=== PATIENT | female | born 1980 | race Caucasian/White ===

== ENCOUNTER 2017-01-29 21:24 | Observation (INO) | payer MEDICAID, SELFPAY ==
[2017-01-29] VITALS (8 sets, daily range): BP systolic 115–186; BP diastolic 80–134; PULSE 58–71; RESP 14–20; TEMP 37.1; O2SAT 95–96; BMI 30.5
--- NOTE | 2017-01-29 21:51 | RAD_ITS ---
STUDY: X-RAY CHEST REASON FOR EXAM: Female, 36 years old. Chest pain TECHNIQUE: Frontal and lateral views of the chest. COMPARISON: January 15, 2017 FINDINGS: There are minimal coarse opacities in both lung bases. There is no focal airspace disease. There is no demonstrated pleural abnormality. Normal size heart. Normal mediastinum and neyda. Normal visualized pulmonary arteries. Normal visualized aortic arch and descending thoracic aorta. Normal visualized thoracic spine. Normal visualized ribs, clavicles, and shoulders. Sternotomy wires are present. There is no demonstrated abnormality of the visualized soft tissue structures of the upper abdomen. RAD/Chest PA and Lateral IMPRESSION: No acute cardiopulmonary abnormalities or changes. There are mild chronic changes in the lung bases. Electronically Signed: Corinne Iglesias MD at 22:28 EDT Tel [phone], Service support ,
--- NOTE | 2017-01-29 21:51 | EKG12_ITS ---
Test Reason : CP Blood Pressure : / mmHG Vent. Rate : 065 BPM Atrial Rate : 065 BPM P-R Int : 140 ms QRS Dur : 086 ms QT Int : 458 ms P-R-T Axes : 048 025 066 degrees QTc Int : 476 ms Normal sinus rhythm Nonspecific ST and T wave abnormality Abnormal ECG Confirmed by RELL LANGSTON ([id number]), communications editor OANH AGARWAL ([id number]) on 01/31/2017 10:54:46 AM Referred By: SUMAN Confirmed By:RELL LANGSTON
[2017-01-29] MEDS: Ondansetron 4 MG/2 ML Vial IV (21:57)
[2017-01-29 21:59] LABS: Absolute Lymphocyte Count 1.42 X10^3/ul (0.83-4.51); Basophil# 0.03 X10^3/uL; Basophil% 0.6 % (0-1); Eosinophil# 0.15 X10^3/uL; Eosinophils% 2.8 % (0-5); Hematocrit 36.2 % (37-47); Hemoglobin 12.4 g/dl (12.0-15.0); Lymphocyte # 1.42 X10^3/ul (4.0); Lymphocyte % 26.2 % (19-41); Mean Corp Hgb Conc 34.3 g/gl (32-36); Mean Corpuscular Hgb 30.2 pg (27.0-32.0); Mean Corpuscular Volume 88.3 fL (81-99); Mean Platelet Vol. 10.3 fl (6.2-12.0); Monocyte# 0.86 X10^3/uL; Monocyte% 15.8 % (0-10); Neutrophil # 2.96 X10^3/uL (2.7-7.7); Neutrophil % 54.4 % (47-70); Platelet Count 215 K/mm3 (150-450); RBC Distribution Width CV 13.6 % (11.6-14.6); RBC Distribution Width SD 43.6 fl (35.1-43.9); White Blood Count 5.4 K/mm3 (4.4-11.0)
[2017-01-29 22:00] LABS: POSITIVE COUNT NO; POSITIVE DIFFERENTIAL NO; POSITIVE MORPHOLOGY NO
[2017-01-29 22:05] LABS: International Normalized Ratio 1.1; Prothrombin Time (Protime)PT. 13.6 SECONDS (11.7-14.9)
[2017-01-29 22:15] LABS: Anion Gap 6 (5-15); BUN 11 mg/dL (7-18); BUN/Creat Ratio 14.3 RATIO (10-20); Calcium,Total 8.6 mg/dL (8.5-10.1); Chloride 108 mmol/L (98-107); Creatinine, Serum 0.77 mg/dL (0.55-1.02); EST Glomerular Filtration Rate 89 mL/min (>60); Est Glom Filt Rate - Afr Amer 108 mL/min (>60); Estimated Creatinine Clearance 85.54 ml/min; Glucose 106 mg/dL (70-110); Potassium 3.5 mmol/L (3.5-5.1); Sodium Level 141 mmol/L (136-145)
[2017-01-29 22:28] LABS: BNP,B-Type NATRIURETIC PEPTIDE 101.5 pg/mL (0-100)
--- NOTE | 2017-01-29 23:05 | ED.VISSUMM ---
- ER Visit Summary Date of Service: 01/29/17 Chief Complaint: Chest pain History of Present Illness: The patient is a 36 F who presents with chest pain. It began about 1 hour ago. She complains of severe left-sided chest heaviness. She has associated shortness of breath on exertion over the past couple of days. She denies any nausea or vomiting. No diaphoresis. She has had some cough and mucus chills and sweats as well. She has had a temperature up to 100.5. She has accompanied medical history including aortic valve repair atrial septal defect repair cardiac catheterization pulmonary hypertension. She also had an acute respiratory failure earlier this year which was of uncertain etiology but did improve with steroid treatment. Physical Examination: Initial blood pressure 174/110 afebrile pulse ox 95% on room air Patient appears uncomfortable Mucous membranes are moist Heart is regular rate and rhythm Diminished air exchange bilaterally and tachypneic but no rales rhonchi or wheezing Abdomen soft Alert and oriented with no focal or lateralizing neurological deficits Test Results: EKG shows sinus rhythm at a rate of [address] there is some subtle ST depression in V2 through V4 as well as lateral T-wave inversions. CBC BMP unremarkable. Troponin negative. BNP 101. INR normal at 1.1. Chest x-ray shows no acute process. Emergency Department Course and Treatment: Patient was given sublingual nitroglycerin as well as morphine and Zofran. Workup notable for EKG changes but otherwise negative. I do feel she needs cardiac monitoring repeat EKGs and cardiac enzymes. She was discussed with the hospitalist and admitted. Treatment Plan: [] Disposition: Admit Impression: Chest pain Hypertension Nonspecific EKG changes ED Disposition - Plan for ED Patient: Chief Complaint: Chest Pain Referrals: Bill Dai MD [Primary Care Provider] -
--- NOTE | 2017-01-29 23:16 | PCM.HP.STD ---
Problem List (1) Chest pain Status: Acute (2) SOB (shortness of breath) Status: Acute (3) Cough Status: Acute History of Present Illness Date of Admission: 01/30/17 Chief Complaint: cough and chest pain The patient is a 36 year old F she reports some cough over the past few days, nothing came up she had on and off chest pains center and pressure like, some more over the the left over the last few days. she then had more significant chest pressure last night at 9:30 central heaviness pressure like worse with exhaling, frequent coughing happens at rest, she has not exerted herself to see if gets worse with exertion. Past Medical History Past Medical History (Chronic Problems): Chronic Problems Tricuspid regurgitation (Chronic) Pulmonary hypertension (Chronic) Seizure disorder (Chronic) Hypertension (Chronic) AI (aortic insufficiency) (Chronic) Fibromyalgia (Chronic) Anxiety disorder (Chronic) age17,mitral valve prolapse,bicuspid aor (Chronic) atrial septic defect- repaired (Chronic) Arthritis (Chronic) Exercise-induced asthma (Chronic) Migraine (Chronic) Syringomyelia (Chronic) Leiomyosarcoma (Chronic) Allergies amitriptyline Allergy (Verified 01/29/17 21:26) Other states rhabdomyolosis from it amoxicillin [Amoxicillin] Allergy (Verified 01/29/17 21:26) Rash erythromycin base [Erythromycin Base] Allergy (Verified 01/29/17 21:26) Rash levofloxacin [From Levaquin] Allergy (Verified 01/29/17 21:26) Swelling milnacipran Allergy (Verified 01/29/17 21:26) Other states got rhabdomyolysis from it milnacipran HCl [From Savella] Allergy (Verified 01/29/17 21:26) Other states had rhabdomyolysis acetaminophen [From Tylenol] Adverse Reaction (Mild, Verified 01/29/17 21:26) Vomiting Only when taking in large amounts celecoxib [From Celebrex] Adverse Reaction (Verified 01/29/17 21:26) Other suicidal thoughts diphenhydramine HCl [From Benadryl] Adverse Reaction (Verified 01/29/17 21:26) muscle spasms duloxetine HCl [From Cymbalta] Adverse Reaction (Verified 01/29/17 21:26) Other states causes suicidal thoughts meloxicam Adverse Reaction (Verified 01/29/17 21:26) Swelling of legs/chest pain Home Medications: Ambulatory Orders Medication Instructions Recorded Gabapentin [Neurontin] 400 mg PO 4X/DAY 12/23/15 Tizanidine HCl [Zanaflex] 4 mg PO Q8H PRN 12/23/15 Clonazepam [Klonopin] 0.5 mg PO QHS 02/23/16 Fluoxetine [Prozac] 40 mg PO DAILY 03/15/16 MedroxyPROGESTERone [Depo-Provera] 150 mg IM .[id number] 03/15/16 Carvedilol [Coreg (Beta Ector)] 6.25 mg PO BID #60 tablet 09/27/16 Famotidine [Pepcid] 20 mg PO BID #60 tablet 09/27/16 Levetiracetam [Keppra] 1,500 mg PO BID #180 tablet 09/27/16 Trazodone HCl [Desyrel] 150 mg PO HS #30 tablet 09/27/16 Albuterol Inhaler [Ventolin Hfa 1 puff INHALATION Q4H PRN PRN 10/02/16 (SP)] Naproxen [Naprosyn] 660 mg PO BID 10/02/16 Surgical History: adenoidectomy, - - 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 repair 2000, mitral valve repair, repair of atrial septal defect. History of , and left oophorectomy. BL TKR by Dr. 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 Denies: Edema Respiratory: Reports: Cough, Shortness of Breath, Shortness of breath at rest. Denies: Sputum production Gastrointestinal: Reports: Nausea. Denies: Diarrhea, Vomiting Genitourinary: Reports: Frequency. Denies: Dysuria, Hematuria Skin: Denies: Rash Neurological: Reports: Confusion. Denies: Balance problems, Change in Speech, Slurred speech Endocrine: Denies: Change in Body Habitus Hematologic/ Lymphatic: Denies: Adenopathy VTE Information - Inpt Only VTE Present on Admission: No Patient Problems: Active and Suspected Problems Chest pain (Acute) SOB (shortness of breath) (Acute) Cough (Acute) - Physical Exam General: Alert - mild resp distress due to coughing, some audible wheezing., - HEENT: Atraumatic, PERRLA Oral: Moist Mucosa Neck: Supple Lungs: Diminished, Wheezes Cardiovascular: Regular rate, Regular Rhythm, Normal S1, Normal S2, No murmurs Abdomen: Soft, Non Tender, Non-Distended Extremities: No edema Skin: No rashes Musculoskeletal: No Tenderness to Palpation of Joints or Extremities Lymphatic: No Cervical, Supraclavicular, or Inguinal Adenopathy Neurological: Neuro grossly intact Psych/Mental Status: - - mild distress due to sob Vital Signs Temp Pulse Resp BP Pulse Ox 98.7 F 63 14 136/100 96 01/29/17 21:27 01/29/17 22:39 01/29/17 22:39 01/29/17 22:39 01/29/17 22:39 Oxygen Flow Rate 2 Oxygen Delivery Method Room Air Weight: 178 lb 2.136 oz Body Mass Index (BMI) 30.5 Laboratory Tests Past 24 Hrs 01/29/17 01/29/17 01/29/17 21:40 21:40 21:40 WBC 5.4 RBC 4.10 L Hgb 12.4 Hct 36.2 L MCV 88.3 MCH 30.2 MCHC 34.3 RDW 13.6 RDW Differential 43.6 Plt Count 215 MPV 10.3 Immature Gran % (Auto) 0.200 Neut % (Auto) 54.4 Lymph % (Auto) 26.2 Hand % (Auto) 15.8 H Eos % (Auto) 2.8 Baso % (Auto) 0.6 Absolute Neuts (auto) 3.0 Absolute Lymphs (auto) 1.42 Total Counted Not Reportable PT 13.6 INR 1.1 Sodium 141 Potassium 3.5 Chloride 108 H Carbon Dioxide 27.0 Anion Gap 6 BUN 11 Creatinine 0.77 Estim Creat Clear Calc 85.54 Est GFR (MDRD) Af Amer 108 Est GFR (MDRD) Non-Af 89 BUN/Creatinine Ratio 14.3 Glucose 106 Calcium 8.6 Troponin I < 0.02 B-Natriuretic Peptide 01/29/17 21:40 WBC RBC Hgb Hct MCV MCH MCHC RDW RDW Differential Plt Count MPV Immature Gran % (Auto) Neut % (Auto) Lymph % (Auto) Hand % (Auto) Eos % (Auto) Baso % (Auto) Absolute Neuts (auto) Absolute Lymphs (auto) Total Counted PT INR Sodium Potassium Chloride Carbon Dioxide Anion Gap BUN Creatinine Estim Creat Clear Calc Est GFR (MDRD) Af Amer Est GFR (MDRD) Non-Af BUN/Creatinine Ratio Glucose Calcium Troponin I B-Natriuretic Peptide 101.5 H Assessment/Plan Active and Suspected Problems Chest pain (Acute) SOB (shortness of breath) (Acute) Cough (Acute) ekg with sinus rhythm, nonspecific st changes 1 chest pressure and coughing she had a recent admission at [facility] ~3weeks ago the was negative per verbal report reports neg heart cath in many years ago before valve surgery that was normal no known history of cad but sig valvular disease last echo in august of this year ef 53% and pulmonary htn pa pressure of 50 she is on oxygen with exertion at home reports recent neg sleep study, pft done show mild restrictive defect with decreased dlco she does have a history of pulmonary embulus/dvt but is off anticoagulation she was also admitted in august of this year with resp failure and intubation for 8 days though due to + ards/infection/possible steroid responsive interstitual lung disease. strongly suspect primary pulmonary process due to sob, cough wheezing and recent history complicated pulmonary history will draw cardiac enzymes refer to cardiology due to ongoing chest pain doubt infection was treated with zithromax 3 week ago and no sign of infection on cxr. However I did follow up with a CTA of the chest due to her history of PE and DVT there is no evidence of blood clots is no evidence of failure or infiltrate suspect return or flare up of interstitual lung disease could be causing her shortness of breath and symptoms I discussed with pulmonary in the past she was steroid responsive they may consider restarting steroids after reviewing her recent CAT scan asthma She is being supplied with oxygen and breathing treatments she does have some wheezing on exam 2history aortic valve surgery and asd repair no evidence of failure 3 anxiety cont klonipin 4h/o dvt and pe. off anticoagulation lovenox for dvt prophylaxis 5 h/o seizure disorder cont keppra
[2017-01-30] VITALS (20 sets, daily range): BP systolic 81–129; BP diastolic 46–78; PULSE 55–70; RESP 16–19; TEMP 36.2–37.1; O2SAT 93–99; BMI 29.8; BMI 29.9
--- NOTE | 2017-01-30 02:24 | CT_ITS ---
STUDY: CTA CHEST REASON FOR EXAM: Female, 36 years old. Chest pain and cough, history of leiomyosarcoma RADIATION DOSAGE (If Supplied By Facility): CTDIvol = ( 12.73 ) mGy, DLP = ( 517.35 ) mGycm TECHNIQUE: The examination was performed with the intravenous administration of 100ml ml of Isovue 370 contrast material. Post-processing of the angiographic images was performed, with multiplanar reformation and 3D reconstruction. Individualized dose optimization techniques were used for this CT. COMPARISON: 11/17/2016 FINDINGS: Median sternotomy wires. Normal enhancement of the main pulmonary artery and right and left pulmonary arteries. Normal enhancement of the bilateral peripheral pulmonary arteries. There is no demonstrated pulmonary embolism. Normal thoracic aorta and visualized great vessels. There is no demonstrated aortic dissection. Normal heart and pericardium. Normal mediastinum. Normal hilar regions. Normal visualized trachea and bronchi. The lungs are well expanded. Normal pulmonary parenchyma. Normal pleura. Normal chest wall structures. Remote right rib deformities. Scarring along the vertical fissure on the right. Normal visualized upper abdomen. CT/CTA Chest W/WO Contrast IMPRESSION: Normal CTA chest examination, without a demonstrated pulmonary embolism or arterial dissection. Electronically Signed: Bill Valdez MD at 3:33 EDT Tel , Service support ,
[2017-01-30] MEDS: Ondansetron 4 MG/2 ML Vial IV (04:40)
[2017-01-30 08:03] LABS: CRP, High Sensitivity Cardiac 0.58 mg/L
[2017-01-30 08:14] LABS: Erythrocyte Sedimentation Rate < 1 mm/hr (0-20)
[2017-01-30] MEDS: oxyCODONE 5 MG Tablet PO ×4 (08:16→21:35)
[2017-01-30] MEDS: Gabapentin 400 MG Capsule PO ×4 (08:16→21:32)
--- NOTE | 2017-01-30 09:22 | PCM.CONS.C ---
Problem List (1) asd repair Status: Acute (2) H/O aortic valve repair Status: Acute (3) Chest pain Status: Acute (4) Cough Status: Acute (5) SOB (shortness of breath) Status: Acute (6) Pulmonary hypertension Status: Chronic Reason for Consult Date of Consultation: 01/30/17 Reason for Consultation: Chest pain, history of ASD repair, history of aortic valve repair, mitral valve prolapse, hypertension, tobacco abuse. History of Present Illness: The patient is a 36 year old F, with multiple medical problems, recently admitted for pneumonia around August 2016 which apparently deteriorated to the point where she required intubation. From a cardiac standpoint she has a history of ASD repair and supposedly aortic valve repair performed at the [facility] in 2000. 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 Daigle in the [facility]. The patient also has a history of mild global LV dysfunction with an EF of 50%, moderate pulmonary hypertension with an RVSP of 50 mmHg, with recent echocardiogram dated 09/16/16. The patient reports that she had a catheterization prior to her ASD repair and was told she had normal coronary arteries in 2000. She has not had a catheterization since that time. Patient states that she developed new onset atypical nonexertional chest pain yesterday evening with associated shortness of breath. This was localized over the left side of her chest and was unrelieved with morphine or nitroglycerin. Upon arrival the patient was very hypertensive, but her blood pressure has improved with pain management therapy. Her initial EKG showed normal sinus rhythm with nonspecific anterior ST segment changes, no acute ST elevation. She was admitted and placed on intermittent doses of morphine, nitroglycerin, and ruled out for myocardial infarction with troponins negative ?3. She underwent a CTA of her chest which demonstrated no evidence of pneumonia, infiltrates, or pulmonary embolism. Nonetheless she was placed on subcu Lovenox therapy. Patient underwent a non-walking dobutamine echocardiogram as she is unable to walk due to her knee and the fact that she got oxycodone to relieve her chest pain. Her debridement echocardiogram was negative for inducible ischemia. She had no additional chest pain symptoms. She did have transient bigeminy during the low doses of dobutamine which then resolved with higher doses of dobutamine. [] Past Medical History Allergies/Adverse Reactions: Allergies amitriptyline Allergy (Verified 01/29/17 21:26) Other states rhabdomyolosis from it amoxicillin [Amoxicillin] Allergy (Verified 01/29/17 21:26) Rash erythromycin base [Erythromycin Base] Allergy (Verified 01/29/17 21:26) Rash levofloxacin [From Levaquin] Allergy (Verified 01/29/17 21:26) Swelling milnacipran Allergy (Verified 01/29/17 21:26) Other states got rhabdomyolysis from it milnacipran HCl [From Savella] Allergy (Verified 01/29/17 21:26) Other states had rhabdomyolysis acetaminophen [From Tylenol] Adverse Reaction (Mild, Verified 01/29/17 21:26) Vomiting Only when taking in large amounts celecoxib [From Celebrex] Adverse Reaction (Verified 01/29/17 21:26) Other suicidal thoughts diphenhydramine HCl [From Benadryl] Adverse Reaction (Verified 01/29/17 21:26) muscle spasms duloxetine HCl [From Cymbalta] Adverse Reaction (Verified 01/29/17 21:26) Other states causes suicidal thoughts meloxicam Adverse Reaction (Verified 01/29/17 21:26) Swelling of legs/chest pain Home Medications: Ambulatory Orders Medication Instructions Recorded Gabapentin [Neurontin] 400 mg PO 4X/DAY 12/23/15 Tizanidine HCl [Zanaflex] 4 mg PO Q8H PRN 12/23/15 Clonazepam [Klonopin] 0.5 mg PO QHS 02/23/16 Fluoxetine [Prozac] 40 mg PO DAILY 03/15/16 MedroxyPROGESTERone [Depo-Provera] 150 mg IM .[id number] 03/15/16 Carvedilol [Coreg (Beta Ector)] 6.25 mg PO BID #60 tablet 09/27/16 Famotidine [Pepcid] 20 mg PO BID #60 tablet 09/27/16 Levetiracetam [Keppra] 1,500 mg PO BID #180 tablet 09/27/16 Trazodone HCl [Desyrel] 150 mg PO HS #30 tablet 09/27/16 Albuterol Inhaler [Ventolin Hfa 1 puff INHALATION Q4H PRN PRN 10/02/16 (SP)] Naproxen [Naprosyn] 660 mg PO BID 10/02/16 Past Medical History (Chronic Problems): Chronic Problems AI (aortic insufficiency) (Chronic) Anxiety disorder (Chronic) Arthritis (Chronic) Exercise-induced asthma (Chronic) Fibromyalgia (Chronic) Hypertension (Chronic) Leiomyosarcoma (Chronic) Migraine (Chronic) Pulmonary hypertension (Chronic) Seizure disorder (Chronic) Syringomyelia (Chronic) Tricuspid regurgitation (Chronic) age17,mitral valve prolapse,bicuspid aor (Chronic) atrial septic defect- repaired (Chronic) Surgical History: adenoidectomy, - - 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 repair 2000, mitral valve repair, repair of atrial septal defect. History of , and left oophorectomy. BL TKR by Dr. 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 Denies: Chest Discomfort, Shortness of Breath, Orthopnea, PND, Peripheral Edema, Palpitations, Lightheadedness, Dizziness, Near Syncope, Syncope Respiratory: Denies: Cough, Sputum Production, Hemoptysis Gastrointestinal: Denies: Hematemesis, Hematochezia, Melena Genitourinary: Denies: Dysuria, Hematuria Skin: Denies: Rash Subjectve: Patient resting comfortably, does have significant cough, patient states her pain is worse when she exhales. Her pain is dull and constant other than that. Objective: Vital Signs Temp Pulse Resp BP Pulse Ox 97.4 F 57 18 110/57 94 01/30/17 08:08 01/30/17 08:08 01/30/17 08:08 01/30/17 08:08 01/30/17 08:08 Oxygen Flow Rate 2 Oxygen Delivery Method Room Air Weight: 79.1 kg Body Mass Index (BMI) 29.8 Intake and Output for Last 24 Hours 01/28/17 01/29/17 01/30/17 23:59 23:59 23:59 Intake Total 400 Balance 400 General: Awake, Alert, Oriented x 3 HEENT: PERRL, EOMI, Sclera Non Icteric Neck: Supple, Good ROM, No Lymph Node Enlargement Lungs: Clear to auscultation Cardiovascular: Regular Rhythm, Normal S1, Normal S2, No Murmurs, No Rubs, No Gallops Vascular: No Carotid Bruits, Normal Femoral Pulses, Normal Radial Pulses, Normal Dorsalis Pedal Pulse, Normal Posterior Tibial Pulses Abdomen: Bowel Sounds Present, Soft, Non Tender, No HSM, No Organomegaly Extremities: No Cyanosis, No Clubbing, No edema Neurological: No Focal Motor or Sensory Deficit 01/30/17 01:54: Troponin I < 0.02 01/30/17 05:40: Troponin I < 0.02 Rhythm: EKG: As above ECHO: Pending, preliminary result shows mild global LV dysfunction with an EF around 5 0%, moderate right ventricular enlargement. Stress Test: Debridement echocardiogram performed with Definity agent and with atropine assistance showed no overt ischemia, no additional chest pain recorded during infusion. Vital results pending. Cardiac Cath: PCI: CT Surgery: Holter monitor: EPS: PPM: CXR: Chest CT Scan: Assessment/Plan #1. Atypical chest pain: Patient presents with atypical nonexertional chest pain, no significant dynamic EKG changes although she does have some minor ST segment nonspecific changes in the anterior leads which were not present on her previous EKG. Her troponins are negative ?3, and an ESR and high sensitive CRP are pending. Her CTA was negative for overt pulmonary emboli, although this does not exclude the possibility of smaller pulmonary emboli given the pleuritic nature of her chest pain. Pulmonary results of her dobutamine echocardiogram this morning are negative for inducible ischemia. At this point I do not believe the patient requires a diagnostic coronary angiogram however this may be necessary in order to rule out possible coronary disease given her ongoing smoking, and previous history. At this point I would recommend continuing baby aspirin, obtaining a d-dimer to determine if she may have a nondetectable pulmonary embolism. Recommend continuing Coreg for heart rate and blood pressure control and adding Cozaar 25 mg p.o. daily for afterload reduction given her mild LV dysfunction. Her mild LV dysfunction is at baseline and most likely was a result of her ongoing ASD prior to its repair and possible aortic insufficiency prior to her suppose it aortic valve repair as well. Recommend obtaining the old records from Dr. Daigle's office or the [facility] as to the exact nature of her surgical procedure. 2. Pleuritis: The patient has signs and symptoms of possible pleuritis and has a history of pneumonia in the past. Her pericardial sac does not appear to have any pericardial effusion is most likely not pericarditis, and no rubs are detected on physical exam. Patient appears to have a allergy to meloxicam and other NSAIDs, so would not recommend ibuprofen at this time. Recommend prednisone p.o. if her sed rate or hs CRP are elevated. 3. Tobacco cessation: I had a long and thorough discussion with the patient regarding tobacco use, and strongly recommended that she discontinue all tobacco products. 4. Hyperlipidemia: Recommend obtaining a fasting lipid profile. #5. Thank you very much for the opportunity to put dissipate in the cardiac care of your patient. Consultation time took place between 745 and 8:15 AM.
--- NOTE | 2017-01-30 09:33 | CON.PCM_ITS ---
Problem List (1) asd repair Status: Acute (2) H/O aortic valve repair Status: Acute (3) Chest pain Status: Acute (4) Cough Status: Acute (5) SOB (shortness of breath) Status: Acute (6) Pulmonary hypertension Status: Chronic Reason for Consult Date of Consultation: 01/30/17 Reason for Consultation: Chest pain, history of ASD repair, history of aortic valve repair, mitral valve prolapse, hypertension, tobacco abuse. History of Present Illness: The patient is a 36 year old F, with multiple medical problems, recently admitted for pneumonia around August 2016 which apparently deteriorated to the point where she required intubation. From a cardiac standpoint she has a history of ASD repair and supposedly aortic valve repair performed at the [facility] in 2000. Her primary it integration architect is Dr. Daigle in the [facility]. The patient also has a history of mild global LV dysfunction with an EF of 50%, moderate pulmonary hypertension with an RVSP of 50 mmHg, with recent echocardiogram dated 09/16/16. The patient reports that she had a catheterization prior to her ASD repair and was told she had normal coronary arteries in 2000. She has not had a catheterization since that time. Patient states that she developed new onset atypical nonexertional chest pain yesterday evening with associated shortness of breath. This was localized over the left side of her chest and was unrelieved with morphine or nitroglycerin. Upon arrival the patient was very hypertensive, but her blood pressure has improved with pain management therapy. Her initial EKG showed normal sinus rhythm with nonspecific anterior ST segment changes, no acute ST elevation. She was admitted and placed on intermittent doses of morphine, nitroglycerin, and ruled out for myocardial infarction with troponins negative ?3. She underwent a CTA of her chest which demonstrated no evidence of pneumonia, infiltrates, or pulmonary embolism. Nonetheless she was placed on subcu Lovenox therapy. Patient underwent a non-walking dobutamine echocardiogram as she is unable to walk due to her knee and the fact that she got oxycodone to relieve her chest pain. Her debridement echocardiogram was negative for inducible ischemia. She had no additional chest pain symptoms. She did have transient bigeminy during the low doses of dobutamine which then resolved with higher doses of dobutamine. [] Past Medical History Allergies/Adverse Reactions: Allergies amitriptyline Allergy (Verified 01/29/17 21:26) Other states rhabdomyolosis from it amoxicillin [Amoxicillin] Allergy (Verified 01/29/17 21:26) Rash erythromycin base [Erythromycin Base] Allergy (Verified 01/29/17 21:26) Rash levofloxacin [From Levaquin] Allergy (Verified 01/29/17 21:26) Swelling milnacipran Allergy (Verified 01/29/17 21:26) Other states got rhabdomyolysis from it milnacipran HCl [From Savella] Allergy (Verified 01/29/17 21:26) Other states had rhabdomyolysis acetaminophen [From Tylenol] Adverse Reaction (Mild, Verified 01/29/17 21:26) Vomiting Only when taking in large amounts celecoxib [From Celebrex] Adverse Reaction (Verified 01/29/17 21:26) Other suicidal thoughts diphenhydramine HCl [From Benadryl] Adverse Reaction (Verified 01/29/17 21:26) muscle spasms duloxetine HCl [From Cymbalta] Adverse Reaction (Verified 01/29/17 21:26) Other states causes suicidal thoughts meloxicam Adverse Reaction (Verified 01/29/17 21:26) Swelling of legs/chest pain Home Medications: Ambulatory Orders Medication Instructions Recorded Gabapentin [Neurontin] 400 mg PO 4X/DAY 12/23/15 Tizanidine HCl [Zanaflex] 4 mg PO Q8H PRN 12/23/15 Clonazepam [Klonopin] 0.5 mg PO QHS 02/23/16 Fluoxetine [Prozac] 40 mg PO DAILY 03/15/16 MedroxyPROGESTERone [Depo-Provera] 150 mg IM [id number] 03/15/16 Carvedilol [Coreg (Beta Ector)] 6.25 mg PO BID #60 tablet 09/27/16 Famotidine [Pepcid] 20 mg PO BID #60 tablet 09/27/16 Levetiracetam [Keppra] 1,500 mg PO BID #180 tablet 09/27/16 Trazodone HCl [Desyrel] 150 mg PO HS #30 tablet 09/27/16 Albuterol Inhaler [Ventolin Hfa 1 puff INHALATION Q4H PRN PRN 10/02/16 (SP)] Naproxen [Naprosyn] 660 mg PO BID 10/02/16 Past Medical History (Chronic Problems): Chronic Problems AI (aortic insufficiency) (Chronic) Anxiety disorder (Chronic) Arthritis (Chronic) Exercise-induced asthma (Chronic) Fibromyalgia (Chronic) Hypertension (Chronic) Leiomyosarcoma (Chronic) Migraine (Chronic) Pulmonary hypertension (Chronic) Seizure disorder (Chronic) Syringomyelia (Chronic) Tricuspid regurgitation (Chronic) age17,mitral valve prolapse,bicuspid aor (Chronic) atrial septic defect- repaired (Chronic) Surgical History: adenoidectomy, - - 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 repair 2000, mitral valve repair, repair of atrial septal defect. History of , and left oophorectomy. BL TKR by Dr. Lyon at the [facility] in August Psychiatric History: Anxiety CLINICAL RECRUITER History: No pertinent CLINICAL RECRUITER history - *Family History Maternal History Items: - - alive age 59: breast cancer, stroke, diabetes,heart attack Paternal History Items: No pertinent history - alive age 62 Smoking Status: Current every day smoker Tobacco Use: Cigarettes Alcohol: None Review of Systems - Review of Systems General: Denies: Fever, Night Sweats, Fatigue Cardiovascular: Reports: Chest Discomfort at Rest, Shortness of Breath at Rest. Denies: Chest Discomfort, Shortness of Breath, Orthopnea, PND, Peripheral Edema, Palpitations, Lightheadedness, Dizziness, Near Syncope, Syncope Respiratory: Denies: Cough, Sputum Production, Hemoptysis Gastrointestinal: Denies: Hematemesis, Hematochezia, Melena Genitourinary: Denies: Dysuria, Hematuria Skin: Denies: Rash Subjectve: Patient resting comfortably, does have significant cough, patient states her pain is worse when she exhales. Her pain is dull and constant other than that. Objective: Vital Signs Temp Pulse Resp BP Pulse Ox 97.4 F 57 18 110/57 94 01/30/17 08:08 01/30/17 08:08 01/30/17 08:08 01/30/17 08:08 01/30/17 08:08 Oxygen Flow Rate 2 Oxygen Delivery Method Room Air Weight: 79.1 kg Body Mass Index (BMI) 29.8 Intake and Output for Last 24 Hours 01/28/17 01/29/17 01/30/17 23:59 23:59 23:59 Intake Total 400 Balance 400 General: Awake, Alert, Oriented x 3 HEENT: PERRL, EOMI, Sclera Non Icteric Neck: Supple, Good ROM, No Lymph Node Enlargement Lungs: Clear to auscultation Cardiovascular: Regular Rhythm, Normal S1, Normal S2, No Murmurs, No Rubs, No Gallops Vascular: No Carotid Bruits, Normal Femoral Pulses, Normal Radial Pulses, Normal Dorsalis Pedal Pulse, Normal Posterior Tibial Pulses Abdomen: Bowel Sounds Present, Soft, Non Tender, No HSM, No Organomegaly Extremities: No Cyanosis, No Clubbing, No edema Neurological: No Focal Motor or Sensory Deficit 01/30/17 01:54: Troponin I < 0.02 01/30/17 05:40: Troponin I < 0.02 Rhythm: EKG: As above ECHO: Pending, preliminary result shows mild global LV dysfunction with an EF around 5 0%, moderate right ventricular enlargement. Stress Test: Debridement echocardiogram performed with Definity agent and with atropine assistance showed no overt ischemia, no additional chest pain recorded during infusion. Vital results pending. Cardiac Cath: PCI: CT Surgery: Holter monitor: EPS: PPM: CXR: Chest CT Scan: Assessment/Plan #1. Atypical chest pain: Patient presents with atypical nonexertional chest pain, no significant dynamic EKG changes although she does have some minor ST segment nonspecific changes in the anterior leads which were not present on her previous EKG. Her troponins are negative ?3, and an ESR and high sensitive CRP are pending. Her CTA was negative for overt pulmonary emboli, although this does not exclude the possibility of smaller pulmonary emboli given the pleuritic nature of her chest pain. Pulmonary results of her dobutamine echocardiogram this morning are negative for inducible ischemia. At this point I do not believe the patient requires a diagnostic coronary angiogram however this may be necessary in order to rule out possible coronary disease given her ongoing smoking, and previous history. At this point I would recommend continuing baby aspirin, obtaining a d-dimer to determine if she may have a nondetectable pulmonary embolism. Recommend continuing Coreg for heart rate and blood pressure control and adding Cozaar 25 mg p.o. daily for afterload reduction given her mild LV dysfunction. Her mild LV dysfunction is at baseline and most likely was a result of her ongoing ASD prior to its repair and possible aortic insufficiency prior to her suppose it aortic valve repair as well. Recommend obtaining the old records from Dr. Daigle 's office or the [facility] as to the exact nature of her surgical procedure. 2. Pleuritis: The patient has signs and symptoms of possible pleuritis and has a history of pneumonia in the past. Her pericardial sac does not appear to have any pericardial effusion is most likely not pericarditis, and no rubs are detected on physical exam. Patient appears to have a allergy to meloxicam and other NSAIDs, so would not recommend ibuprofen at this time. Recommend prednisone p.o. if her sed rate or hs CRP are elevated. 3. Tobacco cessation: I had a long and thorough discussion with the patient regarding tobacco use, and strongly recommended that she discontinue all tobacco products. 4. Hyperlipidemia: Recommend obtaining a fasting lipid profile. #5. Thank you very much for the opportunity to put dissipate in the cardiac care of your patient. Consultation time took place between 745 and 8:15 AM.
[2017-01-30] MEDS: Famotidine 20 MG Tablet PO ×2 (09:56→21:31)
[2017-01-30] MEDS: FLUoxetine 20 MG Capsule 40 MG PO (09:56)
[2017-01-30] MEDS: levETIRAcetam 500 MG Tablet 1500 MG PO ×2 (09:56→21:32)
--- NOTE | 2017-01-30 10:22 | PCM.PROGNOTE ---
<Tony Briceno - Last Filed: 01/30/17 10:22> Patient Problems: Active and Suspected Problems Chest pain (Acute) Cough (Acute) H/O aortic valve repair (Acute) SOB (shortness of breath) (Acute) asd repair (Acute) Subjective: Pt continues to have 7/10 chest and back pain she describes as pressure that radiates from her left anterior chest into the left side of her neck, somewhat alleviated with IV morphine. She has a dry cough, no SOB. She feels confused and states yesterday when this started she was very confused and the people around her told her she was not making any sense. She has mild nausea without vomiting. She has LLQ pain with urinary frequency and no dysuria - recently treated with macrobid and recently had a stone. We discussed smoking cessation, she says she is not addicted, only smokes less than 1 ppd and can quit anytime and agrees to quit at [place]. No dizziness or LH. - Physical Exam General: Alert, Oriented x3, Cooperative HEENT: Atraumatic, PERRLA, EOMI, Normocephalic Neck: Supple, No JVD, Negative Carotid Bruits Lungs: Clear to auscultation, Normal air movement Cardiovascular: Regular rate, No murmurs Abdomen: Bowel Sounds Present, Soft, Non Tender Extremities: No edema, Capillary Refill Less than 3 Seconds Skin: No rashes, No breakdown Musculoskeletal: No Tenderness to Palpation of Joints or Extremities Neurological: Cranial nerves II-XII grossly intact Psych/Mental Status: Normal Affect, Appropriate, Alert and oriented to time, place, person, mood and affect Vital Signs Temp Pulse Resp BP Pulse Ox 97.7 F 64 18 90/52 94 01/30/17 10:17 01/30/17 10:17 01/30/17 10:17 01/30/17 10:01/30/17 10:17 Oxygen Flow Rate 2 Oxygen Delivery Method Room Air Weight: 79.1 kg Body Mass Index (BMI) 29.8 Intake and Output for Last 24 Hours 01/28/17 01/29/17 01/30/17 23:59 23:59 23:59 Intake Total 400 Balance 400 Laboratory Tests Past 24 Hrs 01/30/17 01/30/17 01/30/17 01:54 05:40 05:40 ESR < 1 Troponin I < 0.02 < 0.02 C-React Prot High Sens 01/30/17 05:40 ESR Troponin I C-React Prot High Sens 0.58 Assessment/Plan Active and Suspected Problems Chest pain (Acute) Cough (Acute) H/O aortic valve repair (Acute) SOB (shortness of breath) (Acute) asd repair (Acute) A/P: 1. Chest pain - stress test pending. Cards following - per their note stress echo is negative, and they do not recommend cath, instead continue coreg, add cozaar, continue aspirin. . Trop neg x 3. BNP 101.5. CRP and ESR neg. CTA neg. Does have hx of pneumonia that required intubation (august) and has dry cough, requesting cough medicine. Add robitussin. No evidence of pericarditis. Stop IV pain medications. Prior heart cath 2000 with normal coronaries. 2. Currently low BP however was just treated for HTN down at stress test and then received dose of morphine when she arrived at the floor. 3. Tobacco abuse - pt denies addiction and states she will quit starting now. 4. HLD - lipid panel tomorrow AM. 5. Anx/Dep/?borderline personality disorder - prozac, klonopin, trazodone, compazine 6. H/o Seizure Disorder - keppra 7. Hx of DVT PE - not on OAC, CTA neg. 8. Hx of AV repair and ASD repair DVT ppx: lovenox DC planning: advance diet and change pain control to PO only. Wait for HTN to improve, antihtn increased but will need to monitor for continued hypotension. <Juan Miguel Diaz - Last Filed: 01/30/17 13:29> - Physical Exam General: Alert, Cooperative HEENT: Atraumatic, PERRLA, EOMI, Normocephalic Neck: Supple, No JVD, Negative Carotid Bruits Lungs: Clear to auscultation, Normal air movement Cardiovascular: Regular rate, Regular Rhythm, Normal S1, Normal S2, No murmurs Abdomen: Bowel Sounds Present, Soft, Non Tender Extremities: No edema, Capillary Refill Less than 3 Seconds Skin: No rashes, No breakdown Psych/Mental Status: Normal Affect, Appropriate Vital Signs Temp Pulse Resp BP Pulse Ox 36.6 C 55 18 113/69 99 01/30/17 13:26 01/30/17 13:26 01/30/17 13:26 01/30/17 13:26 01/30/17 13:26 Oxygen Flow Rate 2 Oxygen Delivery Method Nasal Cannula Weight: 79.1 kg Body Mass Index (BMI) 29.8 Intake and Output for Last 24 Hours 01/28/17 01/29/17 01/30/17 23:59 23:59 23:59 Intake Total 760 Balance 760 Laboratory Tests Past 24 Hrs 01/30/17 01/30/17 01/30/17 01:54 05:40 05:40 ESR < 1 D-Dimer Quant (PE/DVT) Troponin I < 0.02 < 0.02 C-React Prot High Sens 01/30/17 01/30/17 01/30/17 05:40 11:35 11:35 ESR D-Dimer Quant (PE/DVT) 0.27 Troponin I 0.25 H C-React Prot High Sens 0.58 Assessment/Plan She seen and examined independently. Agree with the above note by the physician mailroom assistant 1. Chest pain: Patient stress test was normal, however fortunately came back at 0.25. Patient's previous workup and been negative as well. Cardiology has been notified and plans for left heart catheterization in the morning. We will check a urine drug screen to rule out any drug-induced vasospasm, such as cocaine or methamphetamines.
--- NOTE | 2017-01-30 10:37 | PN_ITS ---
Addendum entered and electronically signed by Tony Briceno PA 01/30/17 12:50: Fourth troponin was elevated, discharge canceled, consult cardiology. Original Note: <Tony Briceno - Last Filed: 01/30/17 10:22> Patient Problems: Active and Suspected Problems Chest pain (Acute) Cough (Acute) H/O aortic valve repair (Acute) SOB (shortness of breath) (Acute) asd repair (Acute) Subjective: Pt continues to have 7/10 chest and back pain she describes as pressure that radiates from her left anterior chest into the left side of her neck, somewhat alleviated with IV morphine. She has a dry cough, no SOB. She feels confused and states yesterday when this started she was very confused and the people around her told her she was not making any sense. She has mild nausea without vomiting. She has LLQ pain with urinary frequency and no dysuria - recently treated with macrobid and recently had a stone. We discussed smoking cessation, she says she is not addicted, only smokes less than 1 ppd and can quit anytime and agrees to quit at [place]. No dizziness or LH. - Physical Exam General: Alert, Oriented x3, Cooperative HEENT: Atraumatic, PERRLA, EOMI, Normocephalic Neck: Supple, No JVD, Negative Carotid Bruits Lungs: Clear to auscultation, Normal air movement Cardiovascular: Regular rate, No murmurs Abdomen: Bowel Sounds Present, Soft, Non Tender Extremities: No edema, Capillary Refill Less than 3 Seconds Skin: No rashes, No breakdown Musculoskeletal: No Tenderness to Palpation of Joints or Extremities Neurological: Cranial nerves II-XII grossly intact Psych/Mental Status: Normal Affect, Appropriate, Alert and oriented to time, place, person, mood and affect Vital Signs Temp Pulse Resp BP Pulse Ox 97.7 F 64 18 90/52 94 01/30/17 10:01/30/17 10:01/30/17 10:01/30/17 10:01/30/17 10:17 Oxygen Flow Rate 2 Oxygen Delivery Method Room Air Weight: 79.1 kg Body Mass Index (BMI) 29.8 Intake and Output for Last 24 Hours 01/28/17 01/29/17 01/30/17 23:59 23:59 23:59 Intake Total 400 Balance 400 Laboratory Tests Past 24 Hrs 01/30/17 01/30/17 01/30/17 01:54 05:40 05:40 ESR < 1 Troponin I < 0.02 < 0.02 C-React Prot High Sens 01/30/17 05:40 ESR Troponin I C-React Prot High Sens 0.58 Assessment/Plan Active and Suspected Problems Chest pain (Acute) Cough (Acute) H/O aortic valve repair (Acute) SOB (shortness of breath) (Acute) asd repair (Acute) A/P: 1. Chest pain - stress test pending. Cards following - per their note stress echo is negative, and they do not recommend cath, instead continue coreg, add cozaar, continue aspirin. . Trop neg x 3. BNP 101.5. CRP and ESR neg. CTA neg. Does have hx of pneumonia that required intubation (august) and has dry cough, requesting cough medicine. Add robitussin. No evidence of pericarditis. Stop IV pain medications. Prior heart cath 2000 with normal coronaries. 2. Currently low BP however was just treated for HTN down at stress test and then received dose of morphine when she arrived at the floor. 3. Tobacco abuse - pt denies addiction and states she will quit starting now. 4. HLD - lipid panel tomorrow AM. 5. Anx/Dep/?borderline personality disorder - prozac, klonopin, trazodone, compazine 6. H/o Seizure Disorder - keppra 7. Hx of DVT PE - not on OAC, CTA neg. 8. Hx of AV repair and ASD repair DVT ppx: lovenox DC planning: advance diet and change pain control to PO only. Wait for HTN to improve, antihtn increased but will need to monitor for continued hypotension. <Juan Miguel Diaz - Last Filed: 01/30/17 13:29> - Physical Exam General: Alert, Cooperative HEENT: Atraumatic, PERRLA, EOMI, Normocephalic Neck: Supple, No JVD, Negative Carotid Bruits Lungs: Clear to auscultation, Normal air movement Cardiovascular: Regular rate, Regular Rhythm, Normal S1, Normal S2, No murmurs Abdomen: Bowel Sounds Present, Soft, Non Tender Extremities: No edema, Capillary Refill Less than 3 Seconds Skin: No rashes, No breakdown Psych/Mental Status: Normal Affect, Appropriate Vital Signs Temp Pulse Resp BP Pulse Ox 36.6 C 55 18 113/69 99 01/30/17 13:26 01/30/17 13:26 01/30/17 13:26 01/30/17 13:26 01/30/17 13:26 Oxygen Flow Rate 2 Oxygen Delivery Method Nasal Cannula Weight: 79.1 kg Body Mass Index (BMI) 29.8 Intake and Output for Last 24 Hours 01/28/17 01/29/17 01/30/17 23:59 23:59 23:59 Intake Total 760 Balance 760 Laboratory Tests Past 24 Hrs 01/30/17 01/30/17 01/30/17 01:54 05:40 05:40 ESR < 1 D-Dimer Quant (PE/DVT) Troponin I < 0.02 < 0.02 C-React Prot High Sens 01/30/17 01/30/17 01/30/17 05:40 11:35 11:35 ESR D-Dimer Quant (PE/DVT) 0.27 Troponin I 0.25 H C-React Prot High Sens 0.58 Assessment/Plan She seen and examined independently. Agree with the above note by the physician assistant financial accountant 1. Chest pain: Patient stress test was normal, however fortunately came back at 0.25. Patient's previous workup and been negative as well. Cardiology has been notified and plans for left heart catheterization in the morning. We will check a urine drug screen to rule out any drug-induced vasospasm, such as cocaine or methamphetamines.
[2017-01-30] MEDS: guaiFENesin 10 ML UDC (200MG/10ML) PO ×3 (11:35→23:47)
--- NOTE | 2017-01-30 12:18 | PCM.DC ---
- Discharge Diagnoses Current Active Problems: Current Active and Chronic Problems Chest pain (Acute) Cough (Acute) H/O aortic valve repair (Acute) SOB (shortness of breath) (Acute) asd repair (Acute) You will use the following diet at home:: Cardiac Your food should be the consistency of: Regular Your liquids should be the consistency of: Regular/Thin Discharge Activity: Return to Normal Activity Allergies/Adverse Reactions: Allergies amitriptyline Allergy (Verified 01/29/17 21:26) Other states rhabdomyolosis from it amoxicillin [Amoxicillin] Allergy (Verified 01/29/17 21:26) Rash erythromycin base [Erythromycin Base] Allergy (Verified 01/29/17 21:26) Rash levofloxacin [From Levaquin] Allergy (Verified 01/29/17 21:26) Swelling milnacipran Allergy (Verified 01/29/17 21:26) Other states got rhabdomyolysis from it milnacipran HCl [From Savella] Allergy (Verified 01/29/17 21:26) Other states had rhabdomyolysis acetaminophen [From Tylenol] Adverse Reaction (Mild, Verified 01/29/17 21:26) Vomiting Only when taking in large amounts celecoxib [From Celebrex] Adverse Reaction (Verified 01/29/17 21:26) Other suicidal thoughts diphenhydramine HCl [From Benadryl] Adverse Reaction (Verified 01/29/17 21:26) muscle spasms duloxetine HCl [From Cymbalta] Adverse Reaction (Verified 01/29/17 21:26) Other states causes suicidal thoughts meloxicam Adverse Reaction (Verified 01/29/17 21:26) Swelling of legs/chest pain Medications to take at Discharge Gabapentin [Neurontin] 400 mg PO 4X/DAY 12/23/15 Tizanidine HCl [Zanaflex] 4 mg PO Q8H PRN 12/23/15 Clonazepam [Klonopin] 0.5 mg PO QHS 02/23/16 Fluoxetine [Prozac] 40 mg PO DAILY 03/15/16 MedroxyPROGESTERone [Depo-Provera] 150 mg IM [id number] 03/15/16 Carvedilol [Coreg (Beta Ector)] 6.25 mg PO BID #60 tablet 09/27/16 Famotidine [Pepcid] 20 mg PO BID #60 tablet 09/27/16 Levetiracetam [Keppra] 1,500 mg PO BID #180 tablet 09/27/16 Trazodone HCl [Desyrel] 150 mg PO HS #30 tablet 09/27/16 Albuterol Inhaler [Ventolin Hfa] 1 puff INHALATION Q4H PRN PRN 10/02/16 Naproxen [Naprosyn] 660 mg PO BID 10/02/16 Aspirin [Aspirin, Baby] 81 mg PO DAILY@0800 #1 bottle 01/30/17 Guaifenesin/Codeine [Robitussin AC] 5 ml PO Q6H PRN PRN #100 ml 01/30/17 Losartan Potassium [Cozaar] 25 mg PO DAILY #30 tablet 01/30/17 The following prescriptions were given: Aspirin [Aspirin, Baby] 81 mg PO DAILY@0800 #1 bottle Guaifenesin/Codeine [Robitussin AC] 5 ml PO Q6H PRN PRN #100 ml PRN Reason: Cough Losartan Potassium [Cozaar] 25 mg PO DAILY #30 tablet Primary Care Physician: Bill Dai MD [Primary Care Provider] - Please follow up with your Primary Care Physician in: 1-2 weeks Please Follow Up With: cardiology When: 1-2 weeks
--- NOTE | 2017-01-30 12:20 | PCM.DC.SUM ---
Discharge Date and Diagnosis - Problem List Patient Problems: Active and Suspected Problems Chest pain (Acute) Cough (Acute) H/O aortic valve repair (Acute) SOB (shortness of breath) (Acute) asd repair (Acute) Date of Admission: 01/30/17 Date of Discharge: 01/30/17 - Primary Discharge Diagnosis Active and Suspected Problems Chest pain (Acute) Cough (Acute) H/O aortic valve repair (Acute) SOB (shortness of breath) (Acute) asd repair (Acute) - Secondary Discharge Diagnosis Chronic Problems AI (aortic insufficiency) (Chronic) Anxiety disorder (Chronic) Arthritis (Chronic) Exercise-induced asthma (Chronic) Fibromyalgia (Chronic) Hypertension (Chronic) Leiomyosarcoma (Chronic) Migraine (Chronic) Pulmonary hypertension (Chronic) Seizure disorder (Chronic) Syringomyelia (Chronic) Tricuspid regurgitation (Chronic) age17,mitral valve prolapse,bicuspid aor (Chronic) atrial septic defect- repaired (Chronic) Hospital Course and Treatment Imaging Results: 01/30/17 07:32 Stress Test Echo W/Contrast [ECHO] Routine Jolly - cards Operations: None Procedures: 2-D Echocardiogram, Stress test Summary of Care Provided: Physical exam on day of discharge: See daily progress note Hospital course: The patient is a 36 year old F with a hx of aortic valve and ASD repair, hypertension, MVP, tobacco abuse, and a recent hospitalization requiring intubation with pneumonia, who presented to the emergency room with chest pain and a dry cough that started the night prior. She described it as a 7 out of 10 pain in her left anterior chest and back radiating into her neck described as a squeezing that was somewhat alleviated with morphine. No relief with nitroglycerin. She had nonspecific anterior ST segment changes without any acute ST elevation in her EKG. She is admitted for cardiac workup. Troponin was cycled ?4 and was negative. ESR and CRP were negative. BNP was elevated somewhat at 101.5. Stress echo was done which was negative. Cardiology was consulted and recommended adding Cozaar 25 daily, and a baby aspirin daily. She was given Robitussin-AC for cough. Cardiology did not recommend any further intervention. She was counseled on smoking cessation and agreed to quit smoking starting now as she felt that she was not actually addicted and smoked less than half pack a day. She is on multiple home medications and we recommended continuing these for now. She remained in stable condition and was discharged home, and should follow-up with her coil connector repairer and PCP within 1-2 weeks. [] Discharge Diet: Low fat/ Low Cholesterol, 4000 mg Sodium Diet Discharge Activity: Return to Normal Activity Home Medications: Medications to take at Discharge Gabapentin [Neurontin] 400 mg PO 4X/DAY 12/23/15 Tizanidine HCl [Zanaflex] 4 mg PO Q8H PRN 12/23/15 Clonazepam [Klonopin] 0.5 mg PO QHS 02/23/16 Fluoxetine [Prozac] 40 mg PO DAILY 03/15/16 MedroxyPROGESTERone [Depo-Provera] 150 mg IM .[id number] 03/15/16 Carvedilol [Coreg (Beta Ector)] 6.25 mg PO BID #60 tablet 09/27/16 Famotidine [Pepcid] 20 mg PO BID #60 tablet 09/27/16 Levetiracetam [Keppra] 1,500 mg PO BID #180 tablet 09/27/16 Trazodone HCl [Desyrel] 150 mg PO HS #30 tablet 09/27/16 Albuterol Inhaler [Ventolin Hfa] 1 puff INHALATION Q4H PRN PRN 10/02/16 Naproxen [Naprosyn] 660 mg PO BID 10/02/16 Aspirin [Aspirin, Baby] 81 mg PO DAILY@0800 #1 bottle 01/30/17 Guaifenesin/Codeine [Robitussin AC] 5 ml PO Q6H PRN PRN #100 ml 01/30/17 Losartan Potassium [Cozaar] 25 mg PO DAILY #30 tablet 01/30/17 Following Prescrptions Were Given to Patient: Aspirin [Aspirin, Baby] 81 mg PO DAILY@0800 #1 bottle Guaifenesin/Codeine [Robitussin AC] 5 ml PO Q6H PRN PRN #100 ml PRN Reason: Cough Losartan Potassium [Cozaar] 25 mg PO DAILY #30 tablet Primary Care Physician: Bill Dai MD [Primary Care Provider] - Please follow up with your Primary Care Physician in: 1-2 weeks Please Follow Up With: cardiology When: 1-2 weeks Disposition: Home Minutes spent on discharge:: 40 Patient Condition:: Stable Meaningful Use Info Meaningful Use Diagnoses (Choose all that apply): None applicable
[2017-01-30 12:29] LABS: D-Dimer Quantitative (DVT/PE) 0.27 FEU/ug/m (0.27-0.49)
[2017-01-30] MEDS: Clopidogrel Bisulfate 300 MG Tablet PO (13:35)
[2017-01-30 14:42] LABS: Internal QC Validated? YES +Cl - CLEAR BKGD; Pregnancy, Urine Negative Negative
--- NOTE | 2017-01-30 15:07 | EKG12_ITS ---
Test Reason : CP Blood Pressure : / mmHG Vent. Rate : 057 BPM Atrial Rate : 057 BPM P-R Int : 132 ms QRS Dur : 082 ms QT Int : 458 ms P-R-T Axes : 023 020 067 degrees QTc Int : 445 ms Sinus bradycardia Otherwise normal ECG When compared with ECG of 29-JAN-2017 21:33, MANUAL COMPARISON REQUIRED, DATA IS UNCONFIRMED Confirmed by CIERA ADAMS, MEENA ([id number]), fashion editor OANH AGARWAL ([id number]) on 02/04/2017 1:42:50 PM Referred By: REFUGIO Confirmed By:MEENA VANG MD
--- NOTE | 2017-01-30 15:08 | NURSING ---
Pt called out c/o chest pain, sob. no pain medication available. EKG ordered.
[2017-01-30] MEDS: Albuterol 2.5 MG/3 ML VIAL.NEB. INHALATION (15:43)
--- NOTE | 2017-01-30 16:41 | CASEMGMT ---
Social Work: Met with patient to discuss self pay status. Patient states that she has always had [employer] in the past but that [facility] states that she will be switched to regular medicaid. Patient states she went to see her machine adjuster leader case trim at [facility] yesterday and the machine adjuster leader case trim gave her a from to fill out to become eligible for Medicaid again. Patient verifies that she will take care of this once she is discharged. Patient denies need for assistance with this. MENTAL TELEPATHIST encouraged patient to ask for a social media campaign manager if additional questions arise. JEANNA Naqvi
[2017-01-30] MEDS: Carvedilol 6.25 MG Tablet PO (21:31)
[2017-01-30] MEDS: traZODone 50 MG Tablet 150 MG PO (21:32)
[2017-01-30] MEDS: clonazePAM 0.5 MG Tablet PO (21:33)
[2017-01-31] VITALS (18 sets, daily range): BP systolic 96–126; BP diastolic 58–85; PULSE 56–77; RESP 16–18; TEMP 36.7–37.1; O2SAT 95–98
[2017-01-31 04:43] LABS: Absolute Lymphocyte Count 1.24 X10^3/ul (0.83-4.51); Absolute Neutrophil Count 2.1 X10^3/uL (2.0-7.7); Basophil# 0.01 X10^3/uL; Basophil% 0.2 % (0-1); Eosinophil# 0.16 X10^3/uL; Eosinophils% 3.9 % (0-5); Hematocrit 35.3 % (37-47); Hemoglobin 11.6 g/dl (12.0-15.0); Lymphocyte # 1.24 X10^3/ul (4.0); Lymphocyte % 30.2 % (19-41); Mean Corp Hgb Conc 32.9 g/gl (32-36); Mean Corpuscular Hgb 29.6 pg (27.0-32.0); Mean Corpuscular Volume 90.1 fL (81-99); Mean Platelet Vol. 10.4 fl (6.2-12.0); Monocyte# 0.59 X10^3/uL; Monocyte% 14.4 % (0-10); Neutrophil # 2.11 X10^3/uL (2.7-7.7); Neutrophil % 51.3 % (47-70); Platelet Count 183 K/mm3 (150-450); RBC Distribution Width SD 46.3 fl (35.1-43.9); Red Blood Count 3.92 M/mm3 (4.2-5.4); White Blood Count 4.1 K/mm3 (4.4-11.0)
[2017-01-31 04:46] LABS: POSITIVE COUNT NO; POSITIVE DIFFERENTIAL NO; POSITIVE MORPHOLOGY NO
[2017-01-31 04:49] LABS: International Normalized Ratio 1.1; Prothrombin Time (Protime)PT. 13.6 SECONDS (11.7-14.9)
[2017-01-31 04:50] LABS: Partial Thromboplast Time 27.5 Seconds (24.1-36.2)
[2017-01-31 04:55] LABS: Anion Gap 8 (5-15); BUN 14 mg/dL (7-18); BUN/Creat Ratio 16.7 RATIO (10-20); Calcium,Total 8.1 mg/dL (8.5-10.1); Chloride 109 mmol/L (98-107); Cholesterol 140 mg/dL (200); Creatinine, Serum 0.84 mg/dL (0.55-1.02); EST Glomerular Filtration Rate 81 mL/min (>60); Est Glom Filt Rate - Afr Amer 97 mL/min (>60); Estimated Creatinine Clearance 78.41 ml/min; Glucose 98 mg/dL (70-110); High Density Lipoprotein 42 mg/dL; Sodium Level 140 mmol/L (136-145); Triglycerides 141 mg/dL; Very Low Density Lipoprotein 28 mg/dL (5-40)
[2017-01-31] MEDS: Clopidogrel Bisulfate 75 MG Tablet PO (08:49)
[2017-01-31] MEDS: Carvedilol 6.25 MG Tablet PO ×2 (08:49→22:18)
[2017-01-31] MEDS: guaiFENesin 10 ML UDC (200MG/10ML) PO ×3 (08:49→22:19)
[2017-01-31] MEDS: levETIRAcetam 500 MG Tablet 1500 MG PO ×2 (08:49→22:18)
[2017-01-31] MEDS: Aspirin 81 MG TAB.CHEW PO (08:49)
--- NOTE | 2017-01-31 10:42 | PCM.PROGNOTE ---
<Tony Briceno - Last Filed: 01/31/17 10:42> Patient Problems: Active and Suspected Problems Chest pain (Acute) Cough (Acute) H/O aortic valve repair (Acute) SOB (shortness of breath) (Acute) asd repair (Acute) Subjective: Chest pain/pressure continues today with no relief. Patient reports continued dry cough without sputum production with throat pain. Some relief with Robitussin. She is agreeable to heart catheterization today. No dizziness lightheadedness, racing or palpitation. No abdominal pain, nausea or vomiting. No dysuria, fevers, chills. - Physical Exam General: Alert, Oriented x3, Cooperative HEENT: Atraumatic, PERRLA, EOMI, Normocephalic Neck: Supple, No JVD, Negative Carotid Bruits Lungs: Clear to auscultation, Normal air movement Cardiovascular: Regular rate, No murmurs Abdomen: Bowel Sounds Present, Soft, Non Tender Extremities: No edema, Capillary Refill Less than 3 Seconds Skin: No rashes, No breakdown Musculoskeletal: No Tenderness to Palpation of Joints or Extremities Neurological: Cranial nerves II-XII grossly intact Psych/Mental Status: Normal Affect, Appropriate Vital Signs Temp Pulse Resp BP Pulse Ox 98.2 F 57 18 96/58 96 01/31/17 04:23 01/31/17 06:52 01/31/17 08:45 01/31/17 04:23 01/31/17 07:36 Oxygen Flow Rate 2 Oxygen Delivery Method Nasal Cannula Weight: 79 kg Body Mass Index (BMI) 29.8 Intake and Output for Last 24 Hours 01/29/17 01/30/17 01/31/17 23:59 23:59 23:59 Intake Total 1640 Balance 1640 Laboratory Tests Past 24 Hrs 01/30/17 01/30/17 01/30/17 11:35 11:35 14:20 WBC RBC Hgb Hct MCV MCH MCHC RDW RDW Differential Plt Count MPV Immature Gran % (Auto) Neut % (Auto) Lymph % (Auto) [place] % (Auto) Eos % (Auto) Baso % (Auto) Absolute Neuts (auto) Absolute Lymphs (auto) Total Counted PT INR APTT D-Dimer Quant (PE/DVT) 0.27 Sodium Potassium Chloride Carbon Dioxide Anion Gap BUN Creatinine Estim Creat Clear Calc Est GFR (MDRD) Af Amer Est GFR (MDRD) Non-Af BUN/Creatinine Ratio Glucose Calcium Troponin I 0.25 H Triglycerides Cholesterol LDL Cholesterol VLDL Cholesterol HDL Cholesterol Urine Test Urine Amphetamine Pending U Amphetamines Confirm Pending Urine Cocaine Confirm Pending U Cocaine Metab Screen Pending U Benzoylecgonine GC/MS Pending Urine Ethyl Alcohol Pending 01/30/17 01/31/17 01/31/17 14:20 03:54 03:54 WBC 4.1 L RBC 3.92 L Hgb 11.6 L Hct 35.3 L MCV 90.1 MCH 29.6 MCHC 32.9 RDW 14.0 RDW Differential 46.3 H Plt Count 183 MPV 10.4 Immature Gran % (Auto) 0.000 Neut % (Auto) 51.3 Lymph % (Auto) 30.2 [place] % (Auto) 14.4 H Eos % (Auto) 3.9 Baso % (Auto) 0.2 Absolute Neuts (auto) 2.1 Absolute Lymphs (auto) 1.24 Total Counted Not Reportable PT INR APTT D-Dimer Quant (PE/DVT) Sodium 140 Potassium 4.0 Chloride 109 H Carbon Dioxide 23.0 Anion Gap 8 BUN 14 Creatinine 0.84 Estim Creat Clear Calc 78.41 Est GFR (MDRD) Af Amer 97 Est GFR (MDRD) Non-Af 81 BUN/Creatinine Ratio 16.7 Glucose 98 Calcium 8.1 L Troponin I Triglycerides 141 Cholesterol 140 LDL Cholesterol 70 VLDL Cholesterol 28 HDL Cholesterol 42 Urine Test Negative Urine Amphetamine U Amphetamines Confirm Urine Cocaine Confirm U Cocaine Metab Screen U Benzoylecgonine GC/MS Urine Ethyl Alcohol 01/31/17 03:54 WBC RBC Hgb Hct MCV MCH MCHC RDW RDW Differential Plt Count MPV Immature Gran % (Auto) Neut % (Auto) Lymph % (Auto) [place] % (Auto) Eos % (Auto) Baso % (Auto) Absolute Neuts (auto) Absolute Lymphs (auto) Total Counted PT 13.6 INR 1.1 APTT 27.5 D-Dimer Quant (PE/DVT) Sodium Potassium Chloride Carbon Dioxide Anion Gap BUN Creatinine Estim Creat Clear Calc Est GFR (MDRD) Af Amer Est GFR (MDRD) Non-Af BUN/Creatinine Ratio Glucose Calcium Troponin I Triglycerides Cholesterol LDL Cholesterol VLDL Cholesterol HDL Cholesterol Urine Test Urine Amphetamine U Amphetamines Confirm Urine Cocaine Confirm U Cocaine Metab Screen U Benzoylecgonine GC/MS Urine Ethyl Alcohol Assessment/Plan Active and Suspected Problems Chest pain (Acute) Cough (Acute) H/O aortic valve repair (Acute) SOB (shortness of breath) (Acute) asd repair (Acute) A/P: 1. Chest pain - stress test pending. Fourth troponin was elevated, stress echo was negative. Heart catheterization per Dr. Jolly today. Continue Coreg and Cozaar. Baby aspirin daily. Plavix started. LDL is 70. CRP and ESR are negative, d-dimer is negative. Urine drug screen is pending. test is negative. 2. hypertension-stable 3. Tobacco abuse - pt denies addiction and states she will quit starting now. 4. HLD -LDL at goal. 5. Anx/Dep/?borderline personality disorder - prozac, klonopin, trazodone, compazine 6. H/o Seizure Disorder - keppra 7. Hx of DVT PE - not on OAC, CTA neg. 8. Hx of AV repair and ASD repair DVT ppx: lovenox DC planning: Pending results of heart cath. <Juan Miguel Diaz - Last Filed: 01/31/17 16:40> - Physical Exam General: Alert, Cooperative HEENT: Atraumatic, Normocephalic Neck: Supple, No JVD, Negative Carotid Bruits Lungs: Clear to auscultation, Normal air movement Cardiovascular: Regular rate, Regular Rhythm, Normal S1, Normal S2, No murmurs Abdomen: Bowel Sounds Present, Soft, Non Tender Extremities: No edema, Capillary Refill Less than 3 Seconds Skin: No rashes, No breakdown Musculoskeletal: No Tenderness to Palpation of Joints or Extremities Psych/Mental Status: Normal Affect, Appropriate Vital Signs Temp Pulse Resp BP Pulse Ox 37.1 C 71 16 121/79 95 01/31/17 15:15 01/31/17 15:15 01/31/17 15:15 01/31/17 15:15 01/31/17 15:15 Oxygen Flow Rate 2 Oxygen Delivery Method Room Air Weight: 79 kg Body Mass Index (BMI) 29.8 Intake and Output for Last 24 Hours 01/29/17 01/30/17 01/31/17 23:59 23:59 23:59 Intake Total 1640 480 Balance 1640 480 Laboratory Tests Past 24 Hrs 0901/31/17 01/31/17 03:54 03:54 03:54 WBC 4.1 L RBC 3.92 L Hgb 11.6 L Hct 35.3 L MCV 90.1 MCH 29.6 MCHC 32.9 RDW 14.0 RDW Differential 46.3 H Plt Count 183 MPV 10.4 Immature Gran % (Auto) 0.000 Neut % (Auto) 51.3 Lymph % (Auto) 30.2 [place] % (Auto) 14.4 H Eos % (Auto) 3.9 Baso % (Auto) 0.2 Absolute Neuts (auto) 2.1 Absolute Lymphs (auto) 1.24 Total Counted Not Reportable PT 13.6 INR 1.1 APTT 27.5 Sodium 140 Potassium 4.0 Chloride 109 H Carbon Dioxide 23.0 Anion Gap 8 BUN 14 Creatinine 0.84 Estim Creat Clear Calc 78.41 Est GFR (MDRD) Af Amer 97 Est GFR (MDRD) Non-Af 81 BUN/Creatinine Ratio 16.7 Glucose 98 Calcium 8.1 L Magnesium Triglycerides 141 Cholesterol 140 LDL Cholesterol 70 VLDL Cholesterol 28 HDL Cholesterol 42 01/31/17 03:54 WBC RBC Hgb Hct MCV MCH MCHC RDW RDW Differential Plt Count MPV Immature Gran % (Auto) Neut % (Auto) Lymph % (Auto) [place] % (Auto) Eos % (Auto) Baso % (Auto) Absolute Neuts (auto) Absolute Lymphs (auto) Total Counted PT INR APTT Sodium Potassium Chloride Carbon Dioxide Anion Gap BUN Creatinine Estim Creat Clear Calc Est GFR (MDRD) Af Amer Est GFR (MDRD) Non-Af BUN/Creatinine Ratio Glucose Calcium Magnesium 2.2 Triglycerides Cholesterol LDL Cholesterol VLDL Cholesterol HDL Cholesterol Assessment/Plan Pt seen and examined independently, I agree with the above PA note. LHC normal. Prolonged QTC. monitor overnight. Recheck EKG in AM.
--- NOTE | 2017-01-31 10:57 | CL.D_ITS ---
Patient Name: CONCEPCION CR Study Date: 01/31/2017 Performing: Schuyler Jolly MD Ht: 64.17 inches 163 cm : 1980 Wt: 174.17 lbs 79 kg Age: 36 Gender: female BSA: 1.85 PROCEDURE(S) PERFORMED OL14-QER/COR/LV CLINICAL PROFILE AND INDICATIONS INDICATIONS: Chest-Pain syndrome of unclear etiology , Class II Stress/Imaging Stress Echocardiogram: Yes Result: NegativeStress Echocardiogram: Negative CAD Presentations: Unstable angina. Comorbidities/Risk Factors: Hypertension Prior CHF CONCLUSIONS Normal coronary arteries Global LV systolic dysfunction- Mild Seperate ostia for LCX and LAD requiring JL5 and JL4 catheters. RECOMMENDATIONS Management as per referring [place] Professor d/c plavix d/w Dr Diaz. Pt noted to have prolonged QTc interval over baseline ECG yesterday. Advised Dr Diaz of ECG findi ngs and advised avoidance of fluroquinolones and adjustment of seizure meds/anti depressants to corre ct this. DESCRIPTION OF PROCEDURE The patient arrived to the procedure lab. The risks and benefits of the procedure as well as a full d escription of our services here and current unavailability of surgical backup were fully explained to the patient and/or their significant other prior to the catheterization. The Timeout was completed, verifying the correct patient and procedure. The patient's procedural site was prepped and draped in the usual fashion. Local anesthetic was given subcutaneously to right groin region with Lidocaine 2%. Using a modified Seldinger technique, arterial access was obtained via the right femoral artery, a 4 Fr sheath was inserted. Left Coronary Artery selective angiography was performed in multiple views u sing a 4 Fr. JL5 catheter. Left Coronary Artery selective angiography was performed in multiple views using a 4 Fr. JL4 catheter. Right Coronary Artery selective angiography was then performed in multip le views using a 4 Fr. 3DRC catheter. Left Ventriculography was performed in ADAME projection using a 4 Fr. Pigtail catheter. LV to AO pullback pressures were then recorded.The arterial sheath was pulled and manual compression applied until hemostasis is achieved. CORONARY ANGIOGRAPHY DOMINANCE: Left Dominant LEFT HEART ASSESSMENT Left Ventricular Ejection Fraction: by LV Gram 50-55 % Global Hypokinesis - Mild Depressed Left Ventricular systolic function Elevated Left Ventricular End Diastolic Pressure LEFT MAIN: Angiographically normal LEFT ANTERIOR DECENDING ARTERY: Angiographically normal CIRCUMFLEX ARTERY: Angiographically normal RIGHT CORONARY ARTERY: Angiographically normal VALVE FINDINGS: Normal Aortic Valve function COMPLICATIONS No Complications PROCEDURE MEDICATIONS Oxygen: 2 L/min via nasal cannula SUMMARY OF HEMODYNAMIC DATA Time AIR REST ECG 10:13:53 AO 123/70 (92) SA 10:34:44 LV 120/-8, 16 10:44:10 LV 117/-11, 19 10:44:16 LVp 121/-11, 22 10:44:24 AOp 195/69 (121) 10:44:29 Signed By Schuyler Jolly MD On 01/31/2017 10:56:52 AM Schuyler Jolly MD
--- NOTE | 2017-01-31 11:00 | PN.CARD_ITS ---
Subjectve: No further chest pain. Telemetry negative. Objective: Vital Signs Temp Pulse Resp BP Pulse Ox 98.2 F 57 18 96/58 96 01/31/17 04:23 01/31/17 06:52 01/31/17 08:45 01/31/17 04:23 01/31/17 07:36 Oxygen Flow Rate 2 Oxygen Delivery Method Nasal Cannula Weight: 79 kg Body Mass Index (BMI) 29.8 Intake and Output for Last 24 Hours 01/29/17 01/30/17 01/31/17 23:59 23:59 23:59 Intake Total 1640 Balance 1640 General: Awake, Alert, Oriented x 3 HEENT: PERRL, EOMI, Sclera Non Icteric Neck: Supple, Good ROM, No Lymph Node Enlargement Lungs: Clear to auscultation Cardiovascular: Regular Rhythm, Normal S1, Normal S2, No Murmurs, No Rubs, No Gallops Vascular: No Carotid Bruits, Normal Femoral Pulses, Normal Radial Pulses, Normal Dorsalis Pedal Pulse, Normal Posterior Tibial Pulses Abdomen: Bowel Sounds Present, Soft, Non Tender, No HSM, No Organomegaly Extremities: No Cyanosis, No Clubbing, No edema Neurological: No Focal Motor or Sensory Deficit 01/30/17 11:35: Troponin I 0.25 H 01/30/17 11:35: D-Dimer Quant (PE/DVT) 0.27 01/31/17 03:54: Sodium 140, Potassium 4.0, Chloride 109 H, Carbon Dioxide 23.0, Anion Gap 8, BUN 14, Creatinine 0.84, Est GFR (MDRD) Af Amer 97, Est GFR (MDRD) Non-Af 81, BUN/Creatinine Ratio 16.7, Glucose 98, Calcium 8.1 L, Triglycerides 141, Cholesterol 140, LDL Cholesterol 70, VLDL Cholesterol 28, HDL Cholesterol 42 01/31/17 03:54: WBC 4.1 L, RBC 3.92 L, Hgb 11.6 L, Hct 35.3 L, MCV 90.1, MCH 29.6, MCHC 32.9, RDW 14.0, RDW Differential 46.3 H, Plt Count 183, MPV 10.4, Immature Gran % (Auto) 0.000, Neut % (Auto) 51.3, Lymph % (Auto) 30.2, [place] % ( Auto) 14.4 H, Eos % (Auto) 3.9, Baso % (Auto) 0.2, Absolute Neuts (auto) 2.1, Total Counted Not Reportable 01/31/17 03:54: PT 13.6, INR 1.1, APTT 27.5 Rhythm: EKG: ECHO: Stress Test: Cardiac Cath: Normal coronary arteries, no intervention recommended. PCI: CT Surgery: Holter monitor: EPS: PPM: CXR: Chest CT Scan: Assessment/Plan #1. Atypical chest pain: Patient presents with atypical nonexertional chest pain, no significant dynamic EKG changes although she does have some minor ST segment nonspecific changes in the anterior leads which were not present on her previous EKG. Her troponins are negative ?3, and an ESR and high sensitive CRP are pending. Her CTA was negative for overt pulmonary emboli, although this does not exclude the possibility of smaller pulmonary emboli given the pleuritic nature of her chest pain. Patient underwent wound debridement echocardiogram yesterday which was negative for inducible ischemia however her fourth troponin was mildly elevated 0.25. Given the patient's constellation of symptoms and risk factors, and abnormal troponin a left heart catheterization was recommended. This was performed today which demonstrated normal coronary arteries, separate ostia of the left circumflex and LAD, and nondominant right coronary artery. LV function was mildly depressed at 5 0%, and aortic valve appeared to be intact. At this point I would discontinue her Plavix and continue her Coreg. She does not require any additional testing at this time. Her abnormal troponin may have been a result of her dobutamine echocardiogram, as well as possible pericarditis to explain her symptoms. In addition her EKG demonstrated prolonged QT corrected interval over baseline EKG which may be result of some of her anti-depressant and antiseizure medications. I have advised Dr. Diaz to adjust these medications as indicated or allowable. Also advised him to avoid fluoroquinolones which can also prolong QT corrected interval particularly azithromycin. 2. Pleuritis: The patient has signs and symptoms of possible pleuritis and has a history of pneumonia in the past. Her pericardial sac does not appear to have any pericardial effusion is most likely not pericarditis, and no rubs are detected on physical exam. Patient appears to have a allergy to meloxicam and other NSAIDs, so would not recommend ibuprofen at this time. Recommend prednisone p.o. if her sed rate or hs CRP are elevated. 3. Tobacco cessation: I had a long and thorough discussion with the patient regarding tobacco use, and strongly recommended that she discontinue all tobacco products. 4. Hyperlipidemia: Recommend obtaining a fasting lipid profile. #5. Thank you very much for the opportunity to participate in the cardiac care of your patient. Discussed with Dr. Diaz.
[2017-01-31] MEDS: oxyCODONE 5 MG Tablet PO ×3 (13:25→22:19)
[2017-01-31] MEDS: FLUoxetine 20 MG Capsule 40 MG PO (13:26)
[2017-01-31] MEDS: Famotidine 20 MG Tablet PO ×2 (13:26→22:19)
[2017-01-31] MEDS: Gabapentin 400 MG Capsule PO ×3 (13:26→22:19)
[2017-01-31 14:33] LABS: Magnesium 2.2 mg/dL (1.8-2.4)
[2017-01-31] MEDS: traZODone 50 MG Tablet 150 MG PO (22:18)
[2017-01-31] MEDS: clonazePAM 0.5 MG Tablet PO (22:19)
[2017-02-01] VITALS (14 sets, daily range): BP systolic 108–119; BP diastolic 55–78; PULSE 60–78; RESP 16–20; TEMP 36.4–36.8; O2SAT 92–97
[2017-02-01] MEDS: guaiFENesin 10 ML UDC (200MG/10ML) PO ×2 (04:52→12:23)
[2017-02-01] MEDS: oxyCODONE 5 MG Tablet PO ×5 (04:52→23:46)
--- NOTE | 2017-02-01 05:55 | EKG12_ITS ---
Test Reason : AM EKG Blood Pressure : / mmHG Vent. Rate : 055 BPM Atrial Rate : 055 BPM P-R Int : 128 ms QRS Dur : 082 ms QT Int : 548 ms P-R-T Axes : 009 016 045 degrees QTc Int : 524 ms Sinus bradycardia Prolonged QT Abnormal ECG Confirmed by CIERA ADAMS, MEENA ([id number]), web editor OANH AGARWAL ([id number]) on 02/04/2017 1:36:23 PM Referred By: BECKIE MUNIZ Confirmed By:MEENA VANG MD
[2017-02-01] MEDS: levETIRAcetam 500 MG Tablet 1500 MG PO ×2 (09:08→20:55)
[2017-02-01] MEDS: Aspirin 81 MG TAB.CHEW PO (09:08)
[2017-02-01] MEDS: Carvedilol 6.25 MG Tablet PO (09:09)
[2017-02-01] MEDS: FLUoxetine 20 MG Capsule 40 MG PO (09:09)
[2017-02-01] MEDS: Gabapentin 400 MG Capsule PO ×4 (09:09→20:55)
[2017-02-01] MEDS: Famotidine 20 MG Tablet PO ×2 (09:09→20:55)
--- NOTE | 2017-02-01 09:22 | PN.CARD_ITS ---
Subjectve: Patient seen and evaluated and does not appear to have any chest pain/coronary syndromes or complaints Objective: Vital Signs Temp Pulse Resp BP Pulse Ox 97.5 F 60 18 119/78 95 02/01/17 09:02 02/01/17 09:02 02/01/17 09:02 02/01/17 09:02 02/01/17 09:02 Oxygen Flow Rate 1 Oxygen Delivery Method Room Air Weight: 79.6 kg Body Mass Index (BMI) 29.8 Intake and Output for Last 24 Hours 01/30/17 01/31/17 02/01/17 23:59 23:59 23:59 Intake Total 1640 480 750 Balance 1640 480 750 General: Awake, Alert, Oriented x 3 HEENT: PERRL, EOMI, Sclera Non Icteric Neck: Supple, Good ROM, No Lymph Node Enlargement Lungs: Clear to auscultation Cardiovascular: Regular Rhythm, Normal S1, Normal S2, No Murmurs, No Rubs, No Gallops 01/31/17 03:54: Magnesium 2.2 R Assessment/Plan #1. Atypical chest pain: Patient presented with atypical nonexertional chest pain, no significant dynamic EKG changes although she does have some minor ST segment nonspecific changes in the anterior leads which were not present on her previous EKG. . Given the patient's constellation of symptoms and risk factors , and abnormal troponin a left heart catheterization was recommended. This was performed yesterday which demonstrated normal coronary arteries, separate ostia of the left circumflex and LAD, and nondominant right coronary artery. LV function was mildly depressed at 50%, and aortic valve appeared to be intact. 2. Pleuritis: The patient has signs and symptoms of possible pleuritis and has a history of pneumonia in the past. Her pericardial sac does not appear to have any pericardial effusion is most likely not pericarditis, and no rubs are detected on physical exam. Patient appears to have a allergy to meloxicam and other NSAIDs, so would not recommend ibuprofen at this time. 3. Tobacco cessation: I had a long and thorough discussion with the patient regarding tobacco use, and strongly recommended that she discontinue all tobacco products. 4. Hyperlipidemia: Recommend obtaining a fasting lipid profile. Stable from the cardiac standpoint for discharge and outpatient follow-up with primary physician.
[2017-02-01] MEDS: Albuterol 2.5 MG/3 ML VIAL.NEB. INHALATION (11:27)
--- NOTE | 2017-02-01 14:48 | PCM.PROGNOTE ---
<Tony Briceno - Last Filed: 02/01/17 14:48> Patient Problems: Active and Suspected Problems Chest pain (Acute) Cough (Acute) H/O aortic valve repair (Acute) SOB (shortness of breath) (Acute) asd repair (Acute) Subjective: Dry cough continues intermittently with sore throat and decreased voice. Chest pain continues. No heart racing or palp. No dizziness or LH. No fever or chills. No SOB. - Physical Exam General: Alert, Oriented x3, Cooperative HEENT: Atraumatic, PERRLA, EOMI, Normocephalic Neck: Supple, No JVD, Negative Carotid Bruits Lungs: Clear to auscultation, Normal air movement Cardiovascular: Regular rate, No murmurs Abdomen: Bowel Sounds Present, Soft, Non Tender Extremities: No edema, Capillary Refill Less than 3 Seconds Skin: No rashes, No breakdown Musculoskeletal: No Tenderness to Palpation of Joints or Extremities Neurological: Cranial nerves II-XII grossly intact Psych/Mental Status: Normal Affect, Appropriate Vital Signs Temp Pulse Resp BP Pulse Ox 98.3 F 65 19 112/71 95 02/01/17 13:56 02/01/17 13:56 02/01/17 13:56 02/01/17 13:56 02/01/17 13:56 Oxygen Flow Rate 1 Oxygen Delivery Method Room Air Weight: 79.6 kg Body Mass Index (BMI) 29.8 Intake and Output for Last 24 Hours 01/30/17 01/31/17 02/01/17 23:59 23:59 23:59 Intake Total 1324 487 4510 Balance 2232 430 3620 Assessment/Plan Active and Suspected Problems Chest pain (Acute) Cough (Acute) H/O aortic valve repair (Acute) SOB (shortness of breath) (Acute) asd repair (Acute) A/P: 1. Chest pain - stress test pending. Fourth troponin was elevated, stress echo was negative. Heart catheterization per Dr. Jolly yesterday. Coreg and Cozaar. Baby aspirin daily. Plavix started. LDL is 70. CRP and ESR are negative, d-dimer is negative. Urine drug screen is pending. test is negative. Pt kept in hospital due to new QT prolongation which was worse this AM on EKG. Cardiology recomends stop beta andrews and prozac and recheck in AM. 2. hypertension-stable 3. Tobacco abuse - pt denies addiction and states she will quit starting now. 4. HLD -LDL at goal. 5. Anx/Dep/?borderline personality disorder - prozac, klonopin, trazodone - prozac stopped. Will need to see her psychiatrist at [facility] for medication changes. 6. H/o Seizure Disorder - keppra 7. Hx of DVT PE - not on OAC, CTA neg. 8. Hx of AV repair and ASD repair 9. Cough - continue supportive care. Suspect viral laryngitis. Afebrile with no leukocytosis. DVT ppx: lovenox [place] planning: Cath neg. Follow EKG for QT interval prolongation. <Juan Miguel Diaz - Last Filed: 02/01/17 15:41> Subjective: no BM since Friday. - Physical Exam General: Alert, - - appears much more comfortable HEENT: Atraumatic, Normocephalic Neck: Supple, No JVD, Negative Carotid Bruits Lungs: Clear to auscultation, Normal air movement Cardiovascular: Regular rate, Regular Rhythm, Normal S1, Normal S2, No murmurs Abdomen: Bowel Sounds Present, Soft, Non Tender Extremities: No edema, Capillary Refill Less than 3 Seconds Skin: No rashes, No breakdown Musculoskeletal: No Tenderness to Palpation of Joints or Extremities Psych/Mental Status: Normal Affect, Appropriate Vital Signs Temp Pulse Resp BP Pulse Ox 36.8 C 65 19 112/71 95 02/01/17 13:56 02/01/17 13:56 02/01/17 13:56 02/01/17 13:56 02/01/17 13:56 Oxygen Flow Rate 1 Oxygen Delivery Method Room Air Weight: 79.6 kg Intake and Output for Last 24 Hours 01/30/17 01/31/17 02/01/17 23:59 23:59 23:59 Intake Total 175 473 1408 Balance 487 997 6547 Assessment/Plan Patient seen and examined and family. Agree with the above note by the physician assistant director of security. 1. Chest pain: Patient workup was unremarkable except for mildly elevated troponin. Left heart catheterization was unremarkable. No additional cardiac workup is necessary. 2. Prolonged QTC: Unclear why it suddenly has gone up since been here. Electrolytes have been okay. Patient's Prozac has been held though she did get her dose this morning. We will follow-up EKG in the morning. Patient still requires hospitalization to ensure improvement of her QTc interval.
--- NOTE | 2017-02-01 14:53 | PN_ITS ---
<Tony Briceno - Last Filed: 02/01/17 14:48> Patient Problems: Active and Suspected Problems Chest pain (Acute) Cough (Acute) H/O aortic valve repair (Acute) SOB (shortness of breath) (Acute) asd repair (Acute) Subjective: Dry cough continues intermittently with sore throat and decreased voice. Chest pain continues. No heart racing or palp. No dizziness or LH. No fever or chills. No SOB. - Physical Exam General: Alert, Oriented x3, Cooperative HEENT: Atraumatic, PERRLA, EOMI, Normocephalic Neck: Supple, No JVD, Negative Carotid Bruits Lungs: Clear to auscultation, Normal air movement Cardiovascular: Regular rate, No murmurs Abdomen: Bowel Sounds Present, Soft, Non Tender Extremities: No edema, Capillary Refill Less than 3 Seconds Skin: No rashes, No breakdown Musculoskeletal: No Tenderness to Palpation of Joints or Extremities Neurological: Cranial nerves II-XII grossly intact Psych/Mental Status: Normal Affect, Appropriate Vital Signs Temp Pulse Resp BP Pulse Ox 98.3 F 65 19 112/71 95 02/01/17 13:56 02/01/17 13:56 02/01/17 13:56 02/01/17 13:56 02/01/17 13:56 Oxygen Flow Rate 1 Oxygen Delivery Method Room Air Weight: 79.6 kg Body Mass Index (BMI) 29.8 Intake and Output for Last 24 Hours 01/30/17 01/31/17 02/01/17 23:59 23:59 23:59 Intake Total 5792 371 1089 Balance 4459 971 6385 Assessment/Plan Active and Suspected Problems Chest pain (Acute) Cough (Acute) H/O aortic valve repair (Acute) SOB (shortness of breath) (Acute) asd repair (Acute) A/P: 1. Chest pain - stress test pending. Fourth troponin was elevated, stress echo was negative. Heart catheterization per Dr. Jolly yesterday. Coreg and Cozaar. Baby aspirin daily. Plavix started. LDL is 70. CRP and ESR are negative, d-dimer is negative. Urine drug screen is pending. test is negative. Pt kept in hospital due to new QT prolongation which was worse this AM on EKG. Cardiology recomends stop beta andrews and prozac and recheck in AM. 2. hypertension-stable 3. Tobacco abuse - pt denies addiction and states she will quit starting now. 4. HLD -LDL at goal. 5. Anx/Dep/?borderline personality disorder - prozac, klonopin, trazodone - prozac stopped. Will need to see her psychiatrist at [place] for medication changes. 6. H/o Seizure Disorder - keppra 7. Hx of DVT PE - not on OAC, CTA neg. 8. Hx of AV repair and ASD repair 9. Cough - continue supportive care. Suspect viral laryngitis. Afebrile with no leukocytosis. DVT ppx: lovenox [place] planning: Cath neg. Follow EKG for QT interval prolongation. <Juan Miguel Diaz - Last Filed: 02/01/17 15:41> Subjective: no BM since Friday. - Physical Exam General: Alert, - - appears much more comfortable HEENT: Atraumatic, Normocephalic Neck: Supple, No JVD, Negative Carotid Bruits Lungs: Clear to auscultation, Normal air movement Cardiovascular: Regular rate, Regular Rhythm, Normal S1, Normal S2, No murmurs Abdomen: Bowel Sounds Present, Soft, Non Tender Extremities: No edema, Capillary Refill Less than 3 Seconds Skin: No rashes, No breakdown Musculoskeletal: No Tenderness to Palpation of Joints or Extremities Psych/Mental Status: Normal Affect, Appropriate Vital Signs Temp Pulse Resp BP Pulse Ox 36.8 C 65 19 112/71 95 02/01/17 13:56 02/01/17 13:56 02/01/17 13:56 02/01/17 13:56 02/01/17 13:56 Oxygen Flow Rate 1 Oxygen Delivery Method Room Air Weight: 79.6 kg Intake and Output for Last 24 Hours 01/30/17 01/31/17 02/01/17 23:59 23:59 23:59 Intake Total 317 710 5747 Balance 453 040 0223 Assessment/Plan Patient seen and examined and family. Agree with the above note by the physician assistant case manager. 1. Chest pain: Patient workup was unremarkable except for mildly elevated troponin. Left heart catheterization was unremarkable. No additional cardiac workup is necessary. 2. Prolonged QTC: Unclear why it suddenly has gone up since been here. Electrolytes have been okay. Patient's Prozac has been held though she did get her dose this morning. We will follow-up EKG in the morning. Patient still requires hospitalization to ensure improvement of her QTc interval.
--- NOTE | 2017-02-01 15:44 | EKG12_ITS ---
Test Reason : CP Blood Pressure : / mmHG Vent. Rate : 060 BPM Atrial Rate : 060 BPM P-R Int : 154 ms QRS Dur : 084 ms QT Int : 504 ms P-R-T Axes : 028 036 064 degrees QTc Int : 504 ms Normal sinus rhythm Prolonged QT Abnormal ECG No previous ECGs available Confirmed by CIERA ADAMS, MEENA ([id number]), order editor OANH AGARWAL ([id number] on 02/04/2017 1:38:17 PM Referred By: CRISTY Confirmed By:MEENA VANG MD
[2017-02-01] MEDS: Bisacodyl 5 MG Tablet 10 MG PO (16:08)
[2017-02-01] MEDS: tiZANidine HCl 2 MG Tablet 4 MG PO (19:56)
[2017-02-01] MEDS: traZODone 50 MG Tablet 150 MG PO (20:55)
[2017-02-01] MEDS: clonazePAM 0.5 MG Tablet PO (20:56)
--- NOTE | 2017-02-01 20:59 | EKG12_ITS ---
Test Reason : Blood Pressure : / mmHG Vent. Rate : 057 BPM Atrial Rate : 057 BPM P-R Int : 138 ms QRS Dur : 084 ms QT Int : 572 ms P-R-T Axes : 024 018 052 degrees QTc Int : 556 ms Sinus bradycardia Prolonged QT Abnormal ECG When compared with ECG of 31-JAN-2017 05:15, MANUAL COMPARISON REQUIRED, DATA IS UNCONFIRMED Confirmed by CIERA ADAMS, MEENA ([id number]), news videotape editor OANH AGARWAL ([id number]) on 02/04/2017 1:39:02 PM Referred By: Confirmed By:MEENA VANG MD
[2017-02-02] VITALS (9 sets, daily range): BP systolic 110–121; BP diastolic 64–84; PULSE 58–72; RESP 16–18; TEMP 36.4–37.1; O2SAT 95–98
[2017-02-02] MEDS: oxyCODONE 5 MG Tablet PO ×4 (04:04→17:01)
[2017-02-02] MEDS: guaiFENesin 10 ML UDC (200MG/10ML) PO ×2 (04:07→10:18)
--- NOTE | 2017-02-02 05:55 | EKG12_ITS ---
Test Reason : CP Blood Pressure : / mmHG Vent. Rate : 060 BPM Atrial Rate : 060 BPM P-R Int : 136 ms QRS Dur : 084 ms QT Int : 524 ms P-R-T Axes : 027 007 043 degrees QTc Int : 524 ms Normal sinus rhythm Prolonged QT Abnormal ECG When compared with ECG of 01-FEB-2017 05:47, MANUAL COMPARISON REQUIRED, DATA IS UNCONFIRMED Confirmed by CIERA ADAMS, MEENA ([id number]), offline editor OANH AGARWAL ([id number]) on 02/04/2017 1:37:53 PM Referred By: CRISTY Confirmed By:MEENA VANG MD
[2017-02-02] MEDS: tiZANidine HCl 2 MG Tablet 4 MG PO (08:31)
[2017-02-02] MEDS: Aspirin 81 MG TAB.CHEW PO (08:31)
[2017-02-02] MEDS: Gabapentin 400 MG Capsule PO ×2 (08:32→11:59)
[2017-02-02 09:46] LABS: Hematocrit 36.7 % (37-47); Hemoglobin 12.3 g/dl (12.0-15.0)
--- NOTE | 2017-02-02 09:46 | PN.CARD_ITS ---
Subjectve: Patient was seen and evaluated and appears to be doing well from the cardiovascular standpoint Objective: Vital Signs Temp Pulse Resp BP Pulse Ox 97.6 F 65 18 112/71 95 02/02/17 08:29 02/02/17 08:29 02/02/17 08:29 02/02/17 08:29 02/02/17 08:29 Oxygen Flow Rate 2 Oxygen Delivery Method Room Air Weight: 79 kg Intake and Output for Last 24 Hours 01/31/17 02/01/17 02/02/17 23:59 23:59 23:59 Intake Total 480 2395 Balance 480 2395 General: Awake, Lethargic HEENT: Atraumatic Neck: Supple Lungs: Clear to auscultation Cardiovascular: Regular Rhythm Vascular: No Carotid Bruits Abdomen: Bowel Sounds Present Extremities: No edema Neurological: No Focal Motor or Sensory Deficit Psych/Mental Status: Flat Affect Rhythm: EKG: Normal sinus rhythm with QT prolongation Assessment/Plan #1. Atypical chest pain: Patient presented with atypical nonexertional chest pain, no significant dynamic EKG changes although she does have some minor ST segment nonspecific changes in the anterior leads which were not present on her previous EKG. . Given the patient's constellation of symptoms and risk factors , and abnormal troponin a left heart catheterization was recommended. This was performed which demonstrated normal coronary arteries, separate ostia of the left circumflex and LAD, and nondominant right coronary artery. LV function was mildly depressed at 50%, and aortic valve appeared to be intact. 2. Tobacco cessation: I had a long and thorough discussion with the patient regarding tobacco use, and strongly recommended that she discontinue all tobacco products. 3. Hyperlipidemia: Recommend obtaining a fasting lipid profile. 4. QT prolongation Patient was noted to have QT prolongation on her follow-up EKGs in the hospital. In comparison to the EKG from yesterday her QTC appears to be shorter though she still has some U waves. Her beta-andrews and Prozac were discontinued Serum calcium was noted to be 8.1 on 01/31. Would recommend replacing with 1 g of calcium gluconate and repeating EKG at noon. If QT interval is improved then would recommend discharge.
[2017-02-02] MEDS: Famotidine 20 MG Tablet PO (10:18)
[2017-02-02] MEDS: levETIRAcetam 500 MG Tablet 1500 MG PO (10:18)
--- NOTE | 2017-02-02 10:35 | PCM.PROGNOTE ---
<Tony Briceno - Last Filed: 02/02/17 10:35> Patient Problems: Active and Suspected Problems Chest pain (Acute) Cough (Acute) H/O aortic valve repair (Acute) SOB (shortness of breath) (Acute) asd repair (Acute) Subjective: Pt reports improvement in CP and her cough. However she is very concerned as she has new symptoms today. This morning she had a loose BM with dark blood in it. She reports after the BM she became dizzy, lightheaded, mildly dyspneic and had heart palpitations. She also now has cramping abdominal pain. She is sure that she is not experiencing menstruation. - Physical Exam General: Alert, Oriented x3, Cooperative HEENT: Atraumatic, PERRLA, EOMI, Normocephalic Neck: Supple, No JVD, Negative Carotid Bruits Lungs: Clear to auscultation, Normal air movement Cardiovascular: Regular rate, No murmurs Abdomen: Bowel Sounds Present, Soft, Non Tender Extremities: No edema, Capillary Refill Less than 3 Seconds Skin: No rashes, No breakdown Musculoskeletal: No Tenderness to Palpation of Joints or Extremities Neurological: Cranial nerves II-XII grossly intact Psych/Mental Status: Normal Affect, Appropriate, Alert and oriented to time, place, person, mood and affect Vital Signs Temp Pulse Resp BP Pulse Ox 97.6 F 65 18 112/71 95 02/02/17 08:29 02/02/17 08:29 02/02/17 08:29 02/02/17 08:29 02/02/17 08:29 Oxygen Flow Rate 2 Oxygen Delivery Method Room Air Weight: 79 kg Intake and Output for Last 24 Hours 01/31/17 02/01/17 02/02/17 23:59 23:59 23:59 Intake Total 480 2395 Balance 480 2395 Laboratory Tests Past 24 Hrs 02/02/17 09:37 Hgb 12.3 Hct 36.7 L Assessment/Plan Active and Suspected Problems Chest pain (Acute) Cough (Acute) H/O aortic valve repair (Acute) SOB (shortness of breath) (Acute) asd repair (Acute) A/P: 1. Chest pain - stress test negative Fourth troponin was elevated, stress echo was negative. Heart catheterization negative. Continue cozar. Baby aspirin daily. Plavix started. LDL is 70. CRP and ESR are negative, d-dimer is negative. Urine drug screen is pending. test is negative. Pt kept in hospital due to new QT prolongation which was worse this AM on EKG. Despite stoppage of beta andrews and prozac no improvement in QT interval. 2. GI bleed - not observed. Reported dark red blood in loose still this AM with cramping abdominal pain. Last colonoscopy 4 years ago was normal. Pt feels confident it is not related to menstruation. test neg. Check stool occult blood. Check H/H now. Check C diff. 2. hypertension-stable 3. Tobacco abuse - pt denies addiction and states she will quit starting now. 4. HLD -LDL at goal. 5. Anx/Dep/?borderline personality disorder - prozac, klonopin, trazodone - prozac stopped. Will need to see her psychiatrist at [place] for medication changes. 6. H/o Seizure Disorder - adi 7. Hx of DVT PE - not on OAC, CTA neg. 8. Hx of AV repair and ASD repair 9. Cough - continue supportive care. Suspect viral laryngitis. Afebrile with no leukocytosis. DVT ppx: lovenox [place] planning: Cath neg. Follow EKG for QT interval prolongation. If pt is actually experiencing GI bleed she will need a colonoscopy. <Juan Miguel Diaz - Last Filed: 02/02/17 14:27> Subjective: [place] yesterday. Patient states that this is similar to when she has had colitis in the past. 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 She is unable to tell me what type of colitis she has had. - Physical Exam General: Alert HEENT: Atraumatic, Normocephalic Lungs: Clear to auscultation, Normal air movement, No rhonchi, No wheeze Cardiovascular: Regular rate, Regular Rhythm, Normal S1, Normal S2 Abdomen: Bowel Sounds Present, Soft, Non Tender, Non-Distended Extremities: No edema Psych/Mental Status: Normal Affect, Appropriate Vital Signs Temp Pulse Resp BP Pulse Ox 36.9 C 59 17 121/84 97 02/02/17 14:17 02/02/17 14:17 02/02/17 14:17 02/02/17 14:17 02/02/17 14:17 Oxygen Flow Rate 2 Oxygen Delivery Method Room Air Weight: 79 kg Intake and Output for Last 24 Hours 01/31/17 02/01/17 02/02/17 23:59 23:59 23:59 Intake Total 480 6665 109 Balance 480 2884 225 Laboratory Tests Past 24 Hrs 02/02/17 02/02/17 02/02/17 09:37 12:55 12:55 WBC 6.7 RBC 4.07 L Hgb 12.3 12.1 Hct 36.7 L 36.7 L MCV 90.2 MCH 29.7 MCHC 33.0 RDW 13.7 RDW Differential 44.2 H Plt Count 185 MPV 10.3 Immature Gran % (Auto) 0.200 Neut % (Auto) 56.1 Lymph % (Auto) 29.5 [place] % (Auto) 9.6 Eos % (Auto) 3.8 Baso % (Auto) 0.8 Absolute Neuts (auto) 3.7 Absolute Lymphs (auto) 1.96 Total Counted Not Reportable Sodium 142 Potassium 4.4 Chloride 109 H Carbon Dioxide 25.0 Anion Gap 8 BUN 9 Creatinine 0.74 Estim Creat Clear Calc 89.01 Est GFR (MDRD) Af Amer 112 Est GFR (MDRD) Non-Af 93 BUN/Creatinine Ratio 12.1 Glucose 98 Calcium 9.1 Total Bilirubin 0.20 AST 16 ALT 22 Alkaline Phosphatase 78 Total Protein 6.5 Albumin 3.3 L Globulin 3.2 Albumin/Globulin Ratio 1.0 Assessment/Plan Patient seen and examined independently. Agree with the above note as written by the physician assistant store manager sales. 1. Hematochezia: Self-reported. Waiting on stool for occult blood. Patient's hemoglobin has been stable. If patient has recurrent hematochezia she may need to be transferred to a tertiary facility for further stabilization and management though to include potentially urgent EGD, bleeding scan. 2. Diarrhea: Stool sent for C. difficile. We will follow that up if no C. difficile and patient still having diarrhea and then could initiate Imodium. 3. Chest pain: Workup has been unremarkable. No additional workup necessary. 4. Prolonged QTC: Improved today. Repeat EKG pending. Disposition is pending resolution of her prolonged QTC as well as ensuring patient not have any further medication or melena.
--- NOTE | 2017-02-02 10:40 | PN_ITS ---
<Tony Briceno - Last Filed: 02/02/17 10:35> Patient Problems: Active and Suspected Problems Chest pain (Acute) Cough (Acute) H/O aortic valve repair (Acute) SOB (shortness of breath) (Acute) asd repair (Acute) Subjective: Pt reports improvement in CP and her cough. However she is very concerned as she has new symptoms today. This morning she had a loose BM with dark blood in it. She reports after the BM she became dizzy, lightheaded, mildly dyspneic and had heart palpitations. She also now has cramping abdominal pain. She is sure that she is not experiencing menstruation. - Physical Exam General: Alert, Oriented x3, Cooperative HEENT: Atraumatic, PERRLA, EOMI, Normocephalic Neck: Supple, No JVD, Negative Carotid Bruits Lungs: Clear to auscultation, Normal air movement Cardiovascular: Regular rate, No murmurs Abdomen: Bowel Sounds Present, Soft, Non Tender Extremities: No edema, Capillary Refill Less than 3 Seconds Skin: No rashes, No breakdown Musculoskeletal: No Tenderness to Palpation of Joints or Extremities Neurological: Cranial nerves II-XII grossly intact Psych/Mental Status: Normal Affect, Appropriate, Alert and oriented to time, place, person, mood and affect Vital Signs Temp Pulse Resp BP Pulse Ox 97.6 F 65 18 112/71 95 02/02/17 08:29 02/02/17 08:29 02/02/17 08:29 02/02/17 08:29 02/02/17 08:29 Oxygen Flow Rate 2 Oxygen Delivery Method Room Air Weight: 79 kg Intake and Output for Last 24 Hours 01/31/17 02/01/17 02/02/17 23:59 23:59 23:59 Intake Total 480 2395 Balance 480 2395 Laboratory Tests Past 24 Hrs 02/02/17 09:37 Hgb 12.3 Hct 36.7 L Assessment/Plan Active and Suspected Problems Chest pain (Acute) Cough (Acute) H/O aortic valve repair (Acute) SOB (shortness of breath) (Acute) asd repair (Acute) A/P: 1. Chest pain - stress test negative Fourth troponin was elevated, stress echo was negative. Heart catheterization negative. Continue cozar. Baby aspirin daily. Plavix started. LDL is 70. CRP and ESR are negative, d-dimer is negative. Urine drug screen is pending. test is negative. Pt kept in hospital due to new QT prolongation which was worse this AM on EKG. Despite stoppage of beta andrews and prozac no improvement in QT interval. 2. GI bleed - not observed. Reported dark red blood in loose still this AM with cramping abdominal pain. Last colonoscopy 4 years ago was normal. Pt feels confident it is not related to menstruation. test neg. Check stool occult blood. Check H/H now. Check C diff. 2. hypertension-stable 3. Tobacco abuse - pt denies addiction and states she will quit starting now. 4. HLD -LDL at goal. 5. Anx/Dep/?borderline personality disorder - prozac, klonopin, trazodone - prozac stopped. Will need to see her psychiatrist at [place] for medication changes. 6. H/o Seizure Disorder - adi 7. Hx of DVT PE - not on OAC, CTA neg. 8. Hx of AV repair and ASD repair 9. Cough - continue supportive care. Suspect viral laryngitis. Afebrile with no leukocytosis. DVT ppx: lovenox [place] planning: Cath neg. Follow EKG for QT interval prolongation. If pt is actually experiencing GI bleed she will need a colonoscopy. <Juan Miguel Diaz - Last Filed: 02/02/17 14:27> Subjective: [place] yesterday. Patient states that this is similar to when she has had colitis in the past. 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 She is unable to tell me what type of colitis she has had. - Physical Exam General: Alert HEENT: Atraumatic, Normocephalic Lungs: Clear to auscultation, Normal air movement, No rhonchi, No wheeze Cardiovascular: Regular rate, Regular Rhythm, Normal S1, Normal S2 Abdomen: Bowel Sounds Present, Soft, Non Tender, Non-Distended Extremities: No edema Psych/Mental Status: Normal Affect, Appropriate Vital Signs Temp Pulse Resp BP Pulse Ox 36.9 C 59 17 121/84 97 02/02/17 14:17 02/02/17 14:17 02/02/17 14:17 02/02/17 14:17 02/02/17 14:17 Oxygen Flow Rate 2 Oxygen Delivery Method Room Air Weight: 79 kg Intake and Output for Last 24 Hours 01/31/17 02/01/17 02/02/17 23:59 23:59 23:59 Intake Total 480 0080 485 Balance 480 6529 204 Laboratory Tests Past 24 Hrs 02/02/17 02/02/17 02/02/17 09:37 12:55 12:55 WBC 6.7 RBC 4.07 L Hgb 12.3 12.1 Hct 36.7 L 36.7 L MCV 90.2 MCH 29.7 MCHC 33.0 RDW 13.7 RDW Differential 44.2 H Plt Count 185 MPV 10.3 Immature Gran % (Auto) 0.200 Neut % (Auto) 56.1 Lymph % (Auto) 29.5 [place] % (Auto) 9.6 Eos % (Auto) 3.8 Baso % (Auto) 0.8 Absolute Neuts (auto) 3.7 Absolute Lymphs (auto) 1.96 Total Counted Not Reportable Sodium 142 Potassium 4.4 Chloride 109 H Carbon Dioxide 25.0 Anion Gap 8 BUN 9 Creatinine 0.74 Estim Creat Clear Calc 89.01 Est GFR (MDRD) Af Amer 112 Est GFR (MDRD) Non-Af 93 BUN/Creatinine Ratio 12.1 Glucose 98 Calcium 9.1 Total Bilirubin 0.20 AST 16 ALT 22 Alkaline Phosphatase 78 Total Protein 6.5 Albumin 3.3 L Globulin 3.2 Albumin/Globulin Ratio 1.0 Assessment/Plan Patient seen and examined independently. Agree with the above note as written by the physician executive assistant. 1. Hematochezia: Self-reported. Waiting on stool for occult blood. Patient's hemoglobin has been stable. If patient has recurrent hematochezia she may need to be transferred to a tertiary facility for further stabilization and management though to include potentially urgent EGD, bleeding scan. 2. Diarrhea: Stool sent for C. difficile. We will follow that up if no C. difficile and patient still having diarrhea and then could initiate Imodium. 3. Chest pain: Workup has been unremarkable. No additional workup necessary. 4. Prolonged QTC: Improved today. Repeat EKG pending. Disposition is pending resolution of her prolonged QTC as well as ensuring patient not have any further medication or melena.
--- NOTE | 2017-02-02 12:36 | CT_ITS ---
STUDY: CT ABDOMEN AND PELVIS WITH CONTRAST REASON FOR EXAM: Female, 36 years old. Abdominal pain RADIATION DOSAGE (If Supplied By Facility): CTDIvol = ( 16.73 ) mGy, DLP = ( 1136.06 ) mGycm TECHNIQUE: Transaxial images were obtained from the dome of the diaphragm to the symphysis pubis with oral contrast. 100 ml of Isovue 300 contrast was administered. Sagittal and coronal images were reconstructed. Individualized dose optimization techniques were used for this CT. COMPARISON: January 15, 2017 FINDINGS: There is minimal atelectasis in both lung bases. There is no pleural effusion. The visualized portions of the heart are within normal limits. Normal liver. Normal gallbladder and extrahepatic biliary system. Normal spleen. Normal pancreas. Normal bilateral adrenal glands. Normal right kidney. Normal left kidney. Normal visualized stomach. Normal small intestine. Normal colon. The appendix is visualized and appears normal. Normal abdominal aorta. Normal inferior vena cava. Normal retroperitoneum. Normal urinary bladder. The uterus is normal in appearance. There are no abnormal masses in the adnexal regions. Normal abdominal wall. There are old rib fractures on the right side. There are mild degenerative changes in the visualized spine. CT/Abdomen/Pelvis WITH Contrast IMPRESSION: No acute abnormalities are seen in the abdomen or pelvis. There are no acute bowel abnormalities. There is no ascites, inflammation or significant lymphadenopathy. Electronically Signed: Corinne Iglesias MD at 15:35 EDT Tel [phone], Service support ,
--- NOTE | 2017-02-02 13:00 | EKG12_ITS ---
Test Reason : MEDICATION Blood Pressure : / mmHG Vent. Rate : 058 BPM Atrial Rate : 058 BPM P-R Int : 150 ms QRS Dur : 084 ms QT Int : 510 ms P-R-T Axes : 040 025 056 degrees QTc Int : 500 ms Sinus bradycardia Prolonged QT Abnormal ECG When compared with ECG of 02-FEB-2017 04:46, MANUAL COMPARISON REQUIRED, DATA IS UNCONFIRMED Confirmed by CIERA ADAMS, MEENA ([id number]), development editor OANH AGARWAL ([id number]) on 02/07/2017 1:55:17 PM Referred By: DR VANG Confirmed By:MEENA VANG MD
[2017-02-02 13:06] LABS: Absolute Lymphocyte Count 1.96 X10^3/ul (0.83-4.51); Absolute Neutrophil Count 3.7 X10^3/uL (2.0-7.7); Basophil# 0.05 X10^3/uL; Basophil% 0.8 % (0-1); Eosinophil# 0.25 X10^3/uL; Eosinophils% 3.8 % (0-5); Hematocrit 36.7 % (37-47); Hemoglobin 12.1 g/dl (12.0-15.0); Lymphocyte # 1.96 X10^3/ul (4.0); Lymphocyte % 29.5 % (19-41); Mean Corpuscular Hgb 29.7 pg (27.0-32.0); Mean Corpuscular Volume 90.2 fL (81-99); Mean Platelet Vol. 10.3 fl (6.2-12.0); Monocyte# 0.64 X10^3/uL; Monocyte% 9.6 % (0-10); Neutrophil # 3.74 X10^3/uL (2.7-7.7); Neutrophil % 56.1 % (47-70); Platelet Count 185 K/mm3 (150-450); RBC Distribution Width CV 13.7 % (11.6-14.6); RBC Distribution Width SD 44.2 fl (35.1-43.9); Red Blood Count 4.07 M/mm3 (4.2-5.4); White Blood Count 6.7 K/mm3 (4.4-11.0)
[2017-02-02 13:08] LABS: POSITIVE COUNT NO; POSITIVE DIFFERENTIAL NO; POSITIVE MORPHOLOGY NO
[2017-02-02 13:32] LABS: AST(SGOT) 16 U/L (15-37); Alanine Aminotransfer ALT/SGPT 22 U/L (12-78); Albumin, Serum 3.3 g/dL (3.4-5.0); Alkaline Phosphatase 78 U/L (45-117); Anion Gap 8 (5-15); BUN 9 mg/dL (7-18); BUN/Creat Ratio 12.1 RATIO (10-20); Calcium,Total 9.1 mg/dL (8.5-10.1); Chloride 109 mmol/L (98-107); Creatinine, Serum 0.74 mg/dL (0.55-1.02); EST Glomerular Filtration Rate 93 mL/min (>60); Est Glom Filt Rate - Afr Amer 112 mL/min (>60); Estimated Creatinine Clearance 89.01 ml/min; Globulin 3.2 g/dL (2.3-3.5); Glucose 98 mg/dL (70-110); Potassium 4.4 mmol/L (3.5-5.1); Protein, Total 6.5 g/dL (6.4-8.2); Sodium Level 142 mmol/L (136-145)
[2017-02-02] MEDS: Albuterol 2.5 MG/3 ML VIAL.NEB. INHALATION (14:52)
--- NOTE | 2017-02-02 16:25 | PCM.DC ---
- Discharge Diagnoses Current Active Problems: Current Active and Chronic Problems Chest pain (Acute) Cough (Acute) H/O aortic valve repair (Acute) SOB (shortness of breath) (Acute) asd repair (Acute) You will use the following diet at home:: Cardiac Your food should be the consistency of: Regular Your liquids should be the consistency of: Regular/Thin Discharge Activity: Return to Normal Activity Allergies/Adverse Reactions: Allergies amitriptyline Allergy (Verified 01/29/17 21:26) Other states rhabdomyolosis from it amoxicillin [Amoxicillin] Allergy (Verified 01/29/17 21:26) Rash erythromycin base [Erythromycin Base] Allergy (Verified 01/29/17 21:26) Rash levofloxacin [From Levaquin] Allergy (Verified 01/29/17 21:26) Swelling milnacipran Allergy (Verified 01/29/17 21:26) Other states got rhabdomyolysis from it milnacipran HCl [From Savella] Allergy (Verified 01/29/17 21:26) Other states had rhabdomyolysis acetaminophen [From Tylenol] Adverse Reaction (Mild, Verified 01/29/17 21:26) Vomiting Only when taking in large amounts celecoxib [From Celebrex] Adverse Reaction (Verified 01/29/17 21:26) Other suicidal thoughts diphenhydramine HCl [From Benadryl] Adverse Reaction (Verified 01/29/17 21:26) muscle spasms duloxetine HCl [From Cymbalta] Adverse Reaction (Verified 01/29/17 21:26) Other states causes suicidal thoughts meloxicam Adverse Reaction (Verified 01/29/17 21:26) Swelling of legs/chest pain Medications to take at Discharge Gabapentin [Neurontin] 400 mg PO 4X/DAY 12/23/15 Tizanidine HCl [Zanaflex] 4 mg PO Q8H PRN 12/23/15 Clonazepam [Klonopin] 0.5 mg PO QHS 02/23/16 MedroxyPROGESTERone [Depo-Provera] 150 mg IM [id number] 03/15/16 Famotidine [Pepcid] 20 mg PO BID #60 tablet 09/27/16 Levetiracetam [Keppra] 1,500 mg PO BID #180 tablet 09/27/16 Trazodone HCl [Desyrel] 150 mg PO HS #30 tablet 09/27/16 Albuterol Inhaler [Ventolin Hfa] 1 puff INHALATION Q4H PRN PRN 10/02/16 Naproxen [Naprosyn] 660 mg PO BID 10/02/16 Aspirin [Aspirin, Baby] 81 mg PO DAILY@0800 #1 bottle 01/30/17 The following prescriptions were given: Aspirin [Aspirin, Baby] 81 mg PO DAILY@0800 #1 bottle Primary Care Physician: Bill Dai MD [Primary Care Provider] - Please follow up with your Primary Care Physician in: 1-2 weeks Please Follow Up With: cardiology When: 1-2 weeks Proposed Discharge Date: 02/02/17
--- NOTE | 2017-02-02 16:26 | PCM.DC.SUM ---
Discharge Date and Diagnosis - Problem List Patient Problems: Active and Suspected Problems Chest pain (Acute) Cough (Acute) H/O aortic valve repair (Acute) SOB (shortness of breath) (Acute) asd repair (Acute) Date of Admission: 01/30/17 Date of Discharge: 02/02/17 - Primary Discharge Diagnosis Active and Suspected Problems Chest pain (Acute) Prolonged QT interval Troponin elevation Acute GI bleed ruled out. Cough (Acute) H/O aortic valve repair (Acute) SOB (shortness of breath) (Acute) asd repair (Acute) - Secondary Discharge Diagnosis Chronic Problems AI (aortic insufficiency) (Chronic) Anxiety disorder (Chronic) Arthritis (Chronic) Exercise-induced asthma (Chronic) Fibromyalgia (Chronic) Hypertension (Chronic) Leiomyosarcoma (Chronic) Migraine (Chronic) Pulmonary hypertension (Chronic) Seizure disorder (Chronic) Syringomyelia (Chronic) Tricuspid regurgitation (Chronic) age17,mitral valve prolapse,bicuspid aor (Chronic) atrial septic defect- repaired (Chronic) Hospital Course and Treatment Imaging Results: Stress echo-negative CTA of the chest-negative CT of the abdomen-negative Chest [id number] Rik/Steven - cardiology Operations: None Procedures: 2-D Echocardiogram, Cardiac catheterization, Stress test Summary of Care Provided: Physical exam on day of discharge: See daily progress note Hospital course: The patient is a 36 year old F who presented to the emergency room with 9 out of 10 chest pressure and pain, coughing, shortness of breath, wheezing who is a smoker, who had nonspecific ST changes and a negative troponin. She was admitted for cardiac workup. CT of the chest was done which was negative to rule out DVT. D-dimer was also negative. She underwent a stress test with echo and had her support troponin cycle the following day. Stress echo was negative however her fourth troponin did elevate so a heart cath was recommended per cardiology especially in light of her continued chest pain with no relief. Heart cath was negative. She was started on Coreg, losartan, baby aspirin daily, Plavix. After her heart cath her EKG demonstrated a prolonged QT interval that was the present prior to catheterization. She is kept in the hospital to monitor QT interval. After the heart cath Plavix was stopped. With the QT interval prolonged her Coreg and SSRI were stopped. No improvement the following day however calcium level was noticeably low. She is given calcium gluconate. Her QT interval did improve after the calcium administration. On the morning of discharge she thought that she had dark red blood in her bowel movement and reported a loose bowel movement. She also had new onset of cramping abdominal pain. CT of the abdomen was obtained and stool was sent for C. difficile and occult blood. An H&H followed by CBC were obtained. Her blood counts improved. Her occult blood was negative. CT of the abdomen was negative. It was not felt that she had any active GI bleeding at that time. She remained in stable condition and was discharged home. She will need to follow-up with her PCP, cardiology, and her psychiatrist.] Discharge Diet: Low fat/ Low Cholesterol, 4000 mg Sodium Diet Discharge Activity: Return to Normal Activity Home Medications: Medications to take at Discharge Gabapentin [Neurontin] 400 mg PO 4X/DAY 12/23/15 Tizanidine HCl [Zanaflex] 4 mg PO Q8H PRN 12/23/15 Clonazepam [Klonopin] 0.5 mg PO QHS 02/23/16 MedroxyPROGESTERone [Depo-Provera] 150 mg IM [id number] 03/15/16 Famotidine [Pepcid] 20 mg PO BID #60 tablet 09/27/16 Levetiracetam [Keppra] 1,500 mg PO BID #180 tablet 09/27/16 Trazodone HCl [Desyrel] 150 mg PO HS #30 tablet 09/27/16 Albuterol Inhaler [Ventolin Hfa] 1 puff INHALATION Q4H PRN PRN 10/02/16 Naproxen [Naprosyn] 660 mg PO BID 10/02/16 Aspirin [Aspirin, Baby] 81 mg PO DAILY@0800 #1 bottle 01/30/17 Following Prescrptions Were Given to Patient: Aspirin [Aspirin, Baby] 81 mg PO DAILY@0800 #1 bottle Primary Care Physician: Bill Dai MD [Primary Care Provider] - Please follow up with your Primary Care Physician in: 1-2 weeks Please Follow Up With: cardiology When: 1-2 weeks Disposition: Home Meaningful Use Info Meaningful Use Diagnoses (Choose all that apply): None applicable
--- NOTE | 2017-02-11 15:18 | CASEMGMT ---
Post-discharge call made. Patient expressed understanding of home care and discharge instructions.
[2017-02-12 03:06] LABS: Barbiturates Negative ng/mL (Cutoff=300); Cannabinoid Negative ng/mL (Cutoff=50); Cocaine Negative ng/mL (Cutoff=300); Codeine Negative (Cutoff=300); Morphine Positive (.); Phencyclidine Negative ng/mL (Cutoff=25)
[2017-02-12 10:44] LABS: Amphetamines Negative ng/mL (Cutoff=1000); Opiates Positive (Cutoff=300); Opiates See Final Results ng/mL (Cutoff=300)
== END 2017-02-02 17:32 | disposition home or self-care (01) | DRG 287 ==
LOC: ED 12-03 10:52 → PCU 12-03 10:52
PROVIDERS: Internal Medicine Cardiovascular Disease; Physician Assistant; Admitting Provider Internal Medicine; Emergency Provider Emergency Medicine; Family Provider Family Medicine; PCP Family Medicine
DX: R07.89 Other chest pain (principal); I27.2 Other secondary pulmonary hypertension; G40.909 Epilepsy, unspecified, not intractable, without status epilepticus; I10 Essential (primary) hypertension; R05 Cough; F17.210 Nicotine dependence, cigarettes, uncomplicated; Z96.653 Presence of artificial knee joint, bilateral; F41.9 Anxiety disorder, unspecified; M79.7 Fibromyalgia; I34.1 Nonrheumatic mitral (valve) prolapse; Z86.718 Personal history of other venous thrombosis and embolism; Z87.74 Personal history of (corrected) congenital malformations of heart and circulatory system; Z79.899 Other long term (current) drug therapy; G43.909 Migraine, unspecified, not intractable, without status migrainosus; Z86.711 Personal history of pulmonary embolism; K21.9 Gastro-esophageal reflux disease without esophagitis; E78.5 Hyperlipidemia, unspecified; I45.81 Long QT syndrome
CPT/HCPCS: 36415; 71020; 71275; 74177; 80048; 80053; 80061; 80307; 81025; 82274; 83735; 83880; 84484; 85014; 85018; 85025; 85379; 85610; 85652; 85730; 86141; 87493; 93005; 93017; 93350; 93458; 94640; 99218; 99285; 99406; J7040; Q9957; Q9967; A4216; C1769; C1894; C8928; G0378; J0610; J2405

== ENCOUNTER 2017-07-14 18:09 | Emergency (ER) | payer MEDICAID, SELFPAY ==
[2017-07-14 18:13] VITALS: BP 128/79; PULSE 68; RESP 18; TEMP 36.6; O2SAT 97; BMI 31.8
--- NOTE | 2017-07-14 18:41 | EKG12_ITS ---
Test Reason : CP Blood Pressure : / mmHG Vent. Rate : 068 BPM Atrial Rate : 068 BPM P-R Int : 134 ms QRS Dur : 080 ms QT Int : 432 ms P-R-T Axes : 036 046 068 degrees QTc Int : 459 ms Normal sinus rhythm Normal ECG Confirmed by DIPIKA ADAMS, CONCEPCION ([id number]), editor managing newspaper OANH AGARWAL ([id number]) on 07/16/2017 1:34:59 PM Referred By: ROLAN
--- NOTE | 2017-07-14 18:52 | RAD_ITS ---
STUDY: X-RAY CHEST REASON FOR EXAM: Female, 36 years old. Chest pressure TECHNIQUE: AP COMPARISON: 06/13/2017 FINDINGS: The lungs are clear and expanded. There is no demonstrated pleural abnormality. Normal size heart. Sternotomy wires are noted. Normal mediastinum and neyda. Normal visualized pulmonary arteries. Normal visualized aortic arch and descending thoracic aorta. Normal visualized thoracic spine. Stable old fracture of the posterior right eighth rib. There is no demonstrated abnormality of the visualized soft tissue structures of the upper abdomen. RAD/Chest 1 View (Portable) IMPRESSION: Stable, nonacute portable x-ray examination of the chest. Electronically Signed: Erickson Modi MD at 19:29 EST , Service support ,
[2017-07-14 19:12] LABS: Absolute Lymphocyte Count 2.05 X10^3/ul (0.83-4.51); Absolute Neutrophil Count 5.6 X10^3/uL (2.0-7.7); Basophil# 0.02 X10^3/uL; Basophil% 0.2 % (0-1); Eosinophils% 2.3 % (0-5); Hematocrit 40.4 % (37-47); Hemoglobin 13.4 g/dl (12.0-15.0); Lymphocyte # 2.05 X10^3/ul (4.0); Lymphocyte % 23.8 % (19-41); Mean Corp Hgb Conc 33.2 g/gl (32-36); Mean Corpuscular Hgb 29.7 pg (27.0-32.0); Mean Corpuscular Volume 89.6 fL (81-99); Monocyte# 0.74 X10^3/uL; Monocyte% 8.6 % (0-10); Neutrophil # 5.59 X10^3/uL (2.7-7.7); Platelet Count 261 K/mm3 (150-450); RBC Distribution Width CV 13.7 % (11.6-14.6); RBC Distribution Width SD 44.9 fl (35.1-43.9); Red Blood Count 4.51 M/mm3 (4.2-5.4); White Blood Count 8.6 K/mm3 (4.4-11.0)
[2017-07-14 19:14] LABS: POSITIVE COUNT NO; POSITIVE DIFFERENTIAL NO; POSITIVE MORPHOLOGY NO
[2017-07-14 19:22] LABS: International Normalized Ratio 1.1; Prothrombin Time (Protime)PT. 13.9 SECONDS (11.7-14.9)
[2017-07-14 19:38] LABS: Anion Gap 5 (5-15); BUN 24 mg/dL (7-18); BUN/Creat Ratio 15.3 RATIO (10-20); Calcium,Total 8.6 mg/dL (8.5-10.1); Chloride 111 mmol/L (98-107); Creatinine, Serum 1.57 mg/dL (0.55-1.02); EST Glomerular Filtration Rate 39 mL/min (>60); Est Glom Filt Rate - Afr Amer 47 mL/min (>60); Estimated Creatinine Clearance 40.19 ml/min; Glucose 85 mg/dL (74-106); Potassium 4.3 mmol/L (3.5-5.1); Sodium Level 140 mmol/L (136-145)
--- NOTE | 2017-07-14 19:50 | ED.VISSUMM ---
- ER Visit Summary Date of Service: 07/14/17 Chief Complaint: Left-sided chest pain and upper extremity pain History of Present Illness: The patient is a 36 F who has multiple medical problems who presents with a 2-3 day history of left-sided chest pain and upper extremity pain. There is no alleviating, precipitating or exacerbating factors. She denies fever, chills night sweats. She denies weight gain or weight loss. She denies any ocular, visual auditory symptoms. She denies shortness of breath. There is no pleuritic component. The there is no positional component. She localizes the pain to the mid chest. She denies nausea, vomiting diarrhea. She denies food intolerance. She denies any leg pain, swelling or discoloration. She does complain of numbness right and left knee. There is no history of trauma. Past medical history of COPD, hypertension, DVT and PE status post total knee arthroplasty. She does have a borderline personality disorder. She had aortic valve repair and ASD repair. Per old records history of ARDS/respiratory failure. Physical Examination: Appears in no distress. Vital signs are normal. She is not febrile nor she hypoxic. Head is atraumatic normocephalic. Pupils are equal round reactive. Extraocular muscles are intact. TMs are pearly white with landmarks noted. Nares patent with no drainage. Posterior pharynx without erythema or exudate. Uvula is midline. There is no dysphonia or dysphasia. Trachea is midline. There is no stridor with auscultation of the neck. Heart is regular without murmur, gallop or rub. S1 and S2 are normal. Lungs are clear to auscultation with good movement of air bilaterally. There is no reproducible pain. Abdomen is soft nontender. There is no asymmetry, swelling, discoloration, leg vein distention, palpable cords or tenderness along the distribution of the deep venous system. Well-healed scars are noted right and left knee secondary to total knee arthroplasty. Examination left upper extremity reveals no rash or evidence of trauma. Axillary, median, radial and ulnar function intact. Test Results: EKG is normal. Chest x-ray is normal. Film is limited secondary to the fact it is portable and respiratory volume is limited. CBC is unremarkable. Troponin is less than 0.02. Creatinine is elevated 1.57. Emergency Department Course and Treatment: Seen protocol was initiated and an EKG, chest x-ray and blood work was obtained. Heart score is 1 Treatment Plan: Since patient's workup is negative she will be discharged home to follow-up with her primary care physician. Her heart score is 1 and she has a normal EKG and troponin with 2 3 days of pain will discharge to home Disposition: Discharged to home Impression: 1. Mid sternal chest discomfort unknown etiology 2. History of borderline personality disorder 3. History hypertension 4. History of COPD This note was generated with [employer] software. It may contain incorrect words, spelling, and punctuation that were not noted in review of the chart prior to signing ED Disposition - Plan for ED Patient: Disposition: Home or Assisted Living Chief Complaint: Chest Pain Instructions: ED Chest Pain NonCardiac Referrals: Bill Dai MD [Primary Care Provider] - 3-5 Days Additional Instructions: It is in your best interest to stop smoking.
[2017-07-14 20:05] VITALS: BP 119/73; PULSE 68
== END 2017-07-14 20:06 | disposition home or self-care (01) ==
PROVIDERS: Emergency Provider Emergency Medicine; Family Provider Family Medicine; PCP Family Medicine
DX: R07.89 Other chest pain (principal); F60.3 Borderline personality disorder; I10 Essential (primary) hypertension; J44.9 Chronic obstructive pulmonary disease, unspecified; J80 Acute respiratory distress syndrome; Z79.899 Other long term (current) drug therapy; Z95.2 Presence of prosthetic heart valve; Z87.74 Personal history of (corrected) congenital malformations of heart and circulatory system; Z72.0 Tobacco use
CPT/HCPCS: 71045; 80048; 84484; 85025; 85610; 93005; 99283; A4216

== ENCOUNTER 2017-07-18 16:09 | Emergency (ER) | payer MEDICAID, SELFPAY ==
[2017-07-18 16:10] VITALS: BP 120/81; PULSE 69; RESP 16; TEMP 37.2; O2SAT 96; BMI 32.1
--- NOTE | 2017-07-18 16:29 | CT_ITS ---
STUDY: CT ABDOMEN AND PELVIS WITH CONTRAST REASON FOR EXAM: Female, 37 years old. Right lower quadrant pain RADIATION DOSAGE (If Supplied By Facility): CTDIvol = ( 15.47 ) mGy, DLP = ( 992.88 ) mGycm TECHNIQUE: Transaxial images were obtained from the dome of the diaphragm to the symphysis pubis without oral contrast. 100 ml of Isovue 300 contrast was administered. Sagittal and coronal images were reconstructed. Individualized dose optimization techniques were used for this CT. COMPARISON: June 25, 2016 FINDINGS: The visualized lung bases are unremarkable. The visualized portions of the heart are within normal limits. Normal liver. Normal gallbladder and extrahepatic biliary system. Normal spleen. Normal pancreas. Normal bilateral adrenal glands. Normal right kidney. Normal left kidney. Normal visualized stomach. Normal small intestine. Normal colon. The appendix is visualized and appears normal. Normal abdominal aorta. Normal inferior vena cava. Normal retroperitoneum. Normal urinary bladder. There are minor cystic changes in the ovaries bilaterally. No significant change since prior exam. Normal abdominal wall. Normal osseous structures. CT/Abdomen/Pelvis W IV Cont ONLY IMPRESSION: Minor cystic changes of the ovaries bilaterally. No acute abnormalities and specifically no evidence for hydronephrosis or ureteral calculus. Normal appendix. Electronically Signed: Jaun Decker MD at 18:57 EST , Service support ,
[2017-07-18 16:48] LABS: Mucous, Urine 0 SEEN /hpf (<or=2+); Red Blood Cells-Urine 0 SEEN /hpf (0-5)
[2017-07-18 16:54] LABS: Internal QC Validated? YES +Cl - CLEAR BKGD
[2017-07-18 16:55] LABS: Pregnancy, Urine Negative Negative
[2017-07-18 16:56] LABS: Color, Urine Yellow (Yellow); Glucose, Dipstick Normal (Normal); Ketone-Dipstick Negative (Negative); Leukocyte Esterase-Dipstick 25 /ul (Negative); Nitrite-Dipstick Negative (Negative); Occult Blood-Urine Negative /ul (Negative); Protein-Dipstick Negative (Negative); Urine Bilirubin Dipstick Negative (Negative); Urine Clarity Clear (Clear); Urine Urobilinogen Normal (Normal)
[2017-07-18 17:02] LABS: Bacteria 2+ /hpf (None Seen); Squamous Epithelial Cells - UA 0-5 SEEN /hpf (5-10); White Blood Cells 0-5 SEEN /hpf (0-5)
[2017-07-18 17:45] LABS: Absolute Lymphocyte Count 1.74 X10^3/ul (0.83-4.51); Basophil# 0.02 X10^3/uL; Basophil% 0.3 % (0-1); Eosinophil# 0.21 X10^3/uL; Eosinophils% 2.7 % (0-5); Hematocrit 38.5 % (37-47); Hemoglobin 13.1 g/dl (12.0-15.0); Lymphocyte # 1.74 X10^3/ul (4.0); Lymphocyte % 22.4 % (19-41); Mean Corpuscular Hgb 30.2 pg (27.0-32.0); Mean Corpuscular Volume 88.7 fL (81-99); Mean Platelet Vol. 10.1 fl (6.2-12.0); Monocyte% 10.3 % (0-10); Neutrophil # 4.97 X10^3/uL (2.7-7.7); Platelet Count 276 K/mm3 (150-450); RBC Distribution Width CV 13.5 % (11.6-14.6); RBC Distribution Width SD 43.1 fl (35.1-43.9); Red Blood Count 4.34 M/mm3 (4.2-5.4); White Blood Count 7.8 K/mm3 (4.4-11.0)
[2017-07-18 17:51] LABS: POSITIVE COUNT NO; POSITIVE DIFFERENTIAL NO; POSITIVE MORPHOLOGY NO
[2017-07-18] MEDS: Ondansetron 4 MG/2 ML Vial IV (17:52)
[2017-07-18] MEDS: 0.9% Normal Saline 1,000 ML 250 ML IV (17:52)
[2017-07-18] MEDS: fentaNYL 100 MCG/2 ML Ampul 50 MCG IV (17:54)
[2017-07-18 17:55] LABS: ALB/GLOB Ratio 1.1 RATIO (0.9-2.4); AST(SGOT) 15 U/L (15-37); Alanine Aminotransfer ALT/SGPT 21 U/L (13-56); Albumin, Serum 3.8 g/dL (3.2-5.0); Alkaline Phosphatase 75 U/L (45-117); Anion Gap 6 (5-15); BUN 17 mg/dL (7-18); BUN/Creat Ratio 19.3 RATIO (10-20); Calcium,Total 8.6 mg/dL (8.5-10.1); Chloride 109 mmol/L (98-107); Creatinine, Serum 0.88 mg/dL (0.55-1.02); EST Glomerular Filtration Rate 76 mL/min (>60); Est Glom Filt Rate - Afr Amer 92 mL/min (>60); Globulin 3.4 g/dL (2.2-4.2); Glucose 83 mg/dL (74-106); Potassium 4.2 mmol/L (3.5-5.1); Protein, Total 7.2 g/dL (6.4-8.2); Sodium Level 139 mmol/L (136-145)
--- NOTE | 2017-07-18 19:01 | ED.VISSUMM ---
- ER Visit Summary Date of Service: 07/18/17 Chief Complaint: Abdominal pain History of Present Illness: The patient is a 37 F with right lower quadrant abdominal pain that started yesterday, more gradually, much worse today. She went to urgent care and was referred here to have evaluation for appendicitis. She has been nauseated, the pain does radiate into her back a little bit, but the pain has not been migratory. Last bowel movement was 3-4 days ago but she states that is not unusual for her. Normal urination. Denies being . Denies any prior abdominal surgeries. No fevers. She has a history of kidney stones but states she has no idea of this feels similar to a prior one or not. She also has a history of fibromyalgia, pulmonary hypertension, she had a pulmonary embolus postoperatively after 1 of her knee replacements and is no longer on anticoagulants, mitral valve prolapse, bicuspid aortic valve, migraines. Physical Examination: Uncomfortable. Anxious. Vital signs unremarkable. Very tender in the right lower quadrant, more into the pelvis than McBurney's point. There is voluntary guarding there. No rebound tenderness. No distention. Abdomen is soft and with normal bowel sounds and otherwise nontender. No CVA tenderness. Lungs clear, heart is regular without tachycardia. No rashes. Test Results: Labs are normal, urinalysis shows no acute infection, negative, CT abdomen and pelvis with IV contrast shows no acute abnormalities. A normal appendix was visualized. Emergency Department Course and Treatment: Noted on CT incidentally was multicystic ovaries unchanged compared with the prior. There was not a large amount of free fluid noted, although small amounts are better seen on ultrasound. It is possible she had a ruptured ovarian cyst. This was not a sudden onset severe pain that would make me more suspicious of a torsion. Her pain is better controlled after IV fluids, Zofran, fentanyl. Will discharge her home on a short course of pain medication. Treatment Plan: Supportive care and follow-up Disposition: Discharge home Impression: Right lower quadrant abdominal pain This note was generated with [employer] dictation software. It may contain incorrect words, spelling, and punctuation that were not noted in review of the chart prior to signing ED Disposition - Plan for ED Patient: Disposition: Home or Assisted Living Chief Complaint: Abd Pain Instructions: ED Abdominal Pain Unkn Cause, ED Cyst Ovarian Prescriptions: Hydrocodone/Acetaminophen [[place] 5-325 Tablet] 1 ea PO Q4H PRN 2 Days #8 tab PRN Reason: Pain Referrals: Danielle Reagan MD [STAFF PHYSICIAN] - 3-5 Days if not improving
[2017-07-18 19:30] VITALS: BP 136/87; PULSE 65; RESP 18; O2SAT 94
[2017-07-18] MEDS: Ketorolac 30 MG/ML Syringe IV (19:39)
== END 2017-07-18 19:40 | disposition home or self-care (01) ==
PROVIDERS: Emergency Provider Emergency Medicine; Family Provider Family Medicine; PCP Family Medicine
DX: N83.202 Unspecified ovarian cyst, left side (principal); N83.201 Unspecified ovarian cyst, right side; R10.31 Right lower quadrant pain; R11.0 Nausea; I27.20 Pulmonary hypertension, unspecified; I34.1 Nonrheumatic mitral (valve) prolapse; Q23.1 Congenital insufficiency of aortic valve; M79.7 Fibromyalgia; Z87.442 Personal history of urinary calculi; Z79.899 Other long term (current) drug therapy
CPT/HCPCS: 74177; 80053; 81001; 81025; 85025; 96361; 96374; 96375; 99282; J7030; Q9967; A4216; J2405

== ENCOUNTER 2017-09-08 00:57 | Emergency (ER) | payer MEDICAID, SELFPAY ==
[2017-09-08 00:58] VITALS: BP 138/79; PULSE 88; RESP 16; TEMP 36.6; O2SAT 99; BMI 33.7
[2017-09-08] MEDS: HYDROcodone Bitartrate/Apap 5/325 Tablet PO (01:31)
[2017-09-08 01:55] LABS: Internal QC Validated? YES +Cl - CLEAR BKGD; Pregnancy, Urine Negative Negative
[2017-09-08 02:44] LABS: Bacteria 0 SEEN /hpf (None Seen); Mucous, Urine 0 SEEN /hpf (<or=2+); Red Blood Cells-Urine 0 SEEN /hpf (0-5)
[2017-09-08 02:49] LABS: Color, Urine Yellow (Yellow); Glucose, Dipstick Normal (Normal); Ketone-Dipstick Negative (Negative); Leukocyte Esterase-Dipstick 500 /ul (Negative); Nitrite-Dipstick Negative (Negative); Occult Blood-Urine 10 /ul (Negative); Protein-Dipstick 15 mg/dl (Negative); Specific Gravity, Urine 1.025 (1.002-1.030); Urine Bilirubin Dipstick Negative (Negative); Urine Clarity Sl. Cloudy (Clear); Urine Urobilinogen Normal (Normal)
--- NOTE | 2017-09-08 02:54 | ED.VISSUMM ---
- ER Visit Summary Date of Service: 09/08/17 Chief Complaint: Pain History of Present Illness: The patient is a 37 F with suprapubic cramping for several hours. She also has back pain. This is a chronic issue. Patient reports a history of ovarian cyst and fibroids. Denies fevers. Denies any other GI symptoms. Denies vaginal bleeding or discharge. She does have Depo-Provera. Physical Examination: Afebrile and vital signs unremarkable. Nontoxic and in no acute distress. Heart regular. Lungs clear. Abdomen is soft and nontender. Back is nontender. Skin appears normal. Test Results: test negative. Urinalysis pending. Emergency Department Course and Treatment: Patient treated with [place] while awaiting results. Urinalysis is likely contaminated, but there is some suggestion of an infection. Culture was sent. She was given a dose of Macrobid. Prescription for home. Follow-up with primary care. Return if worse. Treatment Plan: Above Disposition: Discharged Impression: 1. UTI, acute cystitis This note was generated with [employer] dictation software. It may contain incorrect words, spelling, and punctuation that were not noted in review of the chart prior to signing ED Disposition - Plan for ED Patient: Chief Complaint: Flank Pain Referrals: Bill Dai MD [Primary Care Provider] -
[2017-09-08 02:55] LABS: Squamous Epithelial Cells - UA 25-50 SEEN /hpf (5-10); White Blood Cells 5-10 SEEN /hpf (0-5)
--- NOTE | 2017-09-08 02:58 | ED.DEP ---
ED Disposition - Plan for ED Patient: Chief Complaint: Flank Pain Instructions: ED UTI Cystitis Female Prescriptions: Nitrofurantoin Monohyd/M-Cryst [Macrobid 100 mg Capsule] 100 mg PO BID #14 cap Referrals: Bill Dai MD [Primary Care Provider] -
[2017-09-08 03:03] VITALS: PULSE 86; RESP 16; O2SAT 99
[2017-09-08] MEDS: Nitrofurantoin Macrocrystals 100 MG Capsule PO (03:04)
== END 2017-09-08 03:05 | disposition home or self-care (01) ==
PROVIDERS: Emergency Provider Emergency Medicine; Family Provider Family Medicine; PCP Family Medicine
DX: N30.00 Acute cystitis without hematuria (principal); D25.9 Leiomyoma of uterus, unspecified; N83.209 Unspecified ovarian cyst, unspecified side; F41.9 Anxiety disorder, unspecified; M79.7 Fibromyalgia; G40.909 Epilepsy, unspecified, not intractable, without status epilepticus; G89.29 Other chronic pain; Z72.0 Tobacco use
CPT/HCPCS: 81001; 81025; 87086; 87088; 99283

== ENCOUNTER 2017-09-14 18:13 | Emergency (ER) | payer MEDICAID, SELFPAY ==
[2017-09-14 18:14] VITALS: BP 118/71; PULSE 85; RESP 16; TEMP 36.8; O2SAT 95; BMI 33.6
--- NOTE | 2017-09-14 18:35 | RAD_ITS ---
STUDY: X-RAY - RIGHT HAND REASON FOR EXAM: Female, 37 years old. Injury TECHNIQUE: 3 view(s) of the hand. COMPARISON: None. FINDINGS: Normal radiocarpal articulation. Normal distal radioulnar joint. Normal visualized carpal bones. Normal carpal articulations Normal carpometacarpal articulation of the thumb. Normal second through fifth carpometacarpal joints. Normal metacarpi. Normal metacarpophalangeal joint of the thumb. Normal interphalangeal joint of the thumb. Normal proximal and distal phalanges of the thumb. Normal metacarpophalangeal joints of the second through fifth fingers. Normal proximal and distal interphalangeal joints of the second through fifth fingers. Normal phalanges of the second through fifth fingers. The soft tissue structures are unremarkable. RAD/Hand Min 3 Views IMPRESSION: Normal x-ray examination of the hand. Electronically Signed: Zka Carlson DO at 18:56 EDT , Service support ,
--- NOTE | 2017-09-14 19:22 | ED.DCSUM_ITS ---
- ER Visit Summary Date of Service: 09/14/17 Chief Complaint: Left hand injury History of Present Illness: The patient is a 37 F who presents with left hand injury. Patient states that 4 days ago she dropped a barbell on her left hand. She then today closed her left hand in a car door. She has pain and swelling of the back of her left hand. She is right-hand dominant. Physical Examination: Vital signs are unremarkable. Patient sitting upright in bed no acute distress. Left upper extremity examination significant for edema and early ecchymosis over the metacarpals of the left hand. There is no tenderness over the phalanges. She is normal cap refill. There is no tenderness at the wrist, elbow, or shoulder. There are no abrasions. Test Results: Left hand x-rays are unremarkable. Emergency Department Course and Treatment: She was given ice pack here. Following x-ray read she is placed in an Lester wrap. She is instructed to use Tylenol or ibuprofen. Treatment Plan: [] Disposition: Discharge Impression: Crush injury left hand This note was generated with [employer] dictation software. It may contain incorrect words, spelling, and punctuation that were not noted in review of the chart prior to signing ED Disposition - Plan for ED Patient: Disposition: Home or Assisted Living Chief Complaint: Upper Extremity Injury Instructions: ED Crush Injury Finger No Fx Referrals: Bill Dai MD [Primary Care Provider] - 1 Week
[2017-09-14 19:30] VITALS: RESP 16
== END 2017-09-14 19:31 | disposition home or self-care (01) ==
PROVIDERS: Emergency Provider Emergency Medicine; Family Provider Family Medicine; PCP Family Medicine
DX: S67.22XA Crushing injury of left hand, initial encounter (principal); W20.8XXA Other cause of strike by thrown, projected or falling object, initial encounter; Y93.9 Activity, unspecified; Y92.9 Unspecified place or not applicable; I25.2 Old myocardial infarction; J45.909 Unspecified asthma, uncomplicated; M79.7 Fibromyalgia; G40.909 Epilepsy, unspecified, not intractable, without status epilepticus; F32.9 Major depressive disorder, single episode, unspecified; F41.9 Anxiety disorder, unspecified; Z79.899 Other long term (current) drug therapy; Z72.0 Tobacco use
CPT/HCPCS: 73130; 99282

== ENCOUNTER 2017-09-20 19:46 | Emergency (ER) | payer MEDICAID, SELFPAY ==
[2017-09-20 19:47] VITALS: BP 121/83; PULSE 76; RESP 19; TEMP 37; O2SAT 97; BMI 34.2
--- NOTE | 2017-09-20 20:03 | EKG12_ITS ---
Test Reason : Blood Pressure : / mmHG Vent. Rate : 073 BPM Atrial Rate : 073 BPM P-R Int : 128 ms QRS Dur : 078 ms QT Int : 410 ms P-R-T Axes : 040 016 063 degrees QTc Int : 451 ms Normal sinus rhythm Nonspecific ST and T wave abnormality Abnormal ECG Confirmed by CIERA ADAMS, MEENA ([id number]), editorial manager OANH AGARWAL ([id number]) on 09/23/2017 2:07:09 PM Referred By: Confirmed By:MEENA VANG MD
--- NOTE | 2017-09-20 20:20 | RAD_ITS ---
STUDY: X-RAY CHEST REASON FOR EXAM: Female, 37 years old. Chest pains with shortness of breath x1 day TECHNIQUE: PA and lateral views of the chest. COMPARISON: Previous study of July 14, 2017 FINDINGS: laboratory monitor leads are present. The lungs are clear and expanded. There is no demonstrated pleural abnormality. Status post sternotomy changes are present. Normal mediastinum and neyda. Normal visualized pulmonary arteries. Normal visualized aortic arch and descending thoracic aorta. Normal visualized thoracic spine. There is an old healed fracture of the right eighth rib. There is no demonstrated abnormality of the visualized soft tissue structures of the upper abdomen. RAD/Chest PA and Lateral IMPRESSION: Status post sternotomy. Old healed fracture of the posterior right eighth rib. No acute cardiopulmonary disease process is seen. Chest findings are stable in the interval. Electronically Signed: Micah Gaxiola MD at 21:02 EDT , Service support ,
--- NOTE | 2017-09-20 21:08 | ED.VISSUMM ---
- ER Visit Summary Date of Service: 09/20/17 Chief Complaint: Pain bottom of my heart History of Present Illness: The patient is a 37 F [place] with a palpitation squeezing discomfort bottom of her heart without radiation or associated symptoms. This occurred at rest 1 hour prior to presentation. She does give URI symptoms of nasal congestion, runny nose, nonproductive cough. She is a smoker of one quarter pack per day. Last stress test was approximately 3 years ago and negative. She has past history of chest pain of unknown etiology as well as fibromyalgia. She also has past history significant for ASD repair and repair of her aortic valve. Patient denies any fever, chills or night sweats. She denies any ocular, visual or auditory symptoms. She denies any nausea, vomiting or diarrhea. Denies hematemesis, melena hematochezia. She denies any back pain. She denies any leg pain, swelling discoloration. There is a prior history of PE and DVT. Physical Examination: Vital signs are normal. BMI is 34.2. There was no eye contact during the history or physical examination. Head is atraumatic normocephalic. Pupils are equal round reactive. Extraocular muscles are intact. TMs are pearly white with landmarks noted. Nares patent with no drainage. Posterior pharynx without erythema or exudate. Uvula is midline. There is no dysphonia or dysphasia. Trachea is midline. There is no stridor with auscultation of the neck. Heart is regular without murmur, gallop or rub. S1 and S2 are normal. Lungs are clear to auscultation with good movement of air bilaterally. There is no reproducible chest pain or abdominal pain. There is no hepatomegaly. Bowel sounds are present normal. There is no asymmetry, swelling, discoloration, leg vein distention, palpable cords or tenderness along the distribution of the deep venous system. She is alert she is oriented. She has a restrictive affect. Test Results: EKG with pain reveals a sinus rhythm with artifact. Two-view chest x-ray reveals sternotomy wire secondary to prior cardiac surgery and evidence of a prior left rib fracture, rib 7 or 8. Troponin less than 0.02. Emergency Department Course and Treatment: To evaluation patient's symptoms EKG chest x-ray and troponin were obtained. Treatment Plan: Heart score is 0. In my professional medical opinion this does not represent cardiac ischemic pain. Since this is not pleuritic and she denies any shortness of breath it is my opinion that this does not represent a pulmonary embolus. Disposition: Discharge with instructions to follow-up with PCP Dr. Beltran Impression: Chest pain of unknown etiology History of fibromyalgia History of PE and DVT History of prior chest pain of unknown etiology History of personality disorder History of depression History of seizure disorder This note was generated with [employer] software. It may contain incorrect words, spelling, and punctuation that were not noted in review of the chart prior to signing ED Disposition - Plan for ED Patient: Disposition: Home or Assisted Living Chief Complaint: Chest Pain Instructions: ED Chest Pain NonCardiac Referrals: Bill Dai MD [Primary Care Provider] - 3-5 Days if not improving
[2017-09-20 21:27] VITALS: BP 111/66; PULSE 68; RESP 20; O2SAT 97
== END 2017-09-20 21:27 | disposition home or self-care (01) ==
PROVIDERS: Emergency Provider Emergency Medicine; Family Provider Family Medicine; PCP Family Medicine
DX: R07.9 Chest pain, unspecified (principal); M79.7 Fibromyalgia; F60.9 Personality disorder, unspecified; F32.9 Major depressive disorder, single episode, unspecified; G40.909 Epilepsy, unspecified, not intractable, without status epilepticus; F17.200 Nicotine dependence, unspecified, uncomplicated; Z86.718 Personal history of other venous thrombosis and embolism; Z86.711 Personal history of pulmonary embolism; Z79.899 Other long term (current) drug therapy
CPT/HCPCS: 71046; 84484; 93005; 99285

== ENCOUNTER 2017-09-20 23:53 | Emergency (ER) | payer MEDICAID, SELFPAY ==
[2017-09-20 23:54] VITALS: BP 126/85; PULSE 75; RESP 15; TEMP 37; BMI 33.6
--- NOTE | 2017-09-21 00:30 | EKG12_ITS ---
Test Reason : Blood Pressure : / mmHG Vent. Rate : 064 BPM Atrial Rate : 064 BPM P-R Int : 152 ms QRS Dur : 084 ms QT Int : 446 ms P-R-T Axes : 044 029 075 degrees QTc Int : 460 ms Normal sinus rhythm T wave abnormality, consider anterior ischemia Prolonged QT Abnormal ECG Confirmed by CIERA ADAMS, MEENA ([id number]), newspaper editor managing OANH AGARWAL ([id number]) on 09/23/2017 2:07:30 PM Referred By: LLOYD Confirmed By:MEENA VANG MD
[2017-09-21 00:52] LABS: Erythrocyte Sedimentation Rate 4 mm/hr (0-20)
[2017-09-21 01:15] LABS: D-Dimer Quantitative (DVT/PE) 0.45 FEU/ug/m (0.27-0.49)
[2017-09-21 01:34] VITALS: BP 129/84; PULSE 68; RESP 15; O2SAT 96
--- NOTE | 2017-09-21 01:46 | ED.DCSUM_ITS ---
- ER Visit Summary Date of Service: 09/21/17 Chief Complaint: Chest pain History of Present Illness: The patient is a 37 F presenting for evaluation secondary chest pain. Patient states that she had a relatively sudden onset of chest pain today at 1800. This occurred while she was at rest. She states that since then it is been a continuous sharp chest pain located over the left side of her chest. Patient states that it is improved by sitting upright and worsened by lying flat. It has been associated with dyspnea and lightheadedness. Patient states that she had a low-grade temperature 99.2 a couple days ago, but has not had any other infectious signs or symptoms. Patient has a prior history of aortic valve repair as well as DVT and PE there were a result of a knee replacement surgery. She is not currently on any sort of anticoagulants. Patient was seen in the emergency department earlier today for this and had a workup including chest x-ray lab work and EKG and was discharged. Patient states that she simply feels that she is not getting any better so she presented back to the emergency department for repeat evaluation. Physical Examination: Vital signs are within normal limits, patient is afebrile. General: Patient is well-nourished well-developed and in no acute distress. Head: Normocephalic, atraumatic Eyes: Pupils equal round and reactive bilaterally, extra occular motion intact bialterally ENT: Moist mucous membranes Neck: Supple, no lymphadenopathy, no JVD, no meningismus CVS: Heart regular rate and rhythm, 2 out of 6 systolic murmur noted, rubs or gallops, radial pulses 2+ bilaterally Resp: Respirations nondistressed, lung sounds clear bilaterally, left anterior chest tenderness Abdomen: Soft, nontender, nondistended, no palpable masses, normal bowel sounds Back: Nontender Extremities: Nontender, atraumatic, active full range of motion, no peripheral edema Skin: warm, no rashes, no petechia Neuro: Alert and oriented x 4, CN 2-12 intact, no lateralizing neurological defecits Psyc: Normal affect Test Results: EKG shows a sinus rhythm of 75 with nonspecific T changes that are consistent with prior EKGs and unchanged. Troponin negative, d-dimer negative, ESR negative Emergency Department Course and Treatment: Patient presented secondary chest pain. She has had continuous chest pain over the course of the last 6 hours. She had a negative workup before, she was complaining of some positional component to this so there was at least some concern for the possibility of pericarditis and ESR was obtained and was negative, she also complained of a pleuritic component d-dimer was obtained and was found to be negative. Patient does have an underlying history of tobacco use, hypertension, and had some nonspecific EKG changes so her heart score is 2 making her low risk. GABRIELA risk score is 1 for aspirin use. I do not believe that she requires admission at this point. Her pain is reproducible making it likely more a musculoskeletal etiology such as costochondritis. At this point patient will be discharged with continued conservative management. She will follow-up with primary care. Disposition: Discharge Impression: 1. Atypical chest pain, likely costochondritis This note was generated with [employer] dictation software. It may contain incorrect words, spelling, and punctuation that were not noted in review of the chart prior to signing ED Disposition - Plan for ED Patient: Disposition: Home or Assisted Living Chief Complaint: Chest Pain Diagnosis: Costochondritis, acute Instructions: ED Chest Wall Pain [facility] Referrals: Bill Dai MD [Primary Care Provider] - 3-5 Days
[2017-09-21 02:00] VITALS: BP 129/84; PULSE 68; RESP 15; O2SAT 96
--- NOTE | 2017-09-22 10:12 | CASEMGMT ---
Social Work Note Referral from Dr. Casiano for EDCP. Pt has had 10 ED visits since 05/28/17 and primarily for chest pain. Placed call to pt, and introduced self and role at [facility]. Pt confirms that her PCP is Dr. Dai and her preferred pharmacy is [facility] ([place]). Pt denies having a follow-up appointment scheduled with Dr. Dai at this time, and SW encourages her to do so in the next 1-2 weeks. Pt reports to be employed and have access to transportation. Denies financial concerns and does have medical insurance through Medicaid ([facility]). Reports a hx of anxiety and depression. She has a counseling appointment this week, and sees a psychiatrist every 6 months. Discussed the significance of the pt having 10 ED visits so far just this year and encouraged her to follow up with her PCP or if it is more related to anxiety to contact her counselor prior to visiting the ED. Pt expresses understanding and denies further needs. Pt made aware that SW is available if needs/questions arise. Will continue to follow and assist. EDCP to be incorporated into care for continuity. Sarah Najera, SUPPORT ASSOCIATE, LIFT SUPERVISOR
== END 2017-09-21 02:01 | disposition home or self-care (01) ==
PROVIDERS: Emergency Provider Emergency Medicine; Family Provider Family Medicine; PCP Family Medicine
DX: R07.89 Other chest pain (principal); I10 Essential (primary) hypertension; I27.20 Pulmonary hypertension, unspecified; M79.7 Fibromyalgia; G40.909 Epilepsy, unspecified, not intractable, without status epilepticus; F60.9 Personality disorder, unspecified; F32.9 Major depressive disorder, single episode, unspecified; F17.200 Nicotine dependence, unspecified, uncomplicated; Z86.718 Personal history of other venous thrombosis and embolism; Z86.711 Personal history of pulmonary embolism; Z79.01 Long term (current) use of anticoagulants; Z79.899 Other long term (current) drug therapy; Z95.2 Presence of prosthetic heart valve
CPT/HCPCS: 71046; 84484; 85379; 85652; 93005; 99282; 99285; A4216

== ENCOUNTER 2017-09-23 13:33 | Emergency (ER) | payer MEDICAID, SELFPAY ==
--- NOTE | 2017-09-23 13:40 | EKG12_ITS ---
Test Reason : CP Blood Pressure : / mmHG Vent. Rate : 056 BPM Atrial Rate : 056 BPM P-R Int : 154 ms QRS Dur : 082 ms QT Int : 458 ms P-R-T Axes : 053 028 065 degrees QTc Int : 441 ms Sinus bradycardia Otherwise normal ECG Confirmed by CIERA ADAMS, MEENA ([id number]), videotape editor OANH AGARWAL ([id number]) on 09/26/2017 3:22:09 PM Referred By: ISAAC Confirmed By:MEENA VANG MD
[2017-09-23 13:44] VITALS: BP 114/82; BP 126/78; PULSE 58; PULSE 59; RESP 15; RESP 9; TEMP 36.8; O2SAT 97; O2SAT 98; O2SAT 99; BMI 33.6
--- NOTE | 2017-09-23 13:45 | RAD_ITS ---
STUDY: X-RAY CHEST REASON FOR EXAM: Female, 37 years old. chest pain since 11am today, HX open heart surgery in 2000 TECHNIQUE: Single AP portable view of the chest. COMPARISON: None. FINDINGS: The lungs are clear and expanded. There is no demonstrated pleural abnormality. Normal size heart. Normal mediastinum and neyda. Normal visualized pulmonary arteries. Normal visualized aortic arch and descending thoracic aorta. Normal visualized thoracic spine. Normal visualized ribs, clavicles, and shoulders. There is no demonstrated abnormality of the visualized soft tissue structures of the upper abdomen. RAD/Chest 1 View (Portable) IMPRESSION: No demonstrated acute cardiopulmonary process. Electronically Signed: Rui Ward MD at 14:27 EDT Tel , Service support ,
[2017-09-23 14:01] LABS: Absolute Lymphocyte Count 1.17 X10^3/ul (0.83-4.51); Absolute Neutrophil Count 6.2 X10^3/uL (2.0-7.7); Basophil# 0.03 X10^3/uL; Basophil% 0.4 % (0-1); Eosinophil# 0.09 X10^3/uL; Eosinophils% 1.1 % (0-5); Hematocrit 37.6 % (37-47); Hemoglobin 12.4 g/dl (12.0-15.0); Lymphocyte # 1.17 X10^3/ul (4.0); Lymphocyte % 14.6 % (19-41); Mean Corpuscular Hgb 30.1 pg (27.0-32.0); Mean Corpuscular Volume 91.3 fL (81-99); Mean Platelet Vol. 10.2 fl (6.2-12.0); Monocyte% 6.3 % (0-10); Neutrophil # 6.19 X10^3/uL (2.7-7.7); Neutrophil % 77.3 % (47-70); POSITIVE COUNT NO; POSITIVE DIFFERENTIAL NO; POSITIVE MORPHOLOGY NO; Platelet Count 274 K/mm3 (150-450); RBC Distribution Width CV 13.2 % (11.6-14.6); RBC Distribution Width SD 44.1 fl (35.1-43.9); Red Blood Count 4.12 M/mm3 (4.2-5.4)
[2017-09-23 14:14] LABS: Anion Gap 9 (5-15); BUN 18 mg/dL (7-18); BUN/Creat Ratio 16.5 RATIO (10-20); Calcium,Total 8.6 mg/dL (8.5-10.1); Chloride 107 mmol/L (98-107); Creatinine, Serum 1.09 mg/dL (0.55-1.02); EST Glomerular Filtration Rate 59 mL/min (>60); Est Glom Filt Rate - Afr Amer 72 mL/min (>60); Estimated Creatinine Clearance 57.32 ml/min; Glucose 99 mg/dL (74-106); Potassium 4.2 mmol/L (3.5-5.1); Sodium Level 138 mmol/L (136-145)
[2017-09-23 14:55] VITALS: BP 127/70; PULSE 66; RESP 21; O2SAT 97
[2017-09-23] MEDS: Ketorolac 30 MG/ML Syringe IV (15:08)
[2017-09-23 15:18] LABS: D-Dimer Quantitative (DVT/PE) 0.54 FEU/ug/m (0.27-0.49)
--- NOTE | 2017-09-23 15:20 | CT_ITS ---
STUDY: CTA CHEST REASON FOR EXAM: Female, 37 years old. CP, ABN D DIMER RADIATION DOSAGE (If Supplied By Facility): CTDIvol = ( 15.36 ) mGy, DLP = ( 442.84 ) mGycm TECHNIQUE: The examination was performed with the intravenous administration of 75 ml of Isovue 370 contrast material. Post-processing of the angiographic images was performed, with multiplanar reformation and 3D reconstruction. Individualized dose optimization techniques were used for this CT. COMPARISON: None. FINDINGS: Normal enhancement of the main pulmonary artery and right and left pulmonary arteries. Normal enhancement of the bilateral peripheral pulmonary arteries. There is no demonstrated pulmonary embolism. Normal thoracic aorta and visualized great vessels. There is no demonstrated aortic dissection. Normal heart and pericardium. Normal mediastinum. Normal hilar regions. Normal visualized trachea and bronchi. The lungs are well expanded. Ill-defined groundglass opacities are seen in the anterior segment of right lung upper lobe and in the right middle lobe may represent early pneumonia. Normal pleura. Normal chest wall structures. Normal osseous structures. Normal visualized upper abdomen. CT/CTA Chest W/WO Contrast IMPRESSION: No demonstrated pulmonary embolism or arterial dissection. Possible pneumonia in the right upper lobe and right middle lobe. Electronically Signed: Rui Ward MD at 16:13 EDT Tel , Service support ,
--- NOTE | 2017-09-23 15:21 | ED.RN ---
Critical D-Dimer reported to Dr. Singh and primary RN.
--- NOTE | 2017-09-23 15:47 | ED.RN ---
LAB CALLED WITH D-DIMER 0.54. DR. ESPINOZA WAS INFORMED, ORDERS RECEIVED.
[2017-09-23 16:20] VITALS: BP 144/90; PULSE 54; RESP 16; O2SAT 97
--- NOTE | 2017-09-23 16:23 | ED.VISSUMM ---
- ER Visit Summary Date of Service: 09/23/17 Chief Complaint: Chest pain History of Present Illness: The patient is a 37 F history of prior TIA, DVT and PE and bicuspid aortic valve. Also mitral valve prolapse. She had a cardiac cath years ago and has had both aortic valve and ASD repair years ago. Patient complaining of chest pain intermittently for weeks. Worse today at 1130. States it comes and goes is not associated with exertion she denies any hemoptysis. She denies any recent travel, surgery or mobilization. Reportedly she is not . She has had prior ER visits workups that were negative. Physical Examination: Anxious female vital signs are stable afebrile. Pulse ox 90% room air no signs of hypoxia. H EENT exam unremarkable neck nontender no JVD. Lungs clear to auscultation bilaterally. Heart regular rate and rhythm no murmur. Chest wall nontender. Abdomen soft nontender normal bowel sounds no peritoneal signs. Moving all 4 extremities. Neurovascular intact. He has pulses are equal symmetrical. Calves are nontender without edema or cords. Her logically she is awake and alert with no focal motor deficits. Test Results: Patient with atypical chest pain test results chest x-ray is normal as read by the radiologist and myself. CBC normal. BMP normal. Troponin normal. EKG sinus bradycardia rate of 56 with no signs of ID or ischemia. No change from a prior EKG from September 21. D-dimer slightly elevated 0.54. Patient did undergo a CT of the chest which showed no acute abnormality. No PE or dissection. I did review the CAT scan myself and was officially read by the radiologist. Emergency Department Course and Treatment: Repeat exam patient doing well she will be discharged home. Treatment Plan: Motrin for pain. Follow-up with her primary care physician Dr. Dai Disposition: Discharge Impression: Acute atypical chest pain of uncertain etiology History of prior valve surgery and atrial septal defect This note was generated with [employer] dictation software. It may contain incorrect words, spelling, and punctuation that were not noted in review of the chart prior to signing ED Disposition - Plan for ED Patient: Chief Complaint: Chest Pain Referrals: Bill Dai MD [Primary Care Provider] -
--- NOTE | 2017-09-23 16:28 | ED.DCSUM_ITS ---
- ER Visit Summary Date of Service: 09/23/17 Chief Complaint: Chest pain History of Present Illness: The patient is a 37 F history of prior TIA, DVT and PE and bicuspid aortic valve. Also mitral valve prolapse. She had a cardiac cath years ago and has had both aortic valve and ASD repair years ago. Patient complaining of chest pain intermittently for weeks. Worse today at 1130. States it comes and goes is not associated with exertion she denies any hemoptysis. She denies any recent travel, surgery or mobilization. Reportedly she is not . She has had prior ER visits workups that were negative. Physical Examination: Anxious female vital signs are stable afebrile. Pulse ox 90% room air no signs of hypoxia. H EENT exam unremarkable neck nontender no JVD. Lungs clear to auscultation bilaterally. Heart regular rate and rhythm no murmur. Chest wall nontender. Abdomen soft nontender normal bowel sounds no peritoneal signs. Moving all 4 extremities. Neurovascular intact. He has pulses are equal symmetrical. Calves are nontender without edema or cords. Her logically she is awake and alert with no focal motor deficits. Test Results: Patient with atypical chest pain test results chest x-ray is normal as read by the radiologist and myself. CBC normal. BMP normal. Troponin normal. EKG sinus bradycardia rate of 56 with no signs of OK or ischemia. No change from a prior EKG from September 21. D-dimer slightly elevated 0.54. Patient did undergo a CT of the chest which showed no acute abnormality. No PE or dissection. I did review the CAT scan myself and was officially read by the radiologist. Emergency Department Course and Treatment: Repeat exam patient doing well she will be discharged home. Treatment Plan: Motrin for pain. Follow-up with her primary care physician Dr. Dai Disposition: Discharge Impression: Acute atypical chest pain of uncertain etiology History of prior valve surgery and atrial septal defect This note was generated with [employer] dictation software. It may contain incorrect words, spelling, and punctuation that were not noted in review of the chart prior to signing ED Disposition - Plan for ED Patient: Chief Complaint: Chest Pain Referrals: Bill Dai MD [Primary Care Provider] -
--- NOTE | 2017-09-23 16:28 | ED.DEP ---
ED Disposition - Plan for ED Patient: Disposition: Home or Assisted Living Chief Complaint: Chest Pain Instructions: ED Chest Pain Atypical Unkn Cause Referrals: Bill Dai MD [Primary Care Provider] - As soon as possible Additional Instructions: Call and follow-up your primary care physician soon as possible. Your tests today were unremarkable as was your CAT scan and chest x-ray.
[2017-09-23 16:35] VITALS: BP 150/96; PULSE 56; RESP 20; O2SAT 97
== END 2017-09-23 16:39 | disposition home or self-care (01) ==
PROVIDERS: Emergency Provider Emergency Medicine; Family Provider Family Medicine; PCP Family Medicine
DX: R07.89 Other chest pain (principal); Z87.74 Personal history of (corrected) congenital malformations of heart and circulatory system; Z98.890 Other specified postprocedural states; R79.89 Other specified abnormal findings of blood chemistry; Q23.1 Congenital insufficiency of aortic valve; I34.1 Nonrheumatic mitral (valve) prolapse; Z86.73 Personal history of transient ischemic attack (TIA), and cerebral infarction without residual deficits; Z86.718 Personal history of other venous thrombosis and embolism; Z86.711 Personal history of pulmonary embolism; Z79.899 Other long term (current) drug therapy; Z72.0 Tobacco use
CPT/HCPCS: 71045; 71275; 80048; 84484; 85025; 85379; 93005; 96374; 99284; Q9967; A4216

== ENCOUNTER 2017-09-30 20:35 | Emergency (ER) | payer MEDICAID, SELFPAY ==
[2017-09-30 20:35] VITALS: BP 111/70; PULSE 72; RESP 16; TEMP 36; O2SAT 96; BMI 32.8
--- NOTE | 2017-09-30 21:40 | ED.DCSUM_ITS ---
- ER Visit Summary Date of Service: 09/30/17 Chief Complaint: Back hips and knee pain History of Present Illness: The patient is a 37 F states that yesterday she did 13,000 steps and then went to the. She states she feels like she overdid it as she has pain in the back the hips the knees. States she feels very sore. She states that this is sometimes what happens. She states that when this happened she comes the emergency department for breakthrough pain control. This is her 12th emergency department visit this year. She has no red flag symptoms such as loss of bowel or bladder control muscle weakness or sensation loss fevers rashes. Physical Examination: Afebrile vital signs are stable Gen: Well-nourished well-developed Head: Normocephalic atraumatic Eyes: Perrl EOMI ENT: TMs clear no rhinorrhea moist mucous membranes Neck: Supple no lymphadenopathy no JVD nontender CVS: Regular rate rhythm no murmurs normal S1-S2 Respiratory: No distress clear to auscultation bilaterally chest nontender Abdomen: Soft nontender nondistended normal bowel sounds no masses Back: Paraspinal musculature tenderness to palpation Extremity: Nontender no edema Skin: Normal color no rash Neuro: alert orientated ?3 CN II-XII intact normal strength sensation reflexes Psych: Normal affect normal mood Emergency Department Course and Treatment: Patient was given a shot of Toradol. She will be discharged home. Advised her to fluid hydration and active rest. Impression: 1. Generalized myalgias This note was generated with [employer] dictation software. It may contain incorrect words, spelling, and punctuation that were not noted in review of the chart prior to signing ED Disposition - Plan for ED Patient: Disposition: Home or Assisted Living Chief Complaint: Lower Extremity Injury Instructions: ED Muscle Aching Referrals: Bill Dai MD [Primary Care Provider] - 1 Week if not improving
[2017-09-30] MEDS: Ketorolac 60 MG/2 ML Vial IM (21:48)
[2017-09-30 21:51] VITALS: BP 127/79; PULSE 61; RESP 18; O2SAT 99
[2017-09-30 22:03] VITALS: BP 127/79; PULSE 61; RESP 16; O2SAT 99
--- NOTE | 2017-09-30 22:03 | ED.RN ---
NO REACTION TO INJECTION SITE. THIS RN DISCUSSED DISCHARGE INFORMATION WITH PT, PT STATES SHE UNDERSTANDS DISCHARGE INFORMATION. PT USED WHEELCHAIR FOR DISCHARGE. SON PUSHED THE PT.
== END 2017-09-30 22:05 | disposition home or self-care (01) ==
LOC: ED 21:44
PROVIDERS: Emergency Provider Emergency Medicine; Family Provider Family Medicine; PCP Family Medicine
DX: M79.1 Myalgia (principal); Z86.718 Personal history of other venous thrombosis and embolism; Z86.711 Personal history of pulmonary embolism; Z95.2 Presence of prosthetic heart valve; Z79.899 Other long term (current) drug therapy; Z72.0 Tobacco use
CPT/HCPCS: 96372; 99282

== ENCOUNTER 2017-10-09 20:16 | Emergency (ER) | payer MEDICAID, SELFPAY ==
[2017-10-09 20:16] VITALS: BP 121/82; PULSE 62; RESP 16; TEMP 36.4; O2SAT 100; BMI 33.6
[2017-10-09 20:33] VITALS: O2SAT 100
--- NOTE | 2017-10-09 21:17 | RAD_ITS ---
STUDY: X-RAY - LEFT KNEE REASON FOR EXAM: Female, 37 years old. Trauma TECHNIQUE: 3 view(s) of the knee. COMPARISON: None. FINDINGS: Knee prosthesis is present in anatomic alignment and position. No evidence for acute fracture or dislocation RAD/Knee 3 Views IMPRESSION: Stable appearance to left knee prosthesis Electronically Signed: Jaun Decker MD at 21:52 EDT , Service support ,
--- NOTE | 2017-10-09 21:30 | RAD_ITS ---
STUDY: X-RAY - PELVIS AND LEFT HIP REASON FOR EXAM: Female, 37 years old. Trauma TECHNIQUE: Radiological exam, hip, unilateral, with pelvis when performed; 2 or 3 views. COMPARISON: None. FINDINGS: There is a non-specific bowel gas pattern. Normal visualized soft tissue structures. Normal bilateral iliac wings, sacroiliac joints and visualized sacrum. Normal bilateral superior and inferior pubic rami. Normal pubic symphysis. Normal bilateral ischial tuberosities. Normal visualized femoral head. Normal acetabulum. Normal hip joint. RAD/Hip 2-3 Views with Pelvis IMPRESSION: Normal x-ray examination of the pelvis and hip. Electronically Signed: Jaun Decker MD at 21:53 EDT , Service support ,
--- NOTE | 2017-10-09 22:25 | ED.VISSUMM ---
- ER Visit Summary Date of Service: 10/09/17 Chief Complaint: [Fall] History of Present Illness: The patient is a 37 F [presents the emergency department after sustaining a fall around 11 PM yesterday. Patient states that she was going up some steps to her friend's apartment when she fell backwards injuring her left knee and left hip. Patient denies loss of consciousness although she did hit her head. Patient has been ambulatory. She denies any chest or abdomen pain.] Physical Examination: [HEENT-PERRLA, EOMI. Cranial nerves II through XII grossly intact. TMs clear. Mucous membranes moist. No adenopathy. No C-spine tenderness on palpation with normal active range of motion. Cardiovascular-regular rate and rhythm without murmur or ectopy Lungs-clear to auscultation, chest wall stable without crepitus or subcu emphysema Abdomen-normoactive bowel sounds, soft, nontender, no rebound or rigidity, no peritoneal signs. Extremities-intact ?4, normal range of motion, normal pulses, atraumatic]. Left knee-patient has some tenderness palpation over the lateral aspect of the left knee. Patient has pain with flexion extension of the knee but no obvious effusion noted. The knee has had prior replacement surgery. Ligamentously appears stable but somewhat limited due to pain. Left hip-patient has some mild tenderness with logrolling over the left hip. There is no shortening or external rotation of the extremity. Test Results: [X-rays of the left knee and left hip and pelvis were obtained which were negative for fractures] Emergency Department Course and Treatment: [Patient will be given a knee immobilizer] Treatment Plan: [Patient to use her knee immobilizer. Patient to use her Percocet for pain as needed.] Patient to follow-up with her orthopedic surgeon within the next 5-7 days. Disposition: [Discharged home in stable condition] Impression: [Mechanical fall Left knee sprain-possible internal derangement Left hip contusion] This note was generated with [employer] dictation software. It may contain incorrect words, spelling, and punctuation that were not noted in review of the chart prior to signing ED Disposition - Plan for ED Patient: Chief Complaint: Fall Referrals: Bill Dai MD [Primary Care Provider] -
--- NOTE | 2017-10-09 22:28 | ED.DCSUM_ITS ---
- ER Visit Summary Date of Service: 10/09/17 Chief Complaint: [Fall] History of Present Illness: The patient is a 37 F [presents the emergency department after sustaining a fall around 11 PM yesterday. Patient states that she was going up some steps to her friend's apartment when she fell backwards injuring her left knee and left hip. Patient denies loss of consciousness although she did hit her head. Patient has been ambulatory. She denies any chest or abdomen pain.] Physical Examination: [HEENT-PERRLA, EOMI. Cranial nerves II through XII grossly intact. TMs clear. Mucous membranes moist. No adenopathy. No C- spine tenderness on palpation with normal active range of motion. Cardiovascular-regular rate and rhythm without murmur or ectopy Lungs-clear to auscultation, chest wall stable without crepitus or subcu emphysema Abdomen-normoactive bowel sounds, soft, nontender, no rebound or rigidity, no peritoneal signs. Extremities-intact ?4, normal range of motion, normal pulses, atraumatic]. Left knee-patient has some tenderness palpation over the lateral aspect of the left knee. Patient has pain with flexion extension of the knee but no obvious effusion noted. The knee has had prior replacement surgery. Ligamentously appears stable but somewhat limited due to pain. Left hip-patient has some mild tenderness with logrolling over the left hip. There is no shortening or external rotation of the extremity. Test Results: [X-rays of the left knee and left hip and pelvis were obtained which were negative for fractures] Emergency Department Course and Treatment: [Patient will be given a knee immobilizer] Treatment Plan: [Patient to use her knee immobilizer. Patient to use her Percocet for pain as needed.] Patient to follow-up with her orthopedic surgeon within the next 5-7 days. Disposition: [Discharged home in stable condition] Impression: [Mechanical fall Left knee sprain-possible internal derangement Left hip contusion] This note was generated with [employer] dictation software. It may contain incorrect words, spelling, and punctuation that were not noted in review of the chart prior to signing ED Disposition - Plan for ED Patient: Chief Complaint: Fall Referrals: Bill Dai MD [Primary Care Provider] -
--- NOTE | 2017-10-09 22:28 | ED.DEP ---
ED Disposition - Plan for ED Patient: Chief Complaint: Fall Instructions: ED Mechanical Fall, ED Sprain Knee, ED Contusion Hip Referrals: Bill Dai MD [Primary Care Provider] - Francisco Lyon MD [STAFF PHYSICIAN] - 5-7 Days
[2017-10-09 22:42] VITALS: BP 118/74; PULSE 89; RESP 16; O2SAT 99
== END 2017-10-09 22:43 | disposition home or self-care (01) ==
LOC: ED 21:38
PROVIDERS: Emergency Provider Emergency Medicine; Family Provider Family Medicine; PCP Family Medicine
DX: S83.92XA Sprain of unspecified site of left knee, initial encounter (principal); S70.02XA Contusion of left hip, initial encounter; W10.8XXA Fall (on) (from) other stairs and steps, initial encounter; Y93.01 Activity, walking, marching and hiking; Y92.038 Other place in apartment as the place of occurrence of the external cause; G40.909 Epilepsy, unspecified, not intractable, without status epilepticus; I34.1 Nonrheumatic mitral (valve) prolapse; Q23.1 Congenital insufficiency of aortic valve; Z79.899 Other long term (current) drug therapy; Z72.0 Tobacco use
CPT/HCPCS: 73502; 73562; 99283

== ENCOUNTER 2017-10-22 23:24 | Emergency (ER) | payer MEDICAID, SELFPAY ==
[2017-10-22 23:26] VITALS: BP 109/75; PULSE 62; RESP 18; TEMP 36.2; O2SAT 97; BMI 33.5
--- NOTE | 2017-10-22 23:42 | ED.VISSUMM ---
- ER Visit Summary Date of Service: 10/22/17 Chief Complaint: Neck pain History of Present Illness: The patient is a [address] Dai. She reports that 5 days ago her left leg gave out and she fell and injured her neck. She reports that she has a sharp pain in the right trapezius muscle Zeta 10 with movement 6 out of 10 at rest. She did hit her head. No loss of consciousness. No other injuries. Physical Examination: Vitals: Stable. Afebrile. Neck: No vertebral tenderness. Full ROM without difficulty. Cleared by NEXUS criteria. Return palpation over the right trapezius muscle. No spasm. Back: Mild tenderness palpation over her entire thoracic and lumbar spine. No point tenderness.. General: A&O x 3. NAD. Cardiovascular exam: Regular rate and rhythm, no murmur, rub or gallop. Respiratory exam: Chest nontender. No crepitus. Clear to auscultation bilaterally. No wheezes or stridor. Abdominal exam: Soft, nontender, nondistended, normal bowel sounds. No pain in RUQ or LUQ specifically. No peritoneal signs. Extremity: Atraumatic. No pain with range of motion. Emergency Department Course and Treatment: She was treated with ibuprofen is resting comfortably. Treatment Plan: An OARRS report was obtained which show she had 10 prescription for opiates in the past year. She is also had prescriptions for muscle relaxants and benzodiazepines. This is her 14th visit to the emergency department in 2018. I do not think treating her with an opiate medication is in her best interest. She will be discharged instructed use Tylenol and/or ibuprofen for pain. Follow-up Dr. Dai in 1 week if not improving. Disposition: To home in improved and stable condition. Impression: 1. Fall. 2. Cervical strain. This note was generated with [employer] dictation software. It may contain incorrect words, spelling, and punctuation that were not noted in review of the chart prior to signing ED Disposition - Plan for ED Patient: Disposition: Home or Assisted Living Chief Complaint: Fall Instructions: ED Sprain Strain Neck Referrals: Bill Dai MD [Primary Care Provider] - 1 Week if not improving
[2017-10-22] MEDS: Ibuprofen 600 MG Tablet PO (23:51)
[2017-10-22 23:53] VITALS: O2SAT 96
== END 2017-10-22 23:55 | disposition home or self-care (01) ==
LOC: ED 23:46
PROVIDERS: Emergency Provider Emergency Medicine; Family Provider Family Medicine; PCP Family Medicine
DX: S16.1XXA Strain of muscle, fascia and tendon at neck level, initial encounter (principal); W19.XXXA Unspecified fall, initial encounter; Y93.9 Activity, unspecified; Y92.9 Unspecified place or not applicable; J45.909 Unspecified asthma, uncomplicated; M79.7 Fibromyalgia; Q23.1 Congenital insufficiency of aortic valve; F17.200 Nicotine dependence, unspecified, uncomplicated; Z79.899 Other long term (current) drug therapy
CPT/HCPCS: 99283

== ENCOUNTER 2017-11-03 23:19 | Emergency (ER) | payer MEDICAID, SELFPAY ==
--- NOTE | 2017-11-03 23:19 | DT_ITS ---
This patient was seen during an EMR downtime October 27, 2017 - November 03, 2017. This patient may have a combination of paper and electronic documentation or all paper documentation. All documentation is viewable within the e-chart portion of [employer] for each patient visit.
[2017-11-03 23:20] VITALS: BP 119/79; PULSE 70; RESP 16; TEMP 37.4; O2SAT 98; BMI 33.6
[2017-11-04 00:17] LABS: Absolute Neutrophil Count 5.4 X10^3/uL (2.0-7.7); Basophil# 0.03 X10^3/uL; Basophil% 0.4 % (0-1); Eosinophil# 0.18 X10^3/uL; Eosinophils% 2.1 % (0-5); Hematocrit 38.9 % (37-47); Hemoglobin 12.7 g/dl (12.0-15.0); Lymphocyte % 21.1 % (19-41); Mean Corp Hgb Conc 32.6 g/gl (32-36); Mean Corpuscular Hgb 30.2 pg (27.0-32.0); Mean Corpuscular Volume 92.4 fL (81-99); Mean Platelet Vol. 10.2 fl (6.2-12.0); Monocyte# 1.13 X10^3/uL; Monocyte% 13.3 % (0-10); Neutrophil # 5.36 X10^3/uL (2.7-7.7); Neutrophil % 62.9 % (47-70); Platelet Count 288 K/mm3 (150-450); RBC Distribution Width CV 13.5 % (11.6-14.6); RBC Distribution Width SD 45.1 fl (35.1-43.9); Red Blood Count 4.21 M/mm3 (4.2-5.4); White Blood Count 8.5 K/mm3 (4.4-11.0)
[2017-11-04 00:18] LABS: POSITIVE COUNT NO; POSITIVE DIFFERENTIAL NO; POSITIVE MORPHOLOGY NO
[2017-11-04] MEDS: Ondansetron 4 MG/2 ML Vial IV (00:21)
[2017-11-04] MEDS: Ketorolac 30 MG/ML Syringe IV (00:21)
[2017-11-04] MEDS: 0.9% Normal Saline 1,000 ML 250 ML IV (00:21)
[2017-11-04 00:32] LABS: Pregnancy, Serum, hCG Quali. NEGATIVE Negative (0-9 Nonpreg)
[2017-11-04 00:35] LABS: Mucous, Urine 0 SEEN /hpf (<or=2+)
[2017-11-04 00:37] LABS: Color, Urine Yellow (Yellow); Glucose, Dipstick Normal (Normal); Ketone-Dipstick Negative (Negative); Leukocyte Esterase-Dipstick 500 /ul (Negative); Nitrite-Dipstick Negative (Negative); Occult Blood-Urine 25 /ul (Negative); Protein-Dipstick 15 mg/dl (Negative); Urine Bilirubin Dipstick Negative (Negative); Urine Clarity Sl. Cloudy (Clear); Urine Urobilinogen Normal (Normal); Urine pH 6.5 (5.0 - 8.0)
[2017-11-04 00:44] LABS: Bacteria RARE /hpf (None Seen); Red Blood Cells-Urine 0-5 SEEN /hpf (0-5); Squamous Epithelial Cells - UA 10-25 SEEN /hpf (5-10); White Blood Cells 50-100 SEEN /hpf (0-5)
--- NOTE | 2017-11-04 00:54 | NURSING ---
DR. GONGORA MADE AWARE OF PATIENT'S PAIN NOT DECREASING FROM IV TORADOL. HE IS NOT GOING TO GIVE HER ANYTHING ELSE.
--- NOTE | 2017-11-04 00:55 | ED.VISSUMM ---
- ER Visit Summary Date of Service: 11/04/17 Chief Complaint: Patient complains of acute left sided lower abdominal pain that started 4 hours prior to presentation. History of Present Illness: The patient is a 37 F She states it is crampy achy and sharp. It is presently an 8 out of 10. She states walking makes it worse. She denies any pain with change in position or coughing. She denies any history of trauma. She denies any alleviating factors or precipitating factors. She reports history of fibromyalgia, ovarian cysts, fibroids and kidney stones. She denies any fever, chills or night sweats. She does report nausea without vomiting or diarrhea. She denies dysuria, frequency, urgency or hematuria. She is on double shots and states she has not had a menstrual period in a long time. She does report chronic back pain. She denies flank pain. Review of systems is otherwise negative. There is a past history of COPD, endometriosis, fibroids, renal calculi, seizure disorder and DVT. She had a similar presentation was found to have a UTI several months ago. She also reports history of fibromyalgia. Physical Examination: Vital signs are normal. There was no eye contact during history or physical examination. HEENT exam is unremarkable. Insert cardiopulmonary exam abdominal exam is remarkable for pain to light tactile stimulus of the left lower quadrant. Of note when she was asked to scoot up on the cot she grimaces as if she was in pain. However, when asked to local his her back pain she moved freely without grimacing or hesitation. Test Results: CBC is normal. Serum test is negative. UA is contaminated. Of note there are no bacteria noted. Emergency Department Course and Treatment: To evaluate patient's left lower quadrant pain in light of her history of renal calculi UTI and history of diverticulitis CBC, UA and points tests were obtained. Since her exam indicates that she has pain out of proportion to tactile stimuli and she has no guarding rebound tenderness and a negative UA plan is to discharge to home. Treatment Plan: Discharge to home with appropriate home-going instructions. Disposition: Discharged to home, stable Impression: Left lower quadrant abdominal pain unknown etiology History of uterine fibroids History of endometriosis History of renal calculi History of fibromyalgia This note was generated with [employer] software. It may contain incorrect words, spelling, and punctuation that were not noted in review of the chart prior to signing ED Disposition - Plan for ED Patient: Disposition: Home or Assisted Living Chief Complaint: Abd Pain Instructions: ED Abdominal Pain Unkn Cause Referrals: Bill Dai MD [Primary Care Provider] - As Needed
[2017-11-04 01:14] VITALS: BP 135/89; PULSE 66; RESP 18; O2SAT 97
--- NOTE | 2017-11-17 16:50 | CM.ED ---
Social Work Note EDCP completed and approved. Mailed out via certified mail this date. Tracking number: [id number] Sarah Najera MSW, [employer]
== END 2017-11-04 01:17 | disposition home or self-care (01) ==
PROVIDERS: Emergency Provider Emergency Medicine; Family Provider Family Medicine; PCP Family Medicine
DX: R10.32 Left lower quadrant pain (principal); M79.7 Fibromyalgia; J44.9 Chronic obstructive pulmonary disease, unspecified; G40.909 Epilepsy, unspecified, not intractable, without status epilepticus; Z86.718 Personal history of other venous thrombosis and embolism; Z87.442 Personal history of urinary calculi
CPT/HCPCS: 81001; 84703; 85025; 96361; 96374; 96375; 99283; A4216; J2405

== ENCOUNTER 2017-11-11 01:20 | Emergency (ER) | payer MEDICAID, SELFPAY ==
--- NOTE | 2017-11-11 01:22 | ED.RN ---
CALLED FOR EKG PER RN REQUEST, PULLED OLD EKG'S FOR
--- NOTE | 2017-11-11 02:24 | CT_ITS ---
STUDY: CTA CHEST REASON FOR EXAM: Female, 37 years old. Chest pain. History of leiomyosarcoma. RADIATION DOSAGE (If Supplied By Facility): CTDIvol = ( 16.89 ) mGy, DLP = ( 556.42 ) mGycm TECHNIQUE: The examination was performed with the intravenous administration of 100ML ml of Isovue 370 contrast material. Post-processing of the angiographic images was performed, with multiplanar reformation and 3D reconstruction. Individualized dose optimization techniques were used for this CT. COMPARISON: September 23, 2017. FINDINGS: Normal enhancement of the main pulmonary artery and right and left pulmonary arteries. Normal enhancement of the bilateral peripheral pulmonary arteries. There is no demonstrated pulmonary embolism. Normal thoracic aorta and visualized great vessels. There is no demonstrated aortic dissection. Normal heart and pericardium. Normal mediastinum. Normal hilar regions. Normal visualized trachea and bronchi. The lungs are well expanded. Normal pulmonary parenchyma. Normal pleura. Normal chest wall structures. Normal osseous structures. Normal visualized upper abdomen. CT/CTA Chest W/WO Contrast IMPRESSION: Normal CTA chest examination, without a demonstrated pulmonary embolism or arterial dissection. Electronically Signed: Francisco You MD at 5:37 EDT , Service support ,
--- NOTE | 2017-11-11 02:24 | EKG12_ITS ---
Test Reason : CP Blood Pressure : / mmHG Vent. Rate : 062 BPM Atrial Rate : 062 BPM P-R Int : 138 ms QRS Dur : 082 ms QT Int : 474 ms P-R-T Axes : 034 023 065 degrees QTc Int : 481 ms Normal sinus rhythm Prolonged QT Abnormal ECG Confirmed by CIERA ADAMS, MEENA ([id number]), story editor OANH AGARWAL ([id number]) on 11/13/2017 8:57:35 AM Referred By: NEEL Confirmed By:MEENA VANG MD
[2017-11-11 02:30] VITALS: BP 164/78; PULSE 102; RESP 20; TEMP 36.7; O2SAT 98; BMI 39.1
[2017-11-11 03:19] VITALS: PULSE 58; RESP 13; O2SAT 98
[2017-11-11] MEDS: 0.9% Normal Saline 1,000 ML 1000 ML IV (03:24)
[2017-11-11] MEDS: Morphine 4 MG/ML Syringe IV ×2 (03:24→05:10)
[2017-11-11 03:35] LABS: Absolute Lymphocyte Count 1.95 X10^3/ul (0.83-4.51); Absolute Neutrophil Count 4.5 X10^3/uL (2.0-7.7); Basophil# 0.03 X10^3/uL; Basophil% 0.4 % (0-1); Eosinophil# 0.15 X10^3/uL; Hematocrit 35.5 % (37-47); Hemoglobin 11.8 g/dl (12.0-15.0); International Normalized Ratio 1.1; Lymphocyte # 1.95 X10^3/ul (4.0); Lymphocyte % 25.6 % (19-41); Mean Corp Hgb Conc 33.2 g/gl (32-36); Mean Corpuscular Hgb 31.1 pg (27.0-32.0); Mean Corpuscular Volume 93.7 fL (81-99); Mean Platelet Vol. 10.2 fl (6.2-12.0); Monocyte# 0.94 X10^3/uL; Monocyte% 12.4 % (0-10); Neutrophil # 4.53 X10^3/uL (2.7-7.7); Neutrophil % 59.5 % (47-70); POSITIVE COUNT NO; POSITIVE DIFFERENTIAL NO; POSITIVE MORPHOLOGY NO; Partial Thromboplast Time 24.7 Seconds (24.1-36.2); Platelet Count 283 K/mm3 (150-450); Prothrombin Time (Protime)PT. 13.7 SECONDS (11.7-14.9); RBC Distribution Width CV 13.4 % (11.6-14.6); RBC Distribution Width SD 44.2 fl (35.1-43.9); Red Blood Count 3.79 M/mm3 (4.2-5.4); White Blood Count 7.6 K/mm3 (4.4-11.0)
[2017-11-11 03:41] LABS: BUN 19 mg/dL (7-18); Creatinine, Serum 1.22 mg/dL (0.55-1.02); Glucose 100 mg/dL (74-106)
[2017-11-11 03:42] LABS: Anion Gap 10 (5-15); BUN/Creat Ratio 15.6 RATIO (10-20); Calcium,Total 8.6 mg/dL (8.5-10.1); Chloride 108 mmol/L (98-107); EST Glomerular Filtration Rate 52 mL/min (>60); Est Glom Filt Rate - Afr Amer 63 mL/min (>60); Potassium 3.8 mmol/L (3.5-5.1); Pregnancy, Serum, hCG Quali. NEGATIVE Negative (0-9 Nonpreg); Sodium Level 143 mmol/L (136-145)
[2017-11-11 05:09] VITALS: BP 109/71; PULSE 59; RESP 16; O2SAT 97
--- NOTE | 2017-11-11 05:53 | ED.DCSUM_ITS ---
- ER Visit Summary Date of Service: 11/11/17 Chief Complaint: Pain History of Present Illness: The patient is a 37 F with chest pain that started around 12:30 AM. The pain is over her left chest and worse with breathing. She had a brief syncopal episode. She does have a history of similar symptoms with PE. She also has a history of seizures but denies any seizure activity. She is being monitored and evaluated for PVCs. She had some associated diaphoresis but no other symptoms. Does not take blood thinners currently. Physical Examination: Vital signs unremarkable. Patient is afebrile. No acute distress. Heart regular rate and rhythm. Lungs clear throughout. Extremities soft and nontender. Skin appears normal without diaphoresis or pallor. Test Results: EKG showed sinus rhythm at a rate of 62. QTc 481. No sign of acute ischemia or infarction. Hemo-globin stable at 11.8. BUN 19 and creatinine 1.22. Coags normal. Troponin and test normal. CT abdomen was unremarkable. No evidence of PE. Emergency Department Course and Treatment: Patient was treated with morphine and fluids while awaiting results. Her story was concerning for PE. Workup was unremarkable. Nothing to suggest ACS. No indication for admission. I believe she is appropriate for an outpatient follow-up. She will be discharged. Treatment Plan: Above Disposition: Discharged Impression: 1. Chest wall pain This note was generated with [employer] dictation software. It may contain incorrect words, spelling, and punctuation that were not noted in review of the chart prior to signing ED Disposition - Plan for ED Patient: Chief Complaint: Chest Pain Referrals: Bill Dai MD [Primary Care Provider] -
--- NOTE | 2017-11-11 05:53 | ED.DEP ---
ED Disposition - Plan for ED Patient: Chief Complaint: Chest Pain Instructions: ED Chest Pain [facility] Prescriptions: Ibuprofen [Motrin] 800 mg PO TID PRN PRN #20 tab PRN Reason: Pain Referrals: Bill Dai MD [Primary Care Provider] -
[2017-11-11 06:23] VITALS: BP 146/87; PULSE 78; RESP 18; O2SAT 97
== END 2017-11-11 06:27 | disposition home or self-care (01) ==
LOC: ED 02:24
PROVIDERS: Emergency Provider Emergency Medicine; Family Provider Family Medicine; PCP Family Medicine
DX: R07.89 Other chest pain (principal); G40.909 Epilepsy, unspecified, not intractable, without status epilepticus; I49.3 Ventricular premature depolarization; Z86.711 Personal history of pulmonary embolism; Z79.899 Other long term (current) drug therapy
CPT/HCPCS: 71275; 80048; 84484; 84703; 85025; 85610; 85730; 93005; 96361; 96374; 99285; J7030; Q9967; A4216

== ENCOUNTER 2017-11-12 18:57 | Emergency (ER) | payer MEDICAID, SELFPAY ==
[2017-11-12 18:58] VITALS: BP 93/61; PULSE 61; RESP 16; TEMP 36.3; O2SAT 97; BMI 32.8
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
[2017-11-12] MEDS: Ketorolac 60 MG/2 ML Vial IM (20:25)
[2017-11-12 21:37] VITALS: BP 120/90; PULSE 63; RESP 16; O2SAT 98
== END 2017-11-12 21:38 | disposition home or self-care (01) ==
PROVIDERS: Emergency Provider Emergency Medicine; Family Provider Family Medicine; PCP Family Medicine
DX: M54.5 Low back pain (principal); Z79.899 Other long term (current) drug therapy; Z72.0 Tobacco use
CPT/HCPCS: 96372; 99282

== ENCOUNTER 2017-11-18 22:21 | Emergency (ER) | payer MEDICAID, SELFPAY ==
[2017-11-18 22:22] VITALS: BP 92/60; PULSE 82; RESP 14; TEMP 37.2; O2SAT 96; BMI 33.6
--- NOTE | 2017-11-18 23:31 | ED.VISSUMM ---
- ER Visit Summary Date of Service: 11/18/17 Chief Complaint: Back pain History of Present Illness: The patient is a [address] Hills and Dr. Dai. She reports that she has back pain that is chronic, but worsened 2 weeks ago. It is a throbbing pain that is 10 out of 10 at worst 9-10 currently. Is worsened by movement. She relieved partially by heating pad, oxycodone, and prednisone. She reports that it radiates to her left buttock. She denies any numbness or weakness in her legs. She reports that she did have incontinence of bowel and urine earlier today. She denies any fever, chills, or abdominal pain. Physical Examination: Vitals: Stable. Afebrile. General: A&O x 3. NAD. Cardiovascular exam: Regular rate and rhythm, no murmur, rub or gallop. Respiratory exam: Clear to auscultation bilaterally. No wheezes or stridor. Abdominal exam: Soft, nontender, nondistended, normal bowel sounds. No peritoneal signs. Back: Diffuse moderate tenderness to palpation over the lumbar spine and the paraspinous musculature in the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. No point tenderness. Negative straight leg bilaterally. 5/5 DF, PF, EHL bilaterally. Normal sensation to light touch throughout. Extremity: No clubbing, cyanosis, or edema. Emergency Department Course and Treatment: Patient refused a rectal exam and post void residual catheterization. She was given a dose of Toradol IM. I had a blunt discussion with the patient about pain control and intoxicating medications. This is her 18th visit to the emergency department this year. Her OARS report shows that she has had 10 prescriptions for opiates in the past year. She currently has an active prescription for Percocet. 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 Disposition: To home in improved and stable condition. Impression: 1. Acute on chronic back pain. This note was generated with [employer] dictation software. It may contain incorrect words, spelling, and punctuation that were not noted in review of the chart prior to signing ED Disposition - Plan for ED Patient: Disposition: Home or Assisted Living Chief Complaint: Back Instructions: ED Neck Back Pain General Referrals: Satya Elizabeth [NON-STAFF] - As soon as possible
--- NOTE | 2017-11-18 23:37 | ED.DCSUM_ITS ---
- ER Visit Summary Date of Service: 11/18/17 Chief Complaint: Back pain History of Present Illness: The patient is a [address] Hills and Dr. Dai. She reports that she has back pain that is chronic, but worsened 2 weeks ago. It is a throbbing pain that is 10 out of 10 at worst 9-10 currently. Is worsened by movement. She relieved partially by heating pad, oxycodone, and prednisone. She reports that it radiates to her left buttock. She denies any numbness or weakness in her legs. She reports that she did have incontinence of bowel and urine earlier today. She denies any fever, chills, or abdominal pain. Physical Examination: Vitals: Stable. Afebrile. General: A&O x 3. NAD. Cardiovascular exam: Regular rate and rhythm, no murmur, rub or gallop. Respiratory exam: Clear to auscultation bilaterally. No wheezes or stridor. Abdominal exam: Soft, nontender, nondistended, normal bowel sounds. No peritoneal signs. Back: Diffuse moderate tenderness to palpation over the lumbar spine and the paraspinous musculature in the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. No point tenderness. Negative straight leg bilaterally. 5/5 DF, PF, EHL bilaterally. Normal sensation to light touch throughout. Extremity: No clubbing, cyanosis, or edema. Emergency Department Course and Treatment: Patient refused a rectal exam and post void residual catheterization. She was given a dose of Toradol IM. I had a blunt discussion with the patient about pain control and intoxicating medications. This is her 18th visit to the emergency department this year. Her OARS report shows that she has had 10 prescriptions for opiates in the past year. She currently has an active prescription for Percocet. Treatment Plan: Patient will be discharged instructions to follow-up with her roller painter as soon as possible. Disposition: To home in improved and stable condition. Impression: 1. Acute on chronic back pain. This note was generated with [employer] dictation software. It may contain incorrect words, spelling, and punctuation that were not noted in review of the chart prior to signing ED Disposition - Plan for ED Patient: Disposition: Home or Assisted Living Chief Complaint: Back Instructions: ED Neck Back Pain General Referrals: Satya Elizabeth [NON-STAFF] - As soon as possible
--- NOTE | 2017-11-18 23:48 | NURSING ---
THIS RN IN ROOM WHILE DR. WHEELER DISCUSSED PLAN OF CARE WITH PATIENT. MD WAS PROFESSIONALLY FIRM WITH PATIENT AND HER CHRONIC PAIN ISSUES. PT STATES THAT SHE IS OKAY WITH THE PLAN OF CARE BEING A TORADOL SHOT FOR PAIN TONIGHT AND BEING DISCHARGED.
[2017-11-18 23:52] VITALS: BP 122/70; PULSE 67; RESP 15; O2SAT 94
[2017-11-18] MEDS: Ketorolac 60 MG/2 ML Vial IM (23:53)
--- NOTE | 2017-11-19 00:10 | ED.RN ---
pt given verbal and written discharge instructions and pt verbalizes understanding and denies any further questions. this rn observed pt stand and pivot into her wheelchair. pt son wheeled pt out of dept.
== END 2017-11-19 00:11 | disposition home or self-care (01) ==
LOC: ED 23:24
PROVIDERS: Emergency Provider Emergency Medicine; Family Provider Family Medicine; PCP Family Medicine
DX: M54.5 Low back pain (principal); G89.29 Other chronic pain; E78.00 Pure hypercholesterolemia, unspecified; J45.909 Unspecified asthma, uncomplicated; M79.7 Fibromyalgia; I34.1 Nonrheumatic mitral (valve) prolapse; Q23.1 Congenital insufficiency of aortic valve; Z79.899 Other long term (current) drug therapy; Z86.73 Personal history of transient ischemic attack (TIA), and cerebral infarction without residual deficits; Z72.0 Tobacco use
CPT/HCPCS: 96372; 99282

== ENCOUNTER 2017-11-24 01:31 | Emergency (ER) | payer MEDICAID, SELFPAY ==
[2017-11-24 01:33] VITALS: BP 115/61; PULSE 74; RESP 16; TEMP 36.8; O2SAT 98; BMI 33.6
--- NOTE | 2017-11-24 02:07 | ED.VISSUMM ---
- ER Visit Summary Date of Service: 11/24/17 Chief Complaint: Asthma flare History of Present Illness: The patient is a 37 F history of asthma, mitral valve prolapse, prior DVT and PEs. Patient states that she started having wheezing last 3 days with nonproductive cough. Denies fever. Denies chest pain. Denies hemoptysis. States this feels like 1 of her prior asthma flares. She is currently on prednisone taper. Physical Examination: 37-year-old female vital signs are stable afebrile on 4 L 98%. Squad states she was 98% on room air at home. No hypoxia. H EENT exam unremarkable. Neck nontender no JVD. No lymphadenopathy. Lungs expiratory wheezes throughout both sides. Equal symmetrical. No rhonchi. No rales. Heart regular rhythm rate about 80 no murmur. Chest wall nontender. No subcu air. Abdomen soft nontender. Normal bowel sounds. No peritoneal signs. Moving all 4 extremities. Neurovascular intact. Calves nontender without edema or cords. Back exam nontender. Neurologically awake and alert with no focal motor deficits. Test Results: None Emergency Department Course and Treatment: Treated with p.o. prednisone and DuoNeb and albuterol aerosols. Treatment Plan: Repeat exam wheezing is much improved. She has good air movement. She will be discharged home. Disposition: Discharge Impression: Dyspnea secondary to acute exacerbation of asthma Tobacco abuse This note was generated with [employer] dictation software. It may contain incorrect words, spelling, and punctuation that were not noted in review of the chart prior to signing ED Disposition - Plan for ED Patient: Chief Complaint: Shortness of Breath Referrals: Bill Dai MD [Primary Care Provider] -
[2017-11-24 02:08] VITALS: O2SAT 96
--- NOTE | 2017-11-24 02:09 | ED.DEP ---
ED Disposition - Plan for ED Patient: Disposition: Home or Assisted Living Chief Complaint: Shortness of Breath Instructions: ED Bronchitis Asthmatic Prescriptions: Prednisone [Deltasone] 40 mg PO DAILY 5 Days tab Referrals: Bill Dai MD [Primary Care Provider] - 3-5 Days if not improving Additional Instructions: Absolutely must stop smoking. Prednisone 40 mg a day till gone. Stop your taper and just use 40 mg a day for the next 5 days. Follow-up with primary care physician or return to ER feeling a lot worse.
[2017-11-24] MEDS: predniSONE 20 MG Tablet 40 MG PO (02:13)
[2017-11-24 02:18] VITALS: PULSE 68; RESP 18
[2017-11-24] MEDS: Ipratropium/Albuterol Sulfate 3 ML AMPUL.NEB INHALATION (02:18)
[2017-11-24] MEDS: Albuterol 2.5 MG/3 ML VIAL.NEB. INHALATION ×2 (02:20→02:33)
[2017-11-24 02:33] VITALS: PULSE 77; RESP 18
[2017-11-24 04:05] VITALS: PULSE 70; RESP 18; O2SAT 98
== END 2017-11-24 04:05 | disposition home or self-care (01) ==
PROVIDERS: Emergency Provider Emergency Medicine; Family Provider Family Medicine; PCP Family Medicine
DX: J45.901 Unspecified asthma with (acute) exacerbation (principal); F17.200 Nicotine dependence, unspecified, uncomplicated; Z79.899 Other long term (current) drug therapy
CPT/HCPCS: 94640; 99284

== ENCOUNTER 2017-12-25 15:20 | Emergency (ER) | payer MEDICAID, SELFPAY ==
[2017-12-25 15:20] VITALS: BP 101/65; PULSE 70; RESP 18; TEMP 36.3; O2SAT 97; BMI 32.8
--- NOTE | 2017-12-25 16:22 | RAD_ITS ---
STUDY: X-RAY - LEFT ANKLE REASON FOR EXAM: Female, 37 years old. Fell through steps. Lateral lower leg pain. TECHNIQUE: 3 view(s) of the ankle. COMPARISON: Left tibia-fibula, December 25, 2017. Left foot, December 25, 2014. FINDINGS: Normal visualized distal tibia and fibula. Normal medial and lateral malleoli. Normal tibiotalar articulation and ankle mortise. Normal visualized talus and calcaneus. The visualized subtalar, talonavicular, calcaneocuboid and tarsal articulations are normal. The soft tissue structures are unremarkable. RAD/Ankle min 3 Views IMPRESSION: No acute fracture or dislocation. Electronically Signed: Harris Ochoa DO at 17:46 EDT Tel [phone], Service support ,
--- NOTE | 2017-12-25 16:22 | RAD_ITS ---
STUDY: X-RAY - LEFT TIBIA AND FIBULA REASON FOR EXAM: Female, 37 years old. Fell through steps. Lateral pain. TECHNIQUE: 2 view(s) of the tibia and fibula were obtained. COMPARISON: Ankle, December 30, 2017. Left knee, October 09, 2017. FINDINGS: Normal visualized tibia. Normal visualized fibula. There is a right artificial knee which appears intact and unchanged from prior study. The ankle appears intact. The soft tissue structures are unremarkable. RAD/Tibia & Fibula 2 Views IMPRESSION: Intact left total knee arthroplasty. The lower leg is otherwise unremarkable. Electronically Signed: Harris Ochoa DO at 17:44 EDT Tel [phone], Service support ,
--- NOTE | 2017-12-25 16:51 | ED.DCSUM_ITS ---
- ER Visit Summary Date of Service: 12/25/17 Chief Complaint: Left lower extremity pain History of Present Illness: The patient is a 37 F presenting with left lower extremity pain. Patient states that she missed a step going down the steps and fell injuring her left lower extremity. She has had painful ambulation since. She denies knee or ankle pain. Pain is in the lateral left lower extremity. She did not hit her head or lose consciousness. No other injuries. Physical Examination: Vitals are stable. Patient is afebrile. Alert no acute distress. HEENT exam is unremarkable. Neck is supple. Lungs are clear and equal bilaterally. Heart is regular rate and rhythm. Abdomen is soft nontender nondistended. Extremities left lateral lower extremity tenderness with no swelling or deformity Skin is warm and dry. No focal neurologic deficit. Remainder of exam is unremarkable. Emergency Department Course and Treatment: Left tib-fib x-ray shows no acute process, left ankle x-ray shows no acute process. Patient is advised to ice and elevate. Advised use Tylenol for pain. Advised to follow-up with primary care physician. Advised return ED if worsening complaints. Disposition: Discharge home Impression: Left lower extremity injury This note was generated with [employer] dictation software. It may contain incorrect words, spelling, and punctuation that were not noted in review of the chart prior to signing ED Disposition - Plan for ED Patient: Disposition: Home or Assisted Living Chief Complaint: Lower Extremity Injury Instructions: ED Contusion Lower Ext Referrals: Bill Dai MD [Primary Care Provider] -
--- NOTE | 2017-12-25 17:55 | ED.DEP ---
ED Disposition - Plan for ED Patient: Chief Complaint: Lower Extremity Injury Instructions: ED Contusion Lower Ext Referrals: Bill Dai MD [Primary Care Provider] -
== END 2017-12-25 18:06 | disposition home or self-care (01) ==
PROVIDERS: Emergency Provider Emergency Medicine; Family Provider Family Medicine; PCP Family Medicine
DX: S80.12XA Contusion of left lower leg, initial encounter (principal); W10.9XXA Fall (on) (from) unspecified stairs and steps, initial encounter; Y93.01 Activity, walking, marching and hiking; Y92.9 Unspecified place or not applicable; I34.1 Nonrheumatic mitral (valve) prolapse; G40.909 Epilepsy, unspecified, not intractable, without status epilepticus; M79.7 Fibromyalgia; Z86.73 Personal history of transient ischemic attack (TIA), and cerebral infarction without residual deficits; Z79.899 Other long term (current) drug therapy; Z72.0 Tobacco use
CPT/HCPCS: 73590; 73610; 99282

== ENCOUNTER 2018-02-23 17:50 | Emergency (ER) | payer MEDICAID, SELFPAY ==
[2018-02-23 17:51] VITALS: BP 131/95; PULSE 82; RESP 18; TEMP 36.4; O2SAT 96; BMI 33.6
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
[2018-02-23 18:54] LABS: Bacteria 0 SEEN /hpf (None Seen); Mucous, Urine 0 SEEN /hpf (<or=2+); Red Blood Cells-Urine 0 SEEN /hpf (0-5)
[2018-02-23] MEDS: 0.9% Normal Saline 1,000 ML 1000 ML IV (19:02)
[2018-02-23] MEDS: Ondansetron 4 MG/2 ML Vial IV (19:02)
[2018-02-23] MEDS: Morphine 4 MG/ML Syringe IV ×2 (19:03→20:25)
[2018-02-23 19:04] LABS: Color, Urine Yellow (Yellow); Glucose, Dipstick Normal (Normal); Ketone-Dipstick Negative (Negative); Leukocyte Esterase-Dipstick Negative /ul (Negative); Nitrite-Dipstick Negative (Negative); Occult Blood-Urine Negative /ul (Negative); Protein-Dipstick Negative (Negative); Specific Gravity, Urine 1.005 (1.002-1.030); Urine Bilirubin Dipstick Negative (Negative); Urine Clarity Sl. Cloudy (Clear); Urine Urobilinogen Normal (Normal)
[2018-02-23 19:06] LABS: Absolute Lymphocyte Count 2.22 X10^3/ul (0.83-4.51); Absolute Neutrophil Count 5.5 X10^3/uL (2.0-7.7); Basophil# 0.02 X10^3/uL; Basophil% 0.2 % (0-1); Eosinophil# 0.17 X10^3/uL; Hematocrit 40.9 % (37-47); Hemoglobin 13.6 g/dl (12.0-15.0); Lymphocyte # 2.22 X10^3/ul (4.0); Lymphocyte % 25.6 % (19-41); Mean Corp Hgb Conc 33.3 g/gl (32-36); Mean Corpuscular Hgb 31.1 pg (27.0-32.0); Mean Corpuscular Volume 93.6 fL (81-99); Mean Platelet Vol. 10.2 fl (6.2-12.0); Monocyte% 9.2 % (0-10); Neutrophil # 5.45 X10^3/uL (2.7-7.7); Neutrophil % 62.9 % (47-70); Platelet Count 318 K/mm3 (150-450); RBC Distribution Width CV 14.4 % (11.6-14.6); Red Blood Count 4.37 M/mm3 (4.2-5.4); White Blood Count 8.7 K/mm3 (4.4-11.0)
[2018-02-23 19:08] LABS: POSITIVE COUNT NO; POSITIVE DIFFERENTIAL NO; POSITIVE MORPHOLOGY NO
[2018-02-23 19:09] LABS: Internal QC Validated? YES +Cl - CLEAR BKGD; Pregnancy, Urine Negative Negative
[2018-02-23 19:13] LABS: Squamous Epithelial Cells - UA 0-5 SEEN /hpf (5-10); White Blood Cells 0-5 SEEN /hpf (0-5)
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
[2018-02-23 19:20] LABS: ALB/GLOB Ratio 1.1 RATIO (0.9-2.4); AST(SGOT) 21 U/L (15-37); Alanine Aminotransfer ALT/SGPT 26 U/L (13-56); Albumin, Serum 4.1 g/dL (3.2-5.0); Alkaline Phosphatase 53 U/L (45-117); Anion Gap 12 (5-15); BUN 18 mg/dL (7-18); BUN/Creat Ratio 14.5 RATIO (10-20); Calcium,Total 8.9 mg/dL (8.5-10.1); Chloride 108 mmol/L (98-107); Creatinine, Serum 1.24 mg/dL (0.55-1.02); EST Glomerular Filtration Rate 51 mL/min (>60); Est Glom Filt Rate - Afr Amer 62 mL/min (>60); Estimated Creatinine Clearance 50.39 ml/min; Globulin 3.6 g/dL (2.2-4.2); Glucose 77 mg/dL (74-106); Protein, Total 7.7 g/dL (6.4-8.2); Sodium Level 140 mmol/L (136-145)
[2018-02-23 22:08] VITALS: BP 171/89; PULSE 69; RESP 18; O2SAT 99
== END 2018-02-23 22:09 | disposition home or self-care (01) ==
PROVIDERS: Emergency Provider Emergency Medicine; Family Provider Family Medicine; PCP Family Medicine
DX: R10.31 Right lower quadrant pain (principal); K92.1 Melena; V89.2XXA Person injured in unspecified motor-vehicle accident, traffic, initial encounter; I10 Essential (primary) hypertension; M79.7 Fibromyalgia; M19.90 Unspecified osteoarthritis, unspecified site; J45.998 Other asthma; F41.9 Anxiety disorder, unspecified; F60.3 Borderline personality disorder; F17.200 Nicotine dependence, unspecified, uncomplicated; Z79.899 Other long term (current) drug therapy
CPT/HCPCS: 74177; 80053; 81001; 81025; 85025; 96361; 96374; 96375; 96376; 99283; J7030; Q9967; A4216; J2405

== ENCOUNTER 2018-03-05 11:49 | Emergency (ER) | payer MEDICAID, SELFPAY ==
[2018-03-05 11:51] VITALS: BP 144/93; PULSE 71; RESP 18; TEMP 36.1; O2SAT 96; BMI 34.0
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
[2018-03-05] MEDS: Ondansetron ODT 4 MG Tablet PO (13:45)
[2018-03-05 14:00] VITALS: BP 156/99; PULSE 62; RESP 16
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
[2018-03-05] MEDS: Acetaminophen 500 MG Tablet 1000 MG PO (16:08)
--- NOTE | 2018-03-05 16:19 | ED.VISSUMM ---
- ER Visit Summary Date of Service: 03/05/18 Chief Complaint: Head injury History of Present Illness: The patient is a 37 F who states that earlier today she slipped on a rug falling head first into a brick wall. This happened approximately 3-1/2 hours before examination. Nausea but no vomiting. Continued headache as well as neck pain. History of fibromyalgia and anxiety as well as ARDS pulmonary hypertension migraines. She has had aortic valve repair bilateral knee replacements. Physical Examination: Afebrile vital signs stable Gen: Well-nourished well-developed Head: Normocephalic atraumatic Eyes: Perrl EOMI ENT: TMs clear no rhinorrhea moist mucous membranes Neck: Supple no lymphadenopathy no JVD tender palpation of the paraspinal musculature as well as in the midline CVS: Regular rate rhythm no murmurs normal S1-S2 Respiratory: No distress clear to auscultation bilaterally chest nontender Abdomen: Soft nontender nondistended normal bowel sounds no masses Back: Nontender Extremity: Nontender no edema Skin: Normal color no rash Neuro: alert orientated ?3 CN II-XII intact normal strength sensation reflexes gait cerebellar Psych: Normal affect normal mood Test Results: Cervical spine x-rays did not demonstrate any obvious fracture but it was recommended to obtain CT scan. Head CT and cervical spine CT were negative. Emergency Department Course and Treatment: Patient received Tylenol and Zofran. She will be discharged home with supportive care. Impression: 1. Head injury 2. Cervical strain This note was generated with [employer] dictation software. It may contain incorrect words, spelling, and punctuation that were not noted in review of the chart prior to signing ED Disposition - Plan for ED Patient: Disposition: Home or Assisted Living Chief Complaint: Fall Instructions: ED Head Injury Closed Prescriptions: Ondansetron [Zofran Odt] 4 mg PO Q6H PRN PRN #10 tab PRN Reason: Nausea Referrals: Bill Dai MD [Primary Care Provider] - 1 Week
--- NOTE | 2018-03-05 16:24 | ED.DCSUM_ITS ---
- ER Visit Summary Date of Service: 03/05/18 Chief Complaint: Head injury History of Present Illness: The patient is a 37 F who states that earlier today she slipped on a rug falling head first into a brick wall. This happened approximately 3-1/2 hours before examination. Nausea but no vomiting. Continue d headache as well as neck pain. History of fibromyalgia and anxiety as well as ARDS pulmonary hypertension migraines. She has had aortic valve repair bilateral knee replacements. Physical Examination: Afebrile vital signs stable Gen: Well-nourished well-developed Head: Normocephalic atraumatic Eyes: Perrl EOMI ENT: TMs clear no rhinorrhea moist mucous membranes Neck: Supple no lymphadenopathy no JVD tender palpation of the paraspinal musculature as well as in the midline CVS: Regular rate rhythm no murmurs normal S1-S2 Respiratory: No distress clear to auscultation bilaterally chest nontender Abdomen: Soft nontender nondistended normal bowel sounds no masses Back: Nontender Extremity: Nontender no edema Skin: Normal color no rash Neuro: alert orientated ?3 CN II-XII intact normal strength sensation reflexes gait cerebellar Psych: Normal affect normal mood Test Results: Cervical spine x-rays did not demonstrate any obvious fracture but it was recommended to obtain CT scan. Head CT and cervical spine CT were negative. Emergency Department Course and Treatment: Patient received Tylenol and Zofran. She will be discharged home with supportive care. Impression: 1. Head injury 2. Cervical strain This note was generated with [employer] dictation software. It may contain incorrect words, spelling, and punctuation that were not noted in review of the chart prior to signing ED Disposition - Plan for ED Patient: Disposition: Home or Assisted Living Chief Complaint: Fall Instructions: ED Head Injury Closed Prescriptions: Ondansetron [Zofran Odt] 4 mg PO Q6H PRN PRN #10 tab PRN Reason: Nausea Referrals: Bill Dai MD [Primary Care Provider] - 1 Week
== END 2018-03-05 16:40 | disposition home or self-care (01) ==
PROVIDERS: Emergency Provider Emergency Medicine; Family Provider Family Medicine; PCP Family Medicine
DX: S09.90XA Unspecified injury of head, initial encounter (principal); S16.1XXA Strain of muscle, fascia and tendon at neck level, initial encounter; W01.198A Fall on same level from slipping, tripping and stumbling with subsequent striking against other object, initial encounter; Y93.9 Activity, unspecified; M79.7 Fibromyalgia; F41.9 Anxiety disorder, unspecified; J80 Acute respiratory distress syndrome; Z79.899 Other long term (current) drug therapy; Z72.0 Tobacco use
CPT/HCPCS: 70450; 72040; 72125; 99283

== ENCOUNTER 2018-04-02 14:21 | Emergency (ER) | payer MEDICAID, SELFPAY ==
[2018-04-02 14:23] VITALS: BP 137/73; PULSE 82; RESP 18; TEMP 37.1; O2SAT 98; BMI 36.4
--- NOTE | 2018-04-02 14:34 | EKG12_ITS ---
Test Reason : REPEAT-CP Blood Pressure : / mmHG Vent. Rate : 071 BPM Atrial Rate : 071 BPM P-R Int : 146 ms QRS Dur : 084 ms QT Int : 440 ms P-R-T Axes : 013 022 056 degrees QTc Int : 478 ms Normal sinus rhythm Nonspecific T wave abnormality Abnormal ECG Confirmed by RELL LANGSTON ([id number]), index editor OANH AGARWAL ([id number] on 04/06/2018 2:23:27 PM Referred By: SUMMER Confirmed By:RELL LANGSTON
[2018-04-02] MEDS: 0.9% Normal Saline 1,000 ML 150 ML IV (14:42)
[2018-04-02] MEDS: Aspirin 81 MG TAB.CHEW 324 MG PO (14:42)
--- NOTE | 2018-04-02 14:58 | RAD_ITS ---
STUDY: X-RAY CHEST REASON FOR EXAM: Female, 37 years old. Chest pain. TECHNIQUE: Single AP portable view of the chest. COMPARISON: Comparison is made with prior study dated September 23, 2017. FINDINGS: EKG electrodes are seen. The lungs are clear and expanded. There is no demonstrated pleural abnormality. Sternal cerclage wires are present from a prior sternotomy. Normal mediastinum and neyda. Normal visualized pulmonary arteries. Normal visualized aortic arch and descending thoracic aorta. Normal visualized thoracic spine. Normal visualized ribs, clavicles, and shoulders. There is no demonstrated abnormality of the visualized soft tissue structures of the upper abdomen. RAD/Chest 1 View (Portable) IMPRESSION: Normal x-ray examination of the chest. Electronically Signed: Tenzin Persaud MD at 15:11 EST Tel [phone], Service support ,
[2018-04-02 15:05] LABS: Absolute Lymphocyte Count 2.01 X10^3/ul (0.83-4.51); Absolute Neutrophil Count 5.7 X10^3/uL (2.0-7.7); Basophil# 0.02 X10^3/uL; Basophil% 0.2 % (0-1); Eosinophil# 0.19 X10^3/uL; Eosinophils% 2.2 % (0-5); Hematocrit 40.3 % (37-47); Lymphocyte # 2.01 X10^3/ul (4.0); Lymphocyte % 23.2 % (19-41); Mean Corp Hgb Conc 32.3 g/gl (32-36); Mean Corpuscular Hgb 30.8 pg (27.0-32.0); Mean Corpuscular Volume 95.5 fL (81-99); Mean Platelet Vol. 10.8 fl (6.2-12.0); Monocyte# 0.75 X10^3/uL; Monocyte% 8.7 % (0-10); Neutrophil # 5.67 X10^3/uL (2.7-7.7); Neutrophil % 65.4 % (47-70); Platelet Count 274 K/mm3 (150-450); RBC Distribution Width CV 13.4 % (11.6-14.6); RBC Distribution Width SD 46.5 fl (35.1-43.9); Red Blood Count 4.22 M/mm3 (4.2-5.4); White Blood Count 8.7 K/mm3 (4.4-11.0)
[2018-04-02 15:08] LABS: POSITIVE COUNT NO; POSITIVE DIFFERENTIAL NO; POSITIVE MORPHOLOGY NO
[2018-04-02 15:16] LABS: D-Dimer Quantitative (DVT/PE) 0.52 FEU/ug/m (0.27-0.49)
[2018-04-02 15:22] LABS: Anion Gap 7 (5-15); BUN 15 mg/dL (7-18); BUN/Creat Ratio 16.3 RATIO (10-20); Calcium,Total 8.8 mg/dL (8.5-10.1); Chloride 110 mmol/L (98-107); Creatinine, Serum 0.92 mg/dL (0.55-1.02); EST Glomerular Filtration Rate 72 mL/min (>60); Est Glom Filt Rate - Afr Amer 87 mL/min (>60); Estimated Creatinine Clearance 67.91 ml/min; Glucose 98 mg/dL (74-106); Potassium 3.6 mmol/L (3.5-5.1); Sodium Level 140 mmol/L (136-145)
--- NOTE | 2018-04-02 15:31 | CT_ITS ---
STUDY: CTA CHEST REASON FOR EXAM: Female, 37 years old. Chest pain. Short of breath. Previous aortic repair. RADIATION DOSAGE (If Supplied By Facility): CTDIvol = ( 14.26 ) mGy, DLP = ( 638.89 ) mGycm TECHNIQUE: The examination was performed with the intravenous administration of 100 ml of Isovue 370 contrast material. Post-processing of the angiographic images was performed, with multiplanar reformation and 3D reconstruction. Individualized dose optimization techniques were used for this CT. COMPARISON: 11/11/2017. FINDINGS: Normal enhancement of the main pulmonary artery and right and left pulmonary arteries. Normal enhancement of the bilateral peripheral pulmonary arteries. There is no demonstrated pulmonary embolism. Normal thoracic aorta and visualized great vessels. There is no demonstrated aortic dissection. Normal heart and pericardium. Sternal cerclage wires are present from a prior sternotomy. Normal mediastinum. Normal hilar regions. Normal visualized trachea and bronchi. The lungs are well expanded. Stable probable scarring along the inferior aspect of the right major fissure. Otherwise normal parenchyma. Normal pleura. Normal chest wall structures. Normal osseous structures. Normal visualized upper abdomen. CT/CTA Chest W/WO Contrast IMPRESSION: Normal CTA chest examination, without a demonstrated pulmonary embolism or arterial dissection. No acute chest disease. Electronically Signed: Narinder Trinidad MD at 17:01 EST , Service support ,
[2018-04-02 15:33] LABS: Pregnancy, Serum, hCG Quali. NEGATIVE Negative (0-9 Nonpreg)
[2018-04-02 15:41] VITALS: BP 165/100; PULSE 78; RESP 17
[2018-04-02] MEDS: Ketorolac 30 MG/ML Syringe IV (16:28)
--- NOTE | 2018-04-02 16:43 | EKG12_ITS ---
Test Reason : CP Blood Pressure : / mmHG Vent. Rate : 081 BPM Atrial Rate : 081 BPM P-R Int : 120 ms QRS Dur : 086 ms QT Int : 376 ms P-R-T Axes : 010 021 049 degrees QTc Int : 436 ms Normal sinus rhythm T wave abnormality, consider anterior ischemia Abnormal ECG Confirmed by RELL LANGSTON ([id number]), purchasing expeditor OANH AGARWAL ([id number] on 04/06/2018 2:23:48 PM Referred By: NEEL/SUMMER Confirmed By:RELL LANGSTON
[2018-04-02 17:15] VITALS: PULSE 73; RESP 17; O2SAT 98
--- NOTE | 2018-04-02 17:25 | ED.VISSUMM ---
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 She reports that she has chest pain that began 20 minutes ago while driving. There is a sharp pain is 10 out of 10 at worst and 7-10 currently. Is worsened by breathing. Is relieved by sitting up. She reports she is been nauseated and short of breath with this. There is no radiation of the pain. She denies having had similar symptoms previously. Patient does have a history of a PE in 2016. She also has a history of an aortic valve repair in 2000 and an atrial septal defect repair in 2000. Physical Examination: Vitals: Stable. Afebrile. General: Well-nourished and well-developed. Head: Normocephalic atraumatic. Neck: Supple, no lymphadenopathy. No JVD. Nontender. Cardiovascular: Regular rate and rhythm. No murmurs. Respiratory: No respiratory distress. Clear to auscultation bilaterally. Abdominal: Soft, nontender, nondistended, normal bowel sounds. No guarding, rebound, or peritoneal signs. Back: Nontender. Extremities: Nontender, no edema. Skin: Normal color, no rash. Neurologic: Alert and oriented ?3. Cranial nerves II through XII are intact. Normal strength and sensation. Psych: Normal affect. Test Results: EKG is sinus at 81 with T wave inversions in leads V2 to V6. This is a change from October of this year. Repeat EKG shows the T wave inversions in leads V4 to V6 to have flattened. However, she does still have T wave inversions in leads V2 and V3. Initial troponin is negative. D-dimer 0.52. test is negative. Chem-7 is more for chloride 110. CBC is normal. Chest x-ray is normal. CTA of the chest shows no evidence of PE or dissection. Repeat troponin will be obtained 3 hours after her initial one was drawn. Emergency Department Course and Treatment: Patient was treated with aspirin. She was given Toradol IV. She is refused Tylenol. I did review the chart. She had a heart catheterization February 02, 2017 that showed normal coronary arteries. She had separate ostia for her left circumflex and left anterior descending artery. Nondominant right coronary artery. Her ejection fraction was 50%. The patient has frequent visits to the ER. In fact, this is her 23rd visit this year. I do not think that treating her opiate medications is in in her best interest. Treatment Plan: I did discuss the EKG changes with Dr. Harris. He asked that the patient have a 3-hour troponin. If this is negative. 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 Return to the emergency department for any worsening symptoms. Disposition: Pending the repeat troponin. Impression: 1. Atypical chest pain. This note was generated with [employer] dictation software. It may contain incorrect words, spelling, and punctuation that were not noted in review of the chart prior to signing ED Disposition - Plan for ED Patient: Chief Complaint: Chest Pain Instructions: ED Chest Pain Atypical Unkn Cause Referrals: Bill Dai MD [Primary Care Provider] - 1-2 Days if not improving Additional Instructions: Follow up with your Travel Accommodations Rater as soon as possible.
--- NOTE | 2018-04-02 17:28 | ED.DCSUM_ITS ---
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 She reports that she has chest pain that began 20 minutes ago while driving. There is a sharp pain is 10 out of 10 at worst and 7-10 currently. Is worsened by breathing. Is relieved by sitting up. She reports she is been nauseated and short of breath with this. There is no radiation of the pain. She denies having had similar symptoms previously. Patient does have a history of a PE in 2016. She also has a history of an aortic valve repair in 2000 and an atrial septal defect repair in 2000. Physical Examination: Vitals: Stable. Afebrile. General: Well-nourished and well-developed. Head: Normocephalic atraumatic. Neck: Supple, no lymphadenopathy. No JVD. Nontender. Cardiovascular: Regular rate and rhythm. No murmurs. Respiratory: No respiratory distress. Clear to auscultation bilaterally. Abdominal: Soft, nontender, nondistended, normal bowel sounds. No guarding, rebound, or peritoneal signs. Back: Nontender. Extremities: Nontender, no edema. Skin: Normal color, no rash. Neurologic: Alert and oriented ?3. Cranial nerves II through XII are intact. Normal strength and sensation. Psych: Normal affect. Test Results: EKG is sinus at 81 with T wave inversions in leads V2 to V6. This is a change from October of this year. Repeat EKG shows the T wave inversions in leads V4 to V6 to have flattened. However, she does still have T wave inversions in leads V2 and V3. Initial troponin is negative. D-dimer 0.52. test is negative. Chem-7 is more for chloride 110. CBC is normal. Chest x-ray is normal. CTA of the chest shows no evidence of PE or dissection. Repeat troponin will be obtained 3 hours after her initial one was drawn. Emergency Department Course and Treatment: Patient was treated with aspirin. She was given Toradol IV. She is refused Tylenol. I did review the chart. She had a heart catheterization February 02, 2017 that showed normal coronary arteries. She had separate ostia for her left circumflex and left anterior descending artery. Nondominant right coronary artery. Her ejection fraction was 50%. The patient has frequent visits to the ER. In fact, this is her 23rd visit this year. I do not think that treating her opiate medications is in in her best interest. Treatment Plan: I did discuss the EKG changes with Dr. Harris. He asked that the patient have a 3-hour troponin. If this is negative. 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 Return to the emergency department for any worsening symptoms. Disposition: Pending the repeat troponin. Impression: 1. Atypical chest pain. This note was generated with [employer] dictation software. It may contain incorrect words, spelling, and punctuation that were not noted in review of the chart prior to signing ED Disposition - Plan for ED Patient: Chief Complaint: Chest Pain Instructions: ED Chest Pain Atypical Unkn Cause Referrals: Bill Dai MD [Primary Care Provider] - 1-2 Days if not improving Additional Instructions: Follow up with your Batch Or Continuous Still Operator as soon as possible.
[2018-04-02 19:18] VITALS: PULSE 73; RESP 19; O2SAT 95
[2018-04-02 20:00] VITALS: BP 143/68; PULSE 71; RESP 16; O2SAT 97
== END 2018-04-02 20:01 | disposition home or self-care (01) ==
PROVIDERS: Emergency Provider Emergency Medicine; Family Provider Family Medicine; PCP Family Medicine
DX: R07.89 Other chest pain (principal); Z86.73 Personal history of transient ischemic attack (TIA), and cerebral infarction without residual deficits; Z79.899 Other long term (current) drug therapy; Z72.0 Tobacco use
CPT/HCPCS: 36415; 71045; 71275; 80048; 84484; 84703; 85025; 85379; 93005; 96361; 96374; 99285; J7030; Q9967; A4216

== ENCOUNTER 2018-04-25 19:08 | Emergency (ER) | payer MEDICAID, SELFPAY ==
[2018-04-25 19:11] VITALS: BP 145/82; PULSE 63; RESP 16; TEMP 36.5; O2SAT 94; BMI 35.2
--- NOTE | 2018-04-25 19:19 | EKG12_ITS ---
Test Reason : STROKE Blood Pressure : / mmHG Vent. Rate : 060 BPM Atrial Rate : 060 BPM P-R Int : 136 ms QRS Dur : 086 ms QT Int : 446 ms P-R-T Axes : 054 054 078 degrees QTc Int : 446 ms Normal sinus rhythm Normal ECG Confirmed by DIPIKA ADAMS, CONCEPCION ([id number]), science editor OANH AGARWAL ([id number] on 04/28/2018 2:55:51 PM Referred By: ISABELLE Confirmed By:CONCEPCION BAR MD
--- NOTE | 2018-04-25 19:20 | ED.VISSUMM ---
- ER Visit Summary Date of Service: 04/25/18 Chief Complaint: [place] like everything was going dark History of Present Illness: The patient is a 37 F history of mitral valve prolapse, fibromyalgia, leiomyosarcoma, bicuspid valve surgery and prior bilateral knee replacements. Patient states she was driving down the road today and felt like everything was going dark. Her son I believe then called the squad who brought her in. Physical Examination: Middle-aged female. No acute distress. Vital signs are stable. She is afebrile. She is in no distress. HEENT exam pupils round reactive light. Extra motions are intact. No facial droop. Normal speech. No signs of trauma to her face or scalp. Nontender. Neck nontender. Trachea midline. No lymphadenopathy. Full range of motion her neck. Able to touch chin to chest. Lungs clear to auscultation bilaterally. Heart regular rate and rhythm no murmur. Rate about 60. Abdomen soft nontender. Normal bowel sounds no peritoneal signs. Patient is moving all 4 extremities. Neurovascular intact. She does have well-healed surgical incisions on her knees from prior replacements. She has bilateral 5 out of 5 canary raiser strength. Bilateral dorsi and plantar flexion equal symmetrical 5 out of 5 strength. Neurologically she is awake. She is alert. She answers questions. She follows commands. Her NIH score is 0. Negative to nose within normal limits. She can raise either leg off the bed. Test Results: EKG shows a sinus rhythm rate of 60 no acute abnormality. CBC shows no acute abnormality. BMP shows no acute abnormality. Emergency Department Course and Treatment: Patient is very well-known to this emergency department. She has had multiple prior visits often with extensive but negative workups. Clinically I do not think this is an acute neurologic event. She has a normal exam at this time. On repeat exam patient is doing well at 2021. Her son and another family member present in the room. We discussed her test results. They are comfortable taking her home. Her exam remains normal. Treatment Plan: Follow-up with her primary care physician this week. Disposition: Discharge Impression: Transient mental status change resolved of uncertain etiology. This note was generated with [employer] software. It may contain incorrect words, spelling, and punctuation that were not noted in review of the chart prior to signing ED Disposition - Plan for ED Patient: Chief Complaint: Neuro S/Sx Referrals: Bill Dai MD [Primary Care Provider] -
--- NOTE | 2018-04-25 19:25 | ED.DCSUM_ITS ---
- ER Visit Summary Date of Service: 04/25/18 Chief Complaint: [place] like everything was going dark History of Present Illness: The patient is a 37 F history of mitral valve prolapse, fibromyalgia, leiomyosarcoma, bicuspid valve surgery and prior bilateral knee replacements. Patient states she was driving down the road today and felt like everything was going dark. Her son I believe then called the squad who brought her in. Physical Examination: Middle-aged female. No acute distress. Vital signs are stable. She is afebrile. She is in no distress. HEENT exam pupils round reactive light. Extra motions are intact. No facial droop. Normal speech. No signs of trauma to her face or scalp. Nontender. Neck nontender. Trachea midline. No lymphadenopathy. Full range of motion her neck. Able to touch chin to chest. Lungs clear to auscultation bilaterally. Heart regular rate and rhythm no murmur. Rate about 60. Abdomen soft nontender. Normal bowel sounds no peritoneal signs. Patient is moving all 4 extremities. Neurovascular intact. She does have well-healed surgical incisions on her knees from prior replacements. 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 Bilateral dorsi and plantar flexion equal symmetrical 5 out of 5 strength. Neurologically she is awake. She is alert. She answers questions. She follows commands. Her NIH score is 0. Negative to nose within normal limits. She can raise either leg off the bed. Test Results: EKG shows a sinus rhythm rate of 60 no acute abnormality. CBC shows no acute abnormality. BMP shows no acute abnormality. Emergency Department Course and Treatment: Patient is very well-known to this emergency department. She has had multiple prior visits often with extensive but negative workups. Clinically I do not think this is an acute neurologic event. She has a normal exam at this time. On repeat exam patient is doing well at 2021. Her son and another family member present in the room. We discussed her test results. They are comfortable taking her home. Her exam remains normal. Treatment Plan: Follow-up with her primary care physician this week. Disposition: Discharge Impression: Transient mental status change resolved of uncertain etiology. This note was generated with [employer] software. It may contain incorrect words, spelling, and punctuation that were not noted in review of the chart prior to signing ED Disposition - Plan for ED Patient: Chief Complaint: Neuro S/Sx Referrals: Bill Dai MD [Primary Care Provider] -
[2018-04-25 19:48] LABS: Anion Gap 8 (5-15); BUN 21 mg/dL (7-18); BUN/Creat Ratio 18.4 RATIO (10-20); Calcium,Total 8.6 mg/dL (8.5-10.1); Chloride 105 mmol/L (98-107); Creatinine, Serum 1.14 mg/dL (0.55-1.02); EST Glomerular Filtration Rate 56 mL/min (>60); Est Glom Filt Rate - Afr Amer 68 mL/min (>60); Estimated Creatinine Clearance 62.02 ml/min; Glucose 90 mg/dL (74-106); Sodium Level 137 mmol/L (136-145)
[2018-04-25 20:00] LABS: Absolute Lymphocyte Count 2.52 X10^3/ul (0.83-4.51); Basophil# 0.05 X10^3/uL; Basophil% 0.6 % (0-1); Eosinophil# 0.17 X10^3/uL; Hematocrit 39.6 % (37-47); Lymphocyte # 2.52 X10^3/ul (4.0); Lymphocyte % 29.8 % (19-41); Mean Corp Hgb Conc 32.8 g/gl (32-36); Mean Corpuscular Hgb 30.9 pg (27.0-32.0); Mean Corpuscular Volume 94.1 fL (81-99); Mean Platelet Vol. 10.6 fl (6.2-12.0); Monocyte# 0.73 X10^3/uL; Monocyte% 8.6 % (0-10); Neutrophil # 4.96 X10^3/uL (2.7-7.7); Neutrophil % 58.8 % (47-70); Platelet Count 331 K/mm3 (150-450); Red Blood Count 4.21 M/mm3 (4.2-5.4); White Blood Count 8.5 K/mm3 (4.4-11.0)
[2018-04-25 20:01] LABS: POSITIVE COUNT NO; POSITIVE DIFFERENTIAL NO; POSITIVE MORPHOLOGY NO
[2018-04-25 20:15] VITALS: BP 142/83; PULSE 61; RESP 16; O2SAT 97
--- NOTE | 2018-04-25 20:24 | ED.DEP ---
ED Disposition - Plan for ED Patient: Disposition: Home or Assisted Living Chief Complaint: Neuro S/Sx Referrals: Bill Dai MD [Primary Care Provider] - As soon as possible Additional Instructions: Your exam and labs are unremarkable today. We do not have a specific cause for your symptoms resolved. Follow-up your doctor this week.
[2018-04-25 20:38] VITALS: BP 129/89; PULSE 68; RESP 16; O2SAT 97
[2018-04-26 14:26] LABS: Bedside Glucose 101 mg/dL (70-110)
--- OUTSIDE RECORDS SUMMARY | 2018-06-19 21:41 | XMS RPT_ITS ---
:1980 Author Organization OHIP Support Name Relationship Address Phone [employer] Unavailable [address] + [place] [address] ERIK LOYA Unavailable [address] + [place] [address] FORD LOYA Unavailable Unavailable + FORD LOYA Unavailable Unavailable + FORD LOYA Unavailable Unavailable + LESTER LOYA Unavailable [address] + [place] [address] ERIK LOYA Unavailable [address] + [place] [address] UE Unavailable Unavailable Unavailable NOT GIVEN Unavailable Un[place] [address] NORY LOYA Unavailable Unavailable + FORD LOYA Unavailable Unavailable + OSEAS LOYAORES Unavailable Unavailable + OSEAS LOYAORES Unavailable Unavailable + HEBER LESTER Unavailable [address] + [place] [address] ERIK LOYA Unavailable [address] + [place] [address] UE Unavailable Unavailable Unavailable ERIK LOYA Unavailable [address] + [place] [address] UE Unavailable Unavailable Unavailable ERIK LOYA Unavailable [address] + [place] [address] UE Unavailable Unavailable Unavailable FORD LOYA Unavailable Unavailable + HEBER FORD Unavailable Unavailable + LOYA, FORD Unavailable Unavailable + LOYA LESTER Unavailable [address] + [place] [address] LOYA, FORD Unavailable Unavailable + LOYA, FORD Unavailable Unavailable + LOYA, FORD Unavailable Unavailable + LOYA, LESTER Unavailable [address] + [place] [address] LOYA, FORD Unavailable Unavailable + LOYA, FORD Unavailable Unavailable + LOYA, FORD Unavailable Unavailable + LOYA, LESTER Unavailable [address] + [place] [address] ERIK LOYA Unavailable [address] + [place] [address] UE Unavailable Unavailable Unavailable NOT GIVEN Unavailable Unavailable Unavailable PATRICK LOYAORIS Unavailable Unavailable + ERIK LOYA Unavailable [address] + [place] [address] UE Unavailable Unavailable Unavailable LOYA, FORD Unavailable Unavailable + LOYA, FORD Unavailable Unavailable + LOYA FORD Unavailable Unavailable + LOYAPATRICKLESTER Unavailable [address] + [place] [address] ERIK LOYA Unavailable [address] + [place] [address] UE Unavailable Unavailable Unavailable ERIK LOYA Unavailable [address] + [place] [address] UE Unavailable Unavailable Unavailable ERIK LOYA Unavailable [address] + [place] [address] UE Unavailable Unavailable Unavailable LOYA, FORD Unavailable Unavailable + LOYA, FORD Unavailable Unavailable + LOYA, FORD Unavailable Unavailable + LOYA, LESTER Unavailable [address] + [place] [address] ERIK LOYA Unavailable [address] + [place] [address] UE Unavailable Unavailable Unavailable ERIK LOYA Unavailable [address] + [place] [address] UE Unavailable Unavailable Unavailable NOT GIVEN Unavailable Unavailable Unavailable PATRICK LOYAORIS Unavailable Unavailable + HONEYBAKED HAM Unavailable [address] + [address] [place] [address] ERIK LOYA Unavailable [address] + [place] [address] HONEYBAKED HAM Unavailable [address] + [address] [place] [address] ERIK LOYA Unavailable [address] + [place] [address] HEBER FORD Unavailable Unavailable + HEBER FORD Unavailable Unavailable + LOYA, FORD Unavailable Unavailable + LOYA, LESTER Unavailable [address] + [place] [address] HONEYBAKED HAM Unavailable [address] + [address] [place] [address] ERIK LOYA Unavailable [address] + [place] [address] HONEYBAKED HAM Unavailable [address] + [address] [place] [address] ERIK LOYA Unavailable [address] + [place] [address] HONEYBAKED HAM Unavailable [address] + [address] [place] [address] ERIK LOYA Unavailable [address] + [place] [address] NOT GIVEN Unavailable Unavailable Unavailable NORY LOYA Unavailable Unavailable + HONEYBAKED HAM Unavailable [address] + [address] [place] [address] ERIK LOYA Unavailable [address] + [place] [address] HONEYBAKED HAM Unavailable [address] + [address] [place] [address] MARILYN LOYAN Unavailable [address] + [place] [address] S Unavailable Unavailable Unavailable MARILYN LOYAN Unavailable [address] + [place] [address] MARILYN LOYAN Unavailable [address] + [place] [address] TACOBELL Unavailable [address] + [place] [address] MARILYN LOYAN Unavailable [address] + [place] [address] T[place]LL Unavailable [address] + [place] [address] MARILYN LOYAN Unavailable [address] + [place] [address] T[place]LL Unavailable [address] + [place] [address] MARILYN LOYAN Unavailable [address] + [place] [address] T[place] Unavailable [address] + [place] [address] MARILYN LOYAN Unavailable [address] + [place] [address] [place] Unavailable [address] + [place] [address] Care Team Providers Name Role Phone [place], Bill Primary Care Unavailable Jaun Singh Attending Unavailable [place], Bill Primary Care Unavailable Dayana Henderson Attending Unavailable [place], Bill Primary Care Unavailable Cecilio Young Attending Unavailable [place], Bill Primary Care Unavailable Neil Casiano Attending Unavailable [place], Bill Primary Care Unavailable Topher Colon Attending Unavailable [place], Bill Primary Care Unavailable FRANCISCO EMANUEL Attending Unavailable [place], Bill Primary Care Unavailable Schuyler Villarreal Attending Unavailable [place], Bill Primary Care Unavailable Corinne Gallegos Attending Unavailable Carmine, Bill Primary Care Unavailable Colon, Topher Attending Unavailable [place], Bill Primary Care Unavailable Arcadio Yanes Attending Unavailable Carmine, Bill Primary Care Unavailable Arcadio Shepard Attending Unavailable Carmine, Bill Primary Care Unavailable Jaun Singh Attending Unavailable Carmine, Bill Primary Care Unavailable Schuyler Ceballos Attending Unavailable Carmine, Bill Primary Care Unavailable Whitley Chiu Attending Unavailable Carmine, Bill Primary Care Unavailable Neil Casiano Attending Unavailable Carmine, Bill Primary Care Unavailable Colon, Topher Attending Unavailable Carmine, Bill Primary Care Unavailable Schuyler Villarreal Attending Unavailable Carmine, Bill Primary Care Unavailable Colon, Topher Attending Unavailable [place], Bill Primary Care Unavailable Neil Casiano Attending Unavailable Carmine, Bill Primary Care Unavailable Jaun Singh Attending Unavailable Carmine, Bill Primary Care Unavailable Lynda Wheatley Attending Unavailable Carmine, Bill Primary Care Unavailable FRANCISCO EMANUEL Attending Unavailable [place], Bill Primary Care Unavailable Schuyler Ceballos Attending Unavailable Carmine, Bill Primary Care Unavailable Neil Casiano Attending Unavailable Carmine, Bill Primary Care Unavailable Jaun Singh Attending Unavailable CARMINE, BILL J Attending Unavailable CARMINE, BILL J Referring Unavailable CARMINE, BILL J Attending Unavailable ANGELLA FERRER (RIVET SPINNER) Attending Unavailable CARMINE, BILL J Attending Unavailable CHELSEA ALLEN Attending Unavailable MAURICIO GATES Referring Unavailable ANA REED (RIVET SPINNER) Attending Unavailable MAURICIO GATES Referring Unavailable CARMINE, BILL Arnold Attending Unavailable Lila GOMEZ (PA-C) Attending Unavailable ROMAIN ARAGON (PT) Attending Unavailable Lila GOMEZ (PA-C) Referring Unavailable CARMINE, BILL Arnold Attending Unavailable Lila GOMEZ (PA-C) Referring Unavailable ROMAIN ARAGON (PT) Attending Unavailable Lila GOMEZ (PA-C) Referring Unavailable CARMINE, BILL Arnold Attending Unavailable CARMINEBILL J Referring Unavailable ROMAIN ARAGON (PT) Attending Unavailable Lila GOMEZ (PA-C) Referring Unavailable GERALDINE JAUREGUI (RIVET SPINNER) Attending Unavailable SATYA MAY Referring Unavailable MARLENI CARLOS (PA) Attending Unavailable FRANCISCO MAE Attending Unavailable CARMINEBILL Attending Unavailable SATYA MAY Attending Unavailable CINTHIA NICOLAS (RIVET SPINNER) Attending Unavailable CINTHIA NICOLAS (RIVET SPINNER) Referring Unavailable CARMINE, BILL J Attending Unavailable BILL LOU Referring Unavailable Lila GOMEZ (PA-C) Attending Unavailable GERALDINE JAUREGUI (RIVET SPINNER) Attending Unavailable BILL LOU Attending Unavailable GERALDINE JAUREGUI (RIVET SPINNER) Attending Unavailable FRANCISCO MAE Attending Unavailable FRANCISCO MAE Referring Unavailable CARMINEBILL Vega Attending Unavailable GERALDINE JAUREGUI (RIVET SPINNER) Attending Unavailable BILL LOU Referring Unavailable CARMINE, BILL Arnold Referring Unavailable CARMINEBILL Vega Attending Unavailable CARMINE, BILL Arnold Referring Unavailable RYAN ESCALONA Attending Unavailable CARMINE ADAMS, BILL Primary Care Unavailable DALLAS MANZO CNP Attending Unavailable CARMINE ADAMS, BILL Primary Care Unavailable MURPHY AGARWAL DO Attending Unavailable CARMINE ADAMS, BILL Primary Care Unavailable DALLAS MANZO CNP Attending Unavailable CARMINE ADAMS, BILL Primary Care Unavailable JOVANY SEE, DALLAS Attending Unavailable CARMINE ADAMS, BILL Primary Care Unavailable JOVANY SEE, DALLAS Attending Unavailable CARMINE ADAMS, BILL Primary Care Unavailable IRISH CORLEY Attending Unavailable CARMINE ADAMS, BILL Primary Care Unavailable DALLAS MANZO CNP Attending Unavailable BILL LOU MD Primary Care Unavailable SATYA MAY Admitting Unavailable SATYA MAY Attending Unavailable SATYA MAY Referring Unavailable SATYA MAY Admitting Unavailable SATYA MAY Attending Unavailable GELA HALL Attending Unavailable SATYA MAY Admitting Unavailable SATYA MAY Attending Unavailable GUILHERME MONTEJO DO Admitting Unavailable GUILHERME MONTEJO DO Attending Unavailable CARMINEBILL Referring Unavailable GUILHERME MONTEJO DO Primary Care Unavailable CARMINE, BILL Consulting Unavailable PROVIDER, UNKNOWN Consulting Unavailable ANISHA, DR MATTHEW Barnes Admitting Unavailable ANISHA, DR MATTHEW Barnes Attending Unavailable CARMINE, BILL Referring Unavailable DR MATTHEW LANCASTER Primary Care Unavailable CARMINE, BILL Consulting Unavailable PROVIDER, UNKNOWN Consulting Unavailable TON, DR BILL Gomez Admitting Unavailable TON, DR BILL Gomez Attending Unavailable TON, DR BILL Gomez Primary Care Unavailable CARMINE, BILL Consulting Unavailable CARMINE, BILL Referring Unavailable PROVIDER, UNKNOWN Consulting Unavailable ERIN PAYTON Admitting Unavailable ERIN PAYTON Attending Unavailable CARMINEBILL Vega Referring Unavailable ERIN PAYTON Primary Care Unavailable CARMINE, BILL Consulting Unavailable PROVIDER, UNKNOWN Consulting Unavailable PROBLEMS PROBLEMS DATE TYPE CONDITION / CODE ATTENDING STATUS SOURCE 05/06/2018 Active Headache / NA Active Tim R51(ICD-10) [facility] Repository 04/13/2018 Active Fibromyalgia / NA Active Tim M79.7(ICD-10) [facility] [place] Repository 03/12/2018 Active Radiculopathy, SATYA MAY Active [facility]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 / Clinic Other M54.16(ICD-10) [place] Repository 03/12/2018 Active Chest pain, BUDZIAK, Active [facility] unspecified / [facility] Other R07.9(ICD-10) [facility] Repository 03/12/2018 Active Other specified BUDZIAK, Active [facility] abnormal findings of [facility] Other blood chemistry / [facility] R79.89(ICD-10) Repository 12/12/2017 Active Paresthesia of skin NA Active [facility] / R20.2(ICD-10) [facility] [place] Repository 11/17/2017 Active Sacrococcygeal SATYA MAY Active [facility] disorders, not Clinic Other elsewhere classified [place] / M53.3(ICD-10) Repository 11/17/2017 Active Other chronic pain / SATYA MAY Active [facility] G89.29(ICD-10) Clinic Other [place] Repository 11/27/2017 Active Bronchitis, not NA Active [facility] specified as acute [facility] or chronic / [place] J40(ICD-10) Repository 10/09/2017 Active 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, [facility]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 / [place] M51.36(ICD-10) Repository 10/09/2017 Active Unspecified SATYA MAY Active [facility] 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, [place]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 / M46.98(ICD-10) 11/18/2014 Active Cervicalgia / SATYA MAY Active [facility] M54.2(ICD-10) [facility] [place] Repository 11/21/2017 Unknown R10.32 - Left lower Colon, Topher Active [place] quadrant pain / [facility] R10.32(ICD-10) Hospital Repository 10/01/2017 Active Pain in right hand / NA Active [facility] M79.641(ICD-10) [facility] [place] Repository 09/17/2017 Active Unknown / ROMAIN ARAGON Active Tim UNK(Unknown) (PT) [facility] [place] Repository 2017 Unknown R10.31 - Right lower JENAE, FRANCISCO Active [place] quadrant pain / Community R10.31(ICD-10) Hospital Repository 05/28/2017 Unknown J40 - Bronchitis, Singh, Jaun Active [place] not specified as [facility] acute or chronic / Hospital J40(ICD-10) Repository 05/23/2017 Active Unspecified injury NA Active [facility] of left wrist, hand [facility] and finger(s), [place] initial encounter / Repository S69.92XA(ICD-10) PROCEDURES PROCEDURES No Procedure Records FoundRESULTS RESULTS EMERGENCY DEPARTMENT Observed: 05/12/2018 Status: F Source: [place] SUMMARY 10:39 PM [facility] REPOSITORY [facility] Medical Records Department [address] [place] [address] Emergency Department Summary 05/12/18 1517 MR#: [id number] Acct: [id number] Name: CHRISSIE CR Rep #: [id number] : 1980 37 From: Arcadio Shepard MD PCP: Bill Lou MD Status: DEP ER - ER Visit Summary Date of Service: 05/12/18 Chief Complaint: Difficulty urinating History of Present Illness: The patient is a 37 F presents to the emergency department with urinary difficulties. Patient woke this morning and thinks that she may want herself overnight. She states she was walking today and feels like it happened again. She denies any numbness in her groin. She denies any pain down her legs. She does have history of chronic back pain, but denies any new injury. She states that she feels like she has to go and can just not make it to the bathroom. She feels like she is fully able to empty her bladder when she gets there. She is had no change in bowel habits. She denies any fevers or chills. She does not take anticoagulants. Physical Examination: Afebrile, vitals unremarkable. Well- appearing female no acute distress. Head is normocephalic, atraumatic. Pupil's equal round reactive, extraocular muscles intact. Neck supple. Heart regular rate and rhythm. Lungs clear, chest nontender. Abdomen soft, nontender, nondistended. No pulsatile mass. Patient has paraspinal tenderness in the lumbar area, but no bony tenderness. Straight leg raise is negative bilaterally. 2+ symmetric lower extremity pulses. 2+ reflexes. No clonus. No weakness of dorsiflexion, plantar flexion, or extensor hallucis longus bilaterally. Test Results: [] Emergency Department Course and Treatment: The patient states that she had an episode of urinary incontinence. Her exam is unremarkable. She has normal strength of her lower extremities. She has normal pulses. She has normal reflexes. She has no change in her perianal sensation. The patient urinated and post void residual was 13 cc. I did obtain plain films which are unremarkable. Her lumbar spine was unremarkable. It does show constipation. I do feel that this is likely contributing to her symptoms. I do not suspect that this is cauda equina or other dangerous process. In review of the patient's records, she is actually had this presentation multiple times in the past. I do not feel that emergent MRI is necessary. I am going to treat the patient with stool softeners. She will be discharged home. Treatment Plan: [] Disposition: Discharge Impression: 1. Exacerbation of chronic back pain This note was generated with VinPerfectation software. It may contain incorrect words, spelling, and punctuation that were not noted in review of the chart prior to signing ED Disposition - Plan for ED Patient: Chief Complaint: Complaint Instructions: ED Low Back Pain Injury Referrals: Bill Lou MD [Primary Care Provider] - What to do if you have Problems For any increased pain, shortness of breath, bleeding, nausea or vomiting, chest pain, or any unexpected problems, contact your Primary Care Provider. Call [facility] ([phone]) or report to the closest Emergency Room. Call 911 if necessary. 05/12/18 2238 <Electronically signed by Arcadio Shepard MD> Date Arcadio Shepard MD Cosigner Signature (If Indicated): Date CC: Bill Lou MD URINALYSIS, COMPLETE Collected: 05/12/2018 Status: F Source: [place] 3:30 PM [facility] REPOSITORY Order Comment: How was Urine Obtained? CLEAN CATCH TYPE CODE TESTS RESULT OUT OF RANGE REFERENCE UNITS LAB L400.3000 Yellow COLOR Normal Yellow LAB L400.3050 Clear Normal CLARITY Clear LAB L400.3200 Normal mg/dl Normal GLUCOSE, UR Normal LAB L400.3300 Negative mg/dL Normal BILIRUBIN URINE Negative LAB L400.3400 Negative mg/dl Normal KETONE UR Negative LAB L400.3465 1.002-1.030 Normal SP.GR. DIPSTX 1.015 LAB L400.3550 5.0 - 8.0 pH UR Normal 6.0 LAB L400.3600 Negative mg/dl PROT Normal DIPSTX Negative LAB L400.3700 Normal mg/dl Normal UROBILI Normal LAB L400.3750 Negative Normal NITRITE UR Negative LAB L400.3780 Negative /ul Normal OCCULT BLOOD-UR Negative LAB L400.3800 Negative /ul High LEUK 25 ESTERASE LAB L400.4050 0-5 /hpf WBC Normal 0-5 SEEN LAB L400.4100 0-5 /hpf 0 Normal RBC-UA SEEN LAB L400.4150 5-10 /hpf SQUAM 0 Normal EPI SEEN LAB L400.4300 None Seen /hpf 1+ Normal BACTERIA LAB L400.4350 <or=2+ /hpf 0 Normal MUCUS, URINE SEEN Performed By: #### L400.0001 #### [facility] [address] [place], [address] LUMBAR SPINE 2 OR 3 Observed: 05/12/2018 Status: F Source: [place] VIEWS 2:53 PM [facility] REPOSITORY [facility] Imaging Services [address] [place] [address] Lumbar Spine 2 or 3 Views MR#: [id number] Acct: [id number] Name: CHRISSIE CR Rep #: [id number] : 1980 F 37 From: Tenzin Persaud MD PCP: Bill Lou MD Status: REG ER Study: Lumbar Spine 2 or 3 Views Date of Exam: 05/12/18 Exam# [id number] Ordering Dr: Arcadio Shepard MD STUDY: X-RAY - LUMBAR SPINE REASON FOR EXAM: Female, 37 years old. Lower back pain following a fall. TECHNIQUE: 3 view(s) of the lumbar spine were obtained. COMPARISON: Comparison is made with prior study dated April 27, 2017. FINDINGS: Normal lumbar lordosis. There is no substantial scoliosis. There is a normal alignment of the vertebrae. Normal vertebral bodies and endplates. Normal disc space heights. Large amount of fecal material is seen in the colon. RAD/Lumbar Spine 2 or 3 Views IMPRESSION: Normal x-ray examination of the lumbar spine. 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 C-REACTIVE PROTEIN Collected: 05/06/2018 Status: F Source: [place] 3:52 PM [facility] REPOSITORY TYPE CODE TESTS RESULT OUT OF REFERENCE UNITS RANGE LAB CRP <0.9 mg/dL C-Reactive <0.1 Protein Performed By: #### CRP, WSR, ANAS #### [facility] [employer] [address] [place] [address] SED RATE WESTERGREN Collected: 05/06/2018 Status: F Source: [place] 3:52 PM [facility] REPOSITORY TYPE CODE TESTS RESULT OUT OF REFERENCE UNITS RANGE LAB WSR 0-20 mm/hr Sed Rate Westergren 5 Performed By: #### CRP, WSR, ANAS #### [facility] [employer] [address] [place], [place] [address] ADAM Collected: 05/06/2018 Status: F Source: [place] 3:52 PM [facility] REPOSITORY TYPE CODE TESTS RESULT OUT OF REFERENCE UNITS RANGE LAB ANAQL Negative ADAM Negative by EIA, Qual LAB ANAEIA OD Ratio ADAM 0.3 by EIA Result Comment: OD Ratio is interpreted as follows: Negative <1.0 Positive >=1.0 Performed By: #### CRP, WSR, ANAS #### [facility] [employer] [address] [place], [place] [address] CBC AND DIFFERENTIAL Collected: 05/06/2018 Status: F Source: [place] 3:50 PM [facility] REPOSITORY TYPE CODE TESTS RESULT OUT OF REFERENCE UNITS RANGE LAB WBC 3.70-11.00 k/uL WBC 8.16 LAB RBC 3.90-5.20 m/uL RBC 3.90 LAB HGB 11.5-15.5 g/dL Hemoglobin 12.0 LAB HCT 36.0-46.0 % Hematocrit 37.2 LAB MCV 80.0-100.0 fL MCV 95.4 LAB MCH 26.0-34.0 pG MCH 30.8 LAB MCHC 30.5-36.0 g/dL MCHC 32.3 LAB RDWCV 11.5-15.0 % RDW-CV 12.6 LAB PLTCT 150-400 k/uL Platelet Count 273 LAB MPV 9.0-12.7 fL MPV 10.9 LAB ANEUT % Neut% 64.2 LAB AANEUT 1.45-7.50 k/uL Abs Neut 5.24 LAB ALYMP % Lymph% 24.6 LAB AALYMP 1.00-4.00 k/uL Abs Lymph 2.01 LAB AMONO % Payne% 8.1 LAB AAMONO <0.87 k/uL Abs Payne 0.66 LAB AEOS % Eosin% 2.5 LAB AAEOS <0.46 k/uL Abs Eosin 0.20 LAB ABASO % Baso% 0.6 LAB AABASO <0.11 k/uL Abs Baso 0.05 LAB AUNRBC 0 /100 WBC NRBCs 0.0 LAB ABNRBC <0.01 k/uL Absolute nRBC <0.01 LAB DTYP DTYPE Auto Diff Performed By: #### CBCDIF, CMP, TSH #### [facility] [address] [place] [id number] COMP METABOLIC PANEL Collected: 05/06/2018 Status: F Source: [place] 3:50 PM [facility] REPOSITORY TYPE CODE TESTS RESULT OUT OF REFERENCE UNITS RANGE LAB TP 6.3-8.0 g/dL Protein, Total 7.2 LAB ALB 3.9-4.9 g/dL Albumin 4.4 LAB CA 8.5-10.2 mg/dL Calcium, Total 9.4 LAB TBIL 0.2-1.3 mg/dL Bilirubin, Total 0.2 LAB ALKP 34-123 U/L Alkaline Phosphatase 50 LAB AST 13-35 U/L AST 34 LAB GLU 74-99 mg/dL Low Glucose 67 Result Comment: The [place] [employer] (ADA) provides guidance for cutoff values for fasting glucose and random glucose. The ADA defines fasting as no caloric intake for at least 8 hours. Fas ting plasma glucose results between 100 to 125 mg/dL indicate increased risk for diabetes (prediabetes). Fasting plasma glucose results greater than or equal to 126 mg/dL meet the criteria for diagnosis of diabetes. In the absence of unequivocal hyperglycemia, results should be confirmed by repeat testing. In a patient with classic symptoms of hyperglycemia or hyperglycemic crisis, random plasma glucose results greater than or equal to 200 mg/dL meet the criteria for diagnosis of diabetes. Reference: Standards of Medical Care in Diabetes 2016, [place] [employer]. Diabetes Care. 2016.39(Suppl 1). LAB BUN 7-21 mg/dL BUN High 22 LAB CRET 0.58-0.96 mg/dL Creatinine High 1.11 LAB NA 136-144 mmol/L Sodium 141 LAB K 3.7-5.1 mmol/L Potassium 3.8 LAB CL 97-105 mmol/L Chloride 104 LAB CO2 22-30 mmol/L CO2 22 LAB AGAP 9-18 mmol/L Anion Gap 15 LAB ALT 7-38 U/L ALT 31 LAB GFRAA eGFR- Amer. >60 LAB GFRNAA . eGFR-All Other Races 55 Result Comment: eGFR (Estimated GFR) Units of measure: mL/min/1.73 meters squared eGFR is derived from the reexpressed MDRD Study equation using the following parameters: serum creatinine, age, gender and race. The creatinine assay has been calibrated to be traceable to IDMS. An eGFR <60 mL/min/1.73m2 for >3 months is consistent with chronic kidney disease. Refer to KDOQI guidelines for clinical interpretation. In patients with unstable renal function, e.g. those with acute kidney injury, the eGFR may not accurately reflect actual GFR. Performed By: #### CBCDIF, CMP, TSH #### [facility] [address] [place], [place] [address] TSH Collected: 05/06/2018 Status: F Source: [place] 3:50 PM [facility] REPOSITORY TYPE CODE TESTS RESULT OUT OF RANGE REFERENCE UNITS LAB TSH 0.400-5.500 uU/mL TSH 2.380 Result Comment: If the patient is , TSH reference range varies by gestational period: First Trimester 0.100-2.500 uU/mL Second Trimester 0.200-3.000 uU/mL Third Trimester 0.300-3.000 uU/mL References: 1. Clancy L, Frandy M, Paras EK, et al. Management of Thyroid Dysfunction during and : An Endocrine Society Clinical Practice Guideline. J Clin Endocrinol Metab, 2012:97:1032-8761. 2. Mychal RAYO. Overview of thyroid disease in . UpToDate. 2016. Accessed on November 10, 2015. Performed By: #### CBCDIF, CMP, TSH #### [facility] [address] [place], [place] [address] PROGRESS Observed: 05/06/2018 Status: COMPLETED Source: [place] 3:11 PM [facility] [place] REPOSITORY HNO ID: [id number] Author: Bill Lou Service: (none) Author Type: Physician Type: Progress Notes Filed: 05/06/2018 3:29 PM Note Text: Patient presents with: Headache HPI: Patient presents today for office visit for an acute visit. Nursing Notes: Agatha Can Ma 05/06/2018 3:06 PM Unsigned HEADACHES: Pt c/o headaches for the last 3 weeks. Mostly on top of head and back of head. She is taking Tylenol for the pain. Tried Imitrex with no relief. Pt went to ER last week for slurring of her words and vision disturbance. Was told she was fine, no stroke. Has a hx of remote migraines. Had been quiet for awhile but has been happening again. Headaches are identical to what she had before. Not currently the worst headache in the past. Had slurring of her words. No imaging done. Not sure labs were done as well. Did have some vision disturbance. She states both eyes became blurred and then went black. Vision is fine now. Did hit her head on a brick wall over a month ago. No LOC. No focal weakness or numbness. No new chest pain or shortness of breath. No seizures. Still following with cardiology and psych. No seizures.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 BILL LOU MD on 05/06/18 12 LEAD ELECTROCARDIOGRAM Observed: 04/28/2018 Status: F Source: [place] 2:55 PM [facility] REPOSITORY [facility] Cardiovascular Services [address] [place] [address] 12 Lead EKG 04/25/18 191 MR#: [id number] Acct: [id number] Name: CHRISSIE CR Rep #: [id number] : 1980 37 From: Satya Lopez MD Attending Dr: Status: DEP ER Ordering Dr: Jaun Singh MD Date: 04/25/18 Location: ED Sex: F C Admitted: Test Reason : STROKE Blood Pressure : / mmHG Vent. Rate : 060 BPM Atrial Rate : 060 BPM P-R Int : 136 ms QRS Dur : 086 ms QT Int : 446 ms P-R-T Axes : 054 054 078 degrees QTc Int : 446 ms Normal sinus rhythm Normal ECG Confirmed by IDPIKA ADAMS, SATYA ([id number]), book or script editor OANH AGARWAL ([id number]) on 04/28/2018 2:55:51 PM Referred By: ISABELLE Confirmed By:SATYA LOPEZ MD 04/28/18 1455 Date Staya Lopez MD CC: Jaun Singh MD; Bill Lou MD Signed EMERGENCY DEPARTMENT Observed: 04/25/2018 Status: F Source: [place] SUMMARY 9:51 PM [facility] REPOSITORY [facility] Medical Records Department [address] [place] [address] Emergency Department Summary 04/25/181919 MR#: [id number] Acct: [id number] Name: CHRISSIE CR Rep #: [id number] : 1980 37 From: Jaun Singh MD PCP: Bill Lou MD Status: DEP ER - ER Visit Summary Date of Service: 04/25/18 Chief Complaint: Elaine like everything was going dark History of Present Illness: The patient is a 37 F history of mitral valve prolapse, fibromyalgia, leiomyosarcoma, bicuspid valve surgery and prior bilateral knee replacements. Patient states she was driving down the road today and felt like everything was going dark. Her son I believe then called the squad who brought her in. Physical Examination: Middle-aged female. No acute distress. Vital signs are stable. She is afebrile. She is in no distress. HEENT exam pupils round reactive light. Extra motions are intact. No facial droop. Normal speech. No signs of trauma to her face or scalp. Nontender. Neck nontender. Trachea midline. No lymphadenopathy. Full range of motion her neck. Able to touch chin to chest. Lungs clear to auscultation bilaterally. Heart regular rate and rhythm no murmur. Rate about 60. Abdomen soft nontender. Normal bowel sounds no peritoneal signs. Patient is moving all 4 extremities. Neurovascular intact. She does have well-healed surgical incisions on her knees from prior replacements. 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 Bilateral dorsi and plantar flexion equal symmetrical 5 out of 5 strength. Neurologically she is awake. She is alert. She answers questions. She follows commands. Her NIH score is 0. Negative to nose within normal limits. She can raise either leg off the bed. Test Results: EKG shows a sinus rhythm rate of 60 no acute abnormality. CBC shows no acute abnormality. BMP shows no acute abnormality. Emergency Department Course and Treatment: Patient is very well-known to this emergency department. She has had multiple prior visits often with extensive but negative workups. Clinically I do not think this is an acute neurologic event. She has a normal exam at this time. On repeat exam patient is doing well at 2021. Her son and another family member present in the room. We discussed her test results. They are comfortable taking her home. Her exam remains normal. Treatment Plan: Follow-up with her primary care physician this week. Disposition: Discharge Impression: Transient mental status change resolved of uncertain etiology. This note was generated with NeuroPace dictation software. It may contain incorrect words, spelling, and punctuation that were not noted in review of the chart prior to signing ED Disposition - Plan for ED Patient: Chief Complaint: Neuro S/Sx Referrals: Bill Lou MD [Primary Care Provider] - What to do if you have Problems For any increased pain, shortness of breath, bleeding, nausea or vomiting, chest pain, or any unexpected problems, contact your Primary Care Provider. Call [facility] ([phone]) or report to the closest Emergency Room. Call 911 if necessary. 04/25/182150 <Electronically signed by Jaun Singh MD> Date Jaun Singh MD Cosigner Signature (If Indicated): Date CC: Bill Lou MD DISCHARGE INSTRUCTION Observed: 04/25/2018 Status: F Source: [place] 9:51 PM [facility] REPOSITORY [facility] Medical Records Department [address] [place] [address] Discharge Instruction 04/25/182023 MR#: [id number] Acct: [id number] Name: CHRISSIE CR Rep #: [id number] : 1980 37 From: Jaun Singh MD PCP: Bill Lou MD Status: [facility] ER ED Disposition - Plan for ED Patient: Disposition: Home or Assisted Living Chief Complaint: Neuro S/Sx Referrals: Bill Lou MD [Primary Care Provider] - As soon as possible Additional Instructions: Your exam and labs are unremarkable today. We do not have a specific cause for your symptoms resolved. Follow-up your doctor this week. What to do if you have Problems For any increased pain, shortness of breath, bleeding, nausea or vomiting, chest pain, or any unexpected problems, contact your Primary Care Provider. Call [facility] ([phone]) or report to the closest Emergency Room. Call 911 if necessary. 04/25/18 2151 <Electronically signed by Jaun Singh MD> Date Jaun Singh MD Cosigner Signature (If Indicated): Date CC: Bill Lou MD BASIC METABOLIC Collected: 04/25/2018 Status: F Source: [facility] ([facility]) 7:23 PM [facility] REPOSITORY TYPE CODE TESTS RESULT OUT OF RANGE REFERENCE UNITS LAB L501.0100 74-106 mg/dL Normal GLU 90 Result Comment: Please note revised GLUCOSE reference range effective 2017. LAB L501.1000 7-18 mg/dL High BUN 21 LAB L501.1100 0.55-1.02 mg/dL High CREAT,SERUM 1.14 Result Comment: The validity of the calculated GFR AND GFRAA in patients over 70 years has not been determined. Clinical correlation is essential. LAB L501.1110 >60 mL/min Low EST GFR 56 Result Comment: Non- GFR Calc LAB L501.1115 >60 mL/min Normal EST GFR - AA 68 Result Comment: GFR Calc LAB L501.1255 ml/min Normal Estimated CRCL 62.02 LAB L501.1300 10-20 RATIO Normal BUN/CRE 18.4 LAB L501.2200 8.5-10 mg/dL Normal .1 CA 8.6 LAB L501.5300 136-14 mmol/L Normal 5 NA 137 LAB L501.5600 3.5-5. mmol/L Normal 1 K 4.0 LAB L501.5900 98-107 mmol/L Normal CL 105 LAB L501.6100 21.0-3 mmol/L Normal 2.0 CO2 24.0 LAB L501.6200 5-15 Normal GAP 8 Performed By: #### L500.2500 #### [facility] [address] [place], [address] CBC W/DIFF, AUTOMATED Collected: 04/25/2018 Status: F Source: [place] 7:23 PM [facility] REPOSITORY TYPE CODE TESTS RESULT OUT OF RANGE REFERENCE UNITS LAB L100.1000 4.4-11.0 K/mm3 Normal WBC 8.5 LAB L100.1200 4.2-5.4 M/mm3 Normal RBC 4.21 LAB L100.1300 12.0-15.0 g/dl Normal HGB 13.0 LAB L100.1400 37-47 % Normal HCT 39.6 LAB L100.1500 81-99 fL Normal MCV 94.1 LAB L100.1600 27.0-32.0 pg Normal MCH 30.9 LAB L100.1700 32-36 g/gl Normal MCHC 32.8 LAB L100.1810 11.6-14.6 % Normal RDW CV 13.0 LAB L100.1820 35.1-43.9 fl High RDW SD 45.0 LAB L100.1900 150-450 K/mm3 Normal PLT 331 LAB L100.2000 6.2-12.0 fl Normal MPV 10.6 LAB L100.2100 47-70 % Normal NEUT% 58.8 LAB L100.2200 19-41 % Normal LY% 29.8 LAB L100.2300 0-10 % Normal MONO% 8.6 LAB L100.2400 0-5 % Normal EO% 2.0 LAB L100.2500 0-1 % Normal BASO% 0.6 LAB L100.2550 0.0-0.9 % Normal IM GRAN % 0.200 Result Comment: IG% - Immature Granulocytes (promyelocytes, myelocytes and metamyelocytes) > 1% indicates that a LEFT SHIFT is Present. LAB L100.2620 2.0-7.7 X10 3/uL Normal Absolute Neut 5.0 LAB L100.2720 0.83-4.51 X10 3/ul Normal Absolute Lymph 2.52 Performed By: #### L100.0100 #### [facility] [address] [place], [address] BEDSIDE GLUCOSE Collected: 04/25/2018 Status: F Source: [place] 7:11 PM [facility] REPOSITORY TYPE CODE TESTS RESULT OUT OF RANGE REFERENCE UNITS LAB L501.080 70-110 mg/dL Normal BEDSIDE GLU 101 Result Comment: Dr Horn Followed MANAGEMENT OF PATIENT CARE PER NURSING PROTOCOL Performed By: #### L501.080 #### [facility] Point of Care [address] [place] [address] PROGRESS Observed: 04/22/2018 Status: COMPLETED Source: [place] 2:59 PM [facility] REPOSITORY HNO ID: [id number] Author: Crissy Munroe LPN Service: (none) Author Type: (none) Type: Progress Notes Filed: 04/22/2018 3:13 PM Note Text: Manual Readin/88 Pulse: 62 Reason for blood pressure check - Last BP elevated Patient is: Taking medication as prescribed Yes Took medication today Yes If no, date medication last taken N/A Experiencing side effects No BP was elevated at last appt 03/11/18. No BP medication changes were made at that time. However, pt states that her Coreg was changed to 12.5mg twice daily in addition to 6.25mg once daily one week ago. Tolerating medication change well. Reports chest pain/palpitations, does have shortness of breath with exertion, daily dizziness, and daily headaches; not treating headaches with anything. Daily caffeine use with soda. Current everyday tobacco use. Alert and oriented. Pt has been identified by name and birthdate: Yes Allergies reviewed: Yes Latex allergy: no. Medication - prescribed and OTC reviewed and updated: Yes Do you need any prescription refills prior to your next visit: No Health Maintenance: Reviewed and not up to date and provider notified Patient advised to continue with current medications and would be contacted with any further instructions after review by PCP. Crissy Munroe LPN CNNURSE Observed: 04/22/2018 Status: COMPLETED Source: [place] 2:45 PM [facility] REPOSITORY Nurse Visit (FAMPWS) SHAYECHRISSIE Mikhail ([id number]) 1980 F HPR Date Time Provider Department 04/22/18 2:45 PM [place] NURSE SAADIA During your visit today, we recorded the following information about you: Pulse Blood pressure 62/minute 132/88 Crissy Munroe LPN 04/22/2018 3:13 PM Signed Manual Readin/88 Pulse: 62 Reason for blood pressure check - Last BP elevated Patient is: Taking medication as prescribed Yes Took medication today Yes If no, date medication last taken N/A Experiencing side effects No BP was elevated at last appt 03/11/18. No BP medication changes were made at that time. However, pt states that her Coreg was changed to 12.5mg twice daily in addition to 6.25mg once daily one week ago. Tolerating medication change well. Reports chest pain/palpitations, does have shortness of breath with exertion, daily dizziness, and daily headaches; not treating headaches with anything. Daily caffeine use with soda. Current everyday tobacco use. Alert and oriented. Pt has been identified by name and birthdate: Yes Allergies reviewed: Yes Latex allergy: no. Medication - prescribed and OTC reviewed and updated: Yes Do you need any prescription refills prior to your next visit: No Health Maintenance: Reviewed and not up to date and provider notified Patient advised to continue with current medications and would be contacted with any further instructions after review by PCP. Crissy Munroe LPN Referring Provider: BILL LOU [[id number]] Allergies As of Date: 04/22/2018 Noted Allergy Reaction ERYTHROMYCIN 09/26/2005 11 - Vomiting AMITRIPTYLINE 05/29/2015 14 - Other: See Comments Comments: sweating AMOXICILLIN 12/02/2000 2 - Rash Comments: REACTION WHEN SHE WAS A CHILD BENADRYL (DIPHENHYDRAMINE HCL) 12/14/2013 14 - Other: See Comments Comments: Muscle spasms CELECOXIB 14 - Other: See Comments CYMBALTA (DULOXETINE) 04/11/2014 14 - Other: See Comments Comments: Worsened depression LEVAQUIN (LEVOFLOXACIN) 04/16/2016 4 - Hives Comments: bilsters over entire body MELOXICAM 10/16/2012 5 - Intolerance Comments: Caused pt to have restless legs and arms SAVELLA (MILNACIPRAN) 05/29/2015 14 - Other: See Comments Comments: Elevated BP, ? rhabdomyolysis TYLENOL (ACETAMINOPHEN) 09/30/2012 8 - GI Upset Date Reviewed: 04/07/2018 Reviewed by: Baldomero Mckeon) MARILU Muse - Fully Assessed Reason for Visit: Blood Pressure Check [195] Primary Visit Diagnosis:Essential hypertension [I10] Prescriptions as of 04/22/2018 Sig: CARVEDILOL 6.25 MG TABLET Take 6.25 mg by mouth once da* TIZANIDINE 4 MG TABLET Take 1 tablet by mouth every * FLUOXETINE 20 MG CAPSULE Take 20 mg by mouth once mariel* FUROSEMIDE 20 MG TABLET Take 20 mg by mouth once mariel* OXAPROZIN 600 MG TABLET Take 2 tablets by mouth once * FLUOXETINE 40 MG CAPSULE Take 40 mg by mouth once mariel* MIRTAZAPINE 15 MG TABLET Take 15 mg by mouth daily at * FAMOTIDINE 20 MG TABLET Take 1 tablet by mouth twice * COMPOUNDED PRESCRIPTION Nebulizer ALBUTEROL SULFATE 2.5 MG/3 ML* Use 3 mL via nebulizer every * CARVEDILOL 6.25 MG TABLET Take 1 tablet by mouth twice * Patient taking differently: Take 12.5 mg by mouth twice d* MEDROXYPROGESTERONE 150 MG/ML* INJECT 1ML INTRAMUSCULARLY EV* MONTELUKAST 10 MG TABLET Take 1 tablet by mouth daily * LEVETIRACETAM 750 MG TABLET Take 2 tablets by mouth twice* CLONAZEPAM 0.5 MG TABLET Take 0.5 mg by mouth at bedti* ALBUTEROL SULFATE HFA 90 MCG/* Inhale 2 Puffs as instructed * COMPOUNDED PRESCRIPTION BLOOD PRESSURE CUFF FOR HOME * PREGABALIN 150 MG CAPSULE Take 1 capsule by mouth twice* Problem List As Of Date 04/22/2018 Noted Resolved 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 disorder [I35.9] Priority: A SUPERVIS OTHER NORMAL PREG [Z34.80] INVALID FOR*02/10/2008 THREATEN ABORT-ANTEPART [O20.0] INVALID FOR*02/10/2008 Migraine, unspecified, without mention of intra*INVALID FOR* Priority: A 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 DDD (degenerative disc disease), lumbar [M51.36]INVALID FOR* Priority: D More... Genital warts [A63.0] INVALID FOR* Priority: E SI (sacroiliac) joint dysfunction [M53.3] INVALID FOR*07/12/2015 Priority: D SI joint arthritis [M46.98] INVALID FOR* Priority: D Edema [R60.9] INVALID FOR* Priority: A Exercise-induced asthma [J45.990] INVALID FOR* Priority: A GERD (gastroesophageal reflux disease) [K21.9] INVALID FOR* Priority: A HTN (hypertension) [I10] INVALID FOR* Priority: A Elevated LFTs [R94.5] INVALID FOR* Controlled substance agreement signed [Z79.899] INVALID FOR* Dysphagia [R13.10] INVALID FOR* Severe episode of recurrent major depressive di*INVALID FOR* More... 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] More... Primary osteoarthritis of both knees [M17.0] INVALID FOR* S/p total knee replacement, bilateral [Z96.653] INVALID FOR* Right leg DVT (HCC) [I82.401] INVALID FOR* More... Pulmonary emboli (HCC) [I26.99] INVALID FOR* More... Lacunar infarct, acute (HCC) [I63.81] INVALID FOR* More... 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 Radiculopathy,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 [M54.16] INVALID FOR* More... Encounter Status:Closed by CRISSY MUNROE LPN on 04/22/18 CT CHEST (PE PROTOCOL) Observed: 04/14/2018 Status: F Source: [facility] 6:09 PM [place] [address] Patient: CHRISSIE CR Phone#: : 1980 Age: 37 Gender: F Pt. Type: ER Account: [id number] Location: 052 Ordering: DR. ERIN YBARRA Exam Date: 04/14/2018/17:57 Family Phys: BILL LOU Charge Code: [id number] Physician: Ellis Order #: [id number] DLP Dose#: PROCEDURE: CT CHEST WITH CONTRAST FOR PE COMPARISON: [facility], CT, CHEST PE W CON, 01/11/2017, 11:47. INDICATIONS: Chest pain TECHNIQUE: After obtaining the patient's consent, CT images were obtained with non-ionic intravenous contrast material. Multi-planar images were created to optimize visualization of vascular anatomy with MPR/MIPS and 3D imaging. All CT scans at this facility use dose modulation, iterative reconstruction, and/or weight based dosing when appropriate to reduce radiation dose to as low as reasonably achievable. IV CONTRAST: Omnipaque 350,74ml TOTAL DOSE: 8.5 CTDIvol(mGy) FINDINGS: VASCULATURE: Normal. No visible pulmonary arterial thrombus or attenuation. AORTA: Normal. No aneurysm or dissection. LUNGS: Mild patchy groundglass density in the prior exam. May be related to chronic interstitial change. NEYDA: Normal. No mass or adenopathy. MEDIASTINUM: Normal. No mass or adenopathy. CARDIAC: Cardiomegaly similar to prior exam. PLEURA: Normal. No mass or effusion. CHEST WALL: Normal. No mass or axillary adenopathy. LIMITED ABDOMEN: Normal. Limited images of the upper abdomen are unremarkable. BONES: Sternotomy sutures are present. OTHER: Negative. CONCLUSION: Continued Report - Page 2 of 2 Patient: CHRISSIE CR Phone#: : 1980 Age: 37 Gender: F Pt. Type: ER Account: [id number] Location: 052 Ordering: DR. ERIN YBARRA Exam Date: 04/14/2018/17:57 Family Phys: BILL LOU Charge Code: [id number] Physician: Ellis Order #: [id number] DLP Dose#: 1. There is no evidence of pulmonary embolus. 2. There has been no significant change since previous exam. Dictated by: Jaime Mason MD on 04/14/2018 at 18:15 Approved by: Jaime Mason MD on 04/14/2018 at 18:15 CBC Collected: 04/14/2018 Status: F Source: [place] 5:12 PM [facility] REPOSITORY TYPE CODE TESTS RESULT OUT OF RANGE REFERENCE UNITS LAB CBC(LOINC) CBC Result Comment: CBC-COMPLETE BLOOD COUNT LAB WBC(LOINC) 4.5 - 10.8 x 10EE3/UL WBC High 11.2 LAB RBC(LOINC) 4.10 - x 10EE6/UL 5.30 RBC 4.33 LAB HEMOGLOBIN(LOINC 12.0 - g/dl ) 16.0 HEMOGLOBIN 13.8 LAB HEMATOCRIT(LOINC 34.0 - % ) 46.0 HEMATOCRIT 39.6 LAB MCV(LOINC) 80 - 99 fl MCV 92 LAB MCH(LOINC) 27 - 33 pg MCH 32 LAB MCHC(LOINC) 32 - 36 X10 3 MCHC 35 LAB RDW/CV(LOINC) 12.0 - % 15.6 RDW/CV 13.4 LAB PLATELET(LOINC) 150 - 450 x10EE3/UL PLATELET 368 LAB MPV(LOINC) 6.6 - 10.5 fl MPV 9.2 Result Comment: AUTOMATED DIFFERENTIAL LAB NEUT %(LOINC) 46.0 - 76.0 % NEUT % 66.5 LAB LYMPH %(LOINC) 20.0 - 45.0 % LYMPH % 21.1 LAB MONOS %(LOINC) 0.0 - 10.0 % MONOS % 9.0 LAB EO %(LOINC) 0.0 - 7.0 % EO % 2.4 LAB BASO %(LOINC) 0.0 - 2.0 % BASO % 1.0 LAB Lymph #(LOINC) 0.80 - 2.80 x10EE3/U L Lymph # 2.40 LAB Neut #(LOINC) 1.50 - 7.10 x10EE3/U L Neut # High 7.50 LAB Payne #(LOINC) 0.20 - 1.00 x10EE3/U L Payne # 1.00 LAB EO #(LOINC) 0.00 - 0.50 x10EE3/U L EO # 0.30 LAB Baso #(LOINC) 0.00 - 0.10 x10EE3/U L Baso # 0.10 LAB MANUAL DIFF(LOINC) MANUAL DIFF N/A LAB MORPHOLOGY(INC ) MORPHOLOGY N/A Result Comment: {CD] Performed By: #### [id number] #### [facility],[address] [place] [address] BMP WITH EGFR Collected: 04/14/2018 Status: F Source: [facility] 5:12 PM [facility] REPOSITORY TYPE CODE TESTS RESULT OUT OF RANGE REFERENCE UNITS LAB BMP with eGFR(INC) BMP with eGFR Result Comment: BASIC METABOLIC PANEL LAB SODIUM(LOINC) 136 - 145 mmol/l SODIUM 138 LAB POTASSIUM(LOINC) 3.5 - 5.1 mmol/L POTASSIUM 4.0 LAB CHLORIDE(LOINC) 98 - 107 mmol/L CHLORIDE 105 LAB CO2(LOINC) 21.0 - mmol/L 31.0 CO2 23.0 LAB GLUCOSE(LOINC) 74 - 106 mg/dl GLUCOSE 84 LAB BUN(LOINC) 6 - 20 mg/dl BUN High 22 LAB CREATININE(LOINC) 0.6 - 1.2 mg/dl CREATININE 1.0 LAB CALCIUM(LOINC) 8.6 - mg/dl 10.2 CALCIUM 9.7 LAB ANION GAP(LOINC) 10 - 20 mmol/L ANION GAP 14 LAB AGE(LOINC) years AGE 37 LAB eGFR(LOINC) 60 - 999 ML/MINUTE eGFR >60 LAB eGFR(AA)(LOINC) 60 - 999 ML/MINUTE eGFR(AA) >60 Result Comment: ACCORDING TO THE NATIONAL KIDNEY DISEASE EDUCATION PROGRAM(NKDE), A NORMAL eGFR IS A VALUE GREATER THAN OR EQUAL TO 60 ML/MIN/1.73 SQ METERS. CHRONIC KIDNEY DISEASE: <60mL/MIN/1.73 SQ METERS KIDNEY FAILURE: <15mL/MIN/1.73 SQ METERS THIS TEST SHOULD ONLY BE USED FOR PATIENTS 18 YEARS OF AGE AND OLDER. Performed By: #### [id number] #### [place] [address] BNP (B-TYPE NATRIURETIC Collected: 04/14/2018 Status: F Source: [facility] [place]) 5:12 PM [facility] REPOSITORY TYPE CODE TESTS RESULT OUT OF RANGE REFERENCE UNITS LAB BNP(LOINC) 1 - 100 pg/ml BNP 14 Performed By: #### [id number] #### [place] [address] DRUG SCREEN URINE Collected: 04/14/2018 Status: F Source: [facility] 4:57 PM [facility] REPOSITORY TYPE CODE TESTS RESULT OUT OF REFERENCE UNITS RANGE LAB DRUG SCREEN URINE MEDIC(LOINC) DRUG SCREEN URINE MEDIC Result Comment: DRUG SCREEN - URINE LAB PCP(LOINC) PCP NEG LAB COCAINE(LOINC) COCAINE NEG LAB OPIATES(LOINC) OPIATES NEG LAB AMPHETAMINES(LOINC ) AMPHETAMINES NEG LAB B-DIAZEPINES(LOINC ) B-DIAZEPINES POS LAB TCA(LOINC) TCA NEG LAB METHADONE(LOINC) METHADONE NEG LAB BARBITURATES(LOINC ) BARBITURATES NEG LAB THC(LOINC) THC NEG Result Comment: PATIENTS RECEIVING PROTON PUMP INHIBITORS MAY DEMONSTRATE FALSE POSITIVE THC/CANNABINOID RESULTS. AN ALTERNATIVE CONFIRMATORY METHOD SHOULD BE CONSIDERED TO VERIFY POSITIVE RESULTS. Performed By: #### [id number] #### [place] [address] CHEST 1 VIEW Observed: 04/14/2018 Status: F Source: [facility] 4:41 PM [place] [address] Patient: CHRISSIE CR Phone#: : 1980 Age: 37 Gender: F Pt. Type: ER Account: [id number] Location: [facility] Ordering: DR. ERIN YBARRA Exam Date: 04/14/2018/16:29 Family Phys: BILL LOU Charge Code: [id number] Physician: Ellis Order #: [id number] DLP Dose#: PROCEDURE: X-RAY CHEST 1 VIEW COMPARISON: [facility], XR, CHEST 1 VIEW, 09/18/2017, 19:51. INDICATIONS: Chest pain FINDINGS: LUNGS: mild VASCULATURE: Normal. Unremarkable pulmonary vasculature. CARDIAC: Normal. No cardiac silhouette abnormality or cardiomegaly. MEDIASTINUM: Normal. No visible mass or adenopathy. PLEURA: Normal. No effusion or pleural thickening. BONES: Normal. No fracture or visible bony lesion. OTHER: Sternotomy sutures are present. CONCLUSION: No acute disease. No significant change has occurred. Dictated by: Jaime Mason MD on 04/14/2018 at 16:44 Approved by: Jaime Mason MD on 04/14/2018 at 16:44 CBC AND DIFFERENTIAL Collected: 04/13/2018 Status: F Source: [place] 4:00 PM [facility] REPOSITORY TYPE CODE TESTS RESULT OUT OF REFERENCE UNITS RANGE LAB WBC 3.70-11.00 k/uL WBC 8.80 LAB RBC 3.90-5.20 m/uL RBC 4.29 LAB HGB 11.5-15.5 g/dL Hemoglobin 13.1 LAB HCT 36.0-46.0 % Hematocrit 40.6 LAB MCV 80.0-100.0 fL MCV 94.6 LAB MCH 26.0-34.0 pG MCH 30.5 LAB MCHC 30.5-36.0 g/dL MCHC 32.3 LAB RDWCV 11.5-15.0 % RDW-CV 12.9 LAB PLTCT 150-400 k/uL Platelet Count 362 LAB MPV 9.0-12.7 fL MPV 11.2 LAB ANEUT % Neut% 64.9 LAB AANEUT 1.45-7.50 k/uL Abs Neut 5.72 LAB ALYMP % Lymph% 22.3 LAB AALYMP 1.00-4.00 k/uL Abs Lymph 1.96 LAB AMONO % Payne% 8.9 LAB AAMONO <0.87 k/uL Abs Payne 0.78 LAB AEOS % Eosin% 3.1 LAB AAEOS <0.46 k/uL Abs Eosin 0.27 LAB ABASO % Baso% 0.8 LAB AABASO <0.11 k/uL Abs Baso 0.07 LAB AUNRBC 0 /100 WBC NRBCs 0.0 LAB ABNRBC <0.01 k/uL Absolute nRBC <0.01 LAB DTYP DTYPE Auto Diff Performed By: #### CBCDIF, WSR, CMP, CRP #### [facility] [address] [place], [place] [address] SED RATE WESTERGREN Collected: 04/13/2018 Status: F Source: [place] 4:00 PM [facility] REPOSITORY TYPE CODE TESTS RESULT OUT OF REFERENCE UNITS RANGE LAB WSR 0-20 mm/hr Sed Rate Westergren 9 Performed By: #### CBCDIF, WSR, CMP, CRP #### [facility] [address] [place], [place] [address] COMP METABOLIC PANEL Collected: 04/13/2018 Status: F Source: [place] 4:00 [facility] REPOSITORY TYPE CODE TESTS RESULT OUT OF REFERENCE UNITS RANGE LAB TP 6.3-8.0 g/dL Protein, Total 7.5 LAB ALB 3.9-4.9 g/dL Albumin 4.6 LAB CA 8.5-10.2 mg/dL Calcium, Total 9.6 LAB TBIL 0.2-1.3 mg/dL Bilirubin, Total 0.3 LAB ALKP 34-123 U/L Alkaline Phosphatase 67 LAB AST 13-35 U/L AST 29 LAB GLU 74-99 mg/dL Glucose 92 Result Comment: The [place] Diabetes Association (ADA) provides guidance for cutoff values for fasting glucose and random glucose. The ADA defines fasting as no caloric intake for at least 8 hours. Fas ting plasma glucose results between 100 to 125 mg/dL indicate increased risk for diabetes (prediabetes). Fasting plasma glucose results greater than or equal to 126 mg/dL meet the criteria for diagnosis of diabetes. In the absence of unequivocal hyperglycemia, results should be confirmed by repeat testing. In a patient with classic symptoms of hyperglycemia or hyperglycemic crisis, random plasma glucose results greater than or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 (Fatty Liver) Mother - other (epilepsy) Mother - other (back pain) Mother spinal stimulator - other (back pain) Father pain pump - other (kidney stones) Father paternal uncle and grandmother also - Coronary Artery Disease Maternal Grandmother - COPD Maternal Grandmother - Diabetes Maternal Grandmother - COPD Maternal Grandfather - other (Lung cancer) Maternal Grandfather at 68 - other (Thyroid nodules, skin bumps) Paternal Grandmother - other (Bone cancer) Paternal Grandfather at 50 - other (uterine fibroids) Maternal Aunt BINDU @ 18 - other (Uterine Fibroids) Maternal Aunt BINDU - other (HLRCC) Paternal Uncle - other (HLRCC) Other Paternal Cousin Social History Social History Main Topics - Smoking status: Never Smoker - Smokeless tobacco: Never Used - Alcohol use Yes Comment: Occasionally, 3-4 drinks per year - Drug use: No - Sexual activity: Not Currently Partners: Male ALLERGIES Allergen Reactions - Erythromycin Vomiting - Amitriptyline Other: See Comments sweating - Amoxicillin Rash REACTION WHEN SHE WAS A CHILD - Benadryl [Diphenhyd* Other: See Comments Muscle spasms - Celecoxib Other: See Comments - Cymbalta [Duloxetin* Other: See Comments Worsened depression - Levaquin [Levofloxa* Hives bilsters over entire body - Meloxicam Intolerance Caused pt to have restless legs and arms - Savella [Milnacipra* Other: See Comments Elevated BP, ? rhabdomyolysis - Tylenol [Acetaminop* GI Upset Review of Systems Constitutional: Negative. HENT: Negative. Respiratory: Negative for shortness of breath. Cardiovascular: Positive for chest pain. Negative for syncope. Gastrointestinal: Negative for abdominal pain and vomiting. Genitourinary: Negative. Neurological: Negative for weakness. All other systems reviewed and are negative. Physical Exam BP 155/87 Pulse 70 Temp 97 Resp 16 Ht 5' 3 (1.60m) Wt 190 lb (86.2kg) SpO2 100% BMI 33.67 kg/(m2). Physical Exam Constitutional: She is oriented to person, place, and time. She appears well-developed and well-nourished. HENT: Head: Normocephalic and atraumatic. Eyes: Right eye exhibits no discharge. Left eye exhibits no discharge. Neck: No JVD present. No thyromegaly present. Cardiovascular: Normal rate and regular rhythm. Exam reveals no gallop and no friction rub. Murmur heard. Pulmonary/Chest: Effort normal and breath sounds normal. No respiratory distress. She has no wheezes. She has no rales. Abdominal: Soft. She exhibits no distension and no mass. There is no tenderness. There is no rebound and no guarding. Musculoskeletal: She exhibits no edema or tenderness. Lymphadenopathy: She has no cervical adenopathy. Neurological: She is alert and oriented to person, place, and time. Skin: Skin is warm and dry. Psychiatric: She has a normal mood and affect. Her behavior is normal. Judgment and thought content normal. Nursing note and vitals reviewed. Diagnostic Testing ED Labs Ordered and Reviewed - No data to display Procedures ED Course / Clinical Impression Clinical Impressions as of Mar 12 2039 Chest pain, unspecified type Positive D dimer MDM / Disposition / Plan 37 year old female pt with PMH of chronic pain, HTN, DVT, PE, and aortic valve repair presents with left sided chest pain while driving today. Pt with mild hypertension in her vitals, and no fever, or tachycardia. EKG 13:45 SR rate 68, with normal intervals,no stemi, no axis deviation, no ectopy Review of medical record. 01/16 Stress test, no evidence of inducible cardiac ischemia. 02/05 Cardiac Cath, normal coronary arteries. Pt given ASA in the ED. Labs with normal electrolytes, no leukocytosis, normal Hgb, and negative troponin. CXR also without acute findings. SIGNATURE: MD Gela Bergman MD 03/12/18 1355 Gela Hall MD 03/12/18 1506 Gela Hall MD 03/12/18 1508 Gela Hall MD 03/12/18 1514 Gela Hall MD 03/12/18 2040 PROGRESS Observed: 03/12/2018 Status: COMPLETED Source: [place] 11:17 AM [facility] REPOSITORY HNO ID: [id number] Author: Geraldine Sharp (Ramon Jauregui Service: (none) Author Type: Nurse Practitioner Type: Progress Notes Filed: 03/12/2018 11:47 AM Note Text: SUBJECTIVE: Chrissie Cr presents to [facility] Pain Management Department for a followup appointment for low back pain. Since the last visit, Chrissie Cr states the pain has been getting worse. Current pain intensity is 8 on a scale of 0-10. Pain located in Back area and does not radiate. Pain described as aching The patient Reports morning stiffness. Symptoms interfere with physical activity and work. Pain is exacerbated by standing, forward flexion, lifting, getting up from sitting and walking. Pain is mitigated by medications. The medications are effective. The patient states the last dose of Lyrica/pregabalin was taken this morning. REVIEW OF SYSTEMS: Constitutional: (-) Fever (+) Night Sweats (-) Weight Gain (-) Weight Loss (+) Fatigue Cardiovascular: (-) Chest Pain (-) Palpitations (-) Lightheadedness (+) Swelling of Ankles (+) Hx Heart Surgery Respiratory: (-) Shortness of Breath (-) Cough (+) Wheezing (-) Snoring Gastrointestinal: (-) Incontinence (-) Abdominal Pain (-) Diarrhea (-) Constipation (-) Nausea/Vomiting (+) Heart Burn Endocrine: (-) Thyroid Disorder (-) Diabetes Hematologic: (-) Prolonged Bleeding (-) Easy Bruising Genitourinary: (-) Incontinence (-) Frequency (-) Urinary Urgency Skin: (-) Rashes (-) Itching (-) Other Lesions Neurologic: (+) Headache (-) Double Vision (-) Confusion (-) Paralysis Psychiatric: (-) Depression (+) Anxiety (-) Delusions (-) Hallucinations (-) Personal History of Alcohol or Substance Abuse (-) Family History of Alcohol or Substance Abuse OBJECTIVE: Pulse 79 Wt 197 lb (89.4kg) SpO2 97% PHYSICAL EXAMINATION: General appearance: Well appearing, in no acute distress, alert Skin: Skin color, texture, turgor normal, no rashes or lesions Neck: No pain to palpation over the cervical paraspinous muscles. No pain with neck flexion, extension, or lateral flexion Cardiovascular: Regular rate Lungs: Normal respiratory rate and rhythm Abdomen: Abdomen soft and non-tender. Back: Intact range of motion with pain reproduction. Straight Leg Raise: sitting bilateral SI JOINT: bilateral PSIS tenderness, neg Rodolfo's, neg Sacral thrust. Spine: Reports Tenderness on palpation: Lumbar/Pelvic right L5-S1 Extremities: No deformities, edema, or skin discoloration. Good capillary refill. Musculoskeletal: Joint pain denies Neuro: No loss of sensation is noted. Station and Gait: Normal stance, normal gait. Motor: Exhibits full strength in all four extremities. Trigger points: none. ASSESSMENT: Assessment : Patient reports increased lower back pain, bilateral SI tenderness and left anterior thigh radicular symptoms to the level of the knee She has done well with bilateral SI injections. Insurance will not cover the cold SI RFA's, they consider experimental. She had the ablations a few years ago and it lasted a few years. 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 She reports she does wear sneakers She has tried and failed Cymbalta, Elavil, Topamax, and gabapentin. She is currently on Lyrica 150 mg twice a day and Zanaflex 4 mg 3 times a day I have done a total of 4 short scripts for Percocet 5/325 mg #28 pills in September, October, December, January. OARRS shows multiple short scripts from various providers. I discussed that I cannot continue to write short scripts for benign pain. Patient may benefit from counseling to help with coping skills related to chronic pain. Recommend daily stretching, exercise and walking Today we discussed a few options: 1. Chronic pain rehabilitation program, 2. Integrative medicine program, 3 . Consult to spine surgery for further evaluation. Encounter Diagnosis ICD-10-CM 1. DDD (degenerative disc disease), lumbar M51.36 2. 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 Chronic SI joint pain M53.3 G89.29 PDMP website checked and validated. All prescriptions have been APPROPRIATELY filled. No suspicious activity was identified. 03/12/2018 by Kinjal Villarreal MA Narcotic Agreement reviewed and signed?: N/A on March 12, 2018 Urine Panel: Lab Results Component Value Date Cannabinoid Quant, Urine <16 12/12/2017 Benzoylecognine Quant, Urine <24 12/12/2017 6-Acetylmorphine Quant, Urine <5 12/12/2017 Amphetamine Quant, Urine <5 12/12/2017 Methamphetamine Quant, Urine <8 12/12/2017 Methamphetamine, Urine Non-Detected 01/20/2018 Buprenorphine Quant, Urine <20 12/12/2017 Norbuprenorphine Quant, Urine <20 12/12/2017 Methadone Quant, Urine <16 12/12/2017 EDDP Quant, Urine <6 12/12/2017 Tramadol Quant, Urine <25 12/12/2017 Desmethyltramadol Quant, Urine <20 12/12/2017 Fentanyl Quant, Urine <6 12/12/2017 Norfentanyl Quant, Urine <6 12/12/2017 Codeine Quant, Urine <11 12/12/2017 Morphine Quant, Urine <10 12/12/2017 Dihydrocodeine Quant, Urine <5 12/12/2017 Hydrocodone Quant, Urine <8 12/12/2017 Oxycodone Quant, Urine <10 (H) 12/12/2017 Hydromorphone Quant, Urine <5 12/12/2017 Oxymorphone Quant, Urine <5 12/12/2017 Creatinine,Ur Pain Anaya 133.6 12/12/2017 Urine pH, Pain Anaya 6.5 12/12/2017 Specific [place],Ur Pain Anaya 1.015 12/12/2017 Oxidants,Ur <38 12/12/2017 Specimen Quality, Ur Pain Anaya Possible sample dilution indicated. 06/12/2015 The pain panel was Reviewed - No inconsistencies noted. Discussion: A discussion was entertained regarding multicomponent back pain source. Discussed conservative options and focus on improvement of function. Discussed the rationale behind interventional approach and how it can facilitate improvement of pain but also diagnostic information that procedures provide. USP use of any opioid pain medication is discouraged in chronic benign pain. PLAN: Injection history was reviewed. Medication use and compliance were reviewed. 1. I do not recommend opioid pain medications for this condition.The patient understands that I will not provide further prescriptions for opioids 2. Continue Lyrica 150 mg twice a day and Zanaflex 4 mg 3 times a day, prn 3. Interventional procedure options discussed. Ordered and schedule left L5-S1 transforaminal injection 4. encouraged daily exercises, stretching, and walking 5. Discussed chronic rehabilitation program vs integrative medicine vs surgical consult for further evaluation 6) F/U in 2 months This note was partially generated using [employer] voice recognition system. Electronically Signed: Geraldine Jauregui APRN.FILIBERTO March 12, 2018 11:44 AM The above plan and management options were discussed at length with patient. Patient is in agreement with the above and verbalized understanding. Geraldine Jauregui APRN, FILIBERTO March 12, 2018 CNOV Observed: 03/12/2018 Status: COMPLETED Source: [place] 11:00 AM [facility] RE[facility] Office Visit (PNMDNA) CHRISSIE CR ([id number]) 1980 F H[facility] Date Time Provider Department 03/12/18 11:00 AM GERALDINE JAUREGUI ([facility]) PNMDNA During your visit today, we recorded the following information about you: Pulse Weight 79/minute 89.4 kg Geraldine Jauregui APRN.CNP 03/12/2018 11:47 AM Signed SUBJECTIVE: Chrissie Cr presents to [facility] Management Department for a followup appointment for low back pain. Since the last visit, Chrissie Cr states the pain has been getting worse. Current pain intensity is 8 on a scale of 0-10. Pain located in Back area and does not radiate. Pain described as aching The patient Reports morning stiffness. Symptoms interfere with physical activity and work. Pain is exacerbated by standing, forward flexion, lifting, getting up from sitting and walking. Pain is mitigated by medications. The medications are effective. The patient states the last dose of Lyrica/pregabalin was taken this morning. REVIEW OF SYSTEMS: Constitutional: (-) Fever (+) Night Sweats (-) Weight Gain (-) Weight Loss (+) Fatigue Cardiovascular: (-) Chest Pain (-) Palpitations (-) Lightheadedness (+) Swelling of Ankles (+) Hx Heart Surgery Respiratory: (-) Shortness of Breath (-) Cough (+) Wheezing (-) Snoring Gastrointestinal: (-) Incontinence (-) Abdominal Pain (-) Diarrhea (-) Constipation (-) Nausea/Vomiting (+) Heart Burn Endocrine: (-) Thyroid Disorder (-) Diabetes Hematologic: (-) Prolonged Bleeding (-) Easy Bruising Genitourinary: (-) Incontinence (-) Frequency (-) Urinary Urgency Skin: (-) Rashes (-) Itching (-) Other Lesions Neurologic: (+) Headache (-) Double Vision (-) Confusion (-) Paralysis Psychiatric: (-) Depression (+) Anxiety (-) Delusions (-) Hallucinations (-) Personal History of Alcohol or Substance Abuse (-) Family History of Alcohol or Substance Abuse OBJECTIVE: Pulse 79 Wt 197 lb (89.4kg) SpO2 97% PHYSICAL EXAMINATION: General appearance: Well appearing, in no acute distress, alert Skin: Skin color, texture, turgor normal, no rashes or lesions Neck: No pain to palpation over the cervical paraspinous muscles. No pain with neck flexion, extension, or lateral flexion Cardiovascular: Regular rate Lungs: Normal respiratory rate and rhythm Abdomen: Abdomen soft and non-tender. Back: Intact range of motion with pain reproduction. Straight Leg Raise: sitting bilateral SI JOINT: bilateral PSIS tenderness, neg Rodolfo's, neg Sacral thrust. Spine: Reports Tenderness on palpation: Lumbar/Pelvic right L5-S1 Extremities: No deformities, edema, or skin discoloration. Good capillary refill. Musculoskeletal: Joint pain denies Neuro: No loss of sensation is noted. Station and Gait: Normal stance, normal gait. Motor: Exhibits full strength in all four extremities. Trigger points: none. ASSESSMENT: Assessment : Patient reports increased lower back pain, bilateral SI tenderness and left anterior thigh radicular symptoms to the level of the knee She has done well with bilateral SI injections. Insurance will not cover the cold SI RFA's, they consider experimental. She had the ablations a few years ago and it lasted a few years. 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 She reports she does wear sneakers She has tried and failed Cymbalta, Elavil, Topamax, and gabapentin. She is currently on Lyrica 150 mg twice a day and Zanaflex 4 mg 3 times a day I have done a total of 4 short scripts for Percocet 5/325 mg #28 pills in September, October, December, January. OARRS shows multiple short scripts from various providers. I discussed that I cannot continue to write short scripts for benign pain. Patient may benefit from counseling to help with coping skills related to chronic pain. Recommend daily stretching, exercise and walking Today we discussed a few options: 1. Chronic pain rehabilitation program, 2. Integrative medicine program, 3 . Consult to spine surgery for further evaluation. Encounter Diagnosis ICD-10-CM 1. DDD (degenerative disc disease), lumbar M51.36 2. 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 Chronic SI joint pain M53.3 G89.29 PDMP website checked and validated. All prescriptions have been APPROPRIATELY filled. No suspicious activity was identified. 03/12/2018 by Kinjal Villarreal MA Narcotic Agreement reviewed and signed?: N/A on March 12, 2018 Urine Panel: Lab Results Component Value Date Cannabinoid Quant, Urine <16 12/12/2017 Benzoylecognine Quant, Urine <24 12/12/2017 6-Acetylmorphine Quant, Urine <5 12/12/2017 Amphetamine Quant, Urine <5 12/12/2017 Methamphetamine Quant, Urine <8 12/12/2017 Methamphetamine, Urine Non-Detected 01/20/2018 Buprenorphine Quant, Urine <20 12/12/2017 Norbuprenorphine Quant, Urine <20 12/12/2017 Methadone Quant, Urine <16 12/12/2017 EDDP Quant, Urine <6 12/12/2017 Tramadol Quant, Urine <25 12/12/2017 Desmethyltramadol Quant, Urine <20 12/12/2017 Fentanyl Quant, Urine <6 12/12/2017 Norfentanyl Quant, Urine <6 12/12/2017 Codeine Quant, Urine <11 12/12/2017 Morphine Quant, Urine <10 12/12/2017 Dihydrocodeine Quant, Urine <5 12/12/2017 Hydrocodone Quant, Urine <8 12/12/2017 Oxycodone Quant, Urine <10 (H) 12/12/2017 Hydromorphone Quant, Urine <5 12/12/2017 Oxymorphone Quant, Urine <5 12/12/2017 Creatinine,Ur Pain Anaya 133.6 12/12/2017 Urine pH, Pain Anaya 6.5 12/12/2017 Specific [place],Ur Pain Anaya 1.015 12/12/2017 Oxidants,Ur <38 12/12/2017 Specimen Quality, Ur Pain Anaya Possible sample dilution indicated. 06/12/2015 The pain panel was Reviewed - No inconsistencies noted. Discussion: A discussion was entertained regarding multicomponent back pain source. Discussed conservative options and focus on improvement of function. Discussed the rationale behind interventional approach and how it can facilitate improvement of pain but also diagnostic information that procedures provide. 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 PLAN: Injection history was reviewed. Medication use and compliance were reviewed. 1. I do not recommend opioid pain medications for this condition.The patient understands that I will not provide further prescriptions for opioids 2. Continue Lyrica 150 mg twice a day and Zanaflex 4 mg 3 times a day, prn 3. Interventional procedure options discussed. Ordered and schedule left L5-S1 transforaminal injection 4. encouraged daily exercises, stretching, and walking 5. Discussed chronic rehabilitation program vs integrative medicine vs surgical consult for further evaluation 6) F/U in 2 months This note was partially generated using [employer] voice recognition system. Electronically Signed: Geraldine aJuregui APRN.FILIBERTO March 12, 2018 11:44 AM The above plan and management options were discussed at length with patient. Patient is in agreement with the above and verbalized understanding. Geraldine Jauregui APRN, FILIBERTO March 12, 2018 Referring Provider: SELF [[id number]] Allergies As of Date: 03/12/2018 Noted Allergy Reaction ERYTHROMYCIN 09/26/2005 11 - Vomiting AMITRIPTYLINE 05/29/2015 14 - Other: See Comments Comments: sweating AMOXICILLIN 12/02/2000 2 - Rash Comments: REACTION WHEN SHE WAS A CHILD BENADRYL (DIPHENHYDRAMINE HCL) 12/14/2013 14 - Other: See Comments Comments: Muscle spasms CELECOXIB 14 - Other: See Comments CYMBALTA (DULOXETINE) 04/11/2014 14 - Other: See Comments Comments: Worsened depression LEVAQUIN (LEVOFLOXACIN) 04/16/2016 4 - Hives Comments: bilsters over entire body MELOXICAM 10/16/2012 5 - Intolerance Comments: Caused pt to have restless legs and arms SAVELLA (MILNACIPRAN) 05/29/2015 14 - Other: See Comments Comments: Elevated BP, ? rhabdomyolysis TYLENOL (ACETAMINOPHEN) 09/30/2012 8 - GI Upset Date Reviewed: 03/12/2018 Reviewed by: Kinjal Villarreal MA - Fully Assessed Reason for Visit: Established Patient [175] Low Back Pain [126] Primary Visit Diagnosis:DDD (degenerative disc disease), lumbar [M51.36] Other Visit Diagnoses:SI joint arthritis [M46.98] Chronic SI joint pain [M53.3, G89.29] Radiculopathy,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 [M54.16] Order(s):INJ TRANSFORAMINAL EPID ANES/STER LS SINGL [[id number]] Order #: [id number] Prescriptions as of 03/12/2018 Sig: FLUOXETINE 20 MG CAPSULE Take 20 mg by mouth once mariel* TIZANIDINE 4 MG TABLET Take 1 tablet by mouth every * FUROSEMIDE 20 MG TABLET Take 20 mg by mouth once mariel* PREGABALIN 150 MG CAPSULE Take 1 capsule by mouth twice* OXAPROZIN 600 MG TABLET Take 2 tablets by mouth once * FLUOXETINE 40 MG CAPSULE Take 40 mg by mouth once mariel* MIRTAZAPINE 15 MG TABLET Take 15 mg by mouth daily at * FAMOTIDINE 20 MG TABLET Take 1 tablet by mouth twice * COMPOUNDED PRESCRIPTION Nebulizer ALBUTEROL SULFATE 2.5 MG/3 ML* Use 3 mL via nebulizer every * CARVEDILOL 6.25 MG TABLET Take 1 tablet by mouth twice * MEDROXYPROGESTERONE 150 MG/ML* INJECT 1ML INTRAMUSCULARLY EV* MONTELUKAST 10 MG TABLET Take 1 tablet by mouth daily * LEVETIRACETAM 750 MG TABLET Take 2 tablets by mouth twice* CLONAZEPAM 0.5 MG TABLET Take 0.5 mg by mouth at bedti* ALBUTEROL SULFATE HFA 90 MCG/* Inhale 2 Puffs as instructed * COMPOUNDED PRESCRIPTION BLOOD PRESSURE CUFF FOR HOME * Problem List As Of Date 03/12/2018 Noted Resolved 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 disorder [I35.9] Priority: A SUPERVIS OTHER NORMAL PREG [Z34.80] INVALID FOR*02/10/2008 THREATEN ABORT-ANTEPART [O20.0] INVALID FOR*02/10/2008 Migraine, unspecified, without mention of intra*INVALID FOR* Priority: A 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 DDD (degenerative disc disease), lumbar [M51.36]INVALID FOR* Priority: D More... Genital warts [A63.0] INVALID FOR* Priority: E SI (sacroiliac) joint dysfunction [M53.3] INVALID FOR*07/12/2015 Priority: D SI joint arthritis [M46.98] INVALID FOR* Priority: D Edema [R60.9] INVALID FOR* Priority: A Exercise-induced asthma [J45.990] INVALID FOR* Priority: A GERD (gastroesophageal reflux disease) [K21.9] INVALID FOR* Priority: A HTN (hypertension) [I10] INVALID FOR* Priority: A Elevated LFTs [R94.5] INVALID FOR* Controlled substance agreement signed [Z79.899] INVALID FOR* Dysphagia [R13.10] INVALID FOR* Severe episode of recurrent major depressive di*INVALID FOR* More... 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] More... Primary osteoarthritis of both knees [M17.0] INVALID FOR* S/p total knee replacement, bilateral [Z96.653] INVALID FOR* Right leg DVT (HCC) [I82.401] INVALID FOR* More... Pulmonary emboli (HCC) [I26.99] INVALID FOR* More... Lacunar infarct, acute (HCC) [I63.81] INVALID FOR* More... 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 Encounter Status:Closed by GERALDINE JAUREGUI on 03/12/18 HOSP Observed: 03/12/2018 Status: COMPLETED Source: [place] 12:00 AM CLINIC OTHER CAMPUS REPOSITORY Patient:Chrissie Cr MRN: <[id number]> Height:5' 3(1.6 m) Weight:190 lb (86.183 kg) Outpatient Medications as of 04/07/18: tiZANidine (ZANAFLEX) 4 mg tablet FLUoxetine (PROZAC) 20 mg capsule furosemide (LASIX) 20 mg tablet pregabalin (LYRICA) 150 mg capsule oxaprozin (DAYPRO) 600 mg tablet FLUoxetine HCl (PROZAC) 40 mg capsule mirtazapine (REMERON) 15 mg tablet famotidine (PEPCID) 20 mg tablet COMPOUNDED PRESCRIPTION albuterol (PROVENTIL) 2.5 mg /3 mL (0.083 %) nebulizer solution carvedilol (COREG) 6.25 mg tablet medroxyPROGESTERone (DEPO-PROVERA) 150 mg/mL syrg montelukast (SINGULAIR) 10 mg tablet levETIRAcetam (KEPPRA) 750 mg tablet clonazePAM (KLONOPIN) 0.5 mg tablet albuterol HFA (VENTOLIN HFA) 90 mcg/actuation inhaler COMPOUNDED PRESCRIPTION Admission/Clinic Administered Medications as of 04/07/18: NaCl 0.9% iv infusion Problem List: 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 disorder [I35.9] Migraine, unspecified, without mention of intractable migraine without mention of status migrainosus [G43.909] 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] Status post aortic valve repair [Z98.890] Myofascial pain [M79.18] Lumbago [M54.5] Cervicalgia [M54.2] Syringomyelia (HCC) [G95.0] Anxiety [F41.9] Insomnia [G47.00] 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] DDD (degenerative disc disease), lumbar [M51.36] Genital warts [A63.0] SI joint arthritis [M46.98] Edema [R60.9] Exercise-induced asthma [J45.990] GERD (gastroesophageal reflux disease) [K21.9] HTN (hypertension) [I10] Elevated LFTs [R94.5] Controlled substance agreement signed [Z79.899] Dysphagia [R13.10] Severe episode of recurrent major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 [place], [place], [address] URINALYSIS, COMPLETE Collected: 02/23/2018 Status: F Source: [place] 6:40 PM [facility] REPOSITORY Order Comment: Order Date: 02/23/18 How was Urine Obtained? CLEAN CATCH TYPE CODE TESTS RESULT OUT OF RANGE REFERENCE UNITS LAB L400.3000 Yellow COLOR Normal Yellow LAB L400.3050 Clear Normal CLARITY Sl. Cloudy LAB L400.3200 Normal mg/dl Normal GLUCOSE, UR Normal LAB L400.3300 Negative mg/dL Normal BILIRUBIN URINE Negative LAB L400.3400 Negative mg/dl Normal KETONE UR Negative LAB L400.3465 1.002-1.030 Normal SP.GR. DIPSTX 1.005 LAB L400.3550 5.0 - 8.0 pH UR Normal 5.0 LAB L400.3600 Negative mg/dl PROT Normal DIPSTX Negative LAB L400.3700 Normal mg/dl Normal UROBILI Normal LAB L400.3750 Negative Normal NITRITE UR Negative LAB L400.3780 Negative /ul Normal OCCULT BLOOD-UR Negative LAB L400.3800 Negative /ul LEUK Normal ESTERASE Negative LAB L400.4050 0-5 /hpf WBC Normal 0-5 SEEN LAB L400.4100 0-5 /hpf 0 Normal RBC-UA SEEN LAB L400.4150 5-10 /hpf SQUAM Normal EPI 0-5 SEEN LAB L400.4300 None Seen /hpf 0 Normal BACTERIA SEEN LAB L400.4350 <or=2+ /hpf 0 Normal MUCUS, URINE SEEN Performed By: #### L400.0001 #### [facility] [address] [facility] [place], [address] ABDOMEN/PELVIS W IV CONT Observed: 02/23/2018 Status: F Source: [place] 6:34 PM [facility] REPOSITORY [facility] Imaging Services [address] [place] [address] Abdomen/Pelvis W IV Cont ONLY MR#: [id number] Acct: [id number] Name: CHRISSIE CR Rep #: [id number] : 1980 F 37 From: Jerry Orellana DO PCP: Bill Lou MD Status: REG ER Study: Abdomen/Pelvis W IV Cont ONLY Date of Exam: 02/23/18 Exam# [id number] Ordering Dr: Francisco Emanuel MD STUDY: CT ABDOMEN AND PELVIS WITH CONTRAST REASON FOR EXAM: Female, 37 years old. Right lower quadrant pain and bloody stool, blunt trauma RADIATION DOSAGE (If Supplied By Facility): CTDIvol = ( 14.45 ) mGy, DLP = ( 1093.30 ) mGycm TECHNIQUE: Transaxial images were obtained from the dome of the diaphragm to the symphysis pubis without oral contrast. 100 ml of Isovue 300 contrast was administered. Sagittal and coronal images were reconstructed. Individualized dose optimization techniques were used for this CT. COMPARISON: None. FINDINGS: The visualized lung bases are unremarkable. The visualized portions of the heart are within normal limits. Normal liver. Normal gallbladder and extrahepatic biliary system. Normal spleen. Normal pancreas. Normal bilateral adrenal glands. Normal right kidney. Normal left kidney. Normal visualized stomach. Normal small intestine. Fecal retention in the colon. The appendix is visualized and appears normal. Normal abdominal aorta. Normal inferior vena cava. Normal retroperitoneum. Normal urinary bladder. Normal uterus. Mild fatty umbilical hernia. Normal osseous structures. CT/Abdomen/Pelvis W IV Cont ONLY IMPRESSION: Diffuse colonic colonic fecal retention. Normal appendix. 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 Chrissie Cr is a 37 year old female who returns about 3 months after she had injured the left knee. At times it can be 6 out of 10 and achy across the front and top part of the knee. She has been taking her Daypro icing and heating. She has not been having any other treatments. ASSESSMENT: M25.562, G89.29 Chronic pain of left knee (primary encounter diagnosis) PLAN: her films from the incident look appropriate without any acute problems. Her exam shows a stable knee arthroplasty with some just tenderness superior to the patella. She very well may have just strained or injured some of the muscle or tendinous area. I recommendation is to continue her anti-inflammatory and we will begin a strengthening program for her again. Follow-up as needed. OBJECTIVE: Ms. Chrissie Cr is a pleasant 37 year old in no apparent distress. Gen:There were no vitals taken for this visit. nl development, non obese, no deformities ENT: Normocephalic, normal hearing, moist mucosa CV: Pulses:DP/PT= 2+ and symmetric, capillary refill < 2 secs, no peripheral edema/varicosities Skin: no rash, bruising or lesions. Good turgor. Psych: cooperative and appropriate, alert and oriented x 3, good mood and affect. Musculoskeletal: left knee with out any effusion. Excellent range of motion. No patellar crepitance. Medial and lateral ligamentous structures are stable. There is no flexion instability. She is mildly tender over the quadriceps tendon without any defect. Extensor mechanism is intact. Neurovascular exam is intact. Imaging: deferred today Supporting Subjective Information Below: Past Surgical History: PAST SURGICAL HISTORY Procedure Laterality Date - BREAST LUMPECTOMY HX Right 2013 - DELIVERY ONLY 05/02/2006 , low cervical - COLONOSCOPY 11/22/2003 normal - COLONOSCOPY 09/23/14 negative biopsies, Dr. Aguilera Gastro - COLPOSCOPY (VAGINOSCOPY) 07/02/2006 Colposcopy - EGD W/O OR W/BRUSH/WASH 09/01/13 non-severe reflux esophagitis, bilious gastic fluid - EGD W/O OR W/BRUSH/WASH 11/03/2015 EGD: retained food, no active bleeding. otherwise unremarkable. 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 - TOTAL KNEE REPLACEMENT Bilateral 09/20/2015 bilateral TKA Medications: Current Outpatient Prescriptions: furosemide (LASIX) 20 mg tablet Take 20 mg by mouth once daily. pregabalin (LYRICA) 150 mg capsule Take 1 capsule by mouth twice daily for 30 days. oxyCODONE-acetaminophen (PERCOCET) 5-325 mg tablet Take 1 tablet by mouth every 4 hours as needed for Pain for up to 7 days. oxaprozin (DAYPRO) 600 mg tablet Take 2 tablets by mouth once daily. tiZANidine (ZANAFLEX) 4 mg tablet Take 1 tablet by mouth every 8 hours as needed. FLUoxetine HCl (PROZAC) 40 mg capsule Take 40 mg by mouth once daily. FLUoxetine (PROZAC) 10 mg capsule Take 20 mg by mouth once daily. mirtazapine (REMERON) 15 mg tablet Take 15 mg by mouth daily at bedtime. famotidine (PEPCID) 20 mg tablet Take 1 tablet by mouth twice daily. albuterol (PROVENTIL) 2.5 mg /3 mL (0.083 %) nebulizer solution Use 3 mL via nebulizer every 6 hours as needed for Wheezing/Shortness of Breath. Use over 5-15minutes. carvedilol (COREG) 6.25 mg tablet Take 1 tablet by mouth twice daily with meals. medroxyPROGESTERone (DEPO-PROVERA) 150 mg/mL syrg INJECT 1ML INTRAMUSCULARLY EVERY 12 WEEKS montelukast (SINGULAIR) 10 mg tablet Take 1 tablet by mouth daily at bedtime. levETIRAcetam (KEPPRA) 750 mg tablet Take 2 tablets by mouth twice daily. clonazePAM (KLONOPIN) 0.5 mg tablet Take 0.5 mg by mouth at bedtime as needed. albuterol HFA (VENTOLIN HFA) 90 mcg/actuation inhaler Inhale 2 Puffs as instructed every 4 hours as needed. gabapentin (NEURONTIN) 400 mg capsule Take 1 capsule by mouth four times daily for 90 days. topiramate (TOPAMAX) 25 mg tablet Take 1 tablet by mouth at bedtime as needed. COMPOUNDED PRESCRIPTION Nebulizer COMPOUNDED PRESCRIPTION BLOOD PRESSURE CUFF FOR HOME USE. DX: LABILE BLOOD PRESSURE No current facility-administered medications for this visit. Allergies: Erythromycin; Amitriptyline; Amoxicillin; Benadryl [Diphenhydramine Hcl]; Celecoxib; Cymbalta [Duloxetine]; Levaquin [Levofloxacin]; Meloxicam; Savella [Milnacipran]; Tylenol [Acetaminophen] ROS: General (negative for fatigue, malaise, weight loss/gain) HEENT (negative for headache, earache, recent vision changes, sinus pain, sore throat) Respiratory (no recent shortness of breath, hemoptysis) CV (negative for chest tightness, palpitations) Musculoskeletal (see HPI) Psych (no depression, anxiety) This note was partially generated using [employer] voice recognition system, and there may be some incorrect words, spellings, and punctuation that were not noted in checking the note before saving. Francisco Mae MD PROGRESS Observed: 02/19/2018 Status: COMPLETED Source: [place] 8:16 AM [facility] REPOSITORY HNO ID: [id number] Author: Acosta (Rn) MARILU Johnson Service: (none) Author Type: Registered Nurse Type: Progress Notes Filed: 02/19/2018 9:55 AM Note Text: AMB ROOMING INTAKE FLOWSHEET DATA Pain Pain Score: 6/10 Pain Location: Knee-Left Description: Aching Duration Amount of Time: 2 Duration Units: Months Frequency: Intermittent Intervention: Cold, Heat, Medication (daypro ) Patient presents with: Established Patient: 3 month post visit left knee pain, (s/p b/l TKA 09/19/17) patient is here for left knee pain, patient states the pain is located in anterior part of knee. Patient fell 2 months ago and she has had pain ever since. Patient went to [facility] ER at that time. Xray- 12/25/17. Patient is taking percocet and daypro, ice and heat. Acosta Johnson RN CNOV Observed: 02/19/2018 Status: COMPLETED Source: [place] 8:10 AM [facility] REPOSITORY Office Visit (LISA) CHRISSIE CR ([id number]) 1980 F HPR Date Time Provider Department 02/19/18 8:10 AM FRANCISCO MAE During your visit today, we recorded the following information about you: Acosta Johnson RN, RN 02/19/2018 9:55 AM Signed AMB ROOMING INTAKE FLOWSHEET DATA Pain Pain Score: 6/10 Pain Location: Knee-Left Description: Aching Duration Amount of Time: 2 Duration Units: Months Frequency: Intermittent Intervention: Cold, Heat, Medication (daypro ) Patient presents with: Established Patient: 3 month post visit left knee pain, (s/p b/l TKA 09/19/17) patient is here for left knee pain, patient states the pain is located in anterior part of knee. Patient fell 2 months ago and she has had pain ever since. Patient went to [facility] ER at that time. Xray- 12/25/17. Patient is taking percocet and daypro, ice and heat. MARILU Ocampo MD 02/19/2018 9:55 AM Signed Francisco Mae MD Department of Orthopaedics Orthopaedics [address] [place] [address] Dept: [phone] Dept February 19, 2018 CHIEF COMPLAINT: Established Patient (3 month post visit left knee pain, (s/p b/l TKA 09/19/17)) Ms. Chrissie Cr is a 37 year old female who returns about 3 months after she had injured the left knee. At times it can be 6 out of 10 and achy across the front and top part of the knee. She has been taking her Daypro icing and heating. She has not been having any other treatments. ASSESSMENT: M25.562, G89.29 Chronic pain of left knee (primary encounter diagnosis) PLAN: her films from the incident look appropriate without any acute problems. Her exam shows a stable knee arthroplasty with some just tenderness superior to the patella. She very well may have just strained or injured some of the muscle or tendinous area. I recommendation is to continue her anti- inflammatory and we will begin a strengthening program for her again. Follow- up as needed. OBJECTIVE: Ms. Chrissie Cr is a pleasant 37 year old in no apparent distress. Gen:There were no vitals taken for this visit. nl development, non obese, no deformities ENT: Normocephalic, normal hearing, moist mucosa CV: Pulses:DP/PT= 2+ and symmetric, capillary refill < 2 secs, no peripheral edema/varicosities Skin: no rash, bruising or lesions. Good turgor. Psych: cooperative and appropriate, alert and oriented x 3, good mood and affect. Musculoskeletal: left knee with out any effusion. Excellent range of motion. No patellar crepitance. Medial and lateral ligamentous structures are stable. There is no flexion instability. She is mildly tender over the quadriceps tendon without any defect. Extensor mechanism is intact. Neurovascular exam is intact. Imaging: deferred today Supporting Subjective Information Below: Past Surgical History: PAST SURGICAL HISTORY Procedure Laterality Date - BREAST LUMPECTOMY HX Right 2013 - DELIVERY ONLY 05/02/2006 , low cervical - COLONOSCOPY 11/22/2003 normal - COLONOSCOPY 09/23/14 negative biopsies, Dr. Aguilera Gastro - COLPOSCOPY (VAGINOSCOPY) 07/02/2006 Colposcopy - EGD W/O OR W/BRUSH/WASH 09/01/13 non-severe reflux esophagitis, bilious gastic fluid - EGD W/O OR W/BRUSH/WASH 11/03/2015 EGD: retained food, no active bleeding. otherwise unremarkable. 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 - TOTAL KNEE REPLACEMENT Bilateral 09/20/2015 bilateral TKA Medications: Current Outpatient Prescriptions: furosemide (LASIX) 20 mg tablet Take 20 mg by mouth once daily. pregabalin (LYRICA) 150 mg capsule Take 1 capsule by mouth twice daily for 30 days. oxyCODONE-acetaminophen (PERCOCET) 5-325 mg tablet Take 1 tablet by mouth every 4 hours as needed for Pain for up to 7 days. oxaprozin (DAYPRO) 600 mg tablet Take 2 tablets by mouth once daily. tiZANidine (ZANAFLEX) 4 mg tablet Take 1 tablet by mouth every 8 hours as needed. FLUoxetine HCl (PROZAC) 40 mg capsule Take 40 mg by mouth once daily. FLUoxetine (PROZAC) 10 mg capsule Take 20 mg by mouth once daily. mirtazapine (REMERON) 15 mg tablet Take 15 mg by mouth daily at bedtime. famotidine (PEPCID) 20 mg tablet Take 1 tablet by mouth twice daily. albuterol (PROVENTIL) 2.5 mg /3 mL (0.083 %) nebulizer solution Use 3 mL via nebulizer every 6 hours as needed for Wheezing/Shortness of Breath. Use over 5-15minutes. carvedilol (COREG) 6.25 mg tablet Take 1 tablet by mouth twice daily with meals. medroxyPROGESTERone (DEPO-PROVERA) 150 mg/mL syrg INJECT 1ML INTRAMUSCULARLY EVERY 12 WEEKS montelukast (SINGULAIR) 10 mg tablet Take 1 tablet by mouth daily at bedtime. levETIRAcetam (KEPPRA) 750 mg tablet Take 2 tablets by mouth twice daily. clonazePAM (KLONOPIN) 0.5 mg tablet Take 0.5 mg by mouth at bedtime as needed. albuterol HFA (VENTOLIN HFA) 90 mcg/actuation inhaler Inhale 2 Puffs as instructed every 4 hours as needed. gabapentin (NEURONTIN) 400 mg capsule Take 1 capsule by mouth four times daily for 90 days. topiramate (TOPAMAX) 25 mg tablet Take 1 tablet by mouth at bedtime as needed. COMPOUNDED PRESCRIPTION Nebulizer COMPOUNDED PRESCRIPTION BLOOD PRESSURE CUFF FOR HOME USE. DX: LABILE BLOOD PRESSURE No current facility-administered medications for this visit. Allergies: Erythromycin; Amitriptyline; Amoxicillin; Benadryl [Diphenhydramine Hcl]; Celecoxib; Cymbalta [Duloxetine]; Levaquin [Levofloxacin]; Meloxicam; Savella [Milnacipran]; Tylenol [Acetaminophen] ROS: General (negative for fatigue, malaise, weight loss/gain) HEENT (negative for headache, earache, recent vision changes, sinus pain, sore throat) Respiratory (no recent shortness of breath, hemoptysis) CV (negative for chest tightness, palpitations) Musculoskeletal (see HPI) Psych (no depression, anxiety) This note was partially generated using Neuro[employer] voice recognition system, and there may be some incorrect words, spellings, and punctuation that were not noted in checking the note before saving. Francisco Mae MD Referring Provider: FRANCISCO MAE [[id number]] Allergies As of Date: 02/19/2018 Noted Allergy Reaction ERYTHROMYCIN 09/26/2005 11 - Vomiting AMITRIPTYLINE 05/29/2015 14 - Other: See Comments Comments: sweating AMOXICILLIN 12/02/2000 2 - Rash Comments: REACTION WHEN SHE WAS A CHILD BENADRYL (DIPHENHYDRAMINE HCL) 12/14/2013 14 - Other: See Comments Comments: Muscle spasms CELECOXIB 14 - Other: See Comments CYMBALTA (DULOXETINE) 04/11/2014 14 - Other: See Comments Comments: Worsened depression LEVAQUIN (LEVOFLOXACIN) 04/16/2016 4 - Hives Comments: bilsters over entire body MELOXICAM 10/16/2012 5 - Intolerance Comments: Caused pt to have restless legs and arms SAVELLA (MILNACIPRAN) 05/29/2015 14 - Other: See Comments Comments: Elevated BP, ? rhabdomyolysis TYLENOL (ACETAMINOPHEN) 09/30/2012 8 - GI Upset Date Reviewed: 02/19/2018 Reviewed by: Francisco Mae - Fully Assessed Reason for Visit: Established Patient [175] Cmt: 3 month post visit left knee pain, (s/p b/l TKA 09/19/17) Primary Visit Diagnosis:Chronic pain of left knee [M25.562, G89.29] Prescriptions as of 02/19/2018 Sig: FUROSEMIDE 20 MG TABLET Take 20 mg by mouth once mariel* PREGABALIN 150 MG CAPSULE Take 1 capsule by mouth twice* OXYCODONE-ACETAMINOPHEN 5 MG-* Take 1 tablet by mouth every * OXAPROZIN 600 MG TABLET Take 2 tablets by mouth once * TIZANIDINE 4 MG TABLET Take 1 tablet by mouth every * FLUOXETINE 40 MG CAPSULE Take 40 mg by mouth once mariel* FLUOXETINE 10 MG CAPSULE Take 20 mg by mouth once mariel* MIRTAZAPINE 15 MG TABLET Take 15 mg by mouth daily at * FAMOTIDINE 20 MG TABLET Take 1 tablet by mouth twice * ALBUTEROL SULFATE 2.5 MG/3 ML* Use 3 mL via nebulizer every * CARVEDILOL 6.25 MG TABLET Take 1 tablet by mouth twice * MEDROXYPROGESTERONE 150 MG/ML* INJECT 1ML INTRAMUSCULARLY EV* MONTELUKAST 10 MG TABLET Take 1 tablet by mouth daily * LEVETIRACETAM 750 MG TABLET Take 2 tablets by mouth twice* CLONAZEPAM 0.5 MG TABLET Take 0.5 mg by mouth at bedti* ALBUTEROL SULFATE HFA 90 MCG/* Inhale 2 Puffs as instructed * GABAPENTIN 400 MG CAPSULE Take 1 capsule by mouth four * TOPIRAMATE 25 MG TABLET Take 1 tablet by mouth at bed* COMPOUNDED PRESCRIPTION Nebulizer COMPOUNDED PRESCRIPTION BLOOD PRESSURE CUFF FOR HOME * Medication notes this encounter GABAPENTIN 400 MG CAPSULE >> Acosta Johnson, MARILU, RN 02/19/2018 8:15 AM >> ACOSTA JOHNSON [place] Feb 19, 2018 8:15 AM Not taking TOPIRAMATE 25 MG TABLET >> Acosta Johnson RN, RN 02/19/2018 8:14 AM >> ACOSTA JOHNSON [place] Feb 19, 2018 8:14 AM Not taking Problem List As Of Date 02/19/2018 Noted Resolved 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 disorder [I35.9] Priority: A SUPERVIS OTHER NORMAL PREG [Z34.80] INVALID FOR*02/10/2008 THREATEN ABORT-ANTEPART [O20.0] INVALID FOR*02/10/2008 Migraine, unspecified, without mention of intra*INVALID FOR* Priority: A 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 DDD (degenerative disc disease), lumbar [M51.36]INVALID FOR* Priority: D More... Genital warts [A63.0] INVALID FOR* Priority: E SI (sacroiliac) joint dysfunction [M53.3] INVALID FOR*07/12/2015 Priority: D SI joint arthritis [M46.98] INVALID FOR* Priority: D Edema [R60.9] INVALID FOR* Priority: A Exercise-induced asthma [J45.990] INVALID FOR* Priority: A GERD (gastroesophageal reflux disease) [K21.9] INVALID FOR* Priority: A HTN (hypertension) [I10] INVALID FOR* Priority: A Elevated LFTs [R94.5] INVALID FOR* Controlled substance agreement signed [Z79.899] INVALID FOR* Dysphagia [R13.10] INVALID FOR* Severe episode of recurrent major depressive di*INVALID FOR* More... 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] More... Primary osteoarthritis of both knees [M17.0] INVALID FOR* S/p total knee replacement, bilateral [Z96.653] INVALID FOR* Right leg DVT (HCC) [I82.401] INVALID FOR* More... Pulmonary emboli (HCC) [I26.99] INVALID FOR* More... Lacunar infarct, acute (HCC) [I63.9] INVALID FOR* More... 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 Encounter Status:Closed by FRANCISCO MAE MD on 02/19/18 PROGRESS Observed: 02/18/2018 Status: COMPLETED Source: [place] 2:09 PM [facility] REPOSITORY HNO ID: [id number] Author: Geraldine Sahrp (Filiberto) Mala Service: (none) Author Type: Nurse Practitioner Type: Progress Notes Filed: 02/18/2018 2:53 PM Note Text: SUBJECTIVE: Chrissie Cr presents to [facility] for a followup appointment for low back pain radiating up to mid back. Since the last visit, Chrissie Cr states the pain has been constant. Current pain intensity is 6 on a scale of 0-10. Pain located in back area and radiates up to mid back. Pain described as throbbing The patient Reports morning stiffness and tingling. Symptoms interfere with physical activity. Pain is exacerbated by forward flexion, lifting, getting up from sitting and walking. Pain is mitigated by lying down, medications and heat. The patient is overall improved with the injections by 85%. REVIEW OF SYSTEMS: Constitutional: (-) Fever (-) Night Sweats (-) Weight Gain (-) Weight Loss (-) Fatigue Cardiovascular: (-) Chest Pain (-) Palpitations (-) Lightheadedness (-) Swelling of Ankles (-) Hx Heart Surgery Respiratory: (-) Shortness of Breath (-) Cough (-) Wheezing (-) Snoring Gastrointestinal: (-) Incontinence (-) Abdominal Pain (-) Diarrhea (-) Constipation (-) Nausea/Vomiting (-) Heart Burn Endocrine: (-) Thyroid Disorder (-) Diabetes Hematologic: (-) Prolonged Bleeding (-) Easy Bruising Genitourinary: (-) Incontinence (-) Frequency (-) Urinary Urgency Skin: (-) Rashes (-) Itching (-) Other Lesions Neurologic: (-) Headache (-) Double Vision (-) Confusion (-) Paralysis Psychiatric: (-) Depression (-) Anxiety (-) Delusions (-) Hallucinations (-) Personal History of Alcohol or Substance Abuse (-) Family History of Alcohol or Substance Abuse OBJECTIVE: Pulse 68 Ht 5' 3 (1.60m) Wt 189 lb 4.8 oz (85.9kg) SpO2 96% BMI 33.54 kg/(m2). PHYSICAL EXAMINATION: General appearance: Well appearing, in no acute distress, alert Skin: Skin color, texture, turgor normal, no rashes or lesions Neck: No pain to palpation over the cervical paraspinous muscles. No pain with neck flexion, extension, or lateral flexion Cardiovascular: Regular rate Lungs: Normal respiratory rate and rhythm Abdomen: Abdomen soft and non-tender. Back: Intact range of motion with pain reproduction. Spine: Reports Tenderness on palpation: Bilateral SI tenderness, positive sacral thrust, postive patricks Extremities: No deformities, edema, or skin discoloration. Good capillary refill. Musculoskeletal: Bilateral upper and lower extremity strength is normal and symmetric. No atrophy or tone abnormalities are noted. Neuro: No loss of sensation is noted. Station and Gait: Normal stance, normal gait. Motor: Exhibits full strength in all four extremities. Trigger points: none. ASSESSMENT: Assessment : Patient reports lower back pain with bilateral SI tenderness with intermittent bilateral posterior radicular symptoms She had repeat bilateral SI injections on ??18 and reports 85% improvement. She would like to proceed with the ablation starting with the left side first and then the right She reports she had great results in 2014 from the SI ablations She is currently taking gabapentin 1600 mg daily and Topamax 25 mg at bedtime and feels that it is not effective. She has tried and failed Cymbalta and Elavil. We'll try Lyrica 150 mg twice a day Encounter Diagnosis ICD-10-CM 1. DDD (degenerative disc disease), lumbar M51.36 2. 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 Chronic SI joint pain M53.3 G89.29 4.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 Specific [place],Ur Pain Anaya 1.015 12/12/2017 Oxidants,Ur <38 12/12/2017 Specimen Quality, Ur Pain Anaya Possible sample dilution indicated. 06/12/2015 The pain panel was Shows possible sample dilution indicated, accident should be negative and specific gravity is low PLAN: 1) patient is currently taking gabapentin 1600 mg. Will add Topamax 25 mg at bedtime for 30 days. Patient will keep us updated effectiveness of the Topamax and gabapentin 2) patient has tried and failed Cymbalta and Elavil. 3) consider Lyrica 4) encourage daily exercising, stretching, and walking 5) RTC 3 months The above plan and management options were discussed at length with patient. Patient is in agreement with the above and verbalized understanding. Geraldine Jauregui APRN, FILIBERTO January 21, 2018 Previous Version Progress Notes ([facility]): Jasmin Stock LPN 01/08/2018 8:34 AM Signed Message from [employer]: Chrissie Cr would like a refill of the following medications: tiZANidine (ZANAFLEX) 4 mg tablet [Lila Gomez PA-C] Preferred pharmacy: [facility] [address] [place] [phone] [phone] [facility] ED NOTE Observed: 01/20/2018 Status: COMPLETED Source: [place] 7:36 PM [facility] [place] REPOSITORY HNO ID: [id number] Author: Agatha Mckeon) MARILU Loya Service: Emergency Medicine Author Type: Registered Nurse Type: ED Notes Filed: 01/21/2018 10:59 AM Note Text: Patient Call Back Information ? How are you doing ? better ? Did we appropriately manage your pain? Yes ? Did you understand your discharge instructions? Yes ? Did you get your prescriptions filled? n/a ? Were you able to make a follow-up appointment with your physician? Yes ? Were you comfortable during your stay here? Yes ? Did a member of the ER nursing team round on you during your visit? Yes ? You will receive a patient satisfaction survey in the mail in the nest 2 weeks, please take the time to fill out the survey as your input from your ER visit is very important to us. Yes ? Can we do anything else to help you? No ED NOTE Observed: 01/20/2018 Status: COMPLETED Source: [place] 7:35 PM [facility] REPOSITORY HNO ID: [id number] Author: Lien JimenezRn) MARILU Rashid Service: Emergency Medicine Author Type: Registered Nurse Type: ED Notes Filed: 01/20/2018 7:35 PM Note Text: Dc instr to fu w pmd, return prn. Verb und. ED NOTE Observed: 01/20/2018 Status: COMPLETED Source: [place] 7:30 PM [facility] REPOSITORY HNO ID: [id number] Author: Lien JimenezRn) MARILU Rashid Service: Emergency Medicine Author Type: Registered Nurse Type: ED Notes Filed: 01/20/2018 7:31 PM Note Text: Assumed care of pt. Pt is AANDO, wdp, resps even and unlabored, relaxed expression and posture. Pt appears to be in no distress. PO percocet given per order. Pt aware pending dc. ED NOTE Observed: 01/20/2018 Status: COMPLETED Source: [place] 7:30 PM [facility] REPOSITORY HNO ID: [id number] Author: Lien JimenezRn) MARILU Rashid Service: Emergency Medicine Author Type: Registered Nurse Type: ED Notes Filed: 01/20/2018 8:01 PM Note Text: Patient informed: the name of medication, why we are giving it, possible side effects, what they may expect to feel, and was offered a chance to ask questions, prior to the administration of percocet ED NOTE Observed: 01/20/2018 Status: COMPLETED Source: [place] 6:46 PM [facility] REPOSITORY HNO ID: [id number] Author: Fer JimenezRn) MARILU Langford Service: Emergency Medicine Author Type: Registered Nurse Type: ED Notes Filed: 01/20/2018 6:48 PM Note Text: Pt called on [facility] It feels like someone is sitting on my chest, doctor made aware and 12 lead EKG ordered, pt NRS at a rate of 60 ED NOTE Observed: 01/20/2018 Status: COMPLETED Source: [place] 6:19 PM [facility] REPOSITORY HNO ID: [id number] Author: Cari JimenezRn) MARILU Moore Service: Emergency Medicine Author Type: Registered Nurse Type: ED Notes Filed: 01/20/2018 6:19 PM Note Text: Records received from [facility], given to dr browning ED NOTE Observed: 01/20/2018 Status: COMPLETED Source: [place] 5:44 PM [facility] REPOSITORY O ID: [id number] Author: Cari (Rn) MARILU Moore Service: Emergency Medicine Author Type: Registered Nurse Type: ED Notes Filed: 01/20/2018 5:45 PM Note Text: Release of medical record sent to [facility], spoke with nursing traffic personnel supervisor. Message left for nursing traffic personnel supervisor at [facility] regarding release of pt's medical records CHEST 1 VIEW Observed: 01/20/2018 Status: F Source: [facility] 5:43 PM HEALTH SYSTEM REPOSITORY Performed at [facility] APPROVED BY: Ori Senior MD Exam: Portable view of the chest dated 01/20/2018 17:33. Indication: Chest pain. Comparison: 09/01/2014. Findings: Evaluation somewhat limited by overlying support devices and patient body habitus. The lungs are grossly clear. There is no evidence of pneumothorax or pleural effusion. The cardiomediastinal silhouett e is within normal limits. There is an acute appearing fracture of the right posterior eighth rib. IMPRESSION: Acute-appearing eighth posterior right rib fracture. URINALYSIS ROUTINE Collected: 01/20/2018 Status: F Source: [facility] 5:20 PM HEALTH SYSTEM REPOSITORY TYPE CODE TESTS RESULT OUT OF RANGE REFERENCE UNITS LAB LCOLR(LOIN C) Urine Color YELLOW LAB LAPPU(LOIN C) Urine Appearance CLEAR LAB LGLUR(LOIN Negative C) Glucose Urine NEGATIVE LAB LKETO(LOIN Negative C) Ketone Urine NEGATIVE LAB LHGBU(LOIN Negative C) Hemoglobin,Urin NEGATIVE e LAB LPRTU(LOIN Negative C) Protein Urine NEGATIVE LAB LNITR(LOIN Negative C) Nitrites Urine NEGATIVE LAB LBILU(LOIN Negative C) Bilirubin Urine NEGATIVE LAB LSPG(LOINC 1.005-1.030 ) Specific 1.010 [place], Ur LAB LPHUR(LOIN 5.0-8.0 C) pH,Urine 6.0 LAB LUROB(LOIN 0.0-1.0 EU/dL C) Urobilinogen,Ur 0.2 LAB LLEUK(LOIN Negative C) Abnormal Leukocytes 1+ Esterase LAB LWBCU(LOIN 0-5 /hpf C) WBC, Urine 1-3 LAB LRBCU(LOIN 0-3 /hpf C) RBC,Urine 0-3 LAB LEPIT(LOIN 0-5 /hpf C) Ep Cells Urine 2-5 LAB LBACT(LOIN None C) Abnormal Bacteria Urine FEW Performed By: #### DEYVI #### [facility] [address] [id number] URINE DRUG SCREEN Collected: 01/20/2018 Status: F Source: [facility] 5:20 PM HEALTH SYSTEM REPOSITORY TYPE CODE TESTS RESULT OUT OF REFERENCE UNITS RANGE LAB LUAMP(LOIN Non-Detected C) Urine Amphetamine Non-Detecte d LAB LUBAR(LOIN Non-Detected C) Urine Barbiturates Non-Detecte d LAB LUBNZ(LOIN Non-Detected C) Urine Benzodiazepine Non-Detecte d LAB LUCOC(LOIN Non-Detected C) Urine Cocaine Non-Detecte d LAB LUMMP(LOIN Non-Detected C) Urine Methamphetamine Non-Detecte d LAB LUMTD(LOIN Non-Detected C) Urine Methadone Non-Detecte d LAB LUOPI(LOIN Non-Detected C) Urine Opiate Non-Detecte d LAB LUPCP(LOIN Non-Detected C) Urine PCP Non-Detecte d LAB LUOXY(LOIN Non-Detected C) Urine Oxycodone Non-Detecte d LAB LUPPX(LOIN Non-Detected C) Urine Propoxyphene Non-Detecte d LAB LUTCA(LOIN Non-Detected C) Urine Tricyclics Non-Detecte d LAB LTHCU(LOIN Non-Detected C) Urine THC Non-Detecte d LAB LUBUP(LOIN Non-Detected C) Urine Buprenorphine Non-Detecte d Result Comment: Urine Drug Cutoff Levels Urine Amphetamine 500 ng/mL Urine Barbituate 200 ng/mL Urine Benzodiazepines 150 ng/mL Urine Cocaine 150 ng/mL Urine Methamphetamines 500 ng/mL Urine Methadone 200 ng/mL Urine Opiates 100 ng/mL Urine Oxycodone 100 ng/mL Urine Phencyclidine (PCP) 25 ng/mL Urine Propoxyphene 300 ng/mL Urine Tricyclics 300 ng/mL Urine THC 50 ng/mL Urine Buprenorphine 10 ng/mL The results of these analytes are unconfirmed and reported qualitatively as detected or non-detected relative to the cutoff value. Detected results indicate the sample is likely to contain the analyte. Non-detected results indicate that either the sample does not contain the analyte or it is present in concentrations below the cutoff level. This drug screen should be used for medical diagnostic purposes only. Testing Performed at: [place] [id number] Performed By: #### LUDR2 #### [place] [address] HEMOGRAM/DIFF Collected: 01/20/2018 Status: F Source: [facility] 5:10 PM HEALTH SYSTEM REPOSITORY TYPE CODE TESTS RESULT OUT OF REFERENCE UNITS RANGE LAB LWBC(LOINC 4.8-10.8 thou/cmm ) WBC 8.8 LAB LRBC(LOINC 4.20-5.40 mil/cmm ) Low RBC 4.18 LAB LHGB(LOINC 12.0-16.0 g/dL ) Hgb 12.8 LAB LHCT(LOINC 37.0-47.0 % ) Hct 39.4 LAB LMCV(LOINC 81.0-99.0 fl ) MCV 94.3 LAB LMCH(LOINC 27.0-31.0 pg ) MCH 30.6 LAB LMCHC(LOIN 32.0-36.0 % C) MCHC 32.5 LAB LRDW(LOINC 11.5-15.9 % ) RDW 14.4 LAB LPLT(LOINC 150-400 thou/cmm ) Platelet 352 LAB LMPV(LOINC 7.1-10.5 fl ) MPV High 10.8 LAB LSEGT(LOIN % C) Seg Neutrophil 66.3 LAB LLYMP(LOIN % C) Lymphocyte 22.4 LAB LMNO(LOINC % ) Monocyte 9.2 LAB KAUSHAL(LOINC % ) Eosinophil 1.8 LAB LBASO(LOIN % C) Basophil 0.3 LAB LSEGN(LOIN 3.00-5.67 thou/cmm C) Abs. High Neut (ANC) 5.83 LAB LLYMN(LOIN 1.50-3.65 thou/cmm C) Abs. Lymph 1.97 LAB LMONN(LOIN 0.20-1.00 thou/cmm C) Abs. Payne 0.81 LAB LEOSN(LOIN 0.00-0.41 thou/cmm C) Abs. Eosin 0.16 LAB LBASN(LOIN 0.00-0.08 thou/cmm C) Abs. Baso 0.03 Performed By: #### LCBCD #### [facility] [address] [address] COMPREHENSIVE PANEL Collected: 01/20/2018 Status: F Source: [facility] 5:10 PM HEALTH SYSTEM REPOSITORY TYPE CODE TESTS RESULT OUT OF REFERENCE UNITS RANGE LAB [employer] ASS[employer]IATE(LOINC) 136-145 mEq/L Sodium Blood 140 LAB LK(LOINC) 3.5-5.1 mEq/L Potassium Blood 4.4 LAB LCL(LOINC) 98-107 mEq/L Chloride High Blood 110 LAB LCO2(LOINC 21-32 mEq/L ) CO2 Blood 21 LAB LGLU(LOINC 70-99 mg/dL ) Glucose Blood 93 LAB LBUN(LOINC 7-25 mg/dL ) BUN Blood 21 LAB LCREA(LOIN 0.51-0.95 mg/dL C) Creatinine Blood 0.94 LAB LCA(LOINC) 8.5-10.1 mg/dL Calcium Blood 9.2 LAB LALB(LOINC 3.4-5.0 g/dL ) Albumin Blood 4.0 LAB LTP(LOINC) 6.4-8.2 g/dL Total Protein 7.4 LAB LAST(LOINC 15-37 U/L ) AST-SGOT Blood 22 LAB LALT(LOINC 14-63 U/L ) ALT-SGPT Blood 23 LAB LALKP(LOIN 46-116 U/L C) Alk Phosphatase 57 LAB LBILT(LOIN 0.2-1.0 mg/dL C) Total Bilirubin 0.2 LAB LANGP(LOIN 8-20 C) Anion Gap 13 LAB LBNCR(LOIN 10-20 C) High BUN/Creatinine 22 Ratio Performed By: #### LP14 #### [facility] [address] [address] HCG,TOTAL Collected: 01/20/2018 Status: F Source: [facility] 5:10 PM HEALTH SYSTEM REPOSITORY TYPE CODE TESTS RESULT OUT OF RANGE REFERENCE UNITS LAB LHCG(LOINC) mIU/mL HCG,Total <1.0 Result Comment: Male <2 Non- female <6 female 0-1 Week 0 - 50 1-2 Weeks 40 - 300 2-3 Weeks 100 - 1000 3-4 Weeks 500 - 6000 1-2 Months 5000 - [id number] 2-3 Months [id number] - [id number] 2nd Trimester 3000 - 36646 The concentration of hCG in maternal serum rises rapidly in early . hCG levels less than 25 mIU/mL do NOT exclude . A further sample should be tested after 48 hours if is suspected. Performed By: #### LHCG #### [facility] [address] [address] MDRD EGFR Collected: 01/20/2018 Status: F Source: [facility] 5:10 PM HEALTH SYSTEM REPOSITORY TYPE CODE TESTS RESULT OUT OF RANGE REFERENCE UNITS LAB LGFRF(LOINC >60mL/min/1.73m ) 2 eGFR >60 Result Comment: If the patient is , multiply the result by 1.210. Performed By: #### LGFR #### [place] [address] TROPONIN I Collected: 01/20/2018 Status: F Source: [facility] 5:10 PM HEALTH SYSTEM REPOSITORY TYPE CODE TESTS RESULT OUT OF REFERENCE UNITS RANGE LAB LTRP(LOINC) <=0.07 ng/mL Troponin I <0.03 Performed By: #### LTRP #### [place] [address] D-DIMER QUANTITATIVE Collected: 01/20/2018 Status: F Source: [facility] 5:10 HEALTH SYSTEM REPOSITORY TYPE CODE TESTS RESULT OUT OF REFERENCE UNITS RANGE LAB LDMR(LOINC <450 ng/mL(FEU) ) D-Dimer Quantitative 369 Result Comment: The cutoff level recommended for the exclusion of deep vein thrombosis (DVT) or pulmonary embolism (PE) is 450 ng/mL(FEU). It is recommended that DVT or PE exclusion be restricted to suspected outpatients with a low to moderate pretest probability model. Performed By: #### LDMR #### [place] [id number] ED PROV NOTE Observed: 01/20/2018 Status: COMPLETED Source: [place] 5:06 PM [facility] REPOSITORY HNO ID: [id number] Author: Denisa Browning MD Service: Emergency Medicine Author Type: Physician Type: ED Provider Notes Filed: 01/20/2018 7:24 PM Note Text: ED Provider Note Patient Name: Chrissie Cr SERVICE DATE: 01/20/18 History Patient presents with: Chest Pain The patient reports numerous episodes of this exact type of pain for the past 20 years. She reports she had ASD and aortic valve repair about 1999. Has had numerous DVT/PE's but has not been on blood thinners for at least 2 years. All of her testing was done at [facility] or [facility] and her wire walker was murdered last year. Most recent echo about 18 months ago and has a new one scheduled. No known gallblodder disease. Pulmonary hypertension Left oophorectomy for torsion No DM, HTN, renal disease Has reflux. Unclear why this pain was so severe that she was frightened and called 911. Agrees we can contact those hospitals Smokes Admits she is wheezing History provided by: Patient and EMS personnel electronic sales and service technician used: No Chest Pain Pain location: Substernal area Pain quality: aching and crushing Pain radiates to: Does not radiate Pain severity: Severe Onset quality: Sudden (onset while driving. 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 - Fibromyalgia - Hypertension - Irritable bowel syndrome - Leiomyosarcoma (HCC) - Major depression, recurrent (HCC) - Mitral valve disorders(424.0) MVP with regurge - PTSD (post-traumatic stress disorder) - Pulmonary embolism (HCC) 2001, 10/01/2015 bilateral PE's after TKA 10/01/2015 - SBE (subacute bacterial endocarditis) prophylaxis candidate due to h/o aortic valve repair - Stroke (HCC) - TIA (transient ischemic attack) - Unspecified asthma(493.90) - Unspecified migraine PAST SURGICAL HISTORY Procedure Laterality Date - BREAST LUMPECTOMY HX Right 2013 - DELIVERY ONLY 05/02/2006 , low cervical - COLONOSCOPY 11/22/2003 normal - COLONOSCOPY 09/23/14 negative biopsies, Dr. Aguilera [facility]astro - COLPOSCOPY (VAGINOSCOPY) 07/02/2006 Colposcopy - EGD W/O OR W/BRUSH/WASH 09/01/13 non-severe reflux esophagitis, bilious gastic fluid - EGD W/O OR W/BRUSH/WASH 11/03/2015 EGD: retained food, no active bleeding. otherwise unremarkable. 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 - TOTAL KNEE REPLACEMENT Bilateral 09/20/2015 bilateral TKA FAMILY HISTORY Problem Relation Age of Onset - Breast Cancer Mother 36 - Stroke Mother - Coronary Artery Disease Mother 46 [place] x 2 - Hyperlipidemia Mother - other (ovarian cysts, BINDU-BSO, GI polyps) Mother - other (Fatty Liver) Mother - other (epilepsy) Mother - other (back pain) Mother spinal stimulator - other (back pain) Father pain pump - other (kidney stones) Father paternal uncle and grandmother also - Coronary Artery Disease Maternal Grandmother - COPD Maternal Grandmother - Diabetes Maternal Grandmother - COPD Maternal Grandfather - other (Lung cancer) Maternal Grandfather at 68 - other (Thyroid nodules, skin bumps) Paternal Grandmother - other (Bone cancer) Paternal Grandfather at 50 - other (uterine fibroids) Maternal Aunt BINDU @ 18 - other (Uterine Fibroids) Maternal Aunt BINDU - other (HLRCC) Paternal Uncle - other (HLRCC) Other Paternal Cousin Social History Social History Main Topics - Smoking status: Never Smoker - Smokeless tobacco: Never Used - Alcohol use Yes Comment: Occasionally, 3-4 drinks per year - Drug use: No - Sexual activity: Not Currently Partners: Male ALLERGIES Allergen Reactions - Erythromycin Vomiting - Amitriptyline Other: See Comments sweating - Amoxicillin Rash REACTION WHEN SHE WAS A CHILD - Benadryl [Diphenhyd* Other: See Comments Muscle spasms - Celecoxib Other: See Comments - Cymbalta [Duloxetin* Other: See Comments Worsened depression - Levaquin [Levofloxa* Hives bilsters over entire body - Meloxicam Intolerance Caused pt to have restless legs and arms - Savella [Milnacipra* Other: See Comments Elevated BP, ? rhabdomyolysis - Tylenol [Acetaminop* GI Upset Review of Systems Constitutional: Negative for activity change and fever. HENT: Negative. Eyes: Negative. Respiratory: Positive for wheezing. Negative for shortness of breath. Cardiovascular: Positive for chest pain. Gastrointestinal: Negative for abdominal pain and heartburn. Genitourinary: Negative. Musculoskeletal: Negative for back pain. Neurological: Negative for speech difficulty. Psychiatric/Behavioral: Negative. Physical Exam BP 158/81 Pulse 60[NSR[ Temp (Src) 97.1 (Oral) Resp 16 Ht 5' 3 (1.60m) Wt 185 lb (83.9kg) SpO2 100% BMI 32.78 kg/(m2). Physical Exam Constitutional: She is oriented to person, place, and time. She appears well-developed and well-nourished. She appears distressed. HENT: Head: Normocephalic and atraumatic. Right Ear: External ear normal. Left Ear: External ear normal. Eyes: Pupils are equal, round, and reactive to light. No scleral icterus. Neck: Normal range of motion. Neck supple. Cardiovascular: Normal rate, regular rhythm, normal heart sounds and intact distal pulses. No murmur heard. Pulmonary/Chest: Effort normal. No respiratory distress. She has wheezes. She exhibits no tenderness. Specifically no chest wall tenderness on the posterior right. Abdominal: Soft. She exhibits no distension. Musculoskeletal: Normal range of motion. She exhibits no tenderness. Sitting cross legged on the bed in no distress. Able to move abaout easily for exam Neurological: She is alert and oriented to person, place, and time. Skin: Skin is warm and dry. She is not diaphoretic. Psychiatric: She has a normal mood and affect. Nursing note and vitals reviewed. Diagnostic Testing ED Labs Ordered and Reviewed COMPREHENSIVE METABOLIC PANEL (AK,AV,EU,FV,HL,MARCELINO,MM,SP) - Abnormal; Notable for the following: Result Value Ref Range Chloride 110 (*) 98 - 107 mEq/L BUN/CREATININE RATIO 22 (*) 10 - 20 All other components within normal limits CBC + AUTO DIFF (AK,AV,EU,FV,HL,MARCELINO,MM,SP) - Abnormal; Notable for the following: RBC 4.18 (*) 4.20 - 5.40 mil/cmm MPV 10.8 (*) 7.1 - 10.5 fl Abs. Neut(Anc) 5.83 (*) 3.00 - 5.67 thou/cmm All other components within normal limits URINALYSIS WITH MICROSCOPIC (EU,FV,HL,MARCELINO,MM,SP) - Abnormal; Notable for the following: Leukocytes Esterase 1+ (*) Negative Bacteria Urine (Manual) FEW (*) None All other components within normal limits TROPONIN I (AK) D-DIMER (AK,AV,EU,FV,HL,MARCELINO,MM,SP) HCG QUANTITATIVE BLOOD (AK,AV,EU,FV,HL,MARCELINO,MM,SP) MEDTOX SCREEN, URINE (AK) MDRD GFR Procedures ED Course / Clinical Impression ED Course as of Jan 21 1924 Denisa Browning's Documentation Tue Jan 20, 2018 1745 CBC ok WBC: 8.8 1755 Leukocytes Esterase: (!) 1+ 1755 Bacteria Urine (Manual): (!) FEW 1755 HCG: <1.0 1840 All labs reviewed Troponin I: <0.03 1903 D-Dimer, Quant.: 369 1903 Repeat EKG nothing acute very slightly elevated QT from earlier. Review of the old records shows this has been an issue before 1919 Reviewed and discussed all. She is comfortable now and now longer wheezing. Can take a deep breath. We feel 2 percocets will handle the pain for now and she can followup with her back pain doctor tomorrow. Nothing to indicate acute life threatening condition at this time. Clinical Impressions as of Jan 21 1924 Chest pain, non-cardiac MDM / Disposition / Plan Patient asked EMS and nursing and me for fentanyl or morphine for her chest pain. Advised with normal EKG no currently indicated. In 1999 at the time of ASD repair she also had unknown repair to aortic and mitral valve with residual mild AI. Normal cardiac cath at the time of this repair Pages of documentes at 1820 ED visit chimacum 12/25/17 LE injury. 11/11/17 CTA chest NO PE or other abnormality 07/18/17 CT ab compared with same May 2016 only bilateral ovarian cysts History of knee replacement Neg sleep study in 2016 Normal EEG in 2017 Discharge 02/02/17 from [facility]. Dx chest pain that was described as new non exertional , cough, H/O AV repair, SOB, ASD repair. Prolong QT, has chronic AI, anxiety, arthritis, exercise induced asthma, fibromyalgia, HTN, migriane, pulmonary hypertension, leimyosarcoma, With neg stress echo, and negative Chest xray , CT cervical spine, CT brain. She had a CARDIAC CATHETERIZATION THAT WAS NEGATIVE on 02/01/17 Long QT at time of above hospitalization thought to be secondary to low calcium Review of old medical records show all of the above. Cardiac pain, pneumonia, GERD, cholelithiasis considered as differential diagnoses. Differential diagnoses were considered less likely because of the following reasons HANDPANDER eval exclude. Additional Tests or Interventions: ECG (second EKG essentially unchanged. very minor increase in QT but insignificant to treat) EKG INTERPRETATION: Ordered and Reviewed Rhythm: Normal sinus rhythm Rate: [place]: Normal axis Intervals: Normal [place] interval QRS Complex: Normal ST Segment: Normal ST-T segments QT Interval: Normal Compared with Prior: Interpretation performed by Denisa Browning MD Disposition The patient was discharged. Counseled patient and family regarding suspected diagnosis, radiology results and lab results. As well as the need for follow-up. Discharged home with verbal and written instructions. They were instructed to return as needed for persistent or worsening symptoms or any new concerns. Condition at disposition is stable and improved. SIGNATURE: MD Denisa Gomez MD 01/20/18 1924 PROGRESS Observed: 01/01/2018 Status: COMPLETED Source: [place] 3:24 PM [facility] REPOSITORY HNO ID: [id number] Author: Lila Gomez Service: (none) Author Type: Physician Data Analytics Analyst Type: Progress Notes Filed: 01/01/2018 3:30 PM Note Text: 37 year old female with c/o fell down steps in dark. Hurt left leg. Went to [facility] ED and had normal xray. Still painful. Making hip hurt due to walking abnormally. HISTORIES FAMILY HISTORY Problem Relation Age of Onset - Breast Cancer Mother 36 - Stroke Mother - Coronary Artery Disease Mother 46 [place] x 2 - Hyperlipidemia Mother - ovarian cysts, BINDU-BSO, GI polyps [OTHER] Mother - Fatty Liver [OTHER] Mother - epilepsy [OTHER] Mother - back pain [OTHER] Mother spinal stimulator - back pain [OTHER] Father pain pump - kidney stones [OTHER] Father paternal uncle and grandmother also - Coronary Artery Disease Maternal Grandmother - COPD Maternal Grandmother - Diabetes Maternal Grandmother - COPD Maternal Grandfather - Lung cancer [OTHER] Maternal Grandfather at 68 - Thyroid nodules, skin bumps [OTHER] Paternal Grandmother - Bone cancer [OTHER] Paternal Grandfather at 50 - uterine fibroids [OTHER] Maternal Aunt BINUD @ 18 - Uterine Fibroids [OTHER] Maternal Aunt BINDU - HLRCC [OTHER] Paternal Uncle - HLRCC [OTHER] Other Paternal Cousin 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 - Fibromyalgia - Hypertension - Irritable bowel syndrome - Leiomyosarcoma (HCC) - Major depression, recurrent (HCC) - Mitral valve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 Dictated by : ORI GAUTHIER MD This examination was interpreted and the report reviewed and electronically signed by: ORI GAUTHIER MD on Nov 27 2017 3:38PM EST [id number] PROGRESS Observed: 11/27/2017 Status: COMPLETED Source: [place] 2:49 PM [facility] REPOSITORY HNO ID: [id number] Author: Lucie Elizondo (Rt) Odessa Beal Service: (none) Author Type: Stone And Plate Preparer Apprentice Type: Progress Notes Filed: 11/27/2017 2:56 PM Note Text: Radiology Service Progress Note PATIENT NAME: Chrissie Cr DATE OF SERVICE: November 27, 2017 TIME: 2:49 PM PATIENT IDENTITY VERIFICATION COMPLETED USING TWO (2) METHODS: Patient confirmed name verbally and Date of . PATIENT GENDER DATA: Female. status: : No status: NO. PATIENT RELEVANT IMPLANT DATA REVIEWED: Not Applicable RADIOLOGY DEPARTMENT: General X-ray: Exam(s) Completed: Chest X-Ray PERIPHERAL IV DATA: Not applicable SIGNED BY: RT Lamont November 27, 2017 2:49 PM CNOV Observed: 11/27/2017 Status: COMPLETED Source: [place] 2:00 PM [facility] REPOSITORY Office Visit (FAMPWS) CHRISSIE CR ([id number]) 1980 F HPR Date Time Provider Department 11/27/17 2:00 PM [facility] During your visit today, we recorded the following information about you: Temperature Pulse Respiration Blood pressure 99.5 degrees 68/minute 20/minute 112/72 Weight 84.4 kg Cinthia Nicolas APRN.CNP 11/27/2017 2:54 PM Signed 37 year old female with c/o URI sx over the last week. Refers last year was in the hospital on a ventilator with pneumonia. Refers that she was at the ER on Friday. Refers that they gave her three breathing treatments while there. They started on prednisone and tessalon. Pt reports no chest xray. Reports that the tessalon isn't helping cough. She is using albuterol MDI 4-6 times daily. Sore throat: No. Runny/stuffy nose: Yes. Postnasal drip: Yes. Throat clearing: No. Sinus pain/ pressure: No. Teeth pain: No. Headache No. Body aches No. Ear pain: No. Cough: Yes. Production: No. Fever: Yes. States around 100. Hx asthma Yes. Hx pneumonia Yes. Smoker: Yes. Refers one cigarette daily since this started. OTC meds tried: prednisone and tessalon. States prednisone twice daily X 10 days. 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 Myofascial Pain Lumbago Cervicalgia Syringomyelia (Hcc) Anxiety Insomnia Congenital Musculoskeletal Deformity of Spine Ddd (Degenerative Disc Disease), Lumbar Genital Warts SI joint arthritis Edema Exercise-Induced Asthma Gerd (Gastroesophageal Reflux Disease) Htn (Hypertension) Elevated Lfts Controlled Substance Agreement Signed Dysphagia Severe Episode of Recurrent Major Depressive Disorder, Without Psychotic Features (Hcc) Leiomyosarcoma (Hcc) Primary Osteoarthritis of Both Knees S/P Total Knee Replacement, Bilateral Right Leg Dvt (Hcc) Pulmonary Emboli (Hcc) Lacunar Infarct, Acute (Hcc) Homocystinemia (Hcc) Chronic Si Joint Pain Current Outpatient Prescriptions: predniSONE (DELTASONE) 20 mg tablet Take 20 mg by mouth twice daily. Disp: Rfl: albuterol (PROVENTIL) 2.5 mg /3 mL (0.083 %) nebulizer solution Use 3 mL via nebulizer every 6 hours as needed for Wheezing/Shortness of Breath. Use over 5-15minutes. Disp: 120 Vial Rfl: 1 oxaprozin (DAYPRO) 600 mg tablet Take 2 tablets by mouth once daily. Disp: 60 tablet Rfl: 2 carvedilol (COREG) 6.25 mg tablet Take 1 tablet by mouth twice daily with meals. Disp: 60 tablet Rfl: 11 tiZANidine (ZANAFLEX) 4 mg tablet Take 1 tablet by mouth every 8 hours as needed. Disp: 90 tablet Rfl: 0 medroxyPROGESTERone (DEPO-PROVERA) 150 mg/mL syrg INJECT 1ML INTRAMUSCULARLY EVERY 12 WEEKS Disp: 1 Syringe Rfl: 1 gabapentin (NEURONTIN) 400 mg capsule Take 400 mg by mouth four times daily. Disp: Rfl: montelukast (SINGULAIR) 10 mg tablet Take 1 tablet by mouth daily at bedtime. Disp: 30 tablet Rfl: 1 famotidine (PEPCID) 20 mg tablet Take 1 tablet by mouth twice daily. Disp: 60 tablet Rfl: 11 traZODone (DESYREL) 150 mg tablet Take 1 tablet by mouth daily at bedtime. Disp: Rfl: 0 levETIRAcetam (KEPPRA) 750 mg tablet Take 2 tablets by mouth twice daily. Disp: Rfl: 0 clonazePAM (KLONOPIN) 0.5 mg tablet Take 0.5 mg by mouth at bedtime as needed. Disp: Rfl: albuterol HFA (VENTOLIN HFA) 90 mcg/actuation inhaler Inhale 2 Puffs as instructed every 4 hours as needed. Disp: 1 Inhaler Rfl: 0 COMPOUNDED PRESCRIPTION Nebulizer Disp: 1 Each Rfl: 0 methylPREDNISolone (MEDROL DOSE-PACK) 4 mg Dose-Pack Take 1 tablet by mouth once daily for 6 days. As Instructed per package Disp: 1 Package Rfl: 0 gabapentin (NEURONTIN) 400 mg capsule Take 1 capsule by mouth four times daily for 30 days. Disp: 120 capsule Rfl: 2 albuterol (PROVENTIL) 5 mg/mL nebu Inhale 0.5 mL as instructed one time only for 1 dose. 1 DOSE NOW - BACK OFFICE. PLACE 0.5 ML PER DROPPER AND 2.5 ML OF NORMAL SALINE INTO RESERVOIR. Disp: 1 mL Rfl: 0 COMPOUNDED PRESCRIPTION BLOOD PRESSURE CUFF FOR HOME USE. DX: LABILE BLOOD PRESSURE Disp: 1 Each Rfl: 0 No current facility-administered medications for this visit. OBJECTIVE: BP 112/72 Pulse 68 Temp 37.5 ?C (99.5 ?F) (Tympanic) Resp 20 Wt 84.4 kg (186 lb) SpO2 93% BMI 32.95 kg/m? General Appearance: Well appearing, alert, in no acute distress, well-hydrated, well nourished.. Skin: Skin color, texture, turgor normal, no suspicious rashes or lesions. Head: Normocephalic, no masses, lesions, tenderness or abnormalities. Eyes: Anicteric sclera. Extraocular movements are intact. . Ears: External ears normal, canals clear, Normal TMs bilaterally. Nose/Sinuses: Nares normal, septum midline, mucosa normal, no drainage or sinus tenderness. Oropharynx: Lips, mucosa, and tongue normal, teeth and gums normal, oropharynx normal. Neck: Supple, no adenopathy Lungs: Scattered expiratory wheezes throughout. Heart: RRR without murmur, gallop, or rubs. No ectopy. Neurologic: Gait normal. ASSESSMENT/PLAN: 1. Bronchitis - ICD9: 490, ICD10: J40 (primary diagnosis) - XR CHEST 2V FRONTAL/LAT - DOXYCYCLINE MONOHYDRATE 100 MG CAPSULE - continue prednisone. 2. Exercise-induced asthma - ICD9: 493.81, ICD10: J45.990 Mild intermittent Asthma worse - Continue current meds - Avoidance of triggers recommended - COMPOUNDED PRESCRIPTION 3. Cough - ICD9: 786.2, ICD10: R05 - PROMETHAZINE-DM 6.25 MG-15 MG/5 ML SYRUP Discussed treatment plan and patient voices understanding. Patient's questions answered appropriately. Medications and potential side effects were discussed and patient voices understanding. Return to the office as scheduled or as needed for worsening/no improvement. KATHI Nichols APRN.CNP 11/27/2017 2:16 PM Signed 1. Get chest xray. 2. Start doxy -- one twice daily X 10 days. 3. Continue prednisone. 4. Cough syrup to the pharmacy. 5. Lot of fluids. 6. Get nebulizer machine. Referring Provider: SELF [200] Allergies As of Date: 11/27/2017 Noted Allergy Reaction ERYTHROMYCIN 09/26/2005 11 - Vomiting AMITRIPTYLINE 05/29/2015 14 - Other: See Comments Comments: sweating AMOXICILLIN 12/02/2000 2 - Rash Comments: REACTION WHEN SHE WAS A CHILD BENADRYL (DIPHENHYDRAMINE HCL) 12/14/2013 14 - Other: See Comments Comments: Muscle spasms CELECOXIB 14 - Other: See Comments CYMBALTA (DULOXETINE) 04/11/2014 14 - Other: See Comments Comments: Worsened depression LEVAQUIN (LEVOFLOXACIN) 04/16/2016 4 - Hives Comments: bilsters over entire body MELOXICAM 10/16/2012 5 - Intolerance Comments: Caused pt to have restless legs and arms SAVELLA (MILNACIPRAN) 05/29/2015 14 - Other: See Comments Comments: Elevated BP, ? rhabdomyolysis TYLENOL (ACETAMINOPHEN) 09/30/2012 8 - GI Upset Date Reviewed: 11/27/2017 Reviewed by: Geena Gates LPN - Fully Assessed Reason for Visit: Cough [28] Cmt: x 1 week moist sounding Nasal Congestion [235] Cmt: with yellow drainge Primary Visit Diagnosis:Bronchitis [J40] Other Visit Diagnoses:Exercise-induced asthma [J45.990] Cough [R05] Order(s):famotidine (PEPCID) 20 mg tabletTake 1 tablet by mouth twice daily.Disp: 60 tabletRfl: 11 COMPOUNDED PRESCRIPTIONNebulizerDisp: 1 EachRfl: 0 XR CHEST 2V FRONTAL/LAT [2377613] Order #: [id number] FUTURE doxycycline monohydrate (MONODOX) 100 mg capsuleTake 1 capsule by mouth twice daily.Disp: 20 capsuleRfl: 0 Promethazine-DM (PHENERGAN-DM) 6.25-15 mg/5 mL syrupTake 5 mL by mouth four times daily as needed.Disp: 120 mLRfl: 0 Prescriptions as of 11/27/2017 Sig: PREDNISONE 20 MG TABLET Take 20 mg by mouth twice bruce* FAMOTIDINE 20 MG TABLET Take 1 tablet by mouth twice * ALBUTEROL SULFATE 2.5 MG/3 ML* Use 3 mL via nebulizer every * OXAPROZIN 600 MG TABLET Take 2 tablets by mouth once * CARVEDILOL 6.25 MG TABLET Take 1 tablet by mouth twice * TIZANIDINE 4 MG TABLET Take 1 tablet by mouth every * MEDROXYPROGESTERONE 150 MG/ML* INJECT 1ML INTRAMUSCULARLY EV* GABAPENTIN 400 MG CAPSULE Take 400 mg by mouth four parviz* MONTELUKAST 10 MG TABLET Take 1 tablet by mouth daily * TRAZODONE 150 MG TABLET Take 1 tablet by mouth daily * LEVETIRACETAM 750 MG TABLET Take 2 tablets by mouth twice* CLONAZEPAM 0.5 MG TABLET Take 0.5 mg by mouth at bedti* ALBUTEROL SULFATE HFA 90 MCG/* Inhale 2 Puffs as instructed * COMPOUNDED PRESCRIPTION Nebulizer DOXYCYCLINE MONOHYDRATE 100 M* Take 1 capsule by mouth twice* PROMETHAZINE-DM 6.25 MG-15 MG* Take 5 mL by mouth four times* GABAPENTIN 400 MG CAPSULE Take 1 capsule by mouth four * ALBUTEROL SULFATE CONCENTRATE* Inhale 0.5 mL as instructed o* COMPOUNDED PRESCRIPTION BLOOD PRESSURE CUFF FOR HOME * Problem List As Of Date 11/27/2017 Noted Resolved 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 disorder [I35.9] Priority: A SUPERVIS OTHER NORMAL PREG [Z34.80] INVALID FOR*02/10/2008 THREATEN ABORT-ANTEPART [O20.0] INVALID FOR*02/10/2008 Migraine, unspecified, without mention of intra*INVALID FOR* Priority: A 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] INVALID FOR* Priority: C SUPRV HIGH-RISK PREG NOS [O09.90] INVALID FOR*02/10/2008 MILD/NOS PREECLAMP-ANTEP [[id number]] INVALID FOR*02/10/2008 ABDOMINAL PAIN LLQ [R10.32] INVALID FOR*02/10/2008 Abnormal mammogram, unspecified [R92.8] INVALID FOR*01/01/2016 Priority: C Status post aortic valve repair [Z98.890] INVALID FOR* Priority: A Myofascial pain [M79.1] INVALID FOR* Priority: D Thoracic sprain and strain [[id number]] INVALID FOR*07/12/2015 Priority: D Lumbago [M54.5] INVALID FOR* Priority: D More... 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 DDD (degenerative disc disease), lumbar [M51.36]INVALID FOR* Priority: D More... Genital warts [A63.0] INVALID FOR* Priority: E SI (sacroiliac) joint dysfunction [M53.3] INVALID FOR*07/12/2015 Priority: D SI joint arthritis [M46.98] INVALID FOR* Priority: D Edema [R60.9] INVALID FOR* Priority: A Exercise-induced asthma [J45.990] INVALID FOR* Priority: A GERD (gastroesophageal reflux disease) [K21.9] INVALID FOR* Priority: A HTN (hypertension) [I10] INVALID FOR* Priority: A Elevated LFTs [R94.5] INVALID FOR* Controlled substance agreement signed [Z79.899] INVALID FOR* Dysphagia [R13.10] INVALID FOR* Severe episode of recurrent major depressive di*INVALID FOR* More... 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 Pulmonary emboli (HCC) [I26.99] INVALID FOR* More... Lacunar infarct, acute (HCC) [I63.9] INVALID FOR* More... 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 Other instructions from your clinician: 1. Get chest xray. 2. Start doxy -- one twice daily X 10 days. 3. Continue prednisone. 4. Cough syrup to the pharmacy. 5. Lot of fluids. 6. Get nebulizer machine. Prescriptions ordered this encounter Disp Refills Start End FAMOTIDINE 20 MG TABLET 60 t* 11 11/27/2017 Route: ORAL Sig: Take 1 tablet by mouth twice daily. COMPOUNDED PRESCRIPTION 1 Ea* 0 11/27/2017 Class: Print RX Sig: Nebulizer DOXYCYCLINE MONOHYDRATE 100 MG CAPSU* 20 c* 0 11/27/2017 Route: ORAL Sig: Take 1 capsule by mouth twice daily. PROMETHAZINE-DM 6.25 MG-15 MG/5 ML S* 120 * 0 11/27/2017 Route: ORAL Sig: Take 5 mL by mouth four times daily as needed. Medications Discontinued During This Encounter methylPREDNISolone (MEDROL DOSE-PACK* 1 Pa* 0 11/14/2017 11/27/2017 Route: ORAL Sig: Take 1 tablet by mouth once daily for 6 days. As Instructed per package Disc: Course of therapy completed famotidine (PEPCID) 20 mg tablet 60 t* 11 10/24/2016 11/27/2017 Route: ORAL Sig: Take 1 tablet by mouth twice daily. Disc: Reason for discontinue is not on file. COMPOUNDED PRESCRIPTION 1 Ea* 0 11/24/2017 11/27/2017 Class: Print RX Sig: Nebulizer Disc: Reason for discontinue is not on file. Encounter Status:Closed by CINTHIA NICOLAS CNP on 11/27/17 PROGRESS Observed: 11/27/2017 Status: COMPLETED Source: [place] 1:59 PM [facility] [place] REPOSITORY O ID: [id number] Author: Cinthia Velasquez) Fidencio Service: (none) Author Type: Nurse Practitioner Type: Progress Notes Filed: 11/27/2017 2:54 PM Note Text: 37 year old female with c/o URI sx over the last week. Refers last year was in the hospital on a ventilator with pneumonia. Refers that she was at the ER on Friday. Refers that they gave her three breathing treatments while there. They started on prednisone and tessalon. Pt reports no chest xray. Reports that the tessalon isn't helping cough. She is using albuterol MDI 4-6 times daily. Sore throat: No. Runny/stuffy nose: Yes. Postnasal drip: Yes. Throat clearing: No. Sinus pain/ pressure: No. Teeth pain: No. Headache No. Body aches No. Ear pain: No. Cough: Yes. Production: No. Fever: Yes. States around 100. Hx asthma Yes. Hx pneumonia Yes. Smoker: Yes. Refers one cigarette daily since this started. OTC meds tried: prednisone and tessalon. States prednisone twice daily X 10 days. 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 Myofascial Pain Lumbago Cervicalgia Syringomyelia (Hcc) Anxiety Insomnia Congenital Musculoskeletal Deformity of Spine Ddd (Degenerative Disc Disease), Lumbar Genital Warts SI joint arthritis Edema Exercise-Induced Asthma Gerd (Gastroesophageal Reflux Disease) Htn (Hypertension) Elevated Lfts Controlled Substance Agreement Signed Dysphagia Severe Episode of Recurrent Major Depressive Disorder, Without Psychotic Features (Hcc) Leiomyosarcoma (Hcc) Primary Osteoarthritis of Both Knees S/P Total Knee Replacement, Bilateral Right Leg Dvt (Hcc) Pulmonary Emboli (Hcc) Lacunar Infarct, Acute (Hcc) Homocystinemia (Hcc) Chronic Si Joint Pain Current Outpatient Prescriptions: predniSONE (DELTASONE) 20 mg tablet Take 20 mg by mouth twice daily. Disp: Rfl: albuterol (PROVENTIL) 2.5 mg /3 mL (0.083 %) nebulizer solution Use 3 mL via nebulizer every 6 hours as needed for Wheezing/Shortness of Breath. Use over 5-15minutes. Disp: 120 Vial Rfl: 1 oxaprozin (DAYPRO) 600 mg tablet Take 2 tablets by mouth once daily. Disp: 60 tablet Rfl: 2 carvedilol (COREG) 6.25 mg tablet Take 1 tablet by mouth twice daily with meals. Disp: 60 tablet Rfl: 11 tiZANidine (ZANAFLEX) 4 mg tablet Take 1 tablet by mouth every 8 hours as needed. Disp: 90 tablet Rfl: 0 medroxyPROGESTERone (DEPO-PROVERA) 150 mg/mL syrg INJECT 1ML INTRAMUSCULARLY EVERY 12 WEEKS Disp: 1 Syringe Rfl: 1 gabapentin (NEURONTIN) 400 mg capsule Take 400 mg by mouth four times daily. Disp: Rfl: montelukast (SINGULAIR) 10 mg tablet Take 1 tablet by mouth daily at bedtime. Disp: 30 tablet Rfl: 1 famotidine (PEPCID) 20 mg tablet Take 1 tablet by mouth twice daily. Disp: 60 tablet Rfl: 11 traZODone (DESYREL) 150 mg tablet Take 1 tablet by mouth daily at bedtime. Disp: Rfl: 0 levETIRAcetam (KEPPRA) 750 mg tablet Take 2 tablets by mouth twice daily. Disp: Rfl: 0 clonazePAM (KLONOPIN) 0.5 mg tablet Take 0.5 mg by mouth at bedtime as needed. Disp: Rfl: albuterol HFA (VENTOLIN HFA) 90 mcg/actuation inhaler Inhale 2 Puffs as instructed every 4 hours as needed. Disp: 1 Inhaler Rfl: 0 COMPOUNDED PRESCRIPTION Nebulizer Disp: 1 Each Rfl: 0 methylPREDNISolone (MEDROL DOSE-PACK) 4 mg Dose-Pack Take 1 tablet by mouth once daily for 6 days. As Instructed per package Disp: 1 Package Rfl: 0 gabapentin (NEURONTIN) 400 mg capsule Take 1 capsule by mouth four times daily for 30 days. Disp: 120 capsule Rfl: 2 albuterol (PROVENTIL) 5 mg/mL nebu Inhale 0.5 mL as instructed one time only for 1 dose. 1 DOSE NOW - BACK OFFICE. PLACE 0.5 ML PER DROPPER AND 2.5 ML OF NORMAL SALINE INTO RESERVOIR. Disp: 1 mL Rfl: 0 COMPOUNDED PRESCRIPTION BLOOD PRESSURE CUFF FOR HOME USE. DX: LABILE BLOOD PRESSURE Disp: 1 Each Rfl: 0 No current facility-administered medications for this visit. OBJECTIVE: BP 112/72 Pulse 68 Temp 37.5 ?C (99.5 ?F) (Tympanic) Resp 20 Wt 84.4 kg (186 lb) SpO2 93% BMI 32.95 kg/m? General Appearance: Well appearing, alert, in no acute distress, well-hydrated, well nourished.. Skin: Skin color, texture, turgor normal, no suspicious rashes or lesions. Head: Normocephalic, no masses, lesions, tenderness or abnormalities. Eyes: Anicteric sclera. Extraocular movements are intact. . Ears: External ears normal, canals clear, Normal TMs bilaterally. Nose/Sinuses: Nares normal, septum midline, mucosa normal, no drainage or sinus tenderness. Oropharynx: Lips, mucosa, and tongue normal, teeth and gums normal, oropharynx normal. Neck: Supple, no adenopathy Lungs: Scattered expiratory wheezes throughout. Heart: RRR without murmur, gallop, or rubs. No ectopy. Neurologic: Gait normal. ASSESSMENT/PLAN: 1. Bronchitis - ICD9: 490, ICD10: J40 (primary diagnosis) - XR CHEST 2V FRONTAL/LAT - DOXYCYCLINE MONOHYDRATE 100 MG CAPSULE - continue prednisone. 2. Exercise-induced asthma - ICD9: 493.81, ICD10: J45.990 Mild intermittent Asthma worse - Continue current meds - Avoidance of triggers recommended - COMPOUNDED PRESCRIPTION 3. Cough - ICD9: 786.2, ICD10: R05 - PROMETHAZINE-DM 6.25 MG-15 MG/5 ML SYRUP Discussed treatment plan and patient voices understanding. Patient's questions answered appropriately. Medications and potential side effects were discussed and patient voices understanding. Return to the office as scheduled or as needed for worsening/no improvement. Cinthia Nicolas APRN.[facility] EMERGENCY DEPARTMENT Observed: 11/24/2017 Status: F Source: [place] SUMMARY 6:59 AM [facility] Medical Records Department [address] [place] [address] Emergency Department Summary 11/24/17 0207 MR#: [id number] Acct: [id number] Name: CHRISSIE CR Rep #: [id number] : 1980 37 From: Jaun Singh MD PCP: Bill Lou MD Status: DEP ER - ER Visit Summary Date of Service: 11/24/17 Chief Complaint: Asthma flare History of Present Illness: The patient is a 37 F history of asthma, mitral valve prolapse, prior DVT and PEs. Patient states that she started having wheezing last 3 days with nonproductive cough. Denies fever. Denies chest pain. Denies hemoptysis. States this feels like 1 of her prior asthma flares. She is currently on prednisone taper. Physical Examination: 37-year-old female vital signs are stable afebrile on 4 L 98%. Squad states she was 98% on room air at home. No hypoxia. H EENT exam unremarkable. Neck nontender no JVD. No lymphadenopathy. Lungs expiratory wheezes throughout both sides. Equal symmetrical. No rhonchi. No rales. Heart regular rhythm rate about 80 no murmur. Chest wall nontender. No subcu air. Abdomen soft nontender. Normal bowel sounds. No peritoneal signs. Moving all 4 extremities. Neurovascular intact. Calves nontender without edema or cords. Back exam nontender. Neurologically awake and alert with no focal motor deficits. Test Results: None Emergency Department Course and Treatment: Treated with p.o. prednisone and DuoNeb and albuterol aerosols. Treatment Plan: Repeat exam wheezing is much improved. She has good air movement. She will be discharged home. Disposition: Discharge Impression: Dyspnea secondary to acute exacerbation of asthma Tobacco abuse This note was generated with NeuroPace dictation software. It may contain incorrect words, spelling, and punctuation that were not noted in review of the chart prior to signing ED Disposition - Plan for ED Patient: Chief Complaint: Shortness of Breath Referrals: Bill Lou MD [Primary Care Provider] - What to do if you have Problems For any increased pain, shortness of breath, bleeding, nausea or vomiting, chest pain, or any unexpected problems, contact your Primary Care Provider. Call [facility] ([phone]) or report to the closest Emergency Room. Call 911 if necessary. 11/24/17 0659 <Electronically signed by Jaun Singh MD> Date Jaun Singh MD Cosigner Signature (If Indicated): Date CC: Bill Lou MD DISCHARGE INSTRUCTION Observed: 11/24/2017 Status: F Source: [place] 6:59 AM [facility] REPOSITORY [facility] Medical Records Department [address] [place] [address] Discharge Instruction 11/24/17 0209 MR#: [id number] Acct: [id number] Name: CHRISSIE CR Rep #: [id number] : 1980 37 From: Jaun Singh MD PCP: Bill Lou MD Status: DEP ER ED Disposition - Plan for ED Patient: Disposition: Home or Assisted Living Chief Complaint: Shortness of Breath Instructions: ED Bronchitis Asthmatic Prescriptions: Prednisone [Deltasone] 40 mg PO DAILY 5 Days tab Referrals: Bill Lou MD [Primary Care Provider] - 3-5 Days if not improving Additional Instructions: Absolutely must stop smoking. Prednisone 40 mg a day till gone. Stop your taper and just use 40 mg a day for the next 5 days. Follow-up with primary care physician or return to ER feeling a lot worse. What to do if you have Problems For any increased pain, shortness of breath, bleeding, nausea or vomiting, chest pain, or any unexpected problems, contact your Primary Care Provider. Call [facility] ([phone]) or report to the closest Emergency Room. Call 911 if necessary. 11/24/17 0659 <Electronically signed by Jaun Singh MD> Date Jaun Singh MD Cosigner Signature (If Indicated): Date CC: Bill Lou MD XR CHEST 2 VIEWS Observed: 11/22/2017 Status: F Source: [place] [facility] 8:59 PM [facility] REPOSITORY ORIGINAL XR CHEST 2 VIEWS CLINICAL STATEMENT: Shortness of breath/Cough/Fever. COMPARISON: Chest radiograph 09/24/2017, CTA chest 09/24/2017 FINDINGS: The heart is normal in size. The cardiomediastinal contours are normal. Median sternotomy wires are present. There is no focal consolidation, pleural effusion, vascular congestion, or pneumothorax. No a cute osseous abnormality is identified. IMPRESSION: No acute cardiopulmonary process. I have personally reviewed the images of this examination and agree with the resident's findings and interpretation. Interpreted By: Ori Sanchez MD Preliminary Report By: Lakisha Ochoa DO Electronically Signed By: Ori Sanchez MD Dictated Date: 11/22/2017 9:00:28 PM Prelim Date: 11/22/2017 9:01:45 PM Sign Date: 11/22/2017 9:05:52 PM EMERGENCY DEPARTMENT Observed: 11/19/2017 Status: F Source: [place] SUMMARY 1:03 AM [facility] Medical Records Department [address] [place] [address] Emergency Department Summary 11/18/17 2331 MR#: [id number] Acct: [id number] Name: CHRISSIE CR Rep #: [id number] : 1980 37 From: Neil Casiano MD PCP: Bill Lou MD Status: DEP ER - ER Visit Summary Date of Service: 11/18/17 Chief Complaint: Back pain History of Present Illness: The patient is a [address] Hills and Dr. Lou. She reports that she has back pain that is chronic, but worsened 2 weeks ago. It is a throbbing pain that is 10 out of 10 at worst 9-10 currently. Is worsened by movement. She relieved partially by heating pad, oxycodone, and prednisone. She reports that it radiates to her left buttock. She denies any numbness or weakness in her legs. She reports that she did have incontinence of bowel and urine earlier today. She denies any fever, chills, or abdominal pain. Physical Examination: Vitals: Stable. Afebrile. General: A AND O x 3. NAD. Cardiovascular exam: Regular rate and rhythm, no murmur, rub or gallop. Respiratory exam: Clear to auscultation bilaterally. No wheezes or stridor. Abdominal exam: Soft, nontender, nondistended, normal bowel sounds. No peritoneal signs. Back: Diffuse moderate tenderness to palpation over the lumbar spine and the paraspinous musculature in the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. No point tenderness. Negative straight leg bilaterally. 5/5 DF, PF, EHL bilaterally. Normal sensation to light touch throughout. Extremity: No clubbing, cyanosis, or edema. Emergency Department Course and Treatment: Patient refused a rectal exam and post void residual catheterization. She was given a dose of Toradol IM. I had a blunt discussion with the patient about pain control and intoxicating medications. This is her 18th visit to the emergency department this year. Her OARS report shows that she has had 10 prescriptions for opiates in the past year. She currently has an active prescription for Percocet. Treatment Plan: Patient will be discharged instructions to follow-up with her resin painter as soon as possible. Disposition: To home in improved and stable condition. Impression: 1. Acute on chronic back pain. This note was generated with NeuroPace dictation software. It may contain incorrect words, spelling, and punctuation that were not noted in review of the chart prior to signing ED Disposition - Plan for ED Patient: Disposition: Home or Assisted Living Chief Complaint: Back Instructions: ED Neck Back Pain General Referrals: Satya May [NON-STAFF] - As soon as possible What to do if you have Problems For any increased pain, shortness of breath, bleeding, nausea or vomiting, chest pain, or any unexpected problems, contact your Primary Care Provider. Call [facility] ([phone]) or report to the closest Emergency Room. Call 911 if necessary. 11/19/17 0103 <Electronically signed by Neil Casiano MD> Date Neil Casiano MD Cosigner Signature (If Indicated): Date CC: Bill Lou MD HOSP Observed: 11/17/2017 Status: COMPLETED Source: [place] 12:00 AM [facility] OTHER CAMPUS REPOSITORY Patient:Chrissei Cr MRN: <[id number]> Height:5' 2.992(1.6 m) Weight:186 lb (84.369 kg) Outpatient Medications as of 12/09/17: tiZANidine (ZANAFLEX) 4 mg tablet Promethazine-DM (PHENERGAN-DM) 6.25-15 mg/5 mL syrup predniSONE (DELTASONE) 20 mg tablet famotidine (PEPCID) 20 mg tablet COMPOUNDED PRESCRIPTION doxycycline monohydrate (MONODOX) 100 mg capsule albuterol (PROVENTIL) 2.5 mg /3 mL (0.083 %) nebulizer solution oxaprozin (DAYPRO) 600 mg tablet carvedilol (COREG) 6.25 mg tablet medroxyPROGESTERone (DEPO-PROVERA) 150 mg/mL syrg gabapentin (NEURONTIN) 400 mg capsule gabapentin (NEURONTIN) 400 mg capsule albuterol (PROVENTIL) 5 mg/mL nebu montelukast (SINGULAIR) 10 mg tablet traZODone (DESYREL) 150 mg tablet levETIRAcetam (KEPPRA) 750 mg tablet clonazePAM (KLONOPIN) 0.5 mg tablet albuterol HFA (VENTOLIN HFA) 90 mcg/actuation inhaler COMPOUNDED PRESCRIPTION Admission/Clinic Administered Medications as of 18: NaCl 0.9% iv infusion Problem List: 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 disorder [I35.9] Migraine, unspecified, without mention of intractable migraine without mention of status migrainosus [G43.909] 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] Status post aortic valve repair [Z98.890] Myofascial pain [M79.1] Lumbago [M54.5] Cervicalgia [M54.2] Syringomyelia (HCC) [G95.0] Anxiety [F41.9] Insomnia [G47.00] 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] DDD (degenerative disc disease), lumbar [M51.36] Genital warts [A63.0] SI joint arthritis [M46.98] Edema [R60.9] Exercise-induced asthma [J45.990] GERD (gastroesophageal reflux disease) [K21.9] HTN (hypertension) [I10] Elevated LFTs [R94.5] Controlled substance agreement signed [Z79.899] Dysphagia [R13.10] Severe episode of recurrent major depressive disorder, without psychotic features (HCC) [F33.2] 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] Primary osteoarthritis of both knees [M17.0] S/p total knee replacement, bilateral [Z96.653] Right leg DVT (HCC) [I82.401] Pulmonary emboli (HCC) [I26.99] Lacunar infarct, acute (HCC) [I63.9] 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] Chronic SI joint pain [M53.3, G89.29] Allergies: Erythromycin Amitriptyline Amoxicillin Benadryl [Diphenhydramine Hcl] Celecoxib Cymbalta [Duloxetine] Levaquin [Levofloxacin] Meloxicam Savella [Milnacipran] Tylenol [Acetaminophen] Date Verified: 12/09/17 Lab Values No results within the last 30 days for the following basenames: K,HCT Progress Notes ([facility]): Geena Tez MARKETING CONTENT MANAGER 12/03/2017 2:42 PM Signed Message from [employer]: Chrissie Cr would like a refill of the following medications: tiZANidine (ZANAFLEX) 4 mg tablet [Bill Lou MD] Preferred pharmacy: [facility] [address] [place] [address] Progress Notes ([facility]): Jasmin Stock MARKETING CONTENT MANAGER 12/01/2017 12:41 PM Signed Message from [employer]: Chrissie Cr would like a refill of the following medications: Promethazine-DM (PHENERGAN-DM) 6.25-15 mg/5 mL syrup [Cinthia Nicolas APRN.CNP] Preferred pharmacy: [facility] [address] [place] [id number] [place] [address] Cinthia Nicolas APRN.CNP 12/01/2017 5:07 PM Signed Script sent. Can close encounter if patient aware. Cinthia Nicolas APRN.CNP PROGRESS Observed: 11/14/2017 Status: COMPLETED Source: [place] 11:30 AM [facility] REPOSITORY O ID: [id number] Author: Satya May Service: (none) Author Type: Physician Type: Progress Notes Filed: 11/14/2017 3:30 PM Note Text: [facility] OFFICE NOTE DATE: November 14, 2017 Chief Complaint: chronic lower back SUBJECTIVE: Ms. Cr [facility] office for a follow up appointment regarding chronic lower back pain. She states that since the last visit symptoms have been worsening. The pain is located in the low back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 and radiates down the posterior leg. The pain is described as radiating, sharp and throbbing and is rated as 8 on a scale of 0-10. The patient Reports leg pain and leg weakness. Symptoms interfere with physical activity, work, sexual relations, walking, sleeping, sitting, bathing, driving, cooking, household cleaning, reaching for shelves and lifting. The pain is exacerbated by sitting, standing for long periods of time, forward flexion, lifting, getting up from sitting, lying down and walking. The pain is mitigated by injections. . She is not currently receiving medications through the [facility]. She is not having difficulty with her [facility] medications. The medications are partially effective. The patient states the last dose of Neurontin/gabapentin,DayPro and Zanaflex was taken at November 14, 2017. REVIEW OF SYSTEMS: Constitutional: (-) Fever (+) Night Sweats (-) Weight Gain (-) Weight Loss (+) Fatigue Cardiovascular: (+) Chest Pain (+) Palpitations (-) Lightheadedness (+) Swelling of Ankles (+) Hx Heart Surgery Respiratory: (+) Shortness of Breath (-) Cough (-) Wheezing (-) Snoring Gastrointestinal: (-) Incontinence (-) Abdominal Pain (-) Diarrhea (+) Constipation (-) Nausea/Vomiting (-) Heart Burn Endocrine: (-) Thyroid Disorder (-) Diabetes Hematologic: (-) Prolonged Bleeding (-) Easy Bruising Genitourinary: (-) Incontinence (-) Frequency (-) Urinary Urgency Skin: (-) Rashes (-) Itching (-) Other Lesions Neurologic: (-) Headache (-) Double Vision (-) Confusion (-) Paralysis Psychiatric: (+) Depression (+) Anxiety (-) Delusions (-) Hallucinations (-) Personal History of Alcohol or Substance Abuse (-) Family History of Alcohol or Substance Abuse 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 - Fibromyalgia - Hypertension - Irritable bowel syndrome - Leiomyosarcoma (HCC) - Major depression, recurrent (HCC) - Mitral valve disorders(424.0) MVP with regurge - PTSD (post-traumatic stress disorder) - Pulmonary embolism (HCC) 2001, 10/01/2015 bilateral PE's after TKA 10/01/2015 - SBE (subacute bacterial endocarditis) prophylaxis candidate due to h/o aortic valve repair - Stroke (HCC) - TIA (transient ischemic attack) - Unspecified asthma(493.90) - Unspecified migraine PAST SURGICAL HISTORY Procedure Laterality Date - BREAST LUMPECTOMY HX Right 2013 - DELIVERY ONLY 05/02/2006 , low cervical - COLONOSCOPY 11/22/2003 normal - COLONOSCOPY 09/23/14 negative biopsies, Dr. Aguilera [facility]astro - COLPOSCOPY (VAGINOSCOPY) 07/02/2006 Colposcopy - EGD W/O OR W/BRUSH/WASH 09/01/13 non-severe reflux esophagitis, bilious gastic fluid - EGD W/O OR W/BRUSH/WASH 11/03/2015 EGD: retained food, no active bleeding. otherwise unremarkable. 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 - TOTAL KNEE REPLACEMENT Bilateral 09/20/2015 bilateral TKA ALLERGIES Allergen Reactions - Erythromycin Vomiting - Amitriptyline Other: See Comments sweating - Amoxicillin Rash REACTION WHEN SHE WAS A CHILD - Benadryl [Diphenhyd* Other: See Comments Muscle spasms - Celecoxib Other: See Comments - Cymbalta [Duloxetin* Other: See Comments Worsened depression - Levaquin [Levofloxa* Hives bilsters over entire body - Meloxicam Intolerance Caused pt to have restless legs and arms - Savella [Milnacipra* Other: See Comments Elevated BP, ? rhabdomyolysis - Tylenol [Acetaminop* GI Upset Current Outpatient Prescriptions: tiZANidine (ZANAFLEX) 4 mg tablet Take 1 tablet by mouth every 8 hours as needed. medroxyPROGESTERone (DEPO-PROVERA) 150 mg/mL syrg INJECT 1ML INTRAMUSCULARLY EVERY 12 WEEKS oxaprozin (DAYPRO) 600 mg tablet Take 2 tablets by mouth once daily. gabapentin (NEURONTIN) 400 mg capsule Take 400 mg by mouth four times daily. carvedilol (COREG) 6.25 mg tablet Take 6.25 mg by mouth twice daily with meals. albuterol (PROVENTIL) 5 mg/mL nebu Inhale 0.5 mL as instructed one time only for 1 dose. 1 DOSE NOW - BACK OFFICE. PLACE 0.5 ML PER DROPPER AND 2.5 ML OF NORMAL SALINE INTO RESERVOIR. montelukast (SINGULAIR) 10 mg tablet Take 1 tablet by mouth daily at bedtime. famotidine (PEPCID) 20 mg tablet Take 1 tablet by mouth twice daily. albuterol (PROVENTIL) 2.5 mg /3 mL (0.083 %) nebulizer solution Use 3 mL via nebulizer every 6 hours as needed for Wheezing/Shortness of Breath. Use over 5-15minutes. COMPOUNDED PRESCRIPTION Nebulizer traZODone (DESYREL) 150 mg tablet Take 1 tablet by mouth daily at bedtime. levETIRAcetam (KEPPRA) 750 mg tablet Take 2 tablets by mouth twice daily. clonazePAM (KLONOPIN) 0.5 mg tablet Take 0.5 mg by mouth at bedtime as needed. albuterol HFA (VENTOLIN HFA) 90 mcg/actuation inhaler Inhale 2 Puffs as instructed every 4 hours as needed. COMPOUNDED PRESCRIPTION BLOOD PRESSURE CUFF FOR HOME USE. DX: LABILE BLOOD PRESSURE gabapentin (NEURONTIN) 400 mg capsule Take 1 capsule by mouth four times daily for 30 days. No current facility-administered medications for this visit. I have reviewed the nurses notes and I am aware of the family/social history. Since the last evaluation the medical history has not changed. PHYSICAL EXAMINATION: Vitals: Pulse 58 Ht 5' 3 (1.60m) Wt 0 lb (0.0kg) SpO2 98% Performed in conjunction with observation. The patient is alert and oriented x3. The patient is in no acute distress. Station and Gait: antalgic gait and favoring the right lower extremity Lungs: normal respiratory rate and rhythm. Cardiovascular: regular rate. Neck: Supple. The range of motion is intact. Back: Range of motion of the trunk was generally intact. Spine: Bilateral SI tenderness, positive dina test, positive sacral thrust Extremities: no reported edema or erythema. Left knee brace present Motor: Exhibits full strength in all four extremities. ASSESSMENT: Pt reports increased bilateral SI tenderness. She was involved in PT and had x6 sessions before injuring her left knee 4-6 weeks ago. She reports she tore a patella tendon and currently wearing a left knee immobilizer. This has caused gait disturbance as she is favoring her right leg. The pain has radiated into the right hip. She saw her PCP and had right hip manipulation on 11/12 which caused increased pain. She went to the ED that evening and was given a injection on toradol 60 mg. She previously had right and left SI RFA in 2014 with great results that lasted over 2 years. The insurance has denied the appeal. Discussed repeating the SI injections x2 and resubmitting for RFAs. She is currently on tizandine and daypro from her PCP. She is using heat. She has tried OTC salonpas and reports not effective. She has tried CBD cream and reports helpful Encounter Diagnosis ICD-10-CM 1. DDD (degenerative disc disease), lumbar M51.36 2. 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 Cervicalgia M54.2 OARRS website checked and validated. All prescriptions have been APPROPRIATELY filled. No suspicious activity was identified.- 11/14/2017 by Sarah Jean-Baptiste Ma Narcotic Agreement reviewed and signed?: N/A on November 14, 2017 Urine Panel: Lab Results Component Value Date Cannabinoid Quant, Urine <16 06/12/2015 Benzoylecognine Quant, Urine <24 06/12/2015 6-Acetylmorphine Quant, Urine <5 06/12/2015 Amphetamine Quant, Urine <5 06/12/2015 Methamphetamine Quant, Urine <8 06/12/2015 Buprenorphine Quant, Urine <20 06/12/2015 Norbuprenorphine Quant, Urine <20 06/12/2015 Methadone Quant, Urine <16 06/12/2015 EDDP Quant, Urine <6 06/12/2015 Tramadol Quant, Urine <25 06/12/2015 Desmethyltramadol Quant, Urine <20 06/12/2015 Fentanyl Quant, Urine <6 06/12/2015 Norfentanyl Quant, Urine <6 06/12/2015 Codeine Quant, Urine <11 06/12/2015 Morphine Quant, Urine <10 06/12/2015 Dihydrocodeine Quant, Urine <5 06/12/2015 Hydrocodone Quant, Urine <8 06/12/2015 Oxycodone Quant, Urine <5 06/12/2015 Hydromorphone Quant, Urine <5 06/12/2015 Oxymorphone Quant, Urine 250 (H) 06/12/2015 Creatinine,Ur Pain Anaya 10-20 06/12/2015 Urine pH, Pain Anyaa 4-10 06/12/2015 Specific [place],Ur Pain Anaya 1.002 06/12/2015 Oxidants,Ur Negative 06/12/2015 Specimen Quality, Ur Pain Anaya Possible sample dilution indicated. 06/12/2015 The pain panel was N/A PLAN: Prior available imaging studies were reviewed. Findings were discussed. Injection history was reviewed. Medication use and compliance were reviewed. 1. Ordered lumbar MRI for increase pain. Pt completed x6 PT sessions 2. Short rx for SI flare up. 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 As Instructed per package oxyCODONE-acetaminophen (PERCOCET) 5-325 mg tablet 20 tablet 0 Sig: Take 1 tablet by mouth every 4 hours as needed for Pain for up to 5 days. EFREN Class: C-II 3. Interventional procedure options discussed. Ordered bilateral SI injections x2. 4. Continue regular home exercise program. 5) F/U in 2 months Attending Note I have personally performed a face to face assessment of the patient and have reviewed the PA/SUPERVISOR MOLDING note. My hunt findings include: History is as above Exam is as above Assessment/Plan are as outlined. Other additions or changes: None Signature: Satya May MD Date: 11/14/2017 Time: 3:28 PM cc: Dr. Bill Lou MD cc: SELF Phone: N/A Fax: Results of consultation to be transmitted via electronic medical record for those providers who practice within [facility] or with access to [employer] via MD Connect, or via letter. CNOV Observed: 11/14/2017 Status: COMPLETED Source: [place] 11:10 AM [facility] REPOSITORY Office Visit (PNMDNA) CHRISSIE CR ([id number]) 1980 F HPR Date Time Provider Department 11/14/17 11:10 AM SATYA MAY PNMDNA During your visit today, we recorded the following information about you: Pulse Height 58/minute 1.6 m Satya May MD 11/14/2017 3:30 PM Signed [facility] OFF[facility] NOTE DATE: November 14, 2017 Chief Complaint: chronic lower back SUBJECTIVE: Ms. Cr presents to the [facility] ([facility]) office for a follow up appointment regarding chronic lower back pain. She states that since the last visit symptoms have been worsening. The pain is located in the low back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 and radiates down the posterior leg. The pain is described as radiating, sharp and throbbing and is rated as 8 on a scale of 0-10. The patient Reports leg pain and leg weakness. Symptoms interfere with physical activity, work, sexual relations, walking, sleeping, sitting, bathing, driving, cooking, household cleaning, reaching for shelves and lifting. The pain is exacerbated by sitting, standing for long periods of time, forward flexion, lifting, getting up from sitting, lying down and walking. The pain is mitigated by injections. . She is not currently receiving medications through the [facility]. She is not having difficulty with her [facility] medications. The medications are partially effective. The patient states the last dose of Neurontin/gabapentin,DayPro and Zanaflex was taken at November 14, 2017. REVIEW OF SYSTEMS: Constitutional: (-) Fever (+) Night Sweats (-) Weight Gain (-) Weight Loss (+) Fatigue Cardiovascular: (+) Chest Pain (+) Palpitations (-) Lightheadedness (+) Swelling of Ankles (+) Hx Heart Surgery Respiratory: (+) Shortness of Breath (-) Cough (-) Wheezing (-) Snoring Gastrointestinal: (-) Incontinence (-) Abdominal Pain (-) Diarrhea (+) Constipation (-) Nausea/Vomiting (-) Heart Burn Endocrine: (-) Thyroid Disorder (-) Diabetes Hematologic: (-) Prolonged Bleeding (-) Easy Bruising Genitourinary: (-) Incontinence (-) Frequency (-) Urinary Urgency Skin: (-) Rashes (-) Itching (-) Other Lesions Neurologic: (-) Headache (-) Double Vision (-) Confusion (-) Paralysis Psychiatric: (+) Depression (+) Anxiety (-) Delusions (-) Hallucinations (-) Personal History of Alcohol or Substance Abuse (-) Family History of Alcohol or Substance Abuse 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 - Fibromyalgia - Hypertension - Irritable bowel syndrome - Leiomyosarcoma (HCC) - Major depression, recurrent (HCC) - Mitral valve disorders(424.0) MVP with regurge - PTSD (post-traumatic stress disorder) - Pulmonary embolism (HCC) 2001, 10/01/2015 bilateral PE's after TKA 10/01/2015 - SBE (subacute bacterial endocarditis) prophylaxis candidate due to h/o aortic valve repair - Stroke (HCC) - TIA (transient ischemic attack) - Unspecified asthma(493.90) - Unspecified migraine PAST SURGICAL HISTORY Procedure Laterality Date - BREAST LUMPECTOMY HX Right 2013 - DELIVERY ONLY 05/02/2006 , low cervical - COLONOSCOPY 11/22/2003 normal - COLONOSCOPY 09/23/14 negative biopsies, Dr. Aguilera Gastro - COLPOSCOPY (VAGINOSCOPY) 07/02/2006 Colposcopy - EGD W/O OR W/BRUSH/WASH 09/01/13 non-severe reflux esophagitis, bilious gastic fluid - EGD W/O OR W/BRUSH/WASH 11/03/2015 EGD: retained food, no active bleeding. otherwise unremarkable. 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 - TOTAL KNEE REPLACEMENT Bilateral 09/20/2015 bilateral TKA ALLERGIES Allergen Reactions - Erythromycin Vomiting - Amitriptyline Other: See Comments sweating - Amoxicillin Rash REACTION WHEN SHE WAS A CHILD - Benadryl [Diphenhyd* Other: See Comments Muscle spasms - Celecoxib Other: See Comments - Cymbalta [Duloxetin* Other: See Comments Worsened depression - Levaquin [Levofloxa* Hives bilsters over entire body - Meloxicam Intolerance Caused pt to have restless legs and arms - Savella [Milnacipra* Other: See Comments Elevated BP, ? rhabdomyolysis - Tylenol [Acetaminop* GI Upset Current Outpatient Prescriptions: tiZANidine (ZANAFLEX) 4 mg tablet Take 1 tablet by mouth every 8 hours as needed. medroxyPROGESTERone (DEPO-PROVERA) 150 mg/mL syrg INJECT 1ML INTRAMUSCULARLY EVERY 12 WEEKS oxaprozin (DAYPRO) 600 mg tablet Take 2 tablets by mouth once daily. gabapentin (NEURONTIN) 400 mg capsule Take 400 mg by mouth four times daily. carvedilol (COREG) 6.25 mg tablet Take 6.25 mg by mouth twice daily with meals. albuterol (PROVENTIL) 5 mg/mL nebu Inhale 0.5 mL as instructed one time only for 1 dose. 1 DOSE NOW - BACK OFFICE. PLACE 0.5 ML PER DROPPER AND 2.5 ML OF NORMAL SALINE INTO RESERVOIR. montelukast (SINGULAIR) 10 mg tablet Take 1 tablet by mouth daily at bedtime. famotidine (PEPCID) 20 mg tablet Take 1 tablet by mouth twice daily. albuterol (PROVENTIL) 2.5 mg /3 mL (0.083 %) nebulizer solution Use 3 mL via nebulizer every 6 hours as needed for Wheezing/Shortness of Breath. Use over 5-15minutes. COMPOUNDED PRESCRIPTION Nebulizer traZODone (DESYREL) 150 mg tablet Take 1 tablet by mouth daily at bedtime. levETIRAcetam (KEPPRA) 750 mg tablet Take 2 tablets by mouth twice daily. clonazePAM (KLONOPIN) 0.5 mg tablet Take 0.5 mg by mouth at bedtime as needed. albuterol HFA (VENTOLIN HFA) 90 mcg/actuation inhaler Inhale 2 Puffs as instructed every 4 hours as needed. COMPOUNDED PRESCRIPTION BLOOD PRESSURE CUFF FOR HOME USE. DX: LABILE BLOOD PRESSURE gabapentin (NEURONTIN) 400 mg capsule Take 1 capsule by mouth four times daily for 30 days. No current facility-administered medications for this visit. I have reviewed the nurses notes and I am aware of the family/social history. Since the last evaluation the medical history has not changed. PHYSICAL EXAMINATION: Vitals: Pulse 58 Ht 5' 3 (1.60m) Wt 0 lb (0.0kg) SpO2 98% Performed in conjunction with observation. The patient is alert and oriented x3. The patient is in no acute distress. Station and Gait: antalgic gait and favoring the right lower extremity Lungs: normal respiratory rate and rhythm. Cardiovascular: regular rate. Neck: Supple. The range of motion is intact. Back: Range of motion of the trunk was generally intact. Spine: Bilateral SI tenderness, positive dina test, positive sacral thrust Extremities: no reported edema or erythema. Left knee brace present Motor: Exhibits full strength in all four extremities. ASSESSMENT: Pt reports increased bilateral SI tenderness. She was involved in PT and had x6 sessions before injuring her left knee 4-6 weeks ago. She reports she tore a patella tendon and currently wearing a left knee immobilizer. This has caused gait disturbance as she is favoring her right leg. The pain has radiated into the right hip. She saw her PCP and had right hip manipulation on 11/12 which caused increased pain. She went to the ED that evening and was given a injection on toradol 60 mg. She previously had right and left SI RFA in 2014 with great results that lasted over 2 years. The insurance has denied the appeal. Discussed repeating the SI injections x2 and resubmitting for RFAs. She is currently on tizandine and daypro from her PCP. She is using heat. She has tried OTC salonpas and reports not effective. She has tried CBD cream and reports helpful Encounter Diagnosis ICD-10-CM 1. DDD (degenerative disc disease), lumbar M51.36 2. 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 Cervicalgia M54.2 OARRS website checked and validated. All prescriptions have been APPROPRIATELY filled. No suspicious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 (Degenerative Disc Disease), Lumbar Genital Warts SI joint arthritis Edema Exercise-Induced Asthma Gerd (Gastroesophageal Reflux Disease) Htn (Hypertension) Elevated Lfts Controlled Substance Agreement Signed Dysphagia Severe Episode of Recurrent Major Depressive Disorder, 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 Disp: 90 tablet Rfl: 0 medroxyPROGESTERone (DEPO-PROVERA) 150 mg/mL syrg INJECT 1ML INTRAMUSCULARLY EVERY 12 WEEKS Disp: 1 Syringe Rfl: 1 oxaprozin (DAYPRO) 600 mg tablet Take 2 tablets by mouth once daily. Disp: 60 tablet Rfl: 2 gabapentin (NEURONTIN) 400 mg capsule Take 400 mg by mouth four times daily. Disp: Rfl: carvedilol (COREG) 6.25 mg tablet Take 6.25 mg by mouth twice daily with meals. Disp: Rfl: montelukast (SINGULAIR) 10 mg tablet Take 1 tablet by mouth daily at bedtime. Disp: 30 tablet Rfl: 1 famotidine (PEPCID) 20 mg tablet Take 1 tablet by mouth twice daily. Disp: 60 tablet Rfl: 11 albuterol (PROVENTIL) 2.5 mg /3 mL (0.083 %) nebulizer solution Use 3 mL via nebulizer every 6 hours as needed for Wheezing/Shortness of Breath. Use over 5-15minutes. Disp: Rfl: traZODone (DESYREL) 150 mg tablet Take 1 tablet by mouth daily at bedtime. Disp: Rfl: 0 levETIRAcetam (KEPPRA) 750 mg tablet Take 2 tablets by mouth twice daily. Disp: Rfl: 0 clonazePAM (KLONOPIN) 0.5 mg tablet Take 0.5 mg by mouth at bedtime as needed. Disp: Rfl: albuterol HFA (VENTOLIN HFA) 90 mcg/actuation inhaler Inhale 2 Puffs as instructed every 4 hours as needed. Disp: 1 Inhaler Rfl: 0 gabapentin (NEURONTIN) 400 mg capsule Take 1 capsule by mouth four times daily for 30 days. Disp: 120 capsule Rfl: 2 albuterol (PROVENTIL) 5 mg/mL nebu Inhale 0.5 mL as instructed one time only for 1 dose. 1 DOSE NOW - BACK OFFICE. PLACE 0.5 ML PER DROPPER AND 2.5 ML OF NORMAL SALINE INTO RESERVOIR. Disp: 1 mL Rfl: 0 COMPOUNDED PRESCRIPTION Nebulizer Disp: 1 Each Rfl: 0 COMPOUNDED PRESCRIPTION BLOOD PRESSURE CUFF FOR HOME USE. DX: LABILE BLOOD PRESSURE Disp: 1 Each Rfl: 0 No current facility-administered medications for this visit. DTAP,TDAP,TD(1 - Tdap) due on 05/23/2016 EXAM: BP 144/92 Pulse 68 Temp 37.1 ?C (98.7 ?F) (Tympanic) Resp 20 Wt 84.4 kg (186 lb) BMI 31.93 kg/m? Pleasant overweight adult woman in no acute distress. Alert and oriented all spheres. Normal affect and cognition. Speech normal. No deficits to learning or comprehension. Skin warm, dry, pink to lips and nailbeds. Normal turgor. Respirations regular and unlabored. Mild lordosis. Tender bilateral lumbar muscles. Restricted ROM due to leg in brace and pain. Right SIJ is restricted on forward bending. Extrem: no clubbing, cyanosis, edema. Extremities are warm and pink with prompt capillary refill. OMT: myofascial release to lumbar trigger points, HVLA to right SIJ with some improvement. ASSESSMENT/PLAN: 1. Acute bilateral low back pain without sciatica - ICD9: 724.2, 338.19, ICD10: M54.5 Mechanical low back pain - Ice for localized tenderness - Warm moist heat for 20 min three times a day - Patient given instructions Don Denita spine handout given and reviewed. Muscle energy techniques as shown 30 sec stretch 3-4 reps twice a day. As pain improves may move to additional postural and back strengthening exercises. F/u with Dr. May if not improving M Anton Gomez PA-C Referring Provider: SELF [200] Allergies As of Date: 11/12/2017 Noted Allergy Reaction ERYTHROMYCIN 09/26/2005 11 - Vomiting AMITRIPTYLINE 05/29/2015 14 - Other: See Comments Comments: sweating AMOXICILLIN 12/02/2000 2 - Rash Comments: REACTION WHEN SHE WAS A CHILD BENADRYL (DIPHENHYDRAMINE HCL) 12/14/2013 14 - Other: See Comments Comments: Muscle spasms CELECOXIB 14 - Other: See Comments CYMBALTA (DULOXETINE) 04/11/2014 14 - Other: See Comments Comments: Worsened depression LEVAQUIN (LEVOFLOXACIN) 04/16/2016 4 - Hives Comments: bilsters over entire body MELOXICAM 10/16/2012 5 - Intolerance Comments: Caused pt to have restless legs and arms SAVELLA (MILNACIPRAN) 05/29/2015 14 - Other: See Comments Comments: Elevated BP, ? rhabdomyolysis TYLENOL (ACETAMINOPHEN) 09/30/2012 8 - GI Upset Date Reviewed: 11/12/2017 Reviewed by: Geena Gates LPN - Fully Assessed Reason for Visit: Back Pain [12] Cmt: lower back ER F/U [41] Cmt: [facility] ER 11/11/17 for chest pain. Is on a 4 week holter monitor currently Reason For Visit History Recorded Primary Visit Diagnosis:Acute bilateral low back pain without sciatica [M54.5] Prescriptions as of 11/12/2017 Sig: TIZANIDINE 4 MG TABLET Take 1 tablet by mouth every * MEDROXYPROGESTERONE 150 MG/ML* INJECT 1ML INTRAMUSCULARLY EV* OXAPROZIN 600 MG TABLET Take 2 tablets by mouth once * GABAPENTIN 400 MG CAPSULE Take 400 mg by mouth four parviz* CARVEDILOL 6.25 MG TABLET Take 6.25 mg by mouth twice d* MONTELUKAST 10 MG TABLET Take 1 tablet by mouth daily * FAMOTIDINE 20 MG TABLET Take 1 tablet by mouth twice * ALBUTEROL SULFATE 2.5 MG/3 ML* Use 3 mL via nebulizer every * TRAZODONE 150 MG TABLET Take 1 tablet by mouth daily * LEVETIRACETAM 750 MG TABLET Take 2 tablets by mouth twice* CLONAZEPAM 0.5 MG TABLET Take 0.5 mg by mouth at bedti* ALBUTEROL SULFATE HFA 90 MCG/* Inhale 2 Puffs as instructed * GABAPENTIN 400 MG CAPSULE Take 1 capsule by mouth four * ALBUTEROL SULFATE CONCENTRATE* Inhale 0.5 mL as instructed o* COMPOUNDED PRESCRIPTION Nebulizer COMPOUNDED PRESCRIPTION BLOOD PRESSURE CUFF FOR HOME * Problem List As Of Date 11/12/2017 Noted Resolved 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 disorder [I35.9] Priority: A SUPERVIS OTHER NORMAL PREG [Z34.80] INVALID FOR*02/10/2008 THREATEN ABORT-ANTEPART [O20.0] INVALID FOR*02/10/2008 Migraine, unspecified, without mention of intra*INVALID FOR* Priority: A 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 DDD (degenerative disc disease), lumbar [M51.36]INVALID FOR* Priority: D More... 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 Pulmonary emboli (HCC) [I26.99] INVALID FOR* More... Lacunar infarct, acute (HCC) [I63.9] INVALID FOR* More... 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] INVALID FOR* Encounter Status:Closed by Lila GOMEZ PA-C on 11/12/17 DOWNTIME REPORT Observed: 11/12/2017 Status: F Source: [place] 1:42 PM [facility] REPOSITORY [facility] Medical Records Department [address] [place] [address] Downtime Report MR#: [id number] Acct: [id number] Name: CHRISSIE CR Rep #: [id number] : 1980 37 From: Tamir Agarwal MD PCP: Bill Lou MD Status: DEP This patient was seen during an EMR downtime October 27, 2017 - November 03, 2017. This patient may have a combination of paper and electronic documentation or all paper documentation. All documentation is viewable within the e-chart portion of [facility] for each patient visit. EMERGENCY DEPARTMENT Observed: 11/11/2017 Status: F Source: [place] SUMMARY 7:29 AM [facility] REPOSITORY [facility] Medical Records Department [address] [place] [address] Emergency Department Summary 11/11/17 0551 MR#: [id number] Acct: [id number] Name: CHRISSIE CR Rep #: [id number] : 1980 37 From: Schuyler Villarreal MD PCP: Bill Lou MD Status: DEP ER - ER Visit Summary Date of Service: 11/11/17 Chief Complaint: Pain History of Present Illness: The patient is a 37 F with chest pain that started around 12:30 AM. The pain is over her left chest and worse with breathing. She had a brief syncopal episode. She does have a history of similar symptoms with PE. She also has a history of seizures but denies any seizure activity. She is being monitored and evaluated for PVCs. She had some associated diaphoresis but no other symptoms. Does not take blood thinners currently. Physical Examination: Vital signs unremarkable. Patient is afebrile. No acute distress. Heart regular rate and rhythm. Lungs clear throughout. Extremities soft and nontender. Skin appears normal without diaphoresis or pallor. Test Results: EKG showed sinus rhythm at a rate of 62. QTc 481. No sign of acute ischemia or infarction. Hemo-globin stable at 11.8. BUN 19 and creatinine 1.22. Coags normal. Troponin and test normal. CT abdomen was unremarkable. No evidence of PE. Emergency Department Course and Treatment: Patient was treated with morphine and fluids while awaiting results. Her story was concerning for PE. Workup was unremarkable. Nothing to suggest ACS. No indication for admission. I believe she is appropriate for an outpatient follow-up. She will be discharged. Treatment Plan: Above Disposition: Discharged Impression: 1. Chest wall pain This note was generated with [employer] dictation software. It may contain incorrect words, spelling, and punctuation that were not noted in review of the chart prior to signing ED Disposition - Plan for ED Patient: Chief Complaint: Chest Pain Referrals: Bill Lou MD [Primary Care Provider] - What to do if you have Problems For any increased pain, shortness of breath, bleeding, nausea or vomiting, chest pain, or any unexpected problems, contact your Primary Care Provider. Call [facility] ([phone]) or report to the closest Emergency Room. Call 911 if necessary. 11/11/17 0729 <Electronically signed by Schuyler Villarreal MD> Date Schuyler Villarreal MD Cosigner Signature (If Indicated): Date CC: Bill Lou MD DISCHARGE INSTRUCTION Observed: 11/11/2017 Status: F Source: ZAK 7:29 AM [facility] REPOSITORY [facility] Medical Records Department [address] [place] [address] Discharge Instruction 11/11/17 0553 MR#: [id number] Acct: [id number] Name: CHRISSIE CR Rep #: [id number] : 1980 37 From: Schuylre Villarreal MD PCP: Bill Lou MD Status: DEP ER ED Disposition - Plan for ED Patient: Chief Complaint: Chest Pain Instructions: ED Chest Pain [facility] Prescriptions: Ibuprofen [Motrin] 800 mg PO TID PRN PRN #20 tab PRN Reason: Pain Referrals: Bill Lou MD [Primary Care Provider] - What to do if you have Problems For any increased pain, shortness of breath, bleeding, nausea or vomiting, chest pain, or any unexpected problems, contact your Primary Care Provider. Call [facility] ([phone]) or report to the closest Emergency Room. Call 911 if necessary. 11/11/17 0729 <Electronically signed by Schuyler Villarreal MD> Date Schuyler Villarreal MD Cosigner Signature (If Indicated): Date CC: Bill Lou MD CBC W/DIFF, AUTOMATED Collected: 11/11/2017 Status: F Source: ZAK 3:17 AM [facility] REPOSITORY TYPE CODE TESTS RESULT OUT OF RANGE REFERENCE UNITS LAB L100.1000 4.4-11.0 K/mm3 Normal WBC 7.6 LAB L100.1200 4.2-5.4 M/mm3 Low RBC 3.79 LAB L100.1300 12.0-15.0 g/dl Low HGB 11.8 LAB L100.1400 37-47 % Low HCT 35.5 LAB L100.1500 81-99 fL Normal MCV 93.7 LAB L100.1600 27.0-32.0 pg Normal MCH 31.1 LAB L100.1700 32-36 g/gl Normal MCHC 33.2 LAB L100.1810 11.6-14.6 % Normal RDW CV 13.4 LAB L100.1820 35.1-43.9 fl High RDW SD 44.2 LAB L100.1900 150-450 K/mm3 Normal PLT 283 LAB L100.2000 6.2-12.0 fl Normal MPV 10.2 LAB L100.2100 47-70 % Normal NEUT% 59.5 LAB L100.2200 19-41 % Normal LY% 25.6 LAB L100.2300 0-10 % High MONO% 12.4 LAB L100.2400 0-5 % Normal EO% 2.0 LAB L100.2500 0-1 % Normal BASO% 0.4 LAB L100.2550 0.0-0.9 % Normal IM GRAN % 0.100 Result Comment: IG% - Immature Granulocytes (promyelocytes, myelocytes and metamyelocytes) > 1% indicates that a LEFT SHIFT is Present. LAB L100.2620 2.0-7.7 X10 3/uL Normal Absolute Neut 4.5 LAB L100.2720 0.83-4.51 X10 3/ul Normal Absolute Lymph 1.95 Performed By: #### L100.0100 #### [facility] [address] [place], [place], [address] PROTHROMBIN TIME W/INR Collected: 11/11/2017 Status: F Source: [place] 3:17 AM [facility] REPOSITORY TYPE CODE TESTS RESULT OUT OF RANGE REFERENCE UNITS LAB L300.4150 11.7-14.9 SECONDS Normal PROTIME 13.7 LAB L300.4200 Normal INR 1.1 Performed By: #### L300.3900, L300.4310 #### [facility] [address] [place], [place], [address] PARTIAL THROMBOPLAST Collected: 11/11/2017 Status: F Source: [place] TIME 3:17 AM [facility] REPOSITORY TYPE CODE TESTS RESULT OUT OF RANGE REFERENCE UNITS LAB L300.4310 24.1-36.2 Seconds Normal PTT 24.7 Performed By: #### L300.3900, L300.4310 #### [facility] [address] [place], [place], [id number] BASIC METABOLIC Collected: 11/11/2017 Status: F Source: [place] PROFILE (BMP) 3:17 AM [facility] REPOSITORY TYPE CODE TESTS RESULT OUT OF RANGE REFERENCE UNITS LAB L501.0100 74-106 mg/dL Normal GLU 100 Result Comment: Fasting Glucose result from 100 to 125 mg/dL suggests IMPAIRED HOMEOSTASIS per A.D.A. criteria. Please note revised GLUCOSE reference range effective 2017. LAB L501.1000 7-18 mg/dL High BUN 19 LAB L501.1100 0.55-1.02 mg/dL High CREAT,SERUM 1.22 Result Comment: The validity of the calculated GFR AND GFRAA in patients over 70 years has not been determined. Clinical correlation is essential. LAB L501.1110 >60 mL/min Low EST GFR 52 Result Comment: Non- GFR Calc LAB L501.1115 >60 mL/min Normal EST GFR - AA 63 Result Comment: GFR Calc LAB L501.1300 10-20 RATIO Normal BUN/CRE 15.6 LAB L501.2200 8.5-10.1 mg/dL CA Normal 8.6 LAB L501.5300 136-145 mmol/L NA Normal 143 LAB L501.5600 3.5-5.1 mmol/L K Normal 3.8 LAB L501.5900 98-107 mmol/L High CL 108 LAB L501.6100 21.0-32.0 mmol/L Normal CO2 25.0 LAB L501.6200 5-15 Normal GAP 10 Performed By: #### L500.2500, L501.4010 #### [facility] [address] [place], [address] TROPONIN-I Collected: 11/11/2017 Status: F Source: [place] 3:17 AM [facility] REPOSITORY TYPE CODE TESTS RESULT OUT OF RANGE REFERENCE UNITS LAB L501.4010 <0.045 ng/mL Normal < 0.015 TROPONIN-I Result Comment: TROPONIN-I EXPECTED VALUES <0.045 Negative 0.045 - 0.590 Consistent with Cardiac Damage > OR = 0.600 Critical Value Not every elevated troponin is indicative of WI. These values should be used with clinical judgement in examining the patient's clinical picture for diagnosis. To establish a diagnosis of WI versus myocardial injury, there must be a demonstrated rise and/or fall in the troponin values, in addition to ischemic symptoms, EKG changes, new regional wall motion abnormality, and/or angiographical evidence. PLEASE NOTE: REFERENCE RANGES EDITED 17 Performed By: #### L500.2500, L501.4010 #### [facility] [address] [place], [address] ,SERUM,HCG QUALI. Collected: Status: F Source: [place] 11/11/2017 3:17 AM [facility] REPOSITORY TYPE CODE TESTS RESULT OUT OF REFERENCE UNITS RANGE LAB L700.7000 0-9 Nonpreg Negative Normal HCGSQUAL NEGATIVE LAB L700.6700 =>Qualitative mIU/mL Normal HCG Qual < 1 triggr Performed By: #### L700.6800 #### [facility] [address] [place], [address] CTA CHEST W/WO Observed: 11/11/2017 Status: F Source: [place] CONTRAST 2:26 AM [facility] REPOSITORY [facility] Imaging Services [address] [place] [id number] CTA Chest W/WO Contrast MR#: [id number] Acct: [id number] Name: CHRISSIE CR Rep #: [id number] : 1980 F 37 From: Francisco You PCP: Bill Lou MD Status: REG ER Study: CTA Chest W/WO Contrast Date of Exam: 11/11/17 Exam# [id number] Ordering Dr: Schuyler Villarreal MD STUDY: CTA CHEST REASON FOR EXAM: Female, 37 years old. Chest pain. History of leiomyosarcoma. RADIATION DOSAGE (If Supplied By Facility): CTDIvol = ( 16.89 ) mGy, DLP = ( 556.42 ) mGycm TECHNIQUE: The examination was performed with the intravenous administration of 100ML ml of Isovue 370 contrast material. Post-processing of the angiographic images was performed, with multiplanar reformation and 3D reconstruction. Individualized dose optimization techniques were used for this CT. COMPARISON: September 23, 2017. FINDINGS: Normal enhancement of the main pulmonary artery and right and left pulmonary arteries. Normal enhancement of the bilateral peripheral pulmonary arteries. There is no demonstrated pulmonary embolism. Normal thoracic aorta and visualized great vessels. There is no demonstrated aortic dissection. Normal heart and pericardium. Normal mediastinum. Normal hilar regions. Normal visualized trachea and bronchi. The lungs are well expanded. Normal pulmonary parenchyma. Normal pleura. Normal chest wall structures. Normal osseous structures. Normal visualized upper abdomen. CT/CTA Chest W/WO Contrast IMPRESSION: Normal CTA chest examination, without a demonstrated pulmonary embolism or arterial dissection. Electronically Signed: Francisco You MD at 5:37 EDT , Service support , CC: Schuyler Villarreal MD; Bill Lou MD 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: Signed EMERGENCY DEPARTMENT Observed: 11/04/2017 Status: F Source: [place] SUMMARY 1:06 AM [facility] Medical Records Department [address] [place] [id number] Emergency Department Summary 11/04/17 0055 MR#: [id number] Acct: [id number] Name: CHRISSIE CR Rep #: [id number] : 1980 37 From: Topher Colon MD PCP: Bill Lou MD Status: REG ER - ER Visit Summary Date of Service: 11/04/17 Chief Complaint: Patient complains of acute left sided lower abdominal pain that started 4 hours prior to presentation. History of Present Illness: The patient is a 37 F She states it is crampy achy and sharp. It is presently an 8 out of 10. She states walking makes it worse. She denies any pain with change in position or coughing. She denies any history of trauma. She denies any alleviating factors or precipitating factors. She reports history of fibromyalgia, ovarian cysts, fibroids and kidney stones. She denies any fever, chills or night sweats. She does report nausea without vomiting or diarrhea. She denies dysuria, frequency, urgency or hematuria. She is on double shots and states she has not had a menstrual period in a long time. She does report chronic back pain. She denies flank pain. Review of systems is otherwise negative. There is a past history of COPD, endometriosis, fibroids, renal calculi, seizure disorder and DVT. She had a similar presentation was found to have a UTI several months ago. She also reports history of fibromyalgia. Physical Examination: Vital signs are normal. There was no eye contact during history or physical examination. HEENT exam is unremarkable. Insert cardiopulmonary exam abdominal exam is remarkable for pain to light tactile stimulus of the left lower quadrant. Of note when she was asked to scoot up on the cot she grimaces as if she was in pain. However, when asked to local his her back pain she moved freely without grimacing or hesitation. Test Results: CBC is normal. Serum test is negative. UA is contaminated. Of note there are no bacteria noted. Emergency Department Course and Treatment: To evaluate patient's left lower quadrant pain in light of her history of renal calculi UTI and history of diverticulitis CBC, UA and points tests were obtained. Since her exam indicates that she has pain out of proportion to tactile stimuli and she has no guarding rebound tenderness and a negative UA plan is to discharge to home. Treatment Plan: Discharge to home with appropriate home-going instructions. Disposition: Discharged to home, stable Impression: Left lower quadrant abdominal pain unknown etiology History of uterine fibroids History of endometriosis History of renal calculi History of fibromyalgia This note was generated with NeuroPace dictation software. It may contain incorrect words, spelling, and punctuation that were not noted in review of the chart prior to signing ED Disposition - Plan for ED Patient: Disposition: Home or Assisted Living Chief Complaint: Abd Pain Instructions: ED Abdominal Pain Unkn Cause Referrals: Bill Lou MD [Primary Care Provider] - As Needed What to do if you have Problems For any increased pain, shortness of breath, bleeding, nausea or vomiting, chest pain, or any unexpected problems, contact your Primary Care Provider. Call [facility] ([phone]) or report to the closest Emergency Room. Call 911 if necessary. 11/04/17 0106 <Electronically signed by Topher Colon MD> Date Topher Colon MD Cosigner Signature (If Indicated): Date CC: Bill Lou MD URINALYSIS, COMPLETE Collected: 11/04/2017 Status: F Source: [place] 12:30 AM [facility] REPOSITORY Order Comment: Order Date: 11/04/17 How was Urine Obtained? CLEAN CATCH TYPE CODE TESTS RESULT OUT OF RANGE REFERENCE UNITS LAB L400.3000 Yellow COLOR Normal Yellow LAB L400.3050 Clear Normal CLARITY Sl. Cloudy LAB L400.3200 Normal mg/dl Normal GLUCOSE, UR Normal LAB L400.3300 Negative mg/dL Normal BILIRUBIN URINE Negative LAB L400.3400 Negative mg/dl Normal KETONE UR Negative LAB L400.3465 1.002-1.030 Normal SP.GR. DIPSTX 1.020 LAB L400.3550 5.0 - 8.0 pH UR Normal 6.5 LAB L400.3600 Negative mg/dl High PROT 15 DIPSTX LAB L400.3700 Normal mg/dl Normal UROBILI Normal LAB L400.3750 Negative Normal NITRITE UR Negative LAB L400.3780 Negative /ul High 25 OCCULT BLOOD-UR LAB L400.3800 Negative /ul High LEUK ESTERASE 500 LAB L400.4050 0-5 /hpf WBC Normal 50-100 SEEN LAB L400.4100 0-5 /hpf Normal RBC-UA 0-5 SEEN LAB L400.4150 5-10 /hpf SQUAM Normal EPI 10-25 SEEN LAB L400.4300 None Seen /hpf Normal BACTERIA RARE LAB L400.4350 <or=2+ /hpf 0 Normal MUCUS, URINE SEEN Performed By: #### L400.0001 #### [facility] [address] [place], [place], [address] CBC W/DIFF, AUTOMATED Collected: 11/04/2017 Status: F Source: [place] 12:05 AM [facility] REPOSITORY TYPE CODE TESTS RESULT OUT OF RANGE REFERENCE UNITS LAB L100.1000 4.4-11.0 K/mm3 Normal WBC 8.5 LAB L100.1200 4.2-5.4 M/mm3 Normal RBC 4.21 LAB L100.1300 12.0-15.0 g/dl Normal HGB 12.7 LAB L100.1400 37-47 % Normal HCT 38.9 LAB L100.1500 81-99 fL Normal MCV 92.4 LAB L100.1600 27.0-32.0 pg Normal MCH 30.2 LAB L100.1700 32-36 g/gl Normal MCHC 32.6 LAB L100.1810 11.6-14.6 % Normal RDW CV 13.5 LAB L100.1820 35.1-43.9 fl High RDW SD 45.1 LAB L100.1900 150-450 K/mm3 Normal PLT 288 LAB L100.2000 6.2-12.0 fl Normal MPV 10.2 LAB L100.2100 47-70 % Normal NEUT% 62.9 LAB L100.2200 19-41 % Normal LY% 21.1 LAB L100.2300 0-10 % High MONO% 13.3 LAB L100.2400 0-5 % Normal EO% 2.1 LAB L100.2500 0-1 % Normal BASO% 0.4 LAB L100.2550 0.0-0.9 % Normal IM GRAN % 0.200 Result Comment: IG% - Immature Granulocytes (promyelocytes, myelocytes and metamyelocytes) > 1% indicates that a LEFT SHIFT is Present. LAB L100.2620 2.0-7.7 X10 3/uL Normal Absolute Neut 5.4 LAB L100.2720 0.83-4.51 X10 3/ul Normal Absolute Lymph 1.80 Performed By: #### L100.0100 #### [facility] [address] [place], [address] ,SERUM,HCG QUALI. Collected: Status: F Source: [place] 11/04/2017 12:05 AM [facility] REPOSITORY TYPE CODE TESTS RESULT OUT OF REFERENCE UNITS RANGE LAB L700.6700 =>Qualitative mIU/mL Normal HCG Qual < 1 triggr LAB L700.7000 0-9 Nonpreg Negative Normal HCGSQUAL NEGATIVE Performed By: #### L700.6800 #### [facility] [address] [place], [address] PROGRESS Observed: 10/30/2017 Status: COMPLETED Source: [place] 8:50 AM [facility] REPOSITORY HNO ID: [id number] Author: Francisco Mae Service: (none) Author Type: Physician Type: Progress Notes Filed: 10/30/2017 12:48 PM Note Text: Francisco Mae MD Department of Orthopaedics Orthopaedics [address] [facility] [address] Dept: [phone] Dept October 30, 2017 CHIEF COMPLAINT: Established Patient (2 weeks 1 day post visit left knee pain) Ms. Chrissie Cr is a 37 year old female Who returns with a bit of a new problem with the left knee. 6 out of 10 pain that aching at times sharp. A few weeks ago she was going up and down the stairs at her parents and she had worsening pain in the calf, knee and even into the thigh. She went to an outside hospital and x-rays looked fine. She has been wearing a knee immobilizer and a brace depending on how it feels. She is using crutches but not completely independently. ASSESSMENT: M25.562 Acute pain of left knee (primary encounter diagnosis) PLAN: Her knee looks well on exam. I recommendation is just symptomatic treatment at this time and continuing her strengthening exercises which she sounds like she has been vigilant with. Follow-up as needed. Ms. Chrissie Cr was advised as to contrast therapies and/or to take analgesics/anti-inflammatories as needed and all contraindications were reviewed. OARRS website checked and validated. All prescriptions have been APPROPRIATELY filled. No suspicious activity was identified.- 10/30/2017 by Francisco Mae MD OBJECTIVE: Ms. Chrissie Cr is a pleasant 37 year old in no apparent distress. Gen:There were no vitals taken for this visit. nl development, non obese, no deformities ENT: Normocephalic, normal hearing, moist mucosa CV: Pulses:DP/PT= 2+ and symmetric, capillary refill < 2 secs, no peripheral edema/varicosities Skin: no rash, bruising or lesions. Good turgor. Psych: cooperative and appropriate, alert and oriented x 3, good mood and affect. Musculoskeletal: Left knee without effusion. Some mild tenderness over the proximal fibula and some mild tenderness over the VMO oh but no pain really along the joint line. Some tightness with full flexion but she has excellent motion. Extensor mechanism is intact. Imaging: Films from an outside facility show stable knee replacement. Supporting Subjective Information Below: Past Surgical History: PAST SURGICAL HISTORY Procedure Laterality Date - BREAST LUMPECTOMY HX Right 2013 - DELIVERY ONLY 05/02/2006 , low cervical - COLONOSCOPY 11/22/2003 normal - COLONOSCOPY 09/23/14 negative biopsies, Dr. Aguilera Gastro - COLPOSCOPY (VAGINOSCOPY) 07/02/2006 Colposcopy - EGD W/O OR W/BRUSH/WASH 09/01/13 non-severe reflux esophagitis, bilious gastic fluid - EGD W/O OR W/BRUSH/WASH 11/03/2015 EGD: retained food, no active bleeding. otherwise unremarkable. 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 - TOTAL KNEE REPLACEMENT Bilateral 09/20/2015 bilateral TKA Medications: Current Outpatient Prescriptions: oxaprozin (DAYPRO) 600 mg tablet Take 2 tablets by mouth once daily. gabapentin (NEURONTIN) 400 mg capsule Take 400 mg by mouth four times daily. tiZANidine (ZANAFLEX) 4 mg tablet Take 1 tablet by mouth every 8 hours as needed. carvedilol (COREG) 6.25 mg tablet Take 6.25 mg by mouth twice daily with meals. medroxyPROGESTERone (DEPO-PROVERA) 150 mg/mL syrg Inject 1 mL intramuscularly every 12 weeks. INJECT IM EVERY 12 WEEKS. montelukast (SINGULAIR) 10 mg tablet Take 1 tablet by mouth daily at bedtime. famotidine (PEPCID) 20 mg tablet Take 1 tablet by mouth twice daily. albuterol (PROVENTIL) 2.5 mg /3 mL (0.083 %) nebulizer solution Use 3 mL via nebulizer every 6 hours as needed for Wheezing/Shortness of Breath. Use over 5-15minutes. COMPOUNDED PRESCRIPTION Nebulizer traZODone (DESYREL) 150 mg tablet Take 1 tablet by mouth daily at bedtime. levETIRAcetam (KEPPRA) 750 mg tablet Take 2 tablets by mouth twice daily. clonazePAM (KLONOPIN) 0.5 mg tablet Take 0.5 mg by mouth at bedtime as needed. albuterol HFA (VENTOLIN HFA) 90 mcg/actuation inhaler Inhale 2 Puffs as instructed every 4 hours as needed. COMPOUNDED PRESCRIPTION BLOOD PRESSURE CUFF FOR HOME USE. DX: LABILE BLOOD PRESSURE oxyCODONE-acetaminophen (PERCOCET) 5-325 mg tablet Take 1 tablet by mouth every 4 hours as needed for up to 3 days. gabapentin (NEURONTIN) 400 mg capsule Take 1 capsule by mouth four times daily for 30 days. albuterol (PROVENTIL) 5 mg/mL nebu Inhale 0.5 mL as instructed one time only for 1 dose. 1 DOSE NOW - BACK OFFICE. PLACE 0.5 ML PER DROPPER AND 2.5 ML OF NORMAL SALINE INTO RESERVOIR. No current facility-administered medications for this visit. Allergies: Erythromycin; Amitriptyline; Amoxicillin; Benadryl [Diphenhydramine Hcl]; Celecoxib; Cymbalta [Duloxetine]; Levaquin [Levofloxacin]; Meloxicam; Savella [Milnacipran]; Tylenol [Acetaminophen] ROS: General (negative for fatigue, malaise, weight loss/gain) HEENT (negative for headache, earache, recent vision changes, sinus pain, sore throat) Respiratory (no recent shortness of breath, hemoptysis) CV (negative for chest tightness, palpitations) Musculoskeletal (see HPI) Psych (no depression, anxiety) This note was partially generated using NeuroPace voice recognition system, and there may be some incorrect words, spellings, and punctuation that were not noted in checking the note before saving. Francisco Mae MD PROGRESS Observed: 10/30/2017 Status: COMPLETED Source: [place] 8:34 AM [facility] REPOSITORY HNO ID: [id number] Author: Akilah Krause Ma Service: (none) Author Type: (none) Type: Progress Notes Filed: 10/30/2017 12:48 PM Note Text: Patient presents with: Established Patient: 2 weeks 1 day post visit left knee pain AMB ROOMING INTAKE FLOWSHEET DATA Risk Screening Do you have concerns about personal safety or safety in the home?: No Pain Pain Score: 6/10 Pain Location: Knee-Left Description: Aching, Sharp Duration Amount of Time: (Ongoing) Frequency: Continuous Intervention: Medication Patient states on 10/19 she was going up and down the steps at her parents and had increased pain in her left knee. Seen at [facility] and had x-rays done. She was to hand carry films but was told her there were no changes in her x-rays that were done at [facility]. States she was given a knee immobilizer and has been wearing except today she is wearing her [employer] hinged knee brace to the appointment. Patient arrives in the office with crutches but not really using them as she is ambulating. Patient is also wearing flip flops with her crutches. Taking Daypro for her pain and helps some. CNOV Observed: 10/30/2017 Status: COMPLETED Source: [place] 8:00 AM [facility] REPOSITORY Office Visit (AZALIAWS) CHRISSIE CR ([id number]) 1980 F HPR Date Time Provider Department 10/30/17 8:00 AM FRANCISCO MAE During your visit today, we recorded the following information about you: Akilah Krause Ma 10/30/2017 12:48 PM Signed Patient presents with: Established Patient: 2 weeks 1 day post visit left knee pain AMB ROOMING INTAKE FLOWSHEET DATA Risk Screening Do you have concerns about personal safety or safety in the home?: No Pain Pain Score: 6/10 Pain Location: Knee-Left Description: Aching, Sharp Duration Amount of Time: (Ongoing) Frequency: Continuous Intervention: Medication Patient states on 10/19 she was going up and down the steps at her parents and had increased pain in her left knee. Seen at [facility] and had x-rays done. She was to hand carry films but was told her there were no changes in her x-rays that were done at [facility]. States she was given a knee immobilizer and has been wearing except today she is wearing her [employer] hinged knee brace to the appointment. Patient arrives in the office with crutches but not really using them as she is ambulating. Patient is also wearing flip flops with her crutches. Taking Daypro for her pain and helps some. Francisco Mae MD 10/30/2017 12:48 PM Signed Francisco Mae MD Department of Orthopaedics Orthopaedics [address] [facility] [address] Dept: [phone] Dept October 30, 2017 CHIEF COMPLAINT: Established Patient (2 weeks 1 day post visit left knee pain) Ms. Chrissie Cr is a 37 year old female Who returns with a bit of a new problem with the left knee. 6 out of 10 pain that aching at times sharp. A few weeks ago she was going up and down the stairs at her parents and she had worsening pain in the calf, knee and even into the thigh. She went to an outside hospital and x-rays looked fine. She has been wearing a knee immobilizer and a brace depending on how it feels. She is using crutches but not completely independently. ASSESSMENT: M25.562 Acute pain of left knee (primary encounter diagnosis) PLAN: Her knee looks well on exam. I recommendation is just symptomatic treatment at this time and continuing her strengthening exercises which she sounds like she has been vigilant with. Follow-up as needed. Ms. Chrissie Cr was advised as to contrast therapies and/or to take analgesics/anti-inflammatories as needed and all contraindications were reviewed. OARRS website checked and validated. All prescriptions have been APPROPRIATELY filled. No suspicious activity was identified.- 10/30/2017 by Francisco Mae MD OBJECTIVE: Ms. Chrissie Cr is a pleasant 37 year old in no apparent distress. Gen:There were no vitals taken for this visit. nl development, non obese, no deformities ENT: Normocephalic, normal hearing, moist mucosa CV: Pulses:DP/PT= 2+ and symmetric, capillary refill < 2 secs, no peripheral edema/varicosities Skin: no rash, bruising or lesions. Good turgor. Psych: cooperative and appropriate, alert and oriented x 3, good mood and affect. Musculoskeletal: Left knee without effusion. Some mild tenderness over the proximal fibula and some mild tenderness over the VMO oh but no pain really along the joint line. Some tightness with full flexion but she has excellent motion. Extensor mechanism is intact. Imaging: Films from an outside facility show stable knee replacement. Supporting Subjective Information Below: Past Surgical History: PAST SURGICAL HISTORY Procedure Laterality Date - BREAST LUMPECTOMY HX Right 2013 - DELIVERY ONLY 05/02/2006 , low cervical - COLONOSCOPY 11/22/2003 normal - COLONOSCOPY 09/23/14 negative biopsies, Dr. Aguilera Gastro - COLPOSCOPY (VAGINOSCOPY) 07/02/2006 Colposcopy - EGD W/O OR W/BRUSH/WASH 09/01/13 non-severe reflux esophagitis, bilious gastic fluid - EGD W/O OR W/BRUSH/WASH 11/03/2015 EGD: retained food, no active bleeding. otherwise unremarkable. 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 - TOTAL KNEE REPLACEMENT Bilateral 09/20/2015 bilateral TKA Medications: Current Outpatient Prescriptions: oxaprozin (DAYPRO) 600 mg tablet Take 2 tablets by mouth once daily. gabapentin (NEURONTIN) 400 mg capsule Take 400 mg by mouth four times daily. tiZANidine (ZANAFLEX) 4 mg tablet Take 1 tablet by mouth every 8 hours as needed. carvedilol (COREG) 6.25 mg tablet Take 6.25 mg by mouth twice daily with meals. medroxyPROGESTERone (DEPO-PROVERA) 150 mg/mL syrg Inject 1 mL intramuscularly every 12 weeks. INJECT IM EVERY 12 WEEKS. montelukast (SINGULAIR) 10 mg tablet Take 1 tablet by mouth daily at bedtime. famotidine (PEPCID) 20 mg tablet Take 1 tablet by mouth twice daily. albuterol (PROVENTIL) 2.5 mg /3 mL (0.083 %) nebulizer solution Use 3 mL via nebulizer every 6 hours as needed for Wheezing/Shortness of Breath. Use over 5-15minutes. COMPOUNDED PRESCRIPTION Nebulizer traZODone (DESYREL) 150 mg tablet Take 1 tablet by mouth daily at bedtime. levETIRAcetam (KEPPRA) 750 mg tablet Take 2 tablets by mouth twice daily. clonazePAM (KLONOPIN) 0.5 mg tablet Take 0.5 mg by mouth at bedtime as needed. albuterol HFA (VENTOLIN HFA) 90 mcg/actuation inhaler Inhale 2 Puffs as instructed every 4 hours as needed. COMPOUNDED PRESCRIPTION BLOOD PRESSURE CUFF FOR HOME USE. DX: LABILE BLOOD PRESSURE oxyCODONE-acetaminophen (PERCOCET) 5-325 mg tablet Take 1 tablet by mouth every 4 hours as needed for up to 3 days. gabapentin (NEURONTIN) 400 mg capsule Take 1 capsule by mouth four times daily for 30 days. albuterol (PROVENTIL) 5 mg/mL nebu Inhale 0.5 mL as instructed one time only for 1 dose. 1 DOSE NOW - BACK OFFICE. PLACE 0.5 ML PER DROPPER AND 2.5 ML OF NORMAL SALINE INTO RESERVOIR. No current facility-administered medications for this visit. Allergies: Erythromycin; Amitriptyline; Amoxicillin; Benadryl [Diphenhydramine Hcl]; Celecoxib; Cymbalta [Duloxetine]; Levaquin [Levofloxacin]; Meloxicam; Savella [Milnacipran]; Tylenol [Acetaminophen] ROS: General (negative for fatigue, malaise, weight loss/gain) HEENT (negative for headache, earache, recent vision changes, sinus pain, sore throat) Respiratory (no recent shortness of breath, hemoptysis) CV (negative for chest tightness, palpitations) Musculoskeletal (see HPI) Psych (no depression, anxiety) This note was partially generated using NeuroPace voice recognition system, and there may be some incorrect words, spellings, and punctuation that were not noted in checking the note before saving. Francisco Mae MD Referring Provider: SELF [[id number]] Allergies As of Date: 10/30/2017 Noted Allergy Reaction ERYTHROMYCIN 09/26/2005 11 - Vomiting AMITRIPTYLINE 05/29/2015 14 - Other: See Comments Comments: sweating AMOXICILLIN 12/02/2000 2 - Rash Comments: REACTION WHEN SHE WAS A CHILD BENADRYL (DIPHENHYDRAMINE HCL) 12/14/2013 14 - Other: See Comments Comments: Muscle spasms CELECOXIB 14 - Other: See Comments CYMBALTA (DULOXETINE) 04/11/2014 14 - Other: See Comments Comments: Worsened depression LEVAQUIN (LEVOFLOXACIN) 04/16/2016 4 - Hives Comments: bilsters over entire body MELOXICAM 10/16/2012 5 - Intolerance Comments: Caused pt to have restless legs and arms SAVELLA (MILNACIPRAN) 05/29/2015 14 - Other: See Comments Comments: Elevated BP, ? rhabdomyolysis TYLENOL (ACETAMINOPHEN) 09/30/2012 8 - GI Upset Date Reviewed: 10/30/2017 Reviewed by: Francisco Mae - Fully Assessed Reason for Visit: Established Patient [175] Cmt: 2 weeks 1 day post visit left knee pain Primary Visit Diagnosis:Acute pain of left knee [M25.562] Order(s):oxyCODONE-acetaminophen (PERCOCET) 5-325 mg tabletTake 1 tablet by mouth every 4 hours as needed for up to 3 days.Disp: 12 tabletRfl: 0 Prescriptions as of 10/30/2017 Sig: OXAPROZIN 600 MG TABLET Take 2 tablets by mouth once * GABAPENTIN 400 MG CAPSULE Take 400 mg by mouth four parviz* TIZANIDINE 4 MG TABLET Take 1 tablet by mouth every * CARVEDILOL 6.25 MG TABLET Take 6.25 mg by mouth twice d* MEDROXYPROGESTERONE 150 MG/ML* Inject 1 mL intramuscularly e* MONTELUKAST 10 MG TABLET Take 1 tablet by mouth daily * FAMOTIDINE 20 MG TABLET Take 1 tablet by mouth twice * ALBUTEROL SULFATE 2.5 MG/3 ML* Use 3 mL via nebulizer every * COMPOUNDED PRESCRIPTION Nebulizer TRAZODONE 150 MG TABLET Take 1 tablet by mouth daily * LEVETIRACETAM 750 MG TABLET Take 2 tablets by mouth twice* CLONAZEPAM 0.5 MG TABLET Take 0.5 mg by mouth at bedti* ALBUTEROL SULFATE HFA 90 MCG/* Inhale 2 Puffs as instructed * COMPOUNDED PRESCRIPTION BLOOD PRESSURE CUFF FOR HOME * OXYCODONE-ACETAMINOPHEN 5 MG-* Take 1 tablet by mouth every * GABAPENTIN 400 MG CAPSULE Take 1 capsule by mouth four * ALBUTEROL SULFATE CONCENTRATE* Inhale 0.5 mL as instructed o* Problem List As Of Date 10/30/2017 Noted Resolved 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 disorder [I35.9] Priority: A SUPERVIS OTHER NORMAL PREG [Z34.80] INVALID FOR*02/10/2008 THREATEN ABORT-ANTEPART [O20.0] INVALID FOR*02/10/2008 Migraine, unspecified, without mention of intra*INVALID FOR* Priority: A 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 DDD (degenerative disc disease), lumbar [M51.36]INVALID FOR* Priority: D More... 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 Pulmonary emboli (HCC) [I26.99] INVALID FOR* More... Lacunar infarct, acute (HCC) [I63.9] INVALID FOR* More... 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 Encounter Status:Closed by FRANCISCO MAE MD on 10/30/17 EMERGENCY REPORT Observed: 10/27/2017 Status: F Source: [facility]UMTAZ CARRANZA 7:51 AM [facility] EMERGENCY ROOM REPORT NAME ACCOUNT SEX AGE ADMIT DISCHARGE PT MED. RECORD# NUMBER DATE DATE TYPE CHRISSIE CR [id number] F 37 10/19/17 10/19/17 3 L [id number] ROOM: ER DATE OF : 1980 DICTATING PHYSICIAN: Matthew Lancaster CHIEF COMPLAINT: Left knee pain. HISTORY OF PRESENT ILLNESS: Patient states 2 days ago she fell down 5 steps. Is having ongoing left knee pain since then. She is able to weight bear though with pain. She has had previous surgery to this knee, having bilateral knee replacement surgery. Pain seems to be worse to the anterior aspect of the knee. PAST MEDICAL HISTORY: Significant for a number of chronic medical problems including previous pulmonary embolism, pulmonary hypertension, aortic valve repair, mitral valve repair, previous TIAs, DVTs, myosarcoma. PAST SURGICAL HISTORY: She has had a number of surgeries as noted on the chart. MEDICATIONS: Per medication reconciliation list. ALLERGIES: She has multiple allergies as noted on her allergy list. SOCIAL HISTORY: She lives at home. She does smoke. She does not drink alcohol. PHYSICAL EXAMINATION: This is a 37-year-old female who is alert and appropriate. Patient does not appear toxic. Skin is pink, warm and dry. Exam focused on the left lower extremity. Gross exam to the left leg is unremarkable. She has well-healed bilateral knee incisions anteriorly but there is no redness, bruising, ecchymosis or deformity. Patient has some tenderness over the anterior aspect of the left knee diffusely. Tenderness seems to be focused along the lateral aspect anterolateral of the patella but she does also seem to focus the tenderness at the medial joint line along the MCL area. There is no joint effusion. She is able to flex and extend the knee. There is no negative Remington's but she does seem to have significant laxity to the MCL with valgus stress. Some mild tenderness to the musculature but no soft tissue swelling. Vital signs are normal as noted on the chart. DIAGNOSTIC DATA: Left knee x-ray did not show any bony injury. EMERGENCY DEPARTMENT COURSE AND TREATMENT: She was given a knee immobilizer. She does have crutches at home to use. Page 1 of 2 CHRISSIE CR Emergency Room Report DIAGNOSIS: Left knee injury, possible medial collateral ligament sprain. PLAN/DISPOSITION: She is to followup with her orthopedist within the next 2-5 days for a recheck. Prescriptions for naproxen and tramadol were given. Dictated By: Matthew Lancaster MD 10/19/17 14:58 JOB #: [id number] Transcribed By: jordan 10/20/17 07:57 Electronically signed by: SHAILA Lancaster M.D. 10/27/17 07:48 Page 2 of 2 CHRISSIE CR Emergency Room Report EMERGENCY DEPARTMENT Observed: 10/23/2017 Status: F Source: ZAK SUMMARY 12:48 AM [facility] REPOSITORY [facility] Medical Records Department [address] [place] [address] Emergency Department Summary 10/22/17 2342 MR#: [id number] Acct: [id number] Name: CHRISSIE CR Rep #: [id number] : 1980 37 From: Neil Casiano MD PCP: Bill Lou MD Status: DEP ER - ER Visit Summary Date of Service: 10/22/17 Chief Complaint: Neck pain History of Present Illness: The patient is a [address] Lou. She reports that 5 days ago her left leg gave out and she fell and injured her neck. She reports that she has a sharp pain in the right trapezius muscle Zeta 10 with movement 6 out of 10 at rest. She did hit her head. No loss of consciousness. No other injuries. Physical Examination: Vitals: Stable. Afebrile. Neck: No vertebral tenderness. Full ROM without difficulty. Cleared by NEXUS criteria. Return palpation over the right trapezius muscle. No spasm. Back: Mild tenderness palpation over her entire thoracic and lumbar spine. No point tenderness.. General: A AND O x 3. NAD. Cardiovascular exam: Regular rate and rhythm, no murmur, rub or gallop. Respiratory exam: Chest nontender. No crepitus. Clear to auscultation bilaterally. No wheezes or stridor. Abdominal exam: Soft, nontender, nondistended, normal bowel sounds. No pain in RUQ or LUQ specifically. No peritoneal signs. Extremity: Atraumatic. No pain with range of motion. Emergency Department Course and Treatment: She was treated with ibuprofen is resting comfortably. Treatment Plan: An [facility] report was obtained which show she had 10 prescription for opiates in the past year. She is also had prescriptions for muscle relaxants and benzodiazepines. This is her 14th visit to the emergency department in 2018. I do not think treating her with an opiate medication is in her best interest. She will be discharged instructed use Tylenol and/or ibuprofen for pain. Follow-up Dr. Lou in 1 week if not improving. Disposition: To home in improved and stable condition. Impression: 1. Fall. 2. Cervical strain. This note was generated with NeuroPace dictation software. It may contain incorrect words, spelling, and punctuation that were not noted in review of the chart prior to signing ED Disposition - Plan for ED Patient: Disposition: Home or Assisted Living Chief Complaint: Fall Instructions: ED Sprain Strain Neck Referrals: Bill Lou MD [Primary Care Provider] - 1 Week if not improving What to do if you have Problems For any increased pain, shortness of breath, bleeding, nausea or vomiting, chest pain, or any unexpected problems, contact your Primary Care Provider. Call [facility] ([phone]) or report to the closest Emergency Room. Call 911 if necessary. 10/23/17 0048 <Electronically signed by Neil Casiano MD> Date Neil Casiano MD Cosigner Signature (If Indicated): Date CC: Bill Lou MD KNEE COMPLETE LT MIN Observed: 10/19/2017 Status: F [facility] 2:35 PM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 SULFATE HFA 90 MCG/* Inhale 2 Puffs as instructed * COMPOUNDED PRESCRIPTION BLOOD PRESSURE CUFF FOR HOME * OXYCODONE-ACETAMINOPHEN 5 MG-* Take 1 tablet by mouth every * Patient not taking: Reported on 10/15/2017 GABAPENTIN 400 MG CAPSULE Take 1 capsule by mouth four * ALBUTEROL SULFATE CONCENTRATE* Inhale 0.5 mL as instructed o* Problem List As Of Date 10/15/2017 Noted Resolved 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 disorder [I35.9] Priority: A SUPERVIS OTHER NORMAL PREG [Z34.80] INVALID FOR*02/10/2008 THREATEN ABORT-ANTEPART [O20.0] INVALID FOR*02/10/2008 Migraine, unspecified, without mention of intra*INVALID FOR* Priority: A 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 DDD (degenerative disc disease), lumbar [M51.36]INVALID FOR* Priority: D More... 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 Pulmonary emboli (HCC) [I26.99] INVALID FOR* More... Lacunar infarct, acute (HCC) [I63.9] INVALID FOR* More... 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] INVALID FOR* Encounter Status:Closed by MARLENI CARLOS PA-C on 10/15/17 EMERGENCY DEPARTMENT Observed: 10/09/2017 Status: F Source: [place] SUMMARY 10:28 PM [facility] REPOSITORY [facility] Medical Records Department [address] [place] [address] Emergency Department Summary 10/09/17 2225 MR#: [id number] Acct: [id number] Name: CHRISSIE CR Rep #: [id number] : 1980 37 From: Whitley Chiu DO PCP: Bill Lou MD Status: REG ER - ER Visit Summary Date of Service: 10/09/17 Chief Complaint: [Fall] History of Present Illness: The patient is a 37 F [presents the emergency department after sustaining a fall around 11 PM yesterday. Patient states that she was going up some steps to her friend's apartment when she fell backwards injuring her left knee and left hip. Patient denies loss of consciousness although she did hit her head. Patient has been ambulatory. She denies any chest or abdomen pain.] Physical Examination: [HEENT-PERRLA, EOMI. Cranial nerves II through XII grossly intact. TMs clear. Mucous membranes moist. No adenopathy. No C-spine tenderness on palpation with normal active range of motion. Cardiovascular-regular rate and rhythm without murmur or ectopy Lungs-clear to auscultation, chest wall stable without crepitus or subcu emphysema Abdomen-normoactive bowel sounds, soft, nontender, no rebound or rigidity, no peritoneal signs. Extremities-intact 4, normal range of motion, normal pulses, atraumatic]. Left knee-patient has some tenderness palpation over the lateral aspect of the left knee. Patient has pain with flexion extension of the knee but no obvious effusion noted. The knee has had prior replacement surgery. Ligamentously appears stable but somewhat limited due to pain. Left hip-patient has some mild tenderness with logrolling over the left hip. There is no shortening or external rotation of the extremity. Test Results: [X-rays of the left knee and left hip and pelvis were obtained which were negative for fractures] Emergency Department Course and Treatment: [Patient will be given a knee immobilizer] Treatment Plan: [Patient to use her knee immobilizer. Patient to use her Percocet for pain as needed.] Patient to follow-up with her orthopedic surgeon within the next 5-7 days. Disposition: [Discharged home in stable condition] Impression: [Mechanical fall Left knee sprain-possible internal derangement Left hip contusion] This note was generated with VinPerfectation software. It may contain incorrect words, spelling, and punctuation that were not noted in review of the chart prior to signing ED Disposition - Plan for ED Patient: Chief Complaint: Fall Referrals: Bill Lou MD [Primary Care Provider] - What to do if you have Problems For any increased pain, shortness of breath, bleeding, nausea or vomiting, chest pain, or any unexpected problems, contact your Primary Care Provider. Call [facility] ([phone]) or report to the closest Emergency Room. Call 911 if necessary. 10/09/172227 <Electronically signed by Whitley Chiu DO> Date Whitley Chiu DO Cosigner Signature (If Indicated): Date CC: Bill Lou MD DISCHARGE INSTRUCTION Observed: 10/09/2017 Status: F Source: [place] 10:28 PM [facility] REPOSITORY [facility] Medical Records Department [address] [place] [address] Discharge Instruction 10/09/172227 MR#: [id number] Acct: [id number] Name: SHAYECHRISSIE Mikhail Rep #: [id number] : 1980 37 From: Whitley Chiu DO PCP: Bill Lou MD Status: REG ER ED Disposition - Plan for ED Patient: Chief Complaint: Fall Instructions: ED Mechanical Fall, ED Sprain Knee, ED Contusion Hip Referrals: Bill Lou MD [Primary Care Provider] - Francisco Mae MD [STAFF PHYSICIAN] - 5-7 Days What to do if you have Problems For any increased pain, shortness of breath, bleeding, nausea or vomiting, chest pain, or any unexpected problems, contact your Primary Care Provider. Call [facility] ([phone]) or report to the closest Emergency Room. Call 911 if necessary. 10/09/17 2228 <Electronically signed by Whitley Chiu DO> Date Whitley Chiu DO Cosigner Signature (If Indicated): Date CC: Bill Lou MD KNEE 3 VIEWS Observed: 10/09/2017 Status: F Source: [place] 9:17 PM [facility] REPOSITORY [facility] Imaging Services [address] [place] [id number] Knee 3 Views MR#: [id number] Acct: [id number] Name: CHRISSIE CR Rep #: [id number] : 1980 F 37 From: Jaun Decker MD PCP: Bill Lou MD Status: REG ER Study: Knee 3 Views Date of Exam: 10/09/17 Exam# [id number] Ordering Dr: Whitley Chiu DO STUDY: X-RAY - LEFT KNEE REASON FOR EXAM: Female, 37 years old. Trauma TECHNIQUE: 3 view(s) of the knee. COMPARISON: None. FINDINGS: Knee prosthesis is present in anatomic alignment and position. No evidence for acute fracture or dislocation RAD/Knee 3 Views IMPRESSION: Stable appearance to left knee prosthesis Electronically Signed: Jaun Decker MD at 21:52 EDT , Service support , CC: Whitley Chiu DO; Bill Lou MD 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: Signed HIP 2-3 VIEWS WITH Observed: 10/09/2017 Status: F Source: [place] PELVIS 9:17 PM [facility] REPOSITORY [facility] Imaging Services [address] [place] [address] Hip 2-3 Views with Pelvis MR#: [id number] Acct: [id number] Name: CHRISSIE CR Rep #: [id number] : 1980 F 37 From: Jaun Decker MD PCP: Bill Lou MD Status: REG ER Study: Hip 2-3 Views with Pelvis Date of Exam: 10/09/17 Exam# [id number] Ordering Dr: Whitley Chiu DO STUDY: X-RAY - PELVIS AND LEFT HIP REASON FOR EXAM: Female, 37 years old. Trauma TECHNIQUE: Radiological exam, hip, unilateral, with pelvis when performed; 2 or 3 views. COMPARISON: None. FINDINGS: There is a non-specific bowel gas pattern. Normal visualized soft tissue structures. Normal bilateral iliac wings, sacroiliac joints and visualized sacrum. Normal bilateral superior and inferior pubic rami. Normal pubic symphysis. Normal bilateral ischial tuberosities. Normal visualized femoral head. Normal acetabulum. Normal hip joint. RAD/Hip 2-3 Views with Pelvis IMPRESSION: Normal x-ray examination of the pelvis and hip. Electronically Signed: Jaun Decker MD at 21:53 EDT , Service support , CC: Whitley Chiu DO; Bill Lou MD 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: Signed PROGRESS Observed: 10/08/2017 Status: COMPLETED Source: [place] 2:13 PM [facility] [place] REPOSITORY HNO ID: [id number] Author: Geraldine Sharp (Ramon Jauregui Service: (none) Author Type: Nurse Practitioner Type: Progress Notes Filed: 10/08/2017 4:02 PM Note Text: SUBJECTIVE: Chrissie Cr presents to [facility] Pain Management Department for a followup appointment for back pain. Since the last visit, Chrissie Cr states the pain has been getting worse. Current pain intensity is 6 on a scale of 0-10. Pain located in Back area and does not radiate. Pain described as aching, excruciating, pulsating, severe and throbbing The patient Reports morning stiffness. Symptoms interfere with physical activity, walking and household cleaning. Pain is exacerbated by forward flexion, lifting, getting up from sitting and walking. Pain is mitigated by medications and heat. The patient is overall improved with the injections by 90%. REVIEW OF SYSTEMS: Constitutional: (-) Fever (+) Night Sweats (-) Weight Gain (-) Weight Loss (+) Fatigue Cardiovascular: (-) Chest Pain (-) Palpitations (-) Lightheadedness (+) Swelling of Ankles (+) Hx Heart Surgery Respiratory: (+) Shortness of Breath (-) Cough (-) Wheezing (-) Snoring Gastrointestinal: (-) Incontinence (-) Abdominal Pain (-) Diarrhea (+) Constipation (-) Nausea/Vomiting (-) Heart Burn Endocrine: (-) Thyroid Disorder (-) Diabetes Hematologic: (-) Prolonged Bleeding (-) Easy Bruising Genitourinary: (-) Incontinence (-) Frequency (-) Urinary Urgency Skin: (-) Rashes (-) Itching (-) Other Lesions Neurologic: (-) Headache (-) Double Vision (-) Confusion (-) Paralysis Psychiatric: (+) Depression (+) Anxiety (-) Delusions (-) Hallucinations (-) Personal History of Alcohol or Substance Abuse (-) Family History of Alcohol or Substance Abuse OBJECTIVE: Pulse 79 Wt 188 lb (85.3kg) SpO2 96% PHYSICAL EXAMINATION: General appearance: Well appearing, in no acute distress, alert Skin: Skin color, texture, turgor normal, no rashes or lesions Neck: No pain to palpation over the cervical paraspinous muscles. No pain with neck flexion, extension, or lateral flexion Cardiovascular: Regular rate Lungs: Normal respiratory rate and rhythm Abdomen: Abdomen soft and non-tender. Back: Intact range of motion Spine: Reports Tenderness on palpation: Lumbar/Pelvic, bilateral SI tenderness, positive DINA, positive sacral thrust Extremities: No deformities, edema, or skin discoloration. Good capillary refill. Musculoskeletal: Bilateral upper and lower extremity strength is normal and symmetric. No atrophy or tone abnormalities are noted. Neuro: No loss of sensation is noted. Station and Gait: Normal stance, normal gait. Motor: Exhibits full strength in all four extremities. Trigger points: none. ASSESSMENT: Assessment : Pt reports her neck pain has been stable Pt reports bilaterally SI tenderness. Her last SI RFAs were in 2014 with 90% pain relief for 2 years. The pain has returned and she would like to repeat. Encounter Diagnosis ICD-10-CM 1. Cervicalgia M54.2 2. DDD (degenerative disc disease), lumbar M51.36 NRV DESTR RFA, CHEM OTHER oxyCODONE-acetaminophen (PERCOCET) 5-325 mg tablet 3. 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 All prescriptions have been APPROPRIATELY filled. No suspicious activity was identified.- 10/08/2017 by Kinjal Villarreal MA Narcotic Agreement reviewed and signed?: N/A on October 08, 2017 Urine Panel: Lab Results Component Value Date Cannabinoid Quant, Urine <16 06/12/2015 Benzoylecognine Quant, Urine <24 06/12/2015 6-Acetylmorphine Quant, Urine <5 06/12/2015 Amphetamine Quant, Urine <5 06/12/2015 Methamphetamine Quant, Urine <8 06/12/2015 Buprenorphine Quant, Urine <20 06/12/2015 Norbuprenorphine Quant, Urine <20 06/12/2015 Methadone Quant, Urine <16 06/12/2015 EDDP Quant, Urine <6 06/12/2015 Tramadol Quant, Urine <25 06/12/2015 Desmethyltramadol Quant, Urine <20 06/12/2015 Fentanyl Quant, Urine <6 06/12/2015 Norfentanyl Quant, Urine <6 06/12/2015 Codeine Quant, Urine <11 06/12/2015 Morphine Quant, Urine <10 06/12/2015 Dihydrocodeine Quant, Urine <5 06/12/2015 Hydrocodone Quant, Urine <8 06/12/2015 Oxycodone Quant, Urine <5 06/12/2015 Hydromorphone Quant, Urine <5 06/12/2015 Oxymorphone Quant, Urine 250 (H) 06/12/2015 Creatinine,Ur Pain Anaya 10-20 06/12/2015 Urine pH, Pain Anaya 4-10 06/12/2015 Specific [place],Ur Pain Anaya 1.002 06/12/2015 Oxidants,Ur Negative 06/12/2015 Specimen Quality, Ur Pain Anaya Possible sample dilution indicated. 06/12/2015 The pain panel was N/A PLAN: 1) Ordered right and then left SI RFAs 2) Encouraged daily exercise and stretching 3) RTC 6 months The above plan and management options were discussed at length with patient. Patient is in agreement with the above and verbalized understanding. Geraldine Jauregui APRN, CNP October 08, 2017 CNOV Observed: 10/08/2017 Status: COMPLETED Source: [place] 1:10 PM [facility] REPOSITORY Office Visit (PNMDNA) CHRISSIE CR ([id number]) 1980 F HPR Date Time Provider Department 10/08/17 1:10 PM GERALDINE JAUREGUI (FILIBERTO) PNMDNA During your visit today, we recorded the following information about you: Pulse Weight 79/minute 85.3 kg Geraldine Jauregui APRN.FILIEBRTO 10/08/2017 4:02 PM Signed SUBJECTIVE: Chrissie Cr presents to [facility] Pain Management Department for a followup appointment for back pain. Since the last visit, Chrissie Elizondo Shaye states the pain has been getting worse. Current pain intensity is 6 on a scale of 0-10. Pain located in Back area and does not radiate. Pain described as aching, excruciating, pulsating, severe and throbbing The patient Reports morning stiffness. Symptoms interfere with physical activity, walking and household cleaning. Pain is exacerbated by forward flexion, lifting, getting up from sitting and walking. Pain is mitigated by medications and heat. The patient is overall improved with the injections by 90%. REVIEW OF SYSTEMS: Constitutional: (-) Fever (+) Night Sweats (-) Weight Gain (-) Weight Loss (+) Fatigue Cardiovascular: (-) Chest Pain (-) Palpitations (-) Lightheadedness (+) Swelling of Ankles (+) Hx Heart Surgery Respiratory: (+) Shortness of Breath (-) Cough (-) Wheezing (-) Snoring Gastrointestinal: (-) Incontinence (-) Abdominal Pain (-) Diarrhea (+) Constipation (-) Nausea/Vomiting (-) Heart Burn Endocrine: (-) Thyroid Disorder (-) Diabetes Hematologic: (-) Prolonged Bleeding (-) Easy Bruising Genitourinary: (-) Incontinence (-) Frequency (-) Urinary Urgency Skin: (-) Rashes (-) Itching (-) Other Lesions Neurologic: (-) Headache (-) Double Vision (-) Confusion (-) Paralysis Psychiatric: (+) Depression (+) Anxiety (-) Delusions (-) Hallucinations (-) Personal History of Alcohol or Substance Abuse (-) Family History of Alcohol or Substance Abuse OBJECTIVE: Pulse 79 Wt 188 lb (85.3kg) SpO2 96% PHYSICAL EXAMINATION: General appearance: Well appearing, in no acute distress, alert Skin: Skin color, texture, turgor normal, no rashes or lesions Neck: No pain to palpation over the cervical paraspinous muscles. No pain with neck flexion, extension, or lateral flexion Cardiovascular: Regular rate Lungs: Normal respiratory rate and rhythm Abdomen: Abdomen soft and non-tender. Back: Intact range of motion Spine: Reports Tenderness on palpation: Lumbar/Pelvic, bilateral SI tenderness, positive DINA, positive sacral thrust Extremities: No deformities, edema, or skin discoloration. Good capillary refill. Musculoskeletal: Bilateral upper and lower extremity strength is normal and symmetric. No atrophy or tone abnormalities are noted. Neuro: No loss of sensation is noted. Station and Gait: Normal stance, normal gait. Motor: Exhibits full strength in all four extremities. Trigger points: none. ASSESSMENT: Assessment : Pt reports her neck pain has been stable Pt reports bilaterally SI tenderness. Her last SI RFAs were in 2014 with 90% pain relief for 2 years. The pain has returned and she would like to repeat. Encounter Diagnosis ICD-10-CM 1. Cervicalgia M54.2 2. DDD (degenerative disc disease), lumbar M51.36 NRV DESTR RFA, CHEM OTHER oxyCODONE-acetaminophen (PERCOCET) 5-325 mg tablet 3. 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 All prescriptions have been APPROPRIATELY filled. No suspicious activity was identified.- 10/08/2017 by Kinjal Villarreal MA Narcotic Agreement reviewed and signed?: N/A on October 08, 2017 Urine Panel: Lab Results Component Value Date Cannabinoid Quant, Urine <16 06/12/2015 Benzoylecognine Quant, Urine <24 06/12/2015 6-Acetylmorphine Quant, Urine <5 06/12/2015 Amphetamine Quant, Urine <5 06/12/2015 Methamphetamine Quant, Urine <8 06/12/2015 Buprenorphine Quant, Urine <20 06/12/2015 Norbuprenorphine Quant, Urine <20 06/12/2015 Methadone Quant, Urine <16 06/12/2015 EDDP Quant, Urine <6 06/12/2015 Tramadol Quant, Urine <25 06/12/2015 Desmethyltramadol Quant, Urine <20 06/12/2015 Fentanyl Quant, Urine <6 06/12/2015 Norfentanyl Quant, Urine <6 06/12/2015 Codeine Quant, Urine <11 06/12/2015 Morphine Quant, Urine <10 06/12/2015 Dihydrocodeine Quant, Urine <5 06/12/2015 Hydrocodone Quant, Urine <8 06/12/2015 Oxycodone Quant, Urine <5 06/12/2015 Hydromorphone Quant, Urine <5 06/12/2015 Oxymorphone Quant, Urine 250 (H) 06/12/2015 Creatinine,Ur Pain Anaya 10-20 06/12/2015 Urine pH, Pain Anaya 4-10 06/12/2015 Specific [place],Ur Pain Anaya 1.002 06/12/2015 Oxidants,Ur Negative 06/12/2015 Specimen Quality, Ur Pain Anaya Possible sample dilution indicated. 06/12/2015 The pain panel was N/A PLAN: 1) Ordered right and then left SI RFAs 2) Encouraged daily exercise and stretching 3) RTC 6 months The above plan and management options were discussed at length with patient. Patient is in agreement with the above and verbalized understanding. Geraldine Jauregui APRN, RIVET SPINNER October 08, 2017 Referring Provider: SATYA MAY [[id number]] Allergies As of Date: 10/08/2017 Noted Allergy Reaction ERYTHROMYCIN 09/26/2005 11 - Vomiting AMITRIPTYLINE 05/29/2015 14 - Other: See Comments Comments: sweating AMOXICILLIN 12/02/2000 2 - Rash Comments: REACTION WHEN SHE WAS A CHILD BENADRYL (DIPHENHYDRAMINE HCL) 12/14/2013 14 - Other: See Comments Comments: Muscle spasms CELECOXIB 14 - Other: See Comments CYMBALTA (DULOXETINE) 04/11/2014 14 - Other: See Comments Comments: Worsened depression LEVAQUIN (LEVOFLOXACIN) 04/16/2016 4 - Hives Comments: bilsters over entire body MELOXICAM 10/16/2012 5 - Intolerance Comments: Caused pt to have restless legs and arms SAVELLA (MILNACIPRAN) 05/29/2015 14 - Other: See Comments Comments: Elevated BP, ? rhabdomyolysis TYLENOL (ACETAMINOPHEN) 09/30/2012 8 - GI Upset Date Reviewed: 10/08/2017 Reviewed by: Kinjal Villarreal MA - Fully Assessed Reason for Visit: Follow Up [171] Cmt: Back Pain Primary Visit Diagnosis:Cervicalgia [M54.2] Other Visit Diagnoses:DDD (degenerative disc disease), lumbar [M51.36] SI joint arthritis [M46.98] Order(s):NRV DESTR RFA, CHEM OTHER [[id number]] Order #: [id number] oxyCODONE-acetaminophen (PERCOCET) 5-325 mg tabletTake 1 tablet by mouth every 4 hours as needed for Pain for up to 7 days.Disp: 28 tabletRfl: 0 Prescriptions as of 10/08/2017 Sig: TIZANIDINE 4 MG TABLET Take 1 tablet by mouth every * OXAPROZIN 600 MG TABLET Take 2 tablets by mouth once * CARVEDILOL 6.25 MG TABLET Take 6.25 mg by mouth twice d* MEDROXYPROGESTERONE 150 MG/ML* Inject 1 mL intramuscularly e* MONTELUKAST 10 MG TABLET Take 1 tablet by mouth daily * FAMOTIDINE 20 MG TABLET Take 1 tablet by mouth twice * ALBUTEROL SULFATE 2.5 MG/3 ML* Use 3 mL via nebulizer every * COMPOUNDED PRESCRIPTION Nebulizer TRAZODONE 150 MG TABLET Take 1 tablet by mouth daily * LEVETIRACETAM 750 MG TABLET Take 2 tablets by mouth twice* CLONAZEPAM 0.5 MG TABLET Take 0.5 mg by mouth at bedti* ALBUTEROL SULFATE HFA 90 MCG/* Inhale 2 Puffs as instructed * COMPOUNDED PRESCRIPTION BLOOD PRESSURE CUFF FOR HOME * OXYCODONE-ACETAMINOPHEN 5 MG-* Take 1 tablet by mouth every * GABAPENTIN 400 MG CAPSULE Take 1 capsule by mouth four * ALBUTEROL SULFATE CONCENTRATE* Inhale 0.5 mL as instructed o* Problem List As Of Date 10/08/2017 Noted Resolved 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 disorder [I35.9] Priority: A SUPERVIS OTHER NORMAL PREG [Z34.80] INVALID FOR*02/10/2008 THREATEN ABORT-ANTEPART [O20.0] INVALID FOR*02/10/2008 Migraine, unspecified, without mention of intra*INVALID FOR* Priority: A 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 DDD (degenerative disc disease), lumbar [M51.36]INVALID FOR* Priority: D More... 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 Pulmonary emboli (HCC) [I26.99] INVALID FOR* More... Lacunar infarct, acute (HCC) [I63.9] INVALID FOR* More... 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 Encounter Status:Closed by GERALDINE JAUREGUI on 10/08/17 PROGRESS Observed: 10/06/2017 Status: COMPLETED Source: [place] 11:32 PM [facility] [place] REPOSITORY O ID: [id number] Author: Romain Aragon (Pt) Service: (none) Author Type: Physical Therapist Type: Progress Notes Filed: 10/06/2017 11:39 PM Note Text: Episode Visit Count: 3 Therapist That Will Oversee The Plan Of Care: Romain Aragon Start of Care Date: 09/17/17 Plan of Care Certification Date: 09/17/17 REHABILITATION AND SPORTS THERAPY PHYSICAL THERAPY TREATMENT NOTE ASSESSMENT: Chrissie Cr demonstrated improvements in tolerance for exercises today, progressing to The patient will continue to benefit from continued skilled physical therapy for progressive exercises and decreased pain. PLAN FOR NEXT VISIT: continue to progress exercises per patient tolerance SUBJECTIVE: pt got her hand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 Comments Comments: Worsened depression LEVAQUIN (LEVOFLOXACIN) 04/16/2016 4 - Hives Comments: bilsters over entire body MELOXICAM 10/16/2012 5 - Intolerance Comments: Caused pt to have restless legs and arms SAVELLA (MILNACIPRAN) 05/29/2015 14 - Other: See Comments Comments: Elevated BP, ? rhabdomyolysis TYLENOL (ACETAMINOPHEN) 09/30/2012 8 - GI Upset Date Reviewed: 10/01/2017 Reviewed by: Darcy Hester LPN - Fully Assessed Reason for Visit: left wrist check [Other] Primary Visit Diagnosis:Right hand pain [M79.641] Order(s):XR HAND GENERAL 3V PA/LAT/OBL LT [[id number]] Order #: [id number] FUTURE Prescriptions as of 10/01/2017 Sig: TIZANIDINE 4 MG TABLET Take 1 tablet by mouth every * OXAPROZIN 600 MG TABLET Take 2 tablets by mouth once * CARVEDILOL 6.25 MG TABLET Take 6.25 mg by mouth twice d* MEDROXYPROGESTERONE 150 MG/ML* Inject 1 mL intramuscularly e* MONTELUKAST 10 MG TABLET Take 1 tablet by mouth daily * FAMOTIDINE 20 MG TABLET Take 1 tablet by mouth twice * ALBUTEROL SULFATE 2.5 MG/3 ML* Use 3 mL via nebulizer every * COMPOUNDED PRESCRIPTION Nebulizer TRAZODONE 150 MG TABLET Take 1 tablet by mouth daily * LEVETIRACETAM 750 MG TABLET Take 2 tablets by mouth twice* CLONAZEPAM 0.5 MG TABLET Take 0.5 mg by mouth at bedti* ALBUTEROL SULFATE HFA 90 MCG/* Inhale 2 Puffs as instructed * COMPOUNDED PRESCRIPTION BLOOD PRESSURE CUFF FOR HOME * GABAPENTIN 400 MG CAPSULE Take 1 capsule by mouth four * ALBUTEROL SULFATE CONCENTRATE* Inhale 0.5 mL as instructed o* Problem List As Of Date 10/01/2017 Noted Resolved 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 disorder [I35.9] Priority: A SUPERVIS OTHER NORMAL PREG [Z34.80] INVALID FOR*02/10/2008 THREATEN ABORT-ANTEPART [O20.0] INVALID FOR*02/10/2008 Migraine, unspecified, without mention of intra*INVALID FOR* Priority: A 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 DDD (degenerative disc disease), lumbar [M51.36]INVALID FOR* Priority: D More... 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 Pulmonary emboli (HCC) [I26.99] INVALID FOR* More... Lacunar infarct, acute (HCC) [I63.9] INVALID FOR* More... 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 Patient was exercising and started with pain. This has happened before when she tries to exercise. Patient went to ED last night. Darcy Hester LPN Disposition: Return if symptoms worsen or fail to improve. Follow-up and Disposition History Recorded Encounter Status:Closed by BILL LOU MD on 10/01/17 EMERGENCY DEPARTMENT Observed: 10/01/2017 Status: F Source: [place] SUMMARY 12:08 AM [facility] REPOSITORY [facility] Medical Records Department [address] [place] [address] Emergency Department Summary 09/30/17 2139 MR#: [id number] Acct: [id number] Name: CHRISSIE CR Rep #: [id number] : 1980 37 From: Schuyler Ceballos DO PCP: Bill Lou MD Status: DEP ER - ER Visit Summary Date of Service: 09/30/17 Chief Complaint: Back hips and knee pain History of Present Illness: The patient is a 37 F states that yesterday she did 13,000 steps and then went to the. She states she feels like she overdid it as she has pain in the back the hips the knees. States she feels very sore. She states that this is sometimes what happens. She states that when this happened she comes the emergency department for breakthrough pain control. This is her 12th emergency department visit this year. She has no red flag symptoms such as loss of bowel or bladder control muscle weakness or sensation loss fevers rashes. Physical Examination: Afebrile vital signs are stable Gen: Well-nourished well-developed Head: Normocephalic atraumatic Eyes: Perrl EOMI ENT: TMs clear no rhinorrhea moist mucous membranes Neck: Supple no lymphadenopathy no JVD nontender CVS: Regular rate rhythm no murmurs normal S1-S2 Respiratory: No distress clear to auscultation bilaterally chest nontender Abdomen: Soft nontender nondistended normal bowel sounds no masses Back: Paraspinal musculature tenderness to palpation Extremity: Nontender no edema Skin: Normal color no rash Neuro: alert orientated 3 CN II-XII intact normal strength sensation reflexes Psych: Normal affect normal mood Emergency Department Course and Treatment: Patient was given a shot of Toradol. She will be discharged home. Advised her to fluid hydration and active rest. Impression: 1. Generalized myalgias This note was generated with [employer] dictation software. It may contain incorrect words, spelling, and punctuation that were not noted in review of the chart prior to signing ED Disposition - Plan for ED Patient: Disposition: Home or Assisted Living Chief Complaint: Lower Extremity Injury Instructions: ED Muscle Aching Referrals: Bill Lou MD [Primary Care Provider] - 1 Week if not improving What to do if you have Problems For any increased pain, shortness of breath, bleeding, nausea or vomiting, chest pain, or any unexpected problems, contact your Primary Care Provider. Call [facility] ([phone]) or report to the closest Emergency Room. Call 911 if necessary. 10/01/17 0008 <Electronically signed by Schuyler Ceballos DO> Date Schuyler Ceballos DO Cosigner Signature (If Indicated): Date CC: Bill Lou MD CNTHERAPY Observed: 09/29/2017 Status: COMPLETED Source: [place] 3:30 PM [facility] REPOSITORY OT/PT/Speech Visit (PTWS) CHRISSIE CR ([id number]) 1980 F HPR Date Time Provider Department 09/29/17 3:30 PM ROMAIN ARAGON (PT) PTWS Date Time Provider Department Center 09/29/2017 3:30 PM [id number], SEAN (PT)PTWS [facility] Reason for Visit: Physical Therapy [503] Primary Visit Diagnosis:DDD (degenerative disc disease), lumbar [M51.36] Allergies As of Date: 09/29/2017 Noted Allergy Reaction ERYTHROMYCIN 09/26/2005 11 - Vomiting AMITRIPTYLINE 05/29/2015 14 - Other: See Comments Comments: sweating AMOXICILLIN 12/02/2000 2 - Rash Comments: REACTION WHEN SHE WAS A CHILD BENADRYL (DIPHENHYDRAMINE HCL) 12/14/2013 14 - Other: See Comments Comments: Muscle spasms CELECOXIB 14 - Other: See Comments CYMBALTA (DULOXETINE) 04/11/2014 14 - Other: See Comments Comments: Worsened depression LEVAQUIN (LEVOFLOXACIN) 04/16/2016 4 - Hives Comments: bilsters over entire body MELOXICAM 10/16/2012 5 - Intolerance Comments: Caused pt to have restless legs and arms SAVELLA (MILNACIPRAN) 05/29/2015 14 - Other: See Comments Comments: Elevated BP, ? rhabdomyolysis TYLENOL (ACETAMINOPHEN) 09/30/2012 8 - GI Upset Date Reviewed: 09/17/2017 Reviewed by: Jasmin Stock LPN - Fully Assessed Prescriptions as of 09/29/2017 Sig: TIZANIDINE 4 MG TABLET Take 1 tablet by mouth every * OXAPROZIN 600 MG TABLET Take 2 tablets by mouth once * CARVEDILOL 6.25 MG TABLET Take 6.25 mg by mouth twice d* MEDROXYPROGESTERONE 150 MG/ML* Inject 1 mL intramuscularly e* MONTELUKAST 10 MG TABLET Take 1 tablet by mouth daily * FAMOTIDINE 20 MG TABLET Take 1 tablet by mouth twice * ALBUTEROL SULFATE 2.5 MG/3 ML* Use 3 mL via nebulizer every * COMPOUNDED PRESCRIPTION Nebulizer TRAZODONE 150 MG TABLET Take 1 tablet by mouth daily * LEVETIRACETAM 750 MG TABLET Take 2 tablets by mouth twice* CLONAZEPAM 0.5 MG TABLET Take 0.5 mg by mouth at bedti* ALBUTEROL SULFATE HFA 90 MCG/* Inhale 2 Puffs as instructed * COMPOUNDED PRESCRIPTION BLOOD PRESSURE CUFF FOR HOME * Progress Notes: Romain Aragon (Pt) 10/02/2017 11:40 AM Signed Episode Visit Count: 2 Therapist That Will Oversee The Plan Of Care: Romain Aragon Start of Care Date: 09/17/17 Plan of Care Certification Date: 09/17/17 REHABILITATION AND SPORTS THERAPY PHYSICAL THERAPY TREATMENT NOTE ASSESSMENT: Chrissie Cr demonstrated difficulty with core strengthening exercises today, and needed to quit after a half hour. Patient unable to progress from first session. The patient will continue to benefit from continued skilled physical therapy for core strengthening and manual techniques to decrease back pain and improve overall function. PLAN FOR NEXT VISIT: continue with current exercises, progressing per patient tolerance. SUBJECTIVE: pt with no change currently since first being seen, exercises are going ok. Pain Score: 8/10 Pain Location: Back Description: Sharp;Cramping Frequency: Continuous OBJECTIVE MEASURES WITH LEVEL OF FUNCTION: None taken today TREATMENT: Therapeutic Exercise: 1: Supine TA bracing with 2-3 sec holds, x10 2: Supine TA bracing with alt marching x5/side 3: Supine TA bracing plus alt opposites arms and legs x5/side 4: Supine O Tband perturbations x10 at 5 points 5: RFIL x10 6: SciFit x5 minutes- subjective taken at this time and pt explained purpose and progression of exercise Skilled Intervention: Patient was educated in proper exercise technique and purpose for exercises. Skilled judgment was provided in selection of appropriate interventions. Correct performance of therapeutic exercises was facilitated with verbal and visual cuing. Billing: [facility]: Therapeutic Exercise ([id number]): 1:1 time: 30 minutes (2 units: 23-37 mins) Total time: 30 minutes Romain Aragon PT 12 LEAD ELECTROCARDIOGRAM Observed: 09/26/2017 Status: F Source: [place] 3:22 PM [facility] REPOSITORY [facility] Cardiovascular Services [address] [place] [id number] 12 Lead EKG 09/23/17 1336 MR#: [id number] Acct: [id number] Name: CHRISSIE CR Rep #: [id number] : 1980 37 From: Ross Harris MD Attending Dr: Status: DEP Ordering Dr: Jaun Singh MD Date: 09/23/17 Location: ED Sex: F C Admitted: Test Reason : CP Blood Pressure : / mmHG Vent. Rate : 056 BPM Atrial Rate : 056 BPM P-R Int : 154 ms QRS Dur : 082 ms QT Int : 458 ms P-R-T Axes : 053 028 065 degrees QTc Int : 441 ms Sinus bradycardia Otherwise normal ECG Confirmed by ROSS HARRIS MD ([id number]), book or script editor OANH AGARWAL ([id number]) on 09/26/2017 3:22:09 PM Referred By: ISAAC Confirmed By:ROSS HARRIS MD 09/26/17 1522 Date Ross Harris MD CC: aJun Singh MD; Bill Lou MD Signed CT ANGIOGRAPHY CHEST Observed: 09/24/2017 Status: F Source: [place] W/CONTRAST 11:14 PM [facility] REPOSITORY ORIGINAL CT ANGIOGRAPHY CHEST W/CONTRAST: Multiplanar sagittal, axial, coronal, and 3D reconstructions were reviewed on a separate workstation. This exam was performed according to our departmental dose optimization program, and includes the following measures where applicable: automated exposure control, adjustment of the mAs and/or kVp accord ing to patient size and/or exam, and an iterative reconstruction algorithm. CLINICAL INDICATION: chest pain; suspect PE, history of pulmonary embolism and aortic valve repair COMPARISON: Chest radiographs performed the same day FINDINGS: The contrast bolus is adequate for the evaluation of the lobar and segmental pulmonary arterial branches. No intraluminal thrombus or abrupt arterial cut off is seen to suggest acute pulmonary embolism. The main pulmonary artery is normal in caliber, and there is no evidence of RIGHT ventricular strain. The thoracic aorta is of normal course and caliber. The trachea and mainstem bronchi are patent. The esophagus demonstrates a small hernia. The visualized thyroid exhibits no focal abnormality. No pathologically enlarged axillary, hilar, or mediastinal lymph nodes are identified. No focal consolidation, pleural effusion, or pneumothorax is seen. Scarring and/or atelectasis is noted lateral aspect inferior RIGHT upper lobe. There are no pulmonary masses or suspicious pulmonary nodules. No suspicious osseous lesions are identified. Patient status post median sternotomy. Limited images through the upper abdomen are noncontributory.. IMPRESSION: No evidence of pulmonary embolism to the level of the segmental branches. No acute acute findings within the chest. I have personally reviewed the images of this examination and agree with the resident's findings and interpretation. Interpreted By: Arcadio Tobias MD Preliminary Report By: Murphy Montesinos DO Electronically Signed By: Arcadio Tobias MD Dictated Date: 09/24/2017 11:20:10 PM Prelim Date: 09/24/2017 11:24:16 PM Sign Date: 09/24/2017 11:27:54 PM XR CHEST 2 VIEWS Observed: 09/24/2017 Status: F Source: [place] 10:13 PM [facility] REPOSITORY ORIGINAL XR CHEST 2 VIEWS CLINICAL STATEMENT: Chest Pain COMPARISON: 02/03/2017 FINDINGS: The cardiomediastinal contours are normal. The patient is status post median sternotomy. There is no consolidation, vascular congestion, pleural effusion, or pneumothorax. Minimal linear atele ctasis and/or scarring is noted of the RIGHT lung base. Visualized osseous structures are intact. IMPRESSION: No acute cardiopulmonary process. I have personally reviewed the images of this examination and agree with the resident's findings and interpretation. Interpreted By: Arcadio Tobias MD Preliminary Report By: Murphy Montesinos DO Electronically Signed By: Arcadio Tobias MD Dictated Date: 09/24/2017 10:25:53 PM Prelim Date: 09/24/2017 10:26:55 PM Sign Date: 09/24/2017 10:44:33 PM CBC Collected: 09/24/2017 Status: F Source: [facility] 9:55 [facility] REPOSITORY TYPE CODE TESTS RESULT OUT OF REFERENCE UNITS RANGE LAB WBC(LOINC) 4.60-10.80 10 3/mcL WBC 8.50 LAB RBCCT(LOINC 4.20-5.40 10 6/mcL ) Low RBC 4.12 LAB HGB(LOINC) 12.0-16.0 G/dL Hgb 12.6 LAB HCT(LOINC) 37.0-47.0 % Low Hct 36.6 LAB MCV(LOINC) 80.0-94.0 fL MCV 89.0 LAB MCH(LOINC) 27.0-31.2 pg MCH 30.7 LAB MCHC(LOINC) 33.0-37.0 G/dL MCHC 34.5 LAB RDW(LOINC) 11.5-14.5 % RDW 13.8 LAB PLT(LOINC) 130-400 10 3/mcL Platelet 268 LAB MPV(LOINC) 7.4-10.4 fL MPV 8.6 Performed By: #### ANEU, TROP, GFR, BMP, ADIFF, DIMER, CBC #### [place] [id number] .AUTO DIFF Collected: 09/24/2017 Status: F Source: [facility] 9:55 [facility] REPOSITORY TYPE CODE TESTS RESULT OUT OF REFERENCE UNITS RANGE LAB KOURTNEY(LOINC) 37.0-80.0 % Neutrophil % 68.0 LAB LYM(LOINC) 10.0-50.0 % Lymphocyte % 21.2 LAB MON(LOINC) 1.7-13.0 % Monocyte % 8.3 LAB EO(LOINC) 0.0-7.0 % Eosinophil % 1.6 LAB BAS(LOINC) 0.0-2.5 % Basophil % 0.9 LAB ABLYM(LOIN 0.77-3.85 10 3/mcL C) Lymphocyte, 1.80 Absolute LAB GWEN(LOINC 0.15-1.00 10 3/mcL ) Monocyte, 0.70 Absolute LAB AEOS(LOINC 0.00-0.40 10 3/mcL ) Eosinophil, 0.10 Absolute LAB ABAS(LOINC 0.00-0.19 10 3/mcL ) Basophil, 0.10 Absolute Performed By: #### ANEU, TROP, GFR, BMP, ADIFF, DIMER, CBC #### [place] [id number] .NEUABS Collected: 09/24/2017 Status: F Source: [facility] 9:55 [facility] REPOSITORY TYPE CODE TESTS RESULT OUT OF REFERENCE UNITS RANGE LAB ANEU(LOINC) 2.85-6.16 10 3/mcL Neutrophil, 5.80 Absolute Performed By: #### ANEU, TROP, GFR, BMP, ADIFF, DIMER, CBC #### [place] [address] TROP Collected: 09/24/2017 Status: F Source: [facility] 9:55 [facility] REPOSITORY TYPE CODE TESTS RESULT OUT OF REFERENCE UNITS RANGE LAB TROP(LOINC) 0.00-0.30 ng/mL Troponin <0.30 Result Comment: Below measuring range >=0.30 Consistent with cardiac damage, increased clinical risk and possibility of myocardial infarction. Serial measurements, clinical history, appropriate symptoms and/or ECG changes may help assess possibility of WI. *Other non-acute coronary syndrome conditions such as CHF, myocarditis, pulmonary emboli, sepsis and cardiac surgery could result in myocardial damage and increased troponin levels. Performed By: #### ANEU, TROP, GFR, BMP, ADIFF, DIMER, CBC #### [address] [address] .GFR Collected: 09/24/2017 Status: F Source: [facility] 9:55 PM [facility] REPOSITORY TYPE CODE TESTS RESULT OUT OF REFERENCE UNITS RANGE LAB GFRAA(LOINC ml/min/1.73 ) sqm GFR 77 [place] Result Comment: GFR Population mean for , Non- Americans Ages 20-29 = 116 mL/min/1.73 sq.m. Ages 30-39 = 107 mL/min/1.73 sq.m. Ages 40-49 = 99 mL/min/1.73 sq.m. Ages 50-59 = 93 mL/min/1.73 sq.m. Ages 60-69 = 85 mL/min/1.73 sq.m. Ages 70+ = 75 mL/min/1.73 sq.m. Chronic Kidney Disease: Less than 60 mL/min/1.73 square meters End Stage Renal Disease: Less than 15 mL/min/1.73 square meters LAB GFRNO(LOINC) ml/min/1.73sqm GFR Non- >60 Result Comment: GFR Population mean for , Non- Americans Ages 20-29 = 116 mL/min/1.73 sq.m. Ages 30-39 = 107 mL/min/1.73 sq.m. Ages 40-49 = 99 mL/min/1.73 sq.m. Ages 50-59 = 93 mL/min/1.73 sq.m. Ages 60-69 = 85 mL/min/1.73 sq.m. Ages 70+ = 75 mL/min/1.73 sq.m. Chronic Kidney Disease: Less than 60 mL/min/1.73 square meters End Stage Renal Disease: Less than 15 mL/min/1.73 square meters Performed By: #### ANEU, TROP, GFR, BMP, ADIFF, DIMER, CBC #### [address] [address] DIMER Collected: 09/24/2017 Status: F Source: [facility] REPOSITORY TYPE CODE TESTS RESULT OUT OF RANGE REFERENCE UNITS LAB DIMER(LOINC <=0.49 mcg/mL FEU ) High D-Dimer 0.63 Result Comment: The result of the D-Dimer test should be evaluated in the context of all the clinical and laboratory data available. In those instances where the laboratory result does not agree with the clinical evaluation, additional tests should be performed accordingly. Performed By: #### ANEU, TROP, GFR, BMP, ADIFF, DIMER, CBC #### [place] [address] [place], [place] [address] BMP Collected: 09/24/2017 Status: F Source: [facility] REPOSITORY TYPE CODE TESTS RESULT OUT OF REFERENCE UNITS RANGE LAB 1547-9 70-105 mg/dL GLUCOSE 80 LAB NA(LOINC) 136-146 mEq/L Low Sodium Level 135 LAB K(LOINC) 3.5-5.1 mEq/L Potassium Level 4.0 LAB CL(LOINC) 98-107 mEq/L Chloride 105 LAB CO2(LOINC) 22-29 mEq/L CO2 22 LAB EBAL(LOINC mEq/L ) Electrolyte Balance 8.0 LAB BUN(LOINC) 7.0-18.0 mg/dL BUN High 20.0 LAB CRE(LOINC) 0.6-1.2 mg/dL Creatinine Lvl (s) 1.0 LAB BC(LOINC) 7-27 ratio BUN/Creatinine 20 Ratio LAB CA(LOINC) 8.4-10.2 mg/dL Calcium Lvl 9.6 Performed By: #### ANEU, TROP, GFR, BMP, ADIFF, DIMER, CBC #### [place] [address] [place], [place] [address] 12 LEAD ELECTROCARDIOGRAM Observed: 09/24/2017 Status: F Source: [place] 6:08 PM [facility] REPOSITORY [facility] Cardiovascular Services [address] [place] [address] 12 Lead EKG 09/20/171947 MR#: [id number] Acct: [id number] Name: CHRISSIE CR Mikhail Rep #: [id number] : 1980 37 From: Ross Harris MD Attending Dr: Status: DEP ER Ordering Dr: Topher Colon MD Date: 09/20/17 Location: ED Sex: F C Admitted: Test Reason : Blood Pressure : / mmHG Vent. Rate : 073 BPM Atrial Rate : 073 BPM P-R Int : 128 ms QRS Dur : 078 ms QT Int : 410 ms P-R-T Axes : 040 016 063 degrees QTc Int : 451 ms Normal sinus rhythm Nonspecific ST and T wave abnormality Abnormal ECG Confirmed by CIERA ADAMS, ROSS ([id number]), book or script editor OANH AGARWAL ([id number]) on 09/23/2017 2:07:09 PM Referred By: Confirmed By:ROSS HARRIS MD 09/23/17 140 Date Ross Harris MD CC: Topher Colon MD; Bill Lou MD Signed 12 LEAD ELECTROCARDIOGRAM Observed: 09/24/2017 Status: F Source: [place] 6:08 PM [facility] REPOSITORY [facility] Cardiovascular Services [address] [place] [address] 12 Lead EKG 09/21/17 0041 MR#: [id number] Acct: [id number] Name: CHRISSIE CR Rep #: [id number] : 1980 37 From: Ross Harris MD Attending Dr: Status: DEP ER Ordering Dr: Arcadio Yanes MD Date: 09/21/17 Location: ED Sex: F C Admitted: Test Reason : Blood Pressure : / mmHG Vent. Rate : 064 BPM Atrial Rate : 064 BPM P-R Int : 152 ms QRS Dur : 084 ms QT Int : 446 ms P-R-T Axes : 044 029 075 degrees QTc Int : 460 ms Normal sinus rhythm T wave abnormality, consider anterior ischemia Prolonged QT Abnormal ECG Confirmed by ROSS HARRIS MD ([id number]), book or script editor OANH AGARWAL ([id number]) on 09/23/2017 2:07:30 PM Referred By: LLOYD Confirmed By:ROSS HARRIS MD 09/23/17 140 Date Ross Harris MD CC: Arcadio Yanes; Bill Lou MD Signed EMERGENCY DEPARTMENT Observed: 09/23/2017 Status: F Source: [place] SUMMARY 5:25 PM [facility] REPOSITORY [facility] Medical Records Department [address] [place] [address] Emergency Department Summary 09/23/17 1623 MR#: [id number] Acct: [id number] Name: CHRISSIE CR Rep #: [id number] : 1980 37 From: Jaun Singh MD PCP: Bill Lou MD Status: DEP ER - ER Visit Summary Date of Service: 09/23/17 Chief Complaint: Chest pain History of Present Illness: The patient is a 37 F history of prior TIA, DVT and PE and bicuspid aortic valve. Also mitral valve prolapse. She had a cardiac cath years ago and has had both aortic valve and ASD repair years ago. Patient complaining of chest pain intermittently for weeks. Worse today at 1130. States it comes and goes is not associated with exertion she denies any hemoptysis. She denies any recent travel, surgery or mobilization. Reportedly she is not . She has had prior ER visits workups that were negative. Physical Examination: Anxious female vital signs are stable afebrile. Pulse ox 90% room air no signs of hypoxia. H EENT exam unremarkable neck nontender no JVD. Lungs clear to auscultation bilaterally. Heart regular rate and rhythm no murmur. Chest wall nontender. Abdomen soft nontender normal bowel sounds no peritoneal signs. Moving all 4 extremities. Neurovascular intact. He has pulses are equal symmetrical. Calves are nontender without edema or cords. Her logically she is awake and alert with no focal motor deficits. Test Results: Patient with atypical chest pain test results chest x-ray is normal as read by the radiologist and myself. CBC normal. BMP normal. Troponin normal. EKG sinus bradycardia rate of 56 with no signs of WI or ischemia. No change from a prior EKG from September 21. D-dimer slightly elevated 0.54. Patient did undergo a CT of the chest which showed no acute abnormality. No PE or dissection. I did review the CAT scan myself and was officially read by the radiologist. Emergency Department Course and Treatment: Repeat exam patient doing well she will be discharged home. Treatment Plan: Motrin for pain. Follow-up with her primary care physician Dr. Lou Disposition: Discharge Impression: Acute atypical chest pain of uncertain etiology History of prior valve surgery and atrial septal defect This note was generated with VinPerfectation software. It may contain incorrect words, spelling, and punctuation that were not noted in review of the chart prior to signing ED Disposition - Plan for ED Patient: Chief Complaint: Chest Pain Referrals: Bill Lou MD [Primary Care Provider] - What to do if you have Problems For any increased pain, shortness of breath, bleeding, nausea or vomiting, chest pain, or any unexpected problems, contact your Primary Care Provider. Call [facility] ([phone]) or report to the closest Emergency Room. Call 911 if necessary. 09/23/171724 <Electronically signed by Jaun Singh MD> Date Jaun Singh MD Cosigner Signature (If Indicated): Date CC: Bill Lou MD DISCHARGE INSTRUCTION Observed: 09/23/2017 Status: F Source: [place] 5:25 PM [facility] REPOSITORY [facility] Medical Records Department [address] [place] [address] Discharge Instruction 09/23/17 1628 MR#: [id number] Acct: [id number] Name: CHRISSIE CR Rep #: [id number] : 1980 37 From: Jaun Singh MD PCP: Bill Lou MD Status: [facility] ER ED Disposition - Plan for ED Patient: Disposition: Home or Assisted Living Chief Complaint: Chest Pain Instructions: ED Chest Pain Atypical Unkn Cause Referrals: Bill Lou MD [Primary Care Provider] - As soon as possible Additional Instructions: Call and follow-up your primary care physician soon as possible. Your tests today were unremarkable as was your CAT scan and chest x-ray. What to do if you have Problems For any increased pain, shortness of breath, bleeding, nausea or vomiting, chest pain, or any unexpected problems, contact your Primary Care Provider. Call [facility] ([phone]) or report to the closest Emergency Room. Call 911 if necessary. 09/23/17 1443 <Electronically signed by Jaun Singh MD> Date Jaun Singh MD Cosigner Signature (If Indicated): Date CC: Bill Lou MD CTA CHEST W/WO Observed: 09/23/2017 Status: F Source: [place] CONTRAST 3:22 PM [facility] REPOSITORY [facility] Imaging Services [address] [place] [address] CTA Chest W/WO Contrast MR#: [id number] Acct: [id number] Name: CHRISSIE CR Rep #: [id number] : 1980 F 37 From: Rui Ward MD PCP: Bill Lou MD Status: REG ER Study: CTA Chest W/WO Contrast Date of Exam: 09/23/17 Exam# [id number] Ordering Dr: Jaun Singh MD STUDY: CTA CHEST REASON FOR EXAM: Female, 37 years old. CP, ABN D DIMER RADIATION DOSAGE (If Supplied By Facility): CTDIvol = ( 15.36 ) mGy, DLP = ( 442.84 ) mGycm TECHNIQUE: The examination was performed with the intravenous administration of 75 ml of Isovue 370 contrast material. Post-processing of the angiographic images was performed, with multiplanar reformation and 3D reconstruction. Individualized dose optimization techniques were used for this CT. COMPARISON: None. FINDINGS: Normal enhancement of the main pulmonary artery and right and left pulmonary arteries. Normal enhancement of the bilateral peripheral pulmonary arteries. There is no demonstrated pulmonary embolism. Normal thoracic aorta and visualized great vessels. There is no demonstrated aortic dissection. Normal heart and pericardium. Normal mediastinum. Normal hilar regions. Normal visualized trachea and bronchi. The lungs are well expanded. Ill-defined groundglass opacities are seen in the anterior segment of right lung upper lobe and in the right middle lobe may represent early pneumonia. Normal pleura. Normal chest wall structures. Normal osseous structures. Normal visualized upper abdomen. CT/CTA Chest W/WO Contrast IMPRESSION: No demonstrated pulmonary embolism or arterial dissection. Possible pneumonia in the right upper lobe and right middle lobe. Electronically Signed: Rui Ward MD at 16:13 EDT Tel , Service support , CC: Jaun Singh MD; Bill Lou MD 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: Signed D-DIMER QUANTITATIVE Collected: 09/23/2017 Status: F Source: [place] (DVT/PE) 2:53 PM [facility] REPOSITORY Order Comment: REDRAW. PREVIOUS SPECIMEN REJECTED DUE TO HEMOLYSIS. 09/23/17 1413 Sarah Aguilar. TYPE CODE TESTS RESULT OUT OF RANGE REFERENCE UNITS LAB L300.8000 0.27-0.49 FEU/ug/m High alert D-DIMER 0.54 QUANT Result Comment: D-Dimer ELEVATED (>0.49): Additional studies and clinical assessments are indicated to conclude diagnosis of: Deep Vein Thrombosis (DVT) or Pulmonary Embolism (PE) CRITICAL VALUE VERIFIED. CALLED TO CHUY SEBASTIAN 09/23/17 1517 [place]. RESULTS READ BACK BY SAME. Performed By: #### L300.8000 #### [facility] [address] [place], [address] CBC W/DIFF, AUTOMATED Collected: 09/23/2017 Status: F Source: [place] 1:50 PM [facility] REPOSITORY TYPE CODE TESTS RESULT OUT OF RANGE REFERENCE UNITS LAB L100.1000 4.4-11.0 K/mm3 Normal WBC 8.0 LAB L100.1200 4.2-5.4 M/mm3 Low RBC 4.12 LAB L100.1300 12.0-15.0 g/dl Normal HGB 12.4 LAB L100.1400 37-47 % Normal HCT 37.6 LAB L100.1500 81-99 fL Normal MCV 91.3 LAB L100.1600 27.0-32.0 pg Normal MCH 30.1 LAB L100.1700 32-36 g/gl Normal MCHC 33.0 LAB L100.1810 11.6-14.6 % Normal RDW CV 13.2 LAB L100.1820 35.1-43.9 fl High RDW SD 44.1 LAB L100.1900 150-450 K/mm3 Normal PLT 274 LAB L100.2000 6.2-12.0 fl Normal MPV 10.2 LAB L100.2100 47-70 % High NEUT% 77.3 LAB L100.2200 19-41 % Low LY% 14.6 LAB L100.2300 0-10 % Normal MONO% 6.3 LAB L100.2400 0-5 % Normal EO% 1.1 LAB L100.2500 0-1 % Normal BASO% 0.4 LAB L100.2550 0.0-0.9 % Normal IM GRAN % 0.300 Result Comment: IG% - Immature Granulocytes (promyelocytes, myelocytes and metamyelocytes) > 1% indicates that a LEFT SHIFT is Present. LAB L100.2620 2.0-7.7 X10 3/uL Normal Absolute Neut 6.2 LAB L100.2720 0.83-4.51 X10 3/ul Normal Absolute Lymph 1.17 Performed By: #### L100.0100 #### [facility] [address] [place], [place], [address] BASIC METABOLIC Collected: 09/23/2017 Status: F Source: [place] PROFILE (BMP) 1:50 PM [facility] REPOSITORY Order Comment: 'TROP' Serial specimen #1, #2, #3, or #4: 1 TYPE CODE TESTS RESULT OUT OF RANGE REFERENCE UNITS LAB L501.0100 74-106 mg/dL Normal GLU 99 Result Comment: Please note revised GLUCOSE reference range effective 2017. LAB L501.1000 7-18 mg/dL Normal BUN 18 LAB L501.1100 0.55-1.02 mg/dL High CREAT,SERUM 1.09 Result Comment: The validity of the calculated GFR AND GFRAA in patients over 70 years has not been determined. Clinical correlation is essential. LAB L501.1110 >60 mL/min Low EST GFR 59 Result Comment: Non- GFR Calc LAB L501.1115 >60 mL/min Normal EST GFR - AA 72 Result Comment: GFR Calc LAB L501.1255 ml/min Normal Estimated CRCL 57.32 LAB L501.1300 10-20 RATIO Normal BUN/CRE 16.5 LAB L501.2200 8.5-10 mg/dL Normal .1 CA 8.6 LAB L501.5300 136-14 mmol/L Normal 5 NA 138 LAB L501.5600 3.5-5. mmol/L Normal 1 K 4.2 LAB L501.5900 98-107 mmol/L Normal CL 107 LAB L501.6100 21.0-3 mmol/L Normal 2.0 CO2 22.0 LAB L501.6200 5-15 Normal GAP 9 Performed By: #### L500.2500, L501.4010 #### [facility] [address] [place], [address] TROPONIN-I Collected: 09/23/2017 Status: F Source: [place] 1:50 PM [facility] REPOSITORY Order Comment: 'TROP' Serial specimen #1, #2, #3, or #4: 1 TYPE CODE TESTS RESULT OUT OF RANGE REFERENCE UNITS LAB L501.4010 <0.06 ng/mL Normal < 0.02 TROPONIN-I Result Comment: TROPONIN-I EXPECTED VALUES <0.05 NEGATIVE 0.06 - 0.59 AT RISK OF WI > OR = 0.60 SUGGEST WI Performed By: #### L500.2500, L501.4010 #### [facility] [address] [place], [place], [address] CHEST 1 VIEW Observed: 09/23/2017 Status: F Source: [place] (PORTABLE) 1:41 PM [facility] REPOSITORY [facility] Imaging Services [address] [place] [address] Chest 1 View (Portable) MR#: [id number] Acct: [id number] Name: CHRISSIE CR Rep #: [id number] : 1980 F 37 From: Rui Ward MD PCP: Bill Lou MD Status: REG ER Study: Chest 1 View (Portable) Date of Exam: 09/23/17 Exam# [id number] Ordering Dr: Jaun Singh MD STUDY: X-RAY CHEST REASON FOR EXAM: Female, 37 years old. chest pain since 11am today, HX open heart surgery in 2000 TECHNIQUE: Single AP portable view of the chest. COMPARISON: None. FINDINGS: The lungs are clear and expanded. There is no demonstrated pleural abnormality. Normal size heart. Normal mediastinum and neyda. Normal visualized pulmonary arteries. Normal visualized aortic arch and descending thoracic aorta. Normal visualized thoracic spine. Normal visualized ribs, clavicles, and shoulders. There is no demonstrated abnormality of the visualized soft tissue structures of the upper abdomen. RAD/Chest 1 View (Portable) IMPRESSION: No demonstrated acute cardiopulmonary process. Electronically Signed: Rui Ward MD at 14:27 EDT Tel , Service support , CC: Jaun Singh MD; Bill Lou MD 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: Signed EMERGENCY REPORT Observed: 09/21/2017 Status: F Source: [facility] 9:00 AM [facility] EMERGENCY ROOM REPORT NAME ACCOUNT SEX AGE ADMIT DISCHARGE PT MED. RECORD# NUMBER DATE DATE TYPE CHRISSIE CR [id number] F 37 09/18/17 09/19/17 3 L [id number] ROOM: ER DATE OF : 1980 DICTATING PHYSICIAN: Guilherme Montejo ADDENDUM I did discuss the case with Dr. Jessica. He felt the patient could be sent home since she has had a cardiac workup. I did speak with Dr. Thacker at [facility], where the patient has had her workup. He looked it up for me. He said that she has had a stress echo and heart catheterization. Most of this cardiac workup was done in 2017 and all came back within normal limits. He states that they have seen her quite a few times in the past and he really did not feel that she needed to be admitted again for any further cardiac workup since she has pretty much had it all done, as long as her blood work here was okay. I did explain to him that I have two sets of troponins here that have been negative and the patient clinically looks good. We will treat her urinary tract infection, because I do finally have a urine back and it showed 6 to 10 white cells and 2+ bacteria. We will treat her for urinary tract infection, but let her go home. She can follow up with her primary care physician Dr. Lou in 2 to 3 days for reevaluation. I did give the patient Catapres 0.1 mg p.o. for her blood pressure. She has at times been running heart rate that is a little slow, so I did not feel comfortable giving her a beta andrews at this point. She is to follow up with Dr. Lou. Dictated By: Guilherme Montejo DO 09/18/17 23:43 JOB #: [id number] Transcribed By: denny 09/19/17 19:13 Electronically signed by: E-Sign: Dr. Guilherme Montejo D.O. 09/21/17 08:59 Page 1 of 1 [facility] Report EMERGENCY REPORT Observed: 09/21/2017 Status: F Source: [facility] 8:59 AM [facility] EMERGENCY ROOM REPORT NAME ACCOUNT SEX AGE ADMIT DISCHARGE PT MED. RECORD# NUMBER DATE DATE TYPE CHRISSIE CR [id number] F 37 09/18/17 09/19/17 3 L [id number] ROOM: ER DATE OF : 1980 DICTATING PHYSICIAN: Guilherme Montejo HISTORY OF PRESENT ILLNESS: This is a 37-year-old white female complaining of some midsternal chest pain that started around 5:30 p.m. tonight. She rates the pain as an 8 on a severity scale of 1-10. She states that it is getting worse. It also hurts worse when she takes in a deep breath. She does admit to some associated shortness of breath. She states her pulse has been running in the 40-50 range today. They took her blood sugar in the squad, and it was 55, and she is not a diabetic. She was given 4 baby aspirin and 1 nitroglycerin in the squad. The nitroglycerin did not help her pain, and she states it usually does not. She has had this chest pain before. She did have a stress test 1 to 2 years ago. Her last echocardiogram was done at [facility] about 1 to 2 years ago, and it did show that her valves were leaking. She states the last time she was hospitalized at [facility] her heart rate was slow. The patient also states she started coughing, and her temperature usually runs 96-97. She can take morphine for pain. Her last heart catheterization she thinks was about 2 years ago. It was done at [place] by Dr. Harris. She denies any nausea, vomiting or diaphoresis. PAST MEDICAL HISTORY: Hypertension. She takes carvedilol for this. She did have open heart surgery where she had a bicuspid aortic valve repaired in [address] Lopes at [facility]. She also had an ASD repair at that same time. She has mitral valve prolapse. 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 Last year at this time of year she was in the hospital with double pneumonia, and she states she was on a ventilator for 8 days. She broke her left hand this week, and she is presently wearing a Velcro splint. She used to see Dr. Daigle for Cardiology, but since he has she does not have a wire walker. She states that Dr. Daigle had told her to follow up at the [facility]. Her primary care physician is Dr. Bill Lou at the [facility] in [place]. PAST SURGICAL HISTORY: Past surgeries include a . ALLERGIES: She is allergic to erythromycin, amoxicillin, Celebrex, Cymbalta, Tylenol, Mobic, and Benadryl. SOCIAL HISTORY: The patient is a smoker, she says of 3 to 4 cigarettes a day. She lives at home with her family. REVIEW OF SYSTEMS: The patient denies any nausea, vomiting, or diaphoresis. She does admit to chest pain and shortness of breath. She does admit to cough. She denies any sputum or wheezing, abdominal pain, nausea, vomiting, diarrhea, constipation, melena, hematochezia, headache, numbness, unsteady gait, weakness, neck or back pain, joint pain, skin rash or swelling, hives, hay fever, or swollen glands. Further review of systems is negative. PHYSICAL EXAMINATION: The patient is alert and oriented x3. She presently appears in no Page 1 of 2 CHRISSIE CR Emergency Room Report acute distress. She is pleasant and cooperative. HEENT: Head appears atraumatic. Pupils are equal and reactive to light. Red reflexes are intact bilaterally. Extraocular muscles are intact. No conjunctival injection. No scleral icterus or lid edema. Nose exhibits no rhinorrhea or epistaxis. Mouth: Mucous membranes are moist. No pharyngeal erythema. Uvula is midline and elevates. Neck is supple. Trachea is midline. No JVD or lymphadenopathy. No posterior cervical tenderness. No nuchal rigidity. Lungs are clear to auscultation in all lung dang. No adventitious sounds are noted. CV: Heart rate and rhythm are regular with a grade 3/6 systolic ejection murmur noted. Abdomen is soft and nontender with normoactive bowel sounds x4 quadrants. No guarding or rigidity. No rebound. No palpable abdominal masses. No hepatosplenomegaly. Back exhibits no midline or paraspinal region tenderness. No increased paraspinal muscle rigidity. Negative Dean's sign. Extremities: No edema or cyanosis. Peripheral pulses are intact. No motor or sensory deficits are noted. Hand audit lead are strong and symmetric. Skin is warm and dry. No diaphoresis or rash. Neurologic examination shows the patient to be alert and oriented x4. No motor or sensory deficits are noted. Normal speech. The patient is pleasant and cooperative with a normal affect. DIAGNOSTIC DATA: EKG at 1912 hours shows a normal sinus rhythm at [address]-segment changes are noted. White count was 8.7, hemoglobin 13, hematocrit 37.7, and platelet count 293,000. PT was 11.4, PTT 22.5, and INR 1. D-dimer was normal at 222. BNP is 72, which is normal. Troponin was normal at 0.01. Sodium was 134, potassium 4.7, chloride 104, CO2 of 20.4, BUN 19, creatinine 1, and glucose 75. Liver functions all came back within normal limits. Anion gap is 14. Chest x-ray shows no acute disease. Some cardiomegaly was noted, but no significant change from previous chest x-rays. EMERGENCY DEPARTMENT COURSE AND TREATMENT: I did give the patient nitroglycerin here. It really did not influence her chest pain at all, so I am going to give her some morphine here IV, and we will see if that helps. Presently, I will speak with the hospitalist regarding this patient and see if we can keep her here for further cardiac evaluation or if we will have to transfer her. I spoke with her about this. She does not have any strong feelings one way or the other so at this point we will start with the hospitalist and then go from there, but I do anticipate admission somewhere. DIAGNOSIS: Chest pain. Dictated By: Guilherme Montejo DO 09/18/17 21:22 JOB #: [id number] Transcribed By: jayson 09/19/17 18:07 Electronically signed by: E-Sign: Dr. Guilherme Montejo D.O. 09/21/17 08:59 Page 2 of 2 CHRISSIE CR Emergency Room Report EMERGENCY DEPARTMENT Observed: 09/21/2017 Status: F Source: [place] SUMMARY 6:08 AM [facility] REPOSITORY [facility] Medical Records Department [address] [facility] [place] [address] Emergency Department Summary 09/21/17 0145 MR#: [id number] Acct: [id number] Name: CHRISSIE CR Rep #: [id number] : 1980 37 From: Arcadio Yanes MD PCP: Bill Lou MD Status: DEP ER - ER Visit Summary Date of Service: 09/21/17 Chief Complaint: Chest pain History of Present Illness: The patient is a 37 F presenting for evaluation secondary chest pain. Patient states that she had a relatively sudden onset of chest pain today at 1800. This occurred while she was at rest. She states that since then it is been a continuous sharp chest pain located over the left side of her chest. Patient states that it is improved by sitting upright and worsened by lying flat. It has been associated with dyspnea and lightheadedness. Patient states that she had a low-grade temperature 99.2 a couple days ago, but has not had any other infectious signs or symptoms. Patient has a prior history of aortic valve repair as well as DVT and PE there were a result of a knee replacement surgery. She is not currently on any sort of anticoagulants. Patient was seen in the emergency department earlier today for this and had a workup including chest x-ray lab work and EKG and was discharged. Patient states that she simply feels that she is not getting any better so she presented back to the emergency department for repeat evaluation. Physical Examination: Vital signs are within normal limits, patient is afebrile. General: Patient is well-nourished well-developed and in no acute distress. Head: Normocephalic, atraumatic Eyes: Pupils equal round and reactive bilaterally, extra occular motion intact bialterally ENT: Moist mucous membranes Neck: Supple, no lymphadenopathy, no JVD, no meningismus CVS: Heart regular rate and rhythm, 2 out of 6 systolic murmur noted, rubs or gallops, radial pulses 2+ bilaterally Resp: Respirations nondistressed, lung sounds clear bilaterally, left anterior chest tenderness Abdomen: Soft, nontender, nondistended, no palpable masses, normal bowel sounds Back: Nontender Extremities: Nontender, atraumatic, active full range of motion, no peripheral edema Skin: warm, no rashes, no petechia Neuro: Alert and oriented x 4, CN 2-12 intact, no lateralizing neurological defecits Psyc: Normal affect Test Results: EKG shows a sinus rhythm of 75 with nonspecific T changes that are consistent with prior EKGs and unchanged. Troponin negative, d-dimer negative, ESR negative Emergency Department Course and Treatment: Patient presented secondary chest pain. She has had continuous chest pain over the course of the last 6 hours. She had a negative workup before, she was complaining of some positional component to this so there was at least some concern for the possibility of pericarditis and ESR was obtained and was negative, she also complained of a pleuritic component d-dimer was obtained and was found to be negative. Patient does have an underlying history of tobacco use, hypertension, and had some nonspecific EKG changes so her heart score is 2 making her low risk. GABRIELA risk score is 1 for aspirin use. I do not believe that she requires admission at this point. Her pain is reproducible making it likely more a musculoskeletal etiology such as costochondritis. At this point patient will be discharged with continued conservative management. She will follow-up with primary care. Disposition: Discharge Impression: 1. Atypical chest pain, likely costochondritis This note was generated with NeuroPace dictation software. It may contain incorrect words, spelling, and punctuation that were not noted in review of the chart prior to signing ED Disposition - Plan for ED Patient: Disposition: Home or Assisted Living Chief Complaint: Chest Pain Diagnosis: Costochondritis, acute Instructions: ED Chest Wall Pain [facility] Referrals: Bill Lou MD [Primary Care Provider] - 3-5 Days What to do if you have Problems For any increased pain, shortness of breath, bleeding, nausea or vomiting, chest pain, or any unexpected problems, contact your Primary Care Provider. Call [facility] ([phone]) or report to the closest Emergency Room. Call 911 if necessary. 09/21/17 0608 <Electronically signed by Arcadio Yanes MD> Date Arcadio Yanes MD Cosigner Signature (If Indicated): Date CC: Bill Lou MD ERYTHROCYTE SED RATE Collected: 09/21/2017 Status: F Source: [place] 12:40 AM [facility] REPOSITORY TYPE CODE TESTS RESULT OUT OF RANGE REFERENCE UNITS LAB L102.0000 0-20 mm/hr Normal SED RATE 4 Performed By: #### L101.9900, L300.8000, L501.4010 #### [facility] [address] [place], [place], [id number] D-DIMER QUANTITATIVE Collected: 09/21/2017 Status: F Source: [place] (DVT/PE) 12:40 AM [facility] REPOSITORY TYPE CODE TESTS RESULT OUT OF RANGE REFERENCE UNITS LAB L300.8000 0.27-0.49 FEU/ug/m Normal D-DIMER 0.45 QUANT Result Comment: NORMAL D-Dimer level (<0.50) indicates no DVT or PE. Performed By: #### L101.9900, L300.8000, L501.4010 #### [facility] [address] [place], [place], [address] TROPONIN-I Collected: 09/21/2017 Status: F Source: [place] 12:40 AM [facility] REPOSITORY Order Comment: Has pt arrived? Y 'TROP' Serial specimen #1, #2, #3, or #4: 1 TYPE CODE TESTS RESULT OUT OF RANGE REFERENCE UNITS LAB L501.4010 <0.06 ng/mL Normal < 0.02 TROPONIN-I Result Comment: TROPONIN-I EXPECTED VALUES <0.05 NEGATIVE 0.06 - 0.59 AT RISK OF [place] > OR = 0.60 SUGGEST WI Performed By: #### L101.9900, L300.8000, L501.4010 #### [facility] [address] [place], [address] EMERGENCY DEPARTMENT Observed: 09/20/2017 Status: F Source: [place] SUMMARY 9:14 PM [facility] REPOSITORY [facility] Medical Records Department [address] [place] [address] Emergency Department Summary 09/20/17 2108 MR#: [id number] Acct: [id number] Name: CHRISSIE CR Rep #: [id number] : 1980 37 From: Topher Colon MD PCP: Bill Lou MD Status: REG ER - ER Visit Summary Date of Service: 09/20/17 Chief Complaint: Pain bottom of my heart History of Present Illness: The patient is a 37 F [place] with a palpitation squeezing discomfort bottom of her heart without radiation or associated symptoms. This occurred at rest 1 hour prior to presentation. She does give URI symptoms of nasal congestion, runny nose, nonproductive cough. She is a smoker of one quarter pack per day. Last stress test was approximately 3 years ago and negative. She has past history of chest pain of unknown etiology as well as fibromyalgia. She also has past history significant for ASD repair and repair of her aortic valve. Patient denies any fever, chills or night sweats. She denies any ocular, visual or auditory symptoms. She denies any nausea, vomiting or diarrhea. Denies hematemesis, melena hematochezia. She denies any back pain. She denies any leg pain, swelling discoloration. There is a prior history of PE and DVT. Physical Examination: Vital signs are normal. BMI is 34.2. There was no eye contact during the history or physical examination. Head is atraumatic normocephalic. Pupils are equal round reactive. Extraocular muscles are intact. TMs are pearly white with landmarks noted. Nares patent with no drainage. Posterior pharynx without erythema or exudate. Uvula is midline. There is no dysphonia or dysphasia. Trachea is midline. There is no stridor with auscultation of the neck. Heart is regular without murmur, gallop or rub. S1 and S2 are normal. Lungs are clear to auscultation with good movement of air bilaterally. There is no reproducible chest pain or abdominal pain. There is no hepatomegaly. Bowel sounds are present normal. There is no asymmetry, swelling, discoloration, leg vein distention, palpable cords or tenderness along the distribution of the deep venous system. She is alert she is oriented. She has a restrictive affect. Test Results: EKG with pain reveals a sinus rhythm with artifact. Two-view chest x-ray reveals sternotomy wire secondary to prior cardiac surgery and evidence of a prior left rib fracture, rib 7 or 8. Troponin less than 0.02. Emergency Department Course and Treatment: To evaluation patient's symptoms EKG chest x-ray and troponin were obtained. Treatment Plan: Heart score is 0. In my professional medical opinion this does not represent cardiac ischemic pain. Since this is not pleuritic and she denies any shortness of breath it is my opinion that this does not represent a pulmonary embolus. Disposition: Discharge with instructions to follow-up with PCP Dr. Beltran Impression: Chest pain of unknown etiology History of fibromyalgia History of PE and DVT History of prior chest pain of unknown etiology History of personality disorder History of depression History of seizure disorder This note was generated with NeuroPace dictation software. It may contain incorrect words, spelling, and punctuation that were not noted in review of the chart prior to signing ED Disposition - Plan for ED Patient: Disposition: Home or Assisted Living Chief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 to infectious organism, unspecified laterality, unspecified part of lung - ICD9: 136.9, 484.8, ICD10: J18.9 - CEFUROXIME AXETIL 500 MG TABLET - DOXYCYCLINE MONOHYDRATE 100 MG CAPSULE - CODEINE 10 MG-GUAIFENESIN 100 MG/5 ML ORAL LIQUID- O[facility] website checked and validated. All prescriptions have been APPROPRIATELY filled. No suspicious activity was identified.- 06/16/2017 by Angella Ferrer CNP - f/u with PCP if not improving. Angella Ferrer CNP CNOV Observed: 06/16/2017 Status: COMPLETED Source: [place] 3:40 PM [facility] REPOSITORY Office Visit (FAMPWS) CHRISSIE CR ([id number]) 1980 F [facility] Date Time Provider Department 06/16/17 3:40 PM ANGELLA FERRER (FILIBERTO) FAMPWS During your visit today, we recorded the following information about you: Temperature Pulse Respiration Blood pressure 97.3 degrees 76/minute 16/minute 114/72 Weight 81.2 kg Angella Ferrer CNP, CNP 06/16/2017 4:31 PM Signed This note was created using [employer] Solar[employer]. Subjective Patient is a 36 year old female presenting with respiratory complaint comments. The history is provided by the patient. No speech language pathologist assistant was used. URI She complains of chest tightness, cough, sputum production and wheezing. There is no hemoptysis or shortness of breath. Chronicity: 3 weeks. The problem occurs constantly. The problem has been gradually worsening. The cough is productive of sputum. Associated symptoms include a fever, malaise/fatigue, myalgias and sweats. Seen in ER x3 for the same. Dx with PNA at [facility].by CT. Treated with zpak, prednisone, JALEEL every 4 hours, phenergan DM. Review of Systems Constitutional: Positive for fever and malaise/fatigue. Respiratory: Positive for cough, sputum production and wheezing. Negative for hemoptysis and shortness of breath. Musculoskeletal: Positive for myalgias. Objective BP 114/72 Pulse 76 Temp 36.3 ?C (97.3 ?F) Resp 16 Wt 81.2 kg (179 lb) SpO2 94% BMI 30.73 kg/m2 Physical Exam Constitutional: She appears well-developed and well-nourished. HENT: Head: Normocephalic and atraumatic. Right Ear: External ear normal. Left Ear: External ear normal. Nose: Nose normal. Mouth/Throat: Oropharynx is clear and moist. No oropharyngeal exudate. Eyes: Conjunctivae are normal. Neck: Normal range of motion. Neck supple. Cardiovascular: Normal rate, regular rhythm and normal heart sounds. No murmur heard. Pulmonary/Chest: Effort normal. No respiratory distress. She has decreased breath sounds. She has no wheezes. harsh bronchospasmic cough Lymphadenopathy: Head (right side): No submental, no submandibular, no tonsillar, no preauricular and no posterior auricular adenopathy present. Head (left side): No submental, no submandibular, no tonsillar, no preauricular and no posterior auricular adenopathy present. She has no cervical adenopathy. Skin: Skin is warm and dry. No rash noted. ASSESSMENT/PLAN: 1. Pneumonia due to infectious organism, unspecified laterality, unspecified part of lung - ICD9: 136.9, 484.8, ICD10: J18.9 - CEFUROXIME AXETIL 500 MG TABLET - DOXYCYCLINE MONOHYDRATE 100 MG CAPSULE - CODEINE 10 MG-GUAIFENESIN 100 MG/5 ML ORAL LIQUID- [facility] website checked and validated. All prescriptions have been APPROPRIATELY filled. No suspicious activity was identified.- 06/16/2017 by Angella Ferrer CNP - f/u with PCP if not improving. Angella Ferrer CNP Referring Provider: SELF [[id number]] Allergies As of Date: 06/16/2017 Noted Allergy Reaction ERYTHROMYCIN 09/26/2005 11 - Vomiting AMITRIPTYLINE 05/29/2015 14 - Other: See Comments Comments: sweating AMOXICILLIN 12/02/2000 2 - Rash Comments: REACTION WHEN SHE WAS A CHILD BENADRYL (DIPHENHYDRAMINE HCL) 12/14/2013 14 - Other: See Comments Comments: Muscle spasms CYMBALTA (DULOXETINE) 04/11/2014 14 - Other: See Comments Comments: Worsened depression LEVAQUIN (LEVOFLOXACIN) 04/16/2016 4 - Hives Comments: bilsters over entire body MELOXICAM 10/16/2012 5 - Intolerance Comments: Caused pt to have restless legs and arms SAVELLA (MILNACIPRAN) 05/29/2015 14 - Other: See Comments Comments: Elevated BP, ? rhabdomyolysis TYLENOL (ACETAMINOPHEN) 09/30/2012 8 - GI Upset Date Reviewed: 06/16/2017 Reviewed by: Angella Elizondo (Filiberto) FILIBERTO Ferrer - Fully Assessed Primary Visit Diagnosis:Pneumonia due to infectious organism, unspecified laterality, unspecified part of lung [J18.9] Order(s):cefUROXime (CEFTIN) 500 mg tabletTake 1 tablet by mouth twice daily for 10 days.Disp: 20 tabletRfl: 0 doxycycline monohydrate (MONODOX) 100 mg capsuleTake 1 capsule by mouth twice daily for 10 days.Disp: 20 capsuleRfl: 0 codeine-guaiFENesin (GUAIFENESIN AC) 10-100 mg/5 mL syrupTake 5 mL by mouth three times daily as needed for Cough for up to 7 days.Disp: 105 mLRfl: 0 Prescriptions as of 06/16/2017 Sig: TIZANIDINE 4 MG TABLET Take 1 tablet by mouth every * ALBUTEROL SULFATE CONCENTRATE* Inhale 0.5 mL as instructed o* NAPROXEN 250 MG TABLET Take 250 mg by mouth three ti* GABAPENTIN 400 MG CAPSULE Take 1 capsule by mouth four * MEDROXYPROGESTERONE 150 MG/ML* Inject 1 mL intramuscularly e* MONTELUKAST 10 MG TABLET Take 1 tablet by mouth daily * FERROUS GLUCONATE 324 MG (36 * Take 1 tablet by mouth twice * FAMOTIDINE 20 MG TABLET Take 1 tablet by mouth twice * ALBUTEROL SULFATE 2.5 MG/3 ML* Use 3 mL via nebulizer every * COMPOUNDED PRESCRIPTION Nebulizer TRAZODONE 150 MG TABLET Take 1 tablet by mouth daily * LEVETIRACETAM 750 MG TABLET Take 2 tablets by mouth twice* CLONAZEPAM 0.5 MG TABLET Take 0.5 mg by mouth at bedti* ALBUTEROL SULFATE HFA 90 MCG/* Inhale 2 Puffs as instructed * COMPOUNDED PRESCRIPTION BLOOD PRESSURE CUFF FOR HOME * CEFUROXIME AXETIL 500 MG TABL* Take 1 tablet by mouth twice * DOXYCYCLINE MONOHYDRATE 100 M* Take 1 capsule by mouth twice* CODEINE 10 MG-GUAIFENESIN 100* Take 5 mL by mouth three time* Problem List As Of Date 06/16/2017 Noted Resolved 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 disorder [I35.9] Priority: A SUPERVIS OTHER NORMAL PREG [Z34.80] INVALID FOR*02/10/2008 THREATEN ABORT-ANTEPART [O20.0] INVALID FOR*02/10/2008 Migraine, unspecified, without mention of intra*INVALID FOR* Priority: A 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 DDD (degenerative disc disease), lumbar [M51.36]INVALID FOR* Priority: D More... 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 Pulmonary emboli (HCC) [I26.99] INVALID FOR* More... Lacunar infarct, acute (HCC) [I63.9] INVALID FOR* More... 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 DOXYCYCLINE MONOHYDRATE 100 MG CAPSU* 20 c* 0 06/16/2017 06/26/2017 Route: ORAL Sig: Take 1 capsule by mouth twice daily for 10 days. CODEINE 10 MG-GUAIFENESIN 100 MG/5 M* 105 * 0 06/16/2017 06/23/2017 Class: Print RX Route: ORAL Sig: Take 5 mL by mouth three times daily as needed for Cough for up to 7 days. Medications Discontinued During This Encounter Promethazine-DM (PHENERGAN-DM) 6.25-* 120 * 0 06/09/2017 06/16/2017 Route: ORAL Sig: Take 5 mL by mouth four times daily as needed. Disc: Reason for discontinue is not on file. Encounter Status:Closed by ANGELLA FERRER CNP on 06/16/17 EMERGENCY DEPARTMENT Observed: 06/14/2017 Status: F Source: [place] SUMMARY 12:22 AM [facility] REPOSITORY [facility] Medical Records Department [address] [place] [address] Emergency Department Summary 06/13/17 1854 MR#: [id number] Acct: [id number] Name: CHRISSIE CR Rep #: [id number] : 1980 36 From: Neil Casiano MD PCP: Bill Lou MD Status: DEP ER - ER Visit Summary Date of Service: 06/13/17 Chief Complaint: Cough History of Present Illness: The patient is a [address] Lou. Reports she has a cough began approximately 2 weeks ago. It is nonproductive. She has had subjective fever and chills. She reports that she has mild shortness of breath at rest and moderate shortness of breath with movement. She has an inhaler and nebulizer that she is using. She began steroids approximately 1 week ago. She began a Z-Gabriel approximately 5 days ago. Physical Examination: Vitals: Stable. Afebrile. General: Well-nourished and well-developed. Head: Normocephalic atraumatic. Neck: Supple, no lymphadenopathy. No JVD. Nontender. Cardiovascular: Regular rate and rhythm. No murmurs. Respiratory: No respiratory distress. Clear to auscultation bilaterally. Abdominal: Soft, nontender, nondistended, normal bowel sounds. No guarding, rebound, or peritoneal signs. Back: Nontender. Extremities: Nontender, no edema. Skin: Normal color, no rash. Neurologic: Alert and oriented 3. Cranial nerves II through XII are intact. Normal strength and sensation. Psych: Normal affect. Test Results: CBC is more for a white count of 11.2 (however she is on steroids) hematocrit of 36.4, 7 neutrophils 88, monocytes of 7. Chem-7 is more for chloride 108, BUN 21, creatinine 1.05, glucose 162. Chest x-ray shows no acute disease. Emergency Department Course and Treatment: She was treated with Tylenol. She has no wheezing is resting comfortably. She is not hypoxic and is on appropriate home medications. Had a CTA of the chest 7 days ago that showed no PE. Showed increased markings in the lungs are viral versus interstitial pneumonia. Also had a heart catheterization in January that showed normal coronary arteries. Treatment Plan: She will be discharged symptomatic care. Instructed to continue her steroids and finish her Zithromax. Use her albuterol healer and nebulizer. Push fluids. Tylenol and/or ibuprofen for pain. Follow-up her primary care physician 1 week if not improving. Disposition: To home in improved and stable condition. Impression: 1. URI. This note was generated with NeuroPace dictation software. It may contain incorrect words, spelling, and punctuation that were not noted in review of the chart prior to signing ED Disposition - Plan for ED Patient: Chief Complaint: Shortness of Breath Instructions: ED Upper Resp Infec Abx Tx Referrals: Bill Lou MD [Primary Care Provider] - 1 Week if not improving What to do if you have Problems For any increased pain, shortness of breath, bleeding, nausea or vomiting, chest pain, or any unexpected problems, contact your Primary Care Provider. Call [facility] ([phone]) or report to the closest Emergency Room. Call 911 if necessary. 06/14/17 0022 <Electronically signed by Neil Casiano MD> Date Neil Casiano MD Cosigner Signature (If Indicated): Date CC: Bill Lou MD CBC W/DIFF, AUTOMATED Collected: 06/13/2017 Status: F Source: [place] 6:00 PM [facility] REPOSITORY TYPE CODE TESTS RESULT OUT OF RANGE REFERENCE UNITS LAB L100.1000 4.4-11.0 K/mm3 High WBC 11.2 LAB L100.1200 4.2-5.4 M/mm3 Low RBC 4.02 LAB L100.1300 12.0-15.0 g/dl Normal HGB 12.2 LAB L100.1400 37-47 % Low HCT 36.4 LAB L100.1500 81-99 fL Normal MCV 90.5 LAB L100.1600 27.0-32.0 pg Normal MCH 30.3 LAB L100.1700 32-36 g/gl Normal MCHC 33.5 LAB L100.1810 11.6-14.6 % Normal RDW CV 12.7 LAB L100.1820 35.1-43.9 fl Normal RDW SD 41.0 LAB L100.1900 150-450 K/mm3 Normal PLT 296 LAB L100.2000 6.2-12.0 fl Normal MPV 10.5 LAB L100.2100 47-70 % High NEUT% 88.2 LAB L100.2200 19-41 % Low LY% 6.7 LAB L100.2300 0-10 % Normal MONO% 4.6 LAB L100.2400 0-5 % Normal EO% 0.1 LAB L100.2500 0-1 % Normal BASO% 0.2 LAB L100.2550 0.0-0.9 % Normal IM GRAN % 0.200 Result Comment: IG% - Immature Granulocytes (promyelocytes, myelocytes and metamyelocytes) > 1% indicates that a LEFT SHIFT is Present. LAB L100.2620 2.0-7.7 X10 3/uL High Absolute Neut 9.9 LAB L100.2720 0.83-4.51 X10 3/ul Low Absolute Lymph 0.75 Performed By: #### L100.0100 #### [facility] [address] [place], [place], [id number] BASIC METABOLIC Collected: 06/13/2017 Status: F Source: [place] PROFILE (BMP) 6:00 PM [facility] REPOSITORY TYPE CODE TESTS RESULT OUT OF RANGE REFERENCE UNITS LAB L501.0100 70-110 mg/dL High GLU 162 Result Comment: Fasting Glucose result greater than or equal to 126 mg/dL suggests DIABETES MELLITUS per A.D.A. criteria. LAB L501.1000 7-18 mg/dL High BUN 21 LAB L501.1100 0.55-1.02 mg/dL High CREAT,SERUM 1.05 Result Comment: The validity of the calculated GFR AND GFRAA in patients over 70 years has not been determined. Clinical correlation is essential. LAB L501.1110 >60 mL/min Normal EST GFR 62 Result Comment: Non- GFR Calc LAB L501.1115 >60 mL/min Normal EST GFR - AA 75 Result Comment: GFR Calc LAB L501.1255 ml/min Normal Estimated CRCL 60.09 LAB L501.1300 10-20 RATIO Normal BUN/CRE 20.0 LAB L501.2200 8.5-10 mg/dL Normal .1 CA 8.6 LAB L501.5300 136-14 mmol/L Normal 5 NA 141 LAB L501.5600 3.5-5. mmol/L Normal 1 K 4.2 LAB L501.5900 98-107 mmol/L High CL 108 LAB L501.6100 21.0-3 mmol/L Normal 2.0 CO2 23.0 LAB L501.6200 5-15 Normal GAP 10 Performed By: #### L500.2500 #### [facility] [address] [facility] [place], [place], [id number] CHEST PA AND LATERAL Observed: 06/13/2017 Status: F Source: [place] 5:30 PM [facility] REPOSITORY [facility] Imaging Services [address] [place] [address] Chest PA and Lateral MR#: [id number] Acct: [id number] Name: CHRISSIE CR Mikhail Rep #: [id number] : 1980 F 36 From: Ian Son DO PCP: Bill Lou MD Status: REG ER Study: Chest PA and Lateral Date of Exam: 06/13/17 Exam# [id number] Ordering Dr: Neil Casiano MD STUDY: X-RAY CHEST REASON FOR EXAM: Female, 36 years old. Cough TECHNIQUE: PA and lateral views of the chest. COMPARISON: 05/28/2017 FINDINGS: The lungs are clear and expanded. There is no demonstrated pleural abnormality. Sternal cerclage wires are present from a prior sternotomy. Heart size is within normal limits Normal mediastinum and neyda. Normal visualized pulmonary arteries. Normal visualized aortic arch and descending thoracic aorta. Normal visualized thoracic spine. Normal visualized ribs, clavicles, and shoulders. There is no demonstrated abnormality of the visualized soft tissue structures of the upper abdomen. RAD/Chest PA and Lateral IMPRESSION: No acute findings Electronically Signed: Ian Son DO at 18:47 EST Tel , Service support , CC: Neil Casiano MD; Bill Lou MD 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: Signed 12 LEAD ELECTROCARDIOGRAM Observed: 06/12/2017 Status: F Source: [place] 11:39 AM [facility] REPOSITORY [facility] Cardiovascular Services [address] [place] [id number] 12 Lead EKG 06/09/17 1313 MR#: [id number] Acct: [id number] Name: CHRISSIE CR Rep #: [id number] : 1980 36 From: Schuyler Langston MD Attending Dr: Status: DEP ER Ordering Dr: Cecilio Young MD Date: 06/09/17 Location: ED Sex: F C Admitted: Test Reason : SOB Blood Pressure : / mmHG Vent. Rate : 068 BPM Atrial Rate : 068 BPM P-R Int : 132 ms QRS Dur : 076 ms QT Int : 436 ms P-R-T Axes : 038 017 062 degrees QTc Int : 463 ms Normal sinus rhythm Normal ECG Confirmed by SCHUYLER LANGSTON ([id number]), book or script editor OANH AGARWAL ([id number]) on 06/12/2017 11:39:28 AM Referred By: ISAAC Confirmed By:SCHUYLER LANGSTON 06/12/17 1139 Date Schuyler Langston MD CC: Bill Lou MD Signed 12 LEAD ELECTROCARDIOGRAM Observed: 06/09/2017 Status: F Source: [place] 2:00 PM [facility] REPOSITORY [facility] Cardiovascular Services [address] [place] [address] 12 Lead EKG 06/06/17 1238 MR#: [id number] Acct: [id number] Name: CHRISSIE CR Mikhail Rep #: [id number] : 1980 36 From: Ross Harris MD Attending Dr: Status: DEP ER Ordering Dr: Dayana Henderson Date: 06/06/17 Location: ED Sex: F C Admitted: Test Reason : CP Blood Pressure : / mmHG Vent. Rate : 063 BPM Atrial Rate : 063 BPM P-R Int : 100 ms QRS Dur : 082 ms QT Int : 464 ms P-R-T Axes : 009 024 066 degrees QTc Int : 474 ms Sinus rhythm with short IL Nonspecific ST abnormality Abnormal ECG Confirmed by ROSS HARRIS MD ([id number]), book or script editor OANH AGARWAL ([id number]) on 06/09/2017 2:00:16 PM Referred By: Confirmed By:ROSS HARRIS MD 06/09/17 1400 Date Ross Harris MD CC: Bill Lou MD Signed DISCHARGE INSTRUCTION Observed: 06/09/2017 Status: F Source: [place] 1:49 PM [facility] REPOSITORY [facility] Medical Records Department [address] [place] [address] Discharge Instruction 06/09/17 1347 MR#: [id number] Acct: [id number] Name: FIONA CRMagen Elizondo Rep #: [id number] : 1980 36 From: Cecilio Young MD PCP: Bill Lou MD Status: REG ER ED Disposition - Plan for ED Patient: Disposition: Home or Assisted Living Chief Complaint: Shortness of Breath Instructions: ED Chest Pain Atypical Unkn Cause Prescriptions: Prednisone [Deltasone] 40 mg PO DAILY #10 tab Diflunisal [Dolobid] 500 mg PO TID #21 tab Referrals: Bill Lou MD [Primary Care Provider] - What to do if you have Problems For any increased pain, shortness of breath, bleeding, nausea or vomiting, chest pain, or any unexpected problems, contact your Primary Care Provider. Call [facility] ([phone]) or report to the closest Emergency Room. Call 911 if necessary. 06/09/17 1349 <Electronically signed by Cecilio Young MD> Date Cecilio Young MD Cosigner Signature (If Indicated): Date CC: Bill Lou MD EMERGENCY DEPARTMENT Observed: 06/09/2017 Status: F Source: [place] SUMMARY 1:47 PM [facility] REPOSITORY [facility] Medical Records Department [address] [place] [address] Emergency Department Summary 06/09/17 1259 MR#: [id number] Acct: [id number] Name: CHRISSIE CR Rep #: [id number] : 1980 36 From: Cecilio Young MD PCP: Bill Lou MD Status: REG ER - ER Visit Summary Date of Service: 06/09/17 Chief Complaint: Chest pain, shortness of breath, cough History of Present Illness: The patient is a 36 F who complains of the above symptoms. She was seen here 3 days ago and had labs and a CTA of the chest. It felt that she had an interstitial prominence that could be an atypical pneumonia. She was placed on azithromycin. She is not feeling any better. She now has sharp pain in her chest is radiating to her left shoulder area. She has finished her course of steroids. She has been taking naproxen which has not helped her chest pain. She is also been taking an inhaler and aerosols at home without any relief. Physical Examination: Vital signs reviewed. HEENT exam unremarkable. Heart is regular rate and rhythm without murmurs. Lungs have slight expiratory wheezing. Chest is nontender. Abdomen is soft and nontender. Extremities reveal no edema. Skin exam normal. Neurologic exam normal. Test Results: EKG normal sinus rhythm with a rate of 68. No ST changes. Troponin normal. Emergency Department Course and Treatment: Patient was given morphine and a DuoNeb Treatment Plan: Patient has complained of pain many times in the past. She has had cardiac catheterizations which have been normal. She does have a history of a valve repair. However, her current symptoms are likely due to this pneumonia. She will continue antibiotics. I will put her on prednisone and Dolobid. She will follow-up with her PCP Disposition: Discharge Impression: Chest pain, recent pneumonia This note was generated with NeuroPace dictation software. It may contain incorrect words, spelling, and punctuation that were not noted in review of the chart prior to signing ED Disposition - Plan for ED Patient: Chief Complaint: Shortness of Breath Referrals: Bill Lou MD [Primary Care Provider] - What to do if you have Problems For any increased pain, shortness of breath, bleeding, nausea or vomiting, chest pain, or any unexpected problems, contact your Primary Care Provider. Call [facility] ([phone]) or report to the closest Emergency Room. Call 911 if necessary. 06/09/17 1347 <Electronically signed by Cecilio Young MD> Date Cecilio Young MD Cosigner Signature (If Indicated): Date CC: Bill Lou MD TROPONIN-I Collected: 06/09/2017 Status: F Source: [place] 1:08 PM [facility] REPOSITORY Order Comment: 'TROP' Serial specimen #1, #2, #3, or #4: 1 TYPE CODE TESTS RESULT OUT OF RANGE REFERENCE UNITS LAB L501.4010 <0.06 ng/mL Normal < 0.02 TROPONIN-I Result Comment: TROPONIN-I EXPECTED VALUES <0.05 NEGATIVE 0.06 - 0.59 AT RISK OF [place] > OR = 0.60 SUGGEST [place] Performed By: #### L501.4010 #### [facility] [address] [place], [address] DISCHARGE INSTRUCTION Observed: 06/06/2017 Status: F Source: [place] 3:53 PM [facility] REPOSITORY [facility] Medical Records Department [address] [place] [address] Discharge Instruction 06/06/17 1551 MR#: [id number] Acct: [id number] Name: CHRISSIE CR Rep #: [id number] : 1980 36 From: Dayana Henderson PCP: Bill Lou MD Status: REG ER ED Disposition - Plan for ED Patient: Chief Complaint: Chest Pain Instructions: ED Chest Pain Pleurisy, ED Pneumonia Adult Prescriptions: Azithromycin [Zithromax Z-Gabriel] 250 mg PO UD #1 box Referrals: Bill Lou MD [Primary Care Provider] - 2 Days What to do if you have Problems For any increased pain, shortness of breath, bleeding, nausea or vomiting, chest pain, or any unexpected problems, contact your Primary Care Provider. Call [facility] ([phone]) or report to the closest Emergency Room. Call 911 if necessary. 06/06/17 1553 <Electronically signed by Dayana Henderson > Date Dayana Henderson Cosigner Signature (If Indicated): Date CC: Bill Lou MD EMERGENCY DEPARTMENT Observed: 06/06/2017 Status: F Source: [place] SUMMARY 3:51 PM [facility] REPOSITORY [facility] Medical Records Department [address] [place] [address] Emergency Department Summary 06/06/17 1334 MR#: [id number] Acct: [id number] Name: CHRISSIE CR Rep #: [id number] : 1980 36 From: Dayana Henderson PCP: Bill Lou MD Status: REG ER - ER Visit Summary Date of Service: 06/06/17 Chief Complaint: [Chest pain] History of Present Illness: The patient is a 36 F [who presents the emergency department with chest pain. It was sudden onset. It started about 15 minutes prior to arrival. Is continuous. It is squeezing in the left paraspinal chest and left upper abdomen. She rates as a 10 out of 10. She denies any shortness of breath. She had bronchitis last week and was placed on prednisone. She was lying in bed watching TV when this started. No fevers chills or sweats. No lightheadedness or dizziness. No nausea or vomiting diaphoresis. She has a history of bicuspid aortic valve and ASD with repair and aortic valve repair fibromyalgia history of PEs.] Physical Examination: [] WN WD mild distress due to pain PERRL EOMI MMM NECK supple and nontender, no masses RRR no murmur rub or gallop, no peripheral edema, symmetric radial pulses mild tenderness to palpation in the epigastric left upper quadrant and left lower chest CTAB no respiratory distress ABDOMEN is soft and nontender, normal bowel sounds, no distension, no rebound or guarding SKIN is warm and dry no rashes Alert and Oriented x3, CN II-XII in tact, no motor or sensory deficits, gait normal No lymphadenopathy Test Results: [] Emergency Department Course and Treatment: [EKG is sinus at 63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 Number: Effective Repository Date:2017-12-25 12/01/2017 CHRISSIE L Primary CHRISSIE L Mum[facility] JOHANB: Insurance:[facility]OCUR[facility] [place] CITYE JOHNS [facility] CENTERB: [facility] OUTPATIENTPolic [id number] [facility] RT Number: 05/27 E BALDWIN Repository [address] [place] [address] [id number] [place], [place] [id number]: Date:Plan Name:X3 [id number] () 11/24/2017 CHRISSIE L Primary CHRISSIE L [place] [id number] Insurance:CARESOURCEPo JOHNSONDOB: Critical access hospital Number: [id number] [address] [id number] Repository [address]Qwj: (330) Date:2017-11-24[phone] () 5502ATTN: [place] [address]EQ: 11/24/2017 Secondary NOT GIVENUNK [place] Insurance:SELF PAY [facility] Number: Effective Repository Date:2017-11-24 11/22/2017 CHRISSIE L Primary [facility]ISSIE L [facility]: Insurance:[facility] SHAYEB: [facility] MEDICAIDPolicy Number: [id number] Repository [address] [id number] [address] [place] [address] Date:2017-11-[address] [place] [address]~LUCYGOOSE [id number] 46297Iki: (609) [email or web address] Name:[phone] : [phone], [place] () () [phone]: () [phone] 11/18/2017 CHRISSIE L Primary CHRISSIE L [place] [id number] Insurance:CAREURCPETEo SHAYEDOB: [facility] ParasitXAPT lic Number: [id number] [id number] Repository [address]Fiv: (330) Date:2017-11-18[phone] () 8730ATTN: [place] [address]WF: 11/18/2017 Secondary NOT GIVENUNK [place] Insurance:SELF PAY [facility] Number: Effective Repository Date:2017-11-18 11/12/2017 CHRISSIE L Primary CHRISSIE L [place] [id number] [facility]: [facility]icy Number: [id number] [id number] Repository [address]Obq: (330) Date:2017-11-12[phone] () 4090ATTN: [place] [address]XJ: 11/12/2017 Secondary NOT GIVENUNK [place] Insurance:SELF PAY [facility] Number: Effective Repository Date:2017-11-12 11/11/2017 CHRISSIE L Primary CHRISSIE L Zak [id number] Insurance:CARESOURCEPo SHAYEDOB: [facility] [address]T licy Number: [id number] [id number] Repository [address]Hhe: 330) Date:2017-11-11 [phone] () 2723ATTN: [place] [address]XI: 11/11/2017 Secondary NOT GIVENUNK Zak Insurance:SELF PAY [facility] Number: Effective Repository Date:2017-11-11 11/10/2017 CHRISSIE L Primary CHRISSIE L FirstHealthDOB: Insurance:MICKYREYMUNDO SHAYEB: [facility] MEDICAIDPolicy Number: [id number] Repository [address] [id number] [address] [place] [address] Date:2017-11-[address] [place] [address]~LUCYGOOSE [id number] 05005Nzx: (800) [email or web address]@[email or web address] Name:[phone] : [phone], [place] () () [phone]: () [phone] 11/03/2017 CHRISSIE L Primary CHRISSIE L [place] [id number] Insurance:CARESOURCEPo SHAYEDOB: [facility] [address] licy Number: [id number] [id number] Repository [address]Jaz: 330) Date:2017-11-03 [phone] () 8688ATTN: [place] [address]IF: 11/03/2017 Secondary NOT GIVENUNK Zak Insurance:SELF PAY [facility] Hospital Number: Effective Repository Date:2017-11-03 10/22/2017 CHRISSIE L Primary CHRISSIE L Zak [id number] Insurance:CARESOURCEPo JOHNSONDOB: [facility] licy Number: [id number] [id number] Repository [address]Vrv: (330) Date:2017-10-22[phone] () 8730ATTN: [place] [address]LJ: 10/22/2017 Secondary NOT GIVENUNK [place] Insurance:SELF PAY [facility] Number: Effective Repository Date:2017-10-22 10/19/2017 CHRISSIE L Primary CHRISSIE L Mumtaz CRDOB: Insurance:CARESOURCE SHAYEDOB: [facility] [id number] [facility] [id number] RT Number: 05/27 ADRIAN Repository [address] [place] [address] [id number] [place], [place] [id number]: Date:Plan Name:X3 [phone] () 10/09/2017 CHRISSIE L Primary CHRISSIE L [place] [id number] Insurance:CARESOURCEPo JOHNSONDOB: [facility] BEBE DRAPT licy Number: [id number] [id number] Repository [address]Tyz: (330) Date:2017-10-09 [phone] () 2272ATTN: [place] [address]MB: 10/09/2017 Secondary NOT GIVENUNK Zak Insurance:SELF PAY [facility] Number: Effective Repository Date:2017-10-09 09/30/2017 CHRISSIE L Primary CHRISSIE L [place] [id number] Insurance:CARESOURCEPo JOHNSONDOB: [facility] licy Number: [id number] [id number] Repository [address]Ebf: (330) Date:2017-09-30 [phone] () 8706ATTN: [place] [address]ML: 09/30/2017 Secondary NOT GIVENUNK [place] Insurance:SELF PAY [facility] Number: Effective Repository Date:2017-09-30 09/24/2017 CHRISSIE L Primary [facility]ISSIE L [facility]: Insurance:[facility]B: [facility] MEDICAIDPolicy Number: [id number] Repository [address] [id number] [address] [place] [address] Date:2017-09-[address] [place] [address]~LUCYGOOSE [id number] 39927Pot: (916) [email or web address] Name:[phone] : [phone]) [address] [place] [address] () () [phone]: () [phone] 09/23/2017 CHRISSIE L Primary CHRISSIE L Zak [id number] Insurance:CARESOURCEPo SeatKarmaDOB: [facility] ParasitXAPT lic Number: [id number] [id number] Repository [address]Vve: (330) Date:2017-09-23[phone] () 8730ATTN: [place] [address]LD: 09/23/2017 Secondary NOT GIVENUNK [place] Insurance:SELF PAY [facility] Number: Effective Repository Date:2017-09-23 09/20/2017 CHRISSIE L Primary CHRISSIE L [place] [id number] Insurance:[facility] CENTERURCEPo BLAINEDOB: [facility] HospitalAPT licy Number: [id number] [id number] Repository [address]Fbc: (330) Date:2017-09-20[phone] () 8758ATTN: [place] [address]YH: 09/20/2017 Secondary NOT GIVENUNK Zak Insurance:SELF PAY [facility] Number: Effective Repository Date:2017-09-20 09/20/2017 CHRISSIE L Primary CHRISSIE L Zak [id number] Insurance:CARESOURCEPo JOHNSONDOB: [facility] HospitalAPT licy Number: [id number] [id number] Repository [address]Kie: 330) Date:2017-09-20[phone] () 1930ATTN: [place] [address]DI: 09/20/2017 Secondary NOT GIVENUNK Zak Insurance:SELF PAY [facility] Number: Effective Repository Date:2017-09-20 09/18/2017 CHRISSIE L Primary Chrissie L Mumtaz Jeffery CRDOB: Insurance:[facility] DEVELOPMENTAL CENTERREYMUNDO AmbrizB: [facility] [id number] [facility] [id number] RT Number: 05/27 E BALDWIN Repository [address] [place] [address] [id number] [place], [place] [id number]: Date:Plan Name:X3 [phone] () 09/14/2017 CHRISSIE L Primary CHRISSIE L Zak [id number] Insurance:CARESOURCEPo JOHNSONDOB: [facility] HospitalAP[facility] licy Number: [id number] [id number] Repository [address]Yfr: 330) Date:2017-09-14 [phone] () 3964ATTN: [place] [address]FX: 09/14/2017 Secondary NOT GIVENUNK Zak Insurance:SELF PAY [facility] Number: Effective Repository Date:2017-09-14 09/08/2017 CHRISSIE L Primary CHRISSIE L [place] [id number] Insurance:CARESOURCEPo JOHNSONDOB: [facility] lic Number: [id number] [id number] Repository [address]Bva: [phone] Date:2017-09-08[phone] (HP) [phone]: [place] [id number]: 09/08/2017 Secondary NOT GIVENUNK [place] Insurance:SELF PAY [facility] Number: Effective Repository Date:2017-09-08 2017 Chrissie L Primary Chrissie L [place] [id number] Insurance:CARESOURCEPo JohnsonDOB[facility] licy Number: [id number] [id number] Repository [address]Rxt: ([phone]) Date:2017P [address] [phone] (HP) [phone]: [place] [address]FX: 2017 Secondary NOT GIVENUNK [place] Insurance:SELF PAY [facility] Number: Effective Repository Date:2017 07/14/2017 Chrissie L Primary Chrissie L [place] [id number] Insurance:CARESOURCEPo JohnsonDOB: [facility] BEBE GARCIA licaamir Number: [id number] [id number] Repository [address]Jqo: ([phone]) Date:2017-07-14 [phone] (HP) [phone]: [place] [address]MC: 07/14/2017 Secondary NOT GIVENUNK [place] Insurance:SELF PAY [facility] Number: Effective Repository Date:2017-07-14 06/13/2017 Chrissie L Primary Chrissie L [place] [id number] Insurance:CARESOURCEPo JohnsonDOB: [facility] [place] lic Number: [id number], [place] [id number] Repository [address]Clg: ([phone]) Date:2017-06-13[phone] (HP) [phone]: [place] [address]MU: 06/13/2017 Secondary NOT GIVENUNK [place] Insurance:SELF PAY [facility]: Effective Repository Date:2017-06-13 06/09/2017 Chrissie L Primary Chrissie L [place] [id number] Insurance:CARESOURCEPo JohnsonDOB: [facility] [place] licy Number: [id number], [place] [id number] Repository [address]Zjg: ([phone]) Date:2017-06-09[phone] (HP) [phone]: [place] [address]WZ: 06/09/2017 Secondary NOT GIVENUNK [place] Insurance:SELF PAY [facility] Number: Effective Repository Date:2017-06-09 06/06/2017 Chrissie L Primary Chrissie L [place] [id number] Insurance:CARESOURCEPo JohnsonDOB: [facility] [place] licy Number: [id number], [place] [id number] Repository [address]Fet: ([phone]) Date:2017-06-06 [phone] (HP) [phone]: [place] [address]VB: 06/06/2017 Secondary NOT GIVENUNK [place] Insurance:SELF PAY [facility] Number: Effective Repository Date:2017-06-06 05/28/2017 Chrissie L Primary Chrissie L [place] [id number] Insurance:CARESOURCEPo JohnsonDOB: [facility] [place] licy Number: [id number], [place] [id number] Repository [address]Myy: ([phone]) Date:2017-05-28[phone] (HP) [phone]: [place] [address]HX: 05/28/2017 Secondary NOT GIVENUNK [place] Insurance:SELF PAY [facility] Number: Effective Repository Date:2017-05-28
== END 2018-04-25 20:39 | disposition home or self-care (01) ==
PROVIDERS: Emergency Provider Emergency Medicine; Family Provider Family Medicine; PCP Family Medicine
DX: R40.4 Transient alteration of awareness (principal); I34.1 Nonrheumatic mitral (valve) prolapse; M79.7 Fibromyalgia; Z87.74 Personal history of (corrected) congenital malformations of heart and circulatory system; Z85.831 Personal history of malignant neoplasm of soft tissue; Z96.653 Presence of artificial knee joint, bilateral; Z79.899 Other long term (current) drug therapy; Z72.0 Tobacco use
CPT/HCPCS: 36415; 80048; 82962; 85025; 93005; 99285; J7030; A4216

== ENCOUNTER 2018-05-12 14:32 | Emergency (ER) | payer MEDICAID, SELFPAY ==
[2018-05-12 14:35] VITALS: BP 149/76; PULSE 67; RESP 16; TEMP 36.7; O2SAT 100; BMI 37.8
--- NOTE | 2018-05-12 15:09 | RAD_ITS ---
STUDY: X-RAY - LUMBAR SPINE REASON FOR EXAM: Female, 37 years old. Lower back pain following a fall. TECHNIQUE: 3 view(s) of the lumbar spine were obtained. COMPARISON: Comparison is made with prior study dated April 27, 2017. FINDINGS: Normal lumbar lordosis. There is no substantial scoliosis. There is a normal alignment of the vertebrae. Normal vertebral bodies and endplates. Normal disc space heights. Large amount of fecal material is seen in the colon. RAD/Lumbar Spine 2 or 3 Views IMPRESSION: Normal x-ray examination of the lumbar spine. Electronically Signed: Tenzin Persaud MD at 15:44 EST Tel [phone], Service support ,
--- NOTE | 2018-05-12 15:18 | ED.DCSUM_ITS ---
- ER Visit Summary Date of Service: 05/12/18 Chief Complaint: Difficulty urinating History of Present Illness: The patient is a 37 F presents to the emergency department with urinary difficulties. Patient woke this morning and thinks that she may want herself overnight. She states she was walking today and feels like it happened again. She denies any numbness in her groin. She denies any pain down her legs. She does have history of chronic back pain, but denies any new injury. She states that she feels like she has to go and can just not make it to the bathroom. She feels like she is fully able to empty her bladder when she gets there. She is had no change in bowel habits. She denies any fevers or chills. She does not take anticoagulants. Physical Examination: Afebrile, vitals unremarkable. Well-appearing female no acute distress. Head is normocephalic, atraumatic. Pupil's equal round reactive, extraocular muscles intact. Neck supple. Heart regular rate and rhythm. Lungs clear, chest nontender. Abdomen soft, nontender, nondistended. No pulsatile mass. Patient has paraspinal tenderness in the lumbar area, but no bony tenderness. Straight leg raise is negative bilaterally. 2+ symmetric lower extremity pulses. 2+ reflexes. No clonus. No weakness of dorsiflexion, plantar flexion, or extensor hallucis longus bilaterally. Test Results: [] Emergency Department Course and Treatment: The patient states that she had an episode of urinary incontinence. Her exam is unremarkable. She has normal strength of her lower extremities. She has normal pulses. She has normal reflexes. She has no change in her perianal sensation. The patient urinated and post void residual was 13 cc. I did obtain plain films which are unremarkable. Her lumbar spine was unremarkable. It does show constipation. I do feel that this is likely contributing to her symptoms. I do not suspect that this is cauda equina or other dangerous process. In review of the patient's records, she is actually had this presentation multiple times in the past. I do not feel that emergent MRI is necessary. I am going to treat the patient with stool softeners. She will be discharged home. Treatment Plan: [] Disposition: Discharge Impression: 1. Exacerbation of chronic back pain This note was generated with [employer] software. It may contain incorrect words, spelling, and punctuation that were not noted in review of the chart prior to signing ED Disposition - Plan for ED Patient: Chief Complaint: Complaint Instructions: ED Low Back Pain Injury Referrals: Bill Dai MD [Primary Care Provider] -
[2018-05-12] MEDS: HYDROcodone Bitartrate/Apap 5/325 Tablet PO (15:24)
[2018-05-12 15:34] LABS: Mucous, Urine 0 SEEN /hpf (<or=2+); Red Blood Cells-Urine 0 SEEN /hpf (0-5); Squamous Epithelial Cells - UA 0 SEEN /hpf (5-10)
[2018-05-12 15:40] LABS: Color, Urine Yellow (Yellow); Glucose, Dipstick Normal (Normal); Ketone-Dipstick Negative (Negative); Leukocyte Esterase-Dipstick 25 /ul (Negative); Nitrite-Dipstick Negative (Negative); Occult Blood-Urine Negative /ul (Negative); Protein-Dipstick Negative (Negative); Specific Gravity, Urine 1.015 (1.002-1.030); Urine Bilirubin Dipstick Negative (Negative); Urine Clarity Clear (Clear); Urine Urobilinogen Normal (Normal)
[2018-05-12 15:54] LABS: Bacteria 1+ /hpf (None Seen); White Blood Cells 0-5 SEEN /hpf (0-5)
[2018-05-12 16:42] VITALS: BP 134/64; PULSE 60; RESP 16; O2SAT 98
--- OUTSIDE RECORDS SUMMARY | 2018-08-14 03:59 | XMS RPT_ITS ---
:1980 Author Organization OHIP Support Name Relationship Address Phone BELLSTORES Unavailable [address] + [place] [address] ERIK LOYA Unavailable [address] + [place] [address] LOYA, FORD Unavailable Unavailable + LOYA, FORD Unavailable Unavailable + LOYA, FORD Unavailable Unavailable + LOYA, LESTER Unavailable [address] + [place] [address] NOT GIVEN [place] [address] HEBER NORY Unavailable Unavailable + BELLSTORES Unavailable [address] + [place] [address] HEBER ERIK Unavailable [address] + [place] [address] LOYA, FORD Unavailable Unavailable + LOYA, FORD Unavailable Unavailable + LOYA, FORD Unavailable Unavailable + LOYA, LESTER Unavailable [address] + [place] [address] MARILYN LOYAN Unavailable [address] + [place] [address] UE Unavailable Unavailable Unavailable NOT GIVEN Unavailable [place] [address] LOYA, NORY Unavailable Unavailable + LOYA, FORD Unavailable Unavailable + LOYA, FORD Unavailable Unavailable + LOYA, FORD Unavailable Unavailable + LOYA, LESTER Unavailable [address] + [place] [address] ERIK LOYA Unavailable [address] + [place] [address] UE Unavailable Unavailable Unavailable ERIK LOYA Unavailable [address] + [place] [address] UE Unavailable Unavailable Unavailable ERIK LOYA Unavailable [address] + [place] [address] UE Unavailable Unavailable Unavailable LOYA, FORD Unavailable Unavailable + LOYA, OFRD Unavailable Unavailable + LOYA, FORD Unavailable Unavailable + LOYA, LESTER Unavailable [address] + [place] [address] LOYA, FORD Unavailable Unavailable + LOYA, FORD Unavailable Unavailable + LOYA, FORD Unavailable Unavailable + LOYA, LESTER Unavailable [address] + [place] [address] LOYA, FORD Unavailable Unavailable + LOYA, FORD Unavailable Unavailable + LOYA, FORD Unavailable Unavailable + LOYA, LESTER Unavailable [address] + [place] [address] ERIK LOYA Unavailable [address] + [place] [address] UE Unavailable Unavailable Unavailable NOT GIVEN Unavailable Unavailable Unavailable PATRICK LOYAORIS Unavailable Unavailable + ERIK LOYA Unavailable [address] + [place] [address] UE Unavailable Unavailable Unavailable LOYA, FORD Unavailable Unavailable + LOYA, FORD Unavailable Unavailable + LOYA, FORD Unavailable Unavailable + LOYA, LESTER Unavailable [address] + [place] [address] LOYA, ERIK Unavailable [address] + [place] [address] UE Unavailable Unavailable Unavailable ERIK LOYA Unavailable [address] + [place] [address] UE Unavailable Unavailable Unavailable ERIK LOYA Unavailable [address] + [place] [address] UE Unavailable Unavailable Unavailable OSEAS LOYAORES Unavailable Unavailable + LOYA FORD Unavailable Unavailable + LOYA FORD Unavailable Unavailable + LOYAPATRICKLESTER Unavailable [address] + [place] [address] ERIK LOYA Unavailable [address] + [place] [address] UE Unavailable Unavailable Unavailable ERIK LOYA Unavailable [address] + [place] [address] UE Unavailable Unavailable Unavailable NOT GIVEN Unavailable Unavailable Unavailable NORY LOYA Unavailable Unavailable + HONEYBAKED HAM Unavailable [address] + [address] [place] [address] ERIK LOYA Unavailable [address] + [place] [address] HONEYBAKED HAM Unavailable [address] + [address] [place] [address] ERIK LOYA Unavailable [address] + [place] [address] OSEAS LOYAORES Unavailable Unavailable + LOYA FORD Unavailable Unavailable + LOYA, FORD Unavailable Unavailable + LOYA LESTER Unavailable [address] + [place] [address] HONEYBAKED HAM Unavailable [address] + [address] [place] [address] ERIK LOYA Unavailable [address] + [place] [address] HONEYBAKED HAM Unavailable [address] + [address] [place] [address] ERIK LOYA Unavailable [address] + [place] [address] HONEYBAKED HAM Unavailable [address] + [address] [place] [address] ERIK LOYA Unavailable [address] + [place] [address] NOT GIVEN Unavailable Unavailable Unavailable NORY LOYA Unavailable Unavailable + HONEYBAKED HAM Unavailable [address] + [address] [place] [address] ERIK LOYA Unavailable [address] + [place] [address] HONEYBAKED HAM Unavailable [address] + [address] [place] [address] ERIK LOYA Unavailable [address] + [place] [address] S Unavailable Unavailable Unavailable ERIK LOYA Unavailable [address] + [place] [address] ERIK LOYA Unavailable [address] + [place] [address] TACOBELL Unavailable [address] + [place] [address] Care Team Providers Name Role Phone IQRA RYAN Attending Unavailable BILL LOU MD Primary Care Unavailable DALLAS AMNZO CNP Attending Unavailable BILL LOU MD Primary Care Unavailable MURPHY AGARWAL DO Attending Unavailable BILL LOU MD Primary Care Unavailable DALLAS MANZO CNP Attending Unavailable BILL LOU MD Primary Care Unavailable DALLAS MANZO CNP Attending Unavailable BILL LOU MD Primary Care Unavailable DALLAS MANZO CNP Attending Unavailable BILL LOU MD Primary Care Unavailable IRISH CORLEY Attending Unavailable BILL LOU MD Primary Care Unavailable DALLAS MANZO CNP Attending Unavailable BILL LOU MD Primary Care Unavailable YO CARRINGTON MD Admitting Unavailable YO CARRINGTON MD Attending Unavailable BILL LOU MD Primary Care Unavailable YO CARRINGTON MD Consulting Unavailable BILL LOU MD Consulting Unavailable Carmine, Bill Primary Care Unavailable Colon, Topher Attending Unavailable [place], Bill Primary Care Unavailable FRANCISCO EMANUEL Attending Unavailable [place], Bill Primary Care Unavailable Schuyler Villarreal Attending Unavailable Carmine, Bill Primary Care Unavailable Corinne Gallegos Attending Unavailable Carmine, Bill Primary Care Unavailable Colon, Topher Attending Unavailable Carmine, Bill Primary Care Unavailable Arcadio Yanes Attending Unavailable Carmine, Bill Primary Care Unavailable Jaun Singh Attending Unavailable Carmine, Bill Primary Care Unavailable Schuyler Ceballos Attending Unavailable Carmine, Bill Primary Care Unavailable Whitley Chiu Attending Unavailable Carmine, Bill Primary Care Unavailable Arcadio Shepard Attending Unavailable Carmine, Bill Primary Care Unavailable Cecilio Young Attending Unavailable Carmine, Bill Primary Care Unavailable Neil Casiano Attending Unavailable Carmine, Bill Primary Care Unavailable Colon, Topher Attending Unavailable [place], Bill Primary Care Unavailable Schuyler Villarreal Attending Unavailable Carmine, Bill Primary Care Unavailable Colon, Topher Attending Unavailable [place], Bill Primary Care Unavailable Neil Casiano Attending Unavailable [place], Bill Primary Care Unavailable Jaun Singh Attending Unavailable [place], Bill Primary Care Unavailable Lynda Wheatley Attending Unavailable Carmine, Bill Primary Care Unavailable FRANCISCO EMANUEL Attending Unavailable [place], Bill Primary Care Unavailable Schuyler Ceballos Attending Unavailable [place], Bill Primary Care Unavailable Neil Casiano Attending Unavailable Carmine, Bill Primary Care Unavailable Jaun Singh Attending Unavailable CARMINE, BILL J Attending Unavailable CHELSEA ALLEN Attending Unavailable MAURICIO GATES Referring Unavailable ANA REED (ASSISTANT ATTORNEY GENERAL) Attending Unavailable MAURICIO GATES Referring Unavailable CARMINE, BILL J Attending Unavailable Lila GOMEZ (PA-C) Attending Unavailable ROMAIN ARAGON (PT) Attending Unavailable Lila GOMEZ (PA-C) Referring Unavailable CARMINE, BILL Arnold Attending Unavailable Lila GOMEZ (JARROD-C) Referring Unavailable ROMAIN ARAGON (PT) Attending Unavailable Lila GOMEZ (PA-C) Referring Unavailable CARMINEBILL Attending Unavailable CARMINEBILL J Referring Unavailable ROMAIN ARAGON (PT) Attending Unavailable Lila GOMEZ (PA-C) Referring Unavailable GERALDINE JAUREGUI (ASSISTANT ATTORNEY GENERAL) Attending Unavailable SATYA MAY Referring Unavailable MARLENI CARLOS (PA) Attending Unavailable FRANCISCO MAE Attending Unavailable CARMINE, BILL Arnold Attending Unavailable MAYSATYA Attending Unavailable CINTHIA NICOLAS (ASSISTANT ATTORNEY GENERAL) Attending Unavailable CINTHIA NICOLAS (ASSISTANT ATTORNEY GENERAL) Referring Unavailable CARMINE, BILL Arnold Attending Unavailable CARMINE, BILL Arnold Referring Unavailable Lila GOMEZ (PA-C) Attending Unavailable GERALDINE JAUREGUI (ASSISTANT ATTORNEY GENERAL) Attending Unavailable CARMINE, BILL Arnold Attending Unavailable GERALDINE JAUREGUI (ASSISTANT ATTORNEY GENERAL) Attending Unavailable FRANCISCO MAE Attending Unavailable FRANCISCO MAE Referring Unavailable CARMINE, BILL Arnold Attending Unavailable GERALDINE JAUREGUI (ASSISTANT ATTORNEY GENERAL) Attending Unavailable CARMINE, BILL Arnold Referring Unavailable CARMINE, BILL Arnold Referring Unavailable CARMINE, BILL Arnold Attending Unavailable CARMINE, BILL Arnold Referring Unavailable MAY, SATYA Barnes Attending Unavailable MAY, SATYA Barnes Admitting Unavailable MAY, SATYA Barnes Attending Unavailable MAY, SATYA Barnes Referring Unavailable MAY, SATYA Barnes Admitting Unavailable MAY, SATYA Barnes Attending Unavailable BUDZIGELA RUBI Attending Unavailable MAY, SATYA Barnes Admitting Unavailable MAY, SATYA Barnes Attending Unavailable GUILHERME MONTEJO DO Admitting Unavailable GUILHERME MONTEJO DO Attending Unavailable CARMINE, BILL Referring Unavailable GUILHERME MONTEJO DO Primary Care Unavailable CARMINE, BILL Consulting Unavailable PROVIDER, UNKNOWN Consulting Unavailable ANISHA, DR MATTHEW Barnes Admitting Unavailable LANCASTER, DR MATTHEW Barnes Attending Unavailable CARMNIE, BILL Referring Unavailable LANCASTER, DR MATTHEW Barnes Primary Care Unavailable CARMINE, BILL Consulting Unavailable PROVIDER, UNKNOWN Consulting Unavailable TON, DR BILL Gomez Admitting Unavailable TON, DR BILL Gomez Attending Unavailable TON, DR BILL Gomez Primary Care Unavailable CARMINE, BILL Consulting Unavailable CARMINE, BILL Referring Unavailable PROVIDER, UNKNOWN Consulting Unavailable ERIN PAYTON M Admitting Unavailable ERIN PAYTON Attending Unavailable CARMINE, BILL Referring Unavailable HABEMILEE ERIN M Primary Care Unavailable CARMINE, BILL Consulting Unavailable PROVIDER, UNKNOWN Consulting Unavailable ANISHA, DR MATTHEW Barnes Admitting Unavailable LANCASTER, DR MATTHEW Barnes Attending Unavailable CARMINE, BILL Referring Unavailable ANISHA, DR MATTHEW Barnes Primary Care Unavailable CARMINE, BILL Consulting Unavailable PROVIDER, UNKNOWN Consulting Unavailable PROBLEMS PROBLEMS DATE TYPE CONDITION / CODE ATTENDING STATUS SOURCE 05/06/2018 Active Headache / NA Active [place] R51(ICD-10) [facility] Rep[facility] 04/13/2018 Active Fibromyalgia / NA Active [place] M79.7(ICD-10) [facility] Rep[facility] 03/12/2018 Active Radiculopathy, MAY, SATYA C Active [facility]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 / Clinic Other M54.16(ICD-10) [facility] 03/12/2018 Active Chest pain, BUDZIAK, Active [facility] unspecified / [facility] Other R07.9(ICD-10) [facility] Rep[facility] 03/12/2018 Active Other specified BUDZIAK, Active [facility] abnormal findings of [facility] Other blood chemistry / [facility] R79.89(ICD-10) Repository 12/12/2017 Active Paresthesia of skin NA Active [facility] / R20.2(ICD-10) Clinic Main [facility] 11/17/2017 Active Sacrococcygeal MAYSATYA Active [facility] disorders, not Clinic Other elsewhere classified [facility] / M53.3(ICD-10) Repository 11/17/2017 Active Other chronic pain / MAYSATYA Active [facility] G89.29(ICD-10) Clinic Other [facility] 11/27/2017 Active Bronchitis, not NA Active [facility] specified as acute Clinic Main or chronic / [facility] J40(ICD-10) Repository 10/09/2017 Active Other intervertebral SATYA MAY Active [facility] disc degeneration, Clinic Main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 / [facility] M51.36(ICD-10) Repository 10/09/2017 Active Unspecified MAYSATYA Active [facility] 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, [facility]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 / M46.98(ICD-10) 11/18/2014 Active Cervicalgia / SATYA MAY Active [facility] M54.2(ICD-10) Clinic Main [facility] 11/21/2017 Unknown R10.32 - Left lower Colon, Topher Active [place] quadrant pain / [facility] R10.32(ICD-10) Hospital Repository 10/01/2017 Active Pain in right hand / NA Active [facility] M79.641(ICD-10) Clinic Main [facility] 09/17/2017 Active Unspecified injury NA Active [facility] of left wrist, hand Clinic Main and finger(s), [facility] initial encounter / Repository S69.92XA(ICD-10) 09/17/2017 Active Unknown / ROMAIN ARAGON Active [facility] UNK(Unknown) (PT) Clinic Main [facility] Rep[facility] 2017 Unknown R10.31 - Right lower FRANCISCO EMANUEL Active [place] quadrant pain / Community R10.31(ICD-10) Hospital Repository PROCEDURES PROCEDURES No Procedure Records FoundRESULTS RESULTS PROGRESS Observed: 06/03/2018 Status: COMPLETED Source: [place] 11:[address] [facility] REPOSITORY HNO ID: [id number] Author: Satya May Service: (none) Author Type: Physician Type: Progress Notes Filed: 06/03/2018 12:55 PM Note Text: [facility] OFF[facility] NOTE DATE: June 03, 2018 Chief Complaint: chronic lower back and right lower extremity SUBJECTIVE: Ms. Cr [facility] for a follow up appointment regarding chronic lower back and right lower extremity pain. She states that since the last visit symptoms have been persistent. The pain is located in the Back and Right leg area and radiates down the posterior leg. The pain is described as aching and is rated as 6 on a scale of 0-10. The patient Reports morning stiffness, leg pain and leg weakness. Symptoms interfere with physical activity. The pain is exacerbated by standing, forward flexion, lifting, getting up from sitting and walking. The pain is mitigated by medications. The patient is overall improved with the injections by 75%. She is currently receiving medications through the [facility]. She is not having difficulty with her [facility] medications. The medications are effective. The patient states the last dose of Lyrica was taken last night. 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 pregabalin (LYRICA) 150 mg capsule Take 1 capsule by mouth twice daily for 30 days. hydrOXYzine pamoate (VISTARIL) 50 mg capsule Take 50 mg by mouth three times daily as needed. medroxyPROGESTERone (DEPO-PROVERA) 150 mg/mL syrg Inject 1 mL intramuscularly every 12 weeks. oxaprozin (DAYPRO) 600 mg tablet Take 2 tablets by mouth once daily. carvedilol (COREG) 12.5 mg tablet Take 25 mg by mouth twice daily. FLUoxetine (PROZAC) 20 mg capsule Take 20 mg by mouth once daily. furosemide (LASIX) 20 mg tablet Take 20 mg by mouth once daily. FLUoxetine HCl (PROZAC) 40 mg capsule Take 40 mg by mouth once daily. mirtazapine (REMERON) 15 mg tablet Take 15 mg by mouth daily at bedtime. famotidine (PEPCID) 20 mg tablet Take 1 tablet by mouth twice daily. COMPOUNDED PRESCRIPTION Nebulizer albuterol (PROVENTIL) 2.5 mg /3 mL (0.083 %) nebulizer solution Use 3 mL via nebulizer every 6 hours as needed for Wheezing/Shortness of Breath. Use over 5-15minutes. montelukast (SINGULAIR) 10 mg tablet Take 1 [...] has not changed. PHYSICAL EXAMINATION: Vitals: Pulse 61 Wt 214 lb (97.1kg) SpO2 97% Performed in conjunction with observation. The patient is alert and oriented x3. The patient is in no acute distress. Station and Gait: Normal stance, normal gait. Lungs: normal respiratory rate and rhythm. Cardiovascular: regular rate. Neck: Supple. The range of motion is intact. Back: Range of motion of the trunk was generally intact. Spine: Tenderness to the bilateral SI and lumbar paravertebrals Extremities: no reported edema or erythema. Motor: Exhibits full strength in all four extremities. ASSESSMENT: Patient reports lower back pain and bilateral SI tenderness. She has occasional right buttock pain. She has intermittent left posterior pain that radiates down to behind the knee. Her insurance denied SI RFAs. She had great results in 2014 that lasted 3 years. She had a left L4-5 TFSI on 04-07-18 and reports 75% improvement. Plan to repeat in July. She works out on a [place] and does daily stretching and exercise She takes lyrica 150 mg and zanaflex with occasional short rx for percocet for flare ups Encounter Diagnosis ICD-10-CM 1. DDD (degenerative disc disease), lumbar M51.36 2. SI joint arthritis M47.818 3. Chronic SI joint pain M53.3 G89.29 4. Radiculopathy,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 M54.16 PDMP website checked and validated. All prescriptions have been APPROPRIATELY filled. No suspicious activity was identified. 06/03/2018 by Kinjal Villarreal MA Narcotic Agreement reviewed and signed?: N/A on June 03, 2018 Urine Panel: Lab Results Component Value [...] Urine pH, Pain Anaya 6.5 12/12/2017 Specific [place],Ur Pain Anaya 1.015 12/12/2017 Oxidants,Ur <38 12/12/2017 Specimen Quality, Ur Pain Anaya Possible sample dilution indicated. 06/12/2015 The pain panel was Reviewed - No inconsistencies noted. PLAN: Prior available imaging studies were reviewed. Findings were discussed. Injection history was reviewed. Medication use and compliance were reviewed. 1. Continue medication management through the [facility] 2. For acute exacerbation of pain. Continue Lyrica 150 mg BID. No refills needed today PCP PRESCRIBES ZANAFLEX AND DAYPRO Signed Prescriptions Disp Refills oxyCODONE-acetaminophen (PERCOCET) 5-325 mg tablet 28 tablet 0 Sig: Take 1 tablet by mouth every 4 hours as needed for Pain for up to 7 days. EFREN Class: C-II MARIS: No 3. Interventional procedure options discussed. Ordered and schedule repeat left L4-5 TFSI 4. Continue regular home exercise program. 5) F/U in 3 months The treatment plan was discussed with the patient during the office visit and they verbalized an understanding of it. Geraldine Jauregui APRN.ASSISTANT ATTORNEY GENERAL Attending Note I have personally performed a face to face assessment of the patient and have reviewed the PA/LIMNOLOGY TEACHER note. My hunt findings include: History is reviewed and is as above. Exam is consistent with above. Assessment/Plan are as outlined and with all questions reviewed and discussed. Other additions or changes: None Satya May MD cc: Dr. Bill Lou MD cc: SELF Phone: N/A Fax: Results of consultation to be transmitted via electronic medical record for those providers who practice within [facility] [place] or with access to [employer] via [employer], or via letter. CNOV Observed: 06/03/2018 Status: COMPLETED Source: [place] 11:00 AM [facility] [place] Office Visit (PNMDNA) CHRISSIE CR ([id number]) 1980 F H[facility] Date Time Provider Department 06/03/18 11:00 AM SATYA MAY During your visit today, we recorded the following information about you: Pulse Weight 61/minute 97.1 kg Satya May MD 06/03/2018 12:55 PM Signed [facility] OFFICE NOTE DATE: June 03, 2018 Chief Complaint: chronic lower back and right lower extremity SUBJECTIVE: Ms. Cr presents [facility] office for a follow up appointment regarding chronic lower back and right lower extremity pain. She states that since the last visit symptoms have been persistent. The pain is located in the Back and Right leg area and radiates down the posterior leg. The pain is described as aching and is rated as 6 on a scale of 0-10. The patient Reports morning stiffness, leg pain and leg weakness. Symptoms interfere with physical activity. The pain is exacerbated by standing, forward flexion, lifting, getting up from sitting and walking. The pain is mitigated by medications. The patient is overall improved with the injections by 75%. She is currently receiving medications through the [facility]. She is not having difficulty with her [facility] medications. The medications are effective. The patient states the last dose of Lyrica was taken last night. 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 pregabalin (LYRICA) 150 mg capsule Take 1 capsule by mouth twice daily for 30 days. hydrOXYzine pamoate (VISTARIL) 50 mg capsule Take 50 mg by mouth three times daily as needed. medroxyPROGESTERone (DEPO-PROVERA) 150 mg/mL syrg Inject 1 mL intramuscularly every 12 weeks. oxaprozin (DAYPRO) 600 mg tablet Take 2 tablets by mouth once daily. carvedilol (COREG) 12.5 mg tablet Take 25 mg by mouth twice daily. FLUoxetine (PROZAC) 20 mg capsule Take 20 mg by mouth once daily. furosemide (LASIX) 20 mg tablet Take 20 mg by mouth once daily. FLUoxetine HCl (PROZAC) 40 mg capsule Take 40 mg by mouth once daily. mirtazapine (REMERON) 15 mg tablet Take 15 mg by mouth daily at bedtime. famotidine (PEPCID) 20 mg tablet Take 1 tablet by mouth twice daily. COMPOUNDED PRESCRIPTION Nebulizer albuterol (PROVENTIL) 2.5 mg /3 mL (0.083 %) nebulizer solution Use 3 mL via nebulizer every 6 hours as needed for Wheezing/Shortness of Breath. Use over 5-15minutes. montelukast (SINGULAIR) 10 mg tablet Take 1 [...] has not changed. PHYSICAL EXAMINATION: Vitals: Pulse 61 Wt 214 lb (97.1kg) SpO2 97% Performed in conjunction with observation. The patient is alert and oriented x3. The patient is in no acute distress. Station and Gait: Normal stance, normal gait. Lungs: normal respiratory rate and rhythm. Cardiovascular: regular rate. Neck: Supple. The range of motion is intact. Back: Range of motion of the trunk was generally intact. Spine: Tenderness to the bilateral SI and lumbar paravertebrals Extremities: no reported edema or erythema. Motor: Exhibits full strength in all four extremities. ASSESSMENT: Patient reports lower back pain and bilateral SI tenderness. She has occasional right buttock pain. She has intermittent left posterior pain that radiates down to behind the knee. Her insurance denied SI RFAs. She had great results in 2014 that lasted 3 years. She had a left L4-5 TFSI on 04-07-18 and reports 75% improvement. Plan to repeat in July. She works out on a [place] and does daily stretching and exercise She takes lyrica 150 mg and zanaflex with occasional short rx for percocet for flare ups Encounter Diagnosis ICD-10-CM 1. DDD (degenerative disc disease), lumbar M51.36 2. SI joint arthritis M47.818 3. Chronic SI joint pain M53.3 G89.29 4. Radiculopathy,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 M54.16 PDMP website checked and validated. All prescriptions have been APPROPRIATELY filled. No suspicious activity was identified. 06/03/2018 by Kinjal Villarreal MA Narcotic Agreement reviewed and signed?: N/A on June 03, 2018 Urine Panel: Lab Results Component Value Date Cannabinoid Quant, Urine <16 12/12/2017 Benzoylecognine Quant, Urine <24 12/12/2017 6-Acetylmorphine Quant, Urine <5 12/12/2017 Amphetamine Quant, Urine <12/12/2017 Methamphetamine Quant, Urine <12/12/2017 Methamphetamine, Urine Non-Detected 01/20/2018 Buprenorphine Quant, Urine <12/12/2017 Norbuprenorphine Quant, Urine <20 12/12/2017 Methadone Quant, Urine <16 12/12/2017 EDDP Quant, Urine <12/12/2017 Tramadol Quant, Urine <25 12/12/2017 Desmethyltramadol Quant, Urine <12/12/2017 Fentanyl Quant, Urine <12/12/2017 Norfentanyl Quant, Urine <6 12/12/2017 Codeine Quant, Urine <11 12/12/2017 Morphine Quant, Urine <10 12/12/2017 Dihydrocodeine Quant, Urine <12/12/2017 Hydrocodone Quant, Urine <8 12/12/2017 Oxycodone Quant, Urine <10 (H) 12/12/2017 Hydromorphone Quant, Urine <5 12/12/2017 Oxymorphone Quant, Urine <5 12/12/2017 Creatinine,Ur Pain Anaya 133.6 12/12/2017 Urine pH, Pain Anaya 6.5 12/12/2017 Specific [place],Ur Pain Anaya 1.015 12/12/2017 Oxidants,Ur <38 12/12/2017 Specimen Quality, Ur Pain Anaya Possible sample dilution indicated. 06/12/2015 The pain panel was Reviewed - No inconsistencies noted. PLAN: Prior available imaging studies were reviewed. Findings were discussed. Injection history was reviewed. Medication use and compliance were reviewed. 1. [facility] 2. For acute exacerbation of pain. Continue Lyrica 150 mg BID. No refills needed today PCP PRESCRIBES ZANAFLEX AND DAYPRO Signed Prescriptions Disp Refills oxyCODONE-acetaminophen (PERCOCET) 5-325 mg tablet 28 tablet 0 Sig: Take 1 tablet by mouth every 4 hours as needed for Pain for up to 7 days. EFREN Class: C-II MARIS: No 3. Interventional procedure options discussed. Ordered and schedule repeat left L4-5 TFSI 4. Continue regular home exercise program. 5) F/U in 3 months The treatment plan was discussed with the patient during the office visit and they verbalized an understanding of it. Geraldine Jauregui APRN.ASSISTANT ATTORNEY GENERAL Attending Note I have personally performed a face to face assessment of the patient and have reviewed the PA/LIMNOLOGY TEACHER note. My hunt findings include: History is reviewed and is as above. Exam is consistent with above. Assessment/Plan are as outlined and with all questions reviewed and discussed. Other additions or changes: None Satya May MD cc: Dr. Bill Lou MD cc: SELF Phone: N/A Fax: Results of consultation to be transmitted via electronic medical record for those providers who practice within [facility] [place] or with access to [employer] via MD Connect, or via letter. 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] Chronic SI joint pain [M53.3, G89.29] Radiculopathy,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 [M54.16] Order(s):INJ TRANSFORAMINAL EPID ANES/STER LS SINGL [[id number]] Order #: [id number] oxyCODONE-acetaminophen (PERCOCET) 5-325 mg tabletTake 1 tablet by mouth every 4 hours as needed for Pain for up to 7 days.Disp: 28 tabletRfl: 0 Prescriptions as of 06/03/2018 Sig: TIZANIDINE 4 MG TABLET Take 1 tablet by mouth every * PREGABALIN 150 MG CAPSULE Take 1 capsule by mouth twice* HYDROXYZINE PAMOATE 50 MG CAP* Take 50 mg by mouth three parviz* MEDROXYPROGESTERONE 150 MG/ML* Inject 1 mL intramuscularly e* OXAPROZIN 600 MG TABLET Take 2 tablets by mouth once * CARVEDILOL 12.5 MG TABLET Take 25 mg by mouth twice bruce* FLUOXETINE 20 MG CAPSULE Take 20 mg by mouth once mariel* FUROSEMIDE 20 MG TABLET Take 20 mg by mouth once mariel* FLUOXETINE 40 MG CAPSULE Take 40 mg by mouth once mariel* FAMOTIDINE 20 MG TABLET Take 1 tablet by mouth twice * COMPOUNDED PRESCRIPTION Nebulizer ALBUTEROL SULFATE 2.5 MG/3 ML* Use 3 mL via nebulizer every * MONTELUKAST 10 MG TABLET Take 1 tablet by mouth daily * LEVETIRACETAM 750 MG TABLET Take 2 tablets by mouth twice* ALBUTEROL SULFATE HFA 90 MCG/* Inhale 2 Puffs as instructed * COMPOUNDED PRESCRIPTION BLOOD PRESSURE CUFF FOR HOME * OXYCODONE-ACETAMINOPHEN 5 MG-* Take 1 tablet by mouth every * Problem List As Of Date 06/03/2018 Noted Resolved 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 disorder [I35.9] SUPERVIS OTHER NORMAL PREG [Z34.80] INVALID FOR*02/10/2008 THREATEN ABORT-ANTEPART [O20.0] INVALID FOR*02/10/2008 Migraine, unspecified, without mention of intra*INVALID FOR* 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 [...] Radiculopathy,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 [M54.16] INVALID FOR* More... Prescriptions ordered this encounter Disp Refills Start End OXYCODONE-ACETAMINOPHEN 5 MG-325 MG * 28 t* 0 06/03/2018 06/10/2018 Class: Print RX Route: ORAL Sig: Take 1 tablet by mouth every 4 hours as needed for Pain for up to 7 days. Medications Discontinued During This Encounter mirtazapine (REMERON) 15 mg tablet 06/03/2018 Class: Historical Med Route: ORAL Sig: Take 15 mg by mouth daily at bedtime. Disc: Course of therapy completed clonazePAM (KLONOPIN) 0.5 mg tablet 06/03/2018 Class: Historical Med Route: ORAL Sig: Take 0.5 mg by mouth at bedtime as needed. Disc: Course of therapy completed oxyCODONE-acetaminophen (PERCOCET) 5* 28 t* 0 02/18/2018 06/03/2018 Class: Print RX Route: ORAL Sig: Take 1 tablet by mouth every 4 hours as needed for Pain for up to 7 days. Disc: Reason for discontinue is not on file. Encounter Status:Closed by SATYA MAY MD on 06/03/18 EMERGENCY DEPARTMENT Observed: 05/25/2018 Status: F Source: [place] SUMMARY 2:04 PM [facility] REPOSITORY [facility] Medical Records Department [address] [place] [address] Emergency Department Summary 05/25/18 1401 MR#: [id number] Acct: [id number] Name: CHRISSIE CR Rep #: [id number] : 1980 37 From: Cecilio Young MD PCP: Bill Lou MD Status: REG ER - ER Visit Summary Date of Service: 05/25/18 Chief Complaint: Near syncope History of Present Illness: The patient is a 37 F who presents with near syncopal symptoms. She felt weird at work like she is going to pass out. When she sat down she missed her chair and landed on her backside. She has a history of chronic pain. She has been seen here multiple times. She denies chest pain or shortness of breath. Denies drug or alcohol use. Physical Examination: Vital signs reviewed. HEENT exam unremarkable. Heart is regular rate and rhythm without murmurs. Lungs are clear to auscultation. Abdomen is soft and nontender. Extremities reveal no edema. Skin exam normal. Neurologic exam normal. She is drowsy. Test Results: Laboratory studies are unremarkable. Alcohol normal. Tox screen reveals methamphetamines and benzodiazepine Emergency Department Course and Treatment: Patient denies use of any benzodiazepines at home. There are none on her med list. However, she is positive for this. I feel she is likely drowsy because of taking benzodiazepines. The rest of her exam is unremarkable. I feel she can be discharged home to follow-up with her PCP Treatment Plan: [] Disposition: Discharge Impression: Near syncope This note was generated with StepLeader dictation software. It may contain incorrect words, spelling, and punctuation that were not noted in review of the chart prior to signing ED Disposition - Plan for ED Patient: Chief Complaint: Syncope Referrals: Bill Lou MD [Primary Care Provider] - What to do if you have Problems For any increased pain, shortness of breath, bleeding, nausea or vomiting, chest pain, or any unexpected problems, contact your Primary Care Provider. Call [facility] ([phone]) or report to the closest Emergency Room. Call 911 if necessary. 05/25/18 1404 <Electronically signed by Cecilio Young MD> Date Cecilio Young MD Cosigner Signature (If Indicated): Date CC: Bill Lou MD DISCHARGE INSTRUCTION Observed: 05/25/2018 Status: F Source: [place]AK 2:04 PM [facility] REPOSITORY [facility] Medical Records Department [address] [place] [address] Discharge Instruction 05/25/18 1404 MR#: [id number] Acct: [id number] Name: CHRISSIE CR Rep #: [id number] : 1980 37 From: Cecilio Young MD PCP: Bill Lou MD Status: REG ER ED Disposition - Plan for ED Patient: Disposition: Home or Assisted Living Chief Complaint: Syncope Instructions: ED Near Syncope Unkn Referrals: Bill Lou MD [Primary Care Provider] - What to do if you have Problems For any increased pain, shortness of breath, bleeding, nausea or vomiting, chest pain, or any unexpected problems, contact your Primary Care Provider. Call [facility] ([phone]) or report to the closest Emergency Room. Call 911 if necessary. 05/25/18 1404 <Electronically signed by Cecilio Young MD> Date Cecilio Young MD Cosigner Signature (If Indicated): Date CC: Bill Lou MD URINE DRUG SCREEN Collected: 05/25/2018 Status: F Source: ZAK (VISTA) 1:38 PM [facility] REPOSITORY TYPE CODE TESTS RESULT OUT OF RANGE REFERENCE UNITS LAB L505.0075 TO BE Normal CONFIRMED Result Comment: CONFIRMATORY TESTING FOR ALL POSITIVE URINE DRUG SCREEN RESULTS WILL ONLY BE SENT OUT UPON PHYSICIAN ORDER. VISTA Urine Drug Screen methods provide only preliminary analytical test results. A more specific alternate chemical method must be used in order to obtain a confirmed analytical result. Gas chromatography/mass spectrometery (GC/MS) is the preferred confirmatory method. Clinical consideration and professional judgement should be applied to any drug of abuse test result, particularly when preliminary positive results are used. URINE TCA TESTING MUST BE ORDERED SEPARATELY. USE TEST MNEMONIC: [facility] LAB L505.5005 VISTA UDS PH 5 Normal LAB L505.5015 <1000 ng/mL AMPHETAMINES Normal NEGATIVE LAB L505.5025 < 200 ng/mL BARBITIURATES Normal NEGATIVE LAB L505.5035 < 200 High ng/mL BENZODIAZIPINE POSITIVE LAB L505.5045 < 300 ng/mL COCAINE Normal NEGATIVE LAB L505.5055 < 500 High ng/mL ECSTACY POSITIVE LAB L505.5065 < 300 ng/mL METHADONE Normal NEGATIVE LAB L505.5075 < 300 ng/mL OPIATES Normal NEGATIVE LAB L505.5085 < 25 ng/mL PCP Normal NEGATIVE LAB L505.5095 < 50 ng/mL THC Normal NEGATIVE Performed By: #### L505.5000 #### [facility] [address] [place], [address] CBC W/DIFF, AUTOMATED Collected: 05/25/2018 Status: F Source: [place] 11:16 AM [facility] REPOSITORY TYPE CODE TESTS RESULT OUT OF RANGE REFERENCE UNITS LAB L100.1000 4.4-11.0 K/mm3 Normal WBC 7.9 LAB L100.1200 4.2-5.4 M/mm3 Low RBC 3.97 LAB L100.1300 12.0-15.0 g/dl Normal HGB 12.0 LAB L100.1400 37-47 % Low HCT 36.8 LAB L100.1500 81-99 fL Normal MCV 92.7 LAB L100.1600 27.0-32.0 pg Normal MCH 30.2 LAB L100.1700 32-36 g/gl Normal MCHC 32.6 LAB L100.1810 11.6-14.6 % Normal RDW CV 12.7 LAB L100.1820 35.1-43.9 fl Normal RDW SD 43.1 LAB L100.1900 150-450 K/mm3 Normal PLT 297 LAB L100.2000 6.2-12.0 fl Normal MPV 10.2 LAB L100.2100 47-70 % Normal NEUT% 64.7 LAB L100.2200 19-41 % Normal LY% 25.4 LAB L100.2300 0-10 % Normal MONO% 6.8 LAB L100.2400 0-5 % Normal EO% 2.4 LAB L100.2500 0-1 % Normal BASO% 0.4 LAB L100.2550 0.0-0.9 % Normal IM GRAN % 0.300 Result Comment: IG% - Immature Granulocytes (promyelocytes, myelocytes and metamyelocytes) > 1% indicates that a LEFT SHIFT is Present. LAB L100.2620 2.0-7.7 X10 3/uL Normal Absolute Neut 5.1 LAB L100.2720 0.83-4.51 X10 3/ul Normal Absolute Lymph 2.02 Performed By: #### L100.0100 #### [facility] [address] [facility] [address] [place], [place], [address] ALCOHOL, BLOOD Collected: 05/25/2018 Status: F Source: ZAK (MEDICAL)-SERUM 11:16 AM [facility] REPOSITORY TYPE CODE TESTS RESULT OUT OF RANGE REFERENCE UNITS LAB L501.9100 mg/dL Normal SERUM < 3.0 ETOH Result Comment: The serum:whole blood ethanol ratio is approximately 1.14 and varies slightly with hematocrit. Medical Alcohol reference interval and critical value in non-tolerant individuals; 50 - 100 Impairment 100 Intoxication 100 - 250 Severe Poisoning 250 - 400 Deep/possible fatal coma Performed By: #### L501.9100 #### [facility] [address] [facility] [address] [place], [place], [address] BASIC METABOLIC Collected: 05/25/2018 Status: F Source: ZAK PROFILE (BMP) 11:16 AM [facility] REPOSITORY TYPE CODE TESTS RESULT OUT OF RANGE REFERENCE UNITS LAB L501.0100 74-106 mg/dL Normal GLU 100 Result Comment: Fasting Glucose result from 100 to 125 mg/dL suggests IMPAIRED HOMEOSTASIS per A.D.A. criteria. Please note revised GLUCOSE reference range effective 2017. LAB L501.1000 7-18 mg/dL High BUN 19 LAB L501.1100 0.55-1.02 mg/dL Normal CREAT,SERUM 0.98 Result Comment: The validity of the calculated GFR AND GFRAA in patients over 70 years has not been determined. Clinical correlation is essential. LAB L501.1110 >60 mL/min Normal EST GFR 67 Result Comment: Non- GFR Calc LAB L501.1115 >60 mL/min Normal EST GFR - AA 81 Result Comment: GFR Calc LAB L501.1255 ml/min Normal Estimated CRCL 63.75 LAB L501.1300 10-20 RATIO Normal BUN/CRE 19.4 LAB L501.2200 8.5-10 mg/dL Normal .1 CA 8.6 LAB L501.5300 136-14 mmol/L Normal 5 NA 141 LAB L501.5600 3.5-5. mmol/L Normal 1 K 4.0 LAB L501.5900 98-107 mmol/L High CL 108 LAB L501.6100 21.0-3 mmol/L Low 2.0 CO2 20.0 LAB L501.6200 5-15 Normal GAP 13 Performed By: #### L500.2500 #### [facility] [address] [facility] [place], [address] HSV1,2/VZV AMPLIF Collected: 05/18/2018 Status: F Source: [place] 2:15 PM [facility] [place] [place] TYPE CODE TESTS RESULT OUT OF REFERENCE UNITS RANGE [facility] Spec[facility] Lesion Source LAB HRPSV1 HSV Type 1, Negative for HDA Herpes Simplex virus Type 1 by [facility]. LAB HRPSV2 HSV Type 2, Negative for HDA Herpes Simplex virus Type 2 by [facility]. LAB VZOSV V Zoster Virus, Negative for HDA Varicella Zoster virus by [facility]. Performed By: #### HSVVZV #### [facility] [address] [place], [place] [address] PROGRESS Observed: 05/18/2018 Status: COMPLETED Source: [place] 1:56 PM [facility] [place] HNO ID: [id number] Author: Kinjal (Filiberto) Pat Service: (none) Author Type: Nurse Practitioner Type: Progress Notes Filed: 05/18/2018 2:42 PM Note Text: Subjective HPI HPI Chrissie Cr is a 37 year old female who presents today for CC of blisters on face, she has had off and on for 2 weeks since psychiatrist adjusted medications. She has tried no treatment or medications. She states she recently started a new medication with with her psychiatrist. She is also requesting to have her lyrica renewed. BP 122/80 Pulse 62 Temp 36.7 ?C (98 ?F) (Tympanic) Resp 16 Wt 95.9 kg (211 lb 6.4 oz) BMI 37.45 kg/m? 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 Musculoskeletal: Negative for myalgias. Skin: Negative for itching and rash. Blisters on face and wrist All other systems reviewed and are negative. Objective Physical Exam Constitutional: She is oriented to person, place, and time and well-developed, well-nourished, and in no distress. Pulmonary/Chest: She has no decreased breath sounds. She has no wheezes. She has no rhonchi. She has no rales. Neurological: She is alert and oriented to person, place, and time. Skin: Skin is warm and dry. Rash noted. Rash is not vesicular. There is erythema. Psychiatric: Affect normal. ASSESSMENT/PLAN: 1. Skin lesion - ICD9: 709.9, ICD10: L98.9 Will check cultures Appear to be nodular lesions, not vesicular ]Check with psychiatrist concerning new lesions since starting medication Advise that she needs to see prescribing physician or PCP for lyrica, unable to do in [facility] - HSV 1,2/VZV AMP MOLECULAR DETECT Diagnosis and treatment plan were discussed and questions were answered to the patient's satisfaction. Pt acknowledged understanding of concepts and follow up plan. Specific signs and symptoms that would indicate the need for higher level of care were discussed in detail warranting prompt ER evaluation. Kinjal Stewart APRN.CNP CNOV Observed: 05/18/2018 Status: COMPLETED Source: [place] 1:45 PM [facility] [place] Office Visit (UCWSTR) CHRISSIE CR ([id number]) 1980 F HPR Date Time Provider Department 05/18/18 1:45 PM KINJAL STEWART (ASSISTANT ATTORNEY GENERAL) [facility] During your visit today, we recorded the following information about you: Temperature Pulse Respiration Blood pressure 98 degrees 62/minute 16/minute 122/80 Weight 95.9 kg Kinjal Stewart APRN.CNP 05/18/2018 2:42 PM Signed Subjective HPI HPI Chrissie Cr is a 37 year old female who presents today for CC of blisters on face, she has had off and on for 2 weeks since psychiatrist adjusted medications. She has tried no treatment or medications. She states she recently started a new medication with with her psychiatrist. She is also requesting to have her lyrica renewed. BP 122/80 Pulse 62 Temp 36.7 ?C (98 ?F) (Tympanic) Resp 16 Wt 95.9 kg (211 lb 6.4 oz) BMI 37.45 kg/m? 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 Musculoskeletal: Negative for myalgias. Skin: Negative for itching and rash. Blisters on face and wrist All other systems reviewed and are negative. Objective Physical Exam Constitutional: She is oriented to person, place, and time and well-developed, well-nourished, and in no distress. Pulmonary/Chest: She has no decreased breath sounds. She has no wheezes. She has no rhonchi. She has no rales. Neurological: She is alert and oriented to person, place, and time. Skin: Skin is warm and dry. Rash noted. Rash is not vesicular. There is erythema. Psychiatric: Affect normal. ASSESSMENT/PLAN: 1. Skin lesion - ICD9: 709.9, ICD10: L98.9 Will check cultures Appear to be nodular lesions, not vesicular ]Check with psychiatrist concerning new lesions since starting medication Advise that she needs to see prescribing physician or PCP for lyrica, unable to do in [facility] - HSV 1,2/VZV AMP MOLECULAR DETECT Diagnosis and treatment plan were discussed and questions were answered to the patient's satisfaction. Pt acknowledged understanding of concepts and follow up plan. Specific signs and symptoms that would indicate the need for higher level of care were discussed in detail warranting prompt ER evaluation. Kinjal Stewart APRN.FILIBERTO Stewart APRN.CNP 05/18/2018 2:42 PM Signed ASSESSMENT/PLAN: 1. Skin lesion - ICD9: 709.9, ICD10: L98.9 Will check cultures Appear to be nodular lesions, not vesicular ]Check with psychiatrist concerning new lesions since starting medication Advise that she needs to see prescribing physician or PCP for lyrica, unable to do in [facility] - HSV 1,2/VZV AMP MOLECULAR DETECT Referring Provider: SELF [200] Allergies As of Date: 05/18/2018 Noted Allergy Reaction ERYTHROMYCIN 09/26/2005 11 - [...] 09/30/2012 8 - GI Upset Date Reviewed: 05/18/2018 Reviewed by: [facility] Pat - Fully Assessed Reason for Visit: blisters on face [Other] Cmt: x 2 weeks-also some of left wrist Primary Visit Diagnosis:Skin lesion [L98.9] Order(s):HSV 1,2/VZV AMP MOLECULAR DETECT [[id number]] Order #: [id number] FUTURE Prescriptions as of 05/18/2018 Sig: ALBUTEROL SULFATE 2.5 MG/3 ML* Use [...] Take 20 mg by mouth once mariel* HYDROXYZINE PAMOATE 50 MG CAP* Take 50 mg by mouth three parviz* LEVETIRACETAM 750 MG TABLET Take 2 tablets by mouth twice* MEDROXYPROGESTERONE 150 MG/ML* Inject 1 mL intramuscularly e* MIRTAZAPINE 15 MG TABLET Take 15 mg by mouth daily at * MONTELUKAST 10 MG TABLET Take 1 tablet by mouth daily * OXAPROZIN 600 MG TABLET Take 2 tablets by mouth once * TIZANIDINE 4 MG TABLET Take 1 tablet by mouth every * PREGABALIN 150 MG CAPSULE Take 1 capsule by mouth twice* Problem List As Of Date 05/18/2018 Noted Resolved 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 disorder [I35.9] SUPERVIS OTHER NORMAL PREG [Z34.80] INVALID FOR*02/10/2008 THREATEN ABORT-ANTEPART [O20.0] INVALID FOR*02/10/2008 Migraine, unspecified, without mention of intra*INVALID FOR* 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 [...] Radiculopathy,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 [M54.16] INVALID FOR* More... Other instructions from your clinician: ASSESSMENT/PLAN: 1. Skin lesion - ICD9: 709.9, ICD10: L98.9 Will check cultures Appear to be nodular lesions, not vesicular ]Check with psychiatrist concerning new lesions since starting medication Advise that she needs to see prescribing physician or PCP for lyrica, unable to do in [facility] - HSV 1,2/VZV AMP MOLECULAR DETECT Encounter Status:Closed by KINJAL STEWART CNP on 05/18/18 TROPI Collected: 05/16/2018 Status: F Source: [facility] 1:26 PM [facility]ATION REPOSITORY TYPE CODE TESTS RESULT OUT OF REFERENCE UNITS RANGE LAB TROPI(LOINC 0.000-0.040 ng/mL ) Troponin I <0.015 Result Comment: Troponin I reference ranges (01/31/14): 0.00-0.040 ng/mL Negative and non-diagnostic. >0.040 ng/mL Consistent with cardiac damage, increased clinical risk and possibility of myocardial infarction. Serial measurements, a rise & fall in test results, clinical history, appropriate symptoms and/or ECG changes may help assess possibility of ME. *Other non-acute coronary syndrome conditions such as CHF, myocarditis, pulmonary emboli, sepsis and cardiac surgery could result in myocardial damage and increased troponin levels. Performed By: #### TROPI #### [address] [address] TSH Collected: 05/16/2018 Status: F Source: [employer] 8:04 AM [facility] REPOSITORY TYPE CODE TESTS RESULT OUT OF RANGE REFERENCE UNITS LAB TSH(LOINC) 0.360-3.740 mcIU/mL TSH 3.710 Result Comment: Please note as of 12/07/16 new pediatric reference intervals were added for this test. Performed By: #### TSH #### [place] [id number] XR CHEST 1 VIEW Observed: 05/16/2018 Status: F Source: [employer] 7:57 AM [facility] REPOSITORY ORIGINAL XR CHEST 1 VIEW, portable upright 9:14 AM Clinical Statement: chest pain, Comparison: 04/08/2018 Findings: No consolidation, pneumothorax, pleural fluid, or vascular congestion is seen. Heart size and mediastinal contours are within normal limits for age and projection. No acute skeletal abnormality. Previous sternotomy. IMPRESSION: No acute cardiopulmonary process. Interpreted By: Sylvester Davis MD Preliminary Report By: Sylvester Davis MD Electronically Signed By: Sylvester Davis MD Dictated Date: 05/16/2018 10:52:00 AM Prelim Date: 05/16/2018 10:52:00 AM Sign Date: 05/16/2018 10:52:24 AM TROPI Collected: 05/16/2018 Status: F Source: [employer] 7:42 AM [facility] REPOSITORY TYPE CODE TESTS RESULT OUT OF REFERENCE UNITS RANGE LAB TROPI(LOINC 0.000-0.040 ng/mL ) Troponin I <0.015 Result Comment: Troponin I reference ranges (01/31/14): 0.00-0.040 ng/mL Negative and non-diagnostic. >0.040 ng/mL Consistent with cardiac damage, increased clinical risk and possibility of myocardial infarction. Serial measurements, a rise & fall in test results, clinical history, appropriate symptoms and/or ECG changes may help assess possibility of ME. *Other non-acute coronary syndrome conditions such as CHF, myocarditis, pulmonary emboli, sepsis and cardiac surgery could result in myocardial damage and increased troponin levels. Performed By: #### TROPI #### [place] [address] CBC Collected: 05/16/2018 Status: F Source: [facility] [facility] 1:32 AM [facility] REPOSITORY TYPE CODE TESTS RESULT OUT OF REFERENCE UNITS RANGE LAB WBC(LOINC) 4.50-10.80 10 3/mcL WBC 10.10 LAB RBCCT(LOINC 4.10-5.30 10 6/mcL ) Low RBC 4.06 LAB HGB(LOINC) 12.0-16.0 G/dL Hgb 12.6 LAB HCT(LOINC) 34.0-46.0 % Hct 37.4 LAB MCV(LOINC) 80.0-99.0 fL MCV 92.2 LAB MCH(LOINC) 27.0-33.0 pg MCH 31.0 LAB MCHC(LOINC) 32.0-36.0 G/dL MCHC 33.6 LAB RDW(LOINC) 11.5-15.5 % RDW 13.2 LAB PLT(LOINC) 150-450 10 3/mcL Platelet 319 LAB MPV(LOINC) 6.6-10.5 fL MPV 8.9 Performed By: #### CBC, ADIFF, ANEU, BMP, GFR #### [facility] [address] [place] [address] .AUTO DIFF Collected: 05/16/2018 Status: F Source: [facility] 1:32 [facility] REPOSITORY TYPE CODE TESTS RESULT OUT OF REFERENCE UNITS RANGE LAB KOURTNEY(LOINC) 50.0-75.0 % Neutrophil % 61.4 LAB LYM(LOINC) 20.0-40.0 % Lymphocyte % 27.9 LAB MON(LOINC) 2.0-13.0 % Monocyte % 7.6 LAB EO(LOINC) 0.0-6.0 % Eosinophil % 2.0 LAB BAS(LOINC) 0.0-2.5 % Basophil % 1.1 LAB ABLYM(LOIN 0.90-4.32 10 3/mcL C) Lymphocyte, 2.80 Absolute LAB GWEN(LOINC 0.09-1.40 10 3/mcL ) Monocyte, 0.80 Absolute LAB AEOS(LOINC 0.00-0.65 10 3/mcL ) Eosinophil, 0.20 Absolute LAB ABAS(LOINC 0.00-0.27 10 3/mcL ) Basophil, 0.10 Absolute Performed By: #### CBC, ADIFF, ANEU, BMP, GFR #### [address] [address] .NEUABS Collected: 05/16/2018 Status: F Source: [facility] 1:32 AM [facility] REPOSITORY TYPE CODE TESTS RESULT OUT OF REFERENCE UNITS RANGE LAB ANEU(LOINC) 2.25-8.10 10 3/mcL Neutrophil, 6.20 Absolute Performed By: #### CBC, ADIFF, ANEU, BMP, GFR #### [place] [id number] BMP Collected: 05/16/2018 Status: F Source: [facility] 1:32 AM [facility] REPOSITORY TYPE CODE TESTS RESULT OUT OF REFERENCE UNITS RANGE LAB GLU(LOINC) 70-110 mg/dL Glucose High Level 120 LAB NA(LOINC) 136-145 mEq/L Sodium Level 141 LAB K(LOINC) 3.5-5.0 mEq/L Potassium Level 3.8 LAB CL(LOINC) 98-110 mEq/L Chloride 109 LAB CO2(LOINC) 22-32 mEq/L CO2 24 LAB EBAL(LOINC 4.0-15.0 mEq/L ) Electrolyte Balance 8.0 LAB BUN(LOINC) 8.0-22.0 mg/dL BUN High 23.0 LAB CRE(LOINC) 0.50-1.20 mg/dL Creatinine Lvl (s) 0.99 LAB BC(LOINC) 10.0-22.0 ratio High BUN/Creatinine 23.2 Ratio LAB CA(LOINC) 8.4-10.1 mg/dL Calcium Lvl 8.4 Performed By: #### CBC, ADIFF, ANEU, BMP, GFR #### [address] [address] .GFR Collected: 05/16/2018 Status: F Source: [facility] 1:32 AM [facility] REPOSITORY TYPE CODE TESTS RESULT OUT OF REFERENCE UNITS RANGE LAB GFRAA(LOINC ml/min/1.73 ) sqm GFR >60 Fijian Result Comment: GFR Population mean for , [...] 15 mL/min/1.73 square meters Performed By: #### CBC, ADIFF, ANEU, BMP, GFR #### [address] [address] TROPI Collected: 05/16/2018 Status: F Source: [employer] [facility] [employer] [facility] 1:32 AM [facility] REPOSITORY TYPE CODE TESTS RESULT OUT OF REFERENCE UNITS RANGE LAB TROPI(LOINC 0.000-0.040 ng/mL ) Troponin I <0.015 Result Comment: Troponin I reference ranges (01/31/14): 0.00-0.040 ng/mL Negative and non-diagnostic. >0.040 ng/mL Consistent with cardiac damage, increased clinical risk and possibility of myocardial infarction. Serial measurements, a rise & fall in test results, clinical history, appropriate symptoms and/or ECG changes may help assess possibility of ME. *Other non-acute coronary syndrome conditions such as CHF, myocarditis, pulmonary emboli, sepsis and cardiac surgery could result in myocardial damage and increased troponin levels. Performed By: #### TROPI #### [address] [address] TROPONIN Collected: 05/15/2018 Status: F Source: [facility] 8:55 PM [facility] REPOSITORY TYPE CODE TESTS RESULT [...] such as heterophile antibodies). Performed By: #### [id number] #### [place] [address] CHEST 1 VIEW Observed: 05/15/2018 Status: F Source: [facility] 6:26 PM [facility] REPOSITORY [place] [address] Patient: CHRISSIE CR Phone#: : 1980 Age: 37 Gender: F Pt. Type: ER Account: [id number] Location: [facility] Ordering: MATTHEW LANCASTER Exam Date: 05/15/2018/18:01 Family Phys: BILL BRAMBILAO Charge Code: [id number] Physician: Bandera Order #: [id number] DLP Dose#: PROCEDURE: X-RAY CHEST 1 VIEW COMPARISON: [facility], , CHEST 1 VIEW, 04/14/2018, 16:29. INDICATIONS: Chest pain. FINDINGS: LUNGS: Normal. No significant pulmonary parenchymal abnormalities. VASCULATURE: Normal. Unremarkable pulmonary vasculature. CARDIAC: Normal. No cardiac silhouette abnormality or cardiomegaly. MEDIASTINUM: Normal. No visible mass or adenopathy. PLEURA: Normal. No effusion or pleural thickening. BONES: Normal. No fracture or visible bony lesion. OTHER: Negative. CONCLUSION: No acute disease. No significant change has occurred. Dictated by: Jaime Mason MD on 05/16/2018 at 15:59 Approved by: Jaime Mason MD on 05/16/2018 at 15:59 CBC Collected: 05/15/2018 Status: F Source: [facility] 6:01 PM [facility] REPOSITORY TYPE CODE TESTS RESULT OUT OF RANGE REFERENCE UNITS LAB CBC(LOINC) CBC Result Comment: CBC-COMPLETE BLOOD COUNT LAB WBC(LOINC) 4.5 - 10.8 x 10EE3/UL WBC 9.3 LAB RBC(LOINC) 4.10 - x 10EE6/UL 5.30 RBC 4.24 LAB HEMOGLOBIN(LOINC) 12.0 - g/dl 16.0 HEMOGLOBIN 13.1 LAB HEMATOCRIT(LOINC) 34.0 - % 46.0 HEMATOCRIT 38.6 LAB MCV(LOINC) 80 - 99 fl MCV 91 LAB MCH(LOINC) 27 - 33 pg MCH 31 LAB MCHC(LOINC) 32 - 36 X10 3 MCHC 34 LAB RDW/CV(LOINC) 12.0 - % 15.6 RDW/CV 12.9 LAB PLATELET(LOINC) 150 - 450 x10EE3/UL PLATELET 346 LAB MPV(LOINC) 6.6 - 10.5 fl MPV 9.6 Result Comment: AUTOMATED DIFFERENTIAL LAB NEUT %(LOINC) 46.0 - 76.0 % NEUT % 63.8 LAB LYMPH %(LOINC) 20.0 - 45.0 % LYMPH % 24.9 LAB MONOS %(LOINC) 0.0 - 10.0 % MONOS % 8.4 LAB EO %(LOINC) 0.0 - 7.0 % EO % 2.1 LAB BASO %(LOINC) 0.0 - 2.0 % BASO % 0.8 LAB Lymph #(LOINC) 0.80 - 2.80 x10EE3/U L Lymph # 2.30 LAB Neut #(LOINC) 1.50 - 7.10 x10EE3/U L Neut # 5.90 LAB [place] #(LOINC) 0.20 - 1.00 x10EE3/U L [place] # 0.80 LAB EO #(LOINC) 0.00 - 0.50 x10EE3/U L EO # 0.20 LAB Baso #(LOINC) 0.00 - 0.10 x10EE3/U L Baso # 0.10 LAB MANUAL DIFF(LOINC) MANUAL DIFF N/A LAB MORPHOLOGY(LOINC ) MORPHOLOGY N/A Result Comment: {CD] Performed By: #### [id number] #### [place] [address] TROPONIN Collected: 05/15/2018 Status: F Source: [facility] [address] [place] [address] REPOSITORY TYPE CODE TESTS RESULT OUT OF [...] such as heterophile antibodies). Performed By: #### [id number] #### [place] [address] CMP WITH EGFR Collected: 05/15/2018 Status: F Source: [facility] [address] [place] [address] REPOSITORY TYPE CODE TESTS RESULT OUT OF RANGE REFERENCE UNITS LAB CMP with eGFR(LOINC) CMP with eGFR Result Comment: COMPREHENSIVE METABOLIC PANEL LAB SODIUM(LOINC) 136 - 145 mmol/l SODIUM 139 LAB POTASSIUM(LOINC) 3.5 - 5.1 mmol/L POTASSIUM 3.9 LAB CHLORIDE(LOINC) 98 - 107 mmol/L CHLORIDE High 108 LAB CO2(LOINC) 21.0 - mmol/L 31.0 CO2 22.5 LAB GLUCOSE(LOINC) 74 - 106 mg/dl GLUCOSE 89 LAB BUN(LOINC) 6 - 20 mg/dl BUN 19 LAB CREATININE(LOINC) 0.6 - 1.2 mg/dl CREATININE 1.0 LAB AST/SGOT(LOINC) 13 - 39 U/L AST/SGOT 20 LAB ALK PHOS(LOINC) 38 - 126 U/L ALK PHOS 42 LAB CALCIUM(LOINC) 8.6 - mg/dl 10.2 CALCIUM 9.1 LAB TOTAL 6.4 - 8.3 g/dl PROTEIN(LOINC) TOTAL PROTEIN 6.6 LAB ALBUMIN(LOINC) 3.4 - 4.8 g/dL ALBUMIN 4.2 LAB GLOBULIN(LOINC) 1.5 - 3.8 G/DL GLOBULIN 2.4 LAB A/G RATIO(LOINC) 0.9 - 1.6 A/G High RATIO 1.8 LAB TOTAL BILI(LOINC) 0.0 - 1.5 mg/dl TOTAL BILI 0.4 LAB B/C RATIO(LOINC) 0 - 30 ratio B/C RATIO 19 LAB ALT/SGPT(LOINC) 8 - 35 U/L ALT/SGPT 22 LAB ANION GAP(LOINC) 10 - 20 mmol/L ANION GAP 12 LAB AGE(LOINC) years AGE 37 LAB eGFR(LOINC) [...] OF AGE AND OLDER. Performed By: #### [id number] #### [place] [address] MAGNESIUM Collected: 05/15/2018 Status: F Source: [facility] 6:01 [facility] REPOSITORY TYPE CODE TESTS RESULT OUT OF REFERENCE UNITS RANGE LAB MAGNESIUM( 1.6 - 2.6 mg/dl LOINC) MAGNESIUM 2.1 Performed By: #### [id number] #### [place] [address] BNP (B-TYPE NATRIURETIC Collected: 05/15/2018 Status: F Source: [facility] PEPTIDE) 6:01 PM [facility] REPOSITORY TYPE CODE TESTS RESULT OUT OF RANGE REFERENCE UNITS LAB BNP(LOINC) 1 - 100 pg/ml High BNP 156 Performed By: #### [id number] #### [place] [address] APTT Collected: 05/15/2018 Status: F Source: [facility] [place] 6:01 [facility] REPOSITORY TYPE CODE TESTS RESULT OUT OF RANGE REFERENCE UNITS LAB PTT(LOINC) 25.4 - 38.4 sec Low PTT 15.2 Performed By: #### [id number] #### [place] [address] PROTHROMBIN TIME AND Collected: 05/15/2018 Status: F Source: [facility] INR 6:01 [facility] TYPE CODE TESTS RESULT OUT OF REFERENCE UNITS RANGE LAB PROTHROMBIN TIME AND INR(LOINC) PROTHROMBIN TIME AND INR Result Comment: PROTHROMBIN TIME AND INR LAB PT-COUMADIN(LOINC) sec PT-COUMADIN 11.6 LAB INR(LOINC) 0.8 - 1.2 INR 1.0 Result Comment: [...] 3.5 MECHANICAL HEART VALVES Performed By: #### [id number] #### [place] [address] D-DIMER, QUANTITATIVE Collected: 05/15/2018 Status: F Source: [facility] 6:01 [facility] TYPE CODE TESTS RESULT OUT OF REFERENCE UNITS RANGE LAB D-DIMER, QUANTITATI VE(LOINC) D-DIMER, QUANTITATIVE Result Comment: QUANT D-DIMER LAB D-DIMER QUANT(LOINC) 0 - 230 ng/ml D-DIMER QUANT 144 Performed By: #### [id number] #### [place] [id number] EMERGENCY REPORT Observed: 05/15/2018 Status: F [facility] PM [facility] REPORT NAME ACCOUNT SEX AGE ADMIT DISCHARGE PT MED. RECORD# NUMBER DATE DATE TYPE CHRISSIE CR [id number] F 37 05/15/18 3 L [id number] ROOM: ER DATE OF : 1980 DICTATING PHYSICIAN: Matthew aLncaster CHIEF COMPLAINT: Chest pain, shortness of breath. HISTORY OF PRESENT ILLNESS: Patient states that over the last several days her blood pressure has been running significantly higher than usual. She has developed shortness of breath the last couple of days, somewhat worse with activity. Today she has developed some nausea and chest pressure that seems to radiate up to her left neck area so she presents for evaluation with this. She was not having diaphoresis. No vomiting. PAST MEDICAL HISTORY: Significant for previous aortic valve replacement, longstanding hypertension, TIA, previous some type of carcinoma. She has a history of depression and anxiety. She does not have known coronary artery disease as best she can tell. PAST SURGICAL HISTORY: She has had previous oophorectomy/salpingectomy, bilateral knee surgery, ear tubes. SOCIAL HISTORY: She lives at home. She does smoke, drinks alcohol occasionally. REVIEW OF SYSTEMS: As mentioned above. She has noticed a little more swelling to her legs recently. PHYSICAL EXAMINATION: This is a 27-year-old mildly obese female who seems mildly anxious. She does not appear toxic or in acute distress. Skin is pink, warm and dry. HEENT exam is all within normal limits. Neck is supple without adenopathy. Lungs are clear without crackles or wheezes. Cardiac exam, regular rhythm without any ectopy, murmurs, gallops, or rubs. Abdomen is soft and nontender. She moves extremities appropriately. No focal weaknesses. She has no significantly noticeable clubbing, cyanosis or edema. Vital Signs: Blood pressure 165/105, pulse 70, respirations 18, O2 saturation was 97%. DIAGNOSTIC DATA: Patient had an EKG which showed normal sinus rhythm. She has anterolateral ST and T changes with some T wave inversions and some ST depression, though these were noticeable on previous EKGs. Chest x-ray showed on acute abnormalities. Lab studies were generally unremarkable. Page 1 of 2 CHRISSIE CR Emergency Room Report EMERGENCY DEPARTMENT COURSE AND TREATMENT: She was given some Lopressor, some Nitro paste which helped with her symptoms slightly but she did continue to have some chest discomfort. She does have risk factors and I feel needs additional cardiac workup. With it being a Friday, we are unable to do any of that until Friday, and so she would like to be transferred. Final management and disposition are pending. DIAGNOSIS: Chest pain. Dictated By: Matthew Lancaster MD 05/15/18 19:33 JOB #: [id number] Transcribed By: jordan 05/15/18 19:52 Electronically signed by: SHAILA Lancaster M.D. 06/04/18 19:55 Page 2 of 2 CHRISSIE CR Emergency Room Report EMERGENCY DEPARTMENT Observed: 05/12/2018 Status: F Source: [facility] SUMMARY 10:39 PM [facility] REPOSITORY [facility] Medical Records Department [address] [place] [address] Emergency Department Summary 05/12/18 1517 MR#: [id number] Acct: [id number] Name: CHRSISIE CR Rep #: [id number] : 1980 37 From: Arcadio Shepard MD [...] back pain This note was generated with StepLeader dictation software. It may contain incorrect words, [...] your Primary Care Provider. Call [facility] ([phone]) or report to the closest Emergency Room. Call 911 if necessary. 05/12/18 1759 <Electronically signed by Arcadio Shepard MD> Date Arcadio Shepard MD Cosigner Signature (If Indicated): Date CC: Bill Lou MD URINALYSIS, COMPLETE Collected: 05/12/2018 Status: F Source: [facility] 3:30 PM [facility] REPOSITORY Order Comment: How was Urine Obtained? [...] URINE SEEN Performed By: #### L400.0001 #### [facility] [address] [facility] [place], [address] LUMBAR SPINE 2 OR 3 Observed: 05/12/2018 Status: F Source: [facility] VIEWS 2:53 PM [facility] REPOSITORY [facility] Imaging Services [address] [place] [address] Lumbar Spine 2 or 3 Views MR#: [id number] Acct: [id number] Name: CHRISSIE CR Rep #: [id number] : 1980 F 37 From: Tenzin Persaud MD PCP: Bill Lou MD Status: REG ER Study: Lumbar Spine 2 or 3 Views Date of Exam: 05/12/18 Exam# [id number] Ordering Dr: Arcadio Shepard MD STUDY: X-RAY [...] Tenzin Persaud MD at 15:44 EST Tel [phone], Service support , CC: Arcadio Shepard MD; Bill Lou MD Pain Management Physician: Signed C-REACTIVE PROTEIN Collected: 05/06/2018 Status: F Source: [place] 3:52 PM [facility] [place] TYPE CODE TESTS RESULT OUT OF REFERENCE UNITS RANGE LAB CRP <0.9 mg/dL C-Reactive <0.1 Protein Performed By: #### CRP, WSR, ANAS #### [facility] [address] [place] [address] SED RATE WESTERGREN Collected: 05/06/2018 Status: F Source: [place] 3:52 PM [facility] REPOS[place]ORY TYPE CODE TESTS RESULT OUT OF REFERENCE UNITS RANGE LAB WSR 0-20 mm/hr Sed Rate Westergren 5 Performed By: #### CRP, WSR, ANAS #### [facility] [address] [place] [id number] ADAM Collected: 05/06/2018 Status: F Source: [place] 3:52 PM [facility] REPOSITORY TYPE CODE TESTS RESULT OUT OF REFERENCE UNITS RANGE LAB ANAQL Negative ADAM Negative by EIA, Qual LAB ANAEIA OD Ratio ADAM 0.3 by EIA Result Comment: OD Ratio is interpreted as follows: Negative <1.0 Positive >=1.0 Performed By: #### CRP, WSR, ANAS #### [facility] [address] [place] [address] CBC AND DIFFERENTIAL Collected: 05/06/2018 Status: F Source: [place] 3:50 PM [facility] REPOSIT[place] TYPE CODE TESTS RESULT OUT OF [...] k/uL Abs Lymph 2.01 LAB AMONO % [place]% 8.1 LAB AAMONO <0.87 k/uL Abs [place] 0.66 LAB AEOS % Eosin% 2.5 LAB AAEOS <0.46 k/uL Abs Eosin 0.20 LAB ABASO % Baso% 0.6 LAB AABASO <0.11 k/uL Abs Baso 0.05 LAB AUNRBC 0 /100 WBC NRBCs 0.0 LAB ABNRBC <0.01 k/uL Absolute nRBC <0.01 LAB DTYP DTYPE Auto Diff Performed By: #### CBCDIF, CMP, TSH #### [facility] [address] [place] [id number] COMP METABOLIC PANEL Collected: 05/06/2018 Status: F Source: [place] 3:[address] [facility] REPOSITORY TYPE CODE TESTS RESULT OUT OF REFERENCE UNITS RANGE LAB TP 6.3-8.0 g/dL Protein, Total 7.2 LAB ALB 3.9-4.9 g/dL Albumin 4.4 LAB CA 8.5-10.2 mg/dL Calcium, Total 9.4 LAB TBIL 0.2-1.3 mg/dL Bilirubin, Total 0.2 LAB ALKP 34-123 U/L Alkaline Phosphatase 50 LAB AST 13-35 U/L AST 34 LAB GLU 74-99 mg/dL Low Glucose 67 Result Comment: The [place] Diabetes Association (ADA) provides guidance for cutoff [...] Standards of Medical Care in Diabetes 2016, [place] Diabetes Association. Diabetes Care. 2016.39(Suppl 1). LAB [...] Performed By: #### CBCDIF, CMP, TSH #### [facility] [address] [place] [address] TSH Collected: 05/06/2018 Status: F Source: [place] 3:50 PM [facility] REPOSITORY TYPE CODE TESTS RESULT OUT OF RANGE REFERENCE UNITS LAB TSH 0.400-5.500 uU/mL TSH 2.380 Result Comment: If the patient is , TSH reference range varies by gestational period: First Trimester 0.100-2.500 uU/mL Second Trimester 0.200-3.000 uU/mL Third Trimester 0.300-3.000 uU/mL References: 1. Clancy L, Frandy M, Paras ARMANDO, et al. Management of Thyroid Dysfunction during and : An Endocrine Society Clinical Practice Guideline. J Clin Endocrinol Metab, 2012:97:0210-8860. 2. Mychal RAYO. Overview of thyroid disease in . UpToDate. 2016. Accessed on November 10, 2015. Performed By: #### CBCDIF, CMP, TSH #### [facility] [address] [place] [id number] PROGRESS Observed: 05/06/2018 Status: COMPLETED Source: [place] 3:[address] 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.] valve disorders BICUSPID 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, 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 - Arrhythmia - Bicornuate uterus - Chronic [...] Mother - Coronary Artery Disease Mother 46 ME x 2 - Hyperlipidemia Mother - other [...] [R47.81] Order(s):CONSULT TO OPHTHALMOLOGY [9024] Order #: [id number]: 1 CONSULT TO NEUROLOGY [9019] Order #: [id number]: 1 MRI BRAIN WO/W IVCON [6859801] Order #: [id number] FUTURE iv contrast (will be provided with [...] 0 CBC + DIFF [SQCBCDIF] Order #: [id number] FUTURE COMP METABOLIC PANEL [SQCMP] Order #: [id number] FUTURE TSH BLD [SQTSH] Order #: [id number] FUTURE Prescriptions as of 05/06/2018 Sig: ALBUTEROL [...] PREG NOS [O09.90] INVALID FOR*02/10/2008 MILD/NOS PREECLAMP-ANTEP [AKP6870] INVALID FOR*02/10/2008 ABDOMINAL PAIN LLQ [R10.32] INVALID FOR*02/10/2008 Abnormal mammogram, unspecified [R92.8] INVALID FOR*01/01/2016 Status post aortic valve repair [Z98.890] INVALID FOR* Myofascial pain [M79.18] INVALID FOR* Thoracic sprain and strain [SXC1321] INVALID FOR*07/12/2015 Lumbago [M54.5] INVALID FOR* More... [...] LEAD ELECTROCARDIOGRAM Observed: 04/28/2018 Status: F Source: [place] 2:55 PM [facility] REPOSITORY [facility] Cardiovascular Services [address] [place] [address] 12 Lead EKG 04/25/18 1910 MR#: [id number] Acct: [id number] Name: CHRISSIE CR Rep #: [id number] : 1980 37 From: Satya Lopez MD [...] ECG Confirmed by DIPIKA ADAMS, SATYA ([id number]), art editor OANH AGARWAL ([id number]) on 04/28/2018 2:55:51 PM Referred By: ISABELLE Confirmed By:SATYA LOPEZ MD 04/28/18 8865 Date Satya Lopez MD CC: Jaun Singh MD; Bill Lou MD Signed EMERGENCY DEPARTMENT Observed: 04/25/2018 Status: F Source: [place] SUMMARY 9:51 PM [facility] REPOSITORY [facility] Medical Records Department [address] [place] [address] Emergency Department Summary 04/25/181919 MR#: [id number] Acct: [id number] Name: CHRISSIE CR Rep #: [id number] : 1980 37 From: Jaun Singh MD PCP: Bill Lou MD Status: DEP ER - ER Visit Summary Date of Service: 04/25/18 Chief Complaint: [place] like everything was going dark History of [...] 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 Bilateral dorsi and plantar flexion equal [...] uncertain etiology. This note was generated with StepLeader dictation software. It may contain incorrect words, [...] problems, contact your Primary Care Provider. Call [facility] ([phone]) or report to the closest Emergency Room. Call 911 if necessary. 04/25/182150 <Electronically signed by Jaun Singh MD> Date Jaun Singh MD Cosigner Signature (If Indicated): Date CC: Bill Lou MD DISCHARGE INSTRUCTION Observed: 04/25/2018 Status: F Source: [place] 9:51 PM [facility] REPOSITORY [facility] Medical Records Department [address] [place] [address] Discharge Instruction 04/25/182023 MR#: [id number] Acct: [id number] Name: CHRISSIE CR Rep #: [id number] : 1980 37 From: Jaun Singh MD PCP: Bill Lou MD Status: [facility] ED Disposition - Plan for ED Patient: [...] your Primary Care Provider. Call [facility] ([phone]) or report to the closest Emergency Room. Call 911 if necessary. 04/25/181 <Electronically signed by Jaun Singh MD> Date Jaun Singh MD Cosigner Signature (If Indicated): Date CC: Bill Lou MD BASIC METABOLIC Collected: 04/25/2018 Status: F Source: [facility] PROFILE (BMP) 7:23 PM [facility] REPOSITORY TYPE CODE TESTS RESULT OUT OF [...] GAP 8 Performed By: #### L500.2500 #### [facility] [address] [place], [place], [address] CBC W/DIFF, AUTOMATED Collected: 04/25/2018 Status: F Source: [place] 7:23 PM [facility] REPOSITORY TYPE CODE TESTS RESULT OUT OF [...] Lymph 2.52 Performed By: #### L100.0100 #### [facility] [address] [place], [address] BEDSIDE GLUCOSE Collected: 04/25/2018 Status: F Source: [place] 7:11 PM [facility] REPOSITORY TYPE CODE TESTS RESULT OUT OF RANGE REFERENCE UNITS LAB L501.080 70-110 mg/dL Normal BEDSIDE GLU 101 Result Comment: Dr Horn Followed MANAGEMENT OF PATIENT CARE PER NURSING PROTOCOL Performed By: #### L501.080 #### [facility] Point [place] [address] PROGRESS Observed: 04/22/2018 Status: COMPLETED Source: [place] 2:59 PM [facility] [place] HNO ID: [id number] Author: Crissy Munroe LPN Service: (none) Author [...] LPN CNNURSE Observed: 04/22/2018 Status: COMPLETED Source: [place] 2:45 PM [facility] [place] Nurse Visit (FAMPWS) CHRISSIE CR ([id number]) 1980 F HPR Date Time Provider Department 04/22/18 2:45 PM ME NURSE SAADIA During your visit today, we [...] Crissy Munroe LPN Referring Provider: BILL LOU [[id number]] Allergies As of Date: 04/22/2018 Noted Allergy [...] PREG NOS [O09.90] INVALID FOR*02/10/2008 MILD/NOS PREECLAMP-ANTEP [MRA0632] INVALID FOR*02/10/2008 ABDOMINAL PAIN LLQ [R10.32] INVALID FOR*02/10/2008 Abnormal mammogram, unspecified [R92.8] INVALID FOR*01/01/2016 Priority: C Status post aortic valve repair [Z98.890] INVALID FOR* Priority: A Myofascial pain [M79.18] INVALID FOR* Priority: D Thoracic sprain and strain [YRG2614] INVALID FOR*07/12/2015 Priority: D Lumbago [M54.5] INVALID [...] (PE PROTOCOL) Observed: 04/14/2018 Status: F Source: [facility] 6:09 PM [place] [address] Patient: CHRISSIE CR Phone#: : [phone] Age: 37 Gender: F Pt. Type: ER Account: [id number] Location: [facility] Ordering: DR. ERIN YBARRA Exam Date: 04/14/2018/17:57 Family Phys: BILL LOU Charge Code: [id number] Physician: Bandera Order #: [id number] DLP Dose#: PROCEDURE: CT CHEST WITH CONTRAST FOR PE COMPARISON: [facility], CT, CHEST PE W CON, 01/11/2017, 11:47. [...] 37 Gender: F Pt. Type: ER Account: [id number] Location: 052 Ordering: DR. ERIN YBARRA Exam Date: 04/14/2018/17:57 Family Phys: BILL LOU Charge Code: 613323 Physician: Bandera Order #: [id number] DLP Dose#: 1. There is no evidence of pulmonary embolus. 2. There has been no significant change since previous exam. Dictated by: Jaime Mason MD on 04/14/2018 at 18:15 Approved by: Jaime Mason MD on 04/14/2018 at 18:15 CBC Collected: 04/14/2018 Status: F Source: [facility] 5:12 PM [facility] REPOSITORY TYPE CODE TESTS RESULT [...] x10EE3/U L Neut # High 7.50 LAB [place] #(LOINC) 0.20 - 1.00 x10EE3/U L [place] # 1.00 LAB EO #(LOINC) 0.00 - 0.50 x10EE3/U L EO # 0.30 LAB Baso #(LOINC) 0.00 - 0.10 x10EE3/U L Baso # 0.10 LAB MANUAL DIFF(LOINC) MANUAL DIFF N/A LAB MORPHOLOGY(INC ) MORPHOLOGY N/A Result Comment: {CD] Performed By: #### [id number] #### [facility],[address] [place] [address] BMP WITH EGFR Collected: 04/14/2018 Status: F Source: [facility] 5:12 PM [facility] REPOSITORY TYPE CODE TESTS RESULT OUT OF RANGE REFERENCE UNITS LAB BMP with eGFR(LOINC) BMP with eGFR Result Comment: BASIC METABOLIC [...] OF AGE AND OLDER. Performed By: #### [id number] #### [place] [address] BNP (B-TYPE NATRIURETIC Collected: 04/14/2018 Status: F Source: [facility] HARTLEYVARSHA PEPTIDE) 5:12 PM [facility] REPOSITORY TYPE CODE TESTS RESULT OUT OF RANGE REFERENCE UNITS LAB BNP(LOINC) 1 - 100 pg/ml BNP 14 Performed By: #### [id number] #### [place] [address] DRUG SCREEN URINE Collected: 04/14/2018 Status: F Source: [facility] 4:57 PM [facility] REPOSITORY TYPE CODE TESTS RESULT [...] TO VERIFY POSITIVE RESULTS. Performed By: #### [id number] #### [place] [address] CHEST 1 VIEW Observed: 04/14/2018 Status: F Source: [facility] HARTLEYNE 4:41 PM [place] [address] Patient: CHRISSIE CR Phone#: : [phone] Age: 37 Gender: F Pt. Type: ER Account: [id number] Location: 052 Ordering: DR. ERIN YBARRA Exam Date: 04/14/2018/16:29 Family Phys: BILL LOU Charge Code: [id number] Physician: Bandera Order #: [id number] DLP Dose#: PROCEDURE: X-RAY CHEST 1 VIEW COMPARISON: [facility], XR, CHEST 1 VIEW, 09/18/2017, 19:51. INDICATIONS: [...] AND DIFFERENTIAL Collected: 04/13/2018 Status: F Source: [place] 4:[address] [facility] REPOSITORY TYPE CODE TESTS [...] k/uL Abs Lymph 1.96 LAB AMONO % [place]% 8.9 LAB AAMONO <0.87 k/uL Abs [place] 0.78 LAB AEOS % Eosin% 3.1 LAB AAEOS <0.46 k/uL Abs Eosin 0.27 LAB ABASO % Baso% 0.8 LAB AABASO <0.11 k/uL Abs Baso 0.07 LAB AUNRBC 0 /100 WBC NRBCs 0.0 LAB ABNRBC <0.01 k/uL Absolute nRBC <0.01 LAB DTYP DTYPE Auto Diff Performed By: #### CBCDIF, WSR, CMP, CRP #### [facility] Results [employer] [address] [place], [place] [address] SED RATE WESTERGREN Collected: 04/13/2018 Status: F Source: [place] 4:00 PM [facility] REPOS[place]ORY TYPE CODE TESTS RESULT OUT OF REFERENCE UNITS RANGE LAB WSR 0-20 mm/hr Sed Rate Westergren 9 Performed By: #### CBCDIF, WSR, CMP, CRP #### [facility] Results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 Source: [place] 5:44 PM [facility] REPOSITORY HNO ID: [id number] Author: Cari (Rn) MARILU Moore Service: Emergency Medicine Author Type: Registered Nurse Type: ED Notes Filed: 01/20/2018 5:45 PM Note Text: Release of medical record sent to [facility], spoke with nursing power reactor supervisor. Message left for nursing power reactor supervisor at [facility] regarding release of pt's medical records CHEST 1 VIEW Observed: 01/20/2018 Status: F Source: [facility] 5:43 PM HEALTH SYSTEM REPOSITORY Performed at [facility] APPROVED BY: Ori Senior [...] URINALYSIS ROUTINE Collected: 01/20/2018 Status: F Source: [facility] 5:20 PM HEALTH SYSTEM REPOSITORY TYPE [...] NEGATIVE LAB LSPG(LOINC 1.005-1.030 ) Specific 1.010 [place], Ur LAB LPHUR(LOIN 5.0-8.0 C) pH,Urine 6.0 LAB LUROB(LOIN 0.0-1.0 EU/dL C) Urobilinogen,Ur 0.2 LAB LLEUK(LOIN Negative C) Abnormal Leukocytes 1+ Esterase LAB LWBCU(LOIN 0-5 /hpf C) WBC, Urine 1-3 LAB LRBCU(LOIN 0-3 /hpf C) RBC,Urine 0-3 LAB LEPIT(LOIN 0-5 /hpf C) Ep Cells Urine 2-5 LAB LBACT(LOIN None C) Abnormal Bacteria Urine FEW Performed By: #### DEYVI #### [facility] [address] [address] URINE DRUG SCREEN Collected: 01/20/2018 Status: F Source: [facility] 5:20 PM HEALTH SYSTEM REPOSITORY TYPE [...] medical diagnostic purposes only. Testing Performed at: [address] [address] Performed By: #### LUDR2 #### [address] [address] HEMOGRAM/DIFF Collected: 01/20/2018 Status: F Source: [facility] 5:10 PM HEALTH SYSTEM REPOSITORY TYPE [...] 1.97 LAB LMONN(LOIN 0.20-1.00 thou/cmm C) Abs. [place] 0.81 LAB LEOSN(LOIN 0.00-0.41 thou/cmm C) Abs. Eosin 0.16 LAB LBASN(LOIN 0.00-0.08 thou/cmm C) Abs. Baso 0.03 Performed By: #### LCBCD #### [facility] [address] [address] COMPREHENSIVE PANEL Collected: 01/20/2018 Status: F Source: [facility] 5:10 PM HEALTH SYSTEM REPOSITORY TYPE CODE TESTS RESULT OUT OF REFERENCE UNITS RANGE LAB MICROWAVE SUPERVISOR(LOINC) 136-145 mEq/L Sodium Blood 140 LAB LK(LOINC) [...] 22 Ratio Performed By: #### LP14 #### [facility] [address] [address] HCG,TOTAL Collected: 01/20/2018 Status: F Source: [facility] 5:10 PM HEALTH SYSTEM REPOSITORY TYPE CODE TESTS RESULT OUT OF RANGE REFERENCE UNITS LAB LHCG(LOINC) mIU/mL HCG,Total <1.0 Result Comment: Male <2 Non- female <6 female 0-1 Week 0 - 50 1-2 Weeks 40 - 300 2-3 Weeks 100 - 1000 3-4 Weeks 500 - 6000 1-2 Months 5000 - 573916 2-3 Months 81569 - 096130 2nd Trimester 3000 - 73761 The concentration of hCG in maternal serum rises rapidly in early . hCG levels less than 25 mIU/mL do NOT exclude . A further sample should be tested after 48 hours if is suspected. Performed By: #### LHCG #### [facility] [address] [address] MDRD EGFR Collected: 01/20/2018 Status: F Source: [facility] 5:10 PM HEALTH SYSTEM REPOSITORY TYPE CODE TESTS RESULT OUT OF RANGE REFERENCE UNITS LAB LGFRF(LOINC >60mL/min/1.73m ) 2 eGFR >60 Result Comment: If the patient is , multiply the result by 1.210. Performed By: #### LGFR #### [address] [address] TROPONIN I Collected: 01/20/2018 Status: F Source: [facility] 5:10 PM HEALTH SYSTEM REPOSITORY TYPE CODE TESTS RESULT OUT OF REFERENCE UNITS RANGE LAB LTRP(LOINC) <=0.07 ng/mL Troponin I <0.03 Performed By: #### LTRP #### [address] [address] D-DIMER QUANTITATIVE Collected: 01/20/2018 Status: F Source: [facility] 5:10 PM HEALTH SYSTEM REPOSITORY TYPE [...] probability model. 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 Most recent echo [...] History provided by: Patient and EMS personnel spanish medical interpreter used: No Chest Pain Pain location: Substernal [...] valve disorders BICUSPID 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, 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 - Arrhythmia - Bicornuate uterus - Chronic [...] Mother - Coronary Artery Disease Mother 46 [place] x 2 - Hyperlipidemia Mother - other [...] Pages of documentes at 1820 ED visit [place] 12/25/17 LE injury. 11/11/17 CTA chest NO PE or other abnormality 07/18/17 CT ab compared with same May 2016 only bilateral ovarian cysts History of knee replacement Neg sleep study in 2016 Normal EEG in 2017 Discharge 02/02/17 from [facility]. Dx chest pain that was described [...] and Reviewed Rhythm: Normal sinus rhythm Rate: [place]: Normal axis Intervals: Normal TX interval QRS Complex: Normal ST Segment: Normal [...] 1924 PROGRESS Observed: 01/01/2018 Status: COMPLETED Source: [place] 3:[address] [facility] REPOSITORY O ID: [id number] Author: Lila Walton (Shireen Gomez Service: (none) Author Type: Physician Material Mover Type: Progress Notes Filed: 01/01/2018 3:30 PM Note Text: 37 year old female with c/o fell down steps in dark. Hurt left leg. Went to [facility] ED and had normal xray. Still painful. Making hip hurt due to walking abnormally. HISTORIES FAMILY HISTORY Problem Relation Age of Onset - Breast Cancer Mother 36 - Stroke Mother - Coronary Artery Disease Mother 46 [place] x 2 - Hyperlipidemia Mother - ovarian [...] valve disorders BICUSPID 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, 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 - Arrhythmia - Bicornuate uterus - Chronic [...] PA-C CNOV Observed: 01/01/2018 Status: COMPLETED Source: [place] 3:00 PM [facility] [place] Office Visit (FAMPWS) CHRISSIE CR ([id number]) 1980 [facility] Date Time Provider Department 01/01/18 3:00 PM Lila GOMEZ) FAMPWS During your visit today, we recorded the following information about you: Temperature Pulse Respiration Blood pressure 98.8 degrees 80/minute 16/minute 110/60 Lila Gomez PA-C 01/01/2018 3:30 PM Signed 37 year old female with c/o fell down steps in dark. Hurt left leg. Went to [facility] ED and had normal xray. Still painful. Making hip hurt due to walking abnormally. HISTORIES FAMILY HISTORY Problem Relation Age of Onset - Breast Cancer Mother 36 - Stroke Mother - Coronary Artery Disease Mother 46 [place] x 2 - Hyperlipidemia Mother - ovarian [...] valve disorders BICUSPID 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, 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 - Arrhythmia - Bicornuate uterus - Chronic [...] reduce swelling and throbbing. Compression with an GOLDIE wrap or elastic brace may feel more [...] PREG NOS [O09.90] INVALID FOR*02/10/2008 MILD/NOS PREECLAMP-ANTEP [WAT2003] INVALID FOR*02/10/2008 ABDOMINAL PAIN LLQ [R10.32] INVALID FOR*02/10/2008 Abnormal mammogram, unspecified [R92.8] INVALID FOR*01/01/2016 Priority: C Status post aortic valve repair [Z98.890] INVALID FOR* Priority: A Myofascial pain [M79.1] INVALID FOR* Priority: D Thoracic sprain and strain [RYR2178] INVALID FOR*07/12/2015 Priority: D Lumbago [M54.5] INVALID [...] reduce swelling and throbbing. Compression with an GOLDIE wrap or elastic brace may feel more [...] EMERGENCY DEPARTMENT Observed: 12/26/2017 Status: F Source: [place] SUMMARY 12:02 AM [facility] REPOSITORY [facility] Medical Records Department [address] [address] Emergency Department Summary 12/25/17 1649 MR#: [id number] Acct: [id number] Name: CHRISSIE CR Rep #: [id number] : 1980 37 From: Lynda Wheatley MD [...] extremity injury This note was generated with StepLeader dictation software. It may contain incorrect words, [...] your Primary Care Provider. Call [facility] ([phone]) or report to the closest Emergency Room. Call 911 if necessary. 12/26/17 0002 <Electronically signed by Lynda Wheatley MD> Date Lynda Wheatley MD Cosigner Signature (If Indicated): Date CC: Bill Lou MD DISCHARGE INSTRUCTION Observed: 12/25/2017 Status: F Source: [place] 5:56 PM [facility] REPOSITORY [facility] Medical Records Department [address] [place] [address] Discharge Instruction 12/25/171754 MR#: [id number] Acct: [id number] Name: CHRISSIE CR Mikhail Rep #: [id number] : 1980 37 From: Lynda Wheatley MD [...] your Primary Care Provider. Call [facility] ([phone]) or report to the closest Emergency Room. Call 911 if necessary. 12/25/17 175 <Electronically signed by Lynda Wheatley MD> Date Lynda Wheatley MD Cosigner Signature (If Indicated): Date CC: Bill Lou MD TIBIA AND FIBULA Observed: 12/25/2017 Status: F Source: ZAK 2 VIEWS 4:23 PM [facility] REPOSIT[facility] Imaging Services [address] [place] [address] Tibia AND Fibula 2 Views MR#: [id number] Acct: [id number] Name: CHRISSIE CR Rep #: [id number] : 1980 F 37 From: Harris Ochoa DO PCP: Bill Lou MD Status: REG ER Study: Tibia AND Fibula 2 Views Date of Exam: 12/25/17 Exam# [id number] Ordering Dr: Lynda Wheatley MD STUDY: X-RAY [...] Harris Ochoa DO at 17:44 EDT Tel [phone], Service support , CC: Lynda Wheatley MD; Bill Lou MD Pain Management Physician: Signed ANKLE MIN 3 VIEWS Observed: 12/25/2017 Status: F Source: [place] 4:23 PM [facility] REPOSIT[facility] Imaging Services [address] [place] [address] Ankle min 3 Views MR#: [id number] Acct: [id number] Name: CHRISSIE CR Rep #: [id number] : 1980 F 37 From: Harris Ochoa DO PCP: Bill Lou MD Status: REG ER Study: Ankle min 3 Views Date of Exam: 12/25/17 Exam# [id number] Ordering Dr: Lynda Wheatley MD STUDY: X-RAY [...] Harris Ochoa DO at 17:46 EDT Tel [phone], Service support , CC: Lynda Wheatley MD; Bill Lou MD Pain Management Physician: Signed MRI LUMBAR SPINE WO Observed: 12/16/2017 Status: F Source: [place] 11:48 AM CLINIC OTHER CAMPUS REPOSITORY * * *Final Report* * * DATE OF EXAM: Dec 16 2017 11:48AM [facility] 0303 - MRI LUMBAR SPINE WO IVCON [...] of spinal canal or neural foraminal stenosis. Pain Management Physician: TREV Transcribe Date/Time: Dec 16 2017 1:08P Dictated by : GELA HENRIQUEZ MD This examination was interpreted and the report reviewed and electronically signed by: GELA HENRIQUEZ MD on Dec 16 2017 1:12PM EST [id number] EMERGENCY REPORT Observed: 12/12/2017 Status: F Source: [facility] 9:53 PM [facility] REPORT NAME ACCOUNT SEX AGE ADMIT DISCHARGE PT MED. RECORD# NUMBER DATE DATE TYPE CHRISSIE CR [id number] F 37 12/01/17 12/01/17 3 L [id number] ROOM: ER DATE OF : 1980 DICTATING [...] CHRISSIE CR Emergency Room Report JOB #: [id number] Transcribed By: jaclyn 12/03/17 12:11 Electronically signed by: SHAILA Kerr D.O. 12/12/17 21:53 Page 2 of 2 CHRISSIE CR Emergency Room Report EMERGENCY REPORT Observed: 12/12/2017 Status: F Source: [facility] 9:53 PM [facility] REPORT NAME ACCOUNT SEX AGE ADMIT DISCHARGE PT MED. RECORD# NUMBER DATE DATE TYPE CHRISSIE CR [id number] F 37 12/01/17 12/01/17 3 L [id number] ROOM: ER DATE OF : 1980 DICTATING [...] DO Page 1 of 2 CHRISSIE CR Emergency Room Report 12/02/17 01:05 JOB #: [id number] Transcribed By: leighann 12/02/17 06:32 Electronically signed by: SHAILA Kerr D.O. 12/12/17 21:52 Page 2 of 2 CHRISSIE CR Emergency Room Report QUANT PAIN PANEL, Collected: 12/12/2017 Status: F Source: [place] 3:41 PM [facility] REPOSITORY TYPE CODE TESTS RESULT OUT OF REFERENCE UNITS RANGE LAB UQCANN <16 ng/mL <16 Cannabinoid, Urine Result Comment: Tetrahydrocannabinol carboxylic acid (THCA) is a metabolite of bmawn-4-dipcbzprpoyejejrvjgv which is the main active component of [...] Urine 6.5 LAB UQSPGR 1.002-1.030 Specific 1.015 [place],Ur LAB UQOXID <200 mg/L Oxidants, <38 Urine LAB SVNI01 <51 mg/L <50 NITRITES,URINE LAB SVCH01 <50 mg/L <10 CHROMATE,URINE LAB SVSQ01 Specimen QUALITY,URINE quality results within acceptable limits. LAB UQNOTE Note This test is for Medical use only. Result Comment: This test was developed and its performance characteristics determined by [facility]'s [facility] Pathology and Laboratory Medicine [place] ([facility]). It has not been cleared or approved by the FDA. -[facility] is regulated under CLIA as qualified to perform high-complexity testing. This test is used for clinical purposes. It should not be regarded as investigational or for research. Performed By: #### UQNTPP #### [facility] [address] [place], [place] [address] CBC AND DIFFERENTIAL Collected: 12/12/2017 Status: F Source: [place] 3:40 PM CL[facility]IC [facility]IN [facility] REPOSITORY TYPE CODE [...] k/uL Abs Lymph 2.07 LAB AMONO % [place]% 8.1 LAB AAMONO <0.87 k/uL Abs [place] 0.77 LAB AEOS % Eosin% 0.7 LAB AAEOS <0.46 k/uL Abs Eosin 0.07 LAB ABASO % Baso% 0.4 LAB AABASO <0.11 k/uL Abs Baso 0.04 LAB AUNRBC 0 /100 WBC NRBCs 0.0 LAB ABNRBC <0.01 k/uL Absolute nRBC <0.01 LAB DTYP DTYPE Auto Diff Performed By: #### CBCDIF, WSR, CMP, TSH, B12, SERFOL, SEPG #### [facility] [address] [id number] SED RATE WESTERGREN Collected: 12/12/2017 Status: F Source: [place] 3:40 PM [facility] [place] [place] TYPE CODE TESTS RESULT OUT OF REFERENCE UNITS RANGE LAB WSR 0-20 mm/hr Sed Rate Westergren 2 Performed By: #### CBCDIF, WSR, CMP, TSH, B12, SERFOL, SEPG #### [facility] [address] [address] COMP METABOLIC PANEL Collected: 12/12/2017 Status: F Source: [place] 3:40 PM [facility] [place] TYPE CODE TESTS RESULT OUT OF [...] mg/dL Low Glucose 68 Result Comment: The [place] Diabetes Association (ADA) provides guidance for cutoff [...] Standards of Medical Care in Diabetes 2016, [place] [employer]. Diabetes Care. 2016.39(Suppl 1). LAB [...] WSR, CMP, TSH, B12, SERFOL, SEPG #### [facility] [address] [place], [place] [id number] TSH Collected: 12/12/2017 Status: F Source: [place] 3:40 PM [facility] [place] TYPE CODE TESTS RESULT OUT OF [...] Clinical Practice Guideline. J Clin Endocrinol Metab, 2012:97:1358-0286. 2. Mychal RAYO. Overview of thyroid disease in . UpToDate. 2016. Accessed on November 10, 2015. Performed By: #### CBCDIF, WSR, CMP, TSH, B12, SERFOL, SEPG #### [facility] [address] [place], [place] [address] VITAMIN B12 Collected: 12/12/2017 Status: F Source: [place] 3:40 PM [facility] [place] [place] TYPE CODE TESTS RESULT OUT OF REFERENCE UNITS RANGE LAB B12 232-1245 pg/mL Vitamin B12 643 Performed By: #### CBCDIF, WSR, CMP, TSH, B12, SERFOL, SEPG #### [facility] [address] [place], [place] [address] FOLATE, SERUM Collected: 12/12/2017 Status: F Source: [place] 3:40 PM [facility] [place] [place] TYPE CODE TESTS RESULT OUT OF REFERENCE UNITS RANGE LAB SERFOL >4.7 ng/mL Unable to Folate, assay. Serum Specimen hemolyzed. Result Comment: Account Credited PRIYANK [phone] Performed By: #### CBCDIF, WSR, CMP, TSH, B12, SERFOL, SEPG #### [facility] [address] [place], [place] [address] PROTEIN ELECTROPHOR. Collected: 12/12/2017 Status: F Source: [place] 3:40 PM [facility] [place] TYPE CODE TESTS RESULT OUT OF [...] Staff Review Reviewed by Arcadio Stoll MD ([phone]) Performed By: #### CBCDIF, WSR, CMP, TSH, B12, SERFOL, SEPG #### [facility] [address] [place], [place] [address] PROGRESS Observed: 12/12/2017 Status: COMPLETED Source: [place] 3:04 PM [facility] HNO ID: [id number] Author: Bill Lou Service: (none) Author Type: [...] valve disorders BICUSPID 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, 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 - Arrhythmia - Bicornuate uterus - Chronic [...] Mother - Coronary Artery Disease Mother 46 ME x 2 - Hyperlipidemia Mother - ovarian [...] prn. CNOV Observed: 12/12/2017 Status: COMPLETED Source: [place] 1:40 PM [facility] [place] Office Visit (FAMPWS) CHRISSIE CR ([id number]) 1980 F [facility] Date Time Provider Department [...] valve disorders BICUSPID 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, Dr Seese Tipping Machine Operator Automatic - Arrhythmia - Bicornuate uterus - Chronic [...] Mother - Coronary Artery Disease Mother 46 ME x 2 - Hyperlipidemia Mother - ovarian [...] [R20.2] Order(s):CBC + DIFF [SQCBCDIF] Order #: [id number] FUTURE COMP METABOLIC PANEL [SQCMP] Order #: [id number] FUTURE TSH BLD [SQTSH] Order #: [id number] FUTURE SED RATE [facility] [SQWSR] Order #: [id number] FUTURE VITAMIN B12 BLOOD [SQB12] Order #: [id number] FUTURE FOLATE SERUM [SQSERFOL] Order #: [id number] FUTURE PROTEIN ELECTROPHORESIS W/INTERP [SQSEPG] Order #: [id number] FUTURE Prescriptions as of 12/12/2017 Sig: TIZANIDINE [...] PREG NOS [O09.90] INVALID FOR*02/10/2008 MILD/NOS PREECLAMP-ANTEP [FJS7168] INVALID FOR*02/10/2008 ABDOMINAL PAIN LLQ [R10.32] INVALID FOR*02/10/2008 Abnormal mammogram, unspecified [R92.8] INVALID FOR*01/01/2016 Priority: C Status post aortic valve repair [Z98.890] INVALID FOR* Priority: A Myofascial pain [M79.1] INVALID FOR* Priority: D Thoracic sprain and strain [WQM9055] INVALID FOR*07/12/2015 Priority: D Lumbago [M54.5] INVALID [...] PT ED Observed: 12/09/2017 Status: COMPLETED Source: [place] 12:52 PM [facility] REPOSITORY HNO ID: [id number] Author: Austin (Rn) MARILU Munoz Service: Nursing Author Type: Registered [...] Signed By: Austin Munoz RN In Department: [facility] SURGERY XR FLUOROSCOPY Observed: 12/09/2017 Status: F Source: [place] 12:24 PM [facility] REPOSITORY * * *Final Report* * * [...] procedure note for details regarding this procedure. Pain Management Physician: PSCB Transcribe Date/Time: Dec 09 2017 1:58P Dictated by : CARROLL VALDOVINOS MD This examination was interpreted and the report reviewed and electronically signed by: CARROLL VALDOVINOS MD on Dec 09 2017 1:58PM EST [id number] OPERATIVE NO Observed: 12/09/2017 Status: COMPLETED Source: [place] 12:[address] [facility] REPOSITORY HNO ID: [id number] Author: Satya May Service: Pain Management Author [...] HISTORY PHYSICAL Observed: 12/09/2017 Status: COMPLETED Source: [place] 12:01 PM [facility] OTHER [facility]AMP[facility] REPOSITORY [facility] ID: [id number] Author: Satya May Service: Pain Management Author [...] valve disorders BICUSPID 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, 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 - Arrhythmia - Bicornuate uterus - Chronic [...] Mother - Coronary Artery Disease Mother 46 ME x 2 - Hyperlipidemia Mother - ovarian [...] PT ED Observed: 12/09/2017 Status: COMPLETED Source: [place] 11:20 AM [facility] OTHER [facility] REPOSITORY HNO ID: [id number] Author: Chas (Rn) MARILU Thompson Service: Nursing [...] Signed By: Chas Thompson RN In Department: [facility] SURGERY KNEE COMPLETE LT MIN Observed: 12/01/2017 Status: F Source: [place] 4 VIEWS 9:28 PM [facility] REPOSITORY [place] [address] Patient: CHRISSIE CR Phone#: : 1980 Age: 37 Gender: F Pt. Type: ER Account: [id number] Location: 052 Ordering: BILL KERR Exam Date: 12/01/2017/21:15 Family Phys: BILL LOU Charge Code: 302417 Physician: Bandera Order #: [id number] DLP Dose#: PROCEDURE: X-RAY KNEE LT COMPLETE 4 VIEWS COMPARISON: [facility], XR, KNEE COMPLETE LT MIN 4 VIEWS, [...] 2V FRONTAL/LAT Observed: 11/27/2017 Status: F Source: [place] 2:55 PM [facility] [place] * * *Final Report* * * [...] rib fracture IMPRESSION: No acute radiographic abnormality. Pain Management Physician: PSCB Transcribe Date/Time: Nov 27 2017 3:38P Dictated by : ORI GAUTHIER MD This examination was interpreted and the report reviewed and electronically signed by: ORI GAUTHIER MD on Nov 27 2017 3:38PM EST [id number] PROGRESS Observed: 11/27/2017 Status: COMPLETED Source: [place] 2:49 PM [facility] [place] HNO ID: [id number] Author: Lucie Elizondo (Rt) Odessa Beal Service: (none) Author Type: Instant Powder Supervisor Type: Progress Notes Filed: 11/27/2017 2:56 PM [...] PERIPHERAL IV DATA: Not applicable SIGNED BY: Lucie Mikhail Beal, RT November 27, 2017 2:49 PM CNSHELBIE Observed: 11/27/2017 Status: COMPLETED Source: [place] 2:00 PM [facility] [place] Office Visit (FAMPWS) CHRISSIE CR ([id number]) 1980 F HPR Date Time Provider Department 11/27/17 2:00 PM CINTHIA NICOLAS (FILIBERTO) FAMPWS During your visit today, we [...] as needed for worsening/no improvement. Cinthia Nicolas APRN.FILIBERTO Nicolas APRN.CNP 11/27/2017 2:16 PM Signed 1. Get [...] 1 EachRfl: 0 XR CHEST 2V FRONTAL/LAT [[id number]] Order #: [id number] FUTURE doxycycline monohydrate (MONODOX) 100 mg capsuleTake [...] PREG NOS [O09.90] INVALID FOR*02/10/2008 MILD/NOS PREECLAMP-ANTEP [MSZ0333] INVALID FOR*02/10/2008 ABDOMINAL PAIN LLQ [R10.32] INVALID FOR*02/10/2008 Abnormal mammogram, unspecified [R92.8] INVALID FOR*01/01/2016 Priority: C Status post aortic valve repair [Z98.890] INVALID FOR* Priority: A Myofascial pain [M79.1] INVALID FOR* Priority: D Thoracic sprain and strain [MRB4263] INVALID FOR*07/12/2015 Priority: D Lumbago [M54.5] INVALID [...] 11/27/17 PROGRESS Observed: 11/27/2017 Status: COMPLETED Source: [place] 1:59 PM [facility] REPOSITORY HNO ID: [id number] Author: Cinthia Velasquez) Fidencio Service: (none) Author [...] as needed for worsening/no improvement. Cinthia Nicolas APRN.[facility] EMERGENCY DEPARTMENT Observed: 11/24/2017 Status: F Source: [place] SUMMARY 6:[address] [facility] Medical Records Department [address] [place] [address] Emergency Department Summary 11/24/17 0207 MR#: [id number] Acct: [id number] Name: CHRISSIE CR Rep #: [id number] : 1980 37 From: Jaun Singh MD [...] Tobacco abuse This note was generated with StepLeader dictation software. It may contain incorrect words, [...] your Primary Care Provider. Call [facility] ([phone]) or report to the closest Emergency Room. Call 911 if necessary. 11/24/17 0659 <Electronically signed by Jaun Singh MD> Date Jaun Singh MD Cosigner Signature (If Indicated): Date CC: Bill Lou MD DISCHARGE INSTRUCTION Observed: 11/24/2017 Status: F Source: [place] 6:59 AM [facility] REPOSITORY [facility] Medical Records Department [address] [place] [address] Discharge Instruction 11/24/17 0209 MR#: [id number] Acct: [id number] Name: CHRISSIE CR Rep #: [id number] : 1980 37 From: Jaun Singh MD [...] problems, contact your Primary Care Provider. Call [facility] ([phone]) or report to the closest Emergency Room. Call 911 if necessary. 11/24/17 0659 <Electronically signed by Jaun Singh MD> Date Jaun Singh MD Cosigner Signature (If Indicated): Date CC: Bill Lou MD XR CHEST 2 VIEWS Observed: 11/22/2017 Status: F Source: [facility] 8:59 PM [facility] REPOSITORY ORIGINAL XR CHEST 2 VIEWS CLINICAL [...] EMERGENCY DEPARTMENT Observed: 11/19/2017 Status: F Source: [place] 1:03 AM [facility] REPOSITORY [facility] Medical Records Department [address] [place] [address] Emergency Department Summary 11/18/17 2331 MR#: [id number] Acct: [id number] Name: CHRISSIE CR Rep #: [id number] : 1980 37 From: Neil Casiano MD [...] be discharged instructions to 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 Disposition: To home in improved and stable condition. Impression: 1. Acute on chronic back pain. This note was generated with StepLeader dictation software. It may contain incorrect words, [...] problems, contact your Primary Care Provider. Call [facility] ([phone]) or report to the closest Emergency Room. Call 911 if necessary. 11/19/17 0103 <Electronically signed by Neil Casiano MD> Date Neil Casiano MD Cosigner Signature (If Indicated): Date CC: Bill Lou MD HOSP Observed: 11/17/2017 Status: COMPLETED Source: [place] 12:00 AM [facility]IN[facility] OTHER CAMPUS REPOSITORY Patient:Chrissie Cr MRN: <[id number]> Height:5' 2.992(1.6 m) Weight:186 lb (84.369 kg) [...] COMPOUNDED PRESCRIPTION Admission/Clinic Administered Medications as of 12/09/17: NaCl 0.9% iv infusion Problem List: Aortic [...] for the following basenames: K,HCT Progress Notes ([facility]): Geena Gates SECURITY REPRESENTATIVE 12/03/2017 2:42 PM Signed Message from Q Interactive: Chrissie Cr would like a refill of the following medications: tiZANidine (ZANAFLEX) 4 mg tablet [Bill Lou MD] Preferred pharmacy: [facility] [address] [place] [address] Progress Notes ([facility]): Jasmin Stock SECURITY REPRESENTATIVE 12/01/2017 12:41 PM Signed Message from [employer]: Chrissie Cr would like a refill of the following medications: Promethazine-DM (PHENERGAN-DM) 6.25-15 mg/5 mL syrup [Cinthia Nicolas APRN.CNP] Preferred pharmacy: [facility] [address] [place] [address] Cinthia Nicolas APRN.CNP 12/01/2017 5:07 PM Signed Script sent. Can close encounter if patient aware. Cinthia Nicolas APRN.CNP PROGRESS Observed: 11/14/2017 Status: COMPLETED Source: [place] 11:30 AM [facility] [place] O ID: [id number] Author: Satya May Service: (none) Author Type: Physician Type: Progress Notes Filed: 11/14/2017 3:30 PM Note Text: [facility] PAIN MANAGEMENT OFFICE NOTE DATE: November 14, [...] is not currently receiving medications through the [facility]. She is not having difficulty with her [facility] medications. The medications are partially effective. The [...] valve disorders BICUSPID 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, 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 - Arrhythmia - Bicornuate uterus - Chronic [...] Urine pH, Pain Anaya 4-10 06/12/2015 Specific [place],Ur Pain Anaya 1.002 06/12/2015 Oxidants,Ur Negative 06/12/2015 [...] for SI flare up. Pt aware that seal skinner opoid therapy not recommended Signed Prescriptions Disp [...] of the patient and have reviewed the PA/LIMNOLOGY TEACHER note. My hunt findings include: History is as above Exam is as above Assessment/Plan are as outlined. Other additions or changes: None Signature: Satya May MD Date: 11/14/2017 Time: 3:28 PM cc: Dr. Bill Lou MD cc: SELF Phone: N/A Fax: Results of consultation to be transmitted via electronic medical record for those providers who practice within [facility] [place] or with access to [employer] via [facility] Connect, or via letter. CNOV Observed: 11/14/2017 Status: COMPLETED Source: [place] 11:10 AM [facility] [place] Office Visit (PNMDNA) CHRISSIE CR ([id number]) 1980 F HPR Date Time Provider Department 11/14/17 11:10 AM SATYA MAY PNNINFA During your visit today, we recorded the following information about you: Pulse Height 58/minute 1.6 m Satya May MD 11/14/2017 3:30 PM Signed [facility] PAIN MANAGEMENT OFFICE NOTE DATE: November 14, [...] is not currently receiving medications through the [facility]. She is not having difficulty with her [facility] medications. The medications are partially effective. The [...] valve disorders BICUSPID 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, 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 - Arrhythmia - Bicornuate uterus - Chronic [...] Urine pH, Pain Anaya 4-10 06/12/2015 Specific [place],Ur Pain Anaya 1.002 06/12/2015 Oxidants,Ur Negative 06/12/2015 [...] for SI flare up. Pt aware that detention opoid therapy not recommended Signed Prescriptions Disp [...] of the patient and have reviewed the PA/LIMNOLOGY TEACHER note. My hunt findings include: History is as above Exam is as above Assessment/Plan are as outlined. Other additions or changes: None Signature: Satya May MD Date: 11/14/2017 Time: 3:28 PM cc: Dr. Bill Lou MD cc: SELF Phone: N/A Fax: Results of consultation to be transmitted via electronic medical record for those providers who practice within [facility] [place] or with access to [employer] via MD Connect, or via letter. 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 Cardiovascular Services [address] [address] 12 Lead EKG 11/11/17 0120 MR#: [id number] Acct: [id number] Name: CHRISSIE CR Rep #: [id number] : 1980 37 From: Ross Harris MD [...] rhythm Prolonged QT Abnormal ECG Confirmed by CIERA ADAMS, ROSS ([id number]), art editor OANH AGARWAL ([id number]) on 11/13/2017 8:57:35 AM Referred By: NEEL Confirmed By:ROSS HARRIS MD 11/13/17 0857 Date Ross Harris MD CC: Schuyler Villarreal MD; Bill Lou MD Signed EMERGENCY DEPARTMENT Observed: 11/12/2017 Status: F Source: [place] SUMMARY 9:[address] [facility] Medical Records Department [address] [place] [address] Emergency Department Summary 11/12/171948 MR#: [id number] Acct: [id number] Name: CHRISSIE CR Rep #: [id number] : 1980 37 From: Topher Colon MD [...] skeletal etiology This note was generated with StepLeader dictation software. It may contain incorrect words, [...] problems, contact your Primary Care Provider. Call [facility] ([phone]) or report to the closest Emergency Room. Call 911 if necessary. 11/12/172106 <Electronically signed by Topher Colon MD> Date Topher Colon MD Cosigner Signature (If Indicated): Date CC: Bill Lou MD PROGRESS Observed: 11/12/2017 Status: COMPLETED Source: [place] 3:[address] [facility] REPOSITORY O ID: [id number] Author: Lila Walton (Ashley) Jason Service: (none) Author Type: Physician Material Mover Type: Progress Notes Filed: 11/12/2017 3:16 PM [...] Mother - Coronary Artery Disease Mother 46 ME x 2 - Hyperlipidemia Mother - ovarian [...] valve disorders BICUSPID 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, 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 - Arrhythmia - Bicornuate uterus - Chronic [...] with Dr. May if not improving M ASHLEY Mann Observed: 11/12/2017 Status: COMPLETED Source: [place] 2:00 PM [facility] [place] Office Visit (FAMPWS) SHAYECHRISSIE Mikhail ([id number]) 1980 F HPR Date Time Provider Department 11/12/17 2:00 PM Lila GOMEZ) FAMPWS During your visit today, we recorded the following information about you: Temperature Pulse Respiration Blood pressure 98.7 degrees 68/minute 20/minute 144/92 Weight 84.4 kg M Anton Gomez PA-C 11/12/2017 3:16 PM Signed 37 [...] Mother - Coronary Artery Disease Mother 46 ME x 2 - Hyperlipidemia Mother - ovarian [...] valve disorders BICUSPID 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, 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 - Arrhythmia - Bicornuate uterus - Chronic [...] back ER F/U [41] Cmt: [facility] ER 11/11/17 for chest pain. Is on [...] PREG NOS [O09.90] INVALID FOR*02/10/2008 MILD/NOS PREECLAMP-ANTEP [XJI1283] INVALID FOR*02/10/2008 ABDOMINAL PAIN LLQ [R10.32] INVALID FOR*02/10/2008 Abnormal mammogram, unspecified [R92.8] INVALID FOR*01/01/2016 Priority: C Status post aortic valve repair [Z98.890] INVALID FOR* Priority: A Myofascial pain [M79.1] INVALID FOR* Priority: D Thoracic sprain and strain [URT4440] INVALID FOR*07/12/2015 Priority: D Lumbago [M54.5] INVALID [...] 11/12/2017 Status: F Source: [place] 1:[address] [facility] Medical Records Department [address] [place] [address] Downtime Report MR#: [id number] Acct: [id number] Name: SHAYECHRISSIE Mikhail Rep #: [id number] : 1980 37 From: Tamir Agarwal MD PCP: Bill Lou MD Status: DEP ER This patient was seen during an EMR downtime October 27, 2017 - November 03, 2017. This patient may have a combination of paper and electronic documentation or all paper documentation. All documentation is viewable within the e-chart portion of [employer] for each patient visit. EMERGENCY DEPARTMENT Observed: 11/11/2017 Status: F Source: [place] SUMMARY 7:[address] [facility] Medical Records Department [address] [place] [address] Emergency Department Summary 11/11/17 0551 MR#: [id number] Acct: [id number] Name: SHAYECHRISSIE L Rep #: [id number] : 1980 37 From: Schuyler Villarreal MD [...] wall pain This note was generated with StepLeader dictation software. It may contain incorrect words, [...] problems, contact your Primary Care Provider. Call [facility] [facility] ([phone]) or report to the closest Emergency Room. Call 911 if necessary. 11/11/17 0729 <Electronically signed by Schuyler Villarreal MD> Date Schuyler Villarreal MD Cosigner Signature (If Indicated): Date CC: Bill Lou MD DISCHARGE INSTRUCTION Observed: 11/11/2017 Status: F Source: [place] 7:29 AM [facility] REPOSITORY [facility] Medical Records Department [address] [address] Discharge Instruction 11/11/17 0553 MR#: [id number] Acct: [id number] Name: CHRISSIE CR Rep #: [id number] : 1980 37 From: Schuyler Villarreal MD PCP: Bill Lou MD Status: DEP ER ED Disposition - Plan for ED Patient: Chief Complaint: Chest Pain Instructions: ED Chest Pain Critical access hospital Prescriptions: Ibuprofen [Motrin] 800 mg PO TID PRN PRN #20 tab PRN Reason: Pain Referrals: Bill Lou MD [Primary Care Provider] - What to do if you have Problems For any increased pain, shortness of breath, bleeding, nausea or vomiting, chest pain, or any unexpected problems, contact your Primary Care Provider. Call [facility] ([phone]) or report to the closest Emergency Room. Call 911 if necessary. 11/11/17 0729 <Electronically signed by Schuyler Villarreal MD> Date Schuyler Villarreal MD Cosigner Signature (If Indicated): Date CC: Bill Lou MD CBC W/DIFF, AUTOMATED Collected: 11/11/2017 Status: F Source: [place] 3:17 AM [facility] REPOSITORY TYPE CODE TESTS RESULT OUT OF [...] Lymph 1.95 Performed By: #### L100.0100 #### [facility] [address] [place], [place], [id number] PROTHROMBIN TIME W/INR Collected: 11/11/2017 Status: F Source: [place] 3:17 AM [facility] REPOSITORY TYPE CODE TESTS RESULT OUT OF RANGE REFERENCE UNITS LAB L300.4150 11.7-14.9 SECONDS Normal PROTIME 13.7 LAB L300.4200 Normal INR 1.1 Performed By: #### L300.3900, L300.4310 #### [facility] [address] [facility] [place], [place], [address] PARTIAL THROMBOPLAST Collected: 11/11/2017 Status: F Source: [place] TIME 3:17 AM [facility] REPOSITORY TYPE CODE TESTS RESULT OUT OF RANGE REFERENCE UNITS LAB L300.4310 24.1-36.2 Seconds Normal PTT 24.7 Performed By: #### L300.3900, L300.4310 #### [facility] [address] [place], [place], [address] BASIC METABOLIC Collected: 11/11/2017 Status: F Source: [place] PROFILE (BMP) 3:17 AM [facility] REPOSITORY TYPE CODE TESTS RESULT OUT OF [...] 10 Performed By: #### L500.2500, L501.4010 #### [facility] [address] [facility] [address] [place], [place], [address] TROPONIN-I Collected: 11/11/2017 Status: F Source: [place] 3:17 AM [facility] REPOSITORY TYPE CODE TESTS RESULT OUT OF RANGE REFERENCE UNITS LAB L501.4010 <0.045 ng/mL Normal < 0.015 TROPONIN-I Result Comment: TROPONIN-I EXPECTED VALUES <0.045 Negative 0.045 - 0.590 Consistent with Cardiac Damage > OR = 0.600 Critical Value Not every elevated troponin is indicative of ME. These values should be used with clinical judgement in examining the patient's clinical picture for diagnosis. To establish a diagnosis of ME versus myocardial injury, there must be a demonstrated rise and/or fall in the troponin values, in addition to ischemic symptoms, EKG changes, new regional wall motion abnormality, and/or angiographical evidence. PLEASE NOTE: REFERENCE RANGES EDITED 17 Performed By: #### L500.2500, L501.4010 #### [facility] [address] [place] [place], [address] ,SERUM,HCG QUALI. Collected: Status: F Source: [place] 11/11/2017 3:17 AM [facility] REPOSITORY TYPE CODE TESTS RESULT OUT OF REFERENCE UNITS RANGE LAB L700.7000 0-9 Nonpreg Negative Normal HCGSQUAL NEGATIVE LAB L700.6700 =>Qualitative mIU/mL Normal HCG Qual < 1 triggr Performed By: #### L700.6800 #### [facility] [address] [place], [address] CTA CHEST W/WO Observed: 11/11/2017 Status: F Source: [place] CONTRAST 2:26 AM [facility] REPOSITORY [facility] Imaging Services [address] [place] [address] CTA Chest W/WO Contrast MR#: [id number] Acct: [id number] Name: CHRISSIE CR Mikhail Rep #: [id number] : 1980 F 37 From: Francisco You PCP: Bill Lou MD Status: REG ER Study: CTA Chest W/WO Contrast Date of Exam: 11/11/17 Exam# [id number] Ordering Dr: Schuyler Villarreal MD STUDY: CTA [...] CC: Schuyler Villarreal MD; Bill Lou MD Pain Management Physician: Signed EMERGENCY DEPARTMENT Observed: 11/04/2017 Status: F Source: [place] SUMMARY 1:[address] [facility] Medical Records Department [address] [place] [address] Emergency Department Summary 11/04/17 0055 MR#: [id number] Acct: [id number] Name: CHRISSIE CR Rep #: [id number] : 1980 37 From: Topher Colon MD [...] of fibromyalgia This note was generated with StepLeader dictation software. It may contain incorrect words, [...] your Primary Care Provider. Call [facility] ([phone]) or report to the closest Emergency Room. Call 911 if necessary. 11/04/17 0106 <Electronically signed by Topher Colon MD> Date Topher Colon MD Cosigner Signature (If Indicated): Date CC: Bill Lou MD URINALYSIS, COMPLETE Collected: 11/04/2017 Status: F Source: [place] 12:30 AM [facility] REPOSITORY Order Comment: Order Date: 11/04/17 How [...] URINE SEEN Performed By: #### L400.0001 #### [facility] [address] [place], [place], [address] CBC W/DIFF, AUTOMATED Collected: 11/04/2017 Status: F Source: [place] 12:05 AM [facility] REPOSITORY TYPE CODE TESTS RESULT OUT OF [...] Lymph 1.80 Performed By: #### L100.0100 #### [facility] [address] [place], [place], [address] ,SERUM,HCG QUALI. Collected: Status: F Source: [place] 11/04/2017 12:05 AM [facility] REPOSITORY TYPE CODE TESTS RESULT OUT OF REFERENCE UNITS RANGE LAB L700.6700 =>Qualitative mIU/mL Normal HCG Qual < 1 triggr LAB L700.7000 0-9 Nonpreg Negative Normal HCGSQUAL NEGATIVE Performed By: #### L700.6800 #### [facility] [address] [place], [address] PROGRESS Observed: 10/30/2017 Status: COMPLETED Source: [place] 8:[address] [facility] REPOSITORY HNO ID: [id number] Author: Francisco Mae Service: (none) Author Type: Physician Type: Progress Notes Filed: 10/30/2017 12:48 PM Note Text: Francisco Mae MD Department of Orthopaedics [facility] [address] [facility] [address] Dept: [phone] Dept October 30, 2017 CHIEF COMPLAINT: Established [...] anxiety) This note was partially generated using StepLeader voice recognition system, and there may be some incorrect words, spellings, and punctuation that were not noted in checking the note before saving. Francisco Mae MD PROGRESS Observed: 10/30/2017 Status: COMPLETED Source: [place] 8:34 AM [facility] [place] [place] HNO ID: [id number] Author: Akilah Krause Ma Service: (none) Author [...] pain in her left knee. Seen at [facility] and had x-rays done. She was to hand carry films but was told her there were no changes in her x-rays that were [facility] SYSTEM. States she was given a knee immobilizer and has been wearing except today she is wearing her DonJoy hinged knee brace to the appointment. Patient arrives in the office with crutches but not really using them as she is ambulating. Patient is also wearing flip flops with her crutches. Taking Daypro for her pain and helps some. CNOV Observed: 10/30/2017 Status: COMPLETED Source: [place] 8:00 AM [facility] [place] Office Visit (LISA) CHRISSIE CR ([id number]) 1980 F HPR Date Time Provider Department [...] pain in her left knee. Seen at [facility] and had x-rays done. She was to hand carry films but was told her there were no changes in her x-rays that were done at [facility]. States she was given a knee immobilizer [...] Francisco Mae MD Department of Orthopaedics Orthopaedics [address] [place] [address] Dept: [phone] Dept October 30, 2017 CHIEF COMPLAINT: Established [...] anxiety) This note was partially generated using StepLeader voice recognition system, and there may be [...] PREG NOS [O09.90] INVALID FOR*02/10/2008 MILD/NOS PREECLAMP-ANTEP [RWJ3284] INVALID FOR*02/10/2008 ABDOMINAL PAIN LLQ [R10.32] INVALID FOR*02/10/2008 Abnormal mammogram, unspecified [R92.8] INVALID FOR*01/01/2016 Priority: C Status post aortic valve repair [Z98.890] INVALID FOR* Priority: A Myofascial pain [M79.1] INVALID FOR* Priority: D Thoracic sprain and strain [YKP4617] INVALID FOR*07/12/2015 Priority: D Lumbago [M54.5] INVALID [...] Status: F Source: [place] 7:51 AM [facility] [place] [facility] REPORT NAME ACCOUNT SEX AGE ADMIT DISCHARGE PT MED. RECORD# NUMBER DATE DATE TYPE CHRISSIE CR [id number] F 37 10/19/17 10/19/17 3 L [id number] ROOM: ER DATE OF : 1980 DICTATING [...] Matthew Lancaster MD 10/19/17 14:58 JOB #: [id number] Transcribed By: jordan 10/20/17 07:57 Electronically signed by: SHAILA Lancaster M.D. 10/27/17 07:48 Page 2 of 2 CHRISSIE CR Emergency Room Report EMERGENCY DEPARTMENT Observed: 10/23/2017 Status: F Source: [place] 12:48 AM [facility] [place] REPOSIT[place] [facility] Medical Records Department [address] [place] [address] Emergency Department Summary 10/22/17 2342 MR#: [id number] Acct: [id number] Name: CHRISSIE CR Rep #: [id number] : 1980 37 From: Neil Casiano MD [...] Cervical strain. This note was generated with StepLeader dictation software. It may contain incorrect words, [...] your Primary Care Provider. Call [facility] ([phone]) or report to the closest Emergency Room. Call 911 if necessary. 10/23/17 0048 <Electronically signed by Neil Casiano MD> Date Neil Casiano MD Cosigner Signature (If Indicated): Date CC: Bill Lou MD KNEE COMPLETE LT MIN Observed: 10/19/2017 Status: F Source: [place] 4 VIEWS 2:35 PM [place] [address] Patient: CHRISSIE CR Phone#: : 1980 Age: 37 Gender: F Pt. Type: ER Account: [id number] Location: 052 Ordering: MATTHEW LANCASTER Exam Date: 10/19/2017/14:23 Family Phys: BILL LOU Charge Code: 211703 Physician: Bandera Order #: [id number] DLP Dose#: PROCEDURE: X-RAY KNEE LT COMPLETE 4 VIEWS COMPARISON: [facility], XR, KNEE COMPLETE LT MIN 4 VIEWS, [...] 18:42 PROGRESS Observed: 10/15/2017 Status: COMPLETED Source: [place] 11:35 AM [facility] [place] HNO ID: [id number] Author: Marleni Carlos (Pa) Service: (none) Author Type: Physician Material Mover Type: Progress Notes Filed: 10/15/2017 11:51 AM Note Text: Marleni Carlos PA-C Department of Orthopaedics Orthopaedics [address] [facility] [address] Dept: [phone] Dept October 15, 2017 CHIEF COMPLAINT: Established Patient (Left knee injury - X- rays [facility] 10/09/17 - Last seen 12/12/16 left knee pain S/P Bilateral TKA) HPI: Ms. Chrissie Cr is a 37 year old female. She presents with 6 out of 10 continuous left knee pain after falling while walking up the stairs on , October 09. Patient states that she twisted while falling forward onto the stairs to avoid hitting her head. She said that she landed on her left knee and an aggressive area. The patient was seen at [facility] emergency room she had an x-ray [...] dorsalis pedis IMAGIN view left knee x-ray [facility] October 09, 2017. Left knee total arthroplasty components remain in satisfactory position without evidence of loosening. No fracture or dislocation is noted. No edema or effusions noted. Supporting Subjective Information Below: Past Medical History: PAST MEDICAL HISTORY Diagnosis Date - Abnormal glandular Papanicolaou smear of cervix - Anxiety NO BENZODIAZEPINES, See TE 06/16/15 - 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 disorders BICUSPID 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, 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 - Arrhythmia - Bicornuate uterus - Chronic [...] Mother - Coronary Artery Disease Mother 46 ME x 2 - Hyperlipidemia Mother - ovarian [...] anxiety) This note was partially generated using StepLeader voice recognition system, and there may be some incorrect words, spellings, and punctuation that were not noted in checking the note before saving. Marleni Carlos PA-C PROGRESS Observed: 10/15/2017 Status: COMPLETED Source: [place] 10:[address] [facility] [place] REPOSITORY [facility] ID: [id number] Author: Akilah Krause Ma Service: (none) Author Type: (none) Type: Progress Notes Filed: 10/15/2017 11:51 AM Note Text: Patient presents with: Established Patient: Left knee injury - X-rays [facility] 10/09/17 - Last seen 12/12/16 left knee [...] she was twisting. Seen at [facility] ER and given a knee immobilizer. Has swelling in her knee only if the immobilizer is off. Given Percocet for pain and states she took her last one today. States it was helping with her pain. Patient using crutches to ambulate. X-rays done at [facility] on 10/09/17. CNOV Observed: 10/15/2017 Status: COMPLETED Source: [place] 10:15 AM [facility] [place] Office Visit (ORTHWS) CHRISSIE CR ([id number]) 1980 F HPR Date Time Provider Department 10/15/17 10:15 AM MARLENI CARLOS) ORTHRHODA During your visit today, we recorded the following information about you: Akilah Krause Aquiles 10/15/2017 11:51 AM Signed Patient presents with: Established Patient: Left knee injury - X-rays [facility] 10/09/17 - Last seen 12/12/16 left knee [...] she was twisting. Seen at [facility] ER and given a knee immobilizer. Has swelling in her knee only if the immobilizer is off. Given Percocet for pain and states she took her last one today. States it was helping with her pain. Patient using crutches to ambulate. X-rays done at [facility] on 10/09/17. Marleni Carlos PA-C 10/15/2017 11:51 AM Signed Marleni Carlos PA-C Department of Orthopaedics Orthopaedics [address] [facility] [address] Dept: [phone] Dept October 15, 2017 CHIEF COMPLAINT: Established Patient (Left knee injury - X- rays [facility] 10/09/17 - Last seen 12/12/16 left knee [...] aggressive area. The patient was seen at [facility] emergency room she had an x-ray [...] dorsalis pedis IMAGIN view left knee x-ray [facility] October 09, 2017. Left knee total arthroplasty components remain in satisfactory position without evidence of loosening. No fracture or dislocation is noted. No edema or effusions noted. Supporting Subjective Information Below: Past Medical History: PAST MEDICAL HISTORY Diagnosis Date - Abnormal glandular Papanicolaou smear of cervix - Anxiety NO BENZODIAZEPINES, See TE 06/16/15 - 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 disorders BICUSPID 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, 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 - Arrhythmia - Bicornuate uterus - Chronic [...] Mother - Coronary Artery Disease Mother 46 [place] x 2 - Hyperlipidemia Mother - ovarian [...] anxiety) This note was partially generated using StepLeader voice recognition system, and there may be [...] Left knee injury - X-rays [facility] 10/09/17 - Last seen 12/12/16 left knee [...] PREG NOS [O09.90] INVALID FOR*02/10/2008 MILD/NOS PREECLAMP-ANTEP [LOE3588] INVALID FOR*02/10/2008 ABDOMINAL PAIN LLQ [R10.32] INVALID FOR*02/10/2008 Abnormal mammogram, unspecified [R92.8] INVALID FOR*01/01/2016 Priority: C Status post aortic valve repair [Z98.890] INVALID FOR* Priority: A Myofascial pain [M79.1] INVALID FOR* Priority: D Thoracic sprain and strain [VVU6454] INVALID FOR*07/12/2015 Priority: D Lumbago [M54.5] INVALID [...] EMERGENCY DEPARTMENT Observed: 10/09/2017 Status: F Source: [place] 10:28 PM [facility] REPOSITORY [facility] Medical Records Department [address] [place] [address] Emergency Department Summary 10/09/17 2225 MR#: [id number] Acct: [id number] Name: CHRISSIE CR Rep #: [id number] : 1980 37 From: Whitley Chiu DO [...] hip contusion] This note was generated with StepLeader dictation software. It may contain incorrect words, [...] problems, contact your Primary Care Provider. Call [facility] ([phone]) or report to the closest Emergency Room. Call 911 if necessary. 10/09/172227 <Electronically signed by Whitley Chiu DO> Date Whitley Chiu DO Cosigner Signature (If Indicated): Date CC: Bill Lou MD DISCHARGE INSTRUCTION Observed: 10/09/2017 Status: F Source: [place] 10:28 PM [facility] REPOSITORY [facility] Medical Records Department [address] [place] [address] Discharge Instruction 10/09/172227 MR#: [id number] Acct: [id number] Name: CHRISSIE CR Rep #: [id number] : 1980 37 From: Whitley Chiu DO [...] your Primary Care Provider. Call [facility] ([phone]) or report to the closest Emergency Room. Call 911 if necessary. 10/09/17 2228 <Electronically signed by Whitley Chiu DO> Date Whitley Chiu DO Cosigner Signature (If Indicated): Date CC: Bill Lou MD KNEE 3 VIEWS Observed: 10/09/2017 Status: F Source: [place] 9:17 PM [facility] REPOSITORY [facility] Imaging Services [address] [place] [address] Knee 3 Views MR#: [id number] Acct: [id number] Name: CHRISSIE CR Rep #: [id number] : 1980 F 37 From: Jaun Decker MD PCP: Bill Lou MD Status: REG ER Study: Knee 3 Views Date of Exam: 10/09/17 Exam# [id number] Ordering Dr: Whitley Chiu DO STUDY: X-RAY [...] CC: Whitley Chiu DO; Bill Lou MD Pain Management Physician: Signed HIP 2-3 VIEWS WITH Observed: 10/09/2017 Status: F Source: [place] PELVIS 9:17 PM [facility] REPOSITORY [facility] Imaging Services [address] [place] [address] Hip 2-3 Views with Pelvis MR#: [id number] Acct: [id number] Name: CHRISSIE CR Rep #: [id number] : 1980 F 37 From: Jaun Decker MD PCP: Bill Lou MD Status: REG ER Study: Hip 2-3 Views with Pelvis Date of Exam: 10/09/17 Exam# [id number] Ordering Dr: Whitley Chiu DO STUDY: X-RAY [...] CC: Whitley Chiu DO; Bill Lou MD Pain Management Physician: Signed PROGRESS Observed: 10/08/2017 Status: COMPLETED Source: [place] 2:[address] [facility] REPOSITORY HNO ID: [id number] Author: Geraldine Jauregui Service: (none) Author Type: Nurse Practitioner Type: Progress Notes Filed: 10/08/2017 4:02 PM Note Text: SUBJECTIVE: Chrissie Cr presents to [facility] Pain Management Department for a followup [...] Quant, Urine <5 06/12/2015 Amphetamine Quant, Urine <06/12/2015 Methamphetamine Quant, Urine <8 06/12/2015 Buprenorphine Quant, Urine <20 06/12/2015 Norbuprenorphine Quant, Urine <20 06/12/2015 Methadone Quant, Urine <16 06/12/2015 EDDP Quant, Urine <06/12/2015 Tramadol Quant, Urine <25 06/12/2015 Desmethyltramadol Quant, Urine <20 06/12/2015 Fentanyl Quant, Urine <6 06/12/2015 Norfentanyl Quant, Urine <06/12/2015 Codeine Quant, Urine <11 06/12/2015 Morphine Quant, Urine <10 06/12/2015 Dihydrocodeine Quant, Urine <5 06/12/2015 Hydrocodone Quant, Urine <8 06/12/2015 Oxycodone Quant, Urine <06/12/2015 Hydromorphone Quant, Urine <5 06/12/2015 Oxymorphone Quant, Urine 250 (H) 06/12/2015 Creatinine,Ur Pain Anaya 10-20 06/12/2015 Urine pH, Pain Anaya 4-10 06/12/2015 Specific [place],Ur Pain Anaya 1.002 06/12/2015 Oxidants,Ur Negative 06/12/2015 [...] 2017 CNOV Observed: 10/08/2017 Status: COMPLETED Source: [place] 1:10 PM [facility] [place] Office Visit (PNMDNA) CHRISSIE CR ([id number]) 1980 F HPR Date Time Provider Department 10/08/17 1:10 PM GERALDINE JAUREGUI (FILIBERTO) PNMDNA During your visit today, we recorded the following information about you: Pulse Weight 79/minute 85.3 kg Geraldine Jauregui APRN.FILIBERTO 10/08/2017 4:02 PM Signed SUBJECTIVE: Chrissie Cr presents to [facility] Pain Management Department for a followup [...] Urine pH, Pain Anaya 4-10 06/12/2015 Specific [place],Ur Pain Anaya 1.002 06/12/2015 Oxidants,Ur Negative 06/12/2015 [...] above and verbalized understanding. Geraldine Jauregui APRN, ASSISTANT ATTORNEY GENERAL October 08, 2017 Referring Provider: SATYA MAY [[id number]] Allergies As of Date: 10/08/2017 Noted Allergy [...] arthritis [M46.98] Order(s):NRV DESTR RFA, CHEM OTHER [[id number]] Order #: [id number] oxyCODONE-acetaminophen (PERCOCET) 5-325 mg tabletTake 1 tablet [...] PREG NOS [O09.90] INVALID FOR*02/10/2008 MILD/NOS PREECLAMP-ANTEP [JWR9716] INVALID FOR*02/10/2008 ABDOMINAL PAIN LLQ [R10.32] INVALID FOR*02/10/2008 Abnormal mammogram, unspecified [R92.8] INVALID FOR*01/01/2016 Priority: C Status post aortic valve repair [Z98.890] INVALID FOR* Priority: A Myofascial pain [M79.1] INVALID FOR* Priority: D Thoracic sprain and strain [OTF5280] INVALID FOR*07/12/2015 Priority: D Lumbago [M54.5] INVALID [...] 10/08/17 PROGRESS Observed: 10/06/2017 Status: COMPLETED Source: [place] 11:32 PM [facility] REPOSITORY HNO ID: [id number] Author: Romain Aragon (Pt) Service: (none) Author [...] facilitated with verbal and visual cuing. Billing: [facility]: Therapeutic Exercise (96392): 1:1 time: 39 minutes (3 units: 38-52 mins) Total time: 39 minutes Romain Aragon PT CNTHERAPY Observed: 10/03/2017 Status: COMPLETED Source: [place] 2:30 PM [facility] [place] OT/PT/Speech Visit (PTWS) CHRISSIE CR ([id number]) 1980 F HPR Date Time Provider Department 10/03/17 2:30 PM ROMAIN ARAGON (PT) PTWS Date Time Provider Department Center 10/03/2017 2:30 PM [id number], SEAN (PT)PTWS [facility] [place] Reason for Visit: Physical Therapy [503] [...] Upset Date Reviewed: 10/01/2017 Reviewed by: Darcy Hetser LPN - Fully Assessed Prescriptions as of [...] PRESSURE CUFF FOR HOME * Progress Notes: MaheshRomain (Pt) 10/06/2017 11:39 PM Signed Episode Visit [...] facilitated with verbal and visual cuing. Billing: [facility]: Therapeutic Exercise (23938): 1:1 time: 39 minutes (3 units: 38-52 mins) Total time: 39 minutes Romain Aragon, PT PROGRESS Observed: 10/02/2017 Status: COMPLETED Source: [place] 11:[address] [facility] [place] REPOSITORY HNO ID: [id number] Author: Romain Aragon (Pt) Service: (none) Author [...] facilitated with verbal and visual cuing. Billing: [facility]: Therapeutic Exercise (11513): 1:1 time: 30 minutes (2 units: 23-37 mins) Total time: 30 minutes Romain Aragon PT XR HAND 3V PA/LAT/OBL Observed: 10/01/2017 Status: F Source: [facility] 4:00 PM [facility] [place] * * *Final Report* * * [...] bone. IMPRESSION: No acute or healing fracture. Pain Management Physician: PSCB Transcribe Date/Time: Oct 02 2017 10:51A Dictated by : HERI STEEL MD This examination was interpreted and the report reviewed and electronically signed by: HERI STEEL MD on Oct 02 2017 10:53AM EST [id number] PROGRESS Observed: 10/01/2017 Status: COMPLETED Source: [place] 3:54 PM [facility] [place] HNO ID: [id number] Author: Nicole Soares (Rt), Tech Service: (none) Author Type: Instant Powder Supervisor Type: Progress Notes Filed: 10/01/2017 3:54 PM [...] PM PROGRESS Observed: 10/01/2017 Status: COMPLETED Source: [place] 3:15 PM [facility] [place] HNO ID: [id number] Author: Bill Lou Service: (none) Author Type: [...] valve disorders BICUSPID 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, 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 - Arrhythmia - Bicornuate uterus - Chronic [...] Mother - Coronary Artery Disease Mother 46 ME x 2 - Hyperlipidemia Mother - ovarian [...] MD CNOV Observed: 10/01/2017 Status: COMPLETED Source: [place] 3:00 PM [facility] [place] Office Visit (FAMPWS) CHRISSIE CR ([id number]) 1980 F [facility] Date Time Provider Department 10/01/17 3:00 PM [facility] today, we recorded [...] valve disorders BICUSPID 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, 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 - Arrhythmia - Bicornuate uterus - Chronic [...] Mother - Coronary Artery Disease Mother 46 ME x 2 - Hyperlipidemia Mother - ovarian [...] [M79.641] Order(s):XR HAND GENERAL 3V PA/LAT/OBL LT [[id number]] Order #: [id number] FUTURE Prescriptions as of 10/01/2017 Sig: TIZANIDINE [...] PREG NOS [O09.90] INVALID FOR*02/10/2008 MILD/NOS PREECLAMP-ANTEP [VHG4850] INVALID FOR*02/10/2008 ABDOMINAL PAIN LLQ [R10.32] INVALID FOR*02/10/2008 Abnormal mammogram, unspecified [R92.8] INVALID FOR*01/01/2016 Priority: C Status post aortic valve repair [Z98.890] INVALID FOR* Priority: A Myofascial pain [M79.1] INVALID FOR* Priority: D Thoracic sprain and strain [ZIU5589] INVALID FOR*07/12/2015 Priority: D Lumbago [M54.5] INVALID [...] EMERGENCY DEPARTMENT Observed: 10/01/2017 Status: F Source: [place] 12:08 AM [facility] REPOSITORY [facility] Medical Records Department [address] [place] [address] Emergency Department Summary 09/30/17 2139 MR#: [id number] Acct: [id number] Name: CHRISSIE CR Rep #: [id number] : 1980 37 From: Schuyler Ceballos DO [...] Generalized myalgias This note was generated with StepLeader dictation software. It may contain incorrect words, [...] your Primary Care Provider. Call [facility] ([phone]) or report to the closest Emergency Room. Call 911 if necessary. 10/01/17 0008 <Electronically signed by Schuyler Ceballos DO> Date Schuyler Samaniego Signature (If Indicated): Date CC: Bill Lou MD CNTHERAPY Observed: 09/29/2017 Status: COMPLETED Source: [place] 3:30 PM [facility] [place] OT/PT/Speech Visit (PTWS) CHRISSIE CR ([id number]) 1980 F HPR Date Time Provider Department 09/29/17 3:30 PM ROMAIN ARAGON (PT) PTWS Date Time Provider Department Center 09/29/2017 3:30 PM [id number], SEAN (PT)PTWS [facility] Z[facility] Reason for Visit: Physical Therapy [503] [...] facilitated with verbal and visual cuing. Billing: [facility]: Therapeutic Exercise (83257): 1:1 time: 30 minutes (2 units: 23-37 mins) Total time: 30 minutes Romain Aragon PT 12 LEAD ELECTROCARDIOGRAM Observed: 09/26/2017 Status: F Source: [place] 3:[address] [facility] Cardiovascular Services [address] [place] [address] 12 Lead EKG 09/23/17 1336 MR#: [id number] Acct: [id number] Name: CHRISSIE CR Rep #: [id number] : 1980 37 From: Ross Harris MD Attending Dr: Status: DEP ER Ordering Dr: Jaun Singh MD Date: 09/23/17 [...] ECG Confirmed by ROSS HARRIS MD ([id number]), art editor OANH AGARWAL ([id number]) on 09/26/2017 3:22:09 PM Referred By: ISAAC Confirmed By:ROSS HARRIS MD 09/26/17 1522 Date Ross Harris MD CC: Jaun Singh MD; Bill Lou MD Signed CT ANGIOGRAPHY CHEST Observed: 09/24/2017 Status: F Source: [place] W/CONTRAST 11:14 PM [facility] REPOSITORY ORIGINAL CT ANGIOGRAPHY CHEST W/CONTRAST: Multiplanar [...] 2 VIEWS Observed: 09/24/2017 Status: F Source: [employer] 10:13 PM [facility] REPOSITORY ORIGINAL XR CHEST 2 VIEWS CLINICAL [...] PM CBC Collected: 09/24/2017 Status: F Source: [facility] 9:55 PM [facility] REPOSITORY TYPE CODE TESTS RESULT OUT [...] 7.4-10.4 fL MPV 8.6 Performed By: #### CBC, ADIFF, ANEU, TROP, GFR, DIMER, BMP #### [address] [address] .AUTO DIFF Collected: 09/24/2017 Status: F Source: [facility] 9:55 PM [facility] REPOSITORY TYPE CODE TESTS RESULT OUT [...] ) Basophil, 0.10 Absolute Performed By: #### CBC, ADIFF, ANEU, TROP, GFR, DIMER, BMP #### [address] [address] .NEUABS Collected: 09/24/2017 Status: F Source: [facility] 9:55 PM [facility] REPOSITORY TYPE CODE TESTS RESULT OUT OF REFERENCE UNITS RANGE LAB ANEU(LOINC) 2.85-6.16 10 3/mcL Neutrophil, 5.80 Absolute Performed By: #### CBC, ADIFF, ANEU, TROP, GFR, DIMER, BMP #### [address] [address] TROP Collected: 09/24/2017 Status: F Source: [facility] 9:55 PM [facility] REPOSITORY TYPE CODE TESTS RESULT OUT OF REFERENCE UNITS RANGE LAB TROP(LOINC) 0.00-0.30 ng/mL Troponin <0.30 Result Comment: Below measuring range >=0.30 Consistent with cardiac damage, increased clinical risk and possibility of myocardial infarction. Serial measurements, clinical history, appropriate symptoms and/or ECG changes may help assess possibility of ME. *Other non-acute coronary syndrome conditions such as CHF, myocarditis, pulmonary emboli, sepsis and cardiac surgery could result in myocardial damage and increased troponin levels. Performed By: #### CBC, ADIFF, ANEU, TROP, GFR, DIMER, BMP #### [address] [address] .GFR Collected: 09/24/2017 Status: F Source: [facility] 9:55 PM [facility] REPOSITORY TYPE CODE TESTS RESULT OUT OF REFERENCE UNITS RANGE LAB GFRAA(LOINC ml/min/1.73 ) sqm GFR 77 [place] Result Comment: GFR Population mean for , [...] 15 mL/min/1.73 square meters Performed By: #### CBC, ADIFF, ANEU, TROP, GFR, DIMER, BMP #### [address] [address] DIMER Collected: 09/24/2017 Status: F Source: [employer] 9:55 PM [facility] REPOSITORY TYPE CODE TESTS [...] should be performed accordingly. Performed By: #### CBC, ADIFF, ANEU, TROP, GFR, DIMER, BMP #### [address] [address] BMP Collected: 09/24/2017 Status: F Source: [facility] 9:55 PM [facility] REPOSITORY TYPE CODE TESTS [...] mg/dL Calcium Lvl 9.6 Performed By: #### CBC, ADIFF, ANEU, TROP, GFR, DIMER, BMP #### [address] [address] 12 LEAD ELECTROCARDIOGRAM Observed: 09/24/2017 Status: F Source: [place] 6:08 PM [facility] REPOSITORY [facility] Cardiovascular Services [address] [place] [address] 12 Lead EKG 09/20/171947 MR#: [id number] Acct: [id number] Name: CHRISSIE CR Rep #: [id number] : 1980 37 From: Ross Harris MD [...] T wave abnormality Abnormal ECG Confirmed by ROSS HARRIS MD ([id number]), art editor OANH AGARWAL (56) on 09/23/2017 2:07:09 PM Referred By: Confirmed By:ROSS HARRIS MD 09/23/17 1407 Date Ross Harris MD CC: Topher Colon MD; Bill Lou MD Signed 12 LEAD ELECTROCARDIOGRAM Observed: 09/24/2017 Status: F Source: [place] 6:[address] [facility] Cardiovascular Services [address] [place] [address] 12 Lead EKG 09/21/17 0041 MR#: [id number] Acct: [id number] Name: CHRISSIE CR Rep #: [id number] : 1980 37 From: Ross Harris MD [...] ECG Confirmed by ROSS HARRIS MD ([id number]), art editor OANH AGARWAL (56) on 09/23/2017 2:07:30 PM Referred By: LLOYD Confirmed By:ROSS HARRIS MD 09/23/17 1407 Date Ross Harris MD CC: Arcadio Yanes; Bill Lou MD Signed EMERGENCY DEPARTMENT Observed: 09/23/2017 Status: F Source: [place] SUMMARY 5:[address] [facility] Medical Records Department [address] [place] [address] Emergency Department Summary 09/23/17 1623 MR#: [id number] Acct: [id number] Name: CHRISSIE CR Rep #: [id number] : 1980 37 From: Jaun Singh MD [...] rate of 56 with no signs of ME or ischemia. No change from a prior [...] septal defect This note was generated with StepLeader dictation software. It may contain incorrect words, [...] your Primary Care Provider. Call [facility] ([phone]) or report to the closest Emergency Room. Call 911 if necessary. 09/23/171724 <Electronically signed by Jaun Singh MD> Date Jaun Singh MD Cosigner Signature (If Indicated): Date CC: Bill Lou MD DISCHARGE INSTRUCTION Observed: 09/23/2017 Status: F Source: [place] 5:25 PM [facility] REPOSITORY [facility] Medical Records Department [address] [place] [address] Discharge Instruction 09/23/17 1628 MR#: [id number] Acct: [id number] Name: CHRISSIE CR Rep #: [id number] : 1980 37 From: Jaun Singh MD [...] your Primary Care Provider. Call [facility] ([phone]) or report to the closest Emergency Room. Call 911 if necessary. 09/23/171724 <Electronically signed by Jaun Singh MD> Date Jaun Singh MD Cosigner Signature (If Indicated): Date CC: Bill Lou MD CTA CHEST W/WO Observed: 09/23/2017 Status: F Source: ZAK CONTRAST 3:22 PM [facility] REPOSITORY [facility] Imaging Services [address] [place] [address] CTA Chest W/WO Contrast MR#: [id number] Acct: [id number] Name: CHRISSIE CR Rep #: [id number] : 1980 F 37 From: Rui Ward MD PCP: Bill Lou MD Status: REG ER Study: CTA Chest W/WO Contrast Date of Exam: 09/23/17 Exam# [id number] Ordering Dr: Jaun Singh MD STUDY: CTA [...] CC: Jaun Singh MD; Bill Lou MD Pain Management Physician: Signed D-DIMER QUANTITATIVE Collected: 09/23/2017 Status: F Source: ZAK (DVT/PE) 2:53 PM [facility] REPOSITORY Order Comment: REDRAW. PREVIOUS SPECIMEN REJECTED [...] VERIFIED. CALLED TO CHUY SEBASTIAN 09/23/17 1517 [place]. RESULTS READ BACK BY SAME. Performed By: #### L300.8000 #### [facility] [address], [address] CBC W/DIFF, AUTOMATED Collected: 09/23/2017 Status: F Source: [place]AK 1:50 PM [facility] REPOSITORY TYPE CODE TESTS RESULT OUT OF [...] Lymph 1.17 Performed By: #### L100.0100 #### [facility] [address] [place], [address] BASIC METABOLIC Collected: 09/23/2017 Status: F Source: E[place] PROFILE (BMP) 1:50 PM [facility] REPOSITORY Order Comment: 'TROP' Serial specimen #1, [...] 9 Performed By: #### L500.2500, L501.4010 #### [facility] [address] [facility] [place], [address] TROPONIN-I Collected: 09/23/2017 Status: F Source: [place] 1:50 PM [facility] REPOSITORY Order Comment: 'TROP' Serial specimen #1, #2, #3, or #4: 1 TYPE CODE TESTS RESULT OUT OF RANGE REFERENCE UNITS LAB L501.4010 <0.06 ng/mL Normal < 0.02 TROPONIN-I Result Comment: TROPONIN-I EXPECTED VALUES <0.05 NEGATIVE 0.06 - 0.59 AT RISK OF ME > OR = 0.60 SUGGEST ME Performed By: #### L500.2500, L501.4010 #### [facility] [address] [facility] [place], [address] CHEST 1 VIEW Observed: 09/23/2017 Status: F Source: E[place] (PORTABLE) 1:41 PM [facility] REPOSITORY [facility] Imaging Services [address] [place] [address] Chest 1 View (Portable) MR#: [id number] Acct: [id number] Name: CHRISSIE CR Rep #: [id number] : 1980 F 37 From: Rui Ward MD PCP: Bill Luo MD Status: REG ER Study: Chest 1 View (Portable) Date of Exam: 09/23/17 Exam# [id number] Ordering Dr: Jaun Singh MD STUDY: X-RAY [...] CC: Jaun Singh MD; Bill Lou MD Pain Management Physician: Signed EMERGENCY REPORT Observed: 09/21/2017 Status: F [facility] REPORT NAME ACCOUNT SEX AGE ADMIT DISCHARGE PT MED. RECORD# NUMBER DATE DATE TYPE CHRISSIE CR [id number] F 37 09/18/17 09/19/17 3 L [id number] ROOM: ER DATE OF : 1980 DICTATING PHYSICIAN: Guilherme Montejo ADDENDUM I did discuss the case with Dr. Jessica. He felt the patient could be sent home since she has had a cardiac workup. I did speak with Dr. Thacker at [facility], where the patient has had her [...] Guilherme Montejo DO 09/18/17 23:43 JOB #: [id number] Transcribed By: denny 09/19/17 19:13 Electronically signed by: E-Sign: Dr. Guilherme Montejo D.O. 09/21/17 08:59 Page 1 of 1 SHAYE CHRISSIE L Emergency Room Report EMERGENCY REPORT Observed: 09/21/2017 Status: F Source: [facility] 8:59 AM [facility] REPORT NAME ACCOUNT SEX AGE ADMIT DISCHARGE PT MED. RECORD# NUMBER DATE DATE TYPE CHRISSIE CR [id number] F 37 09/18/17 09/19/17 3 L [id number] ROOM: ER DATE OF : 1980 DICTATING [...] ago. Her last echocardiogram was done at [facility] about 1 to 2 years ago, and it did show that her valves were leaking. She states the last time she was hospitalized at [facility] her heart rate was slow. The patient also states she started coughing, and her temperature usually runs 96-97. She can take morphine for pain. Her last heart catheterization she thinks was about 2 years ago. It was done at [place] by Dr. Harris. She denies any nausea, [...] he has she does not have a financial services specialist. She states that Dr. Daigle had told her to follow up at the [facility]. Her primary care physician is Dr. Bill Lou at the [facility] in [place]. PAST SURGICAL HISTORY: Past surgeries include a [...] motor or sensory deficits are noted. 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 Skin is warm [...] Guilherme Montejo DO 09/18/17 21:22 JOB #: [id number] Transcribed By: jayson 09/19/17 18:07 Electronically signed by: E-Sign: Dr. Guilherme Montejo D.O. 09/21/17 08:59 Page 2 of 2 CHRISSIE CR Emergency Room Report EMERGENCY DEPARTMENT Observed: 09/21/2017 Status: F Source: [place] SUMMARY 6:08 AM [facility] REPOSITORY [facility] Medical Records Department [address] [place] [address] Emergency Department Summary 09/21/17 0145 MR#: [id number] Acct: [id number] Name: CHRISSIE CR Rep #: [id number] : 1980 37 From: Arcadio Yanes MD [...] likely costochondritis This note was generated with StepLeader dictation software. It may contain incorrect words, spelling, and punctuation that were not noted in review of the chart prior to signing ED Disposition - Plan for ED Patient: Disposition: Home or Assisted Living Chief Complaint: Chest Pain Diagnosis: Costochondritis, acute Instructions: ED Chest Wall Pain [facility] Referrals: Bill Lou MD [Primary Care Provider] - 3-5 Days What to do if you have Problems For any increased pain, shortness of breath, bleeding, nausea or vomiting, chest pain, or any unexpected problems, contact your Primary Care Provider. Call [facility] ([phone]) or report to the closest Emergency Room. Call 911 if necessary. 09/21/17 0608 <Electronically signed by Arcadio Yanes MD> Date Arcadio Yanes MD Cosigner Signature (If Indicated): Date CC: Bill Lou MD ERYTHROCYTE SED RATE Collected: 09/21/2017 Status: F Source: [place] 12:40 AM [facility] REPOSITORY TYPE CODE TESTS RESULT OUT OF RANGE REFERENCE UNITS LAB L102.0000 0-20 mm/hr Normal SED RATE 4 Performed By: #### L101.9900, L300.8000, L501.4010 #### [facility] [address] [place], [place], [address] D-DIMER QUANTITATIVE Collected: 09/21/2017 Status: F Source: ELL[place] (DVT/PE) 12:40 AM [facility] REPOSITORY TYPE CODE TESTS RESULT OUT OF RANGE REFERENCE UNITS LAB L300.8000 0.27-0.49 FEU/ug/m Normal D-DIMER 0.45 QUANT Result Comment: NORMAL D-Dimer level (<0.50) indicates no DVT or PE. Performed By: #### L101.9900, L300.8000, L501.4010 #### [facility] [address] [place], [place], [address] TROPONIN-I Collected: 09/21/2017 Status: F Source: [place] 12:40 AM [facility] REPOSITORY Order Comment: Has pt arrived? Y 'TROP' Serial specimen #1, #2, #3, or #4: 1 TYPE CODE TESTS RESULT OUT OF RANGE REFERENCE UNITS LAB L501.4010 <0.06 ng/mL Normal < 0.02 TROPONIN-I Result Comment: TROPONIN-I EXPECTED VALUES <0.05 NEGATIVE 0.06 - 0.59 AT RISK OF ME > OR = 0.60 SUGGEST ME Performed By: #### L101.9900, L300.8000, L501.4010 #### [facility] [address] [place], [address] EMERGENCY DEPARTMENT Observed: 09/20/2017 Status: F Source: ELL[place] SUMMARY 9:14 PM [facility] REPOSITORY [facility] Medical Records Department [address] [place] [address] Emergency Department Summary 09/20/17 2108 MR#: [id number] Acct: [id number] Name: CHRISSIE CR Rep #: [id number] : 1980 37 From: Topher Colon MD [...] seizure disorder This note was generated with StepLeader dictation software. It may contain incorrect words, [...] your Primary Care Provider. Call [facility] ([phone]) or report to the closest Emergency Room. Call 911 if necessary. 09/20/174 <Electronically signed by Topher Colon MD> Date Topher Colon MD Cosigner Signature (If Indicated): Date CC: Bill Lou MD CHEST PA AND LATERAL Observed: 09/20/2017 Status: F Source: ZAK 8:04 PM [facility] REPOSITORY [facility] Imaging Services [address] [place] [address] Chest PA and Lateral MR#: [id number] Acct: [id number] Name: CHRISSIE CR Rep #: [id number] : 1980 F 37 From: Micah Gaxiola MD PCP: Bill Lou MD Status: REG ER Study: Chest PA and Lateral Date of Exam: 09/20/17 Exam# [id number] Ordering Dr: Topher Colon MD STUDY: X-RAY CHEST REASON FOR EXAM: Female, 37 years old. Chest pains with shortness of breath x1 day TECHNIQUE: PA and lateral views of the chest. COMPARISON: Previous study of July 14, 2017 FINDINGS: paste mixer liquid leads are present. The lungs are clear [...] CC: Topher Colon MD; Bill Lou MD Pain Management Physician: Signed TROPONIN-I Collected: 09/20/2017 Status: F Source: [place] 7:55 PM [facility] REPOSITORY Order Comment: 'TROP' Serial specimen #1, #2, #3, or #4: 1 TYPE CODE TESTS RESULT OUT OF RANGE REFERENCE UNITS LAB L501.4010 <0.06 ng/mL Normal < 0.02 TROPONIN-I Result Comment: TROPONIN-I EXPECTED VALUES <0.05 NEGATIVE 0.06 - 0.59 AT RISK OF ME > OR = 0.60 SUGGEST ME Performed By: #### L501.4010 #### [facility] [address] [place], [address] TROPONIN Collected: 09/18/2017 Status: F Source: [facility] 10:30 PM [facility] REPOSITORY TYPE CODE TESTS RESULT [...] such as heterophile antibodies). Performed By: #### [id number] #### [facility],[address] [facility] [address] URINALYSIS Collected: 09/18/2017 Status: F Source: [facility] 8:58 PM [facility] REPOSITORY TYPE CODE TESTS RESULT [...] Urobilinog(LOINC) NORMAL: NORMAL Urobilinog NORM LAB Sp [place](LOINC) NORMAL: 1.010-1.030 Sp [place] 1.010 LAB Nitrite(LOINC) NORMAL: NEGATIVE Nitrite NEG LAB Leukocytes(LOINC) NORMAL: NEGATIVE Leukocytes Abnormal 25 LAB Microscopic(LOINC ) Microscopic SEE BELOW Result Comment: MICROSCOPIC LAB Wbc(LOINC) 0-5/hpf Wbc 6-10 LAB Rbc(LOINC) 0-3/hpf Rbc NONE LAB Casts(LOINC) Casts NONE LAB Crystals(LOINC) Crystals NONE LAB Amorphous(LOINC) Amorphous NONE LAB Bacteria(LOINC) Bacteria 2+ LAB Epi Cells(LOINC) Epi Cells FEW LAB Mucous(LOINC) Mucous 1+ LAB Yeast(INC) Yeast NONE Performed By: #### [id number] #### [facility],[address] [place] [address] CHEST 1 VIEW Observed: 09/18/2017 Status: F Source: [facility] 8:01 PM [place] [address] Patient: CHRISSIE CR Phone#: : 1980 Age: 37 Gender: F Pt. Type: ER Account: [id number] Location: [facility] Ordering: GUILHERME MONTEJO Exam Date: 09/18/2017/19:51 Family Phys: BILL LOU Charge Code: 652569 Physician: Bandera Order #: [id number] DLP Dose#: PROCEDURE: X-RAY CHEST 1 VIEW COMPARISON: [facility], XR, CHEST PA/LAT, 01/11/2017, 0:38. INDICATIONS: Chest [...] Status: F Source: [facility] 7:36 PM [facility] REPOSITORY TYPE CODE TESTS RESULT [...] 7.10 x10EE3/U L Neut # 5.50 LAB [place] #(LOINC) 0.20 - 1.00 x10EE3/U L [place] # 0.80 LAB EO #(LOINC) 0.00 - 0.50 x10EE3/U L EO # 0.20 LAB Baso #(LOINC) 0.00 - 0.10 x10EE3/U L Baso # 0.10 LAB MANUAL DIFF(LOINC) MANUAL DIFF N/A LAB MORPHOLOGY([facility] ) MORPHOLOGY N/A Result Comment: {CD] Performed By: #### [id number] #### [place] [address] PROTHROMBIN TIME AND Collected: 09/18/2017 Status: F Source: [facility] INR 7:36 PM [facility] REPOSITORY TYPE CODE TESTS RESULT OUT OF REFERENCE UNITS RANGE LAB PROTHROMBIN TIME AND INR(LOINC) PROTHROMBIN TIME AND INR Result Comment: PROTHROMBIN TIME AND INR LAB PT-COUMADIN(LOINC) sec PT-COUMADIN 11.4 LAB INR(INC) 0.8 - 1.2 INR 1.0 Result Comment: [...] 3.5 MECHANICAL HEART VALVES Performed By: #### [id number] #### [place] [address] CMP WITH EGFR Collected: 09/18/2017 Status: F Source: [facility] 7:36 PM [facility] REPOSITORY TYPE CODE TESTS RESULT [...] OF AGE AND OLDER. Performed By: #### [id number] #### [facility],[address] [place] [address] TROPONIN Collected: 09/18/2017 Status: F Source: [facility] 7:36 PM [facility] REPOSITORY TYPE CODE TESTS RESULT [...] such as heterophile antibodies). Performed By: #### [id number] #### [facility],[address] [place] [address] BNP (B-TYPE NATRIURETIC Collected: 09/18/2017 Status: F Source: [facility] PEPTIDE) 7:36 PM [facility] REPOSITORY TYPE CODE TESTS RESULT OUT OF RANGE REFERENCE UNITS LAB BNP(LOINC) 1 - 100 pg/ml BNP 72 Performed By: #### [id number] #### [facility],[address] [place], [place] [address] D-DIMER, QUANTITATIVE Collected: 09/18/2017 Status: F Source: [facility] 7:36 PM [facility] REPOSITORY TYPE CODE TESTS RESULT OUT OF REFERENCE UNITS RANGE LAB D-DIMER, QUANTITATI VE(LOINC) D-DIMER, QUANTITATIVE Result Comment: QUANT D-DIMER LAB D-DIMER QUANT(LOINC) 0 - 230 ng/ml D-DIMER QUANT 222 Performed By: #### [id number] #### [place] [address] APTT Collected: 09/18/2017 Status: F Source: [facility] 7:36 PM [facility] REPOSITORY TYPE CODE TESTS RESULT OUT OF RANGE REFERENCE UNITS LAB PTT(LOINC) 21.6 - 35.4 sec PTT 22.5 Performed By: #### [id number] #### [facility],[address] [place] [address] XR HAND 3V PA/LAT/OBL Observed: 09/17/2017 Status: F Source: [facility] 3:[address] [facility] REPOSITORY * * *Final Report* * * [...] swelling over the dorsum of the hand. Pain Management Physician: TREV Transcribe Date/Time: Sep 18 2017 8:49A Dictated by : JAIME TONEY MD This examination was interpreted and the report reviewed and electronically signed by: JAIME TONEY MD on Sep 18 2017 8:51AM EST [id number] Observed: 09/17/2017 Status: COMPLETED Source: [place] 3:23 PM [facility] [place] HNO ID: [id number] Author: Lucie Elizondo (Rt) Odessa Beal Service: (none) Author Type: Instant Powder Supervisor Type: Progress Notes Filed: 09/17/2017 3:28 PM Note Text: Radiology Service Progress Note PATIENT NAME: Chrissie Cr DATE OF SERVICE: September 17, 2017 TIME: [...] PM PROGRESS Observed: 09/17/2017 Status: COMPLETED Source: [place] 3:06 PM [facility] [place] HNO ID: [id number] Author: Lila Walton (Ashley) Jason Service: (none) Author Type: Physician Material Mover Type: Progress Notes Filed: 09/17/2017 4:34 PM Note Text: 37 year old female with c/o left hand increased swelling and pain after FOOSH today in [place]. Had previously dropped a hand weight on this hand and was seen in ER 09/14/17 with negative xray. 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 Cockup splint applied by me with instructions to continue use continuously as much as possible over the next 2-4 weeks until pain improves. - XR HAND GENERAL 3V PA/LAT/OBL LT Follow-up when necessary Lila Gomez PA-C CNOV Observed: 09/17/2017 Status: COMPLETED Source: [place] 2:40 PM [facility] [place] Office Visit (FAMPWS) CHRISSIE CR ([id number]) 1980 F H[facility] Date Time Provider Department [...] ER 09/14/17 with negative xray. 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 Cockup splint applied by me with [...] much as possible. If you had an GOLDIE wrap applied, remove and re-wrap the GOLDIE for comfort and circulation as needed. Keep your splint clean and dry. If any changes in color in fingers (blue or black), abnormal sensations, or increasing pain which is not resolved with adjusting GOLDIE wraps or the splint, come in immediately [...] Visit: ED Follow-up [821] Cmt: [facility] 09/14/17 Primary Visit Diagnosis:Injury of left hand, initial encounter [S69.92XA] Order(s):XR HAND GENERAL 3V PA/LAT/OBL LT [9184485] Order #: [id number] FUTURE Prescriptions as of 09/17/2017 Sig: TIZANIDINE [...] PREG NOS [O09.90] INVALID FOR*02/10/2008 MILD/NOS PREECLAMP-ANTEP [WQN4196] INVALID FOR*02/10/2008 ABDOMINAL PAIN LLQ [R10.32] INVALID FOR*02/10/2008 Abnormal mammogram, unspecified [R92.8] INVALID FOR*01/01/2016 Priority: C Status post aortic valve repair [Z98.890] INVALID FOR* Priority: A Myofascial pain [M79.1] INVALID FOR* Priority: D Thoracic sprain and strain [JEU2168] INVALID FOR*07/12/2015 Priority: D Lumbago [M54.5] INVALID [...] much as possible. If you had an GOLDIE wrap applied, remove and re-wrap the GOLDIE for comfort and circulation as needed. Keep your splint clean and dry. If any changes in color in fingers (blue or black), abnormal sensations, or increasing pain which is not resolved with adjusting GOLDIE wraps or the splint, come in immediately [...] 09/17/17 PROGRESS Observed: 09/17/2017 Status: COMPLETED Source: [place] 12:34 PM [facility] [place] O ID: [id number] Author: Romain (Pt) Mahesh Service: (none) Author [...] assessment of patient's response to intervention. Billing: [facility]: Evaluation - Low Complexity (41274) Therapeutic Exercise (32217): 1:1 time: 15 minutes (1 unit: 8-22 mins) Manual Therapy (81116): 1:1 time: 10 minutes (1 unit: 8-22 mins) Total time: 50 minutes Romain Aragon PT CNTHERAPY Observed: 09/17/2017 Status: COMPLETED Source: [place] 11:15 AM [facility] [place] [place] OT/PT/Speech Visit (PTWS) CHRISSIE CR ([id number]) 1980 F [facility] Date Time Provider Department 09/17/17 11:15 AM ROMAIN ARAGON (PT) PTWS Date Time Provider Department Center 09/17/2017 11:15 AM [id number], SEAN (PT)PTWS [facility] ZAK Reason for Visit: PT Eval [747] [...] assessment of patient's response to intervention. Billing: [facility]: Evaluation - Low Complexity (76121) Therapeutic Exercise (68673): 1:1 time: 15 minutes (1 unit: 8-22 mins) Manual Therapy (59202): 1:1 time: 10 minutes (1 unit: 8-22 mins) Total time: 50 minutes Romain Aragon PT EMERGENCY DEPARTMENT Observed: 09/15/2017 Status: F Source: [place] SUMMARY 1:19 AM [facility] REPOSITORY [facility] Medical Records Department [address] [place] [address] Emergency Department Summary 09/14/17 1922 MR#: [id number] Acct: [id number] Name: CHRISSIE CR Rep #: [id number] : 1980 37 From: Corinne Gallegos MD [...] x-ray read she is placed in an Goldie wrap. She is instructed to use Tylenol or ibuprofen. Treatment Plan: [] Disposition: Discharge Impression: Crush injury left hand This note was generated with OpenSkyation software. It may contain incorrect words, spelling, [...] your Primary Care Provider. Call [facility] ([phone]) or report to the closest Emergency Room. Call 911 if necessary. 09/15/17 011 <Electronically signed by Corinne Gallegos MD> Date Corinne Gallegos MD Cosigner Signature (If Indicated): Date CC: Bill Lou MD DISCHARGE INSTRUCTION Observed: 09/14/2017 Status: F Source: [place] 7:23 PM [facility] REPOSITORY [facility] Medical Records Department [address] [place] [address] Discharge Instruction 09/14/171921 MR#: [id number] Acct: [id number] Name: CHRISSIE CR Rep #: [id number] : 1980 37 From: Corinne Gallegos MD [...] your Primary Care Provider. Call [facility] ([phone]) or report to the closest Emergency Room. Call 911 if necessary. 09/14/171922 <Electronically signed by Corinne Gallegos MD> Date Corinne Gallegos MD Cosigner Signature (If Indicated): Date CC: Bill Lou MD HAND MIN 3 VIEWS Observed: 09/14/2017 Status: F Source: [facility] 6:36 PM [facility] REPOSITORY [facility] Imaging Services [address] [place] [address] Hand Min 3 Views MR#: [id number] Acct: [id number] Name: CHRISSIE CR Rep #: [id number] : 1980 F 37 From: Zak Carlson PCP: Bill Lou MD Status: REG ER Study: Hand Min 3 Views Date of Exam: 09/14/17 Exam# [id number] Ordering Dr: Corinne Gallegos MD STUDY: X-RAY [...] CC: Corinne Gallegos MD; Bill Lou MD Pain Management Physician: Signed PROGRESS Observed: 09/09/2017 Status: COMPLETED Source: [place] 3:[address] [facility] REPOSITORY HNO ID: [id number] Author: Lila Walton (Ashley) Jason Service: (none) Author Type: Physician Material Mover Type: Progress Notes Filed: 09/09/2017 8:01 PM Note Text: 37 year old female with c/o chronic low back pain persistent across lower x a couple weeks. Mostly when working. Moving upward in back some. Gets to point she can tolerate at work. Currently taking Oxaprosin and tizanidine. Using moist heat. Has appt with Dr. May pain management. Seeing chiropractor in [place]. She is seeking narcotics for pain. Please?. 11/20/15 CT WO contrast lumbar: minimal retrolisthesis L5-S1. No other defects or mass. 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 ASHLEY Clemente Observed: 09/09/2017 Status: COMPLETED Source: [place] 3:20 PM [facility] REPOSITORY Office Visit (FAMPWS) CHRISSIE CR ([id number]) 1980 F [facility] Date Time Provider Department 09/09/17 3:20 PM Lila GOMEZ) FAMPWS During your visit today, we recorded the following information about you: Temperature Pulse Respiration Blood pressure 98.8 degrees 68/minute 16/minute 136/88 Weight 84.8 kg M Anton Gomez PA-C 09/09/2017 8:01 PM Signed 37 year old female with c/o chronic low back pain persistent across lower x a couple weeks. Mostly when working. Moving upward in back some. Gets to point she can tolerate at work. Currently taking Oxaprosin and tizanidine. Using moist heat. Has appt with Dr. May pain management. Seeing chiropractor in [place]. She is seeking narcotics for pain. ANDquot;Please?ANDquot;. 11/20/15 CT WO contrast lumbar: minimal retrolisthesis L5-S1. No other defects or mass. HISTORIES FAMILY HISTORY Problem Relation Age of Onset - Breast Cancer Mother 36 - Stroke Mother - Coronary Artery Disease Mother 44 ME x 2 - Hyperlipidemia Mother - ovarian [...] valve disorders BICUSPID 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, 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 - Arrhythmia - Bicornuate uterus - Chronic [...] Clemente PA-C 09/09/2017 3:50 PM Signed Nikos Denita spine handout given and reviewed. Muscle [...] Order(s):CONSULT TO PHYSICAL THERAPY [9032] Order #: [id number]: 1 Prescriptions as of 09/09/2017 Sig: TIZANIDINE [...] PREG NOS [O09.90] INVALID FOR*02/10/2008 MILD/NOS PREECLAMP-ANTEP [CWE1557] INVALID FOR*02/10/2008 ABDOMINAL PAIN LLQ [R10.32] INVALID FOR*02/10/2008 Abnormal mammogram, unspecified [R92.8] INVALID FOR*01/01/2016 Priority: C Status post aortic valve repair [Z98.890] INVALID FOR* Priority: A Myofascial pain [M79.1] INVALID FOR* Priority: D Thoracic sprain and strain [[id number]] INVALID FOR*07/12/2015 Priority: D Lumbago [M54.5] INVALID [...] EMERGENCY DEPARTMENT Observed: 09/08/2017 Status: F Source: [place] SUMMARY 5:04 AM [facility] REPOSITORY [facility] Medical Records Department [address] [place] [address] Emergency Department Summary 09/08/17 0254 MR#: [id number] Acct: [id number] Name: CHRISSIE CR Rep #: [id number] : 1980 37 From: Schuyler Villarreal MD [...] Department Course and Treatment: Patient treated with Canute while awaiting results. Urinalysis is likely contaminated, but there is some suggestion of an infection. Culture was sent. She was given a dose of Macrobid. Prescription for home. Follow-up with primary care. Return if worse. Treatment Plan: Above Disposition: Discharged Impression: 1. UTI, acute cystitis This note was generated with StepLeader dictation software. It may contain incorrect words, [...] your Primary Care Provider. Call [facility] ([phone]) or report to the closest Emergency Room. Call 911 if necessary. 09/08/17 0502 <Electronically signed by Schuyler Villarreal MD> Date Schuyler Villarreal MD Cosigner Signature (If Indicated): Date CC: Bill Lou MD DISCHARGE INSTRUCTION Observed: 09/08/2017 Status: F Source: [place] 5:04 AM [facility] REPOSITORY [facility] Medical Records Department [address] [place] [address] Discharge Instruction 09/08/17 0258 MR#: [id number] Acct: [id number] Name: CHRISSIE CR Rep #: [id number] : 1980 37 From: Schuyler Villarreal MD [...] your Primary Care Provider. Call [facility] ([phone]) or report to the closest Emergency Room. Call 911 if necessary. 09/08/17 0504 <Electronically signed by Schuyler Villarreal MD> Date Schuyler Villarreal MD Cosquyener Signature (If Indicated): Date CC: Bill Lou MD ,URINE Collected: 09/08/2017 Status: F Source: [place]AK 1:13 AM [facility] REPOSITORY Order Comment: Order Date: 09/08/17 TYPE CODE TESTS RESULT OUT OF REFERENCE UNITS RANGE LAB L400.8000 Negative Normal HCGUQUAL Negative Result Comment: Very dilute urine specimens, as indicated by a low specific gravity, may not contain loan representative levels of hCG. If is still suspected, a first morning urine specimen should be collected 48 hours later and tested. Performed By: #### L400.7600 #### [facility] [address] [place], [place], [id number] URINALYSIS, COMPLETE Collected: 09/08/2017 Status: F Source: ZAK 1:13 AM [facility] REPOSITORY Order Comment: Order Date: 09/08/17 How was Urine Obtained? PAYROLL ADMINISTRATIVE ASSISTANT TO SPECIFY TYPE CODE TESTS RESULT OUT [...] URINE SEEN Performed By: #### L400.0001 #### [facility] [address] [place], [address] Observed: 09/08/2017 Status: F Source: ZAK CULTURE, URINE 1:13 AM [facility] REPOSITORY Order Date: 09/08/17 Urine Culture ORGANISM 1: Mixed Gram Pos AND Gram Neg Org [place] Count 1000-10,000 MIX CULTURE Mixed contaminants. Submit a new specimen if indicated. Performed By: #### M100.0650 #### [facility] [address] [place], [address] PROGRESS Observed: 08/06/2017 Status: COMPLETED Source: [place] 3:[address] [facility] REPOSITORY HNO ID: [id number] Author: Lila Walton (Ashley) Jason Service: (none) Author Type: Physician Material Mover Type: Progress Notes Filed: 08/06/2017 4:25 PM [...] Mother - Coronary Artery Disease Mother 46 ME x 2 - Hyperlipidemia Mother - ovarian [...] valve disorders BICUSPID 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, 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 - Arrhythmia - Bicornuate uterus - Chronic [...] 2 tabs daily F/u in 4-6 weeks Lila Gomez PA-C CNOV Observed: 08/06/2017 Status: COMPLETED Source: [place] 3:00 PM [facility] [place] Office Visit (FAMPWS) CHRISSIE CR ([id number]) 1980 F HPR Date Time Provider Department 08/06/17 3:00 PM Lila GOMEZ) FAMPWS During your [...] Mother - Coronary Artery Disease Mother 46 ME x 2 - Hyperlipidemia Mother - ovarian [...] valve disorders BICUSPID 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, 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 - Arrhythmia - Bicornuate uterus - Chronic [...] CONSULT TO PHYSICAL THERAPY [9032] Order #: [id number]: 1 Prescriptions as of 08/06/2017 Sig: TIZANIDINE [...] PREG NOS [O09.90] INVALID FOR*02/10/2008 MILD/NOS PREECLAMP-ANTEP [UVV0056] INVALID FOR*02/10/2008 ABDOMINAL PAIN LLQ [R10.32] INVALID FOR*02/10/2008 Abnormal mammogram, unspecified [R92.8] INVALID FOR*01/01/2016 Priority: C Status post aortic valve repair [Z98.890] INVALID FOR* Priority: A Myofascial pain [M79.1] INVALID FOR* Priority: D Thoracic sprain and strain [[id number]] INVALID FOR*07/12/2015 Priority: D Lumbago [M54.5] INVALID [...] 08/06/17 PROGRESS Observed: 07/29/2017 Status: COMPLETED Source: [place] 9:14 AM [facility] [place] [place] O ID: [id number] Author: Ana Reed Service: (none) Author Type: [...] valve disorders BICUSPID 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, 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 - Arrhythmia - Bicornuate uterus - Chronic [...] Mother - Coronary Artery Disease Mother 46 ME x 2 - Hyperlipidemia Mother - ovarian [...] CNP CNOV Observed: 07/29/2017 Status: COMPLETED Source: [place] 9:00 AM [facility] [place] Office Visit (WOOB) CHRISSIE CR ([id number]) 1980 F HPR Date Time Provider Department [...] valve disorders BICUSPID 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, 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 - Arrhythmia - Bicornuate uterus - Chronic [...] Mother - Coronary Artery Disease Mother 46 ME x 2 - Hyperlipidemia Mother - ovarian [...] ANA REED CNP Referring Provider: MAURICIO GATES [[id number]] Allergies As of Date: 07/29/2017 Noted Allergy [...] PREG NOS [O09.90] INVALID FOR*02/10/2008 MILD/NOS PREECLAMP-ANTEP [[id number]] INVALID FOR*02/10/2008 ABDOMINAL PAIN LLQ [R10.32] INVALID FOR*02/10/2008 Abnormal mammogram, unspecified [R92.8] INVALID FOR*01/01/2016 Priority: C Status post aortic valve repair [Z98.890] INVALID FOR* Priority: A Myofascial pain [M79.1] INVALID FOR* Priority: D Thoracic sprain and strain [GSO9969] INVALID FOR*07/12/2015 Priority: D Lumbago [M54.5] INVALID [...] EMERGENCY DEPARTMENT Observed: 2017 Status: F Source: [place] SUMMARY 7:16 PM [facility] REPOSITORY [facility] Medical Records Department [address] [address] Emergency Department Summary 07/18/17 1901 MR#: [id number] Acct: [id number] Name: CHRISSIE CR Rep #: [id number] : 1980 37 From: Francisco Emanuel MD [...] abdominal pain This note was generated with StepLeader dictation software. It may contain incorrect words, spelling, and punctuation that were not noted in review of the chart prior to signing ED Disposition - Plan for ED Patient: Disposition: Home or Assisted Living Chief Complaint: Abd Pain Instructions: ED Abdominal Pain Unkn Cause, ED Cyst Ovarian Prescriptions: Hydrocodone/Acetaminophen [Canute 5-325 Tablet] 1 ea PO Q4H PRN 2 Days #8 tab PRN Reason: Pain Referrals: Mauricio Gates MD [STAFF PHYSICIAN] - 3-5 Days if not improving What to do if you have Problems For any increased pain, shortness of breath, bleeding, nausea or vomiting, chest pain, or any unexpected problems, contact your Primary Care Provider. Call [facility] ([phone]) or report to the closest Emergency Room. Call 911 if necessary. 07/18/171915 <Electronically signed by Francisco Emanuel MD> Date Francisco Emanuel MD Cosigner Signature (If Indicated): Date CC: Mauricio Gates MD; Bill Lou MD CBC W/DIFF, AUTOMATED Collected: 2017 Status: F Source: [place] 5:30 PM [facility] REPOSITORY TYPE CODE TESTS RESULT OUT OF [...] Lymph 1.74 Performed By: #### L100.0100 #### [facility] [address] [place], [place], [address] COMPREHENSIVE METABOLIC Collected: 2017 Status: F Source: [facility] 5:30 PM [facility] REPOSITORY TYPE CODE TESTS RESULT OUT OF [...] GAP 6 Performed By: #### L500.4050 #### [facility] [address] [place], [address] URINALYSIS, COMPLETE Collected: 2017 Status: F Source: [place]AK 4:40 PM [facility] REPOSITORY Order Comment: Has pt arrived? Y [...] SEEN Performed By: #### L400.0001, L400.7600 #### [facility] [address] [facility] [place], [address] ,URINE Collected: 2017 Status: F Source: [place] 4:40 PM [facility] REPOSITORY Order Comment: Has pt arrived? Y Has pt arrived? Y How was Urine Obtained? CLEAN CATCH TYPE CODE TESTS RESULT OUT OF REFERENCE UNITS RANGE LAB L400.8000 Negative Normal HCGUQUAL Negative Result Comment: Very dilute urine specimens, as indicated by a low specific gravity, may not contain loan representative levels of hCG. If is still suspected, a first morning urine specimen should be collected 48 hours later and tested. Performed By: #### L400.0001, L400.7600 #### [facility] [address] [facility] [place], [address] ABDOMEN/PELVIS W IV CONT Observed: 2017 Status: F Source: [facility] 4:31 PM [facility] REPOSITORY [facility] Imaging Services [address] [facility] [place] [address] Abdomen/Pelvis W IV Cont ONLY MR#: [id number] Acct: [id number] Name: CHRISSIE CR Rep #: [id number] : 1980 F 37 From: Jaun Decker MD PCP: Bill Lou MD Status: REG ER Study: Abdomen/Pelvis W IV Cont ONLY Date of Exam: 07/18/17 Exam# [id number] Ordering Dr: Francisco Emanuel MD STUDY: CT [...] CC: FRANCISCO EMANUEL MD; Bill Lou MD Pain Management Physician: Signed Observed: 2017 Status: F Source: [place] URINE CULTURE 3:40 PM [facility] [place] Sp. Request/Comment: - Specimen received in preservative Culture Result - <10,000 CFU/ml Normal urogenital manuel Performed By: #### URCUL #### [facility] [address] [place], [place] [address] PROGRESS Observed: 2017 Status: COMPLETED Source: [place] 3:24 PM [facility] [place] HNO ID: [id number] Author: Cinthia (Filiberto) Fidencio Service: (none) Author Type: Nurse Practitioner [...] valve disorders BICUSPID 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, 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 - Arrhythmia - Bicornuate uterus - Chronic [...] as needed for worsening/no improvement. Cinthia Nicolas CNP 12 LEAD ELECTROCARDIOGRAM Observed: 07/16/2017 Status: F Source: [place] 1:35 PM [facility] REPOSITORY [facility] Cardiovascular Services [address] [place] [address] 12 Lead EKG 07/14/17 1813 MR#: [id number] Acct: [id number] Name: CHRISSIE CR Rep #: [id number] : 1980 36 From: Satya Lopez MD Attending Dr: Status: DEP ER Ordering Dr: Cristian Harvey Date: 07/14/17 Location: ED Sex: F C [...] ECG Confirmed by DIPIKA ADAMS, SATYA ([id number]), art editor OANH AGARWAL ([id number]) on 07/16/2017 1:34:59 PM Referred By: ROLAN 07/16/17 1335 Date Satya Lopez MD CC: ED PHYSICIAN PROVIDER; Bill Lou MD Signed EMERGENCY DEPARTMENT Observed: 07/14/2017 Status: F Source: [place] SUMMARY 7:55 PM [facility] REPOSITORY [facility] Medical Records Department [address] [place] [address] Emergency Department Summary 07/14/17 1950 MR#: [id number] Acct: [id number] Name: CHRISSIE CR Rep #: [id number] : 1980 36 From: Topher Colon MD [...] of COPD This note was generated with StepLeader dictation software. It may contain incorrect words, [...] your Primary Care Provider. Call [facility] ([phone]) or report to the closest Emergency Room. Call 911 if necessary. 07/14/171954 <Electronically signed by Topher Colon MD> Date Topher Colon MD Cosigner Signature (If Indicated): Date CC: Bill Lou MD CBC W/DIFF, AUTOMATED Collected: 07/14/2017 Status: F Source: [place] 6:54 PM [facility] REPOSITORY TYPE CODE TESTS RESULT OUT OF [...] Lymph 2.05 Performed By: #### L100.0100 #### [facility] [address] [place], [place], [address] PROTHROMBIN TIME W/INR Collected: 07/14/2017 Status: F Source: [place] 6:54 PM [facility] REPOSITORY TYPE CODE TESTS RESULT OUT OF RANGE REFERENCE UNITS LAB L300.4150 11.7-14.9 SECONDS Normal PROTIME 13.9 LAB L300.4200 Normal INR 1.1 Performed By: #### L300.3900 #### [facility] [address] [place], [address] BASIC METABOLIC Collected: 07/14/2017 Status: F Source: [place] PROFILE (BMP) 6:54 PM [facility] REPOSITORY Order Comment: 'TROP' Serial specimen #1, [...] 5 Performed By: #### L500.2500, L501.4010 #### [facility] [address] [place], [address] TROPONIN-I Collected: 07/14/2017 Status: F Source: [place] 6:54 PM [facility] REPOSITORY Order Comment: 'TROP' Serial specimen #1, #2, #3, or #4: 1 TYPE CODE TESTS RESULT OUT OF RANGE REFERENCE UNITS LAB L501.4010 <0.06 ng/mL Normal < 0.02 TROPONIN-I Result Comment: TROPONIN-I EXPECTED VALUES <0.05 NEGATIVE 0.06 - 0.59 AT RISK OF ME > OR = 0.60 SUGGEST ME Performed By: #### L500.2500, L501.4010 #### [facility] [address] [facility] [place], [address] CHEST 1 VIEW Observed: 07/14/2017 Status: F Source: [place] (PORTABLE) 6:41 PM [facility] REPOSITORY [facility] Imaging Services [address] [place] [address] Chest 1 View (Portable) MR#: [id number] Acct: [id number] Name: CHRISSIE CR Rep #: [id number] : 1980 F 36 From: Erickson Modi MD PCP: Bill Lou MD Status: PRE ER Study: Chest 1 View (Portable) Date of Exam: 07/14/17 Exam# [id number] Ordering Dr: Topher Colon MD STUDY: X-RAY [...] CC: Topher Colon MD; Bill Lou MD Pain Management Physician: Signed ALLERGIES ALLERGIES DATE TYPE / NAME / CODE REACTION SEVERITY SOURCE CODE 05/25/2018 Drug diphenhydramine MUSCLE SPASMS Unknown [place] Allergy/41 HCl/[id number](RXNORM Community 7860230[facility]) Repository 05/25/2018 Drug milnacipran Other Unknown [place] Allergy/41 HCl/J302232972(RXNORM Community 2869262([facility]) Repository 05/25/2018 Drug duloxetine Other Unknown [place] Allergy/41 HCl/[id number](RXNORM Community [id number] [place] [address]) Repository 05/25/2018 Drug acetaminophen/G712398 Vomiting [place] Allergy/41 605(RXNORM) Community 2165359([facility]) Repository 05/25/2018 Drug erythromycin Rash Unknown [place] Allergy/41 base/Z906262752(RXNOR Community 6793968([facility]) Repository 05/25/2018 Drug amoxicillin/P07454842 Rash Unknown [place] Allergy/41 5(RXNORM) Community 1976833([facility]) Repository 05/25/2018 Drug amitriptyline/Z139702 Other Unknown [place] Allergy/41 600(RXNORM) Community 5517555([facility]) Repository 05/25/2018 Drug meloxicam/D066925805( Swelling of Unknown [place] Allergy/41 RXNORM) legs/chest pain Community 7260725([facility]) Repository 05/25/2018 Drug levofloxacin/M7883943 Swelling Unknown [place] Allergy/41 99(RXNORM) Community 3109399([facility]) Repository 05/25/2018 Drug celecoxib/T281331879( Other Unknown [place] Allergy/41 RXNORM) Community 5099463([facility]) Repository 05/25/2018 Drug milnacipran/V91210023 Other Unknown [place] Allergy/41 3(RXNORM) Community 3447079([facility]) Repository 05/25/2018 Drug hydroxyzine/E23870760 Rash Unknown [place] Allergy/41 1(RXNORM) Community 2160010( [facility]) Repository 04/16/2016 DRUG LEVOFLOXACIN HIVES [place] INGREDI/41 Clinic Main 2484423( [facility]) Repository 05/29/2015 DRUG AMITRIPTYLINE OTHER: SEE C [place] INGREDI/41 Clinic Main 5809269( [facility]) Repository 05/29/2015 DRUG MILNACIPRAN OTHER: SEE C [place] INGREDI/41 Clinic Main 6742088( [facility]) Repository 04/11/2014 DRUG DULOXETINE OTHER: SEE C [place] INGREDI/41 Clinic Main 3044637( [facility]) Repository 12/14/2013 DRUG DIPHENHYDRAMINE HCL OTHER: SEE C [place] INGREDI/41 Clinic Main 7425758( [facility]) Repository 10/16/2012 DRUG MELOXICAM INTOLERANCE [place] INGREDI/41 Clinic Main 8707429( [facility]) Repository 09/30/2012 DRUG ACETAMINOPHEN GI UPSET [place] INGREDI/41 Clinic Main 1808125( [facility]) Repository 09/26/2005 DRUG/87334 ERYTHROMYCIN Vomiting High [place] 1003([facility] Main D CT) [facility] Repository 12/02/2000 DRUG AMOXICILLIN RASH [place] INGREDI/41 Clinic Main 8908123( [facility]) Repository Drug AMITRIPTYLINE/2613941 Moderate Mumtaz [place] Allergy/41 3(RXNORM) ([facility] 5444368(SN Modifier) [facility] CT) (Qualifier Repository Value) Drug LEVAQUIN/60384631(RXN Moderate [place] Allergy/41 ORM) ([facility] 2299947(SN Modifier) [facility] CT) (Qualifier Repository Value) Drug ERYTHROMYCIN/25286098 Moderate Mumtaz Pomerene Allergy/41 (RXNORM) ([facility] 8551162(SN Modifier) [facility] CT) (Qualifier Repository Value) Drug AMOXICILLIN/69520643( Moderate Mumtaz Pomerene Allergy/41 RXNORM) ([facility] 2356007(SN Modifier) [facility] CT) (Qualifier Repository Value) Drug CELEBREX/69617229(RXN Moderate Mumtaz [place] Allergy/41 ORM) ([facility] 6089752(SN Modifier) [facility]) (Qualifier Repository Value) Drug CYMBALTA/98293383(RXN Moderate Mumtaz P[place]rene Allergy/41 ORM) ([facility] 7297071(SN Modifier) [facility]) (Qualifier Repository Value) Drug TYLENOL/20008869(RXNO Moderate Mum[place]z [place] Allergy/41 RM) ([facility] 8143986(SN Modifier) [facility]) (Qualifier Repository Value) Drug MOBIC/70997119(RXNORM Moderate Mumtaz Pomerene Allergy/41 ) ([facility] 0687256(SN Modifier) [facility]) (Qualifier Repository Value) Drug BENADRYL/50101855(RXN Moderate Mumtaz [place] Allergy/41 ORM) ([facility] 5078907(SN Modifier) [facility]) (Qualifier Repository Value) DRUG [facility]CO[facility]IB [facility]: [facility] Main 9746199([facility]) Repository ENCOUNTERS ENCOUNTERS ADMIT/DISCHARGE ACCOUNT NUMBER ADMITTING ENCOUNTER LOCATION SOURCE CLASS 06/03/2018/06/03/19 [id number] Ambulatory [address] Repository 05/25/2018/05/25/20 [id number] Emergency [address] ding:ED Repository 05/18/2018/05/20/20 [id number] Ambulatory [address] Repository 05/15/2018/05/16/20 [id number] ZEB ADAMS, Inpatient ABuilding:DEVIN [facility] Encounter URoom: Health 0327Bed: [facility] Repository 05/15/2018/05/15/[id number] ANISHA Emergency Buildin [address] Room: ERBed: [facility] Repository 05/12/2018/05/12/20 [id number] Emergency [address] ding:ED Repository 05/06/2018/05/06/20 [id number] Ambulatory [address] Repository 05/06/2018/05/07/20 [id number] Ambulatory [address] Repository 05/04/2018 [id number] Ambulatory BBuilding:[facility] Repository 04/25/2018/04/25/20 [id number] Emergency [place] [address] [place] [address] ding:ED Repository 04/22/2018/04/23/20 [id number] Ambulatory [address] Main [facility] Repository 04/14/2018/04/14/20 [id number] [facility], Emergency Buildin[address] [place] [address] Room: ERBed: [facility] Repository 04/13/2018/04/13/20 [id number] Ambulatory [address] Main [facility] Repository 04/08/2018/04/08/20 [id number] Emergency BBuilding:ER [address] Repository 04/07/2018/04/07/20 [id number] SATYA MAY Ambulatory [address] Other [facility] Repository 04/02/2018/04/02/20 [id number] Emergency [place] ding:ED Repository 03/12/2018/03/12/20 [id number] Emergency [address] Other [facility] Repository 03/12/2018/03/12/20 [id number] Ambulatory [address] Main [facility] Repository 03/11/2018/03/13/20 [id number] Ambulatory [address] Main [facility] Repository 03/05/2018/03/05/20 [id number] Emergency [place] ding:ED Repository 02/23/2018/02/24/20 [id number] Emergency [place] Zak [address] [place] [address] ding:ED Repository 02/19/2018/02/20/20 [id number] Ambulatory [address] Main [place] Repository 02/18/2018/02/19/20 [id number] Ambulatory [address] Main [facility] Repository 02/05/2018/02/06/[id number] ding:[facility] Repository 02/03/2018/02/04/20 [id number] SATYA MAY Ambulatory [address] Other [facility] Repository 02/02/2018/02/04/20 [id number] Ambulatory [address] Main [facility] Repository 01/21/2018/01/22/20 [id number] Ambulatory [address] Main [facility] Repository 01/09/2018 [id number] Ambulatory BBuilding:RA [facility] Repository 01/01/2018/01/03/20 [id number] Ambulatory [address] Main [facility] Repository 12/31/2017 [id number] Ambulatory BBuilding:RA [facility] Repository 12/25/2017/12/26/19 [id number] Emergency [place] [address] [place] [address] ding:ED Repository 12/16/2017 [id number] Ambulatory [facility] Other [facility] Repository 12/12/2017/12/13/19 [id number] Ambulatory [address] Main [facility] Repository 12/12/2017/12/16/19 [id number] Ambulatory [address] Repository 12/09/2017/12/10/19 [id number] SATYA MAY Ambulatory [address] [facility] Repository 12/01/2017/12/02/19 [id number] [facility], Emergency Buildin [facility] BILL Gomez Room: ERBed: [facility] Repository 11/27/2017/11/28/19 [id number] Ambulatory [address] [facility] Repository 11/27/2017/11/29/19 [id number] Ambulatory [address] Repository 11/24/2017/11/25/19 [id number] Emergency [place] ding:ED Repository 11/22/2017/11/23/19 [id number] Emergency BBuilding:MARTIN Meyer Lisseth [facility] Repository 11/18/2017/11/20/19 [id number] Emergency [place] [address] [place] [address] ding:ED Repository 11/14/2017/11/15/19 [id number] Ambulatory [address] [facility] Repository 11/12/2017/11/13/19 [id number] Emergency [place] [address] [place] [address] ding:ED Repository 11/12/2017/11/14/19 [id number] Ambulatory [address] Repository 11/11/2017/11/12/19 [id number] Emergency Zak Zak [address] [place] [address] ding:ED Repository 11/10/2017 [id number] Ambulatory BBuilding: [facility] Repository 11/03/2017/11/05/19 [id number] Emergency [place] ding:ED Repository 10/30/2017/11/01/19 [id number] Ambulatory [address] Repository 10/22/2017/10/23/19 [id number] Emergency [place] ding:ED Repository 10/19/2017/10/20/[id number] ANISHA Emergency Buildin[address] [place], [place] [address]martha [facility] Room: ERBed: [facility] Repository 10/15/2017/10/18/19 [id number] Ambulatory [address] Repository 10/09/2017/10/10/19 [id number] Emergency [address] ding:ED Repository 10/08/2017/10/09/19 [id number] Ambulatory [address] Repository 10/03/2017/10/08/19 [id number] Ambulatory [address] Repository 10/01/2017/10/02/19 [id number] Ambulatory [address] Repository 10/01/2017/10/03/19 [id number] Ambulatory [address] Repository 09/30/2017/10/01/19 [id number] Emergency [address] ding:ED Repository 09/29/2017 [id number] Ambulatory [facility] Repository 09/24/2017/09/25/19 [id number] Emergency BBuilding:MARTIN Meyer [address] [place] [address] Repository 09/23/2017/09/24/19 [id number] Emergency [place] ding:ED Repository 09/20/2017/09/22/19 [id number] Emergency [address] ding:ED Repository 09/20/2017/09/21/19 [id number] Emergency Zak [place] ding:ED Repository 09/18/2017/09/20/19 [id number] GUILHERME MONTEJO Emergency Buildin[address] [place] [address] DO Room: ERBed: [facility] Repository 09/17/2017/09/18/19 [id number] Ambulatory [address] Repository 09/17/2017/09/19/19 [id number] Ambulatory [address] Repository 09/17/2017/09/19/19 [id number] Ambulatory [address] Repository 09/14/2017/09/15/19 [id number] Emergency [place] Zak [facility] ding:ED Repository 09/09/2017/09/11/19 [id number] Ambulatory [address] Repository 09/08/2017/09/09/19 [id number] Emergency Zak [place] ding:ED Repository 08/06/2017/08/08/19 [id number] Ambulatory [address] Repository 07/29/2017/08/05/19 [id number] Ambulatory [address] Repository 07/28/2017/08/02/19 [id number] Ambulatory [address] Repository 07/18/2017/07/18/19 [id number] Emergency Zak Zak 18 [facility] ding:ED Repository 07/18/2017/07/19/19 [id number] Ambulatory [address] Repository 07/14/2017/07/14/19 [id number] Emergency [place] [address] [place] [address] ding:ED Repository PAYERS PAYERS ENCOUNTER GUARANTOR PAYER SUBSCRIBER SOURCE 05/25/2018 CHRISSIE L Primary CHRISSIE L Zak [id number] Insurance:[facility] VITALY: [facility] Number: [id number] [id number] Repository [address]Dcx: 330) Date:2018-05-25 [phone] (QP) 7484ATTN: [place] [address]NQ: 05/25/2018 Secondary NOT GIVENUNK Zak Insurance:SELF PAY [facility] Number: Effective Repository Date:2018-05-25 05/15/2018 CHRISSIE L Primary CHRISSIE L [facility] JOHNSONDOB: Insurance:CARESOURCE SHAYEDOB: [facility] MEDICAIDPolicy Number: [id number] Repository [address] [id number] [address] [place] [address] Date:2018-05-[address] [place] [address]~CHAGO [id number] 71348Ixw: (240) [email or web address] Name:[phone] : [phone]) [address], [place] () () [phone]: () [phone] 05/15/2018 CHRISSIE L Primary Chrissie L Mumtaz CRB: Insurance:[facility] CrB: [facility] [id number] [facility] RT Number: 05/27 E ADRIAN Repository [address] [place] [address] [id number] [place] [id number]: Date:Plan Name:X3 [phone] () 05/12/2018 CHRISSIE L Primary CHRISSIE L Zakcamilo [id number] Insurance:CARESOEMERALDo SHAYEB: [facility] licy Number: [id number] [id number] Repository [address]Zdp: 330) Date:2018-05-12 [phone] () 8730ATTN: [place] [address]JB: 05/12/2018 Secondary NOT GIVENUNK [place] Insurance:SELF PAY [facility] Number: Effective Repository Date:2018-05-12 05/04/2018 CHRISSIE L Primary [facility]E [facility]: Insurance:CARESOURCE SHAYEDOB: [facility] MEDICAIDPolicy Number: [id number] Repository [address] [id number] [address] [place] [address] Date:2018-04-234[place] [address]~LUCYGOOSE [id number] 44559Eiw: (475) [email or web address]@LIVE.Berta Name:[phone] : [phone], [place] (HP) (HP) [address]OC: (wp) [phone] 04/25/2018 CHRISSIE L Primary CHRISSIE L Zak [id number] Insurance:CARESOURCEPo JOHNSONDOB: [facility] licy Number: [id number] [id number] Repository [address]Lqn: (937) Date:2018-04-25[phone] () 2628ATTN: [place] [address]CB: 04/25/2018 Secondary NOT GIVENUNK [place] Insurance:SELF PAY [facility] Number: Effective Repository Date:2018-04-25 04/14/2018 CHRISSIE L Primary [facility]E L [facility] Insurance:CARESOURCE JOHNSONDOB: [facility] OUTPATIENTPolicy [id number] [facility] Number: 05/27 [facility] Repository [address] [place] [address] [id number] [place] [id number]: Date:Plan Name:X3 [phone] () 04/08/2018 CHRISSIE L Primary CHRISSIE L [facility] JOHNSONDOB: Insurance:CARESOURCE JOHNSONDOB: [facility] MEDICAIDPolicy Number: [id number] Repository [address] [id number] [address] [place] [address] Date:2018-04-08 - [place] [address]~LUCYGOOSE [id number] 27[address]Xou: (224) [email or web address] Name:[phone] : [phone], [place] () () [address]NP: () [phone] 04/02/2018 CHRISSIE L Primary CHRISSIE L Zak [id number] Insurance:CARESOURCEPo JOHNSONDOB: [facility] Preo DRAPT licy Number: [id number] [id number] Repository [address]Ujn: (330) Date:2018-04-02P [phone] () 8730ATTN: [place] [address]DK: 04/02/2018 Secondary NOT GIVENUNK Zak Insurance:SELF PAY [facility] Number: Effective Repository Date:2018-04-02 03/05/2018 CHRISSIE L Primary CHRISSIE L Zak [id number] Insurance:CARESOURCEPo JOHNSONDOB: [facility] HospitalAPT lic Number: [id number] [id number] Repository [address]Brf: (330) Date:2018-03-05P [phone] () 1455ATTN: [place] [address]IN: 03/05/2018 Secondary NOT GIVENUNK Zak Insurance:SELF PAY [facility] Number: Effective Repository Date:2018-03-05 02/23/2018 CHRISSIE L Primary CHRISSIE L [place] [id number] Insurance:CARESOURCPETEo SHAYEDOB: [facility] BEBE BESOSAPT lic Number: [id number] [id number] Repository [address]Kul: (330) Date:2018-02-23[phone] () 6964ATTN: [place] [address]XR: 02/23/2018 Secondary NOT GIVENUNK [place] Insurance:SELF PAY [facility] Number: Effective Repository Date:2018-02-23 02/05/2018 CHRISSIE L Primary [facility]ISSIE L [facility]: Insurance:CARESOURCE SHAYEDOB: [facility] MEDICAIDPolicy Number: [id number] Repository [address] [id number] [address], [place] Date:2018-02-02 [place], [place] [address]~LUCYGOOSE [id number] 79[address]Wwx: (330) [email or web address] Name:[phone] : ([phone]) [place], [place] () () [address]DS: (WP) [phone] 01/09/2018 CHRISSIE L Primary CHRISSIE [facility] HospitalB: Insurance:[facility] HOSPITALREYMUNDO CRSHRIN[facility]IL[facility]: [facility] MEDICAIDPolicy Number: [id number] Repository [address] [id number] [address] [place] [address], [place] Date:2018-01-06 [facility] [place] [address]~LUCYGOOSE [id number] 24[address]Fjv: (330) [email or web address] Name:[phone] : [phone]) [place], [place] () () [address]PY: (WP) [phone] 12/31/2017 CHRISSIE L Primary CHRISSIE L Critical access hospitalB: Insurance:[facility]ITALJason CRSHRIN[facility] CHIL[facility]EN'[facility]: [facility] MEDICAIDPolicy Number: [id number] Repository [address] [id number] [address], [place] Date:2017-12-19 [place], [place] [address]~LUCYGOOSE [id number] 53623Ubb: (330) [email or web address] Name:[phone] : [phone], [place] () (HP) [phone]: (WP) [phone] 12/25/2017 CHRISSIE L Primary CHRISSIE L [place] [id number] Insurance:CARESOURCEPo JOHNSONDOB: [facility] HospitalAPT licy Number: [id number] [id number] Repository [address]Gkq: (330) Date:2017-12-25[phone] () 8783ATTN: [place] [address]KD: 12/25/2017 Secondary NOT GIVENUNK [place] Insurance:SELF PAY [facility] Number: Effective Repository Date:2017-12-25 12/01/2017 CHRISSIE L Primary CHRISSIE L Mumtaz Carranza JOHANB: Insurance:[facility] JOHANB: [facility] [id number] [facility] [id number] RT Number: 05/27 E [place] Repository 4[place], [place] [id number] [place], [place] [id number]: Date:Plan Name:X3 [phone] () 11/24/2017 CHRISSIE L Primary CHRISSIE L [place] [id number] Insurance:CARESOURCEPo SHAYEDOB: [facility] Number: [id number] [id number] Repository [address]Utg: (330) Date:2017-11-24P [phone] () 8726ATTN: [place] [address]MW: 11/24/2017 Secondary NOT GIVENUNK Zak Insurance:SELF PAY [facility] Number: Effective Repository Date:2017-11-24 11/22/2017 CHRISSIE L Primary CHRISSIE L Critical access hospitalB: Insurance:MICKYREYMUNDO AMBRIZB: [facility] [id number] MEDICAIDPolicy Number: [id number] Repository [address] [id number] [address] [place] [address] Date:2017-11-[address] [place] [address]~CHAGO [id number] 97333Dro: (615) [email or web address] Name:[phone] : [phone]) [address], [place] () (HP) [address]SS: () [phone] 11/18/2017 CHRISSIE L Primary CHRISSIE L Zak [id number] Insurance:CARESOURCEPo JOHNSONDOB: [facility] licy Number: [id number] [id number] Repository [address]Jja: (003) Date:2017-11-18[phone] () 0530ATTN: [place] [address]DS: 11/18/2017 Secondary NOT GIVENUNK Zak Insurance:SELF PAY [facility] Number: Effective Repository Date:2017-11-18 11/12/2017 CHRISSIE L Primary CHRISSIE L Zak [id number] Insurance:CARESOURCEPo JOHNSONDOB: [facility] DRAPT licy Number: [id number] [id number] Repository [address]Pww: (330) Date:2017-11-12P [phone] () 8730ATTN: [place] [address]YO: 11/12/2017 Secondary NOT GIVENUNK [place] Insurance:SELF PAY [facility] Number: Effective Repository Date:2017-11-12 11/11/2017 CHRISSIE L Primary CHRISSIE L [place] [id number] Insurance:CARESOURCEPo JOHNSONDOB: [facility] DRAPT licy Number: [id number] [id number] Repository [address]Klx: 330) Date:2017-11-11[phone] () 2555ATTN: [place] [address]FJ: 11/11/2017 Secondary NOT GIVENUNK [place] Insurance:SELF PAY [facility] Number: Effective Repository Date:2017-11-11 11/10/2017 CHRISSIE L Primary CHRISSIE L Critical access hospitalB: Insurance:SERENITY AMBRIZB: [facility] [id number] MEDICAIDSharon Regional Medical Centery Number: [id number] Repository [address] [id number] [address] [place] [address] Date:2017-11-[address] [place] [address]~LUCYGOOSE [id number] 29315Ftz: (956) [email or web address] Name:[phone] : [phone]) [address], [place] () () [phone]: () [phone] 11/03/2017 CHRISSIE L Primary CHRISSIE L [place] [id number] Insurance:CARESOURCEPo SHAYEDOB: [facility] BEBE DRAPT licy Number: [id number] [id number] Repository [address]Xsm: 330) Date:2017-11-03P [phone] () 1141ATTN: [place] [address]UJ: 11/03/2017 Secondary NOT GIVENUNK [place] Insurance:SELF PAY [facility] Number: Effective Repository Date:2017-11-03 10/22/2017 CHRISSIE L Primary CHRISSIE L [place] [id number] Insurance:CAREURCEPo SHAYEDOB: [facility] BEBE [address]AP[address] licy Number: [id number] [id number] Repository [address]Yvz: (330) Date:2017-10-22[phone] () 9870ATTN: [place] [address]OO: 10/22/2017 Secondary NOT GIVENUNK Zak Insurance:SELF PAY [facility] Number: Effective Repository Date:2017-10-22 10/19/2017 CHRISSIE L Primary CHRISSIE L Mumtaz Carranza FINLAYSONB: Insurance:[facility] SHAYEB: [facility] [id number] OUTPATIENTRiddle Hospital [id number] [facility] RT Number: 05/27 Jason CAMPBELL Repository [address] [place] [address] [id number] [place], [place] [id number]: Date:Plan Name:X3 [phone] () 10/09/2017 CHRISSIE L Primary CHRISSIE L Zak [id number] Insurance:[facility] CenterB: [facility] Number: [id number] [id number] Repository [address]Jnw: (330) Date:2017-10-09P [phone] () 8730ATTN: [place] [address]LI: 10/09/2017 Secondary NOT GIVENUNK [place] Insurance:SELF PAY [facility] Number: Effective Repository Date:2017-10-09 09/30/2017 CHRISSIE L Primary CHRISSIE L [place] [id number] Insurance:[facility] HOSPITALPETECarondelet HealthB: [facility] Number: [id number] [id number] Repository [address]Wbd: (330) Date:2017-09-30 [phone] () 1001ATTN: [place] [address]PL: 09/30/2017 Secondary NOT GIVENUNK Zak Insurance:SELF PAY [facility] Number: Effective Repository Date:2017-09-30 09/24/2017 CHRISSIE L Primary CHRISSIE L [facility]B: Insurance:SERENITY SHAYEGALEN: [facility] [id number] MEDICAIDPolcraw[facility] Number: [id number] Repository [address] [id number] [address] [place] [address], [place] Date:2017-09-[address] [place] [address]~LUCYGOOSE [id number] 18971Smg: (056) [email or web address]@LIVE.Berta Name:[phone] : [phone]) [address], [place] () (HP) [address]IP: () [phone] 09/23/2017 CHRISSIE L Primary CHRISSIE L [place] [id number] Insurance:CARESOURCEPo JOHNSONDOB: [facility] [address] licy Number: [id number] [id number] Repository [address]Fxe: 330) Date:2017-09-23[phone] () 7360ATTN: [place] [address]UZ: 09/23/2017 Secondary NOT GIVENUNK Zak Insurance:SELF PAY [facility] Number: Effective Repository Date:2017-09-23 09/20/2017 CHRISSIE L Primary CHRISSIE L Zak [id number] Insurance:CARESOURCEPo JOHNSONDOB: [facility] BEBE [address]APT licy Number: [id number] [id number] Repository [address]Whk: (330) Date:2017-09-20P [phone] () 8730ATTN: [place] [address]UN: 09/20/2017 Secondary NOT GIVENUNK Zak Insurance:SELF PAY [facility] Number: Effective Repository Date:2017-09-20 09/20/2017 CHRISSIE L Primary CHRISSIE L [place] [id number] Insurance:CARESOURCEPo JOHNSONDOB: [facility] BEBE [address]APT licy Number: [id number] [id number] Repository [address]Byf: (330) Date:2017-09-20[phone] () 0847ATTN: [place] [address]GF: 09/20/2017 Secondary NOT GIVENUNK [place] Insurance:SELF PAY [facility] Number: Effective Repository Date:2017-09-20 09/18/2017 CHRISSIE L Primary Chrissie L Mumtaz CRDOB: Insurance:MICKYSOREYMUNDO AmbrizB: [facility] [id number] [facility] [id number] RT Number: 05/27 Jason CAMPBELL [facility] [place], [place] [id number] [place] [id number]: Date:Plan Name:X3 [phone] () 09/14/2017 CHRISSIE L Primary CHRISSIE L [place] [id number] Insurance:CARESOURCEPo SHAYEDOB: [facility] BEBEMUKESH ALVAREZ licy Number: [id number] [id number] Repository [address]Icx: (330) Date:2017-09-14[phone] () 0737ATTN: [place] [address]DY: 09/14/2017 Secondary NOT GIVENUNK [place] Insurance:SELF PAY [facility] Number: Effective Repository Date:2017-09-14 09/08/2017 CHRISSIE L Primary CHRISSIE L [place] [id number] Insurance:CARESOURCEPo JOHNSONDOB: [employer] ConceptsMUKESH ALVAREZ licy Number: [id number] [id number] Repository [address]Icu: (330) Date:2017-09-08 [phone] () 6104ATTN: [place] [address]UI: 09/08/2017 Secondary NOT GIVENUNK Zak Insurance:SELF PAY [facility] Number: Effective Repository Date:2017-09-08 2017 Chrissie L Primary Chrissie L Zak [id number] Insurance:CARESOURCEPo JohnsonDOB: [facility] BEBE MELCHORAPT licy Number: [id number] [id number] Repository [address]Ryt: (330) Date:2017[phone] () 1546ATTN: [place] [address]MD: 2017 Secondary NOT GIVENUNK Zak Insurance:SELF PAY [facility] Number: Effective Repository Date:2017 07/14/2017 Chrissie L Primary Chrissie L Zak [id number] Insurance:Mo Nguyen: [facility] BEBE GARCIA licy Number: [id number] [id number] Repository [address]Eoc: (805) Date:2017-07-14[phone] () 4142ATTN: [place] [address]ZH: 07/14/2017 Secondary NOT GIVENUNK [place] Insurance:SELF PAY [facility] Number: Effective Repository Date:2017-07-14
== END 2018-05-12 16:45 | disposition home or self-care (01) ==
LOC: ED 15:21
PROVIDERS: Emergency Provider Emergency Medicine; Family Provider Family Medicine; PCP Family Medicine
DX: S39.012A Strain of muscle, fascia and tendon of lower back, initial encounter (principal); X58.XXXA Exposure to other specified factors, initial encounter; G89.29 Other chronic pain; K59.00 Constipation, unspecified; I10 Essential (primary) hypertension; Z79.899 Other long term (current) drug therapy; Z72.0 Tobacco use
CPT/HCPCS: 72100; 81001; 99283

== ENCOUNTER 2018-05-25 10:12 | Emergency (ER) | payer MEDICAID, SELFPAY ==
[2018-05-25 10:13] VITALS: BP 106/55; PULSE 59; RESP 14; TEMP 36.7; O2SAT 96; BMI 37.2
--- NOTE | 2018-05-25 10:30 | ED.RN ---
UNABLE TO OBTAIN IV. ER DR MCCULLOUGH. LAB CALLED FOR BLOOD DRAW.
[2018-05-25 11:25] LABS: Absolute Lymphocyte Count 2.02 X10^3/ul (0.83-4.51); Absolute Neutrophil Count 5.1 X10^3/uL (2.0-7.7); Basophil# 0.03 X10^3/uL; Basophil% 0.4 % (0-1); Eosinophil# 0.19 X10^3/uL; Eosinophils% 2.4 % (0-5); Hematocrit 36.8 % (37-47); Lymphocyte # 2.02 X10^3/ul (4.0); Lymphocyte % 25.4 % (19-41); Mean Corp Hgb Conc 32.6 g/gl (32-36); Mean Corpuscular Hgb 30.2 pg (27.0-32.0); Mean Corpuscular Volume 92.7 fL (81-99); Mean Platelet Vol. 10.2 fl (6.2-12.0); Monocyte# 0.54 X10^3/uL; Monocyte% 6.8 % (0-10); Neutrophil # 5.14 X10^3/uL (2.7-7.7); Neutrophil % 64.7 % (47-70); Platelet Count 297 K/mm3 (150-450); RBC Distribution Width CV 12.7 % (11.6-14.6); RBC Distribution Width SD 43.1 fl (35.1-43.9); Red Blood Count 3.97 M/mm3 (4.2-5.4); White Blood Count 7.9 K/mm3 (4.4-11.0)
[2018-05-25 11:31] LABS: POSITIVE COUNT NO; POSITIVE DIFFERENTIAL NO; POSITIVE MORPHOLOGY NO
[2018-05-25 11:52] LABS: Alcohol, Blood (Medical)-Serum < 3.0 mg/dL
[2018-05-25 12:02] LABS: Anion Gap 13 (5-15); BUN 19 mg/dL (7-18); BUN/Creat Ratio 19.4 RATIO (10-20); Calcium,Total 8.6 mg/dL (8.5-10.1); Chloride 108 mmol/L (98-107); Creatinine, Serum 0.98 mg/dL (0.55-1.02); EST Glomerular Filtration Rate 67 mL/min (>60); Est Glom Filt Rate - Afr Amer 81 mL/min (>60); Estimated Creatinine Clearance 63.75 ml/min; Glucose 100 mg/dL (74-106); Sodium Level 141 mmol/L (136-145)
[2018-05-25 12:13] VITALS: BP 124/70; PULSE 59; RESP 16
[2018-05-25 13:53] LABS: Amphetamine Urine VISTA NEGATIVE (<1000 ng/mL); Barbiturate Urine VISTA NEGATIVE (< 200 ng/mL); Benzodiazepine Urine VISTA POSITIVE (< 200 ng/mL); Cocaine Urine VISTA NEGATIVE (< 300 ng/mL); Ecstacy Urine VISTA POSITIVE (< 500 ng/mL); Methadone Urine VISTA NEGATIVE (< 300 ng/mL); PCP Urine VISTA NEGATIVE (< 25 ng/mL); THC Urine VISTA NEGATIVE (< 50 ng/mL); Vista UDS pH Range 5
--- NOTE | 2018-05-25 14:01 | ED.VISSUMM ---
- ER Visit Summary Date of Service: 05/25/18 Chief Complaint: Near syncope History of Present Illness: The patient is a 37 F who presents with near syncopal symptoms. She felt weird at work like she is going to pass out. When she sat down she missed her chair and landed on her backside. She has a history of chronic pain. She has been seen here multiple times. She denies chest pain or shortness of breath. Denies drug or alcohol use. Physical Examination: Vital signs reviewed. HEENT exam unremarkable. Heart is regular rate and rhythm without murmurs. Lungs are clear to auscultation. Abdomen is soft and nontender. Extremities reveal no edema. Skin exam normal. Neurologic exam normal. She is drowsy. Test Results: Laboratory studies are unremarkable. Alcohol normal. Tox screen reveals methamphetamines and benzodiazepine Emergency Department Course and Treatment: Patient denies use of any benzodiazepines at home. There are none on her med list. However, she is positive for this. I feel she is likely drowsy because of taking benzodiazepines. The rest of her exam is unremarkable. I feel she can be discharged home to follow-up with her PCP Treatment Plan: [] Disposition: Discharge Impression: Near syncope This note was generated with [employer] dictation software. It may contain incorrect words, spelling, and punctuation that were not noted in review of the chart prior to signing ED Disposition - Plan for ED Patient: Chief Complaint: Syncope Referrals: Bill Dai MD [Primary Care Provider] -
--- NOTE | 2018-05-25 14:04 | ED.DEP ---
ED Disposition - Plan for ED Patient: Disposition: Home or Assisted Living Chief Complaint: Syncope Instructions: ED Near Syncope Unkn Referrals: Bill Dai MD [Primary Care Provider] -
[2018-05-25 14:16] VITALS: BP 106/77; PULSE 65; RESP 16; O2SAT 96; O2SAT 98
== END 2018-05-25 14:16 | disposition home or self-care (01) ==
PROVIDERS: Emergency Provider Emergency Medicine; Family Provider Family Medicine; PCP Family Medicine
DX: R55 Syncope and collapse (principal); Q23.1 Congenital insufficiency of aortic valve; Z79.899 Other long term (current) drug therapy; Z72.0 Tobacco use
CPT/HCPCS: 36415; 80048; 80307; 80320; 85025; 99284; J7030; A4216; G0480

== ENCOUNTER 2018-08-08 16:46 | Emergency (ER) | payer MEDICAID, SELFPAY ==
[2018-08-08 16:47] VITALS: BP 129/70; PULSE 67; RESP 16; TEMP 35.9; O2SAT 98; BMI 39.5
--- NOTE | 2018-08-08 18:39 | ED.RN ---
MULTIPLE RN'S ATTEMPT IV UNSUCCESSFULLY; EMT AT BS FOR ATTEMPT CONTRAST NEEDED FOR CTA.
--- NOTE | 2018-08-08 19:04 | ED.RN ---
MULTIPLE ATTEMPTS FOR AN IV BY SEVERAL NURSES AND MEDIC. DR SHAIKH AWARE
--- NOTE | 2018-08-08 19:26 | RAD_ITS ---
STUDY: X-RAY CHEST REASON FOR EXAM: Female, 38 years old. Cough. Low-grade fever. TECHNIQUE: PA and lateral views of the chest. COMPARISON: April 02, 2018 FINDINGS: The lungs are clear and expanded. There is no demonstrated pleural abnormality. Sternal cerclage wires are present from a prior sternotomy. The cardiac silhouette is within normal limits. Normal mediastinum and neyda. Normal visualized pulmonary arteries. Normal visualized aortic arch and descending thoracic aorta. Normal visualized thoracic spine. There is a stable right posterior rib deformity consistent with a healed fracture. There is no demonstrated abnormality of the visualized soft tissue structures of the upper abdomen. RAD/Chest PA and Lateral IMPRESSION: No acute cardiopulmonary process. Electronically Signed: Jennifer Pickard MD at 19:53 EDT Tel , Service support ,
[2018-08-08 19:43] LABS: Absolute Lymphocyte Count 2.12 X10^3/ul (0.83-4.51); Absolute Neutrophil Count 6.4 X10^3/uL (2.0-7.7); Basophil# 0.02 X10^3/uL; Basophil% 0.2 % (0-1); Eosinophil# 0.24 X10^3/uL; Eosinophils% 2.4 % (0-5); Hematocrit 37.5 % (37-47); Hemoglobin 12.5 g/dl (12.0-15.0); Lymphocyte # 2.12 X10^3/ul (4.0); Lymphocyte % 21.4 % (19-41); Mean Corp Hgb Conc 33.3 g/gl (32-36); Mean Corpuscular Hgb 29.6 pg (27.0-32.0); Mean Corpuscular Volume 88.9 fL (81-99); Mean Platelet Vol. 11.3 fl (6.2-12.0); Monocyte% 11.1 % (0-10); Neutrophil % 64.7 % (47-70); Platelet Count 307 K/mm3 (150-450); RBC Distribution Width CV 13.6 % (11.6-14.6); RBC Distribution Width SD 44.1 fl (35.1-43.9); Red Blood Count 4.22 M/mm3 (4.2-5.4); White Blood Count 9.9 K/mm3 (4.4-11.0)
[2018-08-08 19:46] LABS: D-Dimer Quantitative (DVT/PE) < 0.27 FEU/ug/m (0.27-0.49); Differential Indicated SCAN CRITERIA MET; POSITIVE COUNT NO; POSITIVE DIFFERENTIAL NO; POSITIVE MORPHOLOGY YES
[2018-08-08 19:54] LABS: Anion Gap 4 (5-15); BUN 21 mg/dL (7-18); BUN/Creat Ratio 19.4 RATIO (10-20); Calcium,Total 8.6 mg/dL (8.5-10.1); Chloride 108 mmol/L (98-107); Creatinine, Serum 1.08 mg/dL (0.55-1.02); EST Glomerular Filtration Rate 60 mL/min (>60); Est Glom Filt Rate - Afr Amer 72 mL/min (>60); Estimated Creatinine Clearance 57.28 ml/min; Glucose 84 mg/dL (74-106); Potassium 4.2 mmol/L (3.5-5.1); Sodium Level 137 mmol/L (136-145)
--- NOTE | 2018-08-08 20:02 | ED.DCSUM_ITS ---
- ER Visit Summary Date of Service: 08/08/18 Chief Complaint: [] History of Present Illness: The patient is a 38 F [cough and shortness of breath presents the emergency department complaint of a cough times 2 weeks. Patient states cough mostly nonproductive. Patient also complaining of some right lung pain for several days. Patient states she has been wheezing intermittently. She does have a history of asthma. Patient's not had any recent travel or surgery although she has had history of PE and DVT. Patient not currently anticoagulated. She is had low-grade temps at home up to 100.] Physical Examination: [HEENT-PERRLA, EOMI. Cranial nerves II through XII grossly intact. TMs clear. Mucous membranes moist. No adenopathy. Cardiovascular-regular rate and rhythm without murmur or ectopy Lungs-clear to auscultation, chest wall stable without crepitus or subcu emphyse ma Abdomen-normoactive bowel sounds, soft, nontender, no rebound or rigidity, no peritoneal signs. Extremities-intact ?4, normal range of motion, normal pulses, atraumatic] Test Results: [Chest x-ray obtained was normal. CBC with differential showed a normal white count. D-dimer was normal at less than 0.27. Chemistries are unremarkable.] Emergency Department Course and Treatment: [Patient was started on doxycycline and prednisone.] Treatment Plan: [Discharged home in stable condition. Patient advised to follow-up with primary care physician 3-5 days.] Disposition: [Discharged home in stable condition] Impression: [Asthmatic bronchitis] This note was generated with [employer] dictation software. It may contain incorrect words, spelling, and punctuation that were not noted in review of the chart prior to signing ED Disposition - Plan for ED Patient: Referrals: Bill Dai MD [Primary Care Provider] -
--- NOTE | 2018-08-08 20:03 | ED.DEP ---
ED Disposition - Plan for ED Patient: Instructions: ED Bronchitis Asthmatic Prescriptions: Benzonatate [Tessalon Perle] 200 mg PO TID PRN PRN #20 cap PRN Reason: Cough Doxycycline 100 mg PO BID #20 cap Prednisone [Deltasone] 20 mg PO BID #10 tab Referrals: Bill Dai MD [Primary Care Provider] - 3-5 Days
[2018-08-08] MEDS: Doxycycline 100 MG CAPSULE PO (20:12)
[2018-08-08] MEDS: predniSONE 20 MG Tablet 40 MG PO (20:12)
[2018-08-08 20:14] VITALS: BP 158/91; PULSE 58; RESP 16; O2SAT 96
[2018-08-08 21:05] LABS: Differential Comment SCANNED; Platelet Estimate ADEQUATE (ADEQ); Reactive Lymphocyte RARE
== END 2018-08-08 20:14 | disposition home or self-care (01) ==
PROVIDERS: Emergency Provider Emergency Medicine; Family Provider Family Medicine; PCP Family Medicine
DX: J45.909 Unspecified asthma, uncomplicated (principal); M79.7 Fibromyalgia; Z79.899 Other long term (current) drug therapy; Z87.01 Personal history of pneumonia (recurrent); Z86.711 Personal history of pulmonary embolism; Z86.718 Personal history of other venous thrombosis and embolism; Z72.0 Tobacco use
CPT/HCPCS: 71046; 80048; 85025; 85379; 99283; A4216

== ENCOUNTER 2018-10-03 14:48 | Emergency (ER) | payer MEDICAID, SELFPAY ==
[2018-10-03 14:49] VITALS: BP 111/69; PULSE 69; RESP 16; TEMP 36.7; O2SAT 96; BMI 39.9
--- NOTE | 2018-10-03 15:00 | ED.VISSUMM ---
- ER Visit Summary Date of Service: 10/03/18 Chief Complaint: Right knee injury History of Present Illness: The patient is a 38 F presents to the emergency department right knee injury. Patient was in her normal state of health. About 2 weeks ago, she was walking up a hill. She lost her balance and twisted her knee. She fell with it behind her. She has had prior knee replacement due to rheumatoid arthritis. She states she is been using ice with some improvement but she still having some difficulty walking. The knee has not been giving out on her. She did not strike her head. She denies other injury. Physical Examination: Urgent care exam is relatively unremarkable. The patient has no gross laxity. There is a small effusion. Her extension is preserved. Pulses are 2+ and symmetric. There is no erythema. There is no evidence of joint infection. Test Results: [] Emergency Department Course and Treatment: There was no gross laxity of the knee. Plain films were obtained. Her prosthesis is intact. Patient was given Tylenol. She will be placed in an Lester wrap for comfort. She was given outpatient with. Follow-up will be discharged home. Treatment Plan: [] Disposition: Discharge Impression: 1. Right knee sprain This note was generated with nPicker dictation software. It may contain incorrect words, spelling, and punctuation that were not noted in review of the chart prior to signing ED Disposition - Plan for ED Patient: Disposition: Home or Assisted Living Instructions: ED Knee Pain UKO Referrals: Bill Dai MD [Primary Care Provider] -
[2018-10-03] MEDS: Acetaminophen 500 MG Tablet 1000 MG PO (15:07)
--- NOTE | 2018-10-03 15:45 | RAD_ITS ---
STUDY: X-RAY - RIGHT KNEE REASON FOR EXAM: Female, 38 years old. Fell 3 weeks ago. Pain. TECHNIQUE: 4 view(s) of the knee. COMPARISON: May 09, 2017 FINDINGS: There is a right knee arthroplasty in place that is grossly stable. There is an indeterminate lucency within the medial aspect of the remaining medial femoral condyle. There is overlying soft tissue swelling. RAD/Knee 4 or More Views IMPRESSION: Indeterminate lucency within the remaining medial femoral condyle, cannot exclude underlying fracture. Electronically Signed: Jennifer Pickard MD at 16:12 EDT Tel , Service support ,
[2018-10-03 16:06] VITALS: RESP 16
== END 2018-10-03 16:07 | disposition home or self-care (01) ==
PROVIDERS: Emergency Provider Emergency Medicine; Family Provider Family Medicine; PCP Family Medicine
DX: S83.91XA Sprain of unspecified site of right knee, initial encounter (principal); X50.1XXA Overexertion from prolonged static or awkward postures, initial encounter; Y93.01 Activity, walking, marching and hiking; Y92.9 Unspecified place or not applicable; I10 Essential (primary) hypertension; Z79.899 Other long term (current) drug therapy
CPT/HCPCS: 73564; 99283

== ENCOUNTER 2018-11-06 14:09 | Emergency (ER) | payer MEDICAID, SELFPAY ==
[2018-11-06 14:10] VITALS: BP 159/88; PULSE 65; RESP 18; TEMP 36.6; O2SAT 94; BMI 38.9
--- NOTE | 2018-11-06 14:19 | CT_ITS ---
STUDY: CT ABDOMEN AND PELVIS WITHOUT CONTRAST REASON FOR EXAM: Female, 38 years old. Right lower quadrant pain. Prior left salpingectomy. RADIATION DOSAGE (If Supplied By Facility): CTDIvol = ( 19.79 ) mGy, DLP = ( 959.32 ) mGycm TECHNIQUE: Transaxial images were obtained from the dome of the diaphragm to the symphysis pubis without oral contrast, and without intravenous contrast. Sagittal and coronal images were reconstructed. Individualized dose optimization techniques were used for this CT. COMPARISON: Comparison is made with prior study dated February 23, 2018. FINDINGS: The visualized lung bases are unremarkable. The visualized portions of the heart are within normal limits. Normal liver. Normal gallbladder and extrahepatic biliary system. Normal spleen. Normal pancreas. Normal bilateral adrenal glands. Normal right kidney. Normal left kidney. There is a small hiatal hernia. Normal small intestine. There are scattered colonic diverticula consistent with diverticulosis. The appendix is visualized and appears normal. Normal abdominal aorta. Normal inferior vena cava. Normal retroperitoneum. Normal urinary bladder. There is a left-sided inguinal hernia containing adipose tissue. Normal osseous structures. CT/Abdomen/Pelvis without Cont IMPRESSION: Scattered sigmoid diverticula. Electronically Signed: Tenzin Persaud, at 15:38 EDT , Service support ,
--- NOTE | 2018-11-06 14:20 | ED.VISSUMM ---
- ER Visit Summary Date of Service: 11/06/18 Chief Complaint: [Abdominal pain] History of Present Illness: The patient is a 38 F [presents the emergency department with abdominal pain that started around 10 AM. Patient states the pain came on rather suddenly. She rates it currently as an 8 out of 10. Patient states the pain is continuous. She has had nausea but no vomiting with it. She denies any diarrhea or blood in her stool. Patient's not had. Quite some time being that she is on the Depakote shot. She denies urinary symptoms. She has had history of kidney stones in the past as well as colitis. Patient has not had a fever.] Physical Examination: [HEENT-PERRLA, EOMI. Cranial nerves II through XII grossly intact. TMs clear. Mucous membranes moist. No adenopathy. Cardiovascular-regular rate and rhythm without murmur or ectopy Lungs-clear to auscultation, chest wall stable without crepitus or subcu emphysema Abdomen-normoactive bowel sounds, soft. Patient has tenderness palpation over right lower quadrant with some guarding. There is no rebound, rigidity, or perineal signs. Extremities-intact ?4, normal range of motion, normal pulses, atraumatic] Test Results: [CBC with differential showing of 8.3, hemoglobin 12.8, hematocrit 30, placed 317. Chemistries unremarkable. Creatinine was 1.24. LFTs were normal. Urinalysis normal. hCG was negative. CT scan of the abdomen and pelvis without contrast showed scattered sigmoid diverticuli otherwise nothing acute.] Emergency Department Course and Treatment: [Patient was medicated with morphine and Zofran. She had good pain relief.] Treatment Plan: [Etiology of patient's pain unclear however she does have history of ulcerative colitis although she has not had any blood in her stool. Patient will be given a prescription for few [place] for pain and advised to follow-up with her primary care physician within next 3 to 5 days. Patient to return if fever, vomiting, bloody stool, or conditions worsen anyway.] Disposition: [Discharged home in stable condition] Impression: Abdominal pain-etiology uncertain [] This note was generated with AR LLCation software. It may contain incorrect words, spelling, and punctuation that were not noted in review of the chart prior to signing ED Disposition - Plan for ED Patient: Referrals: Bill Dai MD [Primary Care Provider] -
[2018-11-06] MEDS: 0.9% Normal Saline 1,000 ML 125 ML IV (14:44)
[2018-11-06] MEDS: Morphine 4 MG/ML Syringe IV (14:44)
[2018-11-06] MEDS: Ondansetron 4 MG/2 ML Vial IV (14:44)
[2018-11-06 14:50] LABS: Absolute Lymphocyte Count 2.01 X10^3/ul (0.83-4.51); Absolute Neutrophil Count 5.1 X10^3/uL (2.0-7.7); Basophil# 0.04 X10^3/uL; Basophil% 0.5 % (0-1); Eosinophil# 0.18 X10^3/uL; Eosinophils% 2.2 % (0-5); Hematocrit 38.2 % (37-47); Hemoglobin 12.8 g/dl (12.0-15.0); Lymphocyte # 2.01 X10^3/ul (4.0); Lymphocyte % 24.3 % (19-41); Mean Corp Hgb Conc 33.5 g/gl (32-36); Mean Corpuscular Hgb 29.8 pg (27.0-32.0); Mean Corpuscular Volume 88.8 fL (81-99); Monocyte# 0.94 X10^3/uL; Monocyte% 11.4 % (0-10); Neutrophil % 61.5 % (47-70); POSITIVE COUNT NO; POSITIVE DIFFERENTIAL NO; POSITIVE MORPHOLOGY NO; Platelet Count 317 K/mm3 (150-450); White Blood Count 8.3 K/mm3 (4.4-11.0)
[2018-11-06 15:00] LABS: ALB/GLOB Ratio 1.2 RATIO (0.9-2.4); AST(SGOT) 22 U/L (15-37); Alanine Aminotransfer ALT/SGPT 25 U/L (13-56); Albumin, Serum 4.2 g/dL (3.2-5.0); Alkaline Phosphatase 55 U/L (45-117); Anion Gap 11 (5-15); BUN 16 mg/dL (7-18); BUN/Creat Ratio 12.9 RATIO (10-20); Calcium,Total 9.1 mg/dL (8.5-10.1); Chloride 105 mmol/L (98-107); Creatinine, Serum 1.24 mg/dL (0.55-1.02); EST Glomerular Filtration Rate 51 mL/min (>60); Est Glom Filt Rate - Afr Amer 62 mL/min (>60); Estimated Creatinine Clearance 49.89 ml/min; Globulin 3.6 g/dL (2.2-4.2); Glucose 72 mg/dL (74-106); Protein, Total 7.8 g/dL (6.4-8.2); Sodium Level 139 mmol/L (136-145)
[2018-11-06 15:21] LABS: Mucous, Urine 0 SEEN /hpf (<or=2+); Red Blood Cells-Urine 0 SEEN /hpf (0-5)
[2018-11-06 15:24] LABS: Color, Urine Yellow (Yellow); Glucose, Dipstick Normal (Normal); Ketone-Dipstick Negative (Negative); Leukocyte Esterase-Dipstick 25 /ul (Negative); Nitrite-Dipstick Negative (Negative); Occult Blood-Urine Negative /ul (Negative); Protein-Dipstick Negative (Negative); Urine Bilirubin Dipstick Negative (Negative); Urine Clarity Sl. Cloudy (Clear); Urine Urobilinogen Normal (Normal); Urine pH 6.5 (5.0 - 8.0)
[2018-11-06 15:27] LABS: Internal QC Validated? YES +Cl - CLEAR BKGD; Pregnancy, Serum, hCG Quali. NEGATIVE Negative
[2018-11-06 15:32] LABS: Bacteria RARE /hpf (None Seen); Squamous Epithelial Cells - UA 0-5 SEEN /hpf (5-10); White Blood Cells 0-5 SEEN /hpf (0-5)
--- NOTE | 2018-11-06 15:56 | DCINST.ED_ITS ---
ED Disposition - Plan for ED Patient: Instructions: ED Abdominal Pain Unkn Cause Prescriptions: Hydrocodone Bitart/Apap 5-325 [[place] 5MG-325MG] 1 tab PO Q4H PRN PRN 2 Days #10 tab PRN Reason: Pain Referrals: Bill Dai MD [Primary Care Provider] - 3-5 Days
[2018-11-06 16:02] VITALS: BP 156/95; PULSE 58; RESP 17; O2SAT 100
--- NOTE | 2018-11-06 16:02 | ED.RN ---
IV DC'ED, CATHETER INTACT, SMALL GAUZE DRESSING PLACED. DISCHARGE INSTRUCTIONS GIVEN TO AND REVIEWED WITH PATIENT, PATIENT DENIES QUESTIONS OR CONCERNS AND VOICES UNDERSTANDING OF DISCHARGE INSTRUCTIONS. PT AMBULATES OUT OF ROOM WITHOUT DIFFICULTY.
== END 2018-11-06 16:03 | disposition home or self-care (01) ==
LOC: ED 14:34
PROVIDERS: Emergency Provider Emergency Medicine; Family Provider Family Medicine; PCP Family Medicine
DX: R10.9 Unspecified abdominal pain (principal); R11.0 Nausea; K51.90 Ulcerative colitis, unspecified, without complications; K57.30 Diverticulosis of large intestine without perforation or abscess without bleeding; Z87.442 Personal history of urinary calculi; Z79.899 Other long term (current) drug therapy; Z72.0 Tobacco use
CPT/HCPCS: 74176; 80053; 81001; 84703; 85025; 96361; 96374; 96375; 99284; J7030; A4216; J2405

== ENCOUNTER 2019-01-21 14:30 | Emergency (ER) | payer MEDICAID, SELFPAY ==
[2019-01-21 14:31] VITALS: BP 140/68; PULSE 80; RESP 17; TEMP 36.8; O2SAT 98; BMI 37.3
--- NOTE | 2019-01-21 15:10 | EKG12_ITS ---
Test Reason : SOB Blood Pressure : / mmHG Vent. Rate : 063 BPM Atrial Rate : 063 BPM P-R Int : 134 ms QRS Dur : 086 ms QT Int : 442 ms P-R-T Axes : 053 027 064 degrees QTc Int : 452 ms Normal sinus rhythm Normal ECG Confirmed by ABHI ADAMS, SOCO ([id number]), editor map PADMINI CARBAJAL ([id number]) on 01/26/2019 10:32:19 AM Referred By: ROLAN Confirmed By:SLOAN MOE MD
--- NOTE | 2019-01-21 15:11 | RAD_ITS ---
STUDY: X-RAY CHEST REASON FOR EXAM: Female, 38 years old. Cough and shortness of breath. 2 day history of right-sided rib pain. TECHNIQUE: PA and lateral views of the chest. COMPARISON: Comparison is made with prior examination dated August 08, 2018. FINDINGS: EKG electrodes are seen. The lungs are clear and expanded. There is no demonstrated pleural abnormality. Sternal cerclage wires are present from a prior sternotomy. The patient is status post aortic valve replacement. Normal mediastinum and neyda. Normal visualized pulmonary arteries. Normal visualized aortic arch and descending thoracic aorta. Normal visualized thoracic spine. Normal visualized ribs, clavicles, and shoulders. There is no demonstrated abnormality of the visualized soft tissue structures of the upper abdomen. RAD/Chest PA and Lateral IMPRESSION: No acute abnormality is seen. Electronically Signed: Tenzin Persaud, at 15:58 EDT , Service support ,
--- NOTE | 2019-01-21 15:40 | ED.DCSUM_ITS ---
History of Present Illness Chief Complaint: Shortness of Breath Detail of Chief Complaint: Right sided pleuritic chest pain Informant: Patient Onset: Today - Patient states cough started today, Yesterday Context: Sudden Onset Timing: Intermittent Quality: Right-sided chest pain is pleuritic Location: Anterior axillary line to posterior axillary line over ribs 6,7,8 and 9 Current Severity: Mild Maximum Severity: Moderate Worsened by: Breathing Relieved by: Nothing Associated Symptoms: Shortness of breath and cough today Narrative: Patient is a 38-year-old woman with history of PE and DVT. First episode was unprovoked per patient. Second episode was after knee surgery. Patient is presently on no anticoagulant. Patient denies constitutional symptoms. She denies ocular, visual or auditory symptoms. She does report nonproductive cough that started today. She denies leg pain, swelling or discoloration. She denies intolerance to greasy or fried foods. She denies abdominal pain. She denies nausea, vomiting or diarrhea. She denies black or maroon stool. Prior similar symptoms: Yes - Pulmonary embolus Recent Illness/Hospitalization: No - Spine injection January 14 - Past Medical History (1) History of pulmonary embolus (PE) Status: Acute (2) History of DVT of lower extremity Status: Acute (3) Drug-induced hyperglycemia Status: Acute (4) Hypokalemia Status: Acute (5) Pneumonia Status: Acute (6) AI (aortic insufficiency) Status: Chronic (7) Anxiety disorder Status: Chronic (8) Borderline personality disorder Status: Chronic (9) Exercise-induced asthma Status: Chronic (10) Fibromyalgia Status: Chronic (11) H/O aortic valve repair Status: Chronic (12) Leiomyosarcoma Status: Chronic (13) Migraine Status: Chronic (14) Pulmonary hypertension Status: Chronic (15) Seizure disorder Status: Chronic (16) Colitis Status: Resolved Past Medical History - Allergies and Home Meds Allergies/Adverse Reactions: Allergies amitriptyline Allergy (Verified 01/21/19 14:31) Other states rhabdomyolosis from it amoxicillin [Amoxicillin] Allergy (Verified 01/21/19 14:31) Rash erythromycin base [Erythromycin Base] Allergy (Verified 01/21/19 14:31) Rash hydroxyzine Allergy (Verified 01/21/19 14:31) Rash levofloxacin [From Levaquin] Allergy (Verified 01/21/19 14:31) Swelling milnacipran Allergy (Verified 01/21/19 14:31) Other states got rhabdomyolysis from it milnacipran HCl [From Savella] Allergy (Verified 01/21/19 14:31) Other states had rhabdomyolysis acetaminophen [From Tylenol] Adverse Reaction (Mild, Verified 01/21/19 14:31) Vomiting Only when taking in large amounts celecoxib [From Celebrex] Adverse Reaction (Verified 01/21/19 14:31) Other suicidal thoughts diphenhydramine HCl [From Benadryl] Adverse Reaction (Verified 01/21/19 14:31) muscle spasms duloxetine HCl [From Cymbalta] Adverse Reaction (Verified 01/21/19 14:31) Other states causes suicidal thoughts meloxicam Adverse Reaction (Verified 01/21/19 14:31) Swelling of legs/chest pain Primary Care Physician: Bill Dai MD [Primary Care Provider] - Prior records reviewed: Yes Surgical History: adenoidectomy, - - 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 repair 2000, mitral valve repair, repair of atrial septal defect. History of , and left oophorectomy. BL TKR by Dr. Lyon at the [facility] in August Smoking Status: Current every day smoker - Family History Maternal Family History: Reports: - - alive age 59: breast cancer, stroke, diabetes,heart attack Paternal Family History: Reports: No pertinent history - alive age 62 Review of Systems General: Denies: Chills, Fever, Sweats Eyes: Denies: Visual changes - bilaterally, Diplopia ENT: Denies: Rhinorrhea, Sore throat Cardiovascular: Reports: Chest pain. Denies: Palpitations, Heart racing Respiratory: Reports: Dyspnea, Cough. Denies: Sputum, Dyspnea on exertion, Orthopnea, Paroxysmal nocturnal dyspnea Gastrointestinal: Denies: Abdominal pain, Nausea, Vomiting, Diarrhea, Melena, Hematochezia Genitourinary: Denies: Dysuria, Hematuria, Frequency Musculoskeletal: Denies: Myalgias, Arthralgias, Back pain, Swelling, Extremity Pain Skin: Denies: Rash, Wounds Neurological: Denies: Headache, Weakness, Numbness Hematologic: Denies: Easy bruising, Easy bleeding Allergy: Denies: Uticaria, Swelling of the mouth Physical Exam Vital Signs/Narrative: Vital Signs Temp Pulse Resp BP Pulse Ox 01/21/19 14:31 98.2 F 80 17 140/68 H 98 Inital Vital Signs reviewed: Yes General: Well nourished, Well developed, No Acute Distress Head: Normocephalic, Atraumatic Eyes: Perrl, EOMI ENT: Moist mucous membranes, No rhinorrhea Neck: Supple, Nontender Cardiovascular: Regular rate, Regular rhythm, No murmurs Respiratory: No distress, CTA bilaterally, Chest nontender Abdomen: Soft, Nontender, Nondistended, Normal bowel sounds, No masses Back: Nontender, Normal Inspection. Negative for: CVA tenderness, Spinal tenderness Extremities: Nontender, No edema, - - There is no asymmetry, swelling, discoloration, leg vein distention, palpable cords or tenderness along the distribution of the deep venous system. Skin: Normal color, No rash, No Trauma. Negative for: Cyanosis, Diaphoresis, Jaundice Neurological: Alert, Oriented x3, Cranial nerves II-XII grossly intact, Normal Strength, Normal Sensation, Normal Gait Psychological: Normal affect, Normal Mood Diagnostic/Tx/Re-eval Chest X-Ray - ED: 2 View, Read by ED Physician, Normal, Heart, Lungs, Mediastinum, Bony Structures, No Acute Disease, Chronic Changes, - - Chest x-ray nose: Normal cardiac silhouette and mediastinum. Osseous structures are normal. Sternal wires are noted. There is no evidence of hiatal hernia. There is no effusion. There is no infiltrate. The chest x-ray is normal. Impressions Chest X-Ray 01/21/19 15:11 IMPRESSION: No acute abnormality is seen. Electronically Signed: Tenzin Persaud, at 15:58 EDT , Service support , 01/21/19 15:11 Chest PA and Lateral [RAD] Stat Laboratory Results 01/21/19 01/21/19 01/21/19 15:32 15:32 15:32 WBC 9.2 RBC 4.19 L Hgb 12.4 Hct 37.9 MCV 90.5 MCH 29.6 MCHC 32.7 RDW Std Deviation 45.6 H RDW Coeff of Beto 13.8 Plt Count 338 MPV 10.9 Immature Gran % (Auto) 0.500 Neut % (Auto) 73.3 H Lymph % (Auto) 15.7 L Kent % (Auto) 8.8 Eos % (Auto) 1.2 Baso % (Auto) 0.5 Absolute Neuts (auto) 6.7 Absolute Lymphs (auto) 1.44 Nucleated RBC % 0 D-Dimer Quant (PE/DVT) 0.45 Sodium 138 Potassium 4.7 Chloride 108 H Carbon Dioxide 22.0 Anion Gap 8 BUN 15 Creatinine 1.03 H Estim Creat Clear Calc 60.06 Est GFR (MDRD) Af Amer 76 Est GFR (MDRD) Non-Af 63 BUN/Creatinine Ratio 14.6 Glucose 104 Calcium 8.9 Patient's work-up is negative. D-dimer is normal. Since d-dimer is normal we will treat for pleurisy. Patient does have history of pleurisy. There is no contraindication to NSAIDs. - EKG Initial EKG Interpretation: Sinus Rhythm - Ventricular rate is 63. MN interval 234 ms. QS duration is 86 ms. QT duration is 142 ms and axis is normal. The EKG is normal. - Medical Decision Making Patient presents with pleuritic chest pain shortness of breath that started yesterday. Symptoms started prior to cough. Patient is not PERC negative. D- dimer was obtained. Basic medical panel was obtained to assess renal function in the event a CTA of the chest is indicated. CBC was obtained to assess white count and H&H as possible expirations for her dyspnea. Chest x-ray was obtained to determine if there is an infiltrate. If there is evidence of pneumonia this would explain her symptoms as well. ED Disposition - Plan for ED Patient: Disposition: Home or Assisted Living Diagnosis: Pleurisy, Cough Instructions: Pleurisy Prescriptions: Naproxen [Naprosyn] 500 mg PO BID #14 tab Prescription Printed Referrals: Bill Dai MD [Primary Care Provider] - 1 Week if not improving
[2019-01-21 15:42] LABS: Absolute Lymphocyte Count 1.44 X10^3/uL (0.83-4.51); Absolute Neutrophil Count 6.7 X10^3/uL (2.0-7.7); Basophil# 0.05 X10^3/uL; Basophil% 0.5 % (0-1); Eosinophil# 0.11 X10^3/uL; Eosinophils% 1.2 % (0-5); Hematocrit 37.9 % (37-47); Hemoglobin 12.4 g/dL (12.0-15.0); Lymphocyte # 1.44 X10^3/ul (4.0); Lymphocyte % 15.7 % (19-41); Mean Corp Hgb Conc 32.7 g/dL (32-36); Mean Corpuscular Hgb 29.6 pg (27.0-32.0); Mean Corpuscular Volume 90.5 fL (81-99); Mean Platelet Vol. 10.9 fl (6.2-12.0); Monocyte# 0.81 X10^3/uL; Monocyte% 8.8 % (0-10); NRBC Flagged by Analyzer 0 % (0-5); Neutrophil # 6.71 X10^3/uL (2.7-7.7); Neutrophil % 73.3 % (47-70); Platelet Count 338 K/mm3 (150-450); RBC Distribution Width CV 13.8 % (11.6-14.6); RBC Distribution Width SD 45.6 fl (35.1-43.9); Red Blood Count 4.19 M/mm3 (4.2-5.4); White Blood Count 9.2 K/mm3 (4.4-11.0)
[2019-01-21 15:59] LABS: D-Dimer Quantitative (DVT/PE) 0.45 FEU/ug/m (0.27-0.49)
[2019-01-21 16:02] LABS: Anion Gap 8 (5-15); BUN 15 mg/dL (7-18); BUN/Creat Ratio 14.6 RATIO (10-20); Calcium,Total 8.9 mg/dL (8.5-10.1); Chloride 108 mmol/L (98-107); Creatinine, Serum 1.03 mg/dL (0.55-1.02); EST Glomerular Filtration Rate 63 mL/min (>60); Est Glom Filt Rate - Afr Amer 76 mL/min (>60); Estimated Creatinine Clearance 60.06 ml/min; Glucose 104 mg/dL (74-106); Potassium 4.7 mmol/L (3.5-5.1); Sodium Level 138 mmol/L (136-145)
[2019-01-21] MEDS: Naproxen 250 MG Tablet 500 MG PO (16:38)
[2019-01-21 16:41] VITALS: BP 138/74; PULSE 83; RESP 18; O2SAT 97
--- NOTE | 2019-01-21 16:42 | ED.RN ---
THIS NURSE REVIEWED D/C INSTRUCTIONS WITH PT. PT VERBALIZED UNDERSTANDING OF INSTRUCTIONS. IV D/C. IV CATHETER INTACT. PT TOLERATED WELL. PT DENIES FURTHER NEEDS OR QUESTIONS AT THIS TIME. PT AMBULATES FORM ROOM ON OWN WITHOUT ASSISTANCE FROM STAFF
== END 2019-01-21 16:42 | disposition home or self-care (01) ==
PROVIDERS: Emergency Provider Emergency Medicine; Family Provider Family Medicine; PCP Family Medicine
DX: R09.1 Pleurisy (principal); R05 Cough; I35.1 Nonrheumatic aortic (valve) insufficiency; F41.9 Anxiety disorder, unspecified; F60.3 Borderline personality disorder; J45.990 Exercise induced bronchospasm; M79.7 Fibromyalgia; G43.909 Migraine, unspecified, not intractable, without status migrainosus; I27.20 Pulmonary hypertension, unspecified; G40.909 Epilepsy, unspecified, not intractable, without status epilepticus; Z86.711 Personal history of pulmonary embolism; Z86.718 Personal history of other venous thrombosis and embolism; Z87.01 Personal history of pneumonia (recurrent); Z87.19 Personal history of other diseases of the digestive system; Z87.74 Personal history of (corrected) congenital malformations of heart and circulatory system; Z85.831 Personal history of malignant neoplasm of soft tissue; Z95.2 Presence of prosthetic heart valve; Z79.899 Other long term (current) drug therapy; F17.200 Nicotine dependence, unspecified, uncomplicated
CPT/HCPCS: 71046; 80048; 85025; 85379; 93005; 99285; A4216

== ENCOUNTER 2019-03-26 20:38 | Emergency (ER) | payer MEDICAID, SELFPAY ==
[2019-03-26 20:39] VITALS: BP 132/75; PULSE 79; RESP 16; TEMP 37.1; O2SAT 97; BMI 36.1
--- NOTE | 2019-03-26 21:10 | RAD_ITS ---
STUDY: X-RAY - UNILATERAL RIBS ( RIGHT ) WITH CHEST REASON FOR EXAM: Female, 38 years old. Right lower rib pain after fall. TECHNIQUE - RIBS: 4 view(s) of the ribs. TECHNIQUE - CHEST: Single PA view of the chest. COMPARISON: January 21, 2019. FINDINGS - RIBS: Normal visualized ribs without a demonstrated fracture. FINDINGS - CHEST: The lungs are clear and expanded. There is no demonstrated pleural abnormality. Sternal cerclage wires are present from a prior sternotomy. The heart is normal in size. Normal mediastinum and neyda. Normal visualized pulmonary arteries. Normal visualized aortic arch and descending thoracic aorta. Normal visualized thoracic spine. Normal visualized ribs, clavicles, and shoulders. There is no demonstrated abnormality of the visualized soft tissue structures of the upper abdomen. RAD/Ribs Uni Min 3V w/PA Chest IMPRESSION: RIBS: Normal x-ray examination of the ribs. CHEST: No acute cardiopulmonary disease or major interval change. Electronically Signed: Harris Ochoa DO at 21:50 EDT Tel [phone], Service support ,
--- NOTE | 2019-03-26 21:12 | RAD_ITS ---
STUDY: X-RAY - PELVIS AND RIGHT HIP REASON FOR EXAM: Female, 38 years old. Right hip pain after fall. TECHNIQUE: 3 views of the pelvis and hip. COMPARISON: Left hip with pelvis, October 09, 2017. FINDINGS: There is a non-specific bowel gas pattern. Normal visualized soft tissue structures. Normal bilateral iliac wings, sacroiliac joints and visualized sacrum. Normal bilateral superior and inferior pubic rami. Normal pubic symphysis. Normal bilateral ischial tuberosities. There is been interval internal fixation of the femoral head and neck and compared to prior study. There is evidence of intratrochanteric fracture with maintenance of normal alignment. Normal acetabulum. Normal hip joint. RAD/HIP, UNI W/ Pelvis 2-3 Views IMPRESSION: No evidence of internal fixation of the left femoral neck. There is no evidence of acute fracture, displacement or dislocation. Electronically Signed: Harris Ochoa DO at 21:52 EDT Tel [phone], Service support ,
--- NOTE | 2019-03-26 21:14 | ED.DCSUM_ITS ---
- ER Visit Summary Date of Service: 03/26/19 Chief Complaint: Fall History of Present Illness: The patient is a 38 F who presents after a fall that occurred today. Patient states she tripped and fell onto her right side. Patient states she had her right lower chest on a metal frame on her bed. Patient also states she landed on her right hip. Patient states she had recent surgery on her right hip. Patient states she was able to ambulate after the fall. Patient states her rib pain is worse with certain movements and deep breathing. Patient states her hip pain is worse with movement. Patient denies any paresthesias or weakness. Patient denies any shortness of breath. Physical Examination: Vital signs are stable. Patient is afebrile. Patient is in no acute distress. Oral mucosa is pink and moist. Neck is supple. Trachea is midline. There is no JVD. Heart was regular rate and rhythm. Lungs are clear and equal bilaterally. There is some right lower chest tenderness. There is no edema or ecchymosis. Musculoskeletal exam reveals tenderness over the right hip. There is no bony crepitance or step-off. There is no deformity noted. Range of motion was slightly limited in all motion secondary to pain. Cranial nerves II through XII are intact. There are no focal motor or sensory deficits noted. Test Results: X-rays of the right hip and right ribs were obtained. There is no acute fracture noted. Emergency Department Course and Treatment: Patient was advised of her x-ray findings. Patient was instructed to use ice to the area. Patient was instructed to take Tylenol or ibuprofen as needed for pain. Patient was instructed to follow-up with her primary care physician in 5 to 7 days. Patient understood and was agreeable with the plan. All questions were answered. Disposition: Discharge home Impression: 1. Right hip contusion 2. Chest wall contusion This note was generated with [employer] dictation software. It may contain incorrect words, spelling, and punctuation that were not noted in review of the chart prior to signing ED Disposition - Plan for ED Patient: Disposition: Home or Assisted Living Diagnosis: Contusion of right hip, initial encounter, Chest wall contusion Instructions: FALL, Mechanical, CONTUSION, Lower Extremity, Chest Wall Contusion Referrals: Bill Dai MD [Primary Care Provider] - 5-7 Days
[2019-03-26 23:17] VITALS: BP 145/82; PULSE 93; RESP 17; O2SAT 97
== END 2019-03-26 23:18 | disposition home or self-care (01) ==
PROVIDERS: Emergency Provider Emergency Medicine; Family Provider Family Medicine; PCP Family Medicine
DX: S70.01XA Contusion of right hip, initial encounter (principal); S20.211A Contusion of right front wall of thorax, initial encounter; W01.0XXA Fall on same level from slipping, tripping and stumbling without subsequent striking against object, initial encounter; Y93.9 Activity, unspecified; F32.9 Major depressive disorder, single episode, unspecified; Z72.0 Tobacco use; Z79.899 Other long term (current) drug therapy; Z86.73 Personal history of transient ischemic attack (TIA), and cerebral infarction without residual deficits
CPT/HCPCS: 71101; 73502; 99282

== ENCOUNTER 2019-04-15 16:52 | Emergency (ER) | payer MEDICAID, SELFPAY ==
[2019-04-15 16:53] VITALS: BP 137/74; PULSE 80; RESP 16; TEMP 36.8; O2SAT 97; BMI 35.4
--- NOTE | 2019-04-15 17:09 | RAD_ITS ---
STUDY: X-RAY CHEST REASON FOR EXAM: Female, 38 years old. Cough and shortness of breath. TECHNIQUE: Frontal and lateral views of the chest. COMPARISON: 03/26/2019. FINDINGS: The lungs are clear and expanded. There is no demonstrated pleural abnormality. Normal size heart. Previous median sternotomy sutures. Normal mediastinum and neyda. Normal visualized pulmonary arteries. Normal visualized aortic arch and descending thoracic aorta. Normal visualized thoracic spine. Normal visualized ribs, clavicles, and shoulders. There is no demonstrated abnormality of the visualized soft tissue structures of the upper abdomen. RAD/Chest PA and Lateral IMPRESSION: No evidence for acute chest disease. Electronically Signed: Narinder Trinidad MD at 18:31 EST , Service support ,
[2019-04-15 17:15] VITALS: PULSE 96; RESP 20; O2SAT 96
[2019-04-15] MEDS: Ipratropium/Albuterol Sulfate 3 ML AMPUL.NEB INHALATION (17:16)
--- NOTE | 2019-04-15 17:19 | ED.VISSUMM ---
- ER Visit Summary Date of Service: 04/15/19 Chief Complaint: Shortness of breath History of Present Illness: The patient is a 38 F who presents with shortness of breath that began today. Patient states it has gradually gotten worse throughout the day today. Patient states that is been constant. Patient states that is worse with movement and exertion. Patient states she has been taking her inhalers without any relief. Patient admits to some upper respiratory congestion. Patient admits to a cough but denies any sputum production. Patient denies any fevers or chills. Patient denies any chest pain or palpitations. Physical Examination: Vital signs are stable. Patient is afebrile. Patient is in no acute distress. Oral mucosa is pink and moist. Neck is supple. Trachea is midline. There is no JVD. Heart was regular rate and rhythm. Lungs show diffuse expiratory wheezing. There is good respiratory effort noted. There are no retractions noted. Abdomen is soft. Bowel sounds are normal. There is no tenderness. Cranial nerves II through XII are intact. There are no focal motor or sensory deficits noted. Test Results: D and basic metabolic profile were obtained and were within normal limits. PA and lateral chest x-ray was obtained. There is no acute cardiopulmonary process. This was interpreted by the radiologist and myself. Emergency Department Course and Treatment: Patient was given a DuoNeb aerosol here. Patient was given prednisone. Patient was still having some wheezing on reevaluation. Patient was given a repeat dose of albuterol. Patient was feeling better after this. Patient was given a prescription for prednisone. Patient was also given a prescription for albuterol nebulizer refills. Patient was instructed to follow-up with her primary care physician in 5 to 7 days. Patient understood and was agreeable with the plan. All questions were answered. Disposition: Discharge home Impression: Asthma exacerbation This note was generated with [employer] dictation software. It may contain incorrect words, spelling, and punctuation that were not noted in review of the chart prior to signing ED Disposition - Plan for ED Patient: Disposition: Home or Assisted Living Diagnosis: Asthma exacerbation Instructions: ASTHMA, Acute (Adult) Prescriptions: Prednisone [Deltasone] 60 mg PO DAILY #12 tab Prescription Printed Albuterol Aerosols [Ventolin Aerosols] 2.5 mg INHALATION Q4H PRN #25 vial Prescription Printed Referrals: Bill Dai MD [Primary Care Provider] - 5-7 Days
[2019-04-15] MEDS: predniSONE 20 MG Tablet 60 MG PO (18:15)
[2019-04-15 18:18] VITALS: BP 156/85; PULSE 76; RESP 12
[2019-04-15 18:22] LABS: Absolute Lymphocyte Count 0.76 X10^3/uL (0.83-4.51); Absolute Neutrophil Count 8.7 X10^3/uL (2.0-7.7); Basophil# 0.02 X10^3/uL; Basophil% 0.2 % (0-1); Eosinophil# 0.06 X10^3/uL; Eosinophils% 0.6 % (0-5); Hematocrit 35.5 % (37-47); Hemoglobin 11.6 g/dL (12.0-15.0); Lymphocyte # 0.76 X10^3/ul (4.0); Lymphocyte % 7.1 % (19-41); Mean Corp Hgb Conc 32.7 g/dL (32-36); Mean Corpuscular Hgb 29.9 pg (27.0-32.0); Mean Corpuscular Volume 91.5 fL (81-99); Mean Platelet Vol. 10.9 fl (6.2-12.0); Monocyte% 10.3 % (0-10); NRBC Flagged by Analyzer 0 % (0-5); Neutrophil # 8.72 X10^3/uL (2.7-7.7); Neutrophil % 81.3 % (47-70); Platelet Count 262 K/mm3 (150-450); RBC Distribution Width CV 14.6 % (11.6-14.6); RBC Distribution Width SD 49.5 fl (35.1-43.9); Red Blood Count 3.88 M/mm3 (4.2-5.4); White Blood Count 10.7 K/mm3 (4.4-11.0)
[2019-04-15 18:36] LABS: Anion Gap 9 (5-15); BUN 16 mg/dL (7-18); BUN/Creat Ratio 16.4 RATIO (10-20); Calcium,Total 8.9 mg/dL (8.5-10.1); Chloride 107 mmol/L (98-107); Creatinine, Serum 0.98 mg/dL (0.55-1.02); EST Glomerular Filtration Rate 67 mL/min (>60); Est Glom Filt Rate - Afr Amer 81 mL/min (>60); Estimated Creatinine Clearance 63.12 ml/min; Glucose 89 mg/dL (74-106); Potassium 3.8 mmol/L (3.5-5.1); Sodium Level 138 mmol/L (136-145)
[2019-04-15 19:29] VITALS: PULSE 75; RESP 20
[2019-04-15] MEDS: Albuterol 2.5 MG/3 ML VIAL.NEB. INHALATION (19:29)
[2019-04-15 20:27] VITALS: PULSE 81; RESP 16; O2SAT 98
== END 2019-04-15 20:34 | disposition home or self-care (01) ==
PROVIDERS: Emergency Provider Emergency Medicine; Family Provider Family Medicine; PCP Family Medicine
DX: J45.901 Unspecified asthma with (acute) exacerbation (principal); M79.7 Fibromyalgia; E66.9 Obesity, unspecified; Z68.35 Body mass index [BMI] 35.0-35.9, adult
CPT/HCPCS: 71046; 80048; 85025; 94640; 99251; 99283; A4216; G0463

== ENCOUNTER 2019-04-23 08:32 | Emergency (ER) | payer MEDICAID, SELFPAY ==
[2019-04-23 08:34] VITALS: BP 112/70; PULSE 64; RESP 14; TEMP 36.6; O2SAT 98; BMI 36.5
--- NOTE | 2019-04-23 08:43 | RAD_ITS ---
STUDY: X-RAY CHEST REASON FOR EXAM: Female, 38 years old. A TECHNIQUE: 1 view COMPARISON: April 15, 2019 FINDINGS: There is poor inspiration. There is now noted the bilateral central patchy changes involving both lung dang new finding since the last study. The cardiac silhouette is mildly enlarged. No pleural effusion or pneumothorax. The trachea is in the midline. The bony structures are intact. Multiple metallic stitches seen along the sternum from previous surgery RAD/Chest 1 View (Portable) IMPRESSION: Evidence of patchy changes central lung dang that needs follow-up. New since the last exam. Electronically Signed: Petr Jimenez, at 10:05 EST Tel , Service support ,
--- NOTE | 2019-04-23 08:43 | CT_ITS ---
STUDY: CT BRAIN WITHOUT CONTRAST REASON FOR EXAM: Female, 38 years old. RADIATION DOSAGE (If Supplied By Facility): CTDIvol = ( 44.99 ) mGy, DLP = ( 745.49 ) mGycm TECHNIQUE: Transaxial CT imaging of the brain was performed without administration of intravenous contrast material. Individualized dose optimization techniques were used for this CT. COMPARISON: No relevant priors. FINDINGS: The ventricular system and cerebral sulci are within normal limits. A tiny area of lucency noted in the head of the caudate nucleus on the right side could represents lacunar infarct. Otherwise no evidence of increased or decreased brain density. No epidural, subdural or intracerebral hematoma. The skull base and cranial cranial vault are intact. The sinuses and orbits are unremarkable. CT/Brain/Head without Contrast IMPRESSION: Tiny area of lucency in the region of the head of the caudate nucleus on the right side could represent small lacunar infarct. Electronically Signed: Petr Jimenez, at 9:58 EST Tel , Service support ,
--- NOTE | 2019-04-23 08:44 | EKG12_ITS ---
Test Reason : DYSRHYTHMIA Blood Pressure : / mmHG Vent. Rate : 054 BPM Atrial Rate : 054 BPM P-R Int : 140 ms QRS Dur : 086 ms QT Int : 516 ms P-R-T Axes : 050 018 045 degrees QTc Int : 489 ms Sinus bradycardia Nonspecific ST and T wave abnormality Prolonged QT Abnormal ECG Confirmed by CIERA ADAMS, MEENA ([id number]), features editor OANH AGARWAL ([id number]) on 04/26/2019 11:32:59 AM Referred By: ANCA Confirmed By:MEENA VANG MD
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
[2019-04-23 08:57] VITALS: BP 119/79; PULSE 53; RESP 20; O2SAT 98
[2019-04-23 09:14] LABS: Absolute Lymphocyte Count 1.78 X10^3/uL (0.83-4.51); Absolute Neutrophil Count 10.2 X10^3/uL (2.0-7.7); Basophil# 0.04 X10^3/uL; Basophil% 0.3 % (0-1); Eosinophil# 0.39 X10^3/uL; Eosinophils% 2.9 % (0-5); Hemoglobin 9.6 g/dL (12.0-15.0); Lymphocyte # 1.78 X10^3/ul (4.0); Mean Corpuscular Hgb 29.3 pg (27.0-32.0); Mean Corpuscular Volume 91.5 fL (81-99); Mean Platelet Vol. 10.7 fl (6.2-12.0); Monocyte# 0.78 X10^3/uL; Monocyte% 5.7 % (0-10); NRBC Flagged by Analyzer 0 % (0-5); Neutrophil % 74.7 % (47-70); Platelet Count 309 K/mm3 (150-450); RBC Distribution Width CV 14.6 % (11.6-14.6); RBC Distribution Width SD 49.1 fl (35.1-43.9); Red Blood Count 3.28 M/mm3 (4.2-5.4); White Blood Count 13.7 K/mm3 (4.4-11.0)
[2019-04-23 09:28] LABS: Anion Gap 8 (5-15); BUN 19 mg/dL (7-18); BUN/Creat Ratio 23.3 RATIO (10-20); Calcium,Total 8.2 mg/dL (8.5-10.1); Chloride 110 mmol/L (98-107); Creatinine, Serum 0.82 mg/dL (0.55-1.02); EST Glomerular Filtration Rate 82 mL/min (>60); Est Glom Filt Rate - Afr Amer 100 mL/min (>60); Estimated Creatinine Clearance 78.75 ml/min; Glucose 116 mg/dL (74-106); Potassium 3.7 mmol/L (3.5-5.1); Sodium Level 141 mmol/L (136-145)
[2019-04-23 09:38] LABS: Alcohol, Blood (Medical)-Serum < 3.0 mg/dL
--- NOTE | 2019-04-23 09:43 | RAD_ITS ---
STUDY: X-RAY - PELVIS AND RIGHT HIP REASON FOR EXAM: Female, 38 years old. TECHNIQUE: 3 views views of the pelvis and hip. COMPARISON: March 26, 2019. FINDINGS: Again noted evidence of hardware and screws transfixing the fracture of the neck of the right femur no significant change identified. No obvious complicating process seen. The right hip joint is preserved. The right acetabulum is unremarkable. Both iliac bones and left hip are within normal limits. RAD/HIP, UNI W/ Pelvis 2-3 Views IMPRESSION: Hardware fixing the femoral neck on the right side in good position without change since the last study. Electronically Signed: Petr Jimenez, at 10:18 EST Tel , Service support ,
[2019-04-23 10:09] LABS: Red Blood Cells-Urine 0 SEEN /hpf (0-5); White Blood Cells 0 SEEN /hpf (0-5)
[2019-04-23 10:12] LABS: Color, Urine Yellow (Yellow); Glucose, Dipstick Normal (Normal); Ketone-Dipstick Negative (Negative); Leukocyte Esterase-Dipstick Negative /ul (Negative); Nitrite-Dipstick Negative (Negative); Occult Blood-Urine Negative /ul (Negative); Protein-Dipstick Negative (Negative); Urine Bilirubin Dipstick Negative (Negative); Urine Clarity Clear (Clear); Urine Urobilinogen Normal (Normal)
[2019-04-23 10:33] LABS: Bacteria 1+ /hpf (None Seen); Mucous, Urine 2+ /hpf (<or=2+); Squamous Epithelial Cells - UA 0-5 SEEN /hpf (5-10)
[2019-04-23 11:03] VITALS: BP 143/89; PULSE 63; RESP 12; O2SAT 98
--- NOTE | 2019-04-23 12:00 | ED.DEP ---
ED Disposition - Plan for ED Patient: Disposition: Home or Assisted Living Referrals: Bill Dai MD [Primary Care Provider] - 3-5 Days Additional Instructions: Up with your doctor. Return to ER feeling worse.
[2019-04-23 12:15] VITALS: BP 148/90; PULSE 62; RESP 16; O2SAT 95
== END 2019-04-23 12:18 | disposition home or self-care (01) ==
PROVIDERS: Emergency Provider Emergency Medicine; Family Provider Family Medicine; PCP Family Medicine
DX: R41.82 Altered mental status, unspecified (principal); F17.200 Nicotine dependence, unspecified, uncomplicated; Z98.890 Other specified postprocedural states; Z79.899 Other long term (current) drug therapy; Z86.73 Personal history of transient ischemic attack (TIA), and cerebral infarction without residual deficits
CPT/HCPCS: 70450; 71045; 73502; 80048; 80320; 81001; 85025; 93005; 99285; A4216; G0480

== ENCOUNTER → 2020-04-23 07:21 | Outpatient (REF) | payer MEDICAID, SELFPAY | LOC: LABSPEC 07:21 | PROVIDERS: PCP Family Medicine; Visit Provider Family Medicine | DX: Z03.818 Encounter for observation for suspected exposure to other biological agents ruled out (principal) | CPT/HCPCS: 87635; U0003 ==

== ENCOUNTER 2020-05-25 06:53 | Emergency (ER) | payer MEDICAID, SELFPAY ==
[2020-05-25 06:53] VITALS: BP 147/92; PULSE 74; RESP 17; TEMP 36.6; O2SAT 98; BMI 35.3
[2020-05-25 06:57] VITALS: BP 147/92; PULSE 74; RESP 17; TEMP 36.6; O2SAT 98
--- NOTE | 2020-05-25 07:14 | EKG12_ITS ---
Test Reason : Blood Pressure : / mmHG Vent. Rate : 076 BPM Atrial Rate : 076 BPM P-R Int : 134 ms QRS Dur : 088 ms QT Int : 410 ms P-R-T Axes : 070 050 070 degrees QTc Int : 461 ms Normal sinus rhythm Nonspecific ST abnormality Abnormal ECG Confirmed by CIERA ADAMS, MEENA ([id number]), publication editor DIOR LE ([id number]) on 05/29/2020 9:00:52 AM Referred By: Confirmed By:MEENA VANG MD
--- NOTE | 2020-05-25 07:14 | RAD_ITS ---
STUDY: X-RAY CHEST REASON FOR EXAM: Female, 39 years old. CHEST PAIN, SOB TECHNIQUE: Single AP portable view of the chest. COMPARISON: None. FINDINGS: The lungs are clear and expanded. There is no demonstrated pleural abnormality. Sternal cerclage wires are present from a prior sternotomy. Normal mediastinum and neyda. Normal visualized pulmonary arteries. Normal visualized aortic arch and descending thoracic aorta. Normal visualized thoracic spine. There is a nondisplaced fracture of the right seventh rib. There is no demonstrated abnormality of the visualized soft tissue structures of the upper abdomen. RAD/Chest 1 View (Portable) IMPRESSION: Nondisplaced fracture of the right seventh rib. Electronically Signed: Rui Ward, at 7:50 EST Tel , Service support ,
--- NOTE | 2020-05-25 07:15 | ED.DCSUM_ITS ---
History of Present Illness Chief Complaint: Shortness of Breath Informant: Patient Onset: Days - 3 Activity at onset: Unknown - Gradual onset Timing: Continuous Location: Right Chest Current Severity: Moderate Maximum Severity: Moderate Worsened By: Breathing, Coughing Relieved By: Rest Associated Symptoms: Dyspnea - w/ exertion, Cough. Negative for: Nausea, Vomiting, Diaphoresis, Fever, Lightheadedness, Palpitations Narrative: Patient presenting with 3 days of symptoms, started with pleuritic right lateral chest pain, followed by cough dyspnea with exertion, myalgias, mild headaches off and on. Symptoms have not gone away so she presents for evaluation. 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 She has not had it to her knowledge yet. She has had no fevers or chills. She has a history of a pulmonary embolus and is no longer anticoagulated. She denies any recent long travel/immobilization, hospitalization, or surgery. The last surgery she had was in December, hip replacement. - Past Medical History (1) Fibromyalgia Status: Chronic (2) Depression Status: Chronic (3) Non-rheumatic tricuspid valve insufficiency Status: Chronic (4) Essential hypertension Status: Chronic (5) H/O aortic valve repair Status: Chronic (6) Pulmonary hypertension Status: Chronic (7) Seizure disorder Status: Chronic (8) History of atrial septal defect repair Status: Resolved (9) History of bicuspid aortic valve Status: Resolved (10) Pulmonary embolus Status: Resolved Past Medical History - Allergies and Home Meds Allergies/Adverse Reactions: Allergies amitriptyline Allergy (Verified 05/25/20 07:01) Other states rhabdomyolosis from it amoxicillin [Amoxicillin] Allergy (Verified 05/25/20 07:01) Rash erythromycin base [Erythromycin Base] Allergy (Verified 05/25/20 07:01) Rash hydroxyzine Allergy (Verified 05/25/20 07:01) Rash levofloxacin [From Levaquin] Allergy (Verified 05/25/20 07:01) Swelling milnacipran Allergy (Verified 05/25/20 07:01) Other states got rhabdomyolysis from it milnacipran HCl [From Savella] Allergy (Verified 05/25/20 07:01) Other states had rhabdomyolysis acetaminophen [From Tylenol] Adverse Reaction (Mild, Verified 05/25/20 07:01) Vomiting Only when taking in large amounts celecoxib [From Celebrex] Adverse Reaction (Verified 05/25/20 07:01) Other suicidal thoughts diphenhydramine HCl [From Benadryl] Adverse Reaction (Verified 05/25/20 07:01) muscle spasms duloxetine HCl [From Cymbalta] Adverse Reaction (Verified 05/25/20 07:01) Other states causes suicidal thoughts meloxicam Adverse Reaction (Verified 05/25/20 07:01) Swelling of legs/chest pain Primary Care Physician: Bill Dai MD [Primary Care Provider] - Surgical History: adenoidectomy, - - 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 repair 2000, mitral valve repair, repair of atrial septal defect. History of , and left oophorectomy. BL TKR by Dr. 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 Smoking Status: Light Smoker (<10/day) - Family History Maternal Family History: Family History (Last Updated 04/07/20 @ 11:10 by Leighann Montes De Oca) Mother Cancer, Onset Age: 36 CVA (cerebral vascular accident) CAD (coronary artery disease), Onset Age: 46 Myocardial infarction Grandmother CAD (coronary artery disease) COPD (chronic obstructive pulmonary disease) Diabetes Family History: Reports: - - alive age 59: breast cancer, stroke, diabetes,heart attack Paternal Family History: Family History (Last Updated 04/07/20 @ 11:10 by Leighann Montes De Oca) Mother Cancer, Onset Age: 36 CVA (cerebral vascular accident) CAD (coronary artery disease), Onset Age: 46 Myocardial infarction Grandmother CAD (coronary artery disease) COPD (chronic obstructive pulmonary disease) Diabetes Family History: Reports: No pertinent history - alive age 62 Review of Systems General: Denies: Chills, Fever, Sweats Eyes: Denies: Visual changes - bilaterally, Diplopia ENT: Denies: Bilateral ear pain, Rhinorrhea, Sore throat Cardiovascular: Reports: Chest pain. Denies: Palpitations Respiratory: Reports: Cough, Dyspnea on exertion. Denies: Sputum, Orthopnea Gastrointestinal: Denies: Abdominal pain, Nausea, Vomiting, Diarrhea, Melena, Hematochezia Genitourinary: Denies: Dysuria, Hematuria, Frequency Musculoskeletal: Reports: Myalgias, Swelling - both ankles. Denies: Neck pain, Back pain, Extremity Pain Skin: Denies: Rash, Wounds Neurological: Reports: Headache. Denies: Weakness, Numbness Physical Exam Vital Signs/Narrative: Vital Signs Temp Pulse Resp BP Pulse Ox 05/25/20 06:57 97.9 F 74 17 147/92 H 98 05/25/20 06:53 97.9 F 74 17 147/92 H 98 Inital Vital Signs reviewed: Yes General: Well nourished, Well developed, No Acute Distress Head: Normocephalic, Atraumatic Eyes: Perrl, EOMI ENT: Moist mucous membranes, No rhinorrhea Neck: Supple, Nontender, No lymphadenopathy Cardiovascular: Regular rate, Regular rhythm, No murmurs. Negative for: Tachycardia Respiratory: No distress, CTA bilaterally, Chest nontender Abdomen: Soft, Nontender, Nondistended, Normal bowel sounds Back: Nontender, Normal Inspection. Negative for: CVA tenderness Extremities: Nontender, No edema. Negative for: Calf Tenderness Skin: Normal color, No rash, No Trauma Neurological: Alert, Oriented x3, Cranial nerves II-XII grossly intact, Normal Strength, Normal Sensation Psychological: Normal affect, Normal Mood Diagnostic/Tx/Re-eval Impressions Chest X-Ray 05/25/20 07:14 IMPRESSION: Nondisplaced fracture of the right seventh rib. Electronically Signed: Fabian Sylvia, at 7:50 EST Tel , Service support , 05/25/20 07:14 Chest 1 View (Portable) [RAD] Stat 05/25/20 07:25 Mucosa - Nose SARS-CoV-2 Antigen (Rapid) - Final Laboratory Results 05/25/20 05/25/20 05/25/20 07:15 07:15 07:15 WBC 7.7 RBC 4.63 Hgb 12.6 Hct 40.9 MCV 88.3 MCH 27.2 MCHC 30.8 L RDW Std Deviation 48.6 H RDW Coeff of Beto 15.0 H Plt Count 327 MPV 10.1 Immature Gran % (Auto) 0.500 Neut % (Auto) 70.1 H Lymph % (Auto) 17.3 L [place] % (Auto) 9.5 Eos % (Auto) 2.1 Baso % (Auto) 0.5 Absolute Neuts (auto) 5.4 Absolute Lymphs (auto) 1.33 Nucleated RBC % 0 D-Dimer Quant (PE/DVT) 0.44 Sodium 138 Potassium 4.2 Chloride 110 H Carbon Dioxide 20.0 L Anion Gap 8 BUN 25 H Creatinine 0.78 Estim Creat Clear Calc 78.52 Est GFR (MDRD) Af Amer 105 Est GFR (MDRD) Non-Af 87 BUN/Creatinine Ratio 32.2 H Glucose 136 H Calcium 8.5 Troponin I < 0.015 - Rhythm Strip Rhythm Strip: Sinus Rhythm Rate: 76 Ectopy: None - EKG Initial EKG Interpretation: Sinus Rhythm - 76 rate, No Acute Injury Pattern, - - No S1Q3T3 pattern. Prior: Unchanged - Medical Decision Making Chest x-ray shows a fracture of the right seventh rib that is in the area where she is having pain. The rest of her x-ray is normal including her lungs. Her Covid test returned negative. The rest of her test returned negative including her D-dimer luckily. This rules out pulmonary embolus as acute cause for her symptoms. In reexamining her and discussing further, she provides history that she did not initially volunteer. She states that several weeks ago, her roommates large dog stepped on her and she thought she broke her rib at the time, but the pain got better and now worse. She also states that she was at the hospital in [place] about 8 weeks ago for the same pain, and had pulmonary embolus ruled out in addition to other testing that was unremarkable that she knows of. She is asking for something for pain. She is very tender in the right lateral rib cage in the area of the seventh rib, and states that it hurts worse to move around in addition to breathing. Given all this I think her rib fracture is probably causing her symptoms. I reviewed her OARRS report. It is lengthy, and she had a prescription for Percocet 2 weeks ago for unknown reasons. She was given a prescription for 10 pills of tramadol and discharged advised to follow-up with her primary care doctor. ED Disposition - Plan for ED Patient: Disposition: Home or Assisted Living Diagnosis: Right rib fracture Instructions: ED Rib Fracture Prescriptions: traMADol [Ultram] 50 mg PO Q4H PRN PRN 2 Days #10 tablet PRN Reason: Pain Transmission Status: Sent to [facility] Referrals: Bill Dai MD [Primary Care Provider] - 1 Week if not improving
[2020-05-25 07:30] LABS: Absolute Lymphocyte Count 1.33 X10^3/uL (0.83-4.51); Absolute Neutrophil Count 5.4 X10^3/uL (2.0-7.7); Basophil# 0.04 X10^3/uL; Basophil% 0.5 % (0-1); Eosinophil# 0.16 X10^3/uL; Eosinophils% 2.1 % (0-5); Hematocrit 40.9 % (37-47); Hemoglobin 12.6 g/dL (12.0-15.0); Lymphocyte # 1.33 X10^3/ul (4.0); Lymphocyte % 17.3 % (19-41); Mean Corp Hgb Conc 30.8 g/dL (32-36); Mean Corpuscular Hgb 27.2 pg (27.0-32.0); Mean Corpuscular Volume 88.3 fL (81-99); Mean Platelet Vol. 10.1 fl (6.2-12.0); Monocyte# 0.73 X10^3/uL; Monocyte% 9.5 % (0-10); NRBC Flagged by Analyzer 0 % (0-5); Neutrophil # 5.38 X10^3/uL (2.7-7.7); Neutrophil % 70.1 % (47-70); Platelet Count 327 K/mm3 (150-450); RBC Distribution Width SD 48.6 fl (35.1-43.9); Red Blood Count 4.63 M/mm3 (4.2-5.4); White Blood Count 7.7 K/mm3 (4.4-11.0)
[2020-05-25 07:45] LABS: Anion Gap 8 (5-15); BUN 25 mg/dL (7-18); BUN/Creat Ratio 32.2 RATIO (10-20); Calcium,Total 8.5 mg/dL (8.5-10.1); Chloride 110 mmol/L (98-107); Creatinine, Serum 0.78 mg/dL (0.55-1.02); EST Glomerular Filtration Rate 87 mL/min (>60); Est Glom Filt Rate - Afr Amer 105 mL/min (>60); Estimated Creatinine Clearance 78.52 ml/min; Glucose 136 mg/dL (74-106); Potassium 4.2 mmol/L (3.5-5.1); Sodium Level 138 mmol/L (136-145)
[2020-05-25] MEDS: 0.9% Normal Saline 1,000 ML 150 ML IV (08:08)
[2020-05-25 08:20] LABS: D-Dimer Quantitative (DVT/PE) 0.44 FEU/ug/m (0.27-0.49)
== END 2020-05-25 09:15 | disposition home or self-care (01) ==
PROVIDERS: Emergency Provider Emergency Medicine; PCP Family Medicine
DX: S22.31XA Fracture of one rib, right side, initial encounter for closed fracture (principal); F17.200 Nicotine dependence, unspecified, uncomplicated; F32.9 Major depressive disorder, single episode, unspecified; Z96.649 Presence of unspecified artificial hip joint; Z87.74 Personal history of (corrected) congenital malformations of heart and circulatory system; Z86.711 Personal history of pulmonary embolism; X58.XXXA Exposure to other specified factors, initial encounter
CPT/HCPCS: 71045; 80048; 84484; 85025; 85379; 87426; 93005; 99285; J7030

== ENCOUNTER 2020-07-10 12:19 | Observation (INO) | payer MEDICAID, SELFPAY ==
[2020-07-10] VITALS (10 sets, daily range): BP systolic 121–160; BP diastolic 59–96; PULSE 64–90; RESP 14–18; TEMP 36.2–36.9; O2SAT 94–99; BMI 34.4; BMI 35.1
--- NOTE | 2020-07-10 12:57 | EKG12_ITS ---
Test Reason : AM EKG Blood Pressure : / mmHG Vent. Rate : 060 BPM Atrial Rate : 060 BPM P-R Int : 132 ms QRS Dur : 090 ms QT Int : 490 ms P-R-T Axes : 073 030 063 degrees QTc Int : 490 ms Normal sinus rhythm Prolonged QT Abnormal ECG When compared with ECG of 10-JUL-2020 22:00, MANUAL COMPARISON REQUIRED, DATA IS UNCONFIRMED Confirmed by CIERA ADAMS, MEENA ([id number]), photograph editor PADMINI CARBAJAL ([id number]) on 07/12/2020 1:31:49 PM Referred By: SALVADOR Confirmed By:MEENA VANG MD
--- NOTE | 2020-07-10 13:06 | CT_ITS ---
STUDY: CTA CHEST REASON FOR EXAM: Female, 39 years old. RECENT SURG, CP, HX-PE, HTN, TIA, SZ, AORTIC VALVE REPLACED, LEIOMYOSARCOMA RADIATION DOSAGE (If Supplied By Facility): CTDIvol = ( 16.78 ) mGy, DLP = ( 453.71 ) mGycm TECHNIQUE: The examination was performed with the intravenous administration of IV 100mL Isovue-370. Post-processing of the angiographic images was performed, with multiplanar reformation and 3D reconstruction. Individualized dose optimization techniques were used for this CT. COMPARISON: Comparison is made with prior study dated 04/02/2018. FINDINGS: Normal enhancement of the main pulmonary artery and right and left pulmonary arteries. Normal enhancement of the bilateral peripheral pulmonary arteries. There is no demonstrated pulmonary embolism. Normal thoracic aorta and visualized great vessels. There is no demonstrated aortic dissection. Prior sternotomy. Normal mediastinum. Normal hilar regions. Normal visualized trachea and bronchi. The lungs are well expanded. Stable minimal linear scarring in the inferior aspect of the right major fissure. Minimal groundglass appearance in the posterior aspect of the right upper lobe abutting the right minor fissure. Normal pleura. Normal chest wall structures. Normal osseous structures. Small hiatal hernia. CT/CTA Chest W/WO Contrast IMPRESSION: No evidence of pulmonary embolism. Mild degree of groundglass appearance in the posterior aspect of the right upper lobe abutting the minor fissure. Electronically Signed: Tenzin Persaud MD at 15:00 EST , Service support ,
--- NOTE | 2020-07-10 13:06 | ED.DCSUM_ITS ---
History of Present Illness Chief Complaint: Chest Pain Informant: Patient Narrative: 39-year-old female presenting with chest pain and shortness of breath. She states she has history of provoked DVT and for PEs from her previous surgery. Patient states she just had surgery on her left arm in May. She is concerned she has blood clots again. Patient is also complaining of left calf pain. Patient denies fever, chills, myalgias, change in taste of smell. Patient does states he has a history of open heart surgery. No history of MA. Prior similar symptoms: Yes - Past Medical History (1) Fibromyalgia Status: Chronic (2) Depression Status: Chronic (3) Pulmonary embolus Status: Resolved (4) Non-rheumatic tricuspid valve insufficiency Status: Chronic (5) History of bicuspid aortic valve Status: Chronic (6) History of atrial septal defect repair Status: Chronic (7) Essential hypertension Status: Chronic (8) H/O aortic valve repair Status: Chronic Past Medical History - Allergies and Home Meds Allergies/Adverse Reactions: Allergies amitriptyline Allergy (Verified 07/10/20 12:22) Other states rhabdomyolosis from it amoxicillin [Amoxicillin] Allergy (Verified 07/10/20 12:22) Rash erythromycin base [Erythromycin Base] Allergy (Verified 07/10/20 12:22) Rash hydroxyzine Allergy (Verified 07/10/20 12:22) Rash levofloxacin [From Levaquin] Allergy (Verified 07/10/20 12:22) Swelling milnacipran Allergy (Verified 07/10/20 12:22) Other states got rhabdomyolysis from it milnacipran HCl [From Savella] Allergy (Verified 07/10/20 12:22) Other states had rhabdomyolysis acetaminophen [From Tylenol] Adverse Reaction (Mild, Verified 07/10/20 12:22) Vomiting Only when taking in large amounts celecoxib [From Celebrex] Adverse Reaction (Verified 07/10/20 12:22) Other suicidal thoughts diphenhydramine HCl [From Benadryl] Adverse Reaction (Verified 07/10/20 12:22) muscle spasms duloxetine HCl [From Cymbalta] Adverse Reaction (Verified 07/10/20 12:22) Other states causes suicidal thoughts meloxicam Adverse Reaction (Verified 07/10/20 12:22) Swelling of legs/chest pain Primary Care Physician: Bill Dai MD [Primary Care Provider] - Prior records reviewed: Yes Past Medical History: - - Reviewed in problem list Surgical History: adenoidectomy, - - 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 repair 2000, mitral valve repair, repair of atrial septal defect. History of , and left oophorectomy. BL TKR by Dr. Lyon at the [facility] in August Smoking Status: Never smoker - Family History Maternal Family History: Family History (Last Reviewed 07/10/20 @ 17:05 by Sarah Brown DOUGHNUT MACHINE OPERATOR, DOUGHNUT MACHINE OPERATOR-C) Mother Cancer, Onset Age: 36 CVA (cerebral vascular accident) CAD (coronary artery disease), Onset Age: 46 Myocardial infarction Grandmother CAD (coronary artery disease) COPD (chronic obstructive pulmonary disease) Diabetes Family History: Reports: - - alive age 59: breast cancer, stroke, diabetes,heart attack Paternal Family History: Family History (Last Reviewed 07/10/20 @ 17:05 by Sarah Brown DOUGHNUT MACHINE OPERATOR, DOUGHNUT MACHINE OPERATOR-C) Mother Cancer, Onset Age: 36 CVA (cerebral vascular accident) CAD (coronary artery disease), Onset Age: 46 Myocardial infarction Grandmother CAD (coronary artery disease) COPD (chronic obstructive pulmonary disease) Diabetes Family History: Reports: No pertinent history - alive age 62 Review of Systems Eyes: Denies: Visual changes - bilaterally, Diplopia ENT: Denies: Rhinorrhea, Sore throat Cardiovascular: Reports: Chest pain, Palpitations Respiratory: Reports: Dyspnea, Dyspnea on exertion Gastrointestinal: Denies: Abdominal pain, Nausea, Vomiting Genitourinary: Denies: Dysuria, Hematuria Musculoskeletal: Denies: Myalgias, Arthralgias Skin: Denies: Rash, Abscess Neurological: Denies: Headache, Weakness Psych: Denies: Anxiety, Suicidal thoughts, Suicidal ideations Physical Exam Vital Signs/Narrative: Vital Signs Temp Pulse Resp BP Pulse Ox 07/10/20 12:20 97.8 F 70 14 121/84 H 99 Inital Vital Signs reviewed: Yes General: Well nourished, No Acute Distress Head: Normocephalic, Atraumatic Eyes: Perrl, EOMI ENT: Moist mucous membranes, No rhinorrhea Cardiovascular: Regular rate, Regular rhythm Respiratory: No distress, CTA bilaterally Extremities: No edema, Calf Tenderness - Tenderness In the left calf. There is no swelling. No cords palpated. Skin: Normal color, No rash. Negative for: Cyanosis, Diaphoresis Neurological: Alert, Oriented x3 Psychological: Normal affect, Normal Mood Diagnostic/Tx/Re-eval Clinical Impression(s) from Imaging Studies Chest CTA 07/10/20 13:06 IMPRESSION: No evidence of pulmonary embolism. Mild degree of groundglass appearance in the posterior aspect of the right upper lobe abutting the minor fissure. Electronically Signed: Tenzin Persaud MD at 15:00 EST , Service support , Chest X-Ray 07/10/20 14:12 IMPRESSION: The lungs are clear. Electronically Signed: Tenzin Persaud MD at 14:27 EST , Service support , Laboratory Data 07/10/20 07/10/20 Unknown Unknown WBC 8.9 RBC 4.36 Hgb 12.6 Hct 39.6 MCV 90.8 MCH 28.9 MCHC 31.8 L RDW Std Deviation 49.4 H RDW Coeff of Beto 14.8 H Plt Count 399 MPV 10.8 Immature Gran % (Auto) 0.300 Neut % (Auto) 72.4 H Lymph % (Auto) 15.8 L [place] % (Auto) 9.8 Eos % (Auto) 1.4 Baso % (Auto) 0.3 Absolute Neuts (auto) 6.4 Absolute Lymphs (auto) 1.40 Nucleated RBC % 0 Sodium 137 Potassium 4.1 Chloride 107 Carbon Dioxide 23.0 Anion Gap 7 BUN 17 Creatinine 0.92 Estim Creat Clear Calc 66.57 Est GFR (MDRD) Af Amer 86 Est GFR (MDRD) Non-Af 71 BUN/Creatinine Ratio 18.5 Glucose 90 Calcium 8.8 Troponin I < 0.015 - Rhythm Strip Rhythm Strip: Sinus Rhythm Rate: 67 - EKG Initial EKG Interpretation: Sinus Rhythm, Non-Specific ST Changes - Medical Decision Making 42-year-old female presenting with chest pain in the center of her chest. She was concerned that she might have a blood clot because she has had one before after surgery and she just had surgery in May on her left arm. EKG performed on arrival showed a sinus rhythm with nonspecific ST changes at 67 bpm as interpreted by myself. Chest x-ray one-view portable as interpreted by myself shows no acute abnormality and radiology does agree. Lab work is unremarkable. Troponin is negative. Patient had CTA of the chest which showed no PEs however does identify groundglass opacity in the right upper lobe. Duplex ultrasound of the left lower extremity was negative for DVT. Since she is being admitted for chest pain shortness of breath rapid Covid was ordered. Her heart score is 4. Patient discussed with hospitalist admitted in stable condition. Patient was given aspirin 324 mg p.o. by EMS prior to arrival. Impression: 1. Chest pain 2. Groundglass opacity right upper lobe ED Disposition - Plan for ED Patient: Referrals: Bill Dai MD [Primary Care Provider] -
--- NOTE | 2020-07-10 13:06 | VDLE_ITS ---
Reason For Study: LLE PAIN Procedure LEFT This is a venous duplex using B-mode, color GSV is normal. flow and spectral Doppler. CFV is compressible, spontaneous, phasic, Exam performed portable in ED. competent, and demonstrates normal The exam was diagnostic. augmentation. A preliminary report was called and/or faxed FV is compressible, spontaneous, phasic, to Dr. Walden @ 2 pm. competent and demonstrates normal augmentation. POP V is compressible, spontaneous, phasic, competent and demonstrates normal augmentation. T/P Trunk is compressible. PTV is compressible. LT PerV is compressible. Interpretation Summary There is no evidence of left lower extremity deep vein thrombosis. Left great saphenous vein appears patent and compressible segmentally. Ordering Physician: Ruperto Walden Referring Physician: Bill Dai Performed By: Jenny Esquivel, DEIDRA, RVT
[2020-07-10 13:15] LABS: Absolute Neutrophil Count 6.4 X10^3/uL (2.0-7.7); Basophil# 0.03 X10^3/uL; Basophil% 0.3 % (0-1); Eosinophil# 0.12 X10^3/uL; Eosinophils% 1.4 % (0-5); Hematocrit 39.6 % (37-47); Hemoglobin 12.6 g/dL (12.0-15.0); Lymphocyte % 15.8 % (19-41); Mean Corp Hgb Conc 31.8 g/dL (32-36); Mean Corpuscular Hgb 28.9 pg (27.0-32.0); Mean Corpuscular Volume 90.8 fL (81-99); Mean Platelet Vol. 10.8 fl (6.2-12.0); Monocyte# 0.87 X10^3/uL; Monocyte% 9.8 % (0-10); NRBC Flagged by Analyzer 0 % (0-5); Neutrophil % 72.4 % (47-70); Platelet Count 399 K/mm3 (150-450); RBC Distribution Width CV 14.8 % (11.6-14.6); RBC Distribution Width SD 49.4 fl (35.1-43.9); Red Blood Count 4.36 M/mm3 (4.2-5.4); White Blood Count 8.9 K/mm3 (4.4-11.0)
[2020-07-10] MEDS: Ondansetron 4 MG/2 ML Vial IV (13:22)
[2020-07-10] MEDS: Morphine 4 MG/ML Syringe IV ×2 (13:25→15:48)
[2020-07-10 13:27] LABS: Anion Gap 7 (5-15); BUN 17 mg/dL (7-18); BUN/Creat Ratio 18.5 RATIO (10-20); Calcium,Total 8.8 mg/dL (8.5-10.1); Chloride 107 mmol/L (98-107); Creatinine, Serum 0.92 mg/dL (0.55-1.02); EST Glomerular Filtration Rate 71 mL/min (>60); Est Glom Filt Rate - Afr Amer 86 mL/min (>60); Estimated Creatinine Clearance 66.57 ml/min; Glucose 90 mg/dL (74-106); Potassium 4.1 mmol/L (3.5-5.1); Sodium Level 137 mmol/L (136-145)
--- NOTE | 2020-07-10 14:12 | RAD_ITS ---
STUDY: X-RAY CHEST REASON FOR EXAM: Female, 39 years old. Pt c/o chest pain, SOB, hx of post op blood clots, had surgery in May TECHNIQUE: Single AP portable view of the chest. COMPARISON: Comparison is made with prior study dated 05/25/2020. FINDINGS: EKG electrodes are seen. The lungs are clear and expanded. There is no demonstrated pleural abnormality. Sternal cerclage wires and vascular clips are present from a prior sternotomy and coronary artery bypass graft procedure (CABG). Normal mediastinum and neyda. Normal visualized pulmonary arteries. Normal visualized aortic arch and descending thoracic aorta. Normal visualized thoracic spine. Normal visualized ribs, clavicles, and shoulders. There is no demonstrated abnormality of the visualized soft tissue structures of the upper abdomen. RAD/Chest 1 View (Portable) IMPRESSION: The lungs are clear. Electronically Signed: Tenzin Persaud MD at 14:27 EST , Service support ,
--- NOTE | 2020-07-10 16:20 | EKG12_ITS ---
Test Reason : CP Blood Pressure : / mmHG Vent. Rate : 067 BPM Atrial Rate : 067 BPM P-R Int : 118 ms QRS Dur : 080 ms QT Int : 434 ms P-R-T Axes : 067 024 069 degrees QTc Int : 458 ms Normal sinus rhythm Nonspecific ST abnormality Abnormal ECG Confirmed by DIPIKA ADAMS, CONCEPCION ([id number]), general expeditor PADMINI CARBAJAL ([id number]) on 07/13/2020 1:37:25 PM Referred By: BJORN Confirmed By:CONCEPCION BAR MD
--- NOTE | 2020-07-10 16:59 | HP.PCM_ITS ---
<Sarah Brown ENVIRONMENTAL SERVICES TECHNICIAN - Last Filed: 07/10/20 17:14> Problem List (1) Fibromyalgia Status: Chronic (2) Depression Status: Chronic (3) Pulmonary embolus Status: Resolved (4) Non-rheumatic tricuspid valve insufficiency Status: Chronic (5) History of bicuspid aortic valve Status: Chronic (6) History of atrial septal defect repair Status: Chronic (7) Essential hypertension Status: Chronic (8) H/O aortic valve repair Status: Chronic (9) Chest pain Status: Acute (10) Pulmonary hypertension Status: Chronic (11) Seizure disorder Status: Chronic History of Present Illness Date of Admission: 07/10/20 Chief Complaint: Chest pain. The patient is a 39 year old F who presents emergency room due to chest pain. Patient states this began last night and has continued since that time. She reports pain is on the right side of her chest and is worse with movement. She denies pain radiation. Denies shortness of breath. Reports associated nausea. Denies other associated symptoms or complaints. She denies recent injury. She has a past medical history of fibromyalgia, depression, anxiety, history of PE, hypertension, history of aortic valve repair and ASD repair, history of tobacco use with recent cessation, history of TIA. Past Medical History Past Medical History (Chronic Problems): Chronic Problems (Last Updated 04/07/20 @ 11:08 by Leighann Montes De Oca) Fibromyalgia (Chronic) Depression (Chronic) Non-rheumatic tricuspid valve insufficiency (Chronic) History of bicuspid aortic valve (Chronic) History of atrial septal defect repair (Chronic ~12/04/00) Essential hypertension (Chronic) H/O aortic valve repair (Chronic ~12/04/00) Pulmonary hypertension (Chronic) Seizure disorder (Chronic) Medical History: Medical History (Last Updated 04/07/20 @ 11:08 by Leighann Montes De Oca) Non-rheumatic tricuspid valve insufficiency (Chronic) I36.1 History of bicuspid aortic valve (Resolved) Z87.74 Essential hypertension (Chronic) I10 SOB (shortness of breath) (Acute) R06.02 Chest pain (Acute) R07.9 Pulmonary hypertension (Chronic) I27.2 Seizure disorder (Chronic) G40.909 History of pulmonary embolus (PE) Z86.711 History of stroke Onset Date: ~2001 Z86.73 TIA (transient ischemic attack) Onset Date: ~2001 G45.9 AI (aortic insufficiency) I35.1 Anxiety disorder F41.9 Arthritis M19.90 Borderline personality disorder F60.3 DDD (degenerative disc disease) Exercise-induced asthma J45.990 Fibromyalgia Migraine G43.909 Normochromic normocytic anemia D64.9 Syringomyelia G95.0 ARDS (adult respiratory distress syndrome) J80 Acute respiratory failure with hypoxia J96.01 Colitis K52.9 Cough (Resolved) R05 Hematemesis K92.0 History of DVT of lower extremity Z86.718 Leiomyosarcoma C49.9 Thrush (Resolved) B37.0 Allergies amitriptyline Allergy (Verified 07/10/20 12:22) Other states rhabdomyolosis from it amoxicillin [Amoxicillin] Allergy (Verified 07/10/20 12:22) Rash erythromycin base [Erythromycin Base] Allergy (Verified 07/10/20 12:22) Rash hydroxyzine Allergy (Verified 07/10/20 12:22) Rash levofloxacin [From Levaquin] Allergy (Verified 07/10/20 12:22) Swelling milnacipran Allergy (Verified 07/10/20 12:22) Other states got rhabdomyolysis from it milnacipran HCl [From Savella] Allergy (Verified 07/10/20 12:22) Other states had rhabdomyolysis acetaminophen [From Tylenol] Adverse Reaction (Mild, Verified 07/10/20 12:22) Vomiting Only when taking in large amounts celecoxib [From Celebrex] Adverse Reaction (Verified 07/10/20 12:22) Other suicidal thoughts diphenhydramine HCl [From Benadryl] Adverse Reaction (Verified 07/10/20 12:22) muscle spasms duloxetine HCl [From Cymbalta] Adverse Reaction (Verified 07/10/20 12:22) Other states causes suicidal thoughts meloxicam Adverse Reaction (Verified 07/10/20 12:22) Swelling of legs/chest pain Home Medications: Ambulatory Orders Medication Instructions Recorded Tizanidine HCl [Zanaflex] 4 mg PO Q8H PRN 12/23/15 MedroxyPROGESTERone [Depo-Provera] 150 mg IM .[id number] 03/15/16 Albuterol Inhaler [Ventolin Hfa] 1 puff INHALATION Q4H PRN PRN 10/02/16 Fluoxetine [Prozac] 20 mg PO DAILY 09/20/17 Pregabalin [Lyrica] 150 mg PO BID 04/25/18 Zolpidem Tartrate [Ambien] 10 mg PO QHS 05/25/18 Albuterol Aerosols [Ventolin 2.5 mg INHALATION Q4H PRN #25 vial 04/15/19 Aerosols] calcium carbonate 600 mg (1,500 1 cap PO DAILY cap 04/07/20 mg)-vitamin D3 2,500 unit capsule trazodone 50 mg tablet 50 mg PO QHS PRN 04/07/20 Omeprazole 20 mg PO DAILY 05/25/20 Bupropion HCl [Bupropion Xl] 300 mg PO DAILY 07/10/20 Fluoxetine HCl 40 mg PO DAILY 07/10/20 Oxaprozin [Daypro] 600 mg PO BID 07/10/20 Surgical History: Surgical History (Last Updated 04/07/20 @ 11:08 by Leighann Montes De Oca) History of atrial septal defect repair (Resolved) Onset Date: ~12/04/00 Z87.74 H/O aortic valve repair (Chronic) Onset Date: ~12/04/00 Z98.890 History of adenoidectomy Z90.89 History of bilateral knee replacement Z96.653 History of left heart catheterization (LHC) Onset Date: ~01/31/17 Z98.890 10/17/00; normal coronaries per cath 01/31/17 Surgical History: adenoidectomy, - - 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 repair 2000, mitral valve repair, repair of atrial septal defect. History of , and left oophorectomy. BL TKR by Dr. 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 pertinent CLASSIFICATION CONTROL CLERK history Lives: Alone Smoking Status: Former smoker - Recent cessation Alcohol: None Drugs: None - *Family History Maternal Family History: Family History (Last Reviewed 07/10/20 @ 17:05 by Sarah Brown NP, ENVIRONMENTAL SERVICES TECHNICIAN-C) Mother Cancer, Onset Age: 36 CVA (cerebral vascular accident) CAD (coronary artery disease), Onset Age: 46 Myocardial infarction Grandmother CAD (coronary artery disease) COPD (chronic obstructive pulmonary disease) Diabetes History Items: - - breast cancer, stroke, diabetes,heart attack Paternal Family History: Family History (Last Reviewed 07/10/20 @ 17:05 by Sarah Brown NP, ENVIRONMENTAL SERVICES TECHNICIAN-C) Mother Cancer, Onset Age: 36 CVA (cerebral vascular accident) CAD (coronary artery disease), Onset Age: 46 Myocardial infarction Grandmother CAD (coronary artery disease) COPD (chronic obstructive pulmonary disease) Diabetes History Items: - - Denies known paternal medical history including cardiac history Review of Systems Constitutional: Denies: Chills, Fever, Weight Change HEENT: Denies: Head Aches, Sinus Congestion, Sinus Drainage Cardiovascular: Reports: Chest Pain. Denies: Palpitations Respiratory: Denies: Cough, Shortness of breath at rest, Sputum production Gastrointestinal: Reports: Nausea. Denies: Abdominal Pain, Vomiting Genitourinary: Denies: Dysuria Musculoskeletal: Denies: Joint Pain, Joint Tenderness Skin: Denies: Rash, Wounds Neurological: Denies: Numbness, Tingling, Focal weakness Psychiatric: Reports: Anxiety, Depression. Denies: Homicidal Ideations, Suicidal Ideations Hematologic/ Lymphatic: Denies: Easy Bruising, Easy Bleeding VTE Information - Inpt Only VTE Present on Admission: No VTE Mechan Device Prophylaxis: None VTE Pharm Prophylaxis ordered?: No Reason prophylaxis not ordered:: Treatment Not Indicated - Physical Exam Vitals/I&O's: Vital Signs Temp Pulse Resp BP Pulse Ox 97.8 F 68 15 148/59 H 99 07/10/20 12:20 07/10/20 15:00 07/10/20 15:00 07/10/20 14:29 07/10/20 15:00 Oxygen Delivery Method Room Air Weight: 194 lb 7.163 oz Body Mass Index (BMI) 34.4 Finger Stick Blood Glucose 140 General: Alert, Oriented x3, Cooperative HEENT: Atraumatic, PERRLA, EOMI, Normocephalic Neck: Supple, No JVD, Negative Carotid Bruits Lungs: Clear to auscultation, Diminished Cardiovascular: Regular rate, Regular Rhythm Abdomen: Bowel Sounds Present, Soft, Non Tender, Non-Distended Extremities: No clubbing, No cyanosis, No edema, Capillary Refill Less than 3 Seconds Skin: No rashes, No breakdown Musculoskeletal: No Tenderness to Palpation of Joints or Extremities Neurological: Cranial nerves II-XII grossly intact, Neuro grossly intact Psych/Mental Status: Normal Affect, Appropriate Microbiology Past 72 Hours 07/10/20 15:50 Mucosa - Nose SARS-CoV-2 Antigen (Rapid) - Final Laboratory Results 07/10/20 : WBC 8.9, RBC 4.36, Hgb 12.6, Hct 39.6, MCV 90.8, MCH 28.9, MCHC 31.8 L, RDW Std Deviation 49.4 H, RDW Coeff of Beto 14.8 H, Plt Count 399, MPV 10.8, Immature Gran % (Auto) 0.300, Neut % (Auto) 72.4 H, Lymph % (Auto) 15.8 L, [place] % (Auto) 9.8, Eos % (Auto) 1.4, Baso % (Auto) 0.3, Absolute Neuts (auto) 6.4, Absolute Lymphs (auto) 1.40, Nucleated RBC % 0 07/10/20 : Sodium 137, Potassium 4.1, Chloride 107, Carbon Dioxide 23.0, Anion Gap 7, BUN 17, Creatinine 0.92, Estim Creat Clear Calc 66.57, Est GFR (MDRD) Af Amer 86, Est GFR (MDRD) Non-Af 71, BUN/Creatinine Ratio 18.5, Glucose 90, Calcium 8.8, Troponin I < 0.015 Assessment/Plan All Active Problems (Last Updated 04/07/20 @ 11:08 by Leighann Montes De Oca) Pulmonary embolus (Resolved) Chest pain (Acute) Cough (Resolved) DVT (deep venous thrombosis) (Resolved) DVT (deep venous thrombosis) (Resolved) Drug-induced hyperglycemia (Resolved) Hypokalemia (Resolved) Pneumonia (Resolved) Pulmonary emboli (Resolved) Sepsis (Resolved) Thrush (Resolved) pulmonary embolus 2001 (Resolved) 1. Atypical chest pain-EKG without ST-T changes. Trend enzymes. Stress test in a.m. Lipid profile in a.m. aspirin 81 mg daily. 2. History of aortic valve repair/ASD repair 3. History of PE-provoked. CTA negative. 4. History of tobacco use with recent cessation-encouraged continued cessation. 5. History of TIA-not on aspirin, statin. 6. Fibromyalgia-continue home regimen. 7. Anxiety/depression-on bupropion, fluoxetine. 8. Hypertension-not on regimen, monitor BP. DVT prophylaxis-low risk, early ambulation This patient was seen by TANYA Hebert under the supervision of Dr. Faith. <Shaka Faith F - Last Filed: 07/10/20 18:00> History of Present Illness The patient is a 39 year old F [] Past Medical History Medical History: Medical History (Last Updated 04/07/20 @ 11:08 by Leighann Montes De Oca) Non-rheumatic tricuspid valve insufficiency (Chronic) I36.1 History of bicuspid aortic valve (Resolved) Z87.74 Essential hypertension (Chronic) I10 SOB (shortness of breath) (Acute) R06.02 Chest pain (Acute) R07.9 Pulmonary hypertension (Chronic) I27.2 Seizure disorder (Chronic) G40.909 History of pulmonary embolus (PE) Z86.711 History of stroke Onset Date: ~2001 Z86.73 TIA (transient ischemic attack) Onset Date: ~2001 G45.9 AI (aortic insufficiency) I35.1 Anxiety disorder F41.9 Arthritis M19.90 Borderline personality disorder F60.3 DDD (degenerative disc disease) Exercise-induced asthma J45.990 Fibromyalgia Migraine G43.909 Normochromic normocytic anemia D64.9 Syringomyelia G95.0 ARDS (adult respiratory distress syndrome) J80 Acute respiratory failure with hypoxia J96.01 Colitis K52.9 Cough (Resolved) R05 Hematemesis K92.0 History of DVT of lower extremity Z86.718 Leiomyosarcoma C49.9 Thrush (Resolved) B37.0 Allergies amitriptyline Allergy (Verified 07/10/20 12:22) Other states rhabdomyolosis from it amoxicillin [Amoxicillin] Allergy (Verified 07/10/20 12:22) Rash erythromycin base [Erythromycin Base] Allergy (Verified 07/10/20 12:22) Rash hydroxyzine Allergy (Verified 07/10/20 12:22) Rash levofloxacin [From Levaquin] Allergy (Verified 07/10/20 12:22) Swelling milnacipran Allergy (Verified 07/10/20 12:22) Other states got rhabdomyolysis from it milnacipran HCl [From Savella] Allergy (Verified 07/10/20 12:22) Other states had rhabdomyolysis acetaminophen [From Tylenol] Adverse Reaction (Mild, Verified 07/10/20 12:22) Vomiting Only when taking in large amounts celecoxib [From Celebrex] Adverse Reaction (Verified 07/10/20 12:22) Other suicidal thoughts diphenhydramine HCl [From Benadryl] Adverse Reaction (Verified 07/10/20 12:22) muscle spasms duloxetine HCl [From Cymbalta] Adverse Reaction (Verified 07/10/20 12:22) Other states causes suicidal thoughts meloxicam Adverse Reaction (Verified 07/10/20 12:22) Swelling of legs/chest pain Surgical History: Surgical History (Last Updated 04/07/20 @ 11:08 by Leighann Montes De Oca) History of atrial septal defect repair (Resolved) Onset Date: ~12/04/00 Z87.74 H/O aortic valve repair (Chronic) Onset Date: ~12/04/00 Z98.890 History of adenoidectomy Z90.89 History of bilateral knee replacement Z96.653 History of left heart catheterization (LHC) Onset Date: ~01/31/17 Z98.890 10/17/00; normal coronaries per cath 01/31/17 - *Family History Maternal Family History: Family History (Last Reviewed 07/10/20 @ 17:05 by Sarah Brown ENVIRONMENTAL SERVICES TECHNICIAN, ENVIRONMENTAL SERVICES TECHNICIAN-C) Mother Cancer, Onset Age: 36 CVA (cerebral vascular accident) CAD (coronary artery disease), Onset Age: 46 Myocardial infarction Grandmother CAD (coronary artery disease) COPD (chronic obstructive pulmonary disease) Diabetes Paternal Family History: Family History (Last Reviewed 07/10/20 @ 17:05 by Sarah Brown ENVIRONMENTAL SERVICES TECHNICIAN, ENVIRONMENTAL SERVICES TECHNICIAN-C) Mother Cancer, Onset Age: 36 CVA (cerebral vascular accident) CAD (coronary artery disease), Onset Age: 46 Myocardial infarction Grandmother CAD (coronary artery disease) COPD (chronic obstructive pulmonary disease) Diabetes - Physical Exam Vitals/I&O's: Vital Signs Temp Pulse Resp BP Pulse Ox 97.8 F 68 15 148/59 H 99 07/10/20 12:20 07/10/20 15:00 07/10/20 15:00 07/10/20 14:29 07/10/20 15:00 Oxygen Delivery Method Room Air Weight: 194 lb 7.163 oz Body Mass Index (BMI) 34.4 Finger Stick Blood Glucose 140 Microbiology Past 72 Hours 07/10/20 15:50 Mucosa - Nose SARS-CoV-2 Antigen (Rapid) - Final Laboratory Results 07/10/20 : WBC 8.9, RBC 4.36, Hgb 12.6, Hct 39.6, MCV 90.8, MCH 28.9, MCHC 31.8 L, RDW Std Deviation 49.4 H, RDW Coeff of Beto 14.8 H, Plt Count 399, MPV 10.8, Immature Gran % (Auto) 0.300, Neut % (Auto) 72.4 H, Lymph % (Auto) 15.8 L, [place] % (Auto) 9.8, Eos % (Auto) 1.4, Baso % (Auto) 0.3, Absolute Neuts (auto) 6.4, Absolute Lymphs (auto) 1.40, Nucleated RBC % 0 07/10/20 : Sodium 137, Potassium 4.1, Chloride 107, Carbon Dioxide 23.0, Anion Gap 7, BUN 17, Creatinine 0.92, Estim Creat Clear Calc 66.57, Est GFR (MDRD) Af Amer 86, Est GFR (MDRD) Non-Af 71, BUN/Creatinine Ratio 18.5, Glucose 90, Calcium 8.8, Troponin I < 0.015 Current Medications Albuterol Sulfate (Albuterol 2.5 Mg/3 Ml Vial.Neb.) 2.5 mg INHALATION Q4H PRN PRN PRN Reason: SHORTNESS OF BREATH Aspirin (Aspirin E.C. 81 Mg Tablet) 81 mg PO DAILY@0800 SADE Bupropion HCl (Bupropion (Xl) 300 Mg Tablet.Xl) 300 mg PO DAILY SADE Fluoxetine HCl (Fluoxetine 20 Mg Capsule) 20 mg PO DAILY SADE Non-Formulary Medication (Fluoxetine Hcl) 40 mg PO DAILY SADE Non-Formulary Medication (Omeprazole) 20 mg PO DAILY SADE Non-Formulary Medication (Pregabalin) 150 mg PO BID SADE Non-Formulary Medication (Zolpidem Tartrate [Ambien]) 10 mg PO QHS SADE Oxaprozin (Oxaprozin 600 Mg Tablet) 600 mg PO BID SADE Trazodone HCl (Trazodone 50 Mg Tablet) 50 mg PO QHS PRN PRN PRN Reason: SLEEP Addendum: Dr. Faith I personally examined the patient and reviewed the chart. I agree with the above. Yes 39-year-old female who quit smoking about a week ago presents with chest pain. She says that it felt very similar to her previous PE which was a provoked PE during surgery and she did have the outpatient testing which confirmed that she does not have any blood clotting disorder. She did have a CTA on admission today which was negative for PE. Initial troponin was unremarkable and EKG was nonischemic. Will trend troponins and plan for stress test in the morning. She also has a history of pleurisy which has caused her pain in the past but she does not think that this is consistent with her previous pleurisy. OBSV E&M: [id number] Initial observation care L3
--- NOTE | 2020-07-10 18:22 | PCS.PANDOC ---
PANDEMIC DOCUMENTATION INITIATED: Date: 07/10/20 Time: 0795
[2020-07-10] MEDS: Ibuprofen 400 MG Tablet PO ×2 (19:48→21:48)
--- NOTE | 2020-07-10 21:45 | EKG12_ITS ---
Test Reason : CP Blood Pressure : / mmHG Vent. Rate : 069 BPM Atrial Rate : 069 BPM P-R Int : 134 ms QRS Dur : 086 ms QT Int : 422 ms P-R-T Axes : 076 035 072 degrees QTc Int : 452 ms Normal sinus rhythm Nonspecific ST & wave abnormality Abnormal ECG Confirmed by DIPIKA ADAMS, CONCEPCION ([id number]), science editor PADMINI CARBAJAL ([id number]) on 07/13/2020 1:55:11 PM Referred By: SALVADOR Confirmed By:CONCEPCION BAR MD
[2020-07-10] MEDS: tiZANidine HCl 2 MG Tablet 4 MG PO (21:47)
[2020-07-10] MEDS: Pregabalin 75 MG Capsule 150 MG PO (21:48)
[2020-07-10] MEDS: Zolpidem Tartrate 5 MG Tablet PO (21:48)
[2020-07-10] MEDS: Nitroglycerin (INPATIENT USE) 0.4 MG TAB.SUBL SUBLINGUAL ×3 (21:52→22:03)
[2020-07-10] MEDS: Morphine 2 MG/ML Syringe IV (22:25)
[2020-07-11] VITALS (8 sets, daily range): BP systolic 112–138; BP diastolic 70–74; PULSE 60–78; RESP 12–18; TEMP 36.4–36.8; O2SAT 96–98
[2020-07-11] MEDS: Morphine 2 MG/ML Syringe IV ×3 (02:28→10:44)
[2020-07-11] MEDS: Aspirin E.C. 81 MG Tablet PO (05:30)
--- NOTE | 2020-07-11 05:55 | EKG12_ITS ---
Test Reason : ADMISSION Blood Pressure : / mmHG Vent. Rate : 063 BPM Atrial Rate : 063 BPM P-R Int : 136 ms QRS Dur : 084 ms QT Int : 456 ms P-R-T Axes : 064 012 041 degrees QTc Int : 466 ms Normal sinus rhythm Nonspecific ST abnormality Abnormal ECG Confirmed by DIPIKA ADAMS, CONCEPCION ([id number]), commissioning editor OANH AGARWAL ([id number] on 07/14/2020 11:44:55 AM Referred By: SALVADOR Confirmed By:CONCEPCION BAR MD
[2020-07-11 07:20] LABS: Absolute Lymphocyte Count 2.01 X10^3/uL (0.83-4.51); Absolute Neutrophil Count 4.5 X10^3/uL (2.0-7.7); Basophil# 0.03 X10^3/uL; Basophil% 0.4 % (0-1); Eosinophil# 0.22 X10^3/uL; Eosinophils% 2.9 % (0-5); Hemoglobin 11.3 g/dL (12.0-15.0); Lymphocyte # 2.01 X10^3/ul (4.0); Lymphocyte % 26.2 % (19-41); Mean Corp Hgb Conc 30.5 g/dL (32-36); Mean Corpuscular Hgb 28.2 pg (27.0-32.0); Mean Corpuscular Volume 92.3 fL (81-99); Mean Platelet Vol. 10.7 fl (6.2-12.0); Monocyte# 0.84 X10^3/uL; NRBC Flagged by Analyzer 0 % (0-5); Neutrophil # 4.54 X10^3/uL (2.7-7.7); Neutrophil % 59.2 % (47-70); Platelet Count 306 K/mm3 (150-450); RBC Distribution Width CV 14.6 % (11.6-14.6); RBC Distribution Width SD 50.2 fl (35.1-43.9); Red Blood Count 4.01 M/mm3 (4.2-5.4); White Blood Count 7.7 K/mm3 (4.4-11.0)
[2020-07-11 07:39] LABS: Anion Gap 7 (5-15); BUN 15 mg/dL (7-18); BUN/Creat Ratio 17.2 RATIO (10-20); Calcium,Total 8.4 mg/dL (8.5-10.1); Chloride 106 mmol/L (98-107); Cholesterol 165 mg/dL (200); Creatinine, Serum 0.87 mg/dL (0.55-1.02); EST Glomerular Filtration Rate 76 mL/min (>60); Est Glom Filt Rate - Afr Amer 91 mL/min (>60); Estimated Creatinine Clearance 70.39 ml/min; Glucose 128 mg/dL (74-106); High Density Lipoprotein 41 mg/dL; Potassium 3.6 mmol/L (3.5-5.1); Sodium Level 137 mmol/L (136-145); Triglycerides 170 mg/dL; Very Low Density Lipoprotein 34 mg/dL (5-40)
[2020-07-11] MEDS: Pantoprazole Sodium 20 MG Tablet PO (09:55)
[2020-07-11] MEDS: FLUoxetine 20 MG Capsule 60 MG PO (09:55)
[2020-07-11] MEDS: Ibuprofen 400 MG Tablet PO (09:55)
[2020-07-11] MEDS: Pregabalin 75 MG Capsule 150 MG PO (09:55)
[2020-07-11] MEDS: buPROPion (XL) 300 MG TABLET.XL PO (09:56)
[2020-07-11] MEDS: tiZANidine HCl 2 MG Tablet 4 MG PO (09:57)
[2020-07-11] MEDS: Albuterol 2.5 MG/3 ML VIAL.NEB. INHALATION (10:15)
[2020-07-11] MEDS: 0.9% Saline Lock 10 ML Syringe IV (10:43)
--- NOTE | 2020-07-11 11:40 | DCINST_ITS ---
- Discharge Diagnoses Current Active Problems: Current Active and Chronic Problems (Last Updated 04/07/20 @ 11:08 by Leighann Montes De Oca) Fibromyalgia (Chronic) Depression (Chronic) Non-rheumatic tricuspid valve insufficiency (Chronic) History of bicuspid aortic valve (Chronic) History of atrial septal defect repair (Chronic ~12/04/00) Essential hypertension (Chronic) H/O aortic valve repair (Chronic ~12/04/00) Chest pain (Acute) Pulmonary hypertension (Chronic) Seizure disorder (Chronic) You will use the following diet at home:: No restrictions Discharge Activity: Return to Normal Activity Call your doctor if you observe: Shortness of breath, Dizziness, Fainting spells, Chest pain Additional Instructions: Your stress test was found to be normal. Allergies/Adverse Reactions: Allergies amitriptyline Allergy (Verified 07/10/20 12:22) Other states rhabdomyolosis from it amoxicillin [Amoxicillin] Allergy (Verified 07/10/20 12:22) Rash erythromycin base [Erythromycin Base] Allergy (Verified 07/10/20 12:22) Rash hydroxyzine Allergy (Verified 07/10/20 12:22) Rash levofloxacin [From Levaquin] Allergy (Verified 07/10/20 12:22) Swelling milnacipran Allergy (Verified 07/10/20 12:22) Other states got rhabdomyolysis from it milnacipran HCl [From Savella] Allergy (Verified 07/10/20 12:22) Other states had rhabdomyolysis acetaminophen [From Tylenol] Adverse Reaction (Mild, Verified 07/10/20 12:22) Vomiting Only when taking in large amounts celecoxib [From Celebrex] Adverse Reaction (Verified 07/10/20 12:22) Other suicidal thoughts diphenhydramine HCl [From Benadryl] Adverse Reaction (Verified 07/10/20 12:22) muscle spasms duloxetine HCl [From Cymbalta] Adverse Reaction (Verified 07/10/20 12:22) Other states causes suicidal thoughts meloxicam Adverse Reaction (Verified 07/10/20 12:22) Swelling of legs/chest pain Medications to take at Discharge Tizanidine HCl [Zanaflex] 4 mg PO Q8H PRN 12/23/15 MedroxyPROGESTERone [Depo-Provera] 150 mg IM .[id number] 03/15/16 Albuterol Inhaler [Ventolin Hfa] 1 puff INHALATION Q4H PRN PRN 10/02/16 Fluoxetine [Prozac] 20 mg PO DAILY 09/20/17 Pregabalin [Lyrica] 150 mg PO BID 04/25/18 Zolpidem Tartrate [Ambien] 10 mg PO QHS 05/25/18 Albuterol Aerosols [Ventolin Aerosols] 2.5 mg INHALATION Q4H PRN #25 vial 04/15/19 calcium carbonate 600 mg (1,500 mg)-vitamin D3 2,500 unit capsule 1 cap PO DAILY cap 04/07/20 trazodone 50 mg tablet 50 mg PO QHS PRN 04/07/20 Omeprazole 20 mg PO DAILY 05/25/20 Bupropion HCl [Bupropion Xl] 300 mg PO DAILY 07/10/20 Fluoxetine HCl 40 mg PO DAILY 07/10/20 Oxaprozin [Daypro] 600 mg PO BID 07/10/20 Primary Care Physician: Bill Dai MD [Primary Care Provider] - Please follow up with your Primary Care Physician in: 1 Week Test Results: Test results from this visit will be discussed in further detail at your follow- up appointment, if applicable. Proposed Discharge Date: 07/11/20
--- NOTE | 2020-07-11 12:27 | PHA.DC.MR ---
Pharmacy Service has performed discharge medication reconciliation for this patient. The patient's discharge medication list was reviewed for discrepancies and discrepancies were resolved. Home Medications Tizanidine HCl [Zanaflex] 4 mg PO Q8H PRN 12/23/15 MedroxyPROGESTERone [Depo-Provera] 150 mg IM .[id number] 03/15/16 Albuterol Inhaler [Ventolin Hfa] 1 puff INHALATION Q4H PRN PRN 10/02/16 Fluoxetine [Prozac] 20 mg PO DAILY 09/20/17 Pregabalin [Lyrica] 150 mg PO BID 04/25/18 Zolpidem Tartrate [Ambien] 10 mg PO QHS 05/25/18 Albuterol Aerosols [Ventolin Aerosols] 2.5 mg INHALATION Q4H PRN #25 vial 04/15/19 calcium carbonate 600 mg (1,500 mg)-vitamin D3 2,500 unit capsule 1 cap PO DAILY cap 04/07/20 trazodone 50 mg tablet 50 mg PO QHS PRN 04/07/20 Omeprazole 20 mg PO DAILY 05/25/20 Bupropion HCl [Bupropion Xl] 300 mg PO DAILY 07/10/20 Fluoxetine HCl 40 mg PO DAILY 07/10/20 Oxaprozin [Daypro] 600 mg PO BID 07/10/20
--- NOTE | 2020-07-11 12:51 | STRESSREP_ITS ---
Stress Test Report Date: 07-11-2020 Procedure: Pharmacologic stress nuclear imaging study Indications: Chest pain; shortness of breath/dyspnea Consent: Per the patient Procedure: The patient underwent pharmacologic (Regadenoson 0.4mg ) evaluation with a peak heart rate of 83 beats per minute (46%predicted maximal heart rate) and a peak blood pressure of 132/82 mmHg. The baseline ECG demonstrated normal sinus rhythm. The peak pharmacologic ECG demonstrated no obvious ECG changes. There were no cardiac dysrhythmias pretest, during pharmacologic infusion, or recovery. There was no complaint of chest discomfort during pharmacologic infusion or recovery. The examination was discontinued secondary to completion of protocol. Impression: 1. Pharmacologic (Regadenoson) evaluation 2. Peak pharmacologic ECG with no obvious ECG changes. 3. There were no cardiac dysrhythmias pretest, during pharmacologic infusion, or recovery. 4. Nuclear images pending Myocardial perfusion imaging study: Technique: The patient was injected with 11.0 millicuries of technetium 99m Cardiolite and subsequently rest SPECT Cardiolite nuclear imaging was obtained in the horizontal long, vertical long, and short axis views. The patient underwent pharmacologic (Regadenoson) evaluation with a peak heart rate of 83 beats per minute (46% percent predicted maximal heart rate) and a peak blood pressure of 132/82 mmHg. The patient was injected with 32.0 millicuries of technetium 99m Cardiolite and subsequently stress SPECT Cardiolite nuclear imaging was obtained in the horizontal long, vertical long, and short axis views. A gated Cardiolite study at peak stress was obtained. Interpretation: Rest and stress SPECT Cardiolite nuclear imaging status post realignment, normalization, and attenuation correction demonstrate an element of body motion during image acquisition as well as an element of extracardiac/gastrointestinal tracer uptake near the inferior segments while demonstrating a small area of subtle diminished tracer uptake near the inferior apical segments that appears without significant change between rest and stress. There is end systolic thickening and brightening. The gated Cardiolite study demonstrates myocardial thickening and inward wall motion. The reported LVEF is 66%. Impression: 1. Rest and stress SPECT current nuclear imaging demonstrate an element of body motion during image acquisition as well as an element of extracardiac/gastrointestinal tracer uptake near the inferior segments while demonstrating a small area of subtle diminished tracer uptake near the inferior apical segments that appears without significant change between rest and stress compatible with the effects of body motion during image acquisition as well as the effects of extracardiac/gastrointestinal tracer uptake with no myocardial perfusion changes considered diagnostic for associated stress-induced myocardial ischemia. 2. The gated Cardiolite study reports an LVEF of 66%. This note was generated with Qwicklyation software. It may contain incorrect words, spelling, and punctuation that were not noted in checking the note before signing.
--- NOTE | 2020-07-11 13:31 | DS.PCM_ITS ---
<KevinSarah BREAD DOUGH MIXER - Last Filed: 07/11/20 13:34> Discharge Date and Diagnosis - Problem List Patient Problems: Active and Suspected Problems (Last Updated 04/07/20 @ 11:08 by Leighann Montes De Oca) Chest pain (Acute) Date of Admission: 07/10/20 Date of Discharge: 07/11/20 - Primary Discharge Diagnosis Acute Problems: Active Problems (Last Updated 04/07/20 @ 11:08 by Leighann Montes De Oca) 1. Atypical chest pain, ACS ruled out 2. History of aortic valve repair/ASD repair 3. History of PE-provoked. 4. History of tobacco use with recent cessation 5. History of TIA 6. Fibromyalgia 7. Anxiety/depression 8. Hypertension - Secondary Discharge Diagnosis Chronic Problems: Chronic Problems (Last Updated 04/07/20 @ 11:08 by Leighann Montes De Oca) Fibromyalgia (Chronic) Depression (Chronic) Non-rheumatic tricuspid valve insufficiency (Chronic) History of bicuspid aortic valve (Chronic) History of atrial septal defect repair (Chronic ~12/04/00) Essential hypertension (Chronic) H/O aortic valve repair (Chronic ~12/04/00) Pulmonary hypertension (Chronic) Seizure disorder (Chronic) Hospital Course and Treatment Imaging Results: Diagnostic Data Chest CTA 07/10/20 13:06 IMPRESSION: No evidence of pulmonary embolism. Mild degree of groundglass appearance in the posterior aspect of the right upper lobe abutting the minor fissure. Electronically Signed: Tenzin Persaud MD at 15:00 EST , Service support , Chest X-Ray 07/10/20 14:12 IMPRESSION: The lungs are clear. Electronically Signed: Tenzin Persaud MD at 14:27 EST , Service support , Operations: None Procedures: Stress test Summary of Care Provided: The patient is a 39 year old F admitted 07/10/20 due to chest pain. 1. Atypical chest pain-EKG without ST-T changes. Enzymes negative. Patient underwent nuclear stress test which was negative for ischemia. LVEF 66%. Suspect chest pain musculoskeletal in nature. Follow-up with PCP in 1 week. 2. History of aortic valve repair/ASD repair 3. History of PE-provoked. CTA negative. 4. History of tobacco use with recent cessation-encouraged continued cessation. 5. History of TIA-not on aspirin, statin. 6. Fibromyalgia-continue home regimen. 7. Anxiety/depression-on bupropion, fluoxetine. 8. Hypertension-not on regimen, monitor BP. General: Alert, Oriented x3, Cooperative HEENT: Atraumatic, PERRLA, EOMI, Normocephalic Neck: Supple, No JVD, Negative Carotid Bruits Lungs: Clear to auscultation, Diminished Cardiovascular: Regular rate, Regular Rhythm Abdomen: Bowel Sounds Present, Soft, Non Tender, Non-Distended Extremities: No clubbing, No cyanosis, No edema, Capillary Refill Less than 3 Seconds Skin: No rashes, No breakdown Musculoskeletal: No Tenderness to Palpation of Joints or Extremities Neurological: Cranial nerves II-XII grossly intact, Neuro grossly intact Psych/Mental Status: Normal Affect, Appropriate Patient seen and examined prior to discharge. Physical assessment as noted above. Patient is stable for discharge with follow up recommendations as noted above. This patient was seen by TANYA Hebert under the supervision of Dr. Blnak. Patient Problems: Active and Suspected Problems (Last Updated 04/07/20 @ 11:08 by Leighann Montes De Oca) Chest pain (Acute) - Physical Exam Vitals/I&O's: Vital Signs Temp Pulse Resp BP Pulse Ox 97.6 F L 68 18 138/74 H 98 07/11/20 11:48 07/11/20 11:48 07/11/20 11:48 07/11/20 11:48 07/11/20 11:48 Oxygen Delivery Method Room Air Weight: 198 lb 6.656 oz Body Mass Index (BMI) 35.1 Finger Stick Blood Glucose 140 Intake and Output for Last 24 Hours 07/09/20 07/10/20 07/11/20 23:59 23:59 23:59 Intake Total 540 / 540 Balance 540 / 540 Microbiology Past 72 Hours 07/10/20 15:50 Mucosa - Nose SARS-CoV-2 Antigen (Rapid) - Final Laboratory Results 07/10/20 19:10: Troponin I < 0.015 07/10/20 21:18: Troponin I < 0.015 07/11/20 00:42: Troponin I < 0.015 07/11/20 06:20: WBC 7.7, RBC 4.01 L, Hgb 11.3 L, Hct 37.0, MCV 92.3, MCH 28.2, MCHC 30.5 L, RDW Std Deviation 50.2 H, RDW Coeff of Beto 14.6, Plt Count 306, MPV 10.7, Immature Gran % (Auto) 0.300, Neut % (Auto) 59.2, Lymph % (Auto) 26.2, [place] % (Auto) 11.0 H, Eos % (Auto) 2.9, Baso % (Auto) 0.4, Absolute Neuts (auto) 4.5, Absolute Lymphs (auto) 2.01, Nucleated RBC % 0 07/11/20 06:20: Sodium 137, Potassium 3.6, Chloride 106, Carbon Dioxide 24.0, Anion Gap 7, BUN 15, Creatinine 0.87, Estim Creat Clear Calc 70.39, Est GFR (MDRD) Af Amer 91, Est GFR (MDRD) Non-Af 76, BUN/Creatinine Ratio 17.2, Glucose 128 H, Calcium 8.4 L, Triglycerides 170, Cholesterol 165, LDL Cholesterol 90, VLDL Cholesterol 34, HDL Cholesterol 41 Current Medications Albuterol Sulfate (Albuterol 2.5 Mg/3 Ml Vial.Neb.) 2.5 mg INHALATION Q4H PRN PRN PRN Reason: SHORTNESS OF BREATH Last Admin: 07/11/20 10:15 Dose: 2.5 mg Documented by: Aspirin (Aspirin E.C. 81 Mg Tablet) 81 mg PO DAILY@0800 [facility] Last Admin: 07/11/20 05:30 Dose: 81 mg Documented by: Bupropion HCl (Bupropion (Xl) 300 Mg Tablet.Xl) 300 mg PO DAILY [facility] Last Admin: 07/11/20 09:56 Dose: 300 mg Documented by: Fluoxetine HCl (Fluoxetine 20 Mg Capsule) 60 mg PO DAILY [facility] Last Admin: 07/11/20 09:55 Dose: 60 mg Documented by: Sodium Chloride () 250 mls @ 15 mls/hr IV .[id number] PRN PRN Reason: Saline Flush Sodium Chloride () 250 mls @ 15 mls/hr IV .[id number] PRN PRN Reason: Additional IVPB Infusion Ibuprofen (Ibuprofen 400 Mg Tablet) 400 mg PO BID [facility] Last Admin: 07/11/20 09:55 Dose: 400 mg Documented by: Melatonin (Melatonin 3 Mg Tablet) 3 mg PO QHS PRN PRN PRN Reason: INSOMNIA Morphine Sulfate (Morphine 2 Mg/Ml Syringe) 2 mg IV Q4H PRN PRN PRN Reason: pain 4-10 Last Admin: 07/11/20 10:44 Dose: 2 mg Documented by: Nitroglycerin (Nitroglycerin (Inpatient Use) 0.4 Mg Tab.Subl) 0.4 mg SUBLINGUAL Q5M PRN PRN Reason: CARDIAC/CHEST PAIN Last Admin: 07/10/20 22:03 Dose: 1 tab Documented by: Ondansetron HCl (Ondansetron 4 Mg/2 Ml Vial) 4 mg IV Q8H PRN PRN PRN Reason: NAUSEA/VOMITING Pantoprazole Sodium (Pantoprazole Sodium 20 Mg Tablet) 20 mg PO DAILY [facility] Last Admin: 07/11/20 09:55 Dose: 20 mg Documented by: Pregabalin (Pregabalin 75 Mg Capsule) 150 mg PO BID [facility] Last Admin: 07/11/20 09:55 Dose: 150 mg Documented by: Sodium Chloride (0.9% Saline Lock 10 Ml Syringe) 10 - 40 ml IV UD PRN PRN Reason: SALINE FLUSH Last Admin: 07/11/20 10:43 Dose: 20 ml Documented by: Tizanidine HCl (Tizanidine Hcl 2 Mg Tablet) 4 mg PO Q8H PRN PRN PRN Reason: back spasms Last Admin: 07/11/20 09:57 Dose: 4 mg Documented by: Trazodone HCl (Trazodone 50 Mg Tablet) 50 mg PO QHS PRN PRN PRN Reason: SLEEP Zolpidem Tartrate (Zolpidem Tartrate 5 Mg Tablet) 5 mg PO QHS [facility] Last Admin: 07/10/20 21:48 Dose: 5 mg Documented by: Discharge Diet: No Restrictions Discharge Activity: Return to Normal Activity Call your doctor if you observe: Shortness of breath, Dizziness, Fainting spells, Chest pain Home Medications: Medications to take at Discharge Tizanidine HCl [Zanaflex] 4 mg PO Q8H PRN 12/23/15 MedroxyPROGESTERone [Depo-Provera] 150 mg IM .[id number] 03/15/16 Albuterol Inhaler [Ventolin Hfa] 1 puff INHALATION Q4H PRN PRN 10/02/16 Fluoxetine [Prozac] 20 mg PO DAILY 09/20/17 Pregabalin [Lyrica] 150 mg PO BID 04/25/18 Zolpidem Tartrate [Ambien] 10 mg PO QHS 05/25/18 Albuterol Aerosols [Ventolin Aerosols] 2.5 mg INHALATION Q4H PRN #25 vial 04/15/19 calcium carbonate 600 mg (1,500 mg)-vitamin D3 2,500 unit capsule 1 cap PO DAILY cap 04/07/20 trazodone 50 mg tablet 50 mg PO QHS PRN 04/07/20 Omeprazole 20 mg PO DAILY 05/25/20 Bupropion HCl [Bupropion Xl] 300 mg PO DAILY 07/10/20 Fluoxetine HCl 40 mg PO DAILY 07/10/20 Oxaprozin [Daypro] 600 mg PO BID 07/10/20 Primary Care Physician: Bill Dai MD [Primary Care Provider] - Please follow up with your Primary Care Physician in: 1 Week Disposition: Home Minutes spent on discharge:: 35 Patient Condition:: Stable Medical Necessity - Tobacco Use Smoking Status: Former smoker Meaningful Use Info Meaningful Use Diagnoses (Choose all that apply): None applicable <PrakashtamarCyriljeremi Gomez - Last Filed: 07/11/20 13:51> Discharge Date and Diagnosis - Primary Discharge Diagnosis Acute Problems: Active Problems (Last Updated 04/07/20 @ 11:08 by Leighann Montes De Oca) Chest pain (Acute) - Secondary Discharge Diagnosis Chronic Problems: Chronic Problems (Last Updated 04/07/20 @ 11:08 by Leighann Montes De Oca) Fibromyalgia (Chronic) Depression (Chronic) Non-rheumatic tricuspid valve insufficiency (Chronic) History of bicuspid aortic valve (Chronic) History of atrial septal defect repair (Chronic ~12/04/00) Essential hypertension (Chronic) H/O aortic valve repair (Chronic ~12/04/00) Pulmonary hypertension (Chronic) Seizure disorder (Chronic) Hospital Course and Treatment Imaging Results: 07/11/20 05:55 Nuclear Stress Test - Chemical [NM] AM (NON MEDS) Summary of Care Provided: Hospitalist note: Discharge summary above reviewed and I concur with above discharge and treatment plan. Patient admitted for chest pain for evaluation. Her EKG revealed no evidence of acute hemic changes. Troponin was negative x3. Chest x-ray showed no acute findings. CTA of the chest showed no PE or dissection, no other acute findings. She had venous Doppler of the left lower extremity that showed no evidence of DVT. She underwent nuclear stress test that showed no evidence of stress-induced myocardial ischemia. ACS ruled out. This chest pain is probably due to musculoskeletal pain. Patient discharged home in a stable medical condition, discharged on her previous medications without any changes, recommended follow-up with PCP in 1 week. - Physical Exam General: Alert, Oriented x3, Cooperative, No apparent distress. HEENT: Atraumatic, PERRLA, EOMI. Neck: Supple, No JVD, Negative Carotid Bruits, Trachea Midline, Thyroid Normal. Lungs: Clear to auscultation, Normal air movement, No rhonchi, No wheeze, No rales. Cardiovascular: Regular rate, Regular Rhythm, Normal S1, Normal S2, PMI Normal. Abdomen: Bowel Sounds Present, Soft, Non Tender, Non-Distended, No Hepato- splenomegaly. Extremities: No clubbing, No cyanosis, No edema Skin: No rashes, No breakdown Neurological: Cranial nerves are intact, neuro grossly intact Vital Signs are stable. This note was generated with [employer] dictation software. It may contain incorrect words, spelling, and punctuation that were not noted in checking the note before signing. - Physical Exam Vitals/I&O's: Vital Signs Temp Pulse Resp BP Pulse Ox 97.6 F L 68 18 138/74 H 98 07/11/20 11:48 07/11/20 11:48 07/11/20 11:48 07/11/20 11:48 07/11/20 11:48 Oxygen Delivery Method Room Air Weight: 198 lb 6.656 oz Body Mass Index (BMI) 35.1 Finger Stick Blood Glucose 140 Intake and Output for Last 24 Hours 07/09/20 07/10/20 07/11/20 23:59 23:59 23:59 Intake Total 540 / 540 Balance 540 / 540 Microbiology Past 72 Hours 07/10/20 15:50 Mucosa - Nose SARS-CoV-2 Antigen (Rapid) - Final Laboratory Results 07/10/20 19:10: Troponin I < 0.015 07/10/20 21:18: Troponin I < 0.015 07/11/20 00:42: Troponin I < 0.015 07/11/20 06:20: WBC 7.7, RBC 4.01 L, Hgb 11.3 L, Hct 37.0, MCV 92.3, MCH 28.2, MCHC 30.5 L, RDW Std Deviation 50.2 H, RDW Coeff of Beto 14.6, Plt Count 306, MPV 10.7, Immature Gran % (Auto) 0.300, Neut % (Auto) 59.2, Lymph % (Auto) 26.2, [place] % (Auto) 11.0 H, Eos % (Auto) 2.9, Baso % (Auto) 0.4, Absolute Neuts (auto) 4.5, Absolute Lymphs (auto) 2.01, Nucleated RBC % 0 07/11/20 06:20: Sodium 137, Potassium 3.6, Chloride 106, Carbon Dioxide 24.0, Anion Gap 7, BUN 15, Creatinine 0.87, Estim Creat Clear Calc 70.39, Est GFR (MDRD) Af Amer 91, Est GFR (MDRD) Non-Af 76, BUN/Creatinine Ratio 17.2, Glucose 128 H, Calcium 8.4 L, Triglycerides 170, Cholesterol 165, LDL Cholesterol 90, VLDL Cholesterol 34, HDL Cholesterol 41 Current Medications Albuterol Sulfate (Albuterol 2.5 Mg/3 Ml Vial.Neb.) 2.5 mg INHALATION Q4H PRN PRN PRN Reason: SHORTNESS OF BREATH Last Admin: 07/11/20 10:15 Dose: 2.5 mg Documented by: Aspirin (Aspirin E.C. 81 Mg Tablet) 81 mg PO DAILY@0800 [facility] Last Admin: 07/11/20 05:30 Dose: 81 mg Documented by: Bupropion HCl (Bupropion (Xl) 300 Mg Tablet.Xl) 300 mg PO DAILY [facility] Last Admin: 07/11/20 09:56 Dose: 300 mg Documented by: Fluoxetine HCl (Fluoxetine 20 Mg Capsule) 60 mg PO DAILY [facility] Last Admin: 07/11/20 09:55 Dose: 60 mg Documented by: Sodium Chloride () 250 mls @ 15 mls/hr IV .[id number] PRN PRN Reason: Saline Flush Sodium Chloride () 250 mls @ 15 mls/hr IV .[id number] PRN PRN Reason: Additional IVPB Infusion Ibuprofen (Ibuprofen 400 Mg Tablet) 400 mg PO BID [facility] Last Admin: 07/11/20 09:55 Dose: 400 mg Documented by: Melatonin (Melatonin 3 Mg Tablet) 3 mg PO QHS PRN PRN PRN Reason: INSOMNIA Morphine Sulfate (Morphine 2 Mg/Ml Syringe) 2 mg IV Q4H PRN PRN PRN Reason: pain 4-10 Last Admin: 07/11/20 10:44 Dose: 2 mg Documented by: Nitroglycerin (Nitroglycerin (Inpatient Use) 0.4 Mg Tab.Subl) 0.4 mg SUBLINGUAL Q5M PRN PRN Reason: CARDIAC/CHEST PAIN Last Admin: 07/10/20 22:03 Dose: 1 tab Documented by: Ondansetron HCl (Ondansetron 4 Mg/2 Ml Vial) 4 mg IV Q8H PRN PRN PRN Reason: NAUSEA/VOMITING Pantoprazole Sodium (Pantoprazole Sodium 20 Mg Tablet) 20 mg PO DAILY [facility] Last Admin: 07/11/20 09:55 Dose: 20 mg Documented by: Pregabalin (Pregabalin 75 Mg Capsule) 150 mg PO BID [facility] Last Admin: 07/11/20 09:55 Dose: 150 mg Documented by: Sodium Chloride (0.9% Saline Lock 10 Ml Syringe) 10 - 40 ml IV UD PRN PRN Reason: SALINE FLUSH Last Admin: 07/11/20 10:43 Dose: 20 ml Documented by: Tizanidine HCl (Tizanidine Hcl 2 Mg Tablet) 4 mg PO Q8H PRN PRN PRN Reason: back spasms Last Admin: 07/11/20 09:57 Dose: 4 mg Documented by: Trazodone HCl (Trazodone 50 Mg Tablet) 50 mg PO QHS PRN PRN PRN Reason: SLEEP Zolpidem Tartrate (Zolpidem Tartrate 5 Mg Tablet) 5 mg PO QHS [facility] Last Admin: 07/10/20 21:48 Dose: 5 mg Documented by: Disposition: Home Minutes spent on discharge:: 26 Patient Condition:: Stable Meaningful Use Info Meaningful Use Diagnoses (Choose all that apply): None applicable OBSV E&M: 18532 Observation care discharge
== END 2020-07-11 11:40 | disposition home or self-care (01) ==
LOC: ED 13:20 → PCU 17:57
PROVIDERS: Admitting Provider Family Medicine; Emergency Provider Student in an Organized Health Care Education/Training Program; PCP Family Medicine; Visit Provider Hospitalist
DX: R07.89 Other chest pain (principal); M79.7 Fibromyalgia; I10 Essential (primary) hypertension; M79.662 Pain in left lower leg; F32.9 Major depressive disorder, single episode, unspecified; F41.9 Anxiety disorder, unspecified; R91.8 Other nonspecific abnormal finding of lung field; G40.909 Epilepsy, unspecified, not intractable, without status epilepticus; J45.990 Exercise induced bronchospasm; M19.90 Unspecified osteoarthritis, unspecified site; I27.20 Pulmonary hypertension, unspecified; Z86.711 Personal history of pulmonary embolism; Z87.891 Personal history of nicotine dependence; Z86.73 Personal history of transient ischemic attack (TIA), and cerebral infarction without residual deficits; Z79.899 Other long term (current) drug therapy; Z86.718 Personal history of other venous thrombosis and embolism; Z87.74 Personal history of (corrected) congenital malformations of heart and circulatory system
CPT/HCPCS: 36415; 71045; 71275; 78452; 80048; 80061; 84484; 85025; 87426; 93005; 93017; 93971; 94640; 96374; 96375; 96376; 99218; 99285; A9500; Q9967; A4216; G0378; J2405; J2785

== ENCOUNTER 2020-09-21 17:32 | Emergency (ER) | payer MEDICAID, SELFPAY ==
[2020-07-10 18:33] VITALS: BMI 35.1
[2020-09-21 17:33] VITALS: BP 167/99; PULSE 84; RESP 22; TEMP 36.3; O2SAT 99; BMI 37.2
[2020-09-21 18:42] VITALS: PULSE 78; RESP 16; O2SAT 96
--- NOTE | 2020-09-21 18:48 | CT_ITS ---
HISTORY: sob TECHNIQUE: Helically acquired images were obtained of the chest following the intravenous administration of 100 ML of Isovue-370 Iodinated contrast. as per pulmonary angiogram protocol with 2D , without 3-D MIP reconstructions. A radiation dose optimization technique was used for this scan. COMPARISON: Of the patient's 153 previous radiologic exams performed at this institution alone, the most recent comparison CT angiogram of the chest is from July 10, 2020. The study before that is from April 02, 2018. FINDINGS: # of images incl. paperwork: [id number] Tiny bilateral [place] hernias of the same. Some scarring in the right lung is similar.. No effusions. Focal pleural thickening adjacent to all right rib fractures Within the thoracic spinethere is a gentle levoscoliosis within the cervical thoracic junction and a compensatory dextroscoliosis within the mid thoracic spine Vertebral body height is normal. Facets are well aligned. No acute rib fractures are perceived. The right second, fourth, seventh, and eighth ribs demonstrate healing or healed fractures. 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 This is the same as the previous study. Sternal wires remain Heart is not enlarged. Thoracic aorta is normal. No aneurysms, stenoses, dissections, nor occlusions. No axillary or mediastinal adenopathy. No pulmonary emboli. Visualized portions of the upper abdomen are without identified acute pathology. CT/CTA Chest W/WO Contrast IMPRESSION: No pulmonary embolism, aortic aneurysm, or aortic dissection. Individualized dose optimization techniques were used for this CT. at 2117 Reported and signed by: Mat Gray MD Electronically Signed: Mat Gray MD at 21:17 EDT Tel , Service support ,
--- NOTE | 2020-09-21 18:48 | EKG12_ITS ---
Test Reason : CP Blood Pressure : / mmHG Vent. Rate : 079 BPM Atrial Rate : 079 BPM P-R Int : 118 ms QRS Dur : 088 ms QT Int : 416 ms P-R-T Axes : 067 048 057 degrees QTc Int : 477 ms Normal sinus rhythm ST & T wave abnormality, consider anterior ischemia Abnormal ECG Confirmed by DIPIKA ADAMS, CONCEPCION ([id number]), editorial writer DIOR LE ([id number]) on 09/25/2020 12:19:58 PM Referred By: HAYLIE Confirmed By:CONCEPCION BAR MD
--- NOTE | 2020-09-21 18:51 | ED.VIS.CHEST ---
[facility] History of Present Illness Chief Complaint: Chest Pain Narrative Patient presents with pleuritic left-sided chest pain and left lower extremity edema for the past few days no fever chills cough or congestion. She does have a history of DVT and PE. She has no fever or chills she has no back pain or tearing sensation. No recent travel history. She has no radiation of the chest pain to her arm or jaw. Pain is sharp and stabbing in nature. Past medical history: Reviewed, includes PE, tricuspid insufficiency, bicuspid aortic valve status post repair 20 years ago, hypertension, seizure disorder Medications: Reviewed Social history: Noncontributory Review of systems: All systems negative except as indicated General: No fever Eyes: No visual changes ENT: No upper airway congestion, normal voice Neck: No neck pain Cardiovascular: Chest pain as in HPI Respiratory: Some dyspnea, no cough Gastrointestinal: No abdominal pain, nausea vomiting or diarrhea Genitourinary: No dysuria Musculoskeletal: Denies myalgias no difficulty with ambulation. Left lower extremity edema as in HPI Skin: No rash Neurological: No memory loss, confusion or any focal weakness Psych: No recent behavioral changes Hematologic: No easy bleeding or easy bruising [facility] Medical History (Updated 09/21/20 @ 22:[address] Satya Choe MD) Acute respiratory failure with hypoxia AI (aortic insufficiency) Anxiety disorder ARDS (adult respiratory distress syndrome) Arthritis Borderline personality disorder Chest pain CHF (congestive heart failure) Colitis Cough DDD (degenerative disc disease) Essential hypertension Exercise-induced asthma Fibromyalgia Hematemesis History of bicuspid aortic valve History of DVT of lower extremity History of pulmonary embolus (PE) History of stroke (~2001) Leiomyosarcoma Migraine Non-rheumatic tricuspid valve insufficiency Normochromic normocytic anemia Pulmonary hypertension Seizure disorder Syringomyelia Thrush TIA (transient ischemic attack) (~2001) Home Medications tizanidine 4 mg PO Q8H PRN 12/23/15 [History Last Taken 07/10/20 07:00] medroxyprogesterone 150 mg IM .[id number] 03/15/16 [History Last Taken 3 Weeks Ago ~06/19/20] albuterol sulfate 1 puff INHALATION Q4H PRN PRN 10/02/16 [History Last Taken 01/05/17] pregabalin 150 mg PO BID 04/25/18 [History Last Taken 07/10/20] zolpidem 10 mg PO QHS 05/25/18 [History Last Taken 07/09/20] albuterol sulfate 2.5 mg INHALATION Q4H PRN #25 vial 04/15/19 [Rx Last Taken Unknown] calcium carbonate 600 mg (1,500 mg)-vitamin D3 2,500 unit capsule 1 cap PO DAILY cap 04/07/20 [History Last Taken 07/09/20] omeprazole 20 mg PO DAILY 05/25/20 [History Last Taken 07/10/20] bupropion HCl 300 mg PO DAILY 07/10/20 [History Last Taken 07/09/20] fluoxetine 60 mg PO DAILY 07/10/20 [History Last Taken 07/09/20] oxaprozin 600 mg PO BID 07/10/20 [History Last Taken 07/10/20] naproxen [Naprosyn] 500 mg PO BID #20 tab 09/21/20 [Rx Last Taken Unknown] Allergy/AdvReac Type Severity Reaction Status Date / Time amitriptyline Allergy Other Verified 09/21/20 17:36 amoxicillin [Amoxicillin] Allergy Rash Verified 09/21/20 17:36 erythromycin base Allergy Rash Verified 09/21/20 17:36 [Erythromycin Base] hydroxyzine Allergy Rash Verified 09/21/20 17:36 levofloxacin [From Levaquin] Allergy Swelling Verified 09/21/20 17:36 milnacipran Allergy Other Verified 09/21/20 17:36 milnacipran HCl Allergy Other Verified 09/21/20 17:36 [From Savella] acetaminophen [From Tylenol] AdvReac Mild Vomiting Verified 09/21/20 17:36 celecoxib [From Celebrex] AdvReac Other Verified 09/21/20 17:36 diphenhydramine HCl AdvReac muscle Verified 09/21/20 17:36 [From Benadryl] spasms duloxetine HCl AdvReac Other Verified 09/21/20 17:36 [From Cymbalta] meloxicam AdvReac Swelling Verified 09/21/20 17:36 of legs/chest pain Family History Mother Cancer, Onset Age: 36 Breast CVA (cerebral vascular accident) CAD (coronary artery disease), Onset Age: 46 Myocardial infarction x2 Grandmother CAD (coronary artery disease) COPD (chronic obstructive pulmonary disease) Diabetes Surgical History (Updated 09/21/20 @ 18:19 by Olive Gonzalez) H/O aortic valve repair (~12/04/00) History of adenoidectomy History of atrial septal defect repair (~12/04/00) History of bilateral knee replacement History of left heart catheterization (LHC) (~01/31/17) History of right hip replacement Social History (Updated 04/07/20 @ 11:11 by Leighann Montes De Oca) Smoking Status: Light Smoker (<10/day) alcohol intake: current details: occasional substance use type: does not use EXAM Physical Exam Narrative Exam Narrative: Physical exam General: Patient does not appear in significant distress, she appears slightly anxious. Head: Normocephalic, Atraumatic Eyes: Conjunctiva not pale ENT: Moist mucous membranes Neck: Supple, Nontender, No lymphadenopathy Cardiovascular: Regular rate, Regular rhythm Respiratory: No distress, CTA bilaterally. No chest wall tenderness to palpation, slightly tachypneic Abdomen: Soft, Nontender, Nondistended Back: Nontender, Normal Inspection. Negative for: CVA tenderness Extremities: Left lower extremity edema with some calf pain. Skin: Normal color, No rash Neurological: Alert, Normal Strength, Normal Sensation Psychological: Slightly anxious Const Vital Signs: 09/21/20 17:33 09/21/20 18:17 09/21/20 18:42 Temperature 97.4 F L Temperature Source Temporal Pulse Rate 84 78 Respiratory Rate 22 H 16 Respiratory Effort Short of Breath Respiratory Pattern Irregular Blood Pressure 167/99 H Blood Pressure Mean 121 Pulse Ox 99 96 Oxygen Delivery Method Room Air Room Air Oxygen Flow Rate (L/min) 09/21/20 19:56 09/21/20 21:20 Temperature Temperature Source Pulse Rate 72 77 Respiratory Rate 20 H 24 H Respiratory Effort Respiratory Pattern Blood Pressure 149/88 H 172/89 H Blood Pressure Mean 108 116 Pulse Ox 97 97 Oxygen Delivery Method Room Air Nasal Cannula Oxygen Flow Rate (L/min) 2 MDM MDM MDM Narrative Medical decision making narrative: Patient has no evidence of DVT or thromboembolic disease she appears well and work-ups otherwise normal. I will discharge her, she likely has pleurisy. Lab Data Labs: Laboratory Results - last 24 hr 09/21/20 09/21/20 09/21/20 18:37 18:37 18:37 WBC 9.1 RBC 3.97 L Hgb 11.4 L Hct 35.6 L MCV 89.7 MCH 28.7 MCHC 32.0 RDW Std Deviation 45.0 H RDW Coeff of Beto 13.8 Plt Count 364 MPV 11.2 Immature Gran % (Auto) 0.300 Neut % (Auto) 67.8 Lymph % (Auto) 19.7 Walsh % (Auto) 9.8 Eos % (Auto) 1.9 Baso % (Auto) 0.5 Absolute Neuts (auto) 6.2 Absolute Lymphs (auto) 1.80 Nucleated RBC % 0 Sodium Potassium Chloride Carbon Dioxide Anion Gap BUN Creatinine Estim Creat Clear Calc Est GFR (MDRD) Af Amer Est GFR (MDRD) Non-Af BUN/Creatinine Ratio Glucose Calcium Total Bilirubin AST ALT Alkaline Phosphatase Troponin I < 0.015 B-Natriuretic Peptide 65.2 Total Protein Albumin Globulin Albumin/Globulin Ratio 09/21/20 18:37 WBC RBC Hgb Hct MCV MCH MCHC RDW Std Deviation RDW Coeff of Beto Plt Count MPV Immature Gran % (Auto) Neut % (Auto) Lymph % (Auto) Walsh % (Auto) Eos % (Auto) Baso % (Auto) Absolute Neuts (auto) Absolute Lymphs (auto) Nucleated RBC % Sodium 139 Potassium 3.7 Chloride 108 H Carbon Dioxide 25.0 Anion Gap 6 BUN 16 Creatinine 1.01 Estim Creat Clear Calc 60.02 Est GFR (MDRD) Af Amer 77 Est GFR (MDRD) Non-Af 64 BUN/Creatinine Ratio 15.8 Glucose 105 Calcium 9.3 Total Bilirubin 0.40 AST 43 H ALT 42 Alkaline Phosphatase 84 Troponin I B-Natriuretic Peptide Total Protein 7.1 Albumin 3.7 Globulin 3.4 Albumin/Globulin Ratio 1.1 Radiography Diagnostic Testing: Radiology Impression Chest CTA 09/21/20 18:48 IMPRESSION: No pulmonary embolism, aortic aneurysm, or aortic dissection. Individualized dose optimization techniques were used for this CT. at 2119 Reported and signed by: Mat Gray MD Electronically Signed: Mat Gray MD at 21:17 EDT Tel , Service support , EKG Initial EKG: Comments: Sinus rhythm with a rate of 79. Normal MD and QTc intervals. Subtle nonspecific ST changes throughout. Interpreted by emergency doctor. Discharge Plan Triage Chief Complaint: Chest Pain ED Provider: Satya Choe Dx/Rx/DC Orders Clinical Impression: Chest pain Instructions: ED Chest Wall Pain, Costochondritis, ED Pleurisy Prescriptions: New naproxen [Naprosyn] 500 mg tablet 500 mg PO BID Qty: 20 RF: 0 No Action calcium carbonate-vitamin D3 600 mg (1,500 mg)-2,500 unit capsule 1 cap PO DAILY RF: 0 tizanidine 4 MG tablet 4 mg PO Q8H PRN (Reason: Spasms) RF: 0 medroxyprogesterone 150 MG/ML syringe 150 mg IM .[id number] RF: 0 albuterol sulfate 1 INHALER inhaler 1 puff INHALATION Q4H PRN PRN (Reason: Sob &/Or Wheezing) RF: 0 pregabalin 150 MG capsule 150 mg PO BID RF: 0 zolpidem 10 mg tablet 10 mg PO QHS RF: 0 albuterol sulfate 2.5 MG/3 ML solution for nebulization 2.5 mg INHALATION Q4H PRN Qty: 25 RF: 0 omeprazole 20 MG tablet,disintegrat, delay rel 20 mg PO DAILY RF: 0 fluoxetine 40 MG capsule 60 mg PO DAILY RF: 0 oxaprozin 600 MG tablet 600 mg PO BID RF: 0 bupropion HCl 300 MG tablet extended release 24 hr 300 mg PO DAILY RF: 0 Primary Care Provider: Bill Dai Referrals: Bill Dai MD [Primary Care Provider] - 2 Days Disposition Disposition: Home, self care
[2020-09-21 19:41] LABS: Absolute Neutrophil Count 6.2 X10^3/uL (2.0-7.7); Basophil# 0.05 X10^3/uL; Basophil% 0.5 % (0-1); Eosinophil# 0.17 X10^3/uL; Eosinophils% 1.9 % (0-5); Hematocrit 35.6 % (37-47); Hemoglobin 11.4 g/dL (12.0-15.0); Lymphocyte % 19.7 % (19-41); Mean Corpuscular Hgb 28.7 pg (27.0-32.0); Mean Corpuscular Volume 89.7 fL (81-99); Mean Platelet Vol. 11.2 fl (6.2-12.0); Monocyte% 9.8 % (0-10); NRBC Flagged by Analyzer 0 % (0-5); Neutrophil # 6.19 X10^3/uL (2.7-7.7); Neutrophil % 67.8 % (47-70); Platelet Count 364 K/mm3 (150-450); RBC Distribution Width CV 13.8 % (11.6-14.6); Red Blood Count 3.97 M/mm3 (4.2-5.4); White Blood Count 9.1 K/mm3 (4.4-11.0)
[2020-09-21 19:56] VITALS: BP 149/88; PULSE 72; RESP 20; O2SAT 97
[2020-09-21 20:01] LABS: BNP,B-Type NATRIURETIC PEPTIDE 65.2 pg/mL (0-100)
[2020-09-21 20:37] LABS: ALB/GLOB Ratio 1.1 RATIO (0.9-2.4); AST(SGOT) 43 U/L (15-37); Alanine Aminotransfer ALT/SGPT 42 U/L (13-56); Albumin, Serum 3.7 g/dL (3.2-5.0); Alkaline Phosphatase 84 U/L (45-117); Anion Gap 6 (5-15); BUN 16 mg/dL (7-18); BUN/Creat Ratio 15.8 RATIO (10-20); Calcium,Total 9.3 mg/dL (8.5-10.1); Chloride 108 mmol/L (98-107); Creatinine, Serum 1.01 mg/dL (0.55-1.02); EST Glomerular Filtration Rate 64 mL/min (>60); Est Glom Filt Rate - Afr Amer 77 mL/min (>60); Estimated Creatinine Clearance 60.02 ml/min; Globulin 3.4 g/dL (2.2-4.2); Glucose 105 mg/dL (74-106); Potassium 3.7 mmol/L (3.5-5.1); Protein, Total 7.1 g/dL (6.4-8.2); Sodium Level 139 mmol/L (136-145)
[2020-09-21 21:20] VITALS: BP 172/89; PULSE 77; RESP 24; O2SAT 97
--- NOTE | 2020-09-21 21:45 | US_ITS ---
HISTORY: LT MEDIAL CALF PAIN EXAMINATION: US Venous Duplex LE Unilat / Limited TECHNIQUE: Adams scale, pulse wave, and color flow Doppler imaging was performed of the lower extremity venous system. The left greater saphenous, common femoral, femoral, and popliteal veins were interrogated. COMPARISON: Of the patient's 154 previous radiological exams at this institution alone, the previous venous duplex ultrasounds are from July 10, 2020, September 19, 2016 FINDINGS: There is normal compression, augmentation, and signal throughout the visualized deep lower extremity veins. Contralateral flow is demonstrated within the left common femoral vein No Intraluminal filling defects are perceived within the insonated veins. US/Venous Duplex Imag/Limited/Uni IMPRESSION: No sonographic evidence of deep venous thrombosis. at 2242 Reported and signed by: Mat Gray MD Electronically Signed: Mat Gray MD at 22:41 EDT Tel , Service support ,
[2020-09-21 22:32] VITALS: BP 148/82; PULSE 77; RESP 20; O2SAT 97
== END 2020-09-21 22:52 | disposition home or self-care (01) ==
PROVIDERS: Emergency Provider Emergency Medicine; PCP Family Medicine
DX: R07.9 Chest pain, unspecified (principal); M79.7 Fibromyalgia; Z86.73 Personal history of transient ischemic attack (TIA), and cerebral infarction without residual deficits; Z86.711 Personal history of pulmonary embolism; Z86.718 Personal history of other venous thrombosis and embolism
CPT/HCPCS: 71275; 80053; 83880; 84484; 85025; 87426; 93005; 93971; 99285; Q9967; A4216

== ENCOUNTER 2020-10-02 21:17 | Emergency (ER) | payer MEDICAID, SELFPAY ==
[2020-10-02 21:18] VITALS: BP 179/86; PULSE 89; RESP 15; TEMP 35.5; O2SAT 97; BMI 38.0
--- NOTE | 2020-10-02 21:41 | CT_ITS ---
STUDY: CT ABDOMEN AND PELVIS WITH CONTRAST REASON FOR EXAM: Female, 40 years old. RLQ abd pain RADIATION DOSAGE (If Supplied By Facility): CTDIvol = ( 14.37 ) mGy, DLP = ( 1217.55 ) mGycm TECHNIQUE: Transaxial images were obtained from the dome of the diaphragm to the symphysis pubis without oral contrast. IV 100mL Isovue-370 was administered. Sagittal and coronal images were reconstructed. Individualized dose optimization techniques were used for this CT. COMPARISON: 09/21/2020 FINDINGS: The visualized lung bases are unremarkable. The visualized portions of the heart are within normal limits. Normal liver. Normal gallbladder and extrahepatic biliary system. Normal spleen. Normal pancreas. Normal bilateral adrenal glands. Normal right kidney. Normal left kidney. Normal visualized stomach. Normal small intestine. Normal colon. The appendix is visualized and appears normal. Prominent fecal retention in the right hemicolon. Normal abdominal aorta. Normal inferior vena cava. Normal retroperitoneum. Normal urinary bladder. Moderate atrophy Normal abdominal wall. Normal osseous structures. CT/Abdomen/Pelvis W IV Cont ONLY IMPRESSION: Uterine atrophy. Fecal retention in the right hemicolon. Normal appendix. No acute findings. Electronically Signed: Ian Son DO at 22:53 EDT Tel , Service support ,
--- NOTE | 2020-10-02 21:43 | EDS_ITS ---
HPI HPI - GI History of Present Illness Chief Complaint: Abd Pain Informant: patient Abdominal Pain/Flank Pain Onset: Yesterday Timing: Continuous Location: RLQ Current Severity: Mild Maximum Severity: Mild Worsened by: Nothing Relieved by: Nothing Nausea/Vomiting/Emesis GI Symptom: Positive for Nausea Onset: Yesterday Severity: Mild Diarrhea/Melena/Hematochezia GI Symptom: Negative for Diarrhea and Melena Associated Symptoms Associated Symptoms: Negative for Dysuria and Frequency Narrative Narrative: 40-year-old female history of prior , kidney stones, ovarian cyst, left torsion with tube removed. Prior by bicuspid aortic valve repair, multiple other surgeries of fibromyalgia. Patient is complaining of a 2-day history of right lower quadrant abdominal pain. Still has her appendix. Denies any fever or chills. No dysuria. No vaginal bleeding or discharge. Prior similar symptoms: No Recent Illness/Hospitalization: No PFSH PFSH Medical History Acute respiratory failure with hypoxia AI (aortic insufficiency) Anxiety Anxiety disorder ARDS (adult respiratory distress syndrome) Arthritis Asthma Borderline personality disorder Chest pain CHF (congestive heart failure) Colitis Congestive heart failure (CHF) Cough DDD (degenerative disc disease) Depression Essential hypertension Exercise-induced asthma Fibromyalgia GERD (gastroesophageal reflux disease) Hematemesis History of bicuspid aortic valve History of DVT of lower extremity History of pulmonary embolus (PE) History of stroke (~2001) Kidney disease Kidney stones Leiomyosarcoma Migraine Non-rheumatic tricuspid valve insufficiency Normochromic normocytic anemia Pulmonary hypertension Seizure disorder Syringomyelia Thrush TIA (transient ischemic attack) (~2001) Home Medications tizanidine 4 mg PO Q8H PRN 12/23/15 [History Last Taken 07/10/20 07:00] medroxyprogesterone 150 mg IM .[id number] 03/15/16 [History Last Taken 3 Weeks Ago ~06/19/20] albuterol sulfate 1 puff INHALATION Q4H PRN PRN 10/02/16 [History Last Taken 01/05/17] pregabalin 150 mg PO BID 04/25/18 [History Last Taken 07/10/20] zolpidem 10 mg PO QHS 05/25/18 [History Last Taken 07/09/20] albuterol sulfate 2.5 mg INHALATION Q4H PRN #25 vial 04/15/19 [Rx Last Taken Unknown] omeprazole 20 mg PO DAILY 05/25/20 [History Last Taken 07/10/20] bupropion HCl 300 mg PO DAILY 07/10/20 [History Last Taken 07/09/20] fluoxetine 60 mg PO DAILY 07/10/20 [History Last Taken 07/09/20] oxaprozin 600 mg PO BID 07/10/20 [History Last Taken 07/10/20] Allergy/AdvReac Type Severity Reaction Status Date / Time amitriptyline Allergy Other Verified 10/02/20 21:20 amoxicillin [Amoxicillin] Allergy Rash Verified 10/02/20 21:20 erythromycin base Allergy Rash Verified 10/02/20 21:20 [Erythromycin Base] hydroxyzine Allergy Rash Verified 10/02/20 21:20 levofloxacin [From Levaquin] Allergy Swelling Verified 10/02/20 21:20 milnacipran Allergy Other Verified 10/02/20 21:20 milnacipran HCl Allergy Other Verified 10/02/20 21:20 [From Savella] acetaminophen [From Tylenol] AdvReac Mild Vomiting Verified 10/02/20 21:20 celecoxib [From Celebrex] AdvReac Other Verified 10/02/20 21:20 diphenhydramine HCl AdvReac muscle Verified 10/02/20 21:20 [From Benadryl] spasms duloxetine HCl AdvReac Other Verified 10/02/20 21:20 [From Cymbalta] meloxicam AdvReac Swelling Verified 10/02/20 21:20 of legs/chest pain Family History Mother Cancer, Onset Age: 36 Breast CVA (cerebral vascular accident) CAD (coronary artery disease), Onset Age: 46 Myocardial infarction x2 Grandmother CAD (coronary artery disease) COPD (chronic obstructive pulmonary disease) Diabetes Surgical History H/O aortic valve repair (~12/04/00) History of adenoidectomy History of atrial septal defect repair (~12/04/00) History of bilateral knee replacement History of left heart catheterization (LHC) (~01/31/17) History of right hip replacement Social History Smoking Status: Light Smoker (<10/day) alcohol intake: current details: occasional substance use type: does not use ROS ROS ED ROS Narrative Just nauseated associated with abdominal pain. No fever, chills or dysuria. Review of Systems ROS Unobtainable: Denies due to encephalopathy Constitutional Constitutional ED: Denies chills or fever(s) ENT ENT ED: Denies sore throat Cardiovascular Cardiovascular: Denies chest pain Respiratory/Chest Respiratory/Chest: Denies dyspnea Gastrointestinal Gastrointestinal: Reports abdominal pain and nausea; Denies constipation, diarrhea, melena or vomiting Genitourinary Genitourinary ED: Denies dysuria, hematuria or urinary frequency Musculoskeletal Musculoskeletal: Denies myalgias Integumentary Denies rash Neurologic Neurologic: Denies headache(s) Psychiatric Psychiatric: Denies depression Endocrine Endocrinology: Denies polyuria Hematologic/Lymphatic Hematologic/Lymphatic: Denies easy bruising Allergic/Immunologic Allergic/Immunologic ED: Denies urticaria EXAM Physical Exam Narrative Exam Narrative: Well-appearing middle-aged female no acute distress. Right lower quadrant abdominal pain. Vital signs are stable and afebrile. She does not look septic or toxic. HEENT exam unremarkable. Moist remembers. Neck nontender. Lungs clear to auscultation bilaterally. Heart regular rhythm rate about 110 no murmur. Abdomen soft. Nondistended normal bowel sounds no peritoneal signs. She has tenderness in the right lower quadrant only. There is no hernia or mass. No signs of obstruction. Right upper quadrant is unremarkable. Patient moving all 4 extremities. No edema. Back nontender. Neurologically she is awake and alert with no focal motor deficits. Const Vital Signs: 10/02/20 21:18 Temperature 96 F L Temperature Source Temporal Pulse Rate 89 Respiratory Rate 15 Blood Pressure 179/86 H Blood Pressure Mean 117 Pulse Ox 97 Oxygen Delivery Method Room Air HEENT Reports moist mucous membranes normocephalic Eyes PERRL and EOMs intact bilaterally Neck no lymphadenopathy, supple and no JVD General: Negative for tenderness Resp normal respiratory effort and clear to auscultation bilaterally Cardio regular rhythm and no murmurs Rate: tachycardic GI non-distended and no masses Auscultation: normoactive bowel sounds Palpation: soft and tender Back/Spine no CVA tenderness Extremity full ROM General Extremety ED: Negative for edema or tenderness General Extremity: Negative for edema Neuro moves all extremities Sensorium / Orientation: alert, oriented to person, oriented to place and oriented to time Psych mental status grossly normal Skin Lesions: no lesions Rashes: no rashes MDM MDM MDM Narrative Medical decision making narrative: Middle-aged female right lower quadrant abdominal pain. Rule out appendicitis versus other etiologies. She did not want any thing for pain. She was given IV fluids and IV Zofran. CAT scan, labs and urinalysis are pending. On repeat exam at 11:25 PM she is doing better. She was given IV Toradol for pain. Patient reportedly has a care plan per nursing. She will be discharged home with outpatient follow-up. Magnesium citrate as needed for constipation along with fiber, fruits, vegetables and increased water intake. Lab Data Attestation: I reviewed the patient's lab results. Labs: Laboratory Results - last 24 hr 10/02/20 10/02/20 10/02/20 21:35 21:35 21:35 WBC 10.5 RBC 4.07 L Hgb 11.5 L Hct 37.2 MCV 91.4 MCH 28.3 MCHC 30.9 L RDW Std Deviation 46.6 H RDW Coeff of Beto 13.8 Plt Count 398 MPV 10.6 Immature Gran % (Auto) 0.500 Neut % (Auto) 63.1 Lymph % (Auto) 22.1 Roosevelt % (Auto) 12.0 H Eos % (Auto) 1.8 Baso % (Auto) 0.5 Absolute Neuts (auto) 6.6 Absolute Lymphs (auto) 2.31 Nucleated RBC % 0 Sodium 140 Potassium 3.3 L Chloride 109 H Carbon Dioxide 22.0 Anion Gap 9 BUN 15 Creatinine 0.86 Estim Creat Clear Calc 70.49 Est GFR (MDRD) Af Amer 93 Est GFR (MDRD) Non-Af 77 BUN/Creatinine Ratio 17.4 Glucose 92 Calcium 8.7 Total Bilirubin 0.30 Direct Bilirubin 0.11 AST 30 ALT 39 Alkaline Phosphatase 95 Total Protein 7.3 Albumin 3.7 Globulin 3.6 Lipase 317 Serum , Qual Urine Color Yellow Urine Clarity Clear Urine pH 6.0 Ur Specific [place] 1.015 Urine Protein Negative Urine Glucose (UA) Normal Urine Ketones Negative Urine Occult Blood Negative Urine Nitrite Negative Urine Bilirubin Negative Urine Urobilinogen Normal Ur Leukocyte Esterase Negative Urine RBC 0 SEEN Urine WBC 0-5 SEEN Ur Squamous Epith Cells 0-5 SEEN Urine Bacteria RARE Urine Mucus 0 SEEN 10/02/20 21:35 WBC RBC Hgb Hct MCV MCH MCHC RDW Std Deviation RDW Coeff of Beto Plt Count MPV Immature Gran % (Auto) Neut % (Auto) Lymph % (Auto) Roosevelt % (Auto) Eos % (Auto) Baso % (Auto) Absolute Neuts (auto) Absolute Lymphs (auto) Nucleated RBC % Sodium Potassium Chloride Carbon Dioxide Anion Gap BUN Creatinine Estim Creat Clear Calc Est GFR (MDRD) Af Amer Est GFR (MDRD) Non-Af BUN/Creatinine Ratio Glucose Calcium Total Bilirubin Direct Bilirubin AST ALT Alkaline Phosphatase Total Protein Albumin Globulin Lipase Serum , Qual NEGATIVE Urine Color Urine Clarity Urine pH Ur Specific [place] Urine Protein Urine Glucose (UA) Urine Ketones Urine Occult Blood Urine Nitrite Urine Bilirubin Urine Urobilinogen Ur Leukocyte Esterase Urine RBC Urine WBC Ur Squamous Epith Cells Urine Bacteria Urine Mucus Labs are basically unremarkable including CBC, BMP, LFTs, lipase and test. CT abdomen pelvis IV contrast is read by the radiologist reviewed by me showed increased fecal retention on the right side but no appendicitis. No other acute abnormality. All test results were discussed with the patient. Radiography Diagnostic Testing: Radiology Impression Abdomen/Pelvis CT 10/02/20 21:41 IMPRESSION: Uterine atrophy. Fecal retention in the right hemicolon. Normal appendix. No acute findings. Electronically Signed: Ian Son DO at 22:53 EDT Tel , Service support , Discharge Plan Triage Chief Complaint: Abd Pain ED Provider: Man Singh Dx/Rx/DC Orders Clinical Impression: Abdominal pain, Constipation Instructions: ED Abdominal Pain Unkn Cause Fem, ED Constipation (Adult) Prescriptions: No Action tizanidine 4 MG tablet 4 mg PO Q8H PRN (Reason: Spasms) RF: 0 medroxyprogesterone 150 MG/ML syringe 150 mg IM .[id number] RF: 0 albuterol sulfate 1 INHALER inhaler 1 puff INHALATION Q4H PRN PRN (Reason: Sob &/Or Wheezing) RF: 0 pregabalin 150 MG capsule 150 mg PO BID RF: 0 zolpidem 10 mg tablet 10 mg PO QHS RF: 0 albuterol sulfate 2.5 MG/3 ML solution for nebulization 2.5 mg INHALATION Q4H PRN Qty: 25 RF: 0 omeprazole 20 MG tablet,disintegrat, delay rel 20 mg PO DAILY RF: 0 fluoxetine 40 MG capsule 60 mg PO DAILY RF: 0 oxaprozin 600 MG tablet 600 mg PO BID RF: 0 bupropion HCl 300 MG tablet extended release 24 hr 300 mg PO DAILY RF: 0 Primary Care Provider: Bill Dai Referrals: Bill Dai MD [Primary Care Provider] - 1-2 Days if not improving Activity Restrictions/Additional Instructions: Softener, fruits and vegetables. Follow-up with your doctor if not improving.Tylenol for pain. Plenty of fluids and magnesium citrate for constipation. Increase your fiber intake Disposition Disposition: Home, self care
[2020-10-02] MEDS: 0.9% Normal Saline 1,000 ML 1000 ML IV (21:47)
[2020-10-02] MEDS: Ondansetron 4 MG/2 ML Vial IV (21:47)
[2020-10-02 21:54] LABS: Mucous, Urine 0 SEEN /hpf (<or=2+); Red Blood Cells-Urine 0 SEEN /hpf (0-5)
[2020-10-02 21:55] LABS: Absolute Lymphocyte Count 2.31 X10^3/uL (0.83-4.51); Absolute Neutrophil Count 6.6 X10^3/uL (2.0-7.7); Basophil# 0.05 X10^3/uL; Basophil% 0.5 % (0-1); Eosinophil# 0.19 X10^3/uL; Eosinophils% 1.8 % (0-5); Hematocrit 37.2 % (37-47); Hemoglobin 11.5 g/dL (12.0-15.0); Lymphocyte # 2.31 X10^3/ul (0.83-4.51); Lymphocyte % 22.1 % (19-41); Mean Corp Hgb Conc 30.9 g/dL (32-36); Mean Corpuscular Hgb 28.3 pg (27.0-32.0); Mean Corpuscular Volume 91.4 fL (81-99); Mean Platelet Vol. 10.6 fl (6.2-12.0); Monocyte# 1.26 X10^3/uL; NRBC Flagged by Analyzer 0 % (0-5); Neutrophil % 63.1 % (47-70); Platelet Count 398 K/mm3 (150-450); RBC Distribution Width CV 13.8 % (11.6-14.6); RBC Distribution Width SD 46.6 fl (35.1-43.9); Red Blood Count 4.07 M/mm3 (4.2-5.4); White Blood Count 10.5 K/mm3 (4.4-11.0)
[2020-10-02 21:56] LABS: Color, Urine Yellow (Yellow); Glucose, Dipstick Normal (Normal); Ketone-Dipstick Negative (Negative); Leukocyte Esterase-Dipstick Negative /ul (Negative); Nitrite-Dipstick Negative (Negative); Occult Blood-Urine Negative /ul (Negative); Protein-Dipstick Negative (Negative); Specific Gravity, Urine 1.015 (1.002-1.030); Urine Bilirubin Dipstick Negative (Negative); Urine Clarity Clear (Clear); Urine Urobilinogen Normal (Normal)
[2020-10-02 22:01] LABS: Bacteria RARE /hpf (None Seen); Squamous Epithelial Cells - UA 0-5 SEEN /hpf (5-10); White Blood Cells 0-5 SEEN /hpf (0-5)
[2020-10-02 22:03] LABS: Internal QC Validated? YES +Cl - CLEAR BKGD; Pregnancy, Serum, hCG Quali. NEGATIVE Negative
[2020-10-02 22:10] LABS: AST(SGOT) 30 U/L (15-37); Alanine Aminotransfer ALT/SGPT 39 U/L (13-56); Albumin, Serum 3.7 g/dL (3.2-5.0); Alkaline Phosphatase 95 U/L (45-117); Anion Gap 9 (5-15); BUN 15 mg/dL (7-18); BUN/Creat Ratio 17.4 RATIO (10-20); Bilirubin, Direct 0.11 mg/dL (0.00-0.30); Calcium,Total 8.7 mg/dL (8.5-10.1); Chloride 109 mmol/L (98-107); Creatinine, Serum 0.86 mg/dL (0.55-1.02); EST Glomerular Filtration Rate 77 mL/min (>60); Est Glom Filt Rate - Afr Amer 93 mL/min (>60); Estimated Creatinine Clearance 70.49 ml/min; Globulin 3.6 g/dL (2.2-4.2); Glucose 92 mg/dL (74-106); Lipase 317 U/L (73-393); Potassium 3.3 mmol/L (3.5-5.1); Protein, Total 7.3 g/dL (6.4-8.2); Sodium Level 140 mmol/L (136-145)
[2020-10-02] MEDS: Ketorolac 30 MG/ML Syringe IV (22:16)
[2020-10-02 23:34] VITALS: BP 144/71; PULSE 74; RESP 18; O2SAT 99
== END 2020-10-02 23:34 | disposition home or self-care (01) ==
PROVIDERS: Emergency Provider Emergency Medicine; PCP Family Medicine
DX: R10.31 Right lower quadrant pain (principal); K59.00 Constipation, unspecified; J45.990 Exercise induced bronchospasm; K21.9 Gastro-esophageal reflux disease without esophagitis; F32.9 Major depressive disorder, single episode, unspecified; Z98.891 History of uterine scar from previous surgery; Z86.73 Personal history of transient ischemic attack (TIA), and cerebral infarction without residual deficits; Z86.718 Personal history of other venous thrombosis and embolism; Z86.711 Personal history of pulmonary embolism; Z79.899 Other long term (current) drug therapy
CPT/HCPCS: 74177; 80048; 80076; 81001; 83690; 84703; 85025; 96374; 96375; 99284; J7030; Q9967; A4216; J2405

== ENCOUNTER → 2023-09-12 | Outpatient (CLI) | payer MEDICAID, SELFPAY ==
--- NOTE | 2023-09-12 10:40 | CT_ITS ---
STUDY: CT CHEST WITHOUT CONTRAST REASON FOR EXAM: Female, 43 years old. TRACHEAL STENOSIS S/P TRACHEOSTOMY RADIATION DOSAGE (If Supplied By Facility): CTDIvol = ( 16.83 ) mGy, DLP = ( 685.46 ) mGycm TECHNIQUE: Transaxial imaging was performed without the administration of intravenous contrast material. Multiplanar coronal and sagittal images were reformatted. Individualized dose optimization techniques were used for this CT. COMPARISON: No relevant priors. FINDINGS: CHEST Scarring and emphysematous changes in the upper lobes worse on the right side. Findings suggestive of linear scarring in the anterior aspect of the right lower lobe. There is no demonstrated pleural abnormality. There are calcifications of the coronary arteries. Sternal cerclage wires and vascular clips are present from a prior sternotomy and coronary artery bypass graft procedure (CABG). Normal mediastinum. Normal hilar regions. Normal unenhanced pulmonary arteries. Normal aorta arch and descending thoracic aorta. There are mild degenerative changes of the thoracic spine. Tiny nonobstructive intrarenal calculi. CT/Chest without Contrast IMPRESSION: No evidence of tracheal stenosis. Electronically Signed: Tenzin Persaud MD at 14:34 EDT ,
== END | disposition home or self-care (01) ==
PROVIDERS: PCP Family Medicine; Referring Provider Otolaryngology; Visit Provider Otolaryngology
DX: R13.13 Dysphagia, pharyngeal phase (principal); R06.1 Stridor
CPT/HCPCS: 71250

== ENCOUNTER 2023-12-29 20:46 | Inpatient (IN) | payer MEDICAID, SELFPAY ==
[2023-12-29] VITALS (22 sets, daily range): BP systolic 53–106; BP diastolic 29–73; PULSE 50–63; RESP 15–26; TEMP 35.3; O2SAT 16–99; BMI 37.9
--- NOTE | 2023-12-29 20:49 | EDS_ITS ---
HPI History of Present Illness Chief Complaint: Syncope [facility] Medical History Anxiety Depression Kidney stones Kidney disease GERD (gastroesophageal reflux disease) Asthma Congestive heart failure (CHF) CHF (congestive heart failure) TIA (transient ischemic attack) (~2001) History of stroke (~2001) Non-rheumatic tricuspid valve insufficiency DDD (degenerative disc disease) History of bicuspid aortic valve Essential hypertension History of DVT of lower extremity History of pulmonary embolus (PE) Colitis Cough Chest pain Thrush Normochromic normocytic anemia Borderline personality disorder Pulmonary hypertension Seizure disorder ARDS (adult respiratory distress syndrome) Acute respiratory failure with hypoxia Hematemesis Leiomyosarcoma Syringomyelia Migraine Exercise-induced asthma Arthritis Anxiety disorder Fibromyalgia AI (aortic insufficiency) Home Medications ?Medication ?Instructions ?Recorded ?Last Taken ?Type tizanidine 4 mg tablet 4 mg PO Q8H PRN Spasms 12/23/15 07/10/20 07:00 History medroxyprogesterone 150 mg/mL 150 mg IM .[id number] control 03/15/16 3 Weeks Ago History intramuscular syringe ~06/19/20 albuterol sulfate 90 mcg/actuation 1 puff inhalation Q4H PRN PRN Sob 10/02/16 01/05/17 History aerosol inhaler &/Or Wheezing albuterol sulfate 2.5 mg/3 mL 2.5 mg (3 mL) inhalation Q4H PRN 04/15/19 Unknown Rx (0.083 %) solution for nebulization #25 vials omeprazole 20 mg delayed 20 mg PO DAILY GERD 05/25/20 07/10/20 History release,disintegrating tablet fluoxetine 40 mg capsule 60 mg PO DAILY DEPRESSION 07/10/20 07/09/20 History oxaprozin 600 mg tablet 600 mg PO BID pain 07/10/20 07/10/20 History carvedilol 6.25 mg tablet 6.25 mg PO BID 11/06/23 Unknown History lisinopril 30 mg tablet 30 mg PO DAILY 11/06/23 Unknown History montelukast 10 mg tablet 10 mg PO DAILY 11/06/23 Unknown History ranolazine 500 mg tablet,extended 500 mg PO BID 11/06/23 Unknown History release,12 hr atorvastatin 20 mg tablet 20 mg PO DAILY 12/29/23 Unknown History pregabalin 300 mg capsule 300 mg PO Q12H 12/29/23 Unknown History Allergy/AdvReac Type Severity Reaction Status Date / Time amitriptyline Allergy Other Verified 12/29/23 20:55 amoxicillin (Amoxicillin) Allergy Rash Verified 12/29/23 20:55 erythromycin base Allergy Rash Verified 12/29/23 20:55 (Erythromycin Base) hydroxyzine Allergy Rash Verified 12/10/23 10:24 levofloxacin (From Levaquin) Allergy Swelling Verified 12/29/23 20:55 milnacipran Allergy Other Verified 12/29/23 20:55 milnacipran HCl (From Allergy Other Verified 12/29/23 20:55 Savella) celecoxib (From Celebrex) AdvReac Other Verified 12/29/23 20:55 diphenhydramine HCl (From AdvReac muscle Verified 12/29/23 20:55 Benadryl) spasms duloxetine HCl (From AdvReac Other Verified 12/29/23 20:55 Cymbalta) meloxicam AdvReac Swelling Verified 12/29/23 20:55 of legs/chest pain Family History Mother Cancer, Onset Age: 36 Breast CVA (cerebral vascular accident) CAD (coronary artery disease), Onset Age: 46 Myocardial infarction x2 Grandmother CAD (coronary artery disease) COPD (chronic obstructive pulmonary disease) Diabetes Surgical History History of right hip replacement History of adenoidectomy History of bilateral knee replacement History of left heart catheterization (LHC) (~01/31/17) History of atrial septal defect repair (~12/04/00) H/O aortic valve repair (~12/04/00) Social History Smoking Status: Light Smoker (<10/day) alcohol intake: current details: occasional substance use type: does not use EXAM Physical Exam Const Vital Signs: 12/29/23 20:47 12/29/23 20:53 12/29/23 21:16 Temperature 95.6 F L Temperature Source Temporal Pulse Rate 63 58 L Respiratory Rate 22 H 23 H Respiratory Effort Normal Non-Labored Respiratory Pattern Normal Blood Pressure 102/29 L Blood Pressure Mean 53 Pulse Ox 98 Oxygen Delivery Method Room Air 12/29/23 21:30 12/29/23 21:45 12/29/23 21:47 Temperature Temperature Source Pulse Rate 55 L 54 L 54 L Respiratory Rate 18 17 23 H Respiratory Effort Respiratory Pattern Blood Pressure 53/31 L 67/36 L Blood Pressure Mean 40 47 Pulse Ox 95 95 Oxygen Delivery Method Room Air 12/29/23 21:50 12/29/23 21:52 12/29/23 21:58 Temperature Temperature Source Pulse Rate 55 L 53 L 51 L Respiratory Rate 26 H 23 H 19 H Respiratory Effort Respiratory Pattern Blood Pressure 59/35 L 62/38 L 60/36 L Blood Pressure Mean 44 47 45 Pulse Ox 94 95 94 Oxygen Delivery Method Room Air 12/29/23 21:59 12/29/23 22:00 12/29/23 22:04 Temperature Temperature Source Pulse Rate 50 L 50 L 50 L Respiratory Rate 18 21 H 20 H Respiratory Effort Respiratory Pattern Blood Pressure 74/38 L 58/31 L 70/36 L Blood Pressure Mean 50 39 48 Pulse Ox 97 96 Oxygen Delivery Method Room Air Room Air Room Air 12/29/23 22:15 Temperature Temperature Source Pulse Rate 50 L Respiratory Rate 18 Respiratory Effort Respiratory Pattern Blood Pressure 75/36 L Blood Pressure Mean 47 Pulse Ox Oxygen Delivery Method Room Air MDM MDM MDM Narrative Medical decision making narrative: HISTORY OF PRESENT ILLNESS: 43-year-old female presents with concern for dizziness. She states she started feeling dizzy. She notes she walked from the basement she got more dizzy. She was lowered to the ground did not lose conscious or hit her head. She now she is having color vision changes. No chest pain. No shortness of breath. No leg swelling. No unilateral unilateral leg swelling no bleeding diathesis. No recent fever. No trouble urinating (dysuria, hematuria) REVIEW OF SYSTEMS: Pertinent positives: Dizziness Pertinent negatives: Chest pain, leg swelling PHYSICAL EXAM: Nursing triage notes reviewed, Vital signs reviewed Constitutional: please see mdm HENT: MMM Eyes: Pupils equal round and reactive to light, Extraocular muscles intact, visual acuity 20/30 bilaterally Neck: No stridor, no JVD, full neck ROM Lungs: Clear to auscultation, No wheezing or rales. No increased work of breathing, no conversational dyspnea, no accessory muscle use, no nasal flaring. No respiratory distress noted Heart: Regular rate and rhythm, No murmurs, No rubs and No gallops, 2+ distal pulses (radial, femoral, posterior tibial) in all extremities Abdomen: Soft, there is no tenderness, rigidity, rebound or guarding, no obvious peritoneal signs, no palpable pulsatile abdominal masses, no auscultated abdominal bruit : No CVAT Extremities: No edema Neuro: No focal neurological deficits, cranial nerves II through XII intact, 5/5 strength in all extremities. Intact sensation to light touch in all extremities, 2+ reflexes bilateral patella tendons. Normal gait. No ataxia. Skin: No rash or lesions noted MEDICAL DECISION MAKING: Chief Complaint: dizziness External records reviewed: Medications reviewed: No anticoagulation noted. Imaging reviewed: Stress echocardiogram from 2017 shows ejection fraction 50% with mild global LV dysfunction. Factors affecting care: CHF, hypertension, history of DVT/PE, colitis, pulmonary hypertension, exercises asthma, for myalgia, GERD, depression, anxiety Social determinants of health: none History obtained from others: none Consults: none MDM Narrative: Patient is initially tachypneic, and saw blood pressures saturating well on room air. No focal neurologic deficit. I considered the following differential diagnosis: Dehydration, anemia, arrhythmia, ACS, heart failure, pneumonia, PE ALL IMAGES (IF OBTAINED) HAVE BEEN PERSONALLY REVIEWED AND INTERPRETED BY MYSELF. Repeat EKG shows sinus bradycardia rate of 48, prolonged QT interval, No LA interval lengthening, no complete heart block, no STEMI BMP with hyponatremia, borderline hyperkalemia, noted metabolic acidosis likely secondary to uremia, ISA High-sensitivity troponin is negative, no evidence of myocardial ischemia BNP within the limits suggestive of no heart failure CBC without leukocytosis suggestive of inflammation or sepsis, noted anemia, no thrombocytopenia I initially ordered a CT of the chest however given the patient's poor renal function and GFR of only 19 she is not a candidate for CT at this time. Given hypotension and acute kidney injury I suspect the patient's case related to dehydration with carvedilol. During the patient's ED course she became more hypotensive, bradycardic with blood pressure 75/36. She was given the rest of her 30 cc/kg bolus (3 L normal saline) in the form normal saline. Blood pressure was reassessed. It improved. Blood pressure was in the low 100 is upper 90s with maps greater than 65. Medication requested at this time. Given hypotension and ISA patient will need admission. Discussed with Dr. Chatterjee. The patient and/or family, caregivers express understanding. The patient and/or family, caregivers agrees with the plan. Shared decision making: I will have a discussion with the patient and or visitors regarding risk/benefits of further testing or admission. They will be made aware of of the risk/benefits inherent in this decision they will be given the opportunity to voice understanding. Total critical care time today provided was at least 0 minutes. This excludes separately billable procedures. Critical care time (if documented) is secondary to the patient having high probability of clinically significant/life threatening deterioration in the patient's condition which required my urgent intervention. Impression: 1. Dizziness 2. Near syncope 3. Dehydration 4. Hypotension 5. Acute kidney injury Dispo: Admit This note was generated with [employer] dictation software. It may contain incorrect words, spelling, and punctuation that were not noted in review of the chart prior to signing. Lab Data Labs: Laboratory Results - last 24 hr 12/29/23 20:58 WBC 10.4 RBC 3.78 L Hgb 10.5 L Hct 33.3 L MCV 88.1 MCH 27.8 MCHC 31.5 L RDW Std Deviation 49.6 H RDW Coeff of Beto 15.6 H Plt Count 373 MPV 12.0 Sodium 131 L Potassium 5.0 Chloride 102 Carbon Dioxide 19.0 L Anion Gap 10 BUN 42 H Creatinine 2.82 H Estim Creat Clear Calc 27.97 Est GFR (MDRD) Af Amer 23 L Est GFR (MDRD) Non-Af 19 L BUN/Creatinine Ratio 14.9 Glucose 110 H Calcium 8.6 Troponin I High Sens 4 B-Natriuretic Peptide 10.2 Radiography Diagnostic Testing: Clinical Impression(s) from Imaging Studies Chest X-Ray 12/29/23 21:50 IMPRESSION: Ill-defined pulmonary opacities bilaterally most conspicuous in the basilar right lung, likely scarring or atelectasis correlating with the prior examination. No definite focal pneumonia. Electronically Signed: Bar Escalera DO at 22:18 EDT , Discharge Plan Triage Chief Complaint: Syncope ED Provider: Pieter Nails Dx/Rx/DC Orders Prescriptions: No Action montelukast 10 mg tablet 10 mg PO DAILY lisinopril 30 mg tablet 30 mg PO DAILY carvedilol 6.25 mg tablet 6.25 mg PO BID Rx Instructions: must administer with a meal/food ranolazine 500 mg tablet extended release 12 hr 500 mg PO BID tizanidine 4 MG tablet 4 mg PO Q8H PRN (Reason: Spasms) Patient Comments: pain/muscle relaxer medroxyprogesterone 150 MG/ML syringe 150 mg IM .[id number] Patient Comments: CONTROL albuterol sulfate 1 INHALER inhaler 1 puff INHALATION Q4H PRN PRN (Reason: Sob &/Or Wheezing) Patient Comments: BREATHING albuterol sulfate 2.5 MG/3 ML solution for nebulization 2.5 mg INHALATION Q4H PRN Qty: 25 0RF Rx Instructions: Use q4 hours and PRN for wheezing omeprazole 20 MG tablet,disintegrat, delay rel 20 mg PO DAILY fluoxetine 40 MG capsule 60 mg PO DAILY oxaprozin 600 MG tablet 600 mg PO BID atorvastatin 20 mg tablet 20 mg PO DAILY Patient Comments: [NO ORIGINAL SIG] pregabalin 300 mg capsule 300 mg PO Q12H Patient Comments: [NO ORIGINAL SIG] Primary Care Provider: Bill Dai Referrals: Bill Dai MD [Primary Care Provider] - Print Language: Pakistani
--- NOTE | 2023-12-29 21:00 | EKG12_ITS ---
Test Reason : CP Blood Pressure : / mmHG Vent. Rate : 049 BPM Atrial Rate : 049 BPM P-R Int : 160 ms QRS Dur : 096 ms QT Int : 538 ms P-R-T Axes : 073 047 079 degrees QTc Int : 485 ms Sinus bradycardia Prolonged QT Abnormal ECG When compared with ECG of 29-DEC-2023 20:59, MANUAL COMPARISON REQUIRED, DATA IS UNCONFIRMED Confirmed by Arcadio Morales ([id number]), city editor JUN BLOOD ([id number]) on 01/01/2024 9:15:00 AM Referred By: Confirmed By:Arcadio Morales
[2023-12-29] MEDS: 0.9% Normal Saline (1000mL) 1,000 ML 1000 ML IV (21:13)
[2023-12-29 21:24] LABS: Hematocrit 33.3 % (37-47); Hemoglobin 10.5 g/dL (12.0-15.0); Mean Corp Hgb Conc 31.5 g/dL (32-36); Mean Corpuscular Hgb 27.8 pg (27.0-32.0); Mean Corpuscular Volume 88.1 fL (81-99); Platelet Count 373 K/mm3 (150-450); RBC Distribution Width CV 15.6 % (11.6-14.6); RBC Distribution Width SD 49.6 fl (35.1-43.9); Red Blood Count 3.78 M/mm3 (4.2-5.4); White Blood Count 10.4 K/mm3 (4.4-11.0)
[2023-12-29 21:43] LABS: Anion Gap 10 (5-15); BNP,B-Type NATRIURETIC PEPTIDE 10.2 pg/mL (0-100); BUN 42 mg/dL (7-18); BUN/Creat Ratio 14.9 RATIO (10-20); Calcium,Total 8.6 mg/dL (8.5-10.1); Chloride 102 mmol/L (98-107); Creatinine, Serum 2.82 mg/dL (0.55-1.02); EST Glomerular Filtration Rate 19 mL/min (>60); Est Glom Filt Rate - Afr Amer 23 mL/min (>60); Estimated Creatinine Clearance 27.97 ml/min; Glucose 110 mg/dL (74-106); Sodium Level 131 mmol/L (136-145); Troponin-I HS 4 pg/mL (3.0-54.0)
[2023-12-29] MEDS: 0.9% Normal Saline (1000mL) 1,000 ML 999 ML IV ×2 (21:50→22:47)
--- NOTE | 2023-12-29 21:50 | RAD_ITS ---
EXAM: XR CHEST, 1 VIEW CLINICAL INDICATION: dizziness TECHNIQUE: Frontal view of the chest. COMPARISON: CT chest, 09/12/2023 FINDINGS: LUNGS AND PLEURAL SPACES: Ill-defined pulmonary opacities bilaterally most conspicuous in the basilar right lung, likely scarring or atelectasis correlating with the prior examination. No pneumothorax. No effusion. HEART: No significant abnormality. Cardiac silhouette not enlarged. MEDIASTINUM: Central airways and mediastinal contour are unremarkable. BONES/JOINTS: Median sternotomy. No acute fracture. SOFT TISSUES: No significant abnormality. RAD/Chest 1 View (Portable) IMPRESSION: Ill-defined pulmonary opacities bilaterally most conspicuous in the basilar right lung, likely scarring or atelectasis correlating with the prior examination. No definite focal pneumonia. Electronically Signed: Bar Escalera DO at 22:18 EDT ,
--- NOTE | 2023-12-29 22:34 | EKG12_ITS ---
Test Reason : DYSRHYTHMIA Blood Pressure : / mmHG Vent. Rate : 057 BPM Atrial Rate : 057 BPM P-R Int : 160 ms QRS Dur : 090 ms QT Int : 462 ms P-R-T Axes : 050 038 064 degrees QTc Int : 449 ms Sinus bradycardia Otherwise normal ECG When compared with ECG of 21-SEP-2020 17:41, T wave inversion no longer evident in Anterior leads Confirmed by Arcadio Morales ([id number]), editor sound JUN BLOOD ([id number]) on 01/01/2024 9:18:03 AM Referred By: AMBER Confirmed By:Arcadio Morales
[2023-12-29] MEDS: 0.9% Normal Saline (1000mL) 1,000 ML 250 ML IV (23:24)
[2023-12-29 23:44] LABS: Lactic Acid 0.6 mmol/L (0.4-1.9); Troponin-I HS 6 pg/mL (3.0-54.0)
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
[2023-12-30] VITALS (7 sets, daily range): BP systolic 111–148; BP diastolic 64–93; PULSE 52–63; RESP 16–22; TEMP 35.5–37.1; O2SAT 96–100; BMI 38.2
[2023-12-30] MEDS: 0.9% Normal Saline (1000mL) 1,000 ML 125 ML IV ×2 (01:05→06:31)
[2023-12-30 06:53] LABS: Anion Gap 5 (5-15); BUN 38 mg/dL (7-18); BUN/Creat Ratio 18.2 RATIO (10-20); Calcium,Total 8.1 mg/dL (8.5-10.1); Chloride 113 mmol/L (98-107); Creatinine, Serum 2.09 mg/dL (0.55-1.02); EST Glomerular Filtration Rate 27 mL/min (>60); Est Glom Filt Rate - Afr Amer 33 mL/min (>60); Estimated Creatinine Clearance 37.86 ml/min; Glucose 91 mg/dL (74-106); Potassium 4.3 mmol/L (3.5-5.1); Sodium Level 137 mmol/L (136-145)
[2023-12-30 08:46] LABS: Vitamin B12 392 pg/mL (211-911)
[2023-12-30 08:54] LABS: Ferritin 10 ng/mL (8-252); Iron 27 ug/dL (50-170); Iron Binding Capacity,Total 453 ug/dL (250-450)
[2023-12-30] MEDS: Pantoprazole Sodium 20 MG Tablet PO (09:44)
[2023-12-30] MEDS: FLUoxetine 20 MG Capsule 60 MG PO (09:44)
[2023-12-30] MEDS: Ranolazine 500 MG Tablet PO ×2 (09:50→22:13)
[2023-12-30] MEDS: Pregabalin 75 MG Capsule 300 MG PO ×2 (09:50→22:13)
[2023-12-30] MEDS: Montelukast 10 MG Tablet PO (09:51)
--- NOTE | 2023-12-30 10:56 | PN.HOSP_ITS ---
Reason for Visit Reason for Visit: Diagnoses Hypotension, unspecified (12/30/23) Acute kidney failure, unspecified (12/30/23) Subjective Subjective Saw patient at bedside this morning. Patient was somewhat fatigued appearing but otherwise sitting up fairly comfortably in bed, in no acute distress. Patient states that her urine output has picked up considerably today after receiving significant IV fluids yesterday. She does report a mild low back pain currently, which occurs for her on a fairly regular basis. She otherwise still feels off from her baseline but is improved from admission. No other new concerns today. Objective Data Objective Data Vital Signs: Vital Signs Temp Pulse Resp BP Pulse Ox O2 Del Method 98.3 F 63 16 137/93 H 97 Room Air 12/30/23 08:32 12/30/23 08:32 12/30/23 08:32 12/30/23 08:32 12/30/23 08:32 12/30/23 08:57 Oxygen Delivery Method Room Air Weight: 97.8 kg Body Mass Index (BMI) 38.2 Intake & Output: Intake and Output for Last 24 Hours 12/28/23 12/29/23 12/30/23 23:59 23:59 23:59 Intake Total 2632.7 / 2632.7 1679.17 / 1679.17 Balance 2632.7 / 2632.7 1679.17 / 1679.17 Lab / Micro Data 12/29/23 20:58 12/30/23 05:59 Labs: Laboratory Results - last 24 hr 12/29/23 20:58: WBC 10.4, RBC 3.78 L, Hgb 10.5 L, Hct 33.3 L, MCV 88.1, MCH 27.8, MCHC 31.5 L, RDW Std Deviation 49.6 H, RDW Coeff of Beto 15.6 H, Plt Count 373, MPV 12.0, Sodium 131 L, Potassium 5.0, Chloride 102, Carbon Dioxide 19.0 L, Anion Gap 10, BUN 42 H, Creatinine 2.82 H, Estim Creat Clear Calc 27.97, Est GFR (MDRD) Af Amer 23 L, Est GFR (MDRD) Non-Af 19 L, BUN/Creatinine Ratio 14.9, G lucose 110 H, Calcium 8.6, Troponin I High Sens 4, B-Natriuretic Peptide 10.2 12/29/23 23:05: Lactic Acid 0.6, Troponin I High Sens 6 12/30/23 05:59: Sodium 137, Potassium 4.3, Chloride 113 H, Carbon Dioxide 19.0 L , Anion Gap 5, BUN 38 H, Creatinine 2.09 H, Estim Creat Clear Calc 37.86, Est GFR (MDRD) Af Amer 33 L, Est GFR (MDRD) Non-Af 27 L, BUN/Creatinine Ratio 18.2, Glucose 91, Calcium 8.1 L 12/30/23 06:24: Iron 27 L, TIBC 453 H, Iron Saturation 6.0 L, Ferritin 10, Vitamin B12 392, Folate 8.70 Radiography Diagnostic Testing: Radiology Impression Chest X-Ray 12/29/23 21:50 IMPRESSION: Ill-defined pulmonary opacities bilaterally most conspicuous in the basilar right lung, likely scarring or atelectasis correlating with the prior examination. No definite focal pneumonia. Electronically Signed: Bar Escalera DO at 22:18 EDT , Physical Exam Const alert, oriented x3 and no apparent distress Constitutional Narrative: Middle-age female, obese, mildly fatigued appearing, otherwise sitting up comfortably in bed, conversing normally, in no acute distress. General Appearance: cooperative and comfortable HEENT normocephalic, head/scalp atraumatic, hearing grossly normal bilaterally, nasal mucous membranes and turbinates normal and moist oral mucous membranes Eyes PERRL, EOMs intact bilaterally and conjunctivae normal Neck full ROM Chest inspection of chest normal Resp normal respiratory effort, normal air movement, no use of accessory muscles and clear to auscultation bilaterally Cardio regular rate, regular rhythm, no murmurs and peripheral pulses 2+ throughout GI normal to inspection, nondistended, normoactive bowel sounds, soft to palpation, non-tender and non-distended Back/Spine normal ROM Extremity normal to inspection, full ROM and no pedal edema Skin no rashes or lesions noted Neuro no focal motor deficits and no sensory deficits noted Speech: speech normal Psych mental status grossly normal Assessment & Plan Assessment/Plan (1) Pre-syncope: (2) Hypotension: (3) ISA (acute kidney injury): PLAN: Plan Patient is a 43-year-old female who presented to [facility] ED on 12/29/2023 with presyncopal symptoms. 1. Presyncopal symptoms with hypotension, improved ? Suspected secondary to recent poor p.o. intake with home BP meds contributing. Cannot rule out some degree of overmedication for multiple pain/psychiatric medications as noted below. Presented with significant presyncopal symptoms, was hypotensive to 80s over 60s in the ED. Blood pressure improved with 3 L of IV fluids in the ED. Blood pressure normotensive on hospital day 2 off home meds and patient denying any orthostatic symptoms. Continue to hold home Coreg, lisinopril and ranolazine. Management of pain/psych medications as noted below. 2. ISA, improving ? Creatinine 2.82 on admit. Baseline unclear, last creatinine values 0.8-1.0 back in 2020. Creatinine improved to 2.09 on hospital day 2 after IV fluid resuscitation. Holding on further IV fluid resuscitation for now, encouraged p.o. intake. Patient reports good urine output. Continue to monitor daily BMP and urine output. 3. Anxiety/depression/fibromyalgia/chronic back pain ? Home regimen of fluoxetine, pregabalin, oxaprozin and tizanidine as needed. Restarted home fluoxetine, pregabalin and tizanidine on admission. Holding oxaprozin for now, restart as needed. 4. History of CHF/hypertension/hyperlipidemia ? Stable, not in acute heart failure exacerbation. No clinical signs of volume overload after heavy IV fluid resuscitation as noted above. Holding home BP meds as above. Continue home statin. Chronic medical conditions: ? Obesity: BMI 38 on admit. Complicates hospital course, care and prognosis. ? Chronic anemia: Hemoglobin 10.5 on admit, baseline appears to be around 10-11. Follow-up a.m. CBC. ? GERD: Stable. Continue home PPI. ? Asthma: Stable on room air, not in acute exacerbation. Continue home montelukast and albuterol as needed. DVT prophylaxis: Heparin subcu CODE STATUS: Full code, verified Expected disposition: Home, 1 to 2 days Total clinical time spent by myself addressing the patient's medical issues, reviewing all the data, and collaborating with patient's care team: 35 minutes. Charges/Coding Visit Charges Inpatient E&M: 90918 Subs Hosp L2
--- NOTE | 2023-12-30 11:10 | CASEMGMT ---
JAZ DIGGS Face to Face with patient for initial transition planning/care coordination assessment. RN CM introduced self and role at [facility]. Patient lying in bed, alert and oriented. Patient willing to participate in assessment and is able to answer all questions appropriately. Care providers, pharmacy, and demographics verified. Lace: 8 Strata: 2 PCP: Malaika Specialists: Skip, leaf binner; Isabel Robertson, indirect sales representative; Preferred Pharmacy: [facility]; [facility] at discharge. Insurance: [employer] Prescription Benefit: yes Living Will/HPOA: none LNOK: parents Living Arrangements: Patient lives with parents in a 2 story home. Patient states she is independent and able to ambulate stairs. Transportation: parents DME/HHC: Patient has shower chair, raised toilet, cane, crutches, walker, pulse ox, oxygen at 2 lpm at through [employer]. No previous HHC or SNF Patient wishes to discharge home, denies need for home health at this time. Patient states she has no further needs or concerns at this time. CM to follow for discharge planning needs that may arise. Disposition Plan: Patient to discharge home with family support and follow-up plans in place. Rolanda ACEVEDO, RN, CM
[2023-12-30] MEDS: Ondansetron 4 MG/2 ML Vial IV ×2 (11:42→22:14)
[2023-12-30] MEDS: 0.9% Saline Lock 10 ML Syringe IV (11:43)
[2023-12-30] MEDS: Acetaminophen 325 MG Tablet 650 MG PO ×2 (15:23→22:13)
[2023-12-30] MEDS: tiZANidine HCl 2 MG Tablet 4 MG PO (16:02)
[2023-12-30] MEDS: Atorvastatin Calcium 20 MG Tablet PO (22:13)
--- NOTE | 2023-12-30 22:14 | PCM.HOSP.N ---
Hospitalist Note Patient with ongoing issues with nausea, especially after intake attempts. Already on zofran but does have prolonged QTC. Will administer x 1 scopalamine patch and continue to monitor.
[2023-12-30] MEDS: Scopolamine 1mg/72hr Patch 1 PATCH TD (22:25)
[2023-12-30] MEDS: Heparin Injection (Vial) 5,000 UNIT/ML VIAL 5000 UNIT SC (22:26)
[2023-12-31] MEDS: tiZANidine HCl 2 MG Tablet 4 MG PO ×3 (00:44→20:09)
[2023-12-31 05:56] LABS: Hematocrit 30.7 % (37-47); Hemoglobin 9.9 g/dL (12.0-15.0); Mean Corp Hgb Conc 32.2 g/dL (32-36); Mean Platelet Vol. 11.6 fl (6.2-12.0); Platelet Count 262 K/mm3 (150-450); RBC Distribution Width CV 15.8 % (11.6-14.6); RBC Distribution Width SD 50.1 fl (35.1-43.9); Red Blood Count 3.53 M/mm3 (4.2-5.4); White Blood Count 5.9 K/mm3 (4.4-11.0)
[2023-12-31 06:00] VITALS: BP 156/84; PULSE 55; RESP 18; TEMP 36.6; O2SAT 100
[2023-12-31 06:39] LABS: Anion Gap 9 (5-15); BUN 23 mg/dL (7-18); BUN/Creat Ratio 18.4 RATIO (10-20); Calcium,Total 9.1 mg/dL (8.5-10.1); Chloride 111 mmol/L (98-107); Creatinine, Serum 1.25 mg/dL (0.55-1.02); EST Glomerular Filtration Rate 49 mL/min (>60); Est Glom Filt Rate - Afr Amer 60 mL/min (>60); Estimated Creatinine Clearance 63.31 ml/min; Glucose 89 mg/dL (74-106); Potassium 4.6 mmol/L (3.5-5.1); Sodium Level 138 mmol/L (136-145)
[2023-12-31 10:08] VITALS: BP 153/96; PULSE 59; RESP 16; TEMP 36.3; O2SAT 98
[2023-12-31] MEDS: Heparin Injection (Vial) 5,000 UNIT/ML VIAL 5000 UNIT SC ×2 (10:14→20:10)
[2023-12-31] MEDS: Pantoprazole Sodium 20 MG Tablet PO (10:16)
[2023-12-31] MEDS: FLUoxetine 20 MG Capsule 60 MG PO (10:17)
[2023-12-31] MEDS: Ranolazine 500 MG Tablet PO ×2 (10:17→20:10)
[2023-12-31] MEDS: Montelukast 10 MG Tablet PO (10:17)
[2023-12-31] MEDS: 0.9% Saline Lock 10 ML Syringe IV ×2 (10:18→10:41)
[2023-12-31] MEDS: Pregabalin 75 MG Capsule 300 MG PO ×2 (10:40→20:10)
[2023-12-31] MEDS: Sodium Ferric Gluconat 250 MG in 0.9% Normal Saline 250 ML 135 MG IV (10:41)
--- NOTE | 2023-12-31 12:32 | PCM.PN.HOSP ---
Reason for Visit Reason for Visit: Diagnoses Hypotension, unspecified (12/30/23) Acute kidney failure, unspecified (12/30/23) Syncope and collapse (12/30/23) Subjective Subjective Overnight patient had further nausea and had scopolamine patch placed. Saw patient at bedside this morning. She was sitting up fairly comfortably in bed, in no acute distress. She stated the scopolamine patch was helpful for her nausea and she felt improved today compared to previous days. She continued to report good urine output. Denied any lightheadedness or dizziness with ambulation. No other new concerns today. Objective Data Objective Data Vital Signs: Vital Signs Temp Pulse Resp BP Pulse Ox O2 Del Method 97.3 F L 59 L 16 153/96 H 98 Room Air 12/31/23 10:08 12/31/23 10:08 12/31/23 10:08 12/31/23 10:08 12/31/23 10:08 12/31/23 10:09 Oxygen Delivery Method Room Air Weight: 97.8 kg Body Mass Index (BMI) 38.2 Intake & Output: Intake and Output for Last 24 Hours 12/29/23 12/30/23 12/31/23 23:59 23:59 23:59 Intake Total 2632.7 / 2632.7 2949.17 / 3349.17 1200 / 1200 Balance 2632.7 / 2632.7 2949.17 / 3349.17 1200 / 1200 Lab / Micro Data 12/31/23 05:40 12/31/23 05:40 Labs: Laboratory Results - last 24 hr 12/31/23 05:40: WBC 5.9, RBC 3.53 L, Hgb 9.9 L, Hct 30.7 L, MCV 87.0, MCH 28.0, MCHC 32.2, RDW Std Deviation 50.1 H, RDW Coeff of Beto 15.8 H, Plt Count 262, MPV 11.6, Sodium 138, Potassium 4.6, Chloride 111 H, Carbon Dioxide 18.0 L, Anion Gap 9, BUN 23 H, Creatinine 1.25 H, Estim Creat Clear Calc 63.31, Est GFR (MDRD) Af Amer 60, Est GFR (MDRD) Non-Af 49 L, BUN/Creatinine Ratio 18.4, Glucose 89, Calcium 9.1 Physical Exam Const alert, oriented x3 and no apparent distress Constitutional Narrative: Middle-age female, obese, mildly fatigued appearing but improving, otherwise sitting up comfortably in bed, conversing normally, in no acute distress. General Appearance: cooperative and comfortable HEENT normocephalic, head/scalp atraumatic, hearing grossly normal bilaterally, nasal mucous membranes and turbinates normal and moist oral mucous membranes Eyes PERRL, EOMs intact bilaterally and conjunctivae normal Neck full ROM Chest inspection of chest normal Resp normal respiratory effort, normal air movement, no use of accessory muscles and clear to auscultation bilaterally Cardio regular rate, regular rhythm, no murmurs and peripheral pulses 2+ throughout GI normal to inspection, nondistended, normoactive bowel sounds, soft to palpation, non-tender and non-distended Back/Spine normal ROM Extremity normal to inspection, full ROM and no pedal edema Skin no rashes or lesions noted Neuro no focal motor deficits and no sensory deficits noted Speech: speech normal Psych mental status grossly normal Assessment & Plan Assessment/Plan (1) Pre-syncope: (2) Hypotension: (3) ISA (acute kidney injury): PLAN: Plan Patient is a 43-year-old female who presented to [facility] ED on 12/29/2023 with presyncopal symptoms. 1. Presyncopal symptoms with hypotension, improved ? Suspected secondary to recent poor p.o. intake with home BP meds contributing. Cannot rule out some degree of overmedication for multiple pain/psychiatric medications as noted below. Presented with significant presyncopal symptoms, was hypotensive to 80s over 60s in the ED. Blood pressure improved with 3 L of IV fluids in the ED. Blood pressure normotensive on hospital day 2 off home meds and patient denying any orthostatic symptoms. Blood pressure back to hypertensive to 150s over 90s on 12/30, but heart rate notably in mid 50s consistently. Will start amlodipine 5 mg daily now, monitor BP closely. If patient tolerates this well, would consider discharging on only amlodipine for blood pressure control. 2. ISA, improving ? Creatinine 2.82 on admit. Baseline unclear, last creatinine values 0.8-1.0 back in 2020. Creatinine much improved with IV fluid resuscitation, most recent creatinine 1.25 on 12/30. Patient reports good urine output. No need to monitor further BMPs at this time. 3. Anxiety/depression/fibromyalgia/chronic back pain ? Home regimen of fluoxetine, pregabalin, oxaprozin and tizanidine as needed. Restarted home fluoxetine, pregabalin and tizanidine on admission. Holding oxaprozin for now, restart as needed. 4. History of CHF/hypertension/hyperlipidemia ? Stable, not in acute heart failure exacerbation. No clinical signs of volume overload after heavy IV fluid resuscitation as noted above. Holding home BP meds as above. Continue home statin. 5. Chronic iron deficiency anemia ? Hemoglobin 10.5 on admit, slightly decreased to 9.9 on hospital day 2. Baseline appears to be around 10-11. Iron studies showed fairly severe iron deficiency anemia with ferritin of 10. Will give doses of IV Venofer 200 mg on 12/30 and 12/31 and recommend starting p.o. supplement on discharge. Chronic medical conditions: ? Obesity: BMI 38 on admit. Complicates hospital course, care and prognosis. ? GERD: Stable. Continue home PPI. ? Asthma: Stable on room air, not in acute exacerbation. Continue home montelukast and albuterol as needed. DVT prophylaxis: Heparin subcu CODE STATUS: Full code, verified Expected disposition: Home, 1 to 2 days Total clinical time spent by myself addressing the patient's medical issues, reviewing all the data, and collaborating with patient's care team: 35 minutes. Charges/Coding Visit Charges Inpatient E&M: 65235 Subs Hosp L2
[2023-12-31 16:00] VITALS: BP 142/92; PULSE 56; RESP 16; TEMP 36.9; O2SAT 97
[2023-12-31] MEDS: amLODIPine 5 MG Tablet PO (16:47)
[2023-12-31] MEDS: Atorvastatin Calcium 20 MG Tablet PO (20:09)
[2023-12-31 21:00] VITALS: BP 170/98; PULSE 63; RESP 17; TEMP 37; O2SAT 94
[2023-12-31 22:20] VITALS: BP 124/80
[2024-01-01 03:00] VITALS: BP 124/85; PULSE 66; RESP 16; TEMP 36.6; O2SAT 92
[2024-01-01] MEDS: Sodium Ferric Gluconat 250 MG in 0.9% Normal Saline 250 ML 135 MG IV (07:57)
[2024-01-01] MEDS: tiZANidine HCl 2 MG Tablet 4 MG PO (08:07)
[2024-01-01 09:00] VITALS: BP 128/89; PULSE 66; RESP 18; TEMP 36.8; O2SAT 95
[2024-01-01] MEDS: Montelukast 10 MG Tablet PO (10:18)
[2024-01-01] MEDS: Heparin Injection (Vial) 5,000 UNIT/ML VIAL 5000 UNIT SC (10:18)
[2024-01-01] MEDS: Ranolazine 500 MG Tablet PO (10:18)
[2024-01-01] MEDS: FLUoxetine 20 MG Capsule 60 MG PO (10:18)
[2024-01-01] MEDS: Pregabalin 75 MG Capsule 300 MG PO (10:19)
[2024-01-01] MEDS: amLODIPine 5 MG Tablet PO (10:19)
[2024-01-01] MEDS: Pantoprazole Sodium 20 MG Tablet PO (10:19)
--- NOTE | 2024-01-01 10:21 | PCM.DC ---
Discharge Instructions Diet Discharge Diet: Low fat / Low cholesterol and 1600 Calorie Control Diet Activity Discharge Activity: Return to Normal Activity Dressing / Incision Call your doctor if you observe: Fever of 101 or Higher, Shortness of breath, Dizziness, Fainting spells, Swelling in the ankles, Chest pain and Increased palpitations (irregular heartbeat) Follow Up Care Test Results: Test results from this visit will be discussed in further detail at your follow-up appointment, if applicable. Discharge Plan Admission Admit Date/Time: 12/30/23 00:01 Attending Provider: Shaka Faith Primary Care Provider: Bill Dai Consulting Providers: Satya Chatterjee; Paras Sotelo Instructions Additional Instructions / Restrictions: recommend decreasing Coreg to 3.125 mg PO BID and Lisinopril to 20 mg daily. F/u with you PCP to recheck blood pressure prior to restarting your home medications and adjusting dosage. Discharge Orders/Prescriptions Prescriptions: New ferrous gluconate 324 mg (38 mg iron) tablet 324 mg PO DAILY Qty: 30 0RF Continued montelukast 10 mg tablet 10 mg PO DAILY ranolazine 500 mg tablet extended release 12 hr 500 mg PO BID tizanidine 4 MG tablet 4 mg PO Q8H PRN (Reason: Spasms) Patient Comments: pain/muscle relaxer medroxyprogesterone 150 MG/ML syringe 150 mg IM .[id number] Patient Comments: CONTROL albuterol sulfate 1 INHALER inhaler 1 puff INHALATION Q4H PRN PRN (Reason: Sob &/Or Wheezing) Patient Comments: BREATHING albuterol sulfate 2.5 MG/3 ML solution for nebulization 2.5 mg INHALATION Q4H PRN Qty: 25 0RF Rx Instructions: Use q4 hours and PRN for wheezing omeprazole 20 MG tablet,disintegrat, delay rel 20 mg PO DAILY fluoxetine 40 MG capsule 60 mg PO DAILY oxaprozin 600 MG tablet 600 mg PO BID atorvastatin 20 mg tablet 20 mg PO DAILY Patient Comments: [NO ORIGINAL SIG] pregabalin 300 mg capsule 300 mg PO Q12H Patient Comments: [NO ORIGINAL SIG] Held lisinopril 30 mg tablet 30 mg PO DAILY Hold Instructions: Resume on 01/05/24. carvedilol 6.25 mg tablet 6.25 mg PO BID Hold Instructions: Resume on 01/04/24. Rx Instructions: must administer with a meal/food Referrals / Follow Up: Bill Dai MD [Primary Care Provider] - Within 1 Week Disposition Disposition (needs filled in before D/C Order can be placed): Home, Self Care
[2024-01-01 10:50] VITALS: BP 128/89; PULSE 66; RESP 18; TEMP 36.8; O2SAT 95
--- NOTE | 2024-01-01 11:08 | CASEMGMT ---
Patient has order for discharge. RN CM in to discuss needs at discharge. Patient denies needs or help at discharge. Patient had no further questions or concerns.
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
--- NOTE | 2024-01-01 15:22 | PHA.DC.MC.R ---
Pharmacy [facility] has performed discharge medication reconciliation and counseling for this patient. 1. FERROUS GLUCONATE 324MG PO DAILY 2. HOLD CARVEDILOL AND LISINOPRIL The patient's discharge medication list was reviewed for discrepancies and discrepancies were resolved. The patient was counseled on the following discharge medications and changes in medications for homegoing were reviewed. The Reason for Use, instructions for use, and potential side effects were reviewed for all new medications. The patient's questions regarding all of their medications were answered. The patient was able to verbally demonstrate an understanding of their discharge medications. Medications at Discharge Home Medications tizanidine 4 mg tablet 4 mg PO Q8H PRN Spasms 12/23/15 medroxyprogesterone 150 mg/mL intramuscular syringe 150 mg IM .[id number] control 03/15/16 albuterol sulfate 90 mcg/actuation aerosol inhaler 1 puff inhalation Q4H PRN PRN Sob &/Or Wheezing 10/02/16 albuterol sulfate 2.5 mg/3 mL (0.083 %) solution for nebulization 2.5 mg (3 mL) inhalation Q4H PRN breathing #25 vials 04/15/19 omeprazole 20 mg delayed release,disintegrating tablet 20 mg PO DAILY GERD 05/25/20 fluoxetine 40 mg capsule 60 mg PO DAILY DEPRESSION 07/10/20 oxaprozin 600 mg tablet 600 mg PO BID pain 07/10/20 carvedilol 6.25 mg tablet 6.25 mg PO BID blood pressure 11/06/23 lisinopril 30 mg tablet 30 mg PO DAILY blood pressure 11/06/23 montelukast 10 mg tablet 10 mg PO DAILY allergies 11/06/23 ranolazine 500 mg tablet,extended release,12 hr 500 mg PO BID chest pain 11/06/23 atorvastatin 20 mg tablet 20 mg PO DAILY cholesterol 12/29/23 pregabalin 300 mg capsule 300 mg PO Q12H nerve pain 12/29/23 ferrous gluconate 324 mg (38 mg iron) tablet 324 mg PO DAILY #30 tabs 01/01/24
== END 2024-01-01 12:38 | disposition home or self-care (01) | DRG 207 ==
LOC: ED 21:13 → PCU 12-30 03:27
PROVIDERS: Hospitalist; Admitting Provider Family Medicine; Emergency Provider Emergency Medicine; PCP Family Medicine; Visit Provider Family Medicine
DX: I95.9 Hypotension, unspecified (principal); N17.9 Acute kidney failure, unspecified; D50.9 Iron deficiency anemia, unspecified; E66.9 Obesity, unspecified; F17.200 Nicotine dependence, unspecified, uncomplicated; E78.5 Hyperlipidemia, unspecified; F32.A Depression, unspecified; I10 Essential (primary) hypertension; J45.909 Unspecified asthma, uncomplicated; F60.3 Borderline personality disorder; E86.0 Dehydration; M79.7 Fibromyalgia; F41.9 Anxiety disorder, unspecified; K21.9 Gastro-esophageal reflux disease without esophagitis; M54.50 Low back pain, unspecified; R55 Syncope and collapse; Z82.5 Family history of asthma and other chronic lower respiratory diseases; Z82.3 Family history of stroke; Z68.38 Body mass index [BMI] 38.0-38.9, adult; G89.29 Other chronic pain
CPT/HCPCS: 36415; 71045; 80048; 82607; 82728; 82746; 83540; 83550; 83605; 83880; 84484; 85027; 93005; 99285; J7030; J7050; A4216; J2405; J2916

== ENCOUNTER 2024-01-06 10:48 | Inpatient (IN) | payer MEDICAID, SELFPAY ==
[2024-01-06] VITALS (23 sets, daily range): BP systolic 99–169; BP diastolic 47–133; PULSE 65–98; RESP 12–32; TEMP 36.3–36.6; O2SAT 71–96; BMI 37.0
--- NOTE | 2024-01-06 10:54 | RAD_ITS ---
STUDY: X-RAY CHEST REASON FOR EXAM: Female, 43 years old. Sob TECHNIQUE: Single AP portable view of the chest. COMPARISON: Comparison is made with prior study December 29, 2023. FINDINGS: EKG electrodes are seen. Stable elevation of the right hemidiaphragm. Findings suggestive of CHF. Sternal cerclage wires and vascular clips are present from a prior sternotomy and coronary artery bypass graft procedure (CABG). Normal mediastinum and neyda. Normal visualized pulmonary arteries. Normal visualized aortic arch and descending thoracic aorta. Normal visualized thoracic spine. Normal visualized ribs, clavicles, and shoulders. There is no demonstrated abnormality of the visualized soft tissue structures of the upper abdomen. RAD/Chest 1 View (Portable) IMPRESSION: Findings suggestive of CHF. Stable elevation of the right hemidiaphragm. Electronically Signed: Tenzin Persaud MD at 12:01 EDT ,
--- NOTE | 2024-01-06 11:01 | CT_ITS ---
STUDY: CTA CHEST REASON FOR EXAM: Female, 43 years old. Shortness of breath. Wheezing. Congestive heart failure. Pulmonary embolism. RADIATION DOSAGE (If Supplied By Facility): CTDIvol = ( 14.79 ) mGy, DLP = ( 442.14 ) mGycm TECHNIQUE: The examination was performed with the intravenous administration of 100ml [id number]. Post-processing of the angiographic images was performed, with multiplanar reformation and 3D reconstruction. Individualized dose optimization techniques were used for this CT. COMPARISON: Comparison is made with prior study dated September 21, 2020. FINDINGS: Normal enhancement of the main pulmonary artery and right and left pulmonary arteries. Normal enhancement of the bilateral peripheral pulmonary arteries. There is no demonstrated pulmonary embolism. Normal thoracic aorta and visualized great vessels. There is no demonstrated aortic dissection. Sternal cerclage wires and vascular clips are present from a prior sternotomy and coronary artery bypass graft procedure (CABG). There are calcifications of the coronary arteries. Normal mediastinum. Normal hilar regions. Normal visualized trachea and bronchi. The lungs are well expanded. Diffuse bilateral groundglass appearance involving both lungs in the upper and lower lobes. This is suggestive of a CHF. Normal pleura. Normal chest wall structures. Normal osseous structures. Normal visualized upper abdomen. CT/CTA Chest W/WO Contrast IMPRESSION: No evidence of pulmonary embolism. Findings in keeping with CHF. Electronically Signed: Tenzin Persaud MD at 13:31 EDT ,
[2024-01-06 11:05] LABS: Absolute Lymphocyte Count 1.17 X10^3/uL (0.83-4.51); Absolute Neutrophil Count 14.3 X10^3/uL (2.0-7.7); Basophil# 0.08 X10^3/uL; Basophil% 0.5 % (0-1); Eosinophil# 0.41 X10^3/uL; Eosinophils% 2.3 % (0-5); Hematocrit 32.5 % (37-47); Hemoglobin 10.4 g/dL (12.0-15.0); Lymphocyte # 1.17 X10^3/ul (0.83-4.51); Lymphocyte % 6.6 % (19-41); Mean Corpuscular Hgb 27.5 pg (27.0-32.0); Mean Platelet Vol. 11.5 fl (6.2-12.0); Monocyte# 1.49 X10^3/uL; Monocyte% 8.4 % (0-10); NRBC Flagged by Analyzer 0.1 % (0-5); Neutrophil # 14.34 X10^3/uL (2.7-7.7); Neutrophil % 80.8 % (47-70); Platelet Count 322 K/mm3 (150-450); RBC Distribution Width CV 15.9 % (11.6-14.6); RBC Distribution Width SD 49.7 fl (35.1-43.9); Red Blood Count 3.78 M/mm3 (4.2-5.4); White Blood Count 17.7 K/mm3 (4.4-11.0)
[2024-01-06] MEDS: Albuterol 2.5 MG/3 ML VIAL.NEB. INHALATION ×3 (11:09)
[2024-01-06] MEDS: Ipratropium/Albuterol Sulfate 3 ML AMPUL.NEB INHALATION ×3 (11:09→23:21)
[2024-01-06] MEDS: 0.9% Normal Saline (1000mL) 1,000 ML 150 ML IV (11:10)
[2024-01-06] MEDS: MethylPREDNISolone 125 MG/2 ML Vial IV (11:10)
--- NOTE | 2024-01-06 11:13 | EX.ED.DYSGE1 ---
HPI History of Present Illness Chief Complaint: Shortness of Breath Informant: patient Narrative Narrative: 43-year-old female presenting to the emergency room with shortness of breath. Patient states she has felt ill over the past several days. It has been progressively shortness of breath and cough. She states that last year she was hospitalized and on the ventilator requiring tracheostomy due to ARDS from pneumonia. She states she was seen at [facility]. The patient states she wears oxygen at night. She states she is not currently on anticoagulation. She denies any fevers. No sputum production. Is reported by nursing that the patient was in the high 60s low 70s on room air. She was recently hospitalized with syncope. [facility] Medical History CKD stage 3b, GFR 30-44 ml/min Anxiety Depression Kidney stones Kidney disease GERD (gastroesophageal reflux disease) Asthma Congestive heart failure (CHF) CHF (congestive heart failure) TIA (transient ischemic attack) (~2001) History of stroke (~2001) Non-rheumatic tricuspid valve insufficiency DDD (degenerative disc disease) History of bicuspid aortic valve Essential hypertension History of DVT of lower extremity History of pulmonary embolus (PE) Colitis Cough Chest pain Thrush Normochromic normocytic anemia Borderline personality disorder Pulmonary hypertension Seizure disorder ARDS (adult respiratory distress syndrome) Acute respiratory failure with hypoxia Hematemesis Leiomyosarcoma Syringomyelia Migraine Exercise-induced asthma Arthritis Anxiety disorder Fibromyalgia AI (aortic insufficiency) Home Medications ?Medication ?Instructions ?Recorded ?Last Taken ?Type medroxyprogesterone 150 mg/mL 150 mg IM .[id number] control 03/15/16 3 Weeks Ago History intramuscular syringe ~06/19/20 albuterol sulfate 90 mcg/actuation 1 puff inhalation Q4H PRN Sob &/Or 10/02/16 01/06/24 History aerosol inhaler Wheezing albuterol sulfate 2.5 mg/3 mL 2.5 mg (3 mL) inhalation Q4H PRN 04/15/19 01/06/24 Rx (0.083 %) solution for nebulization breathing #25 vials fluoxetine 40 mg capsule 40 mg PO DAILY DEPRESSION 07/10/20 01/06/24 History oxaprozin 600 mg tablet 600 mg PO BID pain 07/10/20 01/06/24 History carvedilol 6.25 mg tablet 6.25 mg PO BID blood pressure 11/06/23 01/06/24 History lisinopril 30 mg tablet 30 mg PO DAILY blood pressure 11/06/23 01/06/24 History montelukast 10 mg tablet 10 mg PO DAILY allergies 11/06/23 01/06/24 History ranolazine 500 mg tablet,extended 500 mg PO BID chest pain 11/06/23 01/06/24 History release,12 hr atorvastatin 20 mg tablet 20 mg PO DAILY cholesterol 12/29/23 01/06/24 History pregabalin 300 mg capsule 300 mg PO Q12H nerve pain 12/29/23 01/06/24 History ferrous gluconate 324 mg (38 mg 324 mg PO DAILY #30 tabs 01/01/24 01/06/24 Rx iron) tablet baclofen 10 mg tablet 10 mg PO TID 01/06/24 01/06/24 History budesonide-formoterol HFA 160 2 puff inhalation DAILY 01/06/24 01/06/24 History mcg-4.5 mcg/actuation aerosol inhaler (Symbicort) fluoxetine 20 mg tablet 20 mg PO DAILY 01/06/24 01/06/24 History omeprazole 20 mg capsule,delayed 20 mg PO DAILY 01/06/24 01/06/24 History release Allergy/AdvReac Type Severity Reaction Status Date / Time amitriptyline Allergy Other Verified 12/29/23 20:55 amoxicillin (Amoxicillin) Allergy Rash Verified 12/29/23 20:55 erythromycin base Allergy Rash Verified 12/29/23 20:55 (Erythromycin Base) hydroxyzine Allergy Rash Verified 12/10/23 10:24 levofloxacin (From Levaquin) Allergy Swelling Verified 12/29/23 20:55 milnacipran Allergy Other Verified 12/29/23 20:55 milnacipran HCl (From Allergy Other Verified 12/29/23 20:55 Savella) celecoxib (From Celebrex) AdvReac Other Verified 12/29/23 20:55 diphenhydramine HCl (From AdvReac muscle Verified 12/29/23 20:55 Benadryl) spasms duloxetine HCl (From AdvReac Other Verified 12/29/23 20:55 Cymbalta) meloxicam AdvReac Swelling Verified 12/29/23 20:55 of legs/chest pain Family History Mother Cancer, Onset Age: 36 Breast CVA (cerebral vascular accident) CAD (coronary artery disease), Onset Age: 46 Myocardial infarction x2 Grandmother CAD (coronary artery disease) COPD (chronic obstructive pulmonary disease) Diabetes Surgical History History of right hip replacement History of adenoidectomy History of bilateral knee replacement History of left heart catheterization (LHC) (~01/31/17) History of atrial septal defect repair (~12/04/00) H/O aortic valve repair (~12/04/00) Social History Smoking Status: Current every day smoker tobacco type: cigarettes alcohol intake: current details: occasional substance use type: does not use ROS ROS ED Constitutional Constitutional ED: Denies chills, fever(s) or weight loss Eyes Eyes: Denies change in vision or diplopia ENT ENT ED: Denies ear pain, rhinorrhea or sore throat Cardiovascular Cardiovascular: Denies chest pain, orthopnea, palpitations or racing heartbeat Respiratory/Chest Respiratory/Chest: Reports cough, dyspnea and dyspnea on exertion; Denies orthopnea Gastrointestinal Gastrointestinal: Denies abdominal pain, diarrhea, nausea or vomiting Genitourinary Genitourinary ED: Denies dysuria, hematuria or urinary frequency Musculoskeletal Musculoskeletal: Denies arthralgias or myalgias Integumentary Denies abscess or rash Neurologic Neurologic: Denies headache(s) or weakness Psychiatric Psychiatric: Denies anxiety, depression, suicidal ideation or suicidal thoughts Endocrine Endocrinology: Denies polydipsia, polyphagia or polyuria Allergic/Immunologic Allergic/Immunologic ED: Denies mouth swelling, tongue swelling or urticaria EXAM Physical Exam Const Vital Signs: 01/06/24 10:48 01/06/24 10:54 01/06/24 10:55 Temperature 97.9 F Temperature Source Temporal Pulse Rate 93 Respiratory Rate 22 H 21 H Respiratory Effort Short of Breath Labored Blood Pressure Blood Pressure Mean Pulse Ox 71 90 Oxygen Delivery Method Room Air Nasal Cannula Nasal Cannula Oxygen Flow Rate (L/min) 6 6 01/06/24 10:55 01/06/24 11:01 01/06/24 11:12 Temperature Temperature Source Pulse Rate Respiratory Rate Respiratory Effort Blood Pressure 99/47 L Blood Pressure Mean 64 Pulse Ox 96 Oxygen Delivery Method Nasal Cannula Nasal Cannula Nasal Cannula Oxygen Flow Rate (L/min) 6 6 6 01/06/24 11:18 01/06/24 11:56 01/06/24 12:00 Temperature Temperature Source Pulse Rate 83 83 Respiratory Rate 20 H 23 H Respiratory Effort Blood Pressure 128/95 H Blood Pressure Mean 106 Pulse Ox 93 93 Oxygen Delivery Method Nasal Cannula Nasal Cannula Oxygen Flow Rate (L/min) 7 7 01/06/24 12:45 01/06/24 13:00 01/06/24 13:45 Temperature Temperature Source Pulse Rate 81 84 77 Respiratory Rate 21 H 18 19 H Respiratory Effort Blood Pressure 132/109 H 151/111 H 143/100 H Blood Pressure Mean 115 124 114 Pulse Ox 93 Oxygen Delivery Method Nasal Cannula Oxygen Flow Rate (L/min) 7 01/06/24 13:56 01/06/24 14:00 Temperature 97.3 F L Temperature Source Pulse Rate 79 82 Respiratory Rate 29 H 23 H Respiratory Effort Blood Pressure 143/100 H 141/96 H Blood Pressure Mean 114 109 Pulse Ox 95 Oxygen Delivery Method Oxygen Flow Rate (L/min) Positive well nourished and well developed General Appearance ED: well developed HEENT Reports normocephalic, head/scalp atraumatic and moist mucous membranes Eyes PERRL and EOMs intact bilaterally Neck no lymphadenopathy, supple and no JVD Neck Narrative: There is a well-healed tracheostomy scar anterior neck Resp Resp Narrative: As I take out my stethoscope the patient begins to tighten her neck and I can then hear audible wheezing. Sounds more like upper airway. She clearly has lower lung field wheezing and so I asked her to pursed lip breathing which resolves the upper airway issue. She is tachypneic. Conversational dyspnea. Cardio regular rate, regular rhythm and no murmurs GI normal to inspection, nondistended, normoactive bowel sounds and non-tender Palpation: soft Back/Spine no CVA tenderness and normal ROM Extremity normal to inspection General Extremety ED: Negative for edema General Extremity: Negative for edema Neuro oriented x3 and CN's II-XII intact bilaterally Sensorium / Orientation: alert Motor Exam: strength 5/5 throughout Psych mental status grossly normal Mood & Affect: Negative for depressed or tearful Skin no rashes or lesions noted and no wounds MDM MDM MDM Narrative Medical decision making narrative: Differential diagnosis includes but not limited to pneumonia COPD exacerbation bronchospasm bronchitis ARDS pleural effusion pneumothorax acute coronary syndrome sepsis IV was established. White count returns at 17.7 hemoglobin 10.4 platelet count 322. Coags showed a INR 1.3 PTT 28.8. Initial cardiac enzymes were normal. BNP is normal. My independent interpretation of the chest x-ray is possible right-sided infiltrate elevated right hemidiaphragm. The Patient's History a CTA of the Chest Was Obtained. This is negative for acute pulmonary embolism. There is noted diffuse interstitial changes throughout both lung dang. This could also be scarring from prior infection. I do not see an obvious focal consolidation. Patient received Rocephin and azithromycin as well as breathing treatments and Solu-Medrol. Patient's EKG showed ST depression across the precordial leads which I suspect is due to her degree of hypoxemia into the 60s. These ST segments have improved still with inverted T waves. Patient is currently requiring 7 L nasal cannula. Patient has been resting more comfortably seen being able to get some sleep. ABG ordered by hospitalist was obtained and reviewed. History & Record Review Discussion w/independent historian: Patient Lab Data Attestation: I reviewed the patient's lab results. Labs: Laboratory Results - last 24 hr 01/06/24 01/06/24 01/06/24 11:00 11:00 11:00 WBC 17.7 H RBC 3.78 L Hgb 10.4 L Hct 32.5 L MCV 86.0 MCH 27.5 MCHC 32.0 RDW Std Deviation 49.7 H RDW Coeff of Beto 15.9 H Plt Count 322 MPV 11.5 Immature Gran % (Auto) 1.400 H Neut % (Auto) 80.8 H Lymph % (Auto) 6.6 L [place] % (Auto) 8.4 Eos % (Auto) 2.3 Baso % (Auto) 0.5 Absolute Neuts (auto) 14.3 H Absolute Lymphs (auto) 1.17 Nucleated RBC % 0.1 PT 15.7 H INR 1.3 APTT 28.8 Sodium Cancelled 137 Potassium Cancelled 4.0 Chloride Cancelled Carbon Dioxide Anion Gap BUN Creatinine Estim Creat Clear Calc Est GFR (MDRD) Af Amer Est GFR (MDRD) Non-Af BUN/Creatinine Ratio Glucose Lactic Acid Calcium Total Bilirubin Direct Bilirubin AST ALT Alkaline Phosphatase Troponin I High Sens B-Natriuretic Peptide Total Protein Albumin Globulin 01/06/24 01/06/24 01/06/24 11:00 11:00 11:00 WBC RBC Hgb Hct MCV MCH MCHC RDW Std Deviation RDW Coeff of Beto Plt Count MPV Immature Gran % (Auto) Neut % (Auto) Lymph % (Auto) [place] % (Auto) Eos % (Auto) Baso % (Auto) Absolute Neuts (auto) Absolute Lymphs (auto) Nucleated RBC % PT INR APTT Sodium Potassium Chloride 104 Carbon Dioxide Cancelled 23.0 Anion Gap Cancelled 10 BUN Cancelled Creatinine Estim Creat Clear Calc Est GFR (MDRD) Af Amer Est GFR (MDRD) Non-Af BUN/Creatinine Ratio Glucose Lactic Acid Calcium Total Bilirubin Direct Bilirubin AST ALT Alkaline Phosphatase Troponin I High Sens B-Natriuretic Peptide Total Protein Albumin Globulin 01/06/24 01/06/24 01/06/24 11:00 11:00 11:00 WBC RBC Hgb Hct MCV MCH MCHC RDW Std Deviation RDW Coeff of Beto Plt Count MPV Immature Gran % (Auto) Neut % (Auto) Lymph % (Auto) [place] % (Auto) Eos % (Auto) Baso % (Auto) Absolute Neuts (auto) Absolute Lymphs (auto) Nucleated RBC % PT INR APTT Sodium Potassium Chloride Carbon Dioxide Anion Gap BUN 19 H Creatinine Cancelled 1.28 H Estim Creat Clear Calc Cancelled 60.76 Est GFR (MDRD) Af Amer Cancelled Est GFR (MDRD) Non-Af BUN/Creatinine Ratio Glucose Lactic Acid Calcium Total Bilirubin Direct Bilirubin AST ALT Alkaline Phosphatase Troponin I High Sens B-Natriuretic Peptide Total Protein Albumin Globulin 01/06/24 01/06/24 01/06/24 11:00 11:00 11:00 WBC RBC Hgb Hct MCV MCH MCHC RDW Std Deviation RDW Coeff of Beto Plt Count MPV Immature Gran % (Auto) Neut % (Auto) Lymph % (Auto) [place] % (Auto) Eos % (Auto) Baso % (Auto) Absolute Neuts (auto) Absolute Lymphs (auto) Nucleated RBC % PT INR APTT Sodium Potassium Chloride Carbon Dioxide Anion Gap BUN Creatinine Estim Creat Clear Calc Est GFR (MDRD) Af Amer 58 L Est GFR (MDRD) Non-Af Cancelled 48 L BUN/Creatinine Ratio Cancelled 14.8 Glucose Cancelled Lactic Acid Calcium Total Bilirubin Direct Bilirubin AST ALT Alkaline Phosphatase Troponin I High Sens B-Natriuretic Peptide Total Protein Albumin Globulin 01/06/24 01/06/24 01/06/24 11:00 11:00 11:10 WBC RBC Hgb Hct MCV MCH MCHC RDW Std Deviation RDW Coeff of Beto Plt Count MPV Immature Gran % (Auto) Neut % (Auto) Lymph % (Auto) [place] % (Auto) Eos % (Auto) Baso % (Auto) Absolute Neuts (auto) Absolute Lymphs (auto) Nucleated RBC % PT INR APTT Sodium Potassium Chloride Carbon Dioxide Anion Gap BUN Creatinine Estim Creat Clear Calc Est GFR (MDRD) Af Amer Est GFR (MDRD) Non-Af BUN/Creatinine Ratio Glucose 136 H Lactic Acid 1.1 Calcium Cancelled 9.0 Total Bilirubin 0.50 Direct Bilirubin 0.08 AST 42 H ALT 20 Alkaline Phosphatase 78 Troponin I High Sens 7 B-Natriuretic Peptide 59.2 Total Protein 7.5 Albumin 3.2 Globulin 4.3 H ABG Data ABG results: ABG 01/06/24 14:31 Specimen Type ART Sample Site R Radial pH 7.38 Bicarbonate Actual 22.0 Total CO2 23 Base Excess -3 L O2 Saturation 96 O2 % 7.0 ABG pCO2 37.3 ABG pO2 80 O2 Delivery Device HFNC Vent Mode Not entered Radiography Diagnostic Testing: Clinical Impression(s) from Imaging Studies Chest X-Ray 01/06/24 10:54 IMPRESSION: Findings suggestive of CHF. Stable elevation of the right hemidiaphragm. Electronically Signed: Tenzin Persaud MD at 12:01 EDT , Chest CTA 01/06/24 11:01 IMPRESSION: No evidence of pulmonary embolism. Findings in keeping with CHF. Electronically Signed: Tenzin Persaud MD at 13:31 EDT , EKG Initial EKG: Attestation: I personally reviewed and interpreted this EKG as follows: Comments: Normal sinus rhythm ventricular rate of 85. There ST-T wave changes in the precordial leads with inverted T waves. Follow-up EKG: Attestation: I personally reviewed and interpreted this EKG as follows: Comments: Normal sinus rhythm ventricular rate of 77 bpm. There is some improvement of the ST segments particularly across the anterior leads. Discharge Plan Disposition Disposition: Acute Care Hospital [facility] Discharge Date/Time: 01/06/24 15:22
[2024-01-06 11:52] LABS: Lactic Acid 1.1 mmol/L (0.4-1.9)
[2024-01-06] MEDS: Ceftriaxone 1 GM/50 ML BAG IV (12:09)
[2024-01-06 12:12] LABS: AST(SGOT) 42 U/L (15-37); Alanine Aminotransfer ALT/SGPT 20 U/L (13-56); Albumin, Serum 3.2 g/dL (3.2-5.0); Alkaline Phosphatase 78 U/L (45-117); Anion Gap 10 (5-15); BUN 19 mg/dL (7-18); BUN/Creat Ratio 14.8 RATIO (10-20); Bilirubin, Direct 0.08 mg/dL (0.00-0.30); Chloride 104 mmol/L (98-107); Creatinine, Serum 1.28 mg/dL (0.55-1.02); EST Glomerular Filtration Rate 48 mL/min (>60); Est Glom Filt Rate - Afr Amer 58 mL/min (>60); Estimated Creatinine Clearance 60.76 ml/min; Globulin 4.3 g/dL (2.2-4.2); Glucose 136 mg/dL (74-106); Protein, Total 7.5 g/dL (6.4-8.2); Sodium Level 137 mmol/L (136-145); Troponin-I HS 7 pg/mL (3.0-54.0)
[2024-01-06 12:27] LABS: International Normalized Ratio 1.3; Partial Thromboplast Time 28.8 Seconds (24.1-36.2); Prothrombin Time (Protime)PT. 15.7 SECONDS (11.7-14.9)
[2024-01-06] MEDS: Azithromycin 500 MG in Dextrose 5%-Water (250mL Bag) 250 ML 250 MG IV (12:46)
[2024-01-06 12:51] LABS: BNP,B-Type NATRIURETIC PEPTIDE 59.2 pg/mL (0-100)
--- NOTE | 2024-01-06 14:04 | ECHOCS_ITS ---
Reason For Study: MURMUR Procedure This was a 2D Doppler, Color Flow transthoracic echocardiogram. The study was technically difficult. Contrast injection was performed. Patient was on BiPap during exam. Exam performed portable in patient room. Left Ventricle Normal size and thickness. The left ventricular ejection fraction is 55 %. Normal diastololic function. Right Ventricle Normal right ventricle. Atria The left and right atria are normal. Mitral Valve Trivial mitral valve insufficiency. Tricuspid Valve Mild to moderate (1-2+) tricuspid valve insufficiency. Right ventricular systolic pressure estimated to be 48 mmHg. Aortic Valve Mild diffuse aortic valve thickening. The aortic valve is not well visualized in the short axis view. Mild aortic stenosis. Pulmonic Valve The pulmonic valve is not well visualized. Great Vessels Normal sized aortic root. Pericardium/Pleural No pericardial effusion. Medication Diluted definity 1ml given slow IV push to enhance endocardial definition. MMode/2D Measurements & Calculations LVIDd: 4.2 cm IVSd: 1.1 cm LVOT diam: 2.0 cm LVIDs: 2.5 cm LVPWd: 1.1 cm RVDd: 3.8 cm FS: 40.1 % LVOT area: 3.1 cm2 Ao root diam: 3.3 cm LAV(MOD-bp): 30.7 ml LVAd ap4: 35.7 cm2 LAV(MOD-bp) Indexed: 15.6 ml/m2 LVLd ap4: 8.3 cm LAV(MOD-sp2): 44.3 ml EDV(MOD-sp4): 121.5 ml LAV(MOD-sp4): 15.5 ml EDV(sp4-el): 130.0 ml LVAs ap4: 20.7 cm2 LVLs ap4: 6.8 cm ESV(MOD-sp4): 50.3 ml ESV(sp4-el): 53.6 ml EF(MOD-sp4): 58.6 % EF(sp4-el): 58.8 % LVAd ap2: 33.9 cm2 SV(MOD-sp4): 71.2 ml SV(MOD-sp2): 67.8 ml LVLd ap2: 8.4 cm EDV(MOD-sp2): 107.1 ml EDV(sp2-el): 115.6 ml LVAs ap2: 19.2 cm2 LVLs ap2: 7.5 cm ESV(MOD-sp2): 39.2 ml ESV(sp2-el): 41.7 ml EF(MOD-sp2): 63.4 % SV(sp4-el): 76.4 ml LA dimension(2D): 3.9 cm LA A4 area: 8.8 cm2 RA A4 area: 9.9 cm2 TAPSE: 1.4 cm Time Measurements MV dec time: 0.19 sec Doppler Measurements & Calculations MV E max andrei: 93.9 cm/sec Lat Peak E' Andrei: 12.2 cm/sec Med Peak E' Andrei: 9.6 cm/sec MV A max andrei: 65.3 cm/sec E/E' lat: 7.7 E/E' med: 9.8 MV E/A: 1.4 Ao V2 max: 228.5 cm/sec LV V1 max: 106.4 cm/sec MV dec slope: 498.2 cm/sec2 Ao max P.9 mmHg LV V1 max P.5 mmHg Ao V2 mean: 153.5 cm/sec LV V1 mean P.1 mmHg Ao mean P.8 mmHg LV V1 mean: 86.9 cm/sec Ao V2 VTI: 41.4 cm LV V1 VTI: 21.8 cm AV (velocity ratio): 0.53 DANI(I,D): 1.6 cm2 DANI(V,D): 1.4 cm2 SV(LVOT): 67.3 ml PA V2 max: 105.9 cm/sec TR max andrei: 328.2 cm/sec PA max PG (full): 2.8 mmHg TR max P.1 mmHg ECHO/Echo Complete W/ Contrast Interpretation Summary The left ventricular ejection fraction is 55 %. Mild to moderate (1-2+) tricuspid valve insufficiency. Right ventricular systolic pressure estimated to be 48 mmHg. Mild diffuse aortic valve thickening. Mild aortic stenosis. Prominent posterior pericardial fat pad versus small pleural effusion. Marked turbulence noted in descending thoracic aorta. Recommend CT scan of the chest for further evaluation of the pericardium as wel l as the descending thoracic aorta. Ordering Physician: Marlee Gonzalez Performed By: Giovanna Glynn RDCS
--- NOTE | 2024-01-06 14:10 | PCM.HP.STD ---
HPI - General General Date of Admission: 01/06/24 Date of Service: 01/06/24 Chief Complaint: Shortness of breath HPI Narrative CONCEPCION CR, is a 43 F who presented to the emergency department at [facility] on 01/06/2024 with a chief complaint of shortness of breath. Patient reported she had felt ill over the past several days and had progressively gotten worsening shortness of breath and cough. She reports the cough is nonproductive and dry in nature. She has no sick contacts of which she is aware. She denies any fever or chills. She has had some mild nausea but no vomiting. Bowel function has been normal. She states her appetite is a little bit worse than typical. She indicates she was tested recently for obstructive sleep apnea and did not qualify for nocturnal positive pressure ventilation. She does wear 2 L of oxygen at night however. She does have a history of respiratory failure requiring mechanical ventilation and eventually tracheostomy due to ARDS from a pneumonia she previously suffered. This hospitalization occurred at [facility] about 1 year ago. Patient reports she wears oxygen at night. Pulse ox was in the upper 60s to low 70s on room air. At baseline she follows with Dr. Robertson from [facility] for pulmonary medicine. She also admits to a history of a aortic valve and aortic root repair in 2000 with no known recent echocardiogram performed. Patient states she quit smoking last week. At that point she admits she was smoking about 5 cigarettes daily Vital signs on presentation show a temperature of 97.9, heart rate 93, respiratory rate was 22, blood pressure was 99/47, and pulse ox was 71% on room air. She was placed on 6 L nasal cannula which improved her oxygenation status up to 96% however she was still in some mild respiratory distress with pursed lip breathing and some accessory muscle use. CBC shows a leukocytosis with a white count of 17.7, chronic anemia with a stable hemoglobin at 10.4, and a left shift with an 80.8% neutrophilia. Coags are unremarkable. Chemistry panel was unremarkable. Serum creatinine is 1.28 which appears to be her baseline. Glucose is 136. Lactic acid was 1.1. AST was mildly elevated at 42 but liver enzymes were otherwise unremarkable. Her initial troponin was 7 and her BNP was 59.2, however, her BNP on 12/29/2023 was 10.2. A CTA of her chest was performed and showed no evidence of pulmonary embolus however she has diffuse patchy bilateral groundglass changes throughout bilateral lung dang both upper and lower lobes. This seems to be most consistent will with an atypical pneumonia versus heart failure. In the emergency department she was given azithromycin and ceftriaxone however with her recent hospitalizations and lung disease I will broaden her coverage to cover atypicals with azithromycin to be continued as well as Pseudomonas and MRSA in the short-term until we can narrow antibiotic requirements. [facility] Medical History CKD stage 3b, GFR 30-44 ml/min Anxiety Depression Kidney stones Kidney disease GERD (gastroesophageal reflux disease) Asthma Congestive heart failure (CHF) CHF (congestive heart failure) TIA (transient ischemic attack) (~2001) History of stroke (~2001) Non-rheumatic tricuspid valve insufficiency DDD (degenerative disc disease) History of bicuspid aortic valve Essential hypertension History of DVT of lower extremity History of pulmonary embolus (PE) Colitis Cough Chest pain Thrush Normochromic normocytic anemia Borderline personality disorder Pulmonary hypertension Seizure disorder ARDS (adult respiratory distress syndrome) Acute respiratory failure with hypoxia Hematemesis Leiomyosarcoma Syringomyelia Migraine Exercise-induced asthma Arthritis Anxiety disorder Fibromyalgia AI (aortic insufficiency) Home Medications ?Medication ?Instructions ?Recorded ?Last Taken ?Type medroxyprogesterone 150 mg/mL 150 mg IM .[id number] control 03/15/16 3 Weeks Ago History intramuscular syringe ~06/19/20 albuterol sulfate 90 mcg/actuation 1 puff inhalation Q4H PRN Sob &/Or 10/02/16 01/06/24 History aerosol inhaler Wheezing albuterol sulfate 2.5 mg/3 mL 2.5 mg (3 mL) inhalation Q4H PRN 04/15/19 01/06/24 Rx (0.083 %) solution for nebulization breathing #25 vials fluoxetine 40 mg capsule 40 mg PO DAILY DEPRESSION 07/10/20 01/06/24 History oxaprozin 600 mg tablet 600 mg PO BID pain 07/10/20 01/06/24 History carvedilol 6.25 mg tablet 6.25 mg PO BID blood pressure 11/06/23 01/06/24 History lisinopril 30 mg tablet 30 mg PO DAILY blood pressure 11/06/23 01/06/24 History montelukast 10 mg tablet 10 mg PO DAILY allergies 11/06/23 01/06/24 History ranolazine 500 mg tablet,extended 500 mg PO BID chest pain 11/06/23 01/06/24 History release,12 hr atorvastatin 20 mg tablet 20 mg PO DAILY cholesterol 12/29/23 01/06/24 History pregabalin 300 mg capsule 300 mg PO Q12H nerve pain 12/29/23 01/06/24 History ferrous gluconate 324 mg (38 mg 324 mg PO DAILY #30 tabs 01/01/24 01/06/24 Rx iron) tablet baclofen 10 mg tablet 10 mg PO TID 01/06/24 01/06/24 History budesonide-formoterol HFA 160 2 puff inhalation DAILY 01/06/24 01/06/24 History mcg-4.5 mcg/actuation aerosol inhaler (Symbicort) fluoxetine 20 mg tablet 20 mg PO DAILY 01/06/24 01/06/24 History omeprazole 20 mg capsule,delayed 20 mg PO DAILY 01/06/24 01/06/24 History release Allergy/AdvReac Type Severity Reaction Status Date / Time amitriptyline Allergy Other Verified 12/29/23 20:55 amoxicillin (Amoxicillin) Allergy Rash Verified 12/29/23 20:55 erythromycin base Allergy Rash Verified 12/29/23 20:55 (Erythromycin Base) hydroxyzine Allergy Rash Verified 12/10/23 10:24 levofloxacin (From Levaquin) Allergy Swelling Verified 12/29/23 20:55 milnacipran Allergy Other Verified 12/29/23 20:55 milnacipran HCl (From Allergy Other Verified 12/29/23 20:55 Savella) celecoxib (From Celebrex) AdvReac Other Verified 12/29/23 20:55 diphenhydramine HCl (From AdvReac muscle Verified 12/29/23 20:55 Benadryl) spasms duloxetine HCl (From AdvReac Other Verified 12/29/23 20:55 Cymbalta) meloxicam AdvReac Swelling Verified 12/29/23 20:55 of legs/chest pain Family History Mother Cancer, Onset Age: 36 Breast CVA (cerebral vascular accident) CAD (coronary artery disease), Onset Age: 46 Myocardial infarction x2 Grandmother CAD (coronary artery disease) COPD (chronic obstructive pulmonary disease) Diabetes Surgical History History of right hip replacement History of adenoidectomy History of bilateral knee replacement History of left heart catheterization (LHC) (~01/31/17) History of atrial septal defect repair (~12/04/00) H/O aortic valve repair (~12/04/00) Social History Smoking Status: Current every day smoker tobacco type: cigarettes alcohol intake: current details: occasional substance use type: does not use ROS Constitutional Constitutional: Reports anorexia, fatigue and weakness; Denies change in weight, chills, fever(s), malaise, night sweats or other Eyes Eyes: Denies blurry vision, change in eye color, change in vision, discharge from eye(s), double vision, erythema, eye pain, loss of vision or other ENT HEENT: Denies abnormal hearing, dysphagia, ear pain, epistaxis, headache(s), hearing loss, nasal congestion, nasal discharge, post nasal drip, sinus pressure, sore throat or other Cardiovascular Cardiovascular: Reports chest pain; Denies claudication, dyspnea on exertion, edema, lightheadedness, orthopnea, palpitations, paroxysmal nocturnal dyspnea, rapid heart rate, syncope or other Respiratory/Chest Respiratory/Chest: Reports cough, dyspnea, shortness of breath at rest, shortness of breath with exertion and wheezing; Denies excessive phlegm production, hemoptysis, productive cough or other Gastrointestinal Gastrointestinal: Reports nausea; Denies abdominal pain, coffee ground emesis, constipation, diarrhea, dyspepsia, hematemesis, hematochezia, loose stools, melena, vomiting or other Genitourinary Genitourinary: Denies burning urination, difficulty urinating, dysuria, hematuria, nocturia, urinary frequency, urinary hesitancy, urinary incontinence, urinary urgency or other Musculoskeletal Musculoskeletal: Denies arthralgias, back pain, joint pain, joint stiffness, joint swelling, myalgias, neck pain or other Neurologic Neurologic: Denies abnormal gait, abnormal speech, confusion, disequilibrium, dizziness, focal weakness, headache(s), numbness, paresthesias, seizure-like activity, seizures, syncope, tingling, tremor(s) or other Psychiatric Psychiatric: Reports anxiety and depression; Denies homicidal ideation, suicidal ideation or other Endocrine Endocrinology: Denies change in body appearance, cold intolerance, excessive sweating, heat intolerance, polydipsia, polyuria or other Hematologic/Lymphatic Hematologic/Lymphatic: Denies anemia, easy bleeding, easy bruising, lymphadenopathy or other Allergic/Immunologic Allergic/Immunologic: Denies rhinitis, hives, eczemia, asthma or other Vital Signs Vital Signs Vital Signs: 01/06/24 10:48 01/06/24 10:54 01/06/24 10:55 Temperature 97.9 F Temperature Source Temporal Pulse Rate 93 Respiratory Rate 22 H 21 H Respiratory Effort Short of Breath Labored Blood Pressure Blood Pressure Mean Pulse Ox 71 90 Oxygen Delivery Method Room Air Nasal Cannula Nasal Cannula Oxygen Flow Rate (L/min) 6 6 01/06/24 10:55 01/06/24 11:01 01/06/24 11:12 Temperature Temperature Source Pulse Rate Respiratory Rate Respiratory Effort Blood Pressure 99/47 L Blood Pressure Mean 64 Pulse Ox 96 Oxygen Delivery Method Nasal Cannula Nasal Cannula Nasal Cannula Oxygen Flow Rate (L/min) 6 6 6 01/06/24 11:18 01/06/24 11:56 01/06/24 12:00 Temperature Temperature Source Pulse Rate 83 83 Respiratory Rate 20 H 23 H Respiratory Effort Blood Pressure 128/95 H Blood Pressure Mean 106 Pulse Ox 93 93 Oxygen Delivery Method Nasal Cannula Nasal Cannula Oxygen Flow Rate (L/min) 7 7 01/06/24 12:45 01/06/24 13:00 01/06/24 13:45 Temperature Temperature Source Pulse Rate 81 84 77 Respiratory Rate 21 H 18 19 H Respiratory Effort Blood Pressure 132/109 H 151/111 H 143/100 H Blood Pressure Mean 115 124 114 Pulse Ox 93 Oxygen Delivery Method Nasal Cannula Oxygen Flow Rate (L/min) 7 01/06/24 13:56 01/06/24 14:00 Temperature 97.3 F L Temperature Source Pulse Rate 79 82 Respiratory Rate 29 H 23 H Respiratory Effort Blood Pressure 143/100 H 141/96 H Blood Pressure Mean 114 109 Pulse Ox 95 Oxygen Delivery Method Oxygen Flow Rate (L/min) Weight Weight: 94.755 kg Body Mass Index (BMI) 37.0 Physical Exam Const alert, oriented x3 and well nourished; Negative for average body habitus or healthy appearing Constitutional Narrative: Obese, middle-aged, white female, sitting up in bed showing some signs of respiratory difficulty however no signs of extremis at this time, respiratory therapist at bedside drawing blood gas, patient appears older than stated age General Appearance: cooperative HEENT normocephalic, head/scalp atraumatic, hearing grossly normal bilaterally and moist oral mucous membranes HEENT Narrative: Mallampati 3, no thrush Eyes PERRL, EOMs intact bilaterally and conjunctivae normal Eyes Narrative: No scleral icterus Neck no lymphadenopathy and supple Neck Narrative: Trachea midline, no thyroid enlargement Resp No normal respiratory effort, no retractions, No no use of accessory muscles and No clear to auscultation bilaterally Resp Narrative: Tachypneic with use of accessory muscles and pursed lip breathing, diffuse inspiratory and expiratory wheezes with crackles at bases bilaterally Auscultation: crackles and wheezes; Negative for rhonchi Cardio regular rate, regular rhythm, S1 normal heart sound, S2 normal heart sound, no rub, no gallops and no clicks Cardio Narrative: 2 out of 6 systolic murmur loudest at right upper sternal border GI normal to inspection, nondistended, normoactive bowel sounds, soft to palpation and non-tender Extremity no clubbing, cyanosis or edema Extremity Narrative: Pedal and radial pulses are 2+ Skin no wounds, skin turgor normal, no jaundice, no petechiae and no mottling Neuro oriented x3, CN's II-XII intact bilaterally, moves all extremities and no focal motor deficits Speech: speech normal Psych Psych Narrative: Affect is slightly flat but anticipated for current medical situation Mood & Affect: anxious Results Lab / Micro Data 01/06/24 11:00 01/06/24 11:00 Labs: Laboratory Results - last 24 hr 01/06/24 11:00: WBC 17.7 H, RBC 3.78 L, Hgb 10.4 L, Hct 32.5 L, MCV 86.0, MCH 27.5, MCHC 32.0, RDW Std Deviation 49.7 H, RDW Coeff of Beto 15.9 H, Plt Count 322, MPV 11.5, Immature Gran % (Auto) 1.400 H, Neut % (Auto) 80.8 H, Lymph % (Auto) 6.6 L, Bosque % (Auto) 8.4, Eos % (Auto) 2.3, Baso % (Auto) 0.5, Absolute Neuts (auto) 14.3 H, Absolute Lymphs (auto) 1.17, Nucleated RBC % 0.1, PT 15.7 H, INR 1.3, APTT 28.8, Sodium Cancelled 01/06/24 11:00: Sodium 137, Potassium Cancelled 01/06/24 11:00: Potassium 4.0, Chloride Cancelled 01/06/24 11:00: Chloride 104, Carbon Dioxide Cancelled 01/06/24 11:00: Carbon Dioxide 23.0, Anion Gap Cancelled 01/06/24 11:00: Anion Gap 10, BUN Cancelled 01/06/24 11:00: BUN 19 H, Creatinine Cancelled 01/06/24 11:00: Creatinine 1.28 H, Estim Creat Clear Calc Cancelled 01/06/24 11:00: Estim Creat Clear Calc 60.76, Est GFR (MDRD) Af Amer Cancelled 01/06/24 11:00: Est GFR (MDRD) Af Amer 58 L, Est GFR (MDRD) Non-Af Cancelled 01/06/24 11:00: Est GFR (MDRD) Non-Af 48 L, BUN/Creatinine Ratio Cancelled 01/06/24 11:00: BUN/Creatinine Ratio 14.8, Glucose Cancelled 01/06/24 11:00: Glucose 136 H, Calcium Cancelled 01/06/24 11:00: Calcium 9.0, Total Bilirubin 0.50, Direct Bilirubin 0.08, AST 42 H, ALT 20, Alkaline Phosphatase 78, Troponin I High Sens 7, B-Natriuretic Peptide 59.2, Total Protein 7.5, Albumin 3.2, Globulin 4.3 H 01/06/24 11:10: Lactic Acid 1.1 Micro: Microbiology 01/06/24 11:42 Mucosa - Nasopharyngeal SARS-CoV-2, Influenza & RSV (PCR) - Final Imaging Radiology Impression Chest X-Ray 01/06/24 10:54 IMPRESSION: Findings suggestive of CHF. Stable elevation of the right hemidiaphragm. Electronically Signed: Tenzin Persaud MD at 12:01 EDT , Chest CTA 01/06/24 11:01 IMPRESSION: No evidence of pulmonary embolism. Findings in keeping with CHF. Electronically Signed: Tenzin Persaud MD at 13:31 EDT , Assessment & Plan Assessment/Plan (1) Leukocytosis: (2) Abnormal EKG: (3) Acute respiratory failure with hypoxia: PLAN: Plan Acute hypoxic respiratory failure secondary to suspected pneumonia/+/- acute exacerbation of CHF/acute exacerbation of COPD -Patient is not oxygen dependent at baseline--> currently requiring 6 to 7 L nasal cannula -Will utilize BiPAP to decrease work of breathing and prevent worsening respiratory status as patient does appear to be working and I am concerned that she could potentially fatigue -CT of chest shows patchy bilateral groundglass changes in the upper and lower lung dang more consistent with heart failure or atypical pneumonia/viral pneumonia -BNP is only 59.2 however she was here last week and her BNP was 10 -Will use Lasix 40 mg IV push daily and monitor renal function closely -COVID/flu/RSV is negative -Check broader respiratory viral panel -Check strep pneumo and Legionella antigens -Check ABG -Start azithromycin, vancomycin, and cefepime (patient with penicillin allergy) -Broad covered utilized due to history of ARDS from pneumonia and recent hospitalizations -Narrow antibiotics as able -Sputum culture pending if patient able to produce -Solu-Medrol 40 every 8 -Scheduled and as needed nebulizers -Mucinex 1200 twice daily -Incentive spirometry -Acapella -Check echocardiogram -Patient follows with pulmonary medicine-Dr. Robertson-[facility] -Will need follow-up as an outpatient and if patient worsens may need to consider consultation here with pulmonary medicine Leukocytosis -Cultures are pending -Broad-spectrum antibiotic coverage in the short-term and narrow as able -Repeat lab in a.m. -Patient has not been on outpatient steroids Abnormal EKG -Initial EKG showed T wave inversions in the precordial leads which were new -Repeat EKG after improvement in her respiratory status still shows some T wave inversion however inversions are not as deep -Will cycle cardiac enzymes -Repeat EKG in morning -Check echocardiogram -May need to consider stress test once patient is more optimized from respiratory standpoint depending on repeat EKG and echocardiogram/cardiac enzymes History of bicuspid aortic valve/ASD -Status post repair in 2000 of both aortic valve and ASD -Mild murmur on exam -Check echocardiogram COPD -Follows at [facility] with Dr. Robertson -Treatment as above -Hold home Symbicort while hospitalized and restart at discharge -Continue home Singulair Essential HTN/HPL -Continue home carvedilol -Hold home lisinopril for now -As needed hydralazine -Continue home statin Chronic anemia -Hemoglobin stable -Continue home iron supplementation -Monitor CBC GERD -Continue home PPI History of PE/DVT -Remote -Patient is not currently anticoagulated -CTA negative for PE -Low suspicion for DVT -DVT prophylaxis as ordered Chronic pain -Continue home Lyrica -Continue home baclofen -Continue home oxaprozin but monitor renal function closely with diuretics Depression/anxiety/borderline personality disorder -Continue home fluoxetine Obesity -BMI 37 -Recommend weight loss -Complicates treatment, prognosis, outcomes Tobacco abuse -Patient states she quit last week -Has been smoking about 5 cigarettes daily up until that point DVT prophylaxis -Subcu Lovenox daily CODE STATUS -Full code as verified at the time of admission Charges/Coding Visit Charges Inpatient E&M: 25496 Init Hosp L3
--- NOTE | 2024-01-06 14:19 | NURSING ---
PCU EVIE ACUTE HYPOXEMIC REAP FAILURE
[2024-01-06 14:34] LABS: Base Excess -3 mmol/L (-2 to +2); Blood Gas Specimen Type ART; Mode Not entered; O2 Delivery Device HFNC; PO2 80 mmHG (75-100); SITE R Radial; SO2 96 % (95-99); Total Carbon Dioxide 23 mmol/L; pCO2 37.3 mmHg (35-45); pH 7.38 (7.35-7.45)
--- NOTE | 2024-01-06 15:02 | PCM.HOSP.N ---
Hospitalist Note After med reconciliation was completed I noted the patient was on Lyrica 300 mg twice daily which is twice the recommended maximal dose for normal renal function. After review of her renal function with a GFR estimate of 48 mL/min her dose was adjusted to 75 mg p.o. twice daily. This will likely need adjusted prior to discharge.
[2024-01-06] MEDS: Furosemide 40 MG/4 ML Vial IV (16:15)
[2024-01-06] MEDS: Cefepime HCl 2 GM in 0.9% Normal Saline (100mL MB+) 100 ML IV ×2 (16:18→21:51)
[2024-01-06 16:53] LABS: Troponin-I HS 5 pg/mL (3.0-54.0)
[2024-01-06] MEDS: Vancomycin HCl 1,500 MG in 0.9% Normal Saline (500mL Bag) 500 ML 250 MG IV (17:03)
--- NOTE | 2024-01-06 18:35 | PHA.PHARE_ITS ---
Consult Antibiotic Management Pharmacy has been consulted to manage selected antibiotic: Vancomycin Type of Intervention Type of Consult: New start Suspected Infection Suspected Infection: Pneumonia Labs Labs: Sodium 137 mmol/L (136-145) 01/06/24 11:00 Sodium Cancelled 01/06/24 11:00 Potassium 4.0 mmol/L (3.5-5.1) 01/06/24 11:00 Potassium Cancelled 01/06/24 11:00 Chloride 104 mmol/L (98-107) 01/06/24 11:00 Chloride Cancelled 01/06/24 11:00 Carbon Dioxide 23.0 mmol/L (21.0-32.0) 01/06/24 11:00 Carbon Dioxide Cancelled 01/06/24 11:00 Anion Gap 10 (5-15) 01/06/24 11:00 Anion Gap Cancelled 01/06/24 11:00 BUN 19 mg/dL (7-18) H 01/06/24 11:00 BUN Cancelled 01/06/24 11:00 Creatinine 1.28 mg/dL (0.55-1.02) H 01/06/24 11:00 Creatinine Cancelled 01/06/24 11:00 Est GFR (MDRD) Af Amer 58 mL/min (>60) L 01/06/24 11:00 Est GFR (MDRD) Af Amer Cancelled 01/06/24 11:00 Est GFR (MDRD) Non-Af 48 mL/min (>60) L 01/06/24 11:00 Est GFR (MDRD) Non-Af Cancelled 01/06/24 11:00 BUN/Creatinine Ratio 14.8 RATIO (10-20) 01/06/24 11:00 BUN/Creatinine Ratio Cancelled 01/06/24 11:00 Glucose 136 mg/dL (74-106) H 01/06/24 11:00 Glucose Cancelled 01/06/24 11:00 Microbiology Microbiology: Microbiology 01/06/24 11:42 Mucosa - Nasopharyngeal SARS-CoV-2, Influenza & RSV (PCR) - Final Dosing Weight Weight used for dosin.8 kg Estimated Creatinine Clearance Estimated Creatinine Clearance: 60.8ML/MIN Goal Trough Goal Trough: 15-20 mcg/mL Pharmacy Plan for Drug Dosing Pharmacy Plan for Drug Dosing: Give initial standard dose of 1500mg IV x1, then continue with 1250mg IV q12h per [facility] dosing protocol. Check a trough before the 4th overall dose. Pharmacy Service will continue to monitor and adjust dosing as required. Follow-Up Labs Follow-Up Labs: Trough: Vancomycin Date/Time Labs Ordered Labs to be done on [date and time ordered]: 01/08/24 04:30
[2024-01-06] MEDS: Morphine 2 MG/ML Syringe IV ×2 (19:57→23:28)
[2024-01-06 20:19] LABS: Troponin-I HS 5 pg/mL (3.0-54.0)
[2024-01-06] MEDS: Pregabalin 75 MG Capsule PO (20:55)
[2024-01-06] MEDS: Ibuprofen 600 MG Tablet PO (20:56)
[2024-01-06] MEDS: Baclofen 10 MG Tablet PO (20:56)
[2024-01-06] MEDS: Carvedilol 6.25 MG Tablet PO (20:56)
[2024-01-06] MEDS: Ranolazine 500 MG Tablet PO (20:57)
[2024-01-06] MEDS: guaiFENesin 1,200 MG Tablet 1200 MG PO (20:58)
[2024-01-06 23:18] LABS: Troponin-I HS 5 pg/mL (3.0-54.0)
[2024-01-06] MEDS: 0.9% Saline Lock 10 ML Syringe IV (23:28)
[2024-01-07] VITALS (23 sets, daily range): BP systolic 84–150; BP diastolic 51–136; PULSE 69–100; RESP 12–28; TEMP 36.3–36.8; O2SAT 91–100; BMI 37.0
[2024-01-07] MEDS: Ipratropium/Albuterol Sulfate 3 ML AMPUL.NEB INHALATION ×4 (03:38→23:00)
[2024-01-07] MEDS: Morphine 4 MG/ML Syringe IV (03:43)
[2024-01-07] MEDS: Vancomycin HCl 1,250 MG in 0.9% Normal Saline (250mL Bag) 250 ML 167 MG IV ×2 (04:59→17:52)
[2024-01-07] MEDS: Baclofen 10 MG Tablet PO ×3 (06:04→21:39)
[2024-01-07] MEDS: Ibuprofen 600 MG Tablet PO ×2 (06:04→15:16)
[2024-01-07 06:14] LABS: Absolute Lymphocyte Count 1.05 X10^3/uL (0.83-4.51); Absolute Neutrophil Count 13.8 X10^3/uL (2.0-7.7); Basophil# 0.05 X10^3/uL; Basophil% 0.3 % (0-1); Eosinophil# 3.14 X10^3/uL; Eosinophils% 16.1 % (0-5); Hematocrit 31.6 % (37-47); Lymphocyte # 1.05 X10^3/ul (0.83-4.51); Lymphocyte % 5.4 % (19-41); Mean Corp Hgb Conc 31.6 g/dL (32-36); Mean Corpuscular Hgb 27.5 pg (27.0-32.0); Mean Corpuscular Volume 87.1 fL (81-99); Monocyte# 1.13 X10^3/uL; Monocyte% 5.8 % (0-10); NRBC Flagged by Analyzer 0.1 % (0-5); Neutrophil # 13.76 X10^3/uL (2.7-7.7); Neutrophil % 70.3 % (47-70); POSITIVE DIFFERENTIAL YES; POSITIVE MORPHOLOGY YES; Platelet Count 312 K/mm3 (150-450); RBC Distribution Width CV 16.2 % (11.6-14.6); RBC Distribution Width SD 50.6 fl (35.1-43.9); Red Blood Count 3.63 M/mm3 (4.2-5.4); White Blood Count 19.6 K/mm3 (4.4-11.0)
[2024-01-07 06:22] LABS: Differential Indicated SCAN CRITERIA MET
[2024-01-07] MEDS: Cefepime HCl 2 GM in 0.9% Normal Saline (100mL MB+) 100 ML IV ×3 (06:50→21:42)
[2024-01-07 07:00] LABS: ALB/GLOB Ratio 0.7 RATIO (0.9-2.4); AST(SGOT) 29 U/L (15-37); Alanine Aminotransfer ALT/SGPT 16 U/L (13-56); Albumin, Serum 3.1 g/dL (3.2-5.0); Alkaline Phosphatase 69 U/L (45-117); Anion Gap 12 (5-15); BUN 22 mg/dL (7-18); BUN/Creat Ratio 17.6 RATIO (10-20); Chloride 104 mmol/L (98-107); Creatinine, Serum 1.25 mg/dL (0.55-1.02); EST Glomerular Filtration Rate 49 mL/min (>60); Est Glom Filt Rate - Afr Amer 60 mL/min (>60); Globulin 4.7 g/dL (2.2-4.2); Glucose 153 mg/dL (74-106); Magnesium 1.8 mg/dL (1.6-2.6); Phosphorus 3.9 mg/dL (2.5-4.9); Potassium 4.1 mmol/L (3.5-5.1); Protein, Total 7.8 g/dL (6.4-8.2); Sodium Level 138 mmol/L (136-145); Thyroid Stim Hormone (TSH) 0.297 uIU/mL (0.358-3.740)
[2024-01-07 07:12] LABS: Differential Comment SCANNED
[2024-01-07] MEDS: Carvedilol 6.25 MG Tablet PO (09:25)
[2024-01-07] MEDS: Pantoprazole Sodium 20 MG Tablet PO (09:25)
[2024-01-07] MEDS: Fluoxetine HCl 40 MG CAPSULE PO (09:25)
[2024-01-07] MEDS: Furosemide 40 MG/4 ML Vial IV (09:25)
[2024-01-07] MEDS: guaiFENesin 1,200 MG Tablet 1200 MG PO ×2 (09:25→21:39)
[2024-01-07] MEDS: Enoxaparin 40 MG/0.4 ML Syringe SC (09:25)
[2024-01-07] MEDS: Atorvastatin Calcium 20 MG Tablet PO (09:25)
[2024-01-07] MEDS: FLUoxetine 20 MG Capsule PO (09:26)
[2024-01-07] MEDS: Ranolazine 500 MG Tablet PO (09:26)
[2024-01-07] MEDS: Pregabalin 75 MG Capsule PO ×2 (09:32→21:48)
[2024-01-07] MEDS: Montelukast 10 MG Tablet PO (09:33)
[2024-01-07] MEDS: 0.9% Saline Lock 10 ML Syringe IV (09:33)
[2024-01-07] MEDS: Morphine 2 MG/ML Syringe IV (09:38)
[2024-01-07] MEDS: Azithromycin 500 MG in Dextrose 5%-Water (250mL Bag) 250 ML 250 MG IV (09:39)
--- NOTE | 2024-01-07 10:52 | EX.PCM.CONCC ---
Assessment & Plan Assessment/Plan (1) Acute respiratory failure with hypoxia: (2) Pneumonia: PLAN: Plan RECOMMENDATIONS: 1. Continue assist-control mode mechanical ventilation. Wean FiO2 and PEEP as tolerated. 2. Propofol and fentanyl for sedation. 3. Place PICC line. 4. Obtain and send sputum for culture. 5. Follow-up ABG in 1 hour. 6. Continue empiric antibiotics. 7. Continue bronchodilators and IV steroids. 8. Check ADAM with reflex, ANCA and CCP antibodies IMPRESSIONS: 1. Acute respiratory failure with hypoxemia and hypercapnia Clinical concern for evolving ARDS related to pneumonia. The patient demonstrated increased work of breathing despite the use of noninvasive positive pressure ventilatory support, and was ultimately intubated. Plan to continue assist-control mode mechanical ventilation and wean FiO2/PEEP to maintain saturations at or above 90%. The patient will be maintained on empiric broad-spectrum antimicrobials. Sputum will be obtained and sent for culture. In addition, the patient will be maintained on scheduled bronchodilators and IV steroids. Will check ADAM with reflex along with ANCA and CCP antibodies. 2. History of heart failure with preserved ejection fraction/COPD of unclear severity Continue current supportive measures including scheduled bronchodilators and steroids. Continue attempts at gentle diuresis to maintain euvolemic state, as tolerated by hemodynamics and renal function. 3. History of tobacco dependency/chronic pain syndrome/obesity/history of respiratory failure requiring tracheostomy Complicates care, management, recovery and prognosis. Continue supportive measures as noted above. We will plan to initiate tube feeding beginning tomorrow. TIME: 37 minutes of critical care time, independent of procedures, was spent addressing the patient's acute respiratory failure with hypoxemia and hypercapnia, review of all data and collaboration with the care team. HPI Consult Data Date of Consult: 01/07/24 HPI Narrative Reason for Consultation: Acute hypoxemic respiratory failure HPI Narrative: The patient is a 43-year-old female, with a history as outlined below, who presented to the emergency department via EMS on January 05 with reported shortness of breath of several days duration. The patient has an apparent history of respiratory failure related to ARDS secondary to pneumonia, which required tracheostomy at [facility] 1 year ago. She is followed on an outpatient basis by Dr. Janine Robertson of [facility] pulmonary medicine. On presentation to the emergency department, the patient was documented to be afebrile hemodynamically stable. Laboratory evaluation revealed an elevated white blood cell count to 17,000. Hemoglobin was low at 10.4 g/dL, which is chronic in nature. Arterial blood gas demonstrated a pH of 7.38 with a pCO2 of 37 and pO2 of 80. Chemistry profile was notable for a creatinine of 1.28. Lactate was within normal limits at 1.1. BNP and troponin were within normal limits. CTA chest showed no evidence for pulmonary embolism. However, diffuse bilateral groundglass changes were noted. Respiratory viral panel was negative. COVID, influenza and RSV PCR's were negative. Strep and urine Legionella antigens were negative. The patient was subsequently placed on bronchodilators, IV steroids and broad-spectrum antimicrobials. She was admitted to the progressive care unit for further management. Over the course of her hospitalization, to date, the patient has demonstrated worsening respiratory failure/hypoxemia. Follow-up ABG this morning demonstrated evidence of CO2 retention and the patient appeared more fatigued. She did report worsening shortness of breath. Given these findings, the patient was initiated on BiPAP and ultimately transferred to the medical intensive care unit, where she was intubated. [facility] Medical History CKD stage 3b, GFR 30-44 ml/min Anxiety Depression Kidney stones Kidney disease GERD (gastroesophageal reflux disease) Asthma Congestive heart failure (CHF) CHF (congestive heart failure) TIA (transient ischemic attack) (~2001) History of stroke (~2001) Non-rheumatic tricuspid valve insufficiency DDD (degenerative disc disease) History of bicuspid aortic valve Essential hypertension History of DVT of lower extremity History of pulmonary embolus (PE) Colitis Cough Chest pain Thrush Normochromic normocytic anemia Borderline personality disorder Pulmonary hypertension Seizure disorder ARDS (adult respiratory distress syndrome) Acute respiratory failure with hypoxia Hematemesis Leiomyosarcoma Syringomyelia Migraine Exercise-induced asthma Arthritis Anxiety disorder Fibromyalgia AI (aortic insufficiency) Home Medications ?Medication ?Instructions ?Recorded ?Last Taken ?Type medroxyprogesterone 150 mg/mL 150 mg IM .[id number] control 03/15/16 3 Weeks Ago History intramuscular syringe ~06/19/20 albuterol sulfate 90 mcg/actuation 1 puff inhalation Q4H PRN Sob &/Or 10/02/16 01/06/24 History aerosol inhaler Wheezing albuterol sulfate 2.5 mg/3 mL 2.5 mg (3 mL) inhalation Q4H PRN 04/15/19 01/06/24 Rx (0.083 %) solution for nebulization breathing #25 vials fluoxetine 40 mg capsule 40 mg PO DAILY DEPRESSION 07/10/20 01/06/24 History oxaprozin 600 mg tablet 600 mg PO BID pain 07/10/20 01/06/24 History carvedilol 6.25 mg tablet 6.25 mg PO BID blood pressure 11/06/23 01/06/24 History lisinopril 30 mg tablet 30 mg PO DAILY blood pressure 11/06/23 01/06/24 History montelukast 10 mg tablet 10 mg PO DAILY allergies 11/06/23 01/06/24 History ranolazine 500 mg tablet,extended 500 mg PO BID chest pain 11/06/23 01/06/24 History release,12 hr atorvastatin 20 mg tablet 20 mg PO DAILY cholesterol 12/29/23 01/06/24 History pregabalin 300 mg capsule 300 mg PO Q12H nerve pain 12/29/23 01/06/24 History ferrous gluconate 324 mg (38 mg 324 mg PO DAILY #30 tabs 01/01/24 01/06/24 Rx iron) tablet baclofen 10 mg tablet 10 mg PO TID 01/06/24 01/06/24 History budesonide-formoterol HFA 160 2 puff inhalation DAILY 01/06/24 01/06/24 History mcg-4.5 mcg/actuation aerosol inhaler (Symbicort) fluoxetine 20 mg tablet 20 mg PO DAILY 01/06/24 01/06/24 History omeprazole 20 mg capsule,delayed 20 mg PO DAILY 01/06/24 01/06/24 History release Allergy/AdvReac Type Severity Reaction Status Date / Time amitriptyline Allergy Other Verified 12/29/23 20:55 amoxicillin (Amoxicillin) Allergy Rash Verified 12/29/23 20:55 erythromycin base Allergy Rash Verified 12/29/23 20:55 (Erythromycin Base) hydroxyzine Allergy Rash Verified 12/10/23 10:24 levofloxacin (From Levaquin) Allergy Swelling Verified 12/29/23 20:55 milnacipran Allergy Other Verified 12/29/23 20:55 milnacipran HCl (From Allergy Other Verified 12/29/23 20:55 Savella) celecoxib (From Celebrex) AdvReac Other Verified 12/29/23 20:55 diphenhydramine HCl (From AdvReac muscle Verified 12/29/23 20:55 Benadryl) spasms duloxetine HCl (From AdvReac Other Verified 12/29/23 20:55 Cymbalta) meloxicam AdvReac Swelling Verified 12/29/23 20:55 of legs/chest pain Family History Mother Cancer, Onset Age: 36 Breast CVA (cerebral vascular accident) CAD (coronary artery disease), Onset Age: 46 Myocardial infarction x2 Grandmother CAD (coronary artery disease) COPD (chronic obstructive pulmonary disease) Diabetes Surgical History History of right hip replacement History of adenoidectomy History of bilateral knee replacement History of left heart catheterization (LHC) (~01/31/17) History of atrial septal defect repair (~12/04/00) H/O aortic valve repair (~12/04/00) Social History Smoking Status: Current every day smoker tobacco type: cigarettes alcohol intake: current details: occasional substance use type: does not use ROS Review of Systems ROS Unobtainable: due to endotracheal tube Physical Exam Const Constitutional Narrative: The patient is now intubated, sedated and mechanically ventilated. HEENT normocephalic and head/scalp atraumatic Mouth: endotracheal tube in place and OG tube in place Eyes PERRL, EOMs intact bilaterally and conjunctivae normal Neck supple General: trachea midline Chest inspection of chest normal Resp Effort and Inspection: tachypneic and labored Auscultation: rales and diminished lung sounds Cardio S1 normal heart sound and S2 normal heart sound Rate: tachycardic GI normal to inspection, nondistended, normoactive bowel sounds Extremity no clubbing, cyanosis or edema Skin no rashes or lesions noted Neuro CN's II-XII intact bilaterally and no focal motor deficits Lab / Micro Data 01/07/24 05:52 01/07/24 05:52 Labs: Laboratory Results - last 24 hr 01/06/24 11:00: WBC 17.7 H, RBC 3.78 L, Hgb 10.4 L, Hct 32.5 L, MCV 86.0, MCH 27.5, MCHC 32.0, RDW Std Deviation 49.7 H, RDW Coeff of Beto 15.9 H, Plt Count 322, MPV 11.5, Immature Gran % (Auto) 1.400 H, Neut % (Auto) 80.8 H, Lymph % (Auto) 6.6 L, [place] % (Auto) 8.4, Eos % (Auto) 2.3, Baso % (Auto) 0.5, Absolute Neuts (auto) 14.3 H, Absolute Lymphs (auto) 1.17, Nucleated RBC % 0.1, PT 15.7 H, INR 1.3, APTT 28.8, Sodium Cancelled 01/06/24 11:00: Sodium 137, Potassium Cancelled 01/06/24 11:00: Potassium 4.0, Chloride Cancelled 01/06/24 11:00: Chloride 104, Carbon Dioxide Cancelled 01/06/24 11:00: Carbon Dioxide 23.0, Anion Gap Cancelled 01/06/24 11:00: Anion Gap 10, BUN Cancelled 01/06/24 11:00: BUN 19 H, Creatinine Cancelled 01/06/24 11:00: Creatinine 1.28 H, Estim Creat Clear Calc Cancelled 01/06/24 11:00: Estim Creat Clear Calc 60.76, Est GFR (MDRD) Af Amer Cancelled 01/06/24 11:00: Est GFR (MDRD) Af Amer 58 L, Est GFR (MDRD) Non-Af Cancelled 01/06/24 11:00: Est GFR (MDRD) Non-Af 48 L, BUN/Creatinine Ratio Cancelled 01/06/24 11:00: BUN/Creatinine Ratio 14.8, Glucose Cancelled 01/06/24 11:00: Glucose 136 H, Calcium Cancelled 01/06/24 11:00: Calcium 9.0, Total Bilirubin 0.50, Direct Bilirubin 0.08, AST 42 H, ALT 20, Alkaline Phosphatase 78, Troponin I High Sens 7, B-Natriuretic Peptide 59.2, Total Protein 7.5, Albumin 3.2, Globulin 4.3 H 01/06/24 11:10: Lactic Acid 1.1 01/06/24 16:25: Troponin I High Sens 5 01/06/24 19:10: Troponin I High Sens 5 01/06/24 22:55: Troponin I High Sens 5 01/07/24 05:52: WBC 19.6 H, RBC 3.63 L, Hgb 10.0 L, Hct 31.6 L, MCV 87.1, MCH 27.5, MCHC 31.6 L, RDW Std Deviation 50.6 H, RDW Coeff of Beto 16.2 H, Plt Count 312, MPV 12.0, Immature Gran % (Auto) 2.100 H, Neut % (Auto) 70.3 H, Lymph % (Auto) 5.4 L, [place] % (Auto) 5.8, Eos % (Auto) 16.1 H, Baso % (Auto) 0.3, Absolute Neuts (auto) 13.8 H, Absolute Lymphs (auto) 1.05, Nucleated RBC % 0.1, Differential Comment SCANNED, Sodium 138, Potassium 4.1, Chloride 104, Carbon Dioxide 22.0, Anion Gap 12, BUN 22 H, Creatinine 1.25 H, Estim Creat Clear Calc 62.30, Est GFR (MDRD) Af Amer 60, Est GFR (MDRD) Non-Af 49 L, BUN/Creatinine Ratio 17.6, Glucose 153 H, Calcium 9.0, Phosphorus 3.9, Magnesium 1.8, Total Bilirubin 0.40, AST 29, ALT 16, Alkaline Phosphatase 69, Total Protein 7.8, Albumin 3.1 L, Globulin 4.7 H, Albumin/Globulin Ratio 0.7 L, TSH 0.297 L Micro: Microbiology 01/06/24 21:00 Urine, Random Legionella Antigen - Final 01/06/24 21:00 Urine, Random Streptococcus pneumoniae Antigen (M - Final 01/06/24 15:48 Mucosa - Nasopharyngeal Respiratory Panel (PCR) - Final 01/06/24 11:42 Mucosa - Nasopharyngeal SARS-CoV-2, Influenza & RSV (PCR) - Final ABG Data ABG results: ABG 01/06/24 14:31 Specimen Type ART Sample Site R Radial pH 7.38 Bicarbonate Actual 22.0 Total CO2 23 Base Excess -3 L O2 Saturation 96 O2 % 7.0 ABG pCO2 37.3 ABG pO2 80 O2 Delivery Device HFNC Vent Mode Not entered Imaging Radiology Impression Chest X-Ray 01/06/24 10:54 IMPRESSION: Findings suggestive of CHF. Stable elevation of the right hemidiaphragm. Electronically Signed: Tenzin Persaud MD at 12:01 EDT , Chest CTA 01/06/24 11:01 IMPRESSION: No evidence of pulmonary embolism. Findings in keeping with CHF. Electronically Signed: Tenzin Persaud MD at 13:31 EDT , Charges/Coding Procedures Hospitalists Procedures: [id number] Critical Care 1st Hr
--- NOTE | 2024-01-07 10:57 | RAD_ITS ---
STUDY: X-RAY CHEST REASON FOR EXAM: Female, 43 years old. Worsening shortness of breath TECHNIQUE: 2 AP portable views COMPARISON: 01/06/2024 FINDINGS: EKG leads overlie the chest Lungs are underexpanded. Chronic elevation of the right hemidiaphragm noted. Persistent diffuse interstitial edema noted. No interval change since the previous study. Sternal cerclage wires and vascular clips are present from a prior sternotomy and coronary artery bypass graft procedure (CABG). Normal mediastinum and neyda. Normal visualized pulmonary arteries. Normal visualized aortic arch and descending thoracic aorta. Normal visualized thoracic spine. Normal visualized ribs, clavicles, and shoulders. There is no demonstrated abnormality of the visualized soft tissue structures of the upper abdomen. RAD/Chest 1 View (Portable) IMPRESSION: No interval change Electronically Signed: Preet Oropeza MD at 12:08 EDT ,
[2024-01-07 11:25] LABS: Procalcitonin 0.13 ng/mL (0.00-0.09)
[2024-01-07 11:54] LABS: Allen Test Positive; Base Excess -3 mmol/L (-2 to +2); Bicarbonate 23.2 mmol/L (22-26); Blood Gas Specimen Type ART; Mode Not entered; O2 Delivery Device BiPAP; PO2 59 mmHG (75-100); SITE L Radial; SO2 87 % (95-99); Total Carbon Dioxide 25 mmol/L; pCO2 48.5 mmHg (35-45); pH 7.29 (7.35-7.45)
[2024-01-07] MEDS: Propofol 10MG/Ml 1,000 MG/100 ML Bottle 5.7 MG CONT INF (12:32)
[2024-01-07] MEDS: Etomidate 20 MG/10 ML Vial IV (12:32)
[2024-01-07] MEDS: Midazolam 2 MG/2 ML Syringe 5 MG IV (12:32)
[2024-01-07] MEDS: fentaNYL drip 100 ML 5 MCG CONT INF (12:32)
--- NOTE | 2024-01-07 12:56 | PRO.PCM_ITS ---
Procedure Report Date of Procedure: 01/07/24 Intubation note: Patient had evidence of respiratory distress as she had increasing work of b reathing on BiPAP with max oxygen requirements with saturations in only the low 90s. Decision was made to proceed with intubation. RT, nursing and Dr. Robertson with pulmonology were present at the bedside. Administered 4 mg of Versed initially for sedation. Patient had an anterior airway that was difficult to access along with clamping of the teeth. Administered succinylcholine with improvement of clamping. She was then successfully intubated. 7.5 mm tube was used with glidescope for airway visualization. Direct visualization of tube passing through vocal cords was noted, and patient had both positive color change and bilateral breath sounds noted on auscultation. Tube secured at 26 mm at the lip. Dr. Robertson and RT assisted with ventilator settings after intubation. Post-intubation CXR will be obtained. Procedures Hospitalists Procedures: [id number] Insert Emergency Airway
--- NOTE | 2024-01-07 12:56 | PCM.PN.HOSP ---
Reason for Visit Reason for Visit: Diagnoses Elevated white blood cell count, unspecified (01/06/24) Acute respiratory failure with hypoxia (01/06/24) Abnormal electrocardiogram [ECG] [EKG] (01/06/24) Subjective Subjective Saw patient at bedside earlier this morning and again later in the morning. Unfortunately, she had worsening oxygen saturations on BiPAP with increased work of breathing noted by later in the morning and was transferred up to the ICU for further management. Was intubated around noon today. Notably was confirmed both yesterday on admission and prior to intubation today that patient was agreeable to intubation with mechanical ventilation. Objective Data Objective Data Vital Signs: Vital Signs Temp Pulse Resp BP Pulse Ox O2 Del Method O2 Flow Rate 97.4 F L 83 22 H 127/85 H 92 Bi-pap 45 01/07/24 11:00 01/07/24 11:00 01/07/24 11:00 01/07/24 11:00 01/07/24 11:00 01/07/24 11:00 01/07/24 03:40 FiO2 55 01/07/24 07:55 Oxygen Flow Rate (L/min) 45 Oxygen Delivery Method Bi-pap Weight: 95 kg Body Mass Index (BMI) 37.0 Intake & Output: Intake and Output for Last 24 Hours 01/05/24 01/06/24 01/07/24 23:59 23:59 23:59 Intake Total 1922.5 / 1922.5 630 / 630 Output Total 1100 / 1100 400 / 400 Balance 822.5 / 822.5 230 / 230 Lab / Micro Data 01/07/24 05:52 01/07/24 05:52 Labs: Laboratory Results - last 24 hr 01/06/24 16:25: Troponin I High Sens 5 01/06/24 19:10: Troponin I High Sens 5 01/06/24 22:55: Troponin I High Sens 5 01/07/24 05:52: WBC 19.6 H, RBC 3.63 L, Hgb 10.0 L, Hct 31.6 L, MCV 87.1, MCH 27.5, MCHC 31.6 L, RDW Std Deviation 50.6 H, RDW Coeff of Beto 16.2 H, Plt Count 312, MPV 12.0, Immature Gran % (Auto) 2.100 H, Neut % (Auto) 70.3 H, Lymph % (Auto) 5.4 L, [place] % (Auto) 5.8, Eos % (Auto) 16.1 H, Baso % (Auto) 0.3, Absolute Neuts (auto) 13.8 H, Absolute Lymphs (auto) 1.05, Nucleated RBC % 0.1, Differential Comment SCANNED, Sodium 138, Potassium 4.1, Chloride 104, Carbon Dioxide 22.0, Anion Gap 12, BUN 22 H, Creatinine 1.25 H, Estim Creat Clear Calc 62.30, Est GFR (MDRD) Af Amer 60, Est GFR (MDRD) Non-Af 49 L, BUN/Creatinine Ratio 17.6, Glucose 153 H, Calcium 9.0, Phosphorus 3.9, Magnesium 1.8, Total Bilirubin 0.40, AST 29, ALT 16, Alkaline Phosphatase 69, Total Protein 7.8, Albumin 3.1 L, Globulin 4.7 H, Albumin/Globulin Ratio 0.7 L, Procalcitonin 0.13 H, TSH 0.297 L Micro: Microbiology 01/06/24 21:00 Urine, Random Legionella Antigen - Final 01/06/24 21:00 Urine, Random Streptococcus pneumoniae Antigen (M - Final 01/06/24 15:48 Mucosa - Nasopharyngeal Respiratory Panel (PCR) - Final 01/06/24 11:42 Mucosa - Nasopharyngeal SARS-CoV-2, Influenza & RSV (PCR) - Final ABG Data ABG results: ABG 01/06/24 01/07/24 14:31 11:51 Specimen Type ART ART Sample Site R Radial L Radial pH 7.38 7.29 L Bicarbonate Actual 22.0 23.2 Total CO2 23 25 Base Excess -3 L -3 L O2 Saturation 96 87 L O2 % 7.0 55.0 ABG pCO2 37.3 48.5 H ABG pO2 80 59 L Chris Test Positive O2 Delivery Device HFNC BiPAP Vent Mode Not entered Not entered Radiography Diagnostic Testing: Radiology Impression Chest CTA 01/06/24 11:01 IMPRESSION: No evidence of pulmonary embolism. Findings in keeping with CHF. Electronically Signed: Tenzin Persaud MD at 13:31 EDT , Echocardiogram 01/06/24 14:04 Interpretation Summary The left ventricular ejection fraction is 55 %. Mild to moderate (1-2+) tricuspid valve insufficiency. Right ventricular systolic pressure estimated to be 48 mmHg. Mild diffuse aortic valve thickening. Mild aortic stenosis. Prominent posterior pericardial fat pad versus small pleural effusion. Marked turbulence noted in descending thoracic aorta. Recommend CT scan of the chest for further evaluation of the pericardium as well as the descending thoracic aorta. Ordering Physician: Marlee Gonzalez Performed By: Giovanna Glynn RDCS Chest X-Ray 01/07/24 10:57 IMPRESSION: No interval change Electronically Signed: Preet Oropeza MD at 12:08 EDT , Physical Exam Const no apparent distress Constitutional Narrative: Intubated and sedated. Not currently following commands. Obese. General Appearance: cooperative HEENT normocephalic, head/scalp atraumatic and nasal mucous membranes and turbinates normal Eyes conjunctivae normal Neck supple Chest inspection of chest normal Resp Resp Narrative: Intubated. Significantly diminished breath sounds in bilateral lungs, worse in the bases. Crackles noted. No wheezing noted. Cardio regular rate, regular rhythm, no murmurs and peripheral pulses 2+ throughout GI normal to inspection, nondistended, normoactive bowel sounds, soft to palpation, non-tender and non-distended Back/Spine normal ROM Extremity normal to inspection and no pedal edema Skin no rashes or lesions noted Assessment & Plan Assessment/Plan (1) Acute respiratory failure with hypoxia: (2) Leukocytosis: (3) Pneumonia: PLAN: Plan Patient is a 43-year-old female who presented to [facility] ED on 01/06/2024 with worsening shortness of breath. 1. Acute respiratory failure with hypoxia and hypercapnia, history of respiratory failure of unclear cause requiring tracheostomy placement and subsequent removal ? Cager Operator following. Presented with shortness of breath and was noted to be hypoxic in the ED, is not on home oxygen. CTA chest showed diffuse bilateral groundglass opacities involving both lungs in the upper and lower lobes, no PE. On review, CT chest in August 2023 was essentially clear. Patient notably was hospitalized at [place] for about 1 month in October-November 2022 with similar presentation; required tracheostomy placement and that has since been removed. Developed worsening hypoxia with increased work of breathing on BiPAP on 01/06, was transferred up to the ICU and intubated on 01/06. Unclear etiology of current respiratory failure. Clinically there is concern for evolving ARDS related to pneumonia. Sputum culture obtained postintubation and is pending. Will continue empiric broad-spectrum antibiotics, IV steroids and scheduled bronchodilators that were started on admission. ADAM with reflex, ANCA and CCP antibodies ordered. On propofol and fentanyl for sedation. PICC line placed for pressor support as needed. 2. Leukocytosis ? WBC count 17 on admit, mildly increased to 19 on hospital day 2. Presumed secondary to respiratory failure above. Treating with antibiotics and steroids as above. Monitor daily CBC. 3. Chronic mild anemia ? Hemoglobin 10.4 on admit, stable at baseline around 10. 4. CKD stage II-III ? Creatinine 1.25 on admit, stable at baseline around 1.2-1.3. Monitor daily BMP. 5. History of HFpEF/hypertension/hyperlipidemia ? Had concern for possible volume overload due to CHF given CT chest findings on admit. However, presentation seems more consistent with ARDS of unclear etiology. Echo on 01/05 showed EF 55%, normal diastolic dysfunction, normal RV, elevated RVSP of 48 mmHg, no other significant abnormalities. Continue treatment as above. Holding home BP meds. Continue home statin. Chronic medical conditions: ? Obesity: BMI 37 on admit. Complicates hospital course, care and prognosis. ? Anxiety/depression/fibromyalgia/chronic back pain: Continue home Lyrica at reduced dose of 75 mg twice daily. Continue home baclofen. Other home medications on hold while intubated. ? History of bicuspid aortic valve and ASD with repair: 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 with no issues on echo on this admission. ? GERD: Continue home PPI. ? Remote history of DVT/PE: Not on anticoagulation. Continue Lovenox for DVT prophylaxis. ? Tobacco abuse: Reported smoking about 5 cigarettes daily but had quit about 1 week prior to this admission. DVT prophylaxis: Lovenox CODE STATUS: Full code, verified Expected disposition: TBD Total clinical time spent by myself addressing the patient's medical issues, reviewing all the data, and collaborating with patient's care team: 50 minutes. Charges/Coding Visit Charges Inpatient E&M: 18000 Subs Hosp L3
--- NOTE | 2024-01-07 13:02 | RAD_ITS ---
STUDY: X-RAY CHEST REASON FOR EXAM: Female, 43 years old. Endotracheal tube and NG tube placement. TECHNIQUE: Single frontal view of the chest on 2 images. COMPARISON: Earlier in the day. FINDINGS: Endotracheal tube tip approximately 1.5 cm above the joseluis and can be retracted at least 1.5-2 centimeters. NG tube coiled in the left upper quadrant of the stomach with the tip projected below the image. Low volume inspiration with marked elevation of the right hemidiaphragm, unchanged. Increase in bilateral diffuse parenchymal opacities, particularly in the right lower lobe and left upper lobe. Background diffuse interstitial prominence remains relatively unchanged. There is no demonstrated pleural abnormality. Normal size heart. Normal mediastinum and neyda. Normal visualized pulmonary arteries. Normal visualized aortic arch and descending thoracic aorta. No abnormality of the visualized soft tissue structures of the upper abdomen. RAD/CXR for Line Placement IMPRESSION: Placement of ETT and NG tube. Tip of ETT can be withdrawn at least 1.5-2 cm as it is close to the joseluis. Substantial increase in parenchymal opacities in the right lower lobe and left upper lobe with diffuse interstitial prominence, relatively unchanged. Electronically Signed: Mason Dolan MD at 13:30 EDT ,
[2024-01-07 13:36] LABS: Base Excess -3 mmol/L (-2 to +2); Bicarbonate 23.8 mmol/L (22-26); Blood Gas Specimen Type ART; Mode Not entered; O2 Delivery Device Not entered; PEEP 5; PO2 196 mmHG (75-100); RR 16; SITE R Radial; SO2 100 % (95-99); Total Carbon Dioxide 25 mmol/L; pCO2 53.2 mmHg (35-45); pH 7.26 (7.35-7.45)
--- NOTE | 2024-01-07 15:12 | CASEMGMT ---
RN CM chart review: Patient was admitted 12/29-01/01/24 for acute renal failure and hypotension. See RN CM assessment from 12/30/23. Patient was discharged to home with follow-up plans in place. Patient returned to [facility] ED on 01/06/24 for increased SOB and had SPO2 in the 60s-70s and was placed on 6lpm. CTA showed diffuse bilateral groundglass appearance involving both lungs in the upper and lower lobes, suggestive of a CHF. Patient was to follow with PCP within 1 week. Patient was transferred to ICU and is currently intubated. CM will monitor progress with care, may need home oxygen at discharge is able to DC home. Disposition TBD. CM will continue to follow this patient and plan for a safe discharge.
--- NOTE | 2024-01-07 15:16 | PRO.PCM_ITS ---
Procedure Report Date of Procedure: 01/07/24 Assessment & Plan Assessment/Plan (1) Acute respiratory failure with hypoxia: Procedures Radiology Radiology Access Procedures: PICC Procedure Time Out Time Out Informed consent given: Yes Consent signed: Yes Time out checklist: patient, procedure, site marked/identified, positioning of patient, supplies available and allergies confirmed Time out verified: Yes Time out date: 01/07/24 Time out time: 14:20 PICC Line Consent Screening tool completed:: Yes Consent obtained:: Yes Consent given by (patient or responsible constitution party):: FATHER Line successful (if no, document why in comments):: Yes Insertion Reason for Insertion: Poor Venous Access Date of Insertion: 01/07/24 Ok to use: Yes Type of PICC inserted: Dual Power PICC PICC Lot #: [id number] PICC Reference #: [id number] Microintroducer Used: Yes (in kit) Ultrasound/Equipment Used: Probe Cover Kit Trimmed Length (cm): 43 Insertion Length (cm): 43 Exposed Length (cm): 0 Tip Placement: Caval Atrial Junction Placement Confirmation: 3CG Insertion Vein: Right Basilic Insertion Attempts: 1 Local Anesthesia Used: Lidocaine 1% (in kit) Dressing Applied: Statlock and Tegaderm CHG Arm Measurement above site (in cm): 32 Patient Tolerated Procedure: Well Threading Difficulties: No Comments Comment: Patient identity was verified with two patient identifiers. Informed consent was obtained and time-out was completed. Hands were sanitized. The patient was positioned supine with right arm at 90 degrees. The patient's upper arm vasculature was assessed using ultrasound. Patency of the right basilic vein was confirmed and the vein was externally marked. An external measurement was obtained of 43 cm. External leads were applied to the patient's right upper chest and laterally and inferior of the umbilicus on the mid axillary line. Cap, mask, and prep gloves were donned. The underdrape was placed under the patient's arm. The site was prepped with chlorhexidine, and tourniquet was loosely applied. Prep gloves were discarded, and hands were sanitized. The sterile kit was opened with additional supplies dropped in. Sterile gown and gloves were donned, and the patient was draped. The sterile kit was assembled with needle, introducer, needless connectors, and each catheter lumen flushed with sterile normal saline. The marked site of insertion was anesthetized with 1% lidocaine from the kit. Patient tolerated well. The right basilic vein was then accessed using ultrasound guidance and guidewire was inserted to safety riya. The tourniquet was released. The access needle was removed while securing the guidewire in place. The site was again anesthetized with 1% lidocaine, prior to insertion of introducer sheath and dilator. Patient tolerated the insertion well. The catheter was trimmed to a length of 43 cm. Using 3CG guidance, the catheter was then inserted through the introducer sheath, slowly. There was no resistance on insertion. The catheter followed the expected course of the vessel using 3CG tracking. Maximal p-wave, without deflection, confirming placement in the cavoatrial junction, was obtained at an insertion l ength of 43 cm, leaving 0 cm external. The introducer sheath was retracted and peeled away, incrementally, while keeping the catheter secured. The stylet was removed. A flushed needleless connector was attached to each catheter lumen. Aspiration of the lumen was performed to remove any air and confirm blood return. Blood return was verified and each lumen was flushed with 10 ml of sterile normal saline in a pulsatile fashion. The each lumen was clamped with the last pulsed flush. Total sterile flushes used for the insertion was (7) 10 ml syringes, (2) from the kit. Finally, the insertion site was cleaned with chlorhexidine, and the catheter was secured using a StatLock. The site was covered with a Tegaderm CHG Dressing and disinfecting caps were applied. Baseline arm circumference was obtained at the insertion site and measured 32 cm. The patient was provided with a patient education handout on PICC line care of infection prevention, heavy lifting restriction, maintaining mobility, and watching for any signs of infection. The primary nurse is aware that the PICC line is ready for use.
[2024-01-07 15:24] LABS: CPK Total, Creatine Kinase 135 U/L (26-192); Triglycerides 114 mg/dL
[2024-01-07] MEDS: CHLORHEXIDINE GLUC 2% CLOTH 1 EACH TOWELETTE TOPICAL (17:53)
[2024-01-07 18:42] LABS: Rheumatoid Factor < 10.0 IU/mL (<15)
[2024-01-07] MEDS: Propofol 10MG/Ml 1,000 MG/100 ML Bottle 11.4 MG CONT INF (18:54)
[2024-01-07] MEDS: Chlorhexidine 15 ML PO (21:40)
[2024-01-08] VITALS (37 sets, daily range): BP systolic 86–164; BP diastolic 53–110; PULSE 14–97; RESP 14–27; TEMP 36.6–37.3; O2SAT 93–97; BMI 37.8
[2024-01-08] MEDS: Propofol 10MG/Ml 1,000 MG/100 ML Bottle 11.4 MG CONT INF (00:09)
[2024-01-08] MEDS: CHLORHEXIDINE GLUC 2% CLOTH 1 EACH TOWELETTE TOPICAL ×2 (00:44→10:11)
[2024-01-08] MEDS: fentaNYL drip 100 ML 7.5 MCG CONT INF ×2 (03:00→16:20)
[2024-01-08] MEDS: Ipratropium/Albuterol Sulfate 3 ML AMPUL.NEB INHALATION ×6 (03:10→23:18)
[2024-01-08 04:15] LABS: Basophil# 0.03 X10^3/uL; Basophil% 0.2 % (0-1); Hemoglobin 8.6 g/dL (12.0-15.0); Lymphocyte % 5.4 % (19-41); Mean Corp Hgb Conc 30.7 g/dL (32-36); Mean Corpuscular Hgb 27.4 pg (27.0-32.0); Mean Corpuscular Volume 89.2 fL (81-99); Mean Platelet Vol. 11.6 fl (6.2-12.0); Monocyte# 1.24 X10^3/uL; Monocyte% 7.4 % (0-10); NRBC Flagged by Analyzer 0 % (0-5); Neutrophil # 14.03 X10^3/uL (2.7-7.7); Neutrophil % 83.8 % (47-70); Platelet Count 254 K/mm3 (150-450); RBC Distribution Width CV 16.3 % (11.6-14.6); RBC Distribution Width SD 52.3 fl (35.1-43.9); Red Blood Count 3.14 M/mm3 (4.2-5.4); White Blood Count 16.7 K/mm3 (4.4-11.0)
[2024-01-08 04:38] LABS: Anion Gap 10 (5-15); BUN 42 mg/dL (7-18); BUN/Creat Ratio 22.2 RATIO (10-20); Calcium,Total 8.7 mg/dL (8.5-10.1); Chloride 105 mmol/L (98-107); Creatinine, Serum 1.89 mg/dL (0.55-1.02); EST Glomerular Filtration Rate 31 mL/min (>60); Est Glom Filt Rate - Afr Amer 37 mL/min (>60); Estimated Creatinine Clearance 41.66 ml/min; Glucose 151 mg/dL (74-106); Magnesium 1.8 mg/dL (1.6-2.6); Potassium 3.9 mmol/L (3.5-5.1); Sodium Level 138 mmol/L (136-145)
[2024-01-08 04:39] LABS: Vancomycin, Trough Level 40.3 ug/mL (5.0-15.0)
--- NOTE | 2024-01-08 04:48 | PCM.RX.CS ---
Consult Antibiotic Management Pharmacy has been consulted to manage selected antibiotic: Vancomycin Type of Intervention Type of Consult: Follow-up Suspected Infection Suspected Infection: Pneumonia Labs Labs: Sodium 138 mmol/L (136-145) 01/08/24 04:06 Potassium 3.9 mmol/L (3.5-5.1) 01/08/24 04:06 Chloride 105 mmol/L (98-107) 01/08/24 04:06 Carbon Dioxide 23.0 mmol/L (21.0-32.0) 01/08/24 04:06 Anion Gap 10 (5-15) 01/08/24 04:06 BUN 42 mg/dL (7-18) H 01/08/24 04:06 Creatinine 1.89 mg/dL (0.55-1.02) H 01/08/24 04:06 Est GFR (MDRD) Af Amer 37 mL/min (>60) L 01/08/24 04:06 Est GFR (MDRD) Non-Af 31 mL/min (>60) L 01/08/24 04:06 BUN/Creatinine Ratio 22.2 RATIO (10-20) H 01/08/24 04:06 Glucose 151 mg/dL (74-106) H 01/08/24 04:06 Vancomycin Trough 40.3 ug/mL (5.0-15.0) H 01/08/24 04:06 Microbiology Microbiology: Microbiology 01/06/24 21:00 Urine, Random Legionella Antigen - Final 01/06/24 21:00 Urine, Random Streptococcus pneumoniae Antigen (M - Final 01/06/24 15:48 Mucosa - Nasopharyngeal Respiratory Panel (PCR) - Final 01/06/24 11:42 Mucosa - Nasopharyngeal SARS-CoV-2, Influenza & RSV (PCR) - Final Dosing Weight Weight used for dosin.9 kg Estimated Creatinine Clearance Estimated Creatinine Clearance: 42 Goal Trough Goal Trough: 15-20 mcg/mL Pharmacy Plan for Drug Dosing Pharmacy Plan for Drug Dosing: Vancomycin trough level, drawn 10.25hrs post-dose, of 40.3 was high. This is owing partly to decrease in renal clearance (SCr from 1.25 to 1.89). Current dosing will be held. A random vanco level will be drawn in 12 hours and further dosing determined from that result. Pharmacy Service will continue to monitor and adjust dosing as required. Follow-Up Labs Follow-Up Labs: Trough: Vancomycin (random) Date/Time Labs Ordered Labs to be done on [date and time ordered]: 01/08/24 @1600 (random)
[2024-01-08] MEDS: Baclofen 10 MG Tablet PO ×3 (05:25→21:20)
[2024-01-08] MEDS: 0.9% Saline Lock 10 ML Syringe IV ×2 (05:25→14:35)
[2024-01-08] MEDS: Cefepime HCl 2 GM in 0.9% Normal Saline (100mL MB+) 100 ML IV ×3 (05:26→21:20)
--- NOTE | 2024-01-08 07:13 | PCM.PN.INT ---
Assessment & Plan Assessment/Plan (1) Acute respiratory failure with hypoxia: (2) Pneumonia: PLAN: Plan RECOMMENDATIONS: 1. Continue assist-control mode of mechanical ventilation. Wean FiO2 and PEEP as tolerated. 2. Continue propofol and fentanyl for sedation. 3. Continue empiric antimicrobials. 4. Continue bronchodilators and IV steroids. 5. Autoimmune workup is pending. 6. Okay to initiate tube feeding today. 7. Continue appropriate ICU prophylaxis. IMPRESSIONS: 1. Acute respiratory failure with hypoxemia and hypercapnia Clinical concern for evolving ARDS related to pneumonia. The patient demonstrated increased work of breathing despite the use of noninvasive positive pressure ventilatory support, and was ultimately intubated on January 06. Plan to continue assist-control mode mechanical ventilation and wean FiO2/PEEP to maintain saturations at or above 90%. The patient will be maintained on empiric broad-spectrum antimicrobials. Sputum culture and autoimmune workup are pending. The patient will be maintained on scheduled bronchodilators and IV steroids, as well. 2. History of heart failure with preserved ejection fraction/COPD of unclear severity Continue current supportive measures including scheduled bronchodilators and steroids. Continue attempts at gentle diuresis to maintain euvolemic state, as tolerated by hemodynamics and renal function. 3. History of tobacco dependency/chronic pain syndrome/obesity/history of respiratory failure requiring tracheostomy Complicates care, management, recovery and prognosis. Continue supportive measures as noted above. Okay to initiate tube feeding today. TIME: 33 minutes of critical care time, independent of procedures, was spent addressing the patient's acute respiratory failure with hypoxemia and hypercapnia, review of all data and collaboration with the care team. Subjective Subjective The patient was seen and examined at the bedside this morning. Events from the last 24 hours have been reviewed. The patient is currently afebrile, hemodynamically stable and maintaining appropriate oxygen saturations on assist-control mode mechanical ventilation with an FiO2 requirement of 45% and PEEP of 5. The patient underwent successful PICC line placement yesterday. She is appropriately sedated on propofol and fentanyl. White blood cell count remains elevated at 17,000. Hemoglobin this morning was noted to be 8.6 g/dL with a normal platelet count. Creatinine has increased to 1.89. Objective Data Objective Data The patient's most recent lab work, culture data and imaging studies have all been personally reviewed. Surface echocardiogram demonstrated normal LV size and thickness with an ejection fraction of 55%. Right ventricular systolic pressure was estimated to be 48 mmHg. Blood and sputum cultures are pending. Vital Signs: Vital Signs Temp Pulse Resp BP Pulse Ox O2 Del Method O2 Flow Rate 98.1 F 68 16 100/53 L 94 Mechanical Ventilator 45 01/08/24 07:00 01/08/24 07:00 01/08/24 07:00 01/08/24 07:00 01/08/24 07:00 01/08/24 07:00 01/07/24 03:40 FiO2 45 01/08/24 07:00 Oxygen Flow Rate (L/min) 45 Oxygen Delivery Method Mechanical Ventilator Weight: 213 lb 10.047 oz Body Mass Index (BMI) 37.8 Intake & Output: Intake and Output for Last 24 Hours 01/06/24 01/07/24 01/08/24 23:59 23:59 23:59 Intake Total 1922.5 / 1922.5 1354.72 / 1373.62 299.47 / 299.47 Output Total 1100 / 1100 875 / 1051 349 / 349 Balance 822.5 / 822.5 479.72 / 322.62 -49.53 / -49.53 Lab / Micro Data Attestation: I reviewed the patient's lab results. 01/08/24 04:06 01/08/24 04:06 Labs: Laboratory Results - last 24 hr 01/07/24 05:52: Total Creatine Kinase 135, Triglycerides 114, Procalcitonin 0.13 H 01/07/24 17:55: Rheumatoid Factor < 10.0 01/08/24 04:06: WBC 16.7 H, RBC 3.14 L, Hgb 8.6 L, Hct 28.0 L, MCV 89.2, MCH 27.4, MCHC 30.7 L, RDW Std Deviation 52.3 H, RDW Coeff of Beto 16.3 H, Plt Count 254, MPV 11.6, Immature Gran % (Auto) 3.200 H, Neut % (Auto) 83.8 H, Lymph % (Auto) 5.4 L, Cloud % (Auto) 7.4, Eos % (Auto) 0.0, Baso % (Auto) 0.2, Absolute Neuts (auto) 14.0 H, Absolute Lymphs (auto) 0.90, Nucleated RBC % 0, Sodium 138, Potassium 3.9, Chloride 105, Carbon Dioxide 23.0, Anion Gap 10, BUN 42 H, Creatinine 1.89 H, Estim Creat Clear Calc 41.66, Est GFR (MDRD) Af Amer 37 L, Est GFR (MDRD) Non-Af 31 L, BUN/Creatinine Ratio 22.2 H, Glucose 151 H, Calcium 8.7, Phosphorus 4.0, Magnesium 1.8, Vancomycin Trough 40.3 H Micro: Microbiology 01/06/24 21:00 Urine, Random Legionella Antigen - Final 01/06/24 21:00 Urine, Random Streptococcus pneumoniae Antigen (M - Final 01/06/24 15:48 Mucosa - Nasopharyngeal Respiratory Panel (PCR) - Final 01/06/24 11:42 Mucosa - Nasopharyngeal SARS-CoV-2, Influenza & RSV (PCR) - Final ABG Data ABG results: ABG 01/07/24 01/07/24 11:51 13:32 Specimen Type ART ART Sample Site L Radial R Radial pH 7.29 L 7.26 L Bicarbonate Actual 23.2 23.8 Total CO2 25 25 Base Excess -3 L -3 L O2 Saturation 87 L 100 H O2 % 55.0 100.0 ABG pCO2 48.5 H 53.2 H ABG pO2 59 L 196 H Chris Test Positive Respiration Rate 16 O2 Delivery Device BiPAP Not entered Vent Mode Not entered Not entered Tidal Volume 400.0 POC PEEP 5 Radiography Diagnostic Testing: Radiology Impression Echocardiogram 01/06/24 14:04 Interpretation Summary The left ventricular ejection fraction is 55 %. Mild to moderate (1-2+) tricuspid valve insufficiency. Right ventricular systolic pressure estimated to be 48 mmHg. Mild diffuse aortic valve thickening. Mild aortic stenosis. Prominent posterior pericardial fat pad versus small pleural effusion. Marked turbulence noted in descending thoracic aorta. Recommend CT scan of the chest for further evaluation of the pericardium as well as the descending thoracic aorta. Ordering Physician: Marlee Gonzalez Performed By: Giovanna Glynn RDCS Chest X-Ray 01/07/24 10:57 IMPRESSION: No interval change Electronically Signed: Preet Oropeza MD at 12:08 EDT , Chest X-Ray 01/07/24 13:02 IMPRESSION: Placement of ETT and NG tube. Tip of ETT can be withdrawn at least 1.5-2 cm as it is close to the joseluis. Substantial increase in parenchymal opacities in the right lower lobe and left upper lobe with diffuse interstitial prominence, relatively unchanged. Electronically Signed: Mason Dolan MD at 13:30 EDT , Physical Exam Const Constitutional Narrative: Intubated, sedated and mechanically ventilated. No ventilator dyssynchrony noted. HEENT normocephalic and head/scalp atraumatic Mouth: endotracheal tube in place and OG tube in place Eyes PERRL, EOMs intact bilaterally and conjunctivae normal Neck supple General: trachea midline Chest inspection of chest normal Resp Auscultation: rales and diminished lung sounds Cardio regular rate, regular rhythm, S1 normal heart sound and S2 normal heart sound GI normal to inspection, nondistended, normoactive bowel sounds Extremity no clubbing, cyanosis or edema Skin no rashes or lesions noted Neuro Sensorium / Orientation: sedated on vent Charges/Coding Procedures Hospitalists Procedures: 79071 Critical Care 1st Hr
[2024-01-08] MEDS: Propofol 10MG/Ml 1,000 MG/100 ML Bottle 11.6 MG CONT INF ×3 (07:32→23:18)
[2024-01-08] MEDS: Pantoprazole Sodium 40 MG in 0.9% Normal Saline (100mL MB+) 100 ML 330 MG IV (10:06)
[2024-01-08] MEDS: Pregabalin 75 MG Capsule PO ×2 (10:07→21:20)
[2024-01-08] MEDS: Furosemide 40 MG/4 ML Vial IV (10:07)
[2024-01-08] MEDS: Atorvastatin Calcium 20 MG Tablet PO (10:09)
[2024-01-08] MEDS: FLUoxetine 20 MG Capsule PO (10:09)
[2024-01-08] MEDS: Fluoxetine HCl 40 MG CAPSULE PO (10:09)
[2024-01-08] MEDS: Enoxaparin 40 MG/0.4 ML Syringe SC (10:09)
[2024-01-08] MEDS: Montelukast 10 MG Tablet PO (10:10)
[2024-01-08] MEDS: Ferrous Gluconate 324 MG Tablet PO (10:10)
[2024-01-08] MEDS: Chlorhexidine 15 ML PO ×2 (10:12→20:03)
[2024-01-08] MEDS: Azithromycin 500 MG in Dextrose 5%-Water (250mL Bag) 250 ML 250 MG IV (11:03)
[2024-01-08] MEDS: Vital AF 1.2 Cal Liquid 1,000 ML 40 ML GT (11:18)
--- NOTE | 2024-01-08 14:30 | PN.HOSP_ITS ---
Reason for Visit Reason for Visit: Diagnoses Elevated white blood cell count, unspecified (01/06/24) Pneumonia, unspecified organism (01/06/24) Acute respiratory failure with hypoxia (01/06/24) Abnormal electrocardiogram [ECG] [EKG] (01/06/24) Subjective Subjective Patient was seen and examined today, she remains on the ventilator at this time under light sedation. Objective Data Objective Data Vital Signs: Vital Signs Temp Pulse Resp BP Pulse Ox O2 Del Method O2 Flow Rate 97.8 F 14 L 18 161/102 H 96 Mechanical Ventilator 45 01/08/24 12:00 01/08/24 14:28 01/08/24 14:28 01/08/24 12:00 01/08/24 14:28 01/08/24 12:00 01/07/24 03:40 FiO2 45 01/08/24 12:00 Oxygen Flow Rate (L/min) 45 Oxygen Delivery Method Mechanical Ventilator Weight: 96.9 kg Body Mass Index (BMI) 37.8 Intake & Output: Intake and Output for Last 24 Hours 01/06/24 01/07/24 01/08/24 23:59 23:59 23:59 Intake Total 1922.5 / 1922.5 1354.72 / 1373.62 809.97 / 809.97 Output Total 1100 / 1100 875 / 1051 474 / 474 Balance 822.5 / 822.5 479.72 / 322.62 335.97 / 335.97 Lab / Micro Data 01/08/24 04:06 01/08/24 04:06 Labs: Laboratory Results - last 24 hr 01/07/24 05:52: Total Creatine Kinase 135, Triglycerides 114 01/07/24 17:55: Rheumatoid Factor < 10.0 01/08/24 04:06: WBC 16.7 H, RBC 3.14 L, Hgb 8.6 L, Hct 28.0 L, MCV 89.2, MCH 27.4, MCHC 30.7 L, RDW Std Deviation 52.3 H, RDW Coeff of Beto 16.3 H, Plt Count 254, MPV 11.6, Immature Gran % (Auto) 3.200 H, Neut % (Auto) 83.8 H, Lymph % (Auto) 5.4 L, Riley % (Auto) 7.4, Eos % (Auto) 0.0, Baso % (Auto) 0.2, Absolute Neuts (auto) 14.0 H, Absolute Lymphs (auto) 0.90, Nucleated RBC % 0, Sodium 138, Potassium 3.9, Chloride 105, Carbon Dioxide 23.0, Anion Gap 10, BUN 42 H, C reatinine 1.89 H, Estim Creat Clear Calc 41.66, Est GFR (MDRD) Af Amer 37 L, Est GFR (MDRD) Non-Af 31 L, BUN/Creatinine Ratio 22.2 H, Glucose 151 H, Calcium 8.7, Phosphorus 4.0, Magnesium 1.8, Vancomycin Trough 40.3 H Micro: Microbiology 01/07/24 12:50 Sputum, Induced/Lukens Gram Stain - Final 01/07/24 12:50 Sputum, Induced/Lukens Respiratory Culture - Preliminary Culture exhibits no growth. 01/06/24 11:10 Blood Culture (Wb) - Right Hand Blood Culture - Preliminary No growth in 48 hours. 01/06/24 21:00 Urine, Random Legionella Antigen - Final 01/06/24 21:00 Urine, Random Streptococcus pneumoniae Antigen (M - Final 01/06/24 15:48 Mucosa - Nasopharyngeal Respiratory Panel (PCR) - Final 01/06/24 11:42 Mucosa - Nasopharyngeal SARS-CoV-2, Influenza & RSV (PCR) - Final Physical Exam Const no apparent distress and healthy appearing Constitutional Narrative: Patient is under light sedation on the ventilator General Appearance: cooperative, well kempt and well developed Orientation / Consciousness: awake HEENT normocephalic, head/scalp atraumatic and moist oral mucous membranes Eyes PERRL, EOMs intact bilaterally and conjunctivae normal Neck supple, no JVD, thyroid normal and no carotid bruits General: trachea midline Resp normal respiratory effort, no retractions and no use of accessory muscles Resp Narrative: Patient has expiratory rhonchi as well as wheezes scattered bilaterally Auscultation: rhonchi and wheezes; Negative for rales Cardio regular rate, regular rhythm, S1 normal heart sound, S2 normal heart sound, no murmurs, no rub and no gallops GI normal to inspection, nondistended, normoactive bowel sounds, soft to palpation, non-tender and non-distended Extremity no clubbing, cyanosis or edema Skin no rashes or lesions noted General Skin Exam: no breakdown Neuro Neuro Narrative: Patient is under light sedation on the ventilator Assessment & Plan Assessment/Plan (1) Pneumonia: PLAN: Plan 1. Acute combined respiratory failure-pulmonary medicine is participating in her care, she remains on the vent at this time, antibiotics will be continued #2 chronic obstructive pulmonary disease-complicates care, management, recovery, and prognosis, patient is receiving aerosol treatments and corticosteroids #3 mild pulmonary hypertension-complicates care, management, recovery, and prognosis\ #4 essential hypertension-patient remains on hydralazine as needed hypertension, she is also on Lasix at this time #5 chronic depression-patient is on Prozac #6 acute congestive heart failure with preserved ejection fraction-patient is currently on IV Lasix #7 chronic kidney disease stage IIIb-labs will be monitored, complicates care, management, recovery, and prognosis Total clinical time spent by myself addressing the patient's medical issues, reviewing all of her data, and collaborating with patient's care team: 35 minutes Charges/Coding Visit Charges Inpatient E&M: 70310 Subs Hosp L2
[2024-01-08 15:17] LABS: Vancomycin, Random Level 32.3 ug/mL (0.0-15.0)
[2024-01-08] MEDS: 0.9% Normal Saline (250mL Bag) 250 ML 15 ML IV (15:18)
--- NOTE | 2024-01-08 15:46 | PCM.RX.CS ---
Consult Antibiotic Management Pharmacy has been consulted to manage selected antibiotic: Vancomycin Type of Intervention Type of Consult: Follow-up Suspected Infection Suspected Infection: Pneumonia Labs Labs: Sodium 138 mmol/L (136-145) 01/08/24 04:06 Potassium 3.9 mmol/L (3.5-5.1) 01/08/24 04:06 Chloride 105 mmol/L (98-107) 01/08/24 04:06 Carbon Dioxide 23.0 mmol/L (21.0-32.0) 01/08/24 04:06 Anion Gap 10 (5-15) 01/08/24 04:06 BUN 42 mg/dL (7-18) H 01/08/24 04:06 Creatinine 1.89 mg/dL (0.55-1.02) H 01/08/24 04:06 Est GFR (MDRD) Af Amer 37 mL/min (>60) L 01/08/24 04:06 Est GFR (MDRD) Non-Af 31 mL/min (>60) L 01/08/24 04:06 BUN/Creatinine Ratio 22.2 RATIO (10-20) H 01/08/24 04:06 Glucose 151 mg/dL (74-106) H 01/08/24 04:06 Vancomycin Trough 40.3 ug/mL (5.0-15.0) H 01/08/24 04:06 Random Vancomycin 32.3 ug/mL (0.0-15.0) H 01/08/24 14:45 Microbiology Microbiology: Microbiology 01/07/24 12:50 Sputum, Induced/Lukens Gram Stain - Final 01/07/24 12:50 Sputum, Induced/Lukens Respiratory Culture - Preliminary Culture exhibits no growth. 01/06/24 11:10 Blood Culture (Wb) - Right Hand Blood Culture - Preliminary No growth in 48 hours. 01/06/24 21:00 Urine, Random Legionella Antigen - Final 01/06/24 21:00 Urine, Random Streptococcus pneumoniae Antigen (M - Final 01/06/24 15:48 Mucosa - Nasopharyngeal Respiratory Panel (PCR) - Final 01/06/24 11:42 Mucosa - Nasopharyngeal SARS-CoV-2, Influenza & RSV (PCR) - Final Pharmacy Plan for Drug Dosing Pharmacy Plan for Drug Dosing: VANCOMYCIN LEVEL RECEIVED Current Vancomycin Dose: On hold Number of Doses Received: 3 Vancomycin Level: 32.3 mg/dl Hours Since Last Dose: 21 Renal Function: SCr 1.89 mg/dl, CrCl 41 mL/min Renal Function Trend: worsened Lab/Micro: SCx - no growth, BCx - no growth Vancomycin Plan/Comments: 21 hour random level is still supratherapeutic at 32.3 mg/dL (goal 15-20 mg/dL). Will continue holding doses and get a random level in 24 hours Pending Level: 01/09/24 @ 1500 - random Pharmacy Service will continue to monitor and adjust dosing as required.
[2024-01-08] MEDS: Acetaminophen 325 MG Tablet 650 MG PO (19:58)
--- NOTE | 2024-01-08 20:08 | NURSING ---
RN to bedside to check drips and tube feed. Tube feed noted to be running at 15cc/hr, given in report that tube feed running at this rate. Tube feed increased by 10 cc to 25cc per protocol on MAR. Upon documenting this MAR showing rate is decreased from what is was charted previously. MAR showing tube feed was started at 40cc/hr, pump does not indicate this.
[2024-01-09] VITALS (38 sets, daily range): BP systolic 95–177; BP diastolic 61–112; PULSE 71–116; RESP 15–26; TEMP 37.1–37.6; O2SAT 92–97; BMI 37.7
[2024-01-09] MEDS: CHLORHEXIDINE GLUC 2% CLOTH 1 EACH TOWELETTE TOPICAL ×2 (01:32→08:05)
[2024-01-09] MEDS: Ipratropium/Albuterol Sulfate 3 ML AMPUL.NEB INHALATION ×5 (02:18→23:25)
--- NOTE | 2024-01-09 04:38 | CT_ITS ---
EXAM: CT HEAD WITHOUT INTRAVENOUS CONTRAST CLINICAL INDICATION: neurological change TECHNIQUE: Multiple axial images were obtained of the head without intravenous contrast. This CT exam was performed using one or more of the following dose reduction techniques: automated exposure control, adjustment of the mA and/or kV according to patient size, and/or use of iterative reconstruction technique. RADIATION DOSE: CTDIvol = 44.99 mGy, DLP = 846.73 mGy-cm COMPARISON: Head CT 04/23/2019 FINDINGS: BRAIN AND EXTRA-AXIAL SPACES: Unremarkable. No intra- or extra-axial hemorrhage. No evidence of acute infarct. No intracranial mass or mass effect. There is preservation of the guy/white matter interface. Posterior fossa structures are unremarkable. Ventricles are appropriate for age. No hydrocephalus. Basal cisterns are patent. BONES/JOINTS: Unremarkable. No discrete lytic or blastic abnormalities. SINUSES: Unremarkable as visualized. Clear. MASTOID AIR CELLS: Unremarkable. Clear. ORBITS: Visualized globes, extraocular muscles, optic nerves and retrobulbar fat appear unremarkable. CT/Brain/Head without Contrast IMPRESSION: Negative head/brain CT without intravenous contrast. Electronically Signed: Romain Montiel MD at 6:42 EDT ,
--- NOTE | 2024-01-09 04:39 | CT_ITS ---
EXAM: CT CHEST WITH INTRAVENOUS CONTRAST CLINICAL INDICATION: hypoxia TECHNIQUE: Helically acquired images were obtained of the chest with intravenous contrast. This CT exam was performed using one or more of the following dose reduction techniques: automated exposure control, adjustment of the mA and/or kV according to patient size, and/or use of iterative reconstruction technique. CONTRAST: IV 100mL [id number] RADIATION DOSE: CTDIvol = 19.25 mGy, DLP = 579.66 mGy-cm COMPARISON: Single view chest 01/07/2024 and CTA chest 01/06/2024 FINDINGS: LUNGS AND PLEURAL SPACES: Patchy areas of groundglass opacity throughout the pulmonary parenchyma bilaterally. No mass. No pleural effusion or thickening. No pneumothorax. HEART: Unremarkable. Heart size is normal. No pericardial effusion. MEDIASTINUM: Unremarkable. No mediastinal or hilar adenopathy. Esophagus is unremarkable. No hiatal hernia. THYROID: Unremarkable. No thyroid lesions. BONES/JOINTS: Unremarkable. No suspicious lytic or blastic abnormality. VASCULATURE: Unremarkable. Thoracic aorta is non-dilated. No thoracic aortic dissection. No obvious central pulmonary embolism although this study was not performed with the pulmonary embolism protocol. TUBES, LINES AND DEVICES: Endotracheal tube in place. Entericus tube extending into the stomach. CT/Chest WITH Contrast IMPRESSION: Patchy areas of groundglass opacity throughout the pulmonary parenchyma bilaterally. Findings may indicate atypical infection to include COVID. Electronically Signed: Romain Montiel MD at 6:49 EDT ,
--- NOTE | 2024-01-09 04:47 | NURSING ---
0315- pt sedation turned off d/t patient not following commands despite titrating sedation down. Pt remained to awaken to voice but not following commands. 0400- RN bedside assessing pt, pt pupils 4mm, PERRLA. Pt not following commands. Pt with eyes open, blinking, corneal reflex present. Cough/ gag present. Breathing over ventilator. 0418- This RN on phone w/ Dr. Sol expressing concern regarding lack of ability to follow commands when pt monitor started alarming SpO2 59 %, pt HR in 120's. Dr. Santoro notified, recommended this RN defer to tele ICU, and this RN and Ginette Grimm RN to bedside. Ventilator set to 100% x2 and ett/ mouth suctioned. New pulse ox sticker placed on pt, pt. Pt now satting 100%. 0424- Dr. Santoro to bedside, pt remains tachycardic, satting in high 90's to 100. Dr. Santoro given SBAR by this RN. At bedside, pt left foot seeming to invert inward, pt continuing to not follow commands or perform purposeful mvmt. 0426- tele ICU Dr. Jens Groves contacted and filled in on situation. Dr. Groves questioning why this RN is performing an awakening trial at 3am. This RN explained that we do SAT's @ 0400 but since pt was not following commands despite coming down on sedation overnight, I ultimately turned it off. Dr. Groves states he is not convinced that there is anything neurologically acute happening w/ the patient. This RN explained that the previous night the pt was very easily awakened, following commands, answering yes or no questions and standing bedside w/ PT. Informed him that patient pupils were reactive but pt not making eye contact and seemingly staring in the distance. At this time Dr. Groves told this RN to continue to monitor patient and keep sedation off unless pt becomes agitated or desynchrony on the vent. Dr. Groves believes that desat was benign. This RN questioned getting a CT of head d/t neuro status, Dr. Groves disagreed at this time and states he does not find it necessary. 0440- Dr. Santoro still bedside and gives this RN direct verbal order for a CT of head and CTA of chest to r/o neuro issues and PE. Orders placed by this RN. Pt becoming agitated and slamming head back into pillow but continues to not make eye contact, follow commands or purpose truly purposeful mvmt. Dr. Santoro directed this RN to restart sedation at this time. 0445 prop and fentanyl restarted
[2024-01-09] MEDS: Baclofen 10 MG Tablet PO ×2 (06:23→21:41)
[2024-01-09] MEDS: 0.9% Saline Lock 10 ML Syringe IV (06:23)
--- NOTE | 2024-01-09 07:15 | PCM.PN.INT ---
Assessment & Plan Assessment/Plan (1) Acute respiratory failure with hypoxia: (2) Pneumonia: PLAN: Plan RECOMMENDATIONS: 1. Continue assist-control mode of mechanical ventilation. Wean FiO2 and PEEP as tolerated. 2. Continue current sedation regimen. 3. Continue empiric antimicrobials. 4. Continue bronchodilators and IV steroids. 5. Autoimmune workup is pending. 6. Continue tube feeding as tolerated. 7. Continue appropriate ICU prophylaxis. IMPRESSIONS: 1. Acute respiratory failure with hypoxemia and hypercapnia Clinical concern for evolving ARDS related to pneumonia. The patient demonstrated increased work of breathing despite the use of noninvasive positive pressure ventilatory support, and was ultimately intubated on January 06. Plan to continue assist-control mode mechanical ventilation and wean FiO2/PEEP to maintain saturations at or above 90%. The patient will be maintained on empiric broad-spectrum antimicrobials. Sputum culture and autoimmune workup are pending. The patient will be maintained on scheduled bronchodilators and IV steroids, as well. 2. History of heart failure with preserved ejection fraction/COPD of unclear severity Continue current supportive measures including scheduled bronchodilators and steroids. Continue attempts at gentle diuresis to maintain euvolemic state, as tolerated by hemodynamics and renal function. 3. History of tobacco dependency/chronic pain syndrome/obesity/history of respiratory failure requiring tracheostomy Complicates care, management, recovery and prognosis. Continue supportive measures as noted above. Continue tube feeding as tolerated. TIME: 32 minutes of critical care time, independent of procedures, was spent addressing the patient's acute respiratory failure with hypoxemia and hypercapnia, review of all data and collaboration with the care team. Subjective Subjective The patient was seen and examined at the bedside this morning. Events from the last 24 hours have been reviewed. Today is ventilator day #3. The patient is currently afebrile, hemodynamically stable and maintaining appropriate oxygen saturations on assist-control mode of mechanical ventilation with an FiO2 requirement of 35% and PEEP of 5. Overnight, the patient's sedation was weaned. According to nursing staff, the patient did not engage in any purposeful movements, despite her sedation being withheld. In addition, the patient acutely desaturated into the 50s. In response, a CT head was obtained which was negative. In addition, a CT chest was also obtained which was unchanged from that completed on January 05. ABG this morning demonstrated a pH of 7.4 with a pCO2 of 32 and pO2 of 73. Creatinine is increased at 2.09. White count remains elevated at 15,000. Objective Data Objective Data The patient's most recent lab work, culture data and imaging studies have all been personally reviewed. Surface echocardiogram demonstrated normal LV size and thickness with an ejection fraction of 55%. Right ventricular systolic pressure was estimated to be 48 mmHg. Blood and sputum cultures are pending. Vital Signs: Vital Signs Temp Pulse Resp BP Pulse Ox O2 Del Method O2 Flow Rate 98.9 F 72 16 157/102 H 93 Mechanical Ventilator 45 01/09/24 06:00 01/09/24 07:07 01/09/24 07:07 01/09/24 06:00 01/09/24 07:07 01/09/24 07:07 01/07/24 03:40 FiO2 35 01/09/24 07:07 Oxygen Flow Rate (L/min) 45 Oxygen Delivery Method Mechanical Ventilator Weight: 212 lb 15.465 oz Body Mass Index (BMI) 37.7 Intake & Output: Intake and Output for Last 24 Hours 01/07/24 01/08/24 01/09/24 23:59 23:59 23:59 Intake Total 1354.72 / 1373.62 1728.87 / 1839.49 483.89 / 483.89 Output Total 875 / 1051 1339 / 1339 490 / 490 Balance 479.72 / 322.62 389.87 / 500.49 -6.11 / -6.11 Lab / Micro Data Attestation: I reviewed the patient's lab results. 01/09/24 06:13 01/09/24 06:13 Labs: Laboratory Results - last 24 hr 01/08/24 14:45: Random Vancomycin 32.3 H Micro: Microbiology 01/07/24 12:50 Sputum, Induced/Lukens Gram Stain - Final 01/07/24 12:50 Sputum, Induced/Lukens Respiratory Culture - Preliminary Culture exhibits no growth. 01/06/24 11:10 Blood Culture (Wb) - Right Hand Blood Culture - Preliminary No growth in 48 hours. 01/06/24 21:00 Urine, Random Legionella Antigen - Final 01/06/24 21:00 Urine, Random Streptococcus pneumoniae Antigen (M - Final 01/06/24 15:48 Mucosa - Nasopharyngeal Respiratory Panel (PCR) - Final 01/06/24 11:42 Mucosa - Nasopharyngeal SARS-CoV-2, Influenza & RSV (PCR) - Final ABG Data ABG results: ABG 01/07/24 01/07/24 11:51 13:32 Specimen Type ART ART Sample Site L Radial R Radial pH 7.29 L 7.26 L Bicarbonate Actual 23.2 23.8 Total CO2 25 25 Base Excess -3 L -3 L O2 Saturation 87 L 100 H O2 % 55.0 100.0 ABG pCO2 48.5 H 53.2 H ABG pO2 59 L 196 H Chris Test Positive Respiration Rate 16 O2 Delivery Device BiPAP Not entered Vent Mode Not entered Not entered Tidal Volume 400.0 POC PEEP 5 Radiography Diagnostic Testing: Radiology Impression Brain CT 01/09/24 04:38 IMPRESSION: Negative head/brain CT without intravenous contrast. Electronically Signed: Romain Montiel MD at 6:42 EDT Reading Location ID and State: [facility] / [place] Tel , Service support , Chest CT 01/09/24 04:39 IMPRESSION: Patchy areas of groundglass opacity throughout the pulmonary parenchyma bilaterally. Findings may indicate atypical infection to include COVID. Electronically Signed: Romain Montiel MD at 6:49 EDT Reading Location ID and State: [facility] / [place] Tel , Service support , Physical Exam Const Constitutional Narrative: Intubated, sedated and mechanically ventilated. No ventilator dyssynchrony noted. General Appearance: patient mechanically ventilated HEENT normocephalic and head/scalp atraumatic Mouth: endotracheal tube in place and OG tube in place Eyes PERRL and conjunctivae normal Neck supple General: trachea midline Chest inspection of chest normal Resp Auscultation: rales and diminished lung sounds Cardio regular rate, regular rhythm, S1 normal heart sound and S2 normal heart sound GI normal to inspection, nondistended, normoactive bowel sounds Extremity no clubbing, cyanosis or edema Skin no rashes or lesions noted Neuro Sensorium / Orientation: sedated on vent Charges/Coding Procedures Hospitalists Procedures: 84891 Critical Care 1st Hr
[2024-01-09 07:29] LABS: Allen Test Positive; Base Excess -4 mmol/L (-2 to +2); Bicarbonate 20.3 mmol/L (22-26); Blood Gas Specimen Type ART; Mode AC; O2 Delivery Device Adult Vent; PEEP 5; PO2 73 mmHG (75-100); RR 16; SITE R Radial; SO2 95 % (95-99); Total Carbon Dioxide 21 mmol/L; pCO2 31.9 mmHg (35-45); pH 7.41 (7.35-7.45)
[2024-01-09 07:35] LABS: Hematocrit 29.4 % (37-47); Hemoglobin 9.3 g/dL (12.0-15.0); Mean Corp Hgb Conc 31.6 g/dL (32-36); Mean Corpuscular Hgb 27.9 pg (27.0-32.0); Mean Corpuscular Volume 88.3 fL (81-99); Mean Platelet Vol. 12.3 fl (6.2-12.0); POSITIVE COUNT YES; POSITIVE DIFFERENTIAL YES; POSITIVE MORPHOLOGY YES; Platelet Count 266 K/mm3 (150-450); RBC Distribution Width CV 16.3 % (11.6-14.6); RBC Distribution Width SD 51.7 fl (35.1-43.9); Red Blood Count 3.33 M/mm3 (4.2-5.4); White Blood Count 15.7 K/mm3 (4.4-11.0)
[2024-01-09 07:45] LABS: ALB/GLOB Ratio 0.6 RATIO (0.9-2.4); AST(SGOT) 21 U/L (15-37); Alanine Aminotransfer ALT/SGPT 22 U/L (13-56); Albumin, Serum 2.6 g/dL (3.2-5.0); Alkaline Phosphatase 64 U/L (45-117); Anion Gap 10 (5-15); BUN 46 mg/dL (7-18); Calcium,Total 8.6 mg/dL (8.5-10.1); Chloride 105 mmol/L (98-107); Creatinine, Serum 2.09 mg/dL (0.55-1.02); EST Glomerular Filtration Rate 27 mL/min (>60); Est Glom Filt Rate - Afr Amer 33 mL/min (>60); Estimated Creatinine Clearance 37.61 ml/min; Globulin 4.3 g/dL (2.2-4.2); Glucose 136 mg/dL (74-106); Potassium 3.7 mmol/L (3.5-5.1); Protein, Total 6.9 g/dL (6.4-8.2); Sodium Level 137 mmol/L (136-145)
[2024-01-09] MEDS: FLUoxetine 20 MG Capsule PO (07:49)
[2024-01-09] MEDS: Atorvastatin Calcium 20 MG Tablet PO (07:49)
[2024-01-09] MEDS: Fluoxetine HCl 40 MG CAPSULE PO (07:49)
[2024-01-09] MEDS: Montelukast 10 MG Tablet PO (07:50)
[2024-01-09] MEDS: Furosemide 40 MG/4 ML Vial IV (07:50)
[2024-01-09] MEDS: Enoxaparin 40 MG/0.4 ML Syringe SC (07:50)
[2024-01-09 07:53] LABS: Differential Indicated MANUAL DIFF
[2024-01-09] MEDS: Pantoprazole Sodium 40 MG in 0.9% Normal Saline (100mL MB+) 100 ML 330 MG IV (08:08)
[2024-01-09] MEDS: Chlorhexidine 15 ML PO ×2 (08:08→21:41)
[2024-01-09] MEDS: Propofol 10MG/Ml 1,000 MG/100 ML Bottle 2.9 MG CONT INF (08:37)
[2024-01-09 08:46] LABS: Blast 1 % (0-0); Lymphocyte 7 % (19-41); Metamyelocyte 2 % (0-1); Monocyte 8 % (0-10); Myelocyte 3 % (0-0); Neutrophil-Segmented 79 % (47-70); Total Cells Counted 100 (MANUAL DIFF)
[2024-01-09 08:48] LABS: Platelet Morphology GIANT
[2024-01-09 08:50] LABS: Absolute Neutrophil Count 12.4 X10^3/uL (2.0-7.7)
[2024-01-09] MEDS: Cefepime HCl 2 GM in 0.9% Normal Saline (100mL MB+) 100 ML IV ×2 (09:18→21:41)
[2024-01-09] MEDS: Azithromycin 500 MG in Dextrose 5%-Water (250mL Bag) 250 ML 250 MG IV (10:19)
[2024-01-09] MEDS: Ferrous Gluconate 324 MG Tablet PO (12:51)
[2024-01-09] MEDS: fentaNYL drip 100 ML 7.5 MCG CONT INF (12:53)
[2024-01-09] MEDS: Vital AF 1.2 Cal Liquid 1,000 ML 35 ML GT (12:54)
[2024-01-09 13:42] LABS: ANTINUCLEAR ANTIBODIES DIRECT Negative (Negative)
[2024-01-09 14:00] LABS: Pathologist Review Reviewed
[2024-01-09] MEDS: Propofol 10MG/Ml 1,000 MG/100 ML Bottle 14.5 MG CONT INF ×2 (14:11→21:05)
[2024-01-09 16:10] LABS: CCP IgG Antibodies 5 units (0-19); Cytoplasmic Ab (C-ANCA) <1:20 titer (Neg:<1:20); Perinuclear Ab (P-ANCA) <1:20 titer (Neg:<1:20)
--- NOTE | 2024-01-09 17:09 | PN.HOSP_ITS ---
Reason for Visit Reason for Visit: Diagnoses Elevated white blood cell count, unspecified (01/06/24) Pneumonia, unspecified organism (01/06/24) Acute respiratory failure with hypoxia (01/06/24) Abnormal electrocardiogram [ECG] [EKG] (01/06/24) Subjective Subjective Patient was seen and examined today, I talked with critical care about her care, an attempt was made to wean the patient last night and the patient evidently had an episode of unresponsiveness when her sedation was turned down, CT of the brain was obtained which showed no acute process, I talked with the patient's PCPs office today and they stated that the patient's talk screen in August was positive for benzodiazepines and alcohol-the specimen was obtained at 10:00 in the morning. PCPs office also told me that the patient has a history of seeking medications, she is presently seeing pain management but is on no narcotics. She also had a history in the past of a seizure disorder and has not been on antiseizure meds since 2018, according to her PCPs office, an EEG obtained around that time showed no evidence of seizure activity. In reviewing her medical records here from 2016, she was seen in the emergency room complaining of tonic-clonic seizures, it appears that she was on Keppra at 1 time and this was increased and she was instructed to see Dr. Javier the neurologist. Objective Data Objective Data Vital Signs: Vital Signs Temp Pulse Resp BP Pulse Ox O2 Del Method O2 Flow Rate 99.1 F 94 23 H 164/104 H 93 Mechanical Ventilator 45 01/09/24 17:00 01/09/24 17:00 01/09/24 17:00 01/09/24 17:00 01/09/24 17:00 01/09/24 17:00 01/07/24 03:40 FiO2 35 01/09/24 17:00 Oxygen Flow Rate (L/min) 45 Oxygen Delivery Method Mechanical Ventilator Weight: 96.6 kg Body Mass Index (BMI) 37.7 Intake & Output: Intake and Output for Last 24 Hours 01/07/24 01/08/24 01/09/24 23:59 23:59 23:59 Intake Total 1354.72 / 1373.62 1728.87 / 1839.49 1903.50 / 1903.50 Output Total 875 / 1051 1339 / 1339 3340 / 3340 Balance 479.72 / 322.62 389.87 / 500.49 -1436.50 / -1436.50 Lab / Micro Data 01/09/24 06:13 01/09/24 06:13 Labs: Laboratory Results - last 24 hr 01/07/24 17:55: Cycl Citrul Peptide IgG 5, ADAM Screen Negative, c-ANCA Antibody <1:20, Atypical p-ANCA <1:20, p-ANCA Antibody <1:20, ILANA-1 Antibody Not Reportable, SS-A/Ro IgG Antibody Not Reportable, SS-B/La IgG Antibody Not Reportable, Sm (Loya) Antibody Not Reportable, MAINTENANCE [employer] Antibody Not Reportable, Scl-70 Scleroderma Ab Not Reportable, Double Strand DNA Ab Not Reportable, Antichromatin Antibodies Not Reportable, Centromere B Antibody Not Reportable 01/09/24 06:13: WBC 15.7 H, RBC 3.33 L, Hgb 9.3 L, Hct 29.4 L, MCV 88.3, MCH 27.9, MCHC 31.6 L, RDW Std Deviation 51.7 H, RDW Coeff of Beto 16.3 H, Plt Count 266, MPV 12.3 H, Neut % (Auto) Not Reportable, Absolute Neuts (auto) 12.4 H, Absolute Lymphs (auto) 1.10, Total Counted 100, Neutrophils % (Manual) 79 H, L ymphocytes % (Manual) 7 L, Monocytes % (Manual) 8, Metamyelocytes % 2 H, M yelocytes % 3 H, Blast Cells % 1 H*, Diff Path Review Reviewed, Plt Morphology Comment GIANT, Sodium 137, Potassium 3.7, Chloride 105, Carbon Dioxide 22.0, Anion Gap 10, BUN 46 H, Creatinine 2.09 H, Estim Creat Clear Calc 37.61, Est GFR (MDRD) Af Amer 33 L, Est GFR (MDRD) Non-Af 27 L, BUN/Creatinine Ratio 22.0 H, G lucose 136 H, Calcium 8.6, Total Bilirubin 0.30, AST 21, ALT 22, Alkaline Phosphatase 64, Total Protein 6.9, Albumin 2.6 L, Globulin 4.3 H, A lbumin/Globulin Ratio 0.6 L Micro: Microbiology 01/07/24 12:50 Sputum, Induced/Lukens Gram Stain - Final 01/07/24 12:50 Sputum, Induced/Lukens Respiratory Culture - Final Streptococcus group F 01/06/24 11:10 Blood Culture (Wb) - Right Hand Blood Culture - Preliminary No growth in 48 hours. 01/06/24 21:00 Urine, Random Legionella Antigen - Final 01/06/24 21:00 Urine, Random Streptococcus pneumoniae Antigen (M - Final 01/06/24 15:48 Mucosa - Nasopharyngeal Respiratory Panel (PCR) - Final 01/06/24 11:42 Mucosa - Nasopharyngeal SARS-CoV-2, Influenza & RSV (PCR) - Final ABG Data ABG results: ABG 01/09/24 07:23 Specimen Type ART Sample Site R Radial pH 7.41 Bicarbonate Actual 20.3 L Total CO2 21 Base Excess -4 L O2 Saturation 95 O2 % 35.0 ABG pCO2 31.9 L ABG pO2 73 L Chris Test Positive Respiration Rate 16 O2 Delivery Device Adult Vent Vent Mode AC Tidal Volume 400.0 POC PEEP 5 Radiography Diagnostic Testing: Radiology Impression Brain CT 01/09/24 04:38 IMPRESSION: Negative head/brain CT without intravenous contrast. Electronically Signed: Romain Montiel MD at 6:42 EDT , Chest CT 01/09/24 04:39 IMPRESSION: Patchy areas of groundglass opacity throughout the pulmonary parenchyma bilaterally. Findings may indicate atypical infection to include COVID. Electronically Signed: Romain Montiel MD at 6:49 EDT , Physical Exam Narrative no apparent distress and healthy appearing Constitutional Narrative: Patient is under sedation on the ventilator General Appearance: cooperative, well kempt and well developed Orientation / Consciousness: Patient is sedated and on the ventilator HEENT normocephalic, head/scalp atraumatic and moist oral mucous membranes Eyes Conjunctiva normal Neck supple, no JVD, thyroid normal and no carotid bruits General: trachea midline Resp normal respiratory effort, no retractions and no use of accessory muscles Resp Narrative: Patient has expiratory rhonchi as well as wheezes scattered bilaterally Auscultation: rhonchi and wheezes; Negative for rales Cardio regular rate, regular rhythm, S1 normal heart sound, S2 normal heart sound, no murmurs, no rub and no gallops GI normal to inspection, nondistended, normoactive bowel sounds, soft to palpation, non-tender and non-distended Extremity no clubbing, cyanosis or edema Skin no rashes or lesions noted General Skin Exam: no breakdown Neuro Neuro Narrative: Patient is under sedation on the ventilator Assessment & Plan Assessment/Plan (1) Acute respiratory failure with hypoxia: (2) Pneumonia: PLAN: Plan 1. Acute combined respiratory failure-pulmonary medicine is participating in her care, she remains on the vent at this time, antibiotics will be continued #2 chronic obstructive pulmonary disease-complicates care, management, recovery, and prognosis, patient is receiving aerosol treatments and corticosteroids #3 mild pulmonary hypertension-complicates care, management, recovery, and prognosis\ #4 essential hypertension-patient remains on hydralazine as needed hypertension, she is also on Lasix at this time #5 chronic depression-patient is on Prozac #6 acute congestive heart failure with preserved ejection fraction-patient is currently on IV Lasix #7 chronic kidney disease stage IIIb-labs will be monitored, complicates care, management, recovery, and prognosis, creatinine today was 2.09 Total clinical time spent by myself addressing the patient's medical issues, reviewing all of her data, and collaborating with patient's care team: 35 minutes Charges/Coding Visit Charges Inpatient E&M: 68776 Subs Hosp L2
--- NOTE | 2024-01-09 19:16 | PCM.RX.CS ---
Consult Antibiotic Management Pharmacy has been consulted to manage selected antibiotic: Vancomycin Type of Intervention Type of Consult: Follow-up Suspected Infection Suspected Infection: Pneumonia Prior Doses of Antibiotics Prior Doses of Antibiotics Received/Current Regimen: 1250mg iv q12h with last dose 01.07.24 @1752. Labs Labs: Sodium 137 mmol/L (136-145) 01/09/24 06:13 Potassium 3.7 mmol/L (3.5-5.1) 01/09/24 06:13 Chloride 105 mmol/L (98-107) 01/09/24 06:13 Carbon Dioxide 22.0 mmol/L (21.0-32.0) 01/09/24 06:13 Anion Gap 10 (5-15) 01/09/24 06:13 BUN 46 mg/dL (7-18) H 01/09/24 06:13 Creatinine 2.09 mg/dL (0.55-1.02) H 01/09/24 06:13 Est GFR (MDRD) Af Amer 33 mL/min (>60) L 01/09/24 06:13 Est GFR (MDRD) Non-Af 27 mL/min (>60) L 01/09/24 06:13 BUN/Creatinine Ratio 22.0 RATIO (10-20) H 01/09/24 06:13 Glucose 136 mg/dL (74-106) H 01/09/24 06:13 Vancomycin Trough 40.3 ug/mL (5.0-15.0) H 01/08/24 04:06 Random Vancomycin 22.0 ug/mL (0.0-15.0) H 01/09/24 17:00 Microbiology Microbiology: Microbiology 01/07/24 12:50 Sputum, Induced/Lukens Gram Stain - Final 01/07/24 12:50 Sputum, Induced/Lukens Respiratory Culture - Final Streptococcus group F 01/06/24 11:10 Blood Culture (Wb) - Right Hand Blood Culture - Preliminary No growth in 48 hours. 01/06/24 21:00 Urine, Random Legionella Antigen - Final 01/06/24 21:00 Urine, Random Streptococcus pneumoniae Antigen (M - Final 01/06/24 15:48 Mucosa - Nasopharyngeal Respiratory Panel (PCR) - Final 01/06/24 11:42 Mucosa - Nasopharyngeal SARS-CoV-2, Influenza & RSV (PCR) - Final Dosing Weight Weight used for dosin.8 kg Estimated Creatinine Clearance Estimated Creatinine Clearance: 38 ml/min Goal Trough Goal Trough: 15-20 mcg/mL Pharmacy Plan for Drug Dosing Pharmacy Plan for Drug Dosing: Random vancomycin level today @1700 remains high at 22.0. This was ~49 hrs post dose. Previous level was 32.3 yesterday. Will continue to hold any further dosing. New random level ordered for tomorrow AM. Dosing to restart when level </=20. Pharmacy Service will continue to monitor and adjust dosing as required. Follow-Up Labs Follow-Up Labs: Trough: Vancomycin (random level 8.17.24 @0600)
[2024-01-09] MEDS: Pregabalin 75 MG Capsule PO (21:41)
[2024-01-09] MEDS: hydrALAZINE 20 MG/ML Vial 10 MG IV (21:41)
[2024-01-10] VITALS (38 sets, daily range): BP systolic 92–194; BP diastolic 60–104; PULSE 74–115; RESP 14–28; TEMP 37.2–37.6; O2SAT 14–100; BMI 37.0
[2024-01-10] MEDS: fentaNYL drip 100 ML 10 MCG CONT INF (01:25)
[2024-01-10] MEDS: Ipratropium/Albuterol Sulfate 3 ML AMPUL.NEB INHALATION ×6 (02:41→22:54)
[2024-01-10] MEDS: Propofol 10MG/Ml 1,000 MG/100 ML Bottle 17.4 MG CONT INF ×2 (02:58→08:50)
[2024-01-10] MEDS: Baclofen 10 MG Tablet PO (06:13)
[2024-01-10] MEDS: 0.9% Saline Lock 10 ML Syringe IV ×3 (06:13→21:35)
[2024-01-10] MEDS: Vancomycin Trough/Random Due 1 LAB MC (06:21)
--- NOTE | 2024-01-10 07:17 | PCM.RX.CS ---
Consult Antibiotic Management Pharmacy has been consulted to manage selected antibiotic: Vancomycin Type of Intervention Type of Consult: Follow-up Suspected Infection Suspected Infection: Pneumonia Prior Doses of Antibiotics Prior Doses of Antibiotics Received/Current Regimen: Vancomycin 1250 mg given 01/07/24 @ 1752 Labs Labs: Sodium 137 mmol/L (136-145) 01/09/24 06:13 Potassium 3.7 mmol/L (3.5-5.1) 01/09/24 06:13 Chloride 105 mmol/L (98-107) 01/09/24 06:13 Carbon Dioxide 22.0 mmol/L (21.0-32.0) 01/09/24 06:13 Anion Gap 10 (5-15) 01/09/24 06:13 BUN 46 mg/dL (7-18) H 01/09/24 06:13 Creatinine 2.09 mg/dL (0.55-1.02) H 01/09/24 06:13 Est GFR (MDRD) Af Amer 33 mL/min (>60) L 01/09/24 06:13 Est GFR (MDRD) Non-Af 27 mL/min (>60) L 01/09/24 06:13 BUN/Creatinine Ratio 22.0 RATIO (10-20) H 01/09/24 06:13 Glucose 136 mg/dL (74-106) H 01/09/24 06:13 Vancomycin Trough 40.3 ug/mL (5.0-15.0) H 01/08/24 04:06 Random Vancomycin 14.0 ug/mL (0.0-15.0) 01/10/24 06:10 Microbiology Microbiology: Microbiology 01/07/24 12:50 Sputum, Induced/Lukens Gram Stain - Final 01/07/24 12:50 Sputum, Induced/Lukens Respiratory Culture - Final Streptococcus group F 01/06/24 11:10 Blood Culture (Wb) - Right Hand Blood Culture - Preliminary No growth in 48 hours. 01/06/24 21:00 Urine, Random Legionella Antigen - Final 01/06/24 21:00 Urine, Random Streptococcus pneumoniae Antigen (M - Final 01/06/24 15:48 Mucosa - Nasopharyngeal Respiratory Panel (PCR) - Final 01/06/24 11:42 Mucosa - Nasopharyngeal SARS-CoV-2, Influenza & RSV (PCR) - Final Dosing Weight Weight used for dosin kg Estimated Creatinine Clearance Estimated Creatinine Clearance: ~38 Goal Trough Goal Trough: 15-20 mcg/mL Pharmacy Plan for Drug Dosing Pharmacy Plan for Drug Dosing: Vancomycin random level = 14.0, 60 hours after last dose. New dose 1000 mg IV Q24H starting this AM. Pharmacy Service will continue to monitor and adjust dosing as required. Follow-Up Labs Follow-Up Labs: Trough: Vancomycin Date/Time Labs Ordered Labs to be done on [date and time ordered]: 01/12/24 @ 0700
[2024-01-10 08:20] LABS: Hematocrit 29.5 % (37-47); Hemoglobin 9.4 g/dL (12.0-15.0); Mean Corp Hgb Conc 31.9 g/dL (32-36); Mean Corpuscular Hgb 27.7 pg (27.0-32.0); Mean Platelet Vol. 12.1 fl (6.2-12.0); POSITIVE COUNT YES; POSITIVE MORPHOLOGY YES; Platelet Count 287 K/mm3 (150-450); RBC Distribution Width CV 16.5 % (11.6-14.6); Red Blood Count 3.39 M/mm3 (4.2-5.4); White Blood Count 14.2 K/mm3 (4.4-11.0)
[2024-01-10] MEDS: CHLORHEXIDINE GLUC 2% CLOTH 1 EACH TOWELETTE TOPICAL (08:20)
[2024-01-10] MEDS: Vancomycin IV 1,000 MG/200 ML BAG 200 MG IV (08:21)
[2024-01-10] MEDS: Chlorhexidine 15 ML PO ×2 (08:21→20:43)
[2024-01-10 08:23] LABS: Differential Indicated MANUAL DIFF
[2024-01-10] MEDS: Furosemide 40 MG/4 ML Vial IV (08:33)
[2024-01-10 08:34] LABS: Anion Gap 5 (5-15); BUN 41 mg/dL (7-18); BUN/Creat Ratio 31.3 RATIO (10-20); Calcium,Total 8.8 mg/dL (8.5-10.1); Chloride 109 mmol/L (98-107); Creatinine, Serum 1.31 mg/dL (0.55-1.02); EST Glomerular Filtration Rate 47 mL/min (>60); Est Glom Filt Rate - Afr Amer 56 mL/min (>60); Estimated Creatinine Clearance 59.45 ml/min; Glucose 177 mg/dL (74-106); Potassium 3.8 mmol/L (3.5-5.1); Sodium Level 142 mmol/L (136-145)
[2024-01-10] MEDS: Enoxaparin 40 MG/0.4 ML Syringe SC (08:34)
[2024-01-10] MEDS: Atorvastatin Calcium 20 MG Tablet PO (08:34)
[2024-01-10] MEDS: Fluoxetine HCl 40 MG CAPSULE PO (08:35)
[2024-01-10] MEDS: FLUoxetine 20 MG Capsule PO (08:36)
[2024-01-10] MEDS: Montelukast 10 MG Tablet GT (08:37)
[2024-01-10] MEDS: Azithromycin 500 MG in Dextrose 5%-Water (250mL Bag) 250 ML 250 MG IV (08:50)
[2024-01-10] MEDS: 0.9% Normal Saline (250mL Bag) 250 ML 15 ML IV (08:50)
[2024-01-10] MEDS: Pantoprazole Sodium 40 MG in 0.9% Normal Saline (100mL MB+) 100 ML 330 MG IV (08:51)
[2024-01-10] MEDS: Cefepime HCl 2 GM in 0.9% Normal Saline (100mL MB+) 100 ML IV ×2 (08:51→20:50)
[2024-01-10 08:52] LABS: Lymphocyte 10 % (19-41); Metamyelocyte 2 % (0-1); Monocyte 10 % (0-10); Myelocyte 1 % (0-0); Neutrophil-Band 1 % (0-5); Neutrophil-Segmented 76 % (47-70); Nucleated Red Bld Cells,Manual 1 % (0-5); Platelet Estimate ADEQUATE (ADEQ); Red Cell Morphology NORM C+C NORMAL (NORM C&C); Total Cells Counted 100 (MANUAL DIFF)
[2024-01-10 08:53] LABS: Absolute Lymphocyte Count 1.41 X10^3/uL (0.83-4.51); Absolute Neutrophil Count 10.9 X10^3/uL (2.0-7.7)
[2024-01-10] MEDS: Pregabalin 75 MG Capsule PO ×2 (09:13→20:49)
--- NOTE | 2024-01-10 09:20 | NURSING ---
Held propofol and fentanyl for vent weaning trial, within ten minutes Dr. Muñoz came on tele visit. Patient tachycardic and tachypnea. Head continually moving both on and off sedation. Not following commands or responding to voice. Pupils reactive to light, corneal relfex absent. Cough and gag present. Babinksi sign present in L foot, absent in R foot. RASS -4 due to patient not making eye contact or responding to voice/pain. Per Dr. Muñoz, keep sedation running based on patient presentation.
--- NOTE | 2024-01-10 10:02 | PCM.PN.TICU ---
Objective Data Objective Data Vital Signs: Vital Signs Last response Temperature 37.4 C H 01/10/24 09:00 Temperature Source Core 01/10/24 09:00 Pulse Rate 104 H 01/10/24 09:00 Pulse Strength Normal (2+) 01/09/24 08:25 Respiratory Rate 21 H 01/10/24 09:00 Respiratory Effort Mechanically Ventilated 01/10/24 04:00 Respiratory Depth Normal 01/10/24 04:00 Respiratory Pattern Normal 01/10/24 06:42 Blood Pressure 194/101 H 01/10/24 09:00 Blood Pressure Mean 132 01/10/24 09:00 Blood Pressure Source Monitor 01/10/24 09:00 Blood Pressure Position Semi-Fowlers 01/10/24 09:00 Blood Pressure Location Left Arm 01/10/24 09:00 Pulse Ox 100 01/10/24 09:00 Oxygen Delivery Method Bi-pap 01/10/24 09:00 Oxygen Flow Rate (L/min) 45 01/07/24 03:40 Fraction of Inspired Oxygen (FIO2) 35 01/10/24 09:00 I&O: I&O Last 24 Hours 01/09/24 01/09/24 01/10/24 11:59 23:59 11:59 Intake Total 1179.04 / 2552.60 1269.21 / 2552.60 910.92 / 910.92 Output Total 490 / 3565 3075 / 3565 850 / 850 Balance 689.04 / -1012.40 -1805.79 / -1012.40 60.92 / 60.92 I&O: Total Stay 01/06/24 10:48 thru 01/10/24 09:23 Intake Total 8365.26 Output Total 7729 Balance 636.26 Current Meds Ordered / Administered: Current meds ordered / Administered Generic Name Dose Route Start Last Admin Trade Name Freq PRN Reason Stop Dose Admin Acetaminophen 650 mg 01/10/24 07:38 Acetaminophen 325 Mg Tablet GT Q6H PRN PRN Pain 1-10 Or Fever>100.7 Albuterol Sulfate 2.5 mg 01/06/24 13:59 Albuterol 2.5 Mg/3 Ml Vial.Neb. INHALATION Q2H PRN PRN SHORTNESS OF BREATH Albuterol/Ipratropium 3 ml 01/06/24 14:00 01/10/24 06:41 Ipratropium/Albuterol Sulfate 3 Ml Ampul.Neb INHALATION 3 ml Q4H.RT SADE Administration Atorvastatin Calcium 20 mg 01/07/24 10:00 01/10/24 08:34 Atorvastatin Calcium 20 Mg Tablet PO 20 mg DAILY SADE Administration Baclofen 10 mg 01/10/24 14:00 Baclofen 10 Mg Tablet GT TID SADE Chlorhexidine Gluconate 1 each 01/08/24 10:00 01/10/24 08:20 Chlorhexidine Gluc 2% Cloth 1 Each Towelette TOPICAL 1 each DAILY SADE Administration Chlorhexidine Gluconate 15 ml 01/07/24 22:00 01/10/24 08:21 Chlorhexidine 15 Ml PO 15 ml BID SADE Administration Enoxaparin Sodium 40 mg 01/07/24 10:00 01/10/24 08:34 Enoxaparin 40 Mg/0.4 Ml Syringe SC 40 mg DAILY SADE Administration Ferrous Gluconate 324 mg 01/07/24 12:00 01/09/24 12:51 Ferrous Gluconate 324 Mg Tablet PO 324 mg LUNCH SADE Administration Fluoxetine HCl 40 mg 01/07/24 10:00 01/10/24 08:35 Fluoxetine Hcl 40 Mg Capsule PO 40 mg DAILY SADE Administration Fluoxetine HCl 20 mg 01/07/24 10:00 01/10/24 08:36 Fluoxetine 20 Mg Capsule PO 20 mg DAILY SADE Administration Furosemide 40 mg 01/07/24 10:00 01/10/24 08:33 Furosemide 40 Mg/4 Ml Vial IV 40 mg DAILY SADE Administration Protocol Hydralazine HCl 10 mg 01/06/24 15:56 01/09/24 21:41 Hydralazine 20 Mg/Ml Vial IV 10 mg Q6H PRN PRN Administration sbp> 160 Protocol Azithromycin 500 mg/ Dextrose 255 mls @ 250 mls/hr 01/07/24 10:00 01/10/24 08:50 IV 01/12/24 10:01 250 mls/hr Q24 SADE Administration Vancomycin IV-PHARMACY TO DOSE 500 mls @ 250 mls/hr 01/06/24 13:59 1 each/ Sodium Chloride IV X1 PRN Rx to Dose Protocol Sodium Chloride 250 mls @ 15 mls/hr 01/06/24 19:59 01/10/24 08:50 IV 15 mls/hr .[id number] PRN Administration Additional IVPB Infusion Sodium Chloride 250 mls @ 15 mls/hr 01/06/24 19:59 IV .[id number] PRN Saline Flush Propofol 1,000 mg in 100 mls @ 5.7 mls/hr 01/07/24 12:20 01/10/24 08:50 Diprivan CONT INF 30 mcg/kg/min .Q12H SADE 17.4 mls/hr Administration Protocol 10 MCG/KG/MIN Fentanyl 100 mls @ 5 mls/hr 01/07/24 12:20 01/10/24 07:00 CONT INF 100 mcg/hr UD SADE 10 mls/hr Titration Protocol 50 MCG/HR Pantoprazole Sodium 40 mg/ 110 mls @ 330 mls/hr 01/08/24 10:00 01/10/24 09:11 Sodium Chloride IV Infused Q24 SADE Infusion Enteral Nutritional Formula 1,000 mls @ 40 mls/hr 01/08/24 10:30 01/09/24 20:00 Vital Af 1.2 Kurtis Liquid GT 40 mls/hr .Q25H SADE Infusion Cefepime HCl 2 gm/ Sodium 100 mls @ 200 mls/hr 01/08/24 22:00 01/10/24 09:23 Chloride IV Infused Q12 SADE Infusion Vancomycin HCl 1,000 mg in 200 mls @ 200 mls/hr 01/10/24 07:30 01/10/24 09:23 Vancomycin IV Infused Q24H SADE Infusion Melatonin 3 mg 01/10/24 07:37 Melatonin 3 Mg Tablet GT QHS PRN PRN INSOMNIA Methylprednisolone 40 mg 01/06/24 22:00 01/10/24 06:13 Methylprednisolone 40 Mg/Ml Vial IV 40 mg Q8 SADE Administration Montelukast Sodium 10 mg 01/10/24 10:00 01/10/24 08:37 Montelukast 10 Mg Tablet GT 10 mg DAILY SADE Administration Ondansetron HCl 4 mg 01/06/24 13:59 Ondansetron 4 Mg/2 Ml Vial IV Q8H PRN PRN NAUSEA/VOMITING Pregabalin 75 mg 01/06/24 22:00 01/10/24 09:13 Pregabalin 75 Mg Capsule PO 75 mg Q12H SADE Administration Senna/Docusate Sodium 2 tablet 01/10/24 07:37 Senna/Docusate Sodium 1 Tablet GT BID PRN PRN Constipation Sodium Chloride 10 - 40 ml 01/06/24 19:59 01/10/24 06:13 0.9% Saline Lock 10 Ml Syringe IV 20 ml UD PRN Administration SALINE FLUSH Vancomycin Protocol 1 lab 01/12/24 05:00 Vancomycin Trough/Random Due 01/12/24 09:00 DAILY [facility] Lab / Micro Data 01/10/24 06:10 01/10/24 06:10 Labs: Laboratory Results - last 24 hr 01/07/24 17:55: Cycl Citrul Peptide IgG 5, ADAM Screen Negative, c-ANCA Antibody <1:20, Atypical p-ANCA <1:20, p-ANCA Antibody <1:20, ILANA-1 Antibody Not Reportable, SS-A/Ro IgG Antibody Not Reportable, SS-B/La IgG Antibody Not Reportable, Sm (Loya) Antibody Not Reportable, PROCESS IMPROVEMENT ENGINEER Antibody Not Reportable, Scl-70 Scleroderma Ab Not Reportable, Double Strand DNA Ab Not Reportable, Antichromatin Antibodies Not Reportable, Centromere B Antibody Not Reportable 01/09/24 06:13: Diff Path Review Reviewed 01/09/24 17:00: Random Vancomycin 22.0 H 01/10/24 06:10: WBC 14.2 H, RBC 3.39 L, Hgb 9.4 L, Hct 29.5 L, MCV 87.0, MCH 27.7, MCHC 31.9 L, RDW Std Deviation 51.0 H, RDW Coeff of Beto 16.5 H, Plt Count 287, MPV 12.1 H, Neut % (Auto) Not Reportable, Absolute Neuts (auto) 10.9 H, Absolute Lymphs (auto) 1.41, Total Counted 100, Neutrophils % (Manual) 76 H, Band Neutrophils % 1, Lymphocytes % (Manual) 10 L, Monocytes % (Manual) 10, Metamyelocytes % 2 H, Myelocytes % 1 H, Nucleated RBCs/100 WBC 1, Diff Path Review September, Platelet Estimate ADEQUATE, RBC Morphology NORM C+C, Sodium 142, Potassium 3.8, Chloride 109 H, Carbon Dioxide 28.0, Anion Gap 5, BUN 41 H, Creatinine 1.31 H, Estim Creat Clear Calc 59.45, Est GFR (MDRD) Af Amer 56 L, Est GFR (MDRD) Non-Af 47 L, BUN/Creatinine Ratio 31.3 H, Glucose 177 H, Calcium 8.8, Random Vancomycin 14.0 Micro: Microbiology 01/07/24 12:50 Sputum, Induced/Lukens Gram Stain - Final 01/07/24 12:50 Sputum, Induced/Lukens Respiratory Culture - Final Streptococcus group F ABG Data Attestation: I personally reviewed and interpreted this ABG as follows: Assessment and Plan . Assessment and plan: IMPRESSIONS: 1. Acute respiratory failure with hypoxemia and hypercapnia - failing SAT badly at present so no purpose to SBT - currently overventilated but overbreathing the set vent rate- so the alkalosis is patient-driven - continue aggressive sedation as needed with propofol/ fentanyl - daily SAT to continue 2. History of heart failure with preserved ejection fraction/COPD of unclear severity Continue current supportive measures including scheduled bronchodilators and steroids. Continue attempts at gentle diuresis to maintain euvolemic state, as tolerated by hemodynamics and renal function. 3. History of tobacco dependency/chronic pain syndrome/obesity/history of respiratory failure requiring tracheostomy Complicates care, management, recovery and prognosis. Continue supportive measures as noted above. Continue tube feeding as tolerated. Critical Care Time: 50 minutes The entirety of this encounter was done via Telemedicine Physical Exam Const General Appearance: patient mechanically ventilated HEENT normocephalic Mouth: endotracheal tube in place Eyes PERRL and EOMs intact bilaterally Resp Effort and Inspection: prolonged expiratory phase Auscultation: diminished lung sounds Cardio regular rate GI normal to inspection, nondistended, normoactive bowel sounds Neuro Sensorium / Orientation: sedated on vent Psych Appearance: unkempt Subjective Subjective Events reviewed. Difficult to sedate, banging her head against headboard during SAT
--- NOTE | 2024-01-10 11:35 | RAD_ITS ---
STUDY: X-RAY CHEST REASON FOR EXAM: Female, 43 years old. OG Tube placement TECHNIQUE: Single AP portable view of the chest. COMPARISON: January 07, 2024 FINDINGS: Endotracheal tube, 2 cm above the joseluis. Feeding tube extends to the stomach in the upper abdomen. PICC on the right extends to the right atrium. There are mild increased opacities of the lungs, with improvement. There is no demonstrated pleural abnormality. Sternal cerclage wires are present from a prior sternotomy. Normal mediastinum and neyda. Normal visualized pulmonary arteries. Normal visualized aortic arch and descending thoracic aorta. Normal visualized thoracic spine. Normal visualized ribs, clavicles, and shoulders. There is no demonstrated abnormality of the visualized soft tissue structures of the upper abdomen. RAD/CXR for Line Placement IMPRESSION: Feeding tube extends to the stomach. Improvement in bilateral edema or infiltrates Electronically Signed: Francisco Jimenes MD at 13:22 EDT ,
--- NOTE | 2024-01-10 11:50 | NURSING ---
Fentanyl on JUL shows complete. Bag still running, not empty. Will continue to monitor and hang new bag when ready
[2024-01-10] MEDS: Vital AF 1.2 Cal Liquid 1,000 ML 40 ML GT (12:47)
[2024-01-10] MEDS: fentaNYL drip 100 ML 12.5 MCG CONT INF ×2 (12:49→20:58)
[2024-01-10] MEDS: Baclofen 10 MG Tablet GT ×2 (13:39→20:43)
[2024-01-10] MEDS: Ferrous Gluconate 324 MG Tablet PO (13:39)
--- NOTE | 2024-01-10 15:11 | PN.HOSP_ITS ---
Reason for Visit Reason for Visit: Diagnoses Elevated white blood cell count, unspecified (01/06/24) Pneumonia, unspecified organism (01/06/24) Acute respiratory failure with hypoxia (01/06/24) Abnormal electrocardiogram [ECG] [EKG] (01/06/24) Subjective Subjective Patient was seen and examined today, she remains sedated and on the ventilator at this time, blood pressure was elevated this morning and I had prepared to start the patient on amlodipine for blood pressure but shortly thereafter her blood pressure went down and I canceled the amlodipine. It may be necessary to administer fluid if her blood pressure remains low today. Objective Data Objective Data Vital Signs: Vital Signs Temp Pulse Resp BP Pulse Ox O2 Del Method O2 Flow Rate 99.2 F H 77 16 95/62 92 Mechanical Ventilator 45 01/10/24 12:00 01/10/24 15:01 01/10/24 15:01 01/10/24 15:00 01/10/24 15:01 01/10/24 15:00 01/07/24 03:40 FiO2 35 01/10/24 15:00 Oxygen Flow Rate (L/min) 45 Oxygen Delivery Method Mechanical Ventilator Weight: 95 kg Body Mass Index (BMI) 37.0 Intake & Output: Intake and Output for Last 24 Hours 01/08/24 01/09/24 01/10/24 23:59 23:59 23:59 Intake Total 1728.87 / 1839.49 2448.25 / 2552.60 1934.56 / 1934.56 Output Total 1339 / 1339 3565 / 3565 1375 / 1375 Balance 389.87 / 500.49 -1116.75 / -1012.40 559.56 / 559.56 Lab / Micro Data 01/10/24 06:10 01/10/24 06:10 Labs: Laboratory Results - last 24 hr 01/07/24 17:55: Cycl Citrul Peptide IgG 5, c-ANCA Antibody <1:20, Atypical p- ANCA <1:20, p-ANCA Antibody <1:20 01/09/24 17:00: Random Vancomycin 22.0 H 01/10/24 06:10: WBC 14.2 H, RBC 3.39 L, Hgb 9.4 L, Hct 29.5 L, MCV 87.0, MCH 27.7, MCHC 31.9 L, RDW Std Deviation 51.0 H, RDW Coeff of Beto 16.5 H, Plt Count 287, MPV 12.1 H, Neut % (Auto) Not Reportable, Absolute Neuts (auto) 10.9 H, Absolute Lymphs (auto) 1.41, Total Counted 100, Neutrophils % (Manual) 76 H, Band Neutrophils % 1, Lymphocytes % (Manual) 10 L, Monocytes % (Manual) 10, M etamyelocytes % 2 H, Myelocytes % 1 H, Nucleated RBCs/100 WBC 1, Diff Path Review September, Platelet Estimate ADEQUATE, RBC Morphology NORM C+C, Sodium 142, Potassium 3.8, Chloride 109 H, Carbon Dioxide 28.0, Anion Gap 5, BUN 41 H, Creatinine 1.31 H, Estim Creat Clear Calc 59.45, Est GFR (MDRD) Af Amer 56 L, E st GFR (MDRD) Non-Af 47 L, BUN/Creatinine Ratio 31.3 H, Glucose 177 H, Calcium 8.8, Random Vancomycin 14.0 Micro: Microbiology 01/07/24 12:50 Sputum, Induced/Lukens Gram Stain - Final 01/07/24 12:50 Sputum, Induced/Lukens Respiratory Culture - Final Streptococcus group F 01/06/24 11:10 Blood Culture (Wb) - Right Hand Blood Culture - Preliminary No growth in 48 hours. 01/06/24 21:00 Urine, Random Legionella Antigen - Final 01/06/24 21:00 Urine, Random Streptococcus pneumoniae Antigen (M - Final 01/06/24 15:48 Mucosa - Nasopharyngeal Respiratory Panel (PCR) - Final 01/06/24 11:42 Mucosa - Nasopharyngeal SARS-CoV-2, Influenza & RSV (PCR) - Final Radiography Diagnostic Testing: Radiology Impression Chest X-Ray 01/10/24 11:35 IMPRESSION: Feeding tube extends to the stomach. Improvement in bilateral edema or infiltrates Electronically Signed: Francisco Jimenes MD at 13:22 EDT , Physical Exam Narrative no apparent distress and healthy appearing Constitutional Narrative: Patient is under sedation on the ventilator General Appearance: cooperative, well kempt and well developed Orientation / Consciousness: Patient is sedated and on the ventilator HEENT normocephalic, head/scalp atraumatic and moist oral mucous membranes Eyes Conjunctiva normal Neck supple, no JVD, thyroid normal and no carotid bruits General: trachea midline Resp normal respiratory effort, no retractions and no use of accessory muscles Resp Narrative: Patient has expiratory rhonchi as well as wheezes scattered bilaterally Auscultation: rhonchi and wheezes; Negative for rales Cardio regular rate, regular rhythm, S1 normal heart sound, S2 normal heart sound, no murmurs, no rub and no gallops GI normal to inspection, nondistended, normoactive bowel sounds, soft to palpation, non-tender and non-distended Extremity no clubbing, cyanosis or edema Skin no rashes or lesions noted General Skin Exam: no breakdown Neuro Neuro Narrative: Patient is under sedation on the ventilator Assessment & Plan Assessment/Plan (1) Pneumonia: (2) Acute respiratory failure with hypoxia: PLAN: Plan 1. Acute combined respiratory failure-pulmonary medicine is participating in her care, she remains on the vent at this time, antibiotics will be continued, patient grew out strep group F from her sputum. #2 chronic obstructive pulmonary disease-complicates care, management, recovery, and prognosis, patient is receiving aerosol treatments and corticosteroids #3 mild pulmonary hypertension-complicates care, management, recovery, and prognosis\ #4 essential hypertension-patient remains on hydralazine as needed hypertension, she is also on Lasix at this time #5 chronic depression-patient is on Prozac #6 acute congestive heart failure with preserved ejection fraction-patient is currently on IV Lasix #7 chronic kidney disease stage IIIb-labs will be monitored, complicates care, management, recovery, and prognosis, creatinine today was 1.31 Total clinical time spent by myself addressing the patient's medical issues, reviewing all of her data, and collaborating with patient's care team: 35 minutes Charges/Coding Visit Charges Inpatient E&M: 00870 Subs Hosp L2
[2024-01-10] MEDS: Propofol 10MG/Ml 1,000 MG/100 ML Bottle 17.1 MG CONT INF ×2 (15:17→20:43)
[2024-01-10] MEDS: Senna/Docusate Sodium 1 Tablet 2 TABLET GT (20:45)
[2024-01-10] MEDS: LORazepam 2 MG/ML Syringe 1 MG IV (21:35)
--- NOTE | 2024-01-10 21:40 | NURSING ---
Pt noted to be lifting head up and down in rhythmic movements since the start of the shift. Per dayshift report, she has been doing this mostly all day. Pt also noted to be clenching her teeth while doing oral care. Pt will not follow commands. HR and BP elevated. Dr. Skinner called and notified of situation. ordered 1 mg ativan IV x1 to see if her symptoms would stop. Ativan given and within a minute, pt stopped moving her head and her heart rate and blood pressure came down as well.
[2024-01-11] VITALS (36 sets, daily range): BP systolic 93–218; BP diastolic 58–125; PULSE 71–121; RESP 16–22; TEMP 37–37.7; O2SAT 58–99; BMI 37.3
[2024-01-11] MEDS: Ipratropium/Albuterol Sulfate 3 ML AMPUL.NEB INHALATION ×6 (02:18→23:01)
[2024-01-11] MEDS: Propofol 10MG/Ml 1,000 MG/100 ML Bottle 17.1 MG CONT INF (02:50)
[2024-01-11] MEDS: fentaNYL drip 100 ML 12.5 MCG CONT INF ×3 (04:57→21:32)
[2024-01-11] MEDS: Baclofen 10 MG Tablet GT (04:58)
[2024-01-11] MEDS: TITRATION PARAMETER CHANGE 1 EACH IV (04:58)
[2024-01-11] MEDS: CHLORHEXIDINE GLUC 2% CLOTH 1 EACH TOWELETTE TOPICAL (06:29)
[2024-01-11] MEDS: Vancomycin IV 1,000 MG/200 ML BAG 200 MG IV (06:29)
[2024-01-11] MEDS: Propofol 10MG/Ml 1,000 MG/100 ML Bottle 17.2 MG CONT INF ×3 (07:46→19:20)
[2024-01-11] MEDS: Chlorhexidine 15 ML PO ×2 (08:15→21:02)
[2024-01-11] MEDS: 0.9% Saline Lock 10 ML Syringe IV ×2 (10:25→11:07)
[2024-01-11] MEDS: Cefepime HCl 2 GM in 0.9% Normal Saline (100mL MB+) 100 ML IV ×2 (10:28→21:02)
[2024-01-11] MEDS: Vital AF 1.2 Cal Liquid 1,000 ML 50 ML GT (10:33)
[2024-01-11] MEDS: Furosemide 40 MG/4 ML Vial IV (10:34)
[2024-01-11] MEDS: Enoxaparin 40 MG/0.4 ML Syringe SC (10:35)
[2024-01-11] MEDS: Atorvastatin Calcium 20 MG Tablet PO (10:35)
[2024-01-11] MEDS: FLUoxetine 20 MG Capsule PO (10:36)
[2024-01-11] MEDS: Fluoxetine HCl 40 MG CAPSULE PO (10:36)
[2024-01-11] MEDS: Senna/Docusate Sodium 1 Tablet 2 TABLET GT ×2 (10:36→21:02)
[2024-01-11] MEDS: Ferrous Gluconate 324 MG Tablet PO (10:37)
[2024-01-11] MEDS: Montelukast 10 MG Tablet GT (10:37)
[2024-01-11] MEDS: Pregabalin 75 MG Capsule PO ×2 (10:41→21:02)
[2024-01-11] MEDS: Azithromycin 500 MG in Dextrose 5%-Water (250mL Bag) 250 ML 250 MG IV (11:07)
[2024-01-11] MEDS: Pantoprazole Sodium 40 MG in 0.9% Normal Saline (100mL MB+) 100 ML 330 MG IV (13:31)
--- NOTE | 2024-01-11 15:35 | RAD_ITS ---
STUDY: X-RAY CHEST REASON FOR EXAM: Female, 43 years old. CHEST PAIN SOB TECHNIQUE: XR Chest 1 View COMPARISON: Study done yesterday FINDINGS: There are bilateral pleural effusions. There are bilateral infiltrates. There is an NGT and ET tube in place. Right PICC line in place. Median sternotomy wires. Normal size heart. Normal mediastinum and neyda. Normal visualized pulmonary arteries. Normal visualized aortic arch and descending thoracic aorta. Normal visualized thoracic spine. Normal visualized ribs, clavicles, and shoulders. There are no acute findings of the upper abdomen. RAD/Chest 1 View (Portable) IMPRESSION: Pulmonary findings appear worse. Electronically Signed: Romain Conway MD at 16:19 EDT ,
--- NOTE | 2024-01-11 15:45 | PCM.PN.HOSP ---
Reason for Visit Reason for Visit: Diagnoses Elevated white blood cell count, unspecified (01/06/24) Pneumonia, unspecified organism (01/06/24) Acute respiratory failure with hypoxia (01/06/24) Abnormal electrocardiogram [ECG] [EKG] (01/06/24) Subjective Subjective Patient was seen and examined today, nursing states that they were unable to titrate her sedation downward, she becomes tachycardic and tachypneic. Objective Data Objective Data Vital Signs: Vital Signs Temp Pulse Resp BP Pulse Ox O2 Del Method O2 Flow Rate 99.3 F H 88 16 138/96 H 93 Mechanical Ventilator 45 01/11/24 15:00 01/11/24 15:15 01/11/24 15:15 01/11/24 15:00 01/11/24 15:13 01/11/24 15:00 01/07/24 03:40 FiO2 35 01/11/24 15:00 Oxygen Flow Rate (L/min) 45 Oxygen Delivery Method Mechanical Ventilator Weight: 95.5 kg Body Mass Index (BMI) 37.3 Intake & Output: Intake and Output for Last 24 Hours 01/09/24 01/10/24 01/11/24 23:59 23:59 23:59 Intake Total 2448.25 / 2552.60 2550.90 / 3090.50 2669.43 / 2669.43 Output Total 3565 / 3565 2175 / 2175 2315 / 2315 Balance -1116.75 / -1012.40 375.90 / 915.50 354.43 / 354.43 Lab / Micro Data 01/10/24 06:10 01/10/24 06:10 Micro: Microbiology 01/06/24 11:10 Blood Culture (Wb) - Right Hand Blood Culture - Final No growth in 5 days. 01/07/24 12:50 Sputum, Induced/Lukens Gram Stain - Final 01/07/24 12:50 Sputum, Induced/Lukens Respiratory Culture - Final Streptococcus group F 01/06/24 21:00 Urine, Random Legionella Antigen - Final 01/06/24 21:00 Urine, Random Streptococcus pneumoniae Antigen (M - Final 01/06/24 15:48 Mucosa - Nasopharyngeal Respiratory Panel (PCR) - Final 01/06/24 11:42 Mucosa - Nasopharyngeal SARS-CoV-2, Influenza & RSV (PCR) - Final Physical Exam Narrative no apparent distress, she is sedated and on the ventilator Constitutional Narrative: Patient is under sedation on the ventilator General Appearance: cooperative, well kempt and well developed Orientation / Consciousness: Patient is sedated and on the ventilator HEENT normocephalic, head/scalp atraumatic and moist oral mucous membranes Eyes Conjunctiva normal Neck supple, no JVD, thyroid normal and no carotid bruits General: trachea midline Resp normal respiratory effort, no retractions and no use of accessory muscles Resp Narrative: Patient has expiratory rhonchi as well as wheezes scattered bilaterally Auscultation: rhonchi and wheezes; Negative for rales Cardio regular rate, regular rhythm, S1 normal heart sound, S2 normal heart sound, no murmurs, no rub and no gallops GI normal to inspection, nondistended, normoactive bowel sounds, soft to palpation, non-tender and non-distended Extremity no clubbing, cyanosis or edema Skin no rashes or lesions noted General Skin Exam: no breakdown Neuro Neuro Narrative: Patient is under sedation on the ventilator Assessment & Plan Assessment/Plan (1) Pneumonia: (2) Acute respiratory failure with hypoxia: PLAN: Plan 1. Acute combined respiratory failure-pulmonary medicine is participating in her care, she remains on the vent at this time, antibiotics will be continued, patient grew out strep group F from her sputum. #2 chronic obstructive pulmonary disease-complicates care, management, recovery, and prognosis, patient is receiving aerosol treatments and corticosteroids #3 mild pulmonary hypertension-complicates care, management, recovery, and prognosis\ #4 essential hypertension-patient remains on hydralazine as needed hypertension, she is also on Lasix at this time #5 chronic depression-patient is on Prozac #6 acute congestive heart failure with preserved ejection fraction-patient is currently on IV Lasix #7 chronic kidney disease stage IIIb-labs will be monitored, complicates care, management, recovery, and prognosis, BMP will be obtained in the morning Total clinical time spent by myself addressing the patient's medical issues, reviewing all of her data, and collaborating with patient's care team: 35 minutes Charges/Coding Visit Charges Inpatient E&M: 80627 Subs Hosp L2
--- NOTE | 2024-01-11 17:47 | PN.CC_ITS ---
Objective Data Objective Data Vital Signs: Vital Signs Last response 3 Temperature 37.4 C H 01/11/24 17:00 Temperature Source Core 01/11/24 17:00 Pulse Rate 96 01/11/24 17:00 Pulse Strength Weak (1+) 01/10/24 19:57 Respiratory Rate 16 01/11/24 17:00 Respiratory Effort Mechanically Ventilated 01/11/24 16:00 Respiratory Depth Normal 01/11/24 16:00 Respiratory Pattern Normal 01/11/24 16:00 Blood Pressure 137/97 H 01/11/24 17:00 Blood Pressure Mean 110 01/11/24 17:00 Blood Pressure Source Monitor 01/11/24 17:00 Blood Pressure Position Semi-Fowlers 01/11/24 17:00 Blood Pressure Location Left Arm 01/11/24 17:00 Pulse Ox 94 01/11/24 17:00 Oxygen Delivery Method Mechanical Ventilator 01/11/24 17:00 Oxygen Flow Rate (L/min) 45 01/07/24 03:40 Fraction of Inspired Oxygen (FIO2) 35 01/11/24 17:00 I&O: I&O Last 24 Hours 3 01/10/24 01/11/24 01/11/24 23:59 11:59 23:59 Intake Total 678.08 / 3090.50 1899.50 / 2669.43 769.93 / 2669.43 Output Total 800 / 2175 490 / 2315 1825 / 2315 Balance -121.92 / 915.50 1409.50 / 354.43 -1055.07 / 354.43 I&O: Total Stay 3 01/06/24 10:48 thru 01/11/24 15:10 Intake Total 61043.67 Output Total 68451 Balance 1305.67 Current Meds Ordered / Administered: Current meds ordered / Administered 3 Generic Name Dose Route Start Last Admin Trade Name Freq PRN Reason Stop Dose Admin Acetaminophen 650 mg 01/10/24 07:38 Acetaminophen 325 Mg Tablet GT Q6H PRN PRN Pain 1-10 Or Fever>100.7 Albuterol Sulfate 2.5 mg 01/06/24 13:59 Albuterol 2.5 Mg/3 Ml Vial.Neb. INHALATION Q2H PRN PRN SHORTNESS OF BREATH Albuterol/Ipratropium 3 ml 01/06/24 14:00 01/11/24 14:33 Ipratropium/Albuterol Sulfate 3 Ml Ampul.Neb INHALATION 3 ml Q4H.RT SADE Administration Atorvastatin Calcium 20 mg 01/07/24 10:00 01/11/24 10:35 Atorvastatin Calcium 20 Mg Tablet PO 20 mg DAILY SADE Administration Chlorhexidine Gluconate 1 each 01/08/24 10:00 01/11/24 06:29 Chlorhexidine Gluc 2% Cloth 1 Each [place] TOPICAL 1 each DAILY SADE Administration Chlorhexidine Gluconate 15 ml 01/07/24 22:00 01/11/24 08:15 Chlorhexidine 15 Ml PO 15 ml BID SADE Administration Enoxaparin Sodium 40 mg 01/07/24 10:00 01/11/24 10:35 Enoxaparin 40 Mg/0.4 Ml Syringe SC 40 mg DAILY SADE Administration Ferrous Gluconate 324 mg 01/07/24 12:00 01/11/24 10:37 Ferrous Gluconate 324 Mg Tablet PO 324 mg LUNCH SADE Administration Fluoxetine HCl 40 mg 01/07/24 10:00 01/11/24 10:36 Fluoxetine Hcl 40 Mg Capsule PO 40 mg DAILY SADE Administration Fluoxetine HCl 20 mg 01/07/24 10:00 01/11/24 10:36 Fluoxetine 20 Mg Capsule PO 20 mg DAILY SADE Administration Furosemide 40 mg 01/07/24 10:00 01/11/24 10:34 Furosemide 40 Mg/4 Ml Vial IV 40 mg DAILY SADE Administration Protocol Hydralazine HCl 10 mg 01/06/24 15:56 01/09/24 21:41 Hydralazine 20 Mg/Ml Vial IV 10 mg Q6H PRN PRN Administration sbp> 160 Protocol Azithromycin 500 mg/ Dextrose 255 mls @ 250 mls/hr 01/07/24 10:00 01/11/24 13:13 IV 01/12/24 10:01 Infused Q24 SADE Infusion Vancomycin IV-PHARMACY TO DOSE 500 mls @ 250 mls/hr 01/06/24 13:59 1 each/ Sodium Chloride IV X1 PRN Rx to Dose Protocol Sodium Chloride 250 mls @ 15 mls/hr 01/06/24 19:59 01/11/24 06:29 IV 0 mls/hr .[id number] PRN Infusion Additional IVPB Infusion Sodium Chloride 250 mls @ 15 mls/hr 01/06/24 19:59 IV .[id number] PRN Saline Flush Propofol 1,000 mg in 100 mls @ 5.73 mls/hr 01/07/24 12:20 01/11/24 14:00 Diprivan CONT INF 30 mcg/kg/min .Q12H SADE 17.2 mls/hr Titration Protocol 10 MCG/KG/MIN Fentanyl 100 mls @ 5 mls/hr 01/07/24 12:20 01/11/24 14:00 CONT INF 125 mcg/hr UD SADE 12.5 mls/hr Titration Protocol 50 MCG/HR Pantoprazole Sodium 40 mg/ 110 mls @ 330 mls/hr 01/08/24 10:00 01/11/24 13:31 Sodium Chloride IV 330 mls/hr Q24 SADE Administration Enteral Nutritional Formula 1,000 mls @ 50 mls/hr 01/08/24 10:30 01/11/24 15:10 Vital Af 1.2 Kurtis Liquid GT 50 mls/hr .Q20H SADE Infusion Cefepime HCl 2 gm/ Sodium 100 mls @ 200 mls/hr 01/08/24 22:00 01/11/24 11:08 Chloride IV Infused Q12 SADE Infusion Vancomycin HCl 1,000 mg in 200 mls @ 200 mls/hr 01/10/24 07:30 01/11/24 10:11 Vancomycin IV Infused Q24H ASDE Infusion Lorazepam 1 mg 01/10/24 21:50 Lorazepam 2 Mg/Ml Syringe IV Q4H PRN PRN SEIZURES Melatonin 3 mg 01/10/24 07:37 Melatonin 3 Mg Tablet GT QHS PRN PRN INSOMNIA Methylprednisolone 40 mg 01/06/24 22:00 01/11/24 13:31 Methylprednisolone 40 Mg/Ml Vial IV 40 mg Q8 SADE Administration Montelukast Sodium 10 mg 01/10/24 10:00 01/11/24 10:37 Montelukast 10 Mg Tablet GT 10 mg DAILY SADE Administration Ondansetron HCl 4 mg 01/06/24 13:59 Ondansetron 4 Mg/2 Ml Vial IV Q8H PRN PRN NAUSEA/VOMITING Pregabalin 75 mg 01/06/24 22:00 01/11/24 10:41 Pregabalin 75 Mg Capsule PO 75 mg Q12H SADE Administration Senna/Docusate Sodium 2 tablet 01/10/24 22:00 01/11/24 10:36 Senna/Docusate Sodium 1 Tablet GT 2 tablet BID SADE Administration Sodium Chloride 10 - 40 ml 01/06/24 19:59 01/11/24 11:07 0.9% Saline Lock 10 Ml Syringe IV 10 ml UD PRN Administration SALINE FLUSH Vancomycin Protocol 1 lab 01/12/24 05:00 Vancomycin Trough/Random Due MC 01/12/24 09:00 DAILY SADE Lab / Micro Data 01/10/24 06:10 01/10/24 06:10 Micro: Microbiology 01/06/24 11:10 Blood Culture (Wb) - Right Hand Blood Culture - Final No growth in 5 days. Imaging Radiology Impression Chest X-Ray 01/11/24 15:35 IMPRESSION: Pulmonary findings appear worse. Electronically Signed: Romain Conway MD at 16:19 EDT , Assessment and Plan . Assessment and plan: IMPRESSIONS: 1. Acute respiratory failure with hypoxemia and hypercapnia - failing SAT badly at present so no purpose to SBT - currently overventilated but overbreathing the set vent rate- so the alkalosis is patient-driven - continue aggressive sedation as needed with propofol/ fentanyl - daily SAT to continue - check CXR in AM 2. History of heart failure with preserved ejection fraction/COPD of unclear severity Continue current supportive measures including scheduled bronchodilators and steroids. Continue attempts at gentle diuresis to maintain euvolemic state, as tolerated by hemodynamics and renal function. 3. History of tobacco dependency/chronic pain syndrome/obesity/history of respiratory failure requiring tracheostomy Complicates care, management, recovery and prognosis. Continue supportive measures as noted above. Continue tube feeding as tolerated. Critical Care Time: 50 minutes The entirety of this encounter was done via Telemedicine Critical Care Time: The entirety of this encounter was done via Telemedicine Physical Exam Const General Appearance: patient mechanically ventilated HEENT Mouth: endotracheal tube in place Eyes Sclera: sclera abnormal Resp Effort and Inspection: uses accessory muscles Auscultation: diminished lung sounds Cardio regular rate GI normal to inspection, nondistended, normoactive bowel sounds Neuro Sensorium / Orientation: sedated on vent Subjective Subjective Remains severely altered not waking up easily- presumably this is related to acute illness and numerous psychotropic medications taken chronically
[2024-01-12] VITALS (38 sets, daily range): BP systolic 83–164; BP diastolic 57–99; PULSE 71–118; RESP 15–22; TEMP 37.3–37.7; O2SAT 91–97; BMI 37.4
[2024-01-12] MEDS: Propofol 10MG/Ml 1,000 MG/100 ML Bottle 17.2 MG CONT INF ×2 (01:00→08:10)
[2024-01-12] MEDS: Ipratropium/Albuterol Sulfate 3 ML AMPUL.NEB INHALATION ×6 (02:53→23:12)
[2024-01-12 03:57] LABS: Hematocrit 34.6 % (37-47); Hemoglobin 10.8 g/dL (12.0-15.0); Mean Corp Hgb Conc 31.2 g/dL (32-36); Mean Corpuscular Volume 89.6 fL (81-99); POSITIVE COUNT YES; POSITIVE DIFFERENTIAL YES; POSITIVE MORPHOLOGY YES; Platelet Count 237 K/mm3 (150-450); RBC Distribution Width CV 16.7 % (11.6-14.6); RBC Distribution Width SD 53.6 fl (35.1-43.9); Red Blood Count 3.86 M/mm3 (4.2-5.4); White Blood Count 18.9 K/mm3 (4.4-11.0)
[2024-01-12 04:02] LABS: Differential Indicated MANUAL DIFF
[2024-01-12 04:10] LABS: ALB/GLOB Ratio 0.6 RATIO (0.9-2.4); AST(SGOT) 20 U/L (15-37); Alanine Aminotransfer ALT/SGPT 21 U/L (13-56); Albumin, Serum 2.8 g/dL (3.2-5.0); Alkaline Phosphatase 55 U/L (45-117); Anion Gap 7 (5-15); BUN 41 mg/dL (7-18); Calcium,Total 9.1 mg/dL (8.5-10.1); Chloride 102 mmol/L (98-107); Creatinine, Serum 1.14 mg/dL (0.55-1.02); EST Glomerular Filtration Rate 55 mL/min (>60); Est Glom Filt Rate - Afr Amer 66 mL/min (>60); Estimated Creatinine Clearance 68.51 ml/min; Globulin 4.6 g/dL (2.2-4.2); Glucose 168 mg/dL (74-106); Potassium 4.1 mmol/L (3.5-5.1); Protein, Total 7.4 g/dL (6.4-8.2); Sodium Level 138 mmol/L (136-145)
[2024-01-12 04:27] LABS: Neutrophil-Band 6 % (0-5); Neutrophil-Segmented 73 % (47-70); Total Cells Counted 100 (MANUAL DIFF)
[2024-01-12 04:28] LABS: Anisocytosis 1+; Eosinophil 1 % (0-5); Hypochromasia 1+; Lymphocyte 7 % (19-41); Metamyelocyte 4 % (0-1); Monocyte 8 % (0-10); Myelocyte 1 % (0-0); Ovalocyte 1+; Platelet Estimate ADEQUATE (ADEQ); Polychromasia 1+
[2024-01-12 04:30] LABS: Absolute Lymphocyte Count 1.32 X10^3/uL (0.83-4.51); Absolute Neutrophil Count 14.9 X10^3/uL (2.0-7.7)
[2024-01-12] MEDS: Vancomycin Trough/Random Due 1 LAB MC (06:48)
[2024-01-12] MEDS: 0.9% Saline Lock 10 ML Syringe IV ×3 (06:49→13:22)
[2024-01-12 07:38] LABS: Vancomycin, Trough Level 12.8 ug/mL (5.0-15.0)
[2024-01-12] MEDS: Chlorhexidine 15 ML PO ×2 (07:57→21:01)
[2024-01-12] MEDS: Cefepime HCl 2 GM in 0.9% Normal Saline (100mL MB+) 100 ML IV ×3 (07:57→21:00)
[2024-01-12] MEDS: CHLORHEXIDINE GLUC 2% CLOTH 1 EACH TOWELETTE TOPICAL (07:57)
[2024-01-12] MEDS: Vital AF 1.2 Cal Liquid 1,000 ML 50 ML GT (07:58)
--- NOTE | 2024-01-12 08:00 | PCM.RX.CS ---
Consult Antibiotic Management Pharmacy has been consulted to manage selected antibiotic: Vancomycin Type of Intervention Type of Consult: Follow-up Suspected Infection Suspected Infection: Pneumonia Labs Labs: Sodium 138 mmol/L (136-145) 01/12/24 03:40 Potassium 4.1 mmol/L (3.5-5.1) 01/12/24 03:40 Chloride 102 mmol/L (98-107) 01/12/24 03:40 Carbon Dioxide 29.0 mmol/L (21.0-32.0) 01/12/24 03:40 Anion Gap 7 (5-15) 01/12/24 03:40 BUN 41 mg/dL (7-18) H 01/12/24 03:40 Creatinine 1.14 mg/dL (0.55-1.02) H 01/12/24 03:40 Est GFR (MDRD) Af Amer 66 mL/min (>60) 01/12/24 03:40 Est GFR (MDRD) Non-Af 55 mL/min (>60) L 01/12/24 03:40 BUN/Creatinine Ratio 36.0 RATIO (10-20) H 01/12/24 03:40 Glucose 168 mg/dL (74-106) H 01/12/24 03:40 Vancomycin Trough 12.8 ug/mL (5.0-15.0) 01/12/24 06:53 Random Vancomycin 14.0 ug/mL (0.0-15.0) 01/10/24 06:10 Microbiology Microbiology: Microbiology 01/06/24 11:10 Blood Culture (Wb) - Right Hand Blood Culture - Final No growth in 5 days. 01/07/24 12:50 Sputum, Induced/Lukens Gram Stain - Final 01/07/24 12:50 Sputum, Induced/Lukens Respiratory Culture - Final Streptococcus group F 01/06/24 21:00 Urine, Random Legionella Antigen - Final 01/06/24 21:00 Urine, Random Streptococcus pneumoniae Antigen (M - Final 01/06/24 15:48 Mucosa - Nasopharyngeal Respiratory Panel (PCR) - Final 01/06/24 11:42 Mucosa - Nasopharyngeal SARS-CoV-2, Influenza & RSV (PCR) - Final Goal Trough Goal Trough: 15-20 mcg/mL Pharmacy Plan for Drug Dosing Pharmacy Plan for Drug Dosing: VANCOMYCIN LEVEL RECEIVED Current Vancomycin Dose: 1000mg Q24H Number of Doses Received: 1000mg x2 since restart Vancomycin Level: 12.8 Hours Since Last Dose: 12.5 Renal Function: sCr 1.14 Renal Function Trend: stable Vancomycin Plan/Comments: Continue Vancomycin 1000mg Q24H and recheck level in 48 hours Pending Level: Vancomycin trough @ 07:30 01/14/24 Pharmacy Service will continue to monitor and adjust dosing as required. Follow-Up Labs Follow-Up Labs: Trough: Vancomycin (07:30 01/14/24)
[2024-01-12] MEDS: Montelukast 10 MG Tablet GT (08:04)
[2024-01-12] MEDS: Furosemide 40 MG/4 ML Vial IV (08:04)
[2024-01-12] MEDS: Senna/Docusate Sodium 1 Tablet 2 TABLET GT ×2 (08:04→21:01)
[2024-01-12] MEDS: Enoxaparin 40 MG/0.4 ML Syringe SC (08:04)
[2024-01-12] MEDS: Pantoprazole Sodium 40 MG in 0.9% Normal Saline (100mL MB+) 100 ML 330 MG IV (08:05)
[2024-01-12] MEDS: Azithromycin 500 MG in Dextrose 5%-Water (250mL Bag) 250 ML 250 MG IV (08:05)
[2024-01-12] MEDS: FLUoxetine 20 MG Capsule PO (08:05)
[2024-01-12] MEDS: Fluoxetine HCl 40 MG CAPSULE PO (08:05)
[2024-01-12] MEDS: Pregabalin 75 MG Capsule PO ×2 (08:05→21:00)
--- NOTE | 2024-01-12 08:13 | PCM.PN.INT ---
Assessment & Plan Assessment/Plan (1) Acute respiratory failure with hypoxia: (2) Pneumonia: PLAN: Plan RECOMMENDATIONS: 1. Continue assist-control mode of mechanical ventilation. Wean FiO2 and PEEP as tolerated. 2. Obtain follow-up ABG this morning. 3. Transition from propofol to Precedex to facilitate weaning from invasive mechanical ventilatory support. 4. Continue antimicrobials. 5. Continue bronchodilators and steroids. 6. Continue tube feeding as tolerated. 7. Continue appropriate ICU prophylaxis. IMPRESSIONS: 1. Acute respiratory failure with hypoxemia and hypercapnia Clinical concern for evolving ARDS related to pneumonia. The patient demonstrated increased work of breathing despite the use of noninvasive positive pressure ventilatory support, and was ultimately intubated on January 06. Plan to continue assist-control mode mechanical ventilation and wean FiO2/PEEP to maintain saturations at or above 90%. The patient will be maintained on empiric broad-spectrum antimicrobials. Autoimmune workup was negative and sputum culture is currently demonstrating growth of Streptococcus. The patient will be maintained on scheduled bronchodilators and steroids. I am going to transition her from propofol to Precedex this morning in hopes that she will pass a spontaneous breathing trial in the next 24 to 48 hours and be successfully extubated. 2. History of heart failure with preserved ejection fraction/COPD of unclear severity Continue current supportive measures including scheduled bronchodilators and steroids. Continue attempts at gentle diuresis to maintain euvolemic state, as tolerated by hemodynamics and renal function. 3. History of tobacco dependency/chronic pain syndrome/obesity/history of respiratory failure requiring tracheostomy Complicates care, management, recovery and prognosis. Continue supportive measures as noted above. Continue tube feeding as tolerated. TIME: 33 minutes of critical care time, independent of procedures, was spent addressing the patient's acute respiratory failure with hypoxemia and hypercapnia, review of all data and collaboration with the care team. Subjective Subjective The patient was seen and examined at the bedside this morning. Events from the last 24 hours have been reviewed. The patient is currently afebrile, hemodynamically stable and maintaining appropriate oxygen saturations on assist-control mode mechanical ventilation with an FiO2 requirement of 40%. According to nursing staff, the patient did relatively well this morning on a breathing trial for approximately 1 hour before she became increasingly tachycardic. However, during the breathing trial, she would not follow any simple commands. Therefore, the trial was terminated and she was placed back on assist-control mode of mechanical ventilation. The patient has an elevated white blood cell count of 19,000 with a creatinine of 1.14. Objective Data Objective Data The patient's most recent lab work, culture data and imaging studies have all been personally reviewed. Surface echocardiogram demonstrated normal LV size and thickness with an ejection fraction of 55%. Right ventricular systolic pressure was estimated to be 48 mmHg. Sputum culture dated January 06 was positive for 1+ Streptococcus group F. Vital Signs: Vital Signs Temp Pulse Resp BP Pulse Ox O2 Del Method O2 Flow Rate 99.9 F H 101 H 16 113/75 95 Mechanical Ventilator 45 01/12/24 04:00 01/12/24 07:00 01/12/24 07:00 01/12/24 07:00 01/12/24 07:00 01/12/24 07:00 01/07/24 03:40 FiO2 40 01/12/24 07:00 Oxygen Flow Rate (L/min) 45 Oxygen Delivery Method Mechanical Ventilator Weight: 211 lb 3.245 oz Body Mass Index (BMI) 37.4 Intake & Output: Intake and Output for Last 24 Hours 01/10/24 01/11/24 01/12/24 23:59 23:59 23:59 Intake Total 2550.90 / 3090.50 3478.15 / 3507.85 733.72 / 733.72 Output Total 2175 / 2175 3090 / 3090 450 / 450 Balance 375.90 / 915.50 388.15 / 417.85 283.72 / 283.72 Lab / Micro Data Attestation: I reviewed the patient's lab results. 01/12/24 03:40 01/12/24 03:40 Labs: Laboratory Results - last 24 hr 01/12/24 03:40: WBC 18.9 H, RBC 3.86 L, Hgb 10.8 L, Hct 34.6 L, MCV 89.6, MCH 28.0, MCHC 31.2 L, RDW Std Deviation 53.6 H, RDW Coeff of Beto 16.7 H, Plt Count 237, MPV 12.0, Neut % (Auto) Not Reportable, Absolute Neuts (auto) 14.9 H, Absolute Lymphs (auto) 1.32, Total Counted 100, Neutrophils % (Manual) 73 H, Band Neutrophils % 6 H, Lymphocytes % (Manual) 7 L, Monocytes % (Manual) 8, Eosinophils % (Manual) 1, Metamyelocytes % 4 H, Myelocytes % 1 H, Diff Path Review May , Platelet Estimate ADEQUATE, Polychromasia 1+, Hypochromasia 1+, Anisocytosis 1+, Ovalocytes 1+, Sodium 138, Potassium 4.1, Chloride 102, Carbon Dioxide 29.0, Anion Gap 7, BUN 41 H, Creatinine 1.14 H, Estim Creat Clear Calc 68.51, Est GFR (MDRD) Af Amer 66, Est GFR (MDRD) Non-Af 55 L, BUN/Creatinine Ratio 36.0 H, Glucose 168 H, Calcium 9.1, Total Bilirubin 0.20, AST 20, ALT 21, Alkaline Phosphatase 55, Total Protein 7.4, Albumin 2.8 L, Globulin 4.6 H, Albumin/Globulin Ratio 0.6 L 01/12/24 06:53: Vancomycin Trough 12.8 Micro: Microbiology 01/06/24 11:10 Blood Culture (Wb) - Right Hand Blood Culture - Final No growth in 5 days. 01/07/24 12:50 Sputum, Induced/Lukens Gram Stain - Final 01/07/24 12:50 Sputum, Induced/Lukens Respiratory Culture - Final Streptococcus group F 01/06/24 21:00 Urine, Random Legionella Antigen - Final 01/06/24 21:00 Urine, Random Streptococcus pneumoniae Antigen (M - Final 01/06/24 15:48 Mucosa - Nasopharyngeal Respiratory Panel (PCR) - Final 01/06/24 11:42 Mucosa - Nasopharyngeal SARS-CoV-2, Influenza & RSV (PCR) - Final ABG Data ABG results: ABG 01/07/24 01/07/24 11:51 13:32 Specimen Type ART ART Sample Site L Radial R Radial pH 7.29 L 7.26 L Bicarbonate Actual 23.2 23.8 Total CO2 25 25 Base Excess -3 L -3 L O2 Saturation 87 L 100 H O2 % 55.0 100.0 ABG pCO2 48.5 H 53.2 H ABG pO2 59 L 196 H Chris Test Positive Respiration Rate 16 O2 Delivery Device BiPAP Not entered Vent Mode Not entered Not entered Tidal Volume 400.0 POC PEEP 5 Radiography Diagnostic Testing: Radiology Impression Chest X-Ray 01/11/24 15:35 IMPRESSION: Pulmonary findings appear worse. Electronically Signed: Romain Conway MD at 16:19 EDT , Physical Exam Const Constitutional Narrative: Intubated, sedated and mechanically ventilated. No ventilator dyssynchrony noted. General Appearance: patient mechanically ventilated HEENT normocephalic and head/scalp atraumatic Mouth: endotracheal tube in place and OG tube in place Eyes PERRL and conjunctivae normal Neck supple General: trachea midline Chest inspection of chest normal Resp Effort and Inspection: tachypneic Auscultation: diminished lung sounds Cardio regular rate, regular rhythm, S1 normal heart sound and S2 normal heart sound GI normal to inspection, nondistended, normoactive bowel sounds Extremity no clubbing, cyanosis or edema Skin no rashes or lesions noted Neuro Sensorium / Orientation: sedated on vent Charges/Coding Procedures Hospitalists Procedures: [id number] Critical Care 1st Hr
[2024-01-12] MEDS: Vancomycin IV 1,000 MG/200 ML BAG 200 MG IV (08:30)
[2024-01-12 08:46] LABS: Allen Test Positive; Base Excess 7 mmol/L (-2 to +2); Bicarbonate 30.3 mmol/L (22-26); Blood Gas Specimen Type ART; Mode AC/vc+; O2 Delivery Device Adult Vent; PEEP 5; PO2 77 mmHG (75-100); RR 16; SITE L Radial; SO2 96 % (95-99); Total Carbon Dioxide 32 mmol/L; pCO2 40.9 mmHg (35-45); pH 7.48 (7.35-7.45)
--- NOTE | 2024-01-12 09:38 | CASEMGMT ---
SW participated in interdisciplinary rounds. Patient remains on ventilator. Patient's parents were both present for rounds. SW checked back in with patient's parents and provided support. Patient has been through similar situation in the past and required a trach at that time. SW let patient's parents know that SW is available. Fabby Puckett OBGYN HOSPITALIST PHYSICIAN GERTRUDIS
[2024-01-12] MEDS: dexMEDEtomidine 400 MCG in 0.9% Normal Saline (100mL Bag) 96 ML 12 MCG CONT INF (09:39)
[2024-01-12] MEDS: Polyethylene Glycol 3350 17 GM PACKET GT (09:40)
[2024-01-12] MEDS: TITRATION PARAMETER CHANGE 1 EACH IV (10:29)
[2024-01-12 10:32] LABS: Pathologist Review Reviewed
[2024-01-12] MEDS: fentaNYL drip 100 ML 7.5 MCG CONT INF (11:09)
[2024-01-12] MEDS: Ferrous Gluconate 324 MG Tablet PO (11:28)
[2024-01-12] MEDS: 0.9% Normal Saline (250mL Bag) 250 ML 15 ML IV (13:21)
[2024-01-12] MEDS: dexMEDEtomidine 400 MCG in 0.9% Normal Saline (100mL Bag) 96 ML 26.3 MCG CONT INF (13:37)
--- NOTE | 2024-01-12 14:00 | NURSING ---
PT/OT worked with patient doing ROM. Nursing staff did 1400 care, oral care, turned and repositioned, then noticed ET tube appeared to be pulled out slightly, around 23@lip. RT came to floor when walking out of room, let RT know about the tube. Stated since she has been on the vent for several days and she has high amounts of secretions, the tube would be more proned to move. Advanced the ET tube to 25@ lip. Observed securement.
--- NOTE | 2024-01-12 15:15 | PN_ITS ---
Subjective Subjective Patient seen and examined. She remains intubated and sedated. Unable to do review of systems as she is intubated. She failed spontaneous breathing trial as she becomes tachypneic and tachycardic. Objective Data Objective Data Vital Signs: Vital Signs Temp Pulse Resp BP Pulse Ox O2 Del Method O2 Flow Rate 99.5 F H 72 16 86/62 L 91 Mechanical Ventilator 45 01/12/24 14:00 01/12/24 14:04 01/12/24 14:04 01/12/24 14:00 01/12/24 14:04 01/12/24 14:00 01/07/24 03:40 FiO2 35 01/12/24 14:00 Oxygen Flow Rate (L/min) 45 Oxygen Delivery Method Mechanical Ventilator Weight: 211 lb 3.245 oz Body Mass Index (BMI) 37.4 Intake & Output: Intake and Output for Last 24 Hours 01/10/24 01/11/24 01/12/24 23:59 23:59 23:59 Intake Total 2550.90 / 3090.50 3478.15 / 3507.85 1918.38 / 1918.38 Output Total 2175 / 2175 3090 / 3090 2900 / 2900 Balance 375.90 / 915.50 388.15 / 417.85 -981.62 / -981.62 Lab / Micro Data 01/12/24 03:40 01/12/24 03:40 Labs: Laboratory Results - last 24 hr 01/10/24 06:10: Diff Path Review Reviewed 01/12/24 03:40: WBC 18.9 H, RBC 3.86 L, Hgb 10.8 L, Hct 34.6 L, MCV 89.6, MCH 28.0, MCHC 31.2 L, RDW Std Deviation 53.6 H, RDW Coeff of Beto 16.7 H, Plt Count 237, MPV 12.0, Neut % (Auto) Not Reportable, Absolute Neuts (auto) 14.9 H, Absolute Lymphs (auto) 1.32, Total Counted 100, Neutrophils % (Manual) 73 H, B and Neutrophils % 6 H, Lymphocytes % (Manual) 7 L, Monocytes % (Manual) 8, Eosinophils % (Manual) 1, Metamyelocytes % 4 H, Myelocytes % 1 H, Diff Path Review May foll, Platelet Estimate ADEQUATE, Polychromasia 1+, Hypochromasia 1+, Anisocytosis 1+, Ovalocytes 1+, Sodium 138, Potassium 4.1, Chloride 102, Carbon Dioxide 29.0, Anion Gap 7, BUN 41 H, Creatinine 1.14 H, Estim Creat Clear Calc 68.51, Est GFR (MDRD) Af Amer 66, Est GFR (MDRD) Non-Af 55 L, BUN/Creatinine Ratio 36.0 H, Glucose 168 H, Calcium 9.1, Total Bilirubin 0.20, AST 20, ALT 21, Alkaline Phosphatase 55, Total Protein 7.4, Albumin 2.8 L, Globulin 4.6 H, A lbumin/Globulin Ratio 0.6 L 01/12/24 06:53: Vancomycin Trough 12.8 Micro: Microbiology 01/06/24 11:10 Blood Culture (Wb) - Right Hand Blood Culture - Final No growth in 5 days. 01/07/24 12:50 Sputum, Induced/Lukens Gram Stain - Final 01/07/24 12:50 Sputum, Induced/Lukens Respiratory Culture - Final Streptococcus group F 01/06/24 21:00 Urine, Random Legionella Antigen - Final 01/06/24 21:00 Urine, Random Streptococcus pneumoniae Antigen (M - Final 01/06/24 15:48 Mucosa - Nasopharyngeal Respiratory Panel (PCR) - Final 01/06/24 11:42 Mucosa - Nasopharyngeal SARS-CoV-2, Influenza & RSV (PCR) - Final ABG Data ABG results: ABG 01/12/24 08:42 Specimen Type ART Sample Site L Radial pH 7.48 H Bicarbonate Actual 30.3 H Total CO2 32 Base Excess 7 H O2 Saturation 96 O2 % 35.0 ABG pCO2 40.9 ABG pO2 77 Chris Test Positive Respiration Rate 16 O2 Delivery Device Adult Vent Vent Mode AC/vc+ Tidal Volume 400.0 POC PEEP 5 Radiography Diagnostic Testing: Radiology Impression Chest X-Ray 01/11/24 15:35 IMPRESSION: Pulmonary findings appear worse. Electronically Signed: Romain Conway MD at 16:19 EDT , Physical Exam Const Constitutional Narrative: intubated and sedated. RASS score is -4/ HEENT normocephalic and head/scalp atraumatic Mouth: dry mucous membranes Eyes PERRL Neck no lymphadenopathy Lymph Lymphatic: no lymphadenopathy noted and no lymphedema noted Resp Resp Narrative: intubated, sedated, on FiO2 of 35%, with PEEP of 5. Cardio regular rate, regular rhythm, S1 normal heart sound, S2 normal heart sound and no murmurs GI normal to inspection, nondistended, normoactive bowel sounds, soft to palpation, non-tender and non-distended Extremity normal capillary refill, no clubbing, cyanosis or edema and no calf tenderness General Extremity: no tenderness to palpation of joints or extremities Skin General Skin Exam: no breakdown Neuro Neuro Narrative: intubated, sedated, RASS score is -4. Motor Exam: general weakness Assessment & Plan Assessment/Plan (1) Acute respiratory failure with hypoxia: (2) Pneumonia: PLAN: Plan #Acute hypoxic respiratory failure * due to pneumonia. On antibiotics * critical care on board * On minimal vent settings with FiO2 of 35% and PEEP of 5. Patient however becomes tachypneic and tachycardic with breathing trials. * Placed on Precedex to see if this will help. * Vent management as per critical care. * 2D echo showed EF of 55% with RVSP of 48mmHg and prominent pericardial fat pad vs small pleural effusion and mild aortic stenosis. * on IV vancomycin and cefepime as well as IV solumedrol * #Acute encephalopathy * patient has remained lethargic. EEG done showed severe diffuse encephalopathy. * critical care on board. * had MRI of the brain which showed no acute intracranial pathology. * #COPD: on breathing treatment with bronchodilators. on Iv solumedrol. #Benign essential hypertension: on Iv hydralazine. also on lasix. #Acute on chronic HFpEF: on IV lasix. Monitor intake and output. #CKD IIIB: stable. Cr at baseline. Creatinine is 1.14 today. DVT prophylaxis: lovenox Charges/Coding Visit Charges Inpatient E&M: 14199 Subs Hosp L3
[2024-01-12] MEDS: dexMEDEtomidine 400 MCG in 0.9% Normal Saline (100mL Bag) 96 ML 24 MCG CONT INF (17:12)
[2024-01-12] MEDS: Atorvastatin Calcium 20 MG Tablet NG (21:01)
[2024-01-12] MEDS: Dexmedetomidine 1,000 mcg in 0.9% NS 240 mL 24 MCG CONT INF (21:07)
[2024-01-13] VITALS (39 sets, daily range): BP systolic 103–171; BP diastolic 69–123; PULSE 68–108; RESP 12–26; TEMP 37.2–37.7; O2SAT 84–100; BMI 37.6
[2024-01-13] MEDS: fentaNYL drip 100 ML 7.5 MCG CONT INF (00:29)
[2024-01-13] MEDS: Ipratropium/Albuterol Sulfate 3 ML AMPUL.NEB INHALATION ×6 (02:34→23:44)
[2024-01-13] MEDS: 0.9% Normal Saline (250mL Bag) 250 ML 15 ML IV ×2 (05:14→17:21)
[2024-01-13] MEDS: Cefepime HCl 2 GM in 0.9% Normal Saline (100mL MB+) 100 ML IV (05:15)
[2024-01-13 05:32] LABS: Hematocrit 31.6 % (37-47); Mean Corp Hgb Conc 31.6 g/dL (32-36); Mean Corpuscular Hgb 28.2 pg (27.0-32.0); Mean Corpuscular Volume 89.3 fL (81-99); Mean Platelet Vol. 11.9 fl (6.2-12.0); POSITIVE COUNT YES; POSITIVE MORPHOLOGY YES; Platelet Count 269 K/mm3 (150-450); RBC Distribution Width CV 16.1 % (11.6-14.6); RBC Distribution Width SD 52.1 fl (35.1-43.9); Red Blood Count 3.54 M/mm3 (4.2-5.4); White Blood Count 15.7 K/mm3 (4.4-11.0)
[2024-01-13 05:53] LABS: Differential Indicated MANUAL DIFF
[2024-01-13 05:56] LABS: Anion Gap 6 (5-15); BUN 48 mg/dL (7-18); BUN/Creat Ratio 52.4 RATIO (10-20); Calcium,Total 8.8 mg/dL (8.5-10.1); Chloride 101 mmol/L (98-107); Creatinine, Serum 0.92 mg/dL (0.55-1.02); EST Glomerular Filtration Rate 70 mL/min (>60); Est Glom Filt Rate - Afr Amer 85 mL/min (>60); Estimated Creatinine Clearance 85.33 ml/min; Glucose 199 mg/dL (74-106); Sodium Level 136 mmol/L (136-145)
[2024-01-13] MEDS: Vancomycin IV 1,000 MG/200 ML BAG 200 MG IV (06:56)
--- NOTE | 2024-01-13 06:57 | PN.CC_ITS ---
Assessment & Plan Assessment/Plan (1) Acute respiratory failure with hypoxia: (2) Pneumonia: PLAN: Plan RECOMMENDATIONS: 1. Proceed with a trial of extubation this morning. 2. Once extubated, wean supplemental oxygen to maintain saturations at or above 90%. 3. Recommend formal swallow evaluation prior to advancement of diet. 4. Aggressive PT/OT. 5. Continue antimicrobials as ordered. 6. Continue bronchodilators and steroids. 7. Ongoing diuresis as tolerated by hemodynamics and renal function. 8. Continue appropriate DVT prophylaxis. IMPRESSIONS: 1. Acute respiratory failure with hypoxemia and hypercapnia Clinical concern for evolving ARDS related to pneumonia. The patient demonstrated increased work of breathing despite the use of noninvasive positive pressure ventilatory support, and was ultimately intubated on January 06. With supportive care, including antimicrobials, bronchodilators, steroids and diuretics, the patient has improved from a respiratory perspective. Autoimmune workup was negative and sputum culture was positive for Streptococcus. Given her improvement, the patient was extubated on the morning of January 12. Plan to wean supplemental oxygen postextubation to maintain saturations at or above 90%. Recommend formal swallow evaluation prior to advancement of diet. PT/OT to work with the patient. 2. History of heart failure with preserved ejection fraction/COPD of unclear severity Continue current supportive measures including scheduled bronchodilators and steroids. Continue attempts at gentle diuresis to maintain euvolemic state, as tolerated by hemodynamics and renal function. 3. History of tobacco dependency/chronic pain syndrome/obesity/history of respiratory failure requiring tracheostomy Complicates care, management, recovery and prognosis. Continue supportive measures as noted above. PT/OT to work with the patient. TIME: 34 minutes of critical care time, independent of procedures, was spent addressing the patient's acute respiratory failure with hypoxemia and hypercapnia, review of all data and collaboration with the care team. Subjective Subjective The patient was seen and examined at the bedside this morning. Events from the last 24 hours have been reviewed. The patient is currently afebrile, hemodynamically stable and maintaining appropriate oxygen saturations on spontaneous mode of mechanical ventilation with an FiO2 requirement of 35%. The patient's EEG demonstrated severe diffuse encephalopathy of unclear etiology. The patient did well this morning on her spontaneous breathing trial. However, upon my initial evaluation of the patient, she was alert and would turn her head in the direction of verbal stimulation, but would not follow any commands. Therefore, she was left on CPAP for several hours. Following this, I reevaluated the patient, at which time, she was noted to have improvement in her mentation and was then able to follow simple commands appropriately. Therefore, the decision was made to proceed with extubation. White count is stable at 16,000. Creatinine is within normal limits. Objective Data Objective Data The patient's most recent lab work, culture data and imaging studies have all been personally reviewed. Surface echocardiogram demonstrated normal LV size and thickness with an ejection fraction of 55%. Right ventricular systolic pressure was estimated to be 48 mmHg. Sputum culture dated January 06 was positive for 1+ Streptococcus group F. Vital Signs: Vital Signs Temp Pulse Resp BP Pulse Ox O2 Del Method O2 Flow Rate 99.6 F H 87 26 H 116/75 96 Mechanical Ventilator 8 01/13/24 04:00 01/13/24 06:52 01/13/24 06:52 01/13/24 06:00 01/13/24 06:52 01/13/24 06:00 01/13/24 04:00 FiO2 35 01/13/24 06:00 Oxygen Flow Rate (L/min) 8 Oxygen Delivery Method Mechanical Ventilator Weight: 212 lb 8.41 oz Body Mass Index (BMI) 37.6 Intake & Output: Intake and Output for Last 24 Hours 01/11/24 01/12/24 01/13/24 23:59 23:59 23:59 Intake Total 3478.15 / 3507.85 2323.90 / 2355.40 1509.33 / 1509.33 Output Total 3090 / 3090 3200 / 3400 200 / 200 Balance 388.15 / 417.85 -876.10 / -1044.60 1309.33 / 1309.33 Lab / Micro Data Attestation: I reviewed the patient's lab results. 01/13/24 05:20 01/13/24 05:20 Labs: Laboratory Results - last 24 hr 01/10/24 06:10: Diff Path Review Reviewed 01/12/24 06:53: Vancomycin Trough 12.8 01/13/24 05:20: WBC 15.7 H, RBC 3.54 L, Hgb 10.0 L, Hct 31.6 L, MCV 89.3, MCH 28.2, MCHC 31.6 L, RDW Std Deviation 52.1 H, RDW Coeff of Beto 16.1 H, Plt Count 269, MPV 11.9, Neut % (Auto) Not Reportable, Sodium 136, Potassium 4.0, Chloride 101, Carbon Dioxide 29.0, Anion Gap 6, BUN 48 H, Creatinine 0.92, Estim Creat Clear Calc 85.33, Est GFR (MDRD) Af Amer 85, Est GFR (MDRD) Non-Af 70, B UN/Creatinine Ratio 52.4 H, Glucose 199 H, Calcium 8.8 Micro: Microbiology 01/06/24 11:10 Blood Culture (Wb) - Right Hand Blood Culture - Final No growth in 5 days. 01/07/24 12:50 Sputum, Induced/Lukens Gram Stain - Final 01/07/24 12:50 Sputum, Induced/Lukens Respiratory Culture - Final Streptococcus group F 01/06/24 21:00 Urine, Random Legionella Antigen - Final 01/06/24 21:00 Urine, Random Streptococcus pneumoniae Antigen (M - Final 01/06/24 15:48 Mucosa - Nasopharyngeal Respiratory Panel (PCR) - Final 01/06/24 11:42 Mucosa - Nasopharyngeal SARS-CoV-2, Influenza & RSV (PCR) - Final ABG Data ABG results: ABG 01/12/24 08:42 Specimen Type ART Sample Site L Radial pH 7.48 H Bicarbonate Actual 30.3 H Total CO2 32 Base Excess 7 H O2 Saturation 96 O2 % 35.0 ABG pCO2 40.9 ABG pO2 77 Chris Test Positive Respiration Rate 16 O2 Delivery Device Adult Vent Vent Mode AC/vc+ Tidal Volume 400.0 POC PEEP 5 Radiography Diagnostic Testing: Radiology Impression Chest X-Ray 01/11/24 15:35 IMPRESSION: Pulmonary findings appear worse. Electronically Signed: Romain Conway MD at 16:19 EDT , Physical Exam Const Constitutional Narrative: Remains intubated and mechanically ventilated. Tolerating spontaneous mode of mechanical ventilation. General Appearance: patient mechanically ventilated HEENT normocephalic and head/scalp atraumatic Mouth: endotracheal tube in place and OG tube in place Eyes PERRL and conjunctivae normal Neck supple General: trachea midline Chest inspection of chest normal Resp Resp Narrative: Coarse mechanical breath sounds. Auscultation: diminished lung sounds Cardio regular rate, regular rhythm, S1 normal heart sound and S2 normal heart sound GI normal to inspection, nondistended, normoactive bowel sounds Extremity no clubbing, cyanosis or edema Skin no rashes or lesions noted Neuro Neuro Narrative: Alert and able to follow simple commands. Psych Mood & Affect: flat affect Charges/Coding Procedures Hospitalists Procedures: 11461 Critical Care 1st Hr
[2024-01-13 07:57] LABS: Anisocytosis 1+; Atypical Lymphocyte 1+ %; Eosinophil 1 % (0-5); Lymphocyte 11 % (19-41); Metamyelocyte 3 % (0-1); Monocyte 7 % (0-10); Myelocyte 1 % (0-0); Neutrophil-Segmented 77 % (47-70); Total Cells Counted 100 (MANUAL DIFF)
[2024-01-13 07:59] LABS: Absolute Neutrophil Count 12.1 X10^3/uL (2.0-7.7)
[2024-01-13 08:20] LABS: Ammonia < 10.0 umol/L (11-32)
[2024-01-13 08:40] LABS: Pathologist Review Reviewed
[2024-01-13] MEDS: 0.9% Saline Lock 10 ML Syringe IV (09:27)
[2024-01-13] MEDS: Enoxaparin 40 MG/0.4 ML Syringe SC (09:27)
[2024-01-13] MEDS: Furosemide 40 MG/4 ML Vial IV (09:27)
--- NOTE | 2024-01-13 09:49 | PN_ITS ---
Subjective Subjective Patient seen and examined. She was extubated this morning. She is quite lethargic so unable to do review of systems. She is on 3 L of oxygen. He has otherwise remained hemodynamically stable. Objective Data Objective Data Vital Signs: Vital Signs Temp Pulse Resp BP Pulse Ox O2 Del Method O2 Flow Rate 99.1 F 87 25 H 119/76 95 Nasal Cannula 3 01/13/24 08:00 01/13/24 09:00 01/13/24 09:00 01/13/24 09:00 01/13/24 09:00 01/13/24 09:00 01/13/24 09:00 FiO2 30 01/13/24 08:00 Oxygen Flow Rate (L/min) 3 Oxygen Delivery Method Nasal Cannula Weight: 212 lb 8.41 oz Body Mass Index (BMI) 37.6 Intake & Output: Intake and Output for Last 24 Hours 01/11/24 01/12/24 01/13/24 23:59 23:59 23:59 Intake Total 3478.15 / 3507.85 2323.90 / 2355.40 1740.93 / 1740.93 Output Total 3090 / 3090 3200 / 3400 200 / 200 Balance 388.15 / 417.85 -876.10 / -1044.60 1540.93 / 1540.93 Lab / Micro Data 01/13/24 05:20 01/13/24 05:20 Labs: Laboratory Results - last 24 hr 01/10/24 06:10: Diff Path Review Reviewed 01/12/24 03:40: Diff Path Review Reviewed 01/13/24 05:20: WBC 15.7 H, RBC 3.54 L, Hgb 10.0 L, Hct 31.6 L, MCV 89.3, MCH 28.2, MCHC 31.6 L, RDW Std Deviation 52.1 H, RDW Coeff of Beto 16.1 H, Plt Count 269, MPV 11.9, Neut % (Auto) Not Reportable, Absolute Neuts (auto) 12.1 H, Absolute Lymphs (auto) 1.70, Total Counted 100, Neutrophils % (Manual) 77 H, L ymphocytes % (Manual) 11 L, Monocytes % (Manual) 7, Eosinophils % (Manual) 1, M etamyelocytes % 3 H, Myelocytes % 1 H, Diff Path Review May foll, Atypical Lymphocytes 1+, Anisocytosis 1+, Sodium 136, Potassium 4.0, Chloride 101, Carbon Dioxide 29.0, Anion Gap 6, BUN 48 H, Creatinine 0.92, Estim Creat Clear Calc 85.33, Est GFR (MDRD) Af Amer 85, Est GFR (MDRD) Non-Af 70, BUN/Creatinine Ratio 52.4 H, Glucose 199 H, Calcium 8.8, TSH 4.060 H 01/13/24 07:20: Ammonia < 10.0 L Micro: Microbiology 01/06/24 11:10 Blood Culture (Wb) - Right Hand Blood Culture - Final No growth in 5 days. 01/07/24 12:50 Sputum, Induced/Lukens Gram Stain - Final 01/07/24 12:50 Sputum, Induced/Lukens Respiratory Culture - Final Streptococcus group F 01/06/24 21:00 Urine, Random Legionella Antigen - Final 01/06/24 21:00 Urine, Random Streptococcus pneumoniae Antigen (M - Final 01/06/24 15:48 Mucosa - Nasopharyngeal Respiratory Panel (PCR) - Final 01/06/24 11:42 Mucosa - Nasopharyngeal SARS-CoV-2, Influenza & RSV (PCR) - Final Physical Exam Const alert and well nourished Orientation / Consciousness: awake and lethargic HEENT normocephalic, head/scalp atraumatic, hearing grossly normal bilaterally, nasal mucous membranes and turbinates normal and moist oral mucous membranes Eyes PERRL, EOMs intact bilaterally and conjunctivae normal Neck no lymphadenopathy, supple, no JVD, thyroid normal and no carotid bruits General: trachea midline Lymph Lymphatic: no lymphadenopathy noted and no lymphedema noted Chest inspection of chest normal Resp no retractions, no use of accessory muscles and No clear to auscultation bilaterally Resp Narrative: Mildly diminished breath sounds bibasilarly. No wheezes or crackles. Currently on 3 L of oxygen by nasal cannula. Auscultation: crackles, rhonchi and wheezes; Negative for rales Cardio regular rate, regular rhythm, S1 normal heart sound, S2 normal heart sound, no rub, no gallops, no clicks and peripheral pulses 2+ throughout Cardio Narrative: 2 out of 6 systolic murmur loudest at right upper sternal border GI normal to inspection, nondistended, normoactive bowel sounds, soft to palpation, non-tender and non-distended Back/Spine normal ROM Extremity normal to inspection, normal capillary refill, no clubbing, cyanosis or edema, no calf tenderness and no pedal edema Extremity Narrative: Pedal and radial pulses are 2+ General Extremity: no tenderness to palpation of joints or extremities Skin no rashes or lesions noted, no wounds, skin turgor normal, no jaundice, no petechiae and no mottling General Skin Exam: no breakdown Neuro CN's II-XII intact bilaterally, moves all extremities and no focal motor deficits Neuro Narrative: lethargic Motor Exam: general weakness Psych Psych Narrative: lethargic, flat affect Assessment & Plan Assessment/Plan (1) Acute respiratory failure with hypoxia: (2) Pneumonia: PLAN: Plan #Acute hypoxic respiratory failure * due to pneumonia. On antibiotics * critical care on board * Was extubated to 3 L of oxygen this morning. * 2D echo showed EF of 55% with RVSP of 48mmHg and prominent pericardial fat pad vs small pleural effusion and mild aortic stenosis. * on IV vancomycin and cefepime as well as IV solumedrol * #Acute encephalopathy * patient has remained lethargic. EEG done showed severe diffuse encephalopathy. * critical care on board. * had MRI of the brain which showed no acute intracranial pathology. * now extubated; on 3L of oxygen by nassal canula * #COPD: on breathing treatment with bronchodilators. on Iv solumedrol. #Benign essential hypertension: on Iv hydralazine. also on lasix. #Acute on chronic HFpEF: on IV lasix. Monitor intake and output. #CKD IIIB:Cr is down to 0.92 today. DVT prophylaxis: lovenox Charges/Coding Visit Charges Inpatient E&M: 95796 Subs Hosp L2
[2024-01-13] MEDS: Pantoprazole Sodium 40 MG in 0.9% Normal Saline (100mL MB+) 100 ML 330 MG IV (10:58)
[2024-01-13] MEDS: Senna/Docusate Sodium 1 Tablet 2 TABLET GT (11:30)
[2024-01-13] MEDS: Fluoxetine HCl 40 MG CAPSULE PO (11:31)
[2024-01-13] MEDS: Montelukast 10 MG Tablet GT (11:31)
[2024-01-13] MEDS: FLUoxetine 20 MG Capsule PO (11:31)
[2024-01-13] MEDS: Ferrous Gluconate 324 MG Tablet PO (11:31)
[2024-01-13 11:53] LABS: Pathologist Review Reviewed
[2024-01-13] MEDS: Acetaminophen 325 MG Tablet 650 MG PO ×2 (12:42→22:41)
[2024-01-13] MEDS: Lisinopril 10 MG Tablet 30 MG PO (12:42)
--- NOTE | 2024-01-13 20:09 | PCM.HOSP.N ---
Hospitalist Note Called due to mild tachycardia with heart rates in the low 100s and elevated blood pressure. Patient takes Coreg at home which has not yet been reinitiated. Lisinopril was reinitiated earlier today for hypertension and while her blood pressure has improved she is still elevated so we will restart home Coreg at 6.25 mg with first dose being now.
[2024-01-13] MEDS: Senna/Docusate Sodium 1 Tablet 2 TABLET PO (20:32)
[2024-01-13] MEDS: Carvedilol 6.25 MG Tablet PO (20:33)
[2024-01-13] MEDS: Pregabalin 75 MG Capsule PO (20:33)
[2024-01-13] MEDS: Atorvastatin Calcium 20 MG Tablet PO (20:33)
[2024-01-14] VITALS (25 sets, daily range): BP systolic 124–166; BP diastolic 84–114; PULSE 86–106; RESP 17–30; TEMP 36.4–37.4; O2SAT 85–99; BMI 36.1
[2024-01-14] MEDS: hydrALAZINE 20 MG/ML Vial 10 MG IV (00:01)
[2024-01-14] MEDS: 0.9% Saline Lock 10 ML Syringe IV (00:02)
[2024-01-14 03:27] LABS: Mean Corp Hgb Conc 31.6 g/dL (32-36); Mean Corpuscular Volume 88.8 fL (81-99); Mean Platelet Vol. 11.8 fl (6.2-12.0); POSITIVE COUNT YES; POSITIVE DIFFERENTIAL YES; POSITIVE MORPHOLOGY YES; Platelet Count 413 K/mm3 (150-450); RBC Distribution Width CV 16.8 % (11.6-14.6); Red Blood Count 4.28 M/mm3 (4.2-5.4)
[2024-01-14] MEDS: Ipratropium/Albuterol Sulfate 3 ML AMPUL.NEB INHALATION ×5 (03:42→20:50)
[2024-01-14 03:47] LABS: Anion Gap 4 (5-15); BUN 40 mg/dL (7-18); BUN/Creat Ratio 46.7 RATIO (10-20); Calcium,Total 9.8 mg/dL (8.5-10.1); Chloride 103 mmol/L (98-107); Creatinine, Serum 0.86 mg/dL (0.55-1.02); EST Glomerular Filtration Rate 76 mL/min (>60); Est Glom Filt Rate - Afr Amer 92 mL/min (>60); Glucose 132 mg/dL (74-106); Potassium 3.5 mmol/L (3.5-5.1); Sodium Level 138 mmol/L (136-145)
[2024-01-14 04:00] LABS: Differential Indicated MANUAL DIFF
[2024-01-14] MEDS: Ibuprofen 400 MG Tablet PO (04:12)
[2024-01-14 04:20] LABS: Eosinophil 2 % (0-5); Lymphocyte 15 % (19-41); Monocyte 9 % (0-10); Neutrophil-Band 3 % (0-5); Neutrophil-Segmented 71 % (47-70); Total Cells Counted 100 (MANUAL DIFF)
--- NOTE | 2024-01-14 07:55 | PCM.PN.INT ---
Assessment & Plan Assessment/Plan (1) Acute respiratory failure with hypoxia: (2) Pneumonia: PLAN: Plan RECOMMENDATIONS: 1. Continue to wean supplemental oxygen to maintain saturations at or above 90%. 2. Further swallow evaluation with dietary advancement, as per speech therapy. 3. PT/OT to work with the patient. 4. The patient has completed her antibiotic treatment course. 5. Continue bronchodilators and steroids. Okay to transition to prednisone, once the patient passes her swallow evaluation. 6. Ongoing diuresis as tolerated by hemodynamics and renal function. 7. Continue appropriate DVT prophylaxis. 8. Encourage incentive spirometer use and mobilize patient as tolerated. 9. The patient is medically stable for transfer out of the intensive care unit. IMPRESSIONS: 1. Acute respiratory failure with hypoxemia and hypercapnia Clinical concern for evolving ARDS related to pneumonia. The patient demonstrated increased work of breathing despite the use of noninvasive positive pressure ventilatory support, and was ultimately intubated on January 06. With supportive care, including antimicrobials, bronchodilators, steroids and diuretics, the patient has improved from a respiratory perspective and was ultimately able to be extubated on January 12.. Autoimmune workup was negative and sputum culture was positive for Streptococcus. Recommend continuing supplemental oxygen to maintain saturations at or above 90%. Further dietary advancement will be considered following completion of speech therapy evaluation. In the interim, encourage incentive spirometer use and mobilize patient as tolerated. 2. History of heart failure with preserved ejection fraction/COPD of unclear severity Continue current supportive measures including scheduled bronchodilators and steroids. Continue attempts at gentle diuresis to maintain euvolemic state, as tolerated by hemodynamics and renal function. 3. History of tobacco dependency/chronic pain syndrome/obesity/history of respiratory failure requiring tracheostomy Complicates care, management, recovery and prognosis. Continue supportive measures as noted above. PT/OT to work with the patient. This note was generated with [employer] dictation software. It may contain incorrect words, spelling, and punctuation that were not noted in checking the note before signing. Subjective Subjective The patient was seen and examined at the bedside this morning. Events from the last 24 hours have been reviewed. The patient is currently afebrile, hemodynamically stable and maintaining appropriate oxygen saturations on 2 L/min via nasal cannula. No overnight events were noted by the nursing staff. White count is increased to 24,000 this morning. Chemistry profile was unremarkable. Speech therapy is planning for a formal swallow evaluation this morning. Objective Data Objective Data The patient's most recent lab work, culture data and imaging studies have all been personally reviewed. Surface echocardiogram demonstrated normal LV size and thickness with an ejection fraction of 55%. Right ventricular systolic pressure was estimated to be 48 mmHg. Sputum culture dated January 06 was positive for 1+ Streptococcus group F. Vital Signs: Vital Signs Temp Pulse Resp BP Pulse Ox O2 Del Method O2 Flow Rate 99.3 F H 101 H 22 H 161/104 H 92 Nasal Cannula 2 01/14/24 04:00 01/14/24 06:50 01/14/24 06:50 01/14/24 06:00 01/14/24 06:51 01/14/24 06:51 01/14/24 06:51 FiO2 30 01/13/24 08:00 Oxygen Flow Rate (L/min) 2 Oxygen Delivery Method Nasal Cannula Weight: 204 lb 2.369 oz Body Mass Index (BMI) 36.1 Intake & Output: Intake and Output for Last 24 Hours 01/12/24 01/13/24 01/14/24 23:59 23:59 23:59 Intake Total 2323.90 / 2355.40 2099.43 / 2099.43 Output Total 3200 / 3400 2800 / 2800 300 / 300 Balance -876.10 / -1044.60 -700.57 / -700.57 -300 / -300 Lab / Micro Data Attestation: I reviewed the patient's lab results. 01/14/24 03:20 01/14/24 03:20 Labs: Laboratory Results - last 24 hr 01/12/24 03:40: Diff Path Review Reviewed 01/13/24 05:20: Absolute Neuts (auto) 12.1 H, Absolute Lymphs (auto) 1.70, Total Counted 100, Neutrophils % (Manual) 77 H, Lymphocytes % (Manual) 11 L, Monocytes % (Manual) 7, Eosinophils % (Manual) 1, Metamyelocytes % 3 H, Myelocytes % 1 H, Diff Path Review Reviewed, Atypical Lymphocytes 1+, Anisocytosis 1+, TSH 4.060 H 01/13/24 07:20: Ammonia < 10.0 L 01/14/24 03:20: WBC 24.0 H, RBC 4.28, Hgb 12.0, Hct 38.0, MCV 88.8, MCH 28.0, MCHC 31.6 L, RDW Std Deviation 52.0 H, RDW Coeff of Beto 16.8 H, Plt Count 413, MPV 11.8, Neut % (Auto) Not Reportable, Absolute Neuts (auto) 17.0 H, Absolute Lymphs (auto) 3.60, Total Counted 100, Neutrophils % (Manual) 71 H, Band Neutrophils % 3, Lymphocytes % (Manual) 15 L, Monocytes % (Manual) 9, Eosinophils % (Manual) 2, Diff Path Review September, Sodium 138, Potassium 3.5, Chloride 103, Carbon Dioxide 31.0, Anion Gap 4 L, BUN 40 H, Creatinine 0.86, Estim Creat Clear Calc 89.30, Est GFR (MDRD) Af Amer 92, Est GFR (MDRD) Non-Af 76, BUN/Creatinine Ratio 46.7 H, Glucose 132 H, Calcium 9.8 Micro: Microbiology 01/06/24 11:10 Blood Culture (Wb) - Right Hand Blood Culture - Final No growth in 5 days. 01/07/24 12:50 Sputum, Induced/Lukens Gram Stain - Final 01/07/24 12:50 Sputum, Induced/Lukens Respiratory Culture - Final Streptococcus group F 01/06/24 21:00 Urine, Random Legionella Antigen - Final 01/06/24 21:00 Urine, Random Streptococcus pneumoniae Antigen (M - Final 01/06/24 15:48 Mucosa - Nasopharyngeal Respiratory Panel (PCR) - Final 01/06/24 11:42 Mucosa - Nasopharyngeal SARS-CoV-2, Influenza & RSV (PCR) - Final ABG Data ABG results: ABG 01/12/24 08:42 Specimen Type ART Sample Site L Radial pH 7.48 H Bicarbonate Actual 30.3 H Total CO2 32 Base Excess 7 H O2 Saturation 96 O2 % 35.0 ABG pCO2 40.9 ABG pO2 77 Chris Test Positive Respiration Rate 16 O2 Delivery Device Adult Vent Vent Mode AC/vc+ Tidal Volume 400.0 POC PEEP 5 Radiography Diagnostic Testing: Radiology Impression Chest X-Ray 01/11/24 15:35 IMPRESSION: Pulmonary findings appear worse. Electronically Signed: Romain Conway MD at 16:19 EDT , Physical Exam Const alert and no apparent distress General Appearance: cooperative HEENT normocephalic, head/scalp atraumatic and moist oral mucous membranes Eyes PERRL, EOMs intact bilaterally and conjunctivae normal Neck supple General: trachea midline Chest inspection of chest normal Resp normal respiratory effort Auscultation: diminished lung sounds Cardio regular rate, regular rhythm, S1 normal heart sound and S2 normal heart sound GI normal to inspection, nondistended, normoactive bowel sounds Extremity no clubbing, cyanosis or edema Skin no rashes or lesions noted Neuro CN's II-XII intact bilaterally, moves all extremities and no focal motor deficits Psych Mood & Affect: flat affect Charges/Coding Visit Charges Inpatient E&M: 55420 Subs Hosp L3
[2024-01-14] MEDS: Carvedilol 6.25 MG Tablet PO ×2 (08:41→17:27)
--- NOTE | 2024-01-14 08:41 | SP.MBSS_ITS ---
Modified Barium Swallow Patient Information Study Date: 01/14/24 Study Time: 09:00 Direct Billable Minutes: 111 Total Minutes procedure & reportin Diagnosis: PNA J18.9 Referring Physician: Armond Robertson Reason for Referral: Objectively assess swallow function, assess risk for aspiration, and determine recommendations for least restrictive diet textures and compensatory strategies to improve safety of swallow. Medical History: PMH: CKD stage 3b, GFR 30-44 ml/min, Anxiety, Depression, Kidney stones, GERD, Asthma, CHF, TIA (~2001), History of stroke (~2001), Non-rheumatic tricuspid valve insufficiency, DDD, History of bicuspid aortic valve, HTN, Hx of DVT of lower extremity, History of PE), Colitis, Cough, Chest pain, Thrush, Normochromic normocytic anemia, Borderline personality disorder, Pulmonary HTN, Seizure disorder, ARDS (adult respiratory distress syndrome), Acute respiratory failure with hypoxia, Hematemesis, Leiomyosarcoma, Syringomyelia, Migraine, Exercise-induced asthma, Arthritis, Anxiety disorder, Fibromyalgia, AI (aortic insufficiency). Pt presented to [facility] ED 01/06/2024 with shortness of breath. She had felt ill over the past several days and had progressively gotten worsening shortness of breath and cough. She has a history of respiratory failure requiring mechanical ventilation and eventually tracheostomy due to ARDS from a pneumonia she previously suffered (2022 per patient). This hospitalization occurred at [facility] about 1 year ago. Patient reports she wears oxygen at night. Pt was hypoxic in the ED. Patient states she quit smoking last week. At that point she admits she was smoking about 5 cigarettes daily. In the ED, she was placed on 6 L nasal cannula which improved her oxygenation status up to 96% however she was still in some mild respiratory distress with pursed lip breathing and some accessory muscle use. A CTA of her chest was performed and showed no evidence of pulmonary embolus however she has diffuse patchy bilateral groundglass changes throughout bilateral lung dang both upper and lower lobes. This seems to be most consistent will with an atypical pneumonia versus heart failure. She was admitted for management of acute respiratory failure with hypoxia and PNA amongst other comorbidities. The patient demonstrated increased work of breathin g despite the use of noninvasive positive pressure ventilatory support, and was ultimately intubated 01/07/2024. She was extubated 01/13/[address] consult to formally assess swallow function prior to diet advancement. BSE on 01/13/24 revealed no overt s/s of aspiration with trials of ice chips, thin water by tsp, or applesauce; however, pt was recommended NPO (Ok for ice chips & meds crushed in ) with plans for MBSS prior to diet advancement due to concerns for the patient being at high risk for silent aspiration. Current Diet Ordered: NPO - ok for ice chips & meds crushed in Dentition: Natural Teeth Mental Status: WNL Respiratory Status: Oxygenating on 2L/M nasal cannula Penetration-Aspiration Scale Penetration-Aspiration Scale: OBJECTIVE ASSESSMENT OF SWALLOW FUNCTION (QUANTITATIVE ? PER TRIAL): PENETRATION / ASPIRATION SCALE (LEOS): 1 = does not enter airway 2 = enters airway/above vocal folds/ejected 3 = enters airway/above vocal folds/not ejected 4 = enters airway/contacts vocal folds/ejected 5 = enters airway/contacts vocal folds/not ejected 6 = enters airway/below vocal folds/ejected 7 = enters airway/below vocal folds/not ejected despite effort 8 = enters airway/below vocal folds/no effort VIDEOFLOROSCOPIC SCALE SCORE (LEOS): Grade I = aspiration of material that has penetrated into the laryngeal vestibule, intact cough reflex Grade II = aspiration < 10 % of the bolus, intact cough reflex Grade III = aspiration of < 10 % of the bolus, reduced cough reflex or aspiration of > 10 % of the bolus, intact cough reflex Grade IV = aspiration of > 10 % of the bolus, reduced cough reflex Penetration-Aspiration Scale Score Thin Liquid via teaspoon: Result: 2= enter airway/above vocal folds/ejected Thin Liquid via teaspoon Trial 2: Result: 1= does not enter airway Thin Liquid via small single sip: cup: Result: 7= enters airways/below vocal folds/not ejected despite effort Narka Thick Liquid via small single sip: cup: Result: 1= does not enter airway Pudding via teaspoon: Result: 1= does not enter airway Comment: Esophageal screen - Retention of pudding in the mid esophagus. Retrograde flow of barium pudding through the LES to the lower esophagus. Narka Thick Liquid via single sip: straw: Result: 5= enters airways/contacts vocal folds/not ejected Comment: Esophageal screen - Liquid wash somewhat cleared retention of pudding. Thin Liquid via teaspoon Trial 3: Result: 7= enters airways/below vocal folds/not ejected despite effort Narka Thick Liquid via teaspoon: Result: 1= does not enter airway Narka Thick Liquid via teaspoon Trial 2: Result: 1= does not enter airway 1/4 Cookie: Result: 1= does not enter airway Thin Liquid via small single sip: cup Effortful swallow: Result: 1= does not enter airway Thin Liquid via large single sip: cup Effortful swallow: Result: 7= enters airways/below vocal folds/not ejected despite effort Thin Liquid via teaspoon Effortful swallow: Result: 1= does not enter airway Narka Thick Liquid via teaspoon Trial 3: Result: 5= enters airways/contacts vocal folds/not ejected Honey Thick Liquid via teaspoon: Result: 1= does not enter airway Honey Thick Liquid via small single sip: cup: Result: 1= does not enter airway Oral Phase Labial Seal: No Labial Escape Tongue Control During Bolus Hold: Posterior escape of less than half of bolus Bolus Preparation/Mastication: Slow prolonged chewing/mashing with complete recollection Bolus Transport/Lingual Motion: Slowed tongue motion Oral Residue: Residue collection on oral structures Pharyngeal Phase Initiation of Pharyngeal Swallow: Bolus head in pyriforms Soft Palate Elevation: No bolus between soft palate and pharyngeal wall Laryngeal Elevation: Partial superior movement thyroid cart/partial apprx aryt- epig petiole Anterior Hyoid Excursion: Partial anterior movement Epiglottic Movement: Complete inversion Laryngeal Vestibule Closure at Height of Swallow: Incomplete; narrow column of air/contrast in laryngeal vestibule Pharyngeal Stripping Wave: Present - diminished Pharyngoesophageal Segment Opening: Parital distension and partial duration; parital obstruction of flow Tongue Base Retraction: Narrow column of contrast between tongue base & post. pharyngeal wall Pharyngeal Residue: Collection of residue within or on pharyngeal structures Esophageal Phase Esophageal Clearance: Esophageal retention w/ retrograde flow below pharyngoesophageal seg. Treatment Strategies Effects of treatment strategies attemped:: Effortful swallow = somewhat effective. Cough and re-swallow = somewhat effective. Did not trial additional strategies due to patient fatiguing. Diagnosis/Impression Diagnosis: Moderate oropharyngeal dysphagia R13.12 Impression: The oral phase is primarily marked by... -Mildly decreased bolus control of thin liquids (<1/2 of bolus) to the pyriforms prior to swallow onset with large sip by cup. -Slowed but complete mastication of cookie. -Trace-mild oral residue after the swallow. The pharyngeal phase is primarily marked by... -Decreased airway closure during the swallow due to decreased laryngeal elevation and anterior hyoid excursion. -Trace-mild pharyngeal residue in the vallecula and pyriforms after the swallow due to mildly decreased tongue base retraction, pharyngeal stripping wave, and UES opening/duration. -Aspiration with weak, delayed cough reflex of thin liquids via cup. Deep laryngeal penetration of mildly thick liquids via straw and tsp to the vocal folds with no reflexive cough. RADIOISOTOPE TECHNOLOGIST cued cough and re-swallow after mildly thick liquids via straw and tsp to somewhat clear residues from laryngeal vestibule; however, cough is weak. The esophageal phase is primarily marked by... -Small CP bar at the level of C4 - trace retention of barium in the upper esophagus. -Retention of pudding in the mid esophagus. Retrograde flow of barium pudding through the LES to the lower esophagus. Liquid wash (mildly thick) somewhat chip red retention of pudding. Recommendations Diet: Mechanical Soft Textures (Soft and bite size textures - IDDSI Level 6) and Honey-thick Liquids Compensatory Strategies: Small Bites, Small Sips, Slow Rate, Alternate bites/solids and sips/liquids, Sitting upright and Remain sitting upright for 30 minutes after PO intake Supervision: 1:1 Close Supervision (family or staff) Recommend Repeat Modified Barium Swallow: Yes (In 1-2 weeks after implementation of oropharyngeal exercise program) Need for Skilled Speech Therapy Services: Yes Comment: -Train the patient in use of strategies to decrease risk for aspiration and reflux aspiration. -Ongoing assessment of diet tolerance of recommended textures. Trial thin liquids via tsp w/ effortful swallows w/ RADIOISOTOPE TECHNOLOGIST only. -Train the patient in oropharyngeal exercise program to improve airway closure, tongue base retraction, and cough strength (Zully, Jono, Effortful breath hold and swallow, Falsetto). Education Completed: 1. Described result of evaluation., 2. Pt understands evaluation & agrees with goals and treatment plan. and 7. Pt requires further education on strategies & risks. Status Active ST Patient: Active Contact Information [facility] Speech Therapy:: Joycelyn Melissa M.A. [facility]-RADIOISOTOPE TECHNOLOGIST? Speech-Language Pathologist?? [facility] [address] [place] [address]? [email or web address]?? [phone]
--- NOTE | 2024-01-14 09:23 | PN_ITS ---
Subjective Subjective Patient seen and examined. She was alert but weak. She is on 2L of oxygen. She had no active complaints. She is for swallow evaluation today. She has remained hemodynamically stable. Objective Data Objective Data Vital Signs: Vital Signs Temp Pulse Resp BP Pulse Ox O2 Del Method O2 Flow Rate 99.3 F H 101 H 22 H 161/104 H 92 Nasal Cannula 2 01/14/24 04:00 01/14/24 06:50 01/14/24 06:50 01/14/24 06:00 01/14/24 06:51 01/14/24 06:51 01/14/24 06:51 FiO2 30 01/13/24 08:00 Oxygen Flow Rate (L/min) 2 Oxygen Delivery Method Nasal Cannula Weight: 204 lb 2.369 oz Body Mass Index (BMI) 36.1 Intake & Output: Intake and Output for Last 24 Hours 01/12/24 01/13/24 01/14/24 23:59 23:59 23:59 Intake Total 2323.90 / 2355.40 2099.43 / 2099.43 Output Total 3200 / 3400 2800 / 2800 300 / 300 Balance -876.10 / -1044.60 -700.57 / -700.57 -300 / -300 Lab / Micro Data 01/14/24 03:20 01/14/24 03:20 Labs: Laboratory Results - last 24 hr 01/13/24 05:20: Diff Path Review Reviewed 01/14/24 03:20: WBC 24.0 H, RBC 4.28, Hgb 12.0, Hct 38.0, MCV 88.8, MCH 28.0, M CHC 31.6 L, RDW Std Deviation 52.0 H, RDW Coeff of Beto 16.8 H, Plt Count 413, MPV 11.8, Neut % (Auto) Not Reportable, Absolute Neuts (auto) 17.0 H, Absolute Lymphs (auto) 3.60, Total Counted 100, Neutrophils % (Manual) 71 H, Band Neutrophils % 3, Lymphocytes % (Manual) 15 L, Monocytes % (Manual) 9, Eosinophils % (Manual) 2, Diff Path Review September foll, Sodium 138, Potassium 3.5, Chloride 103, Carbon Dioxide 31.0, Anion Gap 4 L, BUN 40 H, Creatinine 0.86, Estim Creat Clear Calc 89.30, Est GFR (MDRD) Af Amer 92, Est GFR (MDRD) Non-Af 76, BUN/Creatinine Ratio 46.7 H, Glucose 132 H, Calcium 9.8 Micro: Microbiology 01/06/24 11:10 Blood Culture (Wb) - Right Hand Blood Culture - Final No growth in 5 days. 01/07/24 12:50 Sputum, Induced/Lukens Gram Stain - Final 01/07/24 12:50 Sputum, Induced/Lukens Respiratory Culture - Final Streptococcus group F 01/06/24 21:00 Urine, Random Legionella Antigen - Final 01/06/24 21:00 Urine, Random Streptococcus pneumoniae Antigen (M - Final 01/06/24 15:48 Mucosa - Nasopharyngeal Respiratory Panel (PCR) - Final 01/06/24 11:42 Mucosa - Nasopharyngeal SARS-CoV-2, Influenza & RSV (PCR) - Final Physical Exam Const alert, oriented x3 and no apparent distress General Appearance: cooperative Orientation / Consciousness: awake and lethargic HEENT normocephalic, head/scalp atraumatic, hearing grossly normal bilaterally, nasal mucous membranes and turbinates normal and moist oral mucous membranes Eyes PERRL, EOMs intact bilaterally and conjunctivae normal Neck no lymphadenopathy, supple, no JVD, thyroid normal and no carotid bruits Neck Narrative: General: trachea midline Lymph Lymphatic: no lymphadenopathy noted and no lymphedema noted Chest inspection of chest normal Resp normal respiratory effort, no retractions, no use of accessory muscles and No clear to auscultation bilaterally Resp Narrative: Mildly diminished breath sounds bibasilarly. No wheezes or crackles. Currently on 2 L of oxygen by nasal cannula. Auscultation: crackles, rhonchi and wheezes; Negative for rales Cardio regular rate, regular rhythm, S1 normal heart sound, S2 normal heart sound, no rub, no gallops, no clicks and peripheral pulses 2+ throughout Cardio Narrative: 2 out of 6 systolic murmur loudest at right upper sternal border GI normal to inspection, nondistended, normoactive bowel sounds, soft to palpation, non-tender and non-distended Back/Spine normal ROM Extremity normal to inspection, normal capillary refill, no clubbing, cyanosis or edema, no calf tenderness and no pedal edema Extremity Narrative: Pedal and radial pulses are 2+ General Extremity: no tenderness to palpation of joints or extremities Skin no rashes or lesions noted, no wounds, skin turgor normal, no jaundice, no petechiae and no mottling General Skin Exam: no breakdown Neuro oriented x3, CN's II-XII intact bilaterally, moves all extremities and no focal motor deficits Neuro Narrative: lethargic Motor Exam: general weakness Psych Psych Narrative: lethargic, flat affect Mood & Affect: flat affect Assessment & Plan Assessment/Plan (1) Acute respiratory failure with hypoxia: (2) Pneumonia: PLAN: Plan #Acute hypoxic respiratory failure * due to pneumonia. * critical care on board * Was extubated to 3 L of oxygen yesterday. Now on 2L of oxygen by nasal canula * 2D echo showed EF of 55% with RVSP of 48mmHg and prominent pericardial fat pad vs small pleural effusion and mild aortic stenosis. * on IV vancomycin and cefepime as well as IV solumedrol * for swallow evaluation today #Acute encephalopathy * patient has remained lethargic. EEG done showed severe diffuse encephalopathy. * critical care on board. * had MRI of the brain which showed no acute intracranial pathology. * now extubated; on 2L of oxygen by nasal canula * #COPD: on breathing treatment with bronchodilators. on Iv solumedrol. #Benign essential hypertension: on Iv hydralazine. also on lasix. #Acute on chronic HFpEF: on IV lasix. Monitor intake and output. #CKD IIIB:Cr is down to 0.92 today. DVT prophylaxis: lovenox Disposition: for likely transfer out of ICU today Charges/Coding Visit Charges Inpatient E&M: 94167 Subs Hosp L2
[2024-01-14] MEDS: Pantoprazole Sodium 40 MG in 0.9% Normal Saline (100mL MB+) 100 ML 330 MG IV (09:49)
[2024-01-14] MEDS: Montelukast 10 MG Tablet PO (09:50)
[2024-01-14] MEDS: Enoxaparin 40 MG/0.4 ML Syringe SC (09:50)
[2024-01-14] MEDS: Senna/Docusate Sodium 1 Tablet 2 TABLET PO ×2 (09:50→22:18)
[2024-01-14] MEDS: Furosemide 40 MG/4 ML Vial IV (09:50)
[2024-01-14] MEDS: Fluoxetine HCl 40 MG CAPSULE PO (09:51)
[2024-01-14] MEDS: Lisinopril 10 MG Tablet 30 MG PO (09:51)
[2024-01-14] MEDS: FLUoxetine 20 MG Capsule PO (09:51)
[2024-01-14] MEDS: Pregabalin 75 MG Capsule PO ×2 (10:00→22:18)
--- NOTE | 2024-01-14 10:38 | CASEMGMT ---
Social Work SW met with pt and introduced self and role of SW. SDOH assessment completed (see SDOH documentation). SW also spoke with pt regarding discharge plan and pt is understanding and agreeable that she will need short term SNF prior to return home where she lives independently with her parents. A list of SNF providers including quality and resource use data and consistent with the patient?s preferred geographic region, medical needs, and insurance network were provided from the [facility] Guide. Pt preferred provider is [facility]. DC media assistant notified and to make referral. Pt will need precert prior to admission. Pt requesting SW assist with completing advance directives. SW assisted pt in completing HCPOA in which pt named her father Karel Loya primary and her Sister Rolanda Loya as secondary decision makers. Nursing then entered room to take pt to a procedure. SW will revisit pt to complete Living Will as able. EM Phan
--- NOTE | 2024-01-14 11:06 | CASEMGMT ---
Addendum entered by Chrissie Cortez 01/14/24 15:33: [facility] accepted. Requested precert be submitted. Chrissie Cortez DC Planning Asst. Original Note: Discharge Planning Referral sent to [facility]. Chrissie Cortez DC Planning Asst.
[2024-01-14] MEDS: Ferrous Gluconate 324 MG Tablet PO (13:13)
[2024-01-14 13:17] LABS: Pathologist Review Reviewed
--- NOTE | 2024-01-14 17:10 | CASEMGMT ---
SW completed Healthcare Living Will with patient. Copies were made and given to patient along with originals. SW also gave patient the original and copies of the Healthcare POA that was completed with patient earlier today. SW notified patient that [facility] can take her. Fabby Puckett DATA QUALITY CONSULTANT GERTRUDIS
[2024-01-14] MEDS: Atorvastatin Calcium 20 MG Tablet PO (22:18)
[2024-01-14] MEDS: tiZANidine HCl 2 MG Tablet 4 MG PO (23:50)
[2024-01-15] VITALS (14 sets, daily range): BP systolic 96–123; BP diastolic 61–87; PULSE 88–105; RESP 18–22; TEMP 36.5–37.2; O2SAT 87–100; BMI 35.3
[2024-01-15] MEDS: Ipratropium/Albuterol Sulfate 3 ML AMPUL.NEB INHALATION ×5 (00:14→19:05)
[2024-01-15] MEDS: Acetaminophen 325 MG Tablet 650 MG PO (00:44)
[2024-01-15 07:42] LABS: Basophil# 0.07 X10^3/uL; Eosinophil# 0.21 X10^3/uL; Hematocrit 40.8 % (37-47); Hemoglobin 12.6 g/dL (12.0-15.0); Mean Corp Hgb Conc 30.9 g/dL (32-36); Mean Corpuscular Hgb 28.1 pg (27.0-32.0); Mean Corpuscular Volume 90.9 fL (81-99); Mean Platelet Vol. 11.9 fl (6.2-12.0); Monocyte# 2.32 X10^3/uL; NRBC Flagged by Analyzer 0.1 % (0-5); Neutrophil # 16.97 X10^3/uL (2.7-7.7); POSITIVE DIFFERENTIAL YES; POSITIVE MORPHOLOGY YES; Platelet Count 424 K/mm3 (150-450); RBC Distribution Width CV 16.8 % (11.6-14.6); RBC Distribution Width SD 53.8 fl (35.1-43.9); Red Blood Count 4.49 M/mm3 (4.2-5.4); White Blood Count 24.2 K/mm3 (4.4-11.0)
[2024-01-15 07:44] LABS: Differential Indicated SCAN CRITERIA MET
[2024-01-15 08:13] LABS: Anion Gap 10 (5-15); BUN 57 mg/dL (7-18); BUN/Creat Ratio 28.1 RATIO (10-20); Calcium,Total 9.8 mg/dL (8.5-10.1); Chloride 100 mmol/L (98-107); Creatinine, Serum 2.03 mg/dL (0.55-1.02); EST Glomerular Filtration Rate 28 mL/min (>60); Est Glom Filt Rate - Afr Amer 34 mL/min (>60); Estimated Creatinine Clearance 37.37 ml/min; Glucose 130 mg/dL (74-106); Potassium 3.8 mmol/L (3.5-5.1); Sodium Level 136 mmol/L (136-145)
[2024-01-15 08:36] LABS: Atypical Lymphocyte 1+ %; Blast 2 % (0-0); Lymphocyte 15 % (19-41); Metamyelocyte 1 % (0-1); Monocyte 7 % (0-10); Myelocyte 2 % (0-0); Neutrophil-Segmented 73 % (47-70); Total Cells Counted 100 (MANUAL DIFF)
[2024-01-15 08:37] LABS: Anisocytosis 1+; Platelet Morphology LARGE; Polychromasia RARE
[2024-01-15 08:38] LABS: Platelet Estimate ADEQUATE (ADEQ); Scan Smear per Review Criteria MANUAL DIFF
[2024-01-15 08:41] LABS: Absolute Neutrophil Count 17.8 X10^3/uL (2.0-7.7)
[2024-01-15] MEDS: Pregabalin 75 MG Capsule PO ×2 (10:23→21:08)
[2024-01-15] MEDS: Enoxaparin 40 MG/0.4 ML Syringe SC (10:23)
[2024-01-15] MEDS: FLUoxetine 20 MG Capsule PO (10:24)
[2024-01-15] MEDS: Senna/Docusate Sodium 1 Tablet 2 TABLET PO ×2 (10:24→21:08)
[2024-01-15] MEDS: Polyethylene Glycol 3350 17 GM PACKET PO (10:24)
[2024-01-15] MEDS: Fluoxetine HCl 40 MG CAPSULE PO (10:24)
[2024-01-15] MEDS: Pantoprazole Sodium 40 MG in 0.9% Normal Saline (100mL MB+) 100 ML 330 MG IV (10:25)
[2024-01-15] MEDS: Montelukast 10 MG Tablet PO (10:25)
[2024-01-15] MEDS: 0.9% Saline Lock 10 ML Syringe IV (10:26)
--- NOTE | 2024-01-15 11:04 | PCM.PROGNOTE ---
Subjective Subjective Patient seen and examined. Her mother was by her bedside. She had no active complaints. She is on 2 L of oxygen. She denied any cough, chest pain, palpitations, nausea vomiting or any other symptoms. Review of systems otherwise negative. Objective Data Objective Data Vital Signs: Vital Signs Temp Pulse Resp BP Pulse Ox O2 Del Method O2 Flow Rate 98.1 F 102 H 18 96/67 100 Nasal Cannula 2 01/15/24 10:01/15/24 10:01/15/24 10:01/15/24 10:01/15/24 10:01/15/24 10:01/15/24 10:21 FiO2 30 01/13/24 08:00 Oxygen Flow Rate (L/min) 2 Oxygen Delivery Method Nasal Cannula Weight: 199 lb 8.293 oz Body Mass Index (BMI) 35.3 Intake & Output: Intake and Output for Last 24 Hours 01/13/24 01/14/24 01/15/24 23:59 23:59 23:59 Intake Total 2099.43 / 2099.43 410 / 410 Output Total 2800 / 2800 1100 / 1100 100 / 100 Balance -700.57 / -700.57 -690 / -690 -100 / -100 Lab / Micro Data 01/15/24 07:33 01/15/24 07:33 Labs: Laboratory Results - last 24 hr 01/14/24 03:20: Diff Path Review Reviewed 01/15/24 07:33: WBC 24.2 H, RBC 4.49, Hgb 12.6, Hct 40.8, MCV 90.9, MCH 28.1, MCHC 30.9 L, RDW Std Deviation 53.8 H, RDW Coeff of Beto 16.8 H, Plt Count 424, MPV 11.9, Immature Gran % (Auto) PROSTHETIC AIDES TEACHER, Neut % (Auto) PROSTHETIC AIDES TEACHER, Lymph % (Auto) PROSTHETIC AIDES TEACHER, Dixie % (Auto) PROSTHETIC AIDES TEACHER, Eos % (Auto) PROSTHETIC AIDES TEACHER, Baso % (Auto) PROSTHETIC AIDES TEACHER, Absolute Neuts (auto) 17.8 H, Absolute Lymphs (auto) 3.60, Total Counted 100, Neutrophils % (Manual) 73 H, Lymphocytes % (Manual) 15 L, Monocytes % (Manual) 7, Metamyelocytes % 1, Myelocytes % 2 H, Blast Cells % 2 H*, Nucleated RBC % 0.1, Diff Path Review May eric Atypical Lymphocytes 1+, Platelet Estimate ADEQUATE, Plt Morphology Comment LARGE, Polychromasia RARE, Anisocytosis 1+, Sodium 136, Potassium 3.8, Chloride 100, Carbon Dioxide 26.0, Anion Gap 10, BUN 57 H, Creatinine 2.03 H, Estim Creat Clear Calc 37.37, Est GFR (MDRD) Af Amer 34 L, Est GFR (MDRD) Non-Af 28 L, BUN/Creatinine Ratio 28.1 H, Glucose 130 H, Calcium 9.8 Micro: Microbiology 01/06/24 11:10 Blood Culture (Wb) - Right Hand Blood Culture - Final No growth in 5 days. 01/07/24 12:50 Sputum, Induced/Lukens Gram Stain - Final 01/07/24 12:50 Sputum, Induced/Lukens Respiratory Culture - Final Streptococcus group F 01/06/24 21:00 Urine, Random Legionella Antigen - Final 01/06/24 21:00 Urine, Random Streptococcus pneumoniae Antigen (M - Final 01/06/24 15:48 Mucosa - Nasopharyngeal Respiratory Panel (PCR) - Final 01/06/24 11:42 Mucosa - Nasopharyngeal SARS-CoV-2, Influenza & RSV (PCR) - Final Physical Exam Const alert, oriented x3 and no apparent distress; Negative for average body habitus Constitutional Narrative: frail General Appearance: cooperative Orientation / Consciousness: awake HEENT normocephalic, head/scalp atraumatic, hearing grossly normal bilaterally, nasal mucous membranes and turbinates normal and moist oral mucous membranes Eyes PERRL, EOMs intact bilaterally and conjunctivae normal Eyes Narrative: No scleral icterus Neck no lymphadenopathy, supple, no JVD, thyroid normal and no carotid bruits Neck Narrative: General: trachea midline Lymph Lymphatic: no lymphadenopathy noted and no lymphedema noted Chest inspection of chest normal Resp Resp Narrative: Mildly diminished breath sounds bibasilarly. Bilateral crackles. Currently on 2 L of oxygen by nasal cannula. Auscultation: rales Cardio regular rate, regular rhythm, S1 normal heart sound, S2 normal heart sound, no rub, no gallops, no clicks and peripheral pulses 2+ throughout Cardio Narrative: 2 out of 6 systolic murmur loudest at right upper sternal border GI normal to inspection, nondistended, normoactive bowel sounds, soft to palpation, non-tender and non-distended Back/Spine normal ROM Extremity normal to inspection, normal capillary refill, no clubbing, cyanosis or edema, no calf tenderness and no pedal edema General Extremity: no tenderness to palpation of joints or extremities Skin no rashes or lesions noted, no wounds, skin turgor normal, no jaundice, no petechiae and no mottling General Skin Exam: no breakdown Neuro oriented x3 Neuro Narrative: lethargic Speech: speech normal Motor Exam: general weakness Psych Psych Narrative: lethargic, flat affect Mood & Affect: anxious and flat affect Assessment & Plan Assessment/Plan (1) Acute respiratory failure with hypoxia: (2) Pneumonia: PLAN: Plan #Acute hypoxic respiratory failure due to pneumonia. critical care on board Was intubated on admission but extubated a couple of days ago. Now transferred to the PCU. On 2 L of oxygen. 2D echo showed EF of 55% with RVSP of 48mmHg and prominent pericardial fat pad vs small pleural effusion and mild aortic stenosis. Completed a course of vancomycin and cefepime. Has some bilateral crackles. Will start on incentive spirometry. Diurese as needed to help with blood overload. #Acute encephalopathy EEG done showed severe diffuse encephalopathy. critical care on board. had MRI of the brain which showed no acute intracranial pathology. On 2 L of oxygen. Her mentation has improved. #COPD: on breathing treatment with bronchodilators. Will switch to p.o. Solu-Medrol 40 mg daily for 5 days. #Benign essential hypertension: on Iv hydralazine. also on lasix. #Acute on chronic HFpEF: Was on IV Lasix but this has been discontinued because her creatinine trended up sharply 2/2 today. #CKD IIIB: Creatinine is up to 2.8 today. Lasix discontinued. Will hold off on hydration with IV fluids for now due to history of heart failure. DVT prophylaxis: lovenox Disposition: for likely transfer out of ICU today Charges/Coding Visit Charges Inpatient E&M: 35699 Subs Hosp L2
--- NOTE | 2024-01-15 11:37 | TREXTCAR_ITS ---
Diet Diet Order/Speech Therapy: 01/14/24 12:34 Diet: Cardiac - Heart Healthy Food consistency:: Soft & Bite Sized Liquid Consistency:: Honey/Moderately Thick Dietary Modifications:: Sodium Restricted Diet Comments: Direct supervision (family ok to supervise if present) Routine Orders/Code Status Enema Type: Fleetz Enema Frequency: Daily PRN Suppository Type: Dulcolax 10mg Suppository Frequency: Daily PRN O2 Frequency: PRN Keep PO Greater than or Equal to (%): 90 Therapies Weight Bearing: Weight bearing as tolerated Physical Therapy: Eval and Treat Occupational Therapy: Eval and Treat Problem/Diagnosis (1) Acute respiratory failure with hypoxia: Status: Acute Code(s): J96.01 - Acute respiratory failure with hypoxia (2) Pneumonia: Status: Acute Code(s): J18.9 - Pneumonia, unspecified organism Plan #Acute hypoxic respiratory failure * due to pneumonia. * critical care on board * Was intubated on admission but extubated a couple of days ago. Now transferred to the PCU. On 2 L of oxygen. * 2D echo showed EF of 55% with RVSP of 48mmHg and prominent pericardial fat pad vs small pleural effusion and mild aortic stenosis. * Completed a course of vancomycin and cefepime. * Has some bilateral crackles. Will start on incentive spirometry. * Diurese as needed to help with blood overload. * #Acute encephalopathy * EEG done showed severe diffuse encephalopathy. * critical care on board. * had MRI of the brain which showed no acute intracranial pathology. * On 2 L of oxygen. Her mentation has improved. * #COPD: on breathing treatment with bronchodilators. Will switch to p.o. Solu- Medrol 40 mg daily for 5 days. #Benign essential hypertension: on Iv hydralazine. also on lasix. #Acute on chronic HFpEF: Was on IV Lasix but this has been discontinued because her creatinine trended up sharply 2/2 today. #CKD IIIB: Creatinine is up to 2.8 today. Lasix discontinued. Will hold off on hydration with IV fluids for now due to history of heart failure. DVT prophylaxis: lovenox Disposition: for likely transfer out of ICU today Allergies/Procedures Done in Hospital Allergies amitriptyline Allergy (Verified 12/29/23 20:55) Other states rhabdomyolosis from it amoxicillin (Amoxicillin) Allergy (Verified 12/29/23 20:55) Rash erythromycin base (Erythromycin Base) Allergy (Verified 12/29/23 20:55) Rash hydroxyzine Allergy (Verified 12/10/23 10:24) Rash levofloxacin (From Levaquin) Allergy (Verified 12/29/23 20:55) Swelling milnacipran Allergy (Verified 12/29/23 20:55) Other states got rhabdomyolysis from it milnacipran HCl (From Savella) Allergy (Verified 12/29/23 20:55) Other states had rhabdomyolysis celecoxib (From Celebrex) Adverse Reaction (Verified 12/29/23 20:55) Other suicidal thoughts diphenhydramine HCl (From Benadryl) Adverse Reaction (Verified 12/29/23 20:55) muscle spasms duloxetine HCl (From Cymbalta) Adverse Reaction (Verified 12/29/23 20:55) Other states causes suicidal thoughts meloxicam Adverse Reaction (Verified 12/29/23 20:55) Swelling of legs/chest pain Type of Care/Length of Stay Estimated LOS: Convalescent Care Less Than 30 days Type of Care Needed: Skilled Rehab Potential: Fair Prognosis: Fair Additional Orders/Day of Discharge Day of Discharge: 01/15/24 Dietary and Speech Recommendations Dietitian Recommendations/Changes: Will change diet to cardiac/sodium-restricted with consistency/texture 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 Will offer ONS as needed once PO established with meals. Fluid restriction as needed per physician. Discharge Plan Admission Admit Date/Time: 01/06/24 14:54 Primary Reason for Your Visit: acute hypoxic respiratory failure Attending Provider: Mariela Renae Primary Care Provider: Bill Dai Consulting Providers: Marlee Gonzalez; Paras Sotelo; Ryan Boss; Tamir Fisher; Andrew Wu; Armond Robertson; Deric Jonas; Micah Muñoz; Joshua Skinner; Malika Omalley; Jaylan Sandoval; Jaziel Lake; Claudia Fernandez; Olivier Cohn; Devendra,Ranulfo; Benji Drew; Jens Groves; Herberth Nicole; Bill Mckeon; Tiarra Bentley; Maribel Hamilton; Lien Zaragoza; Brian Marquez; Jose Jang; Jimmy Figueroa; FESTUS DEE; Vilma Urias; Chanel Puri; Bart Madrigal; Yessi Coppola Discharge Orders/Prescriptions Prescriptions: Continued montelukast 10 mg tablet 10 mg PO DAILY lisinopril 30 mg tablet 30 mg PO DAILY carvedilol 6.25 mg tablet 6.25 mg PO BID Rx Instructions: must administer with a meal/food ranolazine 500 mg tablet extended release 12 hr 500 mg PO BID medroxyprogesterone 150 MG/ML syringe 150 mg IM .[id number] Patient Comments: CONTROL albuterol sulfate 1 INHALER inhaler 1 puff INHALATION Q4H PRN (Reason: Sob &/Or Wheezing) Patient Comments: BREATHING albuterol sulfate 2.5 MG/3 ML solution for nebulization 2.5 mg INHALATION Q4H PRN Qty: 25 0RF Rx Instructions: Use q4 hours and PRN for wheezing fluoxetine 40 MG capsule 40 mg PO DAILY Patient Comments: PT TAKES 40MG AND 20MG TOGETHER TO EQUAL 60MG DOSE oxaprozin 600 MG tablet 600 mg PO BID fluoxetine 20 mg tablet 20 mg PO DAILY Patient Comments: PT TAKES 40MG AND 20MG TOGETHER TO EQUAL 60MG DOSE budesonide-formoterol [Symbicort] 160-4.5 mcg/actuation HFA aerosol inhaler 2 puff inhalation DAILY omeprazole 20 mg capsule,delayed release(DR/EC) 20 mg PO DAILY tizanidine 4 mg tablet 4 mg PO TID PRN (Reason: muscle spasticity) atorvastatin 20 mg tablet 20 mg PO DAILY Patient Comments: [NO ORIGINAL SIG] pregabalin 300 mg capsule 300 mg PO Q12H Patient Comments: [NO ORIGINAL SIG] ferrous gluconate 324 mg (38 mg iron) tablet 324 mg PO DAILY Qty: 30 0RF Discontinued baclofen 10 mg tablet 10 mg PO TID Referrals / Follow Up: Bill Dai MD [Primary Care Provider] - Disposition Disposition (needs filled in before D/C Order can be placed): [facility]
[2024-01-15] MEDS: Ferrous Gluconate 324 MG Tablet PO (12:46)
[2024-01-15 13:09] LABS: Pathologist Review Reviewed
[2024-01-15] MEDS: Carvedilol 6.25 MG Tablet PO (18:03)
[2024-01-15] MEDS: 0.9% Normal Saline (1000mL) 1,000 ML 75 ML IV (19:04)
[2024-01-15] MEDS: Atorvastatin Calcium 20 MG Tablet PO (21:08)
[2024-01-16] VITALS (14 sets, daily range): BP systolic 99–116; BP diastolic 66–79; PULSE 85–100; RESP 16–22; TEMP 36.8–37.1; O2SAT 88–99; BMI 35.8
[2024-01-16] MEDS: Ipratropium/Albuterol Sulfate 3 ML AMPUL.NEB INHALATION ×7 (00:01→23:14)
[2024-01-16 07:41] LABS: Absolute Lymphocyte Count 3.59 X10^3/uL (0.83-4.51); Absolute Neutrophil Count 13.8 X10^3/uL (2.0-7.7); Basophil# 0.06 X10^3/uL; Basophil% 0.3 % (0-1); Eosinophil# 0.13 X10^3/uL; Eosinophils% 0.7 % (0-5); Hematocrit 36.8 % (37-47); Hemoglobin 11.4 g/dL (12.0-15.0); Lymphocyte # 3.59 X10^3/ul (0.83-4.51); Lymphocyte % 18.2 % (19-41); Mean Corpuscular Hgb 28.2 pg (27.0-32.0); Mean Corpuscular Volume 91.1 fL (81-99); Mean Platelet Vol. 11.9 fl (6.2-12.0); Monocyte% 8.6 % (0-10); NRBC Flagged by Analyzer 0 % (0-5); Neutrophil # 13.83 X10^3/uL (2.7-7.7); Neutrophil % 70.2 % (47-70); POSITIVE DIFFERENTIAL YES; POSITIVE MORPHOLOGY YES; Platelet Count 387 K/mm3 (150-450); RBC Distribution Width CV 16.6 % (11.6-14.6); RBC Distribution Width SD 54.4 fl (35.1-43.9); Red Blood Count 4.04 M/mm3 (4.2-5.4); White Blood Count 19.7 K/mm3 (4.4-11.0)
[2024-01-16 07:44] LABS: Differential Indicated SCAN CRITERIA MET
[2024-01-16 08:39] LABS: Anion Gap 13 (5-15); BUN 84 mg/dL (7-18); Calcium,Total 9.1 mg/dL (8.5-10.1); Chloride 102 mmol/L (98-107); Creatinine, Serum 2.21 mg/dL (0.55-1.02); EST Glomerular Filtration Rate 26 mL/min (>60); Est Glom Filt Rate - Afr Amer 31 mL/min (>60); Estimated Creatinine Clearance 34.59 ml/min; Glucose 117 mg/dL (74-106); Potassium 3.3 mmol/L (3.5-5.1); Sodium Level 140 mmol/L (136-145)
[2024-01-16 08:48] LABS: Atypical Lymphocyte 1+ %
[2024-01-16] MEDS: 0.9% Normal Saline (1000mL) 1,000 ML 75 ML IV (09:51)
[2024-01-16] MEDS: Pantoprazole Sodium 40 MG in 0.9% Normal Saline (100mL MB+) 100 ML 330 MG IV (09:56)
[2024-01-16] MEDS: FLUoxetine 20 MG Capsule PO (09:58)
[2024-01-16] MEDS: Fluoxetine HCl 40 MG CAPSULE PO (09:58)
[2024-01-16] MEDS: predniSONE 20 MG Tablet 40 MG PO (09:58)
[2024-01-16] MEDS: Enoxaparin 40 MG/0.4 ML Syringe SC (09:58)
[2024-01-16] MEDS: Montelukast 10 MG Tablet PO (09:58)
[2024-01-16] MEDS: Carvedilol 6.25 MG Tablet PO (09:59)
[2024-01-16] MEDS: Potassium Chloride Oral Tablet 20 MEQ 40 MEQ PO (10:04)
[2024-01-16] MEDS: Pregabalin 75 MG Capsule PO ×2 (10:05→22:19)
[2024-01-16] MEDS: Ferrous Gluconate 324 MG Tablet PO (11:20)
[2024-01-16 12:13] LABS: Pathologist Review Reviewed
--- NOTE | 2024-01-16 13:03 | PN_ITS ---
Subjective Subjective Patient seen and examined. She had no active complaints. She denied any chest pain or palpitations, dizziness, nausea vomiting or any other symptoms. Review systems otherwise negative. She did complain of some mild left-sided chest pain overnight but pain did not recur again. Objective Data Objective Data Vital Signs: Vital Signs Temp Pulse Resp BP Pulse Ox O2 Del Method O2 Flow Rate 98.5 F 85 20 H 101/66 95 Nasal Cannula 2 01/16/24 09:45 01/16/24 11:29 01/16/24 11:29 01/16/24 09:45 01/16/24 09:45 01/16/24 10:00 01/16/24 10:00 FiO2 30 01/13/24 08:00 Oxygen Flow Rate (L/min) 2 Oxygen Delivery Method Nasal Cannula Weight: 202 lb 6.15 oz Body Mass Index (BMI) 35.8 Intake & Output: Intake and Output for Last 24 Hours 01/14/24 01/15/24 01/16/24 23:59 23:59 23:59 Intake Total 410 / 410 1188.75 / 1188.75 230 / 230 Output Total 1100 / 1100 325 / 325 500 / 500 Balance -690 / -690 863.75 / 863.75 -270 / -270 Lab / Micro Data 01/16/24 07:10 01/16/24 07:10 Labs: Laboratory Results - last 24 hr 01/15/24 07:33: Diff Path Review Reviewed 01/16/24 07:10: WBC 19.7 H, RBC 4.04 L, Hgb 11.4 L, Hct 36.8 L, MCV 91.1, MCH 28.2, MCHC 31.0 L, RDW Std Deviation 54.4 H, RDW Coeff of Beto 16.6 H, Plt Count 387, MPV 11.9, Immature Gran % (Auto) 2.000 H, Neut % (Auto) 70.2 H, Lymph % (Auto) 18.2 L, [place] % (Auto) 8.6, Eos % (Auto) 0.7, Baso % (Auto) 0.3, Absolute Neuts (auto) 13.8 H, Absolute Lymphs (auto) 3.59, Nucleated RBC % 0, Diff Path Review Reviewed, Atypical Lymphocytes 1+, Sodium 140, Potassium 3.3 L, Chloride 102, Carbon Dioxide 25.0, Anion Gap 13, BUN 84 H, Creatinine 2.21 H, Estim Creat Clear Calc 34.59, Est GFR (MDRD) Af Amer 31 L, Est GFR (MDRD) Non-Af 26 L, B UN/Creatinine Ratio 38.0 H, Glucose 117 H, Calcium 9.1 Micro: Microbiology 01/06/24 11:10 Blood Culture (Wb) - Right Hand Blood Culture - Final No growth in 5 days. 01/07/24 12:50 Sputum, Induced/Lukens Gram Stain - Final 01/07/24 12:50 Sputum, Induced/Lukens Respiratory Culture - Final Streptococcus group F 01/06/24 21:00 Urine, Random Legionella Antigen - Final 01/06/24 21:00 Urine, Random Streptococcus pneumoniae Antigen (M - Final 01/06/24 15:48 Mucosa - Nasopharyngeal Respiratory Panel (PCR) - Final 01/06/24 11:42 Mucosa - Nasopharyngeal SARS-CoV-2, Influenza & RSV (PCR) - Final Physical Exam Const alert, oriented x3, no apparent distress, healthy appearing and well nourished; Negative for average body habitus Constitutional Narrative: frail General Appearance: cooperative, well kempt and well developed Orientation / Consciousness: awake and lethargic HEENT normocephalic, head/scalp atraumatic, hearing grossly normal bilaterally, nasal mucous membranes and turbinates normal and moist oral mucous membranes Eyes PERRL, EOMs intact bilaterally and conjunctivae normal Eyes Narrative: No scleral icterus Neck no lymphadenopathy, supple, no JVD, thyroid normal and no carotid bruits Neck Narrative: General: trachea midline Lymph Lymphatic: no lymphadenopathy noted and no lymphedema noted Chest inspection of chest normal Resp Resp Narrative: Mildly diminished breath sounds bibasilarly. Bilateral crackles. Currently on 2 L of oxygen by nasal cannula. Auscultation: crackles, rales, rhonchi and wheezes Cardio regular rate, regular rhythm, S1 normal heart sound, S2 normal heart sound, no rub, no gallops, no clicks and peripheral pulses 2+ throughout Cardio Narrative: 2 out of 6 systolic murmur loudest at right upper sternal border GI normal to inspection, nondistended, normoactive bowel sounds, soft to palpation, non-tender and non-distended Back/Spine normal ROM Extremity normal to inspection, normal capillary refill, no clubbing, cyanosis or edema, no calf tenderness and no pedal edema Extremity Narrative: Pedal and radial pulses are 2+ General Extremity: no tenderness to palpation of joints or extremities Skin no rashes or lesions noted, no wounds, skin turgor normal, no jaundice, no petechiae and no mottling General Skin Exam: no breakdown Neuro oriented x3, CN's II-XII intact bilaterally, moves all extremities and no focal motor deficits Speech: speech normal Motor Exam: general weakness Psych Psych Narrative: lethargic, flat affect Assessment & Plan Assessment/Plan (1) Acute respiratory failure with hypoxia: (2) Pneumonia: PLAN: Plan #Acute hypoxic respiratory failure * due to pneumonia. * critical care on board * Was intubated on admission but extubated a couple of days ag. Now transferred to the PCU. On 2 L of oxygen. * 2D echo showed EF of 55% with RVSP of 48mmHg and prominent pericardial fat pad vs small pleural effusion and mild aortic stenosis. * Completed a course of vancomycin and cefepime. * Has some bilateral crackles. Will start on incentive spirometry. * Diurese as needed to help with blood overload. * #Acute encephalopathy * EEG done showed severe diffuse encephalopathy. * critical care on board. * had MRI of the brain which showed no acute intracranial pathology. * On 2 L of oxygen. Her mentation has improved. * #ISA: Cr is up to 2.21 from 2.08 yesterday. Will hydrate gently with IVF NS @ 75cc/hr. Check urine electrolytes and renal USG. IF Cr continues to trend upwards #Hypokalemia: K is 3.3. Will replace and trend. #COPD: on breathing treatment with bronchodilators. Now on PO solumedrol #Benign essential hypertension: on Iv hydralazine. also on lasix. #Acute on chronic HFpEF: Was on IV Lasix but this has been discontinued because her creatinine trended up sharply to 2 yesterday DVT prophylaxis: lovenox, renally dosed Charges/Coding Visit Charges Inpatient E&M: 12277 Subs Hosp L2
[2024-01-16] MEDS: Baclofen 10 MG Tablet PO (17:32)
[2024-01-16] MEDS: Carvedilol 3.125 MG TABLET PO (22:20)
[2024-01-16] MEDS: Atorvastatin Calcium 20 MG Tablet PO (22:21)
[2024-01-17] VITALS (10 sets, daily range): BP systolic 103–140; BP diastolic 63–87; PULSE 72–92; RESP 16–23; TEMP 36.9–37.9; O2SAT 90–98; BMI 35.9
[2024-01-17] MEDS: Baclofen 10 MG Tablet PO (00:23)
[2024-01-17] MEDS: Ipratropium/Albuterol Sulfate 3 ML AMPUL.NEB INHALATION ×4 (03:46→15:24)
[2024-01-17 05:20] LABS: Absolute Lymphocyte Count 2.53 X10^3/uL (0.83-4.51); Absolute Neutrophil Count 9.9 X10^3/uL (2.0-7.7); Basophil# 0.03 X10^3/uL; Basophil% 0.2 % (0-1); Eosinophil# 0.08 X10^3/uL; Eosinophils% 0.6 % (0-5); Hematocrit 30.6 % (37-47); Hemoglobin 9.7 g/dL (12.0-15.0); Lymphocyte # 2.53 X10^3/ul (0.83-4.51); Lymphocyte % 18.1 % (19-41); Mean Corp Hgb Conc 31.7 g/dL (32-36); Mean Corpuscular Hgb 28.6 pg (27.0-32.0); Mean Corpuscular Volume 90.3 fL (81-99); Mean Platelet Vol. 11.3 fl (6.2-12.0); Monocyte# 1.23 X10^3/uL; Monocyte% 8.8 % (0-10); NRBC Flagged by Analyzer 0 % (0-5); Neutrophil # 9.91 X10^3/uL (2.7-7.7); Neutrophil % 71.2 % (47-70); Platelet Count 325 K/mm3 (150-450); RBC Distribution Width CV 16.6 % (11.6-14.6); RBC Distribution Width SD 53.6 fl (35.1-43.9); Red Blood Count 3.39 M/mm3 (4.2-5.4); White Blood Count 13.9 K/mm3 (4.4-11.0)
[2024-01-17 05:39] LABS: Anion Gap 5 (5-15); BUN 69 mg/dL (7-18); BUN/Creat Ratio 63.9 RATIO (10-20); Calcium,Total 9.1 mg/dL (8.5-10.1); Chloride 111 mmol/L (98-107); Creatinine, Serum 1.08 mg/dL (0.55-1.02); EST Glomerular Filtration Rate 58 mL/min (>60); Est Glom Filt Rate - Afr Amer 70 mL/min (>60); Estimated Creatinine Clearance 70.86 ml/min; Glucose 113 mg/dL (74-106); Potassium 3.9 mmol/L (3.5-5.1); Sodium Level 140 mmol/L (136-145)
[2024-01-17] MEDS: Enoxaparin 30 MG/0.3 ML Syringe SC (09:16)
[2024-01-17] MEDS: Ferrous Gluconate 324 MG Tablet PO (09:17)
[2024-01-17] MEDS: Montelukast 10 MG Tablet PO (09:17)
[2024-01-17] MEDS: Pregabalin 75 MG Capsule PO ×2 (09:17→23:00)
[2024-01-17] MEDS: FLUoxetine 20 MG Capsule PO (09:17)
[2024-01-17] MEDS: Pantoprazole Sodium 40 MG Tablet PO (09:17)
[2024-01-17] MEDS: predniSONE 20 MG Tablet 40 MG PO (09:18)
[2024-01-17] MEDS: Carvedilol 3.125 MG TABLET PO ×2 (09:19→23:00)
[2024-01-17] MEDS: Fluoxetine HCl 40 MG CAPSULE PO (09:20)
--- NOTE | 2024-01-17 11:52 | PN_ITS ---
Subjective Subjective Patient seen and examined. She had no active complaints today. She wanted her Nelson catheter removed. Review of systems is otherwise negative. She has remained hemodynamically stable. She is only on 2L of oxygen. Objective Data Objective Data Vital Signs: Vital Signs Temp Pulse Resp BP Pulse Ox O2 Del Method O2 Flow Rate 98.7 F 72 17 111/73 92 Nasal Cannula 2 01/17/24 09:05 01/17/24 11:41 01/17/24 11:41 01/17/24 09:05 01/17/24 11:41 01/17/24 11:41 01/17/24 11:41 FiO2 30 01/13/24 08:00 Oxygen Flow Rate (L/min) 2 Oxygen Delivery Method Nasal Cannula Weight: 202 lb 13.204 oz Body Mass Index (BMI) 35.9 Intake & Output: Intake and Output for Last 24 Hours 01/15/24 01/16/24 01/17/24 23:59 23:59 23:59 Intake Total 1188.75 / 1188.75 1850 / 1850 Output Total 325 / 325 1600 / 1600 350 / 350 Balance 863.75 / 863.75 250 / 250 -350 / -350 Lab / Micro Data 01/17/24 04:55 01/17/24 04:55 Labs: Laboratory Results - last 24 hr 01/16/24 07:10: Diff Path Review Reviewed 01/17/24 04:55: WBC 13.9 H, RBC 3.39 L, Hgb 9.7 L, Hct 30.6 L, MCV 90.3, MCH 28.6, MCHC 31.7 L, RDW Std Deviation 53.6 H, RDW Coeff of Beto 16.6 H, Plt Count 325, MPV 11.3, Immature Gran % (Auto) 1.100 H, Neut % (Auto) 71.2 H, Lymph % (Auto) 18.1 L, [place] % (Auto) 8.8, Eos % (Auto) 0.6, Baso % (Auto) 0.2, Absolute Neuts (auto) 9.9 H, Absolute Lymphs (auto) 2.53, Nucleated RBC % 0, Sodium 140, Potassium 3.9, Chloride 111 H, Carbon Dioxide 24.0, Anion Gap 5, BUN 69 H, C reatinine 1.08 H, Estim Creat Clear Calc 70.86, Est GFR (MDRD) Af Amer 70, Est GFR (MDRD) Non-Af 58 L, BUN/Creatinine Ratio 63.9 H, Glucose 113 H, Calcium 9.1 Micro: Microbiology 01/06/24 11:10 Blood Culture (Wb) - Right Hand Blood Culture - Final No growth in 5 days. 01/07/24 12:50 Sputum, Induced/Lukens Gram Stain - Final 01/07/24 12:50 Sputum, Induced/Lukens Respiratory Culture - Final Streptococcus group F 01/06/24 21:00 Urine, Random Legionella Antigen - Final 01/06/24 21:00 Urine, Random Streptococcus pneumoniae Antigen (M - Final 01/06/24 15:48 Mucosa - Nasopharyngeal Respiratory Panel (PCR) - Final 01/06/24 11:42 Mucosa - Nasopharyngeal SARS-CoV-2, Influenza & RSV (PCR) - Final Physical Exam Const alert, oriented x3, no apparent distress and average body habitus Constitutional Narrative: frail General Appearance: cooperative Orientation / Consciousness: awake HEENT normocephalic, head/scalp atraumatic, hearing grossly normal bilaterally, nasal mucous membranes and turbinates normal and moist oral mucous membranes Eyes PERRL, EOMs intact bilaterally and conjunctivae normal Neck no lymphadenopathy, supple, no JVD, thyroid normal and no carotid bruits Neck Narrative: General: trachea midline Lymph Lymphatic: no lymphadenopathy noted and no lymphedema noted Chest inspection of chest normal Resp normal respiratory effort and clear to auscultation bilaterally Resp Narrative: Mildly diminished breath sounds bibasilarly. Bilateral crackles. Currently on 2 L of oxygen by nasal cannula. Auscultation: crackles, rales, rhonchi and wheezes Cardio regular rate, regular rhythm, S1 normal heart sound, S2 normal heart sound and peripheral pulses 2+ throughout Cardio Narrative: 2 out of 6 systolic murmur loudest at right upper sternal border GI normal to inspection, nondistended, normoactive bowel sounds, soft to palpation, non-tender and non-distended Back/Spine normal ROM Extremity normal to inspection, normal capillary refill, no clubbing, cyanosis or edema, no calf tenderness and no pedal edema Extremity Narrative: Pedal and radial pulses are 2+ General Extremity: no tenderness to palpation of joints or extremities Skin no rashes or lesions noted, no wounds, skin turgor normal, no jaundice, no petechiae and no mottling General Skin Exam: no breakdown Neuro oriented x3, CN's II-XII intact bilaterally, moves all extremities and no focal motor deficits Speech: speech normal Motor Exam: general weakness Psych thought process normal Psych Narrative: flat affect Mood & Affect: anxious and flat affect Assessment & Plan Assessment/Plan (1) Acute respiratory failure with hypoxia: (2) Pneumonia: PLAN: Plan #Acute hypoxic respiratory failure * due to pneumonia. * critical care on board * Was intubated on admission but extubated a couple of days ag. Now transferred to the PCU. On 2 L of oxygen. * 2D echo showed EF of 55% with RVSP of 48mmHg and prominent pericardial fat pad vs small pleural effusion and mild aortic stenosis. * Completed a course of vancomycin and cefepime. * Has some bilateral crackles. On incentive spirometry. * Diurese as needed to help with blood overload. * #Acute encephalopathy * EEG done showed severe diffuse encephalopathy. * critical care on board. * had MRI of the brain which showed no acute intracranial pathology. * On 2 L of oxygen. Her mentation has improved. * #ISA: Resolved. Creatinine is down to 1.08. Will monitor #Hypokalemia: K is 3.3. Will replace and trend. #COPD: on breathing treatment with bronchodilators. Now on PO prednisone 40mg daily x 5 days. #Benign essential hypertension: on Iv hydralazine. also on lasix. #Acute on chronic HFpEF: stable. On 2L of oxygen. DVT prophylaxis: lovenox, renally dosed Disposition: awaiting placement. Charges/Coding Visit Charges Inpatient E&M: 69983 Subs Hosp L2
--- NOTE | 2024-01-17 12:15 | CASEMGMT ---
Social Work Pt completed LW/POA w/SW earlier in hospital stay, pt named Karel Loya as Healthcare POA. Copies placed on chart. JEANNA Tomas
[2024-01-17] MEDS: Atorvastatin Calcium 20 MG Tablet PO (23:00)
[2024-01-18] VITALS (15 sets, daily range): BP systolic 113–137; BP diastolic 62–98; PULSE 66–84; RESP 16–18; TEMP 36.3–37.1; O2SAT 92–99; BMI 35.9
[2024-01-18] MEDS: Baclofen 10 MG Tablet PO ×2 (01:18→22:04)
--- NOTE | 2024-01-18 04:58 | PCM.HOSP.N ---
Hospitalist Note Patient has had several brief episodes of wide-complex tachycardia. Did have a recent echocardiogram on 01/17/2024 at which time she was found to have an EF of 55%, mild to moderate tricuspid valve insufficiency, mild aortic stenosis and turbulence in the descending thoracic aorta with right ventricular systolic pressure 48 mmHg. Will check stat BMP and magnesium level and be sure that magnesium is greater than 2 and potassium is greater than 4. If electrolytes are above this level will consult cardiology if they are not will replace and continue to monitor and if persistent may need cardiology involvement.
--- NOTE | 2024-01-18 05:00 | EKG12_ITS ---
Test Reason : RHYTHM CHANGE Blood Pressure : / mmHG Vent. Rate : 081 BPM Atrial Rate : 081 BPM P-R Int : 136 ms QRS Dur : 084 ms QT Int : 378 ms P-R-T Axes : 057 020 092 degrees QTc Int : 439 ms Normal sinus rhythm Nonspecific T wave abnormality Abnormal ECG When compared with ECG of 15-JAN-2024 17:00, MANUAL COMPARISON REQUIRED, DATA IS UNCONFIRMED Confirmed by Arcadio Morales ([id number]), farm products shipper JUN BLOOD ([id number]) on 01/19/2024 1:42:16 PM Referred By: Confirmed By:Arcadio Morales
[2024-01-18 05:15] LABS: Absolute Lymphocyte Count 3.05 X10^3/uL (0.83-4.51); Absolute Neutrophil Count 9.9 X10^3/uL (2.0-7.7); Basophil# 0.04 X10^3/uL; Basophil% 0.3 % (0-1); Eosinophil# 0.07 X10^3/uL; Eosinophils% 0.5 % (0-5); Hematocrit 29.7 % (37-47); Hemoglobin 9.4 g/dL (12.0-15.0); Lymphocyte # 3.05 X10^3/ul (0.83-4.51); Lymphocyte % 21.1 % (19-41); Mean Corp Hgb Conc 31.6 g/dL (32-36); Mean Corpuscular Hgb 28.5 pg (27.0-32.0); Mean Platelet Vol. 11.2 fl (6.2-12.0); Monocyte# 1.31 X10^3/uL; Monocyte% 9.1 % (0-10); NRBC Flagged by Analyzer 0 % (0-5); Neutrophil # 9.86 X10^3/uL (2.7-7.7); Neutrophil % 68.2 % (47-70); Platelet Count 328 K/mm3 (150-450); RBC Distribution Width CV 16.2 % (11.6-14.6); White Blood Count 14.4 K/mm3 (4.4-11.0)
[2024-01-18 05:30] LABS: Anion Gap 6 (5-15); BUN 48 mg/dL (7-18); BUN/Creat Ratio 50.3 RATIO (10-20); Calcium,Total 9.4 mg/dL (8.5-10.1); Chloride 110 mmol/L (98-107); Creatinine, Serum 0.96 mg/dL (0.55-1.02); EST Glomerular Filtration Rate 67 mL/min (>60); Est Glom Filt Rate - Afr Amer 81 mL/min (>60); Estimated Creatinine Clearance 79.72 ml/min; Glucose 136 mg/dL (74-106); Sodium Level 140 mmol/L (136-145)
[2024-01-18] MEDS: 0.9% Saline Lock 10 ML Syringe IV ×3 (05:52→18:36)
[2024-01-18] MEDS: Metoprolol Tartrate 5 MG/5 ML Vial IV (05:54)
--- NOTE | 2024-01-18 05:54 | PCM.HOSP.N ---
Hospitalist Note Rapid response called for wide-complex tachycardia. Patient was mentating fine the whole time and perfusing but did complain of some palpitations in her chest. As noted previously she had a recent echo which shows a normal EF. Potassium and magnesium have just resulted and are both normal at 4 and 2 respectively. Upon review of telemetry she does have wide-complex tachycardia however I am wondering if it is more of an A-fib with aberrancy. The patient believes at 1 point in time she was told she had some atrial fibrillation but she is unable to remember for sure. I did get an EKG which showed a QTc of 439. Metoprolol 5 mg IV push x 1 dose given and will start metoprolol 25 mg p.o. twice daily. Cardiology consult ordered and text sent. Patient had a recent TSH that showed only euthyroid sick syndrome.
[2024-01-18] MEDS: Ipratropium/Albuterol Sulfate 3 ML AMPUL.NEB INHALATION ×3 (07:16→16:33)
[2024-01-18 07:27] LABS: Troponin-I HS 29 pg/mL (3.0-54.0)
[2024-01-18] MEDS: Ondansetron 4 MG/2 ML Vial IV ×2 (07:31→18:36)
[2024-01-18] MEDS: oxyCODONE 5 MG Tablet PO ×2 (07:31→22:06)
[2024-01-18 09:18] LABS: Troponin-I HS 28 pg/mL (3.0-54.0)
[2024-01-18] MEDS: Pantoprazole Sodium 40 MG Tablet PO (09:42)
[2024-01-18] MEDS: FLUoxetine 20 MG Capsule PO (09:42)
[2024-01-18] MEDS: Montelukast 10 MG Tablet PO (09:43)
[2024-01-18] MEDS: Fluoxetine HCl 40 MG CAPSULE PO (09:43)
[2024-01-18] MEDS: predniSONE 20 MG Tablet 40 MG PO (09:43)
[2024-01-18] MEDS: Metoprolol Tartrate 25 MG Tablet PO ×2 (09:45→22:05)
[2024-01-18] MEDS: Enoxaparin 40 MG/0.4 ML Syringe SC (09:45)
[2024-01-18] MEDS: Pregabalin 75 MG Capsule PO ×2 (09:56→22:06)
--- NOTE | 2024-01-18 10:50 | PN_ITS ---
Subjective Subjective Patient seen and examined. She had some chest pain overnight. She was noted to have wide complex vtach and a rapid response was called. She was started on PO metoprolol and cardiology consulted. She has no active complaints this morning. Review of systems is otherwise negative. Objective Data Objective Data Vital Signs: Vital Signs Temp Pulse Resp BP Pulse Ox O2 Del Method O2 Flow Rate 97.9 F 81 18 113/62 96 Room Air 1 01/18/24 09:35 01/18/24 10:38 01/18/24 10:38 01/18/24 09:45 01/18/24 10:38 01/18/24 10:38 01/18/24 09:35 FiO2 30 01/13/24 08:00 Oxygen Flow Rate (L/min) 1 Oxygen Delivery Method Room Air Weight: 202 lb 9.677 oz Body Mass Index (BMI) 35.9 Intake & Output: Intake and Output for Last 24 Hours 01/16/24 01/17/24 01/18/24 23:59 23:59 23:59 Intake Total 1850 / 1850 480 / 480 Output Total 1600 / 1600 500 / 500 Balance 250 / 250 -20 / -20 Lab / Micro Data 01/18/24 05:06 01/18/24 05:06 Labs: Laboratory Results - last 24 hr 01/18/24 05:06: WBC 14.4 H, RBC 3.30 L, Hgb 9.4 L, Hct 29.7 L, MCV 90.0, MCH 28.5, MCHC 31.6 L, RDW Std Deviation 53.0 H, RDW Coeff of Beto 16.2 H, Plt Count 328, MPV 11.2, Immature Gran % (Auto) 0.800, Neut % (Auto) 68.2, Lymph % (Auto) 21.1, [place] % (Auto) 9.1, Eos % (Auto) 0.5, Baso % (Auto) 0.3, Absolute Neuts (auto) 9.9 H, Absolute Lymphs (auto) 3.05, Nucleated RBC % 0, Sodium 140, Potassium 4.0, Chloride 110 H, Carbon Dioxide 24.0, Anion Gap 6, BUN 48 H, Creatinine 0.96, Estim Creat Clear Calc 79.72, Est GFR (MDRD) Af Amer 81, Est GFR (MDRD) Non-Af 67, BUN/Creatinine Ratio 50.3 H, Glucose 136 H, Calcium 9.4, Magnesium 2.0 01/18/24 06:57: Troponin I High Sens 29 01/18/24 08:39: Troponin I High Sens 28 Micro: Microbiology 01/06/24 11:10 Blood Culture (Wb) - Right Hand Blood Culture - Final No growth in 5 days. 01/07/24 12:50 Sputum, Induced/Lukens Gram Stain - Final 01/07/24 12:50 Sputum, Induced/Lukens Respiratory Culture - Final Streptococcus group F 01/06/24 21:00 Urine, Random Legionella Antigen - Final 01/06/24 21:00 Urine, Random Streptococcus pneumoniae Antigen (M - Final 01/06/24 15:48 Mucosa - Nasopharyngeal Respiratory Panel (PCR) - Final 01/06/24 11:42 Mucosa - Nasopharyngeal SARS-CoV-2, Influenza & RSV (PCR) - Final Physical Exam Const alert, oriented x3, no apparent distress, average body habitus, healthy appearing and well nourished Constitutional Narrative: frail General Appearance: cooperative, well kempt and well developed Orientation / Consciousness: awake HEENT normocephalic, head/scalp atraumatic, hearing grossly normal bilaterally, nasal mucous membranes and turbinates normal and moist oral mucous membranes Eyes PERRL, EOMs intact bilaterally and conjunctivae normal Eyes Narrative: No scleral icterus Neck no lymphadenopathy, supple, no JVD, thyroid normal and no carotid bruits Neck Narrative: General: trachea midline Lymph Lymphatic: no lymphadenopathy noted and no lymphedema noted Chest inspection of chest normal Resp normal respiratory effort, no retractions, no use of accessory muscles and clear to auscultation bilaterally Resp Narrative: Mildly diminished breath sounds bibasilarly. No wheezes or crackles. Currently on 2 L of oxygen by nasal cannula. Cardio regular rate, regular rhythm, S1 normal heart sound, S2 normal heart sound, no rub, no gallops, no clicks and peripheral pulses 2+ throughout Cardio Narrative: 2 out of 6 systolic murmur loudest at right upper sternal border GI normal to inspection, nondistended, normoactive bowel sounds, soft to palpation, non-tender and non-distended Back/Spine normal ROM Extremity normal to inspection, normal capillary refill, no clubbing, cyanosis or edema, no calf tenderness and no pedal edema General Extremity: no tenderness to palpation of joints or extremities Skin no rashes or lesions noted, no wounds, skin turgor normal, no jaundice, no petechiae and no mottling General Skin Exam: no breakdown Neuro oriented x3, CN's II-XII intact bilaterally, moves all extremities and no focal motor deficits Speech: speech normal Motor Exam: general weakness Psych thought process normal Mood & Affect: flat affect Assessment & Plan Assessment/Plan (1) Acute respiratory failure with hypoxia: (2) Pneumonia: PLAN: Plan #Acute hypoxic respiratory failure * due to pneumonia. * critical care on board * Was intubated on admission but extubated a couple of days ag. Now transferred to the PCU. On 2 L of oxygen. * 2D echo showed EF of 55% with RVSP of 48mmHg and prominent pericardial fat pad vs small pleural effusion and mild aortic stenosis. * Completed a course of vancomycin and cefepime. * Has some bilateral crackles. On incentive spirometry. * Diurese as needed to help with fluid overload. * #Acute encephalopathy * EEG done showed severe diffuse encephalopathy. * critical care on board. * had MRI of the brain which showed no acute intracranial pathology. * On 2 L of oxygen. Her mentation has improved. * #Ventricular tachycardia * Patient developed chest pain overnight and was found to have wide complex tachycardia. She was started on PO metoprolol * 2D echo done during this admission as above * cardiology consulted, await recs. * IV metoprolol prn. * #ISA: Resolved. #Hypokalemia:resolved. K is 4 today #COPD: on breathing treatment with bronchodilators. Now on PO prednisone 40mg daily x 5 days. #Benign essential hypertension: on Iv hydralazine. also on lasix. #Acute on chronic HFpEF: stable. On 2L of oxygen. DVT prophylaxis: lovenox, renally dosed Disposition: awaiting placement. Charges/Coding Visit Charges Inpatient E&M: 06045 Subs Hosp L2
[2024-01-18] MEDS: Ferrous Gluconate 324 MG Tablet PO (11:32)
--- NOTE | 2024-01-18 12:54 | PCM.CONS.C ---
Assessment & Plan Assessment/Plan (1) NSVT (nonsustained ventricular tachycardia): PLAN: Patient with prolonged hospitalization. Check D-dimer. Repeat limited echocardiogram. ECG changes and chest pain. Troponin negative. If D-dimers are negative, then will recommend a Lexiscan stress Myoview to rule out ischemia. Continue beta-blockers. (2) Chest pain: PLAN: See #1 above. (3) Abnormal EKG: PLAN: See #1 above. (4) History of bicuspid aortic valve: PLAN: History of repair or replacement in 2000. (5) History of atrial septal defect repair: HPI Consult Data Date of Consult: 01/18/24 HPI Narrative Reason for Consultation: NSVT HPI Narrative: 43-year-old female with past medical history significant for bicuspid aortic valve status post aortic valve replacement and aortic root repair. She also has a history of ASD repair. She was admitted to the hospital about 2 weeks ago with respiratory failure necessitating mechanical ventilation. Her respiratory failure was thought to be secondary to pneumonia. She has since been successfully extubated and getting better. Last night patient felt some palpitations. According to her, she also had some chest pain associated with that. On the telemetry, she was noted to have few runs of nonsustained ventricular tachycardia. Denies any previous history of coronary artery disease. An echocardiogram done earlier this month showed normal LV systolic function. [facility] Medical History CKD stage 3b, GFR 30-44 ml/min Anxiety Depression Kidney stones Kidney disease GERD (gastroesophageal reflux disease) Asthma Congestive heart failure (CHF) CHF (congestive heart failure) TIA (transient ischemic attack) (~2001) History of stroke (~2001) Non-rheumatic tricuspid valve insufficiency DDD (degenerative disc disease) History of bicuspid aortic valve Essential hypertension History of DVT of lower extremity History of pulmonary embolus (PE) Colitis Cough Chest pain Thrush Normochromic normocytic anemia Borderline personality disorder Pulmonary hypertension Seizure disorder ARDS (adult respiratory distress syndrome) Acute respiratory failure with hypoxia Hematemesis Leiomyosarcoma Syringomyelia Migraine Exercise-induced asthma Arthritis Anxiety disorder Fibromyalgia AI (aortic insufficiency) Home Medications ?Medication ?Instructions ?Recorded ?Last Taken ?Type medroxyprogesterone 150 mg/mL 150 mg IM .[id number] control 03/15/16 3 Weeks Ago History intramuscular syringe ~06/19/20 albuterol sulfate 90 mcg/actuation 1 puff inhalation Q4H PRN Sob &/Or 10/02/16 01/06/24 History aerosol inhaler Wheezing albuterol sulfate 2.5 mg/3 mL 2.5 mg (3 mL) inhalation Q4H PRN 04/15/19 01/06/24 Rx (0.083 %) solution for nebulization breathing #25 vials fluoxetine 40 mg capsule 40 mg PO DAILY DEPRESSION 07/10/20 01/06/24 History oxaprozin 600 mg tablet 600 mg PO BID PRN pain 07/10/20 01/06/24 History lisinopril 30 mg tablet 30 mg PO DAILY blood pressure 11/06/23 01/06/24 History montelukast 10 mg tablet 10 mg PO DAILY allergies 11/06/23 01/06/24 History ranolazine 500 mg tablet,extended 500 mg PO BID chest pain 11/06/23 01/06/24 History release,12 hr atorvastatin 20 mg tablet 20 mg PO DAILY cholesterol 12/29/23 01/06/24 History pregabalin 300 mg capsule 300 mg PO Q12H nerve pain 12/29/23 01/06/24 History ferrous gluconate 324 mg (38 mg 324 mg PO DAILY #30 tabs 01/01/24 01/06/24 Rx iron) tablet budesonide-formoterol HFA 160 2 puff inhalation DAILY 01/06/24 01/06/24 History mcg-4.5 mcg/actuation aerosol inhaler (Symbicort) fluoxetine 20 mg tablet 20 mg PO DAILY 01/06/24 01/06/24 History omeprazole 20 mg capsule,delayed 20 mg PO DAILY 01/06/24 01/06/24 History release tizanidine 4 mg tablet 4 mg PO TID PRN muscle spasticity 01/14/24 Unknown History baclofen 10 mg tablet 10 mg PO TID PRN muscle spasm 01/16/24 Unknown History carvedilol 3.125 mg tablet 3.125 mg PO BID heart rate/bp 01/16/24 Unknown History Allergy/AdvReac Type Severity Reaction Status Date / Time amitriptyline Allergy Other Verified 12/29/23 20:55 amoxicillin (Amoxicillin) Allergy Rash Verified 12/29/23 20:55 erythromycin base Allergy Rash Verified 12/29/23 20:55 (Erythromycin Base) hydroxyzine Allergy Rash Verified 12/10/23 10:24 levofloxacin (From Levaquin) Allergy Swelling Verified 12/29/23 20:55 milnacipran Allergy Other Verified 12/29/23 20:55 milnacipran HCl (From Allergy Other Verified 12/29/23 20:55 Savella) celecoxib (From Celebrex) AdvReac Other Verified 12/29/23 20:55 diphenhydramine HCl (From AdvReac muscle Verified 12/29/23 20:55 Benadryl) spasms duloxetine HCl (From AdvReac Other Verified 12/29/23 20:55 Cymbalta) meloxicam AdvReac Swelling Verified 12/29/23 20:55 of legs/chest pain Family History Mother Cancer, Onset Age: 36 Breast CVA (cerebral vascular accident) CAD (coronary artery disease), Onset Age: 46 Myocardial infarction x2 Grandmother CAD (coronary artery disease) COPD (chronic obstructive pulmonary disease) Diabetes Surgical History History of right hip replacement History of adenoidectomy History of bilateral knee replacement History of left heart catheterization (LHC) (~01/31/17) History of atrial septal defect repair (~12/04/00) H/O aortic valve repair (~12/04/00) Social History Smoking Status: Current every day smoker tobacco type: cigarettes alcohol intake: current details: occasional substance use type: does not use Physical Exam Narrative Comfortable. No distress. Heart sounds 1 and 2 are normal. Chest clear to auscultation bilaterally. Alert oriented x 3. No ankle edema. Risk Stratification Risk Stratification Applicable: No Objective Data Vital Signs: Vital Signs Temp Pulse Resp BP Pulse Ox O2 Del Method O2 Flow Rate 97.9 F 81 18 113/62 96 Room Air 1 01/18/24 09:35 01/18/24 10:38 01/18/24 10:38 01/18/24 09:45 01/18/24 10:38 01/18/24 10:38 01/18/24 09:35 FiO2 30 01/13/24 08:00 Oxygen Flow Rate (L/min) 1 Oxygen Delivery Method Room Air Weight: 202 lb 9.677 oz Body Mass Index (BMI) 35.9 Intake & Output: Intake and Output for Last 24 Hours 01/16/24 01/17/24 01/18/24 23:59 23:59 23:59 Intake Total 1850 / 1850 480 / 480 120 / 120 Output Total 1600 / 1600 500 / 500 Balance 250 / 250 -20 / -20 120 / 120 Lab / Micro Data 01/18/24 05:06 01/18/24 05:06 Labs: Laboratory Results - last 24 hr 01/18/24 05:06: WBC 14.4 H, RBC 3.30 L, Hgb 9.4 L, Hct 29.7 L, MCV 90.0, MCH 28.5, MCHC 31.6 L, RDW Std Deviation 53.0 H, RDW Coeff of Beto 16.2 H, Plt Count 328, MPV 11.2, Immature Gran % (Auto) 0.800, Neut % (Auto) 68.2, Lymph % (Auto) 21.1, [place] % (Auto) 9.1, Eos % (Auto) 0.5, Baso % (Auto) 0.3, Absolute Neuts (auto) 9.9 H, Absolute Lymphs (auto) 3.05, Nucleated RBC % 0, Sodium 140, Potassium 4.0, Chloride 110 H, Carbon Dioxide 24.0, Anion Gap 6, BUN 48 H, Creatinine 0.96, Estim Creat Clear Calc 79.72, Est GFR (MDRD) Af Amer 81, Est GFR (MDRD) Non-Af 67, BUN/Creatinine Ratio 50.3 H, Glucose 136 H, Calcium 9.4, Magnesium 2.0 01/18/24 06:57: Troponin I High Sens 29 01/18/24 08:39: Troponin I High Sens 28 Rhythm Strip Rhythm Strip: Sinus Rhythm Cardiology Labs/Tests 01/18/24 05:06: WBC 14.4 H, RBC 3.30 L, Hgb 9.4 L, Hct 29.7 L, MCV 90.0, MCH 28.5, MCHC 31.6 L, Plt Count 328, MPV 11.2, Immature Gran % (Auto) 0.800, Neut % (Auto) 68.2, Lymph % (Auto) 21.1, [place] % (Auto) 9.1, Eos % (Auto) 0.5, Baso % (Auto) 0.3, Absolute Neuts (auto) 9.9 H, Nucleated RBC % 0, Sodium 140, Potassium 4.0, Chloride 110 H, Carbon Dioxide 24.0, Anion Gap 6, BUN 48 H, Creatinine 0.96, Est GFR (MDRD) Af Amer 81, Est GFR (MDRD) Non-Af 67, BUN/Creatinine Ratio 50.3 H, Glucose 136 H, Calcium 9.4, Magnesium 2.0 Rhythm: EKG: ECG done today shows sinus rhythm with T wave changes suggestive of anterior ischemia. ECHO: Stress Test: Cardiac Cath: PCI: CT Surgery: Holter monitor: EPS: PPM: CXR: Chest CT Scan:
[2024-01-18 13:25] LABS: Troponin-I HS 19 pg/mL (3.0-54.0)
--- NOTE | 2024-01-18 13:51 | ECHOLC_ITS ---
Reason For Study: Arrhythmia Procedure This was a limited 2D transthoracic echocardiogram. Contrast injection was performed. Exam performed portable in patient room. Left Ventricle Normal size and thickness. The left ventricular ejection fraction is 65 %. Unable to assess diastolic function based on available data. Right Ventricle Normal right ventricle. Atria The left and right atria are normal. Catheter/central line tip identified in right atrium. Mitral Valve Normal mitral valve. Tricuspid Valve Mild to moderate (1-2+) tricuspid valve insufficiency. Right ventricular systolic pressure estimated to be 36 mmHg. Aortic Valve Trisinus/trileaflet aortic valve. Mild thickening of the noncoronary cusp noted. Pulmonic Valve The pulmonic valve is not well visualized. Great Vessels Normal sized aortic root. Pericardium/Pleural Echo-free space once again identified posteriorly. Small pericardial effusion versus fat pad. No change from previous study on 01/09/2024. Medication Diluted definity 1.5ml given slow IV push to enhance endocardial definition. MMode/2D Measurements & Calculations LVIDd: 4.1 cm IVSd: 1.3 cm LA dimension: 3.8 cm LVIDs: 3.2 cm LVPWd: 1.0 cm FS: 22.9 % LVAd ap4: 32.9 cm2 SV(MOD-sp4): 67.5 ml SV(sp4-el): 71.6 ml LVLd ap4: 7.7 cm EDV(MOD-sp4): 113.7 ml EDV(sp4-el): 119.7 ml LVAs ap4: 19.5 cm2 LVLs ap4: 6.8 cm ESV(MOD-sp4): 46.2 ml ESV(sp4-el): 48.1 ml EF(MOD-sp4): 59.3 % EF(sp4-el): 59.8 % Doppler Measurements & Calculations TR max shellie: 280.3 cm/sec TR max P.4 mmHg ECHO/Echo Limited w/Contrast Interpretation Summary The left ventricular ejection fraction is 65 %. Right ventricular systolic pressure estimated to be 36 mmHg. Echo-free space once again identified posteriorly. Small pericardial effusion v ersus fat pad. No change from previous study on 01/09/2024. This was a limited 2D transthoracic echocardiogram. Ordering Physician: Hardeep Pettit Performed By: Mg Mauricio RCS
--- NOTE | 2024-01-18 14:20 | CT_ITS ---
ACR Level 3 findings have been noted. An addendum which confirms receipt of the report will follow. HISTORY: Rule out PE. TECHNIQUE: CT angiogram of the chest was performed after the intravenous administration of 100 mL Isovue-370. Post-processing of the angiographic images was performed with multiplanar reformation and 3D reconstruction. Individualized dose optimization techniques were used for this CT. 1065 images. COMPARISON: XR 01/11/2024, CT 01/09/2024. FINDINGS: CENTRAL AIRWAYS: Endotracheal tube removed. LUNGS: Bilateral patchy groundglass opacities with air trapping, overall decreased from prior CT. Chronic elevation of the right hemidiaphragm. PLEURA: No pneumothorax or significant pleural effusion. HEART/PERICARDIUM: Heart within normal limits in size. No right heart strain. Midline sternotomy No pericardial effusion. PULMONARY ARTERIES: Small left lower lobe subsegmental filling defects. AORTA/VESSELS: No thoracic aortic aneurysm or dissection flap. Mild atherosclerosis. Right PICC tip in the superior vena cava MEDIASTINUM/JL: No pathologically enlarged lymph nodes. OSSEOUS STRUCTURES: Intact. UPPER ABDOMEN: Nasogastric tube removed. Residual contrast in the colon. CT/CTA Chest W/WO Contrast IMPRESSION: Subsegmental pulmonary emboli in the left lower lobe pulmonary artery branches. Mild bilateral groundglass opacities with decreased atypical pneumonia or pneumonitis compared to prior CT. Electronically Signed: Jing Silva MD at 15:48 EDT ,
[2024-01-18] MEDS: APIXABAN 5 MG TABLET 10 MG PO (17:51)
[2024-01-18] MEDS: Atorvastatin Calcium 20 MG Tablet PO (22:04)
[2024-01-18] MEDS: Acetaminophen 325 MG Tablet 650 MG PO (22:06)
[2024-01-19] VITALS (8 sets, daily range): BP systolic 116–117; BP diastolic 71–73; PULSE 73–88; RESP 16–20; TEMP 36.3–36.6; O2SAT 91–96; BMI 35.9
[2024-01-19] MEDS: APIXABAN 5 MG TABLET 10 MG PO ×2 (00:11→10:21)
[2024-01-19 06:22] LABS: Absolute Lymphocyte Count 3.14 X10^3/uL (0.83-4.51); Basophil# 0.03 X10^3/uL; Basophil% 0.2 % (0-1); Eosinophil# 0.06 X10^3/uL; Eosinophils% 0.5 % (0-5); Hematocrit 31.5 % (37-47); Hemoglobin 9.7 g/dL (12.0-15.0); Lymphocyte # 3.14 X10^3/ul (0.83-4.51); Lymphocyte % 25.1 % (19-41); Mean Corp Hgb Conc 30.8 g/dL (32-36); Mean Corpuscular Hgb 27.9 pg (27.0-32.0); Mean Corpuscular Volume 90.5 fL (81-99); Mean Platelet Vol. 11.6 fl (6.2-12.0); Monocyte# 1.21 X10^3/uL; Monocyte% 9.7 % (0-10); NRBC Flagged by Analyzer 0 % (0-5); Neutrophil # 7.98 X10^3/uL (2.7-7.7); Neutrophil % 63.8 % (47-70); Platelet Count 327 K/mm3 (150-450); RBC Distribution Width CV 16.1 % (11.6-14.6); RBC Distribution Width SD 52.4 fl (35.1-43.9); Red Blood Count 3.48 M/mm3 (4.2-5.4); White Blood Count 12.5 K/mm3 (4.4-11.0)
[2024-01-19 06:40] LABS: Anion Gap 8 (5-15); BUN 28 mg/dL (7-18); BUN/Creat Ratio 31.8 RATIO (10-20); Calcium,Total 9.2 mg/dL (8.5-10.1); Chloride 108 mmol/L (98-107); Creatinine, Serum 0.88 mg/dL (0.55-1.02); EST Glomerular Filtration Rate 74 mL/min (>60); Est Glom Filt Rate - Afr Amer 89 mL/min (>60); Estimated Creatinine Clearance 86.97 ml/min; Glucose 95 mg/dL (74-106); Potassium 4.2 mmol/L (3.5-5.1); Sodium Level 141 mmol/L (136-145)
[2024-01-19] MEDS: Ipratropium/Albuterol Sulfate 3 ML AMPUL.NEB INHALATION ×3 (07:42→15:30)
[2024-01-19] MEDS: Pregabalin 75 MG Capsule PO (10:20)
[2024-01-19] MEDS: FLUoxetine 20 MG Capsule PO (10:21)
[2024-01-19] MEDS: predniSONE 20 MG Tablet 40 MG PO (10:21)
[2024-01-19] MEDS: Montelukast 10 MG Tablet PO (10:21)
[2024-01-19] MEDS: Pantoprazole Sodium 40 MG Tablet PO (10:21)
[2024-01-19] MEDS: Ferrous Gluconate 324 MG Tablet PO (10:22)
[2024-01-19] MEDS: Fluoxetine HCl 40 MG CAPSULE PO (10:22)
[2024-01-19] MEDS: Metoprolol Tartrate 25 MG Tablet PO (10:22)
--- NOTE | 2024-01-19 11:12 | PN_ITS ---
Subjective Subjective Patient seen and examined. She had no active complaints and had an uneventful night. Review of systems otherwise negative. She has remained hemodynamically stable. She is awaiting placement. Of note CT of the chest done yesterday on account of elevated D-dimer which was ordered due to her onset of wide-complex V. tach showed PE in the left lower lobe subsegmental arteries. She is therefore currently on therapeutic Eliquis. Objective Data Objective Data Vital Signs: Vital Signs Temp Pulse Resp BP Pulse Ox O2 Del Method O2 Flow Rate 97.8 F 79 18 116/73 91 Room Air 1 01/19/24 10:00 01/19/24 10:22 01/19/24 10:00 01/19/24 10:22 01/19/24 10:09 01/19/24 10:16 01/19/24 03:44 FiO2 30 01/13/24 08:00 Oxygen Flow Rate (L/min) 1 Oxygen Delivery Method Room Air Weight: 202 lb 13.204 oz Body Mass Index (BMI) 35.9 Intake & Output: Intake and Output for Last 24 Hours 01/17/24 01/18/24 01/19/24 23:59 23:59 23:59 Intake Total 480 / 480 480 / 480 Output Total 500 / 500 Balance -20 / -20 480 / 480 Lab / Micro Data 01/19/24 05:32 01/19/24 05:32 Labs: Laboratory Results - last 24 hr 01/18/24 05:06: D-Dimer Quant (PE/DVT) 1.50 H* 01/18/24 12:45: Troponin I High Sens 19 01/19/24 05:32: WBC 12.5 H, RBC 3.48 L, Hgb 9.7 L, Hct 31.5 L, MCV 90.5, MCH 27.9, MCHC 30.8 L, RDW Std Deviation 52.4 H, RDW Coeff of Beto 16.1 H, Plt Count 327, MPV 11.6, Immature Gran % (Auto) 0.700, Neut % (Auto) 63.8, Lymph % (Auto) 25.1, [place] % (Auto) 9.7, Eos % (Auto) 0.5, Baso % (Auto) 0.2, Absolute Neuts (auto) 8.0 H, Absolute Lymphs (auto) 3.14, Nucleated RBC % 0, Sodium 141, Potassium 4.2, Chloride 108 H, Carbon Dioxide 25.0, Anion Gap 8, BUN 28 H, Creatinine 0.88, Estim Creat Clear Calc 86.97, Est GFR (MDRD) Af Amer 89, Est GFR (MDRD) Non-Af 74, BUN/Creatinine Ratio 31.8 H, Glucose 95, Calcium 9.2 Micro: Microbiology 01/06/24 11:10 Blood Culture (Wb) - Right Hand Blood Culture - Final No growth in 5 days. 01/07/24 12:50 Sputum, Induced/Lukens Gram Stain - Final 01/07/24 12:50 Sputum, Induced/Lukens Respiratory Culture - Final Streptococcus group F 01/06/24 21:00 Urine, Random Legionella Antigen - Final 01/06/24 21:00 Urine, Random Streptococcus pneumoniae Antigen (M - Final 01/06/24 15:48 Mucosa - Nasopharyngeal Respiratory Panel (PCR) - Final 01/06/24 11:42 Mucosa - Nasopharyngeal SARS-CoV-2, Influenza & RSV (PCR) - Final Radiography Diagnostic Testing: Radiology Impression Chest CTA 01/18/24 14:20 IMPRESSION: Subsegmental pulmonary emboli in the left lower lobe pulmonary artery branches. Mild bilateral groundglass opacities with decreased atypical pneumonia or pneumonitis compared to prior CT. Electronically Signed: Jing Silva MD at 15:48 EDT Reading Location ID and State: [facility] / [place] Tel , Service support , ADDENDUM: 01/18/24 1613 IMPRESSION: Subsegmental pulmonary emboli in the left lower lobe pulmonary artery branches. Mild bilateral groundglass opacities with decreased atypical pneumonia or pneumonitis compared to prior CT. N.B. : Izzy Abrams RN, confirmed on 01/18/2024 16:06:44 (ET) that the healthcare facility has received the radiology report. Electronically Signed: Jing Silva MD at 15:48 EDT , Rhythm Strip Rhythm Strip: Sinus Rhythm Physical Exam Const alert, oriented x3, no apparent distress and average body habitus Constitutional Narrative: frail General Appearance: cooperative, well kempt and well developed Orientation / Consciousness: awake HEENT normocephalic, head/scalp atraumatic, hearing grossly normal bilaterally, nasal mucous membranes and turbinates normal and moist oral mucous membranes Eyes PERRL, EOMs intact bilaterally and conjunctivae normal Neck no lymphadenopathy, supple, no JVD, thyroid normal and no carotid bruits Neck Narrative: General: trachea midline Lymph Lymphatic: no lymphadenopathy noted and no lymphedema noted Chest inspection of chest normal Resp normal respiratory effort, no retractions, no use of accessory muscles and clear to auscultation bilaterally Resp Narrative: on room air. Cardio regular rate, regular rhythm, S1 normal heart sound, S2 normal heart sound, no rub, no gallops, no clicks and peripheral pulses 2+ throughout Cardio Narrative: 2 out of 6 systolic murmur loudest at right upper sternal border GI normal to inspection, nondistended, normoactive bowel sounds, soft to palpation, non-tender and non-distended Back/Spine normal ROM Extremity normal to inspection, normal capillary refill, no clubbing, cyanosis or edema, no calf tenderness and no pedal edema General Extremity: no tenderness to palpation of joints or extremities Skin no rashes or lesions noted, no wounds, skin turgor normal, no jaundice, no petechiae and no mottling General Skin Exam: no breakdown Neuro oriented x3, CN's II-XII intact bilaterally, moves all extremities and no focal motor deficits Speech: speech normal Motor Exam: general weakness Psych thought process normal Mood & Affect: flat affect Assessment & Plan Assessment/Plan (1) Acute respiratory failure with hypoxia: (2) Pneumonia: PLAN: Plan #Acute hypoxic respiratory failure * due to pneumonia. * critical care on board * Was intubated on admission but extubated a couple of days ag. Now transferred to the PCU. On 2 L of oxygen. * 2D echo showed EF of 55% with RVSP of 48mmHg and prominent pericardial fat pad vs small pleural effusion and mild aortic stenosis. * Completed a course of vancomycin and cefepime. * On incentive spirometry. * Diurese as needed to help with fluid overload. * Resolved. Now on room air. * #Acute encephalopathy * EEG done showed severe diffuse encephalopathy. * critical care on board. * had MRI of the brain which showed no acute intracranial pathology. * On 2 L of oxygen. Her mentation has improved. * #Ventricular tachycardia * Patient developed chest pain overnight and was found to have wide complex tachycardia. She was started on PO metoprolol * 2D echo done during this admission as above * cardiology consulted, and D-dimer was ordered which was elevated. CT of the chest done showed PE in the subsegmental arteries of the left lower lobe. Patient currently on therapeutic Eliquis. * IV metoprolol prn. * #Pulmonary embolism: As above. On eliquis. #ISA: Resolved. #Hypokalemia: resolved. #COPD: on breathing treatment with bronchodilators. Now on PO prednisone 40mg daily x 5 days. #Benign essential hypertension: on Iv hydralazine. also on lasix. #Acute on chronic HFpEF: stable. On 2L of oxygen. DVT prophylaxis: On therapeutic Eliquis. Disposition: awaiting placement. Charges/Coding Visit Charges Inpatient E&M: 59654 Subs Hosp L2
--- NOTE | 2024-01-19 14:31 | CASEMGMT ---
Discharge Planning Amanda Simmons has obtained auth to admit. Chrissie Cortez DC Planning Asst.
--- NOTE | 2024-01-19 14:33 | CASEMGMT ---
Addendum entered by Fabby Puckett 01/19/24 14:38: SW updated patient that she has been approved to go to [facility] today. Patient said her parents can take her. GONZALO let patient know we are waiting on Dr to put in orders still. Fabby CABA Original Note: Patient was approved for [facility]. GONZALO notified physician, RN, and certified legal secretary specialist. Patient will go today. GONZALO will notify patient as well. Plan: d/c to [facility] under intermediate level of care on a convalescent stay. Fabby CABA
--- NOTE | 2024-01-19 15:39 | TREXTCAR_ITS ---
Diet Diet Order/Speech Therapy: 01/14/24 12:34 Diet: Cardiac - Heart Healthy Food consistency:: Soft & Bite Sized Liquid Consistency:: Honey/Moderately Thick Dietary Modifications:: Sodium Restricted Diet Comments: Direct supervision (family ok to supervise if present), FFWP Routine Orders/Code Status Enema Type: Fleetz Enema Frequency: Daily PRN Suppository Type: Dulcolax 10mg Suppository Frequency: Daily PRN O2 Frequency: PRN Keep PO Greater than or Equal to (%): 90 Therapies Weight Bearing: Weight bearing as tolerated Physical Therapy: Eval and Treat Occupational Therapy: Eval and Treat Problem/Diagnosis (1) Acute respiratory failure with hypoxia: Status: Acute Code(s): J96.01 - Acute respiratory failure with hypoxia (2) Pneumonia: Status: Acute Code(s): J18.9 - Pneumonia, unspecified organism Plan #Acute hypoxic respiratory failure * due to pneumonia. * critical care on board * Was intubated on admission but extubated a couple of days ag. Now transferred to the PCU. On 2 L of oxygen. * 2D echo showed EF of 55% with RVSP of 48mmHg and prominent pericardial fat pad vs small pleural effusion and mild aortic stenosis. * Completed a course of vancomycin and cefepime. * On incentive spirometry. * Diurese as needed to help with fluid overload. * Resolved. Now on room air. * #Acute encephalopathy * EEG done showed severe diffuse encephalopathy. * critical care on board. * had MRI of the brain which showed no acute intracranial pathology. * On 2 L of oxygen. Her mentation has improved. * #Ventricular tachycardia * Patient developed chest pain overnight and was found to have wide complex tachycardia. She was started on PO metoprolol * 2D echo done during this admission as above * cardiology consulted, and D-dimer was ordered which was elevated. CT of the chest done showed PE in the subsegmental arteries of the left lower lobe. Patient currently on therapeutic Eliquis. * IV metoprolol prn. * #Pulmonary embolism: As above. On eliquis. #ISA: Resolved. #Hypokalemia: resolved. #COPD: on breathing treatment with bronchodilators. Now on PO prednisone 40mg daily x 5 days. #Benign essential hypertension: on Iv hydralazine. also on lasix. #Acute on chronic HFpEF: stable. On 2L of oxygen. DVT prophylaxis: On therapeutic Eliquis. Disposition: awaiting placement. Allergies/Procedures Done in Hospital Allergies amitriptyline Allergy (Verified 12/29/23 20:55) Other states rhabdomyolosis from it amoxicillin (Amoxicillin) Allergy (Verified 12/29/23 20:55) Rash erythromycin base (Erythromycin Base) Allergy (Verified 12/29/23 20:55) Rash hydroxyzine Allergy (Verified 12/10/23 10:24) Rash levofloxacin (From Levaquin) Allergy (Verified 12/29/23 20:55) Swelling milnacipran Allergy (Verified 12/29/23 20:55) Other states got rhabdomyolysis from it milnacipran HCl (From Savella) Allergy (Verified 12/29/23 20:55) Other states had rhabdomyolysis celecoxib (From Celebrex) Adverse Reaction (Verified 12/29/23 20:55) Other suicidal thoughts diphenhydramine HCl (From Benadryl) Adverse Reaction (Verified 12/29/23 20:55) muscle spasms duloxetine HCl (From Cymbalta) Adverse Reaction (Verified 12/29/23 20:55) Other states causes suicidal thoughts meloxicam Adverse Reaction (Verified 12/29/23 20:55) Swelling of legs/chest pain Procedures: 2-D Echocardiogram Type of Care/Length of Stay Estimated LOS: Convalescent Care Less Than 30 days Type of Care Needed: Skilled Rehab Potential: Fair Prognosis: Fair Additional Orders/Day of Discharge Day of Discharge: 01/15/24 Dietary and Speech Recommendations Dietitian Recommendations/Changes: Will continue cardiac/sodium-restricted with consistency/texture 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 Will offer ONS as needed if PO fails at meals. Fluid restriction as needed per physician. Discharge Plan Admission Admit Date/Time: 01/06/24 14:54 Primary Reason for Your Visit: acute hypoxic respiratory failure Attending Provider: Mariela Renae Primary Care Provider: Bill Dai Consulting Providers: Marlee Gonzalez; Paras Sotelo; Ryan Boss; Tamir Fisher; Andrew Wu; Armond Robertson; Deric Jonas; Micah Muñoz; Joshua Skinner; Malika Omalley; Jaylan Sandoval; Jaziel Lake; Claudia Fernandez; Olivier Cohn; Ranulfo Ramsay; Benji Drew; Jens Groves; Herberth Nicole; Bill Valdes; Tiarra Bentley; Maribel Hamilton; Lien Zaragoza; Brian Marquez; Jose Jang; Jimmy Figueroa; FESTUS DEE; Vilma Urias; Chanel Puri; Bart Madrigal; Yessi Coppola; Hardeep Pettit Instructions Patient Instructions: Embolism Pulmonary Dc Discharge Orders/Prescriptions Prescriptions: New metoprolol tartrate 25 mg Tablet 25 mg PO BID Qty: 60 2RF Eliquis DVT-PE Treat 30D Start 5 mg (74 tabs) tablets,dose pack 5 mg PO BID Qty: 74 0RF Rx Instructions: take 2 tablets (10mg) twice daily for the first 7 days, then continue with one tablet (5mg) twice daily. Continued montelukast 10 mg tablet 10 mg PO DAILY lisinopril 30 mg tablet 30 mg PO DAILY ranolazine 500 mg tablet extended release 12 hr 500 mg PO BID medroxyprogesterone 150 MG/ML syringe 150 mg IM .[id number] Patient Comments: CONTROL albuterol sulfate 1 INHALER inhaler 1 puff INHALATION Q4H PRN (Reason: Sob &/Or Wheezing) Patient Comments: BREATHING albuterol sulfate 2.5 MG/3 ML solution for nebulization 2.5 mg INHALATION Q4H PRN Qty: 25 0RF Rx Instructions: Use q4 hours and PRN for wheezing fluoxetine 40 MG capsule 40 mg PO DAILY Patient Comments: PT TAKES 40MG AND 20MG TOGETHER TO EQUAL 60MG DOSE oxaprozin 600 MG tablet 600 mg PO BID PRN (Reason: pain) fluoxetine 20 mg tablet 20 mg PO DAILY Patient Comments: PT TAKES 40MG AND 20MG TOGETHER TO EQUAL 60MG DOSE budesonide-formoterol [Symbicort] 160-4.5 mcg/actuation HFA aerosol inhaler 2 puff inhalation DAILY omeprazole 20 mg capsule,delayed release(DR/EC) 20 mg PO DAILY tizanidine 4 mg tablet 4 mg PO TID PRN (Reason: muscle spasticity) baclofen 10 mg tablet 10 mg PO TID PRN (Reason: muscle spasm) atorvastatin 20 mg tablet 20 mg PO DAILY Patient Comments: [NO ORIGINAL SIG] pregabalin 300 mg capsule 300 mg PO Q12H Patient Comments: [NO ORIGINAL SIG] ferrous gluconate 324 mg (38 mg iron) tablet 324 mg PO DAILY Qty: 30 0RF Discontinued baclofen 10 mg tablet 10 mg PO TID carvedilol 3.125 mg tablet 3.125 mg PO BID Referrals / Follow Up: Bill Dai MD [Primary Care Provider] - Within 1 Week Disposition Disposition (needs filled in before D/C Order can be placed): [facility]
--- NOTE | 2024-01-19 15:40 | DS.PCM_ITS ---
Providers Date of Admission: 01/06/24 Date of Discharge: 01/19/24 Primary Care Physician: Dr. Bill Dai MD Consultations 01/07/24 08:11 Consult: Wholesale Representative / Pulmonary Medicine Routine Consulting Provider: Intensivists/Pulmonary Med Reason for Consult: acute hypox resp failure w/ diffuse b/l GGO's EMERGENT Consult: No Notified: Yes Date Notified: 01/07/24 Time Notified: 08:29 Method of Notification: Text 01/18/24 05:56 Consult: Cardiology Routine Consulting Provider: Hardeep Pettit Reason for Consult: wide complex tachycardia EMERGENT Consult: No Notified: Yes Date Notified: 01/18/24 Time Notified: 05:57 Method of Notification: Text Reason For Visit: ACUTE HYPOXEMIC RESPIRATORY FAILURE Diagnosis Discharge Diagnosis (1) Acute respiratory failure with hypoxia: Status: Acute Code(s): J96.01 - Acute respiratory failure with hypoxia (2) Pneumonia: Status: Acute Code(s): J18.9 - Pneumonia, unspecified organism Plan #Acute hypoxic respiratory failure * due to pneumonia. * critical care on board * Was intubated on admission but extubated a couple of days ag. Now transferred to the PCU. On 2 L of oxygen. * 2D echo showed EF of 55% with RVSP of 48mmHg and prominent pericardial fat pad vs small pleural effusion and mild aortic stenosis. * Completed a course of vancomycin and cefepime. * On incentive spirometry. * Diurese as needed to help with fluid overload. * Resolved. Now on room air. * #Acute encephalopathy * EEG done showed severe diffuse encephalopathy. * critical care on board. * had MRI of the brain which showed no acute intracranial pathology. * On 2 L of oxygen. Her mentation has improved. * #Ventricular tachycardia * Patient developed chest pain overnight and was found to have wide complex tachycardia. She was started on PO metoprolol * 2D echo done during this admission as above * cardiology consulted, and D-dimer was ordered which was elevated. CT of the chest done showed PE in the subsegmental arteries of the left lower lobe. Patient currently on therapeutic Eliquis. * IV metoprolol prn. * #Pulmonary embolism: As above. On eliquis. #ISA: Resolved. #Hypokalemia: resolved. #COPD: on breathing treatment with bronchodilators. Now on PO prednisone 40mg daily x 5 days. #Benign essential hypertension: on Iv hydralazine. also on lasix. #Acute on chronic HFpEF: stable. On 2L of oxygen. DVT prophylaxis: On therapeutic Eliquis. Disposition: awaiting placement. Medications at Discharge Home Medications medroxyprogesterone 150 mg/mL intramuscular syringe 150 mg IM .[id number] control 03/15/16 albuterol sulfate 90 mcg/actuation aerosol inhaler 1 puff inhalation Q4H PRN Sob &/Or Wheezing 10/02/16 albuterol sulfate 2.5 mg/3 mL (0.083 %) solution for nebulization 2.5 mg (3 mL) inhalation Q4H PRN breathing #25 vials 04/15/19 fluoxetine 40 mg capsule 40 mg PO DAILY DEPRESSION 07/10/20 oxaprozin 600 mg tablet 600 mg PO BID PRN pain 07/10/20 lisinopril 30 mg tablet 30 mg PO DAILY blood pressure 11/06/23 montelukast 10 mg tablet 10 mg PO DAILY allergies 11/06/23 ranolazine 500 mg tablet,extended release,12 hr 500 mg PO BID chest pain 11/06/23 atorvastatin 20 mg tablet 20 mg PO DAILY cholesterol 12/29/23 pregabalin 300 mg capsule 300 mg PO Q12H nerve pain 12/29/23 ferrous gluconate 324 mg (38 mg iron) tablet 324 mg PO DAILY #30 tabs 01/01/24 budesonide-formoterol HFA 160 mcg-4.5 mcg/actuation aerosol inhaler (Symbicort) 2 puff inhalation DAILY 01/06/24 fluoxetine 20 mg tablet 20 mg PO DAILY 01/06/24 omeprazole 20 mg capsule,delayed release 20 mg PO DAILY 01/06/24 tizanidine 4 mg tablet 4 mg PO TID PRN muscle spasticity 01/14/24 baclofen 10 mg tablet 10 mg PO TID PRN muscle spasm 01/16/24 apixaban 5 mg (74 tabs) tablets in a dose pack (Eliquis DVT-PE Treat 30D Start) 5 mg PO BID #74 tabs 01/19/24 metoprolol tartrate 25 mg tablet 25 mg PO BID #60 tabs 01/19/24 Hospital Course Operations None Procedures 2-D Echocardiogram Summary of Care Provided Minutes Spent on Discharge: 65 Hospital Course: Patient is a 43-year-old female with past medical history as outlined was admitted through the ED on 01/06/2024 with a complaint of shortness of breath. She had been feeling ill for several days prior to admission and had a progressively worsening cough and shortness of breath. Cough was dry and nonproductive. She had mild nausea but no vomiting. She was at 2 L of oxygen to sleep at night. She had had a history of respiratory failure requiring mechanical ventilation and eventual tracheostomy due to ARDS from pneumonia at [facility] about a year prior to admission. On admission BNP was not elevated and CT of the chest showed no evidence of PE but showed diffuse patchy bilateral groundglass changes throughout both lungs close consistent with atypical pneumonia versus heart failure. She was initially started on IV azithromycin and ceftriaxone but antibiotics were subsequently broadened. She was initially admitted to the progressive care unit. However ABG subsequently showed evidence of worsening CO2 retention and so she was transferred to the ICU after being initiated on BiPAP. She was subsequently intubated in the ICU. Critical care was consulted. She had 2D echo which showed EF of 55% with normal diastolic function. She had a prolonged course on the ventilator and failed numerous breathing trials. She did have EEG done which showed severe diffuse encephalopathy. MRI of the brain showed no acute intracranial pathology. She was subsequently placed on Precedex to see if it would help her pass the spontaneous breathing trial. Sputum cultures greow Strep Grp F. She completed a course of antibiotics. She was eventually extubated to oxygen by nasal cannula and did well. Hospital course was again complicated by brief episodes of wide-complex ventricular tachycardia. Cardiology was consulted. D-dimer was ordered which was elevated and she had a CT of the chest which showed left lower lobe subsegmental PE. She was therefore initiated on Eliquis. She worked with physical therapy and was deemed as needing skilled care. She was therefore discharged to intermediate facility on 01/19/2024. She is follow-up with her primary care doctor within 1 to 2 weeks. Of note she was started on p.o. metoprolol 25 mg twice daily for the wide-complex ventricular tachycardia. Patient was seen and examined prior to discharge. She felt well and had no complaints. She felt better and had an uneventful night. Review of symptoms otherwise negative. Labs and vitals reviewed. Medication reviewed and reconciled. Physical Exam Const alert, oriented x3, no apparent distress, average body habitus, healthy appearing and well nourished Constitutional Narrative: frail General Appearance: cooperative, comfortable, well kempt and well developed Orientation / Consciousness: awake HEENT normocephalic, head/scalp atraumatic, hearing grossly normal bilaterally, nasal mucous membranes and turbinates normal and moist oral mucous membranes Mouth: oral and palatal mucosa normal Eyes PERRL, EOMs intact bilaterally and conjunctivae normal Neck no lymphadenopathy, supple, no JVD, thyroid normal and no carotid bruits Neck Narrative: General: trachea midline Lymph Lymphatic: no lymphadenopathy noted and no lymphedema noted Chest inspection of chest normal Resp normal respiratory effort, no retractions, no use of accessory muscles and clear to auscultation bilaterally Resp Narrative: on room air. Auscultation: crackles, rales, rhonchi and wheezes Cardio regular rate, regular rhythm, S1 normal heart sound, S2 normal heart sound, no murmurs, no rub, no gallops, no clicks and peripheral pulses 2+ throughout Cardio Narrative: 2 out of 6 systolic murmur loudest at right upper sternal border GI normal to inspection, nondistended, normoactive bowel sounds, soft to palpation, non-tender and non-distended Back/Spine normal ROM Extremity normal to inspection, full ROM, normal capillary refill, no clubbing, cyanosis or edema, no calf tenderness and no pedal edema Extremity Narrative: Pedal and radial pulses are 2+ General Extremity: no tenderness to palpation of joints or extremities Skin no rashes or lesions noted, no wounds, skin turgor normal, no jaundice, no petechiae and no mottling General Skin Exam: no breakdown Neuro oriented x3, CN's II-XII intact bilaterally, moves all extremities and no focal motor deficits Neuro Narrative: lethargic Speech: speech normal Motor Exam: general weakness Psych thought process normal Weight / BMI Weight Weight: 202 lb 13.204 oz Body Mass Index (BMI) 35.9 ABG / Lab / Microbiology Data 01/19/24 05:32 01/19/24 05:32 Laboratory: Laboratory Results - last 24 hr 01/19/24 05:32: WBC 12.5 H, RBC 3.48 L, Hgb 9.7 L, Hct 31.5 L, MCV 90.5, MCH 27.9, MCHC 30.8 L, RDW Std Deviation 52.4 H, RDW Coeff of Beto 16.1 H, Plt Count 327, MPV 11.6, Immature Gran % (Auto) 0.700, Neut % (Auto) 63.8, Lymph % (Auto) 25.1, Chambers % (Auto) 9.7, Eos % (Auto) 0.5, Baso % (Auto) 0.2, Absolute Neuts (auto) 8.0 H, Absolute Lymphs (auto) 3.14, Nucleated RBC % 0, Sodium 141, Potassium 4.2, Chloride 108 H, Carbon Dioxide 25.0, Anion Gap 8, BUN 28 H, Creatinine 0.88, Estim Creat Clear Calc 86.97, Est GFR (MDRD) Af Amer 89, Est GFR (MDRD) Non-Af 74, BUN/Creatinine Ratio 31.8 H, Glucose 95, Calcium 9.2 Microbiology: Microbiology 01/06/24 11:10 Blood Culture (Wb) - Right Hand Blood Culture - Final No growth in 5 days. 01/07/24 12:50 Sputum, Induced/Lukens Gram Stain - Final 01/07/24 12:50 Sputum, Induced/Lukens Respiratory Culture - Final Streptococcus group F 01/06/24 21:00 Urine, Random Legionella Antigen - Final 01/06/24 21:00 Urine, Random Streptococcus pneumoniae Antigen (M - Final 01/06/24 15:48 Mucosa - Nasopharyngeal Respiratory Panel (PCR) - Final 01/06/24 11:42 Mucosa - Nasopharyngeal SARS-CoV-2, Influenza & RSV (PCR) - Final Radiography Diagnostic Testing: Radiology Impression Chest CTA 01/18/24 14:20 IMPRESSION: Subsegmental pulmonary emboli in the left lower lobe pulmonary artery branches. Mild bilateral groundglass opacities with decreased atypical pneumonia or pneumonitis compared to prior CT. Electronically Signed: Jing Silva MD at 15:48 EDT , ADDENDUM: 01/18/24 1618 IMPRESSION: Subsegmental pulmonary emboli in the left lower lobe pulmonary artery branches. Mild bilateral groundglass opacities with decreased atypical pneumonia or pneumonitis compared to prior CT. N.B. : Izzy Abrams RN, confirmed on 01/18/2024 16:06:44 (ET) that the healthcare facility has received the radiology report. Electronically Signed: Jing Silva MD at 15:48 EDT Reading Location ID and State: [facility] / [place] Tel , Service support , D/C Instructions Discharge Diet: Low fat / Low cholesterol Discharge Activity: Return to Normal Activity Weight Bearing Status: Weight bearing as tolerated Meaningful Use Info Meaningful Use Meaningful Use Diagnoses (Choose all that apply): VTE Ischemic Stroke Statin Dosing Therapy Reference: STATIN DOSE THERAPY REFERENCE: * Patients > 75 years receive moderate or high dose statin therapy. * Patients 75 years or YOUNGER should receive HIGH intensity statin dose unless contraindicated. You will be required to document reason for non-treatment if statin daily dose does not meet guidelines. HIGH DOSE STATIN THERAPY DAILY Atorvastatin > than or = to 40 mg Rosuvastatin > than or = to 20 mg Amlodipine + Atorvastatin > than or = to 2.5/40 mg Ezetimibe + Simvastatin 10/80 mg Simvastatin 80mg VTE Anticoag overlap given w/in hospital stay or rx'd at dc?: Yes Pt receive overlap for 5 days?: No Reason overlap not ordered, prescribed, or given for 5 days: Procedure Not Indicated Discharge Plan Admission Admit Date/Time: 01/06/24 14:54 Primary Reason for Your Visit: acute hypoxic respiratory failure Attending Provider: Mariela Renae Primary Care Provider: Bill Dai Consulting Providers: Marlee Gonzalez; Paras Sotelo; Ryan Boss; Tamir Fisher; Andrew Wu; Armond Robertson; Deric Jonas; Micah Muñoz; Joshua Skinner; Malika Omalley; Jaylan Sandoval; Jaziel Lake; Claudia Fernandez; Olivier Cohn; Ranulfo Ramsay; Benji Drew; Jens Groves; Herberth Nicole; Bill Valdes; Tiarra Bentley; Maribel Hamilton; Lien Zaragoza; Brian Marquez; Jose Jang; Jimmy Figueroa; FESTUS DEE; Vilma Urias; Chanel Puri; Bart Madrigal; Yessi Coppola; Hardeep Pettit Instructions Patient Instructions: Embolism Pulmonary Dc Discharge Orders/Prescriptions Prescriptions: New metoprolol tartrate 25 mg Tablet 25 mg PO BID Qty: 60 2RF Eliquis DVT-PE Treat 30D Start 5 mg (74 tabs) tablets,dose pack 5 mg PO BID Qty: 74 0RF Rx Instructions: take 2 tablets (10mg) twice daily for the first 7 days, then continue with one tablet (5mg) twice daily. Continued montelukast 10 mg tablet 10 mg PO DAILY lisinopril 30 mg tablet 30 mg PO DAILY ranolazine 500 mg tablet extended release 12 hr 500 mg PO BID medroxyprogesterone 150 MG/ML syringe 150 mg IM .[id number] Patient Comments: CONTROL albuterol sulfate 1 INHALER inhaler 1 puff INHALATION Q4H PRN (Reason: Sob &/Or Wheezing) Patient Comments: BREATHING albuterol sulfate 2.5 MG/3 ML solution for nebulization 2.5 mg INHALATION Q4H PRN Qty: 25 0RF Rx Instructions: Use q4 hours and PRN for wheezing fluoxetine 40 MG capsule 40 mg PO DAILY Patient Comments: PT TAKES 40MG AND 20MG TOGETHER TO EQUAL 60MG DOSE oxaprozin 600 MG tablet 600 mg PO BID PRN (Reason: pain) fluoxetine 20 mg tablet 20 mg PO DAILY Patient Comments: PT TAKES 40MG AND 20MG TOGETHER TO EQUAL 60MG DOSE budesonide-formoterol [Symbicort] 160-4.5 mcg/actuation HFA aerosol inhaler 2 puff inhalation DAILY omeprazole 20 mg capsule,delayed release(DR/EC) 20 mg PO DAILY tizanidine 4 mg tablet 4 mg PO TID PRN (Reason: muscle spasticity) baclofen 10 mg tablet 10 mg PO TID PRN (Reason: muscle spasm) atorvastatin 20 mg tablet 20 mg PO DAILY Patient Comments: [NO ORIGINAL SIG] pregabalin 300 mg capsule 300 mg PO Q12H Patient Comments: [NO ORIGINAL SIG] ferrous gluconate 324 mg (38 mg iron) tablet 324 mg PO DAILY Qty: 30 0RF Discontinued baclofen 10 mg tablet 10 mg PO TID carvedilol 3.125 mg tablet 3.125 mg PO BID Referrals / Follow Up: Bill Dai MD [Primary Care Provider] - Within 1 Week Disposition Disposition (needs filled in before D/C Order can be placed): Shelter Facility Charges/Coding Visit Charges Inpatient E&M: 17075 Disch Hosp >30min
--- NOTE | 2024-01-19 16:41 | CASEMGMT ---
Discharge Planning Discharge orders, signed med list, and transport time sent to [facility] via [facility]. Patients parents will transport. Nursing and SW updated. Chrissie Cortez DC Planning Asst.
== END 2024-01-19 16:57 | disposition skilled nursing facility (03) | DRG 130 ==
LOC: ED 11:35 → PCU 15:14 → ICU 01-08 07:23 → PCU 01-14 18:16
PROVIDERS: Hospitalist; Internal Medicine; Internal Medicine Cardiovascular Disease; Internal Medicine Critical Care Medicine; Admitting Provider Internal Medicine; Emergency Provider Emergency Medicine; PCP Family Medicine; Visit Provider Student in an Organized Health Care Education/Training Program
DX: J96.01 Acute respiratory failure with hypoxia (principal); I50.33 Acute on chronic diastolic (congestive) heart failure; G93.41 Metabolic encephalopathy; I26.93 Single subsegmental thrombotic pulmonary embolism without acute cor pulmonale; I47.29 Other ventricular tachycardia; J15.4 Pneumonia due to other streptococci; D63.1 Anemia in chronic kidney disease; I13.0 Hypertensive heart and chronic kidney disease with heart failure and stage 1 through stage 4 chronic kidney disease, or unspecified chronic kidney disease; J44.0 Chronic obstructive pulmonary disease with (acute) lower respiratory infection; N18.32 Chronic kidney disease, stage 3b; F32.A Depression, unspecified; E66.9 Obesity, unspecified; Z95.2 Presence of prosthetic heart valve; F60.3 Borderline personality disorder; N17.9 Acute kidney failure, unspecified; K21.9 Gastro-esophageal reflux disease without esophagitis; F41.9 Anxiety disorder, unspecified; E87.6 Hypokalemia; J44.1 Chronic obstructive pulmonary disease with (acute) exacerbation; E78.5 Hyperlipidemia, unspecified; G89.4 Chronic pain syndrome; Z68.37 Body mass index [BMI] 37.0-37.9, adult; Z79.01 Long term (current) use of anticoagulants; Z79.51 Long term (current) use of inhaled steroids; Z79.899 Other long term (current) drug therapy; Z86.711 Personal history of pulmonary embolism; Z86.718 Personal history of other venous thrombosis and embolism; Z87.891 Personal history of nicotine dependence
CPT/HCPCS: 31500; 31720; 36415; 36569; 36600; 70450; 71045; 71260; 71275; 74230; 80048; 80053; 80076; 80202; 82140; 82550; 82803; 83605; 83735; 83880; 84100; 84145; 84443; 84478; 84484; 85025; 85379; 85610; 85730; 86038; 86200; 86225; 86235; 86256; 86431; 87040; 87070; 87077; 87205; 87449; 87631; 87633; 92526; 92610; 92611; 93005; 93306; 93308; 94002; 94003; 94640; 94660; 94668; 94760; 94762; 95819; 97110; 97162; 97163; 97166; 97530; 97535; 97802; 97803; 99252; 99284; J7030; J7040; J7050; Q9957; Q9967; A4216; C8924; C8929; G0463; J1940; J2405

== ENCOUNTER 2024-11-12 12:35 | Inpatient (IN) | payer MEDICAID, SELFPAY ==
[2024-11-12] VITALS (22 sets, daily range): BP systolic 80–198; BP diastolic 35–129; PULSE 64–105; RESP 14–28; TEMP 35.5–36.6; O2SAT 90–100; BMI 36.5
--- NOTE | 2024-11-12 12:52 | EKG12_ITS ---
Test Reason : Blood Pressure : */* mmHG Vent. Rate : 102 BPM Atrial Rate : * BPM P-R Int : * ms QRS Dur : 84 ms QT Int : 398 ms P-R-T Axes : * 25 45 degrees QTcB Int : 518 ms Sinus tachycardia BASELINE ARTIFACT MINOR NONSPECIFIC ST ABNORMALITY Abnormal ECG Confirmed by Arcadio Morales ([id number]), online editor JUN BLOOD ([id number]) on 11/16/2024 11:40:25 AM Referred By: Confirmed By: Arcadio Morales
[2024-11-12 13:03] LABS: Hematocrit 34.7 % (37-47); Hemoglobin 11.1 g/dL (12.0-15.0); Immature Granulocytes Count 0.170 X10^3/uL (0.0-0.0); Mean Corp Hgb Conc 32.0 g/dL (32-36); Mean Corpuscular Volume 88.7 fL (81-99); Mean Platelet Vol. 12.9 fl (6.2-12.0); NRBC Flagged by Analyzer 0 % (0-5); POSITIVE DIFFERENTIAL YES; Platelet Count 340 K/mm3 (150-450); RBC Distribution Width CV 14.6 % (11.6-14.6); RBC Distribution Width SD 46.5 fl (35.1-43.9); Red Blood Count 3.91 M/mm3 (4.2-5.4); White Blood Count 21.7 K/mm3 (4.4-11.0)
[2024-11-12 13:06] LABS: Differential Indicated SCAN CRITERIA MET
[2024-11-12 13:13] LABS: Prothrombin Time (Protime)PT. 15.8 SECONDS (11.7-14.9)
--- NOTE | 2024-11-12 13:20 | RAD_ITS ---
PROCEDURE: CHEST 1 VIEW (PORTABLE) 11/12/2024 REASON FOR EXAM: AMS TECHNIQUE: Frontal view of the chest. COMPARISON: Prior study dated January 10, 2024. FINDINGS: Hardware: EKG electrodes are seen. An endotracheal tube is seen with the tip at 2.9 cm proximal to the joseluis. Orogastric tube is seen with the tip in the stomach. Heart: Prior CABG. Lungs: Elevation of the right hemidiaphragm. Mild increased markings at the left lung base suggestive of left basilar atelectasis. Bones: Healed right rib fractures. Other: RAD/Chest 1 View (Portable) IMPRESSION: The tip of the endotracheal tube is at 2.9 cm proximal the joseluis. An orogastr ic tube is seen with the tip in the stomach. Increased markings at the left lung base suggestive of atelectasis. Reading Location: [place] [id number]
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
[2024-11-12 13:23] LABS: Differential Comment SCANNED
[2024-11-12] MEDS: Propofol 10MG/Ml 1,000 MG/100 ML Bottle 5.6 MG CONT INF (13:27)
[2024-11-12] MEDS: 0.9% Normal Saline (1000mL) 1,000 ML 999 ML IV ×3 (13:27→18:10)
--- NOTE | 2024-11-12 13:30 | ED.RN ---
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 BONITA ORDER INTUBATION.
[2024-11-12 13:31] LABS: Alcohol, Blood (Medical)-Serum < 10.1 mg/dL (<=10.0)
[2024-11-12 13:33] LABS: AST(SGOT) 51 U/L (<=31); Alanine Aminotransfer ALT/SGPT 18 U/L (<=34); Albumin, Serum 4.5 g/dL (3.5-5.0); Alkaline Phosphatase 136 U/L (35-104); Anion Gap 21 (5-15); BUN 42 mg/dL (4-19); BUN/Creat Ratio 16.2 RATIO (10-20); Calcium,Total 10.1 mg/dL (7.6-11.0); Carbon Dioxide 16.5 mmol/L (21.0-32.0); Chloride 104 mmol/L (98-108); Estimated Creatinine Clearance 29.73 ml/min (50-250); Globulin 3.7 g/dL (2.2-4.2); Glucose 120 mg/dL (70-99); Potassium 5.5 mmol/L (3.3-5.1)
--- NOTE | 2024-11-12 13:34 | CT_ITS ---
PROCEDURE: BRAIN/HEAD WITHOUT CONTRAST 11/12/2024 REASON FOR EXAM: AMS, TRAUMA Initial encounter TECHNIQUE: BRAIN/HEAD WITHOUT CONTRAST Coronal and Sagittal reconstruction series were provided. One or more dose reduction techniques were used (e.g., Automated exposure control, adjustment of the mA and/or kV according to patient size, use of iterative reconstruction technique. RADIATION DOSE SUMMARY: CTDlvol: 44.99, 32.54 and 20.02 mGy DLP: 2125.52 mGycm COMPARISON: CT brain of January 09, 2024 FINDINGS: Brain: No intra-axial or extra-axial hemorrhage or fluid collection. No mass, mass effect or midline shift. Midline structures are unremarkable. Mildly prominent ventricles and sulci indicating age related involution. Periventricular and deep white hypodensity suggesting chronic small-vessel ischemic damage Sinuses/Mastoids: Predominantly clear Bones: Unremarkable CT/Brain/Head without Contrast IMPRESSION: No acute process is detected. Mild age-related changes as above Reading [facility]
--- NOTE | 2024-11-12 13:34 | CT_ITS ---
PROCEDURE: CHEST WITHOUT CONTRAST 11/12/2024 REASON FOR EXAM: CHEST WALL TRAUMA TECHNIQUE: Chest CT without contrast. Coronal and Sagittal reconstruction series were provided. One or more dose reduction techniques were used (e.g., Automated exposure control, adjustment of the mA and/or kV according to patient size, use of iterative reconstruction technique RADIATION DOSE SUMMARY: CTDlvol: 20.02 mGy DLP: 600.13 mGycm COMPARISON: Prior chest radiograph done earlier in the day and prior CT scan dated January 18, 2024. FINDINGS: Hardware: Endotracheal tube and orogastric tube are seen. Lymph nodes: No suspicious lymph nodes are seen. Heart and Vasculature: Coronary artery calcification. Prior CABG. Atherosclerotic calcifications of the thoracic aorta. Thoracic aorta and pulmonary arteries have normal contours; noncontrast technique limits evaluation. Coronary Artery Calcifications: Present Lungs and Airways: Findings in keeping with chronic interstitial scarring. This has progressed as compared to prior study. Pleura: No pleural effusion. Upper Abdomen: Unremarkable Bones: Degenerative changes of the thoracic spine. CT/Chest without Contrast IMPRESSION: Coronary artery calcification (CAC) is is present Chronic interstitial scarring. No acute abnormality is seen. Reading Location: [place] [address]
--- NOTE | 2024-11-12 13:34 | CT_ITS ---
PROCEDURE: SPINE CERVICAL WITHOUT CONTRAS 11/12/2024 REASON FOR EXAM: TRAUMA TECHNIQUE: SPINE CERVICAL WITHOUT CONTRAS Coronal and Sagittal reconstruction series were provided. CONTRAST: None One or more dose reduction techniques were used (e.g., Automated exposure control, adjustment of the mA and/or kV according to patient size, use of iterative reconstruction technique RADIATION DOSE SUMMARY: CTDlvol: 32.54 mGy DLP: 692.72 mGycm COMPARISON: None FINDINGS: Alignment: Loss of the normal cervical lordosis. Vertebrae: No fracture is seen. Soft Tissues: Orogastric tube and ET tube seen in position. Other: Infiltrates seen in both upper lobes. C1-2: Unremarkable C2-3: Unremarkable C3-4: Unremarkable C4-5: Unremarkable C5-6: Unremarkable C6-7: Unremarkable C7-T1: Unremarkable CT/Spine Cervical without Contras IMPRESSION: Straightening of the normal cervical lordosis. Infiltrates in both upper lobes. Orogastric tube and ET tube in good position. Reading Location: [place] [address]
--- NOTE | 2024-11-12 13:40 | RAD_ITS ---
PROCEDURE: PELVIS 1 OR 2 VIEWS 11/12/2024 REASON FOR EXAM: FALL TECHNIQUE: PELVIS 1 OR 2 VIEWS COMPARISON: None FINDINGS: Hardware: Status post right total hip replacement. Bones: No fracture. Joints: Mild degree of joint space narrowing of the left hip joint. soft tissues: Calcified pelvic phleboliths. Other: RAD/Pelvis 1 or 2 Views IMPRESSION: Status post right total hip replacement. There is good alignment. No acute fr acture is seen. Reading Location: [place] [address]
--- NOTE | 2024-11-12 13:40 | ED.RN ---
PT CAME IN UNRESPONSIVE BY EMS. PT FOUND SITTING ON HER BASEMENT FLOOR ONLY RESPONSIVE TO PAIN. PT BROUGHT IN BY EMS AFTER A RECENT ANKLE SURGERY. UNKNOWN IF SHE TOOK PAIN MEDS. PUPILS ARE NOT PINPOINT. PT DECLINED AND WAS UNABLE TO PROTECT HER AIRWAY AFTER ARRIVING ON 2L NC @ 92%. RESPIRATORY WAS AT THE BEDSIDE WITH GRUNTING, SHAKING, AND CLENCHING DOWN OF THE JAW. DECISION WAS MADE TO PERFORM RAPID INTUBATION PERFORMED BY DR MESA. OG PLACED BY DR MESA. 3X IV ACCESS BY KIM SRIVASTAVA. PT HAD CONFIRMED XRAY FOR INTUBATION AND TAKEN TO CT STAT TO RULE OUT BLEED. VENT SETTING AND VS WILL BE OBTAINED UPON RETURN OF PT.
[2024-11-12 14:06] LABS: CPK Total, Creatine Kinase 491 U/L (24-195)
--- NOTE | 2024-11-12 14:21 | HP.PCM.HOS_ITS ---
[facility] - General General Date of Service: 11/12/24 Chief Complaint: Altered mental status with tachypnea HPI Narrative CONCEPCION CR, is a 44 F who presented to [facility] ED on 11/12/2024 with altered mental status and tachypnea. Patient previously had a prolonged hospitalization here in December for acute respiratory failure secondary to pneumonia with concern for ARDS. She notably was intubated for 6 days but was able to be extubated without issue. Prior to that hospitalization, she had previously required tracheostomy placement for a prolonged hospitalization for acute respiratory failure and had since been decannulated. Medical history is significant for HFpEF, remote DVT/PE, pulmonary hypertension, seizures, class II obesity, borderline personality disorder and fibromyalgia. She lives at home with herself. Her family called for a welfare check today as they had not heard from her. When EMS arrived they found that she was confused and minimally responsive. On arrival to the ED she was tachypneic and appeared to be in impending respiratory failure, so she was intubated by ED physician. CT chest postintubation showed progression of chronic interstitial scarring but no acute abnormalities noted. CT brain and C-spine were unremarkable. Pelvic x-ray showed the patient was status post right total hip replacement with good alignment and no other issues. Shortly after intubation, ABG showed pH 7.27, PO2 156, pCO2 38. Lab notable for WBC count 21, sodium 141, potassium 5.5, chloride 104, bicarb 16, creatinine 2.57 menses baseline around 0.9), BUN 42, lactate 1.7, CPK 491. Alcohol level negative. UA and urine drug screen were pending. Given all these things, hospitalist was contacted for admission. I saw the patient at bedside in the ED. Patient was sedated and intubated, not following commands. There is no family present at bedside at this time. [facility], patient was recently hospitalized at [facility] in [place] from 10/15-10/20. Presented there with fall with left ankle fracture. S/p ORIF of trimalleolar left lower leg fracture with syndesmotic left ankle repair on 10/15. She was started on Eliquis for DVT prophylaxis postoperatively. Notably home Lasix was initially held then due to worsening creatinine and creatinine improved to baseline 0.77 by 10/18. Lasix was resumed but patient then had low blood pressure requiring IVF, so Lasix was discontinued on discharge. She also notably was requiring 2 L nasal cannula at rest and overnight during the hospitalization. She ultimately was discharged to SNF in stable condition on 10/20. Will be admitted to the ICU here for further management. [facility] Medical History Abnormal EKG CKD stage 3b, GFR 30-44 ml/min Anxiety Depression Kidney stones Kidney disease GERD (gastroesophageal reflux disease) Asthma Congestive heart failure (CHF) CHF (congestive heart failure) TIA (transient ischemic attack) (~2001) History of stroke (~2001) Non-rheumatic tricuspid valve insufficiency DDD (degenerative disc disease) History of bicuspid aortic valve Essential hypertension History of DVT of lower extremity History of pulmonary embolus (PE) Colitis Cough Chest pain Thrush Normochromic normocytic anemia Borderline personality disorder Pulmonary hypertension Seizure disorder ARDS (adult respiratory distress syndrome) Acute respiratory failure with hypoxia Hematemesis Leiomyosarcoma Syringomyelia Migraine Exercise-induced asthma Arthritis Anxiety disorder Fibromyalgia AI (aortic insufficiency) Home Medications Medication Instructions Recorded Last Taken Type medroxyprogesterone 150 mg/mL 150 mg IM .[id number] diane h control 03/15/16 3 Weeks Ago History intramuscular syringe ~06/19/20 albuterol sulfate 90 mcg/actuation 1 puff inhalation Q 4H PRN Sob &/Or 10/02/16 01/06/24 History aerosol inhaler Wheezing albuterol sulfate 2.5 mg/3 mL 2.5 mg (3 mL) inhalation Q4H PRN 04/15/19 01/06/24 Rx (0.083 %) solution for nebulization breathing #25 vial s fluoxetine 40 mg capsule 40 mg PO DAILY DEPRESSION 01/06/24 History oxaprozin 600 mg tablet 600 mg PO BID PRN pain 07/1001/06/24 History lisinopril 30 mg tablet 30 mg PO DAILY blood pressur e 11/06/23 01/06/24 History montelukast 10 mg tablet 10 mg PO DAILY allergies 01/06/24 History ranolazine 500 mg tablet,extended 500 mg PO BID chest pain 11/06/23 01/06/24 History release,12 hr atorvastatin 20 mg tablet 20 mg PO DAILY cholesterol 0 12/29/23 01/06/24 History pregabalin 300 mg capsule 300 mg PO Q12H nerve pain 01/06/24 History ferrous gluconate 324 mg (38 mg 324 mg PO DAILY #30 ta bs 01/01/24 01/06/24 Rx iron) tablet budesonide-formoterol HFA 160 2 puff inhalation DAILY 01/06/24 01/06/24 History mcg-4.5 mcg/actuation aerosol inhaler (Symbicort) fluoxetine 20 mg tablet 20 mg PO DAILY 01/06/2412/24 History omeprazole 20 mg capsule,delayed 20 mg PO DAILY 01/06/24 History release tizanidine 4 mg tablet 4 mg PO TID PRN muscle spast icity 01/14/24 Unknown History baclofen 10 mg tablet 10 mg PO TID PRN muscle spas m 01/16/24 Unknown History apixaban 5 mg (74 tabs) tablets in 5 mg PO BID #74 tab s 01/19/24 Unknown Rx a dose pack (Eliquis DVT-PE Treat
--- NOTE | 2024-11-12 14:21 | PCM.HP.STD ---
[facility] - General General Date of Service: 11/12/24 Chief Complaint: Altered mental status with tachypnea HPI Narrative CONCEPCION CR, is a 44 F who presented to [facility] ED on 11/12/2024 with altered mental status and tachypnea. Patient previously had a prolonged hospitalization here in December for acute respiratory failure secondary to pneumonia with concern for ARDS. She notably was intubated for 6 days but was able to be extubated without issue. Prior to that hospitalization, she had previously required tracheostomy placement for a prolonged hospitalization for acute respiratory failure and had since been decannulated. Medical history is significant for HFpEF, remote DVT/PE, pulmonary hypertension, seizures, class II obesity, borderline personality disorder and fibromyalgia. She lives at home with herself. Her family called for a welfare check today as they had not heard from her. When EMS arrived they found that she was confused and minimally responsive. On arrival to the ED she was tachypneic and appeared to be in impending respiratory failure, so she was intubated by ED physician. CT chest postintubation showed progression of chronic interstitial scarring but no acute abnormalities noted. CT brain and C-spine were unremarkable. Pelvic x-ray showed the patient was status post right total hip replacement with good alignment and no other issues. Shortly after intubation, ABG showed pH 7.27, PO2 156, pCO2 38. Lab notable for WBC count 21, sodium 141, potassium 5.5, chloride 104, bicarb 16, creatinine 2.57 menses baseline around 0.9), BUN 42, lactate 1.7, CPK 491. Alcohol level negative. UA and urine drug screen were pending. Given all these things, hospitalist was contacted for admission. I saw the patient at bedside in the ED. Patient was sedated and intubated, not following commands. There is no family present at bedside at this time. [facility], patient was recently hospitalized at [facility] in [place] from 10/15-10/20. Presented there with fall with left ankle fracture. S/p ORIF of trimalleolar left lower leg fracture with syndesmotic left ankle repair on 10/15. She was started on Eliquis for DVT prophylaxis postoperatively. Notably home Lasix was initially held then due to worsening creatinine and creatinine improved to baseline 0.77 by 10/18. Lasix was resumed but patient then had low blood pressure requiring IVF, so Lasix was discontinued on discharge. She also notably was requiring 2 L nasal cannula at rest and overnight during the hospitalization. She ultimately was discharged to SNF in stable condition on 10/20. Will be admitted to the ICU here for further management. [facility] Medical History Abnormal EKG CKD stage 3b, GFR 30-44 ml/min Anxiety Depression Kidney stones Kidney disease GERD (gastroesophageal reflux disease) Asthma Congestive heart failure (CHF) CHF (congestive heart failure) TIA (transient ischemic attack) (~2001) History of stroke (~2001) Non-rheumatic tricuspid valve insufficiency DDD (degenerative disc disease) History of bicuspid aortic valve Essential hypertension History of DVT of lower extremity History of pulmonary embolus (PE) Colitis Cough Chest pain Thrush Normochromic normocytic anemia Borderline personality disorder Pulmonary hypertension Seizure disorder ARDS (adult respiratory distress syndrome) Acute respiratory failure with hypoxia Hematemesis Leiomyosarcoma Syringomyelia Migraine Exercise-induced asthma Arthritis Anxiety disorder Fibromyalgia AI (aortic insufficiency) Home Medications Medication Instructions Recorded Last Taken Type medroxyprogesterone 150 mg/mL 150 mg IM .[id number] control 03/15/16 3 Weeks Ago History intramuscular syringe ~06/19/20 albuterol sulfate 90 mcg/actuation 1 puff inhalation Q4H PRN Sob &/Or 10/02/16 01/06/24 History aerosol inhaler Wheezing albuterol sulfate 2.5 mg/3 mL 2.5 mg (3 mL) inhalation Q4H PRN 04/15/19 01/06/24 Rx (0.083 %) solution for nebulization breathing #25 vials fluoxetine 40 mg capsule 40 mg PO DAILY DEPRESSION 07/10/20 01/06/24 History oxaprozin 600 mg tablet 600 mg PO BID PRN pain 07/10/20 01/06/24 History lisinopril 30 mg tablet 30 mg PO DAILY blood pressure 11/06/23 01/06/24 History montelukast 10 mg tablet 10 mg PO DAILY allergies 11/06/23 01/06/24 History ranolazine 500 mg tablet,extended 500 mg PO BID chest pain 11/06/23 01/06/24 History release,12 hr atorvastatin 20 mg tablet 20 mg PO DAILY cholesterol 12/29/23 01/06/24 History pregabalin 300 mg capsule 300 mg PO Q12H nerve pain 12/29/23 01/06/24 History ferrous gluconate 324 mg (38 mg 324 mg PO DAILY #30 tabs 01/01/24 01/06/24 Rx iron) tablet budesonide-formoterol HFA 160 2 puff inhalation DAILY 01/06/24 01/06/24 History mcg-4.5 mcg/actuation aerosol inhaler (Symbicort) fluoxetine 20 mg tablet 20 mg PO DAILY 01/06/24 01/06/24 History omeprazole 20 mg capsule,delayed 20 mg PO DAILY 01/06/24 01/06/24 History release tizanidine 4 mg tablet 4 mg PO TID PRN muscle spasticity 01/14/24 Unknown History baclofen 10 mg tablet 10 mg PO TID PRN muscle spasm 01/16/24 Unknown History apixaban 5 mg (74 tabs) tablets in 5 mg PO BID #74 tabs 01/19/24 Unknown Rx a dose pack (Page365 DVT-PE Treat 30D Start) metoprolol tartrate 25 mg tablet 25 mg PO BID #60 tabs 01/19/24 Unknown Rx Allergy/AdvReac Type Severity Reaction Status Date / Time amitriptyline Allergy Other Verified 08/02/24 10:13 amoxicillin (Amoxicillin) Allergy Rash Verified 08/02/24 10:13 erythromycin base Allergy Rash Verified 08/02/24 10:13 (Erythromycin Base) hydroxyzine Allergy Rash Verified 08/02/24 10:13 levofloxacin (From Levaquin) Allergy Swelling Verified 08/02/24 10:13 milnacipran Allergy Other Verified 08/02/24 10:13 milnacipran HCl (From Allergy Other Verified 08/02/24 10:13 Savella) celecoxib (From Celebrex) AdvReac Other Verified 08/02/24 10:13 diphenhydramine HCl (From AdvReac muscle Verified 08/02/24 10:13 Benadryl) spasms duloxetine HCl (From AdvReac Other Verified 08/02/24 10:13 Cymbalta) meloxicam AdvReac Swelling Verified 08/02/24 10:13 of legs/chest pain Family History Mother Cancer, Onset Age: 36 Breast CVA (cerebral vascular accident) CAD (coronary artery disease), Onset Age: 46 Myocardial infarction x2 Grandmother CAD (coronary artery disease) COPD (chronic obstructive pulmonary disease) Diabetes Surgical History History of right hip replacement History of adenoidectomy History of bilateral knee replacement History of left heart catheterization (LHC) (~01/31/17) History of atrial septal defect repair (~12/04/00) H/O aortic valve repair (~12/04/00) Social History Smoking Status: Current every day smoker tobacco type: cigarettes alcohol intake: current details: occasional substance use type: does not use ROS Review of Systems ROS Unobtainable: due to endotracheal tube Vital Signs Vital Signs Vital Signs: 11/12/24 12:36 11/12/24 12:41 11/12/24 12:52 Temperature 97.9 F Temperature Source Temporal Pulse Rate 88 Respiratory Rate 16 Respiratory Effort Respiratory Pattern Kussmaul Blood Pressure 132/97 H Blood Pressure Mean 108 Pulse Ox 92 92 Oxygen Delivery Method Room Air Nasal Cannula Oxygen Flow Rate (L/min) 2 Fraction of Inspired Oxygen (FIO2) 11/12/24 13:06 11/12/24 13:14 11/12/24 13:44 Temperature Temperature Source Pulse Rate 78 Respiratory Rate 16 Respiratory Effort Labored Head Bobbing Respiratory Pattern Kussmaul Blood Pressure Blood Pressure Mean Pulse Ox 90 Oxygen Delivery Method Ambu-Bag Mechanical Ventilator Oxygen Flow Rate (L/min) Fraction of Inspired Oxygen (FIO2) 100 Weight Weight: 93.5 kg Body Mass Index (BMI) 36.5 Physical Exam Const Constitutional Narrative: Intubated and sedated, not following commands. Class II obesity. HEENT normocephalic and head/scalp atraumatic HEENT Narrative: ET tube in place. Mouth: oral and palatal mucosa normal Neck supple Resp normal respiratory effort and no use of accessory muscles Resp Narrative: Mildly diminished breath sounds bilaterally throughout with crackles noted in bilateral lung bases. No wheezing noted. Cardio regular rate, regular rhythm and no murmurs GI normal to inspection, nondistended, normoactive bowel sounds Extremity normal to inspection Results Lab / Micro Data 11/12/24 12:51 11/12/24 12:51 Labs: Laboratory Results - last 24 hr 11/12/24 12:51: WBC 21.7 H, RBC 3.91 L, Hgb 11.1 L, Hct 34.7 L, MCV 88.7, MCH 28.4, MCHC 32.0, RDW Std Deviation 46.5 H, RDW Coeff of Beto 14.6, Plt Count 340, MPV 12.9 H, Immature Gran % (Auto) 0.800, Neut % (Auto) 87.8 H, Lymph % (Auto) 4.1 L, Bergen % (Auto) 7.1, Eos % (Auto) 0.0, Baso % (Auto) 0.2, Absolute Neuts (auto) 19.0 H, Absolute Lymphs (auto) 0.88, Nucleated RBC % 0, Differential Comment SCANNED, PT 15.8 H, INR 1.2, Sodium 141, Potassium 5.5 H, Chloride 104, Carbon Dioxide 16.5 L, Anion Gap 21 H, BUN 42 H, Creatinine 2.57 H, Estim Creat Clear Calc 29.73 L, Est GFR (MDRD) Non-Af 23 L, BUN/Creatinine Ratio 16.2, Glucose 120 H, Calcium 10.1, Total Bilirubin 0.37, AST 51 H, ALT 18, Alkaline Phosphatase 136 H, Total Creatine Kinase 491 H, Total Protein 8.2, Albumin 4.5, Globulin 3.7, Albumin/Globulin Ratio 1.2, Ethyl Alcohol < 10.1 11/12/24 13:05: Lactic Acid 1.7 Imaging Radiology Impression Chest X-Ray 11/12/24 13:20 IMPRESSION: The tip of the endotracheal tube is at 2.9 cm proximal the joseluis. An orogastric tube is seen with the tip in the stomach. Increased markings at the left lung base suggestive of atelectasis. Reading Location: [facility] 11/12/24 13:34 IMPRESSION: No acute process is detected. Mild age-related changes as above Reading Location: [facility] Cervical Spine CT 11/12/24 13:34 IMPRESSION: Straightening of the normal cervical lordosis. Infiltrates in both upper lobes. Orogastric tube and ET tube in good position. Reading Location: [facility] 11/12/24 13:34 IMPRESSION: Coronary artery calcification (CAC) is is present Chronic interstitial scarring. No acute abnormality is seen. Reading Location: [facility] Pelvis X-Ray 11/12/24 13:40 IMPRESSION: Status post right total hip replacement. There is good alignment. No acute fracture is seen. Reading Location: [facility] Assessment & Plan Assessment/Plan (1) Acute respiratory failure: (2) Acute metabolic encephalopathy: (3) ISA (acute kidney injury): PLAN: Plan Patient is a 44-year-old female who presented to [facility] ED on 11/12/2024 with altered mental status and tachypnea. 1. Acute on chronic hypoxic respiratory failure, history of respiratory failure of unclear cause requiring tracheostomy placement with subsequent removal with chronic fibrotic changes – Admit under patient status to ICU. Ice Cream Server consulted. Presented with altered mentation and tachypnea with impending respiratory failure. Emergently intubated in the ED. had recent hospitalization at [facility] in late September and was on 2 L continuously during the day and at night. See HPI and discharge summary from December 2023 for further details of history. CT chest without contrast here shows progression of chronic interstitial scarring but no other acute abnormalities noted. Is on Eliquis for DVT prophylaxis for recent left ankle procedure as noted below, low concern for PE. WBC count elevated at 21. Given her history, will empirically treat with broad-spectrum IV antibiotics and IV steroids. Follow-up infectious workup. Continue home long-acting inhalers and Singulair. Appreciate rafter cutting machine operator recommendations. 2. Acute metabolic encephalopathy – Ice Cream Server consulted as above. Presented from home with altered mentation of unclear cause. CT brain and C-spine unremarkable. Polypharmacy in setting of ISA as below may have been contributing. UA and urine drug screen pending at this time. Intubated and sedated as above. Appreciate rafter cutting machine operator recommendations. 3. ISA with mild hyperkalemia and metabolic acidosis, mild CPK elevation – Creatinine 2.57, potassium 5.5, bicarb 16 on admit. Baseline creatinine around 0.9. Lactic acid normal. CPK level 491. Seems most likely prerenal etiology but will order urine studies and renal ultrasound for further evaluation. Given 1 L of IV fluids in the ED. Blood pressure has been high to the 170s over 110s. Will hold on further IV fluids for now. Follow-up a.m. BMP and monitor urine output. 4. Recent left ankle procedure with acute on chronic debility – PT/OT/case management consulted. See HPI for further details. In short, patient was recently hospitalized in late September at [facility] in [place] for a fall with left ankle fracture. Had ORIF of the left ankle done. Ultimately she was discharged to SNF on 10/20. Notably she was started on Eliquis at 5 mg twice daily for DVT prophylaxis postoperatively; was started at this dose due to her history of DVT/PE as below. Appreciate further therapy recommendations here. Chronic medical conditions: – Class II obesity: BMI 36 on admit. Complicates hospital course, care and prognosis. – History of DVT/PE, history of HFpEF, hypertension, hyperlipidemia, history of bicuspid aortic valve s/p aortic valve repair: Hypertensive to the 170s systolic on admit. Seems dry on exam, low concern for CHF exacerbation. Continue Eliquis, statin, ranolazine and Lopressor. Hold home lisinopril for now given ISA as above. – Anxiety/depression/fibromyalgia: Continue home fluoxetine and pregabalin. – GERD: Continue home PPI. – History of right total hip replacement DVT prophylaxis: Not indicated, on Eliquis CODE STATUS: Full code, verified Expected disposition: TBD Total clinical time spent by myself addressing the patient's medical issues, reviewing all the data, and collaborating with patient's care team: 75 minutes. Charges/Coding Visit Charges Inpatient E&M: 28249 Init Hosp L3
[2024-11-12 14:26] LABS: Allen Test Positive; Base Excess -9 mmol/L (-2 to +2); FI02 40.0; PEEP 5; PO2 156 mmHG (75-100); RR 14; SITE R Radial; SO2 99 % (95-99)
[2024-11-12 14:53] LABS: Barbiturate Urine NEGATIVE (< 200 ng/mL); Benzodiazepine Urine PRESUMPTIVE POSITIVE (< 200 ng/mL); PCP Urine NEGATIVE (< 25 ng/mL); THC Urine PRESUMPTIVE POSITIVE (< 50 ng/mL)
[2024-11-12] MEDS: Ceftriaxone 2 GM in 0.9% Normal Saline (50mL MB+) 50 ML IV (15:27)
[2024-11-12 15:32] LABS: Mucous, Urine 0 SEEN /hpf (<or=2+)
[2024-11-12 15:49] LABS: Triglycerides 520 mg/dL
[2024-11-12 16:08] LABS: Color, Urine Yellow (Yellow); Glucose, Dipstick Normal (Normal); Ketone-Dipstick 5 mg/dl (Negative); Leukocyte Esterase-Dipstick Negative /ul (Negative); Nitrite-Dipstick Negative (Negative); Occult Blood-Urine 150 /ul (Negative); Protein-Dipstick 30 mg/dl (Negative); Specific Gravity, Urine 1.025 (1.002-1.030); Urine Bilirubin Dipstick Negative (Negative)
[2024-11-12] MEDS: Vancomycin HCl 1,500 MG in 0.9% Normal Saline (500mL Bag) 500 ML 250 MG IV (16:20)
[2024-11-12 17:16] LABS: Red Blood Cells-Urine 25-50 SEEN /hpf (0-5)
[2024-11-12 17:17] LABS: Squamous Epithelial Cells - UA 0-5 SEEN /hpf (5-10)
--- NOTE | 2024-11-12 17:32 | US_ITS ---
EXAM: US Retroperitoneal Limited, Renal CLINICAL INDICATION: EVAL FOR POSTOBSTRUCTIVE ISA TECHNIQUE: Real-time limited ultrasound of the retroperitoneum with image documentation. COMPARISON: No relevant prior studies available. FINDINGS: RIGHT KIDNEY: 0.5 mm right renal pelvic calculus. No hydronephrosis. The right kidney measures 9.7 x 5.6 x 4.9 cm. LEFT KIDNEY: Unremarkable. No stones. No hydronephrosis. The left kidney measures 10.1 x 5.5 x 4.9 cm. BLADDER: Urinary bladder is decompressed by the Nelson catheter. US/Kidney and Bladder IMPRESSION: Right nephrolithiasis without hydronephrosis. Reading Location: [id number]
--- NOTE | 2024-11-12 17:51 | PCM.RX.CS ---
Consult Antibiotic Management Pharmacy has been consulted to manage selected antibiotic: Vancomycin Type of Intervention Type of Consult: New start Suspected Infection Suspected Infection: Pneumonia Prior Doses of Antibiotics Prior Doses of Antibiotics Received/Current Regimen: Vancomycin 1500 mg IV x 1 given 11/12/24 @ 1620 Labs Labs: Sodium 141 mmol/L (133-145) 11/12/24 12:51 Potassium 5.5 mmol/L (3.3-5.1) H 11/12/24 12:51 Chloride 104 mmol/L (98-108) 11/12/24 12:51 Carbon Dioxide 16.5 mmol/L (21.0-32.0) L 11/12/24 12:51 Anion Gap 21 (5-15) H 11/12/24 12:51 BUN 42 mg/dL (4-19) H 11/12/24 12:51 Creatinine 2.57 mg/dL (0.70-1.20) H 11/12/24 12:51 Est GFR (MDRD) Non-Af 23 (>60) L 11/12/24 12:51 BUN/Creatinine Ratio 16.2 RATIO (10-20) 11/12/24 12:51 Glucose 120 mg/dL (70-99) H 11/12/24 12:51 Dosing Weight Weight used for dosin kg Estimated Creatinine Clearance Estimated Creatinine Clearance: ~ 30 Goal Trough Goal Trough: 15-20 mcg/mL Pharmacy Plan for Drug Dosing Pharmacy Plan for Drug Dosing: Vancomycin 1500 mg IV x 1, followed by 1250 mg Q24H Pharmacy Service will continue to monitor and adjust dosing as required. Follow-Up Labs Follow-Up Labs: Trough: Vancomycin Date/Time Labs Ordered Labs to be done on [date and time ordered]: 11/14/24 @ 1530
[2024-11-12] MEDS: Albuterol 2.5 MG/3 ML VIAL.NEB. INHALATION (18:55)
[2024-11-12] MEDS: fentaNYL drip 100 ML 5 MCG CONT INF (19:51)
[2024-11-12] MEDS: APIXABAN 5 MG TABLET PO (21:49)
[2024-11-12] MEDS: Cefepime HCl 1 GM in 0.9% Normal Saline (50mL MB+) 50 ML IV (21:50)
[2024-11-13] VITALS (44 sets, daily range): BP systolic 61–129; BP diastolic 44–97; PULSE 66–78; RESP 12–22; TEMP 36.9–37.9; O2SAT 93–100; BMI 37.8
[2024-11-13] MEDS: Propofol 10MG/Ml 1,000 MG/100 ML Bottle 8.4 MG CONT INF (00:37)
[2024-11-13 03:59] LABS: Hematocrit 29.6 % (37-47); Hemoglobin 9.1 g/dL (12.0-15.0); Mean Corp Hgb Conc 30.7 g/dL (32-36); Mean Corpuscular Volume 90.2 fL (81-99); Mean Platelet Vol. 12.9 fl (6.2-12.0); Platelet Count 273 K/mm3 (150-450); RBC Distribution Width CV 14.9 % (11.6-14.6); RBC Distribution Width SD 49.3 fl (35.1-43.9); Red Blood Count 3.28 M/mm3 (4.2-5.4); White Blood Count 20.4 K/mm3 (4.4-11.0)
[2024-11-13 04:23] LABS: AST(SGOT) 49 U/L (<=31); Alanine Aminotransfer ALT/SGPT 25 U/L (<=34); Albumin, Serum 3.8 g/dL (3.5-5.0); Alkaline Phosphatase 105 U/L (35-104); Anion Gap 19 (5-15); BUN 36 mg/dL (4-19); BUN/Creat Ratio 19.4 RATIO (10-20); Calcium,Total 9.2 mg/dL (7.6-11.0); Carbon Dioxide 15.1 mmol/L (21.0-32.0); Chloride 108 mmol/L (98-108); Estimated Creatinine Clearance 40.62 ml/min (50-250); Globulin 3.0 g/dL (2.2-4.2); Glucose 141 mg/dL (70-99); Potassium 4.5 mmol/L (3.3-5.1)
[2024-11-13] MEDS: fentaNYL drip 100 ML 10 MCG CONT INF (04:51)
[2024-11-13] MEDS: TITRATION PARAMETER CHANGE 1 EACH IV (04:58)
[2024-11-13] MEDS: dexMEDEtomidine 400 MCG in 0.9% Normal Saline (100mL Bag) 96 ML 12.1 MCG CONT INF (06:00)
[2024-11-13] MEDS: Norepinephrine 8 MG in 0.9% Normal Saline (250mL Bag) 242 ML 9.4 MG CONT INF (06:00)
--- NOTE | 2024-11-13 06:00 | PCMCONS.TICU ---
HPI Consult Data Date of Consult: 11/13/24 HPI Narrative HPI Narrative: Ms. Patel is a 44 year-old female with chronic hypoxemic respiratory failure, ILD, chart diangosis of CHF, DVT on Eliquis, chart diagnosis of PH, seizure disorder, HTN, prior CVA, obesity, bicuspid aortic valve, aortic regurgitation, leiomyosarcoma, fibromyalgia, chronic anemia, and borderline personality disorder who presents with acute on chronic hypoxemic respiratory failure and altered mental status. She was hospitalized in 2023 with a pneumonia and suspected ARDS for which she had a prolonged ventilator course c/b Tracheostomy (decanulated since), and recently she was hospitalized in September for an ankle fracture. She was brought in today due to altered mentation, and in the ED at [place] was found to be acutely hypoxic and in respiratory distress requiring intubation and sedation. Laboratory data was remarkable for WBC 21K, Na 141, K 5.5, HCO3 16, and Cr 2.57. Chest imaging was remarkable for bilateral upper lobe fibrosis, and renal ultrasound was normal. She was started on IV antibiotics, and on my examinatinon, she remains intubated and sedated with now a vasopressor requirement. [facility] Medical History Abnormal EKG CKD stage 3b, GFR 30-44 ml/min Anxiety Depression Kidney stones Kidney disease GERD (gastroesophageal reflux disease) Asthma Congestive heart failure (CHF) CHF (congestive heart failure) TIA (transient ischemic attack) (~2001) History of stroke (~2001) Non-rheumatic tricuspid valve insufficiency DDD (degenerative disc disease) History of bicuspid aortic valve Essential hypertension History of DVT of lower extremity History of pulmonary embolus (PE) Colitis Cough Chest pain Thrush Normochromic normocytic anemia Borderline personality disorder Pulmonary hypertension Seizure disorder ARDS (adult respiratory distress syndrome) Acute respiratory failure with hypoxia Hematemesis Leiomyosarcoma Syringomyelia Migraine Exercise-induced asthma Arthritis Anxiety disorder Fibromyalgia AI (aortic insufficiency) Home Medications Medication Instructions Recorded Last Taken Type medroxyprogesterone 150 mg/mL 150 mg IM .[id number] control 03/15/16 3 Weeks Ago History intramuscular syringe ~06/19/20 albuterol sulfate 90 mcg/actuation 1 puff inhalation Q4H PRN Sob &/Or 10/02/16 01/06/24 History aerosol inhaler Wheezing albuterol sulfate 2.5 mg/3 mL 2.5 mg (3 mL) inhalation Q4H PRN 04/15/19 01/06/24 Rx (0.083 %) solution for nebulization breathing #25 vials fluoxetine 40 mg capsule 40 mg PO DAILY DEPRESSION 07/10/20 01/06/24 History oxaprozin 600 mg tablet 600 mg PO BID PRN pain 07/10/20 01/06/24 History lisinopril 30 mg tablet 30 mg PO DAILY blood pressure 11/06/23 01/06/24 History montelukast 10 mg tablet 10 mg PO DAILY allergies 11/06/23 01/06/24 History ranolazine 500 mg tablet,extended 500 mg PO BID chest pain 11/06/23 01/06/24 History release,12 hr atorvastatin 20 mg tablet 20 mg PO DAILY cholesterol 12/29/23 01/06/24 History pregabalin 300 mg capsule 300 mg PO Q12H nerve pain 12/29/23 01/06/24 History ferrous gluconate 324 mg (38 mg 324 mg PO DAILY #30 tabs 01/01/24 01/06/24 Rx iron) tablet budesonide-formoterol HFA 160 2 puff inhalation DAILY 01/06/24 01/06/24 History mcg-4.5 mcg/actuation aerosol inhaler (Symbicort) fluoxetine 20 mg tablet 20 mg PO DAILY 01/06/24 01/06/24 History omeprazole 20 mg capsule,delayed 20 mg PO DAILY 01/06/24 01/06/24 History release tizanidine 4 mg tablet 4 mg PO TID PRN muscle spasticity 01/14/24 Unknown History baclofen 10 mg tablet 10 mg PO TID PRN muscle spasm 01/16/24 Unknown History apixaban 5 mg (74 tabs) tablets in 5 mg PO BID #74 tabs 01/19/24 Unknown Rx a dose pack ([employer] DVT-PE Treat 30D Start) metoprolol tartrate 25 mg tablet 25 mg PO BID #60 tabs 01/19/24 Unknown Rx Allergy/AdvReac Type Severity Reaction Status Date / Time amitriptyline Allergy Other Verified 08/02/24 10:13 amoxicillin (Amoxicillin) Allergy Rash Verified 08/02/24 10:13 erythromycin base Allergy Rash Verified 08/02/24 10:13 (Erythromycin Base) hydroxyzine Allergy Rash Verified 08/02/24 10:13 levofloxacin (From Levaquin) Allergy Swelling Verified 08/02/24 10:13 milnacipran Allergy Other Verified 08/02/24 10:13 milnacipran HCl (From Allergy Other Verified 08/02/24 10:13 Savella) celecoxib (From Celebrex) AdvReac Other Verified 08/02/24 10:13 diphenhydramine HCl (From AdvReac muscle Verified 08/02/24 10:13 Benadryl) spasms duloxetine HCl (From AdvReac Other Verified 08/02/24 10:13 Cymbalta) meloxicam AdvReac Swelling Verified 08/02/24 10:13 of legs/chest pain Family History Mother Cancer, Onset Age: 36 Breast CVA (cerebral vascular accident) CAD (coronary artery disease), Onset Age: 46 Myocardial infarction x2 Grandmother CAD (coronary artery disease) COPD (chronic obstructive pulmonary disease) Diabetes Surgical History History of right hip replacement History of adenoidectomy History of bilateral knee replacement History of left heart catheterization (LHC) (~01/31/17) History of atrial septal defect repair (~12/04/00) H/O aortic valve repair (~12/04/00) Social History Smoking Status: Current every day smoker tobacco type: cigarettes alcohol intake: current details: occasional substance use type: does not use ROS Review of Systems ROS Unobtainable: due to endotracheal tube Objective Data Objective Data Vital Signs: Vital Signs Last response Temperature 37.1 C 11/13/24 04:00 Temperature Source Temporal 11/13/24 04:00 Pulse Rate 69 11/13/24 05:00 Respiratory Rate 14 11/13/24 05:00 Respiratory Effort Mechanically Ventilated 11/13/24 05:03 Respiratory Depth Normal 11/13/24 05:03 Respiratory Pattern Tachypnea 11/13/24 05:03 Blood Pressure 61/44 L 11/13/24 05:00 Blood Pressure Mean 49 11/13/24 05:00 Blood Pressure Source Monitor 11/13/24 05:00 Blood Pressure Position Semi-Fowlers 11/13/24 05:00 Blood Pressure Location Left Arm 11/13/24 05:00 Pulse Ox 97 11/13/24 05:00 Oxygen Delivery Method Mechanical Ventilator 11/13/24 05:03 Oxygen Flow Rate (L/min) 2 11/12/24 12:52 Fraction of Inspired Oxygen (FIO2) 24 11/13/24 05:03 I&O: I&O Last 24 Hours 11/12/24 11/12/24 11/13/24 11:59 23:59 11:59 Intake Total 3779.48 / 3877.88 289.20 / 289.20 Output Total 150 / 150 Balance 3779.48 / 3727.88 139.20 / 139.20 I&O: Total Stay 11/12/24 12:35 thru 11/13/24 05:03 Intake Total 4068.68 Output Total 150 Balance 3918.68 Current Meds Ordered / Administered: Current meds ordered / Administered Generic Name Dose Route Start Last Admin Trade Name Freq PRN Reason Stop Dose Admin Acetaminophen 650 mg 11/12/24 17:32 Acetaminophen 325 Mg Tablet PO Q6H PRN PRN Pain 1-10 Or Fever>100.7 Albuterol/Ipratropium 3 ml 11/13/24 06:00 Ipratropium/Albuterol Sulfate 3 Ml Ampul.Neb INHALATION Q4H.RT SADE Apixaban 5 mg 11/12/24 22:00 11/12/24 21:49 Apixaban 5 Mg Tablet PO 5 mg BID SADE Administration Atorvastatin Calcium 20 mg 11/13/24 10:00 Atorvastatin Calcium 20 Mg Tablet PO DAILY SADE Fentanyl Citrate 50 mcg 11/12/24 13:20 Fentanyl 100 Mcg/2 Ml Ampul IV Q2H PRN PRN See dose instructions Fluoxetine HCl 40 mg 11/13/24 10:00 Fluoxetine Hcl 40 Mg Capsule PO DAILY SADE Fluoxetine HCl 20 mg 11/13/24 10:00 Fluoxetine 20 Mg Capsule PO DAILY SADE Hydralazine HCl 10 mg 11/12/24 17:32 Hydralazine 20 Mg/Ml Vial IV Q4H PRN PRN SBP GREATER THAN 170 Protocol Propofol 1,000 mg in 100 mls @ 5.814 mls/hr 11/12/24 13:20 11/13/24 05:00 Diprivan CONT INF 15 mcg/kg/min .Q12H SADE 8.7 mls/hr Titration Protocol 10 MCG/KG/MIN Vancomycin IV-PHARMACY TO DOSE 500 mls @ 250 mls/hr 11/12/24 17:32 1 each/ Sodium Chloride IV PRN PRN Rx to Dose Protocol Cefepime HCl 1 gm/ Sodium 50 mls @ 100 mls/hr 11/12/24 22:00 11/12/24 23:20 Chloride IV Infused Q24@2200 SADE Infusion Vancomycin HCl 1,250 mg/ 275 mls @ 167 mls/hr 11/13/24 16:00 Sodium Chloride IV Q24H SADE Fentanyl 100 mls @ 5 mls/hr 11/12/24 19:40 11/13/24 04:51 CONT INF 100 mcg/hr UD SADE 10 mls/hr Administration Protocol 50 MCG/HR Dexmedetomidine HCl 400 mcg/ 100 mls @ 12.113 mls/hr 11/13/24 05:45 Sodium Chloride CONT INF .Q8H16M SADE Protocol 0.5 MCG/KG/HR Norepinephrine Bitartrate 8 mg 250 mls @ 9.375 mls/hr 11/13/24 05:45 / Sodium Chloride CONT INF .[id number] SADE Protocol 5 MCG/MIN Methylprednisolone Sodium Succinate 40 mg 11/12/24 22:00 11/12/24 21:50 Methylprednisolone Sod Succ 40 Mg/Ml Vial IV 40 mg Q8 SADE Administration Metoprolol Tartrate 25 mg 11/12/24 22:00 11/12/24 21:50 Metoprolol Tartrate 25 Mg Tablet PO 25 mg BID SADE Administration Protocol Montelukast Sodium 10 mg 11/13/24 10:00 Montelukast 10 Mg Tablet PO DAILY [facility] Ondansetron HCl 4 mg 11/12/24 17:32 Ondansetron 4 Mg/2 Ml Vial IV Q8H PRN PRN NAUSEA/VOMITING Pantoprazole Sodium 20 mg 11/13/24 10:00 Pantoprazole Sodium 20 Mg Tablet PO DAILY [facility] Pregabalin 300 mg 11/12/24 22:00 11/12/24 21:49 Pregabalin 75 Mg Capsule PO 300 mg BID SADE Administration Ranolazine 500 mg 11/12/24 22:00 11/12/24 21:39 Ranolazine 500 Mg Tablet PO Not Given BID [facility] Sodium Chloride 10 - 40 ml 11/12/24 18:57 0.9% Saline Lock 10 Ml Syringe IV UD PRN SALINE FLUSH Vancomycin Protocol 1 lab 11/14/24 14:30 Vancomycin Trough/Random Due 11/14/24 16:30 DAILY [facility] Physical Exam Narrative GENERAL: INTUBATED AND SEDATED HEENT: PERRLA; EOMI; anicteric NECK: soft, supple, no XUAN; no JVP; no TM CV: RRR; -m/r/g RESP: CTAB; no wheezes, crackles or rhonchi ABD: soft, NT, ND, ABS x 4 EXT: WWP; no C/C/E NEURO: DEFERRED Lab / Micro Data 11/13/24 03:40 11/13/24 03:40 Labs: Laboratory Results - last 24 hr 11/12/24 12:51: WBC 21.7 H, RBC 3.91 L, Hgb 11.1 L, Hct 34.7 L, MCV 88.7, MCH 28.4, MCHC 32.0, RDW Std Deviation 46.5 H, RDW Coeff of Beto 14.6, Plt Count 340, MPV 12.9 H, Immature Gran % (Auto) 0.800, Neut % (Auto) 87.8 H, Lymph % (Auto) 4.1 L, [place] % (Auto) 7.1, Eos % (Auto) 0.0, Baso % (Auto) 0.2, Absolute Neuts (auto) 19.0 H, Absolute Lymphs (auto) 0.88, Nucleated RBC % 0, Differential Comment SCANNED, PT 15.8 H, INR 1.2, Sodium 141, Potassium 5.5 H, Chloride 104, Carbon Dioxide 16.5 L, Anion Gap 21 H, BUN 42 H, Creatinine 2.57 H, Estim Creat Clear Calc 29.73 L, Est GFR (MDRD) Non-Af 23 L, BUN/Creatinine Ratio 16.2, Glucose 120 H, Calcium 10.1, Total Bilirubin 0.37, AST 51 H, ALT 18, Alkaline Phosphatase 136 H, Total Creatine Kinase 491 H, Total Protein 8.2, Albumin 4.5, Globulin 3.7, Albumin/Globulin Ratio 1.2, Triglycerides 520 H, Ethyl Alcohol < 10.1 11/12/24 13:05: Lactic Acid 1.7 11/12/24 14:10: Urine Color Yellow, Urine Clarity Cloudy, Urine pH 5.0, Ur Specific [place] 1.025, Urine Protein 30 H, Urine Glucose (UA) Normal, Urine Ketones 5 H, Urine Occult Blood 150 H, Urine Nitrite Negative, Urine Bilirubin Negative, Urine Urobilinogen Normal, Ur Leukocyte Esterase Negative, Urine RBC 25-50 SEEN, Urine WBC 0-5 SEEN, Ur Squamous Epith Cells 0-5 SEEN, Urine Bacteria 2+, Hyaline Casts 0-5 SEEN, Urine Mucus 0 SEEN, Urine Opiates Screen NEGATIVE, U Buprenorphine Qual NEGATIVE, Ur Oxycodone Screen NEGATIVE, Urine Methadone Screen NEGATIVE, Urine Fentanyl Screen NEGATIVE, Ur Barbiturates Screen NEGATIVE, Ur Phencyclidine Scrn NEGATIVE, Ur Amphetamines Screen NEGATIVE, U Benzodiazepines Scrn PRESUMPTIVE POSITIVE, Urine Cocaine Screen NEGATIVE, U Cannabinoids Screen PRESUMPTIVE POSITIVE 11/13/24 03:40: WBC 20.4 H, RBC 3.28 L, Hgb 9.1 L, Hct 29.6 L, MCV 90.2, MCH 27.7, MCHC 30.7 L, RDW Std Deviation 49.3 H, RDW Coeff of Beto 14.9 H, Plt Count 273, MPV 12.9 H, Sodium 142, Potassium 4.5, Chloride 108, Carbon Dioxide 15.1 L, Anion Gap 19 H, BUN 36 H, Creatinine 1.88 H, Estim Creat Clear Calc 40.62 L, Est GFR (MDRD) Non-Af 33 L, BUN/Creatinine Ratio 19.4, Glucose 141 H, Calcium 9.2, Total Bilirubin 0.20, AST 49 H, ALT 25, Alkaline Phosphatase 105 H, Total Protein 6.8, Albumin 3.8, Globulin 3.0, Albumin/Globulin Ratio 1.3 Micro: Microbiology 11/12/24 19:37 Mucosa - Nose Respiratory Panel (PCR) - Final ABG Data ABG results: ABG 11/12/24 14:22 Specimen Type ART Sample Site R Radial pH 7.27 L Bicarbonate Actual 17.8 L Total CO2 19 Base Excess -9 L O2 Saturation 99 O2 % 40.0 ABG pCO2 38.9 ABG pO2 156 H Chris Test Positive Respiration Rate 14 O2 Delivery Device Adult Vent Vent Mode AC Tidal Volume 450.0 POC PEEP 5 Rhythm Strip Rhythm Strip: Sinus Tach Rate: 102 Ectopy: None Imaging Radiology Impression Chest X-Ray 11/12/24 13:20 IMPRESSION: The tip of the endotracheal tube is at 2.9 cm proximal the joseluis. An orogastric tube is seen with the tip in the stomach. Increased markings at the left lung base suggestive of atelectasis. Reading Location: [facility]--[address] 11/12/24 13:34 IMPRESSION: No acute process is detected. Mild age-related changes as above Reading Location: [facility] Cervical Spine CT 11/12/24 13:34 IMPRESSION: Straightening of the normal cervical lordosis. Infiltrates in both upper lobes. Orogastric tube and ET tube in good position. Reading Location: [facility]-[address] 11/12/24 13:34 IMPRESSION: Coronary artery calcification (CAC) is is present Chronic interstitial scarring. No acute abnormality is seen. Reading Location: [facility]-1 Pelvis X-Ray 11/12/24 13:40 IMPRESSION: Status post right total hip replacement. There is good alignment. No acute fracture is seen. Reading Location: [facility]- Renal Ultrasound 11/12/24 17:32 IMPRESSION: Right nephrolithiasis without hydronephrosis. Reading Location: [facility] Assessment and Plan . Assessment and plan: LINES Central Line vs. PICC requested DRIPS Fentanyl Propofol Levophed VENTILATOR AC/450/22/P5/246 ANTIBIOTICS AND STEROIDS Vancomycin 11/12 Cefepime 11/12 Solumedrol 11/12 ASSESSMENT 1. Acute on Chronic Hypoxemic Respiratory Failure 2. Altered Mental Status 3. Shock 4. Acute Kidney Injury 5. Hyperkalemia 6. Non-Anion Gap Metabolic Acidosis 7. Leukocytosis 8. Chart Diagnosis of Congestive Heart Failure 9. Chart Diagnosis of Pulmonary Hypertension 10. Bicuspid Aortic Valve s/p Repair 11. Prior Deep Vein Thrombosis on Eliquis 12. Interstitial Lung Disease Presumed Secondary to ARDS 13. Prior Cerebrovascular Accident 14. Hypertension 15. Obesity 16. Leiomyosarcoma 17. Seizure Disorder not on AEDs PLAN 1. Vent check made; RR increased; ABG pending 2. Fluids + vasopressors to maintain MAP 65; she will need a CVL vs. PICC - whichever comes first 3. Continue Broad ABx; cultures pending 4. No indication for IV steroids; recommend stopping 5. CT chest with no acute process; bilateral upper lobe fibrosis most likely secondary to ARDS 6. Cr trending down; baseline normal 7. K has normalized 8. Echo in AM + serial cardiac enzymes Eliquis/PPI Critical Care Time: 60 Minutes The entirety of this encounter was done via telemedicine with audio and visual. Consent was obtained for a telemedicine encounter. Ranulfo Ramsay MD Pulmonary and Critical Care Medicine
[2024-11-13] MEDS: Lactated Ringers 1,000 ML 100 ML IV ×2 (06:24→16:34)
--- NOTE | 2024-11-13 06:26 | ECHOCS_ITS ---
Reason For Study Reason For Study: PHTN Procedure This was a 2D Doppler, Color Flow transthoracic echocardiogram. Contrast injection was performed. Exam performed portable in ICU/CCU. Left Ventricle Normal LV size. LV apical thrombus cannot be excluded. The estimated ejection fraction is 35 %. Base of the LV is wiliam well. Rest of the LV is severely hypokinetic. Right Ventricle Normal RV size. Normal systolic function. Atria The left and right atria are normal. No doppler evidence for ASD. Mitral Valve There is no mitral valve stenosis. Trivial mitral valve insufficiency. Tricuspid Valve There is no tricuspid stenosis. Trivial tricuspid valve insufficiency. Pulmonary artery systolic pressure is 45 mmHg. Aortic Valve Trisinus/trileaflet aortic valve. There is no aortic stenosis. No aortic valve insufficiency. Pulmonic Valve There is no pulmonic valvular stenosis. No pulmonic valve insufficiency. Great Vessels Normal sized aortic root. Pericardium/Pleural No pericardial effusion. Medication Diluted definity 3ml given slow IV push to enhance endocardial definition. MMode/2D Measurements & Calculations LVIDd: 4.6 cm IVSd: 0.91 cm LVOT diam: 2.3 cm LVIDs: 2.9 cm LVPWd: 1.0 cm RVDd: 5.0 cm FS: 37.7 % LVOT area: 4.2 cm2 Ao root diam: 2.4 cm LAV(MOD-bp): 62.1 ml LVAd ap4: 32.8 cm2 LAV(MOD-bp) Indexed: 31.3 ml/m2 LVLd ap4: 7.8 cm LAV(MOD-sp2): 76.1 ml EDV(MOD-sp4): 111.9 ml LAV(MOD-sp4): 49.9 ml EDV(sp4-el): 117.1 ml LVAs ap4: 25.5 cm2 LVLs ap4: 7.3 cm ESV(MOD-sp4): 73.4 ml ESV(sp4-el): 76.0 ml EF(MOD-sp4): 34.4 % EF(sp4-el): 35.1 % SV(MOD-sp4): 38.5 ml SV(sp4-el): 41.1 ml LA A4 area: 18.5 cm2 SI(MOD-sp4): 19.4 ml/m2 LA dimension(2D): 4.1 cm RA A4 area: 8.7 cm2 TAPSE: 1.7 cm Time Measurements MV dec time: 0.12 sec Doppler Measurements & Calculations MV E max andrei: 99.5 cm/sec Lat Peak E' Andrei: 8.1 cm/sec Med Peak E' Andrei: 6.8 cm/sec MV A max andrei: 54.0 cm/sec E/E' lat: 12.2 E/E' med: 14.6 MV E/A: 1.8 MV dec slope: 811.7 cm/sec2 Ao V2 max: 158.3 cm/sec LV V1 max: 84.9 cm/sec Ao max P.0 mmHg LV V1 max P.9 mmHg Ao V2 mean: 109.2 cm/sec LV V1 mean P.7 mmHg Ao mean P.4 mmHg LV V1 mean: 62.0 cm/sec Ao V2 VTI: 34.6 cm LV V1 VTI: 18.8 cm AV (velocity ratio): 0.54 DANI(I,D): 2.3 cm2 DANI(V,D): 2.3 cm2 SV(LVOT): 79.2 ml PA V2 max: 104.4 cm/sec TR max andrei: 320.6 cm/sec TR max P.1 mmHg ECHO/Echo Complete W/ Contrast Interpretation Summary The estimated ejection fraction is 35 %. Base of the LV is wiliam well. Rest of the LV is severely hypokinetic LV apical thrombus cannot be excluded Trivial mitral valve insufficiency. Ordering Physician: Ranulfo Ramsay Referring Physician: Bill Dai Performed By: Amber Salmeron RDCS, RVT
[2024-11-13 07:04] LABS: Allen Test Positive; Base Excess -9 mmol/L (-2 to +2); FI02 24.0; PEEP 5; PO2 84 mmHG (75-100); RR 22; SITE R Radial; SO2 97 % (95-99)
--- NOTE | 2024-11-13 07:17 | PCM.RX.CS ---
Consult Antibiotic Management Pharmacy has been consulted to manage selected antibiotic: Vancomycin Type of Intervention Type of Consult: Follow-up Suspected Infection Suspected Infection: Pneumonia Labs Labs: Sodium 142 mmol/L (133-145) 11/13/24 03:40 Potassium 4.5 mmol/L (3.3-5.1) 11/13/24 03:40 Chloride 108 mmol/L (98-108) 11/13/24 03:40 Carbon Dioxide 15.1 mmol/L (21.0-32.0) L 11/13/24 03:40 Anion Gap 19 (5-15) H 11/13/24 03:40 BUN 36 mg/dL (4-19) H 11/13/24 03:40 Creatinine 1.88 mg/dL (0.70-1.20) H 11/13/24 03:40 Est GFR (MDRD) Non-Af 33 (>60) L 11/13/24 03:40 BUN/Creatinine Ratio 19.4 RATIO (10-20) 11/13/24 03:40 Glucose 141 mg/dL (70-99) H 11/13/24 03:40 Microbiology Microbiology: Microbiology 11/12/24 19:37 Mucosa - Nose Respiratory Panel (PCR) - Final Pharmacy Plan for Drug Dosing Pharmacy Plan for Drug Dosing: DAILY ASSESSMENT Current Vancomycin Dose: 1250MG Q24 Number of Doses Received: 1 (1500MG initial dose) Current Renal Function: SCr 1.88 mg/dL, CrCl 40.6 mL/mi Renal Function Trend: improved from SCr 2.57 mg/dL (11/12) Lab/Micro: pending Any Change in Vanc Plan: Yes, changed regimen to 750mg Q12 per policy due to improved renal function. Level adjusted to before the 4th dose. Pending Level: 11/14/24 @ 0700 Pharmacy Service will continue to monitor and adjust dosing as required.
--- NOTE | 2024-11-13 07:26 | PCM.PN.HOSP ---
Reason for Visit Reason for Visit: Diagnoses Metabolic encephalopathy (11/12/24) Acute respiratory failure, unspecified whether with hypoxia or hypercapnia (11/12/24) Acute kidney failure, unspecified (11/12/24) Subjective Subjective Agitated, but improved with propofol. Objective Data Objective Data Vital Signs: Vital Signs Temp Pulse Resp BP Pulse Ox O2 Del Method O2 Flow Rate 37.1 C 72 22 H 111/73 100 Mechanical Ventilator 2 11/13/24 04:00 11/13/24 07:00 11/13/24 07:00 11/13/24 07:00 11/13/24 07:00 11/13/24 07:00 11/12/24 12:52 FiO2 24 11/13/24 07:00 Oxygen Flow Rate (L/min) 2 Oxygen Delivery Method Mechanical Ventilator Weight: 96.9 kg Body Mass Index (BMI) 37.8 Intake & Output: Intake and Output for Last 24 Hours 11/11/24 11/12/24 11/13/24 23:59 23:59 23:59 Intake Total 3779.48 / 3877.88 420.31 / 420.31 Output Total 1100 / 1100 Balance 3779.48 / 3727.88 -679.69 / -679.69 Lab / Micro Data 11/13/24 03:40 11/13/24 03:40 Labs: Laboratory Results - last 24 hr 11/12/24 12:51: WBC 21.7 H, RBC 3.91 L, Hgb 11.1 L, Hct 34.7 L, MCV 88.7, MCH 28.4, MCHC 32.0, RDW Std Deviation 46.5 H, RDW Coeff of Beto 14.6, Plt Count 340, MPV 12.9 H, Immature Gran % (Auto) 0.800, Neut % (Auto) 87.8 H, Lymph % (Auto) 4.1 L, [place] % (Auto) 7.1, Eos % (Auto) 0.0, Baso % (Auto) 0.2, Absolute Neuts (auto) 19.0 H, Absolute Lymphs (auto) 0.88, Nucleated RBC % 0, Differential Comment SCANNED, PT 15.8 H, INR 1.2, Sodium 141, Potassium 5.5 H, Chloride 104, Carbon Dioxide 16.5 L, Anion Gap 21 H, BUN 42 H, Creatinine 2.57 H, Estim Creat Clear Calc 29.73 L, Est GFR (MDRD) Non-Af 23 L, BUN/Creatinine Ratio 16.2, Glucose 120 H, Calcium 10.1, Total Bilirubin 0.37, AST 51 H, ALT 18, Alkaline Phosphatase 136 H, Total Creatine Kinase 491 H, Total Protein 8.2, Albumin 4.5, Globulin 3.7, Albumin/Globulin Ratio 1.2, Triglycerides 520 H, Ethyl Alcohol < 10.1 11/12/24 13:05: Lactic Acid 1.7 11/12/24 14:10: Urine Color Yellow, Urine Clarity Cloudy, Urine pH 5.0, Ur Specific [place] 1.025, Urine Protein 30 H, Urine Glucose (UA) Normal, Urine Ketones 5 H, Urine Occult Blood 150 H, Urine Nitrite Negative, Urine Bilirubin Negative, Urine Urobilinogen Normal, Ur Leukocyte Esterase Negative, Urine RBC 25-50 SEEN, Urine WBC 0-5 SEEN, Ur Squamous Epith Cells 0-5 SEEN, Urine Bacteria 2+, Hyaline Casts 0-5 SEEN, Urine Mucus 0 SEEN, Urine Opiates Screen NEGATIVE, U Buprenorphine Qual NEGATIVE, Ur Oxycodone Screen NEGATIVE, Urine Methadone Screen NEGATIVE, Urine Fentanyl Screen NEGATIVE, Ur Barbiturates Screen NEGATIVE, Ur Phencyclidine Scrn NEGATIVE, Ur Amphetamines Screen NEGATIVE, U Benzodiazepines Scrn PRESUMPTIVE POSITIVE, Urine Cocaine Screen NEGATIVE, U Cannabinoids Screen PRESUMPTIVE POSITIVE 11/13/24 03:40: WBC 20.4 H, RBC 3.28 L, Hgb 9.1 L, Hct 29.6 L, MCV 90.2, MCH 27.7, MCHC 30.7 L, RDW Std Deviation 49.3 H, RDW Coeff of Beto 14.9 H, Plt Count 273, MPV 12.9 H, Sodium 142, Potassium 4.5, Chloride 108, Carbon Dioxide 15.1 L, Anion Gap 19 H, BUN 36 H, Creatinine 1.88 H, Estim Creat Clear Calc 40.62 L, Est GFR (MDRD) Non-Af 33 L, BUN/Creatinine Ratio 19.4, Glucose 141 H, Calcium 9.2, Total Bilirubin 0.20, AST 49 H, ALT 25, Alkaline Phosphatase 105 H, Total Protein 6.8, Albumin 3.8, Globulin 3.0, Albumin/Globulin Ratio 1.3 Micro: Microbiology 11/12/24 19:37 Mucosa - Nose Respiratory Panel (PCR) - Final ABG Data ABG results: ABG 11/12/24 11/13/24 14:22 07:01 Specimen Type ART ART Sample Site R Radial R Radial pH 7.27 L 7.43 Bicarbonate Actual 17.8 L 15.4 L Total CO2 19 16 Base Excess -9 L -9 L O2 Saturation 99 97 O2 % 40.0 24.0 ABG pCO2 38.9 23.2 L ABG pO2 156 H 84 Chris Test Positive Positive Respiration Rate 14 22 O2 Delivery Device Adult Vent Adult Vent Vent Mode AC AC Tidal Volume 450.0 450.0 POC PEEP 5 5 Radiography Diagnostic Testing: Radiology Impression Chest X-Ray 11/12/24 13:20 IMPRESSION: The tip of the endotracheal tube is at 2.9 cm proximal the joseluis. An orogastric tube is seen with the tip in the stomach. Increased markings at the left lung base suggestive of atelectasis. Reading Location: [facility] 11/12/24 13:34 IMPRESSION: No acute process is detected. Mild age-related changes as above Reading Location[facility] Cervical Spine CT 11/12/24 13:34 IMPRESSION: Straightening of the normal cervical lordosis. Infiltrates in both upper lobes. Orogastric tube and ET tube in good position. Reading Location: [facility] 11/12/24 13:34 IMPRESSION: Coronary artery calcification (CAC) is is present Chronic interstitial scarring. No acute abnormality is seen. Reading Location: [facility] Pelvis X-Ray 11/12/24 13:40 IMPRESSION: Status post right total hip replacement. There is good alignment. No acute fracture is seen. Reading Location: [facility] Renal Ultrasound 11/12/24 17:32 IMPRESSION: Right nephrolithiasis without hydronephrosis. Reading Location: [facility] Rhythm Strip Rhythm Strip: Sinus Tach Rate: 102 Ectopy: None Physical Exam Const Constitutional Narrative: intubated and sedated. HEENT head/scalp atraumatic and moist oral mucous membranes Eyes Eyes Narrative: no icterus Resp normal respiratory effort, no retractions, no use of accessory muscles and clear to auscultation bilaterally Cardio regular rate, regular rhythm, S1 normal heart sound, S2 normal heart sound and no murmurs GI normal to inspection, nondistended, normoactive bowel sounds, soft to palpation, non-tender and non-distended Extremity normal to inspection and full ROM Neuro Sensorium / Orientation: awake and alert Assessment & Plan Assessment/Plan (1) Acute respiratory failure: PLAN: Possible pneumonia. Along with interstitial lung disease. Intubated. Wean oxygen as tolerated. On cefepime, vancomycin, BDs, methylprednisolone. (2) Acute metabolic encephalopathy: PLAN: Rx screen positive for BZDs and cannabinoids. Head CT w/o acute process. (3) Rhabdomyolysis: PLAN: Mild CPK elevation. On IVF. (4) Acute renal failure: PLAN: Improved with IVF. US showed right nephrolithiasis w/o hydronephrosis (5) Septic shock: PLAN: Unclear source, though would favor pneumonia at this point. UA unremarkable for UTI. Follow up cultures on norepinephrine gtt. (6) NSTEMI, initial episode of care: PLAN: Troponins not ordered on admission. Initial troponin this AM was 727. Will cycle. Already anticoagulated with apixaban. Check echo. Cardiology consult PLAN: Plan VTE prophylaxis: with apixaban. Charges/Coding Visit Charges Inpatient E&M: 74578 Subs Hosp L3
[2024-11-13 07:37] LABS: Troponin T High Sensitivity 727 ng/L (<=14)
[2024-11-13] MEDS: Vancomycin HCl 750 MG in 0.9% Normal Saline (250mL Bag) 250 ML 250 MG IV ×2 (07:49→20:03)
[2024-11-13] MEDS: APIXABAN 5 MG TABLET PO ×2 (09:52→22:03)
[2024-11-13 09:54] LABS: Troponin T High Sens 2 HR 299 ng/L (<=14)
[2024-11-13] MEDS: dexMEDEtomidine 400 MCG in 0.9% Normal Saline (100mL Bag) 96 ML 26.6 MCG CONT INF (10:00)
--- NOTE | 2024-11-13 10:09 | PCM.CONS.C ---
Assessment & Plan Assessment/Plan (1) Elevated troponin: PLAN: The troponin elevated to 727 is consistent with her respiratory failure and what appears to be a possible sepsis picture. The patient does have 9 documented coronary artery disease by calcifications on the CT angiogram. Apparently the patient also has a history of a bicuspid aortic valve status post repair. I do not have any other documentation other than finding the information in the chart as a diagnosis. Will try to follow-up on this with the family. ECG does not show any acute ischemic changes. I do not feel that further evaluation is indicated at this point in time. Recommend continued supportive care from a respiratory status point of view. (2) Acute metabolic encephalopathy: PLAN: Uncertain etiology. The patient did test positive for benzodiazepines and THC. However she came in with Kussmaul's breathing and was relatively hypoxic. She required intubation and she remains intubated on FiO2 of 24%. She does have a history of chronic scarring of her upper lung lobes. (3) Acute respiratory failure: QUALIFIERS: Respiratory failure complication: hypoxia Qualified Code(s): J96.01 - Acute respiratory failure with hypoxia PLAN: Uncertain of the etiology the patient is still being evaluated from an weekend receptionist and primary care standpoint. (4) History of bicuspid aortic valve: PLAN: Will need to get more information from the echocardiogram which is pending as well as confirmation with the patient's family about potential repair or surgical intervention. Patient also has a history of an ASD closure in the chart. (5) Pulmonary hypertension: PLAN: Patient also carries a history of pulmonary hypertension. Will get an idea of this from the results of the echocardiogram which are pending. PLAN: Plan 1. Continue supportive care. 2. Will reevaluate in follow-up with further recommendations pending the outcome of the echocardiogram and discussion with the family. HPI Consult Data Date of Consult: 11/13/24 HPI Narrative Reason for Consultation: Elevated troponin, altered mental status, respiratory failure HPI Narrative: CONCEPCION CR, is a 44 F who presents with acute altered mental status and hypoxic respiratory failure requiring intubation in the emergency room. Patient has a history of interstitial lung disease, pulmonary hypertension, and notation of heart failure in her old records. She also had in her records that she may have a bicuspid aortic valve. Patient also has a history of personality disorder and her drug screen was positive for benzodiazepines and THC on admission. The patient had a recent surgery on her left ankle due to her fracture. Patient also has a history of previous hospitalization requiring long-term ventilatory support requiring a tracheostomy which is subsequently been removed. Cardiology was consulted due to trivial troponin of 700. ECG done when she was admitted showed sinus tachycardia with no significant ST or T wave changes. No troponins were done originally troponins were drawn several hours later. The initial troponin from today was 700 delta troponins dropped to 299 in 2 hours.. The patient remains intubated and sedated. There is no family available and the information obtained was from the chart and discussion with the providers. Echo done at the bedside is pending at this time. The patient does have history of coronary artery calcifications noted on CT scan 11/12/2024. [facility] Medical History Abnormal EKG CKD stage 3b, GFR 30-44 ml/min Anxiety Depression Kidney stones Kidney disease GERD (gastroesophageal reflux disease) Asthma Congestive heart failure (CHF) CHF (congestive heart failure) TIA (transient ischemic attack) (~2001) History of stroke (~2001) Non-rheumatic tricuspid valve insufficiency DDD (degenerative disc disease) History of bicuspid aortic valve Essential hypertension History of DVT of lower extremity History of pulmonary embolus (PE) Colitis Cough Chest pain Thrush Normochromic normocytic anemia Borderline personality disorder Pulmonary hypertension Seizure disorder ARDS (adult respiratory distress syndrome) Acute respiratory failure with hypoxia Hematemesis Leiomyosarcoma Syringomyelia Migraine Exercise-induced asthma Arthritis Anxiety disorder Fibromyalgia AI (aortic insufficiency) Home Medications Medication Instructions Recorded Last Taken Type medroxyprogesterone 150 mg/mL 150 mg IM .[id number] control 03/15/16 3 Weeks Ago History intramuscular syringe ~06/19/20 albuterol sulfate 90 mcg/actuation 1 puff inhalation Q4H PRN Sob &/Or 10/02/16 01/06/24 History aerosol inhaler Wheezing albuterol sulfate 2.5 mg/3 mL 2.5 mg (3 mL) inhalation Q4H PRN 04/15/19 01/06/24 Rx (0.083 %) solution for nebulization breathing #25 vials fluoxetine 40 mg capsule 40 mg PO DAILY DEPRESSION 07/10/20 01/06/24 History oxaprozin 600 mg tablet 600 mg PO BID PRN pain 07/10/20 01/06/24 History lisinopril 30 mg tablet 30 mg PO DAILY blood pressure 11/06/23 01/06/24 History montelukast 10 mg tablet 10 mg PO DAILY allergies 11/06/23 01/06/24 History ranolazine 500 mg tablet,extended 500 mg PO BID chest pain 11/06/23 01/06/24 History release,12 hr atorvastatin 20 mg tablet 20 mg PO DAILY cholesterol 12/29/23 01/06/24 History pregabalin 300 mg capsule 300 mg PO Q12H nerve pain 12/29/23 01/06/24 History ferrous gluconate 324 mg (38 mg 324 mg PO DAILY #30 tabs 01/01/24 01/06/24 Rx iron) tablet budesonide-formoterol HFA 160 2 puff inhalation DAILY 01/06/24 01/06/24 History mcg-4.5 mcg/actuation aerosol inhaler (Symbicort) fluoxetine 20 mg tablet 20 mg PO DAILY 01/06/24 01/06/24 History omeprazole 20 mg capsule,delayed 20 mg PO DAILY 01/06/24 01/06/24 History release tizanidine 4 mg tablet 4 mg PO TID PRN muscle spasticity 01/14/24 Unknown History baclofen 10 mg tablet 10 mg PO TID PRN muscle spasm 01/16/24 Unknown History apixaban 5 mg (74 tabs) tablets in 5 mg PO BID #74 tabs 01/19/24 Unknown Rx a dose pack ([employer] DVT-PE Treat 30D Start) metoprolol tartrate 25 mg tablet 25 mg PO BID #60 tabs 01/19/24 Unknown Rx Allergy/AdvReac Type Severity Reaction Status Date / Time amitriptyline Allergy Other Verified 08/02/24 10:13 amoxicillin (Amoxicillin) Allergy Rash Verified 08/02/24 10:13 erythromycin base Allergy Rash Verified 08/02/24 10:13 (Erythromycin Base) hydroxyzine Allergy Rash Verified 08/02/24 10:13 levofloxacin (From Levaquin) Allergy Swelling Verified 08/02/24 10:13 milnacipran Allergy Other Verified 08/02/24 10:13 milnacipran HCl (From Allergy Other Verified 08/02/24 10:13 Savella) celecoxib (From Celebrex) AdvReac Other Verified 08/02/24 10:13 diphenhydramine HCl (From AdvReac muscle Verified 08/02/24 10:13 Benadryl) spasms duloxetine HCl (From AdvReac Other Verified 08/02/24 10:13 Cymbalta) meloxicam AdvReac Swelling Verified 08/02/24 10:13 of legs/chest pain Family History Mother Cancer, Onset Age: 36 Breast CVA (cerebral vascular accident) CAD (coronary artery disease), Onset Age: 46 Myocardial infarction x2 Grandmother CAD (coronary artery disease) COPD (chronic obstructive pulmonary disease) Diabetes Surgical History History of right hip replacement History of adenoidectomy History of bilateral knee replacement History of left heart catheterization (LHC) (~01/31/17) History of atrial septal defect repair (~12/04/00) H/O aortic valve repair (~12/04/00) Social History Smoking Status: Current every day smoker tobacco type: cigarettes alcohol intake: current details: occasional substance use type: does not use ROS Review of Systems ROS Unobtainable: due to endotracheal tube and due to mental status Constitutional Constitutional: Reports as per HPI Cardiovascular Cardiovascular: Reports as per HPI Respiratory/Chest Respiratory/Chest: Reports as per HPI Neurologic Neurologic: Reports as per HPI Psychiatric Psychiatric: Reports as per HPI Physical Exam Narrative Patient is intubated and sedated. She is not responsive to verbal stimuli. Const Constitutional Narrative: Intubated and sedated HEENT normocephalic Neck Neck Narrative: Thick neck Carotids: Negative for bruit Resp normal respiratory effort Resp Narrative: Intubated breathing on her own with clear lung feels Cardio Cardio Narrative: Somewhat distant heart tones with no obvious murmurs gallops or rubs. Rate: regular rate Rhythm: regular rhythm Heart Sounds: S1 normal and S2 normal; Negative for click, gallop or murmur GI GI Narrative: Obese Extremity no pedal edema Neuro Neuro Narrative: Intubated and sedated Psych Psych Narrative: Intubated and sedated Risk Stratification Risk Stratification Applicable: Yes Age >/= 65: No >/= 3 CAD Risk Factors (HTN, HLD, DM, family hx of CAD, or current smoker): No Aspirin Use in the Past 7 Days: No Severe Angina (>/= episodes in 24 hours): No EKG ST Changes >/= 0.5mm: No Positive Cardiac Marker: Yes GABRIELA Risk Stratification Score: 1 GABRIELA % Risk: 5% Risk Charges/Coding Visit Charges Inpatient E&M: 11879 Init Hosp L3 Objective Data Vital Signs: Vital Signs Temp Pulse Resp BP Pulse Ox O2 Del Method O2 Flow Rate 98.7 F 72 22 H 111/73 100 Mechanical Ventilator 2 11/13/24 04:00 11/13/24 07:00 11/13/24 07:00 11/13/24 07:00 11/13/24 07:00 11/13/24 07:30 11/12/24 12:52 FiO2 24 11/13/24 07:30 Oxygen Flow Rate (L/min) 2 Oxygen Delivery Method Mechanical Ventilator Weight: 213 lb 10.047 oz Body Mass Index (BMI) 37.8 Intake & Output: Intake and Output for Last 24 Hours 11/11/24 11/12/24 11/13/24 23:59 23:59 23:59 Intake Total 3779.48 / 3877.88 828.33 / 828.33 Output Total 1100 / 1100 Balance 3779.48 / 3727.88 -271.67 / -271.67 Lab / Micro Data Attestation: I reviewed the patient's lab results. 11/13/24 03:40 11/13/24 03:40 Labs: Laboratory Results - last 24 hr 11/12/24 12:51: WBC 21.7 H, RBC 3.91 L, Hgb 11.1 L, Hct 34.7 L, MCV 88.7, MCH 28.4, MCHC 32.0, RDW Std Deviation 46.5 H, RDW Coeff of Beto 14.6, Plt Count 340, MPV 12.9 H, Immature Gran % (Auto) 0.800, Neut % (Auto) 87.8 H, Lymph % (Auto) 4.1 L, [place] % (Auto) 7.1, Eos % (Auto) 0.0, Baso % (Auto) 0.2, Absolute Neuts (auto) 19.0 H, Absolute Lymphs (auto) 0.88, Nucleated RBC % 0, Differential Comment SCANNED, PT 15.8 H, INR 1.2, Sodium 141, Potassium 5.5 H, Chloride 104, Carbon Dioxide 16.5 L, Anion Gap 21 H, BUN 42 H, Creatinine 2.57 H, Estim Creat Clear Calc 29.73 L, Est GFR (MDRD) Non-Af 23 L, BUN/Creatinine Ratio 16.2, Glucose 120 H, Calcium 10.1, Total Bilirubin 0.37, AST 51 H, ALT 18, Alkaline Phosphatase 136 H, Total Creatine Kinase 491 H, Total Protein 8.2, Albumin 4.5, Globulin 3.7, Albumin/Globulin Ratio 1.2, Triglycerides 520 H, Ethyl Alcohol < 10.1 11/12/24 13:05: Lactic Acid 1.7 11/12/24 14:10: Urine Color Yellow, Urine Clarity Cloudy, Urine pH 5.0, Ur Specific [place] 1.025, Urine Protein 30 H, Urine Glucose (UA) Normal, Urine Ketones 5 H, Urine Occult Blood 150 H, Urine Nitrite Negative, Urine Bilirubin Negative, Urine Urobilinogen Normal, Ur Leukocyte Esterase Negative, Urine RBC 25-50 SEEN, Urine WBC 0-5 SEEN, Ur Squamous Epith Cells 0-5 SEEN, Urine Bacteria 2+, Hyaline Casts 0-5 SEEN, Urine Mucus 0 SEEN, Urine Opiates Screen NEGATIVE, U Buprenorphine Qual NEGATIVE, Ur Oxycodone Screen NEGATIVE, Urine Methadone Screen NEGATIVE, Urine Fentanyl Screen NEGATIVE, Ur Barbiturates Screen NEGATIVE, Ur Phencyclidine Scrn NEGATIVE, Ur Amphetamines Screen NEGATIVE, U Benzodiazepines Scrn PRESUMPTIVE POSITIVE, Urine Cocaine Screen NEGATIVE, U Cannabinoids Screen PRESUMPTIVE POSITIVE 11/13/24 03:40: WBC 20.4 H, RBC 3.28 L, Hgb 9.1 L, Hct 29.6 L, MCV 90.2, MCH 27.7, MCHC 30.7 L, RDW Std Deviation 49.3 H, RDW Coeff of Beto 14.9 H, Plt Count 273, MPV 12.9 H, Sodium 142, Potassium 4.5, Chloride 108, Carbon Dioxide 15.1 L, Anion Gap 19 H, BUN 36 H, Creatinine 1.88 H, Estim Creat Clear Calc 40.62 L, Est GFR (MDRD) Non-Af 33 L, BUN/Creatinine Ratio 19.4, Glucose 141 H, Calcium 9.2, Total Bilirubin 0.20, AST 49 H, ALT 25, Alkaline Phosphatase 105 H, Troponin T High Sens 727 H*, Total Protein 6.8, Albumin 3.8, Globulin 3.0, Albumin/Globulin Ratio 1.3 11/13/24 08:40: Troponin T Hi Sens 2 Hr 299 H* Micro: Microbiology 11/12/24 19:37 Mucosa - Nose Respiratory Panel (PCR) - Final ABG Data ABG results: ABG 11/12/24 11/13/24 14:22 07:01 Specimen Type ART ART Sample Site R Radial R Radial pH 7.27 L 7.43 Bicarbonate Actual 17.8 L 15.4 L Total CO2 19 16 Base Excess -9 L -9 L O2 Saturation 99 97 O2 % 40.0 24.0 ABG pCO2 38.9 23.2 L ABG pO2 156 H 84 Chris Test Positive Positive Respiration Rate 14 22 O2 Delivery Device Adult Vent Adult Vent Vent Mode AC AC Tidal Volume 450.0 450.0 POC PEEP 5 5 Rhythm Strip Rhythm Strip: Sinus Rhythm Rate: 71 Ectopy: None Cardiology Labs/Tests 11/12/24 12:51: WBC 21.7 H, RBC 3.91 L, Hgb 11.1 L, Hct 34.7 L, MCV 88.7, MCH 28.4, MCHC 32.0, Plt Count 340, MPV 12.9 H, Immature Gran % (Auto) 0.800, Neut % (Auto) 87.8 H, Lymph % (Auto) 4.1 L, [place] % (Auto) 7.1, Eos % (Auto) 0.0, Baso % (Auto) 0.2, Absolute Neuts (auto) 19.0 H, Nucleated RBC % 0, PT 15.8 H, INR 1.2, Sodium 141, Potassium 5.5 H, Chloride 104, Carbon Dioxide 16.5 L, Anion Gap 21 H, BUN 42 H, Creatinine 2.57 H, Est GFR (MDRD) Non-Af 23 L, BUN/Creatinine Ratio 16.2, Glucose 120 H, Calcium 10.1, Total Bilirubin 0.37, Triglycerides 520 H 11/12/24 13:05: Lactic Acid 1.7 11/12/24 14:10: Urine Color Yellow, Urine Clarity Cloudy, Urine pH 5.0, Ur Specific [place] 1.025, Urine Protein 30 H, Urine Glucose (UA) Normal, Urine Ketones 5 H, Urine Occult Blood 150 H, Urine Nitrite Negative, Urine Bilirubin Negative, Urine Urobilinogen Normal, Ur Leukocyte Esterase Negative, Urine RBC 25-50 SEEN, Urine WBC 0-5 SEEN 11/12/24 14:22: pH 7.27 L, Bicarbonate Actual 17.8 L, Base Excess -9 L, O2 Saturation 99, ABG pCO2 38.9, ABG pO2 156 H, Chris Test Positive 11/13/24 03:40: WBC 20.4 H, RBC 3.28 L, Hgb 9.1 L, Hct 29.6 L, MCV 90.2, MCH 27.7, MCHC 30.7 L, Plt Count 273, MPV 12.9 H, Sodium 142, Potassium 4.5, Chloride 108, Carbon Dioxide 15.1 L, Anion Gap 19 H, BUN 36 H, Creatinine 1.88 H, Est GFR (MDRD) Non-Af 33 L, BUN/Creatinine Ratio 19.4, Glucose 141 H, Calcium 9.2, Total Bilirubin 0.20 11/13/24 07:01: pH 7.43, Bicarbonate Actual 15.4 L, Base Excess -9 L, O2 Saturation 97, ABG pCO2 23.2 L, ABG pO2 84, Chris Test Positive Rhythm: EKG: ECHO: Stress Test: Cardiac Cath: PCI: CT Surgery: Holter monitor: EPS: PPM: CXR: Chest CT Scan: Radiography Diagnostic Testing: Radiology Impression Chest X-Ray 11/12/24 13:20 IMPRESSION: The tip of the endotracheal tube is at 2.9 cm proximal the joseluis. An orogastric tube is seen with the tip in the stomach. Increased markings at the left lung base suggestive of atelectasis. Reading Location: [facility] 11/12/24 13:34 IMPRESSION: No acute process is detected. Mild age-related changes as above [facility] Cervical Spine CT 11/12/24 13:34 IMPRESSION: Straightening of the normal cervical lordosis. Infiltrates in both upper lobes. Orogastric tube and ET tube in good position. Reading Location: [place] [address] 11/12/24 13:34 IMPRESSION: Coronary artery calcification (CAC) is is present Chronic interstitial scarring. No acute abnormality is seen. Reading Location: [place] [address] Pelvis X-Ray 11/12/24 13:40 IMPRESSION: Status post right total hip replacement. There is good alignment. No acute fracture is seen. Reading Location: [place] [address] Renal Ultrasound 11/12/24 17:32 IMPRESSION: Right nephrolithiasis without hydronephrosis. Reading Location: [facility]
--- NOTE | 2024-11-13 11:53 | CASEMGMT ---
JAZ DIGGS Assessment: Pt is currently on the vent. Noted pt father is HCPOA. TC to pt father, JAZ Vinson CM introduced self and role at [facility], pt father voices understanding and consents to assessment. Care providers, pharmacy, and demographics verified/updated to the best of father's ability. He states that he is recently from pt mother and is now not living in the home. Admitting Dx: acute resp failure PCP:Malaika Specialists:Cardio and pulm but he is not sure the names of the physicians. Preferred [facility]acy: [facility] Insurance: [facility] Prescription Benefit: yes LNOK: Jaida Loya, mother; Karel Loya, father Living Arrangements: Pt lives with mother in the basement. The home is a single story with 3 steps to enter. Pt has 10-12 steps to basement. Father states typically pt is indep in ADL/IADLs but pt recently had ankle surgery and has been mobile by w/c. He does not know what wt bearing status pt has at this time. Transportation: Pt mother provides pt with transportation. DME:w/c, oxygen-unknown who supplies this, nebulizer HHC/SNF: Unsure if pt has had HHC in the past, states pt was just dc'd from [facility] on Friday. Pt father states no further concerns/needs. CM to follow. Advised pt father to ask CM if any further questions/concerns/needs arise, voices understanding. Pt Goal: TBD Plan: TBMello Walters RN, CM
[2024-11-13] MEDS: Cefepime HCl 1 GM in 0.9% Normal Saline (50mL MB+) 50 ML IV ×2 (12:11→22:26)
[2024-11-13 12:49] LABS: Troponin T High Sens 4 HR 540 ng/L (<=14)
[2024-11-13] MEDS: Dexmedetomidine 1,000 mcg in 0.9% NS 240 mL 33.9 MCG CONT INF (13:13)
[2024-11-13] MEDS: fentaNYL drip 100 ML 12.5 MCG CONT INF (14:04)
[2024-11-13] MEDS: Dexmedetomidine 1,000 mcg in 0.9% NS 240 mL 36.3 MCG CONT INF (20:13)
[2024-11-13] MEDS: fentaNYL drip 100 ML 20 MCG CONT INF (20:14)
[2024-11-13] MEDS: Chlorhexidine 15 ML PO (22:26)
[2024-11-13] MEDS: 0.9% Saline Lock 10 ML Syringe IV (22:27)
[2024-11-14] VITALS (34 sets, daily range): BP systolic 104–137; BP diastolic 57–111; PULSE 55–88; RESP 14–27; TEMP 37.5–38.1; O2SAT 90–99; BMI 39.1
[2024-11-14] MEDS: fentaNYL drip 100 ML 20 MCG CONT INF ×4 (01:24→17:10)
[2024-11-14] MEDS: Lactated Ringers 1,000 ML 100 ML IV ×3 (02:38→22:07)
[2024-11-14] MEDS: Dexmedetomidine 1,000 mcg in 0.9% NS 240 mL 36.3 MCG CONT INF ×4 (02:38→23:07)
[2024-11-14] MEDS: Vancomycin Trough/Random Due 1 LAB MC (06:28)
[2024-11-14 06:39] LABS: Hematocrit 25.1 % (37-47); Hemoglobin 8.0 g/dL (12.0-15.0); Immature Granulocytes Count 0.210 X10^3/uL (0.0-0.0); Mean Corp Hgb Conc 31.9 g/dL (32-36); Mean Corpuscular Volume 88.7 fL (81-99); Mean Platelet Vol. 12.9 fl (6.2-12.0); NRBC Flagged by Analyzer 0.1 % (0-5); POSITIVE DIFFERENTIAL YES; Platelet Count 193 K/mm3 (150-450); RBC Distribution Width CV 15.5 % (11.6-14.6); RBC Distribution Width SD 50.3 fl (35.1-43.9); Red Blood Count 2.83 M/mm3 (4.2-5.4); White Blood Count 14.4 K/mm3 (4.4-11.0)
--- NOTE | 2024-11-14 07:03 | PN.HOSP_ITS ---
Reason for Visit Reason for Visit: Diagnoses Sepsis, unspecified organism (11/12/24) Metabolic encephalopathy (11/12/24) Non-ST elevation (NSTEMI) myocardial infarction (11/12/24) Other secondary pulmonary hypertension (11/12/24) Acute respiratory failure, unspecified whether with hypoxia or hypercapnia (11/12/24) Acute respiratory failure with hypoxia (11/12/24) Rhabdomyolysis (11/12/24) Acute kidney failure, unspecified (11/12/24) Severe sepsis with septic shock (11/12/24) Other specified abnormal findings of blood chemistry (11/12/24) Personal history of (corrected) congenital malformations of heart and circulatory system (11/12/24) Subjective Subjective Agitated despite fentanyl and dexmedetomidine. Propofol added. Objective Data Objective Data Vital Signs: Vital Signs Temp Pulse Resp BP Pulse Ox O2 Del Method O2 Flow Rate 37.5 C H 77 22 H 130/100 H 96 Mechanical Ventilator 2 11/14/24 07:00 11/14/24 07:00 11/14/24 07:00 11/14/24 07:00 11/14/24 07:00 11/14/24 07:00 11/12/24 12:52 FiO2 24 11/14/24 07:00 Oxygen Flow Rate (L/min) 2 Oxygen Delivery Method Mechanical Ventilator Weight: 100.2 kg Body Mass Index (BMI) 39.1 Intake & Output: Intake and Output for Last 24 Hours 11/12/24 11/13/24 11/14/24 23:59 23:59 23:59 Intake Total 3779.48 / 3877.88 2998.62 / 3154.92 1548.77 / 1548.77 Output Total 1375 / 1375 150 / 150 Balance 3779.48 / 3727.88 1623.62 / 1779.92 1398.77 / 1398.77 Lab / Micro Data 11/14/24 06:30 11/14/24 06:30 Labs: Laboratory Results - last 24 hr 11/13/24 03:40: Troponin T High Sens 727 H* 11/13/24 08:40: Troponin T Hi Sens 2 Hr 299 H* 11/13/24 12:10: Troponin T Hi Sens 4Hr 540 H* 11/14/24 06:30: WBC 14.4 H, RBC 2.83 L, Hgb 8.0 L, Hct 25.1 L, MCV 88.7, MCH 28.3, MCHC 31.9 L, RDW Std Deviation 50.3 H, RDW Coeff of Beto 15.5 H, Plt Count 193, MPV 12.9 H, Immature Gran % (Auto) 1.500 H, Neut % (Auto) 88.4 H, Lymph % (Auto) 3.4 L, [place] % (Auto) 6.5, Eos % (Auto) 0.1, Baso % (Auto) 0.1, Absolute Neuts (auto) 12.8 H, Absolute Lymphs (auto) 0.49 L, Nucleated RBC % 0.1 Micro: Microbiology 11/12/24 15:11 Blood Culture (Wb) - Left Hand Bacteria Detection (PCR) - Preliminary Staphylococcus epidermidis mecA Resistance Marker 11/12/24 15:11 Blood Culture (Wb) - Left Hand Blood Culture - Preliminary Coag Negative Staph 11/12/24 Unknown Sputum, Induced/Lukens Gram Stain - Final 11/12/24 19:37 Mucosa - Nose Respiratory Panel (PCR) - Final ABG Data ABG results: ABG 11/13/24 07:01 Specimen Type ART Sample Site R Radial pH 7.43 Bicarbonate Actual 15.4 L Total CO2 16 Base Excess -9 L O2 Saturation 97 O2 % 24.0 ABG pCO2 23.2 L ABG pO2 84 Chris Test Positive Respiration Rate 22 O2 Delivery Device Adult Vent Vent Mode AC Tidal Volume 450.0 POC PEEP 5 Radiography Diagnostic Testing: Radiology Impression Echocardiogram 11/13/24 06:26 Interpretation Summary The estimated ejection fraction is 35 %. Base of the LV is wiliam well. Rest of the LV is severely hypokinetic LV apical thrombus cannot be excluded Trivial mitral valve insufficiency. Ordering Physician: Ranulfo Ramsay Referring Physician: Bill Dai Performed By: Amber Salmeron, DEIDRA, RVT Rhythm Strip Rhythm Strip: Sinus Rhythm Rate: 71 Ectopy: None Physical Exam Narrative POCUS: Respiratory failure. Cardiac exam and P lax, apical and subxiphoid showed grossly hypokinetic LV. Unable to appreciate the IVC due to her respiratory variation and abdominal breathing. Lung exam showed B-lines throughout. Limited view in the bases due to body habitus. Const Constitutional Narrative: Intubated. Sedated. Afebrile. HEENT head/scalp atraumatic and moist oral mucous membranes HEENT Narrative: ET tube and OG tube in place Cardio Cardio Narrative: Coarse breath sounds bilaterally with expiratory wheeze GI normal to inspection, nondistended, normoactive bowel sounds, soft to palpation, non-tender and non-distended GI Narrative: Obese. Soft. Extremity Extremity Narrative: Trace lower extremity edema Neuro moves all extremities Assessment & Plan Assessment/Plan (1) Acute respiratory failure: QUALIFIERS: Respiratory failure complication: hypoxia Qualified Code(s): J96.01 - Acute respiratory failure with hypoxia PLAN: Possible pneumonia. Along with interstitial lung disease. Intubated. Wean oxygen as tolerated. On cefepime, vancomycin, BDs, methylprednisolone. (2) Acute metabolic encephalopathy: PLAN: Secondary to underlying illness but possibility of toxic component SARS-CoV-2 the Rx screen positive for BZDs and cannabinoids. Head CT w/o acute process. Patient very agitated despite abdominal drip and dexmedetomidine drip. Propofol being added back. Will need to monitor closely for hypotension. (3) Rhabdomyolysis: PLAN: Mild CPK elevation. On IVF. (4) Acute renal failure: PLAN: Improved with IVF. US showed right nephrolithiasis w/o hydronephrosis (5) Septic shock: PLAN: Unclear source, though would favor pneumonia at this point. UA unremarkable for UTI. Follow up cultures. 1of 2 blood cultures from the 20th positive for S. epi (likely contaminant) on norepinephrine gtt. (6) NSTEMI, initial episode of care: PLAN: Troponins not ordered on admission. Initial troponin this AM was 727. Already anticoagulated with apixaban. Echo shows an EF 35%. Base of LV wiliam well, but remainder is severely hypokinetic. Cannot rule out LV thrombus. Markedly reduced from 12/2023 when is was 65%. Cardiology following and recommending medical management at this time with initiation of losartan 25 daily, metoprolol continued at 25 twice daily. (7) ABLA (acute blood loss anemia): PLAN: Hg went from 11.1 to 8 today At least partially dilutional. Previously, Hg has been around 9.7 in 12/2023. Checkhemoccult. Iron low at 12, ferritin 129. TSH 1.42. B12 normal at 550. Folates pending. Will give dose of one-time of iron sucrose 100 mg. PLAN: Plan Chronic conditions: * DVT: apixaban. * pulmonary hypertension: unclear type. Though previously may have been group 3. VTE prophylaxis: with apixaban. Charges/Coding Visit Charges Inpatient E&M: 31498 Subs Hosp L3
[2024-11-14 07:28] LABS: Anion Gap 14 (5-15); BUN 37 mg/dL (4-19); BUN/Creat Ratio 24.0 RATIO (10-20); Calcium,Total 8.0 mg/dL (7.6-11.0); Carbon Dioxide 14.3 mmol/L (21.0-32.0); Chloride 112 mmol/L (98-108); Estimated Creatinine Clearance 50.22 ml/min (50-250); Glucose 163 mg/dL (70-99); Potassium 4.0 mmol/L (3.3-5.1)
[2024-11-14 07:29] LABS: Vancomycin, Trough Level 24.9 ug/mL (5.0-15.0)
--- NOTE | 2024-11-14 07:45 | PCM.RX.CS ---
Consult Antibiotic Management Pharmacy has been consulted to manage selected antibiotic: Vancomycin Type of Intervention Type of Consult: Follow-up Suspected Infection Suspected Infection: Pneumonia and Bacteremia Labs Labs: Sodium 141 mmol/L (133-145) 11/14/24 06:30 Potassium 4.0 mmol/L (3.3-5.1) 11/14/24 06:30 Chloride 112 mmol/L (98-108) H 11/14/24 06:30 Carbon Dioxide 14.3 mmol/L (21.0-32.0) L 11/14/24 06:30 Anion Gap 14 (5-15) 11/14/24 06:30 BUN 37 mg/dL (4-19) H 11/14/24 06:30 Creatinine 1.55 mg/dL (0.70-1.20) H 11/14/24 06:30 Est GFR (MDRD) Non-Af 42 (>60) L 11/14/24 06:30 BUN/Creatinine Ratio 24.0 RATIO (10-20) H 11/14/24 06:30 Glucose 163 mg/dL (70-99) H 11/14/24 06:30 Vancomycin Trough 24.9 ug/mL (5.0-15.0) H 11/14/24 06:30 Microbiology Microbiology: Microbiology 11/12/24 15:11 Blood Culture (Wb) - Left Hand Bacteria Detection (PCR) - Preliminary Staphylococcus epidermidis mecA Resistance Marker 11/12/24 15:11 Blood Culture (Wb) - Left Hand Blood Culture - Preliminary Coag Negative Staph 11/12/24 Unknown Sputum, Induced/Lukens Gram Stain - Final 11/12/24 19:37 Mucosa - Nose Respiratory Panel (PCR) - Final Pharmacy Plan for Drug Dosing Pharmacy Plan for Drug Dosing: VANCOMYCIN LEVEL RECEIVED Current Vancomycin Dose: 750MG Q12 Number of Doses Received: 3 Vancomycin Level: 24.9 MG/DL Hours Since Last Dose: 10.5 Renal Function: SCr 1.55mg/dL, CrCl 50 mL/min Renal Function Trend: improved Lab/Micro: blood cx 1/2 MRSE, sputum cx pending Vancomycin Plan/Comments: 10.5 hour trough was supratherapeutic at 24.9 mg/dL (goal 15-20). Last dose was given a little late and trough drawn a little early, but will still hold dosing and get a random level in 12 hours. Pending Level: 6/22/25 @ 0746 Pharmacy Service will continue to monitor and adjust dosing as required.
[2024-11-14] MEDS: APIXABAN 5 MG TABLET PO ×2 (08:14→21:44)
[2024-11-14] MEDS: Cefepime HCl 1 GM in 0.9% Normal Saline (50mL MB+) 50 ML IV ×2 (08:18→21:52)
[2024-11-14 08:46] LABS: Ferritin 129 ng/mL (22-378); Iron 12 ug/dL (50-170); Iron Binding Capacity,Total 329 ug/dL (250-450); Iron Binding Capacity,Unsat 317 ug/dL (228-428); Vitamin B12 550 pg/mL (180-914)
[2024-11-14] MEDS: Propofol 10MG/Ml 1,000 MG/100 ML Bottle 5.8 MG CONT INF (09:22)
[2024-11-14] MEDS: Chlorhexidine 15 ML PO ×2 (09:40→21:52)
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
[2024-11-14] MEDS: CHLORHEXIDINE GLUC 2% CLOTH 1 EACH TOWELETTE TOPICAL (10:12)
[2024-11-14] MEDS: Sodium Ferric Gluconat 125 MG in 0.9% Normal Saline 100 ML 110 MG IV (11:11)
--- NOTE | 2024-11-14 11:59 | PCM.PN.TICU ---
Objective Data Objective Data Vital Signs: Vital Signs Last response Temperature 37.6 C H 11/14/24 08:00 Temperature Source Core 11/14/24 08:00 Pulse Rate 63 11/14/24 11:37 Respiratory Rate 22 H 11/14/24 11:37 Respiratory Effort Mechanically Ventilated 11/14/24 08:00 Respiratory Depth Normal 11/14/24 08:00 Respiratory Pattern Normal 11/14/24 11:37 Blood Pressure 135/103 H 11/14/24 08:14 Blood Pressure Mean 114 11/14/24 08:00 Blood Pressure Source Monitor 11/14/24 08:00 Blood Pressure Position Semi-Fowlers 11/14/24 08:00 Blood Pressure Location Right Forearm 11/14/24 08:00 Pulse Ox 92 11/14/24 11:37 Oxygen Delivery Method Mechanical Ventilator 11/14/24 08:00 Oxygen Flow Rate (L/min) 2 11/12/24 12:52 Fraction of Inspired Oxygen (FIO2) 30 11/14/24 11:37 I&O: I&O Last 24 Hours 11/13/24 11/13/24 11/14/24 11:59 23:59 11:59 Intake Total 991.01 / 3154.92 2007.61 / 3154.92 1910.42 / 1910.42 Output Total 1100 / 1375 275 / 1375 150 / 150 Balance -108.99 / 1779.92 1732.61 / 1779.92 1760.42 / 1760.42 I&O: Total Stay 11/12/24 12:35 thru 11/14/24 11:29 Intake Total 8688.52 Output Total 1525 Balance 7163.52 Current Meds Ordered / Administered: Current meds ordered / Administered Generic Name Dose Route Start Last Admin Trade Name Freq PRN Reason Stop Dose Admin Acetaminophen 650 mg 11/12/24 17:32 Acetaminophen 325 Mg Tablet PO Q6H PRN PRN Pain 1-10 Or Fever>100.7 Albuterol/Ipratropium 3 ml 11/13/24 06:00 11/14/24 11:38 Ipratropium/Albuterol Sulfate 3 Ml Ampul.Neb INHALATION 3 ml Q4H.RT SADE Administration Apixaban 5 mg 11/12/24 22:00 11/14/24 08:14 Apixaban 5 Mg Tablet PO 5 mg BID SADE Administration Atorvastatin Calcium 20 mg 11/13/24 10:00 11/14/24 08:14 Atorvastatin Calcium 20 Mg Tablet PO 20 mg DAILY SADE Administration Chlorhexidine Gluconate 15 ml 11/14/24 10:00 11/14/24 09:40 Chlorhexidine 15 Ml PO 15 ml BID SADE Administration Chlorhexidine Gluconate 1 each 11/14/24 10:00 11/14/24 10:12 Chlorhexidine Gluc 2% Cloth 1 Each Towelette TOPICAL 1 each DAILY SADE Administration Fentanyl Citrate 50 mcg 11/12/24 13:20 Fentanyl 100 Mcg/2 Ml Ampul IV Q2H PRN PRN See dose instructions Fluoxetine HCl 40 mg 11/13/24 10:00 11/14/24 08:14 Fluoxetine Hcl 40 Mg Capsule PO 40 mg DAILY SADE Administration Fluoxetine HCl 20 mg 11/13/24 10:00 11/14/24 08:15 Fluoxetine 20 Mg Capsule PO 20 mg DAILY SADE Administration Hydralazine HCl 10 mg 11/12/24 17:32 Hydralazine 20 Mg/Ml Vial IV Q4H PRN PRN SBP GREATER THAN 170 Protocol Propofol 1,000 mg in 100 mls @ 5.814 mls/hr 11/12/24 13:20 11/14/24 11:00 Diprivan CONT INF 20 mcg/kg/min .Q12H SADE 11.6 mls/hr Titration Protocol 10 MCG/KG/MIN Vancomycin IV-PHARMACY TO DOSE 500 mls @ 250 mls/hr 11/12/24 17:32 1 each/ Sodium Chloride IV PRN PRN Rx to Dose Protocol Fentanyl 100 mls @ 5 mls/hr 11/12/24 19:40 11/14/24 11:29 CONT INF 200 mcg/hr UD SADE 20 mls/hr Administration Protocol 50 MCG/HR Norepinephrine Bitartrate 8 mg 250 mls @ 9.375 mls/hr 11/13/24 05:45 11/14/24 10:05 / Sodium Chloride CONT INF Infused .[id number] SADE Titration Protocol 5 MCG/MIN Lactated Ringer's 1,000 mls @ 100 mls/hr 11/13/24 06:15 11/14/24 02:38 IV 100 mls/hr .Q10H SADE Administration Dexmedetomidine HCl 1,000 mcg/ 250 mls @ 12.113 mls/hr 11/13/24 13:00 11/14/24 10:00 Sodium Chloride CONT INF 1.5 mcg/kg/hr .[id number] SADE 36.3 mls/hr Titration Protocol 0.5 MCG/KG/HR Cefepime HCl 1 gm/ Sodium 50 mls @ 100 mls/hr 11/13/24 11:00 11/14/24 10:14 Chloride IV Infused Q12 SADE Infusion Losartan Potassium 25 mg 11/14/24 10:30 Losartan Potassium 25 Mg Tablet PO DAILY SADE Protocol Methylprednisolone Sodium Succinate 40 mg 11/12/24 22:00 11/14/24 06:28 Methylprednisolone Sod Succ 40 Mg/Ml Vial IV 40 mg Q8 SADE Administration Metoprolol Tartrate 25 mg 11/12/24 22:00 11/14/24 08:14 Metoprolol Tartrate 25 Mg Tablet PO 25 mg BID SADE Administration Protocol Montelukast Sodium 10 mg 11/13/24 10:00 11/14/24 08:15 Montelukast 10 Mg Tablet PO 10 mg DAILY SADE Administration Ondansetron HCl 4 mg 11/12/24 17:32 Ondansetron 4 Mg/2 Ml Vial IV Q8H PRN PRN NAUSEA/VOMITING Pantoprazole Sodium 20 mg 11/13/24 10:00 11/14/24 08:15 Pantoprazole Sodium 20 Mg Tablet PO 20 mg DAILY SADE Administration Pregabalin 300 mg 11/12/24 22:00 11/14/24 09:40 Pregabalin 75 Mg Capsule PO 300 mg BID SADE Administration Ranolazine 500 mg 11/12/24 22:00 11/14/24 08:14 Ranolazine 500 Mg Tablet PO 500 mg BID SADE Administration Sodium Chloride 10 - 40 ml 11/12/24 18:57 11/13/24 22:27 0.9% Saline Lock 10 Ml Syringe IV 40 ml UD PRN Administration SALINE FLUSH Vancomycin Protocol 1 lab 11/14/24 17:30 Vancomycin Trough/Random Due MC 11/14/24 19:30 DAILY [facility] Lab / Micro Data Attestation: I reviewed the patient's lab results. 11/14/24 06:30 11/14/24 06:30 Labs: Laboratory Results - last 24 hr 11/13/24 12:10: Troponin T Hi Sens 4Hr 540 H* 11/14/24 06:30: WBC 14.4 H, RBC 2.83 L, Hgb 8.0 L, Hct 25.1 L, MCV 88.7, MCH 28.3, MCHC 31.9 L, RDW Std Deviation 50.3 H, RDW Coeff of Beto 15.5 H, Plt Count 193, MPV 12.9 H, Immature Gran % (Auto) 1.500 H, Neut % (Auto) 88.4 H, Lymph % (Auto) 3.4 L, [place] % (Auto) 6.5, Eos % (Auto) 0.1, Baso % (Auto) 0.1, Absolute Neuts (auto) 12.8 H, Absolute Lymphs (auto) 0.49 L, Nucleated RBC % 0.1, Sodium 141, Potassium 4.0, Chloride 112 H, Carbon Dioxide 14.3 L, Anion Gap 14, BUN 37 H, Creatinine 1.55 H, Estim Creat Clear Calc 50.22, Est GFR (MDRD) Non-Af 42 L, BUN/Creatinine Ratio 24.0 H, Glucose 163 H, Calcium 8.0, Vancomycin Trough 24.9 H 11/14/24 07:50: Iron 12 L, TIBC 329, Iron Saturation 4.0 L, Unsaturated IBC 317, Ferritin 129, Vitamin B12 550, TSH 1.420 Micro: Microbiology 11/12/24 15:11 Blood Culture (Wb) - Left Hand Bacteria Detection (PCR) - Preliminary Staphylococcus epidermidis mecA Resistance Marker 11/12/24 15:11 Blood Culture (Wb) - Left Hand Blood Culture - Preliminary Coag Negative Staph 11/12/24 Unknown Sputum, Induced/Lukens Gram Stain - Final ABG Data Attestation: I personally reviewed and interpreted this ABG as follows: Rhythm Strip Rhythm Strip: Sinus Rhythm Rate: 70 Ectopy: None Imaging Radiology Impression Echocardiogram 11/13/24 06:26 Interpretation Summary The estimated ejection fraction is 35 %. Base of the LV is wiliam well. Rest of the LV is severely hypokinetic LV apical thrombus cannot be excluded Trivial mitral valve insufficiency. Ordering Physician: Ranulfo Ramsay Referring Physician: Bill Dai Performed By: Amber Salmeron, DEIDRA, RVT Assessment and Plan . Assessment and plan: 1. Acute on Chronic Hypoxemic Respiratory Failure 2. Altered Mental Status 3. Shock 4. Acute Kidney Injury, resolving 5. Chart Diagnosis of Congestive Heart Failure/ Pulmonary Hypertension 6. Bicuspid Aortic Valve s/p Repair 7. History of Deep Vein Thrombosis on Eliquis 7. Interstitial Lung Disease Presumed Secondary to ARDS 8. Prior Cerebrovascular Accident 9. 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 Seizure Disorder not on AEDs PLAN 1. Vent check made; blood gases reviewed 2. will need more sedation- resume propofol, add NE drip if needed to maintain MAP 3. Continue Broad ABx; cultures pending 4. No indication for IV steroids 5. CT chest with no acute process; bilateral upper lobe fibrosis most likely secondary to ARDS 6. Cr trending down; baseline normal 7. ICU px: Eliquis/PPI Critical Care Time: 50 minutes The entirety of this encounter was done via Telemedicine Physical Exam Const General Appearance: in distress, uncooperative and combative HEENT External Ear: external ears normal Mouth: endotracheal tube in place and OG tube in place Eyes EOMs intact bilaterally and no scleral icterus Chest inspection of chest normal Resp Effort and Inspection: symmetric chest movement Cardio regular rate Subjective Subjective Events reviewed; she is struggling against the vent, thrashing about and in need of deeper sedation. Propofol had been switched to precedex yesterday due to concerns over hypotension.
[2024-11-14] MEDS: Propofol 10MG/Ml 1,000 MG/100 ML Bottle 11.6 MG CONT INF (15:21)
[2024-11-14 18:41] LABS: Vancomycin, Random Level 19.4 ug/mL (0.0-15.0)
--- NOTE | 2024-11-14 18:50 | PCM.RX.CS ---
Consult Antibiotic Management Pharmacy has been consulted to manage selected antibiotic: Vancomycin Type of Intervention Type of Consult: Follow-up Labs Labs: Sodium 141 mmol/L (133-145) 11/14/24 06:30 Potassium 4.0 mmol/L (3.3-5.1) 11/14/24 06:30 Chloride 112 mmol/L (98-108) H 11/14/24 06:30 Carbon Dioxide 14.3 mmol/L (21.0-32.0) L 11/14/24 06:30 Anion Gap 14 (5-15) 11/14/24 06:30 BUN 37 mg/dL (4-19) H 11/14/24 06:30 Creatinine 1.55 mg/dL (0.70-1.20) H 11/14/24 06:30 Est GFR (MDRD) Non-Af 42 (>60) L 11/14/24 06:30 BUN/Creatinine Ratio 24.0 RATIO (10-20) H 11/14/24 06:30 Glucose 163 mg/dL (70-99) H 11/14/24 06:30 Vancomycin Trough 24.9 ug/mL (5.0-15.0) H 11/14/24 06:30 Random Vancomycin 19.4 ug/mL (0.0-15.0) H 11/14/24 17:50 Microbiology Microbiology: Microbiology 11/12/24 15:11 Blood Culture (Wb) - Left Hand Bacteria Detection (PCR) - Preliminary Staphylococcus epidermidis mecA Resistance Marker 11/12/24 15:11 Blood Culture (Wb) - Left Hand Blood Culture - Preliminary Coag Negative Staph 11/12/24 Unknown Sputum, Induced/Lukens Gram Stain - Final 11/12/24 Unknown Sputum, Induced/Lukens Respiratory Culture - Preliminary Staphylococcus aureus 11/12/24 19:37 Mucosa - Nose Respiratory Panel (PCR) - Final Pharmacy Plan for Drug Dosing Pharmacy Plan for Drug Dosing: VANCOMYCIN LEVEL RECEIVED Current Vancomycin Dose: on hold (previously 750mg q12) Number of Doses Received: 3 Vancomycin Level: 19.4 MG/DL Hours Since Last Dose: 22 Renal Function: SCr 1.55mg/dL, CrCl 50 mL/min Renal Function Trend: improved Lab/Micro: blood cx 1/2 MRSE, sputum cx pending Vancomycin Plan/Comments: 22 hour random level was therapeutic at 19.4 mg/dL (goal 15-20). Will resume dosing at 500mg Q12 (@1999) and get a trough prior to 4th dose of new regimen. Will start dose later to give level more time to come down. Pending Level: 11/16/24 @ 2529 Pharmacy Service will continue to monitor and adjust dosing as required.
[2024-11-14] MEDS: Vancomycin IV 500 MG/100 ML BAG 100 MG IV (19:03)
[2024-11-14] MEDS: fentaNYL drip 100 ML 17.5 MCG CONT INF (23:00)
[2024-11-15] VITALS (39 sets, daily range): BP systolic 94–144; BP diastolic 66–103; PULSE 59–101; RESP 13–23; TEMP 37–38.4; O2SAT 90–100; BMI 40.1
[2024-11-15] MEDS: CHLORHEXIDINE GLUC 2% CLOTH 1 EACH TOWELETTE TOPICAL (00:46)
[2024-11-15 05:51] LABS: Hematocrit 27.2 % (37-47); Hemoglobin 8.5 g/dL (12.0-15.0); Immature Granulocytes Count 0.280 X10^3/uL (0.0-0.0); Mean Corp Hgb Conc 31.3 g/dL (32-36); Mean Corpuscular Volume 88.3 fL (81-99); Mean Platelet Vol. 12.3 fl (6.2-12.0); NRBC Flagged by Analyzer 0.9 % (0-5); POSITIVE DIFFERENTIAL YES; Platelet Count 170 K/mm3 (150-450); RBC Distribution Width CV 15.3 % (11.6-14.6); RBC Distribution Width SD 49.6 fl (35.1-43.9); Red Blood Count 3.08 M/mm3 (4.2-5.4); White Blood Count 11.8 K/mm3 (4.4-11.0)
[2024-11-15] MEDS: fentaNYL drip 100 ML 15 MCG CONT INF (05:51)
[2024-11-15] MEDS: Propofol 10MG/Ml 1,000 MG/100 ML Bottle 5.8 MG CONT INF (05:56)
[2024-11-15 06:28] LABS: Anion Gap 15 (5-15); BUN 35 mg/dL (4-19); BUN/Creat Ratio 25.8 RATIO (10-20); Calcium,Total 8.7 mg/dL (7.6-11.0); Carbon Dioxide 15.4 mmol/L (21.0-32.0); Chloride 108 mmol/L (98-108); Estimated Creatinine Clearance 57.62 ml/min (50-250); Glucose 166 mg/dL (70-99); Potassium 4.2 mmol/L (3.3-5.1)
[2024-11-15] MEDS: Dexmedetomidine 1,000 mcg in 0.9% NS 240 mL 36.3 MCG CONT INF (06:30)
--- NOTE | 2024-11-15 06:53 | PCM.PN.HOSP ---
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 Objective Data Objective Data Vital Signs: Vital Signs Temp Pulse Resp BP Pulse Ox O2 Del Method O2 Flow Rate 37.0 C 63 22 H 134/102 H 94 Mechanical Ventilator 2 11/15/24 05:00 11/15/24 05:56 11/15/24 05:56 11/15/24 05:00 11/15/24 05:56 11/15/24 05:00 11/12/24 12:52 FiO2 11/15/24 05:56 Oxygen Flow Rate (L/min) 2 Oxygen Delivery Method Mechanical Ventilator Weight: 102.7 kg Body Mass Index (BMI) 40.1 Intake & Output: Intake and Output for Last 24 Hours 11/13/24 11/14/24 11/15/24 23:59 23:59 23:59 Intake Total 2998.62 / 3154.92 5022.54 / 5130.80 496.50 / 496.50 Output Total 1375 / 1375 375 / 475 225 / 225 Balance 1623.62 / 1779.92 4647.54 / 4655.80 271.50 / 271.50 Lab / Micro Data 11/15/24 05:42 11/15/24 05:42 Labs: Laboratory Results - last 24 hr 11/14/24 06:30: Sodium 141, Potassium 4.0, Chloride 112 H, Carbon Dioxide 14.3 L, Anion Gap 14, BUN 37 H, Creatinine 1.55 H, Estim Creat Clear Calc 50.22, Est GFR (MDRD) Non-Af 42 L, BUN/Creatinine Ratio 24.0 H, Glucose 163 H, Calcium 8.0, Vancomycin Trough 24.9 H 11/14/24 07:50: Iron 12 L, TIBC 329, Iron Saturation 4.0 L, Unsaturated IBC 317, Ferritin 129, Vitamin B12 550, TSH 1.420 11/14/24 17:50: Random Vancomycin 19.4 H 11/15/24 05:42: WBC 11.8 H, RBC 3.08 L, Hgb 8.5 L, Hct 27.2 L, MCV 88.3, MCH 27.6, MCHC 31.3 L, RDW Std Deviation 49.6 H, RDW Coeff of Beto 15.3 H, Plt Count 170, MPV 12.3 H, Immature Gran % (Auto) 2.400 H, Neut % (Auto) 88.4 H, Lymph % (Auto) 4.7 L, [place] % (Auto) 4.3, Eos % (Auto) 0.1, Baso % (Auto) 0.1, Absolute Neuts (auto) 10.4 H, Absolute Lymphs (auto) 0.56 L, Nucleated RBC % 0.9, Sodium 139, Potassium 4.2, Chloride 108, Carbon Dioxide 15.4 L, Anion Gap 15, BUN 35 H, Creatinine 1.37 H, Estim Creat Clear Calc 57.62, Est GFR (MDRD) Non-Af 48 L, BUN/Creatinine Ratio 25.8 H, Glucose 166 H, Calcium 8.7 Micro: Microbiology 11/12/24 15:11 Blood Culture (Wb) - Left Hand Bacteria Detection (PCR) - Preliminary Staphylococcus epidermidis mecA Resistance Marker 11/12/24 15:11 Blood Culture (Wb) - Left Hand Blood Culture - Preliminary Coag Negative Staph 11/12/24 Unknown Sputum, Induced/Lukens Gram Stain - Final 11/12/24 Unknown Sputum, Induced/Lukens Respiratory Culture - Preliminary Staphylococcus aureus 11/12/24 19:37 Mucosa - Nose Respiratory Panel (PCR) - Final Rhythm Strip Rhythm Strip: Sinus Rhythm Rate: 70 Ectopy: None Physical Exam Const alert and no apparent distress HEENT head/scalp atraumatic and moist oral mucous membranes Resp normal respiratory effort and no retractions Resp Narrative: coarse breath sounds bilaterally. Cardio regular rate, regular rhythm, S1 normal heart sound and S2 normal heart sound GI normal to inspection, nondistended, normoactive bowel sounds, soft to palpation, non-tender and non-distended Extremity normal to inspection and full ROM Assessment & Plan Assessment/Plan (1) Acute respiratory failure: QUALIFIERS: Respiratory failure complication: hypoxia Qualified Code(s): J96.01 - Acute respiratory failure with hypoxia PLAN: Possible pneumonia. Along with interstitial lung disease. Intubated. Wean oxygen as tolerated. On cefepime, vancomycin, BDs, methylprednisolone. (2) Acute metabolic encephalopathy: PLAN: Secondary to underlying illness but possibility of toxic component SARS-CoV-2 the Rx screen positive for BZDs and cannabinoids. Head CT w/o acute process. Patient very agitated despite abdominal drip and dexmedetomidine drip. Propofol being added back. Will need to monitor closely for hypotension. (3) Rhabdomyolysis: PLAN: Mild CPK elevation. On IVF. (4) Acute renal failure: PLAN: Improved with IVF. US showed right nephrolithiasis w/o hydronephrosis (5) Septic shock: PLAN: Unclear source, though would favor pneumonia at this point. UA unremarkable for UTI. Follow up cultures. 1of 2 blood cultures from the positive for S. epi (likely contaminant) on norepinephrine gtt. (6) NSTEMI, initial episode of care: PLAN: Troponins not ordered on admission. Initial troponin this AM was 727. Already anticoagulated with apixaban. Echo shows an EF 35%. Base of LV wiliam well, but remainder is severely hypokinetic. Cannot rule out LV thrombus. Markedly reduced from 12/2023 when is was 65%. Cardiology following and recommending medical management at this time with initiation of losartan 25 daily, metoprolol continued at 25 twice daily. (7) ABLA (acute blood loss anemia): PLAN: Hg went from 11.1 to 8 today At least partially dilutional. Previously, Hg has been around 9.7 in 12/2023. Checkhemoccult. Iron low at 12, ferritin 129. TSH 1.42. B12 normal at 550. Folates pending. Will give dose of one-time of iron sucrose 100 mg. (8) Pneumonia: PLAN: SCx + S. aureus. Continue abx with cefepime and vancomycin PLAN: Plan Chronic conditions: DVT: apixaban. pulmonary hypertension: unclear type. Though previously may have been group 3. VTE prophylaxis: with apixaban. Charges/Coding Visit Charges Inpatient E&M: 55829 Subs Hosp L2
--- NOTE | 2024-11-15 07:26 | PCM.PN.INT ---
Assessment & Plan Assessment/Plan (1) Acute on chronic respiratory failure with hypoxemia: PLAN: Plan RECOMMENDATIONS: 1. Continue assist-control mode mechanical ventilation. Wean FiO2 and PEEP as tolerated. 2. Start scheduled Seroquel today. In the interim, continue current sedation regimen including propofol, Precedex and fentanyl. 3. Stop continuous IV fluids. 4. Consider trial of diuretics given volume status. 5. Tube feeding as tolerated. 6. Continue scheduled bronchodilators and IV steroids. 7. Continue Eliquis per home regimen along with PPI for GI prophylaxis. IMPRESSIONS: 1. Acute on chronic hypoxemic respiratory failure Likely related to known history of interstitial lung disease with superimposed pneumonia contributing. In addition, the patient has a questionable history of COPD of unclear severity. Recommend continuing supportive care including invasive mechanical ventilatory support, with a goal to wean FiO2 and PEEP to maintain saturations at or above 90%. Will plan to continue empiric antibiotics, scheduled bronchodilators and IV steroids. 2. Acute kidney injury Most likely prerenal in etiology. Creatinine has improved with volume expansion. However, the patient's volume status is significantly elevated now. Recommend discontinuing IV fluids. 3. History of heart failure with preserved ejection fraction/COPD of unclear severity Continue current supportive measures including scheduled bronchodilators and steroids. Recommend considering initiation of gentle diuresis, as tolerated by hemodynamics and renal function. 4. History of tobacco dependency/chronic pain syndrome/obesity/history of respiratory failure requiring tracheostomy/history of DVT on Eliquis/history of leiomyosarcoma Complicates care, management, recovery and prognosis. Continue supportive measures as noted above. PT/OT to work with the patient. Tube feeding as tolerated for nutritional support. TIME: 37 minutes of critical care time, independent of procedures, was spent addressing the patient's acute on chronic hypoxemic respiratory failure, acute kidney injury, review of all data and collaboration with the care team. Subjective Subjective The patient was seen and examined at the bedside this morning. Events from the last 24 hours have been reviewed. The patient is currently afebrile, hemodynamically stable and maintaining appropriate oxygen saturations on assist-control mode mechanical ventilation with an FiO2 requirement of 25% and PEEP of 5. The patient is currently sedated on propofol, Precedex and fentanyl. She is documented to be overall net +11.3 L for the hospitalization. White blood cell count has improved to 11,000. Hemoglobin is stable at 8.5 g/dL. Creatinine is stable at 1.37. The patient remains on antimicrobials, scheduled bronchodilators and IV steroids. The patient has an apparent history of respiratory failure related to ARDS secondary to pneumonia, which required tracheostomy at [facility] in 2022. The patient has since been decannulated. She is followed on an outpatient basis by Dr. Janine Robertson of [facility] pulmonary medicine. Objective Data Objective Data The patient's most recent lab work, culture data and imaging studies have all been personally reviewed. Surface echocardiogram revealed normal LV size with a questionable left apical thrombus and an ejection fraction of 35%. Sputum culture was positive for 3+ Staphylococcus aureus. Vital Signs: Vital Signs Temp Pulse Resp BP Pulse Ox O2 Del Method O2 Flow Rate 98.6 F 62 22 H 134/102 H 94 Mechanical Ventilator 2 11/15/24 05:00 11/15/24 07:00 11/15/24 07:00 11/15/24 05:00 11/15/24 07:00 11/15/24 05:00 11/12/24 12:52 FiO2 25 11/15/24 07:00 Oxygen Flow Rate (L/min) 2 Oxygen Delivery Method Mechanical Ventilator Weight: 226 lb 6.636 oz Body Mass Index (BMI) 40.1 Intake & Output: Intake and Output for Last 24 Hours 11/13/24 11/14/24 11/15/24 23:59 23:59 23:59 Intake Total 2998.62 / 3154.92 5022.54 / 5130.80 496.50 / 496.50 Output Total 1375 / 1375 375 / 475 225 / 225 Balance 1623.62 / 1779.92 4647.54 / 4655.80 271.50 / 271.50 Lab / Micro Data Attestation: I reviewed the patient's lab results. 11/15/24 05:42 11/15/24 05:42 Labs: Laboratory Results - last 24 hr 11/14/24 06:30: Sodium 141, Potassium 4.0, Chloride 112 H, Carbon Dioxide 14.3 L, Anion Gap 14, BUN 37 H, Creatinine 1.55 H, Estim Creat Clear Calc 50.22, Est GFR (MDRD) Non-Af 42 L, BUN/Creatinine Ratio 24.0 H, Glucose 163 H, Calcium 8.0, Vancomycin Trough 24.9 H 11/14/24 07:50: Iron 12 L, TIBC 329, Iron Saturation 4.0 L, Unsaturated IBC 317, Ferritin 129, Vitamin B12 550, TSH 1.420 11/14/24 17:50: Random Vancomycin 19.4 H 11/15/24 05:42: WBC 11.8 H, RBC 3.08 L, Hgb 8.5 L, Hct 27.2 L, MCV 88.3, MCH 27.6, MCHC 31.3 L, RDW Std Deviation 49.6 H, RDW Coeff of Beto 15.3 H, Plt Count 170, MPV 12.3 H, Immature Gran % (Auto) 2.400 H, Neut % (Auto) 88.4 H, Lymph % (Auto) 4.7 L, [place] % (Auto) 4.3, Eos % (Auto) 0.1, Baso % (Auto) 0.1, Absolute Neuts (auto) 10.4 H, Absolute Lymphs (auto) 0.56 L, Nucleated RBC % 0.9, Sodium 139, Potassium 4.2, Chloride 108, Carbon Dioxide 15.4 L, Anion Gap 15, BUN 35 H, Creatinine 1.37 H, Estim Creat Clear Calc 57.62, Est GFR (MDRD) Non-Af 48 L, BUN/Creatinine Ratio 25.8 H, Glucose 166 H, Calcium 8.7 Micro: Microbiology 11/12/24 15:11 Blood Culture (Wb) - Left Hand Bacteria Detection (PCR) - Preliminary Staphylococcus epidermidis mecA Resistance Marker 11/12/24 15:11 Blood Culture (Wb) - Left Hand Blood Culture - Preliminary Coag Negative Staph 11/12/24 Unknown Sputum, Induced/Lukens Gram Stain - Final 11/12/24 Unknown Sputum, Induced/Lukens Respiratory Culture - Preliminary Staphylococcus aureus 11/12/24 19:37 Mucosa - Nose Respiratory Panel (PCR) - Final Rhythm Strip Rhythm Strip: Sinus Rhythm Rate: 70 Ectopy: None Physical Exam Const Constitutional Narrative: Intubated, sedated and mechanically ventilated. General Appearance: ill appearing HEENT normocephalic and head/scalp atraumatic Mouth: endotracheal tube in place and OG tube in place Eyes PERRL and EOMs intact bilaterally Neck supple General: trachea midline Chest inspection of chest normal Resp Auscultation: diminished lung sounds; Negative for rales, rhonchi or wheezes Cardio regular rate and regular rhythm GI normal to inspection, nondistended, normoactive bowel sounds Extremity no clubbing, cyanosis or edema Skin no rashes or lesions noted Neuro Sensorium / Orientation: sedated on vent Charges/Coding Procedures Hospitalists Procedures: [id number] Critical Care 1st Hr
--- NOTE | 2024-11-15 08:25 | RAD_ITS ---
PROCEDURE: CHEST 1 VIEW (PORTABLE) 11/15/2024 REASON FOR EXAM: RESPIRATORY FAILURE TECHNIQUE: Frontal view of the chest. COMPARISON: November 12, 2024 FINDINGS: There is an ET tube in position with its tip 2.6 cm above the level of the joseluis. There is an enteric tube with its tip below the field of view of this exam. Sternotomy wires are noted. Heart size is upper normal. Central vascularity is increased. There is interstitial and alveolar infiltrate throughout the right and left lung. Lung volumes are decreased. There is no pneumothorax or effusion. There is no visible acute bony abnormality. RAD/Chest 1 View (Portable) IMPRESSION: Heart size is upper normal. Central vascularity is increased. There is interstitial and alveolar infiltrate throughout the right and left kelsi g. Lung volumes are decreased. Reading Location: [facility]
[2024-11-15] MEDS: Lactated Ringers 1,000 ML 100 ML IV (08:36)
[2024-11-15] MEDS: TITRATION PARAMETER CHANGE 1 EACH IV (08:36)
[2024-11-15] MEDS: Vancomycin IV 500 MG/100 ML BAG 100 MG IV ×2 (08:39→20:36)
[2024-11-15 10:44] LABS: Allen Test Positive; Base Excess -8 mmol/L (-2 to +2); FI02 45.0; PEEP 8; PO2 63 mmHG (75-100); RR 18; SITE R Radial; SO2 90 % (95-99)
[2024-11-15] MEDS: APIXABAN 5 MG TABLET PO ×2 (11:04→21:39)
[2024-11-15] MEDS: Pantoprazole Sodium 40 MG in 0.9% Normal Saline (100mL MB+) 100 ML 300 MG IV (11:12)
[2024-11-15] MEDS: Chlorhexidine 15 ML PO ×2 (11:38→20:50)
[2024-11-15] MEDS: Cefepime HCl 1 GM in 0.9% Normal Saline (50mL MB+) 50 ML IV ×2 (11:49→21:39)
[2024-11-15 12:59] LABS: Pro- Brain NATRIURETIC PEPTIDE 29654 pg/mL (<=450)
[2024-11-15] MEDS: fentaNYL drip 100 ML 17.5 MCG CONT INF ×2 (13:03→19:00)
[2024-11-15] MEDS: Dexmedetomidine 1,000 mcg in 0.9% NS 240 mL 38.5 MCG CONT INF ×2 (13:06→20:00)
[2024-11-15 13:26] LABS: Base Excess -6 mmol/L (-2 to +2); FI02 60.0; PEEP 10; PO2 106 mmHG (75-100); RR 14; SITE R Brach; SO2 98 % (95-99)
[2024-11-15] MEDS: Vital High Protein 1,000 ML 15 ML GT (14:32)
[2024-11-15] MEDS: Propofol 10MG/Ml 1,000 MG/100 ML Bottle 12.3 MG CONT INF (14:48)
[2024-11-15] MEDS: 0.9% Saline Lock 10 ML Syringe IV (20:50)
[2024-11-15] MEDS: Propofol 10MG/Ml 1,000 MG/100 ML Bottle 9.2 MG CONT INF (23:17)
[2024-11-16] VITALS (34 sets, daily range): BP systolic 97–124; BP diastolic 71–88; PULSE 66–81; RESP 9–24; TEMP 37.5–38.1; O2SAT 90–100; BMI 39.0
--- NOTE | 2024-11-16 00:25 | NURSING ---
2315- pt w/ 230cc residual from OG, brown in color w/ metallic odor. Dr. Tai notified and gastric occult ordered. Gastric occult was positive. GI consulted and no changes to scheduled protonix. Tube feed held @ this time
[2024-11-16] MEDS: fentaNYL drip 100 ML 17.5 MCG CONT INF ×5 (01:00→23:47)
[2024-11-16] MEDS: Dexmedetomidine 1,000 mcg in 0.9% NS 240 mL 38.5 MCG CONT INF (03:00)
[2024-11-16] MEDS: CHLORHEXIDINE GLUC 2% CLOTH 1 EACH TOWELETTE TOPICAL (03:09)
[2024-11-16 03:31] LABS: Hematocrit 27.0 % (37-47); Hemoglobin 8.4 g/dL (12.0-15.0); Immature Granulocytes Count 0.250 X10^3/uL (0.0-0.0); Mean Corp Hgb Conc 31.1 g/dL (32-36); Mean Corpuscular Volume 88.5 fL (81-99); Mean Platelet Vol. 12.9 fl (6.2-12.0); NRBC Flagged by Analyzer 0.4 % (0-5); POSITIVE DIFFERENTIAL YES; Platelet Count 167 K/mm3 (150-450); RBC Distribution Width CV 15.2 % (11.6-14.6); RBC Distribution Width SD 48.9 fl (35.1-43.9); Red Blood Count 3.05 M/mm3 (4.2-5.4); White Blood Count 13.4 K/mm3 (4.4-11.0)
[2024-11-16 04:44] LABS: Anion Gap 14 (5-15); BUN 35 mg/dL (4-19); BUN/Creat Ratio 23.1 RATIO (10-20); Calcium,Total 8.5 mg/dL (7.6-11.0); Carbon Dioxide 21.0 mmol/L (21.0-32.0); Chloride 103 mmol/L (98-108); Estimated Creatinine Clearance 51.83 ml/min (50-250); Glucose 204 mg/dL (70-99); Potassium 3.8 mmol/L (3.3-5.1)
[2024-11-16] MEDS: 0.9% Saline Lock 10 ML Syringe IV (06:03)
--- NOTE | 2024-11-16 06:54 | PN.CC_ITS ---
Assessment & Plan Assessment/Plan (1) Acute on chronic respiratory failure with hypoxemia: PLAN: Plan RECOMMENDATIONS: 1. Continue assist-control mode mechanical ventilation. Wean FiO2 and PEEP as tolerated. 2. Continue scheduled Seroquel along with current sedation regimen including propofol, Precedex and fentanyl. 3. Ongoing attempts at diuresis, as tolerated by hemodynamics and renal function. 4. Continue scheduled bronchodilators and steroids. 5. Continue Eliquis per home regimen along with PPI for GI prophylaxis. IMPRESSIONS: 1. Acute on chronic hypoxemic respiratory failure Likely related to known history of interstitial lung disease with superimposed pneumonia contributing. In addition, the patient has a questionable history of COPD of unclear severity. Recommend continuing supportive care including invasive mechanical ventilatory support, with a goal to wean FiO2 and PEEP to maintain saturations at or above 90%. Will plan to continue empiric antibiotics, scheduled bronchodilators and IV steroids. 2. Acute kidney injury Most likely prerenal in etiology. Creatinine has improved with volume expansion. However, the patient's volume status is significantly elevated now. Recommend discontinuing IV fluids. 3. History of heart failure with preserved ejection fraction/COPD of unclear severity Continue current supportive measures including scheduled bronchodilators and steroids. Continue attempts at volume optimization with IV diuretics, as tolerated by hemodynamics and renal function. 4. History of tobacco dependency/chronic pain syndrome/obesity/history of respiratory failure requiring tracheostomy/history of DVT on Eliquis/history of leiomyosarcoma Complicates care, management, recovery and prognosis. Continue supportive measures as noted above. PT/OT to work with the patient. TIME: 35 minutes of critical care time, independent of procedures, was spent addressing the patient's acute on chronic hypoxemic respiratory failure, acute kidney injury, review of all data and collaboration with the care team. Subjective Subjective The patient was seen and examined at the bedside this morning. Events from the last 24 hours have been reviewed. The patient is currently afebrile, hemodynamically stable and maintaining appropriate oxygen saturations on assist- control mode mechanical ventilation with an FiO2 requirement of 40% and PEEP of 8. The patient remains overall net +8.1 L for the hospitalization. White blood cell count is mildly elevated at 13,000. Hemoglobin is stable at 8.4 g/dL. The patient remains on Precedex, fentanyl and propofol for sedation. Objective Data Objective Data The patient's most recent lab work, culture data and imaging studies have all been personally reviewed. Surface echocardiogram revealed normal LV size with a questionable left apical thrombus and an ejection fraction of 35%. Sputum culture was positive for 3+ Staphylococcus aureus. Vital Signs: Vital Signs Temp Pulse Resp BP Pulse Ox O2 Del Method O2 Flow Rate 99.7 F H 73 14 105/74 93 Mechanical Ventilator 2 11/16/24 06:00 11/16/24 06:00 11/16/24 06:00 11/16/24 06:00 11/16/24 06:00 11/16/24 06:00 11/12/24 12:52 FiO2 40 11/16/24 06:00 Oxygen Flow Rate (L/min) 2 Oxygen Delivery Method Mechanical Ventilator Weight: 220 lb 7.396 oz Body Mass Index (BMI) 39.0 Intake & Output: Intake and Output for Last 24 Hours 11/14/24 11/15/24 11/16/24 23:59 23:59 23:59 Intake Total 5022.54 / 5130.80 3328.05 / 3390.64 571.44 / 571.44 Output Total 375 / 475 4275 / 4825 1475 / 1475 Balance 4647.54 / 4655.80 -946.95 / -1434.36 -903.56 / -903.56 Lab / Micro Data Attestation: I reviewed the patient's lab results. 11/16/24 03:18 11/16/24 03:18 Labs: Laboratory Results - last 24 hr 11/12/24 10:50: Ur Random Sodium 25, Urine Creatinine 162.00 11/15/24 05:42: [place] [address] H 11/16/24 03:18: WBC 13.4 H, RBC 3.05 L, Hgb 8.4 L, Hct 27.0 L, MCV 88.5, MCH 27.5, MCHC 31.1 L, RDW Std Deviation 48.9 H, RDW Coeff of Beto 15.2 H, Plt Count 167, MPV 12.9 H, Immature Gran % (Auto) 1.900 H, Neut % (Auto) 88.8 H, Lymph % (Auto) 2.3 L, [place] % (Auto) 6.9, Eos % (Auto) 0.0, Baso % (Auto) 0.1, Absolute Neuts (auto) 11.9 H, Absolute Lymphs (auto) 0.31 L, Nucleated RBC % 0.4, Sodium 138, Potassium 3.8, Chloride 103, Carbon Dioxide 21.0, Anion Gap 14, BUN 35 H, C reatinine 1.50 H, Estim Creat Clear Calc 51.83, Est GFR (MDRD) Non-Af 43 L, B UN/Creatinine Ratio 23.1 H, Glucose 204 H, Calcium 8.5 Micro: Microbiology 11/15/24 23:20 Gastric Fluid/Contents Gastric Occult Blood - Final 11/12/24 Unknown Sputum, Induced/Lukens Gram Stain - Final 11/12/24 Unknown Sputum, Induced/Lukens Respiratory Culture - Preliminary Staphylococcus aureus 11/12/24 15:11 Blood Culture (Wb) - Left Hand Bacteria Detection (PCR) - Preliminary Staphylococcus epidermidis mecA Resistance Marker 11/12/24 15:11 Blood Culture (Wb) - Left Hand Blood Culture - Preliminary Coag Negative Staph Gram positive bebeto 11/12/24 19:37 Mucosa - Nose Respiratory Panel (PCR) - Final ABG Data ABG results: ABG 11/15/24 11/15/24 10:40 13:20 Specimen Type ART ART Sample Site R Radial R Brach pH 7.30 L 7.37 Bicarbonate Actual 18.6 L 19.3 L Total CO2 20 20 Base Excess -8 L -6 L O2 Saturation 90 L 98 O2 % 45.0 60.0 ABG pCO2 37.4 33.5 L ABG pO2 63 L 106 H Chris Test Positive N/A Respiration Rate 18 14 O2 Delivery Device Adult Vent Adult Vent Vent Mode AC AC/PC Tidal Volume 400.0 POC PEEP 8 10 Radiography Diagnostic Testing: Radiology Impression Chest X-Ray 11/15/24 08:25 IMPRESSION: Heart size is upper normal. Central vascularity is increased. There is interstitial and alveolar infiltrate throughout the right and left lung. Lung volumes are decreased. Reading Location: [facility] Rhythm Strip Rhythm Strip: Sinus Rhythm Rate: 70 Ectopy: None Physical Exam Const Constitutional Narrative: Intubated, sedated and mechanically ventilated. General Appearance: ill appearing HEENT normocephalic and head/scalp atraumatic Mouth: endotracheal tube in place and OG tube in place Eyes PERRL and EOMs intact bilaterally Neck supple General: trachea midline Chest inspection of chest normal Resp Auscultation: diminished lung sounds; Negative for rales, rhonchi or wheezes Cardio regular rate and regular rhythm GI normal to inspection, nondistended, normoactive bowel sounds Extremity no clubbing, cyanosis or edema Skin no rashes or lesions noted Neuro Sensorium / Orientation: sedated on vent Charges/Coding Procedures Hospitalists Procedures: [id number] Critical Care 1st Hr
--- NOTE | 2024-11-16 07:15 | PCM.PN.HOSP ---
Reason for Visit Reason for Visit: Diagnoses Sepsis, unspecified organism (11/12/24) Acute posthemorrhagic anemia (11/12/24) Metabolic encephalopathy (11/12/24) Non-ST elevation (NSTEMI) myocardial infarction (11/12/24) Other secondary pulmonary hypertension (11/12/24) Pneumonia, unspecified organism (11/12/24) Acute respiratory failure, unspecified whether with hypoxia or hypercapnia (11/12/24) Acute respiratory failure with hypoxia (11/12/24) Acute and chronic respiratory failure with hypoxia (11/12/24) Rhabdomyolysis (11/12/24) Acute kidney failure, unspecified (11/12/24) Severe sepsis with septic shock (11/12/24) Other specified abnormal findings of blood chemistry (11/12/24) [facility] (current) use of anticoagulants (11/12/24) Personal history of (corrected) congenital malformations of heart and circulatory system (11/12/24) Subjective Subjective Still on the vent. Objective Data Objective Data Vital Signs: Vital Signs Temp Pulse Resp BP Pulse Ox O2 Del Method O2 Flow Rate 37.6 C H 79 23 H 105/74 91 Mechanical Ventilator 2 11/16/24 06:00 11/16/24 07:10 11/16/24 07:10 11/16/24 06:00 11/16/24 07:10 11/16/24 06:00 11/12/24 12:52 FiO2 40 11/16/24 06:00 Oxygen Flow Rate (L/min) 2 Oxygen Delivery Method Mechanical Ventilator Weight: 100 kg Body Mass Index (BMI) 39.0 Intake & Output: Intake and Output for Last 24 Hours 11/14/24 11/15/24 11/16/24 23:59 23:59 23:59 Intake Total 5022.54 / 5130.80 3328.05 / 3390.64 583.94 / 583.94 Output Total 375 / 475 4275 / 4825 1475 / 1475 Balance 4647.54 / 4655.80 -946.95 / -1434.36 -891.06 / -891.06 Lab / Micro Data 11/16/24 03:18 11/16/24 03:18 Labs: Laboratory Results - last 24 hr 11/12/24 10:50: Ur Random Sodium 25, Urine Creatinine 162.00 11/15/24 05:42: [place] [address] H 11/16/24 03:18: WBC 13.4 H, RBC 3.05 L, Hgb 8.4 L, Hct 27.0 L, MCV 88.5, MCH 27.5, MCHC 31.1 L, RDW Std Deviation 48.9 H, RDW Coeff of Beto 15.2 H, Plt Count 167, MPV 12.9 H, Immature Gran % (Auto) 1.900 H, Neut % (Auto) 88.8 H, Lymph % (Auto) 2.3 L, [place] % (Auto) 6.9, Eos % (Auto) 0.0, Baso % (Auto) 0.1, Absolute Neuts (auto) 11.9 H, Absolute Lymphs (auto) 0.31 L, Nucleated RBC % 0.4, Sodium 138, Potassium 3.8, Chloride 103, Carbon Dioxide 21.0, Anion Gap 14, BUN 35 H, Creatinine 1.50 H, Estim Creat Clear Calc 51.83, Est GFR (MDRD) Non-Af 43 L, BUN/Creatinine Ratio 23.1 H, Glucose 204 H, Calcium 8.5 Micro: Microbiology 11/15/24 23:20 Gastric Fluid/Contents Gastric Occult Blood - Final 11/12/24 Unknown Sputum, Induced/Lukens Gram Stain - Final 11/12/24 Unknown Sputum, Induced/Lukens Respiratory Culture - Preliminary Staphylococcus aureus 11/12/24 15:11 Blood Culture (Wb) - Left Hand Bacteria Detection (PCR) - Preliminary Staphylococcus epidermidis mecA Resistance Marker 11/12/24 15:11 Blood Culture (Wb) - Left Hand Blood Culture - Preliminary Coag Negative Staph Gram positive bebeto 11/12/24 19:37 Mucosa - Nose Respiratory Panel (PCR) - Final ABG Data ABG results: ABG 11/15/24 11/15/24 10:40 13:20 Specimen Type ART ART Sample Site R Radial R Brach pH 7.30 L 7.37 Bicarbonate Actual 18.6 L 19.3 L Total CO2 20 20 Base Excess -8 L -6 L O2 Saturation 90 L 98 O2 % 45.0 60.0 ABG pCO2 37.4 33.5 L ABG pO2 63 L 106 H Chris Test Positive N/A Respiration Rate 18 14 O2 Delivery Device Adult Vent Adult Vent Vent Mode AC AC/PC Tidal Volume 400.0 POC PEEP 8 10 Radiography Diagnostic Testing: Radiology Impression Chest X-Ray 11/15/24 08:25 IMPRESSION: Heart size is upper normal. Central vascularity is increased. There is interstitial and alveolar infiltrate throughout the right and left lung. Lung volumes are decreased. Reading [facility] Rhythm Strip Rhythm Strip: Sinus Rhythm Rate: 70 Ectopy: None Physical Exam Const alert and no apparent distress HEENT head/scalp atraumatic and moist oral mucous membranes Resp normal respiratory effort, no retractions, no use of accessory muscles and clear to auscultation bilaterally Cardio regular rate, regular rhythm, S1 normal heart sound and S2 normal heart sound GI normal to inspection, nondistended, normoactive bowel sounds and soft to palpation Extremity normal to inspection and full ROM Neuro Sensorium / Orientation: awake and alert Assessment & Plan Assessment/Plan (1) Acute respiratory failure: QUALIFIERS: Respiratory failure complication: hypoxia Qualified Code(s): J96.01 - Acute respiratory failure with hypoxia PLAN: Possible pneumonia. Along with interstitial lung disease/COPD. Intubated. Wean oxygen as tolerated. On cefepime, vancomycin, BDs, methylprednisolone. Has received IV furosemide boluses. (2) Acute metabolic encephalopathy: PLAN: Secondary to underlying illness but possibility of toxic component SARS-CoV-2 the Rx screen positive for BZDs and cannabinoids. Head CT w/o acute process. Patient very agitated despite fentanyl, dexmedetomidine drip and propofol. Will need to monitor closely for hypotension. (3) Acute renal failure: PLAN: Improved with IVF. US showed right nephrolithiasis w/o hydronephrosis (4) Septic shock: PLAN: Suspected pneumonia UA unremarkable for UTI. Follow up cultures. 1of 2 blood cultures from the 20th positive for S. epi (likely contaminant) on norepinephrine gtt. (5) NSTEMI, initial episode of care: PLAN: Troponins not ordered on admission. Initial troponin this AM was 727. Already anticoagulated with apixaban. Echo shows an EF 35%. Base of LV wiliam well, but remainder is severely hypokinetic. Cannot rule out LV thrombus. Markedly reduced from 12/2023 when is was 65%. Cardiology following and recommending medical management at this time with initiation of losartan 25 daily, metoprolol continued at 25 twice daily. (6) ABLA (acute blood loss anemia): PLAN: Hg went from 11.1 to 8 today At least partially dilutional. Previously, Hg has been around 9.7 in 12/2023. Hemoccult negative. Iron low at 12, ferritin 129. TSH 1.42. B12 normal at 550. Folates pending. Received a one-time of iron sucrose 100 mg. (7) Pneumonia: PLAN: MSSA Continue abx with cefepime and vancomycin (8) HFrEF (heart failure with reduced ejection fraction): PLAN: Acute 2/2 to large volume received for shock. Has been receiving boluses of IV furosemide PLAN: Plan Chronic conditions: DVT: apixaban. pulmonary hypertension: unclear type. Though previously may have been group 3. VTE prophylaxis: with apixaban. Charges/Coding Visit Charges Inpatient E&M: 88901 [facility] Hosp L3
[2024-11-16] MEDS: Chlorhexidine 15 ML PO ×2 (08:51→21:26)
[2024-11-16] MEDS: Propofol 10MG/Ml 1,000 MG/100 ML Bottle 9 MG CONT INF ×3 (08:51→23:53)
[2024-11-16 09:47] LABS: Vancomycin, Trough Level 19.2 ug/mL (5.0-15.0)
--- NOTE | 2024-11-16 10:01 | PCM.RX.CS ---
Consult Antibiotic Management Pharmacy has been consulted to manage selected antibiotic: Vancomycin Type of Intervention Type of Consult: Follow-up Suspected Infection Suspected Infection: Pneumonia Prior Doses of Antibiotics Prior Doses of Antibiotics Received/Current Regimen: Vancomycin 500 mg Q12H last dose given 11/15/24 @ 2036 Labs Labs: Sodium 138 mmol/L (133-145) 11/16/24 03:18 Potassium 3.8 mmol/L (3.3-5.1) 11/16/24 03:18 Chloride 103 mmol/L (98-108) 11/16/24 03:18 Carbon Dioxide 21.0 mmol/L (21.0-32.0) 11/16/24 03:18 Anion Gap 14 (5-15) 11/16/24 03:18 BUN 35 mg/dL (4-19) H 11/16/24 03:18 Creatinine 1.50 mg/dL (0.70-1.20) H 11/16/24 03:18 Est GFR (MDRD) Non-Af 43 (>60) L 11/16/24 03:18 BUN/Creatinine Ratio 23.1 RATIO (10-20) H 11/16/24 03:18 Glucose 204 mg/dL (70-99) H 11/16/24 03:18 Vancomycin Trough 19.2 ug/mL (5.0-15.0) H 11/16/24 09:00 Random Vancomycin 19.4 ug/mL (0.0-15.0) H 11/14/24 17:50 Microbiology Microbiology: Microbiology 11/12/24 Unknown Sputum, Induced/Lukens Gram Stain - Final 11/12/24 Unknown Sputum, Induced/Lukens Respiratory Culture - Preliminary Staphylococcus aureus 11/15/24 23:20 Gastric Fluid/Contents Gastric Occult Blood - Final 11/12/24 15:11 Blood Culture (Wb) - Left Hand Bacteria Detection (PCR) - Preliminary Staphylococcus epidermidis mecA Resistance Marker 11/12/24 15:11 Blood Culture (Wb) - Left Hand Blood Culture - Preliminary Coag Negative Staph Gram positive bebeto 11/12/24 19:37 Mucosa - Nose Respiratory Panel (PCR) - Final Dosing Weight Weight used for dosin kg Estimated Creatinine Clearance Estimated Creatinine Clearance: ~ 52 Goal Trough Goal Trough: 15-20 mcg/mL Pharmacy Plan for Drug Dosing Pharmacy Plan for Drug Dosing: Vancomycin trough = 19.2, continue current dosing, trough in 2 days. Pharmacy Service will continue to monitor and adjust dosing as required. Follow-Up Labs Follow-Up Labs: Trough: Vancomycin Date/Time Labs Ordered Labs to be done on [date and time ordered]: 11/18/24 @ 0715
[2024-11-16] MEDS: Dexmedetomidine 1,000 mcg in 0.9% NS 240 mL 37.5 MCG CONT INF ×3 (10:17→23:47)
[2024-11-16] MEDS: Pantoprazole Sodium 40 MG in 0.9% Normal Saline (100mL MB+) 100 ML 330 MG IV (10:17)
[2024-11-16] MEDS: Senna/Docusate Sodium 1 Tablet 2 TABLET GT ×2 (10:22→21:28)
[2024-11-16] MEDS: Cefepime HCl 1 GM in 0.9% Normal Saline (50mL MB+) 50 ML IV ×2 (10:47→22:37)
[2024-11-16] MEDS: Vancomycin IV 500 MG/100 ML BAG 100 MG IV ×2 (11:21→21:24)
[2024-11-16 15:08] LABS: Folate, Hemolysate Test 310.0 ng/mL (Not Estab.); Folate, RBC (Hct) Test 27.4 % (34.0-46.6); Folates, RBC Test 1131 ng/mL (>498)
--- NOTE | 2024-11-16 18:09 | EX.PCM.CON.G ---
HPI Consult Data Date of Consult: 11/16/24 HPI Narrative Reason for Consultation: Anemia HPI Narrative: CONCEPCION CR, is a 44 F who presented with respiratory failure. She has a significant past medical history including CHF, DVT/PE (on Eliquis), seizures, pulmonary hypertension, fibromyalgia, aortic insufficiency, GERD, borderline personality and CKD stage IIIb. She is in the ICU intubated with hypoxic respiratory failure. Cardiology was called to see the patient due to increasing troponin up to 700. She is currently being seen by Dr. Arcadio Morales. And echocardiogram displayed a EF of 35%. She was diagnosed with Takotsubo cardiomyopathy. The patient is on Eliquis 5 mg twice daily. Due to a possible apical thrombus. I was asked to see her due to an increased BUN/creatinine ratio 35:1 0.5 and decrease in hemoglobin from 11.1-8.4. All of history obtained from the patient's chart and nursing staff as patient is intubated and sedated. [facility] Medical History Abnormal EKG CKD stage 3b, GFR 30-44 ml/min Anxiety Depression Kidney stones Kidney disease GERD (gastroesophageal reflux disease) Asthma Congestive heart failure (CHF) CHF (congestive heart failure) TIA (transient ischemic attack) (~2001) History of stroke (~2001) Non-rheumatic tricuspid valve insufficiency DDD (degenerative disc disease) History of bicuspid aortic valve Essential hypertension History of DVT of lower extremity History of pulmonary embolus (PE) Colitis Cough Chest pain Thrush Normochromic normocytic anemia Borderline personality disorder Pulmonary hypertension Seizure disorder ARDS (adult respiratory distress syndrome) Acute respiratory failure with hypoxia Hematemesis Leiomyosarcoma Syringomyelia Migraine Exercise-induced asthma Arthritis Anxiety disorder Fibromyalgia AI (aortic insufficiency) Home Medications Medication Instructions Recorded Last Taken Type medroxyprogesterone 150 mg/mL 150 mg IM .[id number] control 03/15/16 3 Weeks Ago History intramuscular syringe ~06/19/20 albuterol sulfate 90 mcg/actuation 1 puff inhalation Q4H PRN Sob &/Or 10/02/16 01/06/24 History aerosol inhaler Wheezing albuterol sulfate 2.5 mg/3 mL 2.5 mg (3 mL) inhalation Q4H PRN 04/15/19 01/06/24 Rx (0.083 %) solution for nebulization breathing #25 vials fluoxetine 40 mg capsule 40 mg PO DAILY DEPRESSION 07/10/20 01/06/24 History oxaprozin 600 mg tablet 600 mg PO BID PRN pain 07/10/20 01/06/24 History lisinopril 30 mg tablet 30 mg PO DAILY blood pressure 11/06/23 01/06/24 History montelukast 10 mg tablet 10 mg PO DAILY allergies 11/06/23 01/06/24 History ranolazine 500 mg tablet,extended 500 mg PO BID chest pain 11/06/23 01/06/24 History release,12 hr atorvastatin 20 mg tablet 20 mg PO DAILY cholesterol 12/29/23 01/06/24 History pregabalin 300 mg capsule 300 mg PO Q12H nerve pain 12/29/23 01/06/24 History ferrous gluconate 324 mg (38 mg 324 mg PO DAILY #30 tabs 01/01/24 01/06/24 Rx iron) tablet budesonide-formoterol HFA 160 2 puff inhalation DAILY 01/06/24 01/06/24 History mcg-4.5 mcg/actuation aerosol inhaler (Symbicort) fluoxetine 20 mg tablet 20 mg PO DAILY 01/06/24 01/06/24 History omeprazole 20 mg capsule,delayed 20 mg PO DAILY 01/06/24 01/06/24 History release tizanidine 4 mg tablet 4 mg PO TID PRN muscle spasticity 01/14/24 Unknown History baclofen 10 mg tablet 10 mg PO TID PRN muscle spasm 01/16/24 Unknown History apixaban 5 mg (74 tabs) tablets in 5 mg PO BID #74 tabs 01/19/24 Unknown Rx a dose pack ([place] DVT-PE Treat 30D Start) metoprolol tartrate 25 mg tablet 25 mg PO BID #60 tabs 01/19/24 Unknown Rx Allergy/AdvReac Type Severity Reaction Status Date / Time amitriptyline Allergy Other Verified 08/02/24 10:13 amoxicillin (Amoxicillin) Allergy Rash Verified 08/02/24 10:13 erythromycin base Allergy Rash Verified 08/02/24 10:13 (Erythromycin Base) hydroxyzine Allergy Rash Verified 08/02/24 10:13 levofloxacin (From Levaquin) Allergy Swelling Verified 08/02/24 10:13 milnacipran Allergy Other Verified 08/02/24 10:13 milnacipran HCl (From Allergy Other Verified 08/02/24 10:13 Savella) celecoxib (From Celebrex) AdvReac Other Verified 08/02/24 10:13 diphenhydramine HCl (From AdvReac muscle Verified 08/02/24 10:13 Benadryl) spasms duloxetine HCl (From AdvReac Other Verified 08/02/24 10:13 Cymbalta) meloxicam AdvReac Swelling Verified 08/02/24 10:13 of legs/chest pain Family History Mother Cancer, Onset Age: 36 Breast CVA (cerebral vascular accident) CAD (coronary artery disease), Onset Age: 46 Myocardial infarction x2 Grandmother CAD (coronary artery disease) COPD (chronic obstructive pulmonary disease) Diabetes Surgical History History of right hip replacement History of adenoidectomy History of bilateral knee replacement History of left heart catheterization (LHC) (~01/31/17) History of atrial septal defect repair (~12/04/00) H/O aortic valve repair (~12/04/00) Social History Smoking Status: Current every day smoker tobacco type: cigarettes alcohol intake: current details: occasional substance use type: does not use ROS Constitutional Constitutional: Denies fatigue, fever(s), poor appetite, weight gain or weight loss Gastrointestinal Gastrointestinal: Denies belching, bloating, change in bowel habits, change in stool character, chewing difficulty, coffee ground emesis, constipation, cramping, diarrhea, dyspepsia, dysphagia, early satiety, excessive flatus, fecal incontinence, heartburn, hematemesis, hematochezia, hemorrhoids, loose stools, melena, nausea, odynophagia, rectal bleeding, tenesmus, vomiting or weight changes Physical Exam Const alert and no apparent distress Resp normal respiratory effort Cardio regular rate, regular rhythm, S1 normal heart sound and S2 normal heart sound GI normal to inspection, nondistended, normoactive bowel sounds and soft to palpation Lab / Micro Data 11/16/24 03:18 11/16/24 03:18 Labs: Laboratory Results - last 24 hr 11/14/24 07:50: RBC Folate Hemolysate 310.0, RBC Folate 1131, Hematocrit 27.4 L 11/16/24 03:18: WBC 13.4 H, RBC 3.05 L, Hgb 8.4 L, Hct 27.0 L, MCV 88.5, MCH 27.5, MCHC 31.1 L, RDW Std Deviation 48.9 H, RDW Coeff of Beto 15.2 H, Plt Count 167, MPV 12.9 H, Immature Gran % (Auto) 1.900 H, Neut % (Auto) 88.8 H, Lymph % (Auto) 2.3 L, [place] % (Auto) 6.9, Eos % (Auto) 0.0, Baso % (Auto) 0.1, Absolute Neuts (auto) 11.9 H, Absolute Lymphs (auto) 0.31 L, Nucleated RBC % 0.4, Sodium 138, Potassium 3.8, Chloride 103, Carbon Dioxide 21.0, Anion Gap 14, BUN 35 H, Creatinine 1.50 H, Estim Creat Clear Calc 51.83, Est GFR (MDRD) Non-Af 43 L, BUN/Creatinine Ratio 23.1 H, Glucose 204 H, Calcium 8.5 11/16/24 09:00: Vancomycin Trough 19.2 H Micro: Microbiology 11/12/24 15:11 Blood Culture (Wb) - Left Hand Bacteria Detection (PCR) - Final Staphylococcus epidermidis mecA Resistance Marker 11/12/24 15:11 Blood Culture (Wb) - Left Hand Blood Culture - Final Coag Negative Staph Corynebacterium species 11/12/24 Unknown Sputum, Induced/Lukens Gram Stain - Final 11/12/24 Unknown Sputum, Induced/Lukens Respiratory Culture - Final Staphylococcus aureus Haemophilus influenzae 11/15/24 23:20 Gastric Fluid/Contents Gastric Occult Blood - Final Rhythm Strip Rhythm Strip: Sinus Rhythm Rate: 70 Ectopy: None Assessment & Plan Assessment/Plan (1) ABLA (acute blood loss anemia): PLAN: Differential diagnosis does include stress gastritis and stress ulcerations, peptic ulcer disease, gastric antral vascular ectasia or angiodysplasia in the setting of acute Takotsubo cardiomyopathy on anticoagulation. Patient is for undergoing upper endoscopy to evaluate upper GI tract. N.p.o. past midnight. Charges/Coding Visit Charges Inpatient E&M: 27178 Init Hosp L3
[2024-11-16 18:41] LABS: Internal QC Validated? YES +Cl - CLEAR BKGD
[2024-11-16 18:42] LABS: Pregnancy, Urine Negative Negative; Record Kit Lot#,Urine Preg 947241
[2024-11-17] VITALS (35 sets, daily range): BP systolic 99–132; BP diastolic 58–94; PULSE 70–111; RESP 12–23; TEMP 37.4–38.6; O2SAT 90–95; BMI 39.0
[2024-11-17 04:21] LABS: Hematocrit 26.7 % (37-47); Hemoglobin 8.4 g/dL (12.0-15.0); Immature Granulocytes Count 0.150 X10^3/uL (0.0-0.0); Mean Corp Hgb Conc 31.5 g/dL (32-36); Mean Corpuscular Volume 88.4 fL (81-99); Mean Platelet Vol. 13.0 fl (6.2-12.0); NRBC Flagged by Analyzer 0.2 % (0-5); POSITIVE DIFFERENTIAL YES; Platelet Count 164 K/mm3 (150-450); RBC Distribution Width CV 14.8 % (11.6-14.6); RBC Distribution Width SD 47.3 fl (35.1-43.9); Red Blood Count 3.02 M/mm3 (4.2-5.4); White Blood Count 12.2 K/mm3 (4.4-11.0)
[2024-11-17 04:40] LABS: Anion Gap 14 (5-15); BUN 32 mg/dL (4-19); BUN/Creat Ratio 26.9 RATIO (10-20); Calcium,Total 8.6 mg/dL (7.6-11.0); Carbon Dioxide 23.0 mmol/L (21.0-32.0); Chloride 104 mmol/L (98-108); Estimated Creatinine Clearance 65.33 ml/min (50-250); Glucose 180 mg/dL (70-99); Potassium 3.7 mmol/L (3.3-5.1)
[2024-11-17] MEDS: CHLORHEXIDINE GLUC 2% CLOTH 1 EACH TOWELETTE TOPICAL (05:51)
[2024-11-17] MEDS: fentaNYL drip 100 ML 17.5 MCG CONT INF ×3 (05:51→17:30)
[2024-11-17] MEDS: Dexmedetomidine 1,000 mcg in 0.9% NS 240 mL 37.5 MCG CONT INF ×3 (06:00→18:13)
[2024-11-17] MEDS: TITRATION PARAMETER CHANGE 1 EACH IV (06:32)
--- NOTE | 2024-11-17 06:50 | PCM.PN.INT ---
Assessment & Plan Assessment/Plan (1) Acute on chronic respiratory failure with hypoxemia: PLAN: Plan RECOMMENDATIONS: 1. Continue assist-control mode mechanical ventilation. Wean FiO2 and PEEP as tolerated. 2. Continue scheduled Seroquel along with current sedation regimen including propofol, Precedex and fentanyl. 3. Ongoing attempts at diuresis, as tolerated by hemodynamics and renal function. 4. Continue scheduled bronchodilators and steroids. 5. Eliquis is currently on hold pending GI evaluation. 6. Continue PPI therapy as ordered. 7. Obtain follow-up ABG this morning. IMPRESSIONS: 1. Acute on chronic hypoxemic respiratory failure Likely related to known history of interstitial lung disease with superimposed pneumonia contributing. In addition, the patient has a questionable history of COPD of unclear severity. Recommend continuing supportive care including invasive mechanical ventilatory support, with a goal to wean FiO2 and PEEP to maintain saturations at or above 90%. Will plan to continue antimicrobials, scheduled bronchodilators and IV steroids. In addition, given the patient's volume status, we will plan to continue attempts at diuresis as tolerated by hemodynamics and renal function. 2. Acute kidney injury Resolved. Most likely prerenal in etiology. Creatinine has normalized with volume expansion. However, the patient's volume status is significantly elevated now. Recommend proceeding with ongoing diuresis, as tolerated by hemodynamics and renal function. 3. History of heart failure with preserved ejection fraction/COPD of unclear severity Continue current supportive measures including scheduled bronchodilators and steroids. Continue attempts at volume optimization with IV diuretics, as tolerated by hemodynamics and renal function. 4. History of tobacco dependency/chronic pain syndrome/obesity/history of respiratory failure requiring tracheostomy/history of DVT on Eliquis/history of leiomyosarcoma Complicates care, management, recovery and prognosis. Continue supportive measures as noted above. Tube feeding remains on hold, pending further evaluation by gastroenterology. TIME: 33 minutes of critical care time, independent of procedures, was spent addressing the patient's acute on chronic hypoxemic respiratory failure, acute kidney injury, review of all data and collaboration with the care team. Subjective Subjective The patient was seen and examined at the bedside this morning. Events from the last 24 hours have been reviewed. The patient continues to have low-grade fevers but remains otherwise hemodynamically stable on assist-control mode mechanical ventilation with an FiO2 requirement of 50% and PEEP of 5. The patient is currently documented to be overall net +6.6 L for the hospitalization. White blood cell count was noted to be 12,000 with a hemoglobin of 8.4 g/dL. Platelet count is within normal limits. Creatinine has normalized. Objective Data Objective Data The patient's most recent lab work, culture data and imaging studies have all been personally reviewed. Surface echocardiogram revealed normal LV size with a questionable left apical thrombus and an ejection fraction of 35%. Sputum culture was positive for 3+ Staphylococcus aureus and haemophilus influenza. Vital Signs: Vital Signs Temp Pulse Resp BP Pulse Ox O2 Del Method O2 Flow Rate 99.6 F H 82 18 120/81 H 93 Mechanical Ventilator 2 11/17/24 06:00 11/17/24 06:39 11/17/24 06:39 11/17/24 06:00 11/17/24 06:39 11/17/24 06:00 11/12/24 12:52 FiO2 50 11/17/24 06:00 Oxygen Flow Rate (L/min) 2 Oxygen Delivery Method Mechanical Ventilator Weight: 220 lb 3.869 oz Body Mass Index (BMI) 39.0 Intake & Output: Intake and Output for Last 24 Hours 11/15/24 11/16/24 11/17/24 23:59 23:59 23:59 Intake Total 3328.05 / 3390.64 2104.48 / 2147.45 402.81 / 402.81 Output Total 4275 / 4825 4125 / 4625 925 / 925 Balance -946.95 / -1434.36 -2020.52 / -2477.55 -522.19 / -522.19 Lab / Micro Data Attestation: I reviewed the patient's lab results. 11/17/24 04:10 11/17/24 04:10 Labs: Laboratory Results - last 24 hr 11/14/24 07:50: RBC Folate Hemolysate 310.0, RBC Folate 1131, Hematocrit 27.4 L 11/16/24 09:00: Vancomycin Trough 19.2 H 11/16/24 18:25: Urine Test Negative 11/17/24 04:10: WBC 12.2 H, RBC 3.02 L, Hgb 8.4 L, Hct 26.7 L, MCV 88.4, MCH 27.8, MCHC 31.5 L, RDW Std Deviation 47.3 H, RDW Coeff of Beto 14.8 H, Plt Count 164, MPV 13.0 H, Immature Gran % (Auto) 1.200 H, Neut % (Auto) 87.5 H, Lymph % (Auto) 2.6 L, [place] % (Auto) 8.5, Eos % (Auto) 0.0, Baso % (Auto) 0.2, Absolute Neuts (auto) 10.7 H, Absolute Lymphs (auto) 0.32 L, Nucleated RBC % 0.2, Sodium 141, Potassium 3.7, Chloride 104, Carbon Dioxide 23.0, Anion Gap 14, BUN 32 H, Creatinine 1.19, Estim Creat Clear Calc 65.33, Est GFR (MDRD) Non-Af 57 L, BUN/Creatinine Ratio 26.9 H, Glucose 180 H, Calcium 8.6 Micro: Microbiology 11/12/24 15:11 Blood Culture (Wb) - Left Hand Bacteria Detection (PCR) - Final Staphylococcus epidermidis mecA Resistance Marker 11/12/24 15:11 Blood Culture (Wb) - Left Hand Blood Culture - Final Coag Negative Staph Corynebacterium species 11/12/24 Unknown Sputum, Induced/Lukens Gram Stain - Final 11/12/24 Unknown Sputum, Induced/Lukens Respiratory Culture - Final Staphylococcus aureus Haemophilus influenzae 11/15/24 23:20 Gastric Fluid/Contents Gastric Occult Blood - Final 11/12/24 19:37 Mucosa - Nose Respiratory Panel (PCR) - Final ABG Data ABG results: ABG 11/15/24 11/15/24 10:40 13:20 Specimen Type ART ART Sample Site R Radial R Brach pH 7.30 L 7.37 Bicarbonate Actual 18.6 L 19.3 L Total CO2 20 20 Base Excess -8 L -6 L O2 Saturation 90 L 98 O2 % 45.0 60.0 ABG pCO2 37.4 33.5 L ABG pO2 63 L 106 H Chris Test Positive N/A Respiration Rate 18 14 O2 Delivery Device Adult Vent Adult Vent Vent Mode AC AC/PC Tidal Volume 400.0 POC PEEP 8 10 Radiography Diagnostic Testing: Radiology Impression Chest X-Ray 11/15/24 08:25 IMPRESSION: Heart size is upper normal. Central vascularity is increased. There is interstitial and alveolar infiltrate throughout the right and left lung. Lung volumes are decreased. Reading Location: [facility] Rhythm Strip Rhythm Strip: Sinus Rhythm Rate: 70 Ectopy: None Physical Exam Const Constitutional Narrative: Remains intubated, sedated and mechanically ventilated. General Appearance: patient mechanically ventilated HEENT normocephalic and head/scalp atraumatic Mouth: endotracheal tube in place and OG tube in place Eyes PERRL and EOMs intact bilaterally Neck supple General: trachea midline Chest inspection of chest normal Resp Auscultation: diminished lung sounds; Negative for rales, rhonchi or wheezes Cardio regular rate and regular rhythm GI normal to inspection, nondistended, normoactive bowel sounds Extremity no clubbing, cyanosis or edema Skin no rashes or lesions noted Neuro Sensorium / Orientation: sedated on vent Charges/Coding Procedures Hospitalists Procedures: [id number] Critical Care 1st Hr
--- NOTE | 2024-11-17 06:52 | PCM.PN.HOSP ---
Reason for Visit Reason for Visit: Diagnoses Sepsis, unspecified organism (11/12/24) Acute posthemorrhagic anemia (11/12/24) Metabolic encephalopathy (11/12/24) Non-ST elevation (NSTEMI) myocardial infarction (11/12/24) Other secondary pulmonary hypertension (11/12/24) Unspecified systolic (congestive) heart failure (11/12/24) Pneumonia, unspecified organism (11/12/24) Acute respiratory failure, unspecified whether with hypoxia or hypercapnia (11/12/24) Acute respiratory failure with hypoxia (11/12/24) Acute and chronic respiratory failure with hypoxia (11/12/24) Rhabdomyolysis (11/12/24) Acute kidney failure, unspecified (11/12/24) Severe sepsis with septic shock (11/12/24) Other specified abnormal findings of blood chemistry (11/12/24) intermediate (current) use of anticoagulants (11/12/24) Personal history of (corrected) congenital malformations of heart and circulatory system (11/12/24) Subjective Subjective Still intubated. Objective Data Objective Data Vital Signs: Vital Signs Temp Pulse Resp BP Pulse Ox O2 Del Method O2 Flow Rate 37.6 C H 82 18 120/81 H 93 Mechanical Ventilator 2 11/17/24 06:00 11/17/24 06:39 11/17/24 06:39 11/17/24 06:00 11/17/24 06:39 11/17/24 06:00 11/12/24 12:52 FiO2 50 11/17/24 06:00 Oxygen Flow Rate (L/min) 2 Oxygen Delivery Method Mechanical Ventilator Weight: 99.9 kg Body Mass Index (BMI) 39.0 Intake & Output: Intake and Output for Last 24 Hours 11/15/24 11/16/24 11/17/24 23:59 23:59 23:59 Intake Total 3328.05 / 3390.64 2104.48 / 2147.45 402.81 / 402.81 Output Total 4275 / 4825 4125 / 4625 925 / 925 Balance -946.95 / -1434.36 -2020.52 / -2477.55 -522.19 / -522.19 Lab / Micro Data 11/17/24 04:10 11/17/24 04:10 Labs: Laboratory Results - last 24 hr 11/14/24 07:50: RBC Folate Hemolysate 310.0, RBC Folate 1131, Hematocrit 27.4 L 11/16/24 09:00: Vancomycin Trough 19.2 H 11/16/24 18:25: Urine Test Negative 11/17/24 04:10: WBC 12.2 H, RBC 3.02 L, Hgb 8.4 L, Hct 26.7 L, MCV 88.4, MCH 27.8, MCHC 31.5 L, RDW Std Deviation 47.3 H, RDW Coeff of Beto 14.8 H, Plt Count 164, MPV 13.0 H, Immature Gran % (Auto) 1.200 H, Neut % (Auto) 87.5 H, Lymph % (Auto) 2.6 L, [place] % (Auto) 8.5, Eos % (Auto) 0.0, Baso % (Auto) 0.2, Absolute Neuts (auto) 10.7 H, Absolute Lymphs (auto) 0.32 L, Nucleated RBC % 0.2, Sodium 141, Potassium 3.7, Chloride 104, Carbon Dioxide 23.0, Anion Gap 14, BUN 32 H, Creatinine 1.19, Estim Creat Clear Calc 65.33, Est GFR (MDRD) Non-Af 57 L, BUN/Creatinine Ratio 26.9 H, Glucose 180 H, Calcium 8.6 Micro: Microbiology 11/12/24 15:11 Blood Culture (Wb) - Left Hand Bacteria Detection (PCR) - Final Staphylococcus epidermidis mecA Resistance Marker 11/12/24 15:11 Blood Culture (Wb) - Left Hand Blood Culture - Final Coag Negative Staph Corynebacterium species 11/12/24 Unknown Sputum, Induced/Lukens Gram Stain - Final 11/12/24 Unknown Sputum, Induced/Lukens Respiratory Culture - Final Staphylococcus aureus Haemophilus influenzae 11/15/24 23:20 Gastric Fluid/Contents Gastric Occult Blood - Final 11/12/24 19:37 Mucosa - Nose Respiratory Panel (PCR) - Final Rhythm Strip Rhythm Strip: Sinus Rhythm Rate: 70 Ectopy: None Physical Exam Const Constitutional Narrative: intubated. sedated. HEENT HEENT Narrative: ETT, OGT in place. Resp normal respiratory effort, no retractions, no use of accessory muscles and clear to auscultation bilaterally Cardio regular rate, regular rhythm, S1 normal heart sound and S2 normal heart sound GI normal to inspection, nondistended, normoactive bowel sounds, soft to palpation, non-tender and non-distended Assessment & Plan Assessment/Plan (1) Acute respiratory failure: QUALIFIERS: Respiratory failure complication: hypoxia Qualified Code(s): J96.01 - Acute respiratory failure with hypoxia PLAN: Possible pneumonia. Along with interstitial lung disease/COPD. Intubated. Wean oxygen as tolerated. On cefepime, vancomycin, BDs, methylprednisolone. Has received IV furosemide boluses. (2) Acute metabolic encephalopathy: PLAN: Secondary to underlying illness but possibility of toxic component SARS-CoV-2 the Rx screen positive for BZDs and cannabinoids. Head CT w/o acute process. Patient very agitated despite fentanyl, dexmedetomidine drip and propofol. Will need to monitor closely for hypotension. (3) Acute renal failure: PLAN: Improved with IVF. US showed right nephrolithiasis w/o hydronephrosis (4) Septic shock: PLAN: Suspected pneumonia UA unremarkable for UTI. Follow up cultures. 1of 2 blood cultures from the positive for S. epi (likely contaminant) on norepinephrine gtt. (5) NSTEMI, initial episode of care: PLAN: Troponins not ordered on admission. Initial troponin this AM was 727. Already anticoagulated with apixaban. Echo shows an EF 35%. Base of LV wiliam well, but remainder is severely hypokinetic. Cannot rule out LV thrombus. Markedly reduced from 12/2023 when is was 65%. Cardiology following and recommending medical management at this time with initiation of losartan 25 daily, metoprolol continued at 25 twice daily. (6) ABLA (acute blood loss anemia): PLAN: Hg went from 11.1 to 8 today At least partially dilutional. Previously, Hg has been around 9.7 in 12/2023. Hemoccult negative. Iron low at 12, ferritin 129. TSH 1.42. B12 normal at 550. Folates pending. Received a one-time of iron sucrose 100 mg. (7) Pneumonia: PLAN: MSSA Continue abx with cefepime and vancomycin (8) HFrEF (heart failure with reduced ejection fraction): PLAN: EF 35% Acute 2/2 to large volume received for shock. Has been receiving IV furosemide (9) PUD (peptic ulcer disease): PLAN: With GI bleed Bile in the esophagus. Oozing gastric ulcer with pigmented material. Treated with heater probe. Non-bleeding duodenal ulcer with not stimgmata of bleeding IV pantoprazole PLAN: Plan Chronic conditions: DVT: apixaban. pulmonary hypertension: unclear type. Though previously may have been group 3. VTE prophylaxis: with apixaban. Charges/Coding Visit Charges Inpatient E&M: 82478 Subs Hosp L2
[2024-11-17 07:43] LABS: Allen Test Positive; Base Excess 2 mmol/L (-2 to +2); FI02 50.0; PEEP 5; PIP 12; PO2 68 mmHG (75-100); RR 14; SITE R Radial; SO2 92 % (95-99)
[2024-11-17] MEDS: Vancomycin IV 500 MG/100 ML BAG 100 MG IV ×2 (07:57→19:54)
[2024-11-17] MEDS: Chlorhexidine 15 ML PO ×2 (08:20→20:54)
[2024-11-17] MEDS: Senna/Docusate Sodium 1 Tablet 2 TABLET GT ×2 (08:21→20:53)
[2024-11-17] MEDS: Pantoprazole Sodium 40 MG in 0.9% Normal Saline (100mL MB+) 100 ML 330 MG IV (09:09)
[2024-11-17] MEDS: Cefepime HCl 1 GM in 0.9% Normal Saline (50mL MB+) 50 ML IV ×2 (10:11→20:54)
--- NOTE | 2024-11-17 10:50 | PCM.PN.BLA ---
Progress Note Patient had been NPO on the vent for upper endoscopy. Physical Exam Const Constitutional Narrative: Remains intubated, sedated and mechanically ventilated. General Appearance: patient mechanically ventilated HEENT normocephalic and head/scalp atraumatic Mouth: endotracheal tube in place and OG tube in place Eyes PERRL and EOMs intact bilaterally Cardio regular rate and regular rhythm GI normal to inspection, nondistended, normoactive bowel sounds Extremity no clubbing, cyanosis or edema Skin no rashes or lesions noted Neuro Sensorium / Orientation: sedated on vent Assessment & Plan Assessment/Plan (1) ABLA (acute blood loss anemia): PLAN: Differential diagnosis does include stress gastritis and stress ulcerations, peptic ulcer disease, gastric antral vascular ectasia or angiodysplasia in the setting of acute Takotsubo cardiomyopathy on anticoagulation. Patient is for undergoing upper endoscopy to evaluate upper GI tract. N.p.o. past midnight. Visit Charges Inpatient E&M: 08800 [facility] Hosp L3
[2024-11-17] MEDS: Propofol 10MG/Ml 1,000 MG/100 ML Bottle 9 MG CONT INF ×2 (11:20→20:38)
--- NOTE | 2024-11-17 12:16 | OP.EGD_ITS ---
Patient Name: Chrissie Patel Procedure Date: 11/17/2024 10:23 AM Date of : 1980 Age: 44 Procedure: Upper GI endoscopy Indications: Acute post hemorrhagic anemia, Iron deficiency anemia Providers: Kaiden Velazquez DO Medicines: Propofol infusion 10 mcg/kg/min IV Patient Profile: This is a 44 year old female. Refer to note in patient chart for documentation of history and physical. Patient has symptoms of dysphagia with both liquids and solids. Complications: No immediate complications. Procedure: Pre-Anesthesia Assessment: - Prior to the procedure, a History and Physical was performed, and patient medications and allergies were reviewed. The patient is competent. The risks and benefits of the procedure and the sedation options and risks were discussed with the patient. All questions were answered and informed consent was obtained. Patient identification and proposed procedure were verified by the physician in the pre-procedure area. Mental Status Examination: alert and oriented. Airway Examination: normal oropharyngeal airway and neck mobility. Respiratory Examination: clear to auscultation. CV Examination: normal. Prophylactic Antibiotics: The patient does not require prophylactic antibiotics. Prior Anticoagulants: The patient has taken no anticoagulant or antiplatelet agents. ASA Grade Assessment: II - A patient with mild systemic disease. After reviewing the risks and benefits, the patient was deemed in satisfactory condition to undergo the procedure. The anesthesia plan was to use monitored anesthesia care (MAC). Immediately prior to administration of medications, the patient was re-assessed for adequacy to receive sedatives. The heart rate, respiratory rate, oxygen saturations, blood pressure, adequacy of pulmonary ventilation, and response to care were monitored throughout the procedure. The physical status of the patient was re-assessed after the procedure. After obtaining informed consent, the endoscope was passed under direct vision. Throughout the procedure, the patient's blood pressure, pulse, and oxygen saturations were monitored continuously. The gastroscope was introduced through the mouth, and advanced to the fourth part of the duodenum. Small bowel enteroscopy was deemed necessary. The upper GI endoscopy was accomplished without difficulty. The patient tolerated the procedure well. Scope In: 11:02:02 AM Scope Out: 11:09:41 AM Total Procedure Duration Time 0 hours 7 minutes 39 seconds Findings: Bile was found in the entire esophagus. Many oozing linear gastric ulcers with pigmented material were found in the gastric body. The largest lesion was 9 mm in largest dimension. Coagulation for hemostasis using heater probe was successful. Estimated blood loss was minimal. One non-bleeding cratered duodenal ulcer with no stigmata of bleeding was found in the duodenal bulb. The lesion was 5 mm in largest dimension. Coagulation for destruction of remaining portion of lesion using heater probe was successful. Estimated blood loss was minimal. Impression: - Bile in the esophagus. - Oozing gastric ulcers with pigmented material. Treated with a heater probe. - Non-bleeding duodenal ulcer with no stigmata of bleeding. Treated with a heater probe. - No specimens collected. Recommendation: - Return patient to ICU for ongoing care. - NPO. - Continue present medications. Procedure Code(s): --- Professional --- 17204, Small intestinal endoscopy, enteroscopy beyond second portion of duodenum, not including ileum; with ablation of tumor(s), polyp(s), or other lesion(s) not amenable to removal by hot biopsy forceps, bipolar cautery or snare technique 96426, 59,51, Small intestinal endoscopy, enteroscopy beyond second portion of duodenum, not including ileum; with control of bleeding (eg, injection, bipolar cautery, unipolar cautery, laser, heater probe, stapler, plasma foot doctor) CPT copyright 2021 [employer]. All rights reserved. The codes documented in this report are preliminary and upon broker associate review may be revised to meet current compliance requirements. Kaiden Velazquez DO 11/17/2024 12:16:41 PM This report has been signed electronically. Number of Addenda: 0 Note Initiated On: 11/17/2024 10:23 AM
--- NOTE | 2024-11-17 12:16 | OP.CCLET_ITS ---
11/17/2024 Bill Dai Re : Upper GI endoscopy procedure for Chrissie Patel Dear Malaika This procedure was performed on Sunday, November 17, 2024. My impressions and recommendations are as follows: Impressions : - Bile in the esophagus. - Oozing gastric ulcers with pigmented material. Treated with a heater probe. - Non-bleeding duodenal ulcer with no stigmata of bleeding. Treated with a heater probe. - No specimens collected. Recommendations : - Return patient to ICU for ongoing care. - NPO. - Continue present medications. My findings are described in the full procedure note, which is enclosed. If I can be of further assistance, please feel free to contact me at . Sincerely, Kaiden Velazquez, 11/17/2024 12:16:41 PM This report has been signed electronically.
[2024-11-17] MEDS: Vital High Protein 1,000 ML 15 ML GT (19:59)
[2024-11-18] VITALS (34 sets, daily range): BP systolic 85–107; BP diastolic 49–71; PULSE 69–93; RESP 14–21; TEMP 36.9–37.6; O2SAT 88–97; BMI 40.1
[2024-11-18] MEDS: Dexmedetomidine 1,000 mcg in 0.9% NS 240 mL 37.5 MCG CONT INF (00:50)
[2024-11-18 05:42] LABS: Hematocrit 25.6 % (37-47); Hemoglobin 7.9 g/dL (12.0-15.0); Immature Granulocytes Count 0.090 X10^3/uL (0.0-0.0); Mean Corp Hgb Conc 30.9 g/dL (32-36); Mean Corpuscular Volume 89.5 fL (81-99); Mean Platelet Vol. 13.6 fl (6.2-12.0); NRBC Flagged by Analyzer 0.2 % (0-5); POSITIVE DIFFERENTIAL YES; Platelet Count 149 K/mm3 (150-450); RBC Distribution Width CV 14.9 % (11.6-14.6); RBC Distribution Width SD 48.0 fl (35.1-43.9); Red Blood Count 2.86 M/mm3 (4.2-5.4); White Blood Count 9.0 K/mm3 (4.4-11.0)
[2024-11-18] MEDS: CHLORHEXIDINE GLUC 2% CLOTH 1 EACH TOWELETTE TOPICAL (05:48)
[2024-11-18] MEDS: 0.9% Saline Lock 10 ML Syringe IV ×3 (05:48→20:53)
[2024-11-18] MEDS: TITRATION PARAMETER CHANGE 1 EACH IV (05:51)
[2024-11-18] MEDS: fentaNYL drip 100 ML 17.5 MCG CONT INF ×3 (06:00→11:51)
[2024-11-18 06:36] LABS: AST(SGOT) 19 U/L (<=31); Alanine Aminotransfer ALT/SGPT 16 U/L (<=34); Albumin, Serum 3.0 g/dL (3.5-5.0); Alkaline Phosphatase 63 U/L (35-104); Anion Gap 13 (5-15); BUN 34 mg/dL (4-19); BUN/Creat Ratio 24.6 RATIO (10-20); Calcium,Total 8.6 mg/dL (7.6-11.0); Carbon Dioxide 25.0 mmol/L (21.0-32.0); Chloride 103 mmol/L (98-108); Estimated Creatinine Clearance 57.21 ml/min (50-250); Globulin 3.0 g/dL (2.2-4.2); Glucose 193 mg/dL (70-99); Potassium 3.8 mmol/L (3.3-5.1)
[2024-11-18] MEDS: Vancomycin Trough/Random Due 1 LAB MC (06:46)
--- NOTE | 2024-11-18 06:48 | PCM.PN.INT ---
Assessment & Plan Assessment/Plan (1) Acute on chronic respiratory failure with hypoxemia: PLAN: Plan RECOMMENDATIONS: 1. Continue assist-control mode mechanical ventilation. Wean FiO2 and PEEP as tolerated. 2. Continue scheduled Seroquel along with current sedation regimen including propofol, Precedex and fentanyl. 3. Holding Lasix today given interval increase in creatinine. 4. Continue scheduled bronchodilators and steroids. 5. Continue PPI therapy as ordered. 6. Continue tube feeding as tolerated. IMPRESSIONS: 1. Acute on chronic hypoxemic respiratory failure Likely related to known history of interstitial lung disease with superimposed pneumonia contributing. In addition, the patient has a questionable history of COPD of unclear severity. Recommend continuing supportive care including invasive mechanical ventilatory support, with a goal to wean FiO2 and PEEP to maintain saturations at or above 90%. Will plan to continue antimicrobials, scheduled bronchodilators and IV steroids. Although we have been actively diuresing the patient, given her interval increase in creatinine, will hold off on diuretics today. 2. History of heart failure with preserved ejection fraction/COPD of unclear severity Continue current supportive measures including scheduled bronchodilators and steroids. Holding Lasix today given interval increase in creatinine. 3. History of tobacco dependency/chronic pain syndrome/obesity/history of respiratory failure requiring tracheostomy/history of DVT on Eliquis/history of leiomyosarcoma Complicates care, management, recovery and prognosis. Continue supportive measures as noted above. Continue tube feeding as tolerated. TIME: 32 minutes of critical care time, independent of procedures, was spent addressing the patient's acute on chronic hypoxemic respiratory failure, acute kidney injury, review of all data and collaboration with the care team. Subjective Subjective The patient was seen and examined at the bedside this morning. Events from the last 24 hours have been reviewed. The patient is currently afebrile, hemodynamically stable and maintaining appropriate oxygen saturations on assist-control mode mechanical ventilation with an FiO2 requirement of 50% and PEEP of 5. The patient is currently documented to be overall net +5.8 L for the hospitalization. White blood cell count has normalized. Hemoglobin was noted to be 7.9 g/dL. Platelet count is dropped to 149,000. Creatinine has increased mildly to 1.38. The patient continues to tolerate tube feeding. Objective Data Objective Data The patient's most recent lab work, culture data and imaging studies have all been personally reviewed. Surface echocardiogram revealed normal LV size with a questionable left apical thrombus and an ejection fraction of 35%. Sputum culture was positive for 3+ Staphylococcus aureus and haemophilus influenza. Vital Signs: Vital Signs Temp Pulse Resp BP Pulse Ox O2 Del Method O2 Flow Rate 98.8 F 74 14 92/62 92 Mechanical Ventilator 2 11/18/24 06:00 11/18/24 06:00 11/18/24 06:00 11/18/24 06:00 11/18/24 06:00 11/18/24 06:00 11/12/24 12:52 FiO2 50 11/18/24 06:00 Oxygen Flow Rate (L/min) 2 Oxygen Delivery Method Mechanical Ventilator Weight: 226 lb 6.636 oz Body Mass Index (BMI) 40.1 Intake & Output: Intake and Output for Last 24 Hours 11/16/24 11/17/24 11/18/24 23:59 23:59 23:59 Intake Total 2104.48 / 2147.45 2010.43 / 2122.68 529.28 / 529.28 Output Total 4125 / 4625 2700 / 3600 1100 / 1100 Balance -2020.52 / -2477.55 -689.57 / -1477.32 -570.72 / -570.72 Lab / Micro Data Attestation: I reviewed the patient's lab results. 11/18/24 03:15 11/18/24 03:15 Labs: Laboratory Results - last 24 hr 11/18/24 03:15: WBC 9.0, RBC 2.86 L, Hgb 7.9 L, Hct 25.6 L, MCV 89.5, MCH 27.6, MCHC 30.9 L, RDW Std Deviation 48.0 H, RDW Coeff of Beto 14.9 H, Plt Count 149 L, MPV 13.6 H, Immature Gran % (Auto) 1.000 H, Neut % (Auto) 89.1 H, Lymph % (Auto) 3.2 L, [place] % (Auto) 6.6, Eos % (Auto) 0.0, Baso % (Auto) 0.1, Absolute Neuts (auto) 8.0 H, Absolute Lymphs (auto) 0.29 L, Nucleated RBC % 0.2, Sodium 141, Potassium 3.8, Chloride 103, Carbon Dioxide 25.0, Anion Gap 13, BUN 34 H, Creatinine 1.38 H, Estim Creat Clear Calc 57.21, Est GFR (MDRD) Non-Af 48 L, BUN/Creatinine Ratio 24.6 H, Glucose 193 H, Calcium 8.6, Total Bilirubin 0.23, AST 19, ALT 16, Alkaline Phosphatase 63, Total Protein 6.0, Albumin 3.0 L, Globulin 3.0, Albumin/Globulin Ratio 1.0 Micro: Microbiology 11/12/24 15:12 Blood Culture (Wb) - Anticubital Right Blood Culture - Final No growth in 5 days. 11/12/24 15:11 Blood Culture (Wb) - Left Hand Bacteria Detection (PCR) - Final Staphylococcus epidermidis mecA Resistance Marker 11/12/24 15:11 Blood Culture (Wb) - Left Hand Blood Culture - Final Coag Negative Staph Corynebacterium species 11/12/24 Unknown Sputum, Induced/Lukens Gram Stain - Final 11/12/24 Unknown Sputum, Induced/Lukens Respiratory Culture - Final Staphylococcus aureus Haemophilus influenzae 11/15/24 23:20 Gastric Fluid/Contents Gastric Occult Blood - Final 11/12/24 19:37 Mucosa - Nose Respiratory Panel (PCR) - Final ABG Data ABG results: ABG 11/17/24 07:39 Specimen Type ART Sample Site R Radial pH 7.36 Bicarbonate Actual 27.5 H Total CO2 29 Base Excess 2 O2 Saturation 92 L O2 % 50.0 ABG pCO2 48.9 H ABG pO2 68 L Chris Test Positive Respiration Rate 14 O2 Delivery Device Adult Vent Vent Mode AC/PC POC PEEP 5 Peak Inspir Pressure 12 Radiography Diagnostic Testing: Radiology Impression Chest X-Ray 11/15/24 08:25 IMPRESSION: Heart size is upper normal. Central vascularity is increased. There is interstitial and alveolar infiltrate throughout the right and left lung. Lung volumes are decreased. [facility] Rhythm Strip Rhythm Strip: Sinus Rhythm Rate: 70 Ectopy: None Physical Exam Const Constitutional Narrative: Remains intubated, sedated and mechanically ventilated. General Appearance: patient mechanically ventilated HEENT normocephalic and head/scalp atraumatic Mouth: endotracheal tube in place and OG tube in place Eyes PERRL and EOMs intact bilaterally Neck supple General: trachea midline Chest inspection of chest normal Resp Auscultation: diminished lung sounds; Negative for rales, rhonchi or wheezes Cardio regular rate and regular rhythm GI normal to inspection, nondistended, normoactive bowel sounds Extremity General Extremity: edema bilateral lower extremity; Negative for clubbing Skin no rashes or lesions noted Neuro Sensorium / Orientation: sedated on vent Charges/Coding Procedures Hospitalists Procedures: 48509 Critical Care 1st Hr
--- NOTE | 2024-11-18 07:01 | PCM.PN.HOSP ---
Reason for Visit Reason for Visit: Diagnoses Sepsis, unspecified organism (11/12/24) Acute posthemorrhagic anemia (11/12/24) Metabolic encephalopathy (11/12/24) Non-ST elevation (NSTEMI) myocardial infarction (11/12/24) Other secondary pulmonary hypertension (11/12/24) Unspecified systolic (congestive) heart failure (11/12/24) Pneumonia, unspecified organism (11/12/24) Acute respiratory failure, unspecified whether with hypoxia or hypercapnia (11/12/24) Acute respiratory failure with hypoxia (11/12/24) Acute and chronic respiratory failure with hypoxia (11/12/24) Peptic ulcer, site unspecified, unspecified as acute or chronic, without hemorrhage or perforation (11/12/24) Rhabdomyolysis (11/12/24) Acute kidney failure, unspecified (11/12/24) Severe sepsis with septic shock (11/12/24) Other specified abnormal findings of blood chemistry (11/12/24) long-term (current) use of anticoagulants (11/12/24) Personal history of (corrected) congenital malformations of heart and circulatory system (11/12/24) Subjective Subjective unable to tolerate weaning of sedation. Objective Data Objective Data Vital Signs: Vital Signs Temp Pulse Resp BP Pulse Ox O2 Del Method O2 Flow Rate 37.1 C 71 14 95/67 93 Mechanical Ventilator 2 11/18/24 07:00 11/18/24 07:00 11/18/24 07:00 11/18/24 07:00 11/18/24 07:00 11/18/24 07:00 11/12/24 12:52 FiO2 50 11/18/24 07:00 Oxygen Flow Rate (L/min) 2 Oxygen Delivery Method Mechanical Ventilator Weight: 102.7 kg Body Mass Index (BMI) 40.1 Intake & Output: Intake and Output for Last 24 Hours 11/16/24 11/17/24 11/18/24 23:59 23:59 23:59 Intake Total 2104.48 / 2147.45 2009.43 / 2122.68 710.18 / 710.18 Output Total 4125 / 4625 2700 / 3600 1100 / 1100 Balance -2020.52 / -2477.55 -689.57 / -1477.32 -389.82 / -389.82 Lab / Micro Data 11/18/24 03:15 11/18/24 03:15 Labs: Laboratory Results - last 24 hr 11/18/24 03:15: WBC 9.0, RBC 2.86 L, Hgb 7.9 L, Hct 25.6 L, MCV 89.5, MCH 27.6, MCHC 30.9 L, RDW Std Deviation 48.0 H, RDW Coeff of Beto 14.9 H, Plt Count 149 L, MPV 13.6 H, Immature Gran % (Auto) 1.000 H, Neut % (Auto) 89.1 H, Lymph % (Auto) 3.2 L, [place] % (Auto) 6.6, Eos % (Auto) 0.0, Baso % (Auto) 0.1, Absolute Neuts (auto) 8.0 H, Absolute Lymphs (auto) 0.29 L, Nucleated RBC % 0.2, Sodium 141, Potassium 3.8, Chloride 103, Carbon Dioxide 25.0, Anion Gap 13, BUN 34 H, Creatinine 1.38 H, Estim Creat Clear Calc 57.21, Est GFR (MDRD) Non-Af 48 L, BUN/Creatinine Ratio 24.6 H, Glucose 193 H, Calcium 8.6, Total Bilirubin 0.23, AST 19, ALT 16, Alkaline Phosphatase 63, Total Protein 6.0, Albumin 3.0 L, Globulin 3.0, Albumin/Globulin Ratio 1.0 Micro: Microbiology 11/12/24 15:12 Blood Culture (Wb) - Anticubital Right Blood Culture - Final No growth in 5 days. 11/12/24 15:11 Blood Culture (Wb) - Left Hand Bacteria Detection (PCR) - Final Staphylococcus epidermidis mecA Resistance Marker 11/12/24 15:11 Blood Culture (Wb) - Left Hand Blood Culture - Final Coag Negative Staph Corynebacterium species 11/12/24 Unknown Sputum, Induced/Lukens Gram Stain - Final 11/12/24 Unknown Sputum, Induced/Lukens Respiratory Culture - Final Staphylococcus aureus Haemophilus influenzae 11/15/24 23:20 Gastric Fluid/Contents Gastric Occult Blood - Final 11/12/24 19:37 Mucosa - Nose Respiratory Panel (PCR) - Final ABG Data ABG results: ABG 11/17/24 07:39 Specimen Type ART Sample Site R Radial pH 7.36 Bicarbonate Actual 27.5 H Total CO2 29 Base Excess 2 O2 Saturation 92 L O2 % 50.0 ABG pCO2 48.9 H ABG pO2 68 L Chris Test Positive Respiration Rate 14 O2 Delivery Device Adult Vent Vent Mode AC/PC POC PEEP 5 Peak Inspir Pressure 12 Rhythm Strip Rhythm Strip: Sinus Rhythm Rate: 70 Ectopy: None Physical Exam Const Constitutional Narrative: intubated sedated. HEENT head/scalp atraumatic and moist oral mucous membranes Resp normal respiratory effort and no retractions Resp Narrative: coarse breath sounds bilaterally. Cardio regular rate, regular rhythm, S1 normal heart sound and S2 normal heart sound GI normal to inspection, nondistended, normoactive bowel sounds, soft to palpation, non-tender and non-distended Extremity General Extremity: edema bilateral lower extremity Assessment & Plan Assessment/Plan (1) Acute respiratory failure: QUALIFIERS: Respiratory failure complication: hypoxia Qualified Code(s): J96.01 - Acute respiratory failure with hypoxia PLAN: Possible pneumonia. Along with interstitial lung disease/COPD. Intubated. Wean oxygen as tolerated. On cefepime, vancomycin, BDs, methylprednisolone. Has received IV furosemide boluses. (2) Acute metabolic encephalopathy: PLAN: Secondary to underlying illness but possibility of toxic component SARS-CoV-2 the Rx screen positive for BZDs and cannabinoids. Head CT w/o acute process. Patient very agitated despite fentanyl, dexmedetomidine drip and propofol. On quetiapine 50 BID. (3) Acute renal failure: PLAN: Improved with IVF. US showed right nephrolithiasis w/o hydronephrosis (4) Septic shock: PLAN: Suspected pneumonia UA unremarkable for UTI. Follow up cultures. 1of 2 blood cultures from the 20th positive for S. epi (likely contaminant) on norepinephrine gtt. (5) NSTEMI, initial episode of care: PLAN: Troponins not ordered on admission. Initial troponin this AM was 727. Already anticoagulated with apixaban. Echo shows an EF 35%. Base of LV wiliam well, but remainder is severely hypokinetic. Cannot rule out LV thrombus. Markedly reduced from 12/2023 when is was 65%. Cardiology following and recommending medical management at this time with initiation of losartan 25 daily, metoprolol continued at 25 twice daily. (6) ABLA (acute blood loss anemia): PLAN: Hg went from 11.1 to 8 today At least partially dilutional. Previously, Hg has been around 9.7 in 12/2023. Hemoccult negative. Iron low at 12, ferritin 129. TSH 1.42. B12 normal at 550. Folates pending. Received a one-time of iron sucrose 100 mg. (7) Pneumonia: PLAN: MSSA and H. influenzae Continue abx with cefepime and vancomycin (8) HFrEF (heart failure with reduced ejection fraction): PLAN: EF 35% Acute 2/2 to large volume received for shock. Has been receiving IV furosemide (9) PUD (peptic ulcer disease): PLAN: With GI bleed Bile in the esophagus. Oozing gastric ulcer with pigmented material. Treated with heater probe. Non-bleeding duodenal ulcer with not stimgmata of bleeding IV pantoprazole PLAN: Plan Chronic conditions: DVT: apixaban held given GIB. pulmonary hypertension: unclear type. Though previously may have been group 3. VTE prophylaxis: with apixaban. add SCDs Prognosis: guarded. Cannot rule out need for trach/PEG. Charges/Coding Visit Charges Inpatient E&M: 96828 Subs Hosp L2
[2024-11-18] MEDS: Senna/Docusate Sodium 1 Tablet 2 TABLET GT ×2 (07:25→20:49)
[2024-11-18 07:26] LABS: Vancomycin, Trough Level 22.3 ug/mL (5.0-15.0)
[2024-11-18] MEDS: Chlorhexidine 15 ML PO ×2 (07:27→20:48)
[2024-11-18] MEDS: Pantoprazole Sodium 40 MG in 0.9% Normal Saline (100mL MB+) 100 ML 330 MG IV (07:37)
[2024-11-18] MEDS: Dexmedetomidine 1,000 mcg in 0.9% NS 240 mL 38.5 MCG CONT INF ×3 (07:53→21:00)
[2024-11-18] MEDS: Cefepime HCl 1 GM in 0.9% Normal Saline (50mL MB+) 50 ML IV ×2 (08:02→20:59)
[2024-11-18] MEDS: Polyethylene Glycol 3350 17 GM PACKET GT ×2 (09:29→20:49)
[2024-11-18] MEDS: Propofol 10MG/Ml 1,000 MG/100 ML Bottle 6.2 MG CONT INF (11:13)
--- NOTE | 2024-11-18 12:06 | CASEMGMT ---
Tertiary Insurance review for hospitals In-network with [facility] insurance if transfer is recommended is as follows: [facility], [facility], [place], [facility], [facility], [facility], [place], , [place], [facility], and [place]. Chrissie Cortez, Discharge Planning Asst.
[2024-11-18] MEDS: fentaNYL drip 100 ML 15 MCG CONT INF (18:31)
[2024-11-18 19:12] LABS: Vancomycin, Random Level 19.0 ug/mL (0.0-15.0)
--- NOTE | 2024-11-18 19:21 | PCM.RX.CS ---
Consult Antibiotic Management Pharmacy has been consulted to manage selected antibiotic: Vancomycin Type of Intervention Type of Consult: Follow-up Suspected Infection Suspected Infection: Pneumonia Prior Doses of Antibiotics Prior Doses of Antibiotics Received/Current Regimen: Vancomycin 500 mg Q12H last dose given 11/17/24 @ 1954 Labs Labs: Sodium 141 mmol/L (133-145) 11/18/24 03:15 Potassium 3.8 mmol/L (3.3-5.1) 11/18/24 03:15 Chloride 103 mmol/L (98-108) 11/18/24 03:15 Carbon Dioxide 25.0 mmol/L (21.0-32.0) 11/18/24 03:15 Anion Gap 13 (5-15) 11/18/24 03:15 BUN 34 mg/dL (4-19) H 11/18/24 03:15 Creatinine 1.38 mg/dL (0.70-1.20) H 11/18/24 03:15 Est GFR (MDRD) Non-Af 48 (>60) L 11/18/24 03:15 BUN/Creatinine Ratio 24.6 RATIO (10-20) H 11/18/24 03:15 Glucose 193 mg/dL (70-99) H 11/18/24 03:15 Vancomycin Trough 22.3 ug/mL (5.0-15.0) H 11/18/24 06:45 Random Vancomycin 19.0 ug/mL (0.0-15.0) H 11/18/24 18:35 Microbiology Microbiology: Microbiology 11/12/24 15:12 Blood Culture (Wb) - Anticubital Right Blood Culture - Final No growth in 5 days. 11/12/24 15:11 Blood Culture (Wb) - Left Hand Bacteria Detection (PCR) - Final Staphylococcus epidermidis mecA Resistance Marker 11/12/24 15:11 Blood Culture (Wb) - Left Hand Blood Culture - Final Coag Negative Staph Corynebacterium species 11/12/24 Unknown Sputum, Induced/Lukens Gram Stain - Final 11/12/24 Unknown Sputum, Induced/Lukens Respiratory Culture - Final Staphylococcus aureus Haemophilus influenzae 11/15/24 23:20 Gastric Fluid/Contents Gastric Occult Blood - Final 11/12/24 19:37 Mucosa - Nose Respiratory Panel (PCR) - Final Dosing Weight Weight used for dosin kg Estimated Creatinine Clearance Estimated Creatinine Clearance: ~ 57 Goal Trough Goal Trough: 15-20 mcg/mL Pharmacy Plan for Drug Dosing Pharmacy Plan for Drug Dosing: Vancomycin random level = 19.0, resume dosing with 750 mg Q24H Pharmacy Service will continue to monitor and adjust dosing as required. Follow-Up Labs Follow-Up Labs: Trough: Vancomycin Date/Time Labs Ordered Labs to be done on [date and time ordered]: 11/20/24 @ 1900
[2024-11-18] MEDS: Vancomycin HCl 750 MG in 0.9% Normal Saline (250mL Bag) 250 ML 250 MG IV (19:53)
--- NOTE | 2024-11-18 20:09 | PCM.HOSP.N ---
Hospitalist Note Patient with high TF residuals. Will add low dose q 8 hour reglan and reassess.
[2024-11-18] MEDS: Vital High Protein 1,000 ML 10 ML GT (20:13)
[2024-11-19] VITALS (36 sets, daily range): BP systolic 82–111; BP diastolic 49–72; PULSE 71–103; RESP 11–23; TEMP 36.1–37.4; O2SAT 86–96; BMI 39.2
[2024-11-19] MEDS: Dexmedetomidine 1,000 mcg in 0.9% NS 240 mL 33.4 MCG CONT INF (03:45)
[2024-11-19] MEDS: 0.9% Saline Lock 10 ML Syringe IV ×2 (04:53→09:18)
[2024-11-19] MEDS: CHLORHEXIDINE GLUC 2% CLOTH 1 EACH TOWELETTE TOPICAL (04:53)
[2024-11-19 05:00] LABS: Hematocrit 25.0 % (37-47); Hemoglobin 7.5 g/dL (12.0-15.0); Immature Granulocytes Count 0.080 X10^3/uL (0.0-0.0); Mean Corp Hgb Conc 30.0 g/dL (32-36); Mean Corpuscular Volume 91.2 fL (81-99); Mean Platelet Vol. 13.3 fl (6.2-12.0); NRBC Flagged by Analyzer 0.2 % (0-5); POSITIVE DIFFERENTIAL YES; POSITIVE MORPHOLOGY YES; Platelet Count 145 K/mm3 (150-450); RBC Distribution Width CV 15.1 % (11.6-14.6); RBC Distribution Width SD 49.6 fl (35.1-43.9); Red Blood Count 2.74 M/mm3 (4.2-5.4); White Blood Count 10.9 K/mm3 (4.4-11.0)
[2024-11-19] MEDS: TITRATION PARAMETER CHANGE 1 EACH IV (05:24)
[2024-11-19 05:33] LABS: Magnesium 2.1 mg/dL (1.5-2.2)
[2024-11-19 05:38] LABS: Anion Gap 12 (5-15); BUN 52 mg/dL (4-19); BUN/Creat Ratio 25.2 RATIO (10-20); Calcium,Total 8.6 mg/dL (7.6-11.0); Carbon Dioxide 24.7 mmol/L (21.0-32.0); Chloride 102 mmol/L (98-108); Estimated Creatinine Clearance 37.99 ml/min (50-250); Glucose 238 mg/dL (70-99); Potassium 4.2 mmol/L (3.3-5.1)
[2024-11-19 05:39] LABS: Differential Indicated SCAN CRITERIA MET
[2024-11-19 05:54] LABS: Triglycerides 249 mg/dL
[2024-11-19 06:17] LABS: CPK Total, Creatine Kinase 104 U/L (24-195)
--- NOTE | 2024-11-19 06:45 | PN.CC_ITS ---
Assessment & Plan Assessment/Plan (1) Acute on chronic respiratory failure with hypoxemia: PLAN: Plan RECOMMENDATIONS: 1. Continue CPAP as tolerated throughout the day and then transition back to pressure control for overnight support. 2. Obtain follow-up chest x-ray. 3. Obtain renal ultrasound given ISA. 4. Continue scheduled Seroquel along with fentanyl and Precedex for sedation. 5. Continue antimicrobials as ordered. 6. Continue to advance tube feeding rate as tolerated. 7. Continue scheduled bronchodilators. Decrease IV steroid frequency to once daily. 8. Discontinue losartan given borderline hemodynamics. 9. Continue appropriate ICU prophylaxis. IMPRESSIONS: 1. Acute on chronic hypoxemic respiratory failure Likely related to known history of interstitial lung disease with superimposed pneumonia contributing. In addition, the patient has a questionable history of COPD of unclear severity. Recommend continuing supportive care including invasive mechanical ventilatory support, with a goal to wean FiO2 and PEEP to maintain saturations at or above 90%. Will plan to continue antimicrobials, scheduled bronchodilators and IV steroids. Attempted volume optimization with diuretics have been limited by renal insufficiency. Recommend advancing tube feeding infusion rate as tolerated. 2. Acute decompensated heart failure/COPD of unclear severity Continue current supportive measures including scheduled bronchodilators and steroids. Continue to hold Lasix given ISA. 3. Acute kidney injury Most likely prerenal with possible progression to ATN in the setting of borderline hemodynamics and diuretic use. Lasix has been on hold now for several days. Will obtain renal ultrasound. Recommend discontinuing antihypertensives for now. Continue to monitor urine output. No current indication for renal replacement therapy. 4. History of tobacco dependency/chronic pain syndrome/obesity/history of respiratory failure requiring tracheostomy/history of DVT on Eliquis/history of leiomyosarcoma Complicates care, management, recovery and prognosis. Continue supportive measures as noted above. Continue tube feeding as tolerated. TIME: 36 minutes of critical care time, independent of procedures, was spent addressing the patient's acute on chronic hypoxemic respiratory failure, acute kidney injury, review of all data and collaboration with the care team. Subjective Subjective The patient was seen and examined at the bedside this morning. Events from the last 24 hours have been reviewed. The patient is currently afebrile, hemodynamically stable and maintaining appropriate oxygen saturations on assist- control mode mechanical ventilation with an FiO2 requirement of 50% and PEEP of 5. The patient is currently being maintained on Precedex and fentanyl for sedation. While she was able to perform a CPAP trial this morning, her oxygen saturations were only 90% on 50% FiO2. The patient is documented to be overall net positive a liter for the hospitalization. White blood cell count is normal. Hemoglobin is stable at 7.5 g/dL with a platelet count of 145,000. Creatinine has increased to 2.05. Objective Data Objective Data The patient's most recent lab work, culture data and imaging studies have all been personally reviewed. Surface echocardiogram revealed normal LV size with a questionable left apical thrombus and an ejection fraction of 35%. Sputum culture was positive for MSSA and haemophilus influenza. Vital Signs: Vital Signs Temp Pulse Resp BP Pulse Ox O2 Del Method O2 Flow Rate 98.2 F 71 14 84/52 L 93 Mechanical Ventilator 2 11/19/24 06:00 11/19/24 06:00 11/19/24 06:00 11/19/24 06:00 11/19/24 06:00 11/19/24 06:00 11/12/24 12:52 FiO2 50 11/19/24 06:00 Oxygen Flow Rate (L/min) 2 Oxygen Delivery Method Mechanical Ventilator Weight: 221 lb 1.978 oz Body Mass Index (BMI) 39.2 Intake & Output: Intake and Output for Last 24 Hours 11/17/24 11/18/24 11/19/24 23:59 23:59 23:59 Intake Total 2009.43 / 2.68 2733.85 / 2839.85 396.81 / 396.81 Output Total 2700 / 3600 1450 / 1450 Balance -689.57 / -1477.32 1283.85 / 1389.85 396.81 / 396.81 Lab / Micro Data Attestation: I reviewed the patient's lab results. 11/19/24 04:40 11/19/24 04:40 Labs: Laboratory Results - last 24 hr 11/18/24 06:45: Vancomycin Trough 22.3 H 11/18/24 18:35: Random Vancomycin 19.0 H 11/19/24 04:40: WBC 10.9, RBC 2.74 L, Hgb 7.5 L, Hct 25.0 L, MCV 91.2, MCH 27.4, MCHC 30.0 L, RDW Std Deviation 49.6 H, RDW Coeff of Beto 15.1 H, Plt Count 145 L, MPV 13.3 H, Immature Gran % (Auto) 0.700, Neut % (Auto) 90.6 H, Lymph % (Auto) 3.0 L, [place] % (Auto) 5.5, Eos % (Auto) 0.0, Baso % (Auto) 0.2, Absolute Neuts (auto) 9.8 H, Absolute Lymphs (auto) 0.33 L, Nucleated RBC % 0.2, Sodium 139, Potassium 4.2, Chloride 102, Carbon Dioxide 24.7, Anion Gap 12, BUN 52 H, C reatinine 2.05 H, Estim Creat Clear Calc 37.99 L, Est GFR (MDRD) Non-Af 30 L, B UN/Creatinine Ratio 25.2 H, Glucose 238 H, Calcium 8.6, Phosphorus 4.4, Magnesium 2.1, Total Creatine Kinase 104, Triglycerides 249 H Micro: Microbiology 11/12/24 15:12 Blood Culture (Wb) - Anticubital Right Blood Culture - Final No growth in 5 days. 11/12/24 15:11 Blood Culture (Wb) - Left Hand Bacteria Detection (PCR) - Final Staphylococcus epidermidis mecA Resistance Marker 11/12/24 15:11 Blood Culture (Wb) - Left Hand Blood Culture - Final Coag Negative Staph Corynebacterium species 11/12/24 Unknown Sputum, Induced/Lukens Gram Stain - Final 11/12/24 Unknown Sputum, Induced/Lukens Respiratory Culture - Final Staphylococcus aureus Haemophilus influenzae 11/15/24 23:20 Gastric Fluid/Contents Gastric Occult Blood - Final 11/12/24 19:37 Mucosa - Nose Respiratory Panel (PCR) - Final ABG Data ABG results: ABG 11/17/24 07:39 Specimen Type ART Sample Site R Radial pH 7.36 Bicarbonate Actual 27.5 H Total CO2 29 Base Excess 2 O2 Saturation 92 L O2 % 50.0 ABG pCO2 48.9 H ABG pO2 68 L Chris Test Positive Respiration Rate 14 O2 Delivery Device Adult Vent Vent Mode AC/PC POC PEEP 5 Peak Inspir Pressure 12 Radiography Diagnostic Testing: Radiology Impression Chest X-Ray 11/15/24 08:25 IMPRESSION: Heart size is upper normal. Central vascularity is increased. There is interstitial and alveolar infiltrate throughout the right and left lung. Lung volumes are decreased. Reading [facility] Rhythm Strip Rhythm Strip: Sinus Rhythm Rate: 70 Ectopy: None Physical Exam Const Constitutional Narrative: Remains intubated, sedated and mechanically ventilated. General Appearance: patient mechanically ventilated HEENT normocephalic and head/scalp atraumatic Mouth: endotracheal tube in place and OG tube in place Eyes PERRL and EOMs intact bilaterally Neck supple General: trachea midline Chest inspection of chest normal Resp Auscultation: diminished lung sounds; Negative for rales, rhonchi or wheezes Cardio regular rate and regular rhythm GI normal to inspection, nondistended, normoactive bowel sounds Extremity General Extremity: edema bilateral lower extremity; Negative for clubbing Skin no rashes or lesions noted Neuro Sensorium / Orientation: sedated on vent Charges/Coding Procedures Hospitalists Procedures: 42530 Critical Care 1st Hr
--- NOTE | 2024-11-19 07:45 | PN.HOSP_ITS ---
Reason for Visit Reason for Visit: Diagnoses Sepsis, unspecified organism (11/12/24) Acute posthemorrhagic anemia (11/12/24) Metabolic encephalopathy (11/12/24) Non-ST elevation (NSTEMI) myocardial infarction (11/12/24) Other secondary pulmonary hypertension (11/12/24) Unspecified systolic (congestive) heart failure (11/12/24) Pneumonia, unspecified organism (11/12/24) Acute respiratory failure, unspecified whether with hypoxia or hypercapnia (11/12/24) Acute respiratory failure with hypoxia (11/12/24) Acute and chronic respiratory failure with hypoxia (11/12/24) Peptic ulcer, site unspecified, unspecified as acute or chronic, without hemorrhage or perforation (11/12/24) Rhabdomyolysis (11/12/24) Acute kidney failure, unspecified (11/12/24) Severe sepsis with septic shock (11/12/24) Other specified abnormal findings of blood chemistry (11/12/24) senior living (current) use of anticoagulants (11/12/24) Personal history of (corrected) congenital malformations of heart and circulatory system (11/12/24) Subjective Subjective Still intubated. Objective Data Objective Data Vital Signs: Vital Signs Temp Pulse Resp BP Pulse Ox O2 Del Method O2 Flow Rate 36.7 C 76 14 94/56 L 90 Mechanical Ventilator 2 11/19/24 07:00 11/19/24 07:00 11/19/24 07:00 11/19/24 07:00 11/19/24 07:00 11/19/24 07:00 11/12/24 12:52 FiO2 50 11/19/24 07:00 Oxygen Flow Rate (L/min) 2 Oxygen Delivery Method Mechanical Ventilator Weight: 100.3 kg Body Mass Index (BMI) 39.2 Intake & Output: Intake and Output for Last 24 Hours 11/17/24 11/18/24 11/19/24 23:59 23:59 23:59 Intake Total 2009.43 / 2121.68 2733.85 / 2839.85 416.81 / 416.81 Output Total 2700 / 3600 1450 / 1450 Balance -689.57 / -1477.32 1283.85 / 1389.85 416.81 / 416.81 Lab / Micro Data 11/19/24 04:40 11/19/24 04:40 Labs: Laboratory Results - last 24 hr 11/18/24 18:35: Random Vancomycin 19.0 H 11/19/24 04:40: WBC 10.9, RBC 2.74 L, Hgb 7.5 L, Hct 25.0 L, MCV 91.2, MCH 27.4, MCHC 30.0 L, RDW Std Deviation 49.6 H, RDW Coeff of Beto 15.1 H, Plt Count 145 L, MPV 13.3 H, Immature Gran % (Auto) 0.700, Neut % (Auto) 90.6 H, Lymph % (Auto) 3.0 L, [place] % (Auto) 5.5, Eos % (Auto) 0.0, Baso % (Auto) 0.2, Absolute Neuts (auto) 9.8 H, Absolute Lymphs (auto) 0.33 L, Nucleated RBC % 0.2, Sodium 139, Potassium 4.2, Chloride 102, Carbon Dioxide 24.7, Anion Gap 12, BUN 52 H, C reatinine 2.05 H, Estim Creat Clear Calc 37.99 L, Est GFR (MDRD) Non-Af 30 L, B UN/Creatinine Ratio 25.2 H, Glucose 238 H, Calcium 8.6, Phosphorus 4.4, Magnesium 2.1, Total Creatine Kinase 104, Triglycerides 249 H Micro: Microbiology 11/12/24 15:12 Blood Culture (Wb) - Anticubital Right Blood Culture - Final No growth in 5 days. 11/12/24 15:11 Blood Culture (Wb) - Left Hand Bacteria Detection (PCR) - Final Staphylococcus epidermidis mecA Resistance Marker 11/12/24 15:11 Blood Culture (Wb) - Left Hand Blood Culture - Final Coag Negative Staph Corynebacterium species 11/12/24 Unknown Sputum, Induced/Lukens Gram Stain - Final 11/12/24 Unknown Sputum, Induced/Lukens Respiratory Culture - Final Staphylococcus aureus Haemophilus influenzae 11/15/24 23:20 Gastric Fluid/Contents Gastric Occult Blood - Final 11/12/24 19:37 Mucosa - Nose Respiratory Panel (PCR) - Final Rhythm Strip Rhythm Strip: Sinus Rhythm Rate: 70 Ectopy: None Physical Exam Const Constitutional Narrative: Intubated and sedated Resp normal respiratory effort and no retractions Resp Narrative: coarse breath sounds bilaterally. Cardio regular rate, regular rhythm, S1 normal heart sound and S2 normal heart sound GI normal to inspection, nondistended, normoactive bowel sounds, soft to palpation, non-tender and non-distended Assessment & Plan Assessment/Plan (1) Acute respiratory failure: QUALIFIERS: Respiratory failure complication: hypoxia Qualified Code(s): J96.01 - Acute respiratory failure with hypoxia PLAN: Possible pneumonia. Along with interstitial lung disease/COPD. Intubated. Wean oxygen as tolerated. On cefepime, vancomycin, BDs, methylprednisolone. Has received IV furosemide boluses. Since discontinued given worsening kidney function. (2) Acute metabolic encephalopathy: PLAN: Secondary to underlying illness but possibility of toxic component SARS-CoV-2 the Rx screen positive for BZDs and cannabinoids. Head CT w/o acute process. Patient very agitated despite fentanyl, dexmedetomidine drip and propofol. On quetiapine 50 BID. (3) Acute renal failure: PLAN: Initially improved with IVF, but then worsened when diuresis was performed. US showed right nephrolithiasis w/o hydronephrosis (4) Septic shock: PLAN: Suspected pneumonia UA unremarkable for UTI. Follow up cultures. 1of 2 blood cultures from the positive for S. epi (likely contaminant) (5) NSTEMI, initial episode of care: PLAN: Troponins not ordered on admission. Initial troponin this AM was 727. Already anticoagulated with apixaban. Echo shows an EF 35%. Base of LV wiliam well, but remainder is severely hypokinetic. Cannot rule out LV thrombus. Markedly reduced from 12/2023 when is was 65%. Cardiology following and recommending medical management at this time with initiation of losartan 25 daily, metoprolol continued at 25 twice daily. (6) ABLA (acute blood loss anemia): PLAN: Hg went from 11.1 to 8 At least partially dilutional. Previously, Hg has been around 9.7 in 12/2023. Hemoccult negative. Iron low at 12, ferritin 129. TSH 1.42. B12 normal at 550. Folates pending. Received a one-time of iron sucrose 100 mg. (7) Pneumonia: PLAN: MSSA and H. influenzae Continue abx with cefepime and vancomycin (8) HFrEF (heart failure with reduced ejection fraction): PLAN: EF 35% Acute 2/2 to large volume received for shock. Has been receiving IV furosemide (9) PUD (peptic ulcer disease): PLAN: With GI bleed Bile in the esophagus. Oozing gastric ulcer with pigmented material. Treated with heater probe. Non-bleeding duodenal ulcer with not stimgmata of bleeding IV pantoprazole PLAN: Plan Chronic conditions: * DVT: apixaban held given GIB. * pulmonary hypertension: unclear type. Though previously may have been group 3. VTE prophylaxis: with apixaban. add SCDs Prognosis: guarded. Cannot rule out need for trach/PEG. Charges/Coding Visit Charges Inpatient E&M: 67595 Subs Hosp L2
--- NOTE | 2024-11-19 07:47 | US_ITS ---
PROCEDURE: KIDNEY AND BLADDER 11/19/2024 REASON FOR EXAM: ISA TECHNIQUE: KIDNEY AND BLADDER COMPARISON: CT from 10/02/2020 FINDINGS: Right kidney measures 11.3 cm and left kidney measures 11.2 cm. Normal echotexture of bilateral kidneys. No hydronephrosis. No renal stones. Urinary bladder is not well visualized. US/Kidney and Bladder IMPRESSION: No hydronephrosis. Reading Location: [id number]
--- NOTE | 2024-11-19 07:47 | RAD_ITS ---
PROCEDURE: CHEST 1 VIEW (PORTABLE) 11/19/2024 REASON FOR EXAM: RESPIRATORY FAILURE TECHNIQUE: Frontal view of the chest. FINDINGS: Median sternotomy wires. Endotracheal tube and enteric tube in appropriate position. Extensive pulmonary edema. Underlying focal consolidations not excluded. No pleural effusion or pneumothorax. Cardiac silhouette is within normal limits. RAD/Chest 1 View (Portable) IMPRESSION: Extensive pulmonary edema. Underlying focal consolidations not excluded. No p leural effusion or pneumothorax. Reading Location: [id number]
[2024-11-19] MEDS: Pantoprazole Sodium 40 MG in 0.9% Normal Saline (100mL MB+) 100 ML 330 MG IV (09:19)
[2024-11-19] MEDS: Chlorhexidine 15 ML PO ×2 (09:24→19:55)
[2024-11-19] MEDS: Polyethylene Glycol 3350 17 GM PACKET GT ×2 (09:25→20:25)
[2024-11-19] MEDS: Senna/Docusate Sodium 1 Tablet 2 TABLET GT ×2 (09:26→20:25)
[2024-11-19] MEDS: fentaNYL drip 100 ML 5 MCG CONT INF (09:29)
[2024-11-19] MEDS: Cefepime HCl 1 GM in 0.9% Normal Saline (50mL MB+) 50 ML IV ×2 (09:58→20:59)
--- NOTE | 2024-11-19 15:10 | NURSING ---
Irrigated pt's dean w/ 50 cc NS without difficulty/obstruction per Dr. Peacock's request.
[2024-11-19 18:42] LABS: Pro- Brain NATRIURETIC PEPTIDE 6941 pg/mL (<=450); Procalcitonin 0.29 ng/mL (<=0.10)
[2024-11-19] MEDS: Dexmedetomidine 1,000 mcg in 0.9% NS 240 mL 15 MCG CONT INF (19:00)
[2024-11-19] MEDS: Vancomycin HCl 750 MG in 0.9% Normal Saline (250mL Bag) 250 ML 250 MG IV (19:46)
[2024-11-19] MEDS: Vital High Protein 1,000 ML 10 ML GT (19:55)
[2024-11-20] VITALS (35 sets, daily range): BP systolic 89–131; BP diastolic 52–85; PULSE 72–106; RESP 14–24; TEMP 36.3–37.3; O2SAT 91–96; BMI 39.9
[2024-11-20] MEDS: fentaNYL drip 100 ML 5 MCG CONT INF (00:27)
[2024-11-20 03:05] LABS: Hematocrit 30.7 % (37-47); Hemoglobin 9.4 g/dL (12.0-15.0); Immature Granulocytes Count 0.320 X10^3/uL (0.0-0.0); Mean Corp Hgb Conc 30.6 g/dL (32-36); Mean Corpuscular Volume 91.1 fL (81-99); Mean Platelet Vol. 13.1 fl (6.2-12.0); NRBC Flagged by Analyzer 0.2 % (0-5); POSITIVE DIFFERENTIAL YES; Platelet Count 152 K/mm3 (150-450); RBC Distribution Width CV 15.6 % (11.6-14.6); RBC Distribution Width SD 51.4 fl (35.1-43.9); Red Blood Count 3.37 M/mm3 (4.2-5.4); White Blood Count 13.1 K/mm3 (4.4-11.0)
[2024-11-20 03:05] LABS: Allen Test Positive; Base Excess -2 mmol/L (-2 to +2); FI02 50.0; PEEP 5; PO2 68 mmHG (75-100); RR 14; SITE R Radial; SO2 90 % (95-99)
[2024-11-20 03:27] LABS: Anion Gap 14 (5-15); BUN 67 mg/dL (4-19); BUN/Creat Ratio 22.7 RATIO (10-20); Calcium,Total 8.8 mg/dL (7.6-11.0); Carbon Dioxide 22.6 mmol/L (21.0-32.0); Chloride 102 mmol/L (98-108); Estimated Creatinine Clearance 26.61 ml/min (50-250); Glucose 212 mg/dL (70-99); Potassium 4.7 mmol/L (3.3-5.1)
--- NOTE | 2024-11-20 03:31 | CPS ---
High peak pressures observed, EHS SPECIALIST suctioned & lavaged patient, inspiratory filter changed, tubing drained Patient peak pressures also high when previously on ACVC vent settings. RN notified
[2024-11-20 04:51] LABS: Allen Test Positive; Base Excess -1 mmol/L (-2 to +2); FI02 50.0; PEEP 5; PO2 87 mmHG (75-100); RR 18; SITE R Radial; SO2 97 % (95-99)
[2024-11-20] MEDS: 0.9% Saline Lock 10 ML Syringe IV ×2 (04:58→21:32)
[2024-11-20] MEDS: CHLORHEXIDINE GLUC 2% CLOTH 1 EACH TOWELETTE TOPICAL (04:59)
--- NOTE | 2024-11-20 05:00 | RAD_ITS ---
PROCEDURE: CHEST 1 VIEW (PORTABLE) 11/20/2024 REASON FOR EXAM: RESPIRATORY FAILURE TECHNIQUE: Frontal view of the chest. COMPARISON: 11/19/2024 FINDINGS: Rotated and reverse lordotic positioning. ETT tip in good position. Enteric tube tip in stomach lumen. Normal heart size. Status post CABG. Elevated right hemidiaphragm. Under aerated lungs. Persistent interstitial prominence, chronic and/or mild edema. Persistent right base airspace opacity, atelectasis/consolidation. No effusion or pneumothorax. RAD/Chest 1 View (Portable) IMPRESSION: Small interval improvement in pulmonary edema pattern. Reading Location: [facility]-
[2024-11-20] MEDS: TITRATION PARAMETER CHANGE 1 EACH IV (05:58)
--- NOTE | 2024-11-20 07:21 | PN.HOSP_ITS ---
Reason for Visit Reason for Visit: Tachypnea/altered mental status Subjective Subjective No significant issues overnight. Patient remains on significant ventilatory support. Alterations on ventilation made by pulmonary medicine. Objective Data Objective Data Vital Signs: Vital Signs Temp Pulse Resp BP Pulse Ox O2 Del Method O2 Flow Rate 98.6 F 75 18 108/75 95 Mechanical Ventilator 2 11/20/24 06:00 11/20/24 06:00 11/20/24 06:00 11/20/24 06:00 11/20/24 06:00 11/20/24 06:00 11/12/24 12:52 FiO2 50 11/20/24 06:00 Oxygen Flow Rate (L/min) 2 Oxygen Delivery Method Mechanical Ventilator Weight: 102.3 kg Body Mass Index (BMI) 39.9 Intake & Output: Intake and Output for Last 24 Hours 11/18/24 11/19/24 11/20/24 23:59 23:59 23:59 Intake Total 2733.85 / 2839.85 1954.08 / 2039.08 326.13 / 326.13 Output Total 1450 / 1450 210 / 210 5 / 5 Balance 1283.85 / 1389.85 1744.08 / 1829.08 321.13 / 321.13 Lab / Micro Data 11/20/24 02:55 11/20/24 02:55 Labs: Laboratory Results - last 24 hr 11/19/24 04:40: Platelet Estimate SLT DEC, Plt Morphology Comment LARGE, NT pro BNP II 6941 H, Procalcitonin 0.29 H 11/19/24 09:15: Blood Type A NEGATIVE, Antibody Screen NEGATIVE, Crossmatch See Detail 11/20/24 02:55: WBC 13.1 H, RBC 3.37 L, Hgb 9.4 L, Hct 30.7 L, MCV 91.1, MCH 27.9, MCHC 30.6 L, RDW Std Deviation 51.4 H, RDW Coeff of Beto 15.6 H, Plt Count 152, MPV 13.1 H, Immature Gran % (Auto) 2.400 H, Neut % (Auto) 87.2 H, Lymph % (Auto) 3.3 L, [place] % (Auto) 6.0, Eos % (Auto) 0.7, Baso % (Auto) 0.4, Absolute Neuts (auto) 11.4 H, Absolute Lymphs (auto) 0.43 L, Nucleated RBC % 0.2, Sodium 139, Potassium 4.7, Chloride 102, Carbon Dioxide 22.6, Anion Gap 14, BUN 67 H, C reatinine 2.96 H, Estim Creat Clear Calc 26.61 L, Est GFR (MDRD) Non-Af 19 L, B UN/Creatinine Ratio 22.7 H, Glucose 212 H, Calcium 8.8 Micro: Microbiology 11/12/24 15:12 Blood Culture (Wb) - Anticubital Right Blood Culture - Final No growth in 5 days. 11/12/24 15:11 Blood Culture (Wb) - Left Hand Bacteria Detection (PCR) - Final Staphylococcus epidermidis mecA Resistance Marker 11/12/24 15:11 Blood Culture (Wb) - Left Hand Blood Culture - Final Coag Negative Staph Corynebacterium species 11/12/24 Unknown Sputum, Induced/Lukens Gram Stain - Final 11/12/24 Unknown Sputum, Induced/Lukens Respiratory Culture - Final Staphylococcus aureus Haemophilus influenzae 11/15/24 23:20 Gastric Fluid/Contents Gastric Occult Blood - Final 11/12/24 19:37 Mucosa - Nose Respiratory Panel (PCR) - Final ABG Data ABG results: ABG 11/20/24 11/20/24 03:00 04:47 Specimen Type ART ART Sample Site R Radial R Radial pH 7.26 L 7.39 Bicarbonate Actual 24.8 24.0 Total CO2 27 25 Base Excess -2 -1 O2 Saturation 90 L 97 O2 % 50.0 50.0 ABG pCO2 55.5 H 40.0 ABG pO2 68 L 87 Crhis Test Positive Positive Respiration Rate 14 18 O2 Delivery Device Adult Vent Adult Vent Vent Mode AC/PC AC Tidal Volume 450.0 POC PEEP 5 5 Radiography Diagnostic Testing: Radiology Impression Chest X-Ray 11/19/24 07:47 IMPRESSION: Extensive pulmonary edema. Underlying focal consolidations not excluded. No pleural effusion or pneumothorax. Reading Location: [facility] Renal Ultrasound 11/19/24 07:47 IMPRESSION: No hydronephrosis. Reading Location: [id number] Chest X-Ray 11/20/24 05:00 IMPRESSION: Small interval improvement in pulmonary edema pattern. Reading Location: [place] [address] Rhythm Strip Rhythm Strip: Sinus Rhythm Rate: 70 Ectopy: None Physical Exam Const no apparent distress and well nourished; Negative for alert, oriented x3, average body habitus or healthy appearing Constitutional Narrative: Intubated and sedated, morbidly obese, white female, currently appears comfortable but ill, patient appears much older than stated age HEENT head/scalp atraumatic HEENT Narrative: ET tube and OG in place Head and Scalp: normocephalic Resp no retractions, no use of accessory muscles and No clear to auscultation bilaterally Resp Narrative: Diffusely diminished and distant due to body habitus with few intermittent wheezes noted Auscultation: wheezes; Negative for crackles or rhonchi Cardio regular rate, regular rhythm, S1 normal heart sound, S2 normal heart sound, no murmurs, no rub, no gallops and no clicks GI normal to inspection, nondistended, normoactive bowel sounds, soft to palpation and non-tender GI Narrative: Protuberant abdomen Extremity Extremity Narrative: Trace bilateral lower extremity edema Neuro Neuro Narrative: Unable to assess as patient is intubated and sedated Psych Psych Narrative: Unable to assess as patient is intubated and sedated Assessment & Plan Assessment/Plan (1) PUD (peptic ulcer disease): (2) HFrEF (heart failure with reduced ejection fraction): (3) Acute on chronic respiratory failure with hypoxemia: (4) ABLA (acute blood loss anemia): (5) Elevated troponin: PLAN: Plan Acute on chronic hypoxic respiratory failure secondary to bacterial pneumonia - Secondary to chronic interstitial lung disease with superimposed pneumonia - Sputum culture on presentation was positive for MRSA and haemophilus--> had been on cefepime and vancomycin - Patient has received an 8-day course of antibiotic so we will discontinue antibiotics at this time - Vent management per pulmonary medicine - Continue steroids 40 mg daily as ordered - Continue scheduled and as bronchodilators - Anticipate patient will need tracheostomy and PEG with discharge to LTAC once medically stable - Unable to diagnose with ARDS as patient does have echocardiogram with depressed EF ISA - Serum creatinine trends up - Ultrasound was unremarkable - Check urine studies - Will challenge with 1 L IV fluids - Would like to avoid continuous fluids due to poor EF - Repeat lab in a.m. Elevated troponin - Suspect related to bacterial pneumonia hypoxia Chronic normocytic anemia - Hemoglobin is stable next-continue to monitor Hyperglycemia - Likely reactive from stress and steroid use - Will add Lantus 10 units - Monitor blood sugar Leukocytosis - Had a decrease in downtrending back up again - patient has completed antibiotic course - UA does show some abnormalities - Will rate the US of the UA and check a urine culture if suggestive of infection Takotsubo cardiomyopathy - Echocardiogram from 11/13/2020 shows apical ballooning with good contractility at the base - There is some question of LV apical thrombus - Will resume apixaban - Hold diuretics for now due to ISA - Once hemodynamics allow will initiate goal-directed therapy with carvedilol and GOLDIE inhibitor if able Upper GI bleed secondary to PUD - EGD done on 11/17/2024 and also was treated - Will go ahead and trial apixaban again due to echocardiogram being suggestive of thrombus - Monitor closely - Continue IV PPI but increase to twice daily Pulmonary hypertension - At this point seems to be mixed who group 2 and 3 Hyperlipidemia - Continue home atorvastatin Depression - Continue home fluoxetine DVT prophylaxis - Restart home apixaban CODE STATUS - Full code Charges/Coding Visit Charges Inpatient E&M: 55963 Subs Hosp L2
[2024-11-20] MEDS: Chlorhexidine 15 ML PO ×2 (08:00→21:23)
[2024-11-20] MEDS: Dexmedetomidine 1,000 mcg in 0.9% NS 240 mL 33.2 MCG CONT INF ×2 (08:05→15:53)
--- NOTE | 2024-11-20 09:37 | PN.CC_ITS ---
Objective Data Objective Data Vital Signs: Vital Signs Last response 3 Temperature 36.9 C 11/20/24 07:00 Temperature Source Core 11/20/24 07:00 Pulse Rate 77 11/20/24 07:28 Pulse Strength Weak (1+) 11/19/24 20:06 Respiratory Rate 18 11/20/24 07:28 Respiratory Effort Normal, Non-Labored, Mechanically Ventilated 11/20/24 04:00 Respiratory Depth Normal 11/20/24 04:00 Respiratory Pattern Normal 11/20/24 07:28 Blood Pressure 114/77 11/20/24 07:00 Blood Pressure Mean 89 11/20/24 07:00 Blood Pressure Source Monitor 11/20/24 07:00 Blood Pressure Position Semi-Fowlers 11/20/24 07:00 Blood Pressure Location Right Arm 11/20/24 07:00 Pulse Ox 91 11/20/24 07:28 Oxygen Delivery Method Mechanical Ventilator 11/20/24 07:00 Oxygen Flow Rate (L/min) 2 11/12/24 12:52 Fraction of Inspired Oxygen (FIO2) 50 11/20/24 07:28 EtCo2 - Document during CPR and with ROSC 24 11/14/24 14:00 I&O: I&O Last 24 Hours 3 11/19/24 11/19/24 11/20/24 11:59 23:59 11:59 Intake Total 673.39 / 2039.08 1280.69 / 2039.08 402.50 / 402.50 Output Total 210 / 210 5 / 5 Balance 673.39 / 1829.08 1070.69 / 1829.08 397.50 / 397.50 I&O: Total Stay 3 11/12/24 12:35 thru 11/20/24 08:00 Intake Total 94544.03 Output Total 94443 Balance 9819.03 Current Meds Ordered / Administered: Current meds ordered / Administered 3 Generic Name Dose Route Start Last Admin Trade Name Freq PRN Reason Stop Dose Admin Acetaminophen 650 mg 11/12/24 17:32 11/17/24 11:40 Acetaminophen 325 Mg Tablet PO 650 mg Q6H PRN PRN Administration Pain 1-10 Or Fever>100.7 Albuterol Sulfate 2.5 mg 11/15/24 13:11 Albuterol 2.5 Mg/3 Ml Vial.Neb. INHALATION Q2H PRN PRN WHEEZING Albuterol/Ipratropium 3 ml 11/13/24 06:00 11/20/24 07:28 Ipratropium/Albuterol Sulfate 3 Ml Ampul.Neb INHALATION 3 ml Q4H.RT SADE Administration Apixaban 5 mg 11/12/24 22:00 11/16/24 10:24 Apixaban 5 Mg Tablet PO Not Given BID SADE Atorvastatin Calcium 20 mg 11/13/24 10:00 11/19/24 09:24 Atorvastatin Calcium 20 Mg Tablet PO 20 mg DAILY SADE Administration Chlorhexidine Gluconate 15 ml 11/14/24 10:00 11/19/24 19:55 Chlorhexidine 15 Ml PO 15 ml BID SADE Administration Chlorhexidine Gluconate 1 each 11/14/24 10:00 11/20/24 04:59 Chlorhexidine Gluc 2% Cloth 1 Each Towelette TOPICAL 1 each DAILY SADE Administration Fluoxetine HCl 40 mg 11/13/24 10:00 11/19/24 09:25 Fluoxetine Hcl 40 Mg Capsule PO 40 mg DAILY SADE Administration Fluoxetine HCl 20 mg 11/13/24 10:00 11/19/24 09:25 Fluoxetine 20 Mg Capsule PO 20 mg DAILY SADE Administration Hydralazine HCl 10 mg 11/12/24 17:32 Hydralazine 20 Mg/Ml Vial IV Q4H PRN PRN SBP GREATER THAN 170 Protocol Fentanyl 100 mls @ 5 mls/hr 11/12/24 19:40 11/20/24 08:00 CONT INF 150 mcg/hr UD SADE 15 mls/hr Titration Protocol 50 MCG/HR Dexmedetomidine HCl 1,000 mcg/ 250 mls @ 12.788 mls/hr 11/13/24 13:00 11/20/24 08:05 Sodium Chloride CONT INF 1.3 mcg/kg/hr .[id number] SADE 33.2 mls/hr Administration Protocol 0.5 MCG/KG/HR Enteral Nutritional Formula 1,000 mls @ 50 mls/hr 11/15/24 10:15 11/19/24 19:55 Vital High Protein GT 10 mls/hr .Q20H SADE Administration Pantoprazole Sodium 40 mg/ 100 mls @ 300 mls/hr 11/20/24 10:00 Sodium Chloride IV Q12 SADE Lactated Ringer's 1,000 mls @ 999 mls/hr 11/20/24 09:30 IV 11/20/24 10:30 .Q1H1M SADE Methylprednisolone Sodium Succinate 40 mg 11/19/24 10:00 11/19/24 20:26 Methylprednisolone Sod Succ 40 Mg/Ml Vial IV 40 mg DAILY SADE Administration Metoclopramide HCl 2.5 mg 11/18/24 22:00 11/20/24 04:58 Metoclopramide 10 Mg/2 Ml Vial IV 2.5 mg Q8 SADE Administration Montelukast Sodium 10 mg 11/13/24 10:00 11/19/24 09:26 Montelukast 10 Mg Tablet PO 10 mg DAILY SADE Administration Ondansetron HCl 4 mg 11/12/24 17:32 Ondansetron 4 Mg/2 Ml Vial IV Q8H PRN PRN NAUSEA/VOMITING Polyethylene Glycol 17 gm 11/18/24 10:00 11/19/24 20:25 Polyethylene Glycol 3350 17 Gm Packet GT 17 gm BID SADE Administration Pregabalin 300 mg 11/16/24 22:00 11/19/24 20:26 Pregabalin 75 Mg Capsule GT 300 mg BID SADE Administration Quetiapine Fumarate 50 mg 11/17/24 22:00 11/19/24 20:25 Quetiapine 25 Mg Tablet PO 50 mg BID SADE Administration Ranolazine 500 mg 11/12/24 22:00 11/19/24 20:26 Ranolazine 500 Mg Tablet PO Not Given BID SADE Senna/Docusate Sodium 2 tablet 11/16/24 10:00 11/19/24 20:25 Senna/Docusate Sodium 1 Tablet GT 2 tablet BID SADE Administration Sodium Chloride 10 - 40 ml 11/12/24 18:57 11/20/24 04:58 0.9% Saline Lock 10 Ml Syringe IV 10 ml UD PRN Administration SALINE FLUSH Lab / Micro Data Attestation: I reviewed the patient's lab results. 11/20/24 02:55 11/20/24 02:55 Labs: Laboratory Results - last 24 hr 11/19/24 04:40: NT pro BNP II 6941 H, Procalcitonin 0.29 H 11/19/24 09:15: Blood Type A NEGATIVE, Antibody Screen NEGATIVE, Crossmatch See Detail 11/20/24 02:55: WBC 13.1 H, RBC 3.37 L, Hgb 9.4 L, Hct 30.7 L, MCV 91.1, MCH 27.9, MCHC 30.6 L, RDW Std Deviation 51.4 H, RDW Coeff of Beto 15.6 H, Plt Count 152, MPV 13.1 H, Immature Gran % (Auto) 2.400 H, Neut % (Auto) 87.2 H, Lymph % (Auto) 3.3 L, [place] % (Auto) 6.0, Eos % (Auto) 0.7, Baso % (Auto) 0.4, Absolute Neuts (auto) 11.4 H, Absolute Lymphs (auto) 0.43 L, Nucleated RBC % 0.2, Sodium 139, Potassium 4.7, Chloride 102, Carbon Dioxide 22.6, Anion Gap 14, BUN 67 H, C reatinine 2.96 H, Estim Creat Clear Calc 26.61 L, Est GFR (MDRD) Non-Af 19 L, B UN/Creatinine Ratio 22.7 H, Glucose 212 H, Calcium 8.8 ABG Data ABG results: ABG 11/20/24 11/20/24 03:00 04:47 Specimen Type ART ART Sample Site R Radial R Radial pH 7.26 L 7.39 Bicarbonate Actual 24.8 24.0 Total CO2 27 25 Base Excess -2 -1 O2 Saturation 90 L 97 O2 % 50.0 50.0 ABG pCO2 55.5 H 40.0 ABG pO2 68 L 87 Chris Test Positive Positive Respiration Rate 14 18 O2 Delivery Device Adult Vent Adult Vent Vent Mode AC/PC AC Tidal Volume 450.0 POC PEEP 5 5 Rhythm Strip Rhythm Strip: Sinus Rhythm Rate: 70 Ectopy: None Imaging Radiology Impression Renal Ultrasound 11/19/24 07:47 IMPRESSION: No hydronephrosis. Reading Location: [id number] Chest X-Ray 11/20/24 05:00 IMPRESSION: Small interval improvement in pulmonary edema pattern. Reading Location: [place] [id number] Assessment and Plan . Assessment and plan: ICU Problem List: mechanical ventilation acute on chronic hypoxemic RF ILD/restrictive ventilatory defect, severe acute exacerbation COPD, mild acute exacerbation morbid obesity and alveolar hypoventilation Plan: wilber needs more PEEP, but due to high peak pressures will need to downadjust Vt first drop Vt to 350 (slightly over 6cc/kg IBW) increase vent rate to 24brpm ABG in AM likely will fail SBT, but can proceed with sedatio holiday as tolerated failing TFs 2/2 regurgitation/aspiration suppository/enema likely needs repeat trach with ENT Ryan Reyna MD [facility] Access TeleCare Critical Care Time: 55 min The entirety of this encounter was done via Telemedicine Physical Exam Const Constitutional Narrative: LU 0 to -1, intubated, morbidly obese General Appearance: ill appearing HEENT normocephalic, head/scalp atraumatic and moist oral mucous membranes Eyes PERRL, EOMs intact bilaterally, conjunctivae normal and no scleral icterus Neck supple and no JVD Resp normal respiratory effort and no use of accessory muscles Auscultation: diminished lung sounds Cardio regular rate, regular rhythm, S1 normal heart sound and S2 normal heart sound GI soft to palpation and non-tender no CVA tenderness Extremity no clubbing, cyanosis or edema Skin no rashes or lesions noted Neuro CN's II-XII intact bilaterally Sensorium / Orientation: sedated on vent Subjective Subjective CC: Intubated HPI Reviewed: ILD and COPD combined disease, vented several times and tracheostomy in the past. Has been intubated several days with failure to liberate. 11/20 - ACPC failed o/n 2/2 low Vt and patient was transitioned back to ACVC by nocturnal intensive care cover. ABG compensated, but patient still dyssynchronous with vent. RASS 0 to -1, not clear or consistently following instruction. Peak pressures 50cwp on Vt 450/18brpm. Plat 41cwp. ROS could not be obtained 2/2 intubation and sedation
[2024-11-20] MEDS: fentaNYL drip 100 ML 15 MCG CONT INF ×3 (09:38→23:15)
[2024-11-20] MEDS: Polyethylene Glycol 3350 17 GM PACKET GT ×2 (11:42→21:23)
[2024-11-20] MEDS: Senna/Docusate Sodium 1 Tablet 2 TABLET GT ×2 (11:43→21:23)
[2024-11-20] MEDS: Pantoprazole Sodium 40 MG in 0.9% Normal Saline (100mL MB+) 100 ML 300 MG IV ×2 (11:53→21:42)
[2024-11-20] MEDS: Lactated Ringers 1,000 ML 999 ML IV (11:54)
[2024-11-20 16:08] LABS: Mucous, Urine 0 SEEN /hpf (<or=2+); Squamous Epithelial Cells - UA 0 SEEN /hpf (5-10)
[2024-11-20 16:17] LABS: Color, Urine Yellow (Yellow); Glucose, Dipstick Normal (Normal); Ketone-Dipstick 5 mg/dl (Negative); Leukocyte Esterase-Dipstick 500 /ul (Negative); Nitrite-Dipstick Negative (Negative); Occult Blood-Urine 250 /ul (Negative); Protein-Dipstick 100 mg/dl (Negative); Specific Gravity, Urine 1.020 (1.002-1.030); Urine Bilirubin Dipstick Negative (Negative)
[2024-11-20 16:43] LABS: Creatinine, Urine (random) 110.00 mg/dL (28.00-217.00)
[2024-11-20 17:03] LABS: Yeast-Urine 4+ /hpf (None Seen)
[2024-11-20 17:05] LABS: Red Blood Cells-Urine > 100 SEEN /hpf (0-5)
--- NOTE | 2024-11-20 18:07 | PCM.CONS.R ---
Assessment & Plan Assessment/Plan (1) Acute renal failure: PLAN: Baseline creatinine is normal although she had several episodes of ISA in the past. Renal ultrasound without any hydronephrosis. Urine analysis with some cells and protein but this is a Dean sample. She is oliguric. Echocardiogram with low ejection fraction As per records, history of ILD, superimposed pneumonia Respiratory failure requiring intubation Likely ATN in the setting of above events. Blood pressure is acceptable. No pressors right now. If she remains oliguric tomorrow, we may try Lasix challenge. HPI Consult Data Date of Consult: 11/20/24 HPI Narrative Reason for Consultation: ISA HPI Narrative: CONCEPCION CR, is a 44 F who presents To the hospital with respiratory failure. Nephrology on consultation in view of acute renal failure. No prior kidney disease, she did have episodes of ISA in the past which resolved. Baseline creatinine appears to be normal from last year. Currently ongoing events include respiratory failure, presumably due to a combination of pneumonia superimposed on baseline interstitial lung disease. She is on antibiotic coverage as per primary. Creatinine has been progressively worsening over the last 2 to 3 days. Has a indwelling Dean catheter which has been flushed, borderline urine output. Currently not on pressors, intubated. [facility] Medical History Abnormal EKG CKD stage 3b, GFR 30-44 ml/min Anxiety Depression Kidney stones Kidney disease GERD (gastroesophageal reflux disease) Asthma Congestive heart failure (CHF) CHF (congestive heart failure) TIA (transient ischemic attack) (~2001) History of stroke (~2001) Non-rheumatic tricuspid valve insufficiency DDD (degenerative disc disease) History of bicuspid aortic valve Essential hypertension History of DVT of lower extremity History of pulmonary embolus (PE) Colitis Cough Chest pain Thrush Normochromic normocytic anemia Borderline personality disorder Pulmonary hypertension Seizure disorder ARDS (adult respiratory distress syndrome) Acute respiratory failure with hypoxia Hematemesis Leiomyosarcoma Syringomyelia Migraine Exercise-induced asthma Arthritis Anxiety disorder Fibromyalgia AI (aortic insufficiency) Home Medications Medication Instructions Recorded Last Taken Type medroxyprogesterone 150 mg/mL 150 mg IM .[id number] control 03/15/16 3 Weeks Ago History intramuscular syringe ~06/19/20 albuterol sulfate 90 mcg/actuation 1 puff inhalation Q4H PRN Sob &/Or 10/02/16 01/06/24 History aerosol inhaler Wheezing albuterol sulfate 2.5 mg/3 mL 2.5 mg (3 mL) inhalation Q4H PRN 04/15/19 01/06/24 Rx (0.083 %) solution for nebulization breathing #25 vials fluoxetine 40 mg capsule 40 mg PO DAILY DEPRESSION 07/10/20 01/06/24 History oxaprozin 600 mg tablet 600 mg PO BID PRN pain 07/10/20 01/06/24 History lisinopril 30 mg tablet 30 mg PO DAILY blood pressure 11/06/23 01/06/24 History montelukast 10 mg tablet 10 mg PO DAILY allergies 11/06/23 01/06/24 History ranolazine 500 mg tablet,extended 500 mg PO BID chest pain 11/06/23 01/06/24 History release,12 hr atorvastatin 20 mg tablet 20 mg PO DAILY cholesterol 12/29/23 01/06/24 History pregabalin 300 mg capsule 300 mg PO Q12H nerve pain 12/29/23 01/06/24 History ferrous gluconate 324 mg (38 mg 324 mg PO DAILY #30 tabs 01/01/24 01/06/24 Rx iron) tablet budesonide-formoterol HFA 160 2 puff inhalation DAILY 01/06/24 01/06/24 History mcg-4.5 mcg/actuation aerosol inhaler (Symbicort) fluoxetine 20 mg tablet 20 mg PO DAILY 01/06/24 01/06/24 History omeprazole 20 mg capsule,delayed 20 mg PO DAILY 01/06/24 01/06/24 History release tizanidine 4 mg tablet 4 mg PO TID PRN muscle spasticity 01/14/24 Unknown History baclofen 10 mg tablet 10 mg PO TID PRN muscle spasm 01/16/24 Unknown History apixaban 5 mg (74 tabs) tablets in 5 mg PO BID #74 tabs 01/19/24 Unknown Rx a dose pack (Eliquis DVT-PE Treat 30D Start) metoprolol tartrate 25 mg tablet 25 mg PO BID #60 tabs 01/19/24 Unknown Rx Allergy/AdvReac Type Severity Reaction Status Date / Time amitriptyline Allergy Other Verified 08/02/24 10:13 amoxicillin (Amoxicillin) Allergy Rash Verified 08/02/24 10:13 erythromycin base Allergy Rash Verified 08/02/24 10:13 (Erythromycin Base) hydroxyzine Allergy Rash Verified 08/02/24 10:13 levofloxacin (From Levaquin) Allergy Swelling Verified 08/02/24 10:13 milnacipran Allergy Other Verified 08/02/24 10:13 milnacipran HCl (From Allergy Other Verified 08/02/24 10:13 Savella) celecoxib (From Celebrex) AdvReac Other Verified 08/02/24 10:13 diphenhydramine HCl (From AdvReac muscle Verified 08/02/24 10:13 Benadryl) spasms duloxetine HCl (From AdvReac Other Verified 08/02/24 10:13 Cymbalta) meloxicam AdvReac Swelling Verified 08/02/24 10:13 of legs/chest pain Family History Mother Cancer, Onset Age: 36 Breast CVA (cerebral vascular accident) CAD (coronary artery disease), Onset Age: 46 Myocardial infarction x2 Grandmother CAD (coronary artery disease) COPD (chronic obstructive pulmonary disease) Diabetes Surgical History History of right hip replacement History of adenoidectomy History of bilateral knee replacement History of left heart catheterization (LHC) (~01/31/17) History of atrial septal defect repair (~12/04/00) H/O aortic valve repair (~12/04/00) Social History Smoking Status: Current every day smoker tobacco type: cigarettes alcohol intake: current details: occasional substance use type: does not use ROS ROS Narrative unable to obtain Physical Exam Narrative no pallor no icterus no JVD s1s2 no murmurs lungs clear abdomen soft no organomegaly no edema no cyanosis dean + Lab / Micro Data 11/20/24 02:55 11/20/24 02:55 Labs: Laboratory Results - last 24 hr 11/19/24 04:40: NT pro BNP II 6941 H, Procalcitonin 0.29 H 11/20/24 02:55: WBC 13.1 H, RBC 3.37 L, Hgb 9.4 L, Hct 30.7 L, MCV 91.1, MCH 27.9, MCHC 30.6 L, RDW Std Deviation 51.4 H, RDW Coeff of Beto 15.6 H, Plt Count 152, MPV 13.1 H, Immature Gran % (Auto) 2.400 H, Neut % (Auto) 87.2 H, Lymph % (Auto) 3.3 L, [place] % (Auto) 6.0, Eos % (Auto) 0.7, Baso % (Auto) 0.4, Absolute Neuts (auto) 11.4 H, Absolute Lymphs (auto) 0.43 L, Nucleated RBC % 0.2, Sodium 139, Potassium 4.7, Chloride 102, Carbon Dioxide 22.6, Anion Gap 14, BUN 67 H, Creatinine 2.96 H, Estim Creat Clear Calc 26.61 L, Est GFR (MDRD) Non-Af 19 L, BUN/Creatinine Ratio 22.7 H, Glucose 212 H, Calcium 8.8 11/20/24 16:00: Urine Color Yellow, Urine Clarity Turbid, Urine pH 5.0, Ur Specific [place] 1.020, Urine Protein 100 H, Urine Glucose (UA) Normal, Urine Ketones 5 H, Urine Occult Blood 250 H, Urine Nitrite Negative, Urine Bilirubin Negative, Urine Urobilinogen Normal, Ur Leukocyte Esterase 500 H, Urine RBC > 100 SEEN, Urine WBC >100 SEEN, Ur Squamous Epith Cells 0 SEEN, Urine Bacteria 0 SEEN, Urine Mucus 0 SEEN, Urine Yeast 4+, Ur Random Sodium 60, Urine Creatinine 110.00 ABG Data ABG results: ABG 11/20/24 11/20/24 03:00 04:47 Specimen Type ART ART Sample Site R Radial R Radial pH 7.26 L 7.39 Bicarbonate Actual 24.8 24.0 Total CO2 27 25 Base Excess -2 -1 O2 Saturation 90 L 97 O2 % 50.0 50.0 ABG pCO2 55.5 H 40.0 ABG pO2 68 L 87 Chris Test Positive Positive Respiration Rate 14 18 O2 Delivery Device Adult Vent Adult Vent Vent Mode AC/PC AC Tidal Volume 450.0 POC PEEP 5 5 Rhythm Strip Rhythm Strip: Sinus Rhythm Rate: 70 Ectopy: None Imaging Radiology Impression Chest X-Ray 11/20/24 05:00 IMPRESSION: Small interval improvement in pulmonary edema pattern. Reading Location: [place] [address]
[2024-11-20] MEDS: APIXABAN 5 MG TABLET PO (21:23)
[2024-11-20] MEDS: 0.9% Normal Saline (250mL Bag) 250 ML 15 ML IV (21:24)
[2024-11-20] MEDS: Insulin Glargine-YFGN 100 UNIT/ML Pen 10 UNIT SC (21:32)
[2024-11-20] MEDS: Dexmedetomidine 1,000 mcg in 0.9% NS 240 mL 30.7 MCG CONT INF (23:15)
[2024-11-21] VITALS (34 sets, daily range): BP systolic 89–157; BP diastolic 49–83; PULSE 73–129; RESP 24–30; TEMP 37.2–37.7; O2SAT 90–96; BMI 41.7
[2024-11-21 05:33] LABS: Hematocrit 25.9 % (37-47); Hemoglobin 8.3 g/dL (12.0-15.0); Mean Corp Hgb Conc 32.0 g/dL (32-36); Mean Corpuscular Volume 88.1 fL (81-99); Mean Platelet Vol. 12.5 fl (6.2-12.0); POSITIVE COUNT YES; POSITIVE MORPHOLOGY YES; Platelet Count 163 K/mm3 (150-450); RBC Distribution Width CV 15.5 % (11.6-14.6); RBC Distribution Width SD 49.7 fl (35.1-43.9); Red Blood Count 2.94 M/mm3 (4.2-5.4); White Blood Count 12.4 K/mm3 (4.4-11.0)
[2024-11-21] MEDS: CHLORHEXIDINE GLUC 2% CLOTH 1 EACH TOWELETTE TOPICAL (05:43)
[2024-11-21] MEDS: Vital High Protein 1,000 ML 30 ML GT (05:43)
[2024-11-21] MEDS: fentaNYL drip 100 ML 15 MCG CONT INF ×3 (06:00→20:15)
[2024-11-21 06:15] LABS: AST(SGOT) 17 U/L (<=31); Alanine Aminotransfer ALT/SGPT 15 U/L (<=34); Albumin, Serum 2.6 g/dL (3.5-5.0); Alkaline Phosphatase 54 U/L (35-104); Anion Gap 13 (5-15); BUN 79 mg/dL (4-19); BUN/Creat Ratio 19.4 RATIO (10-20); Calcium,Total 8.3 mg/dL (7.6-11.0); Carbon Dioxide 21.2 mmol/L (21.0-32.0); Chloride 105 mmol/L (98-108); Estimated Creatinine Clearance 19.45 ml/min (50-250); Globulin 2.9 g/dL (2.2-4.2); Glucose 128 mg/dL (70-99); Magnesium 1.8 mg/dL (1.5-2.2); Potassium 4.0 mmol/L (3.3-5.1)
[2024-11-21 06:33] LABS: Differential Indicated MANUAL DIFF
--- NOTE | 2024-11-21 07:03 | PN.HOSP_ITS ---
Reason for Visit Reason for Visit: Tachypnea/oliguria Subjective Subjective Patient with a little bit worsening hypoxia so PEEP was increased by pulmonary medicine. She also remains oliguric with worsening renal function. May need discussed dialysis if she does not improve. It looks like nephrology's plan was to challenge her with diuretics. Objective Data Objective Data Vital Signs: Vital Signs Temp Pulse Resp BP Pulse Ox O2 Del Method O2 Flow Rate 99.9 F H 82 24 H 92/49 L 92 Mechanical Ventilator 2 11/21/24 07:00 11/21/24 07:00 11/21/24 07:00 11/21/24 07:00 11/21/24 07:00 11/21/24 07:00 11/12/24 12:52 FiO2 60 11/21/24 07:00 Oxygen Flow Rate (L/min) 2 Oxygen Delivery Method Mechanical Ventilator Weight: 106.8 kg Body Mass Index (BMI) 41.7 Intake & Output: Intake and Output for Last 24 Hours 11/19/24 11/20/24 11/21/24 23:59 23:59 23:59 Intake Total 1954.08 / 2039.08 2951.80 / 3226.08 1141.56 / 1141.56 Output Total 210 / 210 75 / 75 100 / 100 Balance 1744.08 / 1829.08 2876.80 / 3151.08 1041.56 / 1041.56 Lab / Micro Data 11/21/24 12:15 11/21/24 05:20 Labs: Laboratory Results - last 24 hr 11/20/24 16:00: Urine Color Yellow, Urine Clarity Turbid, Urine pH 5.0, Ur Specific [place] 1.020, Urine Protein 100 H, Urine Glucose (UA) Normal, Urine Ketones 5 H, Urine Occult Blood 250 H, Urine Nitrite Negative, Urine Bilirubin Negative, Urine Urobilinogen Normal, Ur Leukocyte Esterase 500 H, Urine RBC > 100 SEEN, Urine WBC >100 SEEN, Ur Squamous Epith Cells 0 SEEN, Urine Bacteria 0 SEEN, Urine Mucus 0 SEEN, Urine Yeast 4+, Ur Random Sodium 60, Urine Creatinine 110.00 11/20/24 21:32: POC Glucose 184 H 11/21/24 05:20: WBC 12.4 H, RBC 2.94 L, Hgb 8.3 L, Hct 25.9 L, MCV 88.1, MCH 28.2, MCHC 32.0, RDW Std Deviation 49.7 H, RDW Coeff of Beto 15.5 H, Plt Count 163, MPV 12.5 H, Immature Gran % (Auto) CAD APPLICATION SUPPORT SPECIALIST, Neut % (Auto) CAD APPLICATION SUPPORT SPECIALIST, Lymph % (Auto) CAD APPLICATION SUPPORT SPECIALIST, [place] % (Auto) CAD APPLICATION SUPPORT SPECIALIST, Eos % (Auto) CAD APPLICATION SUPPORT SPECIALIST, Baso % (Auto) CAD APPLICATION SUPPORT SPECIALIST, Nucleated RBC % CAD APPLICATION SUPPORT SPECIALIST, Sodium 139, Potassium 4.0, Chloride 105, Carbon Dioxide 21.2, Anion Gap 13, BUN 79 H, C reatinine 4.05 H, Estim Creat Clear Calc 19.45 L, Est GFR (MDRD) Non-Af 13 L, BUN/Creatinine Ratio 19.4, Glucose 128 H, Calcium 8.3, Phosphorus 3.1, Magnesium 1.8, Total Bilirubin 0.21, AST 17, ALT 15, Alkaline Phosphatase 54, Total Protein 5.4 L, Albumin 2.6 L, Globulin 2.9, Albumin/Globulin Ratio 0.9 Micro: Microbiology 11/12/24 15:12 Blood Culture (Wb) - Anticubital Right Blood Culture - Final No growth in 5 days. 11/12/24 15:11 Blood Culture (Wb) - Left Hand Bacteria Detection (PCR) - Final Staphylococcus epidermidis mecA Resistance Marker 11/12/24 15:11 Blood Culture (Wb) - Left Hand Blood Culture - Final Coag Negative Staph Corynebacterium species 11/12/24 Unknown Sputum, Induced/Lukens Gram Stain - Final 11/12/24 Unknown Sputum, Induced/Lukens Respiratory Culture - Final Staphylococcus aureus Haemophilus influenzae 11/15/24 23:20 Gastric Fluid/Contents Gastric Occult Blood - Final 11/12/24 19:37 Mucosa - Nose Respiratory Panel (PCR) - Final Rhythm Strip Rhythm Strip: Sinus Rhythm Rate: 70 Ectopy: None Physical Exam Const no apparent distress and well nourished; Negative for alert, oriented x3, average body habitus or healthy appearing Constitutional Narrative: Intubated and sedated, morbidly obese, white female, currently appears comfortable but ill, patient appears much older than stated age HEENT normocephalic, head/scalp atraumatic and moist oral mucous membranes HEENT Narrative: ET tube and OG in place Head and Scalp: normocephalic Eyes Negative for conjunctivae normal Eyes Narrative: no icterus, conjunctival pallor bilaterally Neck supple Neck Narrative: Neck is short and thick and trachea is midline Resp normal respiratory effort, no retractions, no use of accessory muscles and No clear to auscultation bilaterally Resp Narrative: Diffusely diminished with exam difficult due to body habitus and positioning, does have crackles and scattered wheezes Auscultation: crackles and wheezes; Negative for rhonchi Cardio regular rate, regular rhythm, S1 normal heart sound, S2 normal heart sound, no murmurs, no rub, no gallops and no clicks GI normal to inspection, nondistended, normoactive bowel sounds, soft to palpation and non-tender GI Narrative: Protuberant abdomen Extremity Extremity Narrative: 1+ bilateral lower extremity pitting edema, no cyanosis or clubbing Neuro Neuro Narrative: Unable to assess as patient is intubated and sedated Psych Psych Narrative: Unable to assess as patient is intubated and sedated Assessment & Plan Assessment/Plan (1) PUD (peptic ulcer disease): (2) HFrEF (heart failure with reduced ejection fraction): (3) Acute on chronic respiratory failure with hypoxemia: (4) ABLA (acute blood loss anemia): (5) Elevated troponin: PLAN: Plan Acute on chronic hypoxic respiratory failure secondary to bacterial pneumonia - Secondary to chronic interstitial lung disease with superimposed pneumonia - Sputum culture on presentation was positive for MRSA and haemophilus--> had been on cefepime and vancomycin - Patient has received an 8-day course of antibiotic so we will discontinue antibiotics at this time - Vent management per pulmonary medicine - Continue steroids 40 mg daily as ordered - Continue scheduled and as bronchodilators - Anticipate patient will need tracheostomy and PEG with discharge to LTAC once medically stable - Unable to diagnose with ARDS as patient does have echocardiogram with depressed EF ISA - Serum creatinine trends up - Worsening despite IV fluids - Nephrology following - Plan is for diuretic trial today as patient remains oliguric will await nephrology - Repeat lab in a.m. Elevated troponin - Suspect related to bacterial pneumonia hypoxia Chronic normocytic anemia - Slight drop today however repeat is stable - Likely related to volume status as there is no signs of obvious bleeding Hyperglycemia - Likely reactive from stress and steroid use - Fasting sugar this morning is down to 128 has previously been in the 180–240 range - Continue Lantus but monitor blood sugar closely with renal dysfunction - Monitor blood sugar Leukocytosis - Trended back down some today - patient has completed antibiotic course and will continue to watch off antibiotics for now - UA does show some abnormalities and urine culture was sent Takotsubo cardiomyopathy - Echocardiogram from 11/13/2020 shows apical ballooning with good contractility at the base - There is some question of LV apical thrombus - Continue apixaban for now May need to hold in the future depending on plans for tracheostomy - Hold diuretics for now due to ISA and reinitiate per nephrology's discretion - Once hemodynamics allow will initiate goal-directed therapy with carvedilol and GOLDIE inhibitor if able Upper GI bleed secondary to PUD - EGD done on 11/17/2024 and also was treated - Hemoglobin remained stable on apixaban - Monitor closely - Continue IV PPI but increase to twice daily Pulmonary hypertension - At this point seems to be mixed who group 2 and 3 - Diuresis per nephrology Hyperlipidemia - Continue home atorvastatin Depression - Continue home fluoxetine DVT prophylaxis - Continue apixaban for now CODE STATUS - Full code Charges/Coding Visit Charges Inpatient E&M: 30789 Subs Hosp L2
[2024-11-21 07:14] LABS: Allen Test Positive; Base Excess -3 mmol/L (-2 to +2); FI02 60.0; PEEP 5; PO2 67 mmHG (75-100); RR 24; SITE L Radial; SO2 92 % (95-99)
[2024-11-21] MEDS: Dexmedetomidine 1,000 mcg in 0.9% NS 240 mL 30.7 MCG CONT INF (07:29)
[2024-11-21] MEDS: Senna/Docusate Sodium 1 Tablet 2 TABLET GT ×2 (07:30→21:18)
[2024-11-21] MEDS: Chlorhexidine 15 ML PO ×2 (07:30→21:18)
[2024-11-21] MEDS: Polyethylene Glycol 3350 17 GM PACKET GT ×2 (07:31→21:18)
[2024-11-21] MEDS: APIXABAN 5 MG TABLET PO ×2 (07:33→21:18)
[2024-11-21 08:09] LABS: Neutrophil-Band 2 % (0-5); Total Cells Counted 100 (MANUAL DIFF)
[2024-11-21 08:11] LABS: Neutrophil-Segmented 80 % (47-70)
[2024-11-21] MEDS: Pantoprazole Sodium 40 MG in 0.9% Normal Saline (100mL MB+) 100 ML 300 MG IV ×2 (09:49→21:23)
--- NOTE | 2024-11-21 10:20 | PCM.PN.TICU ---
Objective Data Objective Data Vital Signs: Vital Signs Last response Temperature 37.4 C H 11/21/24 09:00 Temperature Source Core 11/21/24 09:00 Pulse Rate 79 11/21/24 09:00 Pulse Strength Weak (1+) 11/20/24 22:00 Respiratory Rate 24 H 11/21/24 09:00 Respiratory Effort Mechanically Ventilated 11/21/24 08:00 Respiratory Depth Normal 11/21/24 08:00 Respiratory Pattern Normal 11/21/24 08:00 Blood Pressure 92/58 L 11/21/24 09:00 Blood Pressure Mean 69 11/21/24 09:00 Blood Pressure Source Monitor 11/21/24 09:00 Blood Pressure Position Supine 11/21/24 09:00 Blood Pressure Location Right Arm 11/21/24 09:00 Pulse Ox 92 11/21/24 09:00 Oxygen Delivery Method Mechanical Ventilator 11/21/24 09:00 Oxygen Flow Rate (L/min) 2 11/12/24 12:52 Fraction of Inspired Oxygen (FIO2) 60 11/21/24 09:00 EtCo2 - Document during CPR and with ROSC 24 11/14/24 14:00 I&O: I&O Last 24 Hours 11/20/24 11/20/24 11/21/24 11:59 23:59 11:59 Intake Total 544.33 / 3226.08 2407.47 / 3226.08 1674.89 / 1674.89 Output Total 70 / 75 100 / 100 Balance 539.33 / 3151.08 2337.47 / 3151.08 1574.89 / 1574.89 I&O: Total Stay 11/12/24 12:35 thru 11/21/24 10:00 Intake Total 67147.22 Output Total 60739 Balance 39791.22 Current Meds Ordered / Administered: Current meds ordered / Administered Generic Name Dose Route Start Last Admin Trade Name Freq PRN Reason Stop Dose Admin Acetaminophen 650 mg 11/12/24 17:32 11/17/24 11:40 Acetaminophen 325 Mg Tablet PO 650 mg Q6H PRN PRN Administration Pain 1-10 Or Fever>100.7 Albuterol Sulfate 2.5 mg 11/15/24 13:11 Albuterol 2.5 Mg/3 Ml Vial.Neb. INHALATION Q2H PRN PRN WHEEZING Albuterol/Ipratropium 3 ml 11/13/24 06:00 11/21/24 06:57 Ipratropium/Albuterol Sulfate 3 Ml Ampul.Neb INHALATION 3 ml Q4H.RT SADE Administration Apixaban 5 mg 11/12/24 22:00 11/21/24 07:33 Apixaban 5 Mg Tablet PO 5 mg BID SADE Administration Atorvastatin Calcium 20 mg 11/13/24 10:00 11/21/24 07:33 Atorvastatin Calcium 20 Mg Tablet PO 20 mg DAILY SADE Administration Chlorhexidine Gluconate 15 ml 11/14/24 10:00 11/21/24 07:30 Chlorhexidine 15 Ml PO 15 ml BID SADE Administration Chlorhexidine Gluconate 1 each 11/14/24 10:00 11/21/24 05:43 Chlorhexidine Gluc 2% Cloth 1 Each [place] TOPICAL 1 each DAILY SADE Administration Fluoxetine HCl 40 mg 11/13/24 10:00 11/21/24 07:32 Fluoxetine Hcl 40 Mg Capsule PO 40 mg DAILY SADE Administration Fluoxetine HCl 20 mg 11/13/24 10:00 11/21/24 07:32 Fluoxetine 20 Mg Capsule PO 20 mg DAILY SADE Administration Hydralazine HCl 10 mg 11/12/24 17:32 Hydralazine 20 Mg/Ml Vial IV Q4H PRN PRN SBP GREATER THAN 170 Protocol Fentanyl 100 mls @ 5 mls/hr 11/12/24 19:40 11/21/24 09:00 CONT INF 150 mcg/hr UD SADE 15 mls/hr Titration Protocol 50 MCG/HR Dexmedetomidine HCl 1,000 mcg/ 250 mls @ 12.788 mls/hr 11/13/24 13:00 11/21/24 09:00 Sodium Chloride CONT INF 1.2 mcg/kg/hr .[id number] SADE 30.7 mls/hr Titration Protocol 0.5 MCG/KG/HR Enteral Nutritional Formula 1,000 mls @ 50 mls/hr 11/15/24 10:15 11/21/24 05:43 Vital High Protein GT 30 mls/hr .Q20H SADE Administration Pantoprazole Sodium 40 mg/ 100 mls @ 300 mls/hr 11/20/24 10:00 11/21/24 09:49 Sodium Chloride IV 300 mls/hr Q12 SADE Administration Sodium Chloride 250 mls @ 15 mls/hr 11/20/24 18:09 11/21/24 08:00 IV 15 mls/hr .[id number] PRN Infusion Saline Flush Sodium Chloride 250 mls @ 15 mls/hr 11/20/24 18:09 IV .[id number] PRN Additional IVPB Infusion Insulin Glargine 10 unit 11/20/24 22:00 11/20/24 21:32 Insulin Glargine-Yfgn 100 Unit/Ml Pen SC 10 unit QHS SADE Administration Methylprednisolone Sodium Succinate 40 mg 11/19/24 10:00 11/21/24 07:32 Methylprednisolone Sod Succ 40 Mg/Ml Vial IV 40 mg DAILY SADE Administration Metoclopramide HCl 2.5 mg 11/18/24 22:00 11/21/24 05:49 Metoclopramide 10 Mg/2 Ml Vial IV 2.5 mg Q8 SADE Administration Montelukast Sodium 10 mg 11/13/24 10:00 11/21/24 07:32 Montelukast 10 Mg Tablet PO 10 mg DAILY SADE Administration Nystatin 1 applic 11/21/24 14:00 Nystatin Powder 15gm Bottle TOPICAL TID [facility] Protocol Ondansetron HCl 4 mg 11/12/24 17:32 Ondansetron 4 Mg/2 Ml Vial IV Q8H PRN PRN NAUSEA/VOMITING Polyethylene Glycol 17 gm 11/18/24 10:00 11/21/24 07:31 Polyethylene Glycol 3350 17 Gm Packet GT 17 gm BID SADE Administration Pregabalin 300 mg 11/16/24 22:00 11/21/24 09:49 Pregabalin 75 Mg Capsule GT 300 mg BID SADE Administration Quetiapine Fumarate 50 mg 11/17/24 22:00 11/21/24 07:31 Quetiapine 25 Mg Tablet PO 50 mg BID SADE Administration Ranolazine 500 mg 11/12/24 22:00 11/21/24 07:32 Ranolazine 500 Mg Tablet PO Not Given BID SADE Senna/Docusate Sodium 2 tablet 11/16/24 10:00 11/21/24 07:30 Senna/Docusate Sodium 1 Tablet GT 2 tablet BID SADE Administration Sodium Chloride 10 - 40 ml 11/12/24 18:57 11/20/24 21:32 0.9% Saline Lock 10 Ml Syringe IV 40 ml UD PRN Administration SALINE FLUSH Lab / Micro Data Attestation: I reviewed the patient's lab results. 11/21/24 05:20 11/21/24 05:20 Labs: Laboratory Results - last 24 hr 11/20/24 16:00: Urine Color Yellow, Urine Clarity Turbid, Urine pH 5.0, Ur Specific [place] 1.020, Urine Protein 100 H, Urine Glucose (UA) Normal, Urine Ketones 5 H, Urine Occult Blood 250 H, Urine Nitrite Negative, Urine Bilirubin Negative, Urine Urobilinogen Normal, Ur Leukocyte Esterase 500 H, Urine RBC > 100 SEEN, Urine WBC >100 SEEN, Ur Squamous Epith Cells 0 SEEN, Urine Bacteria 0 SEEN, Urine Mucus 0 SEEN, Urine Yeast 4+, Ur Random Sodium 60, Urine Creatinine 110.00 11/20/24 21:32: POC Glucose 184 H 11/21/24 05:20: WBC 12.4 H, RBC 2.94 L, Hgb 8.3 L, Hct 25.9 L, MCV 88.1, MCH 28.2, MCHC 32.0, RDW Std Deviation 49.7 H, RDW Coeff of Beto 15.5 H, Plt Count 163, MPV 12.5 H, Immature Gran % (Auto) DRY KILN OPERATOR, Neut % (Auto) DRY KILN OPERATOR, Lymph % (Auto) DRY KILN OPERATOR, [place] % (Auto) DRY KILN OPERATOR, Eos % (Auto) DRY KILN OPERATOR, Baso % (Auto) DRY KILN OPERATOR, Absolute Neuts (auto) 10.2 H, Absolute Lymphs (auto) 0.74 L, Total Counted 100, Neutrophils % (Manual) 80 H, Band Neutrophils % 2, Lymphocytes % (Manual) 6 L, Monocytes % (Manual) 1, Eosinophils % (Manual) 6 H, Metamyelocytes % 3 H, Myelocytes % 2 H, Nucleated RBC % DRY KILN OPERATOR, Diff Path Review September, Platelet Estimate A, Sodium 139, Potassium 4.0, Chloride 105, Carbon Dioxide 21.2, Anion Gap 13, BUN 79 H, Creatinine 4.05 H, Estim Creat Clear Calc 19.45 L, Est GFR (MDRD) Non-Af 13 L, BUN/Creatinine Ratio 19.4, Glucose 128 H, Calcium 8.3, Phosphorus 3.1, Magnesium 1.8, Total Bilirubin 0.21, AST 17, ALT 15, Alkaline Phosphatase 54, Total Protein 5.4 L, Albumin 2.6 L, Globulin 2.9, Albumin/Globulin Ratio 0.9 ABG Data ABG results: ABG 11/21/24 07:11 Specimen Type ART Sample Site L Radial pH 7.35 Bicarbonate Actual 22.8 Total CO2 24 Base Excess -3 L O2 Saturation 92 L O2 % 60.0 ABG pCO2 40.8 ABG pO2 67 L Chris Test Positive Respiration Rate 24 O2 Delivery Device Adult Vent Vent Mode AC Tidal Volume 350.0 POC PEEP 5 Rhythm Strip Rhythm Strip: Sinus Rhythm Rate: 70 Ectopy: None Imaging Radiology Impression Renal Ultrasound 11/19/24 07:47 IMPRESSION: No hydronephrosis. Reading Location: [id number] Chest X-Ray 11/20/24 05:00 IMPRESSION: Small interval improvement in pulmonary edema pattern. Reading Location: [place] [address] Assessment and Plan . Assessment and plan: ICU Problem List: mechanical ventilation acute on chronic hypoxemic RF ILD/restrictive ventilatory defect, severe acute exacerbation COPD, mild acute exacerbation morbid obesity and alveolar hypoventilation Plan: PEEP increase to 8cwp maintain rate 24brpm and Vt 350cc failing TFs 2/2 regurgitation/aspiration suppository/enema likely needs repeat trach with ENT GOC discussion with father re: QOL with trach/PEG vs natural h/o ILD Ryan Reyna MD PSY[facility] Critical Care Time: 55 min The entirety of this encounter was done via Telemedicine Physical Exam Const Constitutional Narrative: LU 0 to -1, intubated, morbidly obese General Appearance: ill appearing HEENT normocephalic, head/scalp atraumatic and moist oral mucous membranes Eyes PERRL, EOMs intact bilaterally, conjunctivae normal and no scleral icterus Neck supple and no JVD Resp normal respiratory effort and no use of accessory muscles Auscultation: diminished lung sounds Cardio regular rate, regular rhythm, S1 normal heart sound and S2 normal heart sound GI soft to palpation and non-tender no CVA tenderness Extremity no clubbing, cyanosis or edema Skin no rashes or lesions noted Neuro CN's II-XII intact bilaterally Sensorium / Orientation: sedated on vent Subjective Subjective CC: Intubated HPI Reviewed: ILD and COPD combined disease, vented several times and tracheostomy in the past. Has been intubated several days with failure to liberate. 11/20 - ACPC failed o/n 2/2 low Vt and patient was transitioned back to ACVC by nocturnal intensive care cover. ABG compensated, but patient still dyssynchronous with vent. RASS 0 to -1, not clear or consistently following instruction. Peak pressures 50cwp on Vt 450/18brpm. Plat 41cwp. 11/21 - Changed to ACVC+ o/n and improved peak pressures. PEEP increased to 8cwp, ABG showing slightly lower PaO2. ROS could not be obtained 2/2 intubation and sedation
[2024-11-21 12:27] LABS: Hemoglobin 8.6 g/dL (12.0-15.0)
[2024-11-21] MEDS: 0.9% Saline Lock 10 ML Syringe IV ×2 (12:56→21:24)
[2024-11-21] MEDS: Dexmedetomidine 1,000 mcg in 0.9% NS 240 mL 28.1 MCG CONT INF (15:54)
[2024-11-21 19:05] LABS: Scan Smear per Review Criteria MANUAL DIFF
[2024-11-21] MEDS: Insulin Glargine-YFGN 100 UNIT/ML Pen 10 UNIT SC (21:18)
[2024-11-21] MEDS: Dexmedetomidine 1,000 mcg in 0.9% NS 240 mL 38.4 MCG CONT INF (23:19)
[2024-11-22] VITALS (60 sets, daily range): BP systolic 85–150; BP diastolic 49–114; PULSE 65–97; RESP 11–28; TEMP 35.1–37.2; O2SAT 89–100; BMI 42.5
[2024-11-22] MEDS: fentaNYL drip 100 ML 15 MCG CONT INF ×3 (03:00→17:21)
[2024-11-22] MEDS: CHLORHEXIDINE GLUC 2% CLOTH 1 EACH TOWELETTE TOPICAL (05:41)
[2024-11-22] MEDS: 0.9% Saline Lock 10 ML Syringe IV ×4 (05:42→22:16)
[2024-11-22] MEDS: Vital High Protein 1,000 ML 40 ML GT (05:43)
[2024-11-22] MEDS: Dexmedetomidine 1,000 mcg in 0.9% NS 240 mL 38.4 MCG CONT INF ×2 (05:52→12:41)
[2024-11-22 06:01] LABS: Hematocrit 26.2 % (37-47); Hemoglobin 8.4 g/dL (12.0-15.0); Mean Corp Hgb Conc 32.1 g/dL (32-36); Mean Corpuscular Volume 88.5 fL (81-99); Mean Platelet Vol. 13.0 fl (6.2-12.0); POSITIVE COUNT YES; POSITIVE MORPHOLOGY YES; Platelet Count 173 K/mm3 (150-450); RBC Distribution Width CV 15.4 % (11.6-14.6); RBC Distribution Width SD 49.1 fl (35.1-43.9); Red Blood Count 2.96 M/mm3 (4.2-5.4); White Blood Count 16.4 K/mm3 (4.4-11.0)
[2024-11-22 06:10] LABS: Differential Indicated MANUAL DIFF
[2024-11-22 06:22] LABS: Anion Gap 15 (5-15); BUN 90 mg/dL (4-19); BUN/Creat Ratio 19.4 RATIO (10-20); Calcium,Total 8.5 mg/dL (7.6-11.0); Carbon Dioxide 18.9 mmol/L (21.0-32.0); Chloride 102 mmol/L (98-108); Estimated Creatinine Clearance 17.57 ml/min (50-250); Glucose 141 mg/dL (70-99); Potassium 4.5 mmol/L (3.3-5.1)
--- NOTE | 2024-11-22 06:33 | PCM.PN.INT ---
Assessment & Plan Assessment/Plan (1) Acute on chronic respiratory failure with hypoxemia: PLAN: Plan RECOMMENDATIONS: 1. Continue assist-control mode of mechanical ventilation. Continue to wean FiO2 and PEEP as tolerated. 2. Tentative plans for temporary HD line placement with initiation of CRRT today. 3. Obtain follow-up ABG. 4. Continue current sedation regimen. 5. Antimicrobials as ordered. 6. Continue to advance tube feeding rate as tolerated. 7. Continue IV steroids once daily. 8. Continue appropriate ICU prophylaxis. IMPRESSIONS: 1. Acute on chronic hypoxemic respiratory failure Likely related to known history of interstitial lung disease with superimposed pneumonia and decompensated heart failure contributing. In addition, the patient has a questionable history of COPD of unclear severity. Recommend continuing supportive care including invasive mechanical ventilatory support, with a goal to wean FiO2 and PEEP to maintain saturations at or above 90%. Will plan to continue antimicrobials, scheduled bronchodilators and IV steroids. Given the patient's underlying renal insufficiency and volume status, recommend proceeding with CRRT. Ultimately, the patient is going to require tracheostomy and PEG tube placement. At this time, recommend transfer to tertiary care facility to help facilitate tracheostomy and PEG tube placement. 2. Acute decompensated heart failure/COPD of unclear severity Continue current supportive measures including scheduled bronchodilators and steroids. Proceed with volume removal via CRRT as tolerated. 3. Acute kidney injury Most likely prerenal with possible progression to ATN in the setting of borderline hemodynamics and diuretic use. Nephrology is currently following with tentative plans to initiate dialysis today. 4. History of tobacco dependency/chronic pain syndrome/obesity/history of respiratory failure requiring tracheostomy/history of DVT on Eliquis/history of leiomyosarcoma Complicates care, management, recovery and prognosis. Continue supportive measures as noted above. Continue tube feeding as tolerated. TIME: 34 minutes of critical care time, independent of procedures, was spent addressing the patient's acute on chronic hypoxemic respiratory failure, acute kidney injury, review of all data and collaboration with the care team. Subjective Subjective The patient was seen and examined at the bedside this morning. Events from the last 24 hours have been reviewed. The patient is currently afebrile, hemodynamically stable and maintaining appropriate oxygen saturations on [1]. The patient is documented to be overall net +16 L for the hospitalization. White blood cell count is elevated at 16,000 with a hemoglobin of 8.4 g/dL. Creatinine has increased to 4.65. Objective Data Objective Data The patient's most recent lab work, culture data and imaging studies have all been personally reviewed. Surface echocardiogram revealed normal LV size with a questionable left apical thrombus and an ejection fraction of 35%. Sputum culture was positive for MSSA and haemophilus influenza. Vital Signs: Vital Signs Temp Pulse Resp BP Pulse Ox O2 Del Method O2 Flow Rate 98.8 F 71 24 H 116/62 94 Mechanical Ventilator 2 11/22/24 06:00 11/22/24 06:00 11/22/24 06:00 11/22/24 06:00 11/22/24 06:00 11/22/24 06:00 11/12/24 12:52 FiO2 55 11/22/24 06:00 Oxygen Flow Rate (L/min) 2 Oxygen Delivery Method Mechanical Ventilator Weight: 240 lb 1.334 oz Body Mass Index (BMI) 42.5 Intake & Output: Intake and Output for Last 24 Hours 11/20/24 11/21/24 11/22/24 23:59 23:59 23:59 Intake Total 2951.80 / 3226.08 3397.65 / 3678.89 1307.54 / 1307.54 Output Total 75 / 75 180 / 240 190 / 190 Balance 2876.80 / 3151.08 3217.65 / 3438.89 1117.54 / 1117.54 Lab / Micro Data Attestation: I reviewed the patient's lab results. 11/22/24 05:45 11/22/24 05:45 Labs: Laboratory Results - last 24 hr 11/21/24 05:20: Immature Gran % (Auto) FARMHAND, Neut % (Auto) FARMHAND, Lymph % (Auto) FARMHAND, [place] % (Auto) FARMHAND, Eos % (Auto) FARMHAND, Baso % (Auto) FARMHAND, Absolute Neuts (auto) 10.2 H, Absolute Lymphs (auto) 0.74 L, Total Counted 100, Neutrophils % (Manual) 80 H, Band Neutrophils % 2, Lymphocytes % (Manual) 6 L, Monocytes % (Manual) 1, Eosinophils % (Manual) 6 H, Metamyelocytes % 3 H, Myelocytes % 2 H, Nucleated RBC % FARMHAND, Diff Path Review September, Platelet Estimate A 11/21/24 12:15: Hgb 8.6 L 11/21/24 21:37: POC Glucose 184 H 11/22/24 05:45: WBC 16.4 H, RBC 2.96 L, Hgb 8.4 L, Hct 26.2 L, MCV 88.5, MCH 28.4, MCHC 32.1, RDW Std Deviation 49.1 H, RDW Coeff of Beto 15.4 H, Plt Count 173, MPV 13.0 H, Neut % (Auto) Not Reportable, Sodium 136, Potassium 4.5, Chloride 102, Carbon Dioxide 18.9 L, Anion Gap 15, BUN 90 H, Creatinine 4.65 H, Estim Creat Clear Calc 17.57 L, Est GFR (MDRD) Non-Af 11 L, BUN/Creatinine Ratio 19.4, Glucose 141 H, Calcium 8.5 Micro: Microbiology 11/12/24 15:12 Blood Culture (Wb) - Anticubital Right Blood Culture - Final No growth in 5 days. 11/12/24 15:11 Blood Culture (Wb) - Left Hand Bacteria Detection (PCR) - Final Staphylococcus epidermidis mecA Resistance Marker 11/12/24 15:11 Blood Culture (Wb) - Left Hand Blood Culture - Final Coag Negative Staph Corynebacterium species 11/12/24 Unknown Sputum, Induced/Lukens Gram Stain - Final 11/12/24 Unknown Sputum, Induced/Lukens Respiratory Culture - Final Staphylococcus aureus Haemophilus influenzae 11/15/24 23:20 Gastric Fluid/Contents Gastric Occult Blood - Final 11/12/24 19:37 Mucosa - Nose Respiratory Panel (PCR) - Final ABG Data ABG results: ABG 11/21/24 07:11 Specimen Type ART Sample Site L Radial pH 7.35 Bicarbonate Actual 22.8 Total CO2 24 Base Excess -3 L O2 Saturation 92 L O2 % 60.0 ABG pCO2 40.8 ABG pO2 67 L Chris Test Positive Respiration Rate 24 O2 Delivery Device Adult Vent Vent Mode AC Tidal Volume 350.0 POC PEEP 5 Radiography Diagnostic Testing: Radiology Impression Chest X-Ray 11/15/24 08:25 IMPRESSION: Heart size is upper normal. Central vascularity is increased. There is interstitial and alveolar infiltrate throughout the right and left lung. Lung volumes are decreased. Reading [facility] Rhythm Strip Rhythm Strip: Sinus Rhythm Rate: 70 Ectopy: None Physical Exam Const Constitutional Narrative: Remains intubated, sedated and mechanically ventilated. General Appearance: patient mechanically ventilated HEENT normocephalic and head/scalp atraumatic Mouth: endotracheal tube in place and OG tube in place Eyes PERRL and EOMs intact bilaterally Neck supple General: trachea midline and CVC in place Chest inspection of chest normal Resp Auscultation: rales, rhonchi and diminished lung sounds; Negative for wheezes Cardio regular rate and regular rhythm GI normal to inspection, nondistended, normoactive bowel sounds Extremity General Extremity: edema bilateral lower extremity; Negative for clubbing Skin no rashes or lesions noted Neuro Sensorium / Orientation: sedated on vent Charges/Coding Procedures Hospitalists Procedures: [id number] Critical Care 1st Hr
--- NOTE | 2024-11-22 07:18 | PN.HOSP_ITS ---
Reason for Visit Reason for Visit: Diagnoses Sepsis, unspecified organism (11/12/24) Acute posthemorrhagic anemia (11/12/24) Metabolic encephalopathy (11/12/24) Non-ST elevation (NSTEMI) myocardial infarction (11/12/24) Other secondary pulmonary hypertension (11/12/24) Unspecified systolic (congestive) heart failure (11/12/24) Pneumonia, unspecified organism (11/12/24) Acute respiratory failure, unspecified whether with hypoxia or hypercapnia (11/12/24) Acute respiratory failure with hypoxia (11/12/24) Acute and chronic respiratory failure with hypoxia (11/12/24) Peptic ulcer, site unspecified, unspecified as acute or chronic, without hemorrhage or perforation (11/12/24) Rhabdomyolysis (11/12/24) Acute kidney failure, unspecified (11/12/24) Severe sepsis with septic shock (11/12/24) Other specified abnormal findings of blood chemistry (11/12/24) FDC (current) use of anticoagulants (11/12/24) Personal history of (corrected) congenital malformations of heart and circulatory system (11/12/24) Objective Data Objective Data Vital Signs: Vital Signs Temp Pulse Resp BP Pulse Ox O2 Del Method O2 Flow Rate 98.8 F 71 24 H 116/62 94 Mechanical Ventilator 2 11/22/24 06:00 11/22/24 06:00 11/22/24 06:00 11/22/24 06:00 11/22/24 06:00 11/22/24 06:00 11/12/24 12:52 FiO2 55 11/22/24 06:00 Oxygen Flow Rate (L/min) 2 Oxygen Delivery Method Mechanical Ventilator Weight: 108.9 kg Body Mass Index (BMI) 42.5 Intake & Output: Intake and Output for Last 24 Hours 11/20/24 11/21/24 11/22/24 23:59 23:59 23:59 Intake Total 2951.80 / 3226.08 3397.65 / 3678.89 1361.58 / 1361.58 Output Total 75 / 75 180 / 240 190 / 190 Balance 2876.80 / 3151.08 3217.65 / 3438.89 1171.58 / 1171.58 Lab / Micro Data 11/22/24 05:45 11/22/24 05:45 Labs: Laboratory Results - last 24 hr 11/21/24 05:20: Absolute Neuts (auto) 10.2 H, Absolute Lymphs (auto) 0.74 L, Total Counted 100, Neutrophils % (Manual) 80 H, Band Neutrophils % 2, L ymphocytes % (Manual) 6 L, Monocytes % (Manual) 1, Eosinophils % (Manual) 6 H, M etamyelocytes % 3 H, Myelocytes % 2 H, Diff Path Review September, Platelet Estimate A 11/21/24 12:15: Hgb 8.6 L 11/21/24 21:37: POC Glucose 184 H 11/22/24 05:45: WBC 16.4 H, RBC 2.96 L, Hgb 8.4 L, Hct 26.2 L, MCV 88.5, MCH 28.4, MCHC 32.1, RDW Std Deviation 49.1 H, RDW Coeff of Beto 15.4 H, Plt Count 173, MPV 13.0 H, Neut % (Auto) Not Reportable, Sodium 136, Potassium 4.5, Chloride 102, Carbon Dioxide 18.9 L, Anion Gap 15, BUN 90 H, Creatinine 4.65 H, Estim Creat Clear Calc 17.57 L, Est GFR (MDRD) Non-Af 11 L, BUN/Creatinine Ratio 19.4, Glucose 141 H, Calcium 8.5 Micro: Microbiology 11/12/24 15:12 Blood Culture (Wb) - Anticubital Right Blood Culture - Final No growth in 5 days. 11/12/24 15:11 Blood Culture (Wb) - Left Hand Bacteria Detection (PCR) - Final Staphylococcus epidermidis mecA Resistance Marker 11/12/24 15:11 Blood Culture (Wb) - Left Hand Blood Culture - Final Coag Negative Staph Corynebacterium species 11/12/24 Unknown Sputum, Induced/Lukens Gram Stain - Final 11/12/24 Unknown Sputum, Induced/Lukens Respiratory Culture - Final Staphylococcus aureus Haemophilus influenzae 11/15/24 23:20 Gastric Fluid/Contents Gastric Occult Blood - Final 11/12/24 19:37 Mucosa - Nose Respiratory Panel (PCR) - Final Rhythm Strip Rhythm Strip: Sinus Rhythm Rate: 70 Ectopy: None Physical Exam Narrative POCUS: Respiratory failure. Cardiac exam and P lax, apical and subxiphoid showed grossly hypokinetic LV. Unable to appreciate the IVC due to her respiratory variation and abdominal breathing. Lung exam showed B-lines throughout. Limited view in the bases due to body habitus. Const no apparent distress and well nourished; Negative for alert, oriented x3, average body habitus or healthy appearing Constitutional Narrative: Intubated and sedated, morbidly obese, white female, currently appears comfortable but ill, patient appears much older than stated age HEENT normocephalic, head/scalp atraumatic and moist oral mucous membranes Eyes Negative for conjunctivae normal Eyes Narrative: no icterus, conjunctival pallor bilaterally Neck supple Neck Narrative: Neck is short and thick and trachea is midline Resp normal respiratory effort, no retractions, no use of accessory muscles and No clear to auscultation bilaterally Resp Narrative: Diffusely diminished with exam difficult due to body habitus and positioning, does have crackles and scattered wheezes Auscultation: crackles and wheezes; Negative for rhonchi Cardio regular rate, regular rhythm, S1 normal heart sound, S2 normal heart sound, no murmurs, no rub, no gallops and no clicks Cardio Narrative: Coarse breath sounds bilaterally with expiratory wheeze GI normal to inspection, nondistended, normoactive bowel sounds, soft to palpation, non-tender and non-distended GI Narrative: Protuberant abdomen Extremity normal to inspection and full ROM Extremity Narrative: 1+ bilateral lower extremity pitting edema, no cyanosis or clubbing General Extremity: edema bilateral lower extremity Neuro moves all extremities Neuro Narrative: Unable to assess as patient is intubated and sedated Sensorium / Orientation: awake and alert Psych Psych Narrative: Unable to assess as patient is intubated and sedated Assessment & Plan Assessment/Plan (1) PUD (peptic ulcer disease): (2) HFrEF (heart failure with reduced ejection fraction): (3) Acute on chronic respiratory failure with hypoxemia: (4) ABLA (acute blood loss anemia): (5) Elevated troponin: PLAN: Plan Acute on chronic hypoxic respiratory failure secondary to MRSA and haemophilus influenza pneumonia - Secondary to chronic interstitial lung disease with superimposed pneumonia - Antibiotics completed - Vent management per pulmonary medicine--> now required paralytics as there is significant vent dyssynchrony - Continue steroids 40 mg daily as ordered - Continue scheduled and as bronchodilators - Anticipate patient will need tracheostomy and PEG with discharge to LTAC once medically stable--> unable to do tracheostomy here therefore patient has been transferred to [facility] and has been accepted awaiting bed - Unable to diagnose with ARDS as patient does have echocardiogram with depressed EF - Chest x-ray from today shows significant volume overload - Requiring PEEP of 8 and FiO2 55% to maintain oxygen saturations Septic shock secondary to bacterial pneumonia - Shock resolved - Sepsis resolved - Monitor off antibiotics - Patient did require pressors as she was nonresponsive to fluid boluses on admission Metabolic acidosis - VBG shows an abnormal pH of 7.28 and serum bicarb is 18.9 -Suspect related to worsening renal function ISA secondary to ATN - Serum creatinine continues to trend up -Patient with significant anasarca and volume overload - Case was discussed with nephrology and plan is to start dialysis today -Currently on CRRT - Nephrology following - Repeat lab in a.m. Elevated troponin - Suspect related to bacterial pneumonia hypoxia Chronic normocytic anemia -Hemoglobin is relatively stable and I do suspect the drop has been related to her volume status which should improve with CRRT and fluid removal - Repeat CBC in a.m. Hyperglycemia - Likely reactive from stress and steroid use -Fasting sugar this morning stable at 140 - Continue Lantus 10 units but monitor blood sugar closely with renal dysfunction - Monitor blood sugar Leukocytosis -Still trending up -Urine culture is pending based on UA - If and if trends up again tomorrow we will consider repeat blood cultures and sputum culture - patient has completed antibiotic course and will continue to watch off antibiotics for now Takotsubo cardiomyopathy - Echocardiogram from 11/13/2020 shows apical ballooning with good contractility at the base - There is some question of LV apical thrombus - Continue apixaban for now -->may need to hold in the future depending on plans for tracheostomy -Fluid removal via dialysis at this point -Ultimate goal is initiation of goal-directed therapy however not appropriate at this time Upper GI bleed secondary to PUD - EGD done on 11/17/2024 and also was treated - Hemoglobin remained stable on apixaban - Monitor closely - Continue IV PPI but increase to twice daily Pulmonary hypertension - At this point seems to be mixed who group 2 and 3 - Diuresis per nephrology Hyperlipidemia - Continue home atorvastatin Depression - Continue home fluoxetine DVT prophylaxis - Continue apixaban for now CODE STATUS - Full code Disposition: - Patient will need tracheostomy and PEG tube. Per discussion with pulmonary critical care they would like her transferred to tertiary center to get this done in a timely matter and since this is a repeat tracheostomy it may be more difficult than typical. Patient has been transferred to [facility] and bed is pending Charges/Coding Visit Charges Inpatient E&M: 26905 Subs Hosp L2
[2024-11-22 08:45] LABS: FI02 55.0; PEEP 8; RR 24; SITE R Brach; Time Given 08:41:53; VBG BASE EXCESS -4 mmol/L (-1.0-3.5); VBG PO2 20 mmHg (25-40); VBG SO2 25 % (50-70); VBG TCO2 24 mmol/L (23-33)
[2024-11-22 08:56] LABS: Neutrophil-Band 1 % (0-5); Neutrophil-Segmented 89 % (47-70); Red Cell Morphology NORM C+C NORMAL (NORM C&C); Total Cells Counted 100 (MANUAL DIFF)
--- NOTE | 2024-11-22 09:47 | RAD_ITS ---
PROCEDURE: CXR FOR LINE PLACEMENT 11/22/2024 REASON FOR EXAM: RIJ TEMP DIALYSIS CATH TECHNIQUE: CXR FOR LINE PLACEMENT COMPARISON: Chest x-ray 11/20/2024 RAD/CXR for Line Placement IMPRESSION: Endotracheal tube seen, with tip projecting in the T2 level. This has been wit hdrawn since the prior study. Left sided PICC line remains in place. Lungs are again hypoinflated, but interval worsening of pulmonary edema is note d. A right jugular central venous catheter is seen, with tip projecting near the e xpected junction of the SVC and right atrium. NO PNEUMOTHORAX is noted. No definite pleural effusion is appreciated. The cardiomediastinal silhouette is stable, without evidence of cardiomegaly. Partially visualized nasogastric tube again seen. Prior sternotomy noted. Reading Location: [place] [id number]
--- NOTE | 2024-11-22 09:54 | PRO.PCM_ITS ---
Procedures Hospitalists Procedures: [id number] Insert Non-tunnel CV Cath Non-invasive Procedural Procedure Information Date of Procedure: 11/22/24 Description of procedure: Temporary Hemodialysis Catheter Indication: ISA Consent was obtained from: Father A time-out was completed verifying correct patient, procedure, site, positioning, and special equipment if applicable. The patient was placed in a dependent position appropriate for hemodialysis line placement based on the vein to be cannulated. The patient's right neck was prepped and draped in the sterile fashion. 1% Lidocaine was used and emphasized the surrounding skin area. A 16 cm catheter was introduced into the right IJ, following sequential dilations, using the Seldinger technique and under ultrasound guidance. The catheter was threaded smoothly over the guidewire and appropriate blood return was obtained. Each lumen of the catheter was evacuated of air and flushed with sterile saline. The catheter was then sutured in place to the skin and a st erile dressing applied. Chest x-ray to confirm appropriate positioning is pending. ULTRASOUND GUIDANCE STATEMENT (Vascular Access): I performed an ultrasound image acquisition and interpretation for needle placement during the procedure. The vessel was identified and was found to be free of thrombosis by compression technique. A safe point of entry was marked at the skin in an angle for axis w as determined. The needle was guided by obtaining free-flowing fluid and by real-time visualization.
[2024-11-22] MEDS: Chlorhexidine 15 ML PO ×2 (10:31→21:18)
[2024-11-22] MEDS: Senna/Docusate Sodium 1 Tablet 2 TABLET GT ×2 (10:32→21:23)
[2024-11-22] MEDS: Polyethylene Glycol 3350 17 GM PACKET GT ×2 (10:32→21:21)
[2024-11-22] MEDS: APIXABAN 5 MG TABLET GT ×2 (10:32→21:19)
[2024-11-22] MEDS: Pantoprazole Sodium 40 MG in 0.9% Normal Saline (100mL MB+) 100 ML 300 MG IV ×2 (10:33→21:30)
[2024-11-22 11:58] LABS: Allen Test Positive; Base Excess -7 mmol/L (-2 to +2); FI02 65.0; PEEP 8; PO2 71 mmHG (75-100); RR 14; SITE R Radial; SO2 88 % (95-99); Time Given 11:56:12
--- NOTE | 2024-11-22 12:05 | PN.RENAL_ITS ---
Subjective Subjective on ventilator Objective Data Objective Data Vital Signs: Vital Signs Temp Pulse Resp BP Pulse Ox O2 Del Method O2 Flow Rate 97.8 F 96 15 136/73 H 97 Mechanical Ventilator 2 11/22/24 10:00 11/22/24 11:35 11/22/24 11:35 11/22/24 11:00 11/22/24 11:35 11/22/24 11:00 11/12/24 12:52 FiO2 65 11/22/24 11:35 Oxygen Flow Rate (L/min) 2 Oxygen Delivery Method Mechanical Ventilator Weight: 108.9 kg Body Mass Index (BMI) 42.5 Intake & Output: Intake and Output for Last 24 Hours 11/20/24 11/21/24 11/22/24 23:59 23:59 23:59 Intake Total 2951.80 / 3226.08 3397.65 / 3678.89 1881.12 / 1881.12 Output Total 75 / 75 180 / 240 190 / 190 Balance 2876.80 / 3151.08 3217.65 / 3438.89 1691.12 / 1691.12 Lab / Micro Data 11/22/24 05:45 11/22/24 05:45 Labs: Laboratory Results - last 24 hr 11/19/24 09:15: Crossmatch See Detail 11/21/24 12:15: Hgb 8.6 L 11/21/24 21:37: POC Glucose 184 H 11/22/24 05:45: WBC 16.4 H, RBC 2.96 L, Hgb 8.4 L, Hct 26.2 L, MCV 88.5, MCH 28.4, MCHC 32.1, RDW Std Deviation 49.1 H, RDW Coeff of Beto 15.4 H, Plt Count 173, MPV 13.0 H, Neut % (Auto) Not Reportable, Absolute Neuts (auto) 14.8 H, A bsolute Lymphs (auto) 0.50 L, Total Counted 100, Neutrophils % (Manual) 89 H, Band Neutrophils % 1, Lymphocytes % (Manual) 3 L, Monocytes % (Manual) 1, Eosinophils % (Manual) 2, Metamyelocytes % 3 H, Myelocytes % 1 H, Platelet Estimate ADEQUATE, RBC Morphology NORM C+C, Sodium 136, Potassium 4.5, Chloride 102, Carbon Dioxide 18.9 L, Anion Gap 15, BUN 90 H, Creatinine 4.65 H, Estim Creat Clear Calc 17.57 L, Est GFR (MDRD) Non-Af 11 L, BUN/Creatinine Ratio 19.4, Glucose 141 H, Calcium 8.5 11/22/24 11:31: POC Glucose 146 H Micro: Microbiology 11/12/24 15:12 Blood Culture (Wb) - Anticubital Right Blood Culture - Final No growth in 5 days. 11/12/24 15:11 Blood Culture (Wb) - Left Hand Bacteria Detection (PCR) - Final Staphylococcus epidermidis mecA Resistance Marker 11/12/24 15:11 Blood Culture (Wb) - Left Hand Blood Culture - Final Coag Negative Staph Corynebacterium species 11/12/24 Unknown Sputum, Induced/Lukens Gram Stain - Final 11/12/24 Unknown Sputum, Induced/Lukens Respiratory Culture - Final Staphylococcus aureus Haemophilus influenzae 11/15/24 23:20 Gastric Fluid/Contents Gastric Occult Blood - Final 11/12/24 19:37 Mucosa - Nose Respiratory Panel (PCR) - Final ABG Data ABG results: ABG 11/22/24 11/22/24 08:39 11:53 Specimen Type GIANNA ART Sample Site R Brach R Radial pH 7.14 L* Bicarbonate Actual 21.8 L Total CO2 24 Base Excess -7 L O2 Saturation 88 L O2 % 55.0 65.0 ABG pCO2 64.4 H ABG pO2 71 L Chris Test Positive VBG pH 7.28 L VBG pO2 20 L VBG HCO3 23 VBG Total CO2 24 VBG O2 Sat (Calc) 25 L VBG Base Excess -4 L POC Mix VBG pCO2 Pt Tmp 49.2 Respiration Rate 24 14 O2 Delivery Device Adult Vent Adult Vent Vent Mode AC Tidal Volume 350.0 450.0 POC PEEP 8 8 Crit Call To/Read Back Yes Yes Blood Gas Notified Whom brown brown Blood Gas Notified Time 08:41:53 11:56:12 Radiography Diagnostic Testing: Radiology Impression Chest X-Ray 11/22/24 09:47 IMPRESSION: Endotracheal tube seen, with tip projecting in the T2 level. This has been withdrawn since the prior study. Left sided PICC line remains in place. Lungs are again hypoinflated, but interval worsening of pulmonary edema is noted. A right jugular central venous catheter is seen, with tip projecting near the expected junction of the SVC and right atrium. NO PNEUMOTHORAX is noted. No definite pleural effusion is appreciated. The cardiomediastinal silhouette is stable, without evidence of cardiomegaly. Partially visualized nasogastric tube again seen. Prior sternotomy noted. Reading Location: [place] [id number] Rhythm Strip Rhythm Strip: Sinus Rhythm Rate: 70 Ectopy: None Physical Exam Narrative on ventilator s1s2 no murmurs diminished breath sounds abdomen soft no pitting edema no cyanosis dean + nontunneled temporary HD catheter right IJ Assessment & Plan Assessment/Plan (1) Acute renal failure: PLAN: Baseline creatinine is normal although she had several episodes of ISA in the past, has not needed any HEMATOLOGY NURSE EDUCATOR. Renal ultrasound without any hydronephrosis. Urine analysis with some cells and protein but this is a Dean sample. She is oliguric. Echocardiogram with low ejection fraction, 35% history of ILD, superimposed pneumonia Respiratory failure requiring intubation - oliguric ISA likely ATN in the setting of above events. We will obtain renal serologies today. Blood pressure is acceptable, patient is not requiring any pressors right now. SCr up to 4.65 today, urine output only 180ml yesterday. Renal function worsening therefore non-tunneled HD catheter placed today and will start CRRT with goal net negative 150ml/hr as bp and hemodynamics allow. Per cumulative I&O patient is net +17L. Continue to monitor for renal recovery. Assessment and plan reviewed with Dr. Peacock.
[2024-11-22] MEDS: 0.9% Normal Saline 1,000 ML IV.SOLN. 1000 ML OPERA.SITE (12:37)
[2024-11-22] MEDS: PUREFLOW B SOLUTION 4K 5,000 ML BAG 9 BAG PF ×2 (12:43→18:08)
[2024-11-22 13:41] LABS: Allen Test Positive; Base Excess -7 mmol/L (-2 to +2); FI02 65.0; PEEP 5; PO2 80 mmHG (75-100); RR 12; SITE L Radial; SO2 90 % (95-99); Time Given 13:37:50
[2024-11-22] MEDS: Cisatracurium *PARALYTIC 100 MG in 0.9% Normal Saline (250mL Bag) 200 ML 32.7 MG CONT INF (14:20)
[2024-11-22 15:57] LABS: Allen Test Positive; Base Excess -5 mmol/L (-2 to +2); FI02 55.0; PEEP 8; PO2 89 mmHG (75-100); RR 14; SITE L Radial; SO2 95 % (95-99)
[2024-11-22 18:21] LABS: Hematocrit 26.5 % (37-47); Hemoglobin 8.2 g/dL (12.0-15.0); Mean Corp Hgb Conc 30.9 g/dL (32-36); Mean Corpuscular Volume 88.9 fL (81-99); Mean Platelet Vol. 12.7 fl (6.2-12.0); Platelet Count 165 K/mm3 (150-450); RBC Distribution Width CV 15.3 % (11.6-14.6); RBC Distribution Width SD 49.1 fl (35.1-43.9); Red Blood Count 2.98 M/mm3 (4.2-5.4); White Blood Count 17.3 K/mm3 (4.4-11.0)
[2024-11-22 18:55] LABS: Albumin, Serum 2.8 g/dL (3.5-5.0); Anion Gap 15 (5-15); BUN 68 mg/dL (4-19); BUN/Creat Ratio 20.4 RATIO (10-20); Calcium,Total 8.9 mg/dL (7.6-11.0); Carbon Dioxide 20.1 mmol/L (21.0-32.0); Chloride 102 mmol/L (98-108); Estimated Creatinine Clearance 24.39 ml/min (50-250); Glucose 169 mg/dL (70-99); Magnesium 2.0 mg/dL (1.5-2.2); Potassium 4.9 mmol/L (3.3-5.1)
[2024-11-22] MEDS: Dexmedetomidine 1,000 mcg in 0.9% NS 240 mL 35.8 MCG CONT INF (19:55)
[2024-11-22] MEDS: Cisatracurium *PARALYTIC 100 MG in 0.9% Normal Saline (250mL Bag) 200 ML 49 MG CONT INF (22:15)
[2024-11-23] VITALS: BP 116/69; PULSE 79; RESP 16; TEMP 36.6; O2SAT 95
[2024-11-23] MEDS: PUREFLOW B SOLUTION 4K 5,000 ML BAG 9 BAG PF (00:08)
[2024-11-23] MEDS: fentaNYL drip 100 ML 15 MCG CONT INF (00:21)
[2024-11-23 01:00] VITALS: BP 110/69; PULSE 76; RESP 16; TEMP 36.5; O2SAT 95
[2024-11-23 01:06] LABS: Hematocrit 25.9 % (37-47); Hemoglobin 8.2 g/dL (12.0-15.0); Mean Corp Hgb Conc 31.7 g/dL (32-36); Mean Corpuscular Volume 88.4 fL (81-99); Mean Platelet Vol. 12.7 fl (6.2-12.0); Platelet Count 172 K/mm3 (150-450); RBC Distribution Width CV 15.0 % (11.6-14.6); RBC Distribution Width SD 48.4 fl (35.1-43.9); Red Blood Count 2.93 M/mm3 (4.2-5.4); White Blood Count 15.6 K/mm3 (4.4-11.0)
[2024-11-23 01:39] LABS: Albumin, Serum 2.6 g/dL (3.5-5.0); Anion Gap 12 (5-15); BUN 53 mg/dL (4-19); BUN/Creat Ratio 20.0 RATIO (10-20); Calcium,Total 8.7 mg/dL (7.6-11.0); Carbon Dioxide 21.5 mmol/L (21.0-32.0); Chloride 103 mmol/L (98-108); Estimated Creatinine Clearance 30.83 ml/min (50-250); Glucose 119 mg/dL (70-99); Magnesium 1.8 mg/dL (1.5-2.2); Potassium 4.6 mmol/L (3.3-5.1)
[2024-11-23 02:00] VITALS: BP 111/68; PULSE 73; RESP 16; TEMP 36.3; O2SAT 96
[2024-11-23 02:41] VITALS: PULSE 74; RESP 16
[2024-11-23 02:42] VITALS: PULSE 81; RESP 16; O2SAT 95
[2024-11-23] MEDS: Dexmedetomidine 1,000 mcg in 0.9% NS 240 mL 35.8 MCG CONT INF (02:58)
[2024-11-23] MEDS: Cisatracurium *PARALYTIC 100 MG in 0.9% Normal Saline (250mL Bag) 200 ML 49 MG CONT INF (02:59)
[2024-11-23 03:00] VITALS: BP 108/66; PULSE 78; RESP 16; TEMP 36.1; O2SAT 94
[2024-11-23] MEDS: 0.9% Saline Lock 10 ML Syringe IV (03:09)
--- NOTE | 2024-11-23 04:02 | NURSING ---
CRRT discontinued and blood returned at 0315. Med flight arrived at 0330 to transport patient to [facility].
--- NOTE | 2024-11-23 05:00 | PCM.DC.SUM ---
Providers Date of Admission: 11/12/24 Primary Care Physician: Dr. Bill Dai MD Consultations 11/12/24 17:32 Consult: [facility] / Pulmonary Medicine Routine Consulting Provider: [facility]/Pulmonary Med Reason for Consult: AMS w/ acute resp failure EMERGENT Consult: No Notified: Yes Date Notified: 11/12/24 Time Notified: 14:49 Method of Notification: Text 11/13/24 09:08 Consult: Cardiology Routine Consulting Provider: Arcadio Morales Reason for Consult: elevated troponin EMERGENT Consult: No Notified: Yes Date Notified: 11/13/24 Time Notified: 09:08 Method of Notification: Verbal 11/16/24 00:19 Consult: Gastroenterology Routine Consulting Provider: Ke[facility] G[facility] Reason for Consult: Positive Gastric Occult EMERGENT Consult: No Notified: Yes Date Notified: 11/16/24 Time Notified: 07:36 Method of Notification: Text 11/19/24 13:26 Consult: Nephrology Routine Consulting Provider: Svetlana Clemens Reason for Consult: isa EMERGENT Consult: No Notified: Yes Date Notified: 11/19/24 Time Notified: 13:26 Method of Notification: Answering Service Reason For Visit: ACUTE RESPIRATORY FAILURE Diagnosis Discharge Diagnosis (1) PUD (peptic ulcer disease): Status: Acute Code(s): K27.9 - Peptic ulcer, site unspecified, unspecified as acute or chronic, without hemorrhage or perforation (2) HFrEF (heart failure with reduced ejection fraction): Status: Acute Code(s): I50.20 - Unspecified systolic (congestive) heart failure (3) Acute on chronic respiratory failure with hypoxemia: Status: Chronic Code(s): J96.21 - Acute and chronic respiratory failure with hypoxia (4) ABLA (acute blood loss anemia): Status: Acute Code(s): D62 - Acute posthemorrhagic anemia (5) Elevated troponin: Status: Acute Code(s): R79.89 - Other specified abnormal findings of blood chemistry Plan Acute on chronic hypoxic respiratory failure secondary to MRSA and haemophilus influenza pneumonia - Secondary to chronic interstitial lung disease with superimposed pneumonia - Antibiotics completed - Vent management per pulmonary medicine--> now required paralytics as there is significant vent dyssynchrony - Continue steroids 40 mg daily as ordered - Continue scheduled and as bronchodilators - Anticipate patient will need tracheostomy and PEG with discharge to LTAC once medically stable--> unable to do tracheostomy here therefore patient has been transferred to [facility] and has been accepted awaiting bed - Unable to diagnose with ARDS as patient does have echocardiogram with depressed EF - Chest x-ray from today shows significant volume overload - Requiring PEEP of 8 and FiO2 55% to maintain oxygen saturations Septic shock secondary to bacterial pneumonia - Shock resolved - Sepsis resolved - Monitor off antibiotics - Patient did require pressors as she was nonresponsive to fluid boluses on admission Metabolic acidosis - VBG shows an abnormal pH of 7.28 and serum bicarb is 18.9 -Suspect related to worsening renal function ISA secondary to ATN - Serum creatinine continues to trend up -Patient with significant anasarca and volume overload - Case was discussed with nephrology and plan is to start dialysis today -Currently on CRRT - Nephrology following - Repeat lab in a.m. Elevated troponin - Suspect related to bacterial pneumonia hypoxia Chronic normocytic anemia -Hemoglobin is relatively stable and I do suspect the drop has been related to her volume status which should improve with CRRT and fluid removal - Repeat CBC in a.m. Hyperglycemia - Likely reactive from stress and steroid use -Fasting sugar this morning stable at 140 - Continue Lantus 10 units but monitor blood sugar closely with renal dysfunction - Monitor blood sugar Leukocytosis -Still trending up -Urine culture is pending based on UA - If and if trends up again tomorrow we will consider repeat blood cultures and sputum culture - patient has completed antibiotic course and will continue to watch off antibiotics for now Takotsubo cardiomyopathy - Echocardiogram from 11/13/2020 shows apical ballooning with good contractility at the base - There is some question of LV apical thrombus - Continue apixaban for now -->may need to hold in the future depending on plans for tracheostomy -Fluid removal via dialysis at this point -Ultimate goal is initiation of goal-directed therapy however not appropriate at this time Upper GI bleed secondary to PUD - EGD done on 11/17/2024 and also was treated - Hemoglobin remained stable on apixaban - Monitor closely - Continue IV PPI but increase to twice daily Pulmonary hypertension - At this point seems to be mixed who group 2 and 3 - Diuresis per nephrology Hyperlipidemia - Continue home atorvastatin Depression - Continue home fluoxetine DVT prophylaxis - Continue apixaban for now CODE STATUS - Full code Disposition: - Patient will need tracheostomy and PEG tube. Per discussion with pulmonary critical care they would like her transferred to tertiary center to get this done in a timely matter and since this is a repeat tracheostomy it may be more difficult than typical. Patient has been transferred to [facility] and bed is pending Medications at Discharge Home Medications medroxyprogesterone 150 mg/mL intramuscular syringe 150 mg IM .[id number] control 03/15/16 albuterol sulfate 90 mcg/actuation aerosol inhaler 1 puff inhalation Q4H PRN Sob &/Or Wheezing 10/02/16 albuterol sulfate 2.5 mg/3 mL (0.083 %) solution for nebulization 2.5 mg (3 mL) inhalation Q4H PRN breathing #25 vials 04/15/19 fluoxetine 40 mg capsule 40 mg PO DAILY DEPRESSION 07/10/20 oxaprozin 600 mg tablet 600 mg PO BID PRN pain 07/10/20 lisinopril 30 mg tablet 30 mg PO DAILY blood pressure 11/06/23 montelukast 10 mg tablet 10 mg PO DAILY allergies 11/06/23 ranolazine 500 mg tablet,extended release,12 hr 500 mg PO BID chest pain 11/06/23 atorvastatin 20 mg tablet 20 mg PO DAILY cholesterol 12/29/23 pregabalin 300 mg capsule 300 mg PO Q12H nerve pain 12/29/23 ferrous gluconate 324 mg (38 mg iron) tablet 324 mg PO DAILY #30 tabs 01/01/24 budesonide-formoterol HFA 160 mcg-4.5 mcg/actuation aerosol inhaler (Symbicort) 2 puff inhalation DAILY 01/06/24 fluoxetine 20 mg tablet 20 mg PO DAILY 01/06/24 omeprazole 20 mg capsule,delayed release 20 mg PO DAILY 01/06/24 tizanidine 4 mg tablet 4 mg PO TID PRN muscle spasticity 01/14/24 baclofen 10 mg tablet 10 mg PO TID PRN muscle spasm 01/16/24 apixaban 5 mg (74 tabs) tablets in a dose pack (Eliquis DVT-PE Treat 30D Start) 5 mg PO BID #74 tabs 01/19/24 metoprolol tartrate 25 mg tablet 25 mg PO BID #60 tabs 01/19/24 Hospital Course Operations None Procedures 2-D Echocardiogram, Central line placement, Dialysis, EGD, EKG and Intubation Summary of Care Provided Hospital Course: Mrs. Patel is a 44-year-old female with multiple comorbidities who presented to the emergency department at [facility] on 11/12/2024 due to altered mental status and tachypnea. Patient had a prolonged hospitalization here in December due to acute hypoxic respiratory failure and pneumonia with ARDS. She was intubated for 6 days but was able to be extubated without issue. Prior to that hospitalization she had a prolonged hospitalization a outside facility that required tracheostomy placement and LTAC after discharge. She was able to be decannulated after that event. Patient lives by herself at baseline and her family called her for a welfare check on the day of presentation and they had not heard from her in a bit. As they could not get a hold of her EMS was called and when they arrived they found her to be confused and minimally responsive. On arrival to the emergency department she was found to be tachypneic and appeared to be in impending respiratory failure so she was intubated emergently by the ED physician. Postintubation CT showed progression of chronic interstitial scarring but no acute abnormalities. CT of the brain and C-spine were unremarkable. Pelvic x-rays showed no acute findings. ABG shortly after intubation showed a pH of 7.27 with a PO2 156 and a pCO2 of 38. She had marked leukocytosis on presentation with a white count of 21,000 serum bicarb of 16 with a creatinine of 2.57 (baseline about 1.0) her BUN was 42 and her lactic acid was 1.7. CPK was found to be 419. Toxicology and alcohol level remarkable. Cultures were obtained and she was placed on broad-spectrum antibiotics and admitted to the intensive care unit. It was noted that she had a recent hospitalization at [facility] in [place] from [id number] after she presented status post fall and had a left ankle fracture. ORIF was done at that time. Her Lasix was held due to worsening creatinine at the time of admission however relates her Lasix was resumed at the time of discharge. Broad-spectrum antibiotics were introduced with vancomycin and Zosyn. Cultures were obtained and while her blood cultures were positive 1 out of 2 bottles it was determined to be contaminant. Sputum culture grew out Staph aureus and haemophilus influenza. She was treated for 7-day course of antibiotics for this. She had a drop in her hemoglobin at which time a Gastroccult was performed and found to be unremarkable. GI was consulted and performed an EGD on 11/17/2024 at which time she was found to have bile in the esophagus, oozing gastric ulcers with pigmented material, nonbleeding duodenal ulcers with no stigmata of bleeding and was treated with heater probe. She was maintained on IV Protonix twice daily during her hospital course. Eliquis was held for short period of time but we are able to reinitiate it prior to discharge as there was concern that there might be an LV thrombus. Echocardiogram was performed due to respiratory failure on presentation along with cardiology consultation. Echocardiogram showed an EF of 35% with good wiliam of the LV base but poor contraction of the rest of the LV and a possible LV apical thrombus. Once she stabilized from a hemoglobin standpoint after her scope she was able to be reinitiated on Eliquis and her hemoglobin was monitored closely with noted stability. Unfortunately her renal function slowly worsened during her hospital course to the point where she was markedly volume overloaded and dialysis was initiated. It was initially was CVVHD for constant fluid removal. Dialysis cath was placed in the intensive care unit the day of discharge. Given her complexity with regards to her needs for trach and previous tracheostomy it was felt that she would be best served by transfer to tertiary center for management of this when she was medically appropriate. I do suspect that once her volume status is more euvolemic she will able to be trached. Her white count did trend up on repeated cultures urine culture was positive only for Jolanta. She was transferred to [facility] on 11/23/2024 early in the morning. Discharge diagnoses: Acute on chronic hypoxic respiratory failure MRSA pneumonia Haemophilus influenza pneumonia Septic shock secondary to bacterial pneumonia Metabolic acidosis ISA secondary to ATN Elevated troponin Acute on chronic normocytic anemia Upper GI bleed secondary to peptic ulcer disease Hyperglycemia-reactive Leukocytosis Takotsubo cardiomyopathy Pulmonary hypertension Pulmonary fibrosis Hyperlipidemia Depression Chronic pain Weight / BMI Weight Weight: 108.9 kg Body Mass Index (BMI) 42.5 ABG / Lab / Microbiology Data 11/23/24 00:15 11/23/24 00:15 Laboratory: Laboratory Results - last 24 hr 11/22/24 12:35: c-ANCA Antibody <1:20, Atypical p-ANCA <1:20, p-ANCA Antibody <1:20, Glomerular Base Memb Ab < 0.2, Complement C3 139, Complement C4 18, Tot Complement (CH50) > 60 Microbiology: Microbiology 11/20/24 16:00 Urine Catheter - Catheter Urine Culture - Final Jolanta albicans 11/12/24 15:12 Blood Culture (Wb) - Anticubital Right Blood Culture - Final No growth in 5 days. 11/12/24 15:11 Blood Culture (Wb) - Left Hand Bacteria Detection (PCR) - Final Staphylococcus epidermidis mecA Resistance Marker 11/12/24 15:11 Blood Culture (Wb) - Left Hand Blood Culture - Final Coag Negative Staph Corynebacterium species 11/12/24 Unknown Sputum, Induced/Lukens Gram Stain - Final 11/12/24 Unknown Sputum, Induced/Lukens Respiratory Culture - Final Staphylococcus aureus Haemophilus influenzae 11/15/24 23:20 Gastric Fluid/Contents Gastric Occult Blood - Final 11/12/24 19:37 Mucosa - Nose Respiratory Panel (PCR) - Final D/C Instructions DC O2, CPAP, BIPAP Needs Home O2 Discharge instructions: No Meaningful Use Info Meaningful Use Meaningful Use Diagnoses (Choose all that apply): None applicable Ischemic Stroke Statin Dosing Therapy Reference: STATIN DOSE THERAPY REFERENCE: * Patients > 75 years receive moderate or high dose statin therapy. * Patients 75 years or YOUNGER should receive HIGH intensity statin dose unless contraindicated. You will be required to document reason for non-treatment if statin daily dose does not meet guidelines. HIGH DOSE STATIN THERAPY DAILY Atorvastatin > than or = to 40 mg Rosuvastatin > than or = to 20 mg Amlodipine + Atorvastatin > than or = to 2.5/40 mg Ezetimibe + Simvastatin 10/80 mg Simvastatin 80mg Discharge Plan Admission Admit Date/Time: 11/12/24 14:46 Primary Reason for Your Visit: Shortness of breath/altered mental status Attending Provider: Marlee Gonzalez Primary Care Provider: Bill Dai Consulting Providers: Tamir Fisher; Andrew Wu; Bruno Tran; Armond Robertson; Deric Jonas; Micah Muñoz; Joshua Skinner; Malika Omalley; Jaylan Sandoval; Jaziel Lkae; Ryan Reyna; Claudia Fernandez; Olivier Cohn; Andreia Laureano; Devendra,Ranulfo; Benji Drew; Jens Groves; Isai Mondragon; Yancy Sarah; Theresa Talavera; Raoul Carmen; Herberth Nicole; Bill Valdes; Paras Sotelo; Arcadio Morales; Kenneth Javier; Tracy Gifford NP; Juan Miguel Diaz Discharge Orders/Prescriptions Prescriptions: No Action montelukast 10 mg tablet 10 mg PO DAILY lisinopril 30 mg tablet 30 mg PO DAILY ranolazine 500 mg tablet extended release 12 hr 500 mg PO BID medroxyprogesterone 150 MG/ML syringe 150 mg IM .[id number] Patient Comments: CONTROL albuterol sulfate 1 INHALER inhaler 1 puff INHALATION Q4H PRN (Reason: Sob &/Or Wheezing) Patient Comments: BREATHING albuterol sulfate 2.5 MG/3 ML solution for nebulization 2.5 mg INHALATION Q4H PRN Qty: 25 0RF Rx Instructions: Use q4 hours and PRN for wheezing fluoxetine 40 MG capsule 40 mg PO DAILY Patient Comments: PT TAKES 40MG AND 20MG TOGETHER TO EQUAL 60MG DOSE oxaprozin 600 MG tablet 600 mg PO BID PRN (Reason: pain) fluoxetine 20 mg tablet 20 mg PO DAILY Patient Comments: PT TAKES 40MG AND 20MG TOGETHER TO EQUAL 60MG DOSE budesonide-formoterol [Symbicort] 160-4.5 mcg/actuation HFA aerosol inhaler 2 puff inhalation DAILY omeprazole 20 mg capsule,delayed release(DR/EC) 20 mg PO DAILY tizanidine 4 mg tablet 4 mg PO TID PRN (Reason: muscle spasticity) baclofen 10 mg tablet 10 mg PO TID PRN (Reason: muscle spasm) metoprolol tartrate 25 mg Tablet 25 mg PO BID Qty: 60 2RF Eliquis DVT-PE Treat 30D Start 5 mg (74 tabs) tablets,dose pack 5 mg PO BID Qty: 74 0RF Rx Instructions: take 2 tablets (10mg) twice daily for the first 7 days, then continue with one tablet (5mg) twice daily. atorvastatin 20 mg tablet 20 mg PO DAILY Patient Comments: [NO ORIGINAL SIG] pregabalin 300 mg capsule 300 mg PO Q12H Patient Comments: [NO ORIGINAL SIG] ferrous gluconate 324 mg (38 mg iron) tablet 324 mg PO DAILY Qty: 30 0RF Referrals / Follow Up: Bill Dai MD [Primary Care Provider] - Disposition Disposition (needs filled in before D/C Order can be placed): [facility]
[2024-11-24 20:08] LABS: Complement CH50 > 60 U/mL (>41); Cytoplasmic Ab (C-ANCA) <1:20 titer (Neg:<1:20); Perinuclear Ab (P-ANCA) <1:20 titer (Neg:<1:20)
== END 2024-11-23 04:35 | disposition short-term general hospital (02) | DRG 720 ==
LOC: ED 16:17 → ICU 17:01
PROVIDERS: Family Medicine; Internal Medicine Critical Care Medicine; Internal Medicine Gastroenterology; Nurse Practitioner Adult Health; Admitting Provider Hospitalist; Emergency Provider Emergency Medicine; PCP Family Medicine; Visit Provider Internal Medicine
PROC: 0DJ08ZZ Inspection of Upper Intestinal Tract, Via Natural or Artificial Opening Endoscopic (ICD-10-PCS; CPT 43235; principal; 2024-11-17 10:25)
DX: A41.02 Sepsis due to Methicillin resistant Staphylococcus aureus (principal); N17.0 Acute kidney failure with tubular necrosis; R65.21 Severe sepsis with septic shock; G92.8 Other toxic encephalopathy; I50.23 Acute on chronic systolic (congestive) heart failure; J15.212 Pneumonia due to Methicillin resistant Staphylococcus aureus; G93.41 Metabolic encephalopathy; J96.21 Acute and chronic respiratory failure with hypoxia; J44.0 Chronic obstructive pulmonary disease with (acute) lower respiratory infection; E66.2 Morbid (severe) obesity with alveolar hypoventilation; N18.32 Chronic kidney disease, stage 3b; G40.909 Epilepsy, unspecified, not intractable, without status epilepticus; I13.0 Hypertensive heart and chronic kidney disease with heart failure and stage 1 through stage 4 chronic kidney disease, or unspecified chronic kidney disease; F32.A Depression, unspecified; I27.20 Pulmonary hypertension, unspecified; D50.9 Iron deficiency anemia, unspecified; Z95.2 Presence of prosthetic heart valve; K25.4 Chronic or unspecified gastric ulcer with hemorrhage; I24.89 Other forms of acute ischemic heart disease; F60.3 Borderline personality disorder; J14 Pneumonia due to Hemophilus influenzae; A41.3 Sepsis due to Hemophilus influenzae; M62.82 Rhabdomyolysis; S00.83XA Contusion of other part of head, initial encounter; M79.7 Fibromyalgia; K21.9 Gastro-esophageal reflux disease without esophagitis; F41.9 Anxiety disorder, unspecified; F17.210 Nicotine dependence, cigarettes, uncomplicated; S20.212A Contusion of left front wall of thorax, initial encounter; E87.5 Hyperkalemia; D62 Acute posthemorrhagic anemia; J84.10 Pulmonary fibrosis, unspecified; E78.5 Hyperlipidemia, unspecified; J44.1 Chronic obstructive pulmonary disease with (acute) exacerbation; E87.20 Acidosis, unspecified; I51.3 Intracardiac thrombosis, not elsewhere classified; Z85.831 Personal history of malignant neoplasm of soft tissue; R53.81 Other malaise; Z96.641 Presence of right artificial hip joint; G89.4 Chronic pain syndrome; K26.9 Duodenal ulcer, unspecified as acute or chronic, without hemorrhage or perforation; T50.1X5A Adverse effect of loop [high-ceiling] diuretics, initial encounter; R73.9 Hyperglycemia, unspecified; T38.0X5A Adverse effect of glucocorticoids and synthetic analogues, initial encounter; V47.5XXA Car driver injured in collision with fixed or stationary object in traffic accident, initial encounter; T50.3X5A Adverse effect of electrolytic, caloric and water-balance agents, initial encounter; Z86.73 Personal history of transient ischemic attack (TIA), and cerebral infarction without residual deficits; Z86.711 Personal history of pulmonary embolism; Z79.01 Long term (current) use of anticoagulants; Z79.51 Long term (current) use of inhaled steroids; Z86.718 Personal history of other venous thrombosis and embolism; Z68.36 Body mass index [BMI] 36.0-36.9, adult; Z87.81 Personal history of (healed) traumatic fracture; Z96.89 Presence of other specified functional implants; Z79.899 Other long term (current) drug therapy; Z87.74 Personal history of (corrected) congenital malformations of heart and circulatory system
CPT/HCPCS: 31500; 31720; 36415; 36569; 36600; 51702; 70450; 71045; 71250; 72125; 72170; 76770; 80048; 80053; 80069; 80202; 80307; 81001; 81025; 82077; 82271; 82550; 82570; 82607; 82728; 82747; 82803; 82962; 83520; 83540; 83550; 83605; 83735; 83880; 84100; 84145; 84300; 84443; 84478; 84484; 85014; 85018; 85025; 85027; 85610; 86037; 86160; 86162; 86850; 86900; 86901; 87040; 87070; 87077; 87086; 87088; 87149; 87186; 87205; 87633; 90947; 93005; 93306; 94002; 94003; 94640; 97802; 97803; 99252; 99285; C1889; P9016; Q9957; A4216; C1752; C8929; G0463; J0696; J1938; J2916